=== PATIENT | female | born 1975 | race American Indian/Alaskan Native ===

== ENCOUNTER 2016-09-25 08:38 | Inpatient (IN) | payer MEDICARE ==
--- NOTE | 2016-09-20 10:50 | Anesthesia Consultation ---
Anesthesia Consult and Med Hx Date of service: 09/20/16 - Airway Anesthetic Teeth Evaluation: Good ROM Head & Neck: Adequate Mental/Hyoid Distance: Adequate Mallampati Class: Class III Intubation Access Assessment: Possibly Difficult - Pre-Operative Health Status ASA Pre-Surgery Classification: ASA3 Proposed Anesthetic Plan: Epidural, Spinal - Pulmonary Hx Smoking: Yes (1PPD x 5 years) Hx Asthma: No COPD: Yes Hx Pneumonia: Yes Hx Sleep Apnea: No - Cardiovascular System Hx Hypertension: No Hx Coronary Artery Disease: No - Central Nervous System Hx Seizures: No CVA: No Hx Back Pain: No Hx Psychiatric Problems: No - Gastrointestinal Hx Gastroesophageal Reflux Disease: No (Nausea with pain meds) - Endocrine Hx Renal Disease: No Hx Thyroid Disease: Yes (ENLARGED, NOT ON MEDS) - Hematic Hx Anemia: Yes Hx Sickle Cell Disease: Yes (LAST CRISIS JULY 24) - Other Systems Hx Cancer: No Hx Obesity: Yes (BMI 44, MORBID) - Additional Comments Anesthesia Medical History Comments: patient is on the pain meds for 3 years for sickle cell crisises and hip pain. Takes anti-herpes meds
[2016-09-20 11:25] LABS: Basophils % (Auto) 0.7 % (0.0-1.8); Eosinophils % (Auto) 2.5 % (0.0-4.3); Hemoglobin 11.7 gm/dl (10.1-14.3); Mean Corpuscular HGB Conc 32 % (30-34); Mean Corpuscular Volume 75 fl (79-97); Platelet Count 245 K/mm3 (140-440); Red Blood Count 4.79 M/mm3 (3.65-5.03); Red Cell Distribution Width 16.6 % (13.2-15.2); White Blood Count 11.7 K/mm3 (4.5-11.0)
[2016-09-20 11:26] LABS: Mean Corpuscular Hemoglobin 24 pg (28-32)
[2016-09-20 11:35] LABS: INR 1.14 (0.87-1.13)
[2016-09-20 11:36] LABS: Partial Thromboplastin Time 31.1 Sec. (24.2-36.6)
[2016-09-20 11:50] LABS: Alanine Aminotransferase 14 units/L (7-56); Albumin 3.9 g/dL (3.9-5); Albumin/Globulin Ratio 1.2 %; Alkaline Phosphatase 89 units/L (35-129); Anion Gap 18 mmol/L; Blood Urea Nitrogen 10 mg/dL (7-17); Calcium 9.2 mg/dL (8.4-10.2); Carbon Dioxide 22 mmol/L (22-30); Chloride 103.5 mmol/L (98-107); Glucose 115 mg/dL (65-100); Potassium 3.7 mmol/L (3.6-5.0); Sodium 140 mmol/L (137-145); Total Protein 7.1 g/dL (6.3-8.2)
--- NOTE | 2016-09-24 11:53 | Admit Criteria Form ---
Admission Criteria Documentation: AMBULATORY SURGERY EXCEPTION CRITERIA Ambulatory Surgery Exception Criteria ( Place 'X' for any and all applicable criteria): Surgery or procedure performed on ambulatory basis may require inpatient stay for[A] ANY ONE of the following(1)(2)(3)(4)(5)(6)(7)(8)(9): [X] I. A preoperative situation, condition, or finding that warrants inpatient stay as indicated by ANY ONE of the following: [] a) Inpatient care needed because of severity of a disease or condition rather than the surgery (eg, severe cardiac or respiratory disease, severe infection) (15) (16 ) (17) (18) [] b) Emergent procedure (eg, angioplasty for acute ischemia)(19) [] c) Complex surgical approach or situation as indicated by ANY ONE of the following(3): [] i) Open approach needed instead of usual endoscopic, transcatheter, or other less invasive procedure [] ii) Difficult approach because of previous operation [] iii) Airway monitoring required after open neck procedures(20)(21) [] iv) Large mass requiring unusually extensive dissection [] v) Additional complicating feature requiring inpatient care (eg, drain management)(22(23): [X] d) Major surgery in a pt with high anesthetic risk as indicated by ANY ONE of the following (2)(3)(5)(7)(8): [X] i) ASA risk class III or higher (severe systemic disease impairing function) [D] [] ii) Advanced age (eg, older than 85 years)(14)(24) [] iii) Symptomatic heart failure(25) [] iv) Symptomatic asthma or COPD(8)(21) [] v) Morbid obesity with hemodynamic or respiratory problems(20)( 21)(26)(27) [] vi) Obstructive sleep apnea(20)(21) [] vii) Former premature infants who are younger than 60 weeks [] viii) High risk for severe postoperative abnormalities (eg, severe postoperative hypocalcemia after parathyroidectomy for severe hyperparathyroidism)(27)( 28) [] ix) Unstable angina(25) [] e) Drug-related risk requiring inpatient stay as indicated by ANY ONE of the following(5)(10)(14)(32)(33) [] i) Procedure requires discontinuing drugs or other therapy (eg , antiarrhythmic medication, antiseizure medication), which necessitates inpatient observation or treatment.(18)(31) [] ii) Major surgery and high risk drug use as indicated by ANY ONE of the following: [] 1) Active abuse of cocaine or similar drug [] 2) Monoamine oxidase inhibitor use [] 3) Other drug identified as posing risk [] f) Inadequate outpatient care situation as indicated by ANY ONE of the following(5)(10)(14)(32)(33) [] i) Patient lives remote from medical facility and procedure has urgent complication potential, and temporary nearby residence cannot be arranged [] ii) Patient will have postprocedure incapacitation and inadequate assistance at home, or alternative level of care cannot be arranged. [] iii) Patient will have long general anesthesia or procedure side effect resolution time, and competent person to stay with patient on first postoperative night at home or alternative level of care cannot be arranged. []iv) Other inadequate outpatient situation that cannot be handled by other means [] II. A perioperative event, condition, or finding that warrants inpatient stay as indicated by ANY ONE of the following (1)(2)(3): [] a) Inadequate physiologic recovery: cardiovascular, respiratory, or hemodynamic status not normal or near preoperative baseline(18) [] b) Hemodynamic instability [] c) Patient not alert with near normal or baseline mental status [] d) Temperature not normal or as expected and not appropriate for outpatient treatment of condition [] e) Ambulatory or appropriate activity level status not yet achieved post procedure [E](34)(35)(36) [] f) Operative site not appropriate (eg, unexpected or excessive drainage or bleeding) [] g) Postoperative effects not resolved or adequately managed (eg, significant pain or vomiting not appropriate for outpatient or next level of care)(10)(12) [] h) Complicating features requiring inpatient care as indicated by ANY ONE of the following(37): [] i) Severe complications of procedure (eg, bowel injury, airway compromise, vascular injury,severe hemorrhage) [] ii) Extensive (eg, dissection far beyond usual scope of procedure ) or prolonged (eg, 120 minutes beyond usual) surgery needed requiring inpatient postoperative care [] iii) Conversion to an open or complex procedure that requires inpatient care (eg, open vs laparoscopic cholecystectomy, abdominal vs vaginal hysterectomy)(38) [] iv) Comorbid condition or test result identified during or post procedure that requires inpatient care (7) [] v) Malignant hyperthermia(30) [] vi) Other complicating feature requiring inpatient care(22)(23) Inpatient stay may be needed until ALL of the following are present (1)(2)(3)(4) (5)(6)(10)(14)(33)(40): []a) Physiologic recovery: cardiovascular, respiratory, and hemodynamic status normal or near preoperative baseline []b) Hemodynamic stability []c) Patient alert, with near normal or baseline mental status []d) Temperature appropriate: patient afebrile or temperature appropriate for outpt treatment of condition []e) Activity level appropriate: ambulatory or appropriate activity level post procedure []f) Operative site appropriate as indicated by ALL of the following: []i) Site dry or with expected drainage []ii) Any blood noted is as expected for procedure. []g) Postoperative effects resolved or managed as indicated by ALL of the following: []i) Pain management appropriate for outpatient (or next level of) care(10) []ii) Minimal nausea and vomiting: if present, successfully treated with oral medication(12) []iii) Headache, dizziness, or drowsiness (if present) are mild. []h) Voiding status acceptable as indicated by ANY ONE of the following: []i) Voiding spontaneously []ii) No voiding but instructions given for follow-up in 6 to 8 hours []iii) Urinary catheter in place, and instructions given for follow-up []i) Complicating features requiring inpatient care manageable at a lower level of care(37) []j) Comorbid conditions manageable at a lower level of care(37) The original [employer] content created by [employer] has been revised. The portions of the content which have been revised are identified through the use of italic text or in bold, and [facility] [employer] has neither reviewed nor approved the modified material. All other unmodified content is copyright [employer]. Please see references footnoted in the original [employer] edition 2016 Admission Criteria Met: Yes
--- NOTE | 2016-09-24 17:17 | History and Physical Report ---
History of Present Illness Date of examination: 09/24/16 Date of admission: 09/25/16 Chief complaint: 41-year-old with left hip pain, groin pain duration year, progressively worsening. Evaluation confirming avascular necrosis with DJD. Being admitted for total hip arthroplasty. Past History Past Medical History: anemia Medications and Allergies Allergies Allergy/AdvReac Type Severity Reaction Status Date / Time No Known Allergies Allergy Unverified 10/13/13 13:21 Home Medications Medication Instructions Recorded Confirmed Last Taken Type Folic Acid [Folvite] 1 mg PO QDAY 10/13/13 09/18/16 08/15/14 History oxyCODONE /ACETAMINOPHEN [Percocet 1 tab PO Q6HR PRN #10 tablet 10/13/1308/15/14 Rx 5/325 mg] Promethazine [Phenergan] 25 mg PO Q6H PRN 08/16/14 09/18/16 08/15/14 History valACYclovir [Valtrex] 500 mg PO DAILY 08/16/14 09/18/16 08/15/14 History Active Meds: Active Medications Celecoxib (Celebrex) 200 mg PO PREOP NR Stop: 09/25/16 23:59 Famotidine (Pepcid) 20 mg IV PREOP NR Stop: 09/25/16 23:59 Gabapentin (Neurontin) 300 mg PO PREOP NR Stop: 09/25/16 23:59 Vancomycin HCl (Vancomycin/Ns 1 Gm/250 Ml) 1 gm in 250 mls @ 166.667 mls/hr IV PREOP NR PRN Reason: Protocol Stop: 09/25/16 23:00 Sodium Chloride (Nacl 0.9% 1000 Ml) 1,000 mls @ 125 mls/hr IV DIRECT [facility] Stop: 09/25/16 23:59 Midazolam HCl (Versed) 2 mg IV PREOP NR Stop: 09/25/16 23:59 Scopolamine (Transderm-Scop) 1 each TD PREOP NR Stop: 09/25/16 23:59 Review of Systems All systems: negative Exam - Constitutional General appearance: Present: no acute distress, well-nourished - EENT Eyes: Present: PERRL ENT: hearing intact, clear oral mucosa - Neck Neck: Present: supple, normal ROM - Respiratory Respiratory effort: normal Respiratory: bilateral: CTA - Cardiovascular Heart Sounds: Present: S1 & S2. Absent: rub, click - Extremities Extremities: pulses symmetrical, No edema Extremity abnormal: other (Left left hip with painful flexion, 80. Pain with flexion adduction, internal rotation. Pain along the anterior hip and exercise , no leg length inequality, abductor strength grade 5. No neurovascular deficit.) Peripheral Pulses: within normal limits - Abdominal General gastrointestinal: Present: soft, non-tender, non-distended, normal bowel sounds Female genitourinary: Present: normal - Integumentary Integumentary: Present: clear, warm, dry - Musculoskeletal Musculoskeletal: gait normal, strength equal bilaterally - Psychiatric Psychiatric: appropriate mood/affect, intact judgment & insight - Neurologic Neurologic: CNII-XII intact, moves all extremities Results - Labs CBC & Chem 7: 09/20/16 10:35 09/20/16 10:35 Assessment and Plan - Patient Problems (1) Arthritis of left hip Status: Chronic Plan to address problem: left total hip arthroplasty (2) Avascular necrosis of bone of left hip Status: Chronic Plan to address problem: total hip arthroplasty left
[~2016-09-25 08:38] MED LIST: NACL 0.9% 1000 ML 1,000 ML IV SCH; NACL 0.9% IR ONE; NEOSPORIN GU IR ONE; NEURONTIN PO NR; PEPCID IV NR; TRANSDERM-SCOP TD NR; VANCOMYCIN/NS 1 GM/250 ML 1 GM/250 ML BAG IV NR; VERSED IV NR
[2016-09-25] MEDS ORDERED: XYLOCAINE MPF 2% ONE (10:51)
[2016-09-25] MEDS ORDERED: ZOFRAN ONE (10:51)
[2016-09-25] MEDS ORDERED: DILAUDID ONE (10:52)
[2016-09-25] MEDS ORDERED: DIPRIVAN 10 MG/ML IV ONE (10:52)
[2016-09-25] MEDS ORDERED: MORPHINE ONE (10:59)
[2016-09-25] MEDS ORDERED: DECADRON ONE (10:59)
[2016-09-25] MEDS ORDERED: MARCAINE-EPI 0.25%-1:200,000 INFILTRATI ONE (10:59)
[2016-09-25] MEDS ORDERED: CLONIDINE 1,000 MCG/10 ML VIAL EP ONE (10:59)
[2016-09-25] MEDS ORDERED: ACD-A 500 ML IV ONE (12:10)
[2016-09-25] MEDS ORDERED: ACD-A IV ONE (12:18)
[2016-09-25] MEDS ORDERED: NACL 0.9% IR ONE ×2 (12:18)
[2016-09-25] MEDS ORDERED: NEOSPORIN GU IR ONE (12:18)
[2016-09-25] MEDS ORDERED: ePHEDrine SULFATE ONE ×2 (12:47→13:40)
[2016-09-25] MEDS ORDERED: NACL 0.9% 1000 ML 2,000 ML ONE (13:54)
--- NOTE | 2016-09-25 14:16 | Procedure Note ---
Date of procedure: 09/25/16 Pre-op diagnosis: AVBN/DJD left hip Post-op diagnosis: same Procedure: Left total hip/[place] non cemented Anesthesia: GETA, regional Surgeon: KENDALL LARSON Estimated blood loss: other (300ml/ 125ml packed cells to pt) Pathology: list Specimen disposition: to lab Condition: stable Disposition: PACU
--- NOTE | 2016-09-25 14:45 | Post Anesthesia Evaluation ---
- Post Anesthesia Evaluation Patient Participated: Yes Airway Patent: Yes Stable Respiratory Function: Yes Nausea/Vomiting: No Temp > 96.8F: Yes Pain Manageable: Yes Adequeate Hydration: Yes Anesthesia Complications: No Block Receding Appropriately: Yes Patient on Ventilator: No
--- NOTE | 2016-09-25 15:38 | XRay Report ---
Operative left hip: AP view demonstrates a total hip replacement. The acetabular and femoral components appear well positioned. No apparent complication noted.
--- NOTE | 2016-09-25 16:20 | Operative Report ---
PREOPERATIVE DIAGNOSES: Degenerative joint disease, left hip, avascular necrosis, stage 3-4. POSTOPERATIVE DIAGNOSES: Degenerative joint disease, left hip, avascular necrosis, stage 3-4. OPERATIVE PROCEDURE: Left hip total hip arthroplasty, Sharif, noncemented. SURGEON: Mihaela Childs MD WOOD MACHINIST: Stephanie Rhaodes CSA. ANESTHESIA: Spinal with general. BLOOD LOSS: Approximately 300 mL of which 125 mL packed cells to the patient using the Cell [employer] system. PROCEDURE IN DETAIL: The patient was taken to surgery suite, satisfactory analgesia obtained with spinal anesthetic supplemented with general sedation and the patient was positioned over the lateral position. Left hip area prepped and satisfactorily draped. The correct patient, procedure, and sites were confirmed. Incision was made starting at a 0.5 cm distal to the tip of the greater trochanter incision towards the posterior inferior iliac spine. Incision was deepened to the subcutaneous and the gluteus was split and was retracted proximally and distally. Joint capsule was then incised along the trochanteric line and capsulotomy was done, the hip joint was identified and was dislocated posteriorly. Femoral head appeared with cartilage flap avulsed with stage 4 changes to the femoral head and with superimposed DJD. The femoral head was resected at 0.1 cm proximal to the lesser trochanter. Medullary canal was reamed and broached. The proximal canal appeared extremely narrow; therefore, using the [employer] flexible reamer, the medullary canal was reamed to 10 mm diameter as to allow the distal tip of the femoral stem. Canal was then broached to press fit size 5 which appeared giving optimal fit. The acetabulum was visualized, labrum was excised and the acetabulum was reamed to subchondral bone using progressively increasing in size reamers, last reaming carried out at50 mm diameter, which appeared giving subchondral reaming. Following irrigation of the wound, a 50 mm acetabular shell was press fitted at approximately 45 degree abduction and 20 degree anteversion. Through the superior quadrant, two drill holes were made, cancellous screw size 6.5 mm diameter length 30 and 25 mm each were applied thereby stabilizing the acetabular shell. This was then coupled on an acetabular liner with high density polyethylene to provide 36 mm inside diameter and 5 degree posterosuperior augmentation and was locked in place. The trial femoral component was placed. Hip was reduced using the 36 mm 0 neck length head which appeared giving equalization of leg length and appeared stable both anteriorly and posterior. The trial head was then exchanged for a ceramic head, 36 mm diameter, 0 neck length and the hip was then reduced. Following irrigation, the wound was closed in layers in the standard fashion using 0 Vicryl, 2-0 Vicryl, and berta. At the completion of procedure, counts were accurate. Total blood loss approximately 300 mL of which 125 mL packed cell to the patient using the Cell Sa[employer] system. JOB# [id number] NATALIYA/GOMEZ NEVAREZ
[2016-09-25] MEDS ORDERED: MORPHINE IV PRN ×2 (16:46)
[2016-09-25] MEDS ORDERED: SODIUM CHLORIDE FLUSH SYRINGE 10 ML IV PRN (16:46)
[2016-09-25] MEDS ORDERED: PHENERGAN PR PRN (16:46)
[2016-09-25] MEDS ORDERED: AMBIEN PO PRN (16:46)
[2016-09-25] MEDS: DILAUDID IV PRN (17:51)
[2016-09-25] MEDS: BENADRYL IV PRN (17:51)
[2016-09-25] MEDS: ZOFRAN IV PRN (17:52)
[2016-09-25] MEDS: ANCEF/NS 1 GM/50 ML 1 GM/50 ML BAG IV SCH (17:52)
[2016-09-25] MEDS: ASPIRIN PO SCH (21:51)
[2016-09-25] MEDS: COLACE PO SCH (21:51)
--- NOTE | 2016-09-25 22:52 | Consultation ---
History of Present Illness - Reason for Consult Consult date: 09/25/16 SCD/pain crisis/post surgical Requesting physician: KENDALL LARSON - History of Present Illness Thank you for this consult, patient seen/examined, record reviewed, case d/w patient.. she is s/p hip surgery. for avascular necrosis. She has hx beta thallasemia major. Past History Past Medical History: anemia Social history: no significant social history Family history: no significant family history Medications and Allergies Allergies Allergy/AdvReac Type Severity Reaction Status Date / Time No Known Allergies Allergy Unverified 10/13/13 13:21 Home Medications Medication Instructions Recorded Confirmed Last Taken Type Folic Acid [Folvite] 1 mg PO QDAY 10/13/13 09/18/16 09/18/16 History oxyCODONE /ACETAMINOPHEN [Percocet 1 tab PO Q6HR PRN #10 tablet 10/13/1309/18/16 Rx 5/325 mg] Promethazine [Phenergan] 25 mg PO Q6H PRN 08/16/14 09/18/16 09/18/16 History valACYclovir [Valtrex] 500 mg PO DAILY 08/16/14 09/18/16 09/18/16 History Active Meds: Active Medications Acetaminophen (Tylenol) 650 mg PO Q4H PRN PRN Reason: Pain MILD(1-3)/Fever >100.5/PALACIOS Aspirin (Aspirin) 325 mg PO BID [facility] Last Admin: 09/25/16 21:51 Dose: 325 mg Celecoxib (Celebrex) 100 mg PO BID [facility] Last Admin: 09/25/16 21:50 Dose: 100 mg Diphenhydramine HCl (Benadryl) 12.5 mg IV Q4H PRN PRN Reason: Itching Last Admin: 09/25/16 17:51 Dose: 12.5 mg Docusate Sodium (Colace) 100 mg PO BID [facility] Last Admin: 09/25/16 21:51 Dose: 100 mg Enoxaparin Sodium (Lovenox) 40 mg SUB-Q QDAY [facility] Folic Acid (Folvite) 1 mg PO QDAY [facility] Hydromorphone HCl (Dilaudid) 2 mg IV Q4HR PRN PRN Reason: Severe Pain Last Admin: 09/25/16 17:51 Dose: 2 mg Sodium Chloride (Nacl 0.9% 1000 Ml) 1,000 mls @ 125 mls/hr IV DIRECT SADAF Stop: 09/25/16 23:59 Last Admin: 09/25/16 10:50 Dose: 125 mls/hr Cefazolin Sodium (Ancef/Ns 1 Gm/50 Ml) 1 gm in 50 mls @ 100 mls/hr IV Q8H [facility] Stop: 09/26/16 01:15 Last Admin: 09/25/16 17:52 Dose: 100 mls/hr Ketorolac Tromethamine (Toradol) 30 mg IV Q6H PRN PRN Reason: Pain, Moderate (4-6) Stop: 09/30/16 16:45 Multivitamins (Theragran Tab) 1 each PO QDAY [facility] Ondansetron HCl (Zofran) 4 mg IV Q8H PRN PRN Reason: Nausea And Vomiting Last Admin: 09/25/16 17:52 Dose: 4 mg Oxycodone HCl (Oxycontin) 10 mg PO Q12HR [facility] Promethazine HCl (Phenergan) 25 mg [place] Q6H PRN PRN Reason: Nausea And Vomiting Last Admin: 09/25/16 22:05 Dose: 25 mg Sodium Chloride (Sodium Chloride Flush Syringe 10 Ml) 10 ml IV PRN PRN PRN Reason: LINE FLUSH Valacyclovir HCl (Valtrex) 500 mg PO DAILY [facility] Zolpidem Tartrate (Ambien) 5 mg PO QHS PRN PRN Reason: Sleep Review of Systems Constitutional: chronic pain Breasts: deferred Musculoskeletal: low back pain Exam - Constitutional Vitals: Temp Pulse Resp BP Pulse Ox 98.1 F 97 H 18 98/68 97 09/25/16 19:35 09/25/16 19:35 09/25/16 19:35 09/25/16 19:35 09/25/16 22:05 General appearance: Present: mild distress, well-nourished - EENT Eyes: Present: PERRL ENT: hearing intact, clear oral mucosa - Neck Neck: Present: supple, normal ROM - Respiratory Respiratory effort: normal Respiratory: bilateral: CTA - Cardiovascular Heart Sounds: Present: S1 & S2. Absent: rub, click - Extremities Extremities: pulses symmetrical, No edema Peripheral Pulses: within normal limits - Abdominal General gastrointestinal: Present: soft, non-tender, non-distended, normal bowel sounds Female genitourinary: Present: deferred - Rectal Rectal Exam: deferred - Integumentary Integumentary: Present: clear, warm, dry - Musculoskeletal Musculoskeletal: gait normal, strength equal bilaterally - Psychiatric Psychiatric: appropriate mood/affect, intact judgment & insight - Neurologic Neurologic: CNII-XII intact, moves all extremities Results - Labs CBC & Chem 7: 09/20/16 10:35 09/20/16 10:35 Assessment and Plan - Patient Problems (1) Arthritis of left hip Current Visit: Yes Status: Chronic Plan to address problem: Follow post surgical management. (2) Avascular necrosis of bone of left hip Current Visit: Yes Status: Chronic Plan to address problem: Post surgical pain management., post surgical anticoagulation.
[2016-09-25] MEDS: TORADOL IV PRN (23:34)
[2016-09-26] MEDS: ANCEF/NS 1 GM/50 ML 1 GM/50 ML BAG IV SCH (00:32)
[2016-09-26] MEDS: BENADRYL IV PRN ×2 (03:54→23:26)
[2016-09-26 04:48] LABS: Hemoglobin 8.9 gm/dl (10.1-14.3)
[2016-09-26 05:09] LABS: Anion Gap 18 mmol/L; BUN/Creatinine Ratio 14.28; Blood Urea Nitrogen 10 mg/dL (7-17); Calcium 7.6 mg/dL (8.4-10.2); Carbon Dioxide 20 mmol/L (22-30); Chloride 104.9 mmol/L (98-107); Glucose 129 mg/dL (65-100); Potassium 4.5 mmol/L (3.6-5.0); Sodium 138 mmol/L (137-145)
[2016-09-26] MEDS: NACL 0.9% 1000 ML 1,000 ML IV SCH ×4 (06:05→17:42)
[2016-09-26] MEDS: OxyCONTIN PO SCH ×2 (07:47→10:00)
--- NOTE | 2016-09-26 08:03 | Progress Note ---
Assessment and Plan pOST OP 1 ALERT ORIENTATED IN nad WOUND OK, CHEST CLEAR, SOFT ABDOMEN DOING WELL Subjective Date of service: 09/26/16 Objective Vital signs: Vital Signs - 12hr 09/25/16 09/25/16 09/25/16 21:15 22:00 22:05 Temperature Pulse Rate [ Right] Respiratory Rate Blood Pressure [Right Arm] O2 Sat by Pulse 97 95 97 Oximetry 09/26/16 07:49 Temperature 98 F Pulse Rate [ 52 L Right] Respiratory 18 Rate Blood Pressure 93/52 [Right Arm] O2 Sat by Pulse 99 Oximetry - Labs CBC & BMP: 09/26/16 04:26 09/26/16 04:26 Labs: Abnormal lab results 09/26/16 09/26/16 Range/Units 04:26 04:26 Hgb 8.9 L (10.1-14.3) gm/dl Hct 28.0 L (30.3-42.9) % Carbon Dioxide 20 L (22-30) mmol/L Glucose 129 H (65-100) mg/dL Calcium 7.6 L (8.4-10.2) mg/dL
[2016-09-26] MEDS: THERAGRAN Tab PO SCH (10:19)
[2016-09-26] MEDS: ASPIRIN PO SCH ×2 (10:19→23:28)
[2016-09-26] MEDS: FOLVITE PO SCH (10:20)
[2016-09-26] MEDS: COLACE PO SCH ×2 (10:20→23:29)
[2016-09-26] MEDS: LOVENOX SUB-Q SCH (10:22)
--- NOTE | 2016-09-26 10:57 | Progress Note ---
Subjective Date of service: 09/26/16 Interval history: 1st POD after total hip arthroplasty Patient is in the bed, relatively comfortable. Pain is mostly controlled with pain meds. Prepare to be ambulated. No nausea or vomiting. No anesthesia complications Objective - Constitutional Vitals: Vital Signs - 12hr 09/26/16 09/26/16 07:49 08:00 Temperature 98 F 98.6 F Pulse Rate [ 52 L 94 H Right] Respiratory 18 18 Rate Blood Pressure 93/52 88/60 [Right Arm] O2 Sat by Pulse 99 95 Oximetry - Labs CBC & Chem 7: 09/26/16 04:26 09/26/16 04:26 Labs: Abnormal lab results 09/26/16 09/26/16 Range/Units 04:26 04:26 Hgb 8.9 L (10.1-14.3) gm/dl Hct 28.0 L (30.3-42.9) % Carbon Dioxide 20 L (22-30) mmol/L Glucose 129 H (65-100) mg/dL Calcium 7.6 L (8.4-10.2) mg/dL
--- NOTE | 2016-09-26 13:34 | Consultation ---
History of Present Illness - Reason for Consult Consult date: 09/26/16 - History of Present Illness Patient seen/examined, labs reviewed, case d/w her. Will try her port for use. will also bolus NS, and maintenance fluid to keep BP up. Past History Past Medical History: anemia Social history: no significant social history Family history: no significant family history Medications and Allergies Allergies Allergy/AdvReac Type Severity Reaction Status Date / Time No Known Allergies Allergy Unverified 10/13/13 13:21 Home Medications Medication Instructions Recorded Confirmed Last Taken Type Folic Acid [Folvite] 1 mg PO QDAY 10/13/13 09/18/16 09/18/16 History oxyCODONE /ACETAMINOPHEN [Percocet 1 tab PO Q6HR PRN #10 tablet 10/13/1309/18/16 Rx 5/325 mg] Promethazine [Phenergan] 25 mg PO Q6H PRN 08/16/14 09/18/16 09/18/16 History valACYclovir [Valtrex] 500 mg PO DAILY 08/16/14 09/18/16 09/18/16 History Active Meds: Active Medications Acetaminophen (Tylenol) 650 mg PO Q4H PRN PRN Reason: Pain MILD(1-3)/Fever >100.5/PALACIOS Aspirin (Aspirin) 325 mg PO BID [facility] Last Admin: 09/26/16 10:19 Dose: 325 mg Celecoxib (Celebrex) 100 mg PO BID [facility] Last Admin: 09/26/16 10:19 Dose: 100 mg Diphenhydramine HCl (Benadryl) 12.5 mg IV Q4H PRN PRN Reason: Itching Last Admin: 09/26/16 03:54 Dose: 12.5 mg Docusate Sodium (Colace) 100 mg PO BID [facility] Last Admin: 09/26/16 10:20 Dose: 100 mg Enoxaparin Sodium (Lovenox) 40 mg SUB-Q QDAY [facility] Last Admin: 09/26/16 10:22 Dose: 40 mg Folic Acid (Folvite) 1 mg PO QDAY [facility] Last Admin: 09/26/16 10:20 Dose: 1 mg Hydromorphone HCl (Dilaudid) 2 mg IV Q4HR PRN PRN Reason: Severe Pain Last Admin: 09/25/16 17:51 Dose: 2 mg Sodium Chloride (Nacl 0.9% 1000 Ml) 1,000 mls @ 125 mls/hr IV DIRECT [facility] Last Admin: 09/26/16 13:12 Dose: 125 mls/hr Ketorolac Tromethamine (Toradol) 30 mg IV Q6H PRN PRN Reason: Pain, Moderate (4-6) Stop: 09/30/16 16:45 Last Admin: 09/25/16 23:34 Dose: 30 mg Multivitamins (Theragran Tab) 1 each PO QDAY [facility] Last Admin: 09/26/16 10:19 Dose: 1 each Ondansetron HCl (Zofran) 4 mg IV Q8H PRN PRN Reason: Nausea And Vomiting Last Admin: 09/25/16 17:52 Dose: 4 mg Oxycodone HCl (Oxycontin) 10 mg PO Q12HR [facility] Last Admin: 09/26/16 10:00 Dose: Not Given Promethazine HCl (Phenergan) 25 mg [place] Q6H PRN PRN Reason: Nausea And Vomiting Last Admin: 09/25/16 22:05 Dose: 25 mg Sodium Chloride (Sodium Chloride Flush Syringe 10 Ml) 10 ml IV PRN PRN PRN Reason: LINE FLUSH Valacyclovir HCl (Valtrex) 500 mg PO DAILY [facility] Zolpidem Tartrate (Ambien) 5 mg PO QHS PRN PRN Reason: Sleep Review of Systems Constitutional: chronic pain Musculoskeletal: low back pain Exam - Constitutional Vitals: Temp Pulse Resp BP Pulse Ox 98.6 F 94 H 18 88/60 95 09/26/16 08:00 09/26/16 08:00 09/26/16 08:00 09/26/16 08:00 09/26/16 08:00 General appearance: Present: mild distress, well-nourished - EENT Eyes: Present: PERRL ENT: hearing intact, clear oral mucosa - Neck Neck: Present: supple, normal ROM - Respiratory Respiratory effort: normal Respiratory: bilateral: CTA - Cardiovascular Heart Sounds: Present: S1 & S2. Absent: rub, click - Extremities Extremities: pulses symmetrical, No edema Peripheral Pulses: within normal limits - Abdominal General gastrointestinal: Present: soft, non-tender, non-distended, normal bowel sounds Female genitourinary: Present: deferred - Rectal Rectal Exam: deferred - Integumentary Integumentary: Present: clear, warm, dry - Musculoskeletal Musculoskeletal: gait normal, strength equal bilaterally - Psychiatric Psychiatric: appropriate mood/affect, intact judgment & insight - Neurologic Neurologic: CNII-XII intact, moves all extremities Results - Labs CBC & Chem 7: 09/26/16 04:26 09/26/16 04:26 Labs: Abnormal lab results 09/26/16 09/26/16 Range/Units 04: 04:26 Hgb 8.9 L (10.1-14.3) gm/dl Hct 28.0 L (30.3-42.9) % Carbon Dioxide 20 L (22-30) mmol/L Glucose 129 H (65-100) mg/dL Calcium 7.6 L (8.4-10.2) mg/dL Assessment and Plan - Patient Problems (1) Arthritis of left hip Current Visit: Yes Status: Chronic Plan to address problem: Follow post surgical management. (2) Avascular necrosis of bone of left hip Current Visit: Yes Status: Chronic Plan to address problem: Post surgical pain management., post surgical anticoagulation.
[2016-09-26] MEDS ORDERED: PERCOCET 5/325 PO PRN (17:07)
[2016-09-26] MEDS: VALTREX PO SCH (17:41)
[2016-09-26] MEDS: ULTRAM PO PRN (20:45)
[2016-09-26] MEDS: DILAUDID IV PRN (23:21)
[2016-09-27] MEDS: NACL 0.9% 1000 ML 1,000 ML IV SCH ×2 (00:08→08:38)
[2016-09-27] MEDS: PROVENTIL IH SCH ×2 (06:29→09:49)
[2016-09-27] MEDS ORDERED: MUCOMYST INHALATION INHALATION SCH (08:00)
[2016-09-27] MEDS: BENADRYL IV PRN ×2 (08:34→18:08)
[2016-09-27] MEDS: DILAUDID IV PRN ×2 (08:35→18:07)
--- NOTE | 2016-09-27 10:04 | XRay Report ---
Portable chest: SOB. There is diffuse alveolar opacities throughout both lungs with air bronchograms. The heart is normal in size. An [id number]-[id number] is noted on the right entering the jugular vein with the tip in the upper SVC. No prior study for comparison. Impression: Diffuse alveolar opacities. Possibilities would include pneumonia and noncardiac pulmonary edema.
[2016-09-27 10:45] LABS: ISTAT Base Excess -5; ISTAT HCO3 21.5; ISTAT PCO2 45.3 (35-45); ISTAT PH 7.283 (7.35-7.45); ISTAT PO2 79 (80-105); ISTAT SO2 94; ISTAT TCO2 23
[2016-09-27] MEDS: FOLVITE PO SCH (11:44)
[2016-09-27] MEDS: ASPIRIN PO SCH ×2 (11:44→21:54)
[2016-09-27] MEDS: THERAGRAN Tab PO SCH (11:44)
[2016-09-27] MEDS: VALTREX PO SCH (11:45)
[2016-09-27] MEDS: COLACE PO SCH ×2 (11:45→21:54)
[2016-09-27] MEDS: LOVENOX SUB-Q SCH (11:45)
--- NOTE | 2016-09-27 13:04 | Consultation ---
History of Present Illness Consult date: 09/27/16 Requesting physician: TINY PEÑA Reason for consult: other (Acute Hypoxemic Respiratory Failure) History of present illness: PULMONARY/CCM CONSULT NOTE (Full dictation # [id number]) Please see dictated notes for full details Past History Past Medical History: anemia Social history: no significant social history Family history: no significant family history Medications and Allergies Allergies Allergy/AdvReac Type Severity Reaction Status Date / Time No Known Allergies Allergy Unverified 10/13/13 13:21 Home Medications Medication Instructions Recorded Confirmed Last Taken Type Folic Acid [Folvite] 1 mg PO QDAY 10/13/13 09/18/16 09/18/16 History oxyCODONE /ACETAMINOPHEN [Percocet 1 tab PO Q6HR PRN #10 tablet 10/13/1309/18/16 Rx 5/325 mg] Promethazine [Phenergan] 25 mg PO Q6H PRN 08/16/14 09/18/16 09/18/16 History valACYclovir [Valtrex] 500 mg PO DAILY 08/16/14 09/18/16 09/18/16 History Active Meds: Active Medications Acetaminophen (Tylenol) 650 mg PO Q4H PRN PRN Reason: Pain MILD(1-3)/Fever >100.5/PALACIOS Acetylcysteine (Mucomyst Inhalation) 200 mg INHALATION Q12HRT [facility] Last Admin: 09/27/16 09:49 Dose: 200 mg Albuterol (Proventil) 2.5 mg IH Q8HRT [facility] Last Admin: 09/27/16 09:49 Dose: 2.5 mg Aspirin (Aspirin) 325 mg PO BID [facility] Last Admin: 09/27/16 11:44 Dose: 325 mg Celecoxib (Celebrex) 100 mg PO BID [facility] Last Admin: 09/27/16 11:45 Dose: 100 mg Diphenhydramine HCl (Benadryl) 12.5 mg IV Q4H PRN PRN Reason: Itching Last Admin: 09/27/16 08:34 Dose: 12.5 mg Docusate Sodium (Colace) 100 mg PO BID [facility] Last Admin: 09/27/16 11:45 Dose: 100 mg Enoxaparin Sodium (Lovenox) 40 mg SUB-Q QDAY [facility] Last Admin: 09/27/16 11:45 Dose: 40 mg Folic Acid (Folvite) 1 mg PO QDAY [facility] Last Admin: 09/27/16 11:44 Dose: 1 mg Hydromorphone HCl (Dilaudid) 2 mg IV Q4HR PRN PRN Reason: Severe Pain Last Admin: 09/27/16 08:35 Dose: 2 mg Sodium Chloride (Nacl 0.9% 1000 Ml) 1,000 mls @ 125 mls/hr IV DIRECT [facility] Last Admin: 09/27/16 08:38 Dose: 125 mls/hr Ketorolac Tromethamine (Toradol) 30 mg IV Q6H PRN PRN Reason: Pain, Moderate (4-6) Stop: 09/30/16 16:45 Last Admin: 09/25/16 23:34 Dose: 30 mg Multivitamins (Theragran Tab) 1 each PO QDAY [facility] Last Admin: 09/27/16 11:44 Dose: 1 each Ondansetron HCl (Zofran) 4 mg IV Q8H PRN PRN Reason: Nausea And Vomiting Last Admin: 09/25/16 17:52 Dose: 4 mg Oxycodone/Acetaminophen (Percocet 5/325) 1 tab PO Q6H PRN PRN Reason: Pain, Moderate (4-6) Promethazine HCl (Phenergan) 25 mg [place] Q6H PRN PRN Reason: Nausea And Vomiting Last Admin: 09/25/16 22:05 Dose: 25 mg Sodium Chloride (Sodium Chloride Flush Syringe 10 Ml) 10 ml IV PRN PRN PRN Reason: LINE FLUSH Tramadol HCl (Ultram) 50 mg PO Q4H PRN PRN Reason: Pain, Moderate (4-6) Last Admin: 09/26/16 20:45 Dose: 50 mg Valacyclovir HCl (Valtrex) 500 mg PO DAILY [facility] Last Admin: 09/27/16 11:45 Dose: 500 mg Zolpidem Tartrate (Ambien) 5 mg PO QHS PRN PRN Reason: Sleep Physical Examination Vital signs: Vital Signs Temp Pulse Resp BP Pulse Ox 98.6 F 86 20 116/80 99 09/25/16 10:25 09/25/16 10:25 09/25/16 10:25 09/25/16 10:25 09/25/16 10:25 Results - Laboratory Findings CBC and BMP: 09/26/16 04:26 09/26/16 04:26 ABG POC ABG pH 7.283 (7.35-7.45) L 09/27/16 10:26 POC ABG pCO2 45.3 (35-45) H 09/27/16 10:26 POC ABG pO2 79 (80-105) L 09/27/16 10:26 POC ABG HCO3 21.5 09/27/16 10:26 POC ABG Total CO2 23 09/27/16 10:26 POC ABG O2 Sat 94 09/27/16 10:26 PT/INR, D-dimer PT 14.5 Sec. (12.2-14.9) 09/20/16 10:35 INR 1.14 (0.87-1.13) H 09/20/16 10:35 Abnormal lab findings: Abnormal Labs 09/20/16 09/20/16 09/20/16 10:35 10:35 10:35 WBC 11.7 H Hgb Hct MCV 75 L MCH 24 L RDW 16.6 H INR 1.14 H POC ABG pH POC ABG pCO2 POC ABG pO2 Carbon Dioxide Creatinine 0.5 L Glucose 115 H Calcium Total Bilirubin 2.0 H 09/26/16 09/26/16 09/27/16 04:26 04:26 10:26 WBC Hgb 8.9 L Hct 28.0 L MCV MCH RDW INR POC ABG pH 7.283 L POC ABG pCO2 45.3 H POC ABG pO2 79 L Carbon Dioxide 20 L Creatinine Glucose 129 H Calcium 7.6 L Total Bilirubin
--- NOTE | 2016-09-27 14:34 | Progress Note ---
Assessment and Plan - Patient Problems (1) Arthritis of left hip Current Visit: Yes Status: Deleted (2) Avascular necrosis of bone of left hip Current Visit: Yes Status: Chronic Plan to address problem: Continue with progressive ambulation, weightbearing as tolerated and DVT prophylaxis. Continue pulmonary/medical management of shortness of breath, pulmonary condition. Once medical condition is stabilized, she may be discharged home with a walker, elevated toilet seat, DVT prophylaxis and outpatient rehabilitation program. Followup in 7-10 days Subjective Date of service: 09/27/16 Interval history: status post total hip arthroplasty, had complaints of shortness of breath, being evaluated by pulmonary. Objective Vital signs: Vital Signs - 12hr 09/27/16 09/27/16 09/27/16 02:50 04:32 06:34 Temperature 99.0 F Pulse Rate Pulse Rate [ 110 H Anterior Bilateral Throughout] Pulse Rate [ Apical] Pulse Rate [ 132 H Right] Respiratory 20 Rate Respiratory 22 Rate [Anterior Bilateral Throughout] Blood Pressure 110/68 [Right Arm] O2 Sat by Pulse 88 93 Oximetry 09/27/16 09/27/16 09/27/16 06:35 08:00 09:49 Temperature 99.6 F Pulse Rate Pulse Rate [ 137 H 129 H Anterior Bilateral Throughout] Pulse Rate [ 128 H Apical] Pulse Rate [ Right] Respiratory 20 Rate Respiratory 28 H 20 Rate [Anterior Bilateral Throughout] Blood Pressure 127/78 [Right Arm] O2 Sat by Pulse 95 Oximetry 09/27/16 09/27/16 10:00 11:48 Temperature Pulse Rate 118 H Pulse Rate [ 135 H Anterior Bilateral Throughout] Pulse Rate [ Apical] Pulse Rate [ Right] Respiratory 35 H Rate Respiratory 20 Rate [Anterior Bilateral Throughout] Blood Pressure [Right Arm] O2 Sat by Pulse 99 Oximetry - Labs CBC & BMP: 09/28/16 10:47 09/28/16 10:47 Labs: Abnormal lab results 09/27/16 Range/Units 10:26 POC ABG pH 7.283 L (7.35-7.45) POC ABG pCO2 45.3 H (35-45) POC ABG pO2 79 L (80-105)
--- NOTE | 2016-09-27 14:34 | Discharge Summary ---
Providers - Providers Date of Admission: 09/25/16 10:13 Attending physician: KENDALL LARSON 09/25/16 00:01 Consult to Case Management [CONS] Routine Services Needed at Discharge: Home Health Services Physical Therapy Notified:: RADIOLOGY TECHNOLOGIST Consult to Physician [CONS] Routine Consulting Provider: TINY PEÑA Reason For Exam: for post op medical management Place consult to:: DR. PEÑA Notified:: DR. PEÑA Was contact made?: Yes If yes, spoke with:: DR. PEÑA Comment:: CONSULT COMPLETED - [place] Physical Therapy Evaluation and Treat [CONS] Routine Comment: Reason For Exam: s/p left total hip replacement Mode of Transport?: Wheelchair Weight bearing status?: Partial wt bearing Assistive devices?: Yes If so list: Walker 09/25/16 16:46 Consult to Case Management [CONS] Routine Services Needed at Discharge: Home Health Services Electronics Assembler Notified:: RADIOLOGY TECHNOLOGISTemployee communications manager Therapy Evaluation and Treat [CONS] Routine Comment: avoid flexion, add, int rotation of operative hip Reason For Exam: post op Weight bearing status?: Full wt bearing 09/27/16 07:01 Consult to Physician [CONS] Routine Consulting Provider: ROGER KNOTT Reason For Exam: DESATTING, DYSPNEA, COUGH Place consult to:: ANSWERING SERVICE Notified:: YES Phone number called:: [phone] Was contact made?: Yes If yes, spoke with:: theron/ Time called:: 07:10 Comment:: SPOKE WITH MCKENNA @ OFFICE @ 71 Primary care physician: TINY PEÑA Hospitalization Procedures: open reduction internal fixation fractured tibia, lateral malleolusand Hospital course: uneventful - Discharge Diagnoses (1) Arthritis of left hip Status: Deleted (2) Avascular necrosis of bone of left hip Status: Chronic Core Measure Documentation - Palliative Care Palliative Care/ Comfort Measures: Not Applicable Exam - Constitutional Vitals: Temp Pulse Resp BP Pulse Ox 99.6 F 118 H 35 H 127/78 99 09/27/16 08:00 09/27/16 11:48 09/27/16 11:48 09/27/16 08:00 09/27/16 11:48 Plan Activity: no driving until cleared by PCP, up only with assistance, fall precautions Diet: regular Wound: per your surgeon's advice Durable Medical Equipment Needed Upon Discharge: Crutches Follow up with: TINY PEÑA DO [Primary Care Provider] - 7 Days KENDALL LARSON MD [Staff Physician] - 7 Days
[2016-09-27] MEDS ORDERED: LASIX IV SCH (15:00)
[2016-09-27 15:31] LABS: Hematocrit 28.9 % (30.3-42.9); Hemoglobin 9.3 gm/dl (10.1-14.3); Mean Corpuscular HGB Conc 32 % (30-34); Mean Corpuscular Volume 75 fl (79-97); Platelet Count 206 K/mm3 (140-440); Red Blood Count 3.87 M/mm3 (3.65-5.03); Red Cell Distribution Width 18.7 % (13.2-15.2)
[2016-09-27 15:33] LABS: Mean Corpuscular Hemoglobin 24 pg (28-32); White Blood Count 39.3 K/mm3 (4.5-11.0)
[2016-09-27 15:56] LABS: Creatine Kinase 3575 units/L (30-135)
[2016-09-27] MEDS: DUONEB 0.5 MG-3 MG/3 ML SOLN IH SCH ×2 (16:17→20:06)
[2016-09-27] MEDS: PEPCID IV SCH (16:25)
[2016-09-27] MEDS: LEVAQUIN 750MG/150ML 750 MG/150 ML BAG IV SCH (16:26)
[2016-09-27 17:15] LABS: Basophils % (Manual) 0 % (0.0-1.8); Blastocytes % (Manual) 0 %; Eosinophils % (Manual) 0 % (0.0-4.3); Nucleated Red Blood Cells 0.5 % (0.0-0.9); Total Cells Counted Percent 1.5
[2016-09-27 17:16] LABS: Polychromasia Few; Target Cells 1+
[2016-09-27 17:17] LABS: Anisocytosis 1+; Diff Status Complete; Poikilocytosis 1+
[2016-09-27 18:18] LABS: ISTAT Base Excess 1; ISTAT HCO3 25.1; ISTAT PH 7.428 (7.35-7.45); ISTAT PO2 70 (80-105); ISTAT SO2 94; ISTAT TCO2 26
--- NOTE | 2016-09-27 20:01 | Event Note ---
Date: 09/27/16 Re-evaluated and discussed with RN on surgical floor - she reported increased work of breathing - lactate elevated - WBC 39k - delirious A&P: Septic ARDS picture (EF reported as WNL) No diastolic dysfunction Leucocytosis (no diarrhea or obvious abdominal tenderness or pain) - broaden AB's empirically - stop diuresis but use conservative volume management strategies - AM LFT's and BMP - keep on continuous BIPAP til AM and repeat ABG - trend lactate - Transfer to ICU - Intubate if does not improve - continue other care per attending / other consultants
[2016-09-27] MEDS: PULMICORT IH SCH (20:06)
[2016-09-27] MEDS: BROVANA NEBU IH SCH (20:06)
[2016-09-27] MEDS ORDERED: VANCOMYCIN/NS 1 GM/250 ML 1 GM/250 ML BAG IV ONE (20:08)
[2016-09-27] MEDS ORDERED: VANCOMYCIN PHARMACY TO DOSE IV SCH (21:00)
--- NOTE | 2016-09-27 21:45 | Consultation ---
History of Present Illness - Reason for Consult Consult date: 09/27/16 - History of Present Illness Patient seen/examined, she was transferred from the surgical floor to the ICU du to sepsis picture.She is alert, but septic looking.Now on BIPAP, HR 120s, low grade temp. CRP quite elevated, as is lactic acid, along with WBC of 39,000 , all indicating overwhelming sepsis most likely secondary to the surgery.She will remain on anti coagulation , and check D dimer/LDH.she is already started on IV ABX., Will draw cultures, and control pain in a safely manner. Past History Past Medical History: anemia Social history: no significant social history Family history: no significant family history Medications and Allergies Allergies Allergy/AdvReac Type Severity Reaction Status Date / Time No Known Allergies Allergy Unverified 10/13/13 13:21 Home Medications Medication Instructions Recorded Confirmed Last Taken Type Folic Acid [Folvite] 1 mg PO QDAY 10/13/13 09/18/16 09/18/16 History oxyCODONE /ACETAMINOPHEN [Percocet 1 tab PO Q6HR PRN #10 tablet 10/13/1309/18/16 Rx 5/325 mg] Promethazine [Phenergan] 25 mg PO Q6H PRN 08/16/14 09/18/16 09/18/16 History valACYclovir [Valtrex] 500 mg PO DAILY 08/16/14 09/18/16 09/18/16 History Active Meds: Active Medications Acetaminophen (Tylenol) 650 mg PO Q4H PRN PRN Reason: Pain MILD(1-3)/Fever >100.5/PALACIOS Albuterol/Ipratropium (Duoneb 0.5 Mg-3 Mg/3 Ml Soln) 1 ampul IH Q6HRT [facility] Last Admin: 09/27/16 20:06 Dose: 1 ampul Arformoterol Tartrate (Brovana Nebu) 15 mcg IH Q12HRT [facility] Last Admin: 09/27/16 20:06 Dose: 15 mcg Aspirin (Aspirin) 325 mg PO BID [facility] Last Admin: 09/27/16 11:44 Dose: 325 mg Budesonide (Pulmicort) 0.5 mg IH Q12HRT [facility] Last Admin: 09/27/16 20:06 Dose: 0.5 mg Celecoxib (Celebrex) 100 mg PO BID [facility] Last Admin: 09/27/16 11:45 Dose: 100 mg Diphenhydramine HCl (Benadryl) 12.5 mg IV Q4H PRN PRN Reason: Itching Last Admin: 09/27/16 18:08 Dose: 12.5 mg Docusate Sodium (Colace) 100 mg PO BID [facility] Last Admin: 09/27/16 11:45 Dose: 100 mg Enoxaparin Sodium (Lovenox) 40 mg SUB-Q QDAY [facility] Last Admin: 09/27/16 11:45 Dose: 40 mg Famotidine (Pepcid) 20 mg IV QDAY [facility] Last Admin: 09/27/16 16:25 Dose: 20 mg Folic Acid (Folvite) 1 mg PO QDAY [facility] Last Admin: 09/27/16 11:44 Dose: 1 mg Furosemide (Lasix) 20 mg IV Q12H [facility] Stop: 09/28/16 03:01 Last Admin: 09/27/16 16:25 Dose: 20 mg Hydromorphone HCl (Dilaudid) 2 mg IV Q4HR PRN PRN Reason: Severe Pain Last Admin: 09/27/16 18:07 Dose: 1 mg Sodium Chloride (Nacl 0.9% 1000 Ml) 1,000 mls @ 125 mls/hr IV DIRECT [facility] Last Admin: 09/27/16 08:38 Dose: 125 mls/hr Levofloxacin/Dextrose (Levaquin 750mg/150ml) 750 mg in 150 mls @ 100 mls/hr IV Q24HR [facility] PRN Reason: Protocol Last Admin: 09/27/16 16:26 Dose: 100 mls/hr Piperacillin Sod/Tazobactam Sod (Zosyn/Ns 4.5gm/100ml) 4.5 gm in 100 mls @ 200 mls/hr IV Q8HR [facility] PRN Reason: Protocol Vancomycin HCl 2,000 mg/ (Sodium Chloride) 540 mls @ 250 mls/hr IV ONCE ONE Stop: 09/28/16 01:09 Vancomycin HCl 1,250 mg/ (Sodium Chloride) 275 mls @ 166.667 mls/hr IV Q12H [facility] Ketorolac Tromethamine (Toradol) 30 mg IV Q6H PRN PRN Reason: Pain, Moderate (4-6) Stop: 09/30/16 16:45 Last Admin: 09/25/16 23:34 Dose: 30 mg Multivitamins (Theragran Tab) 1 each PO QDAY [facility] Last Admin: 09/27/16 11:44 Dose: 1 each Ondansetron HCl (Zofran) 4 mg IV Q8H PRN PRN Reason: Nausea And Vomiting Last Admin: 09/25/16 17:52 Dose: 4 mg Oxycodone/Acetaminophen (Percocet 5/325) 1 tab PO Q6H PRN PRN Reason: Pain, Moderate (4-6) Promethazine HCl (Phenergan) 25 mg [place] Q6H PRN PRN Reason: Nausea And Vomiting Last Admin: 09/25/16 22:05 Dose: 25 mg Sodium Chloride (Sodium Chloride Flush Syringe 10 Ml) 10 ml IV PRN PRN PRN Reason: LINE FLUSH Tramadol HCl (Ultram) 50 mg PO Q4H PRN PRN Reason: Pain, Moderate (4-6) Last Admin: 09/26/16 20:45 Dose: 50 mg Valacyclovir HCl (Valtrex) 500 mg PO DAILY [facility] Last Admin: 09/27/16 11:45 Dose: 500 mg Vancomycin HCl (Vancomycin Pharmacy To Dose) 1 each IV PKCONSULT [facility] PRN Reason: Protocol Zolpidem Tartrate (Ambien) 5 mg PO QHS PRN PRN Reason: Sleep Review of Systems Constitutional: fatigue, chronic pain Breasts: deferred Respiratory: shortness of breath Musculoskeletal: low back pain Exam - Constitutional Vitals: Temp Pulse Resp BP Pulse Ox 98.7 F 123 H 37 H 128/74 94 09/27/16 16:15 09/27/16 20:25 09/27/16 20:25 09/27/16 20:09 09/27/16 20:09 General appearance: Present: mild distress, well-nourished - EENT Eyes: Present: PERRL ENT: hearing intact, clear oral mucosa - Neck Neck: Present: supple, normal ROM - Respiratory Respiratory: bilateral: rhonchi - Cardiovascular Heart Sounds: Present: S1 & S2. Absent: rub, click - Extremities Extremities: pulses symmetrical, No edema Peripheral Pulses: within normal limits - Abdominal General gastrointestinal: Present: soft, non-tender, non-distended, normal bowel sounds Female genitourinary: Present: deferred - Rectal Rectal Exam: deferred - Integumentary Integumentary: Present: clear, warm, dry - Musculoskeletal Musculoskeletal: gait normal, strength equal bilaterally - Psychiatric Psychiatric: appropriate mood/affect, intact judgment & insight - Neurologic Neurologic: CNII-XII intact, moves all extremities Results - Labs CBC & Chem 7: 09/27/16 15:14 09/26/16 04:26 Labs: Abnormal lab results 09/27/16 09/27/16 09/27/16 Range/Units 10:26 14:40 14:40 WBC (4.5-11.0) K/mm3 Hgb (10.1-14.3) gm/dl Hct (30.3-42.9) % MCV (79-97) fl MCH (28-32) pg RDW (13.2-15.2) % Seg Neuts % (Manual) (40.0-70.0) % Lymphocytes % (Manual) (13.4-35.0) % Seg Neutrophils # Man (1.8-7.7) K/mm3 POC ABG pH 7.283 L (7.35-7.45) POC ABG pCO2 45.3 H (35-45) POC ABG pO2 79 L (80-105) Lactic Acid 2.9 H* (0.7-2.0) mmol/L Total Creatine Kinase 3575 H (30-135) units/L CK-MB (CK-2) 11.0 H (0.0-4.0) ng/mL C-Reactive Protein 16.10 H (0.00-1.30) mg/dL 09/27/16 09/27/16 Range/Units 15:14 18:05 WBC 39.3 H (4.5-11.0) K/mm3 Hgb 9.3 L (10.1-14.3) gm/dl Hct 28.9 L (30.3-42.9) % MCV 75 L (79-97) fl MCH 24 L (28-32) pg RDW 18.7 H (13.2-15.2) % Seg Neuts % (Manual) 93.5 H (40.0-70.0) % Lymphocytes % (Manual) 5.0 L (13.4-35.0) % Seg Neutrophils # Man 36.7 H (1.8-7.7) K/mm3 POC ABG pH (7.35-7.45) POC ABG pCO2 (35-45) POC ABG pO2 70 L (80-105) Lactic Acid (0.7-2.0) mmol/L Total Creatine Kinase (30-135) units/L CK-MB (CK-2) (0.0-4.0) ng/mL C-Reactive Protein (0.00-1.30) mg/dL Assessment and Plan - Patient Problems (1) Arthritis of left hip Current Visit: Yes Status: Chronic Plan to address problem: Follow post surgical management. (2) Avascular necrosis of bone of left hip Current Visit: Yes Status: Chronic Plan to address problem: Post surgical pain management., post surgical anticoagulation. (3) Sepsis Current Visit: Yes Status: Acute Qualifiers: Sepsis type: S Plan to address problem: SEE w/up in the notes.
[2016-09-27] MEDS: ZOSYN/NS 4.5GM/100ML 4.5 GM/100 ML VIAL IV SCH (21:54)
[2016-09-27] MEDS ORDERED: VANCOMYCIN 2,000 MG in NACL 0.9% 500 ML 500 ML IV ONE (23:00)
[2016-09-27 23:35] LABS: Reticulocyte % 8.11 % (0.78-2.58)
[2016-09-28] MEDS: BENADRYL IV PRN ×3 (00:45→20:42)
[2016-09-28] MEDS: DILAUDID IV PRN ×4 (00:45→20:42)
[2016-09-28] MEDS: DUONEB 0.5 MG-3 MG/3 ML SOLN IH SCH ×3 (01:25→13:55)
[2016-09-28] MEDS: TYLENOL PO PRN (01:57)
[2016-09-28] MEDS: TORADOL IV PRN (01:57)
--- NOTE | 2016-09-28 02:19 | Consultation ---
This is in coverage for Dr. Bonilla. CONSULTING PHYSICIAN: Manjinder Ordoñez DO REASON FOR CONSULTATION: Dyspnea, desaturations, hypoxemia essentially. CHIEF COMPLAINT AND HISTORY OF PRESENT ILLNESS: The patient is a 41-year-old -[place] female with past medical history significant amongst other things for a diagnosis of sickle cell anemia. It is unclear if she has the disease or the trait. According to the records, she was admitted to the hospital due to the left hip pain and groin pain progressively worsened. Evaluation was consistent with avascular necrosis and degenerative joint disease. She was admitted for total hip arthroplasty. It seems like the procedure was done on or about the of this month. Over the past 24-48 hours, she has developed increasing shortness of breath and I am asked to stop by and see her. When I stopped by to see her, she had been placed on continuous bilevel positive airway pressure ventilation therapy by my instructions earlier after the arterial blood gas revealed a significant hypercapnic and hypoxemic respiratory failure. She had earlier been on 80% FiO2 high flow nasal cannula. She stated that her shortness of breath has increased since she has come into the hospital. She denies any significant expectoration. She does have a cough. She denied any acute chest pain. She does admit to a 10+ pack year tobacco smoking history, smoking up to half a pack a day prior to the hospitalization. She denied any prior nausea, vomiting, or overt aspiration. History taking was limited by the fact of her being on the BiPAP machine with a full face mask. That really is as much of the history of this presentation as I have. Denies any new leg pain or swelling either unilaterally or bilaterally except as in relation to her hip surgery. That really is as much of the history of presentation as I have. PAST MEDICAL HISTORY: She has a history of sickle cell anemia. She is obese. She has degenerative joint disease. There is a reported history of COPD, but she denied that. PAST SURGICAL HISTORY: Unknown. MEDICATIONS: She was on at the time I stopped by to see her, according to the medication administration record included the following: Tylenol 650 mg p.o. q.4h. p.r.n. mild pain, Mucomyst 200 mg nebulized q.12h., albuterol 2.5 mg inhaled q.8h, aspirin 325 mg p.o. b.i.d., Celebrex 100 mg p.o. b.i.d., Benadryl 12.5 mg IV q.4h. p.r.n. itching, Colace 100 mg p.o. b.i.d., Lovenox 40 mg subcutaneous daily, folic acid 1 mg p.o. daily, Dilaudid 2 mg IV q.4h. p.r.n. severe pain, Toradol 30 mg IV q.6h. p.r.n. moderate pain, daily multivitamins, Zofran 4 mg IV q.8h. p.r.n. nausea and vomiting, Percocet 5/325 p.o. q.6h. p.r.n. moderate pain, Ultram 50 mg p.o. q.4h. p.r.n. moderate pain, Valtrex 500 mg p.o. daily and p.r.n. Ambien 5 mg at bedtime p.r.n. ALLERGIES: No known drug allergies. DIET: Obese, BMI 44. Denies acute weight loss or gain in the preceding few weeks to months. FAMILY AND SOCIAL HISTORY: Apparently lived in the community prior to this admission. She has about 10+ pack year tobacco smoking history. Denies alcohol or illicit drug use or abuse. Family history otherwise unknown. REVIEW OF SYSTEMS: No overt loss of consciousness. No new onset seizures. No new onset focal weakness. No gross hematochezia or melena. No gross hematuria or dysuria. No hematemesis, no hemoptysis. She has a cough that is nonproductive. Complete review of systems obtained. Pertinent positives and/or negatives as in body of history above, otherwise noncontributory. PHYSICAL EXAMINATION: VITAL SIGNS: At presentation, she was afebrile, temperature 98.6, pulse was 86, respiratory rate was 20, blood pressure was 116/99, oxygen sats were 99%, inspired oxygen concentration was not recorded. HEAD, EYES, EARS, NOSE, AND THROAT: Pupils are equal, round, about 3-4 mm, reactive to light. Extraocular muscle movements appeared intact. Grossly, there were no palpable lymph nodes in the supraclavicular or submandibular lymph node chains. No gross jugular venous distention. Unable to examine her oropharynx. She had the BiPAP mask on. LUNGS: Auscultation of both lung eason significant for diminished bilateral breath sounds, prolonged expiratory phase. No active wheezing. HEART: Heart sounds 1 and 2 are heard. They were regular in rate and rhythm at the time of my evaluation. ABDOMEN: Soft, full, bowel sounds are positive, nontender. EXTREMITIES: Without overt digital clubbing, cyanosis, or pedal edema. NEUROLOGIC: The exam was grossly nonfocal. LABORATORY DATA: From my review are as follows: White cell count on admission, on the really was 11,700 with a hemoglobin of 11.7, hematocrit of 36.0, and platelets 245. INR was 1.14 at that time. Arterial blood gas today showed a pH of 7.28, pCO2 of 45, pO2 of 79 that was on 80% high flow nasal cannula. Serum sodium yesterday 138, potassium 4.5, chloride 105, bicarbonate 20, BUN 10, creatinine was 0.7, glucose was 129. Hemoglobin was 8.9 yesterday. No radiographic studies. I have reviewed the radiologist's report. I have reviewed the x-ray, main finding is diffuse bilateral pulmonary infiltrates and a fluffy combined alveolar interstitial pattern. She has a right Port-A-Cath in place, tip is in the distal SVC. No gross pneumothorax, no gross bony fractures that I can see. Cardiovascular silhouette appears borderline enlarged. ASSESSMENT AND PLAN: We have a middle-aged -[place] female with an acute hypoxemic respiratory failure and element of altered mental status, prior low blood pressures as of yesterday and essentially developing the sepsis syndrome. She is a little bit confused at this time but she is tolerating the BiPAP well. The x-rays suggest pulmonary edema but the rest of the clinical exam does not really keeping that. We could well be dealing with an acute altered respiratory distress syndrome developed in this lady. Certainly, she meets the numbers and because of the known cardiogenic nature of the possibility and the possibility of this developing into a full blown respiratory failure, I will watch her very closely; however, shortly to transfer her to the Intensive Care Unit. Respiratory keen, we will keep her on a full bilevel positive airway pressure ventilation therapy and she is currently on 20/5 with a backup rate of 20, appears to be tolerating well. Bronchodilators will be changed to DuoNeb treatments. I will also add long acting bronchodilators. I will hold on systemic steroids at this point. I will, however, get myself a new complete blood count and if the white count is significantly elevated, I will begin empiric antibiotic broad spectrum coverage and put her on systemic steroids, for now we will use inhaled corticosteroids. I will give her a dose of Lasix while I get a stat 2D echocardiogram to better evaluate her cardiac function. The BUN and creatinine level suggests that she can tolerate diuresis, but again this may well be ARDS we are dealing with developing in this lady. So, she received some gentle diuresis and sputum will be sent for Gram stain, cultures and sensitivities if she can. In fact in the absence of the white count being available yet, I will start her on Levaquin monotherapy at this point as part of treatment for COPD exacerbation. I will add GI prophylaxis. I do expect that D-dimer will be elevated post-surgery. We will empirically get bilateral lower extremity Dopplers to rule out venous thromboembolic event otherwise. One set of cardiac enzymes will also be gotten. I would like to mention that I will add GI prophylaxis and flu and pneumonia vaccination will be per protocol. Thank you very much for the consult. I would like to evaluate her again later in the day. We will follow along. We will make further recommendations as picture progresses/becomes clearer. JOB# [id number] LORRIE/GOMEZ
[2016-09-28] MEDS: ZOSYN/NS 4.5GM/100ML 4.5 GM/100 ML VIAL IV SCH ×3 (08:30→21:01)
[2016-09-28] MEDS: PULMICORT IH SCH ×2 (09:33→20:25)
[2016-09-28] MEDS: BROVANA NEBU IH SCH ×2 (09:34→20:25)
[2016-09-28 09:44] LABS: ISTAT Base Excess 1; ISTAT HCO3 26.6; ISTAT PCO2 47.2 (35-45); ISTAT PO2 70 (80-105); ISTAT SO2 93; ISTAT TCO2 28
--- NOTE | 2016-09-28 09:49 | XRay Report ---
AP CHEST: HISTORY: Shortness of breath Bilateral pulmonary edema or infiltrates appear relatively stable since yesterday's exam at 0941 hrs. Heart size remains within normal limits. No large pleural effusion or pneumothorax has developed. Right [id number] remains in good position. IMPRESSION: No significant change.
[2016-09-28] MEDS: PEPCID IV SCH (11:00)
[2016-09-28] MEDS: LEVAQUIN 750MG/150ML 750 MG/150 ML BAG IV SCH (11:00)
[2016-09-28] MEDS: ASPIRIN PO SCH ×2 (11:00→21:00)
[2016-09-28] MEDS: THERAGRAN Tab PO SCH (11:00)
[2016-09-28 11:17] LABS: Hematocrit 24.4 % (30.3-42.9); Hemoglobin 8.1 gm/dl (10.1-14.3); Mean Corpuscular HGB Conc 33 % (30-34); Mean Corpuscular Volume 75 fl (79-97); Platelet Count 174 K/mm3 (140-440); Red Blood Count 3.27 M/mm3 (3.65-5.03); Red Cell Distribution Width 18.9 % (13.2-15.2)
[2016-09-28] MEDS: COLACE PO SCH ×2 (11:17→21:00)
[2016-09-28] MEDS: FOLVITE PO SCH (11:17)
[2016-09-28] MEDS: LOVENOX SUB-Q SCH (11:17)
[2016-09-28 11:29] LABS: Mean Corpuscular Hemoglobin 25 pg (28-32); White Blood Count 30.3 K/mm3 (4.5-11.0)
[2016-09-28 11:30] LABS: BUN/Creatinine Ratio 13.33; Blood Urea Nitrogen 8 mg/dL (7-17); Calcium 8.6 mg/dL (8.4-10.2); Carbon Dioxide 25 mmol/L (22-30); Glucose 137 mg/dL (65-100)
[2016-09-28 11:31] LABS: Anion Gap 17 mmol/L; Chloride 103.9 mmol/L (98-107); Potassium 3.7 mmol/L (3.6-5.0); Sodium 142 mmol/L (137-145)
[2016-09-28 12:14] LABS: Basophils % (Manual) 0 % (0.0-1.8); Blastocytes % (Manual) 0 %; Eosinophils % (Manual) 0 % (0.0-4.3)
[2016-09-28 12:15] LABS: Anisocytosis 1+; Hypochromasia 1+; Poikilocytosis 1+; Schistocytes 1+
[2016-09-28 12:16] LABS: Diff Status Complete; Polychromasia Few; Target Cells Few
[2016-09-28] MEDS: VALTREX PO SCH (12:16)
--- NOTE | 2016-09-28 14:19 | Progress Note ---
Assessment and Plan Patient still on high flow O2. O2 satuaration 96% on 50% FIO2 high flow O2.Says breathing slightly better. Alert, awake. Not in acute respiratory distress. Patient afebrile. I spent critical care time of 40 minutes on this patient. review the chart, examining the patient, review labs, chest xray, talking to the respiratory therapy and nursing staff and work out plan of treatment. - Patient Problems (1) Sepsis Current Visit: Yes Status: Acute Qualifiers: Sepsis type: S Plan to address problem: Patient is on zosyn,vancomycin and Levaquine. (2) Avascular necrosis of bone of left hip Current Visit: Yes Status: Chronic Plan to address problem: Patient S/P left hip replacement. (3) Pulmonary infiltrates on CXR Current Visit: Yes Status: Acute Plan to address problem: Could be pulmonary edema related to ARDS. Patient also treating for pneumonia. Patient is on Levaquine, Zosyn and vancomycin. (4) Acute respiratory failure with hypoxia Current Visit: Yes Status: Acute Plan to address problem: O2 supplementation High flow O2 , FIO2 50%. Albuterol/atrovent aerosol treatments q 6 hours. Continue S/C Lovenox. Continue Pepcid. Subjective Date of service: 09/28/16 Interval history: Patient still on high flow O2. O2 satuaration 96% on 50% FIO2 high flow O2.Says breathing slightly better. Alert, awake. Not in acute respiratory distress. Patient afebrile. Objective Vital Signs - 12hr 09/28/16 09/28/16 09/28/16 03:41 03:51 04:00 Temperature Pulse Rate 123 H 122 H 121 H Pulse Rate [ Anterior Bilateral Throughout] Respiratory 27 H 22 24 Rate Respiratory Rate [Anterior Bilateral Throughout] Blood Pressure 104/73 104/73 103/62 O2 Sat by Pulse 96 95 97 Oximetry 09/28/16 09/28/16 09/28/16 04:11 04:21 04:31 Temperature Pulse Rate 121 H 115 H 117 H Pulse Rate [ Anterior Bilateral Throughout] Respiratory 23 20 25 H Rate Respiratory Rate [Anterior Bilateral Throughout] Blood Pressure 103/62 103/62 103/62 O2 Sat by Pulse 97 97 96 Oximetry 09/28/16 09/28/16 09/28/16 04:41 04:51 05:00 Temperature Pulse Rate 118 H 118 H 117 H Pulse Rate [ Anterior Bilateral Throughout] Respiratory 24 20 33 H Rate Respiratory Rate [Anterior Bilateral Throughout] Blood Pressure 103/62 103/62 115/58 O2 Sat by Pulse 97 97 92 Oximetry 09/28/16 09/28/16 09/28/16 05:11 05:20 05:31 Temperature Pulse Rate 113 H 116 H 114 H Pulse Rate [ Anterior Bilateral Throughout] Respiratory 30 H 30 H 24 Rate Respiratory Rate [Anterior Bilateral Throughout] Blood Pressure 103/62 115/58 103/62 O2 Sat by Pulse 95 99 97 Oximetry 09/28/16 09/28/16 09/28/16 05:41 05:51 06:00 Temperature Pulse Rate 117 H 113 H 122 H Pulse Rate [ Anterior Bilateral Throughout] Respiratory 17 26 H 36 H Rate Respiratory Rate [Anterior Bilateral Throughout] Blood Pressure 115/58 115/58 116/65 O2 Sat by Pulse 98 99 93 Oximetry 09/28/16 09/28/16 09/28/16 06:11 06:21 06:31 Temperature Pulse Rate 117 H 117 H 116 H Pulse Rate [ Anterior Bilateral Throughout] Respiratory 26 H 23 25 H Rate Respiratory Rate [Anterior Bilateral Throughout] Blood Pressure 116/65 116/65 116/65 O2 Sat by Pulse 97 98 98 Oximetry 09/28/16 09/28/16 09/28/16 06:41 06:51 07:00 Temperature Pulse Rate 119 H 116 H 117 H Pulse Rate [ Anterior Bilateral Throughout] Respiratory 27 H 18 29 H Rate Respiratory Rate [Anterior Bilateral Throughout] Blood Pressure 116/65 116/65 118/70 O2 Sat by Pulse 97 97 96 Oximetry 09/28/16 09/28/16 09/28/16 07:11 07:21 07:31 Temperature Pulse Rate 118 H 116 H 122 H Pulse Rate [ Anterior Bilateral Throughout] Respiratory 34 H 18 36 H Rate Respiratory Rate [Anterior Bilateral Throughout] Blood Pressure 118/70 118/70 118/70 O2 Sat by Pulse 98 97 96 Oximetry 09/28/16 09/28/16 09/28/16 07:41 07:51 08:00 Temperature 97.1 F L Pulse Rate 117 H 117 H 117 H Pulse Rate [ Anterior Bilateral Throughout] Respiratory 20 30 H 27 H Rate Respiratory Rate [Anterior Bilateral Throughout] Blood Pressure 118/70 118/70 112/76 O2 Sat by Pulse 97 98 98 Oximetry 09/28/16 09/28/16 09/28/16 08:11 08:21 08:31 Temperature Pulse Rate 118 H 115 H 119 H Pulse Rate [ Anterior Bilateral Throughout] Respiratory 35 H 41 H 32 H Rate Respiratory Rate [Anterior Bilateral Throughout] Blood Pressure 112/76 118/70 118/70 O2 Sat by Pulse 98 94 95 Oximetry 09/28/16 09/28/16 09/28/16 08:41 08:51 09:01 Temperature Pulse Rate 119 H 125 H 125 H Pulse Rate [ Anterior Bilateral Throughout] Respiratory 21 23 18 Rate Respiratory Rate [Anterior Bilateral Throughout] Blood Pressure 118/70 118/70 132/61 O2 Sat by Pulse 95 96 93 Oximetry 09/28/16 09/28/16 09/28/16 09:11 09:20 09:21 Temperature Pulse Rate 126 H 124 H 125 H Pulse Rate [ Anterior Bilateral Throughout] Respiratory 26 H 25 H 22 Rate Respiratory Rate [Anterior Bilateral Throughout] Blood Pressure 132/61 132/61 132/61 O2 Sat by Pulse 93 95 95 Oximetry 09/28/16 09/28/16 09/28/16 09:31 09:34 09:41 Temperature Pulse Rate 122 H 124 H Pulse Rate [ 123 H Anterior Bilateral Throughout] Respiratory 15 22 Rate Respiratory 16 Rate [Anterior Bilateral Throughout] Blood Pressure 132/61 132/61 O2 Sat by Pulse 98 98 Oximetry 09/28/16 09/28/16 09/28/16 09:46 09:51 10:00 Temperature Pulse Rate 123 H 123 H Pulse Rate [ 124 H Anterior Bilateral Throughout] Respiratory 21 17 Rate Respiratory 18 Rate [Anterior Bilateral Throughout] Blood Pressure 132/61 123/66 O2 Sat by Pulse 95 96 Oximetry 09/28/16 09/28/16 09/28/16 10:11 10:21 10:31 Temperature Pulse Rate 126 H 122 H 119 H Pulse Rate [ Anterior Bilateral Throughout] Respiratory 25 H 22 22 Rate Respiratory Rate [Anterior Bilateral Throughout] Blood Pressure 123/66 132/61 132/61 O2 Sat by Pulse 94 94 96 Oximetry 09/28/16 09/28/16 09/28/16 10:41 10:51 11:00 Temperature Pulse Rate 120 H 120 H 121 H Pulse Rate [ Anterior Bilateral Throughout] Respiratory 25 H 19 21 Rate Respiratory Rate [Anterior Bilateral Throughout] Blood Pressure 132/61 123/66 135/70 O2 Sat by Pulse 96 96 92 Oximetry 09/28/16 09/28/1617 11:11 11:21 11:31 Temperature Pulse Rate 122 H 115 H 119 H Pulse Rate [ Anterior Bilateral Throughout] Respiratory 19 26 H 22 Rate Respiratory Rate [Anterior Bilateral Throughout] Blood Pressure 135/70 135/70 135/70 O2 Sat by Pulse 91 94 95 Oximetry 09/28/16 09/28/16 09/28/16 11:41 11:51 12:00 Temperature 98.1 F Pulse Rate 117 H 120 H Pulse Rate [ Anterior Bilateral Throughout] Respiratory 26 H 28 H Rate Respiratory Rate [Anterior Bilateral Throughout] Blood Pressure 135/70 135/70 O2 Sat by Pulse 96 92 Oximetry 09/28/16 09/28/16 09/28/16 13:55 13:57 14:06 Temperature Pulse Rate Pulse Rate [ 118 H 119 H Anterior Bilateral Throughout] Respiratory Rate Respiratory 20 22 Rate [Anterior Bilateral Throughout] Blood Pressure O2 Sat by Pulse 94 Oximetry Constitutional: no acute distress, alert, other (On high flow O2.) Eyes: non-icteric ENT: oropharynx moist Neck: supple, no lymphadenopathy Ascultation: Bilateral: rales, rhonchi Cardiovascular: regular rate and rhythm Gastrointestinal: normoactive bowel sounds, soft, non-tender Integumentary: normal Extremities: no cyanosis, no edema Neurologic: normal mental status, non-focal exam, pupils equal and round, CN II- XII normal Psychiatric: depressed CBC and BMP: 09/28/16 10:47 09/28/16 10:47 ABG, PT/INR, D-dimer: ABG POC ABG pH 7.360 (7.35-7.45) 09/28/16 09:20 POC ABG pCO2 47.2 (35-45) H 09/28/16 09:20 POC ABG pO2 70 (80-105) L 09/28/16 09:20 POC ABG HCO3 26.6 09/28/16 09:20 POC ABG Total CO2 28 09/28/16 09:20 POC ABG O2 Sat 93 09/28/16 09:20 PT/INR, D-dimer PT 14.5 Sec. (12.2-14.9) 09/20/16 10:35 INR 1.14 (0.87-1.13) H 09/20/16 10:35 D-Dimer 4758.12 ng/mlDDU (0-234) H 09/27/16 22:47 Abnormal lab findings: Abnormal Labs 09/20/16 09/20/16 09/20/16 10:35 10:35 10:35 WBC 11.7 H RBC Hgb Hct MCV 75 L MCH 24 L RDW 16.6 H Seg Neuts % (Manual) Lymphocytes % (Manual) Nucleated RBC % Seg Neutrophils # Man Monocytes # (Manual) Percent Retic INR 1.14 H D-Dimer POC ABG pH POC ABG pCO2 POC ABG pO2 Carbon Dioxide Creatinine 0.5 L Glucose 115 H Lactic Acid Calcium Total Bilirubin 2.0 H Lactate Dehydrogenase Total Creatine Kinase CK-MB (CK-2) C-Reactive Protein 09/26/16 09/26/16 09/27/16 04:26 04:26 10:26 WBC RBC Hgb 8.9 L Hct 28.0 L MCV MCH RDW Seg Neuts % (Manual) Lymphocytes % (Manual) Nucleated RBC % Seg Neutrophils # Man Monocytes # (Manual) Percent Retic INR D-Dimer POC ABG pH 7.283 L POC ABG pCO2 45.3 H POC ABG pO2 79 L Carbon Dioxide 20 L Creatinine Glucose 129 H Lactic Acid Calcium 7.6 L Total Bilirubin Lactate Dehydrogenase Total Creatine Kinase CK-MB (CK-2) C-Reactive Protein 09/27/16 09/27/16 09/27/16 14:40 14:40 15:14 WBC 39.3 H RBC Hgb 9.3 L Hct 28.9 L MCV 75 L MCH 24 L RDW 18.7 H Seg Neuts % (Manual) 93.5 H Lymphocytes % (Manual) 5.0 L Nucleated RBC % Seg Neutrophils # Man 36.7 H Monocytes # (Manual) Percent Retic INR D-Dimer POC ABG pH POC ABG pCO2 POC ABG pO2 Carbon Dioxide Creatinine Glucose Lactic Acid 2.9 H* Calcium Total Bilirubin Lactate Dehydrogenase Total Creatine Kinase 3575 H CK-MB (CK-2) 11.0 H C-Reactive Protein 16.10 H 09/27/16 09/27/16 09/27/16 18:05 22:47 22:47 WBC RBC Hgb Hct MCV MCH RDW Seg Neuts % (Manual) Lymphocytes % (Manual) Nucleated RBC % Seg Neutrophils # Man Monocytes # (Manual) Percent Retic INR D-Dimer 4758.12 H POC ABG pH POC ABG pCO2 POC ABG pO2 70 L Carbon Dioxide Creatinine Glucose Lactic Acid Calcium Total Bilirubin Lactate Dehydrogenase 829 H Total Creatine Kinase CK-MB (CK-2) C-Reactive Protein 09/27/16 09/28/16 09/28/16 22:47 09:20 10:47 WBC RBC Hgb Hct MCV MCH RDW Seg Neuts % (Manual) Lymphocytes % (Manual) Nucleated RBC % Seg Neutrophils # Man Monocytes # (Manual) Percent Retic 8.11 H INR D-Dimer POC ABG pH POC ABG pCO2 47.2 H POC ABG pO2 70 L Carbon Dioxide Creatinine 0.6 L Glucose 137 H Lactic Acid Calcium Total Bilirubin Lactate Dehydrogenase Total Creatine Kinase CK-MB (CK-2) C-Reactive Protein 09/28/16 10:47 WBC 30.3 H RBC 3.27 L Hgb 8.1 L Hct 24.4 L MCV 75 L MCH 25 L RDW 18.9 H Seg Neuts % (Manual) Lymphocytes % (Manual) 12.0 L Nucleated RBC % 5.0 H Seg Neutrophils # Man 21.2 H Monocytes # (Manual) 1.8 H Percent Retic INR D-Dimer POC ABG pH POC ABG pCO2 POC ABG pO2 Carbon Dioxide Creatinine Glucose Lactic Acid Calcium Total Bilirubin Lactate Dehydrogenase Total Creatine Kinase CK-MB (CK-2) C-Reactive Protein Chest x-ray: report reviewed (pulmonary edema and pulmonary infiltrates.), image reviewed
[2016-09-28] MEDS: VANCOMYCIN 1,250 MG in NACL 0.9% 250ML 250 ML IV SCH ×2 (20:39→21:00)
--- NOTE | 2016-09-28 23:26 | Consultation ---
History of Present Illness - Reason for Consult Consult date: 09/28/16 - History of Present Illness Patient seen/examined, labs reviewed, case d/w patient, and spouse, Patient c/o feels a bit better today.WBC better, but still high. Past History Past Medical History: anemia Social history: no significant social history Family history: no significant family history Medications and Allergies Allergies Allergy/AdvReac Type Severity Reaction Status Date / Time No Known Allergies Allergy Unverified 10/13/13 13:21 Home Medications Medication Instructions Recorded Confirmed Last Taken Type Folic Acid [Folvite] 1 mg PO QDAY 10/13/13 09/18/16 09/18/16 History oxyCODONE /ACETAMINOPHEN [Percocet 1 tab PO Q6HR PRN #10 tablet 10/13/1309/18/16 Rx 5/325 mg] Promethazine [Phenergan] 25 mg PO Q6H PRN 08/16/14 09/18/16 09/18/16 History valACYclovir [Valtrex] 500 mg PO DAILY 08/16/14 09/18/16 09/18/16 History Active Meds: Active Medications Acetaminophen (Tylenol) 650 mg PO Q4H PRN PRN Reason: Pain MILD(1-3)/Fever >100.5/PALACIOS Last Admin: 09/28/16 01:57 Dose: 650 mg Albuterol/Ipratropium (Duoneb 0.5 Mg-3 Mg/3 Ml Soln) 1 ampul IH Q6HRT [facility] Last Admin: 09/28/16 13:55 Dose: 1 ampul Arformoterol Tartrate (Brovana Nebu) 15 mcg IH Q12HRT [facility] Last Admin: 09/28/16 20:25 Dose: 15 mcg Aspirin (Aspirin) 325 mg PO BID [facility] Last Admin: 09/28/16 21:00 Dose: 325 mg Budesonide (Pulmicort) 0.5 mg IH Q12HRT [facility] Last Admin: 09/28/16 20:25 Dose: 0.5 mg Celecoxib (Celebrex) 100 mg PO BID [facility] Last Admin: 09/28/16 20:59 Dose: 100 mg Diphenhydramine HCl (Benadryl) 12.5 mg IV Q4H PRN PRN Reason: Itching Last Admin: 09/28/16 20:42 Dose: 12.5 mg Docusate Sodium (Colace) 100 mg PO BID [facility] Last Admin: 09/28/16 21:00 Dose: 100 mg Enoxaparin Sodium (Lovenox) 40 mg SUB-Q QDAY [facility] Last Admin: 09/28/16 11:17 Dose: 40 mg Famotidine (Pepcid) 20 mg IV QDAY [facility] Last Admin: 09/28/16 11:00 Dose: 20 mg Folic Acid (Folvite) 1 mg PO QDAY [facility] Last Admin: 09/28/16 11:17 Dose: 1 mg Hydromorphone HCl (Dilaudid) 2 mg IV Q4HR PRN PRN Reason: Severe Pain Last Admin: 09/28/16 20:42 Dose: 2 mg Sodium Chloride (Nacl 0.9% 1000 Ml) 1,000 mls @ 125 mls/hr IV DIRECT [facility] Last Admin: 09/27/16 08:38 Dose: 125 mls/hr Levofloxacin/Dextrose (Levaquin 750mg/150ml) 750 mg in 150 mls @ 100 mls/hr IV Q24HR [facility] PRN Reason: Protocol Last Admin: 09/28/16 11:00 Dose: 100 mls/hr Piperacillin Sod/Tazobactam Sod (Zosyn/Ns 4.5gm/100ml) 4.5 gm in 100 mls @ 200 mls/hr IV Q8HR [facility] PRN Reason: Protocol Last Admin: 09/28/16 21:01 Dose: 200 mls/hr Vancomycin HCl 1,250 mg/ (Sodium Chloride) 275 mls @ 166.667 mls/hr IV Q8HR [facility] Last Admin: 09/28/16 21:00 Dose: 167 mls/hr Ketorolac Tromethamine (Toradol) 30 mg IV Q6H PRN PRN Reason: Pain, Moderate (4-6) Stop: 09/30/16 16:45 Last Admin: 09/28/16 01:57 Dose: 30 mg Multivitamins (Theragran Tab) 1 each PO QDAY [facility] Last Admin: 09/28/16 11:00 Dose: 1 each Ondansetron HCl (Zofran) 4 mg IV Q8H PRN PRN Reason: Nausea And Vomiting Last Admin: 09/25/16 17:52 Dose: 4 mg Oxycodone/Acetaminophen (Percocet 5/325) 1 tab PO Q6H PRN PRN Reason: Pain, Moderate (4-6) Promethazine HCl (Phenergan) 25 mg [place] Q6H PRN PRN Reason: Nausea And Vomiting Last Admin: 09/25/16 22:05 Dose: 25 mg Sodium Chloride (Sodium Chloride Flush Syringe 10 Ml) 10 ml IV PRN PRN PRN Reason: LINE FLUSH Tramadol HCl (Ultram) 50 mg PO Q4H PRN PRN Reason: Pain, Moderate (4-6) Last Admin: 09/26/16 20:45 Dose: 50 mg Valacyclovir HCl (Valtrex) 500 mg PO DAILY [facility] Last Admin: 09/28/16 12:16 Dose: 500 mg Vancomycin HCl (Vancomycin Pharmacy To Dose) 1 each IV PKCONSULT [facility] PRN Reason: Protocol Zolpidem Tartrate (Ambien) 5 mg PO QHS PRN PRN Reason: Sleep Review of Systems Constitutional: chronic pain Breasts: deferred Respiratory: shortness of breath Musculoskeletal: low back pain Exam - Constitutional Vitals: Temp Pulse Resp BP Pulse Ox 98.1 F 112 H 28 H 129/68 100 09/28/16 16:00 09/28/16 20:40 09/28/16 20:40 09/28/16 19:00 09/28/16 20:33 General appearance: Present: mild distress, well-nourished - EENT Eyes: Present: PERRL ENT: hearing intact, clear oral mucosa - Neck Neck: Present: supple, normal ROM - Respiratory Respiratory effort: normal Respiratory: bilateral: rhonchi - Cardiovascular Heart Sounds: Present: S1 & S2. Absent: rub, click - Extremities Extremities: pulses symmetrical, No edema Peripheral Pulses: within normal limits - Abdominal General gastrointestinal: Present: soft, non-tender, non-distended, normal bowel sounds Female genitourinary: Present: deferred - Rectal Rectal Exam: deferred - Integumentary Integumentary: Present: clear, warm, dry - Musculoskeletal Musculoskeletal: gait normal, strength equal bilaterally - Psychiatric Psychiatric: appropriate mood/affect, intact judgment & insight - Neurologic Neurologic: CNII-XII intact, moves all extremities Results - Labs CBC & Chem 7: 09/28/16 10:47 09/28/16 10:47 Labs: Abnormal lab results 09/27/16 09/27/16 09/27/16 Range/Units 22:47 22:47 22:47 WBC (4.5-11.0) K/mm3 RBC (3.65-5.03) M/mm3 Hgb (10.1-14.3) gm/dl Hct (30.3-42.9) % MCV (79-97) fl MCH (28-32) pg RDW (13.2-15.2) % Lymphocytes % (Manual) (13.4-35.0) % Nucleated RBC % (0.0-0.9) % Seg Neutrophils # Man (1.8-7.7) K/mm3 Monocytes # (Manual) (0.0-0.8) K/mm3 Percent Retic 8.11 H (0.78-2.58) % D-Dimer 4758.12 H (0-234) ng/mlDDU POC ABG pCO2 (35-45) POC ABG pO2 (80-105) Creatinine (0.7-1.2) mg/dL Glucose (65-100) mg/dL Lactate Dehydrogenase 829 H (91-180) units/L 09/28/16 09/28/16 09/28/16 Range/Units 09:20 10:47 10:47 WBC 30.3 H (4.5-11.0) K/mm3 RBC 3.27 L (3.65-5.03) M/mm3 Hgb 8.1 L (10.1-14.3) gm/dl Hct 24.4 L (30.3-42.9) % MCV 75 L (79-97) fl MCH 25 L (28-32) pg RDW 18.9 H (13.2-15.2) % Lymphocytes % (Manual) 12.0 L (13.4-35.0) % Nucleated RBC % 5.0 H (0.0-0.9) % Seg Neutrophils # Man 21.2 H (1.8-7.7) K/mm3 Monocytes # (Manual) 1.8 H (0.0-0.8) K/mm3 Percent Retic (0.78-2.58) % D-Dimer (0-234) ng/mlDDU POC ABG pCO2 47.2 H (35-45) POC ABG pO2 70 L (80-105) Creatinine 0.6 L (0.7-1.2) mg/dL Glucose 137 H (65-100) mg/dL Lactate Dehydrogenase (91-180) units/L Assessment and Plan - Patient Problems (1) Arthritis of left hip Current Visit: Yes Status: Deleted Plan to address problem: Follow post surgical management. (2) Avascular necrosis of bone of left hip Current Visit: Yes Status: Chronic Plan to address problem: Post surgical pain management., post surgical anticoagulation. (3) Sepsis Current Visit: Yes Status: Acute Qualifiers: Sepsis type: S Plan to address problem: SEE w/up in the notes.
[2016-09-29] MEDS: DILAUDID IV PRN ×6 (00:18→23:07)
[2016-09-29] MEDS: BENADRYL IV PRN ×5 (00:18→18:35)
[2016-09-29] MEDS: DUONEB 0.5 MG-3 MG/3 ML SOLN IH SCH ×5 (02:25→20:21)
[2016-09-29] MEDS: ZOSYN/NS 4.5GM/100ML 4.5 GM/100 ML VIAL IV SCH ×3 (05:50→21:28)
[2016-09-29] MEDS: VANCOMYCIN 1,250 MG in NACL 0.9% 250ML 250 ML IV SCH ×2 (05:51→15:00)
[2016-09-29] MEDS: PULMICORT IH SCH ×2 (08:34→20:20)
[2016-09-29] MEDS: BROVANA NEBU IH SCH ×2 (08:35→20:20)
[2016-09-29] MEDS: ASPIRIN PO SCH ×2 (09:25→21:18)
[2016-09-29] MEDS: LOVENOX SUB-Q SCH (09:25)
[2016-09-29] MEDS: VALTREX PO SCH (09:26)
[2016-09-29] MEDS: THERAGRAN Tab PO SCH (09:26)
[2016-09-29] MEDS: FOLVITE PO SCH (09:26)
[2016-09-29] MEDS: COLACE PO SCH ×2 (09:26→21:18)
[2016-09-29] MEDS: PEPCID IV SCH (09:26)
[2016-09-29] MEDS: LEVAQUIN 750MG/150ML 750 MG/150 ML BAG IV SCH (09:40)
--- NOTE | 2016-09-29 12:23 | Progress Note ---
Assessment and Plan Patient still on high flow O2. Patient desatuarated this morning. Increased FIO2 to 100%.O2 satuaration running 100%.Decreasing FIO32 to 75%.Patient Alert, awake. Not in acute respiratory distress.Patient continuedly afebrile. I spent critical care time of 40 minutes on this patient. review the chart, examining the patient, review labs, chest xray, talking to the respiratory therapy and nursing staff and work out plan of treatment. - Patient Problems (1) Sepsis Current Visit: Yes Status: Acute Qualifiers: Sepsis type: S Plan to address problem: Patient is on zosyn,vancomycin and Levaquine. (2) Avascular necrosis of bone of left hip Current Visit: Yes Status: Chronic Plan to address problem: Patient S/P left hip replacement. (3) Pulmonary infiltrates on CXR Current Visit: Yes Status: Acute Plan to address problem: Could be pulmonary edema related to ARDS. Patient also treating for pneumonia. Patient is on Levaquine, Zosyn and vancomycin. (4) Acute respiratory failure with hypoxia Current Visit: Yes Status: Acute Plan to address problem: O2 supplementation High flow O2 , FIO2 75%. Albuterol/atrovent aerosol treatments q 6 hours. Continue S/C Lovenox. Continue Pepcid. Subjective Date of service: 09/29/16 Interval history: Patient still on high flow O2. Patient desatuarated this morning. Increased FIO2 to 100%.O2 satuaration running 100%.Decreasing FIO32 to 75%.Patient Alert, awake. Not in acute respiratory distress.Patient continuedly afebrile. Objective Vital Signs - 12hr 09/29/16 09/29/16 09/29/16 08:34 08:35 08:58 Pulse Rate [ 102 H 106 H Anterior Bilateral Throughout] Respiratory 24 21 Rate [Anterior Bilateral Throughout] O2 Sat by Pulse 96 Oximetry Constitutional: no acute distress, alert, other (On high flow O2.) Eyes: non-icteric ENT: oropharynx moist Neck: supple, no lymphadenopathy Ascultation: Bilateral: rales, rhonchi Cardiovascular: regular rate and rhythm Gastrointestinal: normoactive bowel sounds, soft, non-tender Integumentary: normal Extremities: no cyanosis, no edema Neurologic: normal mental status, non-focal exam, pupils equal and round, CN II- XII normal Psychiatric: depressed CBC and BMP: 09/28/16 10:47 09/28/16 10:47 ABG, PT/INR, D-dimer: ABG POC ABG pH 7.360 (7.35-7.45) 09/28/16 09:20 POC ABG pCO2 47.2 (35-45) H 09/28/16 09:20 POC ABG pO2 70 (80-105) L 09/28/16 09:20 POC ABG HCO3 26.6 09/28/16 09:20 POC ABG Total CO2 28 09/28/16 09:20 POC ABG O2 Sat 93 09/28/16 09:20 PT/INR, D-dimer PT 14.5 Sec. (12.2-14.9) 09/20/16 10:35 INR 1.14 (0.87-1.13) H 09/20/16 10:35 D-Dimer 4758.12 ng/mlDDU (0-234) H 09/27/16 22:47 Abnormal lab findings: Abnormal Labs 09/20/16 09/20/16 09/20/16 10:35 10:35 10:35 WBC 11.7 H RBC Hgb Hct MCV 75 L MCH 24 L RDW 16.6 H Seg Neuts % (Manual) Lymphocytes % (Manual) Nucleated RBC % Seg Neutrophils # Man Monocytes # (Manual) Percent Retic INR 1.14 H D-Dimer POC ABG pH POC ABG pCO2 POC ABG pO2 Carbon Dioxide Creatinine 0.5 L Glucose 115 H Lactic Acid Calcium Total Bilirubin 2.0 H Lactate Dehydrogenase Total Creatine Kinase CK-MB (CK-2) C-Reactive Protein 09/26/16 09/26/16 09/27/16 04:26 04:26 10:26 WBC RBC Hgb 8.9 L Hct 28.0 L MCV MCH RDW Seg Neuts % (Manual) Lymphocytes % (Manual) Nucleated RBC % Seg Neutrophils # Man Monocytes # (Manual) Percent Retic INR D-Dimer POC ABG pH 7.283 L POC ABG pCO2 45.3 H POC ABG pO2 79 L Carbon Dioxide 20 L Creatinine Glucose 129 H Lactic Acid Calcium 7.6 L Total Bilirubin Lactate Dehydrogenase Total Creatine Kinase CK-MB (CK-2) C-Reactive Protein 09/27/16 09/27/16 09/27/16 14:40 14:40 15:14 WBC 39.3 H RBC Hgb 9.3 L Hct 28.9 L MCV 75 L MCH 24 L RDW 18.7 H Seg Neuts % (Manual) 93.5 H Lymphocytes % (Manual) 5.0 L Nucleated RBC % Seg Neutrophils # Man 36.7 H Monocytes # (Manual) Percent Retic INR D-Dimer POC ABG pH POC ABG pCO2 POC ABG pO2 Carbon Dioxide Creatinine Glucose Lactic Acid 2.9 H* Calcium Total Bilirubin Lactate Dehydrogenase Total Creatine Kinase 3575 H CK-MB (CK-2) 11.0 H C-Reactive Protein 16.10 H 09/27/16 09/27/16 09/27/16 18:05 22:47 22:47 WBC RBC Hgb Hct MCV MCH RDW Seg Neuts % (Manual) Lymphocytes % (Manual) Nucleated RBC % Seg Neutrophils # Man Monocytes # (Manual) Percent Retic INR D-Dimer 4758.12 H POC ABG pH POC ABG pCO2 POC ABG pO2 70 L Carbon Dioxide Creatinine Glucose Lactic Acid Calcium Total Bilirubin Lactate Dehydrogenase 829 H Total Creatine Kinase CK-MB (CK-2) C-Reactive Protein 09/27/16 09/28/16 09/28/16 22:47 09:20 10:47 WBC RBC Hgb Hct MCV MCH RDW Seg Neuts % (Manual) Lymphocytes % (Manual) Nucleated RBC % Seg Neutrophils # Man Monocytes # (Manual) Percent Retic 8.11 H INR D-Dimer POC ABG pH POC ABG pCO2 47.2 H POC ABG pO2 70 L Carbon Dioxide Creatinine 0.6 L Glucose 137 H Lactic Acid Calcium Total Bilirubin Lactate Dehydrogenase Total Creatine Kinase CK-MB (CK-2) C-Reactive Protein 09/28/16 10:47 WBC 30.3 H RBC 3.27 L Hgb 8.1 L Hct 24.4 L MCV 75 L MCH 25 L RDW 18.9 H Seg Neuts % (Manual) Lymphocytes % (Manual) 12.0 L Nucleated RBC % 5.0 H Seg Neutrophils # Man 21.2 H Monocytes # (Manual) 1.8 H Percent Retic INR D-Dimer POC ABG pH POC ABG pCO2 POC ABG pO2 Carbon Dioxide Creatinine Glucose Lactic Acid Calcium Total Bilirubin Lactate Dehydrogenase Total Creatine Kinase CK-MB (CK-2) C-Reactive Protein
--- NOTE | 2016-09-29 21:17 | Consultation ---
History of Present Illness - Reason for Consult Consult date: 09/29/16 - History of Present Illness Patient seen/examined, labs reviewed, case, d/w patient/ spouse at the bed side. she is looking better. She probably will have to be on Cpap machine at home. , she look like she has RXO. Past History Past Medical History: anemia Social history: no significant social history Family history: no significant family history Medications and Allergies Allergies Allergy/AdvReac Type Severity Reaction Status Date / Time No Known Allergies Allergy Unverified 10/13/13 13:21 Home Medications Medication Instructions Recorded Confirmed Last Taken Type Folic Acid [Folvite] 1 mg PO QDAY 10/13/13 09/18/16 09/18/16 History oxyCODONE /ACETAMINOPHEN [Percocet 1 tab PO Q6HR PRN #10 tablet 10/13/1309/18/16 Rx 5/325 mg] Promethazine [Phenergan] 25 mg PO Q6H PRN 08/16/14 09/18/16 09/18/16 History valACYclovir [Valtrex] 500 mg PO DAILY 08/16/14 09/18/16 09/18/16 History Active Meds: Active Medications Acetaminophen (Tylenol) 650 mg PO Q4H PRN PRN Reason: Pain MILD(1-3)/Fever >100.5/PALACIOS Last Admin: 09/28/16 01:57 Dose: 650 mg Albuterol/Ipratropium (Duoneb 0.5 Mg-3 Mg/3 Ml Soln) 1 ampul IH Q6HRT [facility] Last Admin: 09/29/16 20:21 Dose: Not Given Arformoterol Tartrate (Brovana Nebu) 15 mcg IH Q12HRT [facility] Last Admin: 09/29/16 20:20 Dose: 15 mcg Aspirin (Aspirin) 325 mg PO BID [facility] Last Admin: 09/29/16 09:25 Dose: 325 mg Budesonide (Pulmicort) 0.5 mg IH Q12HRT [facility] Last Admin: 09/29/16 20:20 Dose: 0.5 mg Celecoxib (Celebrex) 100 mg PO BID [facility] Last Admin: 09/29/16 09:27 Dose: 100 mg Diphenhydramine HCl (Benadryl) 12.5 mg IV Q4H PRN PRN Reason: Itching Last Admin: 09/29/16 18:35 Dose: 12.5 mg Docusate Sodium (Colace) 100 mg PO BID [facility] Last Admin: 09/29/16 09:26 Dose: 100 mg Enoxaparin Sodium (Lovenox) 40 mg SUB-Q QDAY [facility] Last Admin: 09/29/16 09:25 Dose: 40 mg Famotidine (Pepcid) 20 mg PO QDAY [facility] Folic Acid (Folvite) 1 mg PO QDAY [facility] Last Admin: 09/29/16 09:26 Dose: 1 mg Hydromorphone HCl (Dilaudid) 2 mg IV Q4HR PRN PRN Reason: Severe Pain Last Admin: 09/29/16 18:34 Dose: 2 mg Sodium Chloride (Nacl 0.9% 1000 Ml) 1,000 mls @ 125 mls/hr IV DIRECT [facility] Last Admin: 09/27/16 08:38 Dose: 125 mls/hr Levofloxacin/Dextrose (Levaquin 750mg/150ml) 750 mg in 150 mls @ 100 mls/hr IV Q24HR [facility] PRN Reason: Protocol Last Admin: 09/29/16 09:40 Dose: 100 mls/hr Piperacillin Sod/Tazobactam Sod (Zosyn/Ns 4.5gm/100ml) 4.5 gm in 100 mls @ 200 mls/hr IV Q8HR [facility] PRN Reason: Protocol Last Admin: 09/29/16 14:00 Dose: 200 mls/hr Vancomycin HCl 1,250 mg/ (Sodium Chloride) 275 mls @ 166.667 mls/hr IV Q8HR [facility] Last Admin: 09/29/16 15:00 Dose: 167 mls/hr Ketorolac Tromethamine (Toradol) 30 mg IV Q6H PRN PRN Reason: Pain, Moderate (4-6) Stop: 09/30/16 16:45 Last Admin: 09/28/16 01:57 Dose: 30 mg Multivitamins (Theragran Tab) 1 each PO QDAY [facility] Last Admin: 09/29/16 09:26 Dose: 1 each Ondansetron HCl (Zofran) 4 mg IV Q8H PRN PRN Reason: Nausea And Vomiting Last Admin: 09/25/16 17:52 Dose: 4 mg Oxycodone/Acetaminophen (Percocet 5/325) 1 tab PO Q6H PRN PRN Reason: Pain, Moderate (4-6) Promethazine HCl (Phenergan) 25 mg [place] Q6H PRN PRN Reason: Nausea And Vomiting Last Admin: 09/25/16 22:05 Dose: 25 mg Sodium Chloride (Sodium Chloride Flush Syringe 10 Ml) 10 ml IV PRN PRN PRN Reason: LINE FLUSH Tramadol HCl (Ultram) 50 mg PO Q4H PRN PRN Reason: Pain, Moderate (4-6) Last Admin: 09/26/16 20:45 Dose: 50 mg Valacyclovir HCl (Valtrex) 500 mg PO DAILY [facility] Last Admin: 09/29/16 09:26 Dose: 500 mg Vancomycin HCl (Vancomycin Pharmacy To Dose) 1 each IV PKCONSULT [facility] PRN Reason: Protocol Zolpidem Tartrate (Ambien) 5 mg PO QHS PRN PRN Reason: Sleep Review of Systems Constitutional: chronic pain Breasts: deferred Respiratory: shortness of breath, dyspnea on exertion Musculoskeletal: low back pain Exam - Constitutional Vitals: Temp Pulse Resp BP Pulse Ox 99 F 112 H 18 117/75 96 09/29/16 16:00 09/29/16 20:20 09/29/16 20:20 09/29/16 18:31 09/29/16 18:31 General appearance: Present: mild distress, well-nourished - EENT Eyes: Present: PERRL ENT: hearing intact, clear oral mucosa - Neck Neck: Present: supple, normal ROM - Respiratory Respiratory: bilateral: rhonchi - Cardiovascular Heart Sounds: Present: S1 & S2. Absent: rub, click - Extremities Extremities: pulses symmetrical, No edema Peripheral Pulses: within normal limits - Abdominal General gastrointestinal: Present: soft, non-tender, non-distended, normal bowel sounds Female genitourinary: Present: deferred - Rectal Rectal Exam: deferred - Integumentary Integumentary: Present: clear, warm, dry - Musculoskeletal Musculoskeletal: gait normal, strength equal bilaterally - Psychiatric Psychiatric: appropriate mood/affect, intact judgment & insight - Neurologic Neurologic: CNII-XII intact, moves all extremities Results - Labs CBC & Chem 7: 09/28/16 10:47 09/28/16 10:47 Assessment and Plan - Patient Problems (1) Arthritis of left hip Current Visit: Yes Status: Deleted Plan to address problem: Follow post surgical management. (2) Avascular necrosis of bone of left hip Current Visit: Yes Status: Chronic Plan to address problem: Post surgical pain management., post surgical anticoagulation. (3) Sepsis Current Visit: Yes Status: Acute Qualifiers: Sepsis type: S Plan to address problem: SEE w/up in the notes. (4) Sleep apnea syndrome Current Visit: Yes Status: Acute Qualifiers: Sleep apnea type: S Plan to address problem: oxygen/BIPAP management.
[2016-09-29] MEDS: NACL 0.9% 1000 ML 1,000 ML IV SCH (21:30)
[2016-09-29] MEDS: ZOFRAN IV PRN (23:07)
[2016-09-30] MEDS: VANCOMYCIN 1,250 MG in NACL 0.9% 250ML 250 ML IV SCH ×4 (00:44→22:00)
[2016-09-30] MEDS: DILAUDID IV PRN ×3 (03:32→17:57)
[2016-09-30] MEDS: BENADRYL IV PRN ×2 (03:32→07:02)
[2016-09-30] MEDS ORDERED: AMIDATE IV ONE (05:00)
[2016-09-30] MEDS: ZOSYN/NS 4.5GM/100ML 4.5 GM/100 ML VIAL IV SCH ×3 (05:30→21:59)
[2016-09-30] MEDS: NACL 0.9% 1000 ML 1,000 ML IV SCH (07:02)
--- NOTE | 2016-09-30 09:09 | XRay Report ---
AP CHEST: HISTORY: Follow up pulmonary infiltrates Heart size is stable. Bilateral hazy infiltrates are overall unchanged since yesterday's exam. There is an area of increased density in the left upper lobe when comparing the to previous. No large pleural effusion or pneumothorax is developed. Heart size remains within normal limits. Right [id number] is unchanged. IMPRESSION: No change or perhaps minimal increase in the bilateral infiltrates/pulmonary edema.
[2016-09-30] MEDS ORDERED: PEPCID PO SCH (10:00)
[2016-09-30] MEDS: FOLVITE PO SCH (10:17)
[2016-09-30] MEDS: COLACE PO SCH (10:17)
[2016-09-30] MEDS: THERAGRAN Tab PO SCH (10:18)
[2016-09-30] MEDS: LEVAQUIN 750MG/150ML 750 MG/150 ML BAG IV SCH (10:18)
[2016-09-30] MEDS: LOVENOX SUB-Q SCH (10:18)
[2016-09-30] MEDS: ASPIRIN PO SCH ×2 (10:18→22:00)
[2016-09-30] MEDS: TORADOL IV PRN (10:46)
--- NOTE | 2016-09-30 10:54 | Progress Note ---
Assessment and Plan - Patient Problems (1) Acute respiratory failure with hypoxia Current Visit: Yes Status: Acute Plan to address problem: (Discussed with her again and she finally aggress to intubation) - will intubate - begin ARDS ventilation / LTVV strategies - continue bronchodilators and pulmonary toilet - begin aspiration precautions / VAP bundles (2) ARDS (adult respiratory distress syndrome) Current Visit: Yes Status: Acute Plan to address problem: - 2D ECHO reports normal EF without impaired relaxation - etiology unclear - treating empirically as HCAP (3) Obesity Current Visit: Yes Status: Acute Qualifiers: Obesity type: O Obesity severity: O Plan to address problem: - weight loss counseled earlier (4) Avascular necrosis of bone of left hip Current Visit: Yes Status: Chronic Plan to address problem: - s/p hip replacement surgery (5) Discharge planning issues Current Visit: Yes Status: Acute Plan to address problem: - appears may be a prolonged ICU stay .....she is critically ill on life sustaining interventions including MVS and at risk for further deterioration including 30' CCT Subjective Date of service: 09/30/16 Principal diagnosis: Acute Hypoxemic Respiratory Failure; ARDS Interval history: Seen and examined at bedside; 24 hour events reviewed; nursing and respiratory care staff consulted; no adverse overnight events reported to me; on BIPAP at time of my evaluation; no emesis or overt aspiration; nods head yes to pain question; on 100% FiO2; bilateral pulmonary infiltrates are persistent also Objective Vital Signs - 12hr 09/29/16 09/29/16 09/30/16 23:07 23:37 00:00 Temperature 100.5 F H Pulse Rate Pulse Rate [ 114 H Apical] Respiratory 32 H 28 H 31 H Rate Respiratory Rate [Left Hip] Blood Pressure O2 Sat by Pulse 92 Oximetry 09/30/16 09/30/16 09/30/16 01:00 01:10 01:21 Temperature Pulse Rate 102 H 99 H 100 H Pulse Rate [ Apical] Respiratory 32 H 29 H 23 Rate Respiratory Rate [Left Hip] Blood Pressure 108/61 108/61 108/61 O2 Sat by Pulse 96 100 100 Oximetry 09/30/16 09/30/16 09/30/16 01:31 01:41 01:51 Temperature Pulse Rate 101 H 108 H 100 H Pulse Rate [ Apical] Respiratory 26 H 16 28 H Rate Respiratory Rate [Left Hip] Blood Pressure 108/61 108/61 108/61 O2 Sat by Pulse 100 96 96 Oximetry 09/30/16 09/30/16 09/30/16 02:00 02:11 02:21 Temperature Pulse Rate 99 H 104 H 101 H Pulse Rate [ Apical] Respiratory 32 H 28 H 28 H Rate Respiratory 19 Rate [Left Hip] Blood Pressure 103/61 103/61 103/61 O2 Sat by Pulse 92 97 Oximetry 09/30/16 09/30/16 09/30/16 02:31 02:41 02:51 Temperature Pulse Rate 102 H 104 H 103 H Pulse Rate [ Apical] Respiratory 38 H 33 H 38 H Rate Respiratory Rate [Left Hip] Blood Pressure 103/61 103/61 103/61 O2 Sat by Pulse 95 94 94 Oximetry 09/30/16 09/30/16 09/30/16 03:00 03:11 03:21 Temperature Pulse Rate 105 H 107 H 109 H Pulse Rate [ Apical] Respiratory 35 H 41 H 37 H Rate Respiratory Rate [Left Hip] Blood Pressure 101/68 101/68 101/68 O2 Sat by Pulse 94 93 94 Oximetry 09/30/16 09/30/16 09/30/16 03:31 03:32 03:41 Temperature Pulse Rate 106 H 105 H Pulse Rate [ Apical] Respiratory 31 H 28 H 24 Rate Respiratory Rate [Left Hip] Blood Pressure 101/68 101/68 O2 Sat by Pulse 87 95 Oximetry 09/30/16 09/30/16 09/30/16 03:51 04:00 04:11 Temperature Pulse Rate 106 H 111 H 104 H Pulse Rate [ Apical] Respiratory 22 27 H 24 Rate Respiratory Rate [Left Hip] Blood Pressure 101/68 115/71 115/71 O2 Sat by Pulse 98 93 98 Oximetry 09/30/16 09/30/16 09/30/16 04:21 04:31 04:41 Temperature Pulse Rate 107 H 105 H 104 H Pulse Rate [ Apical] Respiratory 24 32 H 26 H Rate Respiratory Rate [Left Hip] Blood Pressure 115/71 115/71 115/71 O2 Sat by Pulse 97 97 98 Oximetry 09/30/16 09/30/16 09/30/16 04:51 05:00 05:11 Temperature Pulse Rate 105 H 104 H 103 H Pulse Rate [ Apical] Respiratory 36 H 31 H 26 H Rate Respiratory Rate [Left Hip] Blood Pressure 115/71 98/54 98/54 O2 Sat by Pulse 96 95 94 Oximetry 09/30/16 09/30/16 09/30/16 05:21 05:31 05:41 Temperature Pulse Rate 102 H 109 H 100 H Pulse Rate [ Apical] Respiratory 30 H 37 H 28 H Rate Respiratory Rate [Left Hip] Blood Pressure 98/54 98/54 98/54 O2 Sat by Pulse 89 91 96 Oximetry 09/30/16 09/30/16 09/30/16 05:50 06:00 06:11 Temperature Pulse Rate 101 H 105 H 98 H Pulse Rate [ Apical] Respiratory 29 H 39 H 31 H Rate Respiratory 19 Rate [Left Hip] Blood Pressure 98/54 123/67 98/54 O2 Sat by Pulse 94 90 92 Oximetry 09/30/16 09/30/16 09/30/16 06:21 06:31 06:41 Temperature Pulse Rate 103 H 100 H 105 H Pulse Rate [ Apical] Respiratory 37 H 35 H 41 H Rate Respiratory Rate [Left Hip] Blood Pressure 98/54 98/54 123/67 O2 Sat by Pulse 88 91 88 Oximetry 09/30/16 09/30/16 09/30/16 06:51 06:59 07:00 Temperature Pulse Rate 107 H 107 H Pulse Rate [ Apical] Respiratory 40 H 29 H 28 H Rate Respiratory Rate [Left Hip] Blood Pressure 123/67 116/65 O2 Sat by Pulse 87 87 Oximetry 09/30/16 09/30/16 09/30/16 07:11 07:21 07:29 Temperature 97.5 F L Pulse Rate 106 H 105 H Pulse Rate [ Apical] Respiratory 28 H 32 H Rate Respiratory Rate [Left Hip] Blood Pressure 116/65 116/65 O2 Sat by Pulse 97 98 Oximetry 09/30/16 09/30/16 09/30/16 07:31 07:41 07:51 Temperature Pulse Rate 102 H 104 H 107 H Pulse Rate [ Apical] Respiratory 31 H 25 H 30 H Rate Respiratory Rate [Left Hip] Blood Pressure 116/65 116/65 116/65 O2 Sat by Pulse 94 99 89 Oximetry 09/30/16 09/30/16 09/30/16 07:58 08:00 08:01 Temperature Pulse Rate 109 H Pulse Rate [ Apical] Respiratory 21 Rate Respiratory Rate [Left Hip] Blood Pressure 108/59 O2 Sat by Pulse 93 80 L 87 Oximetry 09/30/16 09/30/16 09/30/16 08:11 08:21 08:31 Temperature Pulse Rate 108 H 112 H 110 H Pulse Rate [ Apical] Respiratory 35 H 12 33 H Rate Respiratory Rate [Left Hip] Blood Pressure 116/65 116/65 116/65 O2 Sat by Pulse 88 90 82 L Oximetry 09/30/16 09/30/16 09/30/16 08:41 08:51 09:01 Temperature Pulse Rate 117 H 114 H 119 H Pulse Rate [ Apical] Respiratory 22 25 H 34 H Rate Respiratory Rate [Left Hip] Blood Pressure 116/65 116/65 109/61 O2 Sat by Pulse 79 L 79 L 76 L Oximetry 09/30/16 09/30/16 09/30/16 09:02 09:11 09:21 Temperature Pulse Rate 117 H 112 H Pulse Rate [ Apical] Respiratory 30 H 38 H 35 H Rate Respiratory Rate [Left Hip] Blood Pressure 109/61 109/61 O2 Sat by Pulse 89 93 Oximetry 09/30/16 09/30/16 09/30/16 09:31 09:41 10:00 Temperature Pulse Rate 110 H 109 H Pulse Rate [ Apical] Respiratory 36 H 36 H Rate Respiratory Rate [Left Hip] Blood Pressure 109/61 109/61 O2 Sat by Pulse 91 94 93 Oximetry 09/30/16 09/30/16 09/30/16 10:02 10:06 10:46 Temperature Pulse Rate 112 H Pulse Rate [ Apical] Respiratory 30 H 32 H 41 H Rate Respiratory Rate [Left Hip] Blood Pressure 123/64 O2 Sat by Pulse 91 Oximetry Constitutional: alert, appears uncomfortable Eyes: non-icteric ENT: oropharynx moist Neck: supple, no lymphadenopathy Effort: very labored Ascultation: Bilateral: rales Cardiovascular: regular rate and rhythm Gastrointestinal: normoactive bowel sounds, soft, non-tender Integumentary: normal Extremities: no cyanosis, no edema, pulses normal, no ischemia or petechiae Neurologic: normal mental status, non-focal exam, pupils equal and round, CN II- XII normal Psychiatric: depressed CBC and BMP: 09/28/16 10:47 09/28/16 10:47 ABG, PT/INR, D-dimer: ABG POC ABG pH 7.360 (7.35-7.45) 09/28/16 09:20 POC ABG pCO2 47.2 (35-45) H 09/28/16 09:20 POC ABG pO2 70 (80-105) L 09/28/16 09:20 POC ABG HCO3 26.6 09/28/16 09:20 POC ABG Total CO2 28 09/28/16 09:20 POC ABG O2 Sat 93 09/28/16 09:20 PT/INR, D-dimer PT 14.5 Sec. (12.2-14.9) 09/20/16 10:35 INR 1.14 (0.87-1.13) H 09/20/16 10:35 D-Dimer 4758.12 ng/mlDDU (0-234) H 09/27/16 22:47 Abnormal lab findings: Abnormal Labs 09/20/16 09/20/16 09/20/16 10:35 10:35 10:35 WBC 11.7 H RBC Hgb Hct MCV 75 L MCH 24 L RDW 16.6 H Seg Neuts % (Manual) Lymphocytes % (Manual) Nucleated RBC % Seg Neutrophils # Man Monocytes # (Manual) Percent Retic INR 1.14 H D-Dimer POC ABG pH POC ABG pCO2 POC ABG pO2 Carbon Dioxide Creatinine 0.5 L Glucose 115 H Lactic Acid Calcium Total Bilirubin 2.0 H Lactate Dehydrogenase Total Creatine Kinase CK-MB (CK-2) C-Reactive Protein 09/26/16 09/26/16 09/27/16 04:26 04:26 10:26 WBC RBC Hgb 8.9 L Hct 28.0 L MCV MCH RDW Seg Neuts % (Manual) Lymphocytes % (Manual) Nucleated RBC % Seg Neutrophils # Man Monocytes # (Manual) Percent Retic INR D-Dimer POC ABG pH 7.283 L POC ABG pCO2 45.3 H POC ABG pO2 79 L Carbon Dioxide 20 L Creatinine Glucose 129 H Lactic Acid Calcium 7.6 L Total Bilirubin Lactate Dehydrogenase Total Creatine Kinase CK-MB (CK-2) C-Reactive Protein 09/27/16 09/27/16 09/27/16 14:40 14:40 15:14 WBC 39.3 H RBC Hgb 9.3 L Hct 28.9 L MCV 75 L MCH 24 L RDW 18.7 H Seg Neuts % (Manual) 93.5 H Lymphocytes % (Manual) 5.0 L Nucleated RBC % Seg Neutrophils # Man 36.7 H Monocytes # (Manual) Percent Retic INR D-Dimer POC ABG pH POC ABG pCO2 POC ABG pO2 Carbon Dioxide Creatinine Glucose Lactic Acid 2.9 H* Calcium Total Bilirubin Lactate Dehydrogenase Total Creatine Kinase 3575 H CK-MB (CK-2) 11.0 H C-Reactive Protein 16.10 H 09/27/16 09/27/16 09/27/16 18:05 22:47 22:47 WBC RBC Hgb Hct MCV MCH RDW Seg Neuts % (Manual) Lymphocytes % (Manual) Nucleated RBC % Seg Neutrophils # Man Monocytes # (Manual) Percent Retic INR D-Dimer 4758.12 H POC ABG pH POC ABG pCO2 POC ABG pO2 70 L Carbon Dioxide Creatinine Glucose Lactic Acid Calcium Total Bilirubin Lactate Dehydrogenase 829 H Total Creatine Kinase CK-MB (CK-2) C-Reactive Protein 09/27/16 09/28/16 09/28/16 22:47 09:20 10:47 WBC RBC Hgb Hct MCV MCH RDW Seg Neuts % (Manual) Lymphocytes % (Manual) Nucleated RBC % Seg Neutrophils # Man Monocytes # (Manual) Percent Retic 8.11 H INR D-Dimer POC ABG pH POC ABG pCO2 47.2 H POC ABG pO2 70 L Carbon Dioxide Creatinine 0.6 L Glucose 137 H Lactic Acid Calcium Total Bilirubin Lactate Dehydrogenase Total Creatine Kinase CK-MB (CK-2) C-Reactive Protein 09/28/16 10:47 WBC 30.3 H RBC 3.27 L Hgb 8.1 L Hct 24.4 L MCV 75 L MCH 25 L RDW 18.9 H Seg Neuts % (Manual) Lymphocytes % (Manual) 12.0 L Nucleated RBC % 5.0 H Seg Neutrophils # Man 21.2 H Monocytes # (Manual) 1.8 H Percent Retic INR D-Dimer POC ABG pH POC ABG pCO2 POC ABG pO2 Carbon Dioxide Creatinine Glucose Lactic Acid Calcium Total Bilirubin Lactate Dehydrogenase Total Creatine Kinase CK-MB (CK-2) C-Reactive Protein Chest x-ray: image reviewed
[2016-09-30] MEDS ORDERED: DIPRIVAN 10 MG/ML 1,000 MG/100 ML BOTTLE IV ONE (11:05)
[2016-09-30 11:08] LABS: ISTAT Base Excess 4; ISTAT DEVICE 6; ISTAT HCO3 28.7; ISTAT PCO2 48.8 (35-45); ISTAT PH 7.378 (7.35-7.45); ISTAT PO2 52 (80-105); ISTAT SO2 85; ISTAT TCO2 30
[2016-09-30] MEDS ORDERED: ARTIFICIAL TEARS OPHTH OINT OU PRN (11:09)
[2016-09-30] MEDS ORDERED: VASELINE LIP THERAPY TP PRN (11:09)
--- NOTE | 2016-09-30 11:59 | Event Note ---
Date: 09/30/16 CXR remains consistent with pulmonary edema at intubation very consistent with pulmonary edema re: frothy thin secretions - empiric lasix trial - place llanes catheter in short term - LTVV strategies - re-evaluate serially through the day
[2016-09-30] MEDS ORDERED: ATIVAN 100 MG in NACL 0.9% 50 ML, VIAFLEX EMPTY CONTAINER 0 ML IV SCH (12:00)
--- NOTE | 2016-09-30 12:20 | XRay Report ---
AP CHEST: HISTORY: Endotracheal tube placement An endotracheal tube has been inserted which terminates 4 cm superior to the xavier. A feeding tube has also been inserted which is coiled in the proximal esophagus, replacement is recommended. Bilateral infiltrates or pulmonary edema appears increased by 10-20% since earlier today at 0229 hours. Heart size is stable and within normal limits. No large pleural effusion or pneumothorax has developed. IMPRESSION: Adequate placement of the endotracheal tube. The feeding tube is coiled in the proximal esophagus. Increased bilateral pulmonary edema or infiltrates.
--- NOTE | 2016-09-30 13:46 | XRay Report ---
AP CHEST: HISTORY: PICC placement A left arm PICC has been inserted which terminates in the superior right atrium. The remainder of the examination is unchanged since earlier today at 1140 hrs.
--- NOTE | 2016-09-30 13:47 | XRay Report ---
SUPINE KUB: History: Feeding tube placement. A nasogastric tube terminates in the distal stomach near the pylorus. The abdominal gas pattern is unremarkable. No masses or organomegaly is identified and there is no gross evidence of free air or fluid. No significant soft tissue calcifications are noted. IMPRESSION: Normal study.
[2016-09-30] MEDS: VALTREX PO SCH (14:01)
[2016-09-30] MEDS: PULMICORT IH SCH ×2 (14:20→20:22)
[2016-09-30] MEDS: BROVANA NEBU IH SCH ×2 (14:20→20:22)
[2016-09-30] MEDS: DUONEB 0.5 MG-3 MG/3 ML SOLN IH SCH ×3 (14:21→20:23)
[2016-09-30 14:43] LABS: Hematocrit 20.6 % (30.3-42.9); Hemoglobin 6.9 gm/dl (10.1-14.3); Mean Corpuscular HGB Conc 33 % (30-34); Mean Corpuscular Volume 75 fl (79-97); Platelet Count 212 K/mm3 (140-440); Red Blood Count 2.76 M/mm3 (3.65-5.03); Red Cell Distribution Width 18.7 % (13.2-15.2)
[2016-09-30 14:45] LABS: Mean Corpuscular Hemoglobin 25 pg (28-32); White Blood Count 22.1 K/mm3 (4.5-11.0)
[2016-09-30] MEDS ORDERED: SIMPLE SYRUP FEEDTUBE PRN ×2 (14:47)
[2016-09-30] MEDS ORDERED: SODIUM BICARBONATE FEEDTUBE PRN (14:47)
[2016-09-30] MEDS ORDERED: PANCREAZE DR 10,500 UNIT FEEDTUBE PRN (14:47)
[2016-09-30 14:59] LABS: Anion Gap 13 mmol/L; Blood Urea Nitrogen 7 mg/dL (7-17); Calcium 8.2 mg/dL (8.4-10.2); Carbon Dioxide 28 mmol/L (22-30); Chloride 105.8 mmol/L (98-107); Glucose 116 mg/dL (65-100); Potassium 3.1 mmol/L (3.6-5.0); Sodium 144 mmol/L (137-145)
[2016-09-30 15:27] LABS: ISTAT Base Excess 4; ISTAT HCO3 28.9; ISTAT PCO2 47.8 (35-45); ISTAT PO2 201 (80-105); ISTAT SO2 100; ISTAT TCO2 30
[2016-09-30 15:29] LABS: Blastocytes % (Manual) 0 %
[2016-09-30 15:30] LABS: Basophils % (Manual) 0 % (0.0-1.8); Hypochromasia 1+; Poikilocytosis 1+; Polychromasia Few; Schistocytes 1+
[2016-09-30 15:31] LABS: Anisocytosis 2+
[2016-09-30 15:33] LABS: Target Cells 1+
[2016-09-30 15:34] LABS: Diff Status Complete; Helmet Cells 1+
[2016-09-30] MEDS: fentaNYL DRIP Premix 2,000 MCG/100 ML BAG IV SCH (17:12)
--- NOTE | 2016-09-30 17:15 | Progress Note ---
Assessment and Plan - Patient Problems (1) H/O total hip arthroplasty Current Visit: Yes Status: Acute Qualifiers: Laterality: left Qualified Code(s): Z96.642 - Presence of left artificial hip joint (2) Acute respiratory failure with hypoxia Current Visit: Yes Status: Acute Plan to address problem: management as per Pulmonary/ Int med Subjective Principal diagnosis: Acute Hypoxemic Respiratory Failure; ARDS Objective Vital signs: Vital Signs - 12hr 09/30/16 09/30/16 09/30/16 05:21 05:31 05:41 Temperature Pulse Rate 102 H 109 H 100 H Pulse Rate [ Bilateral Bases ] Respiratory 30 H 37 H 28 H Rate Respiratory Rate [Bilateral Bases] Respiratory Rate [Left Hip] Blood Pressure 98/54 98/54 98/54 O2 Sat by Pulse 89 91 96 Oximetry 09/30/16 09/30/16 09/30/16 05:50 06:00 06:11 Temperature Pulse Rate 101 H 105 H 98 H Pulse Rate [ Bilateral Bases ] Respiratory 29 H 39 H 31 H Rate Respiratory Rate [Bilateral Bases] Respiratory 19 Rate [Left Hip] Blood Pressure 98/54 123/67 98/54 O2 Sat by Pulse 94 90 92 Oximetry 09/30/16 09/30/16 09/30/16 06:21 06:31 06:41 Temperature Pulse Rate 103 H 100 H 105 H Pulse Rate [ Bilateral Bases ] Respiratory 37 H 35 H 41 H Rate Respiratory Rate [Bilateral Bases] Respiratory Rate [Left Hip] Blood Pressure 98/54 98/54 123/67 O2 Sat by Pulse 88 91 88 Oximetry 09/30/16 09/30/16 09/30/16 06:51 06:59 07:00 Temperature Pulse Rate 107 H 107 H Pulse Rate [ Bilateral Bases ] Respiratory 40 H 29 H 28 H Rate Respiratory Rate [Bilateral Bases] Respiratory Rate [Left Hip] Blood Pressure 123/67 116/65 O2 Sat by Pulse 87 87 Oximetry 09/30/16 09/30/16 09/30/16 07:11 07:21 07:29 Temperature 97.5 F L Pulse Rate 106 H 105 H Pulse Rate [ Bilateral Bases ] Respiratory 28 H 32 H Rate Respiratory Rate [Bilateral Bases] Respiratory Rate [Left Hip] Blood Pressure 116/65 116/65 O2 Sat by Pulse 97 98 Oximetry 09/30/16 09/30/16 09/30/16 07:31 07:41 07:51 Temperature Pulse Rate 102 H 104 H 107 H Pulse Rate [ Bilateral Bases ] Respiratory 31 H 25 H 30 H Rate Respiratory Rate [Bilateral Bases] Respiratory Rate [Left Hip] Blood Pressure 116/65 116/65 116/65 O2 Sat by Pulse 94 99 89 Oximetry 09/30/16 09/30/16 09/30/16 07:58 08:00 08:01 Temperature Pulse Rate 109 H Pulse Rate [ Bilateral Bases ] Respiratory 21 Rate Respiratory Rate [Bilateral Bases] Respiratory Rate [Left Hip] Blood Pressure 108/59 O2 Sat by Pulse 93 80 L 87 Oximetry 09/30/16 09/30/16 09/30/16 08:11 08:21 08:31 Temperature Pulse Rate 108 H 112 H 110 H Pulse Rate [ Bilateral Bases ] Respiratory 35 H 12 33 H Rate Respiratory Rate [Bilateral Bases] Respiratory Rate [Left Hip] Blood Pressure 116/65 116/65 116/65 O2 Sat by Pulse 88 90 82 L Oximetry 09/30/16 09/30/16 09/30/16 08:41 08:51 09:01 Temperature Pulse Rate 117 H 114 H 119 H Pulse Rate [ Bilateral Bases ] Respiratory 22 25 H 34 H Rate Respiratory Rate [Bilateral Bases] Respiratory Rate [Left Hip] Blood Pressure 116/65 116/65 109/61 O2 Sat by Pulse 79 L 79 L 76 L Oximetry 09/30/16 09/30/16 09/30/16 09:02 09:11 09:21 Temperature Pulse Rate 117 H 112 H Pulse Rate [ Bilateral Bases ] Respiratory 30 H 38 H 35 H Rate Respiratory Rate [Bilateral Bases] Respiratory Rate [Left Hip] Blood Pressure 109/61 109/61 O2 Sat by Pulse 89 93 Oximetry 09/30/16 09/30/16 09/30/16 09:31 09:41 09:51 Temperature Pulse Rate 110 H 109 H 108 H Pulse Rate [ Bilateral Bases ] Respiratory 36 H 36 H 42 H Rate Respiratory Rate [Bilateral Bases] Respiratory Rate [Left Hip] Blood Pressure 109/61 109/61 109/61 O2 Sat by Pulse 91 94 94 Oximetry 09/30/16 09/30/16 09/30/16 10:00 10:02 10:06 Temperature Pulse Rate 111 H 112 H Pulse Rate [ Bilateral Bases ] Respiratory 36 H 30 H 32 H Rate Respiratory Rate [Bilateral Bases] Respiratory Rate [Left Hip] Blood Pressure 123/64 123/64 O2 Sat by Pulse 84 91 Oximetry 09/30/16 09/30/16 09/30/16 10:11 10:21 10:31 Temperature Pulse Rate 109 H 108 H 112 H Pulse Rate [ Bilateral Bases ] Respiratory 40 H 41 H 42 H Rate Respiratory Rate [Bilateral Bases] Respiratory Rate [Left Hip] Blood Pressure 123/64 109/61 109/61 O2 Sat by Pulse 93 91 91 Oximetry 09/30/16 09/30/16 09/30/16 10:41 10:46 10:51 Temperature Pulse Rate 113 H 116 H Pulse Rate [ Bilateral Bases ] Respiratory 44 H 41 H 44 H Rate Respiratory Rate [Bilateral Bases] Respiratory Rate [Left Hip] Blood Pressure 109/61 138/79 O2 Sat by Pulse 90 90 Oximetry 09/30/16 09/30/16 09/30/16 11:00 11:11 11:21 Temperature Pulse Rate 115 H 117 H 103 H Pulse Rate [ Bilateral Bases ] Respiratory 42 H 47 H 27 H Rate Respiratory Rate [Bilateral Bases] Respiratory Rate [Left Hip] Blood Pressure 138/74 138/74 138/74 O2 Sat by Pulse 92 90 98 Oximetry 09/30/16 09/30/16 09/30/16 11:31 11:41 11:51 Temperature Pulse Rate 94 H 115 H 116 H Pulse Rate [ Bilateral Bases ] Respiratory 21 32 H 39 H Rate Respiratory Rate [Bilateral Bases] Respiratory Rate [Left Hip] Blood Pressure 138/74 138/74 109/60 O2 Sat by Pulse 93 89 80 L Oximetry 09/30/16 09/30/16 09/30/16 12:00 12:11 12:21 Temperature 97.5 F L Pulse Rate 123 H 127 H 114 H Pulse Rate [ Bilateral Bases ] Respiratory 28 H 39 H 33 H Rate Respiratory Rate [Bilateral Bases] Respiratory Rate [Left Hip] Blood Pressure 115/68 115/68 118/69 O2 Sat by Pulse 81 L 90 91 Oximetry 09/30/16 09/30/16 09/30/16 12:30 12:41 12:51 Temperature Pulse Rate 113 H 114 H 114 H Pulse Rate [ Bilateral Bases ] Respiratory 34 H 33 H 32 H Rate Respiratory Rate [Bilateral Bases] Respiratory Rate [Left Hip] Blood Pressure 108/57 108/57 120/61 O2 Sat by Pulse 92 97 97 Oximetry 09/30/16 09/30/16 09/30/16 13:00 13:11 13:21 Temperature Pulse Rate 114 H 112 H 107 H Pulse Rate [ Bilateral Bases ] Respiratory 31 H 31 H 30 H Rate Respiratory Rate [Bilateral Bases] Respiratory Rate [Left Hip] Blood Pressure 112/60 112/60 107/63 O2 Sat by Pulse 97 99 100 Oximetry 09/30/16 09/30/16 09/30/16 13:30 13:41 13:51 Temperature Pulse Rate 110 H 102 H 100 H Pulse Rate [ Bilateral Bases ] Respiratory 37 H 30 H 29 H Rate Respiratory Rate [Bilateral Bases] Respiratory Rate [Left Hip] Blood Pressure 129/66 129/66 108/62 O2 Sat by Pulse 94 100 100 Oximetry 09/30/16 09/30/16 09/30/16 14:00 14:06 14:11 Temperature Pulse Rate 100 H 100 H 100 H Pulse Rate [ 99 H Bilateral Bases ] Respiratory 30 H 28 H Rate Respiratory 28 H Rate [Bilateral Bases] Respiratory Rate [Left Hip] Blood Pressure 117/64 117/64 117/64 O2 Sat by Pulse 100 100 Oximetry 09/30/16 09/30/16 09/30/16 14:21 14:30 14:41 Temperature Pulse Rate 104 H 113 H 112 H Pulse Rate [ Bilateral Bases ] Respiratory 27 H 32 H 31 H Rate Respiratory Rate [Bilateral Bases] Respiratory Rate [Left Hip] Blood Pressure 108/60 119/60 119/60 O2 Sat by Pulse 100 100 Oximetry 09/30/16 09/30/16 09/30/16 14:51 15:00 15:11 Temperature Pulse Rate 108 H 107 H 111 H Pulse Rate [ Bilateral Bases ] Respiratory 30 H 29 H 36 H Rate Respiratory Rate [Bilateral Bases] Respiratory Rate [Left Hip] Blood Pressure 117/60 108/61 108/61 O2 Sat by Pulse 100 98 97 Oximetry 09/30/16 09/30/16 09/30/16 15:21 15:30 15:34 Temperature Pulse Rate 108 H 110 H 108 H Pulse Rate [ Bilateral Bases ] Respiratory 13 36 H Rate Respiratory Rate [Bilateral Bases] Respiratory Rate [Left Hip] Blood Pressure 111/62 116/59 119/59 O2 Sat by Pulse 99 98 99 Oximetry 09/30/16 09/30/16 09/30/16 15:41 15:51 16:00 Temperature Pulse Rate 109 H 108 H 106 H Pulse Rate [ Bilateral Bases ] Respiratory 34 H 32 H 31 H Rate Respiratory Rate [Bilateral Bases] Respiratory Rate [Left Hip] Blood Pressure 116/59 114/61 107/62 O2 Sat by Pulse 100 99 98 Oximetry 09/30/16 09/30/16 09/30/16 16:06 16:11 16:21 Temperature 98.3 F Pulse Rate 103 H 104 H Pulse Rate [ Bilateral Bases ] Respiratory 31 H 31 H Rate Respiratory Rate [Bilateral Bases] Respiratory Rate [Left Hip] Blood Pressure 107/62 107/54 O2 Sat by Pulse 97 97 Oximetry 09/30/16 16:30 Temperature Pulse Rate 103 H Pulse Rate [ Bilateral Bases ] Respiratory 32 H Rate Respiratory Rate [Bilateral Bases] Respiratory Rate [Left Hip] Blood Pressure 105/58 O2 Sat by Pulse 97 Oximetry - Labs CBC & BMP: 09/30/16 14:05 09/30/16 14:05 Labs: Abnormal lab results 09/30/16 09/30/16 09/30/16 Range/Units 11:01 14:05 14:05 WBC 22.1 H (4.5-11.0) K/mm3 RBC 2.76 L (3.65-5.03) M/mm3 Hgb 6.9 L (10.1-14.3) gm/dl Hct 20.6 L (30.3-42.9) % MCV 75 L (79-97) fl MCH 25 L (28-32) pg RDW 18.7 H (13.2-15.2) % Seg Neuts % (Manual) 74.0 H (40.0-70.0) % Lymphocytes % (Manual) 7.0 L (13.4-35.0) % Nucleated RBC % 52.0 H (0.0-0.9) % Seg Neutrophils # Man 16.4 H (1.8-7.7) K/mm3 POC ABG pCO2 48.8 H (35-45) POC ABG pO2 52 L (80-105) Potassium (3.6-5.0) mmol/L Creatinine (0.7-1.2) mg/dL Glucose (65-100) mg/dL Calcium (8.4-10.2) mg/dL C-Reactive Protein (0.00-1.30) mg/dL NT-Pro-B Natriuret Pep 2018 H (0-450) pg/mL 09/30/16 09/30/16 09/30/16 Range/Units 14:05 14:05 14:33 WBC (4.5-11.0) K/mm3 RBC (3.65-5.03) M/mm3 Hgb (10.1-14.3) gm/dl Hct (30.3-42.9) % MCV (79-97) fl MCH (28-32) pg RDW (13.2-15.2) % Seg Neuts % (Manual) (40.0-70.0) % Lymphocytes % (Manual) (13.4-35.0) % Nucleated RBC % (0.0-0.9) % Seg Neutrophils # Man (1.8-7.7) K/mm3 POC ABG pCO2 47.8 H (35-45) POC ABG pO2 201 H (80-105) Potassium 3.1 L (3.6-5.0) mmol/L Creatinine 0.5 L (0.7-1.2) mg/dL Glucose 116 H (65-100) mg/dL Calcium 8.2 L (8.4-10.2) mg/dL C-Reactive Protein 30.80 H (0.00-1.30) mg/dL NT-Pro-B Natriuret Pep (0-450) pg/mL
[2016-09-30] MEDS: LASIX IV SCH (17:47)
[2016-09-30] MEDS: MIDAZOLAM 100 MG in NACL 0.9% 80 ML IV SCH (17:58)
--- NOTE | 2016-09-30 20:49 | Consultation ---
History of Present Illness - Reason for Consult Consult date: 09/30/16 - History of Present Illness Patient seen/examined, labs reviewed, case d/w her spouse at the bed side. Patient was intubated today.Awoke/alert, interactive. Past History Past Medical History: anemia Social history: no significant social history Family history: no significant family history Medications and Allergies Allergies Allergy/AdvReac Type Severity Reaction Status Date / Time No Known Allergies Allergy Unverified 10/13/13 13:21 Home Medications Medication Instructions Recorded Confirmed Last Taken Type Folic Acid [Folvite] 1 mg PO QDAY 10/13/13 09/18/16 09/18/16 History oxyCODONE /ACETAMINOPHEN [Percocet 1 tab PO Q6HR PRN #10 tablet 10/13/1309/18/16 Rx 5/325 mg] Promethazine [Phenergan] 25 mg PO Q6H PRN 08/16/14 09/18/16 09/18/16 History valACYclovir [Valtrex] 500 mg PO DAILY 08/16/14 09/18/16 09/18/16 History Active Meds: Active Medications Acetaminophen (Tylenol) 650 mg PO Q4H PRN PRN Reason: Pain MILD(1-3)/Fever >100.5/PALACIOS Last Admin: 09/28/16 01:57 Dose: 650 mg Albuterol/Ipratropium (Duoneb 0.5 Mg-3 Mg/3 Ml Soln) 1 ampul IH Q6HRT [facility] Last Admin: 09/30/16 20:23 Dose: Not Given Lipase/Protease/Amylase (Fritz Mayers 10,500 Unit) 1 each FEEDTUBE PRN PRN PRN Reason: For Clogged Feeding Tube Arformoterol Tartrate (Brovana Nebu) 15 mcg IH Q12HRT [facility] Last Admin: 09/30/16 20:22 Dose: 15 mcg Aspirin (Aspirin) 325 mg PO BID [facility] Last Admin: 09/30/16 10:18 Dose: 325 mg Budesonide (Pulmicort) 0.5 mg IH Q12HRT [facility] Last Admin: 09/30/16 20:22 Dose: 0.5 mg Celecoxib (Celebrex) 100 mg PO BID [facility] Last Admin: 09/30/16 14:56 Dose: Not Given Diphenhydramine HCl (Benadryl) 12.5 mg IV Q4H PRN PRN Reason: Itching Last Admin: 09/30/16 07:02 Dose: 12.5 mg Docusate Sodium (Colace) 100 mg PO BID [facility] Last Admin: 09/30/16 10:17 Dose: 100 mg Enoxaparin Sodium (Lovenox) 40 mg SUB-Q QDAY [facility] Last Admin: 09/30/16 10:18 Dose: 40 mg Famotidine (Pepcid) 20 mg PO BID [facility] Folic Acid (Folvite) 1 mg PO QDAY [facility] Last Admin: 09/30/16 10:17 Dose: 1 mg Furosemide (Lasix) 20 mg IV 0600,1800 [facility] Stop: 10/02/16 06:01 Last Admin: 09/30/16 17:47 Dose: 20 mg Hydromorphone HCl (Dilaudid) 2 mg IV Q4HR PRN PRN Reason: Severe Pain Last Admin: 09/30/16 17:57 Dose: 2 mg Hydrophilic Ointment (Vaseline Lip Therapy) 1 applic TP Q2HR PRN PRN Reason: Dry Lips Levofloxacin/Dextrose (Levaquin 750mg/150ml) 750 mg in 150 mls @ 100 mls/hr IV Q24HR [facility] PRN Reason: Protocol Last Admin: 09/30/16 10:18 Dose: 100 mls/hr Piperacillin Sod/Tazobactam Sod (Zosyn/Ns 4.5gm/100ml) 4.5 gm in 100 mls @ 200 mls/hr IV Q8HR [facility] PRN Reason: Protocol Last Admin: 09/30/16 13:59 Dose: 200 mls/hr Vancomycin HCl 1,250 mg/ (Sodium Chloride) 275 mls @ 166.667 mls/hr IV Q8HR [facility] Last Admin: 09/30/16 17:14 Dose: 167 mls/hr Fentanyl Citrate (Fentanyl Drip Premix) 2,000 mcg in 100 mls @ 4.649 mls/hr IV TITR SADAF; 1 MCG/KG/HR PRN Reason: Protocol Last Admin: 09/30/16 17:12 Dose: 2 mcg/kg/hr, 9.299 mls/hr Propofol (Diprivan 10 Mg/Ml) 1,000 mg in 100 mls @ 2.79 mls/hr IV TITR SADAF; 5 MCG/KG/MIN PRN Reason: Protocol Midazolam HCl 100 mg/ Sodium (Chloride) 100 mls @ 2 mls/hr IV TITR SADAF; 2 MG/HR PRN Reason: Protocol Last Admin: 09/30/16 17:58 Dose: 1 mg/hr, 1 mls/hr Multi-Ingred Cream/Lotion/Oil/Oint (Artificial Tears Ophth Oint) 1 applic OU Q4HR PRN PRN Reason: Dry Eye(s) Multivitamins (Theragran Tab) 1 each PO QDAY [facility] Last Admin: 09/30/16 10:18 Dose: 1 each Ondansetron HCl (Zofran) 4 mg IV Q8H PRN PRN Reason: Nausea And Vomiting Last Admin: 09/29/16 23:07 Dose: 4 mg Oxycodone/Acetaminophen (Percocet 5/325) 1 tab PO Q6H PRN PRN Reason: Pain, Moderate (4-6) Last Admin: 09/30/16 09:02 Dose: 1 tab Promethazine HCl (Phenergan) 25 mg ME Q6H PRN PRN Reason: Nausea And Vomiting Last Admin: 09/25/16 22:05 Dose: 25 mg Simple Syrup (Simple Syrup) 15 ml FEEDTUBE PRN PRN PRN Reason: Hypoglycemia Simple Syrup (Simple Syrup) 30 ml FEEDTUBE PRN PRN PRN Reason: Hypoglycemia Sodium Bicarbonate (Sodium Bicarbonate) 325 mg FEEDTUBE PRN PRN PRN Reason: For Clogged Feeding Tube Sodium Chloride (Sodium Chloride Flush Syringe 10 Ml) 10 ml IV PRN PRN PRN Reason: LINE FLUSH Tramadol HCl (Ultram) 50 mg PO Q4H PRN PRN Reason: Pain, Moderate (4-6) Last Admin: 09/26/16 20:45 Dose: 50 mg Valacyclovir HCl (Valtrex) 500 mg PO DAILY [facility] Last Admin: 09/30/16 14:01 Dose: 500 mg Vancomycin HCl (Vancomycin Pharmacy To Dose) 1 each IV PKCONSULT SADAF PRN Reason: Protocol Zolpidem Tartrate (Ambien) 5 mg PO QHS PRN PRN Reason: Sleep Review of Systems Constitutional: chronic pain Breasts: deferred Respiratory: sleep apnea Musculoskeletal: low back pain Exam - Constitutional Vitals: Temp Pulse Resp BP Pulse Ox 98.3 F 115 H 29 H 104/56 96 09/30/16 16:06 09/30/16 20:23 09/30/16 20:23 09/30/16 20:12 09/30/16 20:12 General appearance: Present: severe distress, well-nourished - EENT Eyes: Present: PERRL ENT: hearing intact, clear oral mucosa - Neck Neck: Present: supple, normal ROM - Respiratory Respiratory: bilateral: rhonchi - Cardiovascular Heart Sounds: Present: S1 & S2. Absent: rub, click - Extremities Extremities: pulses symmetrical, No edema Peripheral Pulses: within normal limits - Abdominal General gastrointestinal: Present: soft, non-tender, non-distended, normal bowel sounds Female genitourinary: Present: deferred - Rectal Rectal Exam: deferred - Integumentary Integumentary: Present: clear, warm, dry - Musculoskeletal Musculoskeletal: gait normal, strength equal bilaterally - Psychiatric Psychiatric: appropriate mood/affect, intact judgment & insight - Neurologic Neurologic: CNII-XII intact, moves all extremities Results - Labs CBC & Chem 7: 09/30/16 14:05 09/30/16 14:05 Labs: Abnormal lab results 09/30/16 09/30/16 09/30/16 Range/Units 11:01 14:05 14:05 WBC 22.1 H (4.5-11.0) K/mm3 RBC 2.76 L (3.65-5.03) M/mm3 Hgb 6.9 L (10.1-14.3) gm/dl Hct 20.6 L (30.3-42.9) % MCV 75 L (79-97) fl MCH 25 L (28-32) pg RDW 18.7 H (13.2-15.2) % Seg Neuts % (Manual) 74.0 H (40.0-70.0) % Lymphocytes % (Manual) 7.0 L (13.4-35.0) % Nucleated RBC % 52.0 H (0.0-0.9) % Seg Neutrophils # Man 16.4 H (1.8-7.7) K/mm3 POC ABG pCO2 48.8 H (35-45) POC ABG pO2 52 L (80-105) Potassium (3.6-5.0) mmol/L Creatinine (0.7-1.2) mg/dL Glucose (65-100) mg/dL Calcium (8.4-10.2) mg/dL C-Reactive Protein (0.00-1.30) mg/dL NT-Pro-B Natriuret Pep 2018 H (0-450) pg/mL 09/30/16 09/30/16 09/30/16 Range/Units 14:05 14:05 14:33 WBC (4.5-11.0) K/mm3 RBC (3.65-5.03) M/mm3 Hgb (10.1-14.3) gm/dl Hct (30.3-42.9) % MCV (79-97) fl MCH (28-32) pg RDW (13.2-15.2) % Seg Neuts % (Manual) (40.0-70.0) % Lymphocytes % (Manual) (13.4-35.0) % Nucleated RBC % (0.0-0.9) % Seg Neutrophils # Man (1.8-7.7) K/mm3 POC ABG pCO2 47.8 H (35-45) POC ABG pO2 201 H (80-105) Potassium 3.1 L (3.6-5.0) mmol/L Creatinine 0.5 L (0.7-1.2) mg/dL Glucose 116 H (65-100) mg/dL Calcium 8.2 L (8.4-10.2) mg/dL C-Reactive Protein 30.80 H (0.00-1.30) mg/dL NT-Pro-B Natriuret Pep (0-450) pg/mL Assessment and Plan - Patient Problems (1) Arthritis of left hip Current Visit: Yes Status: Deleted Plan to address problem: Follow post surgical management. (2) Avascular necrosis of bone of left hip Current Visit: Yes Status: Chronic Plan to address problem: Post surgical pain management., post surgical anticoagulation. (3) Sepsis Current Visit: Yes Status: Acute Qualifiers: Sepsis type: S Plan to address problem: SEE w/up in the notes. (4) Sleep apnea syndrome Current Visit: Yes Status: Acute Qualifiers: Sleep apnea type: S Plan to address problem: oxygen/BIPAP management. Patient now in full resp failure, and on the vent.
[2016-09-30] MEDS: PEPCID PO SCH (22:02)
[2016-09-30] MEDS ORDERED: NACL 0.9% 500 ML 500 ML IV ONE (23:47)
[2016-10-01] MEDS: KCL 10MEQ/100ML 10 MEQ/100 ML BAG IV SCH ×3 (01:00→05:53)
[2016-10-01 01:41] LABS: Hematocrit 20.8 % (30.3-42.9); Hemoglobin 6.8 gm/dl (10.1-14.3); Mean Corpuscular HGB Conc 33 % (30-34); Mean Corpuscular Volume 74 fl (79-97); Platelet Count 194 K/mm3 (140-440); Red Cell Distribution Width 18.6 % (13.2-15.2)
[2016-10-01 01:47] LABS: Mean Corpuscular Hemoglobin 24 pg (28-32); White Blood Count 26.1 K/mm3 (4.5-11.0)
[2016-10-01] MEDS: DUONEB 0.5 MG-3 MG/3 ML SOLN IH SCH ×4 (02:09→19:05)
[2016-10-01 02:43] LABS: Anisocytosis 2+; Basophils % (Manual) 0 % (0.0-1.8); Blastocytes % (Manual) 0 %; Eosinophils % (Manual) 0 % (0.0-4.3); Poikilocytosis 1+; Schistocytes 1+; Target Cells 1+
[2016-10-01 02:44] LABS: Diff Status Complete
[2016-10-01 05:37] LABS: ISTAT Base Excess 7; ISTAT HCO3 32.8; ISTAT PCO2 58.5 (35-45); ISTAT PH 7.357 (7.35-7.45); ISTAT PO2 149 (80-105); ISTAT SO2 99; ISTAT TCO2 35
[2016-10-01] MEDS: LASIX IV SCH ×2 (05:49→17:41)
[2016-10-01 05:57] LABS: Anion Gap 22 mmol/L; BUN/Creatinine Ratio 11.42; Blood Urea Nitrogen 8 mg/dL (7-17); Calcium 8.3 mg/dL (8.4-10.2); Carbon Dioxide 25 mmol/L (22-30); Glucose 90 mg/dL (65-100); Sodium 149 mmol/L (137-145)
--- NOTE | 2016-10-01 07:50 | XRay Report ---
AP CHEST: HISTORY: Followup respiratory failure Lines and tubes remain in adequate position. Increased diffuse bilateral infiltrates with air bronchograms is demonstrated over multiple previous exams. This could represent bilateral pneumonia, pulmonary edema or ARDS. Heart size remains stable at the upper limits of normal. No large pleural effusion or pneumothorax. IMPRESSION: Increased bilateral infiltrates. ARDS? Bilateral pneumonia? Flor[place] pulmonary edema?
[2016-10-01] MEDS: VANCOMYCIN 1,250 MG in NACL 0.9% 250ML 250 ML IV SCH ×2 (07:54→19:54)
[2016-10-01] MEDS: PULMICORT IH SCH ×2 (08:22→19:05)
[2016-10-01] MEDS: BROVANA NEBU IH SCH ×2 (08:22→19:05)
[2016-10-01] MEDS: LEVAQUIN 750MG/150ML 750 MG/150 ML BAG IV SCH (10:20)
[2016-10-01] MEDS: POTASSIUM CHLORIDE FEEDTUBE SCH ×2 (10:21→13:10)
[2016-10-01] MEDS: FOLVITE PO SCH (10:21)
[2016-10-01] MEDS: LOVENOX SUB-Q SCH (10:21)
[2016-10-01] MEDS: THERAGRAN Tab PO SCH (10:22)
[2016-10-01] MEDS: VALTREX PO SCH (10:22)
[2016-10-01] MEDS: ASPIRIN PO SCH ×2 (10:22→22:11)
--- NOTE | 2016-10-01 10:27 | Progress Note ---
Assessment and Plan The patient is a 41-year-old female with a history of sickle cell disease who was admitted for total hip arthroplasty for avascular necrosis of the left hip. She had left total hip arthroplasty on 09/25/2016 and developed acute hypoxemic respiratory failure following the POD 2 likely from ARDS and ultimately required intubation on 09/27/2016. Her hemoglobin level dropped from 8.1-6.9 on 09/30/2016, also noted to have hypokalemia with potassium level 3.1. Hospitalist service consulted for medical management. Acute respiratory failure - likely due to ARDS, intubated on 09/27/16 - on mechanical ventilation with 80% FiO2 - pulmonary following, cont nebulizer, vent support - wean off as tolerated Severe anemia - likely due to sickle cell crisis - transfuse 2 units PRBC - monitor h and H - hematology following Avscular necrosis of the left hip - s/p total left hip arthoplasty on 09/25/16 Hypokalemia - cont to replete and monitor The high probability of a clinically significant, sudden or life threatening deterioration of the system(s) required my full and direct attention, intervention and personal management. The aggregate critical care time was [35] minutes. This time is in addition to time spent performing reported procedures but includes the following: [x] Data Review and interpretation [x] Patient assessment and monitoring of vital signs [x] Documentation [x] Medication orders and management Subjective Date of service: 10/01/16 Principal diagnosis: Acute Hypoxemic Respiratory Failure; ARDS Interval history: Patient seen and examined. Medical records and medication list reviewed. No acute event overnight noted by the RN. Patient remained intubated and sedated Discussed plan of care at bedside with RN. Objective - Exam Narrative Exam: GENERAL: well-developed and well-nourished [place] female lying on bed appeared to be in no discomfort. HEENT: Normocephalic. Atraumatic. No conjunctival congestion or icterus. Patient has moist mucous membranes. NECK: Supple. Trachea midline. ET tube in place CHEST/LUNGS: Coarse breath sounds auscultated bilaterally, on mechanical ventilation HEART/CARDIOVASCULAR: Regular in rate and rhythm. S1 and S2 positive. ABDOMEN: Abdomen is soft, nontender. Patient has normal bowel sounds. SKIN: There is no rash. Warm and dry. NEURO: Sedated. MUSCULOSKELETAL: No joint effusion or tenderness. EXTRIMITY: No edema, no cyanosis or clubbing. PSYCH: Unable to assess. - Constitutional Vitals: Vital Signs - 12hr 09/30/16 09/30/16 09/30/16 22:30 22:41 22:51 Temperature Pulse Rate 122 H 125 H 122 H Pulse Rate [ Anterior Bilateral Throughout] Pulse Rate [ Left Radial] Respiratory 33 H 34 H 35 H Rate Respiratory Rate [Anterior Bilateral Throughout] Respiratory Rate [Left Hip] Blood Pressure 122/58 122/58 126/65 O2 Sat by Pulse 88 89 91 Oximetry 09/30/16 09/30/16 09/30/16 23:00 23:01 23:11 Temperature Pulse Rate 124 H 123 H 124 H Pulse Rate [ Anterior Bilateral Throughout] Pulse Rate [ Left Radial] Respiratory 34 H 33 H 29 H Rate Respiratory Rate [Anterior Bilateral Throughout] Respiratory Rate [Left Hip] Blood Pressure 105/59 105/59 105/59 O2 Sat by Pulse 87 89 84 Oximetry 09/30/16 09/30/16 09/30/16 23:21 23:30 23:41 Temperature Pulse Rate 126 H 123 H 124 H Pulse Rate [ Anterior Bilateral Throughout] Pulse Rate [ Left Radial] Respiratory 31 H 35 H 35 H Rate Respiratory Rate [Anterior Bilateral Throughout] Respiratory Rate [Left Hip] Blood Pressure 96/57 125/56 125/56 O2 Sat by Pulse 89 84 87 Oximetry 09/30/16 10/01/16 10/01/16 23:51 00:00 00:11 Temperature 98.2 F Pulse Rate 123 H 121 H 121 H Pulse Rate [ Anterior Bilateral Throughout] Pulse Rate [ Left Radial] Respiratory 32 H 31 H 28 H Rate Respiratory Rate [Anterior Bilateral Throughout] Respiratory Rate [Left Hip] Blood Pressure 119/58 109/58 109/58 O2 Sat by Pulse 97 92 96 Oximetry 10/01/16 10/01/16 10/01/16 00:21 00:24 00:30 Temperature Pulse Rate 119 H 122 H 122 H Pulse Rate [ Anterior Bilateral Throughout] Pulse Rate [ Left Radial] Respiratory 28 H 32 H Rate Respiratory Rate [Anterior Bilateral Throughout] Respiratory Rate [Left Hip] Blood Pressure 102/58 102/58 119/58 O2 Sat by Pulse 91 94 87 Oximetry 10/01/16 10/01/16 10/01/16 00:41 00:51 01:00 Temperature Pulse Rate 114 H 112 H 112 H Pulse Rate [ Anterior Bilateral Throughout] Pulse Rate [ Left Radial] Respiratory 28 H 29 H 31 H Rate Respiratory Rate [Anterior Bilateral Throughout] Respiratory Rate [Left Hip] Blood Pressure 119/58 103/49 109/52 O2 Sat by Pulse 100 100 99 Oximetry 10/01/16 10/01/16 10/01/16 01:11 01:21 01:30 Temperature Pulse Rate 111 H 111 H 111 H Pulse Rate [ Anterior Bilateral Throughout] Pulse Rate [ Left Radial] Respiratory 30 H 32 H 29 H Rate Respiratory Rate [Anterior Bilateral Throughout] Respiratory Rate [Left Hip] Blood Pressure 109/52 108/58 103/52 O2 Sat by Pulse 100 100 98 Oximetry 10/01/16 10/01/16 10/01/16 01:41 01:51 02:00 Temperature Pulse Rate 112 H 107 H 97 H Pulse Rate [ Anterior Bilateral Throughout] Pulse Rate [ Left Radial] Respiratory 30 H 30 H 29 H Rate Respiratory Rate [Anterior Bilateral Throughout] Respiratory Rate [Left Hip] Blood Pressure 103/52 98/48 100/48 O2 Sat by Pulse 99 100 100 Oximetry 10/01/16 10/01/16 10/01/16 02:10 02:11 02:19 Temperature Pulse Rate 99 H Pulse Rate [ 95 H 99 H Anterior Bilateral Throughout] Pulse Rate [ Left Radial] Respiratory 27 H Rate Respiratory 27 H 31 H Rate [Anterior Bilateral Throughout] Respiratory Rate [Left Hip] Blood Pressure 100/48 O2 Sat by Pulse 99 Oximetry 10/01/16 10/01/16 10/01/16 02:21 02:30 02:41 Temperature Pulse Rate 108 H 114 H 105 H Pulse Rate [ Anterior Bilateral Throughout] Pulse Rate [ Left Radial] Respiratory 36 H 31 H 30 H Rate Respiratory Rate [Anterior Bilateral Throughout] Respiratory Rate [Left Hip] Blood Pressure 98/49 97/54 97/54 O2 Sat by Pulse 94 100 Oximetry 10/01/16 10/01/16 10/01/16 02:51 03:00 03:11 Temperature Pulse Rate 103 H 104 H 96 H Pulse Rate [ Anterior Bilateral Throughout] Pulse Rate [ Left Radial] Respiratory 29 H 26 H 28 H Rate Respiratory Rate [Anterior Bilateral Throughout] Respiratory Rate [Left Hip] Blood Pressure 97/54 99/44 97/54 O2 Sat by Pulse 100 100 100 Oximetry 10/01/16 10/01/16 10/01/16 03:21 03:30 03:41 Temperature Pulse Rate 91 H 93 H 95 H Pulse Rate [ Anterior Bilateral Throughout] Pulse Rate [ Left Radial] Respiratory 27 H 26 H 26 H Rate Respiratory Rate [Anterior Bilateral Throughout] Respiratory Rate [Left Hip] Blood Pressure 97/54 83/44 90/45 O2 Sat by Pulse 100 100 100 Oximetry 10/01/16 10/01/16 10/01/16 03:50 04:00 04:06 Temperature 98.8 F 98.8 F Pulse Rate 101 H 97 H Pulse Rate [ Anterior Bilateral Throughout] Pulse Rate [ Left Radial] Respiratory 31 H 27 H Rate Respiratory Rate [Anterior Bilateral Throughout] Respiratory Rate [Left Hip] Blood Pressure 98/50 89/40 O2 Sat by Pulse 100 99 Oximetry 10/01/16 10/01/16 10/01/16 04:10 04:20 04:29 Temperature Pulse Rate 96 H 98 H 98 H Pulse Rate [ Anterior Bilateral Throughout] Pulse Rate [ Left Radial] Respiratory 26 H 25 H Rate Respiratory Rate [Anterior Bilateral Throughout] Respiratory Rate [Left Hip] Blood Pressure 93/47 95/50 95/50 O2 Sat by Pulse 100 100 100 Oximetry 10/01/16 10/01/16 10/01/16 04:30 04:41 04:45 Temperature 98.2 F Pulse Rate 100 H 101 H Pulse Rate [ Anterior Bilateral Throughout] Pulse Rate [ Left Radial] Respiratory 27 H 27 H Rate Respiratory Rate [Anterior Bilateral Throughout] Respiratory Rate [Left Hip] Blood Pressure 96/52 93/50 O2 Sat by Pulse 100 100 Oximetry 10/01/16 10/01/16 10/01/16 04:51 05:00 05:01 Temperature 97.4 F L Pulse Rate 102 H 109 H 94 H Pulse Rate [ Anterior Bilateral Throughout] Pulse Rate [ 89 Left Radial] Respiratory 26 H 24 27 H Rate Respiratory Rate [Anterior Bilateral Throughout] Respiratory Rate [Left Hip] Blood Pressure 93/50 102/58 93/50 O2 Sat by Pulse 100 100 100 Oximetry 10/01/16 10/01/16 10/01/16 05:05 05:11 05:21 Temperature 97.6 F Pulse Rate 102 H 100 H Pulse Rate [ Anterior Bilateral Throughout] Pulse Rate [ 89 Left Radial] Respiratory 24 27 H 26 H Rate Respiratory Rate [Anterior Bilateral Throughout] Respiratory Rate [Left Hip] Blood Pressure 102/58 93/50 93/50 O2 Sat by Pulse 100 100 100 Oximetry 10/01/16 10/01/16 10/01/16 05:30 05:40 05:45 Temperature 97.4 F L 98.1 F Pulse Rate 106 H 98 H 106 H Pulse Rate [ Anterior Bilateral Throughout] Pulse Rate [ Left Radial] Respiratory 27 H 28 H 27 H Rate Respiratory Rate [Anterior Bilateral Throughout] Respiratory Rate [Left Hip] Blood Pressure 117/64 90/48 117/64 O2 Sat by Pulse 99 99 Oximetry 10/01/16 10/01/16 10/01/16 05:50 06:00 06:10 Temperature Pulse Rate 97 H 101 H 98 H Pulse Rate [ Anterior Bilateral Throughout] Pulse Rate [ Left Radial] Respiratory 27 H 28 H 29 H Rate Respiratory Rate [Anterior Bilateral Throughout] Respiratory Rate [Left Hip] Blood Pressure 90/50 103/55 105/51 O2 Sat by Pulse 99 100 99 Oximetry 10/01/16 10/01/16 10/01/16 06:20 06:30 06:41 Temperature Pulse Rate 98 H 88 85 Pulse Rate [ Anterior Bilateral Throughout] Pulse Rate [ Left Radial] Respiratory 26 H 25 H 25 H Rate Respiratory Rate [Anterior Bilateral Throughout] Respiratory Rate [Left Hip] Blood Pressure 94/48 95/47 94/46 O2 Sat by Pulse 99 100 100 Oximetry 10/01/16 10/01/16 10/01/16 06:51 07:00 07:11 Temperature Pulse Rate 93 H 84 93 H Pulse Rate [ Anterior Bilateral Throughout] Pulse Rate [ Left Radial] Respiratory 25 H 25 H 25 H Rate Respiratory Rate [Anterior Bilateral Throughout] Respiratory Rate [Left Hip] Blood Pressure 92/48 93/46 93/46 O2 Sat by Pulse 100 99 100 Oximetry 10/01/16 10/01/16 10/01/16 07:21 07:30 07:41 Temperature Pulse Rate 88 90 89 Pulse Rate [ Anterior Bilateral Throughout] Pulse Rate [ Left Radial] Respiratory 25 H 25 H 25 H Rate Respiratory Rate [Anterior Bilateral Throughout] Respiratory Rate [Left Hip] Blood Pressure 95/48 85/44 88/48 O2 Sat by Pulse 100 99 100 Oximetry 10/01/16 10/01/16 10/01/16 07:44 07:51 08:00 Temperature 98.7 F 98.7 F Pulse Rate 90 89 100 H Pulse Rate [ 98 H Anterior Bilateral Throughout] Pulse Rate [ Left Radial] Respiratory 25 H 25 H 25 H Rate Respiratory 24 Rate [Anterior Bilateral Throughout] Respiratory Rate [Left Hip] Blood Pressure 88/48 94/47 89/45 O2 Sat by Pulse 100 100 100 Oximetry 10/01/16 10/01/16 10/01/16 08:11 08:16 08:21 Temperature 98.3 F Pulse Rate 88 108 H Pulse Rate [ Anterior Bilateral Throughout] Pulse Rate [ Left Radial] Respiratory 25 H 19 Rate Respiratory Rate [Anterior Bilateral Throughout] Respiratory Rate [Left Hip] Blood Pressure 84/42 94/47 O2 Sat by Pulse 100 87 Oximetry 10/01/16 10/01/16 10/01/16 08:22 08:30 08:41 Temperature 99.0 F Pulse Rate 103 H 104 H 104 H Pulse Rate [ Anterior Bilateral Throughout] Pulse Rate [ Left Radial] Respiratory 25 H 25 H 25 H Rate Respiratory Rate [Anterior Bilateral Throughout] Respiratory Rate [Left Hip] Blood Pressure 96/50 96/50 96/50 O2 Sat by Pulse 100 100 100 Oximetry 10/01/16 10/01/16 10/01/16 08:51 08:52 08:57 Temperature 97.7 F 99.4 F Pulse Rate 105 H 104 H 10 L Pulse Rate [ Anterior Bilateral Throughout] Pulse Rate [ Left Radial] Respiratory 25 H 25 H 25 H Rate Respiratory Rate [Anterior Bilateral Throughout] Respiratory Rate [Left Hip] Blood Pressure 94/46 94/46 94/49 O2 Sat by Pulse 100 100 Oximetry 10/01/16 10/01/16 10/01/16 09:00 09:11 09:14 Temperature 98.9 F Pulse Rate 101 H 102 H 105 H Pulse Rate [ Anterior Bilateral Throughout] Pulse Rate [ Left Radial] Respiratory 25 H 25 H 22 Rate Respiratory Rate [Anterior Bilateral Throughout] Respiratory Rate [Left Hip] Blood Pressure 94/49 94/49 102/58 O2 Sat by Pulse 100 100 100 Oximetry 10/01/16 10/01/16 10/01/16 09:21 09:30 09:41 Temperature Pulse Rate 109 H 113 H 107 H Pulse Rate [ Anterior Bilateral Throughout] Pulse Rate [ Left Radial] Respiratory 24 27 H 28 H Rate Respiratory Rate [Anterior Bilateral Throughout] Respiratory 26 H Rate [Left Hip] Blood Pressure 102/58 117/64 117/64 O2 Sat by Pulse 100 95 95 Oximetry 10/01/16 10/01/16 10/01/16 09:44 09:51 10:00 Temperature 99.1 F Pulse Rate 106 H 107 H 104 H Pulse Rate [ Anterior Bilateral Throughout] Pulse Rate [ Left Radial] Respiratory 27 H 28 H 27 H Rate Respiratory Rate [Anterior Bilateral Throughout] Respiratory Rate [Left Hip] Blood Pressure 117/64 97/50 97/47 O2 Sat by Pulse 100 96 Oximetry 10/01/16 10/01/16 10/01/16 10:11 10:14 10:23 Temperature 98.5 F Pulse Rate 103 H 105 H Pulse Rate [ Anterior Bilateral Throughout] Pulse Rate [ Left Radial] Respiratory 26 H 30 H 31 H Rate Respiratory Rate [Anterior Bilateral Throughout] Respiratory Rate [Left Hip] Blood Pressure 97/47 97/47 O2 Sat by Pulse 97 Oximetry - Labs CBC & Chem 7: 10/02/16 06:00 10/02/16 06:00 Labs: Abnormal lab results 09/30/16 09/30/16 09/30/16 Range/Units 11:01 14:05 14:05 WBC 22.1 H (4.5-11.0) K/mm3 RBC 2.76 L (3.65-5.03) M/mm3 Hgb 6.9 L (10.1-14.3) gm/dl Hct 20.6 L (30.3-42.9) % MCV 75 L (79-97) fl MCH 25 L (28-32) pg RDW 18.7 H (13.2-15.2) % Seg Neuts % (Manual) 74.0 H (40.0-70.0) % Lymphocytes % (Manual) 7.0 L (13.4-35.0) % Nucleated RBC % 52.0 H (0.0-0.9) % Seg Neutrophils # Man 16.4 H (1.8-7.7) K/mm3 Monocytes # (Manual) (0.0-0.8) K/mm3 POC ABG pCO2 48.8 H (35-45) POC ABG pO2 52 L (80-105) Sodium (137-145) mmol/L Potassium (3.6-5.0) mmol/L Creatinine (0.7-1.2) mg/dL Glucose (65-100) mg/dL Calcium (8.4-10.2) mg/dL C-Reactive Protein (0.00-1.30) mg/dL NT-Pro-B Natriuret Pep 2018 H (0-450) pg/mL Crossmatch 09/30/16 09/30/16 09/30/16 Range/Units 14:05 14:05 14:33 WBC (4.5-11.0) K/mm3 RBC (3.65-5.03) M/mm3 Hgb (10.1-14.3) gm/dl Hct (30.3-42.9) % MCV (79-97) fl MCH (28-32) pg RDW (13.2-15.2) % Seg Neuts % (Manual) (40.0-70.0) % Lymphocytes % (Manual) (13.4-35.0) % Nucleated RBC % (0.0-0.9) % Seg Neutrophils # Man (1.8-7.7) K/mm3 Monocytes # (Manual) (0.0-0.8) K/mm3 POC ABG pCO2 47.8 H (35-45) POC ABG pO2 201 H (80-105) Sodium (137-145) mmol/L Potassium 3.1 L (3.6-5.0) mmol/L Creatinine 0.5 L (0.7-1.2) mg/dL Glucose 116 H (65-100) mg/dL Calcium 8.2 L (8.4-10.2) mg/dL C-Reactive Protein 30.80 H (0.00-1.30) mg/dL NT-Pro-B Natriuret Pep (0-450) pg/mL Crossmatch 10/01/16 10/01/16 10/01/16 Range/Units 00:55 00:55 04:57 WBC 26.1 H (4.5-11.0) K/mm3 RBC 2.80 L (3.65-5.03) M/mm3 Hgb 6.8 L (10.1-14.3) gm/dl Hct 20.8 L (30.3-42.9) % MCV 74 L (79-97) fl MCH 24 L (28-32) pg RDW 18.6 H (13.2-15.2) % Seg Neuts % (Manual) 85.0 H (40.0-70.0) % Lymphocytes % (Manual) 11.0 L (13.4-35.0) % Nucleated RBC % 21.0 H (0.0-0.9) % Seg Neutrophils # Man 22.2 H (1.8-7.7) K/mm3 Monocytes # (Manual) 1.0 H (0.0-0.8) K/mm3 POC ABG pCO2 58.5 H (35-45) POC ABG pO2 149 H (80-105) Sodium (137-145) mmol/L Potassium (3.6-5.0) mmol/L Creatinine (0.7-1.2) mg/dL Glucose (65-100) mg/dL Calcium (8.4-10.2) mg/dL C-Reactive Protein (0.00-1.30) mg/dL NT-Pro-B Natriuret Pep (0-450) pg/mL Crossmatch See Detail 10/01/16 Range/Units 05:00 WBC (4.5-11.0) K/mm3 RBC (3.65-5.03) M/mm3 Hgb (10.1-14.3) gm/dl Hct (30.3-42.9) % MCV (79-97) fl MCH (28-32) pg RDW (13.2-15.2) % Seg Neuts % (Manual) (40.0-70.0) % Lymphocytes % (Manual) (13.4-35.0) % Nucleated RBC % (0.0-0.9) % Seg Neutrophils # Man (1.8-7.7) K/mm3 Monocytes # (Manual) (0.0-0.8) K/mm3 POC ABG pCO2 (35-45) POC ABG pO2 (80-105) Sodium 149 H (137-145) mmol/L Potassium 3.0 L (3.6-5.0) mmol/L Creatinine (0.7-1.2) mg/dL Glucose (65-100) mg/dL Calcium 8.3 L (8.4-10.2) mg/dL C-Reactive Protein (0.00-1.30) mg/dL NT-Pro-B Natriuret Pep (0-450) pg/mL Crossmatch
[2016-10-01] MEDS: PEPCID PO SCH ×2 (10:31→22:12)
--- NOTE | 2016-10-01 10:42 | Progress Note ---
Assessment and Plan - Patient Problems (1) Acute respiratory failure with hypoxia Current Visit: Yes Status: Acute Plan to address problem: - continue diuresis in short term - continue ARDS ventilation / LTVV strategies - continue bronchodilators and pulmonary toilet - continue aspiration precautions / VAP bundles - serial ABG's - continue empiric AB's (2) ARDS (adult respiratory distress syndrome) Current Visit: Yes Status: Acute Plan to address problem: - 2D ECHO reports normal EF without impaired relaxation - etiology unclear - treating empirically as HCAP - continue gentle diuresis - increase Peep if oxygenation does not improve and follow PIP's ? plateau pressures (3) Obesity Current Visit: Yes Status: Acute Qualifiers: Obesity type: O Obesity severity: O Plan to address problem: - weight loss counselled earlier - outpatient sleep clinic evaluation (4) Avascular necrosis of bone of left hip Current Visit: Yes Status: Chronic Plan to address problem: - s/p hip replacement surgery - per orthopedic surgeon (5) Anemia Current Visit: Yes Status: Acute Qualifiers: Anemia type: A Iron deficiency anemia type: I Vitamin B12 deficiency anemia type: V Folate deficiency anemia type: F Bone marrow failure anemia type: B Hemolytic anemia type: H Other causes of anemia: O Plan to address problem: - multifactorial - suspect ABLA component - h/o sickle cell - prn PRBC transfusions - hematology following (6) Discharge planning issues Current Visit: Yes Status: Acute Plan to address problem: - appears may be a prolonged ICU stay .....she is critically ill on life sustaining interventions including MVS and at risk for further deterioration including 34' CCT Subjective Date of service: 10/01/16 Principal diagnosis: Acute Hypoxemic Respiratory Failure; ARDS Interval history: Seen and examined at bedside; 24 hour events reviewed; nursing and respiratory care staff consulted; no adverse overnight events reported to me; remains on MVS ; on 85% FiO2 and peep of 14; ultimately agitated during sedation holiday but followed commands appropriately initially; no emesis or overt aspiration ad no gross bleeding Objective Vital Signs - 12hr 09/30/16 09/30/16 09/30/16 22:51 23:00 23:01 Temperature Pulse Rate 122 H 124 H 123 H Pulse Rate [ Anterior Bilateral Throughout] Pulse Rate [ Left Radial] Respiratory 35 H 34 H 33 H Rate Respiratory Rate [Anterior Bilateral Throughout] Respiratory Rate [Left Hip] Blood Pressure 126/65 105/59 105/59 O2 Sat by Pulse 91 87 89 Oximetry 09/30/16 09/30/16 09/30/16 23:11 23:21 23:30 Temperature Pulse Rate 124 H 126 H 123 H Pulse Rate [ Anterior Bilateral Throughout] Pulse Rate [ Left Radial] Respiratory 29 H 31 H 35 H Rate Respiratory Rate [Anterior Bilateral Throughout] Respiratory Rate [Left Hip] Blood Pressure 105/59 96/57 125/56 O2 Sat by Pulse 84 89 84 Oximetry 09/30/16 09/30/16 10/01/16 23:41 23:51 00:00 Temperature 98.2 F Pulse Rate 124 H 123 H 121 H Pulse Rate [ Anterior Bilateral Throughout] Pulse Rate [ Left Radial] Respiratory 35 H 32 H 31 H Rate Respiratory Rate [Anterior Bilateral Throughout] Respiratory Rate [Left Hip] Blood Pressure 125/56 119/58 109/58 O2 Sat by Pulse 87 97 92 Oximetry 10/01/16 10/01/16 10/01/16 00:11 00:21 00:24 Temperature Pulse Rate 121 H 119 H 122 H Pulse Rate [ Anterior Bilateral Throughout] Pulse Rate [ Left Radial] Respiratory 28 H 28 H Rate Respiratory Rate [Anterior Bilateral Throughout] Respiratory Rate [Left Hip] Blood Pressure 109/58 102/58 102/58 O2 Sat by Pulse 96 91 94 Oximetry 10/01/16 10/01/16 10/01/16 00:30 00:41 00:51 Temperature Pulse Rate 122 H 114 H 112 H Pulse Rate [ Anterior Bilateral Throughout] Pulse Rate [ Left Radial] Respiratory 32 H 28 H 29 H Rate Respiratory Rate [Anterior Bilateral Throughout] Respiratory Rate [Left Hip] Blood Pressure 119/58 119/58 103/49 O2 Sat by Pulse 87 100 100 Oximetry 10/01/16 10/01/16 10/01/16 01:00 01:11 01:21 Temperature Pulse Rate 112 H 111 H 111 H Pulse Rate [ Anterior Bilateral Throughout] Pulse Rate [ Left Radial] Respiratory 31 H 30 H 32 H Rate Respiratory Rate [Anterior Bilateral Throughout] Respiratory Rate [Left Hip] Blood Pressure 109/52 109/52 108/58 O2 Sat by Pulse 99 100 100 Oximetry 10/01/16 10/01/16 10/01/16 01:30 01:41 01:51 Temperature Pulse Rate 111 H 112 H 107 H Pulse Rate [ Anterior Bilateral Throughout] Pulse Rate [ Left Radial] Respiratory 29 H 30 H 30 H Rate Respiratory Rate [Anterior Bilateral Throughout] Respiratory Rate [Left Hip] Blood Pressure 103/52 103/52 98/48 O2 Sat by Pulse 98 99 100 Oximetry 10/01/16 10/01/16 10/01/16 02:00 02:10 02:11 Temperature Pulse Rate 97 H 99 H Pulse Rate [ 95 H Anterior Bilateral Throughout] Pulse Rate [ Left Radial] Respiratory 29 H 27 H Rate Respiratory 27 H Rate [Anterior Bilateral Throughout] Respiratory Rate [Left Hip] Blood Pressure 100/48 100/48 O2 Sat by Pulse 100 99 Oximetry 10/01/16 10/01/16 10/01/16 02:19 02:21 02:30 Temperature Pulse Rate 108 H 114 H Pulse Rate [ 99 H Anterior Bilateral Throughout] Pulse Rate [ Left Radial] Respiratory 36 H 31 H Rate Respiratory 31 H Rate [Anterior Bilateral Throughout] Respiratory Rate [Left Hip] Blood Pressure 98/49 97/54 O2 Sat by Pulse 94 Oximetry 10/01/16 10/01/16 10/01/16 02:41 02:51 03:00 Temperature Pulse Rate 105 H 103 H 104 H Pulse Rate [ Anterior Bilateral Throughout] Pulse Rate [ Left Radial] Respiratory 30 H 29 H 26 H Rate Respiratory Rate [Anterior Bilateral Throughout] Respiratory Rate [Left Hip] Blood Pressure 97/54 97/54 99/44 O2 Sat by Pulse 100 100 100 Oximetry 10/01/16 10/01/16 10/01/16 03:11 03:21 03:30 Temperature Pulse Rate 96 H 91 H 93 H Pulse Rate [ Anterior Bilateral Throughout] Pulse Rate [ Left Radial] Respiratory 28 H 27 H 26 H Rate Respiratory Rate [Anterior Bilateral Throughout] Respiratory Rate [Left Hip] Blood Pressure 97/54 97/54 83/44 O2 Sat by Pulse 100 100 100 Oximetry 10/01/16 10/01/16 10/01/16 03:41 03:50 04:00 Temperature 98.8 F Pulse Rate 95 H 101 H 97 H Pulse Rate [ Anterior Bilateral Throughout] Pulse Rate [ Left Radial] Respiratory 26 H 31 H 27 H Rate Respiratory Rate [Anterior Bilateral Throughout] Respiratory Rate [Left Hip] Blood Pressure 90/45 98/50 89/40 O2 Sat by Pulse 100 100 99 Oximetry 10/01/16 10/01/16 10/01/16 04:06 04:10 04:20 Temperature 98.8 F Pulse Rate 96 H 98 H Pulse Rate [ Anterior Bilateral Throughout] Pulse Rate [ Left Radial] Respiratory 26 H 25 H Rate Respiratory Rate [Anterior Bilateral Throughout] Respiratory Rate [Left Hip] Blood Pressure 93/47 95/50 O2 Sat by Pulse 100 100 Oximetry 10/01/16 10/01/16 10/01/16 04:29 04:30 04:41 Temperature Pulse Rate 98 H 100 H 101 H Pulse Rate [ Anterior Bilateral Throughout] Pulse Rate [ Left Radial] Respiratory 27 H 27 H Rate Respiratory Rate [Anterior Bilateral Throughout] Respiratory Rate [Left Hip] Blood Pressure 95/50 96/52 93/50 O2 Sat by Pulse 100 100 100 Oximetry 10/01/16 10/01/16 10/01/16 04:45 04:51 05:00 Temperature 98.2 F 97.4 F L Pulse Rate 102 H 109 H Pulse Rate [ Anterior Bilateral Throughout] Pulse Rate [ 89 Left Radial] Respiratory 26 H 24 Rate Respiratory Rate [Anterior Bilateral Throughout] Respiratory Rate [Left Hip] Blood Pressure 93/50 102/58 O2 Sat by Pulse 100 100 Oximetry 10/01/16 10/01/16 10/01/16 05:01 05:05 05:11 Temperature 97.6 F Pulse Rate 94 H 102 H Pulse Rate [ Anterior Bilateral Throughout] Pulse Rate [ 89 Left Radial] Respiratory 27 H 24 27 H Rate Respiratory Rate [Anterior Bilateral Throughout] Respiratory Rate [Left Hip] Blood Pressure 93/50 102/58 93/50 O2 Sat by Pulse 100 100 100 Oximetry 10/01/16 10/01/16 10/01/16 05:21 05:30 05:40 Temperature 97.4 F L Pulse Rate 100 H 106 H 98 H Pulse Rate [ Anterior Bilateral Throughout] Pulse Rate [ Left Radial] Respiratory 26 H 27 H 28 H Rate Respiratory Rate [Anterior Bilateral Throughout] Respiratory Rate [Left Hip] Blood Pressure 93/50 117/64 90/48 O2 Sat by Pulse 100 99 99 Oximetry 10/01/16 10/01/16 10/01/16 05:45 05:50 06:00 Temperature 98.1 F 97.9 F Pulse Rate 106 H 97 H 105 H Pulse Rate [ Anterior Bilateral Throughout] Pulse Rate [ Left Radial] Respiratory 27 H 27 H 31 H Rate Respiratory Rate [Anterior Bilateral Throughout] Respiratory Rate [Left Hip] Blood Pressure 117/64 90/50 97/47 O2 Sat by Pulse 99 100 Oximetry 10/01/16 10/01/16 10/01/16 06:10 06:15 06:20 Temperature 97.9 F Pulse Rate 98 H 105 H 98 H Pulse Rate [ Anterior Bilateral Throughout] Pulse Rate [ Left Radial] Respiratory 29 H 31 H 26 H Rate Respiratory Rate [Anterior Bilateral Throughout] Respiratory Rate [Left Hip] Blood Pressure 105/51 97/47 94/48 O2 Sat by Pulse 99 99 Oximetry 10/01/16 10/01/16 10/01/16 06:30 06:41 06:45 Temperature 98.5 F 98.1 F Pulse Rate 105 H 85 105 H Pulse Rate [ Anterior Bilateral Throughout] Pulse Rate [ Left Radial] Respiratory 31 H 25 H 31 H Rate Respiratory Rate [Anterior Bilateral Throughout] Respiratory Rate [Left Hip] Blood Pressure 97/47 94/46 97/47 O2 Sat by Pulse 100 100 Oximetry 10/01/16 10/01/16 10/01/16 06:51 07:00 07:11 Temperature Pulse Rate 93 H 84 93 H Pulse Rate [ Anterior Bilateral Throughout] Pulse Rate [ Left Radial] Respiratory 25 H 25 H 25 H Rate Respiratory Rate [Anterior Bilateral Throughout] Respiratory Rate [Left Hip] Blood Pressure 92/48 93/46 93/46 O2 Sat by Pulse 100 99 100 Oximetry 10/01/16 10/01/16 10/01/16 07:21 07:30 07:41 Temperature Pulse Rate 88 90 89 Pulse Rate [ Anterior Bilateral Throughout] Pulse Rate [ Left Radial] Respiratory 25 H 25 H 25 H Rate Respiratory Rate [Anterior Bilateral Throughout] Respiratory Rate [Left Hip] Blood Pressure 95/48 85/44 88/48 O2 Sat by Pulse 100 99 100 Oximetry 10/01/16 10/01/16 10/01/16 07:44 07:51 08:00 Temperature 98.7 F 98.7 F Pulse Rate 90 89 100 H Pulse Rate [ 98 H Anterior Bilateral Throughout] Pulse Rate [ Left Radial] Respiratory 25 H 25 H 25 H Rate Respiratory 24 Rate [Anterior Bilateral Throughout] Respiratory Rate [Left Hip] Blood Pressure 88/48 94/47 89/45 O2 Sat by Pulse 100 100 100 Oximetry 10/01/16 10/01/16 10/01/16 08:11 08:16 08:21 Temperature 98.3 F Pulse Rate 88 108 H Pulse Rate [ Anterior Bilateral Throughout] Pulse Rate [ Left Radial] Respiratory 25 H 19 Rate Respiratory Rate [Anterior Bilateral Throughout] Respiratory Rate [Left Hip] Blood Pressure 84/42 94/47 O2 Sat by Pulse 100 87 Oximetry 10/01/16 10/01/16 10/01/16 08:22 08:30 08:41 Temperature 99.0 F Pulse Rate 103 H 104 H 104 H Pulse Rate [ Anterior Bilateral Throughout] Pulse Rate [ Left Radial] Respiratory 25 H 25 H 25 H Rate Respiratory Rate [Anterior Bilateral Throughout] Respiratory Rate [Left Hip] Blood Pressure 96/50 96/50 96/50 O2 Sat by Pulse 100 100 100 Oximetry 10/01/16 10/01/16 10/01/16 08:51 08:52 08:57 Temperature 97.7 F 99.4 F Pulse Rate 105 H 104 H 10 L Pulse Rate [ Anterior Bilateral Throughout] Pulse Rate [ Left Radial] Respiratory 25 H 25 H 25 H Rate Respiratory Rate [Anterior Bilateral Throughout] Respiratory Rate [Left Hip] Blood Pressure 94/46 94/46 94/49 O2 Sat by Pulse 100 100 Oximetry 10/01/16 10/01/16 10/01/16 09:00 09:11 09:14 Temperature 98.9 F Pulse Rate 101 H 102 H 105 H Pulse Rate [ Anterior Bilateral Throughout] Pulse Rate [ Left Radial] Respiratory 25 H 25 H 22 Rate Respiratory Rate [Anterior Bilateral Throughout] Respiratory Rate [Left Hip] Blood Pressure 94/49 94/49 102/58 O2 Sat by Pulse 100 100 100 Oximetry 10/01/16 10/01/16 10/01/16 09:21 09:30 09:41 Temperature Pulse Rate 109 H 113 H 107 H Pulse Rate [ Anterior Bilateral Throughout] Pulse Rate [ Left Radial] Respiratory 24 27 H 28 H Rate Respiratory Rate [Anterior Bilateral Throughout] Respiratory 26 H Rate [Left Hip] Blood Pressure 102/58 117/64 117/64 O2 Sat by Pulse 100 95 95 Oximetry 10/01/16 10/01/16 10/01/16 09:44 09:51 10:00 Temperature 99.1 F Pulse Rate 106 H 107 H 104 H Pulse Rate [ Anterior Bilateral Throughout] Pulse Rate [ Left Radial] Respiratory 27 H 28 H 27 H Rate Respiratory Rate [Anterior Bilateral Throughout] Respiratory Rate [Left Hip] Blood Pressure 117/64 97/50 97/47 O2 Sat by Pulse 100 96 Oximetry 10/01/16 10/01/16 10/01/16 10:11 10:14 10:21 Temperature 98.5 F Pulse Rate 103 H 105 H 106 H Pulse Rate [ Anterior Bilateral Throughout] Pulse Rate [ Left Radial] Respiratory 26 H 30 H 30 H Rate Respiratory Rate [Anterior Bilateral Throughout] Respiratory Rate [Left Hip] Blood Pressure 97/47 97/47 97/51 O2 Sat by Pulse 97 82 L Oximetry 10/01/16 10:23 Temperature Pulse Rate Pulse Rate [ Anterior Bilateral Throughout] Pulse Rate [ Left Radial] Respiratory 31 H Rate Respiratory Rate [Anterior Bilateral Throughout] Respiratory Rate [Left Hip] Blood Pressure O2 Sat by Pulse Oximetry Constitutional: other (sedated) Eyes: non-icteric ENT: oropharynx moist Neck: supple, no lymphadenopathy Effort: mildly labored Ascultation: Bilateral: rales Cardiovascular: regular rate and rhythm Gastrointestinal: normoactive bowel sounds, soft, non-tender Integumentary: normal Extremities: no cyanosis, no edema, pulses normal, no ischemia or petechiae Neurologic: normal mental status, non-focal exam, pupils equal and round, CN II- XII normal Psychiatric: depressed CBC and BMP: 10/02/16 06:00 10/02/16 06:00 ABG, PT/INR, D-dimer: ABG POC ABG pH 7.357 (7.35-7.45) 10/01/16 04:57 POC ABG pCO2 58.5 (35-45) H 10/01/16 04:57 POC ABG pO2 149 (80-105) H 10/01/16 04:57 POC ABG HCO3 32.8 10/01/16 04:57 POC ABG Total CO2 35 10/01/16 04:57 POC ABG O2 Sat 99 10/01/16 04:57 PT/INR, D-dimer PT 14.5 Sec. (12.2-14.9) 09/20/16 10:35 INR 1.14 (0.87-1.13) H 09/20/16 10:35 D-Dimer 4758.12 ng/mlDDU (0-234) H 09/27/16 22:47 Abnormal lab findings: Abnormal Labs 09/20/16 09/20/16 09/20/16 10:35 10:35 10:35 WBC 11.7 H RBC Hgb Hct MCV 75 L MCH 24 L RDW 16.6 H Seg Neuts % (Manual) Lymphocytes % (Manual) Nucleated RBC % Seg Neutrophils # Man Monocytes # (Manual) Percent Retic INR 1.14 H D-Dimer POC ABG pH POC ABG pCO2 POC ABG pO2 Sodium Potassium Carbon Dioxide Creatinine 0.5 L Glucose 115 H Lactic Acid Calcium Total Bilirubin 2.0 H Lactate Dehydrogenase Total Creatine Kinase CK-MB (CK-2) C-Reactive Protein NT-Pro-B Natriuret Pep Crossmatch 09/26/16 09/26/16 09/27/16 04:26 04:26 10:26 WBC RBC Hgb 8.9 L Hct 28.0 L MCV MCH RDW Seg Neuts % (Manual) Lymphocytes % (Manual) Nucleated RBC % Seg Neutrophils # Man Monocytes # (Manual) Percent Retic INR D-Dimer POC ABG pH 7.283 L POC ABG pCO2 45.3 H POC ABG pO2 79 L Sodium Potassium Carbon Dioxide 20 L Creatinine Glucose 129 H Lactic Acid Calcium 7.6 L Total Bilirubin Lactate Dehydrogenase Total Creatine Kinase CK-MB (CK-2) C-Reactive Protein NT-Pro-B Natriuret Pep Crossmatch 09/27/16 09/27/16 09/27/16 14:40 14:40 15:14 WBC 39.3 H RBC Hgb 9.3 L Hct 28.9 L MCV 75 L MCH 24 L RDW 18.7 H Seg Neuts % (Manual) 93.5 H Lymphocytes % (Manual) 5.0 L Nucleated RBC % Seg Neutrophils # Man 36.7 H Monocytes # (Manual) Percent Retic INR D-Dimer POC ABG pH POC ABG pCO2 POC ABG pO2 Sodium Potassium Carbon Dioxide Creatinine Glucose Lactic Acid 2.9 H* Calcium Total Bilirubin Lactate Dehydrogenase Total Creatine Kinase 3575 H CK-MB (CK-2) 11.0 H C-Reactive Protein 16.10 H NT-Pro-B Natriuret Pep Crossmatch 09/27/16 09/27/16 09/27/16 18:05 22:47 22:47 WBC RBC Hgb Hct MCV MCH RDW Seg Neuts % (Manual) Lymphocytes % (Manual) Nucleated RBC % Seg Neutrophils # Man Monocytes # (Manual) Percent Retic INR D-Dimer 4758.12 H POC ABG pH POC ABG pCO2 POC ABG pO2 70 L Sodium Potassium Carbon Dioxide Creatinine Glucose Lactic Acid Calcium Total Bilirubin Lactate Dehydrogenase 829 H Total Creatine Kinase CK-MB (CK-2) C-Reactive Protein NT-Pro-B Natriuret Pep Crossmatch 09/27/16 09/28/16 09/28/16 22:47 09:20 10:47 WBC RBC Hgb Hct MCV MCH RDW Seg Neuts % (Manual) Lymphocytes % (Manual) Nucleated RBC % Seg Neutrophils # Man Monocytes # (Manual) Percent Retic 8.11 H INR D-Dimer POC ABG pH POC ABG pCO2 47.2 H POC ABG pO2 70 L Sodium Potassium Carbon Dioxide Creatinine 0.6 L Glucose 137 H Lactic Acid Calcium Total Bilirubin Lactate Dehydrogenase Total Creatine Kinase CK-MB (CK-2) C-Reactive Protein NT-Pro-B Natriuret Pep Crossmatch 09/28/16 09/30/16 09/30/16 10:47 11:01 14:05 WBC 30.3 H RBC 3.27 L Hgb 8.1 L Hct 24.4 L MCV 75 L MCH 25 L RDW 18.9 H Seg Neuts % (Manual) Lymphocytes % (Manual) 12.0 L Nucleated RBC % 5.0 H Seg Neutrophils # Man 21.2 H Monocytes # (Manual) 1.8 H Percent Retic INR D-Dimer POC ABG pH POC ABG pCO2 48.8 H POC ABG pO2 52 L Sodium Potassium Carbon Dioxide Creatinine Glucose Lactic Acid Calcium Total Bilirubin Lactate Dehydrogenase Total Creatine Kinase CK-MB (CK-2) C-Reactive Protein NT-Pro-B Natriuret Pep 2018 H Crossmatch 09/30/16 09/30/16 09/30/16 14:05 14:05 14:05 WBC 22.1 H RBC 2.76 L Hgb 6.9 L Hct 20.6 L MCV 75 L MCH 25 L RDW 18.7 H Seg Neuts % (Manual) 74.0 H Lymphocytes % (Manual) 7.0 L Nucleated RBC % 52.0 H Seg Neutrophils # Man 16.4 H Monocytes # (Manual) Percent Retic INR D-Dimer POC ABG pH POC ABG pCO2 POC ABG pO2 Sodium Potassium 3.1 L Carbon Dioxide Creatinine 0.5 L Glucose 116 H Lactic Acid Calcium 8.2 L Total Bilirubin Lactate Dehydrogenase Total Creatine Kinase CK-MB (CK-2) C-Reactive Protein 30.80 H NT-Pro-B Natriuret Pep Crossmatch 09/30/16 10/01/16 10/01/16 14:33 00:55 00:55 WBC 26.1 H RBC 2.80 L Hgb 6.8 L Hct 20.8 L MCV 74 L MCH 24 L RDW 18.6 H Seg Neuts % (Manual) 85.0 H Lymphocytes % (Manual) 11.0 L Nucleated RBC % 21.0 H Seg Neutrophils # Man 22.2 H Monocytes # (Manual) 1.0 H Percent Retic INR D-Dimer POC ABG pH POC ABG pCO2 47.8 H POC ABG pO2 201 H Sodium Potassium Carbon Dioxide Creatinine Glucose Lactic Acid Calcium Total Bilirubin Lactate Dehydrogenase Total Creatine Kinase CK-MB (CK-2) C-Reactive Protein NT-Pro-B Natriuret Pep Crossmatch See Detail 10/01/16 10/01/16 04:57 05:00 WBC RBC Hgb Hct MCV MCH RDW Seg Neuts % (Manual) Lymphocytes % (Manual) Nucleated RBC % Seg Neutrophils # Man Monocytes # (Manual) Percent Retic INR D-Dimer POC ABG pH POC ABG pCO2 58.5 H POC ABG pO2 149 H Sodium 149 H Potassium 3.0 L Carbon Dioxide Creatinine Glucose Lactic Acid Calcium 8.3 L Total Bilirubin Lactate Dehydrogenase Total Creatine Kinase CK-MB (CK-2) C-Reactive Protein NT-Pro-B Natriuret Pep Crossmatch Chest x-ray: image reviewed
[2016-10-01] MEDS: fentaNYL DRIP Premix 2,000 MCG/100 ML BAG IV SCH ×2 (10:53→20:04)
[2016-10-01] MEDS ORDERED: D5W/0.45% NACL/KCL 10 MEQ 10 MEQ/1,000 ML BAG IV SCH (11:00)
[2016-10-01] MEDS ORDERED: NACL 0.9% 500 ML 500 ML IV SCH (12:00)
[2016-10-01] MEDS: ZOSYN/NS 4.5GM/100ML 4.5 GM/100 ML VIAL IV SCH ×3 (13:11→22:29)
[2016-10-01] MEDS: SENOKOT PO SCH (13:13)
[2016-10-01] MEDS ORDERED: CATHFLO IV ONE (14:44)
[2016-10-01] MEDS ORDERED: WATER FOR INJ (PF) IV ONE (15:00)
[2016-10-01 16:21] LABS: Hematocrit 27.6 % (30.3-42.9); Hemoglobin 8.9 gm/dl (10.1-14.3); Mean Corpuscular HGB Conc 32 % (30-34); Mean Corpuscular Volume 78 fl (79-97); Red Blood Count 3.55 M/mm3 (3.65-5.03); Red Cell Distribution Width 18.1 % (13.2-15.2)
[2016-10-01 16:31] LABS: White Blood Count 27.6 K/mm3 (4.5-11.0)
[2016-10-01 16:32] LABS: Mean Corpuscular Hemoglobin 25 pg (28-32); Platelet Count 169 K/mm3 (140-440)
[2016-10-01 19:00] LABS: Anisocytosis 1+; Basophils % (Manual) 0 % (0.0-1.8); Blastocytes % (Manual) 0 %; Elliptocytes Few; Hypochromasia 2+; Polychromasia 1+; Target Cells 1+
[2016-10-01 19:01] LABS: Diff Status Complete; Helmet Cells Few; Large Platelets 1+; Platelet Estimate Consistent w Auto
--- NOTE | 2016-10-01 20:03 | Consultation ---
History of Present Illness - Reason for Consult Consult date: 10/01/16 - History of Present Illness Patient seen/examined, labs/record reviewed, no family around at this time.she is still on the vent. Latest cxray b/l pna/infiltrate vs ARDS/pulm edema, wbc 26,000, Ddimer 4,000 plus. Past History Past Medical History: anemia Social history: no significant social history Family history: no significant family history Medications and Allergies Allergies Allergy/AdvReac Type Severity Reaction Status Date / Time No Known Allergies Allergy Unverified 10/13/13 13:21 Home Medications Medication Instructions Recorded Confirmed Last Taken Type Folic Acid [Folvite] 1 mg PO QDAY 10/13/13 09/18/16 09/18/16 History oxyCODONE /ACETAMINOPHEN [Percocet 1 tab PO Q6HR PRN #10 tablet 10/13/1309/18/16 Rx 5/325 mg] Promethazine [Phenergan] 25 mg PO Q6H PRN 08/16/14 09/18/16 09/18/16 History valACYclovir [Valtrex] 500 mg PO DAILY 08/16/14 09/18/16 09/18/16 History Active Meds: Active Medications Acetaminophen (Tylenol) 650 mg PO Q4H PRN PRN Reason: Pain MILD(1-3)/Fever >100.5/PALACIOS Last Admin: 09/28/16 01:57 Dose: 650 mg Albuterol/Ipratropium (Duoneb 0.5 Mg-3 Mg/3 Ml Soln) 1 ampul IH Q6HRT [facility] Last Admin: 10/01/16 19:05 Dose: 1 ampul Lipase/Protease/Amylase (Pancreaze Dr 10,500 Unit) 1 each FEEDTUBE PRN PRN PRN Reason: For Clogged Feeding Tube Arformoterol Tartrate (Brovana Nebu) 15 mcg IH Q12HRT [facility] Last Admin: 10/01/16 19:05 Dose: 15 mcg Aspirin (Aspirin) 325 mg PO BID [facility] Last Admin: 10/01/16 10:22 Dose: 325 mg Budesonide (Pulmicort) 0.5 mg IH Q12HRT [facility] Last Admin: 10/01/16 19:05 Dose: 0.5 mg Celecoxib (Celebrex) 100 mg PO BID [facility] Last Admin: 10/01/16 10:23 Dose: Not Given Diphenhydramine HCl (Benadryl) 12.5 mg IV Q4H PRN PRN Reason: Itching Last Admin: 09/30/16 07:02 Dose: 12.5 mg Enoxaparin Sodium (Lovenox) 40 mg SUB-Q QDAY [facility] Last Admin: 10/01/16 10:21 Dose: 40 mg Famotidine (Pepcid) 20 mg PO BID [facility] Last Admin: 10/01/16 10:31 Dose: 20 mg Folic Acid (Folvite) 1 mg PO QDAY [facility] Last Admin: 10/01/16 10:21 Dose: 1 mg Furosemide (Lasix) 20 mg IV 0600,1800 [facility] Stop: 10/02/16 06:01 Last Admin: 10/01/16 17:41 Dose: 20 mg Hydrophilic Ointment (Vaseline Lip Therapy) 1 applic TP Q2HR PRN PRN Reason: Dry Lips Levofloxacin/Dextrose (Levaquin 750mg/150ml) 750 mg in 150 mls @ 100 mls/hr IV Q24HR [facility] PRN Reason: Protocol Last Admin: 10/01/16 10:20 Dose: 100 mls/hr Piperacillin Sod/Tazobactam Sod (Zosyn/Ns 4.5gm/100ml) 4.5 gm in 100 mls @ 200 mls/hr IV Q8HR [facility] PRN Reason: Protocol Last Admin: 10/01/16 13:11 Dose: 200 mls/hr Fentanyl Citrate (Fentanyl Drip Premix) 2,000 mcg in 100 mls @ 4.649 mls/hr IV TITR [facility]; 1 MCG/KG/HR PRN Reason: Protocol Last Titration: 10/01/16 16:00 Dose: 3 mcg/kg/hr, 13.948 mls/hr Propofol (Diprivan 10 Mg/Ml) 1,000 mg in 100 mls @ 2.79 mls/hr IV TITR [facility]; 5 MCG/KG/MIN PRN Reason: Protocol Midazolam HCl 100 mg/ Sodium (Chloride) 100 mls @ 2 mls/hr IV TITR [facility]; 2 MG/HR PRN Reason: Protocol Last Admin: 09/30/16 17:58 Dose: 1 mg/hr, 1 mls/hr Sodium Chloride (Nacl 0.9% 500 Ml) 500 mls @ 3 mls/hr IV DIRECT [facility] Vancomycin HCl 1,250 mg/ (Sodium Chloride) 275 mls @ 166.667 mls/hr IV Q8H [facility] Insulin Human Regular (Novolin R) 0 units SUB-Q Q6HR [facility] PRN Reason: Protocol Last Admin: 10/01/16 17:48 Dose: Not Given Multi-Ingred Cream/Lotion/Oil/Oint (Artificial Tears Ophth Oint) 1 applic OU Q4HR PRN PRN Reason: Dry Eye(s) Multivitamins (Theragran Tab) 1 each PO QDAY [facility] Last Admin: 10/01/16 10:22 Dose: 1 each Ondansetron HCl (Zofran) 4 mg IV Q8H PRN PRN Reason: Nausea And Vomiting Last Admin: 09/29/16 23:07 Dose: 4 mg Promethazine HCl (Phenergan) 25 mg NC Q6H PRN PRN Reason: Nausea And Vomiting Last Admin: 09/25/16 22:05 Dose: 25 mg Senna (Senokot) 17.2 mg PO DAILY [facility] Last Admin: 10/01/16 13:13 Dose: 17.2 mg Simple Syrup (Simple Syrup) 15 ml FEEDTUBE PRN PRN PRN Reason: Hypoglycemia Simple Syrup (Simple Syrup) 30 ml FEEDTUBE PRN PRN PRN Reason: Hypoglycemia Sodium Bicarbonate (Sodium Bicarbonate) 325 mg FEEDTUBE PRN PRN PRN Reason: For Clogged Feeding Tube Sodium Chloride (Sodium Chloride Flush Syringe 10 Ml) 10 ml IV PRN PRN PRN Reason: LINE FLUSH Tramadol HCl (Ultram) 50 mg PO Q4H PRN PRN Reason: Pain, Moderate (4-6) Last Admin: 09/26/16 20:45 Dose: 50 mg Valacyclovir HCl (Valtrex) 500 mg PO DAILY [facility] Last Admin: 10/01/16 10:22 Dose: 500 mg Vancomycin HCl (Vancomycin Pharmacy To Dose) 1 each IV PKCONSULT [facility] PRN Reason: Protocol Zolpidem Tartrate (Ambien) 5 mg PO QHS PRN PRN Reason: Sleep Review of Systems Breasts: deferred Respiratory: other (remains on the vent, and fully sedated with fentanyl drip.) Exam - Constitutional Vitals: Temp Pulse Resp BP Pulse Ox 98.2 F 123 H 33 H 131/67 88 10/01/16 16:00 10/01/16 19:06 10/01/16 19:05 10/01/16 19:06 10/01/16 19:06 General appearance: Present: severe distress, well-nourished - EENT Eyes: Present: PERRL ENT: hearing intact, clear oral mucosa - Neck Neck: Present: supple, normal ROM - Respiratory Respiratory: bilateral: CTA, other (full shun support.) - Cardiovascular Heart Sounds: Present: S1 & S2. Absent: rub, click Details: HR 120s sinus. - Extremities Extremities: pulses symmetrical, No edema Peripheral Pulses: within normal limits - Abdominal General gastrointestinal: Present: soft, non-tender, non-distended, normal bowel sounds Female genitourinary: Present: deferred - Rectal Rectal Exam: deferred - Integumentary Integumentary: Present: clear, warm, dry - Musculoskeletal Musculoskeletal: gait normal, strength equal bilaterally - Additional findings Additional findings: unresponsive due to heavy sedation. Results - Labs CBC & Chem 7: 10/01/16 15:43 10/01/16 05:00 Labs: Abnormal lab results 10/01/16 10/01/16 10/01/16 Range/Units 00:55 00:55 04:57 WBC 26.1 H (4.5-11.0) K/mm3 RBC 2.80 L (3.65-5.03) M/mm3 Hgb 6.8 L (10.1-14.3) gm/dl Hct 20.8 L (30.3-42.9) % MCV 74 L (79-97) fl MCH 24 L (28-32) pg RDW 18.6 H (13.2-15.2) % Seg Neuts % (Manual) 85.0 H (40.0-70.0) % Lymphocytes % (Manual) 11.0 L (13.4-35.0) % Nucleated RBC % 21.0 H (0.0-0.9) % Seg Neutrophils # Man 22.2 H (1.8-7.7) K/mm3 Monocytes # (Manual) 1.0 H (0.0-0.8) K/mm3 POC ABG pCO2 58.5 H (35-45) POC ABG pO2 149 H (80-105) Sodium (137-145) mmol/L Potassium (3.6-5.0) mmol/L POC Glucose (70-105) Calcium (8.4-10.2) mg/dL Crossmatch See Detail 10/01/16 10/01/16 10/01/16 Range/Units 05:00 13:01 15:43 WBC 27.6 H (4.5-11.0) K/mm3 RBC 3.55 L (3.65-5.03) M/mm3 Hgb 8.9 L (10.1-14.3) gm/dl Hct 27.6 L D (30.3-42.9) % MCV 78 L D (79-97) fl MCH 25 L (28-32) pg RDW 18.1 H (13.2-15.2) % Seg Neuts % (Manual) 79.5 H (40.0-70.0) % Lymphocytes % (Manual) 8.0 L (13.4-35.0) % Nucleated RBC % 65.0 H (0.0-0.9) % Seg Neutrophils # Man 21.9 H (1.8-7.7) K/mm3 Monocytes # (Manual) 1.0 H (0.0-0.8) K/mm3 POC ABG pCO2 (35-45) POC ABG pO2 (80-105) Sodium 149 H (137-145) mmol/L Potassium 3.0 L (3.6-5.0) mmol/L POC Glucose 120 H (70-105) Calcium 8.3 L (8.4-10.2) mg/dL Crossmatch 10/01/16 Range/Units 17:44 WBC (4.5-11.0) K/mm3 RBC (3.65-5.03) M/mm3 Hgb (10.1-14.3) gm/dl Hct (30.3-42.9) % MCV (79-97) fl MCH (28-32) pg RDW (13.2-15.2) % Seg Neuts % (Manual) (40.0-70.0) % Lymphocytes % (Manual) (13.4-35.0) % Nucleated RBC % (0.0-0.9) % Seg Neutrophils # Man (1.8-7.7) K/mm3 Monocytes # (Manual) (0.0-0.8) K/mm3 POC ABG pCO2 (35-45) POC ABG pO2 (80-105) Sodium (137-145) mmol/L Potassium (3.6-5.0) mmol/L POC Glucose 121 H (70-105) Calcium (8.4-10.2) mg/dL Crossmatch Assessment and Plan - Patient Problems (1) Arthritis of left hip Current Visit: Yes Status: Deleted Plan to address problem: Follow post surgical management. (2) Avascular necrosis of bone of left hip Current Visit: Yes Status: Chronic Plan to address problem: Post surgical pain management., post surgical anticoagulation. (3) Sepsis Current Visit: Yes Status: Acute Plan to address problem: SEE w/up in the notes. No improvement so far. (4) Sleep apnea syndrome Current Visit: Yes Status: Acute Plan to address problem: oxygen/BIPAP management. Patient now in full resp failure, and on the vent.
[2016-10-01] MEDS: MIDAZOLAM 100 MG in NACL 0.9% 80 ML IV SCH (20:25)
[2016-10-02] MEDS: DUONEB 0.5 MG-3 MG/3 ML SOLN IH SCH ×4 (01:31→22:49)
--- NOTE | 2016-10-02 03:12 | Consultation ---
REQUESTING PHYSICIAN: Yumiko Irby MD REASON FOR CONSULT: Management of abnormal lab in a patient who was admitted for respiratory distress with need for mechanical ventilation, ARDS, and congestive heart failure. HISTORY OF PRESENT ILLNESS: The patient is a 41-year-old female who was admitted for total hip arthroplasty initially. The patient has a history of sickle cell anemia and developed respiratory distress, was intubated and mechanically ventilated and developed ARDS and also has acute hypoxemic respiratory failure, and on antibiotics, Zosyn and vancomycin IV. The patient's hemoglobin dropped from 8.1 to 6.9 from 09/28/2016 to 09/30/2016. Also, patient's potassium level dropped from 3.7 on 09/28/2016 to 3.1 on 09/30/2016. The patient's brain natriuretic peptide showed abnormal level of 2018. The patient was given Lasix a couple of times with good diuresis and improvement in breathing and a consult was put to hospitalist to manage the patient's anemia and abnormal potassium level. There is no history of fever at this time. PAST MEDICAL HISTORY: Pertinent for sickle cell disease. Also, the patient has past surgical history of hip surgery. The patient has past medical history of avascular necrosis of the left hip and past history of left hip arthroplasty. PHYSICAL EXAMINATION: GENERAL: The patient was found to be sedated, intubated, and mechanically ventilated. VITAL SIGNS: Shows pulse of 122, O2 sat of 89 while on mechanical ventilation, blood pressure of 121/55 with MAP of 77. HEENT: Pupils are reactive to light. NECK: Supple with no JVD or carotid bruit. CARDIOVASCULAR: Showed normal first and second heart sounds with rapid rate. RESPIRATORY: Showed good air entry on both sides with few scattered crackles bilaterally. GASTROINTESTINAL: Showed abdomen to be full, soft, nontender with no organomegaly or rigidity. NEUROLOGICAL: Showed no focal deficit. MUSCULOSKELETAL: Showed no joint swelling or tenderness. DERMATOLOGICAL: Showed no skin rash. PERTINENT LABORATORY DATA AND IMAGING STUDIES: The patient had CBC done on 09/30/2016 that shows WBC of 22,100, which is a downward trend from a values of 30,300 on 09/28/2016, hemoglobin today is below 7, which is low compared to 8.1 on 09/28/2016, hematocrit is down from 24.4 on 09/18/2016 to 20.6 on 09/30/2016. The patient has had multiple imaging studies done. Chest x-ray on 09/30/2016 was done because of PICC placement, which shows left arm PICC line in the right atrium, but the chest x-ray done earlier for tube placement shows adequate placement of endotracheal tube and the feeding tube coiled in the end of Esophagus and there was finding of increased bilateral pulmonary edema vs infiltrates. DIAGNOSES: 1. Anemia, secondary to probably sickle cell disease. 2. Hypokalemia. PLAN: The patient will receive 2 units of packed red blood cells with Lasix 20 mg IV given in the 2 units. The patient will have CBC checked in the morning after transfusion. The patient will also have KCl, potassium chloride 10 mEq in 100 mL normal saline x 3 doses with basic metabolic panel checked in the morning. If the potassium infusion is completed before, patient's lab will be monitored and followed by the hospitalist that is requested. JOB# [id number] [facility]/GOMEZ NEVAREZ
[2016-10-02] MEDS: ZOSYN/NS 4.5GM/100ML 4.5 GM/100 ML VIAL IV SCH ×4 (05:42→05:45)
[2016-10-02] MEDS: LASIX IV SCH (05:42)
[2016-10-02] MEDS: VANCOMYCIN 1,250 MG in NACL 0.9% 250ML 250 ML IV SCH ×3 (05:54→20:01)
[2016-10-02 06:00] LABS: ISTAT Base Excess 5; ISTAT HCO3 30.1; ISTAT PCO2 50.5 (35-45); ISTAT PH 7.383 (7.35-7.45); ISTAT PO2 81 (80-105); ISTAT SO2 95; ISTAT TCO2 32
[2016-10-02] MEDS: fentaNYL DRIP Premix 2,000 MCG/100 ML BAG IV SCH ×2 (06:41→16:31)
[2016-10-02 06:42] LABS: Hematocrit 25.8 % (30.3-42.9); Hemoglobin 8.3 gm/dl (10.1-14.3); Mean Corpuscular HGB Conc 32 % (30-34); Mean Corpuscular Volume 78 fl (79-97); Red Cell Distribution Width 18.2 % (13.2-15.2)
[2016-10-02 06:59] LABS: BUN/Creatinine Ratio 14.28; Calcium 8.8 mg/dL (8.4-10.2); Chloride 108.3 mmol/L (98-107); Potassium 3.9 mmol/L (3.6-5.0)
[2016-10-02 07:06] LABS: Mean Corpuscular Hemoglobin 25 pg (28-32)
[2016-10-02] MEDS: BROVANA NEBU IH SCH ×2 (08:36→20:50)
[2016-10-02] MEDS: PULMICORT IH SCH ×2 (08:36→20:50)
[2016-10-02 08:40] LABS: Basophils % (Manual) 0 % (0.0-1.8); Blastocytes % (Manual) 0 %; Eosinophils % (Manual) 0.5 % (0.0-4.3); Nucleated Red Blood Cells 14.5 % (0.0-0.9)
[2016-10-02 08:42] LABS: Anisocytosis 1+; Elliptocytes Few; Hypochromasia 2+; Polychromasia 1+; Target Cells 1+
[2016-10-02 08:44] LABS: Diff Status Complete; Helmet Cells Few; Large Platelets Few
[2016-10-02 08:59] LABS: Platelet Count 154 K/mm3 (140-440)
--- NOTE | 2016-10-02 09:35 | Progress Note ---
Assessment and Plan - Patient Problems (1) Arthritis of left hip Current Visit: Yes Status: Deleted (2) Avascular necrosis of bone of left hip Current Visit: Yes Status: Chronic (3) H/O total hip arthroplasty Current Visit: Yes Status: Acute Qualifiers: Laterality: left Qualified Code(s): Z96.642 - Presence of left artificial hip joint Plan to address problem: ontinue withlimitation program when medically stable, tolerated. Weightbearing as toleratedand continue with PT prophylaxis. Medical management of pulmonary edema. Subjective Date of service: 10/02/16 Principal diagnosis: Acute Hypoxemic Respiratory Failure; ARDS Interval history: She is on ventilator, sedated. No obvious drainage from the hip, orthopedic status stable. Objective Vital signs: Vital Signs - 12hr 10/01/16 10/01/16 10/01/16 21:41 21:51 22:00 Temperature Pulse Rate 124 H 123 H 124 H Pulse Rate [ Bilateral Bases ] Respiratory 33 H 32 H 31 H Rate Respiratory Rate [Bilateral Bases] Blood Pressure 125/65 125/65 121/65 O2 Sat by Pulse 96 94 88 Oximetry 10/01/16 10/01/16 10/01/16 22:11 22:21 22:30 Temperature Pulse Rate 124 H 127 H 128 H Pulse Rate [ Bilateral Bases ] Respiratory 30 H 34 H 33 H Rate Respiratory Rate [Bilateral Bases] Blood Pressure 125/65 125/65 140/74 O2 Sat by Pulse 93 94 87 Oximetry 10/01/16 10/01/16 10/01/16 22:41 22:51 23:01 Temperature Pulse Rate 127 H 127 H 126 H Pulse Rate [ Bilateral Bases ] Respiratory 30 H 29 H 29 H Rate Respiratory Rate [Bilateral Bases] Blood Pressure 140/74 140/74 122/57 O2 Sat by Pulse 89 87 92 Oximetry 10/01/16 10/01/16 10/01/16 23:11 23:17 23:21 Temperature Pulse Rate 127 H 126 H 126 H Pulse Rate [ Bilateral Bases ] Respiratory 30 H 31 H 29 H Rate Respiratory Rate [Bilateral Bases] Blood Pressure 122/57 122/57 122/57 O2 Sat by Pulse 97 97 97 Oximetry 10/01/16 10/01/16 10/01/16 23:26 23:30 23:41 Temperature Pulse Rate 127 H 127 H 126 H Pulse Rate [ Bilateral Bases ] Respiratory 29 H 28 H Rate Respiratory Rate [Bilateral Bases] Blood Pressure 122/57 123/59 123/59 O2 Sat by Pulse 97 95 94 Oximetry 10/01/16 10/02/16 10/02/16 23:51 00:00 00:11 Temperature 100.8 F H Pulse Rate 124 H 123 H 123 H Pulse Rate [ Bilateral Bases ] Respiratory 27 H 27 H 28 H Rate Respiratory Rate [Bilateral Bases] Blood Pressure 123/59 130/52 130/52 O2 Sat by Pulse 93 90 93 Oximetry 10/02/16 10/02/16 10/02/16 00:21 00:30 00:41 Temperature Pulse Rate 121 H 120 H 122 H Pulse Rate [ Bilateral Bases ] Respiratory 27 H 25 H 27 H Rate Respiratory Rate [Bilateral Bases] Blood Pressure 107/60 112/59 112/59 O2 Sat by Pulse 92 88 92 Oximetry 10/02/16 10/02/16 10/02/16 00:51 01:00 01:11 Temperature Pulse Rate 123 H 122 H 119 H Pulse Rate [ Bilateral Bases ] Respiratory 24 25 H 25 H Rate Respiratory Rate [Bilateral Bases] Blood Pressure 112/59 109/63 109/63 O2 Sat by Pulse 92 87 91 Oximetry 10/02/16 10/02/16 10/02/16 01:21 01:30 01:33 Temperature Pulse Rate 120 H 123 H Pulse Rate [ 122 H Bilateral Bases ] Respiratory 28 H 27 H Rate Respiratory 32 H Rate [Bilateral Bases] Blood Pressure 109/63 123/60 O2 Sat by Pulse 91 90 Oximetry 10/02/16 10/02/16 10/02/16 01:41 01:48 01:51 Temperature Pulse Rate 125 H 126 H Pulse Rate [ 126 H Bilateral Bases ] Respiratory 26 H 27 H Rate Respiratory 29 H Rate [Bilateral Bases] Blood Pressure 123/60 123/60 O2 Sat by Pulse 95 94 Oximetry 10/02/16 10/02/16 10/02/16 02:00 02:11 02:21 Temperature Pulse Rate 124 H 124 H 126 H Pulse Rate [ Bilateral Bases ] Respiratory 24 26 H 25 H Rate Respiratory Rate [Bilateral Bases] Blood Pressure 121/57 121/57 123/60 O2 Sat by Pulse 91 94 95 Oximetry 10/02/16 10/02/16 10/02/16 02:30 02:41 02:50 Temperature Pulse Rate 122 H 123 H 121 H Pulse Rate [ Bilateral Bases ] Respiratory 26 H 26 H 25 H Rate Respiratory Rate [Bilateral Bases] Blood Pressure 132/57 132/57 132/57 O2 Sat by Pulse 91 93 94 Oximetry 10/02/16 10/02/16 10/02/16 03:00 03:11 03:21 Temperature Pulse Rate 123 H 122 H 120 H Pulse Rate [ Bilateral Bases ] Respiratory 24 28 H 26 H Rate Respiratory Rate [Bilateral Bases] Blood Pressure 124/60 124/60 132/57 O2 Sat by Pulse 89 94 93 Oximetry 10/02/16 10/02/16 10/02/16 03:30 03:41 03:51 Temperature Pulse Rate 120 H 124 H 122 H Pulse Rate [ Bilateral Bases ] Respiratory 25 H 26 H 26 H Rate Respiratory Rate [Bilateral Bases] Blood Pressure 121/57 121/57 121/57 O2 Sat by Pulse 91 96 96 Oximetry 10/02/16 10/02/16 10/02/16 04:00 04:11 04:21 Temperature 100.6 F H Pulse Rate 119 H 118 H 116 H Pulse Rate [ Bilateral Bases ] Respiratory 24 24 26 H Rate Respiratory Rate [Bilateral Bases] Blood Pressure 119/57 119/57 119/57 O2 Sat by Pulse 90 95 96 Oximetry 10/02/16 10/02/16 10/02/16 04:30 04:41 04:51 Temperature Pulse Rate 116 H 116 H 116 H Pulse Rate [ Bilateral Bases ] Respiratory 25 H 24 22 Rate Respiratory Rate [Bilateral Bases] Blood Pressure 108/58 108/58 108/58 O2 Sat by Pulse 91 96 96 Oximetry 10/02/16 10/02/16 10/02/16 05:00 05:05 05:11 Temperature Pulse Rate 115 H 114 H 114 H Pulse Rate [ Bilateral Bases ] Respiratory 27 H 27 H Rate Respiratory Rate [Bilateral Bases] Blood Pressure 121/64 121/64 121/64 O2 Sat by Pulse 95 96 93 Oximetry 10/02/16 10/02/16 10/02/16 05:21 05:30 05:41 Temperature Pulse Rate 115 H 114 H 116 H Pulse Rate [ Bilateral Bases ] Respiratory 22 22 22 Rate Respiratory Rate [Bilateral Bases] Blood Pressure 121/64 111/63 111/63 O2 Sat by Pulse 92 91 96 Oximetry 10/02/16 10/02/16 10/02/16 05:51 06:01 06:11 Temperature Pulse Rate 114 H 115 H 117 H Pulse Rate [ Bilateral Bases ] Respiratory 24 27 H 30 H Rate Respiratory Rate [Bilateral Bases] Blood Pressure 111/63 133/65 133/65 O2 Sat by Pulse 96 98 90 Oximetry 10/02/16 10/02/16 10/02/16 06:21 06:30 06:41 Temperature Pulse Rate 116 H 117 H 117 H Pulse Rate [ Bilateral Bases ] Respiratory 25 H 24 22 Rate Respiratory Rate [Bilateral Bases] Blood Pressure 133/65 117/61 117/61 O2 Sat by Pulse 90 83 L 92 Oximetry 10/02/16 10/02/16 10/02/16 06:51 07:00 07:11 Temperature Pulse Rate 116 H 116 H 118 H Pulse Rate [ Bilateral Bases ] Respiratory 22 26 H 26 H Rate Respiratory Rate [Bilateral Bases] Blood Pressure 117/61 117/61 117/61 O2 Sat by Pulse 92 95 94 Oximetry 10/02/16 10/02/16 10/02/16 07:21 07:30 07:41 Temperature Pulse Rate 115 H 113 H 111 H Pulse Rate [ Bilateral Bases ] Respiratory 26 H 24 26 H Rate Respiratory Rate [Bilateral Bases] Blood Pressure 117/61 117/54 117/54 O2 Sat by Pulse 94 87 93 Oximetry 10/02/16 10/02/16 10/02/16 07:51 08:00 08:11 Temperature 100.8 F H Pulse Rate 112 H 112 H 110 H Pulse Rate [ Bilateral Bases ] Respiratory 30 H 24 25 H Rate Respiratory Rate [Bilateral Bases] Blood Pressure 117/54 108/53 108/53 O2 Sat by Pulse 93 90 93 Oximetry 10/02/16 10/02/16 10/02/16 08:21 08:29 08:36 Temperature Pulse Rate 111 H 112 H Pulse Rate [ 112 H Bilateral Bases ] Respiratory 25 H Rate Respiratory 26 H Rate [Bilateral Bases] Blood Pressure 108/53 108/53 O2 Sat by Pulse 94 94 Oximetry - Labs CBC & BMP: 10/03/16 08:17 10/03/16 08:17 Labs: Abnormal lab results 10/01/16 10/01/16 10/01/16 Range/Units 00:55 13:01 15:43 WBC 27.6 H (4.5-11.0) K/mm3 RBC 3.55 L (3.65-5.03) M/mm3 Hgb 8.9 L (10.1-14.3) gm/dl Hct 27.6 L D (30.3-42.9) % MCV 78 L D (79-97) fl MCH 25 L (28-32) pg RDW 18.1 H (13.2-15.2) % Seg Neuts % (Manual) 79.5 H (40.0-70.0) % Lymphocytes % (Manual) 8.0 L (13.4-35.0) % Nucleated RBC % 65.0 H (0.0-0.9) % Seg Neutrophils # Man 21.9 H (1.8-7.7) K/mm3 Monocytes # (Manual) 1.0 H (0.0-0.8) K/mm3 POC ABG pCO2 (35-45) Sodium (137-145) mmol/L Chloride (98-107) mmol/L BUN (7-17) mg/dL Creatinine (0.7-1.2) mg/dL Glucose (65-100) mg/dL POC Glucose 120 H (70-105) Crossmatch See Detail 10/01/16 10/01/16 10/02/16 Range/Units 17:44 23:37 05:05 WBC (4.5-11.0) K/mm3 RBC (3.65-5.03) M/mm3 Hgb (10.1-14.3) gm/dl Hct (30.3-42.9) % MCV (79-97) fl MCH (28-32) pg RDW (13.2-15.2) % Seg Neuts % (Manual) (40.0-70.0) % Lymphocytes % (Manual) (13.4-35.0) % Nucleated RBC % (0.0-0.9) % Seg Neutrophils # Man (1.8-7.7) K/mm3 Monocytes # (Manual) (0.0-0.8) K/mm3 POC ABG pCO2 50.5 H (35-45) Sodium (137-145) mmol/L Chloride (98-107) mmol/L BUN (7-17) mg/dL Creatinine (0.7-1.2) mg/dL Glucose (65-100) mg/dL POC Glucose 121 H 129 H (70-105) Crossmatch 10/02/16 10/02/16 Range/Units 06:00 06:00 WBC 23.0 H (4.5-11.0) K/mm3 RBC 3.30 L (3.65-5.03) M/mm3 Hgb 8.3 L (10.1-14.3) gm/dl Hct 25.8 L (30.3-42.9) % MCV 78 L (79-97) fl MCH 25 L (28-32) pg RDW 18.2 H (13.2-15.2) % Seg Neuts % (Manual) 83.5 H (40.0-70.0) % Lymphocytes % (Manual) 4.0 L (13.4-35.0) % Nucleated RBC % 14.5 H (0.0-0.9) % Seg Neutrophils # Man 25.1 H (1.8-7.7) K/mm3 Monocytes # (Manual) 1.7 H (0.0-0.8) K/mm3 POC ABG pCO2 (35-45) Sodium 150 H (137-145) mmol/L Chloride 108.3 H (98-107) mmol/L BUN 20 H (7-17) mg/dL Creatinine 1.4 H D (0.7-1.2) mg/dL Glucose 117 H (65-100) mg/dL POC Glucose (70-105) Crossmatch
--- NOTE | 2016-10-02 09:43 | Progress Note ---
Assessment and Plan The patient is a 41-year-old female with a history of sickle cell disease who was admitted for total hip arthroplasty for avascular necrosis of the left hip. She had left total hip arthroplasty on 09/25/2016 and developed acute hypoxemic respiratory failure following the POD 2 likely from ARDS and ultimately required intubation on 09/27/2016. Her hemoglobin level dropped from 8.1-6.9 on 09/30/2016, also noted to have hypokalemia with potassium level 3.1. Hospitalist service consulted for medical management. Acute respiratory failure - likely due to ARDS, intubated on 09/27/16 - on mechanical ventilation with 80% FiO2 - pulmonary following, cont nebulizer, vent support - wean off as tolerated Severe anemia - likely due to sickle cell crisis - transfused 2 units PRBC - monitor h and H - hematology following Avscular necrosis of the left hip - s/p total left hip arthoplasty on 09/25/16 Hypokalemia -Status post replacement Sepsis syndrome - Likely from ARDS - Spiking temp - Continue with IV Levaquin - Cultures are negative - We'll consult ID for further recommendation Hypernatremia - Start her on half normal saline - Increase free water with tube feeding - Monitor BMP The high probability of a clinically significant, sudden or life threatening deterioration of the system(s) required my full and direct attention, intervention and personal management. The aggregate critical care time was [35] minutes. This time is in addition to time spent performing reported procedures but includes the following: [x] Data Review and interpretation [x] Patient assessment and monitoring of vital signs [x] Documentation [x] Medication orders and management Subjective Date of service: 10/02/16 Principal diagnosis: Acute Hypoxemic Respiratory Failure; ARDS Interval history: Patient seen and examined. Medical records and medication list reviewed. No acute event overnight noted by the RN. Patient remained intubated and sedated Discussed plan of care at bedside with RN and patient's family by phone. Objective - Exam Narrative Exam: GENERAL: well-developed and well-nourished [place] female lying on bed appeared to be in no discomfort. HEENT: Normocephalic. Atraumatic. No conjunctival congestion or icterus. Patient has moist mucous membranes. NECK: Supple. Trachea midline. ET tube in place CHEST/LUNGS: Coarse breath sounds auscultated bilaterally, on mechanical ventilation HEART/CARDIOVASCULAR: Regular in rate and rhythm. S1 and S2 positive. ABDOMEN: Abdomen is soft, nontender. Patient has normal bowel sounds. SKIN: There is no rash. Warm and dry. NEURO: Sedated. MUSCULOSKELETAL: No joint effusion or tenderness. EXTRIMITY: No edema, no cyanosis or clubbing. PSYCH: Unable to assess. - Constitutional Vitals: Vital Signs - 12hr 10/01/16 10/01/16 10/01/16 21:51 22:00 22:11 Temperature Pulse Rate 123 H 124 H 124 H Pulse Rate [ Bilateral Bases ] Respiratory 32 H 31 H 30 H Rate Respiratory Rate [Bilateral Bases] Blood Pressure 125/65 121/65 125/65 O2 Sat by Pulse 94 88 93 Oximetry 10/01/16 10/01/16 10/01/16 22:21 22:30 22:41 Temperature Pulse Rate 127 H 128 H 127 H Pulse Rate [ Bilateral Bases ] Respiratory 34 H 33 H 30 H Rate Respiratory Rate [Bilateral Bases] Blood Pressure 125/65 140/74 140/74 O2 Sat by Pulse 94 87 89 Oximetry 10/01/16 10/01/16 10/01/16 22:51 23:01 23:11 Temperature Pulse Rate 127 H 126 H 127 H Pulse Rate [ Bilateral Bases ] Respiratory 29 H 29 H 30 H Rate Respiratory Rate [Bilateral Bases] Blood Pressure 140/74 122/57 122/57 O2 Sat by Pulse 87 92 97 Oximetry 10/01/16 10/01/16 10/01/16 23:17 23:21 23:26 Temperature Pulse Rate 126 H 126 H 127 H Pulse Rate [ Bilateral Bases ] Respiratory 31 H 29 H Rate Respiratory Rate [Bilateral Bases] Blood Pressure 122/57 122/57 122/57 O2 Sat by Pulse 97 97 97 Oximetry 10/01/16 10/01/16 10/01/16 23:30 23:41 23:51 Temperature Pulse Rate 127 H 126 H 124 H Pulse Rate [ Bilateral Bases ] Respiratory 29 H 28 H 27 H Rate Respiratory Rate [Bilateral Bases] Blood Pressure 123/59 123/59 123/59 O2 Sat by Pulse 95 94 93 Oximetry 10/02/16 10/02/16 10/02/16 00:00 00:11 00:21 Temperature 100.8 F H Pulse Rate 123 H 123 H 121 H Pulse Rate [ Bilateral Bases ] Respiratory 27 H 28 H 27 H Rate Respiratory Rate [Bilateral Bases] Blood Pressure 130/52 130/52 107/60 O2 Sat by Pulse 90 93 92 Oximetry 10/02/16 10/02/16 10/02/16 00:30 00:41 00:51 Temperature Pulse Rate 120 H 122 H 123 H Pulse Rate [ Bilateral Bases ] Respiratory 25 H 27 H 24 Rate Respiratory Rate [Bilateral Bases] Blood Pressure 112/59 112/59 112/59 O2 Sat by Pulse 88 92 92 Oximetry 10/02/16 10/02/16 10/02/16 01:00 01:11 01:21 Temperature Pulse Rate 122 H 119 H 120 H Pulse Rate [ Bilateral Bases ] Respiratory 25 H 25 H 28 H Rate Respiratory Rate [Bilateral Bases] Blood Pressure 109/63 109/63 109/63 O2 Sat by Pulse 87 91 91 Oximetry 10/02/16 10/02/16 10/02/16 01:30 01:33 01:41 Temperature Pulse Rate 123 H 125 H Pulse Rate [ 122 H Bilateral Bases ] Respiratory 27 H 26 H Rate Respiratory 32 H Rate [Bilateral Bases] Blood Pressure 123/60 123/60 O2 Sat by Pulse 90 95 Oximetry 10/02/16 10/02/16 10/02/16 01:48 01:51 02:00 Temperature Pulse Rate 126 H 124 H Pulse Rate [ 126 H Bilateral Bases ] Respiratory 27 H 24 Rate Respiratory 29 H Rate [Bilateral Bases] Blood Pressure 123/60 121/57 O2 Sat by Pulse 94 91 Oximetry 10/02/16 10/02/16 10/02/16 02:11 02:21 02:30 Temperature Pulse Rate 124 H 126 H 122 H Pulse Rate [ Bilateral Bases ] Respiratory 26 H 25 H 26 H Rate Respiratory Rate [Bilateral Bases] Blood Pressure 121/57 123/60 132/57 O2 Sat by Pulse 94 95 91 Oximetry 10/02/16 10/02/16 10/02/16 02:41 02:50 03:00 Temperature Pulse Rate 123 H 121 H 123 H Pulse Rate [ Bilateral Bases ] Respiratory 26 H 25 H 24 Rate Respiratory Rate [Bilateral Bases] Blood Pressure 132/57 132/57 124/60 O2 Sat by Pulse 93 94 89 Oximetry 10/02/16 10/02/16 10/02/16 03:11 03:21 03:30 Temperature Pulse Rate 122 H 120 H 120 H Pulse Rate [ Bilateral Bases ] Respiratory 28 H 26 H 25 H Rate Respiratory Rate [Bilateral Bases] Blood Pressure 124/60 132/57 121/57 O2 Sat by Pulse 94 93 91 Oximetry 10/02/16 10/02/16 10/02/16 03:41 03:51 04:00 Temperature 100.6 F H Pulse Rate 124 H 122 H 119 H Pulse Rate [ Bilateral Bases ] Respiratory 26 H 26 H 24 Rate Respiratory Rate [Bilateral Bases] Blood Pressure 121/57 121/57 119/57 O2 Sat by Pulse 96 96 90 Oximetry 10/02/16 10/02/16 10/02/16 04:11 04:21 04:30 Temperature Pulse Rate 118 H 116 H 116 H Pulse Rate [ Bilateral Bases ] Respiratory 24 26 H 25 H Rate Respiratory Rate [Bilateral Bases] Blood Pressure 119/57 119/57 108/58 O2 Sat by Pulse 95 96 91 Oximetry 10/02/16 10/02/16 10/02/16 04:41 04:51 05:00 Temperature Pulse Rate 116 H 116 H 115 H Pulse Rate [ Bilateral Bases ] Respiratory 24 22 27 H Rate Respiratory Rate [Bilateral Bases] Blood Pressure 108/58 108/58 121/64 O2 Sat by Pulse 96 96 95 Oximetry 10/02/16 10/02/16 10/02/16 05:05 05:11 05:21 Temperature Pulse Rate 114 H 114 H 115 H Pulse Rate [ Bilateral Bases ] Respiratory 27 H 22 Rate Respiratory Rate [Bilateral Bases] Blood Pressure 121/64 121/64 121/64 O2 Sat by Pulse 96 93 92 Oximetry 10/02/16 10/02/16 10/02/16 05:30 05:41 05:51 Temperature Pulse Rate 114 H 116 H 114 H Pulse Rate [ Bilateral Bases ] Respiratory 22 22 24 Rate Respiratory Rate [Bilateral Bases] Blood Pressure 111/63 111/63 111/63 O2 Sat by Pulse 91 96 96 Oximetry 10/02/16 10/02/16 10/02/16 06:01 06:11 06:21 Temperature Pulse Rate 115 H 117 H 116 H Pulse Rate [ Bilateral Bases ] Respiratory 27 H 30 H 25 H Rate Respiratory Rate [Bilateral Bases] Blood Pressure 133/65 133/65 133/65 O2 Sat by Pulse 98 90 90 Oximetry 10/02/16 10/02/16 10/02/16 06:30 06:41 06:51 Temperature Pulse Rate 117 H 117 H 116 H Pulse Rate [ Bilateral Bases ] Respiratory 24 22 22 Rate Respiratory Rate [Bilateral Bases] Blood Pressure 117/61 117/61 117/61 O2 Sat by Pulse 83 L 92 92 Oximetry 10/02/16 10/02/16 10/02/16 07:00 07:11 07:21 Temperature Pulse Rate 116 H 118 H 115 H Pulse Rate [ Bilateral Bases ] Respiratory 26 H 26 H 26 H Rate Respiratory Rate [Bilateral Bases] Blood Pressure 117/61 117/61 117/61 O2 Sat by Pulse 95 94 94 Oximetry 10/02/16 10/02/16 10/02/16 07:30 07:41 07:51 Temperature Pulse Rate 113 H 111 H 112 H Pulse Rate [ Bilateral Bases ] Respiratory 24 26 H 30 H Rate Respiratory Rate [Bilateral Bases] Blood Pressure 117/54 117/54 117/54 O2 Sat by Pulse 87 93 93 Oximetry 10/02/16 10/02/16 10/02/16 08:00 08:11 08:21 Temperature 100.8 F H Pulse Rate 112 H 110 H 111 H Pulse Rate [ Bilateral Bases ] Respiratory 24 25 H 25 H Rate Respiratory Rate [Bilateral Bases] Blood Pressure 108/53 108/53 108/53 O2 Sat by Pulse 90 93 94 Oximetry 10/02/16 10/02/16 08:29 08:36 Temperature Pulse Rate 112 H Pulse Rate [ 112 H Bilateral Bases ] Respiratory Rate Respiratory 26 H Rate [Bilateral Bases] Blood Pressure 108/53 O2 Sat by Pulse 94 Oximetry - Labs CBC & Chem 7: 10/02/16 06:00 10/02/16 06:00 Labs: Abnormal lab results 10/01/16 10/01/16 10/01/16 Range/Units 00:55 13:01 15:43 WBC 27.6 H (4.5-11.0) K/mm3 RBC 3.55 L (3.65-5.03) M/mm3 Hgb 8.9 L (10.1-14.3) gm/dl Hct 27.6 L D (30.3-42.9) % MCV 78 L D (79-97) fl MCH 25 L (28-32) pg RDW 18.1 H (13.2-15.2) % Seg Neuts % (Manual) 79.5 H (40.0-70.0) % Lymphocytes % (Manual) 8.0 L (13.4-35.0) % Nucleated RBC % 65.0 H (0.0-0.9) % Seg Neutrophils # Man 21.9 H (1.8-7.7) K/mm3 Monocytes # (Manual) 1.0 H (0.0-0.8) K/mm3 POC ABG pCO2 (35-45) Sodium (137-145) mmol/L Chloride (98-107) mmol/L BUN (7-17) mg/dL Creatinine (0.7-1.2) mg/dL Glucose (65-100) mg/dL POC Glucose 120 H (70-105) Crossmatch See Detail 10/01/16 10/01/16 10/02/16 Range/Units 17:44 23:37 05:05 WBC (4.5-11.0) K/mm3 RBC (3.65-5.03) M/mm3 Hgb (10.1-14.3) gm/dl Hct (30.3-42.9) % MCV (79-97) fl MCH (28-32) pg RDW (13.2-15.2) % Seg Neuts % (Manual) (40.0-70.0) % Lymphocytes % (Manual) (13.4-35.0) % Nucleated RBC % (0.0-0.9) % Seg Neutrophils # Man (1.8-7.7) K/mm3 Monocytes # (Manual) (0.0-0.8) K/mm3 POC ABG pCO2 50.5 H (35-45) Sodium (137-145) mmol/L Chloride (98-107) mmol/L BUN (7-17) mg/dL Creatinine (0.7-1.2) mg/dL Glucose (65-100) mg/dL POC Glucose 121 H 129 H (70-105) Crossmatch 10/02/16 10/02/16 Range/Units 06:00 06:00 WBC 23.0 H (4.5-11.0) K/mm3 RBC 3.30 L (3.65-5.03) M/mm3 Hgb 8.3 L (10.1-14.3) gm/dl Hct 25.8 L (30.3-42.9) % MCV 78 L (79-97) fl MCH 25 L (28-32) pg RDW 18.2 H (13.2-15.2) % Seg Neuts % (Manual) 83.5 H (40.0-70.0) % Lymphocytes % (Manual) 4.0 L (13.4-35.0) % Nucleated RBC % 14.5 H (0.0-0.9) % Seg Neutrophils # Man 25.1 H (1.8-7.7) K/mm3 Monocytes # (Manual) 1.7 H (0.0-0.8) K/mm3 POC ABG pCO2 (35-45) Sodium 150 H (137-145) mmol/L Chloride 108.3 H (98-107) mmol/L BUN 20 H (7-17) mg/dL Creatinine 1.4 H D (0.7-1.2) mg/dL Glucose 117 H (65-100) mg/dL POC Glucose (70-105) Crossmatch
--- NOTE | 2016-10-02 10:15 | Progress Note ---
Assessment and Plan - Patient Problems (1) Arthritis of left hip Current Visit: Yes Status: Deleted (2) Avascular necrosis of bone of left hip Current Visit: Yes Status: Chronic Plan to address problem: Continue with medical management of acute pulmonary edema, orthopedic standpoint she may be ablated out of bed, weightbearing as tolerated and continue with DVT prophylaxis. Subjective Date of service: 10/02/16 Principal diagnosis: Acute Hypoxemic Respiratory Failure; ARDS Interval history: She is on ventilator, sedated. No obvious drainage from the hip, orthopedic status stable. Objective Vital signs: Vital Signs - 12hr 10/01/16 10/01/16 10/01/16 22:21 22:30 22:41 Temperature Pulse Rate 127 H 128 H 127 H Pulse Rate [ Bilateral Bases ] Respiratory 34 H 33 H 30 H Rate Respiratory Rate [Bilateral Bases] Blood Pressure 125/65 140/74 140/74 O2 Sat by Pulse 94 87 89 Oximetry 10/01/16 10/01/16 10/01/16 22:51 23:01 23:11 Temperature Pulse Rate 127 H 126 H 127 H Pulse Rate [ Bilateral Bases ] Respiratory 29 H 29 H 30 H Rate Respiratory Rate [Bilateral Bases] Blood Pressure 140/74 122/57 122/57 O2 Sat by Pulse 87 92 97 Oximetry 10/01/16 10/01/16 10/01/16 23:17 23:21 23:26 Temperature Pulse Rate 126 H 126 H 127 H Pulse Rate [ Bilateral Bases ] Respiratory 31 H 29 H Rate Respiratory Rate [Bilateral Bases] Blood Pressure 122/57 122/57 122/57 O2 Sat by Pulse 97 97 97 Oximetry 10/01/16 10/01/16 10/01/16 23:30 23:41 23:51 Temperature Pulse Rate 127 H 126 H 124 H Pulse Rate [ Bilateral Bases ] Respiratory 29 H 28 H 27 H Rate Respiratory Rate [Bilateral Bases] Blood Pressure 123/59 123/59 123/59 O2 Sat by Pulse 95 94 93 Oximetry 10/02/16 10/02/16 10/02/16 00:00 00:11 00:21 Temperature 100.8 F H Pulse Rate 123 H 123 H 121 H Pulse Rate [ Bilateral Bases ] Respiratory 27 H 28 H 27 H Rate Respiratory Rate [Bilateral Bases] Blood Pressure 130/52 130/52 107/60 O2 Sat by Pulse 90 93 92 Oximetry 10/02/16 10/02/16 10/02/16 00:30 00:41 00:51 Temperature Pulse Rate 120 H 122 H 123 H Pulse Rate [ Bilateral Bases ] Respiratory 25 H 27 H 24 Rate Respiratory Rate [Bilateral Bases] Blood Pressure 112/59 112/59 112/59 O2 Sat by Pulse 88 92 92 Oximetry 10/02/16 10/02/16 10/02/16 01:00 01:11 01:21 Temperature Pulse Rate 122 H 119 H 120 H Pulse Rate [ Bilateral Bases ] Respiratory 25 H 25 H 28 H Rate Respiratory Rate [Bilateral Bases] Blood Pressure 109/63 109/63 109/63 O2 Sat by Pulse 87 91 91 Oximetry 10/02/16 10/02/16 10/02/16 01:30 01:33 01:41 Temperature Pulse Rate 123 H 125 H Pulse Rate [ 122 H Bilateral Bases ] Respiratory 27 H 26 H Rate Respiratory 32 H Rate [Bilateral Bases] Blood Pressure 123/60 123/60 O2 Sat by Pulse 90 95 Oximetry 10/02/16 10/02/16 10/02/16 01:48 01:51 02:00 Temperature Pulse Rate 126 H 124 H Pulse Rate [ 126 H Bilateral Bases ] Respiratory 27 H 24 Rate Respiratory 29 H Rate [Bilateral Bases] Blood Pressure 123/60 121/57 O2 Sat by Pulse 94 91 Oximetry 10/02/16 10/02/16 10/02/16 02:11 02:21 02:30 Temperature Pulse Rate 124 H 126 H 122 H Pulse Rate [ Bilateral Bases ] Respiratory 26 H 25 H 26 H Rate Respiratory Rate [Bilateral Bases] Blood Pressure 121/57 123/60 132/57 O2 Sat by Pulse 94 95 91 Oximetry 10/02/16 10/02/16 10/02/16 02:41 02:50 03:00 Temperature Pulse Rate 123 H 121 H 123 H Pulse Rate [ Bilateral Bases ] Respiratory 26 H 25 H 24 Rate Respiratory Rate [Bilateral Bases] Blood Pressure 132/57 132/57 124/60 O2 Sat by Pulse 93 94 89 Oximetry 10/02/16 10/02/16 10/02/16 03:11 03:21 03:30 Temperature Pulse Rate 122 H 120 H 120 H Pulse Rate [ Bilateral Bases ] Respiratory 28 H 26 H 25 H Rate Respiratory Rate [Bilateral Bases] Blood Pressure 124/60 132/57 121/57 O2 Sat by Pulse 94 93 91 Oximetry 10/02/16 10/02/16 10/02/16 03:41 03:51 04:00 Temperature 100.6 F H Pulse Rate 124 H 122 H 119 H Pulse Rate [ Bilateral Bases ] Respiratory 26 H 26 H 24 Rate Respiratory Rate [Bilateral Bases] Blood Pressure 121/57 121/57 119/57 O2 Sat by Pulse 96 96 90 Oximetry 10/02/16 10/02/16 10/02/16 04:11 04:21 04:30 Temperature Pulse Rate 118 H 116 H 116 H Pulse Rate [ Bilateral Bases ] Respiratory 24 26 H 25 H Rate Respiratory Rate [Bilateral Bases] Blood Pressure 119/57 119/57 108/58 O2 Sat by Pulse 95 96 91 Oximetry 10/02/16 10/02/16 10/02/16 04:41 04:51 05:00 Temperature Pulse Rate 116 H 116 H 115 H Pulse Rate [ Bilateral Bases ] Respiratory 24 22 27 H Rate Respiratory Rate [Bilateral Bases] Blood Pressure 108/58 108/58 121/64 O2 Sat by Pulse 96 96 95 Oximetry 10/02/16 10/02/16 10/02/16 05:05 05:11 05:21 Temperature Pulse Rate 114 H 114 H 115 H Pulse Rate [ Bilateral Bases ] Respiratory 27 H 22 Rate Respiratory Rate [Bilateral Bases] Blood Pressure 121/64 121/64 121/64 O2 Sat by Pulse 96 93 92 Oximetry 10/02/16 10/02/16 10/02/16 05:30 05:41 05:51 Temperature Pulse Rate 114 H 116 H 114 H Pulse Rate [ Bilateral Bases ] Respiratory 22 22 24 Rate Respiratory Rate [Bilateral Bases] Blood Pressure 111/63 111/63 111/63 O2 Sat by Pulse 91 96 96 Oximetry 10/02/16 10/02/16 10/02/16 06:01 06:11 06:21 Temperature Pulse Rate 115 H 117 H 116 H Pulse Rate [ Bilateral Bases ] Respiratory 27 H 30 H 25 H Rate Respiratory Rate [Bilateral Bases] Blood Pressure 133/65 133/65 133/65 O2 Sat by Pulse 98 90 90 Oximetry 10/02/16 10/02/16 10/02/16 06:30 06:41 06:51 Temperature Pulse Rate 117 H 117 H 116 H Pulse Rate [ Bilateral Bases ] Respiratory 24 22 22 Rate Respiratory Rate [Bilateral Bases] Blood Pressure 117/61 117/61 117/61 O2 Sat by Pulse 83 L 92 92 Oximetry 10/02/16 10/02/1617 07:00 07:11 07:21 Temperature Pulse Rate 116 H 118 H 115 H Pulse Rate [ Bilateral Bases ] Respiratory 26 H 26 H 26 H Rate Respiratory Rate [Bilateral Bases] Blood Pressure 117/61 117/61 117/61 O2 Sat by Pulse 95 94 94 Oximetry 10/02/16 10/02/16 10/02/16 07:30 07:41 07:51 Temperature Pulse Rate 113 H 111 H 112 H Pulse Rate [ Bilateral Bases ] Respiratory 24 26 H 30 H Rate Respiratory Rate [Bilateral Bases] Blood Pressure 117/54 117/54 117/54 O2 Sat by Pulse 87 93 93 Oximetry 10/02/16 10/02/16 10/02/16 08:00 08:11 08:21 Temperature 100.8 F H Pulse Rate 112 H 110 H 111 H Pulse Rate [ Bilateral Bases ] Respiratory 24 25 H 25 H Rate Respiratory Rate [Bilateral Bases] Blood Pressure 108/53 108/53 108/53 O2 Sat by Pulse 90 93 94 Oximetry 10/02/16 10/02/16 08:29 08:36 Temperature Pulse Rate 112 H Pulse Rate [ 112 H Bilateral Bases ] Respiratory Rate Respiratory 26 H Rate [Bilateral Bases] Blood Pressure 108/53 O2 Sat by Pulse 94 Oximetry - Labs CBC & BMP: 10/03/16 08:17 10/03/16 08:17 Labs: Abnormal lab results 10/01/16 10/01/16 10/01/16 Range/Units 00:55 13:01 15:43 WBC 27.6 H (4.5-11.0) K/mm3 RBC 3.55 L (3.65-5.03) M/mm3 Hgb 8.9 L (10.1-14.3) gm/dl Hct 27.6 L D (30.3-42.9) % MCV 78 L D (79-97) fl MCH 25 L (28-32) pg RDW 18.1 H (13.2-15.2) % Seg Neuts % (Manual) 79.5 H (40.0-70.0) % Lymphocytes % (Manual) 8.0 L (13.4-35.0) % Nucleated RBC % 65.0 H (0.0-0.9) % Seg Neutrophils # Man 21.9 H (1.8-7.7) K/mm3 Monocytes # (Manual) 1.0 H (0.0-0.8) K/mm3 POC ABG pCO2 (35-45) Sodium (137-145) mmol/L Chloride (98-107) mmol/L BUN (7-17) mg/dL Creatinine (0.7-1.2) mg/dL Glucose (65-100) mg/dL POC Glucose 120 H (70-105) Crossmatch See Detail 10/01/16 10/01/16 10/02/16 Range/Units 17:44 23:37 05:05 WBC (4.5-11.0) K/mm3 RBC (3.65-5.03) M/mm3 Hgb (10.1-14.3) gm/dl Hct (30.3-42.9) % MCV (79-97) fl MCH (28-32) pg RDW (13.2-15.2) % Seg Neuts % (Manual) (40.0-70.0) % Lymphocytes % (Manual) (13.4-35.0) % Nucleated RBC % (0.0-0.9) % Seg Neutrophils # Man (1.8-7.7) K/mm3 Monocytes # (Manual) (0.0-0.8) K/mm3 POC ABG pCO2 50.5 H (35-45) Sodium (137-145) mmol/L Chloride (98-107) mmol/L BUN (7-17) mg/dL Creatinine (0.7-1.2) mg/dL Glucose (65-100) mg/dL POC Glucose 121 H 129 H (70-105) Crossmatch 10/02/16 10/02/16 Range/Units 06:00 06:00 WBC 23.0 H (4.5-11.0) K/mm3 RBC 3.30 L (3.65-5.03) M/mm3 Hgb 8.3 L (10.1-14.3) gm/dl Hct 25.8 L (30.3-42.9) % MCV 78 L (79-97) fl MCH 25 L (28-32) pg RDW 18.2 H (13.2-15.2) % Seg Neuts % (Manual) 83.5 H (40.0-70.0) % Lymphocytes % (Manual) 4.0 L (13.4-35.0) % Nucleated RBC % 14.5 H (0.0-0.9) % Seg Neutrophils # Man 25.1 H (1.8-7.7) K/mm3 Monocytes # (Manual) 1.7 H (0.0-0.8) K/mm3 POC ABG pCO2 (35-45) Sodium 150 H (137-145) mmol/L Chloride 108.3 H (98-107) mmol/L BUN 20 H (7-17) mg/dL Creatinine 1.4 H D (0.7-1.2) mg/dL Glucose 117 H (65-100) mg/dL POC Glucose (70-105) Crossmatch
[2016-10-02] MEDS: ASPIRIN PO SCH ×2 (10:31→22:20)
[2016-10-02] MEDS: SENOKOT PO SCH (10:31)
[2016-10-02] MEDS: FOLVITE PO SCH (10:31)
[2016-10-02] MEDS: PEPCID PO SCH ×2 (10:31→22:20)
[2016-10-02] MEDS: THERAGRAN Tab PO SCH (10:31)
[2016-10-02] MEDS: LEVAQUIN 750MG/150ML 750 MG/150 ML BAG IV SCH (10:31)
[2016-10-02] MEDS: LOVENOX SUB-Q SCH (10:38)
[2016-10-02] MEDS: VALTREX PO SCH (10:46)
--- NOTE | 2016-10-02 10:57 | XRay Report ---
Portable chest: Respiratory failure. Extensive bilateral pulmonary bronchoalveolar opacities are noted. There is some air bronchograms. Multiple life-support tubes are in good positions. Compared to prior study of October 01 no interval change is identified. Impression: Bilateral pulmonary consolidations with no interval change.
--- NOTE | 2016-10-02 11:25 | Progress Note ---
Assessment and Plan - Patient Problems (1) Acute respiratory failure with hypoxia Current Visit: Yes Status: Acute Plan to address problem: - stopped diuressis - continue ARDS ventilation / LTVV strategies (increased Peep to 18cmH2); PIP's in mid 30's now) - continue bronchodilators and pulmonary toilet - continue aspiration precautions / VAP bundles - continue to wean oxygen for sats > 92% - serial ABG's (2) ARDS (adult respiratory distress syndrome) Current Visit: Yes Status: Acute Plan to address problem: - 2D ECHO reports normal EF without impaired relaxation - etiology unclear - treating empirically as HCAP - continue gentle diuresis - increased Peep as above (3) Obesity Current Visit: Yes Status: Acute Qualifiers: Obesity type: O Obesity severity: O Plan to address problem: - weight loss counselled earlier - outpatient sleep clinic evaluation (4) Avascular necrosis of bone of left hip Current Visit: Yes Status: Chronic Plan to address problem: - s/p hip replacement surgery - per orthopedic surgeon otherwise - ? fat emboli syndrome (5) Sepsis syndrome Current Visit: Yes Status: Acute Plan to address problem: - continue empiric AB's - ID evaluation today and will defer thereafter (6) Anemia Current Visit: Yes Status: Acute Qualifiers: Anemia type: A Iron deficiency anemia type: I Vitamin B12 deficiency anemia type: V Folate deficiency anemia type: F Bone marrow failure anemia type: B Hemolytic anemia type: H Other causes of anemia: O Plan to address problem: - multifactorial - suspect ABLA component - h/o sickle cell - prn PRBC transfusions - hematology following (7) Discharge planning issues Current Visit: Yes Status: Acute Plan to address problem: - appears may be a prolonged ICU stay .....she remains critically ill on life sustaining interventions including MVS and at risk for further deterioration including 35' CCT Subjective Date of service: 10/02/16 Principal diagnosis: Acute Hypoxemic Respiratory Failure; ARDS Interval history: Seen and examined at bedside; 24 hour events reviewed; nursing and respiratory care staff consulted; no adverse overnight events reported to me; severe hypoxemia is persistent; no emesis or overt aspiration; decent diuressis but bilateral infiltrates persist as does hypoxemia Objective Vital Signs - 12hr 10/01/16 10/01/16 10/01/16 23:26 23:30 23:41 Temperature Pulse Rate 127 H 127 H 126 H Pulse Rate [ Bilateral Bases ] Respiratory 29 H 28 H Rate Respiratory Rate [Bilateral Bases] Blood Pressure 122/57 123/59 123/59 O2 Sat by Pulse 97 95 94 Oximetry 10/01/16 10/02/16 10/02/16 23:51 00:00 00:11 Temperature 100.8 F H Pulse Rate 124 H 123 H 123 H Pulse Rate [ Bilateral Bases ] Respiratory 27 H 27 H 28 H Rate Respiratory Rate [Bilateral Bases] Blood Pressure 123/59 130/52 130/52 O2 Sat by Pulse 93 90 93 Oximetry 10/02/16 10/02/16 10/02/16 00:21 00:30 00:41 Temperature Pulse Rate 121 H 120 H 122 H Pulse Rate [ Bilateral Bases ] Respiratory 27 H 25 H 27 H Rate Respiratory Rate [Bilateral Bases] Blood Pressure 107/60 112/59 112/59 O2 Sat by Pulse 92 88 92 Oximetry 10/02/16 10/02/16 10/02/16 00:51 01:00 01:11 Temperature Pulse Rate 123 H 122 H 119 H Pulse Rate [ Bilateral Bases ] Respiratory 24 25 H 25 H Rate Respiratory Rate [Bilateral Bases] Blood Pressure 112/59 109/63 109/63 O2 Sat by Pulse 92 87 91 Oximetry 10/02/16 10/02/16 10/02/16 01:21 01:30 01:33 Temperature Pulse Rate 120 H 123 H Pulse Rate [ 122 H Bilateral Bases ] Respiratory 28 H 27 H Rate Respiratory 32 H Rate [Bilateral Bases] Blood Pressure 109/63 123/60 O2 Sat by Pulse 91 90 Oximetry 10/02/16 10/02/16 10/02/16 01:41 01:48 01:51 Temperature Pulse Rate 125 H 126 H Pulse Rate [ 126 H Bilateral Bases ] Respiratory 26 H 27 H Rate Respiratory 29 H Rate [Bilateral Bases] Blood Pressure 123/60 123/60 O2 Sat by Pulse 95 94 Oximetry 10/02/16 10/02/16 10/02/16 02:00 02:11 02:21 Temperature Pulse Rate 124 H 124 H 126 H Pulse Rate [ Bilateral Bases ] Respiratory 24 26 H 25 H Rate Respiratory Rate [Bilateral Bases] Blood Pressure 121/57 121/57 123/60 O2 Sat by Pulse 91 94 95 Oximetry 10/02/16 10/02/16 10/02/16 02:30 02:41 02:50 Temperature Pulse Rate 122 H 123 H 121 H Pulse Rate [ Bilateral Bases ] Respiratory 26 H 26 H 25 H Rate Respiratory Rate [Bilateral Bases] Blood Pressure 132/57 132/57 132/57 O2 Sat by Pulse 91 93 94 Oximetry 10/02/16 10/02/16 10/02/16 03:00 03:11 03:21 Temperature Pulse Rate 123 H 122 H 120 H Pulse Rate [ Bilateral Bases ] Respiratory 24 28 H 26 H Rate Respiratory Rate [Bilateral Bases] Blood Pressure 124/60 124/60 132/57 O2 Sat by Pulse 89 94 93 Oximetry 10/02/16 10/02/16 10/02/16 03:30 03:41 03:51 Temperature Pulse Rate 120 H 124 H 122 H Pulse Rate [ Bilateral Bases ] Respiratory 25 H 26 H 26 H Rate Respiratory Rate [Bilateral Bases] Blood Pressure 121/57 121/57 121/57 O2 Sat by Pulse 91 96 96 Oximetry 10/02/16 10/02/16 10/02/16 04:00 04:11 04:21 Temperature 100.6 F H Pulse Rate 119 H 118 H 116 H Pulse Rate [ Bilateral Bases ] Respiratory 24 24 26 H Rate Respiratory Rate [Bilateral Bases] Blood Pressure 119/57 119/57 119/57 O2 Sat by Pulse 90 95 96 Oximetry 10/02/16 10/02/16 10/02/16 04:30 04:41 04:51 Temperature Pulse Rate 116 H 116 H 116 H Pulse Rate [ Bilateral Bases ] Respiratory 25 H 24 22 Rate Respiratory Rate [Bilateral Bases] Blood Pressure 108/58 108/58 108/58 O2 Sat by Pulse 91 96 96 Oximetry 10/02/16 10/02/16 10/02/16 05:00 05:05 05:11 Temperature Pulse Rate 115 H 114 H 114 H Pulse Rate [ Bilateral Bases ] Respiratory 27 H 27 H Rate Respiratory Rate [Bilateral Bases] Blood Pressure 121/64 121/64 121/64 O2 Sat by Pulse 95 96 93 Oximetry 10/02/16 10/02/16 10/02/16 05:21 05:30 05:41 Temperature Pulse Rate 115 H 114 H 116 H Pulse Rate [ Bilateral Bases ] Respiratory 22 22 22 Rate Respiratory Rate [Bilateral Bases] Blood Pressure 121/64 111/63 111/63 O2 Sat by Pulse 92 91 96 Oximetry 10/02/16 10/02/16 10/02/16 05:51 06:01 06:11 Temperature Pulse Rate 114 H 115 H 117 H Pulse Rate [ Bilateral Bases ] Respiratory 24 27 H 30 H Rate Respiratory Rate [Bilateral Bases] Blood Pressure 111/63 133/65 133/65 O2 Sat by Pulse 96 98 90 Oximetry 10/02/16 10/02/16 10/02/16 06:21 06:30 06:41 Temperature Pulse Rate 116 H 117 H 117 H Pulse Rate [ Bilateral Bases ] Respiratory 25 H 24 22 Rate Respiratory Rate [Bilateral Bases] Blood Pressure 133/65 117/61 117/61 O2 Sat by Pulse 90 83 L 92 Oximetry 10/02/16 10/02/16 10/02/16 06:51 07:00 07:11 Temperature Pulse Rate 116 H 116 H 118 H Pulse Rate [ Bilateral Bases ] Respiratory 22 26 H 26 H Rate Respiratory Rate [Bilateral Bases] Blood Pressure 117/61 117/61 117/61 O2 Sat by Pulse 92 95 94 Oximetry 10/02/16 10/02/16 10/02/16 07:21 07:30 07:41 Temperature Pulse Rate 115 H 113 H 111 H Pulse Rate [ Bilateral Bases ] Respiratory 26 H 24 26 H Rate Respiratory Rate [Bilateral Bases] Blood Pressure 117/61 117/54 117/54 O2 Sat by Pulse 94 87 93 Oximetry 10/02/16 10/02/16 10/02/16 07:51 08:00 08:11 Temperature 100.8 F H Pulse Rate 112 H 112 H 110 H Pulse Rate [ Bilateral Bases ] Respiratory 30 H 24 25 H Rate Respiratory Rate [Bilateral Bases] Blood Pressure 117/54 108/53 108/53 O2 Sat by Pulse 93 90 93 Oximetry 10/02/16 10/02/16 10/02/16 08:21 08:29 08:36 Temperature Pulse Rate 111 H 112 H Pulse Rate [ 112 H Bilateral Bases ] Respiratory 25 H Rate Respiratory 26 H Rate [Bilateral Bases] Blood Pressure 108/53 108/53 O2 Sat by Pulse 94 94 Oximetry Constitutional: other (sedated) Eyes: non-icteric ENT: oropharynx moist Neck: supple, no lymphadenopathy Effort: mildly labored Ascultation: Bilateral: rales Cardiovascular: regular rate and rhythm Gastrointestinal: normoactive bowel sounds, soft, non-tender, non-distended Integumentary: normal Extremities: no cyanosis, no edema, pulses normal, no ischemia or petechiae Neurologic: normal mental status, non-focal exam, pupils equal and round, CN II- XII normal Psychiatric: depressed CBC and BMP: 10/02/16 06:00 10/02/16 06:00 ABG, PT/INR, D-dimer: ABG POC ABG pH 7.383 (7.35-7.45) 10/02/16 05:05 POC ABG pCO2 50.5 (35-45) H 10/02/16 05:05 POC ABG pO2 81 (80-105) 10/02/16 05:05 POC ABG HCO3 30.1 10/02/16 05:05 POC ABG Total CO2 32 10/02/16 05:05 POC ABG O2 Sat 95 10/02/16 05:05 PT/INR, D-dimer PT 14.5 Sec. (12.2-14.9) 09/20/16 10:35 INR 1.14 (0.87-1.13) H 09/20/16 10:35 D-Dimer 4758.12 ng/mlDDU (0-234) H 09/27/16 22:47 Abnormal lab findings: Abnormal Labs 09/20/16 09/20/16 09/20/16 10:35 10:35 10:35 WBC 11.7 H RBC Hgb Hct MCV 75 L MCH 24 L RDW 16.6 H Seg Neuts % (Manual) Lymphocytes % (Manual) Nucleated RBC % Seg Neutrophils # Man Monocytes # (Manual) Percent Retic INR 1.14 H D-Dimer POC ABG pH POC ABG pCO2 POC ABG pO2 Sodium Potassium Chloride Carbon Dioxide BUN Creatinine 0.5 L Glucose 115 H POC Glucose Lactic Acid Calcium Total Bilirubin 2.0 H Lactate Dehydrogenase Total Creatine Kinase CK-MB (CK-2) C-Reactive Protein NT-Pro-B Natriuret Pep Crossmatch 09/26/16 09/26/16 09/27/16 04:26 04:26 10:26 WBC RBC Hgb 8.9 L Hct 28.0 L MCV MCH RDW Seg Neuts % (Manual) Lymphocytes % (Manual) Nucleated RBC % Seg Neutrophils # Man Monocytes # (Manual) Percent Retic INR D-Dimer POC ABG pH 7.283 L POC ABG pCO2 45.3 H POC ABG pO2 79 L Sodium Potassium Chloride Carbon Dioxide 20 L BUN Creatinine Glucose 129 H POC Glucose Lactic Acid Calcium 7.6 L Total Bilirubin Lactate Dehydrogenase Total Creatine Kinase CK-MB (CK-2) C-Reactive Protein NT-Pro-B Natriuret Pep Crossmatch 09/27/16 09/27/16 09/27/16 14:40 14:40 15:14 WBC 39.3 H RBC Hgb 9.3 L Hct 28.9 L MCV 75 L MCH 24 L RDW 18.7 H Seg Neuts % (Manual) 93.5 H Lymphocytes % (Manual) 5.0 L Nucleated RBC % Seg Neutrophils # Man 36.7 H Monocytes # (Manual) Percent Retic INR D-Dimer POC ABG pH POC ABG pCO2 POC ABG pO2 Sodium Potassium Chloride Carbon Dioxide BUN Creatinine Glucose POC Glucose Lactic Acid 2.9 H* Calcium Total Bilirubin Lactate Dehydrogenase Total Creatine Kinase 3575 H CK-MB (CK-2) 11.0 H C-Reactive Protein 16.10 H NT-Pro-B Natriuret Pep Crossmatch 09/27/16 09/27/16 09/27/16 18:05 22:47 22:47 WBC RBC Hgb Hct MCV MCH RDW Seg Neuts % (Manual) Lymphocytes % (Manual) Nucleated RBC % Seg Neutrophils # Man Monocytes # (Manual) Percent Retic INR D-Dimer 4758.12 H POC ABG pH POC ABG pCO2 POC ABG pO2 70 L Sodium Potassium Chloride Carbon Dioxide BUN Creatinine Glucose POC Glucose Lactic Acid Calcium Total Bilirubin Lactate Dehydrogenase 829 H Total Creatine Kinase CK-MB (CK-2) C-Reactive Protein NT-Pro-B Natriuret Pep Crossmatch 09/27/16 09/28/16 09/28/16 22:47 09:20 10:47 WBC RBC Hgb Hct MCV MCH RDW Seg Neuts % (Manual) Lymphocytes % (Manual) Nucleated RBC % Seg Neutrophils # Man Monocytes # (Manual) Percent Retic 8.11 H INR D-Dimer POC ABG pH POC ABG pCO2 47.2 H POC ABG pO2 70 L Sodium Potassium Chloride Carbon Dioxide BUN Creatinine 0.6 L Glucose 137 H POC Glucose Lactic Acid Calcium Total Bilirubin Lactate Dehydrogenase Total Creatine Kinase CK-MB (CK-2) C-Reactive Protein NT-Pro-B Natriuret Pep Crossmatch 09/28/16 09/30/16 09/30/16 10:47 11:01 14:05 WBC 30.3 H RBC 3.27 L Hgb 8.1 L Hct 24.4 L MCV 75 L MCH 25 L RDW 18.9 H Seg Neuts % (Manual) Lymphocytes % (Manual) 12.0 L Nucleated RBC % 5.0 H Seg Neutrophils # Man 21.2 H Monocytes # (Manual) 1.8 H Percent Retic INR D-Dimer POC ABG pH POC ABG pCO2 48.8 H POC ABG pO2 52 L Sodium Potassium Chloride Carbon Dioxide BUN Creatinine Glucose POC Glucose Lactic Acid Calcium Total Bilirubin Lactate Dehydrogenase Total Creatine Kinase CK-MB (CK-2) C-Reactive Protein NT-Pro-B Natriuret Pep 2018 H Crossmatch 09/30/16 09/30/16 09/30/16 14:05 14:05 14:05 WBC 22.1 H RBC 2.76 L Hgb 6.9 L Hct 20.6 L MCV 75 L MCH 25 L RDW 18.7 H Seg Neuts % (Manual) 74.0 H Lymphocytes % (Manual) 7.0 L Nucleated RBC % 52.0 H Seg Neutrophils # Man 16.4 H Monocytes # (Manual) Percent Retic INR D-Dimer POC ABG pH POC ABG pCO2 POC ABG pO2 Sodium Potassium 3.1 L Chloride Carbon Dioxide BUN Creatinine 0.5 L Glucose 116 H POC Glucose Lactic Acid Calcium 8.2 L Total Bilirubin Lactate Dehydrogenase Total Creatine Kinase CK-MB (CK-2) C-Reactive Protein 30.80 H NT-Pro-B Natriuret Pep Crossmatch 09/30/16 10/01/16 10/01/16 14:33 00:55 00:55 WBC 26.1 H RBC 2.80 L Hgb 6.8 L Hct 20.8 L MCV 74 L MCH 24 L RDW 18.6 H Seg Neuts % (Manual) 85.0 H Lymphocytes % (Manual) 11.0 L Nucleated RBC % 21.0 H Seg Neutrophils # Man 22.2 H Monocytes # (Manual) 1.0 H Percent Retic INR D-Dimer POC ABG pH POC ABG pCO2 47.8 H POC ABG pO2 201 H Sodium Potassium Chloride Carbon Dioxide BUN Creatinine Glucose POC Glucose Lactic Acid Calcium Total Bilirubin Lactate Dehydrogenase Total Creatine Kinase CK-MB (CK-2) C-Reactive Protein NT-Pro-B Natriuret Pep Crossmatch See Detail 10/01/16 10/01/16 10/01/16 04:57 05:00 13:01 WBC RBC Hgb Hct MCV MCH RDW Seg Neuts % (Manual) Lymphocytes % (Manual) Nucleated RBC % Seg Neutrophils # Man Monocytes # (Manual) Percent Retic INR D-Dimer POC ABG pH POC ABG pCO2 58.5 H POC ABG pO2 149 H Sodium 149 H Potassium 3.0 L Chloride Carbon Dioxide BUN Creatinine Glucose POC Glucose 120 H Lactic Acid Calcium 8.3 L Total Bilirubin Lactate Dehydrogenase Total Creatine Kinase CK-MB (CK-2) C-Reactive Protein NT-Pro-B Natriuret Pep Crossmatch 10/01/16 10/01/16 10/01/16 15:43 17:44 23:37 WBC 27.6 H RBC 3.55 L Hgb 8.9 L Hct 27.6 L D MCV 78 L D MCH 25 L RDW 18.1 H Seg Neuts % (Manual) 79.5 H Lymphocytes % (Manual) 8.0 L Nucleated RBC % 65.0 H Seg Neutrophils # Man 21.9 H Monocytes # (Manual) 1.0 H Percent Retic INR D-Dimer POC ABG pH POC ABG pCO2 POC ABG pO2 Sodium Potassium Chloride Carbon Dioxide BUN Creatinine Glucose POC Glucose 121 H 129 H Lactic Acid Calcium Total Bilirubin Lactate Dehydrogenase Total Creatine Kinase CK-MB (CK-2) C-Reactive Protein NT-Pro-B Natriuret Pep Crossmatch 10/02/16 10/02/16 10/02/16 05:05 06:00 06:00 WBC 23.0 H RBC 3.30 L Hgb 8.3 L Hct 25.8 L MCV 78 L MCH 25 L RDW 18.2 H Seg Neuts % (Manual) 83.5 H Lymphocytes % (Manual) 4.0 L Nucleated RBC % 14.5 H Seg Neutrophils # Man 25.1 H Monocytes # (Manual) 1.7 H Percent Retic INR D-Dimer POC ABG pH POC ABG pCO2 50.5 H POC ABG pO2 Sodium 150 H Potassium Chloride 108.3 H Carbon Dioxide BUN 20 H Creatinine 1.4 H D Glucose 117 H POC Glucose Lactic Acid Calcium Total Bilirubin Lactate Dehydrogenase Total Creatine Kinase CK-MB (CK-2) C-Reactive Protein NT-Pro-B Natriuret Pep Crossmatch Chest x-ray: image reviewed
--- NOTE | 2016-10-02 12:42 | Consultation ---
History of Present Illness - Reason for Consult Consult date: 10/02/16 Leukocytosis Requesting physician: DANUTA ALY - History of Present Illness Ms. Love is a 41-year-old woman with a history of SCD, admitted with severe left hip pain and found to have AVN. She had this surgically repaired last week. She developed acute respiratory failure requiring intubation and mechanical ventilation post-operatively. She also had a notable drop of hemoglobin requiring a pRBC transfusion of 4 units. She has had a remarkable leukocytosis to >30, although this has been downtrending recently. Cultures of body fluids show no growth. Sputum culture is, also, negative. She is on empiric Levaquin, Zosyn and Vancomycin. ID is consulted for further treatment and evaluation recommendations. Past History Past Medical History: anemia (sickle cell anemia) Social history: no significant social history Family history: no significant family history Medications and Allergies Allergies Allergy/AdvReac Type Severity Reaction Status Date / Time No Known Allergies Allergy Unverified 10/13/13 13:21 Home Medications Medication Instructions Recorded Confirmed Last Taken Type Folic Acid [Folvite] 1 mg PO QDAY 10/13/13 09/18/16 09/18/16 History oxyCODONE /ACETAMINOPHEN [Percocet 1 tab PO Q6HR PRN #10 tablet 10/13/1309/18/16 Rx 5/325 mg] Promethazine [Phenergan] 25 mg PO Q6H PRN 08/16/14 09/18/16 09/18/16 History valACYclovir [Valtrex] 500 mg PO DAILY 08/16/14 09/18/16 09/18/16 History Active Meds: Active Medications Acetaminophen (Tylenol) 650 mg PO Q4H PRN PRN Reason: Pain MILD(1-3)/Fever >100.5/PALACIOS Last Admin: 09/28/16 01:57 Dose: 650 mg Albuterol/Ipratropium (Duoneb 0.5 Mg-3 Mg/3 Ml Soln) 1 ampul IH Q6HRT [facility] Last Admin: 10/02/16 01:31 Dose: 1 ampul Lipase/Protease/Amylase (Pancreaze Dr 10,500 Unit) 1 each FEEDTUBE PRN PRN PRN Reason: For Clogged Feeding Tube Arformoterol Tartrate (Brovana Anil) 15 mcg IH Q12HRT [facility] Last Admin: 10/02/16 08:36 Dose: 15 mcg Aspirin (Aspirin) 325 mg PO BID [facility] Last Admin: 10/02/16 10:31 Dose: 325 mg Budesonide (Pulmicort) 0.5 mg IH Q12HRT [facility] Last Admin: 10/02/16 08:36 Dose: 0.5 mg Celecoxib (Celebrex) 100 mg PO BID [facility] Last Admin: 10/02/16 10:38 Dose: Not Given Diphenhydramine HCl (Benadryl) 12.5 mg IV Q4H PRN PRN Reason: Itching Last Admin: 09/30/16 07:02 Dose: 12.5 mg Enoxaparin Sodium (Lovenox) 40 mg SUB-Q QDAY [facility] Last Admin: 10/02/16 10:38 Dose: 40 mg Famotidine (Pepcid) 20 mg PO BID [facility] Last Admin: 10/02/16 10:31 Dose: 20 mg Folic Acid (Folvite) 1 mg PO QDAY [facility] Last Admin: 10/02/16 10:31 Dose: 1 mg Hydrophilic Ointment (Vaseline Lip Therapy) 1 applic TP Q2HR PRN PRN Reason: Dry Lips Levofloxacin/Dextrose (Levaquin 750mg/150ml) 750 mg in 150 mls @ 100 mls/hr IV Q24HR [facility] PRN Reason: Protocol Last Admin: 10/02/16 10:31 Dose: 100 mls/hr Piperacillin Sod/Tazobactam Sod (Zosyn/Ns 4.5gm/100ml) 4.5 gm in 100 mls @ 200 mls/hr IV Q8HR [facility] PRN Reason: Protocol Last Admin: 10/02/16 05:45 Dose: 200 mls/hr Fentanyl Citrate (Fentanyl Drip Premix) 2,000 mcg in 100 mls @ 4.649 mls/hr IV TITR [facility]AD[facility]; 1 MCG/KG/HR PRN Reason: Protocol Last Admin: 10/02/16 06:41 Dose: 2 mcg/kg/hr, 9.299 mls/hr Propofol (Diprivan 10 Mg/Ml) 1,000 mg in 100 mls @ 2.79 mls/hr IV TITR SADAF; 5 MCG/KG/MIN PRN Reason: Protocol Midazolam HCl 100 mg/ Sodium (Chloride) 100 mls @ 2 mls/hr IV TITR SADAF; 2 MG/HR PRN Reason: Protocol Last Admin: 10/01/16 20:25 Dose: 2 mg/hr, 2 mls/hr Vancomycin HCl 1,250 mg/ (Sodium Chloride) 275 mls @ 166.667 mls/hr IV Q8H [facility] Last Admin: 10/02/16 05:54 Dose: 166.667 mls/hr Sodium Chloride (Nacl 0.45% 1000 Ml) 1,000 mls @ 125 mls/hr IV DIRECT [facility] Insulin Human Regular (Novolin R) 0 units SUB-Q Q6HR [facility] PRN Reason: Protocol Last Admin: 10/02/16 05:55 Dose: Not Given Multi-Ingred Cream/Lotion/Oil/Oint (Artificial Tears Ophth Oint) 1 applic OU Q4HR PRN PRN Reason: Dry Eye(s) Multivitamins (Theragran Tab) 1 each PO QDAY [facility] Last Admin: 10/02/16 10:31 Dose: 1 each Ondansetron HCl (Zofran) 4 mg IV Q8H PRN PRN Reason: Nausea And Vomiting Last Admin: 09/29/16 23:07 Dose: 4 mg Promethazine HCl (Phenergan) 25 mg OR Q6H PRN PRN Reason: Nausea And Vomiting Last Admin: 09/25/16 22:05 Dose: 25 mg Senna (Senokot) 17.2 mg PO DAILY [facility] Last Admin: 10/02/16 10:31 Dose: 17.2 mg Simple Syrup (Simple Syrup) 15 ml FEEDTUBE PRN PRN PRN Reason: Hypoglycemia Simple Syrup (Simple Syrup) 30 ml FEEDTUBE PRN PRN PRN Reason: Hypoglycemia Sodium Bicarbonate (Sodium Bicarbonate) 325 mg FEEDTUBE PRN PRN PRN Reason: For Clogged Feeding Tube Sodium Chloride (Sodium Chloride Flush Syringe 10 Ml) 10 ml IV PRN PRN PRN Reason: LINE FLUSH Tramadol HCl (Ultram) 50 mg PO Q4H PRN PRN Reason: Pain, Moderate (4-6) Last Admin: 09/26/16 20:45 Dose: 50 mg Valacyclovir HCl (Valtrex) 500 mg PO DAILY [facility] Last Admin: 10/02/16 10:46 Dose: 500 mg Vancomycin HCl (Vancomycin Pharmacy To Dose) 1 each IV PKCONSULT [facility] PRN Reason: Protocol Zolpidem Tartrate (Ambien) 5 mg PO QHS PRN PRN Reason: Sleep Review of Systems ROS unobtainable: due to endotracheal tube Physical Examination - Physical Exam Narrative exam: intubated, FiO2 86% - Constitutional Vitals: Vital Signs Temp Pulse Resp BP Pulse Ox 99.5 F 117 H 26 H 120/59 95 10/02/16 12:00 10/02/16 12:14 10/02/16 08:36 10/02/16 12:14 10/02/16 12:14 Temperature -Last 24 Hours Temperature 99.5 F Temperature 100.8 F Temperature 100.6 F Temperature 100.8 F Temperature 100.6 F Temperature 98.2 F General appearance: Present: well-nourished - EENT Eyes: Absent: discharge ENT: other (ET tube and NG in place) - Respiratory Respiratory: bilateral: CTA, negative: wheezing - Cardiovascular Rhythm: regular (tachycardic to 110-120s) Heart Sounds: Present: S1 & S2 - Extremities Extremities: No edema Extremity abnormal: other (left hip incision is stapled with no expressable purulence or evidence of bleeding; area appears appropriately mildly edematous) - Abdominal Female genitourinary: Present: other (Montes with yellow urine) - Additional findings Additional findings: PICC or midline at left wrm without surrounding inflammation Results - Labs CBC & Chem 7: 10/02/16 06:00 10/02/16 06:00 Labs: Abnormal lab results 10/01/16 10/01/16 10/01/16 Range/Units 13:01 15:43 17:44 WBC 27.6 H (4.5-11.0) K/mm3 RBC 3.55 L (3.65-5.03) M/mm3 Hgb 8.9 L (10.1-14.3) gm/dl Hct 27.6 L D (30.3-42.9) % MCV 78 L D (79-97) fl MCH 25 L (28-32) pg RDW 18.1 H (13.2-15.2) % Seg Neuts % (Manual) 79.5 H (40.0-70.0) % Lymphocytes % (Manual) 8.0 L (13.4-35.0) % Nucleated RBC % 65.0 H (0.0-0.9) % Seg Neutrophils # Man 21.9 H (1.8-7.7) K/mm3 Monocytes # (Manual) 1.0 H (0.0-0.8) K/mm3 POC ABG pCO2 (35-45) Sodium (137-145) mmol/L Chloride (98-107) mmol/L BUN (7-17) mg/dL Creatinine (0.7-1.2) mg/dL Glucose (65-100) mg/dL POC Glucose 120 H 121 H (70-105) 10/01/16 10/02/16 10/02/16 Range/Units 23:37 05:05 06:00 WBC 23.0 H (4.5-11.0) K/mm3 RBC 3.30 L (3.65-5.03) M/mm3 Hgb 8.3 L (10.1-14.3) gm/dl Hct 25.8 L (30.3-42.9) % MCV 78 L (79-97) fl MCH 25 L (28-32) pg RDW 18.2 H (13.2-15.2) % Seg Neuts % (Manual) 83.5 H (40.0-70.0) % Lymphocytes % (Manual) 4.0 L (13.4-35.0) % Nucleated RBC % 14.5 H (0.0-0.9) % Seg Neutrophils # Man 25.1 H (1.8-7.7) K/mm3 Monocytes # (Manual) 1.7 H (0.0-0.8) K/mm3 POC ABG pCO2 50.5 H (35-45) Sodium (137-145) mmol/L Chloride (98-107) mmol/L BUN (7-17) mg/dL Creatinine (0.7-1.2) mg/dL Glucose (65-100) mg/dL POC Glucose 129 H (70-105) 10/02/16 Range/Units 06:00 WBC (4.5-11.0) K/mm3 RBC (3.65-5.03) M/mm3 Hgb (10.1-14.3) gm/dl Hct (30.3-42.9) % MCV (79-97) fl MCH (28-32) pg RDW (13.2-15.2) % Seg Neuts % (Manual) (40.0-70.0) % Lymphocytes % (Manual) (13.4-35.0) % Nucleated RBC % (0.0-0.9) % Seg Neutrophils # Man (1.8-7.7) K/mm3 Monocytes # (Manual) (0.0-0.8) K/mm3 POC ABG pCO2 (35-45) Sodium 150 H (137-145) mmol/L Chloride 108.3 H (98-107) mmol/L BUN 20 H (7-17) mg/dL Creatinine 1.4 H D (0.7-1.2) mg/dL Glucose 117 H (65-100) mg/dL POC Glucose (70-105) Microbiology 09/30/16 Unknown Tracheal Aspirate Sputum Culture - Final 09/27/16 22:47 Peripheral/Venous Blood Culture - Preliminary NO GROWTH AFTER 4 DAYS 09/27/16 22:47 Peripheral/Venous Blood Culture - Preliminary NO GROWTH AFTER 4 DAYS 09/27/16 15:06 Peripheral/Venous Blood Culture - Preliminary NO GROWTH AFTER 4 DAYS 09/27/16 14:40 Peripheral/Venous Blood Culture - Preliminary NO GROWTH AFTER 4 DAYS Assessment and Plan - Patient Problems (1) Sepsis Current Visit: Yes Status: Acute Qualifiers: Sepsis type: sepsis due to unspecified organism Qualified Code(s): A41.9 - Sepsis, unspecified organism Plan to address problem: Would obtain CT imaging of left hip, when patient is stable for study. Will discontinue Levaquin and narrow Zosyn somewhat to Cefepime. Keep Vancomycin pending further imaging studies of hip. Micro data to date is negative.
[2016-10-02] MEDS: MAXIPIME/NS 1 GM/100 ML 1 GM/100 ML BAG IV SCH ×2 (15:00→22:19)
--- NOTE | 2016-10-02 18:27 | Consultation ---
History of Present Illness - Reason for Consult Consult date: 10/02/16 - History of Present Illness Patient seen/examined, labs reviewed, case d/w her family at the bed side. Past History Past Medical History: anemia (sickle cell anemia) Social history: no significant social history Family history: no significant family history Medications and Allergies Allergies Allergy/AdvReac Type Severity Reaction Status Date / Time No Known Allergies Allergy Unverified 10/13/13 13:21 Home Medications Medication Instructions Recorded Confirmed Last Taken Type Folic Acid [Folvite] 1 mg PO QDAY 10/13/13 09/18/16 09/18/16 History oxyCODONE /ACETAMINOPHEN [Percocet 1 tab PO Q6HR PRN #10 tablet 10/13/1309/18/16 Rx 5/325 mg] Promethazine [Phenergan] 25 mg PO Q6H PRN 08/16/14 09/18/16 09/18/16 History valACYclovir [Valtrex] 500 mg PO DAILY 08/16/14 09/18/16 09/18/16 History Active Meds: Active Medications Acetaminophen (Tylenol) 650 mg PO Q4H PRN PRN Reason: Pain MILD(1-3)/Fever >100.5/PALACIOS Last Admin: 09/28/16 01:57 Dose: 650 mg Albuterol/Ipratropium (Duoneb 0.5 Mg-3 Mg/3 Ml Soln) 1 ampul IH Q6HRT [facility] Last Admin: 10/02/16 14:40 Dose: 1 ampul Lipase/Protease/Amylase (Pancrejacinto Dr 10,500 Unit) 1 each FEEDTUBE PRN PRN PRN Reason: For Clogged Feeding Tube Arformoterol Tartrate (Brovana Nebu) 15 mcg IH Q12HRT [facility] Last Admin: 10/02/16 08:36 Dose: 15 mcg Aspirin (Aspirin) 325 mg PO BID [facility] Last Admin: 10/02/16 10:31 Dose: 325 mg Budesonide (Pulmicort) 0.5 mg IH Q12HRT [facility] Last Admin: 10/02/16 08:36 Dose: 0.5 mg Celecoxib (Celebrex) 100 mg PO BID [facility] Last Admin: 10/02/16 10:38 Dose: Not Given Diphenhydramine HCl (Benadryl) 12.5 mg IV Q4H PRN PRN Reason: Itching Last Admin: 09/30/16 07:02 Dose: 12.5 mg Enoxaparin Sodium (Lovenox) 40 mg SUB-Q QDAY [facility] Last Admin: 10/02/16 10:38 Dose: 40 mg Famotidine (Pepcid) 20 mg PO BID [facility] Last Admin: 10/02/16 10:31 Dose: 20 mg Folic Acid (Folvite) 1 mg PO QDAY [facility] Last Admin: 10/02/16 10:31 Dose: 1 mg Hydrophilic Ointment (Vaseline Lip Therapy) 1 applic TP Q2HR PRN PRN Reason: Dry Lips Fentanyl Citrate (Fentanyl Drip Premix) 2,000 mcg in 100 mls @ 4.649 mls/hr IV TITR SADAF; 1 MCG/KG/HR PRN Reason: Protocol Last Admin: 10/02/16 16:31 Dose: 2 mcg/kg/hr, 9.299 mls/hr Propofol (Diprivan 10 Mg/Ml) 1,000 mg in 100 mls @ 2.79 mls/hr IV TITR SADAF; 5 MCG/KG/MIN PRN Reason: Protocol Midazolam HCl 100 mg/ Sodium (Chloride) 100 mls @ 2 mls/hr IV TITR SADAF; 2 MG/HR PRN Reason: Protocol Last Admin: 10/01/16 20:25 Dose: 2 mg/hr, 2 mls/hr Vancomycin HCl 1,250 mg/ (Sodium Chloride) 275 mls @ 166.667 mls/hr IV Q8H [facility] Last Admin: 10/02/16 13:00 Dose: 166.667 mls/hr Sodium Chloride (Nacl 0.45% 1000 Ml) 1,000 mls @ 125 mls/hr IV DIRECT [facility] Cefepime HCl (Maxipime/Ns 1 Gm/100 Ml) 1 gm in 100 mls @ 200 mls/hr IV Q8HR [facility] PRN Reason: Protocol Last Admin: 10/02/16 15:00 Dose: 200 mls/hr Insulin Human Regular (Novolin R) 0 units SUB-Q Q6HR [facility] PRN Reason: Protocol Last Admin: 10/02/16 18:11 Dose: Not Given Multi-Ingred Cream/Lotion/Oil/Oint (Artificial Tears Ophth Oint) 1 applic OU Q4HR PRN PRN Reason: Dry Eye(s) Multivitamins (Theragran Tab) 1 each PO QDAY [facility] Last Admin: 10/02/16 10:31 Dose: 1 each Ondansetron HCl (Zofran) 4 mg IV Q8H PRN PRN Reason: Nausea And Vomiting Last Admin: 09/29/16 23:07 Dose: 4 mg Promethazine HCl (Phenergan) 25 mg [place] Q6H PRN PRN Reason: Nausea And Vomiting Last Admin: 09/25/16 22:05 Dose: 25 mg Senna (Senokot) 17.2 mg PO DAILY [facility] Last Admin: 10/02/16 10:31 Dose: 17.2 mg Simple Syrup (Simple Syrup) 15 ml FEEDTUBE PRN PRN PRN Reason: Hypoglycemia Simple Syrup (Simple Syrup) 30 ml FEEDTUBE PRN PRN PRN Reason: Hypoglycemia Sodium Bicarbonate (Sodium Bicarbonate) 325 mg FEEDTUBE PRN PRN PRN Reason: For Clogged Feeding Tube Sodium Chloride (Sodium Chloride Flush Syringe 10 Ml) 10 ml IV PRN PRN PRN Reason: LINE FLUSH Tramadol HCl (Ultram) 50 mg PO Q4H PRN PRN Reason: Pain, Moderate (4-6) Last Admin: 09/26/16 20:45 Dose: 50 mg Valacyclovir HCl (Valtrex) 500 mg PO DAILY [facility] Last Admin: 10/02/16 10:46 Dose: 500 mg Vancomycin HCl (Vancomycin Pharmacy To Dose) 1 each IV PKCONSULT [facility] PRN Reason: Protocol Zolpidem Tartrate (Ambien) 5 mg PO QHS PRN PRN Reason: Sleep Review of Systems Breasts: deferred Respiratory: other (on the vent.) Exam - Constitutional Vitals: Temp Pulse Resp BP Pulse Ox 98.6 F 128 H 31 H 131/65 88 10/02/16 16:00 10/02/16 18:10 10/02/16 18:10 10/02/16 18:10 10/02/16 18:10 General appearance: Present: severe distress, well-nourished - EENT Eyes: Present: PERRL ENT: hearing intact, clear oral mucosa - Neck Neck: Present: supple, normal ROM - Respiratory Respiratory: bilateral: CTA - Cardiovascular Heart Sounds: Present: S1 & S2. Absent: rub, click - Extremities Extremities: pulses symmetrical, No edema Peripheral Pulses: within normal limits - Abdominal General gastrointestinal: Present: soft, non-tender, non-distended, normal bowel sounds Female genitourinary: Present: deferred - Rectal Rectal Exam: deferred - Integumentary Integumentary: Present: clear, warm, dry - Musculoskeletal Musculoskeletal: gait normal, strength equal bilaterally - Psychiatric Psychiatric: appropriate mood/affect, intact judgment & insight - Neurologic Neurologic: CNII-XII intact, moves all extremities Results - Labs CBC & Chem 7: 10/02/16 06:00 10/02/16 06:00 Labs: Abnormal lab results 10/01/16 10/01/16 10/01/16 Range/Units 13:01 15:43 17:44 WBC (4.5-11.0) K/mm3 RBC (3.65-5.03) M/mm3 Hgb (10.1-14.3) gm/dl Hct (30.3-42.9) % MCV (79-97) fl MCH (28-32) pg RDW (13.2-15.2) % Seg Neuts % (Manual) 79.5 H (40.0-70.0) % Lymphocytes % (Manual) 8.0 L (13.4-35.0) % Nucleated RBC % 65.0 H (0.0-0.9) % Seg Neutrophils # Man 21.9 H (1.8-7.7) K/mm3 Monocytes # (Manual) 1.0 H (0.0-0.8) K/mm3 POC ABG pCO2 (35-45) Sodium (137-145) mmol/L Chloride (98-107) mmol/L BUN (7-17) mg/dL Creatinine (0.7-1.2) mg/dL Glucose (65-100) mg/dL POC Glucose 120 H 121 H (70-105) 10/01/16 10/02/16 10/02/16 Range/Units 23:37 05:05 06:00 WBC 23.0 H (4.5-11.0) K/mm3 RBC 3.30 L (3.65-5.03) M/mm3 Hgb 8.3 L (10.1-14.3) gm/dl Hct 25.8 L (30.3-42.9) % MCV 78 L (79-97) fl MCH 25 L (28-32) pg RDW 18.2 H (13.2-15.2) % Seg Neuts % (Manual) 83.5 H (40.0-70.0) % Lymphocytes % (Manual) 4.0 L (13.4-35.0) % Nucleated RBC % 14.5 H (0.0-0.9) % Seg Neutrophils # Man 25.1 H (1.8-7.7) K/mm3 Monocytes # (Manual) 1.7 H (0.0-0.8) K/mm3 POC ABG pCO2 50.5 H (35-45) Sodium (137-145) mmol/L Chloride (98-107) mmol/L BUN (7-17) mg/dL Creatinine (0.7-1.2) mg/dL Glucose (65-100) mg/dL POC Glucose 129 H (70-105) 10/02/16 Range/Units 06:00 WBC (4.5-11.0) K/mm3 RBC (3.65-5.03) M/mm3 Hgb (10.1-14.3) gm/dl Hct (30.3-42.9) % MCV (79-97) fl MCH (28-32) pg RDW (13.2-15.2) % Seg Neuts % (Manual) (40.0-70.0) % Lymphocytes % (Manual) (13.4-35.0) % Nucleated RBC % (0.0-0.9) % Seg Neutrophils # Man (1.8-7.7) K/mm3 Monocytes # (Manual) (0.0-0.8) K/mm3 POC ABG pCO2 (35-45) Sodium 150 H (137-145) mmol/L Chloride 108.3 H (98-107) mmol/L BUN 20 H (7-17) mg/dL Creatinine 1.4 H D (0.7-1.2) mg/dL Glucose 117 H (65-100) mg/dL POC Glucose (70-105) Assessment and Plan - Patient Problems (1) Arthritis of left hip Current Visit: Yes Status: Deleted Plan to address problem: Follow post surgical management. (2) Avascular necrosis of bone of left hip Current Visit: Yes Status: Chronic Plan to address problem: Post surgical pain management., post surgical anticoagulation. (3) Sepsis Current Visit: Yes Status: Acute Qualifiers: Sepsis type: sepsis due to unspecified organism Qualified Code(s): A41.9 - Sepsis, unspecified organism Plan to address problem: SEE w/up in the notes. No improvement so far. (4) Sleep apnea syndrome Current Visit: Yes Status: Acute Qualifiers: Sleep apnea type: S Plan to address problem: oxygen/BIPAP management. Patient now in full resp failure, and on the vent.
[2016-10-02] MEDS: NACL 0.45% 1000 ML 1,000 ML IV SCH (18:28)
[2016-10-02] MEDS: TYLENOL PO PRN (20:06)
[2016-10-02 22:01] LABS: ISTAT Base Excess 5; ISTAT HCO3 31.5; ISTAT PCO2 60.5 (35-45); ISTAT PH 7.324 (7.35-7.45); ISTAT PO2 74 (80-105); ISTAT SO2 93; ISTAT TCO2 33
[2016-10-03] MEDS: DUONEB 0.5 MG-3 MG/3 ML SOLN IH SCH ×4 (01:42→20:56)
[2016-10-03] MEDS: NACL 0.45% 1000 ML 1,000 ML IV SCH ×2 (02:36→11:17)
[2016-10-03] MEDS: fentaNYL DRIP Premix 2,000 MCG/100 ML BAG IV SCH ×3 (02:36→18:13)
[2016-10-03] MEDS: VANCOMYCIN 1,250 MG in NACL 0.9% 250ML 250 ML IV SCH ×2 (04:08→11:23)
[2016-10-03] MEDS: MAXIPIME/NS 1 GM/100 ML 1 GM/100 ML BAG IV SCH ×3 (05:54→22:07)
--- NOTE | 2016-10-03 08:25 | Progress Note ---
Assessment and Plan - Patient Problems (1) Sepsis Current Visit: Yes Status: Acute Qualifiers: Sepsis type: sepsis due to unspecified organism Qualified Code(s): A41.9 - Sepsis, unspecified organism Plan to address problem: Unclear source of sepsis, pneumonia vs. inrta-abdominal process vs. surgical site bleed, etc. Would obtain CT imaging of the chest/ abdomen/ pelvis when patient is stable for transport. Will continue broad antibiotic coverage and resubmit sputum for bacterial and viral culture, also repeat blood and urine culture. Subjective Date of service: 10/03/16 Principal diagnosis: Acute Hypoxemic Respiratory Failure; ARDS Interval history: Patient remains critically ill, intubated in ICU. Febrile overnight to >101 deg F. No new localizing issues. Objective - Constitutional Vitals: Vital Signs Temp Pulse Resp BP Pulse Ox 98.7 F 111 H 31 H 133/79 84 10/03/16 08:00 10/03/16 08:00 10/03/16 08:00 10/03/16 08:00 10/03/16 08:00 Temperature -Last 24 Hours Temperature 98.7 F Temperature 100.0 F Temperature 100 F Temperature 100.2 F Temperature 100.2 F Temperature 101.1 F Temperature 98.6 F Temperature 99.5 F General appearance: Present: other (intubated, ill-appearing) - EENT Eyes: exopthalmos, no discharge ENT: other (ET and NG tubes in place) - Respiratory Respiratory: bilateral: CTA (auscultation limited by body habitus), negative: rales, rhonchi - Cardiovascular Rhythm: regular (tachycardic) Heart Sounds: Present: S1 & S2 Extremity abnormal: other (left hip is intervally unchange without local edema, erythema, drainage or bleeding) - Gastrointestinal General gastrointestinal: Present: soft, non-distended, other (obese) - Genitourinary Female genitourinary: other (Montes catheter with normal-appearing urine) - Integumentary Integumentary: no rash - Additional findings Additional findings: PICC at left upper extremity. - Labs CBC & Chem 7: 10/02/16 06:00 10/02/16 06:00 Labs: Abnormal lab results 10/02/16 10/02/16 10/02/16 Range/Units 05:40 06:00 11:42 WBC 23.0 H (4.5-11.0) K/mm3 Seg Neuts % (Manual) 83.5 H (40.0-70.0) % Lymphocytes % (Manual) 4.0 L (13.4-35.0) % Nucleated RBC % 14.5 H (0.0-0.9) % Seg Neutrophils # Man 25.1 H (1.8-7.7) K/mm3 Monocytes # (Manual) 1.7 H (0.0-0.8) K/mm3 POC ABG pH (7.35-7.45) POC ABG pCO2 (35-45) POC ABG pO2 (80-105) POC Glucose 123 H 135 H (70-105) 10/02/16 10/02/16 10/03/16 Range/Units 21:52 23:26 05:55 WBC (4.5-11.0) K/mm3 Seg Neuts % (Manual) (40.0-70.0) % Lymphocytes % (Manual) (13.4-35.0) % Nucleated RBC % (0.0-0.9) % Seg Neutrophils # Man (1.8-7.7) K/mm3 Monocytes # (Manual) (0.0-0.8) K/mm3 POC ABG pH 7.324 L (7.35-7.45) POC ABG pCO2 60.5 H (35-45) POC ABG pO2 74 L (80-105) POC Glucose 121 H 145 H (70-105) Microbiology 09/27/16 22:47 Peripheral/Venous Blood Culture - Final NO GROWTH AFTER 5 DAYS 09/27/16 22:47 Peripheral/Venous Blood Culture - Final NO GROWTH AFTER 5 DAYS 09/27/16 15:06 Peripheral/Venous Blood Culture - Final NO GROWTH AFTER 5 DAYS 09/27/16 14:40 Peripheral/Venous Blood Culture - Final NO GROWTH AFTER 5 DAYS 09/30/16 Unknown Tracheal Aspirate Sputum Culture - Final
--- NOTE | 2016-10-03 08:57 | XRay Report ---
AP CHEST :10/03/16 02:16 CLINICAL: Intubated.Follow up respiratory failure. COMPARISON:10/02/16 FINDINGS: The endotracheal tube is in satisfactory position. The feeding tube is satisfactory. A right [id number] tip is in the SVC. Diffuse bilateral extensive airspace disease with air bronchograms. The heart is large and the pulmonary vessels are obscured. No pneumothorax. IMPRESSION: Extensive bilateral multilobar airspace disease with no change.
[2016-10-03 09:01] LABS: BUN/Creatinine Ratio 18.23; Calcium 8.7 mg/dL (8.4-10.2); Chloride 107.6 mmol/L (98-107); Potassium 4.6 mmol/L (3.6-5.0)
[2016-10-03 09:02] LABS: Hematocrit 24.6 % (30.3-42.9); Hemoglobin 7.9 gm/dl (10.1-14.3); Mean Corpuscular HGB Conc 32 % (30-34); Mean Corpuscular Volume 79 fl (79-97); Platelet Count 132 K/mm3 (140-440); Red Blood Count 3.13 M/mm3 (3.65-5.03); Red Cell Distribution Width 18.9 % (13.2-15.2)
[2016-10-03 09:06] LABS: Mean Corpuscular Hemoglobin 25 pg (28-32)
[2016-10-03] MEDS: BROVANA NEBU IH SCH ×2 (09:36→20:55)
[2016-10-03] MEDS: PULMICORT IH SCH ×2 (09:36→20:55)
[2016-10-03] MEDS: MIDAZOLAM 100 MG in NACL 0.9% 80 ML IV SCH (09:59)
[2016-10-03] MEDS: LOVENOX SUB-Q SCH (10:04)
[2016-10-03] MEDS: FOLVITE PO SCH (10:04)
[2016-10-03] MEDS: SENOKOT PO SCH (10:05)
[2016-10-03] MEDS: PEPCID PO SCH ×2 (10:05→22:09)
[2016-10-03] MEDS: THERAGRAN Tab PO SCH (10:05)
[2016-10-03] MEDS: ASPIRIN PO SCH (10:05)
[2016-10-03] MEDS: VALTREX PO SCH (10:06)
[2016-10-03 10:34] LABS: ISTAT Base Excess 1; ISTAT HCO3 27.7; ISTAT PCO2 59.7 (35-45); ISTAT PH 7.274 (7.35-7.45); ISTAT PO2 58 (80-105); ISTAT SO2 85; ISTAT TCO2 29
--- NOTE | 2016-10-03 11:18 | Progress Note ---
Assessment and Plan - Patient Problems (1) Acute respiratory failure with hypoxia Current Visit: Yes Status: Acute Plan to address problem: - stopped diuressis - continue ARDS ventilation / LTVV strategies keep Peep at 18 - permissive hypercapnia - continue bronchodilators and pulmonary toilet - continue aspiration precautions / VAP bundles - continue to wean oxygen for sats > 92% - serial ABG's (2) ARDS (adult respiratory distress syndrome) Current Visit: Yes Status: Acute Plan to address problem: - 2D ECHO reports normal EF without impaired relaxation - etiology unclear - treating empirically as HCAP - increased Peep as above (3) Obesity Current Visit: Yes Status: Acute Qualifiers: Obesity type: O Obesity severity: O Plan to address problem: - weight loss counselled earlier - outpatient sleep clinic evaluation at discharge (4) Avascular necrosis of bone of left hip Current Visit: Yes Status: Chronic Plan to address problem: - s/p hip replacement surgery - per orthopedic surgeon otherwise - ? fat emboli syndrome - ? hematoma (wound looks good though) (5) Sepsis syndrome Current Visit: Yes Status: Acute Plan to address problem: - continue empiric AB's - ID evaluation ongoing - anti-infectives per ID recs (6) Anemia Current Visit: Yes Status: Acute Qualifiers: Anemia type: A Iron deficiency anemia type: I Vitamin B12 deficiency anemia type: V Folate deficiency anemia type: F Bone marrow failure anemia type: B Hemolytic anemia type: H Other causes of anemia: O Plan to address problem: - multifactorial - suspect ABLA component - h/o sickle cell - prn PRBC transfusions - hematology following (7) Discharge planning issues Current Visit: Yes Status: Acute Plan to address problem: - appears may be a prolonged ICU stay .....she remains critically ill on life sustaining interventions including MVS and at risk for further deterioration including 30' CCT Subjective Date of service: 10/03/16 Principal diagnosis: Acute Hypoxemic Respiratory Failure; ARDS Interval history: Seen and examined at bedside; 24 hour events reviewed; nursing and respiratory care staff consulted; no adverse overnight events reported to me; remains with ARDS numbers; no emesis or overt aspiration; agitated during sedation holidays Objective Vital Signs - 12hr 10/02/16 10/02/16 10/02/16 23:20 23:30 23:40 Temperature Pulse Rate 112 H 113 H 113 H Pulse Rate [ Apical] Pulse Rate [ Bilateral Bases ] Respiratory 28 H 24 25 H Rate Respiratory Rate [Bilateral Bases] Blood Pressure 112/55 113/63 113/63 O2 Sat by Pulse 94 95 Oximetry 10/02/16 10/03/16 10/03/16 23:50 00:00 00:10 Temperature 100.2 F H Pulse Rate 112 H 111 H 109 H Pulse Rate [ Apical] Pulse Rate [ Bilateral Bases ] Respiratory 29 H 30 H 27 H Rate Respiratory Rate [Bilateral Bases] Blood Pressure 113/63 105/60 113/63 O2 Sat by Pulse 95 92 95 Oximetry 10/03/16 10/03/16 10/03/16 00:20 00:30 00:34 Temperature Pulse Rate 110 H 109 H Pulse Rate [ Apical] Pulse Rate [ Bilateral Bases ] Respiratory 27 H 28 H 25 H Rate Respiratory Rate [Bilateral Bases] Blood Pressure 113/63 109/59 O2 Sat by Pulse 95 93 95 Oximetry 10/03/16 10/03/16 10/03/16 00:40 00:50 00:52 Temperature Pulse Rate 109 H 108 H 111 H Pulse Rate [ Apical] Pulse Rate [ Bilateral Bases ] Respiratory 28 H 30 H Rate Respiratory Rate [Bilateral Bases] Blood Pressure 105/60 105/60 112/55 O2 Sat by Pulse 95 94 94 Oximetry 10/03/16 10/03/16 10/03/16 01:00 01:10 01:20 Temperature Pulse Rate 111 H 107 H 104 H Pulse Rate [ Apical] Pulse Rate [ Bilateral Bases ] Respiratory 25 H 26 H 24 Rate Respiratory Rate [Bilateral Bases] Blood Pressure 105/50 105/50 105/50 O2 Sat by Pulse 85 93 93 Oximetry 10/03/16 10/03/16 10/03/16 01:30 01:40 01:43 Temperature Pulse Rate 105 H 104 H Pulse Rate [ Apical] Pulse Rate [ 105 H Bilateral Bases ] Respiratory 26 H 26 H Rate Respiratory 23 Rate [Bilateral Bases] Blood Pressure 94/43 94/43 O2 Sat by Pulse 86 97 Oximetry 10/03/16 10/03/16 10/03/16 01:50 01:58 02:00 Temperature Pulse Rate 104 H 102 H Pulse Rate [ Apical] Pulse Rate [ 107 H Bilateral Bases ] Respiratory 27 H 27 H Rate Respiratory 23 Rate [Bilateral Bases] Blood Pressure 94/43 88/41 O2 Sat by Pulse 100 97 Oximetry 10/03/16 10/03/16 10/03/16 02:10 02:20 02:30 Temperature Pulse Rate 103 H 114 H 108 H Pulse Rate [ Apical] Pulse Rate [ Bilateral Bases ] Respiratory 24 41 H 23 Rate Respiratory Rate [Bilateral Bases] Blood Pressure 88/41 115/55 113/63 O2 Sat by Pulse 95 77 L 88 Oximetry 10/03/16 10/03/16 10/03/16 02:40 02:50 03:00 Temperature Pulse Rate 113 H 110 H 107 H Pulse Rate [ Apical] Pulse Rate [ Bilateral Bases ] Respiratory 25 H 25 H 25 H Rate Respiratory Rate [Bilateral Bases] Blood Pressure 88/41 88/41 115/64 O2 Sat by Pulse 90 91 90 Oximetry 10/03/16 10/03/16 10/03/16 03:10 03:20 03:30 Temperature Pulse Rate 107 H 105 H 104 H Pulse Rate [ Apical] Pulse Rate [ Bilateral Bases ] Respiratory 22 27 H 26 H Rate Respiratory Rate [Bilateral Bases] Blood Pressure 115/64 115/64 128/69 O2 Sat by Pulse 95 96 92 Oximetry 10/03/16 10/03/16 10/03/16 03:40 03:50 04:00 Temperature Pulse Rate 103 H 102 H 102 H Pulse Rate [ Apical] Pulse Rate [ Bilateral Bases ] Respiratory 26 H 25 H 26 H Rate Respiratory Rate [Bilateral Bases] Blood Pressure 128/69 128/69 114/64 O2 Sat by Pulse 94 96 91 Oximetry 10/03/16 10/03/16 10/03/16 04:03 04:10 04:20 Temperature 100 F H Pulse Rate 103 H 108 H Pulse Rate [ Apical] Pulse Rate [ Bilateral Bases ] Respiratory 24 38 H Rate Respiratory Rate [Bilateral Bases] Blood Pressure 114/64 114/64 O2 Sat by Pulse 95 86 Oximetry 10/03/16 10/03/16 10/03/16 04:29 04:30 04:39 Temperature 100.0 F H Pulse Rate 103 H Pulse Rate [ Apical] Pulse Rate [ Bilateral Bases ] Respiratory 25 H 22 Rate Respiratory Rate [Bilateral Bases] Blood Pressure 117/53 O2 Sat by Pulse 94 89 Oximetry 10/03/16 10/03/16 10/03/16 04:40 04:50 05:00 Temperature Pulse Rate 100 H 99 H 101 H Pulse Rate [ Apical] Pulse Rate [ Bilateral Bases ] Respiratory 25 H 27 H 26 H Rate Respiratory Rate [Bilateral Bases] Blood Pressure 114/64 114/64 120/59 O2 Sat by Pulse 96 97 91 Oximetry 10/03/16 10/03/16 10/03/16 05:07 05:10 05:20 Temperature Pulse Rate 101 H 103 H 100 H Pulse Rate [ Apical] Pulse Rate [ Bilateral Bases ] Respiratory 23 27 H Rate Respiratory Rate [Bilateral Bases] Blood Pressure 120/59 120/59 120/59 O2 Sat by Pulse 97 95 95 Oximetry 10/03/16 10/03/16 10/03/16 05:30 05:40 05:50 Temperature Pulse Rate 99 H 98 H 104 H Pulse Rate [ Apical] Pulse Rate [ Bilateral Bases ] Respiratory 28 H 26 H 29 H Rate Respiratory Rate [Bilateral Bases] Blood Pressure 117/58 117/58 117/58 O2 Sat by Pulse 92 95 81 L Oximetry 10/03/16 10/03/16 10/03/16 06:00 06:10 06:20 Temperature Pulse Rate 106 H 101 H 101 H Pulse Rate [ Apical] Pulse Rate [ Bilateral Bases ] Respiratory 24 25 H 24 Rate Respiratory Rate [Bilateral Bases] Blood Pressure 119/63 119/63 119/63 O2 Sat by Pulse 80 L 90 93 Oximetry 10/03/16 10/03/16 10/03/16 06:30 06:40 06:50 Temperature Pulse Rate 100 H 98 H 99 H Pulse Rate [ Apical] Pulse Rate [ Bilateral Bases ] Respiratory 23 26 H 24 Rate Respiratory Rate [Bilateral Bases] Blood Pressure 115/62 115/62 115/62 O2 Sat by Pulse 86 92 92 Oximetry 10/03/16 10/03/16 10/03/16 07:00 07:10 07:20 Temperature Pulse Rate 99 H 100 H 98 H Pulse Rate [ Apical] Pulse Rate [ Bilateral Bases ] Respiratory 25 H 24 23 Rate Respiratory Rate [Bilateral Bases] Blood Pressure 123/55 123/55 123/55 O2 Sat by Pulse 86 93 94 Oximetry 10/03/16 10/03/16 10/03/16 07:30 07:40 07:50 Temperature Pulse Rate 99 H 110 H 107 H Pulse Rate [ Apical] Pulse Rate [ Bilateral Bases ] Respiratory 24 39 H 40 H Rate Respiratory Rate [Bilateral Bases] Blood Pressure 116/59 116/59 116/59 O2 Sat by Pulse 89 89 90 Oximetry 10/03/16 10/03/16 10/03/16 07:53 08:00 08:37 Temperature 98.7 F 98.7 F Pulse Rate 111 H Pulse Rate [ 113 H Apical] Pulse Rate [ Bilateral Bases ] Respiratory 30 H 31 H Rate Respiratory Rate [Bilateral Bases] Blood Pressure 133/79 O2 Sat by Pulse 86 84 Oximetry 10/03/16 10/03/16 10/03/16 09:12 09:25 09:40 Temperature Pulse Rate 114 H Pulse Rate [ Apical] Pulse Rate [ 111 H 110 H Bilateral Bases ] Respiratory Rate Respiratory 36 H 35 H Rate [Bilateral Bases] Blood Pressure 145/79 O2 Sat by Pulse 88 Oximetry 10/03/16 10:00 Temperature Pulse Rate Pulse Rate [ Apical] Pulse Rate [ Bilateral Bases ] Respiratory 28 H Rate Respiratory Rate [Bilateral Bases] Blood Pressure O2 Sat by Pulse Oximetry Constitutional: other (sedated) Eyes: non-icteric ENT: oropharynx moist Neck: supple, no lymphadenopathy Effort: mildly labored Ascultation: Bilateral: diminished breath sounds, rales Cardiovascular: regular rate and rhythm Gastrointestinal: normoactive bowel sounds, soft, non-tender, non-distended Integumentary: normal Extremities: no cyanosis, no edema, pulses normal, no ischemia or petechiae Neurologic: unable to assess Psychiatric: other (sedated) CBC and BMP: 10/04/16 04:00 10/04/16 04:03 ABG, PT/INR, D-dimer: ABG POC ABG pH 7.274 (7.35-7.45) L 10/03/16 09:26 POC ABG pCO2 59.7 (35-45) H 10/03/16 09:26 POC ABG pO2 58 (80-105) L 10/03/16 09:26 POC ABG HCO3 27.7 10/03/16 09:26 POC ABG Total CO2 29 10/03/16 09:26 POC ABG O2 Sat 85 10/03/16 09:26 PT/INR, D-dimer PT 14.5 Sec. (12.2-14.9) 09/20/16 10:35 INR 1.14 (0.87-1.13) H 09/20/16 10:35 D-Dimer 4758.12 ng/mlDDU (0-234) H 09/27/16 22:47 Abnormal lab findings: Abnormal Labs 09/20/16 09/20/16 09/20/16 10:35 10:35 10:35 WBC 11.7 H RBC Hgb Hct MCV 75 L MCH 24 L RDW 16.6 H Plt Count Seg Neuts % (Manual) Lymphocytes % (Manual) Nucleated RBC % Seg Neutrophils # Man Monocytes # (Manual) Percent Retic INR 1.14 H D-Dimer POC ABG pH POC ABG pCO2 POC ABG pO2 Sodium Potassium Chloride Carbon Dioxide BUN Creatinine 0.5 L Glucose 115 H POC Glucose Lactic Acid Calcium Total Bilirubin 2.0 H Lactate Dehydrogenase Total Creatine Kinase CK-MB (CK-2) C-Reactive Protein NT-Pro-B Natriuret Pep Crossmatch 09/26/16 09/26/16 09/27/16 04:26 04:26 10:26 WBC RBC Hgb 8.9 L Hct 28.0 L MCV MCH RDW Plt Count Seg Neuts % (Manual) Lymphocytes % (Manual) Nucleated RBC % Seg Neutrophils # Man Monocytes # (Manual) Percent Retic INR D-Dimer POC ABG pH 7.283 L POC ABG pCO2 45.3 H POC ABG pO2 79 L Sodium Potassium Chloride Carbon Dioxide 20 L BUN Creatinine Glucose 129 H POC Glucose Lactic Acid Calcium 7.6 L Total Bilirubin Lactate Dehydrogenase Total Creatine Kinase CK-MB (CK-2) C-Reactive Protein NT-Pro-B Natriuret Pep Crossmatch 09/27/16 09/27/16 09/27/16 14:40 14:40 15:14 WBC 39.3 H RBC Hgb 9.3 L Hct 28.9 L MCV 75 L MCH 24 L RDW 18.7 H Plt Count Seg Neuts % (Manual) 93.5 H Lymphocytes % (Manual) 5.0 L Nucleated RBC % Seg Neutrophils # Man 36.7 H Monocytes # (Manual) Percent Retic INR D-Dimer POC ABG pH POC ABG pCO2 POC ABG pO2 Sodium Potassium Chloride Carbon Dioxide BUN Creatinine Glucose POC Glucose Lactic Acid 2.9 H* Calcium Total Bilirubin Lactate Dehydrogenase Total Creatine Kinase 3575 H CK-MB (CK-2) 11.0 H C-Reactive Protein 16.10 H NT-Pro-B Natriuret Pep Crossmatch 09/27/16 09/27/16 09/27/16 18:05 22:47 22:47 WBC RBC Hgb Hct MCV MCH RDW Plt Count Seg Neuts % (Manual) Lymphocytes % (Manual) Nucleated RBC % Seg Neutrophils # Man Monocytes # (Manual) Percent Retic INR D-Dimer 4758.12 H POC ABG pH POC ABG pCO2 POC ABG pO2 70 L Sodium Potassium Chloride Carbon Dioxide BUN Creatinine Glucose POC Glucose Lactic Acid Calcium Total Bilirubin Lactate Dehydrogenase 829 H Total Creatine Kinase CK-MB (CK-2) C-Reactive Protein NT-Pro-B Natriuret Pep Crossmatch 09/27/16 09/28/16 09/28/16 22:47 09:20 10:47 WBC RBC Hgb Hct MCV MCH RDW Plt Count Seg Neuts % (Manual) Lymphocytes % (Manual) Nucleated RBC % Seg Neutrophils # Man Monocytes # (Manual) Percent Retic 8.11 H INR D-Dimer POC ABG pH POC ABG pCO2 47.2 H POC ABG pO2 70 L Sodium Potassium Chloride Carbon Dioxide BUN Creatinine 0.6 L Glucose 137 H POC Glucose Lactic Acid Calcium Total Bilirubin Lactate Dehydrogenase Total Creatine Kinase CK-MB (CK-2) C-Reactive Protein NT-Pro-B Natriuret Pep Crossmatch 09/28/16 09/30/16 09/30/16 10:47 11:01 14:05 WBC 30.3 H RBC 3.27 L Hgb 8.1 L Hct 24.4 L MCV 75 L MCH 25 L RDW 18.9 H Plt Count Seg Neuts % (Manual) Lymphocytes % (Manual) 12.0 L Nucleated RBC % 5.0 H Seg Neutrophils # Man 21.2 H Monocytes # (Manual) 1.8 H Percent Retic INR D-Dimer POC ABG pH POC ABG pCO2 48.8 H POC ABG pO2 52 L Sodium Potassium Chloride Carbon Dioxide BUN Creatinine Glucose POC Glucose Lactic Acid Calcium Total Bilirubin Lactate Dehydrogenase Total Creatine Kinase CK-MB (CK-2) C-Reactive Protein NT-Pro-B Natriuret Pep 2018 H Crossmatch 09/30/16 09/30/16 09/30/16 14:05 14:05 14:05 WBC 22.1 H RBC 2.76 L Hgb 6.9 L Hct 20.6 L MCV 75 L MCH 25 L RDW 18.7 H Plt Count Seg Neuts % (Manual) 74.0 H Lymphocytes % (Manual) 7.0 L Nucleated RBC % 52.0 H Seg Neutrophils # Man 16.4 H Monocytes # (Manual) Percent Retic INR D-Dimer POC ABG pH POC ABG pCO2 POC ABG pO2 Sodium Potassium 3.1 L Chloride Carbon Dioxide BUN Creatinine 0.5 L Glucose 116 H POC Glucose Lactic Acid Calcium 8.2 L Total Bilirubin Lactate Dehydrogenase Total Creatine Kinase CK-MB (CK-2) C-Reactive Protein 30.80 H NT-Pro-B Natriuret Pep Crossmatch 09/30/16 10/01/16 10/01/16 14:33 00:55 00:55 WBC 26.1 H RBC 2.80 L Hgb 6.8 L Hct 20.8 L MCV 74 L MCH 24 L RDW 18.6 H Plt Count Seg Neuts % (Manual) 85.0 H Lymphocytes % (Manual) 11.0 L Nucleated RBC % 21.0 H Seg Neutrophils # Man 22.2 H Monocytes # (Manual) 1.0 H Percent Retic INR D-Dimer POC ABG pH POC ABG pCO2 47.8 H POC ABG pO2 201 H Sodium Potassium Chloride Carbon Dioxide BUN Creatinine Glucose POC Glucose Lactic Acid Calcium Total Bilirubin Lactate Dehydrogenase Total Creatine Kinase CK-MB (CK-2) C-Reactive Protein NT-Pro-B Natriuret Pep Crossmatch See Detail 10/01/16 10/01/16 10/01/16 04:57 05:00 13:01 WBC RBC Hgb Hct MCV MCH RDW Plt Count Seg Neuts % (Manual) Lymphocytes % (Manual) Nucleated RBC % Seg Neutrophils # Man Monocytes # (Manual) Percent Retic INR D-Dimer POC ABG pH POC ABG pCO2 58.5 H POC ABG pO2 149 H Sodium 149 H Potassium 3.0 L Chloride Carbon Dioxide BUN Creatinine Glucose POC Glucose 120 H Lactic Acid Calcium 8.3 L Total Bilirubin Lactate Dehydrogenase Total Creatine Kinase CK-MB (CK-2) C-Reactive Protein NT-Pro-B Natriuret Pep Crossmatch 10/01/16 10/01/16 10/01/16 15:43 17:44 23:37 WBC 27.6 H RBC 3.55 L Hgb 8.9 L Hct 27.6 L D MCV 78 L D MCH 25 L RDW 18.1 H Plt Count Seg Neuts % (Manual) 79.5 H Lymphocytes % (Manual) 8.0 L Nucleated RBC % 65.0 H Seg Neutrophils # Man 21.9 H Monocytes # (Manual) 1.0 H Percent Retic INR D-Dimer POC ABG pH POC ABG pCO2 POC ABG pO2 Sodium Potassium Chloride Carbon Dioxide BUN Creatinine Glucose POC Glucose 121 H 129 H Lactic Acid Calcium Total Bilirubin Lactate Dehydrogenase Total Creatine Kinase CK-MB (CK-2) C-Reactive Protein NT-Pro-B Natriuret Pep Crossmatch 10/02/16 10/02/16 10/02/16 05:05 05:40 06:00 WBC 23.0 H RBC 3.30 L Hgb 8.3 L Hct 25.8 L MCV 78 L MCH 25 L RDW 18.2 H Plt Count Seg Neuts % (Manual) 83.5 H Lymphocytes % (Manual) 4.0 L Nucleated RBC % 14.5 H Seg Neutrophils # Man 25.1 H Monocytes # (Manual) 1.7 H Percent Retic INR D-Dimer POC ABG pH POC ABG pCO2 50.5 H POC ABG pO2 Sodium Potassium Chloride Carbon Dioxide BUN Creatinine Glucose POC Glucose 123 H Lactic Acid Calcium Total Bilirubin Lactate Dehydrogenase Total Creatine Kinase CK-MB (CK-2) C-Reactive Protein NT-Pro-B Natriuret Pep Crossmatch 10/02/16 10/02/16 10/02/16 06:00 11:42 21:52 WBC RBC Hgb Hct MCV MCH RDW Plt Count Seg Neuts % (Manual) Lymphocytes % (Manual) Nucleated RBC % Seg Neutrophils # Man Monocytes # (Manual) Percent Retic INR D-Dimer POC ABG pH 7.324 L POC ABG pCO2 60.5 H POC ABG pO2 74 L Sodium 150 H Potassium Chloride 108.3 H Carbon Dioxide BUN 20 H Creatinine 1.4 H D Glucose 117 H POC Glucose 135 H Lactic Acid Calcium Total Bilirubin Lactate Dehydrogenase Total Creatine Kinase CK-MB (CK-2) C-Reactive Protein NT-Pro-B Natriuret Pep Crossmatch 10/02/16 10/03/16 10/03/16 23:26 05:55 08:17 WBC 32.0 H RBC 3.13 L Hgb 7.9 L Hct 24.6 L MCV MCH 25 L RDW 18.9 H Plt Count 132 L Seg Neuts % (Manual) Lymphocytes % (Manual) Nucleated RBC % Seg Neutrophils # Man Monocytes # (Manual) Percent Retic INR D-Dimer POC ABG pH POC ABG pCO2 POC ABG pO2 Sodium Potassium Chloride Carbon Dioxide BUN Creatinine Glucose POC Glucose 121 H 145 H Lactic Acid Calcium Total Bilirubin Lactate Dehydrogenase Total Creatine Kinase CK-MB (CK-2) C-Reactive Protein NT-Pro-B Natriuret Pep Crossmatch 10/03/16 10/03/16 08:17 09:26 WBC RBC Hgb Hct MCV MCH RDW Plt Count Seg Neuts % (Manual) Lymphocytes % (Manual) Nucleated RBC % Seg Neutrophils # Man Monocytes # (Manual) Percent Retic INR D-Dimer POC ABG pH 7.274 L POC ABG pCO2 59.7 H POC ABG pO2 58 L Sodium 147 H Potassium Chloride 107.6 H Carbon Dioxide BUN 31 H Creatinine 1.7 H Glucose 118 H POC Glucose Lactic Acid Calcium Total Bilirubin Lactate Dehydrogenase Total Creatine Kinase CK-MB (CK-2) C-Reactive Protein NT-Pro-B Natriuret Pep Crossmatch Chest x-ray: image reviewed
[2016-10-03 11:37] LABS: Basophils % (Manual) 0 % (0.0-1.8); Blastocytes % (Manual) 0 %
[2016-10-03 11:38] LABS: Hypochromasia 2+; Polychromasia Few; Target Cells 1+
[2016-10-03 11:39] LABS: Anisocytosis 2+
[2016-10-03 11:40] LABS: Diff Status Complete; Elliptocytes Few; Giant Platelets Few; Schistocytes Few
--- NOTE | 2016-10-03 15:26 | Consultation ---
History of Present Illness - Reason for Consult Consult date: 10/03/16 acute renal failure - History of Present Illness This is a 41 year old female who was admitted to the hospital on 09/24/16 to undergo Total Hip Arthroplasty to left hip secondary to Avascular necrosis. Patient had the surgery done on 09/25/16 and was going to be discharged home by Orthopedic Surgeon on 09/27/16. However, discharge was cancelled that day due to patient developing Respiratory Distress secondary to Pulmonary Edema and altered mentation. Patient was transferred to ICU and subsequently was intubated on 09/30/16 and diuresed. Patient was also found to be Septic and was started on Levaquin and ID was consulted. Blood cultures showed no growth to date. Patient has Sickle Cell disease resulting in Anemia requiring PRBC's transfusions. Patient's baseline serum creatinine is less than 1.0 upon review of medical records. Patient's serum creatinine is elevated at 1.7 today. We are being consulted for management of this patient's Acute Renal Failure. Past History Past Medical History: anemia (sickle cell anemia) Social history: no significant social history Family history: no significant family history Medications and Allergies Allergies Allergy/AdvReac Type Severity Reaction Status Date / Time No Known Allergies Allergy Unverified 10/13/13 13:21 Home Medications Medication Instructions Recorded Confirmed Last Taken Type Folic Acid [Folvite] 1 mg PO QDAY 10/13/13 09/18/16 09/18/16 History oxyCODONE /ACETAMINOPHEN [Percocet 1 tab PO Q6HR PRN #10 tablet 10/13/1309/18/16 Rx 5/325 mg] Promethazine [Phenergan] 25 mg PO Q6H PRN 08/16/14 09/18/16 09/18/16 History valACYclovir [Valtrex] 500 mg PO DAILY 08/16/14 09/18/16 09/18/16 History Active Meds: Active Medications Acetaminophen (Tylenol) 650 mg PO Q4H PRN PRN Reason: Pain MILD(1-3)/Fever >100.5/PALACIOS Last Admin: 10/02/16 20:06 Dose: 650 mg Albuterol/Ipratropium (Duoneb 0.5 Mg-3 Mg/3 Ml Soln) 1 ampul IH Q6HRT SADAF Last Admin: 10/03/16 09:37 Dose: 1 ampul Lipase/Protease/Amylase (Pancreaze Dr 10,500 Unit) 1 each FEEDTUBE PRN PRN PRN Reason: For Clogged Feeding Tube Arformoterol Tartrate (Brovana Nebu) 15 mcg IH Q12HRT [facility] Last Admin: 10/03/16 09:36 Dose: 15 mcg Aspirin (Aspirin) 325 mg PO BID [facility] Last Admin: 10/03/16 10:05 Dose: 325 mg Budesonide (Pulmicort) 0.5 mg IH Q12HRT [facility] Last Admin: 10/03/16 09:36 Dose: 0.5 mg Celecoxib (Celebrex) 100 mg PO BID [facility] Last Admin: 10/03/16 10:06 Dose: 100 mg Diphenhydramine HCl (Benadryl) 12.5 mg IV Q4H PRN PRN Reason: Itching Last Admin: 09/30/16 07:02 Dose: 12.5 mg Enoxaparin Sodium (Lovenox) 40 mg SUB-Q QDAY [facility] Last Admin: 10/03/16 10:04 Dose: 40 mg Famotidine (Pepcid) 20 mg PO BID [facility] Last Admin: 10/03/16 10:05 Dose: 20 mg Folic Acid (Folvite) 1 mg PO QDAY [facility] Last Admin: 10/03/16 10:04 Dose: 1 mg Hydrophilic Ointment (Vaseline Lip Therapy) 1 applic TP Q2HR PRN PRN Reason: Dry Lips Fentanyl Citrate (Fentanyl Drip Premix) 2,000 mcg in 100 mls @ 4.649 mls/hr IV TITR SADAF; 1 MCG/KG/HR PRN Reason: Protocol Last Titration: 10/03/16 11:19 Dose: 2 mcg/kg/hr, 9.299 mls/hr Propofol (Diprivan 10 Mg/Ml) 1,000 mg in 100 mls @ 2.79 mls/hr IV TITR SADAF; 5 MCG/KG/MIN PRN Reason: Protocol Midazolam HCl 100 mg/ Sodium (Chloride) 100 mls @ 2 mls/hr IV TITR SADAF; 2 MG/HR PRN Reason: Protocol Last Admin: 10/03/16 09:59 Dose: 2 mg/hr, 2 mls/hr Vancomycin HCl 1,250 mg/ (Sodium Chloride) 275 mls @ 166.667 mls/hr IV Q8H [facility] Last Admin: 10/03/16 11:23 Dose: 166.667 mls/hr Cefepime HCl (Maxipime/Ns 1 Gm/100 Ml) 1 gm in 100 mls @ 200 mls/hr IV Q8HR [facility] PRN Reason: Protocol Last Admin: 10/03/16 13:51 Dose: 200 mls/hr Insulin Human Regular (Novolin R) 0 units SUB-Q Q6HR [facility] PRN Reason: Protocol Last Admin: 10/03/16 14:18 Dose: Not Given Multi-Ingred Cream/Lotion/Oil/Oint (Artificial Tears Ophth Oint) 1 applic OU Q4HR PRN PRN Reason: Dry Eye(s) Multivitamins (Theragran Tab) 1 each PO QDAY [facility] Last Admin: 10/03/16 10:05 Dose: 1 each Ondansetron HCl (Zofran) 4 mg IV Q8H PRN PRN Reason: Nausea And Vomiting Last Admin: 09/29/16 23:07 Dose: 4 mg Promethazine HCl (Phenergan) 25 mg MD Q6H PRN PRN Reason: Nausea And Vomiting Last Admin: 09/25/16 22:05 Dose: 25 mg Senna (Senokot) 17.2 mg PO DAILY [facility] Last Admin: 10/03/16 10:05 Dose: 17.2 mg Simple Syrup (Simple Syrup) 15 ml FEEDTUBE PRN PRN PRN Reason: Hypoglycemia Simple Syrup (Simple Syrup) 30 ml FEEDTUBE PRN PRN PRN Reason: Hypoglycemia Sodium Bicarbonate (Sodium Bicarbonate) 325 mg FEEDTUBE PRN PRN PRN Reason: For Clogged Feeding Tube Sodium Chloride (Sodium Chloride Flush Syringe 10 Ml) 10 ml IV PRN PRN PRN Reason: LINE FLUSH Tramadol HCl (Ultram) 50 mg PO Q4H PRN PRN Reason: Pain, Moderate (4-6) Last Admin: 09/26/16 20:45 Dose: 50 mg Valacyclovir HCl (Valtrex) 500 mg PO DAILY [facility] Last Admin: 10/03/16 10:06 Dose: 500 mg Vancomycin HCl (Vancomycin Pharmacy To Dose) 1 each IV PKCONSULT [facility] PRN Reason: Protocol Zolpidem Tartrate (Ambien) 5 mg PO QHS PRN PRN Reason: Sleep Review of Systems ROS unobtainable: due to endotracheal tube, due to mental status Exam - Vital Signs Vital signs: Vital Signs Temp Pulse Resp BP Pulse Ox 98.6 F 86 20 116/80 99 09/25/16 10:25 09/25/16 10:25 09/25/16 10:25 09/25/16 10:25 09/25/16 10:25 - General Appearance General appearance: sedated on ventilator, intubated EENT: ATNC Neck: Present: neck supple Respiratory: Decreased Breath Sounds, Other (Intubated) Heart: tachycardia, S1S2 Gastrointestinal: Present: normoactive bowel sounds, other (Has NG/ tube feeding ) Integumentary: warm and dry Neurologic: other (Intubated and sedated) Musculoskeletal: Present: other (patient has adbuctor pillow between legs, no edema noted) Results - Lab Results 10/03/16 08:17 10/03/16 08:17 Most recent lab results Calcium 8.7 mg/dL (8.4-10.2) 10/03/16 08:17 Assessment and Plan - Patient Problems (1) Avascular necrosis of bone of left hip Current Visit: Yes Status: Chronic Plan to address problem: S/P Athroplasty to left hip on 09/25/16 (2) Acute respiratory failure with hypoxia Current Visit: Yes Status: Acute Plan to address problem: On vent support as per pulmonary (3) Acute renal failure due to tubular necrosis Current Visit: Yes Status: Acute Plan to address problem: Acute Renal Failure secondary to Ischemic ATN secondary to Sepsis Syndrome Will obtain renal ultrasound Will obtain urine lytes- urinalysis, urine sodium, urine protein and urine creatinine Start 1/2 NS@ a gentle rate of 50 ml/he and monitor volume status CXR today revealed: extensive bilateral multilobar airspace disease Hypernatremia- Free water flushes 200 ml every 4 hours Will obtain serum osmolality levels Avoid Nephrotoxic agents Renally dose medications Monitor I/O's Thank you for the kind consult. We will follow. (4) Sepsis syndrome Current Visit: Yes Status: Acute Plan to address problem: ID on board. On IV Cefepime (5) Acute hypernatremia Current Visit: Yes Status: Acute Plan to address problem: Continue free water flushes 200 ml every 4 hours with tube feedings
[2016-10-03] MEDS ORDERED: NACL 0.9% 1000 ML 1,000 ML IV SCH ×2 (16:00→17:00)
[2016-10-03] MEDS ORDERED: NACL 0.45% 1000 ML 1,000 ML IV SCH (17:00)
[2016-10-03 17:23] LABS: Bacteria,Urine 3+ /HPF (Negative); Bilirubin,Urine NEG (Negative); Blood,Urine LG (Negative); Ketones,Urine NEG (Negative); Leukocyte Esterase,Urine TR (Negative); Mucus,Urine FEW /HPF; Nitrite,Urine NEG (Negative); Urobilinogen,Urine < 2.0 mg/dL (<2.0)
--- NOTE | 2016-10-03 18:53 | Progress Note ---
Assessment and Plan The patient is a 41-year-old female with a history of sickle cell disease who was admitted for total hip arthroplasty for avascular necrosis of the left hip. She had left total hip arthroplasty on 09/25/2016 and developed acute hypoxemic respiratory failure following the POD 2 likely from ARDS and ultimately required intubation on 09/27/2016. Her hemoglobin level dropped from 8.1-6.9 on 09/30/2016, also noted to have hypokalemia with potassium level 3.1. Hospitalist service consulted for medical management. Acute respiratory failure - likely due to ARDS, intubated on 09/27/16 - on mechanical ventilation with 85% FiO2 - pulmonary following, cont nebulizer, vent support - wean off as tolerated Severe anemia - likely due to sickle cell crisis - transfused 1 unit PRBC - monitor h and H - hematology following Avscular necrosis of the left hip - s/p total left hip arthoplasty on 09/25/16 Hypokalemia -Status post replacement Sepsis syndrome - Likely from ARDS - Spiking temp, wbc count increased today - Continue with IV cefepime and vancomycin - Cultures are negative - ID following Hypernatremia - improving - Start her on half normal saline - Increase free water with tube feeding - Monitor BMP CARLYN - likely from sepsis syndrome -cont iv fluid, monitor renal function - nephrology following The high probability of a clinically significant, sudden or life threatening deterioration of the system(s) required my full and direct attention, intervention and personal management. The aggregate critical care time was [35] minutes. This time is in addition to time spent performing reported procedures but includes the following: [x] Data Review and interpretation [x] Patient assessment and monitoring of vital signs [x] Documentation [x] Medication orders and management Subjective Date of service: 10/03/16 Principal diagnosis: Acute Hypoxemic Respiratory Failure; ARDS Interval history: Patient seen and examined. Medical records and medication list reviewed. No acute event overnight noted by the RN. Patient remained intubated and sedated Discussed plan of care at bedside with RN Made multiple attempts to call her but was unable to reach out to him, left voice messages Objective - Exam Narrative Exam: GENERAL: well-developed and well-nourished [place] female lying on bed appeared to be in no discomfort. HEENT: Normocephalic. Atraumatic. No conjunctival congestion or icterus. Patient has moist mucous membranes. NECK: Supple. Trachea midline. ET tube in place CHEST/LUNGS: Coarse breath sounds auscultated bilaterally, on mechanical ventilation HEART/CARDIOVASCULAR: Regular in rate and rhythm. S1 and S2 positive. ABDOMEN: Abdomen is soft, nontender. Patient has normal bowel sounds. SKIN: There is no rash. Warm and dry. NEURO: Sedated. MUSCULOSKELETAL: No joint effusion or tenderness. EXTRIMITY: No edema, no cyanosis or clubbing. PSYCH: Unable to assess. - Constitutional Vitals: Vital Signs - 12hr 10/03/16 10/03/16 10/03/16 07:00 07:10 07:20 Temperature Pulse Rate 99 H 100 H 98 H Pulse Rate [ Apical] Pulse Rate [ Bilateral Bases ] Respiratory 25 H 24 23 Rate Respiratory Rate [Bilateral Bases] Blood Pressure 123/55 123/55 123/55 O2 Sat by Pulse 86 93 94 Oximetry 10/03/16 10/03/16 10/03/16 07:30 07:40 07:50 Temperature Pulse Rate 99 H 110 H 107 H Pulse Rate [ Apical] Pulse Rate [ Bilateral Bases ] Respiratory 24 39 H 40 H Rate Respiratory Rate [Bilateral Bases] Blood Pressure 116/59 116/59 116/59 O2 Sat by Pulse 89 89 90 Oximetry 10/03/16 10/03/16 10/03/16 07:53 08:00 08:10 Temperature 98.7 F Pulse Rate 111 H 109 H Pulse Rate [ 113 H Apical] Pulse Rate [ Bilateral Bases ] Respiratory 30 H 31 H 30 H Rate Respiratory Rate [Bilateral Bases] Blood Pressure 133/79 133/79 O2 Sat by Pulse 86 84 85 Oximetry 10/03/16 10/03/16 10/03/16 08:20 08:30 08:37 Temperature 98.7 F Pulse Rate 111 H 114 H Pulse Rate [ Apical] Pulse Rate [ Bilateral Bases ] Respiratory 31 H 27 H Rate Respiratory Rate [Bilateral Bases] Blood Pressure 133/79 133/79 O2 Sat by Pulse 85 87 Oximetry 10/03/16 10/03/16 10/03/16 08:40 08:50 09:00 Temperature Pulse Rate 112 H 112 H 113 H Pulse Rate [ Apical] Pulse Rate [ Bilateral Bases ] Respiratory 30 H 30 H 31 H Rate Respiratory Rate [Bilateral Bases] Blood Pressure 151/78 151/78 145/79 O2 Sat by Pulse 85 86 84 Oximetry 0510/03/16 10/03/16 09:10 09:12 09:20 Temperature Pulse Rate 114 H 114 H 119 H Pulse Rate [ Apical] Pulse Rate [ Bilateral Bases ] Respiratory 36 H 31 H Rate Respiratory Rate [Bilateral Bases] Blood Pressure 145/79 145/79 145/79 O2 Sat by Pulse 90 88 86 Oximetry 10/03/16 10/03/16 10/03/16 09:25 09:30 09:40 Temperature Pulse Rate 111 H 108 H Pulse Rate [ Apical] Pulse Rate [ 111 H 110 H Bilateral Bases ] Respiratory 52 H 40 H Rate Respiratory 36 H 35 H Rate [Bilateral Bases] Blood Pressure 127/79 127/79 O2 Sat by Pulse 84 93 Oximetry 10/03/16 10/03/16 10/03/16 09:50 10:00 10:10 Temperature Pulse Rate 102 H 104 H 105 H Pulse Rate [ Apical] Pulse Rate [ Bilateral Bases ] Respiratory 30 H 26 H 20 Rate Respiratory Rate [Bilateral Bases] Blood Pressure 127/79 129/62 129/62 O2 Sat by Pulse 100 94 97 Oximetry 10/03/16 10/03/16 10/03/16 10:20 10:30 10:40 Temperature Pulse Rate 102 H 101 H 101 H Pulse Rate [ Apical] Pulse Rate [ Bilateral Bases ] Respiratory 22 33 H 26 H Rate Respiratory Rate [Bilateral Bases] Blood Pressure 129/62 119/63 119/63 O2 Sat by Pulse 98 93 98 Oximetry 10/03/16 10/03/16 10/03/16 10:50 11:00 11:10 Temperature Pulse Rate 100 H 101 H 97 H Pulse Rate [ Apical] Pulse Rate [ Bilateral Bases ] Respiratory 26 H 25 H 23 Rate Respiratory Rate [Bilateral Bases] Blood Pressure 119/63 119/65 119/65 O2 Sat by Pulse 98 93 100 Oximetry 10/03/16 10/03/16 10/03/16 11:20 11:30 11:40 Temperature Pulse Rate 97 H 95 H 95 H Pulse Rate [ Apical] Pulse Rate [ Bilateral Bases ] Respiratory 31 H 26 H 33 H Rate Respiratory Rate [Bilateral Bases] Blood Pressure 119/65 117/66 117/66 O2 Sat by Pulse 99 100 99 Oximetry 10/03/16 10/03/16 10/03/16 11:50 12:00 12:10 Temperature 98.3 F Pulse Rate 94 H 92 H 90 Pulse Rate [ 94 H Apical] Pulse Rate [ Bilateral Bases ] Respiratory 33 H 34 H 27 H Rate Respiratory Rate [Bilateral Bases] Blood Pressure 117/66 111/60 111/60 O2 Sat by Pulse 99 95 99 Oximetry 10/03/16 10/03/16 10/03/16 12:20 12:30 12:40 Temperature Pulse Rate 89 88 89 Pulse Rate [ Apical] Pulse Rate [ Bilateral Bases ] Respiratory 33 H 18 18 Rate Respiratory Rate [Bilateral Bases] Blood Pressure 111/60 98/50 98/50 O2 Sat by Pulse 98 98 97 Oximetry 10/03/16 10/03/16 10/03/16 12:50 13:00 13:10 Temperature Pulse Rate 89 89 90 Pulse Rate [ Apical] Pulse Rate [ Bilateral Bases ] Respiratory 18 20 24 Rate Respiratory Rate [Bilateral Bases] Blood Pressure 98/50 98/50 109/63 O2 Sat by Pulse 94 87 96 Oximetry 10/03/16 10/03/16 10/03/16 13:20 13:30 13:40 Temperature Pulse Rate 90 89 89 Pulse Rate [ Apical] Pulse Rate [ Bilateral Bases ] Respiratory 19 17 23 Rate Respiratory Rate [Bilateral Bases] Blood Pressure 109/63 109/63 111/68 O2 Sat by Pulse 95 87 96 Oximetry 10/03/16 10/03/16 10/03/16 13:50 14:00 14:08 Temperature Pulse Rate 90 91 H Pulse Rate [ Apical] Pulse Rate [ Bilateral Bases ] Respiratory 32 H 32 H 27 H Rate Respiratory Rate [Bilateral Bases] Blood Pressure 111/68 104/71 O2 Sat by Pulse 97 90 91 Oximetry 10/03/16 10/03/16 10/03/16 14:10 14:20 14:30 Temperature Pulse Rate 92 H 92 H 92 H Pulse Rate [ Apical] Pulse Rate [ Bilateral Bases ] Respiratory 17 29 H 21 Rate Respiratory Rate [Bilateral Bases] Blood Pressure 104/71 104/71 103/45 O2 Sat by Pulse 95 97 94 Oximetry 10/03/16 10/03/16 10/03/16 14:40 14:42 14:50 Temperature Pulse Rate 91 H 94 H Pulse Rate [ Apical] Pulse Rate [ Bilateral Bases ] Respiratory 26 H 20 Rate Respiratory Rate [Bilateral Bases] Blood Pressure 103/45 103/45 103/45 O2 Sat by Pulse 95 95 91 Oximetry 10/03/16 10/03/16 10/03/16 15:00 15:10 15:20 Temperature Pulse Rate 92 H 91 H 90 Pulse Rate [ Apical] Pulse Rate [ Bilateral Bases ] Respiratory 34 H 18 34 H Rate Respiratory Rate [Bilateral Bases] Blood Pressure 127/67 127/67 127/67 O2 Sat by Pulse 90 92 91 Oximetry 10/03/16 10/03/16 10/03/16 15:30 15:40 15:50 Temperature Pulse Rate 89 89 91 H Pulse Rate [ Apical] Pulse Rate [ Bilateral Bases ] Respiratory 18 29 H 33 H Rate Respiratory Rate [Bilateral Bases] Blood Pressure 134/65 134/65 134/65 O2 Sat by Pulse 88 92 92 Oximetry 10/03/16 10/03/16 10/03/16 16:00 16:10 16:20 Temperature 97.5 F L Pulse Rate 97 H 91 H 93 H Pulse Rate [ 94 H Apical] Pulse Rate [ Bilateral Bases ] Respiratory 25 H 22 21 Rate Respiratory Rate [Bilateral Bases] Blood Pressure 134/65 134/65 134/65 O2 Sat by Pulse 89 92 92 Oximetry 10/03/16 10/03/16 10/03/16 16:30 16:40 16:50 Temperature Pulse Rate 91 H 92 H 93 H Pulse Rate [ Apical] Pulse Rate [ 92 H Bilateral Bases ] Respiratory 22 33 H 32 H Rate Respiratory 32 H Rate [Bilateral Bases] Blood Pressure 134/65 134/65 134/65 O2 Sat by Pulse 92 93 94 Oximetry 10/03/16 10/03/16 10/03/16 17:00 17:10 17:18 Temperature Pulse Rate 92 H 90 Pulse Rate [ Apical] Pulse Rate [ 89 Bilateral Bases ] Respiratory 33 H 24 Rate Respiratory 30 H Rate [Bilateral Bases] Blood Pressure 134/65 134/65 O2 Sat by Pulse 94 94 Oximetry 10/03/16 10/03/16 10/03/16 17:20 17:24 17:30 Temperature Pulse Rate 87 88 87 Pulse Rate [ Apical] Pulse Rate [ Bilateral Bases ] Respiratory 30 H 30 H Rate Respiratory Rate [Bilateral Bases] Blood Pressure 134/65 134/65 O2 Sat by Pulse 100 100 Oximetry 10/03/16 10/03/16 10/03/16 17:37 17:40 17:50 Temperature 97.6 F Pulse Rate 89 89 Pulse Rate [ Apical] Pulse Rate [ Bilateral Bases ] Respiratory 20 33 H Rate Respiratory Rate [Bilateral Bases] Blood Pressure 134/65 134/65 O2 Sat by Pulse 94 94 Oximetry 10/03/16 10/03/16 10/03/16 18:00 18:10 18:17 Temperature Pulse Rate 89 90 Pulse Rate [ Apical] Pulse Rate [ Bilateral Bases ] Respiratory 22 34 H 29 H Rate Respiratory Rate [Bilateral Bases] Blood Pressure 134/65 134/65 O2 Sat by Pulse 94 92 93 Oximetry 10/03/16 18:20 Temperature Pulse Rate 88 Pulse Rate [ Apical] Pulse Rate [ Bilateral Bases ] Respiratory 36 H Rate Respiratory Rate [Bilateral Bases] Blood Pressure 134/65 O2 Sat by Pulse 92 Oximetry - Labs CBC & Chem 7: 10/03/16 08:17 10/03/16 08:17 Labs: Abnormal lab results 10/02/16 10/02/16 10/02/16 Range/Units 05:40 11:42 21:52 WBC (4.5-11.0) K/mm3 RBC (3.65-5.03) M/mm3 Hgb (10.1-14.3) gm/dl Hct (30.3-42.9) % MCH (28-32) pg RDW (13.2-15.2) % Plt Count (140-440) K/mm3 Seg Neuts % (Manual) (40.0-70.0) % Lymphocytes % (Manual) (13.4-35.0) % Nucleated RBC % (0.0-0.9) % Seg Neutrophils # Man (1.8-7.7) K/mm3 Monocytes # (Manual) (0.0-0.8) K/mm3 Eosinophils # (Manual) (0.0-0.4) K/mm3 POC ABG pH 7.324 L (7.35-7.45) POC ABG pCO2 60.5 H (35-45) POC ABG pO2 74 L (80-105) Sodium (137-145) mmol/L Chloride (98-107) mmol/L BUN (7-17) mg/dL Creatinine (0.7-1.2) mg/dL Glucose (65-100) mg/dL POC Glucose 123 H 135 H (70-105) Urine WBC (Auto) (0.0-6.0) /HPF Urine Creatinine (0.1-20.0) mg/dL Urine Total Protein (5-11.8) mg/dL 05/08/1610/03/16 10/03/16 Range/Units 23:26 05:55 08:17 WBC 32.0 H (4.5-11.0) K/mm3 RBC 3.13 L (3.65-5.03) M/mm3 Hgb 7.9 L (10.1-14.3) gm/dl Hct 24.6 L (30.3-42.9) % MCH 25 L (28-32) pg RDW 18.9 H (13.2-15.2) % Plt Count 132 L (140-440) K/mm3 Seg Neuts % (Manual) 75.0 H (40.0-70.0) % Lymphocytes % (Manual) 5.0 L (13.4-35.0) % Nucleated RBC % 26.0 H (0.0-0.9) % Seg Neutrophils # Man 24.0 H (1.8-7.7) K/mm3 Monocytes # (Manual) 1.0 H (0.0-0.8) K/mm3 Eosinophils # (Manual) 1.0 H (0.0-0.4) K/mm3 POC ABG pH (7.35-7.45) POC ABG pCO2 (35-45) POC ABG pO2 (80-105) Sodium (137-145) mmol/L Chloride (98-107) mmol/L BUN (7-17) mg/dL Creatinine (0.7-1.2) mg/dL Glucose (65-100) mg/dL POC Glucose 121 H 145 H (70-105) Urine WBC (Auto) (0.0-6.0) /HPF Urine Creatinine (0.1-20.0) mg/dL Urine Total Protein (5-11.8) mg/dL 10/03/16 10/03/16 10/03/16 Range/Units 08:17 09:26 11:34 WBC (4.5-11.0) K/mm3 RBC (3.65-5.03) M/mm3 Hgb (10.1-14.3) gm/dl Hct (30.3-42.9) % MCH (28-32) pg RDW (13.2-15.2) % Plt Count (140-440) K/mm3 Seg Neuts % (Manual) (40.0-70.0) % Lymphocytes % (Manual) (13.4-35.0) % Nucleated RBC % (0.0-0.9) % Seg Neutrophils # Man (1.8-7.7) K/mm3 Monocytes # (Manual) (0.0-0.8) K/mm3 Eosinophils # (Manual) (0.0-0.4) K/mm3 POC ABG pH 7.274 L (7.35-7.45) POC ABG pCO2 59.7 H (35-45) POC ABG pO2 58 L (80-105) Sodium 147 H (137-145) mmol/L Chloride 107.6 H (98-107) mmol/L BUN 31 H (7-17) mg/dL Creatinine 1.7 H (0.7-1.2) mg/dL Glucose 118 H (65-100) mg/dL POC Glucose 142 H (70-105) Urine WBC (Auto) (0.0-6.0) /HPF Urine Creatinine (0.1-20.0) mg/dL Urine Total Protein (5-11.8) mg/dL 10/03/16 10/03/16 10/03/16 Range/Units 15:54 15:54 16:58 WBC (4.5-11.0) K/mm3 RBC (3.65-5.03) M/mm3 Hgb (10.1-14.3) gm/dl Hct (30.3-42.9) % MCH (28-32) pg RDW (13.2-15.2) % Plt Count (140-440) K/mm3 Seg Neuts % (Manual) (40.0-70.0) % Lymphocytes % (Manual) (13.4-35.0) % Nucleated RBC % (0.0-0.9) % Seg Neutrophils # Man (1.8-7.7) K/mm3 Monocytes # (Manual) (0.0-0.8) K/mm3 Eosinophils # (Manual) (0.0-0.4) K/mm3 POC ABG pH (7.35-7.45) POC ABG pCO2 (35-45) POC ABG pO2 (80-105) Sodium (137-145) mmol/L Chloride (98-107) mmol/L BUN (7-17) mg/dL Creatinine (0.7-1.2) mg/dL Glucose (65-100) mg/dL POC Glucose 138 H (70-105) Urine WBC (Auto) 21.0 H (0.0-6.0) /HPF Urine Creatinine 63.2 H (0.1-20.0) mg/dL Urine Total Protein 67 H (5-11.8) mg/dL
[2016-10-03] MEDS ORDERED: SODIUM BICARBONATE FEEDTUBE PRN (18:55)
[2016-10-03] MEDS ORDERED: PANCREAZE DR 10,500 UNIT FEEDTUBE PRN (18:55)
[2016-10-03] MEDS ORDERED: SIMPLE SYRUP FEEDTUBE PRN ×2 (18:55)
--- NOTE | 2016-10-03 19:28 | Consultation ---
History of Present Illness - Reason for Consult Consult date: 10/03/16 - History of Present Illness Patient seen/examined, labs reviewed, no family at the bed side. She is still heavily sedated, an saturation better. Past History Past Medical History: anemia (sickle cell anemia) Social history: no significant social history Family history: no significant family history Medications and Allergies Allergies Allergy/AdvReac Type Severity Reaction Status Date / Time No Known Allergies Allergy Unverified 10/13/13 13:21 Home Medications Medication Instructions Recorded Confirmed Last Taken Type Folic Acid [Folvite] 1 mg PO QDAY 10/13/13 09/18/16 09/18/16 History oxyCODONE /ACETAMINOPHEN [Percocet 1 tab PO Q6HR PRN #10 tablet 10/13/1309/18/16 Rx 5/325 mg] Promethazine [Phenergan] 25 mg PO Q6H PRN 08/16/14 09/18/16 09/18/16 History valACYclovir [Valtrex] 500 mg PO DAILY 08/16/14 09/18/16 09/18/16 History Active Meds: Active Medications Acetaminophen (Tylenol) 650 mg PO Q4H PRN PRN Reason: Pain MILD(1-3)/Fever >100.5/PALACIOS Last Admin: 10/02/16 20:06 Dose: 650 mg Albuterol/Ipratropium (Duoneb 0.5 Mg-3 Mg/3 Ml Soln) 1 ampul IH Q6HRT [facility] Last Admin: 10/03/16 17:07 Dose: 1 ampul Lipase/Protease/Amylase (Fritz Mayers 10,500 Unit) 1 each FEEDTUBE PRN PRN PRN Reason: For Clogged Feeding Tube Arformoterol Tartrate (Brovana Nebu) 15 mcg IH Q12HRT [facility] Last Admin: 10/03/16 09:36 Dose: 15 mcg Aspirin (Aspirin) 325 mg PO QDAY [facility] Budesonide (Pulmicort) 0.5 mg IH Q12HRT [facility] Last Admin: 10/03/16 09:36 Dose: 0.5 mg Celecoxib (Celebrex) 100 mg PO BID [facility] Last Admin: 10/03/16 10:06 Dose: 100 mg Diphenhydramine HCl (Benadryl) 12.5 mg IV Q4H PRN PRN Reason: Itching Last Admin: 09/30/16 07:02 Dose: 12.5 mg Enoxaparin Sodium (Lovenox) 40 mg SUB-Q QDAY [facility] Last Admin: 10/03/16 10:04 Dose: 40 mg Famotidine (Pepcid) 20 mg PO BID [facility] Last Admin: 10/03/16 10:05 Dose: 20 mg Folic Acid (Folvite) 1 mg PO QDAY [facility] Last Admin: 10/03/16 10:04 Dose: 1 mg Hydrophilic Ointment (Vaseline Lip Therapy) 1 applic TP Q2HR PRN PRN Reason: Dry Lips Fentanyl Citrate (Fentanyl Drip Premix) 2,000 mcg in 100 mls @ 4.649 mls/hr IV TITR SADAF; 1 MCG/KG/HR PRN Reason: Protocol Last Admin: 10/03/16 18:13 Dose: 1 mcg/kg/hr, 4.649 mls/hr Propofol (Diprivan 10 Mg/Ml) 1,000 mg in 100 mls @ 2.79 mls/hr IV TITR SADAF; 5 MCG/KG/MIN PRN Reason: Protocol Midazolam HCl 100 mg/ Sodium (Chloride) 100 mls @ 2 mls/hr IV TITR SADAF; 2 MG/HR PRN Reason: Protocol Last Admin: 10/03/16 09:59 Dose: 2 mg/hr, 2 mls/hr Vancomycin HCl 1,250 mg/ (Sodium Chloride) 275 mls @ 166.667 mls/hr IV Q8H [facility] Last Admin: 10/03/16 11:23 Dose: 166.667 mls/hr Cefepime HCl (Maxipime/Ns 1 Gm/100 Ml) 1 gm in 100 mls @ 200 mls/hr IV Q8HR SADAF PRN Reason: Protocol Last Admin: 10/03/16 13:51 Dose: 200 mls/hr Sodium Chloride (Nacl 0.45% 1000 Ml) 1,000 mls @ 50 mls/hr IV DIRECT [facility] Last Admin: 10/03/16 16:44 Dose: 50 mls/hr Insulin Human Regular (Novolin R) 0 units SUB-Q Q6HR SADAF PRN Reason: Protocol Last Admin: 10/03/16 18:49 Dose: Not Given Multi-Ingred Cream/Lotion/Oil/Oint (Artificial Tears Ophth Oint) 1 applic OU Q4HR PRN PRN Reason: Dry Eye(s) Multivitamins (Theragran Tab) 1 each PO QDAY [facility] Last Admin: 10/03/16 10:05 Dose: 1 each Ondansetron HCl (Zofran) 4 mg IV Q8H PRN PRN Reason: Nausea And Vomiting Last Admin: 09/29/16 23:07 Dose: 4 mg Promethazine HCl (Phenergan) 25 mg ME Q6H PRN PRN Reason: Nausea And Vomiting Last Admin: 09/25/16 22:05 Dose: 25 mg Senna (Senokot) 17.2 mg PO DAILY [facility] Last Admin: 10/03/16 10:05 Dose: 17.2 mg Simple Syrup (Simple Syrup) 15 ml FEEDTUBE PRN PRN PRN Reason: Hypoglycemia Simple Syrup (Simple Syrup) 30 ml FEEDTUBE PRN PRN PRN Reason: Hypoglycemia Sodium Bicarbonate (Sodium Bicarbonate) 325 mg FEEDTUBE PRN PRN PRN Reason: For Clogged Feeding Tube Sodium Chloride (Sodium Chloride Flush Syringe 10 Ml) 10 ml IV PRN PRN PRN Reason: LINE FLUSH Tramadol HCl (Ultram) 50 mg PO Q4H PRN PRN Reason: Pain, Moderate (4-6) Last Admin: 09/26/16 20:45 Dose: 50 mg Valacyclovir HCl (Valtrex) 500 mg PO DAILY [facility] Last Admin: 10/03/16 10:06 Dose: 500 mg Vancomycin HCl (Vancomycin Pharmacy To Dose) 1 each IV PKCONSULT [facility] PRN Reason: Protocol Zolpidem Tartrate (Ambien) 5 mg PO QHS PRN PRN Reason: Sleep Review of Systems Constitutional: other (on the vent.) Breasts: deferred Respiratory: other (on the vent.) Exam - Constitutional Vitals: Temp Pulse Resp BP Pulse Ox 97.6 F 88 36 H 134/65 92 10/03/16 17:37 10/03/16 18:20 10/03/16 18:20 10/03/16 18:20 10/03/16 18:20 General appearance: Present: severe distress, well-nourished - EENT Eyes: Present: PERRL ENT: hearing intact, clear oral mucosa - Neck Neck: Present: supple, normal ROM - Respiratory Respiratory: bilateral: other (on the vent.) - Cardiovascular Heart Sounds: Present: S1 & S2. Absent: rub, click - Extremities Extremities: pulses symmetrical, No edema Peripheral Pulses: within normal limits - Abdominal General gastrointestinal: Present: soft, non-tender, non-distended, normal bowel sounds Female genitourinary: Present: deferred - Rectal Rectal Exam: deferred - Integumentary Integumentary: Present: clear, warm, dry - Psychiatric Psychiatric: other (full vent support/sedated.) Results - Labs CBC & Chem 7: 10/03/16 08:17 10/03/16 08:17 Labs: Abnormal lab results 10/02/16 10/02/16 10/02/16 Range/Units 05:40 11:42 21:52 WBC (4.5-11.0) K/mm3 RBC (3.65-5.03) M/mm3 Hgb (10.1-14.3) gm/dl Hct (30.3-42.9) % MCH (28-32) pg RDW (13.2-15.2) % Plt Count (140-440) K/mm3 Seg Neuts % (Manual) (40.0-70.0) % Lymphocytes % (Manual) (13.4-35.0) % Nucleated RBC % (0.0-0.9) % Seg Neutrophils # Man (1.8-7.7) K/mm3 Monocytes # (Manual) (0.0-0.8) K/mm3 Eosinophils # (Manual) (0.0-0.4) K/mm3 POC ABG pH 7.324 L (7.35-7.45) POC ABG pCO2 60.5 H (35-45) POC ABG pO2 74 L (80-105) Sodium (137-145) mmol/L Chloride (98-107) mmol/L BUN (7-17) mg/dL Creatinine (0.7-1.2) mg/dL Glucose (65-100) mg/dL POC Glucose 123 H 135 H (70-105) Urine WBC (Auto) (0.0-6.0) /HPF Urine Creatinine (0.1-20.0) mg/dL Urine Total Protein (5-11.8) mg/dL 05/08/1610/03/16 10/03/16 Range/Units 23:26 05:55 08:17 WBC 32.0 H (4.5-11.0) K/mm3 RBC 3.13 L (3.65-5.03) M/mm3 Hgb 7.9 L (10.1-14.3) gm/dl Hct 24.6 L (30.3-42.9) % MCH 25 L (28-32) pg RDW 18.9 H (13.2-15.2) % Plt Count 132 L (140-440) K/mm3 Seg Neuts % (Manual) 75.0 H (40.0-70.0) % Lymphocytes % (Manual) 5.0 L (13.4-35.0) % Nucleated RBC % 26.0 H (0.0-0.9) % Seg Neutrophils # Man 24.0 H (1.8-7.7) K/mm3 Monocytes # (Manual) 1.0 H (0.0-0.8) K/mm3 Eosinophils # (Manual) 1.0 H (0.0-0.4) K/mm3 POC ABG pH (7.35-7.45) POC ABG pCO2 (35-45) POC ABG pO2 (80-105) Sodium (137-145) mmol/L Chloride (98-107) mmol/L BUN (7-17) mg/dL Creatinine (0.7-1.2) mg/dL Glucose (65-100) mg/dL POC Glucose 121 H 145 H (70-105) Urine WBC (Auto) (0.0-6.0) /HPF Urine Creatinine (0.1-20.0) mg/dL Urine Total Protein (5-11.8) mg/dL 10/03/16 10/03/16 10/03/16 Range/Units 08:17 09:26 11:34 WBC (4.5-11.0) K/mm3 RBC (3.65-5.03) M/mm3 Hgb (10.1-14.3) gm/dl Hct (30.3-42.9) % MCH (28-32) pg RDW (13.2-15.2) % Plt Count (140-440) K/mm3 Seg Neuts % (Manual) (40.0-70.0) % Lymphocytes % (Manual) (13.4-35.0) % Nucleated RBC % (0.0-0.9) % Seg Neutrophils # Man (1.8-7.7) K/mm3 Monocytes # (Manual) (0.0-0.8) K/mm3 Eosinophils # (Manual) (0.0-0.4) K/mm3 POC ABG pH 7.274 L (7.35-7.45) POC ABG pCO2 59.7 H (35-45) POC ABG pO2 58 L (80-105) Sodium 147 H (137-145) mmol/L Chloride 107.6 H (98-107) mmol/L BUN 31 H (7-17) mg/dL Creatinine 1.7 H (0.7-1.2) mg/dL Glucose 118 H (65-100) mg/dL POC Glucose 142 H (70-105) Urine WBC (Auto) (0.0-6.0) /HPF Urine Creatinine (0.1-20.0) mg/dL Urine Total Protein (5-11.8) mg/dL 10/03/16 10/03/16 10/03/16 Range/Units 15:54 15:54 16:58 WBC (4.5-11.0) K/mm3 RBC (3.65-5.03) M/mm3 Hgb (10.1-14.3) gm/dl Hct (30.3-42.9) % MCH (28-32) pg RDW (13.2-15.2) % Plt Count (140-440) K/mm3 Seg Neuts % (Manual) (40.0-70.0) % Lymphocytes % (Manual) (13.4-35.0) % Nucleated RBC % (0.0-0.9) % Seg Neutrophils # Man (1.8-7.7) K/mm3 Monocytes # (Manual) (0.0-0.8) K/mm3 Eosinophils # (Manual) (0.0-0.4) K/mm3 POC ABG pH (7.35-7.45) POC ABG pCO2 (35-45) POC ABG pO2 (80-105) Sodium (137-145) mmol/L Chloride (98-107) mmol/L BUN (7-17) mg/dL Creatinine (0.7-1.2) mg/dL Glucose (65-100) mg/dL POC Glucose 138 H (70-105) Urine WBC (Auto) 21.0 H (0.0-6.0) /HPF Urine Creatinine 63.2 H (0.1-20.0) mg/dL Urine Total Protein 67 H (5-11.8) mg/dL Assessment and Plan - Patient Problems (1) Arthritis of left hip Current Visit: Yes Status: Deleted Plan to address problem: Follow post surgical management. (2) Avascular necrosis of bone of left hip Current Visit: Yes Status: Chronic Plan to address problem: Post surgical pain management., post surgical anticoagulation. (3) Sepsis Current Visit: Yes Status: Acute Qualifiers: Sepsis type: sepsis due to unspecified organism Qualified Code(s): A41.9 - Sepsis, unspecified organism Plan to address problem: SEE w/up in the notes. No improvement so far. (4) Sleep apnea syndrome Current Visit: Yes Status: Acute Qualifiers: Sleep apnea type: S Plan to address problem: oxygen/BIPAP management. Patient now in full resp failure, and on the vent. (5) UTI (urinary tract infection) Current Visit: Yes Status: Acute Qualifiers: Urinary tract infection type: U Hematuria presence: H Indwelling urinary catheter type: I Encounter type: E Plan to address problem: patient already on abx iv. may need culture sent. (6) Anemia Current Visit: Yes Status: Acute Qualifiers: Anemia type: A Iron deficiency anemia type: I Vitamin B12 deficiency anemia type: V Folate deficiency anemia type: F Bone marrow failure anemia type: B Hemolytic anemia type: H Other causes of anemia: O Plan to address problem: will transfuse if hgb 7.5 or less.
[2016-10-03 21:50] LABS: ISTAT Base Excess 2; ISTAT HCO3 28.4; ISTAT PCO2 61.7 (35-45); ISTAT PH 7.271 (7.35-7.45); ISTAT PO2 77 (80-105); ISTAT SO2 93; ISTAT TCO2 30
[2016-10-04] MEDS: DUONEB 0.5 MG-3 MG/3 ML SOLN IH SCH ×3 (03:28→20:04)
[2016-10-04 04:38] LABS: Hematocrit 22.6 % (30.3-42.9); Hemoglobin 7.3 gm/dl (10.1-14.3); Mean Corpuscular HGB Conc 32 % (30-34); Mean Corpuscular Volume 79 fl (79-97); Platelet Count 125 K/mm3 (140-440); Red Blood Count 2.86 M/mm3 (3.65-5.03); Red Cell Distribution Width 19.6 % (13.2-15.2)
[2016-10-04 04:42] LABS: Mean Corpuscular Hemoglobin 25 pg (28-32); White Blood Count 30.3 K/mm3 (4.5-11.0)
[2016-10-04 05:06] LABS: Albumin 2.1 g/dL (3.9-5); Albumin/Globulin Ratio 0.6 %; BUN/Creatinine Ratio 23.52; Bilirubin,Total 1.2 mg/dL (0.1-1.2); Calcium 8.5 mg/dL (8.4-10.2); Chloride 105.3 mmol/L (98-107); Phosphorous 3.6 mg/dL (2.5-4.5); Potassium 4.6 mmol/L (3.6-5.0); Total Protein 5.6 g/dL (6.3-8.2)
[2016-10-04] MEDS: MAXIPIME/NS 1 GM/100 ML 1 GM/100 ML BAG IV SCH ×3 (06:13→22:50)
[2016-10-04] MEDS: VANCOMYCIN 1,250 MG in NACL 0.9% 250ML 250 ML IV SCH ×3 (06:15→12:53)
[2016-10-04 06:29] LABS: ISTAT Base Excess 0; ISTAT HCO3 27.2; ISTAT PCO2 62.3 (35-45); ISTAT PH 7.248 (7.35-7.45); ISTAT PO2 59 (80-105); ISTAT SO2 85; ISTAT TCO2 29
[2016-10-04 06:50] LABS: Basophils % (Manual) 0 % (0.0-1.8); Blastocytes % (Manual) 0 %
[2016-10-04 06:51] LABS: Anisocytosis 2+; Elliptocytes Few; Giant Platelets Rare; Hypochromasia 2+; Polychromasia 1+; Target Cells Few
[2016-10-04 06:52] LABS: Diff Status Complete; Platelet Estimate Consistent w Auto
[2016-10-04] MEDS: BROVANA NEBU IH SCH ×2 (07:11→20:04)
[2016-10-04] MEDS: PULMICORT IH SCH ×2 (07:11→20:04)
--- NOTE | 2016-10-04 07:34 | XRay Report ---
Single view chest: Compared to 10/03/16. History: Followup of respiratory failure. Findings: Normal cardiomediastinal silhouette. Stable support system. Bilateral diffuse airspace opacities without significant interval change. Impression: No significant interval change.
[2016-10-04] MEDS: FOLVITE PO SCH (09:52)
[2016-10-04] MEDS: LOVENOX SUB-Q SCH (09:52)
[2016-10-04] MEDS: THERAGRAN Tab PO SCH (09:52)
[2016-10-04] MEDS: SENOKOT PO SCH (09:52)
[2016-10-04] MEDS: PEPCID PO SCH ×2 (09:52→22:50)
[2016-10-04] MEDS: ASPIRIN PO SCH (09:53)
[2016-10-04] MEDS: VALTREX PO SCH (09:53)
--- NOTE | 2016-10-04 10:06 | Progress Note ---
Assessment and Plan - Patient Problems (1) Sepsis Current Visit: Yes Status: Acute Qualifiers: Sepsis type: sepsis due to unspecified organism Qualified Code(s): A41.9 - Sepsis, unspecified organism Plan to address problem: Question bacterial vs. viral vs. edema etiology of pulmonary infiltrates. CT chest/ abdomen/pelvis requested. Await findings. Continue current broad antimicrobials for now with the addition of Flagyl. A marked leukocytosis can often precede Cdiff-related diarrhea. Check Vancomycin level. (2) Acute respiratory failure with hypoxia Current Visit: Yes Status: Acute Plan to address problem: Per above re: broad antimicrobials. Tracheal aspirate showed no growth, but patient was already receiving broad abx. Viral culture is pending. Diuresis,e tc. 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 (3) Acute renal failure due to tubular necrosis Current Visit: Yes Status: Acute Plan to address problem: Renally adjusting antimicrobials. Subjective Date of service: 10/04/16 Principal diagnosis: Acute Hypoxemic Respiratory Failure; ARDS Interval history: Patient remains in ICU, intubated though afebrile in past 24 hours. Marked leukocytosis. There are no new localizing issues. Objective - Constitutional Vitals: Vital Signs Temp Pulse Resp BP Pulse Ox 97.2 F L 68 30 H 86/51 100 10/04/16 08:09 10/04/16 09:00 10/04/16 09:00 10/04/16 09:00 10/04/16 09:00 Temperature -Last 24 Hours Temperature 97.2 F Temperature 98 F Temperature 98.1 F Temperature 98.6 F Temperature 97.6 F Temperature 97.5 F Temperature 98.3 F General appearance: Present: obese - EENT Eyes: no discharge ENT: other (NG and ET tubes in place, no oral lesions) - Respiratory Respiratory: bilateral: CTA (auscultated anteriorly), negative: rales, rhonchi, wheezing - Cardiovascular Rhythm: regular Heart Sounds: Present: S1 & S2 Extremities: No edema (left thigh incision is well-healing) - Gastrointestinal General gastrointestinal: Present: soft, non-distended, normal bowel sounds - Genitourinary Female genitourinary: normal, other (Montes with slightly turbid urine) - Integumentary Integumentary: no rash - Labs CBC & Chem 7: 10/04/16 04:00 10/04/16 04:03 Labs: Abnormal lab results 10/03/16 10/03/16 10/03/16 Range/Units 08:17 09:26 11:34 WBC (4.5-11.0) K/mm3 RBC (3.65-5.03) M/mm3 Hgb (10.1-14.3) gm/dl Hct (30.3-42.9) % MCH (28-32) pg RDW (13.2-15.2) % Plt Count (140-440) K/mm3 Seg Neuts % (Manual) 75.0 H (40.0-70.0) % Lymphocytes % (Manual) 5.0 L (13.4-35.0) % Eosinophils % (Manual) (0.0-4.3) % Nucleated RBC % 26.0 H (0.0-0.9) % Seg Neutrophils # Man 24.0 H (1.8-7.7) K/mm3 Monocytes # (Manual) 1.0 H (0.0-0.8) K/mm3 Eosinophils # (Manual) 1.0 H (0.0-0.4) K/mm3 POC ABG pH 7.274 L (7.35-7.45) POC ABG pCO2 59.7 H (35-45) POC ABG pO2 58 L (80-105) BUN (7-17) mg/dL Creatinine (0.7-1.2) mg/dL Glucose (65-100) mg/dL POC Glucose 142 H (70-105) Total Protein (6.3-8.2) g/dL Albumin (3.9-5) g/dL Urine WBC (Auto) (0.0-6.0) /HPF Urine Creatinine (0.1-20.0) mg/dL Urine Total Protein (5-11.8) mg/dL 10/03/16 10/03/16 10/03/16 Range/Units 15:54 15:54 16:58 WBC (4.5-11.0) K/mm3 RBC (3.65-5.03) M/mm3 Hgb (10.1-14.3) gm/dl Hct (30.3-42.9) % MCH (28-32) pg RDW (13.2-15.2) % Plt Count (140-440) K/mm3 Seg Neuts % (Manual) (40.0-70.0) % Lymphocytes % (Manual) (13.4-35.0) % Eosinophils % (Manual) (0.0-4.3) % Nucleated RBC % (0.0-0.9) % Seg Neutrophils # Man (1.8-7.7) K/mm3 Monocytes # (Manual) (0.0-0.8) K/mm3 Eosinophils # (Manual) (0.0-0.4) K/mm3 POC ABG pH (7.35-7.45) POC ABG pCO2 (35-45) POC ABG pO2 (80-105) BUN (7-17) mg/dL Creatinine (0.7-1.2) mg/dL Glucose (65-100) mg/dL POC Glucose 138 H (70-105) Total Protein (6.3-8.2) g/dL Albumin (3.9-5) g/dL Urine WBC (Auto) 21.0 H (0.0-6.0) /HPF Urine Creatinine 63.2 H (0.1-20.0) mg/dL Urine Total Protein 67 H (5-11.8) mg/dL 10/03/16 10/03/16 10/04/16 Range/Units 21:37 23:44 04:00 WBC 30.3 H (4.5-11.0) K/mm3 RBC 2.86 L (3.65-5.03) M/mm3 Hgb 7.3 L (10.1-14.3) gm/dl Hct 22.6 L (30.3-42.9) % MCH 25 L (28-32) pg RDW 19.6 H (13.2-15.2) % Plt Count 125 L (140-440) K/mm3 Seg Neuts % (Manual) (40.0-70.0) % Lymphocytes % (Manual) 12.0 L (13.4-35.0) % Eosinophils % (Manual) 5.0 H (0.0-4.3) % Nucleated RBC % 30.0 H (0.0-0.9) % Seg Neutrophils # Man 12.7 H (1.8-7.7) K/mm3 Monocytes # (Manual) 1.2 H (0.0-0.8) K/mm3 Eosinophils # (Manual) 1.5 H (0.0-0.4) K/mm3 POC ABG pH 7.271 L (7.35-7.45) POC ABG pCO2 61.7 H (35-45) POC ABG pO2 77 L (80-105) BUN (7-17) mg/dL Creatinine (0.7-1.2) mg/dL Glucose (65-100) mg/dL POC Glucose 130 H (70-105) Total Protein (6.3-8.2) g/dL Albumin (3.9-5) g/dL Urine WBC (Auto) (0.0-6.0) /HPF Urine Creatinine (0.1-20.0) mg/dL Urine Total Protein (5-11.8) mg/dL 10/04/16 10/04/16 Range/Units 04:03 06:02 WBC (4.5-11.0) K/mm3 RBC (3.65-5.03) M/mm3 Hgb (10.1-14.3) gm/dl Hct (30.3-42.9) % MCH (28-32) pg RDW (13.2-15.2) % Plt Count (140-440) K/mm3 Seg Neuts % (Manual) (40.0-70.0) % Lymphocytes % (Manual) (13.4-35.0) % Eosinophils % (Manual) (0.0-4.3) % Nucleated RBC % (0.0-0.9) % Seg Neutrophils # Man (1.8-7.7) K/mm3 Monocytes # (Manual) (0.0-0.8) K/mm3 Eosinophils # (Manual) (0.0-0.4) K/mm3 POC ABG pH 7.248 L (7.35-7.45) POC ABG pCO2 62.3 H (35-45) POC ABG pO2 59 L (80-105) BUN 40 H (7-17) mg/dL Creatinine 1.7 H (0.7-1.2) mg/dL Glucose 110 H (65-100) mg/dL POC Glucose (70-105) Total Protein 5.6 L (6.3-8.2) g/dL Albumin 2.1 L (3.9-5) g/dL Urine WBC (Auto) (0.0-6.0) /HPF Urine Creatinine (0.1-20.0) mg/dL Urine Total Protein (5-11.8) mg/dL Microbiology 10/03/16 09:20 Peripheral/Venous Blood Culture - Preliminary NO GROWTH AFTER 24 HOURS 10/03/16 09:30 Picc Blood Culture - Preliminary NO GROWTH AFTER 24 HOURS 09/27/16 22:47 Peripheral/Venous Blood Culture - Final NO GROWTH AFTER 5 DAYS 09/27/16 22:47 Peripheral/Venous Blood Culture - Final NO GROWTH AFTER 5 DAYS 09/27/16 15:06 Peripheral/Venous Blood Culture - Final NO GROWTH AFTER 5 DAYS 09/27/16 14:40 Peripheral/Venous Blood Culture - Final NO GROWTH AFTER 5 DAYS 09/30/16 Unknown Tracheal Aspirate Sputum Culture - Final - Imaging and cardiology Chest x-ray: report reviewed (unchanged bilateral diffuse airspace opacities)
[2016-10-04] MEDS ORDERED: SIMPLE SYRUP FEEDTUBE PRN ×2 (10:11)
[2016-10-04] MEDS ORDERED: SODIUM BICARBONATE FEEDTUBE PRN (10:11)
[2016-10-04] MEDS ORDERED: PANCREAZE DR 10,500 UNIT FEEDTUBE PRN (10:11)
--- NOTE | 2016-10-04 10:11 | Progress Note ---
Assessment and Plan 1) Avascular necrosis of bone of left hip Current Visit: Yes Status: Chronic Plan to address problem: S/P Athroplasty to left hip on 09/25/16 (2) Acute respiratory failure with hypoxia Current Visit: Yes Status: Acute Plan to address problem: ARDS, On vent support as per pulmonary (3) Acute renal failure due to tubular necrosis Current Visit: Yes Status: Acute Plan to address problem: Acute Renal Failure secondary to Ischemic ATN secondary to Sepsis Syndrome Cr is stable from yesterday, non oliguric. no indication for [employer] renal US is pending NS 50 cc/h Avoid Nephrotoxic agents Renally dose medications Monitor I/O's (4) Sepsis syndrome Current Visit: Yes Status: Acute Plan to address problem: ID on board. On IV Cefepime (5) Acute hypernatremia Current Visit: Yes Status: Acute Plan to address problem: Hypernatremia- Free water flushes 200 ml every 4 hours, will adjust as needed Subjective Date of service: 10/04/16 Principal diagnosis: Acute Hypoxemic Respiratory Failure; ARDS Interval history: patient is intubated and sedated, no family at bedside Objective - Vital Signs Vital signs: Vital Signs - 12hr 10/03/16 10/03/16 10/03/16 22:20 22:30 22:40 Temperature Pulse Rate 89 88 86 Pulse Rate [ Anterior Bilateral Throughout] Pulse Rate [ Bilateral Bases ] Respiratory 32 H 36 H 34 H Rate Respiratory Rate [Anterior Bilateral Throughout] Respiratory Rate [Bilateral Bases] Blood Pressure 134/65 134/65 134/65 O2 Sat by Pulse 88 86 88 Oximetry 10/03/16 10/03/16 10/03/16 22:50 23:00 23:10 Temperature Pulse Rate 88 96 H 89 Pulse Rate [ Anterior Bilateral Throughout] Pulse Rate [ Bilateral Bases ] Respiratory 36 H 18 18 Rate Respiratory Rate [Anterior Bilateral Throughout] Respiratory Rate [Bilateral Bases] Blood Pressure 134/65 134/65 134/65 O2 Sat by Pulse 86 83 L 89 Oximetry 10/03/16 10/03/16 10/03/16 23:20 23:30 23:40 Temperature Pulse Rate 90 91 H 91 H Pulse Rate [ Anterior Bilateral Throughout] Pulse Rate [ Bilateral Bases ] Respiratory 19 17 20 Rate Respiratory Rate [Anterior Bilateral Throughout] Respiratory Rate [Bilateral Bases] Blood Pressure 134/65 134/65 134/65 O2 Sat by Pulse 90 92 93 Oximetry 10/03/16 10/04/16 10/04/16 23:50 00:00 00:10 Temperature 98.1 F Pulse Rate 92 H 93 H 89 Pulse Rate [ Anterior Bilateral Throughout] Pulse Rate [ Bilateral Bases ] Respiratory 20 20 18 Rate Respiratory Rate [Anterior Bilateral Throughout] Respiratory Rate [Bilateral Bases] Blood Pressure 134/65 134/65 134/65 O2 Sat by Pulse 92 89 89 Oximetry 10/04/16 10/04/16 10/04/16 00:15 00:20 00:30 Temperature Pulse Rate 86 86 86 Pulse Rate [ Anterior Bilateral Throughout] Pulse Rate [ Bilateral Bases ] Respiratory 18 18 Rate Respiratory Rate [Anterior Bilateral Throughout] Respiratory Rate [Bilateral Bases] Blood Pressure 101/62 101/62 109/58 O2 Sat by Pulse 86 90 89 Oximetry 10/04/16 10/04/16 10/04/16 00:40 00:50 01:00 Temperature Pulse Rate 85 85 85 Pulse Rate [ Anterior Bilateral Throughout] Pulse Rate [ Bilateral Bases ] Respiratory 19 19 20 Rate Respiratory Rate [Anterior Bilateral Throughout] Respiratory Rate [Bilateral Bases] Blood Pressure 109/58 109/58 108/57 O2 Sat by Pulse 91 90 89 Oximetry 10/04/16 10/04/16 10/04/16 01:10 01:20 01:30 Temperature Pulse Rate 85 87 90 Pulse Rate [ Anterior Bilateral Throughout] Pulse Rate [ Bilateral Bases ] Respiratory 17 19 23 Rate Respiratory Rate [Anterior Bilateral Throughout] Respiratory Rate [Bilateral Bases] Blood Pressure 108/57 108/57 100/55 O2 Sat by Pulse 90 90 90 Oximetry 10/04/16 10/04/16 10/04/16 01:40 01:50 02:00 Temperature Pulse Rate 89 88 86 Pulse Rate [ Anterior Bilateral Throughout] Pulse Rate [ Bilateral Bases ] Respiratory 26 H 26 H 17 Rate Respiratory Rate [Anterior Bilateral Throughout] Respiratory Rate [Bilateral Bases] Blood Pressure 100/55 100/55 86/53 O2 Sat by Pulse 90 90 89 Oximetry 10/04/16 10/04/16 10/04/16 02:10 02:20 02:30 Temperature Pulse Rate 94 H 90 88 Pulse Rate [ Anterior Bilateral Throughout] Pulse Rate [ Bilateral Bases ] Respiratory 26 H 22 18 Rate Respiratory Rate [Anterior Bilateral Throughout] Respiratory Rate [Bilateral Bases] Blood Pressure 110/57 110/57 118/61 O2 Sat by Pulse 80 L 88 87 Oximetry 10/04/16 10/04/16 10/04/16 02:40 02:50 03:00 Temperature Pulse Rate 89 86 85 Pulse Rate [ Anterior Bilateral Throughout] Pulse Rate [ Bilateral Bases ] Respiratory 18 20 18 Rate Respiratory Rate [Anterior Bilateral Throughout] Respiratory Rate [Bilateral Bases] Blood Pressure 118/61 118/61 113/63 O2 Sat by Pulse 90 91 87 Oximetry 10/04/16 10/04/16 10/04/16 03:10 03:20 03:28 Temperature Pulse Rate 85 84 Pulse Rate [ Anterior Bilateral Throughout] Pulse Rate [ 84 Bilateral Bases ] Respiratory 19 18 Rate Respiratory Rate [Anterior Bilateral Throughout] Respiratory 22 Rate [Bilateral Bases] Blood Pressure 113/63 113/63 O2 Sat by Pulse 92 91 Oximetry 10/04/16 10/04/16 10/04/16 03:30 03:38 03:40 Temperature Pulse Rate 79 83 Pulse Rate [ Anterior Bilateral Throughout] Pulse Rate [ 86 Bilateral Bases ] Respiratory 30 H 21 Rate Respiratory Rate [Anterior Bilateral Throughout] Respiratory 22 Rate [Bilateral Bases] Blood Pressure 105/55 105/55 O2 Sat by Pulse 96 93 Oximetry 10/04/16 10/04/16 10/04/16 03:50 04:00 04:10 Temperature 98 F Pulse Rate 86 86 91 H Pulse Rate [ Anterior Bilateral Throughout] Pulse Rate [ Bilateral Bases ] Respiratory 19 22 17 Rate Respiratory Rate [Anterior Bilateral Throughout] Respiratory Rate [Bilateral Bases] Blood Pressure 105/55 110/67 110/67 O2 Sat by Pulse 92 87 90 Oximetry 10/04/16 10/04/16 10/04/16 04:20 04:30 04:40 Temperature Pulse Rate 88 87 Pulse Rate [ Anterior Bilateral Throughout] Pulse Rate [ Bilateral Bases ] Respiratory 18 20 29 H Rate Respiratory Rate [Anterior Bilateral Throughout] Respiratory Rate [Bilateral Bases] Blood Pressure 110/67 116/56 116/56 O2 Sat by Pulse 82 L 84 88 Oximetry 10/04/16 10/04/16 10/04/16 04:50 05:00 05:10 Temperature Pulse Rate 87 85 85 Pulse Rate [ Anterior Bilateral Throughout] Pulse Rate [ Bilateral Bases ] Respiratory 18 19 19 Rate Respiratory Rate [Anterior Bilateral Throughout] Respiratory Rate [Bilateral Bases] Blood Pressure 116/56 110/52 110/52 O2 Sat by Pulse 90 87 90 Oximetry 10/04/16 10/04/16 10/04/16 05:20 05:30 05:40 Temperature Pulse Rate 84 83 84 Pulse Rate [ Anterior Bilateral Throughout] Pulse Rate [ Bilateral Bases ] Respiratory 18 19 19 Rate Respiratory Rate [Anterior Bilateral Throughout] Respiratory Rate [Bilateral Bases] Blood Pressure 110/52 103/56 103/56 O2 Sat by Pulse 88 92 Oximetry 10/04/16 10/04/16 10/04/16 05:50 06:00 06:02 Temperature Pulse Rate 84 80 83 Pulse Rate [ Anterior Bilateral Throughout] Pulse Rate [ Bilateral Bases ] Respiratory 18 21 Rate Respiratory Rate [Anterior Bilateral Throughout] Respiratory Rate [Bilateral Bases] Blood Pressure 103/56 109/54 103/56 O2 Sat by Pulse 93 90 93 Oximetry 10/04/16 10/04/16 10/04/16 06:10 06:20 06:30 Temperature Pulse Rate 80 80 79 Pulse Rate [ Anterior Bilateral Throughout] Pulse Rate [ Bilateral Bases ] Respiratory 18 18 18 Rate Respiratory Rate [Anterior Bilateral Throughout] Respiratory Rate [Bilateral Bases] Blood Pressure 109/54 109/54 107/54 O2 Sat by Pulse 91 92 90 Oximetry 10/04/16 10/04/16 10/04/16 06:40 06:50 06:52 Temperature Pulse Rate 78 78 78 Pulse Rate [ Anterior Bilateral Throughout] Pulse Rate [ Bilateral Bases ] Respiratory 31 H 30 H Rate Respiratory Rate [Anterior Bilateral Throughout] Respiratory Rate [Bilateral Bases] Blood Pressure 107/54 107/54 107/54 O2 Sat by Pulse 95 95 95 Oximetry 10/04/16 10/04/16 10/04/16 07:00 07:10 07:11 Temperature Pulse Rate 80 77 Pulse Rate [ 77 Anterior Bilateral Throughout] Pulse Rate [ Bilateral Bases ] Respiratory 30 H 30 H Rate Respiratory 30 H Rate [Anterior Bilateral Throughout] Respiratory Rate [Bilateral Bases] Blood Pressure 103/51 103/51 O2 Sat by Pulse 88 99 Oximetry 10/04/16 10/04/16 10/04/16 07:20 07:30 07:34 Temperature Pulse Rate 70 72 Pulse Rate [ 69 Anterior Bilateral Throughout] Pulse Rate [ Bilateral Bases ] Respiratory 30 H 30 H Rate Respiratory 30 H Rate [Anterior Bilateral Throughout] Respiratory Rate [Bilateral Bases] Blood Pressure 107/54 90/46 O2 Sat by Pulse 100 99 Oximetry 10/04/16 10/04/16 10/04/16 07:39 07:40 07:50 Temperature Pulse Rate 68 69 68 Pulse Rate [ Anterior Bilateral Throughout] Pulse Rate [ Bilateral Bases ] Respiratory 30 H 30 H Rate Respiratory Rate [Anterior Bilateral Throughout] Respiratory Rate [Bilateral Bases] Blood Pressure 90/46 90/46 103/51 O2 Sat by Pulse 100 100 100 Oximetry 10/04/16 10/04/16 10/04/16 08:00 08:09 08:10 Temperature 97.2 F L Pulse Rate 68 68 Pulse Rate [ Anterior Bilateral Throughout] Pulse Rate [ Bilateral Bases ] Respiratory 18 30 H Rate Respiratory Rate [Anterior Bilateral Throughout] Respiratory Rate [Bilateral Bases] Blood Pressure 86/46 86/46 O2 Sat by Pulse 94 100 Oximetry 10/04/16 10/04/16 10/04/16 08:20 08:30 08:40 Temperature Pulse Rate 67 67 67 Pulse Rate [ Anterior Bilateral Throughout] Pulse Rate [ Bilateral Bases ] Respiratory 30 H 30 H 30 H Rate Respiratory Rate [Anterior Bilateral Throughout] Respiratory Rate [Bilateral Bases] Blood Pressure 92/50 93/49 93/49 O2 Sat by Pulse 100 100 100 Oximetry 10/04/16 10/04/16 08:50 09:00 Temperature Pulse Rate 68 68 Pulse Rate [ Anterior Bilateral Throughout] Pulse Rate [ Bilateral Bases ] Respiratory 30 H 30 H Rate Respiratory Rate [Anterior Bilateral Throughout] Respiratory Rate [Bilateral Bases] Blood Pressure 93/49 86/51 O2 Sat by Pulse 100 100 Oximetry - General Appearance General appearance: sedated on ventilator, intubated EENT: ATNC, PERRL, mucous membranes dry Neck: no JVD Respiratory: Present: Rales, Ronchi Cardiology: regular, S1S2 Gastrointestinal: normoactive bowel sounds, no tenderness, no distended, no masses Integumentary: no rash, warm and dry Neurologic: other (sedated) Musculoskeletal: other (trace pitting edema in BLE) Psychiatric: other (sedated and intubated) - Lab 10/04/16 04:00 10/04/16 04:03 Most recent lab results Calcium 8.5 mg/dL (8.4-10.2) 10/04/16 04:03 Phosphorus 3.60 mg/dL (2.5-4.5) 10/04/16 04:03 Urine Creatinine 63.2 mg/dL (0.1-20.0) H 10/03/16 15:54 Urine Sodium 20 mEq/L 10/03/16 15:54 Urine Total Protein 67 mg/dL (5-11.8) H 10/03/16 15:54
--- NOTE | 2016-10-04 10:37 | Progress Note ---
Assessment and Plan - Patient Problems (1) Acute respiratory failure with hypoxia Current Visit: Yes Status: Acute Plan to address problem: - stopped diuressis - continue ARDS ventilation / LTVV strategies keep Peep at 18 - permissive hypercapnia - continue bronchodilators and pulmonary toilet - continue aspiration precautions / VAP bundles - continue to wean oxygen for sats > 92% - serial ABG's - will switch to APRV in am if no significant improvement in oxygenation (2) ARDS (adult respiratory distress syndrome) Current Visit: Yes Status: Acute Plan to address problem: - 2D ECHO reports normal EF without impaired relaxation - etiology unclear - treating empirically as HCAP - increased Peep as above (3) Obesity Current Visit: Yes Status: Acute Qualifiers: Obesity type: O Obesity severity: O Plan to address problem: - weight loss counselled earlier - outpatient sleep clinic evaluation at discharge (4) Avascular necrosis of bone of left hip Current Visit: Yes Status: Chronic Plan to address problem: - s/p hip replacement surgery - per orthopedic surgeon otherwise - ? fat emboli syndrome (5) Sepsis syndrome Current Visit: Yes Status: Acute Plan to address problem: - continue empiric AB's - ID evaluation ongoing - anti-infectives per ID recs (6) Anemia Current Visit: Yes Status: Acute Qualifiers: Anemia type: A Iron deficiency anemia type: I Vitamin B12 deficiency anemia type: V Folate deficiency anemia type: F Bone marrow failure anemia type: B Hemolytic anemia type: H Other causes of anemia: O Plan to address problem: - multifactorial - suspect ABLA component - h/o sickle cell - prn PRBC transfusions - hematology following (7) Discharge planning issues Current Visit: Yes Status: Acute Plan to address problem: - appears may be a prolonged ICU stay .....she remains critically ill on life sustaining interventions including MVS and at risk for further deterioration including 32' CCT Subjective Date of service: 10/04/16 Principal diagnosis: Acute Hypoxemic Respiratory Failure; ARDS Interval history: Seen and examined at bedside; 24 hour events reviewed; nursing and respiratory care staff consulted; no adverse overnight events reported to me; some improvement in oxygenation overnight; remains with ARDS numbers; leucocytosis a little better; still significantly hypoxemic Objective Vital Signs - 12hr 10/03/16 10/03/16 10/03/16 22:40 22:50 23:00 Temperature Pulse Rate 86 88 96 H Pulse Rate [ Anterior Bilateral Throughout] Pulse Rate [ Bilateral Bases ] Respiratory 34 H 36 H 18 Rate Respiratory Rate [Anterior Bilateral Throughout] Respiratory Rate [Bilateral Bases] Blood Pressure 134/65 134/65 134/65 O2 Sat by Pulse 88 86 83 L Oximetry 10/03/16 10/03/16 10/03/16 23:10 23:20 23:30 Temperature Pulse Rate 89 90 91 H Pulse Rate [ Anterior Bilateral Throughout] Pulse Rate [ Bilateral Bases ] Respiratory 18 19 17 Rate Respiratory Rate [Anterior Bilateral Throughout] Respiratory Rate [Bilateral Bases] Blood Pressure 134/65 134/65 134/65 O2 Sat by Pulse 89 90 92 Oximetry 10/03/16 10/03/16 10/04/16 23:40 23:50 00:00 Temperature 98.1 F Pulse Rate 91 H 92 H 93 H Pulse Rate [ Anterior Bilateral Throughout] Pulse Rate [ Bilateral Bases ] Respiratory 20 20 20 Rate Respiratory Rate [Anterior Bilateral Throughout] Respiratory Rate [Bilateral Bases] Blood Pressure 134/65 134/65 134/65 O2 Sat by Pulse 93 92 89 Oximetry 10/04/16 10/04/16 10/04/16 00:10 00:15 00:20 Temperature Pulse Rate 89 86 86 Pulse Rate [ Anterior Bilateral Throughout] Pulse Rate [ Bilateral Bases ] Respiratory 18 18 Rate Respiratory Rate [Anterior Bilateral Throughout] Respiratory Rate [Bilateral Bases] Blood Pressure 134/65 101/62 101/62 O2 Sat by Pulse 89 86 90 Oximetry 10/04/16 10/04/16 10/04/16 00:30 00:40 00:50 Temperature Pulse Rate 86 85 85 Pulse Rate [ Anterior Bilateral Throughout] Pulse Rate [ Bilateral Bases ] Respiratory 18 19 19 Rate Respiratory Rate [Anterior Bilateral Throughout] Respiratory Rate [Bilateral Bases] Blood Pressure 109/58 109/58 109/58 O2 Sat by Pulse 89 91 90 Oximetry 10/04/16 10/04/16 10/04/16 01:00 01:10 01:20 Temperature Pulse Rate 85 85 87 Pulse Rate [ Anterior Bilateral Throughout] Pulse Rate [ Bilateral Bases ] Respiratory 20 17 19 Rate Respiratory Rate [Anterior Bilateral Throughout] Respiratory Rate [Bilateral Bases] Blood Pressure 108/57 108/57 108/57 O2 Sat by Pulse 89 90 90 Oximetry 10/04/16 10/04/16 10/04/16 01:30 01:40 01:50 Temperature Pulse Rate 90 89 88 Pulse Rate [ Anterior Bilateral Throughout] Pulse Rate [ Bilateral Bases ] Respiratory 23 26 H 26 H Rate Respiratory Rate [Anterior Bilateral Throughout] Respiratory Rate [Bilateral Bases] Blood Pressure 100/55 100/55 100/55 O2 Sat by Pulse 90 90 90 Oximetry 10/04/16 10/04/16 10/04/16 02:00 02:10 02:20 Temperature Pulse Rate 86 94 H 90 Pulse Rate [ Anterior Bilateral Throughout] Pulse Rate [ Bilateral Bases ] Respiratory 17 26 H 22 Rate Respiratory Rate [Anterior Bilateral Throughout] Respiratory Rate [Bilateral Bases] Blood Pressure 86/53 110/57 110/57 O2 Sat by Pulse 89 80 L 88 Oximetry 10/04/16 10/04/16 10/04/16 02:30 02:40 02:50 Temperature Pulse Rate 88 89 86 Pulse Rate [ Anterior Bilateral Throughout] Pulse Rate [ Bilateral Bases ] Respiratory 18 18 20 Rate Respiratory Rate [Anterior Bilateral Throughout] Respiratory Rate [Bilateral Bases] Blood Pressure 118/61 118/61 118/61 O2 Sat by Pulse 87 90 91 Oximetry 10/04/16 10/04/16 10/04/16 03:00 03:10 03:20 Temperature Pulse Rate 85 85 84 Pulse Rate [ Anterior Bilateral Throughout] Pulse Rate [ Bilateral Bases ] Respiratory 18 19 18 Rate Respiratory Rate [Anterior Bilateral Throughout] Respiratory Rate [Bilateral Bases] Blood Pressure 113/63 113/63 113/63 O2 Sat by Pulse 87 92 91 Oximetry 10/04/16 10/04/16 10/04/16 03:28 03:30 03:38 Temperature Pulse Rate 79 Pulse Rate [ Anterior Bilateral Throughout] Pulse Rate [ 84 86 Bilateral Bases ] Respiratory 30 H Rate Respiratory Rate [Anterior Bilateral Throughout] Respiratory 22 22 Rate [Bilateral Bases] Blood Pressure 105/55 O2 Sat by Pulse 96 Oximetry 10/04/16 10/04/16 10/04/16 03:40 03:50 04:00 Temperature 98 F Pulse Rate 83 86 86 Pulse Rate [ Anterior Bilateral Throughout] Pulse Rate [ Bilateral Bases ] Respiratory 21 19 22 Rate Respiratory Rate [Anterior Bilateral Throughout] Respiratory Rate [Bilateral Bases] Blood Pressure 105/55 105/55 110/67 O2 Sat by Pulse 93 92 87 Oximetry 10/04/16 10/04/16 10/04/16 04:10 04:20 04:30 Temperature Pulse Rate 91 H 88 Pulse Rate [ Anterior Bilateral Throughout] Pulse Rate [ Bilateral Bases ] Respiratory 17 18 20 Rate Respiratory Rate [Anterior Bilateral Throughout] Respiratory Rate [Bilateral Bases] Blood Pressure 110/67 110/67 116/56 O2 Sat by Pulse 90 82 L 84 Oximetry 10/04/16 10/04/16 10/04/16 04:40 04:50 05:00 Temperature Pulse Rate 87 87 85 Pulse Rate [ Anterior Bilateral Throughout] Pulse Rate [ Bilateral Bases ] Respiratory 29 H 18 19 Rate Respiratory Rate [Anterior Bilateral Throughout] Respiratory Rate [Bilateral Bases] Blood Pressure 116/56 116/56 110/52 O2 Sat by Pulse 88 90 87 Oximetry 10/04/16 10/04/16 10/04/16 05:10 05:20 05:30 Temperature Pulse Rate 85 84 83 Pulse Rate [ Anterior Bilateral Throughout] Pulse Rate [ Bilateral Bases ] Respiratory 19 18 19 Rate Respiratory Rate [Anterior Bilateral Throughout] Respiratory Rate [Bilateral Bases] Blood Pressure 110/52 110/52 103/56 O2 Sat by Pulse 90 88 Oximetry 10/04/16 10/04/16 10/04/16 05:40 05:50 06:00 Temperature Pulse Rate 84 84 80 Pulse Rate [ Anterior Bilateral Throughout] Pulse Rate [ Bilateral Bases ] Respiratory 19 18 21 Rate Respiratory Rate [Anterior Bilateral Throughout] Respiratory Rate [Bilateral Bases] Blood Pressure 103/56 103/56 109/54 O2 Sat by Pulse 92 93 90 Oximetry 10/04/16 10/04/16 10/04/16 06:02 06:10 06:20 Temperature Pulse Rate 83 80 80 Pulse Rate [ Anterior Bilateral Throughout] Pulse Rate [ Bilateral Bases ] Respiratory 18 18 Rate Respiratory Rate [Anterior Bilateral Throughout] Respiratory Rate [Bilateral Bases] Blood Pressure 103/56 109/54 109/54 O2 Sat by Pulse 93 91 92 Oximetry 10/04/16 10/04/16 10/04/16 06:30 06:40 06:50 Temperature Pulse Rate 79 78 78 Pulse Rate [ Anterior Bilateral Throughout] Pulse Rate [ Bilateral Bases ] Respiratory 18 31 H 30 H Rate Respiratory Rate [Anterior Bilateral Throughout] Respiratory Rate [Bilateral Bases] Blood Pressure 107/54 107/54 107/54 O2 Sat by Pulse 90 95 95 Oximetry 10/04/16 10/04/16 10/04/16 06:52 07:00 07:10 Temperature Pulse Rate 78 80 77 Pulse Rate [ Anterior Bilateral Throughout] Pulse Rate [ Bilateral Bases ] Respiratory 30 H 30 H Rate Respiratory Rate [Anterior Bilateral Throughout] Respiratory Rate [Bilateral Bases] Blood Pressure 107/54 103/51 103/51 O2 Sat by Pulse 95 88 99 Oximetry 10/04/16 10/04/16 10/04/16 07:11 07:20 07:30 Temperature Pulse Rate 70 72 Pulse Rate [ 77 Anterior Bilateral Throughout] Pulse Rate [ Bilateral Bases ] Respiratory 30 H 30 H Rate Respiratory 30 H Rate [Anterior Bilateral Throughout] Respiratory Rate [Bilateral Bases] Blood Pressure 107/54 90/46 O2 Sat by Pulse 100 99 Oximetry 10/04/16 10/04/16 10/04/16 07:34 07:39 07:40 Temperature Pulse Rate 68 69 Pulse Rate [ 69 Anterior Bilateral Throughout] Pulse Rate [ Bilateral Bases ] Respiratory 30 H Rate Respiratory 30 H Rate [Anterior Bilateral Throughout] Respiratory Rate [Bilateral Bases] Blood Pressure 90/46 90/46 O2 Sat by Pulse 100 100 Oximetry 10/04/16 10/04/16 10/04/16 07:50 08:00 08:09 Temperature 97.2 F L Pulse Rate 68 68 Pulse Rate [ Anterior Bilateral Throughout] Pulse Rate [ Bilateral Bases ] Respiratory 30 H 18 Rate Respiratory Rate [Anterior Bilateral Throughout] Respiratory Rate [Bilateral Bases] Blood Pressure 103/51 86/46 O2 Sat by Pulse 100 94 Oximetry 10/04/16 10/04/16 10/04/16 08:10 08:20 08:30 Temperature Pulse Rate 68 67 67 Pulse Rate [ Anterior Bilateral Throughout] Pulse Rate [ Bilateral Bases ] Respiratory 30 H 30 H 30 H Rate Respiratory Rate [Anterior Bilateral Throughout] Respiratory Rate [Bilateral Bases] Blood Pressure 86/46 92/50 93/49 O2 Sat by Pulse 100 100 100 Oximetry 10/04/16 10/04/16 10/04/16 08:40 08:50 09:00 Temperature Pulse Rate 67 68 68 Pulse Rate [ Anterior Bilateral Throughout] Pulse Rate [ Bilateral Bases ] Respiratory 30 H 30 H 30 H Rate Respiratory Rate [Anterior Bilateral Throughout] Respiratory Rate [Bilateral Bases] Blood Pressure 93/49 93/49 86/51 O2 Sat by Pulse 100 100 100 Oximetry 10/04/16 10/04/16 10/04/16 09:10 09:20 09:30 Temperature Pulse Rate 75 92 H Pulse Rate [ Anterior Bilateral Throughout] Pulse Rate [ Bilateral Bases ] Respiratory 27 H 29 H 34 H Rate Respiratory Rate [Anterior Bilateral Throughout] Respiratory Rate [Bilateral Bases] Blood Pressure 86/51 86/51 99/59 O2 Sat by Pulse 100 100 93 Oximetry 10/04/16 10/04/16 10/04/16 09:40 09:50 10:00 Temperature Pulse Rate 76 73 73 Pulse Rate [ Anterior Bilateral Throughout] Pulse Rate [ Bilateral Bases ] Respiratory 30 H 29 H 26 H Rate Respiratory Rate [Anterior Bilateral Throughout] Respiratory Rate [Bilateral Bases] Blood Pressure 99/59 99/59 99/49 O2 Sat by Pulse 99 100 99 Oximetry 10/04/16 10/04/16 10:10 10:22 Temperature Pulse Rate 71 71 Pulse Rate [ Anterior Bilateral Throughout] Pulse Rate [ Bilateral Bases ] Respiratory 30 H Rate Respiratory Rate [Anterior Bilateral Throughout] Respiratory Rate [Bilateral Bases] Blood Pressure 99/49 99/49 O2 Sat by Pulse 100 100 Oximetry Constitutional: other (sedated) Eyes: non-icteric ENT: oropharynx moist Neck: supple, no lymphadenopathy Effort: mildly labored Ascultation: Bilateral: rales Cardiovascular: regular rate and rhythm Gastrointestinal: normoactive bowel sounds, soft, non-tender, non-distended Integumentary: normal Extremities: no cyanosis, no edema, pulses normal, no ischemia or petechiae Neurologic: unable to assess Psychiatric: other (sedated now) CBC and BMP: 10/05/16 01:27 10/05/16 01:27 ABG, PT/INR, D-dimer: ABG POC ABG pH 7.248 (7.35-7.45) L 10/04/16 06:02 POC ABG pCO2 62.3 (35-45) H 10/04/16 06:02 POC ABG pO2 59 (80-105) L 10/04/16 06:02 POC ABG HCO3 27.2 10/04/16 06:02 POC ABG Total CO2 29 10/04/16 06:02 POC ABG O2 Sat 85 10/04/16 06:02 PT/INR, D-dimer PT 14.5 Sec. (12.2-14.9) 09/20/16 10:35 INR 1.14 (0.87-1.13) H 09/20/16 10:35 D-Dimer 4758.12 ng/mlDDU (0-234) H 09/27/16 22:47 Abnormal lab findings: Abnormal Labs 09/20/16 09/20/16 09/20/16 10:35 10:35 10:35 WBC 11.7 H RBC Hgb Hct MCV 75 L MCH 24 L RDW 16.6 H Plt Count Seg Neuts % (Manual) Lymphocytes % (Manual) Eosinophils % (Manual) Nucleated RBC % Seg Neutrophils # Man Monocytes # (Manual) Eosinophils # (Manual) Percent Retic INR 1.14 H D-Dimer POC ABG pH POC ABG pCO2 POC ABG pO2 Sodium Potassium Chloride Carbon Dioxide BUN Creatinine 0.5 L Glucose 115 H POC Glucose Lactic Acid Calcium Total Bilirubin 2.0 H Lactate Dehydrogenase Total Creatine Kinase CK-MB (CK-2) C-Reactive Protein NT-Pro-B Natriuret Pep Total Protein Albumin Urine WBC (Auto) Urine Creatinine Urine Total Protein Crossmatch 09/26/16 09/26/16 09/27/16 04:26 04:26 10:26 WBC RBC Hgb 8.9 L Hct 28.0 L MCV MCH RDW Plt Count Seg Neuts % (Manual) Lymphocytes % (Manual) Eosinophils % (Manual) Nucleated RBC % Seg Neutrophils # Man Monocytes # (Manual) Eosinophils # (Manual) Percent Retic INR D-Dimer POC ABG pH 7.283 L POC ABG pCO2 45.3 H POC ABG pO2 79 L Sodium Potassium Chloride Carbon Dioxide 20 L BUN Creatinine Glucose 129 H POC Glucose Lactic Acid Calcium 7.6 L Total Bilirubin Lactate Dehydrogenase Total Creatine Kinase CK-MB (CK-2) C-Reactive Protein NT-Pro-B Natriuret Pep Total Protein Albumin Urine WBC (Auto) Urine Creatinine Urine Total Protein Crossmatch 09/27/16 09/27/16 09/27/16 14:40 14:40 15:14 WBC 39.3 H RBC Hgb 9.3 L Hct 28.9 L MCV 75 L MCH 24 L RDW 18.7 H Plt Count Seg Neuts % (Manual) 93.5 H Lymphocytes % (Manual) 5.0 L Eosinophils % (Manual) Nucleated RBC % Seg Neutrophils # Man 36.7 H Monocytes # (Manual) Eosinophils # (Manual) Percent Retic INR D-Dimer POC ABG pH POC ABG pCO2 POC ABG pO2 Sodium Potassium Chloride Carbon Dioxide BUN Creatinine Glucose POC Glucose Lactic Acid 2.9 H* Calcium Total Bilirubin Lactate Dehydrogenase Total Creatine Kinase 3575 H CK-MB (CK-2) 11.0 H C-Reactive Protein 16.10 H NT-Pro-B Natriuret Pep Total Protein Albumin Urine WBC (Auto) Urine Creatinine Urine Total Protein Crossmatch 09/27/16 09/27/16 09/27/16 18:05 22:47 22:47 WBC RBC Hgb Hct MCV MCH RDW Plt Count Seg Neuts % (Manual) Lymphocytes % (Manual) Eosinophils % (Manual) Nucleated RBC % Seg Neutrophils # Man Monocytes # (Manual) Eosinophils # (Manual) Percent Retic INR D-Dimer 4758.12 H POC ABG pH POC ABG pCO2 POC ABG pO2 70 L Sodium Potassium Chloride Carbon Dioxide BUN Creatinine Glucose POC Glucose Lactic Acid Calcium Total Bilirubin Lactate Dehydrogenase 829 H Total Creatine Kinase CK-MB (CK-2) C-Reactive Protein NT-Pro-B Natriuret Pep Total Protein Albumin Urine WBC (Auto) Urine Creatinine Urine Total Protein Crossmatch 09/27/16 09/28/16 09/28/16 22:47 09:20 10:47 WBC RBC Hgb Hct MCV MCH RDW Plt Count Seg Neuts % (Manual) Lymphocytes % (Manual) Eosinophils % (Manual) Nucleated RBC % Seg Neutrophils # Man Monocytes # (Manual) Eosinophils # (Manual) Percent Retic 8.11 H INR D-Dimer POC ABG pH POC ABG pCO2 47.2 H POC ABG pO2 70 L Sodium Potassium Chloride Carbon Dioxide BUN Creatinine 0.6 L Glucose 137 H POC Glucose Lactic Acid Calcium Total Bilirubin Lactate Dehydrogenase Total Creatine Kinase CK-MB (CK-2) C-Reactive Protein NT-Pro-B Natriuret Pep Total Protein Albumin Urine WBC (Auto) Urine Creatinine Urine Total Protein Crossmatch 09/28/16 09/30/16 09/30/16 10:47 11:01 14:05 WBC 30.3 H RBC 3.27 L Hgb 8.1 L Hct 24.4 L MCV 75 L MCH 25 L RDW 18.9 H Plt Count Seg Neuts % (Manual) Lymphocytes % (Manual) 12.0 L Eosinophils % (Manual) Nucleated RBC % 5.0 H Seg Neutrophils # Man 21.2 H Monocytes # (Manual) 1.8 H Eosinophils # (Manual) Percent Retic INR D-Dimer POC ABG pH POC ABG pCO2 48.8 H POC ABG pO2 52 L Sodium Potassium Chloride Carbon Dioxide BUN Creatinine Glucose POC Glucose Lactic Acid Calcium Total Bilirubin Lactate Dehydrogenase Total Creatine Kinase CK-MB (CK-2) C-Reactive Protein NT-Pro-B Natriuret Pep 2018 H Total Protein Albumin Urine WBC (Auto) Urine Creatinine Urine Total Protein Crossmatch 09/30/16 09/30/16 09/30/16 14:05 14:05 14:05 WBC 22.1 H RBC 2.76 L Hgb 6.9 L Hct 20.6 L MCV 75 L MCH 25 L RDW 18.7 H Plt Count Seg Neuts % (Manual) 74.0 H Lymphocytes % (Manual) 7.0 L Eosinophils % (Manual) Nucleated RBC % 52.0 H Seg Neutrophils # Man 16.4 H Monocytes # (Manual) Eosinophils # (Manual) Percent Retic INR D-Dimer POC ABG pH POC ABG pCO2 POC ABG pO2 Sodium Potassium 3.1 L Chloride Carbon Dioxide BUN Creatinine 0.5 L Glucose 116 H POC Glucose Lactic Acid Calcium 8.2 L Total Bilirubin Lactate Dehydrogenase Total Creatine Kinase CK-MB (CK-2) C-Reactive Protein 30.80 H NT-Pro-B Natriuret Pep Total Protein Albumin Urine WBC (Auto) Urine Creatinine Urine Total Protein Crossmatch 09/30/16 10/01/16 10/01/16 14:33 00:55 00:55 WBC 26.1 H RBC 2.80 L Hgb 6.8 L Hct 20.8 L MCV 74 L MCH 24 L RDW 18.6 H Plt Count Seg Neuts % (Manual) 85.0 H Lymphocytes % (Manual) 11.0 L Eosinophils % (Manual) Nucleated RBC % 21.0 H Seg Neutrophils # Man 22.2 H Monocytes # (Manual) 1.0 H Eosinophils # (Manual) Percent Retic INR D-Dimer POC ABG pH POC ABG pCO2 47.8 H POC ABG pO2 201 H Sodium Potassium Chloride Carbon Dioxide BUN Creatinine Glucose POC Glucose Lactic Acid Calcium Total Bilirubin Lactate Dehydrogenase Total Creatine Kinase CK-MB (CK-2) C-Reactive Protein NT-Pro-B Natriuret Pep Total Protein Albumin Urine WBC (Auto) Urine Creatinine Urine Total Protein Crossmatch See Detail 10/01/16 10/01/16 10/01/16 04:57 05:00 13:01 WBC RBC Hgb Hct MCV MCH RDW Plt Count Seg Neuts % (Manual) Lymphocytes % (Manual) Eosinophils % (Manual) Nucleated RBC % Seg Neutrophils # Man Monocytes # (Manual) Eosinophils # (Manual) Percent Retic INR D-Dimer POC ABG pH POC ABG pCO2 58.5 H POC ABG pO2 149 H Sodium 149 H Potassium 3.0 L Chloride Carbon Dioxide BUN Creatinine Glucose POC Glucose 120 H Lactic Acid Calcium 8.3 L Total Bilirubin Lactate Dehydrogenase Total Creatine Kinase CK-MB (CK-2) C-Reactive Protein NT-Pro-B Natriuret Pep Total Protein Albumin Urine WBC (Auto) Urine Creatinine Urine Total Protein Crossmatch 10/01/16 10/01/16 10/01/16 15:43 17:44 23:37 WBC 27.6 H RBC 3.55 L Hgb 8.9 L Hct 27.6 L D MCV 78 L D MCH 25 L RDW 18.1 H Plt Count Seg Neuts % (Manual) 79.5 H Lymphocytes % (Manual) 8.0 L Eosinophils % (Manual) Nucleated RBC % 65.0 H Seg Neutrophils # Man 21.9 H Monocytes # (Manual) 1.0 H Eosinophils # (Manual) Percent Retic INR D-Dimer POC ABG pH POC ABG pCO2 POC ABG pO2 Sodium Potassium Chloride Carbon Dioxide BUN Creatinine Glucose POC Glucose 121 H 129 H Lactic Acid Calcium Total Bilirubin Lactate Dehydrogenase Total Creatine Kinase CK-MB (CK-2) C-Reactive Protein NT-Pro-B Natriuret Pep Total Protein Albumin Urine WBC (Auto) Urine Creatinine Urine Total Protein Crossmatch 10/02/16 10/02/16 10/02/16 05:05 05:40 06:00 WBC 23.0 H RBC 3.30 L Hgb 8.3 L Hct 25.8 L MCV 78 L MCH 25 L RDW 18.2 H Plt Count Seg Neuts % (Manual) 83.5 H Lymphocytes % (Manual) 4.0 L Eosinophils % (Manual) Nucleated RBC % 14.5 H Seg Neutrophils # Man 25.1 H Monocytes # (Manual) 1.7 H Eosinophils # (Manual) Percent Retic INR D-Dimer POC ABG pH POC ABG pCO2 50.5 H POC ABG pO2 Sodium Potassium Chloride Carbon Dioxide BUN Creatinine Glucose POC Glucose 123 H Lactic Acid Calcium Total Bilirubin Lactate Dehydrogenase Total Creatine Kinase CK-MB (CK-2) C-Reactive Protein NT-Pro-B Natriuret Pep Total Protein Albumin Urine WBC (Auto) Urine Creatinine Urine Total Protein Crossmatch 10/02/16 10/02/16 10/02/16 06:00 11:42 21:52 WBC RBC Hgb Hct MCV MCH RDW Plt Count Seg Neuts % (Manual) Lymphocytes % (Manual) Eosinophils % (Manual) Nucleated RBC % Seg Neutrophils # Man Monocytes # (Manual) Eosinophils # (Manual) Percent Retic INR D-Dimer POC ABG pH 7.324 L POC ABG pCO2 60.5 H POC ABG pO2 74 L Sodium 150 H Potassium Chloride 108.3 H Carbon Dioxide BUN 20 H Creatinine 1.4 H D Glucose 117 H POC Glucose 135 H Lactic Acid Calcium Total Bilirubin Lactate Dehydrogenase Total Creatine Kinase CK-MB (CK-2) C-Reactive Protein NT-Pro-B Natriuret Pep Total Protein Albumin Urine WBC (Auto) Urine Creatinine Urine Total Protein Crossmatch 10/02/16 10/03/16 10/03/16 23:26 05:55 08:17 WBC 32.0 H RBC 3.13 L Hgb 7.9 L Hct 24.6 L MCV MCH 25 L RDW 18.9 H Plt Count 132 L Seg Neuts % (Manual) 75.0 H Lymphocytes % (Manual) 5.0 L Eosinophils % (Manual) Nucleated RBC % 26.0 H Seg Neutrophils # Man 24.0 H Monocytes # (Manual) 1.0 H Eosinophils # (Manual) 1.0 H Percent Retic INR D-Dimer POC ABG pH POC ABG pCO2 POC ABG pO2 Sodium Potassium Chloride Carbon Dioxide BUN Creatinine Glucose POC Glucose 121 H 145 H Lactic Acid Calcium Total Bilirubin Lactate Dehydrogenase Total Creatine Kinase CK-MB (CK-2) C-Reactive Protein NT-Pro-B Natriuret Pep Total Protein Albumin Urine WBC (Auto) Urine Creatinine Urine Total Protein Crossmatch 10/03/16 10/03/16 10/03/16 08:17 09:26 11:34 WBC RBC Hgb Hct MCV MCH RDW Plt Count Seg Neuts % (Manual) Lymphocytes % (Manual) Eosinophils % (Manual) Nucleated RBC % Seg Neutrophils # Man Monocytes # (Manual) Eosinophils # (Manual) Percent Retic INR D-Dimer POC ABG pH 7.274 L POC ABG pCO2 59.7 H POC ABG pO2 58 L Sodium 147 H Potassium Chloride 107.6 H Carbon Dioxide BUN 31 H Creatinine 1.7 H Glucose 118 H POC Glucose 142 H Lactic Acid Calcium Total Bilirubin Lactate Dehydrogenase Total Creatine Kinase CK-MB (CK-2) C-Reactive Protein NT-Pro-B Natriuret Pep Total Protein Albumin Urine WBC (Auto) Urine Creatinine Urine Total Protein Crossmatch 10/03/16 10/03/16 10/03/16 15:54 15:54 16:58 WBC RBC Hgb Hct MCV MCH RDW Plt Count Seg Neuts % (Manual) Lymphocytes % (Manual) Eosinophils % (Manual) Nucleated RBC % Seg Neutrophils # Man Monocytes # (Manual) Eosinophils # (Manual) Percent Retic INR D-Dimer POC ABG pH POC ABG pCO2 POC ABG pO2 Sodium Potassium Chloride Carbon Dioxide BUN Creatinine Glucose POC Glucose 138 H Lactic Acid Calcium Total Bilirubin Lactate Dehydrogenase Total Creatine Kinase CK-MB (CK-2) C-Reactive Protein NT-Pro-B Natriuret Pep Total Protein Albumin Urine WBC (Auto) 21.0 H Urine Creatinine 63.2 H Urine Total Protein 67 H Crossmatch 10/03/16 10/03/16 10/04/16 21:37 23:44 04:00 WBC 30.3 H RBC 2.86 L Hgb 7.3 L Hct 22.6 L MCV MCH 25 L RDW 19.6 H Plt Count 125 L Seg Neuts % (Manual) Lymphocytes % (Manual) 12.0 L Eosinophils % (Manual) 5.0 H Nucleated RBC % 30.0 H Seg Neutrophils # Man 12.7 H Monocytes # (Manual) 1.2 H Eosinophils # (Manual) 1.5 H Percent Retic INR D-Dimer POC ABG pH 7.271 L POC ABG pCO2 61.7 H POC ABG pO2 77 L Sodium Potassium Chloride Carbon Dioxide BUN Creatinine Glucose POC Glucose 130 H Lactic Acid Calcium Total Bilirubin Lactate Dehydrogenase Total Creatine Kinase CK-MB (CK-2) C-Reactive Protein NT-Pro-B Natriuret Pep Total Protein Albumin Urine WBC (Auto) Urine Creatinine Urine Total Protein Crossmatch 10/04/16 10/04/16 04:03 06:02 WBC RBC Hgb Hct MCV MCH RDW Plt Count Seg Neuts % (Manual) Lymphocytes % (Manual) Eosinophils % (Manual) Nucleated RBC % Seg Neutrophils # Man Monocytes # (Manual) Eosinophils # (Manual) Percent Retic INR D-Dimer POC ABG pH 7.248 L POC ABG pCO2 62.3 H POC ABG pO2 59 L Sodium Potassium Chloride Carbon Dioxide BUN 40 H Creatinine 1.7 H Glucose 110 H POC Glucose Lactic Acid Calcium Total Bilirubin Lactate Dehydrogenase Total Creatine Kinase CK-MB (CK-2) C-Reactive Protein NT-Pro-B Natriuret Pep Total Protein 5.6 L Albumin 2.1 L Urine WBC (Auto) Urine Creatinine Urine Total Protein Crossmatch
--- NOTE | 2016-10-04 11:01 | Ultrasound Report ---
Renal ultrasound: Renal failure. The examination is technically limited due to the patient's habitus. The right renal length is 11.7 cm and the left renal length is 12.2 cm. The parenchyma appears be adequately preserved bilaterally. The echogenicity of both kidneys is relatively unremarkable. There is mild prominence of the central collecting systems of both kidneys. There is no peripheral dilatation noted. No renal mass. Survey imaging of the urinary bladder demonstrates a Montes catheter surrounded by a relatively decompressed bladder with no other findings. Impressions: Limited quality study. Minimal dilatation of central collecting systems bilaterally.
--- NOTE | 2016-10-04 12:11 | Cat Scan Report ---
CT scan of abdomen and pelvis without IV contrast: Findings: Liver is normal in size.Spleen appears normal. Pancreas appears normal. Patient status post cholecystectomy. No intrahepatic or extrahepatic biliary dilatation. Normal intravenous kidney parenchyma and bladder. No free intraperitoneal fluid or air. No evidence of adenopathy. Normal aorta. Gaseous colon with moderate volume stool in colon. No evidence of appendicitis or diverticulitis. Impression: No acute abdominal findings.
--- NOTE | 2016-10-04 12:13 | Cat Scan Report ---
CT scan of chest without IV contrast: History: Sepsis. Findings: Tip of tracheostomy tube in normal position. The trachea is midline. No mediastinal mass or adenopathy. No pleural or pericardial effusion. Bilateral diffuse groundglass lungs. Also noted bilateral associated airspace opacities and echograms. Impression: Probable pneumonia or pulmonary edema.
[2016-10-04] MEDS: MIDAZOLAM 100 MG in NACL 0.9% 80 ML IV SCH (12:54)
[2016-10-04] MEDS ORDERED: NACL 0.9% 1000 ML 1,000 ML IV SCH (13:00)
--- NOTE | 2016-10-04 13:30 | Progress Note ---
Assessment and Plan - Patient Problems (1) H/O total hip arthroplasty Current Visit: Yes Status: Acute Qualifiers: Laterality: left Qualified Code(s): Z96.642 - Presence of left artificial hip joint Plan to address problem: Intubated and sedated. Total hip arthroplasty, no new changes. Continue with pulmonary/medical management of acute or more edema syndrome, we' ll allow her to sit up as tolerated, out of bed, weightbearing as tolerated when medically cleared. Continue with DVT prophylaxis. Subjective Principal diagnosis: Acute Hypoxemic Respiratory Failure; ARDS Interval history: She is on ventilator, sedated. No obvious drainage from the hip, orthopedic status stable. Objective Vital signs: Vital Signs - 12hr 10/04/16 10/04/16 10/04/16 01:40 01:50 02:00 Temperature Pulse Rate 89 88 86 Pulse Rate [ Anterior Bilateral Throughout] Pulse Rate [ Bilateral Bases ] Respiratory 26 H 26 H 17 Rate Respiratory Rate [Anterior Bilateral Throughout] Respiratory Rate [Bilateral Bases] Blood Pressure 100/55 100/55 86/53 O2 Sat by Pulse 90 90 89 Oximetry 10/04/16 10/04/16 10/04/16 02:10 02:20 02:30 Temperature Pulse Rate 94 H 90 88 Pulse Rate [ Anterior Bilateral Throughout] Pulse Rate [ Bilateral Bases ] Respiratory 26 H 22 18 Rate Respiratory Rate [Anterior Bilateral Throughout] Respiratory Rate [Bilateral Bases] Blood Pressure 110/57 110/57 118/61 O2 Sat by Pulse 80 L 88 87 Oximetry 10/04/16 10/04/16 10/04/16 02:40 02:50 03:00 Temperature Pulse Rate 89 86 85 Pulse Rate [ Anterior Bilateral Throughout] Pulse Rate [ Bilateral Bases ] Respiratory 18 20 18 Rate Respiratory Rate [Anterior Bilateral Throughout] Respiratory Rate [Bilateral Bases] Blood Pressure 118/61 118/61 113/63 O2 Sat by Pulse 90 91 87 Oximetry 10/04/16 10/04/16 10/04/16 03:10 03:20 03:28 Temperature Pulse Rate 85 84 Pulse Rate [ Anterior Bilateral Throughout] Pulse Rate [ 84 Bilateral Bases ] Respiratory 19 18 Rate Respiratory Rate [Anterior Bilateral Throughout] Respiratory 22 Rate [Bilateral Bases] Blood Pressure 113/63 113/63 O2 Sat by Pulse 92 91 Oximetry 10/04/16 10/04/16 10/04/16 03:30 03:38 03:40 Temperature Pulse Rate 79 83 Pulse Rate [ Anterior Bilateral Throughout] Pulse Rate [ 86 Bilateral Bases ] Respiratory 30 H 21 Rate Respiratory Rate [Anterior Bilateral Throughout] Respiratory 22 Rate [Bilateral Bases] Blood Pressure 105/55 105/55 O2 Sat by Pulse 96 93 Oximetry 10/04/16 10/04/16 10/04/16 03:50 04:00 04:10 Temperature 98 F Pulse Rate 86 86 91 H Pulse Rate [ Anterior Bilateral Throughout] Pulse Rate [ Bilateral Bases ] Respiratory 19 22 17 Rate Respiratory Rate [Anterior Bilateral Throughout] Respiratory Rate [Bilateral Bases] Blood Pressure 105/55 110/67 110/67 O2 Sat by Pulse 92 87 90 Oximetry 10/04/16 10/04/16 10/04/16 04:20 04:30 04:40 Temperature Pulse Rate 88 87 Pulse Rate [ Anterior Bilateral Throughout] Pulse Rate [ Bilateral Bases ] Respiratory 18 20 29 H Rate Respiratory Rate [Anterior Bilateral Throughout] Respiratory Rate [Bilateral Bases] Blood Pressure 110/67 116/56 116/56 O2 Sat by Pulse 82 L 84 88 Oximetry 10/04/16 10/04/16 10/04/16 04:50 05:00 05:10 Temperature Pulse Rate 87 85 85 Pulse Rate [ Anterior Bilateral Throughout] Pulse Rate [ Bilateral Bases ] Respiratory 18 19 19 Rate Respiratory Rate [Anterior Bilateral Throughout] Respiratory Rate [Bilateral Bases] Blood Pressure 116/56 110/52 110/52 O2 Sat by Pulse 90 87 90 Oximetry 10/04/16 10/04/16 10/04/16 05:20 05:30 05:40 Temperature Pulse Rate 84 83 84 Pulse Rate [ Anterior Bilateral Throughout] Pulse Rate [ Bilateral Bases ] Respiratory 18 19 19 Rate Respiratory Rate [Anterior Bilateral Throughout] Respiratory Rate [Bilateral Bases] Blood Pressure 110/52 103/56 103/56 O2 Sat by Pulse 88 92 Oximetry 10/04/16 10/04/16 10/04/16 05:50 06:00 06:02 Temperature Pulse Rate 84 80 83 Pulse Rate [ Anterior Bilateral Throughout] Pulse Rate [ Bilateral Bases ] Respiratory 18 21 Rate Respiratory Rate [Anterior Bilateral Throughout] Respiratory Rate [Bilateral Bases] Blood Pressure 103/56 109/54 103/56 O2 Sat by Pulse 93 90 93 Oximetry 10/04/16 10/04/16 10/04/16 06:10 06:20 06:30 Temperature Pulse Rate 80 80 79 Pulse Rate [ Anterior Bilateral Throughout] Pulse Rate [ Bilateral Bases ] Respiratory 18 18 18 Rate Respiratory Rate [Anterior Bilateral Throughout] Respiratory Rate [Bilateral Bases] Blood Pressure 109/54 109/54 107/54 O2 Sat by Pulse 91 92 90 Oximetry 10/04/16 10/04/16 10/04/16 06:40 06:50 06:52 Temperature Pulse Rate 78 78 78 Pulse Rate [ Anterior Bilateral Throughout] Pulse Rate [ Bilateral Bases ] Respiratory 31 H 30 H Rate Respiratory Rate [Anterior Bilateral Throughout] Respiratory Rate [Bilateral Bases] Blood Pressure 107/54 107/54 107/54 O2 Sat by Pulse 95 95 95 Oximetry 10/04/16 10/04/16 10/04/16 07:00 07:10 07:11 Temperature Pulse Rate 80 77 Pulse Rate [ 77 Anterior Bilateral Throughout] Pulse Rate [ Bilateral Bases ] Respiratory 30 H 30 H Rate Respiratory 30 H Rate [Anterior Bilateral Throughout] Respiratory Rate [Bilateral Bases] Blood Pressure 103/51 103/51 O2 Sat by Pulse 88 99 Oximetry 10/04/16 10/04/16 10/04/16 07:20 07:30 07:34 Temperature Pulse Rate 70 72 Pulse Rate [ 69 Anterior Bilateral Throughout] Pulse Rate [ Bilateral Bases ] Respiratory 30 H 30 H Rate Respiratory 30 H Rate [Anterior Bilateral Throughout] Respiratory Rate [Bilateral Bases] Blood Pressure 107/54 90/46 O2 Sat by Pulse 100 99 Oximetry 10/04/16 10/04/16 10/04/16 07:39 07:40 07:50 Temperature Pulse Rate 68 69 68 Pulse Rate [ Anterior Bilateral Throughout] Pulse Rate [ Bilateral Bases ] Respiratory 30 H 30 H Rate Respiratory Rate [Anterior Bilateral Throughout] Respiratory Rate [Bilateral Bases] Blood Pressure 90/46 90/46 103/51 O2 Sat by Pulse 100 100 100 Oximetry 10/04/16 10/04/16 10/04/16 08:00 08:09 08:10 Temperature 97.2 F L Pulse Rate 68 68 Pulse Rate [ Anterior Bilateral Throughout] Pulse Rate [ Bilateral Bases ] Respiratory 18 30 H Rate Respiratory Rate [Anterior Bilateral Throughout] Respiratory Rate [Bilateral Bases] Blood Pressure 86/46 86/46 O2 Sat by Pulse 94 100 Oximetry 10/04/16 10/04/16 10/04/16 08:20 08:30 08:40 Temperature Pulse Rate 67 67 67 Pulse Rate [ Anterior Bilateral Throughout] Pulse Rate [ Bilateral Bases ] Respiratory 30 H 30 H 30 H Rate Respiratory Rate [Anterior Bilateral Throughout] Respiratory Rate [Bilateral Bases] Blood Pressure 92/50 93/49 93/49 O2 Sat by Pulse 100 100 100 Oximetry 10/04/16 10/04/16 10/04/16 08:50 09:00 09:10 Temperature Pulse Rate 68 68 75 Pulse Rate [ Anterior Bilateral Throughout] Pulse Rate [ Bilateral Bases ] Respiratory 30 H 30 H 27 H Rate Respiratory Rate [Anterior Bilateral Throughout] Respiratory Rate [Bilateral Bases] Blood Pressure 93/49 86/51 86/51 O2 Sat by Pulse 100 100 100 Oximetry 10/04/16 10/04/16 10/04/16 09:20 09:30 09:40 Temperature Pulse Rate 92 H 76 Pulse Rate [ Anterior Bilateral Throughout] Pulse Rate [ Bilateral Bases ] Respiratory 29 H 34 H 30 H Rate Respiratory Rate [Anterior Bilateral Throughout] Respiratory Rate [Bilateral Bases] Blood Pressure 86/51 99/59 99/59 O2 Sat by Pulse 100 93 99 Oximetry 10/04/16 10/04/16 10/04/16 09:50 10:00 10:10 Temperature Pulse Rate 73 73 71 Pulse Rate [ Anterior Bilateral Throughout] Pulse Rate [ Bilateral Bases ] Respiratory 29 H 26 H 30 H Rate Respiratory Rate [Anterior Bilateral Throughout] Respiratory Rate [Bilateral Bases] Blood Pressure 99/59 99/49 99/49 O2 Sat by Pulse 100 99 100 Oximetry 10/04/16 10/04/16 10/04/16 10:20 10:22 10:30 Temperature Pulse Rate 72 71 78 Pulse Rate [ Anterior Bilateral Throughout] Pulse Rate [ Bilateral Bases ] Respiratory 30 H 30 H Rate Respiratory Rate [Anterior Bilateral Throughout] Respiratory Rate [Bilateral Bases] Blood Pressure 99/49 99/49 102/49 O2 Sat by Pulse 100 100 100 Oximetry 10/04/16 10/04/16 10/04/16 10:40 10:50 11:00 Temperature Pulse Rate 73 71 Pulse Rate [ Anterior Bilateral Throughout] Pulse Rate [ Bilateral Bases ] Respiratory 30 H 30 H Rate Respiratory Rate [Anterior Bilateral Throughout] Respiratory Rate [Bilateral Bases] Blood Pressure 102/49 102/49 102/49 O2 Sat by Pulse 100 100 Oximetry 10/04/16 10/04/16 10/04/16 11:10 12:00 12:10 Temperature 97.9 F Pulse Rate 92 H 80 Pulse Rate [ Anterior Bilateral Throughout] Pulse Rate [ Bilateral Bases ] Respiratory 30 H 30 H Rate Respiratory Rate [Anterior Bilateral Throughout] Respiratory Rate [Bilateral Bases] Blood Pressure 102/49 98/45 98/45 O2 Sat by Pulse 85 96 Oximetry 10/04/16 10/04/16 10/04/16 12:20 12:30 12:36 Temperature Pulse Rate 77 74 71 Pulse Rate [ Anterior Bilateral Throughout] Pulse Rate [ Bilateral Bases ] Respiratory 27 H 30 H Rate Respiratory Rate [Anterior Bilateral Throughout] Respiratory Rate [Bilateral Bases] Blood Pressure 98/45 96/44 96/44 O2 Sat by Pulse 97 93 96 Oximetry 10/04/16 10/04/16 10/04/16 12:40 12:50 13:00 Temperature Pulse Rate 69 68 70 Pulse Rate [ Anterior Bilateral Throughout] Pulse Rate [ Bilateral Bases ] Respiratory 30 H 30 H 30 H Rate Respiratory Rate [Anterior Bilateral Throughout] Respiratory Rate [Bilateral Bases] Blood Pressure 96/44 96/44 97/43 O2 Sat by Pulse 97 98 98 Oximetry - Labs CBC & BMP: 10/05/16 01:27 10/05/16 01:27 Labs: Abnormal lab results 10/03/16 10/03/16 10/03/16 Range/Units 15:54 15:54 16:58 WBC (4.5-11.0) K/mm3 RBC (3.65-5.03) M/mm3 Hgb (10.1-14.3) gm/dl Hct (30.3-42.9) % MCH (28-32) pg RDW (13.2-15.2) % Plt Count (140-440) K/mm3 Lymphocytes % (Manual) (13.4-35.0) % Eosinophils % (Manual) (0.0-4.3) % Nucleated RBC % (0.0-0.9) % Seg Neutrophils # Man (1.8-7.7) K/mm3 Monocytes # (Manual) (0.0-0.8) K/mm3 Eosinophils # (Manual) (0.0-0.4) K/mm3 POC ABG pH (7.35-7.45) POC ABG pCO2 (35-45) POC ABG pO2 (80-105) BUN (7-17) mg/dL Creatinine (0.7-1.2) mg/dL Glucose (65-100) mg/dL POC Glucose 138 H (70-105) Total Protein (6.3-8.2) g/dL Albumin (3.9-5) g/dL Urine WBC (Auto) 21.0 H (0.0-6.0) /HPF Urine Creatinine 63.2 H (0.1-20.0) mg/dL Urine Total Protein 67 H (5-11.8) mg/dL Vancomycin Trough (5.0-20.0) ug/mL 10/03/16 10/03/16 10/04/16 Range/Units 21:37 23:44 04:00 WBC 30.3 H (4.5-11.0) K/mm3 RBC 2.86 L (3.65-5.03) M/mm3 Hgb 7.3 L (10.1-14.3) gm/dl Hct 22.6 L (30.3-42.9) % MCH 25 L (28-32) pg RDW 19.6 H (13.2-15.2) % Plt Count 125 L (140-440) K/mm3 Lymphocytes % (Manual) 12.0 L (13.4-35.0) % Eosinophils % (Manual) 5.0 H (0.0-4.3) % Nucleated RBC % 30.0 H (0.0-0.9) % Seg Neutrophils # Man 12.7 H (1.8-7.7) K/mm3 Monocytes # (Manual) 1.2 H (0.0-0.8) K/mm3 Eosinophils # (Manual) 1.5 H (0.0-0.4) K/mm3 POC ABG pH 7.271 L (7.35-7.45) POC ABG pCO2 61.7 H (35-45) POC ABG pO2 77 L (80-105) BUN (7-17) mg/dL Creatinine (0.7-1.2) mg/dL Glucose (65-100) mg/dL POC Glucose 130 H (70-105) Total Protein (6.3-8.2) g/dL Albumin (3.9-5) g/dL Urine WBC (Auto) (0.0-6.0) /HPF Urine Creatinine (0.1-20.0) mg/dL Urine Total Protein (5-11.8) mg/dL Vancomycin Trough (5.0-20.0) ug/mL 10/04/16 10/04/16 10/04/16 Range/Units 04:03 06:02 12:29 WBC (4.5-11.0) K/mm3 RBC (3.65-5.03) M/mm3 Hgb (10.1-14.3) gm/dl Hct (30.3-42.9) % MCH (28-32) pg RDW (13.2-15.2) % Plt Count (140-440) K/mm3 Lymphocytes % (Manual) (13.4-35.0) % Eosinophils % (Manual) (0.0-4.3) % Nucleated RBC % (0.0-0.9) % Seg Neutrophils # Man (1.8-7.7) K/mm3 Monocytes # (Manual) (0.0-0.8) K/mm3 Eosinophils # (Manual) (0.0-0.4) K/mm3 POC ABG pH 7.248 L (7.35-7.45) POC ABG pCO2 62.3 H (35-45) POC ABG pO2 59 L (80-105) BUN 40 H (7-17) mg/dL Creatinine 1.7 H (0.7-1.2) mg/dL Glucose 110 H (65-100) mg/dL POC Glucose 123 H (70-105) Total Protein 5.6 L (6.3-8.2) g/dL Albumin 2.1 L (3.9-5) g/dL Urine WBC (Auto) (0.0-6.0) /HPF Urine Creatinine (0.1-20.0) mg/dL Urine Total Protein (5-11.8) mg/dL Vancomycin Trough (5.0-20.0) ug/mL 10/04/16 Range/Units 12:39 WBC (4.5-11.0) K/mm3 RBC (3.65-5.03) M/mm3 Hgb (10.1-14.3) gm/dl Hct (30.3-42.9) % MCH (28-32) pg RDW (13.2-15.2) % Plt Count (140-440) K/mm3 Lymphocytes % (Manual) (13.4-35.0) % Eosinophils % (Manual) (0.0-4.3) % Nucleated RBC % (0.0-0.9) % Seg Neutrophils # Man (1.8-7.7) K/mm3 Monocytes # (Manual) (0.0-0.8) K/mm3 Eosinophils # (Manual) (0.0-0.4) K/mm3 POC ABG pH (7.35-7.45) POC ABG pCO2 (35-45) POC ABG pO2 (80-105) BUN (7-17) mg/dL Creatinine (0.7-1.2) mg/dL Glucose (65-100) mg/dL POC Glucose (70-105) Total Protein (6.3-8.2) g/dL Albumin (3.9-5) g/dL Urine WBC (Auto) (0.0-6.0) /HPF Urine Creatinine (0.1-20.0) mg/dL Urine Total Protein (5-11.8) mg/dL Vancomycin Trough 45.5 H (5.0-20.0) ug/mL
[2016-10-04] MEDS: FLAGYL FEEDTUBE SCH ×2 (14:30→22:50)
[2016-10-04 15:33] LABS: ISTAT Base Excess 0; ISTAT HCO3 25.4; ISTAT PCO2 43.8 (35-45); ISTAT PH 7.371 (7.35-7.45); ISTAT PO2 109 (80-105); ISTAT SO2 98; ISTAT TCO2 27
--- NOTE | 2016-10-04 15:53 | Progress Note ---
Assessment and Plan The patient is a 41-year-old female with a history of sickle cell disease who was admitted for total hip arthroplasty for avascular necrosis of the left hip. She had left total hip arthroplasty on 09/25/2016 and developed acute hypoxemic respiratory failure following the POD 2 likely from ARDS and ultimately required intubation on 09/27/2016. Her hemoglobin level dropped from 8.1-6.9 on 09/30/2016, also noted to have hypokalemia with potassium level 3.1. Hospitalist service consulted for medical management. Acute respiratory failure - likely due to ARDS with PNA, intubated on 09/27/16 - on mechanical ventilation with 55% FiO2 - pulmonary following, cont nebulizer, vent support - wean off as tolerated Severe anemia - likely due to sickle cell crisis - transfused 1 unit PRBC - monitor h and H - hematology following Avscular necrosis of the left hip - s/p total left hip arthoplasty on 09/25/16 Hypokalemia -Status post replacement Sepsis syndrome - Likely from ARDS - Spiking temp, wbc count increased today - Continue with IV cefepime and vancomycin - Cultures are negative - ID following, CT abdomen/pelvis unremarkable Hypernatremia - improved with hypotonic iv fluid - cont her on normal saline and free water with tube feeding - Monitor BMP CARLYN - likely from sepsis syndrome -cont iv fluid, monitor renal function - nephrology following The high probability of a clinically significant, sudden or life threatening deterioration of the system(s) required my full and direct attention, intervention and personal management. The aggregate critical care time was [35] minutes. This time is in addition to time spent performing reported procedures but includes the following: [x] Data Review and interpretation [x] Patient assessment and monitoring of vital signs [x] Documentation [x] Medication orders and management Subjective Date of service: 10/04/16 Principal diagnosis: Acute Hypoxemic Respiratory Failure; ARDS Interval history: Patient seen and examined. Medical records and medication list reviewed. No acute event overnight noted by the RN. Patient remained intubated and sedated Had CT abdomen/pelvis showed no acute finding, CT chest showed PNA Discussed plan of care at bedside with RN Discussed with family at bedside Objective - Exam Narrative Exam: GENERAL: well-developed and well-nourished [place] female lying on bed appeared to be in no discomfort. HEENT: Normocephalic. Atraumatic. No conjunctival congestion or icterus. Patient has moist mucous membranes. NECK: Supple. Trachea midline. ET tube in place CHEST/LUNGS: Coarse breath sounds auscultated bilaterally, on mechanical ventilation HEART/CARDIOVASCULAR: Regular in rate and rhythm. S1 and S2 positive. ABDOMEN: Abdomen is soft, nontender. Patient has normal bowel sounds. SKIN: There is no rash. Warm and dry. NEURO: Sedated. MUSCULOSKELETAL: No joint effusion or tenderness. EXTRIMITY: No edema, no cyanosis or clubbing. PSYCH: Unable to assess. - Constitutional Vitals: Vital Signs - 12hr 10/04/16 10/04/16 10/04/16 04:00 04:10 04:20 Temperature 98 F Pulse Rate 86 91 H Pulse Rate [ Anterior Bilateral Throughout] Respiratory 22 17 18 Rate Respiratory Rate [Anterior Bilateral Throughout] Blood Pressure 110/67 110/67 110/67 O2 Sat by Pulse 87 90 82 L Oximetry 10/04/16 10/04/16 10/04/16 04:30 04:40 04:50 Temperature Pulse Rate 88 87 87 Pulse Rate [ Anterior Bilateral Throughout] Respiratory 20 29 H 18 Rate Respiratory Rate [Anterior Bilateral Throughout] Blood Pressure 116/56 116/56 116/56 O2 Sat by Pulse 84 88 90 Oximetry 10/04/16 10/04/16 10/04/16 05:00 05:10 05:20 Temperature Pulse Rate 85 85 84 Pulse Rate [ Anterior Bilateral Throughout] Respiratory 19 19 18 Rate Respiratory Rate [Anterior Bilateral Throughout] Blood Pressure 110/52 110/52 110/52 O2 Sat by Pulse 87 90 88 Oximetry 10/04/16 10/04/16 10/04/16 05:30 05:40 05:50 Temperature Pulse Rate 83 84 84 Pulse Rate [ Anterior Bilateral Throughout] Respiratory 19 19 18 Rate Respiratory Rate [Anterior Bilateral Throughout] Blood Pressure 103/56 103/56 103/56 O2 Sat by Pulse 92 93 Oximetry 10/04/16 10/04/16 10/04/16 06:00 06:02 06:10 Temperature Pulse Rate 80 83 80 Pulse Rate [ Anterior Bilateral Throughout] Respiratory 21 18 Rate Respiratory Rate [Anterior Bilateral Throughout] Blood Pressure 109/54 103/56 109/54 O2 Sat by Pulse 90 93 91 Oximetry 10/04/16 10/04/16 10/04/16 06:20 06:30 06:40 Temperature Pulse Rate 80 79 78 Pulse Rate [ Anterior Bilateral Throughout] Respiratory 18 18 31 H Rate Respiratory Rate [Anterior Bilateral Throughout] Blood Pressure 109/54 107/54 107/54 O2 Sat by Pulse 92 90 95 Oximetry 10/04/16 10/04/16 10/04/16 06:50 06:52 07:00 Temperature Pulse Rate 78 78 80 Pulse Rate [ Anterior Bilateral Throughout] Respiratory 30 H 30 H Rate Respiratory Rate [Anterior Bilateral Throughout] Blood Pressure 107/54 107/54 103/51 O2 Sat by Pulse 95 95 88 Oximetry 10/04/16 10/04/16 10/04/16 07:10 07:11 07:20 Temperature Pulse Rate 77 70 Pulse Rate [ 77 Anterior Bilateral Throughout] Respiratory 30 H 30 H Rate Respiratory 30 H Rate [Anterior Bilateral Throughout] Blood Pressure 103/51 107/54 O2 Sat by Pulse 99 100 Oximetry 10/04/16 10/04/16 10/04/16 07:30 07:34 07:39 Temperature Pulse Rate 72 68 Pulse Rate [ 69 Anterior Bilateral Throughout] Respiratory 30 H Rate Respiratory 30 H Rate [Anterior Bilateral Throughout] Blood Pressure 90/46 90/46 O2 Sat by Pulse 99 100 Oximetry 10/04/16 10/04/16 10/04/16 07:40 07:50 08:00 Temperature Pulse Rate 69 68 68 Pulse Rate [ Anterior Bilateral Throughout] Respiratory 30 H 30 H 18 Rate Respiratory Rate [Anterior Bilateral Throughout] Blood Pressure 90/46 103/51 86/46 O2 Sat by Pulse 100 100 94 Oximetry 10/04/16 10/04/16 10/04/16 08:09 08:10 08:20 Temperature 97.2 F L Pulse Rate 68 67 Pulse Rate [ Anterior Bilateral Throughout] Respiratory 30 H 30 H Rate Respiratory Rate [Anterior Bilateral Throughout] Blood Pressure 86/46 92/50 O2 Sat by Pulse 100 100 Oximetry 10/04/16 10/04/16 10/04/16 08:30 08:40 08:50 Temperature Pulse Rate 67 67 68 Pulse Rate [ Anterior Bilateral Throughout] Respiratory 30 H 30 H 30 H Rate Respiratory Rate [Anterior Bilateral Throughout] Blood Pressure 93/49 93/49 93/49 O2 Sat by Pulse 100 100 100 Oximetry 10/04/16 10/04/16 10/04/16 09:00 09:10 09:20 Temperature Pulse Rate 68 75 92 H Pulse Rate [ Anterior Bilateral Throughout] Respiratory 30 H 27 H 29 H Rate Respiratory Rate [Anterior Bilateral Throughout] Blood Pressure 86/51 86/51 86/51 O2 Sat by Pulse 100 100 100 Oximetry 10/04/16 10/04/16 10/04/16 09:30 09:40 09:50 Temperature Pulse Rate 76 73 Pulse Rate [ Anterior Bilateral Throughout] Respiratory 34 H 30 H 29 H Rate Respiratory Rate [Anterior Bilateral Throughout] Blood Pressure 99/59 99/59 99/59 O2 Sat by Pulse 93 99 100 Oximetry 10/04/16 10/04/16 10/04/16 10:00 10:10 10:20 Temperature Pulse Rate 73 71 72 Pulse Rate [ Anterior Bilateral Throughout] Respiratory 26 H 30 H 30 H Rate Respiratory Rate [Anterior Bilateral Throughout] Blood Pressure 99/49 99/49 99/49 O2 Sat by Pulse 99 100 100 Oximetry 10/04/16 10/04/16 10/04/16 10:22 10:30 10:40 Temperature Pulse Rate 71 78 73 Pulse Rate [ Anterior Bilateral Throughout] Respiratory 30 H 30 H Rate Respiratory Rate [Anterior Bilateral Throughout] Blood Pressure 99/49 102/49 102/49 O2 Sat by Pulse 100 100 100 Oximetry 10/04/16 10/04/16 10/04/16 10:50 11:00 11:10 Temperature Pulse Rate 71 Pulse Rate [ Anterior Bilateral Throughout] Respiratory 30 H Rate Respiratory Rate [Anterior Bilateral Throughout] Blood Pressure 102/49 102/49 102/49 O2 Sat by Pulse 100 Oximetry 10/04/16 10/04/16 10/04/16 12:00 12:10 12:20 Temperature 97.9 F Pulse Rate 92 H 80 77 Pulse Rate [ Anterior Bilateral Throughout] Respiratory 30 H 30 H 27 H Rate Respiratory Rate [Anterior Bilateral Throughout] Blood Pressure 98/45 98/45 98/45 O2 Sat by Pulse 85 96 97 Oximetry 10/04/16 10/04/16 10/04/16 12:30 12:36 12:40 Temperature Pulse Rate 74 71 69 Pulse Rate [ Anterior Bilateral Throughout] Respiratory 30 H 30 H Rate Respiratory Rate [Anterior Bilateral Throughout] Blood Pressure 96/44 96/44 96/44 O2 Sat by Pulse 93 96 97 Oximetry 10/04/16 10/04/16 10/04/16 12:50 13:00 14:55 Temperature Pulse Rate 68 70 71 Pulse Rate [ Anterior Bilateral Throughout] Respiratory 30 H 30 H Rate Respiratory Rate [Anterior Bilateral Throughout] Blood Pressure 96/44 97/43 96/46 O2 Sat by Pulse 98 98 100 Oximetry 10/04/16 15:33 Temperature Pulse Rate 75 Pulse Rate [ Anterior Bilateral Throughout] Respiratory Rate Respiratory Rate [Anterior Bilateral Throughout] Blood Pressure O2 Sat by Pulse 98 Oximetry - Labs CBC & Chem 7: 10/04/16 04:00 10/04/16 04:03 Labs: Abnormal lab results 10/03/16 10/03/16 10/03/16 Range/Units 15:54 15:54 16:58 WBC (4.5-11.0) K/mm3 RBC (3.65-5.03) M/mm3 Hgb (10.1-14.3) gm/dl Hct (30.3-42.9) % MCH (28-32) pg RDW (13.2-15.2) % Plt Count (140-440) K/mm3 Lymphocytes % (Manual) (13.4-35.0) % Eosinophils % (Manual) (0.0-4.3) % Nucleated RBC % (0.0-0.9) % Seg Neutrophils # Man (1.8-7.7) K/mm3 Monocytes # (Manual) (0.0-0.8) K/mm3 Eosinophils # (Manual) (0.0-0.4) K/mm3 POC ABG pH (7.35-7.45) POC ABG pCO2 (35-45) POC ABG pO2 (80-105) BUN (7-17) mg/dL Creatinine (0.7-1.2) mg/dL Glucose (65-100) mg/dL POC Glucose 138 H (70-105) Total Protein (6.3-8.2) g/dL Albumin (3.9-5) g/dL Urine WBC (Auto) 21.0 H (0.0-6.0) /HPF Urine Creatinine 63.2 H (0.1-20.0) mg/dL Urine Total Protein 67 H (5-11.8) mg/dL Vancomycin Trough (5.0-20.0) ug/mL 10/03/16 10/03/16 10/04/16 Range/Units 21:37 23:44 04:00 WBC 30.3 H (4.5-11.0) K/mm3 RBC 2.86 L (3.65-5.03) M/mm3 Hgb 7.3 L (10.1-14.3) gm/dl Hct 22.6 L (30.3-42.9) % MCH 25 L (28-32) pg RDW 19.6 H (13.2-15.2) % Plt Count 125 L (140-440) K/mm3 Lymphocytes % (Manual) 12.0 L (13.4-35.0) % Eosinophils % (Manual) 5.0 H (0.0-4.3) % Nucleated RBC % 30.0 H (0.0-0.9) % Seg Neutrophils # Man 12.7 H (1.8-7.7) K/mm3 Monocytes # (Manual) 1.2 H (0.0-0.8) K/mm3 Eosinophils # (Manual) 1.5 H (0.0-0.4) K/mm3 POC ABG pH 7.271 L (7.35-7.45) POC ABG pCO2 61.7 H (35-45) POC ABG pO2 77 L (80-105) BUN (7-17) mg/dL Creatinine (0.7-1.2) mg/dL Glucose (65-100) mg/dL POC Glucose 130 H (70-105) Total Protein (6.3-8.2) g/dL Albumin (3.9-5) g/dL Urine WBC (Auto) (0.0-6.0) /HPF Urine Creatinine (0.1-20.0) mg/dL Urine Total Protein (5-11.8) mg/dL Vancomycin Trough (5.0-20.0) ug/mL 10/04/16 10/04/16 10/04/16 Range/Units 04:03 06:02 12:29 WBC (4.5-11.0) K/mm3 RBC (3.65-5.03) M/mm3 Hgb (10.1-14.3) gm/dl Hct (30.3-42.9) % MCH (28-32) pg RDW (13.2-15.2) % Plt Count (140-440) K/mm3 Lymphocytes % (Manual) (13.4-35.0) % Eosinophils % (Manual) (0.0-4.3) % Nucleated RBC % (0.0-0.9) % Seg Neutrophils # Man (1.8-7.7) K/mm3 Monocytes # (Manual) (0.0-0.8) K/mm3 Eosinophils # (Manual) (0.0-0.4) K/mm3 POC ABG pH 7.248 L (7.35-7.45) POC ABG pCO2 62.3 H (35-45) POC ABG pO2 59 L (80-105) BUN 40 H (7-17) mg/dL Creatinine 1.7 H (0.7-1.2) mg/dL Glucose 110 H (65-100) mg/dL POC Glucose 123 H (70-105) Total Protein 5.6 L (6.3-8.2) g/dL Albumin 2.1 L (3.9-5) g/dL Urine WBC (Auto) (0.0-6.0) /HPF Urine Creatinine (0.1-20.0) mg/dL Urine Total Protein (5-11.8) mg/dL Vancomycin Trough (5.0-20.0) ug/mL 10/04/16 10/04/16 Range/Units 12:39 15:14 WBC (4.5-11.0) K/mm3 RBC (3.65-5.03) M/mm3 Hgb (10.1-14.3) gm/dl Hct (30.3-42.9) % MCH (28-32) pg RDW (13.2-15.2) % Plt Count (140-440) K/mm3 Lymphocytes % (Manual) (13.4-35.0) % Eosinophils % (Manual) (0.0-4.3) % Nucleated RBC % (0.0-0.9) % Seg Neutrophils # Man (1.8-7.7) K/mm3 Monocytes # (Manual) (0.0-0.8) K/mm3 Eosinophils # (Manual) (0.0-0.4) K/mm3 POC ABG pH (7.35-7.45) POC ABG pCO2 (35-45) POC ABG pO2 109 H (80-105) BUN (7-17) mg/dL Creatinine (0.7-1.2) mg/dL Glucose (65-100) mg/dL POC Glucose (70-105) Total Protein (6.3-8.2) g/dL Albumin (3.9-5) g/dL Urine WBC (Auto) (0.0-6.0) /HPF Urine Creatinine (0.1-20.0) mg/dL Urine Total Protein (5-11.8) mg/dL Vancomycin Trough 45.5 H (5.0-20.0) ug/mL
[2016-10-04] MEDS: fentaNYL DRIP Premix 2,000 MCG/100 ML BAG IV SCH (15:57)
[2016-10-04 21:13] LABS: ISTAT Base Excess -2; ISTAT HCO3 23.9; ISTAT PCO2 44.3 (35-45); ISTAT PH 7.341 (7.35-7.45); ISTAT PO2 47 (80-105); ISTAT SO2 80; ISTAT TCO2 25
--- NOTE | 2016-10-04 21:36 | Consultation ---
History of Present Illness - Reason for Consult Consult date: 10/04/16 - History of Present Illness Patient seen/examined,resting in bed, on the vent.record reviewed. No family at the bed side. Past History Past Medical History: anemia (sickle cell anemia) Social history: no significant social history Family history: no significant family history Medications and Allergies Allergies Allergy/AdvReac Type Severity Reaction Status Date / Time No Known Allergies Allergy Unverified 10/13/13 13:21 Home Medications Medication Instructions Recorded Confirmed Last Taken Type Folic Acid [Folvite] 1 mg PO QDAY 10/13/13 09/18/16 09/18/16 History oxyCODONE /ACETAMINOPHEN [Percocet 1 tab PO Q6HR PRN #10 tablet 10/13/1309/18/16 Rx 5/325 mg] Promethazine [Phenergan] 25 mg PO Q6H PRN 08/16/14 09/18/16 09/18/16 History valACYclovir [Valtrex] 500 mg PO DAILY 08/16/14 09/18/16 09/18/16 History Active Meds: Active Medications Acetaminophen (Tylenol) 650 mg PO Q4H PRN PRN Reason: Pain MILD(1-3)/Fever >100.5/PALACIOS Last Admin: 10/02/16 20:06 Dose: 650 mg Albuterol/Ipratropium (Duoneb 0.5 Mg-3 Mg/3 Ml Soln) 1 ampul IH Q6HRT [facility] Last Admin: 10/04/16 20:04 Dose: 1 ampul Lipase/Protease/Amylase (Pancrejacinto Dr 10,500 Unit) 1 each FEEDTUBE PRN PRN PRN Reason: For Clogged Feeding Tube Arformoterol Tartrate (Brovana Nebu) 15 mcg IH Q12HRT [facility] Last Admin: 10/04/16 20:04 Dose: 15 mcg Aspirin (Aspirin) 325 mg PO QDAY [facility] Last Admin: 10/04/16 09:53 Dose: 325 mg Budesonide (Pulmicort) 0.5 mg IH Q12HRT [facility] Last Admin: 10/04/16 20:04 Dose: 0.5 mg Diphenhydramine HCl (Benadryl) 12.5 mg IV Q4H PRN PRN Reason: Itching Last Admin: 09/30/16 07:02 Dose: 12.5 mg Enoxaparin Sodium (Lovenox) 40 mg SUB-Q QDAY [facility] Last Admin: 10/04/16 09:52 Dose: 40 mg Famotidine (Pepcid) 20 mg PO BID [facility] Last Admin: 10/04/16 09:52 Dose: 20 mg Folic Acid (Folvite) 1 mg PO QDAY [facility] Last Admin: 10/04/16 09:52 Dose: 1 mg Hydrophilic Ointment (Vaseline Lip Therapy) 1 applic TP Q2HR PRN PRN Reason: Dry Lips Fentanyl Citrate (Fentanyl Drip Premix) 2,000 mcg in 100 mls @ 4.649 mls/hr IV TITR [facility]; 1 MCG/KG/HR PRN Reason: Protocol Last Admin: 10/04/16 15:57 Dose: 1 mcg/kg/hr, 4.649 mls/hr Propofol (Diprivan 10 Mg/Ml) 1,000 mg in 100 mls @ 2.79 mls/hr IV TITR [facility]; 5 MCG/KG/MIN PRN Reason: Protocol Midazolam HCl 100 mg/ Sodium (Chloride) 100 mls @ 2 mls/hr IV TITR [facility]; 2 MG/HR PRN Reason: Protocol Last Admin: 10/04/16 12:54 Dose: 2 mg/hr, 2 mls/hr Cefepime HCl (Maxipime/Ns 1 Gm/100 Ml) 1 gm in 100 mls @ 200 mls/hr IV Q8HR [facility] PRN Reason: Protocol Last Admin: 10/04/16 14:00 Dose: 200 mls/hr Sodium Chloride (Nacl 0.9% 1000 Ml) 1,000 mls @ 50 mls/hr IV DIRECT [facility] Last Admin: 10/04/16 13:04 Dose: 50 mls/hr Insulin Human Regular (Novolin R) 0 units SUB-Q Q6HR [facility] PRN Reason: Protocol Last Admin: 10/04/16 17:56 Dose: Not Given Metronidazole (Flagyl) 500 mg FEEDTUBE Q8HR [facility] Last Admin: 10/04/16 14:30 Dose: 500 mg Multi-Ingred Cream/Lotion/Oil/Oint (Artificial Tears Ophth Oint) 1 applic OU Q4HR PRN PRN Reason: Dry Eye(s) Multivitamins (Theragran Tab) 1 each PO QDAY [facility] Last Admin: 10/04/16 09:52 Dose: 1 each Ondansetron HCl (Zofran) 4 mg IV Q8H PRN PRN Reason: Nausea And Vomiting Last Admin: 09/29/16 23:07 Dose: 4 mg Promethazine HCl (Phenergan) 25 mg OK Q6H PRN PRN Reason: Nausea And Vomiting Last Admin: 09/25/16 22:05 Dose: 25 mg Senna (Senokot) 17.2 mg PO DAILY [facility] Last Admin: 10/04/16 09:52 Dose: 17.2 mg Simple Syrup (Simple Syrup) 15 ml FEEDTUBE PRN PRN PRN Reason: Hypoglycemia Simple Syrup (Simple Syrup) 30 ml FEEDTUBE PRN PRN PRN Reason: Hypoglycemia Sodium Bicarbonate (Sodium Bicarbonate) 325 mg FEEDTUBE PRN PRN PRN Reason: For Clogged Feeding Tube Sodium Chloride (Sodium Chloride Flush Syringe 10 Ml) 10 ml IV PRN PRN PRN Reason: LINE FLUSH Tramadol HCl (Ultram) 50 mg PO Q4H PRN PRN Reason: Pain, Moderate (4-6) Last Admin: 09/26/16 20:45 Dose: 50 mg Valacyclovir HCl (Valtrex) 500 mg PO DAILY [facility] Last Admin: 10/04/16 09:53 Dose: 500 mg Vancomycin HCl (Vancomycin Pharmacy To Dose) 1 each IV PKCONSULT [facility] PRN Reason: Protocol Zolpidem Tartrate (Ambien) 5 mg PO QHS PRN PRN Reason: Sleep Review of Systems Constitutional: other (on the vent, sedated.) Breasts: deferred Respiratory: other (on full vent support/sedated.) Neurological: other (same as above.) Exam - Constitutional Vitals: Temp Pulse Resp BP Pulse Ox 98.9 F 107 H 26 H 149/67 89 10/04/16 20:00 10/04/16 21:10 10/04/16 21:10 10/04/16 21:10 10/04/16 21:10 General appearance: Present: severe distress, well-nourished - EENT Eyes: Present: PERRL ENT: hearing intact, clear oral mucosa - Neck Neck: Present: supple, normal ROM - Respiratory Respiratory: bilateral: other (full vent support.) - Cardiovascular Heart Sounds: Present: S1 & S2. Absent: rub, click - Extremities Extremities: pulses symmetrical, No edema Peripheral Pulses: within normal limits - Abdominal General gastrointestinal: Present: soft, non-tender, non-distended, normal bowel sounds Female genitourinary: Present: deferred - Rectal Rectal Exam: deferred - Integumentary Integumentary: Present: clear, warm, dry Results - Labs CBC & Chem 7: 10/04/16 04:00 10/04/16 04:03 Labs: Abnormal lab results 10/03/16 10/03/16 10/04/16 Range/Units 21:37 23:44 04:00 WBC 30.3 H (4.5-11.0) K/mm3 RBC 2.86 L (3.65-5.03) M/mm3 Hgb 7.3 L (10.1-14.3) gm/dl Hct 22.6 L (30.3-42.9) % MCH 25 L (28-32) pg RDW 19.6 H (13.2-15.2) % Plt Count 125 L (140-440) K/mm3 Lymphocytes % (Manual) 12.0 L (13.4-35.0) % Eosinophils % (Manual) 5.0 H (0.0-4.3) % Nucleated RBC % 30.0 H (0.0-0.9) % Seg Neutrophils # Man 12.7 H (1.8-7.7) K/mm3 Monocytes # (Manual) 1.2 H (0.0-0.8) K/mm3 Eosinophils # (Manual) 1.5 H (0.0-0.4) K/mm3 POC ABG pH 7.271 L (7.35-7.45) POC ABG pCO2 61.7 H (35-45) POC ABG pO2 77 L (80-105) BUN (7-17) mg/dL Creatinine (0.7-1.2) mg/dL Glucose (65-100) mg/dL POC Glucose 130 H (70-105) Total Protein (6.3-8.2) g/dL Albumin (3.9-5) g/dL Vancomycin Trough (5.0-20.0) ug/mL 10/04/16 10/04/16 10/04/16 Range/Units 04:03 06:02 12:29 WBC (4.5-11.0) K/mm3 RBC (3.65-5.03) M/mm3 Hgb (10.1-14.3) gm/dl Hct (30.3-42.9) % MCH (28-32) pg RDW (13.2-15.2) % Plt Count (140-440) K/mm3 Lymphocytes % (Manual) (13.4-35.0) % Eosinophils % (Manual) (0.0-4.3) % Nucleated RBC % (0.0-0.9) % Seg Neutrophils # Man (1.8-7.7) K/mm3 Monocytes # (Manual) (0.0-0.8) K/mm3 Eosinophils # (Manual) (0.0-0.4) K/mm3 POC ABG pH 7.248 L (7.35-7.45) POC ABG pCO2 62.3 H (35-45) POC ABG pO2 59 L (80-105) BUN 40 H (7-17) mg/dL Creatinine 1.7 H (0.7-1.2) mg/dL Glucose 110 H (65-100) mg/dL POC Glucose 123 H (70-105) Total Protein 5.6 L (6.3-8.2) g/dL Albumin 2.1 L (3.9-5) g/dL Vancomycin Trough (5.0-20.0) ug/mL 10/04/16 10/04/16 10/04/16 Range/Units 12:39 15:14 17:45 WBC (4.5-11.0) K/mm3 RBC (3.65-5.03) M/mm3 Hgb (10.1-14.3) gm/dl Hct (30.3-42.9) % MCH (28-32) pg RDW (13.2-15.2) % Plt Count (140-440) K/mm3 Lymphocytes % (Manual) (13.4-35.0) % Eosinophils % (Manual) (0.0-4.3) % Nucleated RBC % (0.0-0.9) % Seg Neutrophils # Man (1.8-7.7) K/mm3 Monocytes # (Manual) (0.0-0.8) K/mm3 Eosinophils # (Manual) (0.0-0.4) K/mm3 POC ABG pH (7.35-7.45) POC ABG pCO2 (35-45) POC ABG pO2 109 H (80-105) BUN (7-17) mg/dL Creatinine (0.7-1.2) mg/dL Glucose (65-100) mg/dL POC Glucose 124 H (70-105) Total Protein (6.3-8.2) g/dL Albumin (3.9-5) g/dL Vancomycin Trough 45.5 H (5.0-20.0) ug/mL 10/04/16 Range/Units 20:13 WBC (4.5-11.0) K/mm3 RBC (3.65-5.03) M/mm3 Hgb (10.1-14.3) gm/dl Hct (30.3-42.9) % MCH (28-32) pg RDW (13.2-15.2) % Plt Count (140-440) K/mm3 Lymphocytes % (Manual) (13.4-35.0) % Eosinophils % (Manual) (0.0-4.3) % Nucleated RBC % (0.0-0.9) % Seg Neutrophils # Man (1.8-7.7) K/mm3 Monocytes # (Manual) (0.0-0.8) K/mm3 Eosinophils # (Manual) (0.0-0.4) K/mm3 POC ABG pH 7.341 L (7.35-7.45) POC ABG pCO2 (35-45) POC ABG pO2 47 L (80-105) BUN (7-17) mg/dL Creatinine (0.7-1.2) mg/dL Glucose (65-100) mg/dL POC Glucose (70-105) Total Protein (6.3-8.2) g/dL Albumin (3.9-5) g/dL Vancomycin Trough (5.0-20.0) ug/mL Assessment and Plan - Patient Problems (1) Arthritis of left hip Current Visit: Yes Status: Deleted Plan to address problem: Follow post surgical management. (2) Avascular necrosis of bone of left hip Current Visit: Yes Status: Chronic Plan to address problem: Post surgical pain management., post surgical anticoagulation. continue same. (3) Sepsis Current Visit: Yes Status: Acute Qualifiers: Sepsis type: sepsis due to unspecified organism Qualified Code(s): A41.9 - Sepsis, unspecified organism Plan to address problem: SEE w/up in the notes. No improvement so far. (4) Sleep apnea syndrome Current Visit: Yes Status: Acute Qualifiers: Sleep apnea type: S Plan to address problem: oxygen/BIPAP management. Patient now in full resp failure, and on the vent. (5) UTI (urinary tract infection) Current Visit: Yes Status: Acute Qualifiers: Urinary tract infection type: U Hematuria presence: H Indwelling urinary catheter type: I Encounter type: E Plan to address problem: patient already on abx iv. may need culture sent. (6) Anemia Current Visit: Yes Status: Acute Qualifiers: Anemia type: A Iron deficiency anemia type: I Vitamin B12 deficiency anemia type: V Folate deficiency anemia type: F Bone marrow failure anemia type: B Hemolytic anemia type: H Other causes of anemia: O Plan to address problem: will transfuse if hgb 7.5 or less. no new issues at this time.
[2016-10-05] MEDS: fentaNYL DRIP Premix 2,000 MCG/100 ML BAG IV SCH ×2 (02:10→11:58)
[2016-10-05] MEDS: DUONEB 0.5 MG-3 MG/3 ML SOLN IH SCH ×4 (02:33→19:52)
[2016-10-05 04:21] LABS: ISTAT Base Excess -2; ISTAT HCO3 23.9; ISTAT PCO2 45.3 (35-45); ISTAT PO2 53 (80-105); ISTAT SO2 85; ISTAT TCO2 25
[2016-10-05 05:25] LABS: Hematocrit 23.5 % (30.3-42.9); Hemoglobin 7.3 gm/dl (10.1-14.3); Mean Corpuscular HGB Conc 31 % (30-34); Mean Corpuscular Volume 79 fl (79-97); Platelet Count 165 K/mm3 (140-440); Red Blood Count 2.99 M/mm3 (3.65-5.03); Red Cell Distribution Width 19.6 % (13.2-15.2)
[2016-10-05] MEDS: MAXIPIME/NS 1 GM/100 ML 1 GM/100 ML BAG IV SCH (05:27)
[2016-10-05] MEDS: FLAGYL FEEDTUBE SCH ×3 (05:28→22:00)
[2016-10-05 05:41] LABS: Mean Corpuscular Hemoglobin 25 pg (28-32); White Blood Count 36.1 K/mm3 (4.5-11.0)
[2016-10-05 05:43] LABS: BUN/Creatinine Ratio 30.62; Potassium 3.9 mmol/L (3.6-5.0)
[2016-10-05] MEDS: BROVANA NEBU IH SCH ×2 (08:37→19:52)
[2016-10-05] MEDS: PULMICORT IH SCH ×2 (08:37→19:52)
--- NOTE | 2016-10-05 09:31 | Progress Note ---
Assessment and Plan 1) Avascular necrosis of bone of left hip Current Visit: Yes Status: Chronic Plan to address problem: S/P Athroplasty to left hip on 09/25/16 (2) Acute respiratory failure with hypoxia Current Visit: Yes Status: Acute Plan to address problem: ARDS, On vent support as per pulmonary (3) Acute renal failure due to tubular necrosis Current Visit: Yes Status: Acute Plan to address problem: stable Cr she has minimal dilation in central collectin systmen bilaterally but unlikely any obstruction since she non oliguric will d/c IVF may need start diuretics due to volume overload Avoid Nephrotoxic agents Renally dose medications Monitor I/O's (4) Sepsis syndrome Current Visit: Yes Status: Acute Plan to address problem: ID on board. On IV Cefepime and flagyl (5) Acute hypernatremia Current Visit: Yes Status: Acute Plan to address problem: resolved with water flushes Subjective Date of service: 10/05/16 Principal diagnosis: Acute Hypoxemic Respiratory Failure; ARDS Interval history: sedated and intubated, no family at bedside Objective - Vital Signs Vital signs: Vital Signs - 12hr 10/04/16 10/04/16 10/04/16 21:30 21:40 21:50 Temperature Pulse Rate 107 H 97 H 94 H Pulse Rate [ Anterior Bilateral Throughout] Pulse Rate [ Apical] Respiratory 28 H 26 H 28 H Rate Respiratory Rate [Anterior Bilateral Throughout] Blood Pressure 128/73 128/73 128/73 O2 Sat by Pulse 91 96 96 Oximetry 10/04/16 10/04/16 10/04/16 22:00 22:10 22:20 Temperature Pulse Rate 92 H 92 H 90 Pulse Rate [ Anterior Bilateral Throughout] Pulse Rate [ Apical] Respiratory 31 H 23 19 Rate Respiratory Rate [Anterior Bilateral Throughout] Blood Pressure 115/54 115/54 115/54 O2 Sat by Pulse 97 97 97 Oximetry 10/04/16 10/04/16 10/04/16 22:30 22:40 22:50 Temperature Pulse Rate 91 H 88 87 Pulse Rate [ Anterior Bilateral Throughout] Pulse Rate [ Apical] Respiratory 25 H 19 24 Rate Respiratory Rate [Anterior Bilateral Throughout] Blood Pressure 125/54 125/54 125/54 O2 Sat by Pulse 94 95 92 Oximetry 10/04/16 10/04/16 10/04/16 23:00 23:10 23:16 Temperature Pulse Rate 88 87 87 Pulse Rate [ Anterior Bilateral Throughout] Pulse Rate [ Apical] Respiratory 23 22 19 Rate Respiratory Rate [Anterior Bilateral Throughout] Blood Pressure 114/51 114/51 114/51 O2 Sat by Pulse 94 94 94 Oximetry 10/04/16 10/04/16 10/04/16 23:20 23:23 23:30 Temperature 98.5 F Pulse Rate 86 86 Pulse Rate [ Anterior Bilateral Throughout] Pulse Rate [ Apical] Respiratory 21 25 H Rate Respiratory Rate [Anterior Bilateral Throughout] Blood Pressure 114/51 110/56 O2 Sat by Pulse 92 93 Oximetry 10/04/16 10/04/16 10/04/16 23:39 23:40 23:42 Temperature Pulse Rate 102 H 98 H Pulse Rate [ Anterior Bilateral Throughout] Pulse Rate [ 82 Apical] Respiratory 30 H 28 H Rate Respiratory Rate [Anterior Bilateral Throughout] Blood Pressure 110/56 110/56 O2 Sat by Pulse 80 L 97 Oximetry 10/04/16 10/05/16 10/05/16 23:50 00:00 00:10 Temperature Pulse Rate 99 H 102 H 106 H Pulse Rate [ Anterior Bilateral Throughout] Pulse Rate [ Apical] Respiratory 27 H 29 H 31 H Rate Respiratory Rate [Anterior Bilateral Throughout] Blood Pressure 110/56 136/71 136/71 O2 Sat by Pulse 90 85 87 Oximetry 10/05/16 10/05/16 10/05/16 00:20 00:30 00:40 Temperature Pulse Rate 102 H 102 H 103 H Pulse Rate [ Anterior Bilateral Throughout] Pulse Rate [ Apical] Respiratory 31 H 30 H 20 Rate Respiratory Rate [Anterior Bilateral Throughout] Blood Pressure 110/56 128/68 128/68 O2 Sat by Pulse 91 90 90 Oximetry 10/05/16 10/05/16 10/05/16 00:50 01:00 01:10 Temperature Pulse Rate 102 H 102 H 104 H Pulse Rate [ Anterior Bilateral Throughout] Pulse Rate [ Apical] Respiratory 26 H 27 H 28 H Rate Respiratory Rate [Anterior Bilateral Throughout] Blood Pressure 136/71 132/61 132/61 O2 Sat by Pulse 89 88 92 Oximetry 10/05/16 10/05/16 10/05/16 01:20 01:30 01:40 Temperature Pulse Rate 108 H 102 H 102 H Pulse Rate [ Anterior Bilateral Throughout] Pulse Rate [ Apical] Respiratory 31 H 29 H 29 H Rate Respiratory Rate [Anterior Bilateral Throughout] Blood Pressure 128/68 127/63 127/63 O2 Sat by Pulse 92 89 91 Oximetry 10/05/16 10/05/16 10/05/16 01:50 02:00 02:10 Temperature Pulse Rate 102 H 100 H 103 H Pulse Rate [ Anterior Bilateral Throughout] Pulse Rate [ Apical] Respiratory 29 H 28 H 28 H Rate Respiratory Rate [Anterior Bilateral Throughout] Blood Pressure 127/63 124/66 124/66 O2 Sat by Pulse 91 90 90 Oximetry 10/05/16 10/05/16 10/05/16 02:20 02:30 02:33 Temperature Pulse Rate 106 H 103 H Pulse Rate [ 103 H Anterior Bilateral Throughout] Pulse Rate [ Apical] Respiratory 30 H 30 H Rate Respiratory 34 H Rate [Anterior Bilateral Throughout] Blood Pressure 124/66 123/64 O2 Sat by Pulse 90 96 Oximetry 10/05/16 10/05/16 10/05/16 02:40 02:43 02:50 Temperature Pulse Rate 105 H 108 H Pulse Rate [ 106 H Anterior Bilateral Throughout] Pulse Rate [ Apical] Respiratory 25 H 30 H Rate Respiratory 33 H Rate [Anterior Bilateral Throughout] Blood Pressure 123/64 123/64 O2 Sat by Pulse 96 92 Oximetry 10/05/16 10/05/16 10/05/16 03:00 03:10 03:20 Temperature Pulse Rate 110 H 106 H 109 H Pulse Rate [ Anterior Bilateral Throughout] Pulse Rate [ Apical] Respiratory 25 H 25 H 29 H Rate Respiratory Rate [Anterior Bilateral Throughout] Blood Pressure 130/69 130/69 130/69 O2 Sat by Pulse 88 92 89 Oximetry 10/05/16 10/05/16 10/05/16 03:30 03:40 03:42 Temperature Pulse Rate 107 H 109 H 109 H Pulse Rate [ Anterior Bilateral Throughout] Pulse Rate [ Apical] Respiratory 33 H 32 H Rate Respiratory Rate [Anterior Bilateral Throughout] Blood Pressure 135/70 135/70 135/70 O2 Sat by Pulse 88 Oximetry 10/05/16 10/05/16 10/05/16 03:50 04:00 04:10 Temperature 98.4 F Pulse Rate 111 H 106 H 105 H Pulse Rate [ Anterior Bilateral Throughout] Pulse Rate [ 89 Apical] Respiratory 30 H 32 H 29 H Rate Respiratory Rate [Anterior Bilateral Throughout] Blood Pressure 135/70 142/73 142/73 O2 Sat by Pulse 89 87 92 Oximetry 10/05/16 10/05/16 10/05/16 04:20 04:30 04:40 Temperature Pulse Rate 105 H 105 H 104 H Pulse Rate [ Anterior Bilateral Throughout] Pulse Rate [ Apical] Respiratory 32 H 31 H 30 H Rate Respiratory Rate [Anterior Bilateral Throughout] Blood Pressure 142/73 134/71 134/71 O2 Sat by Pulse 92 85 92 Oximetry 10/05/16 10/05/16 10/05/16 04:50 05:00 05:10 Temperature Pulse Rate 105 H 106 H 104 H Pulse Rate [ Anterior Bilateral Throughout] Pulse Rate [ Apical] Respiratory 32 H 30 H 32 H Rate Respiratory Rate [Anterior Bilateral Throughout] Blood Pressure 134/71 123/66 123/66 O2 Sat by Pulse 91 88 87 Oximetry 10/05/16 10/05/16 10/05/16 05:20 05:30 05:40 Temperature Pulse Rate 106 H 108 H 109 H Pulse Rate [ Anterior Bilateral Throughout] Pulse Rate [ Apical] Respiratory 26 H 30 H 26 H Rate Respiratory Rate [Anterior Bilateral Throughout] Blood Pressure 123/66 136/66 136/66 O2 Sat by Pulse 89 87 96 Oximetry 10/05/16 10/05/16 10/05/16 05:50 06:00 06:08 Temperature Pulse Rate 110 H 108 H 109 H Pulse Rate [ Anterior Bilateral Throughout] Pulse Rate [ Apical] Respiratory 32 H 32 H Rate Respiratory Rate [Anterior Bilateral Throughout] Blood Pressure 136/66 148/70 148/70 O2 Sat by Pulse 87 87 92 Oximetry 10/05/16 10/05/16 10/05/16 06:10 06:20 06:30 Temperature Pulse Rate 106 H 102 H 102 H Pulse Rate [ Anterior Bilateral Throughout] Pulse Rate [ Apical] Respiratory 27 H 24 27 H Rate Respiratory Rate [Anterior Bilateral Throughout] Blood Pressure 148/70 148/70 125/62 O2 Sat by Pulse 94 96 93 Oximetry 10/05/16 10/05/16 10/05/16 06:40 06:50 07:00 Temperature Pulse Rate 102 H 107 H 106 H Pulse Rate [ Anterior Bilateral Throughout] Pulse Rate [ Apical] Respiratory 26 H 31 H 31 H Rate Respiratory Rate [Anterior Bilateral Throughout] Blood Pressure 125/62 125/62 140/73 O2 Sat by Pulse 96 94 91 Oximetry 10/05/16 10/05/16 10/05/16 07:10 07:20 07:30 Temperature Pulse Rate 107 H 108 H 107 H Pulse Rate [ Anterior Bilateral Throughout] Pulse Rate [ Apical] Respiratory 30 H 32 H 32 H Rate Respiratory Rate [Anterior Bilateral Throughout] Blood Pressure 140/73 140/73 145/74 O2 Sat by Pulse 92 92 90 Oximetry 10/05/16 10/05/16 10/05/16 07:40 07:42 07:50 Temperature 98.3 F Pulse Rate 106 H 112 H Pulse Rate [ Anterior Bilateral Throughout] Pulse Rate [ Apical] Respiratory 31 H 27 H Rate Respiratory Rate [Anterior Bilateral Throughout] Blood Pressure 145/74 145/74 O2 Sat by Pulse 92 92 Oximetry 10/05/16 10/05/16 10/05/16 08:00 08:10 08:20 Temperature Pulse Rate 108 H 113 H 111 H Pulse Rate [ 114 H Anterior Bilateral Throughout] Pulse Rate [ Apical] Respiratory 32 H 33 H 15 Rate Respiratory 24 Rate [Anterior Bilateral Throughout] Blood Pressure 126/72 126/72 126/72 O2 Sat by Pulse 89 91 88 Oximetry 10/05/16 10/05/16 10/05/16 08:30 08:40 08:42 Temperature Pulse Rate 114 H 115 H 115 H Pulse Rate [ Anterior Bilateral Throughout] Pulse Rate [ Apical] Respiratory 29 H 22 Rate Respiratory Rate [Anterior Bilateral Throughout] Blood Pressure 128/74 128/74 128/74 O2 Sat by Pulse 84 92 90 Oximetry 10/05/16 10/05/16 08:50 09:00 Temperature Pulse Rate 116 H 115 H Pulse Rate [ Anterior Bilateral Throughout] Pulse Rate [ Apical] Respiratory 27 H 36 H Rate Respiratory Rate [Anterior Bilateral Throughout] Blood Pressure 128/74 143/67 O2 Sat by Pulse 90 85 Oximetry - General Appearance General appearance: sedated on ventilator, intubated EENT: ATNC, PERRL, mucous membranes moist Neck: no JVD, no carotid bruit Respiratory: Present: Rales, Ronchi Cardiology: regular, S1S2 Gastrointestinal: normoactive bowel sounds, no tenderness, no distended, no masses Integumentary: no rash, warm and dry Neurologic: other (sedated) Musculoskeletal: other (1+ pitting edema in all ext) Psychiatric: other (sedated and intubated) - Lab 10/05/16 01:27 10/05/16 01:27 Most recent lab results Calcium 9.0 mg/dL (8.4-10.2) 10/05/16 01:27 Phosphorus 3.60 mg/dL (2.5-4.5) 10/04/16 04:03 Urine Creatinine 63.2 mg/dL (0.1-20.0) H 10/03/16 15:54 Urine Sodium 20 mEq/L 10/03/16 15:54 Urine Total Protein 67 mg/dL (5-11.8) H 10/03/16 15:54
[2016-10-05] MEDS: VALTREX PO SCH (11:00)
[2016-10-05] MEDS: THERAGRAN Tab PO SCH (11:00)
[2016-10-05] MEDS: FOLVITE PO SCH (11:00)
[2016-10-05] MEDS: SENOKOT PO SCH (11:00)
[2016-10-05] MEDS: LOVENOX SUB-Q SCH (11:00)
[2016-10-05] MEDS: PEPCID PO SCH ×2 (11:00→22:00)
[2016-10-05] MEDS: ASPIRIN PO SCH (11:00)
--- NOTE | 2016-10-05 11:45 | XRay Report ---
AP CHEST :10/05/16 CLINICAL: Intubated.Follow up respiratory failure. COMPARISON:The previous day. FINDINGS: The endotracheal tube is in satisfactory position. The feeding tube is satisfactory. Left PICC line tip is in the right atrium at the cavoatrial junction. The right Izdtcs-l-Vjih tip is in the SVC. Continued extensive diffuse confluent bilateral airspace disease with air bronchograms. The heart borders and the pulmonary vessels are obscured. No pneumothorax. IMPRESSION: No change.Diffuse multilobar bilateral confluent airspace disease.
--- NOTE | 2016-10-05 11:49 | Progress Note ---
Assessment and Plan - Patient Problems (1) Sepsis Current Visit: Yes Status: Acute Qualifiers: Sepsis type: sepsis due to unspecified organism Qualified Code(s): A41.9 - Sepsis, unspecified organism Plan to address problem: Apparent pulmonary origin, whether of a viral or bacterial etiology. Await sputum viral culture. Currently on suppressive dose Valtrex. Continue renally adjusted, broad antibiotics. (2) Acute respiratory failure with hypoxia Current Visit: Yes Status: Acute Plan to address problem: Per above. (3) Acute renal failure due to tubular necrosis Current Visit: Yes Status: Acute Plan to address problem: Elevated Vancomycin trough. Appreciate PK assistance in dosing. Will renally adjust antimicrobials. Subjective Date of service: 10/05/16 Principal diagnosis: Acute Hypoxemic Respiratory Failure; ARDS Interval history: Patient remains in ICU. Chest imaging shows bilateral opacities, pneumonia vs. pulmonary edema. Objective - Exam Narrative Exam: remains intubated in ICU, FiO2 80% - Constitutional Vitals: Vital Signs Temp Pulse Resp BP Pulse Ox 98.3 F 115 H 36 H 143/67 85 10/05/16 07:42 10/05/16 09:00 10/05/16 09:00 10/05/16 09:00 10/05/16 09:00 Temperature -Last 24 Hours Temperature 98.3 F Temperature 98.4 F Temperature 98.5 F Temperature 98.9 F Temperature 97.2 F Temperature 97.9 F General appearance: Present: mild distress, obese - Respiratory Respiratory: bilateral: CTA, negative: rhonchi, wheezing - Cardiovascular Rhythm: regular (tachycardic) Heart Sounds: Present: S1 & S2 Extremities: pulses intact, No edema Extremity abnormal: other (unremarkable left hip/ thigh exam, no drainage or inflammation) - Gastrointestinal General gastrointestinal: Present: soft, non-distended, normal bowel sounds - Labs CBC & Chem 7: 10/05/16 01:27 10/05/16 01:27 Labs: Abnormal lab results 10/04/16 10/04/16 10/04/16 Range/Units 12:29 12:39 15:14 WBC (4.5-11.0) K/mm3 RBC (3.65-5.03) M/mm3 Hgb (10.1-14.3) gm/dl Hct (30.3-42.9) % MCH (28-32) pg RDW (13.2-15.2) % POC ABG pH (7.35-7.45) POC ABG pCO2 (35-45) POC ABG pO2 109 H (80-105) BUN (7-17) mg/dL Creatinine (0.7-1.2) mg/dL Glucose (65-100) mg/dL POC Glucose 123 H (70-105) Vancomycin Trough 45.5 H (5.0-20.0) ug/mL Random Vancomycin (0-40.0) ug/mL 10/04/16 10/04/16 10/04/16 Range/Units 17:45 20:13 23:05 WBC (4.5-11.0) K/mm3 RBC (3.65-5.03) M/mm3 Hgb (10.1-14.3) gm/dl Hct (30.3-42.9) % MCH (28-32) pg RDW (13.2-15.2) % POC ABG pH 7.341 L (7.35-7.45) POC ABG pCO2 (35-45) POC ABG pO2 47 L (80-105) BUN (7-17) mg/dL Creatinine (0.7-1.2) mg/dL Glucose (65-100) mg/dL POC Glucose 124 H 127 H (70-105) Vancomycin Trough (5.0-20.0) ug/mL Random Vancomycin (0-40.0) ug/mL 10/05/16 10/05/16 10/05/16 Range/Units 01:27 01:27 03:50 WBC 36.1 H (4.5-11.0) K/mm3 RBC 2.99 L (3.65-5.03) M/mm3 Hgb 7.3 L (10.1-14.3) gm/dl Hct 23.5 L (30.3-42.9) % MCH 25 L (28-32) pg RDW 19.6 H (13.2-15.2) % POC ABG pH 7.330 L (7.35-7.45) POC ABG pCO2 45.3 H (35-45) POC ABG pO2 53 L (80-105) BUN 49 H (7-17) mg/dL Creatinine 1.6 H (0.7-1.2) mg/dL Glucose 112 H (65-100) mg/dL POC Glucose (70-105) Vancomycin Trough (5.0-20.0) ug/mL Random Vancomycin (0-40.0) ug/mL 10/05/16 10/05/16 Range/Units 05:00 05:30 WBC (4.5-11.0) K/mm3 RBC (3.65-5.03) M/mm3 Hgb (10.1-14.3) gm/dl Hct (30.3-42.9) % MCH (28-32) pg RDW (13.2-15.2) % POC ABG pH (7.35-7.45) POC ABG pCO2 (35-45) POC ABG pO2 (80-105) BUN (7-17) mg/dL Creatinine (0.7-1.2) mg/dL Glucose (65-100) mg/dL POC Glucose 141 H (70-105) Vancomycin Trough (5.0-20.0) ug/mL Random Vancomycin 43.6 H (0-40.0) ug/mL Microbiology 10/03/16 09:20 Peripheral/Venous Blood Culture - Preliminary NO GROWTH AFTER 48 HOURS 10/03/16 09:30 Picc Blood Culture - Preliminary NO GROWTH AFTER 48 HOURS 10/03/16 09:06 Urine,Catheterized - Indwelling Catheter Urine Culture - Preliminary 09/27/16 22:47 Peripheral/Venous Blood Culture - Final NO GROWTH AFTER 5 DAYS 09/27/16 22:47 Peripheral/Venous Blood Culture - Final NO GROWTH AFTER 5 DAYS 09/27/16 15:06 Peripheral/Venous Blood Culture - Final NO GROWTH AFTER 5 DAYS 09/27/16 14:40 Peripheral/Venous Blood Culture - Final NO GROWTH AFTER 5 DAYS 09/30/16 Unknown Tracheal Aspirate Sputum Culture - Final Active Medications Acetaminophen (Tylenol) 650 mg PO Q4H PRN PRN Reason: Pain MILD(1-3)/Fever >100.5/PALACIOS Last Admin: 10/02/16 20:06 Dose: 650 mg Albuterol/Ipratropium (Duoneb 0.5 Mg-3 Mg/3 Ml Soln) 1 ampul IH Q6HRT [facility] Last Admin: 10/05/16 08:40 Dose: Not Given Lipase/Protease/Amylase (Pancreaze Dr 10,500 Unit) 1 each FEEDTUBE PRN PRN PRN Reason: For Clogged Feeding Tube Arformoterol Tartrate (Brovana Nebu) 15 mcg IH Q12HRT [facility] Last Admin: 10/05/16 08:37 Dose: 15 mcg Aspirin (Aspirin) 325 mg PO QDAY [facility] Last Admin: 10/05/16 11:00 Dose: 325 mg Budesonide (Pulmicort) 0.5 mg IH Q12HRT [facility] Last Admin: 10/05/16 08:37 Dose: 0.5 mg Diphenhydramine HCl (Benadryl) 12.5 mg IV Q4H PRN PRN Reason: Itching Last Admin: 09/30/16 07:02 Dose: 12.5 mg Enoxaparin Sodium (Lovenox) 40 mg SUB-Q QDAY [facility] Last Admin: 10/05/16 11:00 Dose: 40 mg Famotidine (Pepcid) 20 mg PO BID [facility] Last Admin: 10/05/16 11:00 Dose: 20 mg Folic Acid (Folvite) 1 mg PO QDAY [facility] Last Admin: 10/05/16 11:00 Dose: 1 mg Hydrophilic Ointment (Vaseline Lip Therapy) 1 applic TP Q2HR PRN PRN Reason: Dry Lips Fentanyl Citrate (Fentanyl Drip Premix) 2,000 mcg in 100 mls @ 4.649 mls/hr IV TITR [facility]; 1 MCG/KG/HR PRN Reason: Protocol Last Admin: 10/05/16 11:58 Dose: 2 mcg/kg/hr, 9.299 mls/hr Propofol (Diprivan 10 Mg/Ml) 1,000 mg in 100 mls @ 2.79 mls/hr IV TITR [facility]; 5 MCG/KG/MIN PRN Reason: Protocol Midazolam HCl 100 mg/ Sodium (Chloride) 100 mls @ 2 mls/hr IV TITR [facility]; 2 MG/HR PRN Reason: Protocol Last Admin: 10/04/16 12:54 Dose: 2 mg/hr, 2 mls/hr Sodium Chloride (Nacl 0.9% 1000 Ml) 1,000 mls @ 50 mls/hr IV DIRECT [facility] Last Admin: 10/04/16 13:04 Dose: 50 mls/hr Cefepime HCl (Maxipime/Ns 2 Gm/100 Ml) 2 gm in 100 mls @ 200 mls/hr IV Q12HR [facility] PRN Reason: Protocol Insulin Human Regular (Novolin R) 0 units SUB-Q Q6HR [facility] PRN Reason: Protocol Last Admin: 10/05/16 05:35 Dose: Not Given Metronidazole (Flagyl) 500 mg FEEDTUBE Q8HR [facility] Last Admin: 10/05/16 05:28 Dose: 500 mg Multi-Ingred Cream/Lotion/Oil/Oint (Artificial Tears Ophth Oint) 1 applic OU Q4HR PRN PRN Reason: Dry Eye(s) Multivitamins (Theragran Tab) 1 each PO QDAY [facility] Last Admin: 10/05/16 11:00 Dose: 1 each Ondansetron HCl (Zofran) 4 mg IV Q8H PRN PRN Reason: Nausea And Vomiting Last Admin: 09/29/16 23:07 Dose: 4 mg Promethazine HCl (Phenergan) 25 mg WI Q6H PRN PRN Reason: Nausea And Vomiting Last Admin: 09/25/16 22:05 Dose: 25 mg Senna (Senokot) 17.2 mg PO DAILY [facility] Last Admin: 10/05/16 11:00 Dose: 17.2 mg Simple Syrup (Simple Syrup) 15 ml FEEDTUBE PRN PRN PRN Reason: Hypoglycemia Simple Syrup (Simple Syrup) 30 ml FEEDTUBE PRN PRN PRN Reason: Hypoglycemia Sodium Bicarbonate (Sodium Bicarbonate) 325 mg FEEDTUBE PRN PRN PRN Reason: For Clogged Feeding Tube Sodium Chloride (Sodium Chloride Flush Syringe 10 Ml) 10 ml IV PRN PRN PRN Reason: LINE FLUSH Tramadol HCl (Ultram) 50 mg PO Q4H PRN PRN Reason: Pain, Moderate (4-6) Last Admin: 09/26/16 20:45 Dose: 50 mg Valacyclovir HCl (Valtrex) 500 mg PO DAILY [facility] Last Admin: 10/05/16 11:00 Dose: 500 mg Vancomycin HCl (Vancomycin Pharmacy To Dose) 1 each IV PKCONSULT [facility] PRN Reason: Protocol Zolpidem Tartrate (Ambien) 5 mg PO QHS PRN PRN Reason: Sleep - Imaging and cardiology Chest x-ray: report reviewed (unchanged bilateral opacities) CT scan - abdomen: report reviewed (unremarkable) CT scan - chest: report reviewed (bilateral pneumonia vs. pulmonary edema) CT scan - pelvis: report reviewed (unremarkable)
--- NOTE | 2016-10-05 12:25 | Progress Note ---
Assessment and Plan The patient is a 41-year-old female with a history of sickle cell disease who was admitted for total hip arthroplasty for avascular necrosis of the left hip. She had left total hip arthroplasty on 09/25/2016 and developed acute hypoxemic respiratory failure following the POD 2 likely from ARDS and ultimately required intubation on 09/27/2016. Her hemoglobin level dropped from 8.1-6.9 on 09/30/2016, also noted to have hypokalemia with potassium level 3.1. Hospitalist service consulted for medical management. Acute respiratory failure - likely due to ARDS with PNA, intubated on 09/27/16 - on mechanical ventilation with 81% FiO2 today - pulmonary following, cont nebulizer, vent support - wean off as tolerated Severe anemia - likely due to sickle cell crisis - transfused 1 unit PRBC - monitor h and H - hematology following Avscular necrosis of the left hip - s/p total left hip arthoplasty on 09/25/16 Hypokalemia -Status post replacement Sepsis syndrome - Likely from ARDS - Spiking temp, wbc count increased today - Continue with IV cefepime and vancomycin - Cultures are negative - ID following, CT abdomen/pelvis unremarkable Hypernatremia - improved with hypotonic iv fluid - cont her on normal saline and free water with tube feeding - Monitor BMP CARLYN - likely from sepsis syndrome -cont iv fluid, monitor renal function - nephrology following The high probability of a clinically significant, sudden or life threatening deterioration of the system(s) required my full and direct attention, intervention and personal management. The aggregate critical care time was [35] minutes. This time is in addition to time spent performing reported procedures but includes the following: [x] Data Review and interpretation [x] Patient assessment and monitoring of vital signs [x] Documentation [x] Medication orders and management Subjective Date of service: 10/05/16 Principal diagnosis: Acute Hypoxemic Respiratory Failure; ARDS Interval history: Patient seen and examined. Medical records and medication list reviewed. No acute event overnight noted by the RN. Patient remained intubated and sedated Had CT abdomen/pelvis showed no acute finding, CT chest showed PNA Discussed plan of care at bedside with RN Discussed with family at bedside Objective - Exam Narrative Exam: GENERAL: well-developed and well-nourished [place] female lying on bed appeared to be in no discomfort. HEENT: Normocephalic. Atraumatic. No conjunctival congestion or icterus. Patient has moist mucous membranes. NECK: Supple. Trachea midline. ET tube in place CHEST/LUNGS: Coarse breath sounds auscultated bilaterally, on mechanical ventilation HEART/CARDIOVASCULAR: Regular in rate and rhythm. S1 and S2 positive. ABDOMEN: Abdomen is soft, nontender. Patient has normal bowel sounds. SKIN: There is no rash. Warm and dry. NEURO: Sedated. MUSCULOSKELETAL: No joint effusion or tenderness. EXTRIMITY: No edema, no cyanosis or clubbing. PSYCH: Unable to assess. - Constitutional Vitals: Vital Signs - 12hr 10/05/16 10/05/16 10/05/16 00:30 00:40 00:50 Temperature Pulse Rate 102 H 103 H 102 H Pulse Rate [ Anterior Bilateral Throughout] Pulse Rate [ Apical] Pulse Rate [ From Monitor] Respiratory 30 H 20 26 H Rate Respiratory Rate [Anterior Bilateral Throughout] Blood Pressure 128/68 128/68 136/71 O2 Sat by Pulse 90 90 89 Oximetry 10/05/16 10/05/16 10/05/16 01:00 01:10 01:20 Temperature Pulse Rate 102 H 104 H 108 H Pulse Rate [ Anterior Bilateral Throughout] Pulse Rate [ Apical] Pulse Rate [ From Monitor] Respiratory 27 H 28 H 31 H Rate Respiratory Rate [Anterior Bilateral Throughout] Blood Pressure 132/61 132/61 128/68 O2 Sat by Pulse 88 92 92 Oximetry 10/05/16 10/05/16 10/05/16 01:30 01:40 01:50 Temperature Pulse Rate 102 H 102 H 102 H Pulse Rate [ Anterior Bilateral Throughout] Pulse Rate [ Apical] Pulse Rate [ From Monitor] Respiratory 29 H 29 H 29 H Rate Respiratory Rate [Anterior Bilateral Throughout] Blood Pressure 127/63 127/63 127/63 O2 Sat by Pulse 89 91 91 Oximetry 10/05/16 10/05/16 10/05/16 02:00 02:10 02:20 Temperature Pulse Rate 100 H 103 H 106 H Pulse Rate [ Anterior Bilateral Throughout] Pulse Rate [ Apical] Pulse Rate [ From Monitor] Respiratory 28 H 28 H 30 H Rate Respiratory Rate [Anterior Bilateral Throughout] Blood Pressure 124/66 124/66 124/66 O2 Sat by Pulse 90 90 90 Oximetry 10/05/16 10/05/16 10/05/16 02:30 02:33 02:40 Temperature Pulse Rate 103 H 105 H Pulse Rate [ 103 H Anterior Bilateral Throughout] Pulse Rate [ Apical] Pulse Rate [ From Monitor] Respiratory 30 H 25 H Rate Respiratory 34 H Rate [Anterior Bilateral Throughout] Blood Pressure 123/64 123/64 O2 Sat by Pulse 96 96 Oximetry 10/05/16 10/05/16 10/05/16 02:43 02:50 03:00 Temperature Pulse Rate 108 H 110 H Pulse Rate [ 106 H Anterior Bilateral Throughout] Pulse Rate [ Apical] Pulse Rate [ From Monitor] Respiratory 30 H 25 H Rate Respiratory 33 H Rate [Anterior Bilateral Throughout] Blood Pressure 123/64 130/69 O2 Sat by Pulse 92 88 Oximetry 10/05/16 10/05/16 10/05/16 03:10 03:20 03:30 Temperature Pulse Rate 106 H 109 H 107 H Pulse Rate [ Anterior Bilateral Throughout] Pulse Rate [ Apical] Pulse Rate [ From Monitor] Respiratory 25 H 29 H 33 H Rate Respiratory Rate [Anterior Bilateral Throughout] Blood Pressure 130/69 130/69 135/70 O2 Sat by Pulse 92 89 Oximetry 10/05/16 10/05/16 10/05/16 03:40 03:42 03:50 Temperature Pulse Rate 109 H 109 H 111 H Pulse Rate [ Anterior Bilateral Throughout] Pulse Rate [ Apical] Pulse Rate [ From Monitor] Respiratory 32 H 30 H Rate Respiratory Rate [Anterior Bilateral Throughout] Blood Pressure 135/70 135/70 135/70 O2 Sat by Pulse 88 89 Oximetry 10/05/16 10/05/16 10/05/16 04:00 04:10 04:20 Temperature 98.4 F Pulse Rate 106 H 105 H 105 H Pulse Rate [ Anterior Bilateral Throughout] Pulse Rate [ 89 Apical] Pulse Rate [ From Monitor] Respiratory 32 H 29 H 32 H Rate Respiratory Rate [Anterior Bilateral Throughout] Blood Pressure 142/73 142/73 142/73 O2 Sat by Pulse 87 92 92 Oximetry 10/05/16 10/05/16 10/05/16 04:30 04:40 04:50 Temperature Pulse Rate 105 H 104 H 105 H Pulse Rate [ Anterior Bilateral Throughout] Pulse Rate [ Apical] Pulse Rate [ From Monitor] Respiratory 31 H 30 H 32 H Rate Respiratory Rate [Anterior Bilateral Throughout] Blood Pressure 134/71 134/71 134/71 O2 Sat by Pulse 85 92 91 Oximetry 10/05/16 10/05/16 10/05/16 05:00 05:10 05:20 Temperature Pulse Rate 106 H 104 H 106 H Pulse Rate [ Anterior Bilateral Throughout] Pulse Rate [ Apical] Pulse Rate [ From Monitor] Respiratory 30 H 32 H 26 H Rate Respiratory Rate [Anterior Bilateral Throughout] Blood Pressure 123/66 123/66 123/66 O2 Sat by Pulse 88 87 89 Oximetry 10/05/16 10/05/16 10/05/16 05:30 05:40 05:50 Temperature Pulse Rate 108 H 109 H 110 H Pulse Rate [ Anterior Bilateral Throughout] Pulse Rate [ Apical] Pulse Rate [ From Monitor] Respiratory 30 H 26 H 32 H Rate Respiratory Rate [Anterior Bilateral Throughout] Blood Pressure 136/66 136/66 136/66 O2 Sat by Pulse 87 96 87 Oximetry 10/05/16 10/05/16 10/05/16 06:00 06:08 06:10 Temperature Pulse Rate 108 H 109 H 106 H Pulse Rate [ Anterior Bilateral Throughout] Pulse Rate [ Apical] Pulse Rate [ From Monitor] Respiratory 32 H 27 H Rate Respiratory Rate [Anterior Bilateral Throughout] Blood Pressure 148/70 148/70 148/70 O2 Sat by Pulse 87 92 94 Oximetry 10/05/16 10/05/16 10/05/16 06:20 06:30 06:40 Temperature Pulse Rate 102 H 102 H 102 H Pulse Rate [ Anterior Bilateral Throughout] Pulse Rate [ Apical] Pulse Rate [ From Monitor] Respiratory 24 27 H 26 H Rate Respiratory Rate [Anterior Bilateral Throughout] Blood Pressure 148/70 125/62 125/62 O2 Sat by Pulse 96 93 96 Oximetry 10/05/16 10/05/16 10/05/16 06:50 07:00 07:10 Temperature Pulse Rate 107 H 106 H 107 H Pulse Rate [ Anterior Bilateral Throughout] Pulse Rate [ Apical] Pulse Rate [ From Monitor] Respiratory 31 H 31 H 30 H Rate Respiratory Rate [Anterior Bilateral Throughout] Blood Pressure 125/62 140/73 140/73 O2 Sat by Pulse 94 91 92 Oximetry 10/05/16 10/05/16 10/05/16 07:20 07:30 07:40 Temperature Pulse Rate 108 H 107 H 106 H Pulse Rate [ Anterior Bilateral Throughout] Pulse Rate [ Apical] Pulse Rate [ From Monitor] Respiratory 32 H 32 H 31 H Rate Respiratory Rate [Anterior Bilateral Throughout] Blood Pressure 140/73 145/74 145/74 O2 Sat by Pulse 92 90 92 Oximetry 10/05/16 10/05/16 10/05/16 07:42 07:50 08:00 Temperature 98.3 F Pulse Rate 112 H 108 H Pulse Rate [ 114 H Anterior Bilateral Throughout] Pulse Rate [ Apical] Pulse Rate [ 114 H From Monitor] Respiratory 27 H 28 H Rate Respiratory 24 Rate [Anterior Bilateral Throughout] Blood Pressure 145/74 126/72 O2 Sat by Pulse 92 92 Oximetry 10/05/16 10/05/16 10/05/16 08:10 08:20 08:30 Temperature Pulse Rate 113 H 111 H 114 H Pulse Rate [ Anterior Bilateral Throughout] Pulse Rate [ Apical] Pulse Rate [ From Monitor] Respiratory 33 H 15 29 H Rate Respiratory Rate [Anterior Bilateral Throughout] Blood Pressure 126/72 126/72 128/74 O2 Sat by Pulse 91 88 84 Oximetry 10/05/16 10/05/16 10/05/16 08:40 08:42 08:50 Temperature Pulse Rate 115 H 115 H 116 H Pulse Rate [ Anterior Bilateral Throughout] Pulse Rate [ Apical] Pulse Rate [ From Monitor] Respiratory 22 27 H Rate Respiratory Rate [Anterior Bilateral Throughout] Blood Pressure 128/74 128/74 128/74 O2 Sat by Pulse 92 90 90 Oximetry 10/05/16 10/05/16 10/05/16 09:00 11:39 11:55 Temperature Pulse Rate 115 H 117 H Pulse Rate [ Anterior Bilateral Throughout] Pulse Rate [ Apical] Pulse Rate [ 118 H From Monitor] Respiratory 36 H 30 H Rate Respiratory Rate [Anterior Bilateral Throughout] Blood Pressure 143/67 126/62 O2 Sat by Pulse 85 90 90 Oximetry - Labs CBC & Chem 7: 10/05/16 01:27 10/05/16 01:27 Labs: Abnormal lab results 10/04/16 10/04/16 10/04/16 Range/Units 12:29 12:39 15:14 WBC (4.5-11.0) K/mm3 RBC (3.65-5.03) M/mm3 Hgb (10.1-14.3) gm/dl Hct (30.3-42.9) % MCH (28-32) pg RDW (13.2-15.2) % POC ABG pH (7.35-7.45) POC ABG pCO2 (35-45) POC ABG pO2 109 H (80-105) BUN (7-17) mg/dL Creatinine (0.7-1.2) mg/dL Glucose (65-100) mg/dL POC Glucose 123 H (70-105) Vancomycin Trough 45.5 H (5.0-20.0) ug/mL Random Vancomycin (0-40.0) ug/mL 10/04/16 10/04/16 10/04/16 Range/Units 17:45 20:13 23:05 WBC (4.5-11.0) K/mm3 RBC (3.65-5.03) M/mm3 Hgb (10.1-14.3) gm/dl Hct (30.3-42.9) % MCH (28-32) pg RDW (13.2-15.2) % POC ABG pH 7.341 L (7.35-7.45) POC ABG pCO2 (35-45) POC ABG pO2 47 L (80-105) BUN (7-17) mg/dL Creatinine (0.7-1.2) mg/dL Glucose (65-100) mg/dL POC Glucose 124 H 127 H (70-105) Vancomycin Trough (5.0-20.0) ug/mL Random Vancomycin (0-40.0) ug/mL 10/05/16 10/05/16 10/05/16 Range/Units 01:27 01:27 03:50 WBC 36.1 H (4.5-11.0) K/mm3 RBC 2.99 L (3.65-5.03) M/mm3 Hgb 7.3 L (10.1-14.3) gm/dl Hct 23.5 L (30.3-42.9) % MCH 25 L (28-32) pg RDW 19.6 H (13.2-15.2) % POC ABG pH 7.330 L (7.35-7.45) POC ABG pCO2 45.3 H (35-45) POC ABG pO2 53 L (80-105) BUN 49 H (7-17) mg/dL Creatinine 1.6 H (0.7-1.2) mg/dL Glucose 112 H (65-100) mg/dL POC Glucose (70-105) Vancomycin Trough (5.0-20.0) ug/mL Random Vancomycin (0-40.0) ug/mL 10/05/16 10/05/16 10/05/16 Range/Units 05:00 05:30 12:08 WBC (4.5-11.0) K/mm3 RBC (3.65-5.03) M/mm3 Hgb (10.1-14.3) gm/dl Hct (30.3-42.9) % MCH (28-32) pg RDW (13.2-15.2) % POC ABG pH (7.35-7.45) POC ABG pCO2 (35-45) POC ABG pO2 (80-105) BUN (7-17) mg/dL Creatinine (0.7-1.2) mg/dL Glucose (65-100) mg/dL POC Glucose 141 H 149 H (70-105) Vancomycin Trough (5.0-20.0) ug/mL Random Vancomycin 43.6 H (0-40.0) ug/mL
--- NOTE | 2016-10-05 12:30 | Progress Note ---
Assessment and Plan - Patient Problems (1) Acute respiratory failure with hypoxia Current Visit: Yes Status: Acute Plan to address problem: - continue ARDS ventilation / LTVV strategies keep Peep at 18 - permissive hypercapnia - continue bronchodilators and pulmonary toilet - continue aspiration precautions / VAP bundles - continue to wean oxygen for sats > 92% - serial ABG's - switched to APRV - lighten sedation to allow spontaneous breathing also (2) ARDS (adult respiratory distress syndrome) Current Visit: Yes Status: Acute Plan to address problem: - 2D ECHO reports normal EF without impaired relaxation - etiology unclear - treating empirically as HCAP - switched to APRV (3) Obesity Current Visit: Yes Status: Acute Qualifiers: Obesity type: O Obesity severity: O Plan to address problem: - weight loss counselled earlier - outpatient sleep clinic evaluation at discharge (4) Avascular necrosis of bone of left hip Current Visit: Yes Status: Chronic Plan to address problem: - s/p hip replacement surgery - per orthopedic surgeon otherwise (5) Sepsis syndrome Current Visit: Yes Status: Acute Plan to address problem: - continue empiric AB's - ID evaluation ongoing - anti-infectives per ID recs - get CRP and lactate and trend +/- make adjustments to therapy (6) Anemia Current Visit: Yes Status: Acute Qualifiers: Anemia type: A Iron deficiency anemia type: I Vitamin B12 deficiency anemia type: V Folate deficiency anemia type: F Bone marrow failure anemia type: B Hemolytic anemia type: H Other causes of anemia: O Plan to address problem: - multifactorial - suspect ABLA component - h/o sickle cell - prn PRBC transfusions - hematology following (7) CARLYN (acute kidney injury) Current Visit: Yes Status: Acute Plan to address problem: - non oliguric - per nephrology recommendations (8) Discharge planning issues Current Visit: Yes Status: Acute Plan to address problem: - appears may be a prolonged ICU stay .....she remains critically ill on life sustaining interventions including MVS and at risk for further deterioration including 40' CCT Subjective Date of service: 10/05/16 Principal diagnosis: Acute Hypoxemic Respiratory Failure; ARDS Interval history: Seen and examined at bedside; 24 hour events reviewed; nursing and respiratory care staff consulted; no adverse overnight events reported to me; remains hypoxemic; switched to APRV mode Objective Vital Signs - 12hr 10/05/16 10/05/16 10/05/16 00:40 00:50 01:00 Temperature Pulse Rate 103 H 102 H 102 H Pulse Rate [ Anterior Bilateral Throughout] Pulse Rate [ Apical] Pulse Rate [ From Monitor] Respiratory 20 26 H 27 H Rate Respiratory Rate [Anterior Bilateral Throughout] Blood Pressure 128/68 136/71 132/61 O2 Sat by Pulse 90 89 88 Oximetry 10/05/16 10/05/16 10/05/16 01:10 01:20 01:30 Temperature Pulse Rate 104 H 108 H 102 H Pulse Rate [ Anterior Bilateral Throughout] Pulse Rate [ Apical] Pulse Rate [ From Monitor] Respiratory 28 H 31 H 29 H Rate Respiratory Rate [Anterior Bilateral Throughout] Blood Pressure 132/61 128/68 127/63 O2 Sat by Pulse 92 92 89 Oximetry 10/05/16 10/05/16 10/05/16 01:40 01:50 02:00 Temperature Pulse Rate 102 H 102 H 100 H Pulse Rate [ Anterior Bilateral Throughout] Pulse Rate [ Apical] Pulse Rate [ From Monitor] Respiratory 29 H 29 H 28 H Rate Respiratory Rate [Anterior Bilateral Throughout] Blood Pressure 127/63 127/63 124/66 O2 Sat by Pulse 91 91 90 Oximetry 10/05/16 10/05/16 10/05/16 02:10 02:20 02:30 Temperature Pulse Rate 103 H 106 H 103 H Pulse Rate [ Anterior Bilateral Throughout] Pulse Rate [ Apical] Pulse Rate [ From Monitor] Respiratory 28 H 30 H 30 H Rate Respiratory Rate [Anterior Bilateral Throughout] Blood Pressure 124/66 124/66 123/64 O2 Sat by Pulse 90 90 96 Oximetry 10/05/16 10/05/16 10/05/16 02:33 02:40 02:43 Temperature Pulse Rate 105 H Pulse Rate [ 103 H 106 H Anterior Bilateral Throughout] Pulse Rate [ Apical] Pulse Rate [ From Monitor] Respiratory 25 H Rate Respiratory 34 H 33 H Rate [Anterior Bilateral Throughout] Blood Pressure 123/64 O2 Sat by Pulse 96 Oximetry 10/05/16 10/05/16 10/05/16 02:50 03:00 03:10 Temperature Pulse Rate 108 H 110 H 106 H Pulse Rate [ Anterior Bilateral Throughout] Pulse Rate [ Apical] Pulse Rate [ From Monitor] Respiratory 30 H 25 H 25 H Rate Respiratory Rate [Anterior Bilateral Throughout] Blood Pressure 123/64 130/69 130/69 O2 Sat by Pulse 92 88 92 Oximetry 10/05/16 10/05/1617 03:20 03:30 03:40 Temperature Pulse Rate 109 H 107 H 109 H Pulse Rate [ Anterior Bilateral Throughout] Pulse Rate [ Apical] Pulse Rate [ From Monitor] Respiratory 29 H 33 H 32 H Rate Respiratory Rate [Anterior Bilateral Throughout] Blood Pressure 130/69 135/70 135/70 O2 Sat by Pulse 89 88 Oximetry 10/05/16 10/05/16 10/05/16 03:42 03:50 04:00 Temperature 98.4 F Pulse Rate 109 H 111 H 106 H Pulse Rate [ Anterior Bilateral Throughout] Pulse Rate [ 89 Apical] Pulse Rate [ From Monitor] Respiratory 30 H 32 H Rate Respiratory Rate [Anterior Bilateral Throughout] Blood Pressure 135/70 135/70 142/73 O2 Sat by Pulse 89 87 Oximetry 10/05/16 10/05/16 10/05/16 04:10 04:20 04:30 Temperature Pulse Rate 105 H 105 H 105 H Pulse Rate [ Anterior Bilateral Throughout] Pulse Rate [ Apical] Pulse Rate [ From Monitor] Respiratory 29 H 32 H 31 H Rate Respiratory Rate [Anterior Bilateral Throughout] Blood Pressure 142/73 142/73 134/71 O2 Sat by Pulse 92 92 85 Oximetry 10/05/16 10/05/16 10/05/16 04:40 04:50 05:00 Temperature Pulse Rate 104 H 105 H 106 H Pulse Rate [ Anterior Bilateral Throughout] Pulse Rate [ Apical] Pulse Rate [ From Monitor] Respiratory 30 H 32 H 30 H Rate Respiratory Rate [Anterior Bilateral Throughout] Blood Pressure 134/71 134/71 123/66 O2 Sat by Pulse 92 91 88 Oximetry 10/05/16 10/05/16 10/05/16 05:10 05:20 05:30 Temperature Pulse Rate 104 H 106 H 108 H Pulse Rate [ Anterior Bilateral Throughout] Pulse Rate [ Apical] Pulse Rate [ From Monitor] Respiratory 32 H 26 H 30 H Rate Respiratory Rate [Anterior Bilateral Throughout] Blood Pressure 123/66 123/66 136/66 O2 Sat by Pulse 87 89 87 Oximetry 10/05/16 10/05/16 10/05/16 05:40 05:50 06:00 Temperature Pulse Rate 109 H 110 H 108 H Pulse Rate [ Anterior Bilateral Throughout] Pulse Rate [ Apical] Pulse Rate [ From Monitor] Respiratory 26 H 32 H 32 H Rate Respiratory Rate [Anterior Bilateral Throughout] Blood Pressure 136/66 136/66 148/70 O2 Sat by Pulse 96 87 87 Oximetry 10/05/16 10/05/16 10/05/16 06:08 06:10 06:20 Temperature Pulse Rate 109 H 106 H 102 H Pulse Rate [ Anterior Bilateral Throughout] Pulse Rate [ Apical] Pulse Rate [ From Monitor] Respiratory 27 H 24 Rate Respiratory Rate [Anterior Bilateral Throughout] Blood Pressure 148/70 148/70 148/70 O2 Sat by Pulse 92 94 96 Oximetry 10/05/16 10/05/16 10/05/16 06:30 06:40 06:50 Temperature Pulse Rate 102 H 102 H 107 H Pulse Rate [ Anterior Bilateral Throughout] Pulse Rate [ Apical] Pulse Rate [ From Monitor] Respiratory 27 H 26 H 31 H Rate Respiratory Rate [Anterior Bilateral Throughout] Blood Pressure 125/62 125/62 125/62 O2 Sat by Pulse 93 96 94 Oximetry 10/05/16 10/05/16 10/05/16 07:00 07:10 07:20 Temperature Pulse Rate 106 H 107 H 108 H Pulse Rate [ Anterior Bilateral Throughout] Pulse Rate [ Apical] Pulse Rate [ From Monitor] Respiratory 31 H 30 H 32 H Rate Respiratory Rate [Anterior Bilateral Throughout] Blood Pressure 140/73 140/73 140/73 O2 Sat by Pulse 91 92 92 Oximetry 10/05/16 10/05/16 10/05/16 07:30 07:40 07:42 Temperature 98.3 F Pulse Rate 107 H 106 H Pulse Rate [ Anterior Bilateral Throughout] Pulse Rate [ Apical] Pulse Rate [ From Monitor] Respiratory 32 H 31 H Rate Respiratory Rate [Anterior Bilateral Throughout] Blood Pressure 145/74 145/74 O2 Sat by Pulse 90 92 Oximetry 10/05/16 10/05/16 10/05/16 07:50 08:00 08:10 Temperature Pulse Rate 112 H 108 H 113 H Pulse Rate [ 114 H Anterior Bilateral Throughout] Pulse Rate [ Apical] Pulse Rate [ 114 H From Monitor] Respiratory 27 H 28 H 33 H Rate Respiratory 24 Rate [Anterior Bilateral Throughout] Blood Pressure 145/74 126/72 126/72 O2 Sat by Pulse 92 92 91 Oximetry 10/05/16 10/05/16 10/05/16 08:20 08:30 08:40 Temperature Pulse Rate 111 H 114 H 115 H Pulse Rate [ Anterior Bilateral Throughout] Pulse Rate [ Apical] Pulse Rate [ From Monitor] Respiratory 15 29 H 22 Rate Respiratory Rate [Anterior Bilateral Throughout] Blood Pressure 126/72 128/74 128/74 O2 Sat by Pulse 88 84 92 Oximetry 10/05/16 10/05/16 10/05/16 08:42 08:50 09:00 Temperature Pulse Rate 115 H 116 H 115 H Pulse Rate [ Anterior Bilateral Throughout] Pulse Rate [ Apical] Pulse Rate [ From Monitor] Respiratory 27 H 36 H Rate Respiratory Rate [Anterior Bilateral Throughout] Blood Pressure 128/74 128/74 143/67 O2 Sat by Pulse 90 90 85 Oximetry 10/05/16 10/05/16 11:39 11:55 Temperature Pulse Rate 117 H Pulse Rate [ Anterior Bilateral Throughout] Pulse Rate [ Apical] Pulse Rate [ 118 H From Monitor] Respiratory 30 H Rate Respiratory Rate [Anterior Bilateral Throughout] Blood Pressure 126/62 O2 Sat by Pulse 90 90 Oximetry Constitutional: other (sedated) Eyes: non-icteric ENT: oropharynx moist Neck: supple, no lymphadenopathy Effort: mildly labored Ascultation: Bilateral: diminished breath sounds, rales, rhonchi Cardiovascular: regular rate and rhythm Gastrointestinal: normoactive bowel sounds, soft, non-tender, non-distended Integumentary: normal Extremities: no cyanosis, no edema, pulses normal, no ischemia or petechiae Neurologic: unable to assess Psychiatric: other (sedated now) CBC and BMP: 10/05/16 01:27 10/05/16 01:27 ABG, PT/INR, D-dimer: ABG POC ABG pH 7.330 (7.35-7.45) L 10/05/16 03:50 POC ABG pCO2 45.3 (35-45) H 10/05/16 03:50 POC ABG pO2 53 (80-105) L 10/05/16 03:50 POC ABG HCO3 23.9 10/05/16 03:50 POC ABG Total CO2 25 10/05/16 03:50 POC ABG O2 Sat 85 10/05/16 03:50 PT/INR, D-dimer PT 14.5 Sec. (12.2-14.9) 09/20/16 10:35 INR 1.14 (0.87-1.13) H 09/20/16 10:35 D-Dimer 4758.12 ng/mlDDU (0-234) H 09/27/16 22:47 Abnormal lab findings: Abnormal Labs 09/20/16 09/20/16 09/20/16 10:35 10:35 10:35 WBC 11.7 H RBC Hgb Hct MCV 75 L MCH 24 L RDW 16.6 H Plt Count Seg Neuts % (Manual) Lymphocytes % (Manual) Eosinophils % (Manual) Nucleated RBC % Seg Neutrophils # Man Monocytes # (Manual) Eosinophils # (Manual) Percent Retic INR 1.14 H D-Dimer POC ABG pH POC ABG pCO2 POC ABG pO2 Sodium Potassium Chloride Carbon Dioxide BUN Creatinine 0.5 L Glucose 115 H POC Glucose Lactic Acid Calcium Total Bilirubin 2.0 H Lactate Dehydrogenase Total Creatine Kinase CK-MB (CK-2) C-Reactive Protein NT-Pro-B Natriuret Pep Total Protein Albumin Urine WBC (Auto) Urine Creatinine Urine Total Protein Vancomycin Trough Random Vancomycin Crossmatch 09/26/16 09/26/16 09/27/16 04:26 04:26 10:26 WBC RBC Hgb 8.9 L Hct 28.0 L MCV MCH RDW Plt Count Seg Neuts % (Manual) Lymphocytes % (Manual) Eosinophils % (Manual) Nucleated RBC % Seg Neutrophils # Man Monocytes # (Manual) Eosinophils # (Manual) Percent Retic INR D-Dimer POC ABG pH 7.283 L POC ABG pCO2 45.3 H POC ABG pO2 79 L Sodium Potassium Chloride Carbon Dioxide 20 L BUN Creatinine Glucose 129 H POC Glucose Lactic Acid Calcium 7.6 L Total Bilirubin Lactate Dehydrogenase Total Creatine Kinase CK-MB (CK-2) C-Reactive Protein NT-Pro-B Natriuret Pep Total Protein Albumin Urine WBC (Auto) Urine Creatinine Urine Total Protein Vancomycin Trough Random Vancomycin Crossmatch 09/27/16 09/27/16 09/27/16 14:40 14:40 15:14 WBC 39.3 H RBC Hgb 9.3 L Hct 28.9 L MCV 75 L MCH 24 L RDW 18.7 H Plt Count Seg Neuts % (Manual) 93.5 H Lymphocytes % (Manual) 5.0 L Eosinophils % (Manual) Nucleated RBC % Seg Neutrophils # Man 36.7 H Monocytes # (Manual) Eosinophils # (Manual) Percent Retic INR D-Dimer POC ABG pH POC ABG pCO2 POC ABG pO2 Sodium Potassium Chloride Carbon Dioxide BUN Creatinine Glucose POC Glucose Lactic Acid 2.9 H* Calcium Total Bilirubin Lactate Dehydrogenase Total Creatine Kinase 3575 H CK-MB (CK-2) 11.0 H C-Reactive Protein 16.10 H NT-Pro-B Natriuret Pep Total Protein Albumin Urine WBC (Auto) Urine Creatinine Urine Total Protein Vancomycin Trough Random Vancomycin Crossmatch 09/27/16 09/27/16 09/27/16 18:05 22:47 22:47 WBC RBC Hgb Hct MCV MCH RDW Plt Count Seg Neuts % (Manual) Lymphocytes % (Manual) Eosinophils % (Manual) Nucleated RBC % Seg Neutrophils # Man Monocytes # (Manual) Eosinophils # (Manual) Percent Retic INR D-Dimer 4758.12 H POC ABG pH POC ABG pCO2 POC ABG pO2 70 L Sodium Potassium Chloride Carbon Dioxide BUN Creatinine Glucose POC Glucose Lactic Acid Calcium Total Bilirubin Lactate Dehydrogenase 829 H Total Creatine Kinase CK-MB (CK-2) C-Reactive Protein NT-Pro-B Natriuret Pep Total Protein Albumin Urine WBC (Auto) Urine Creatinine Urine Total Protein Vancomycin Trough Random Vancomycin Crossmatch 09/27/16 09/28/16 09/28/16 22:47 09:20 10:47 WBC RBC Hgb Hct MCV MCH RDW Plt Count Seg Neuts % (Manual) Lymphocytes % (Manual) Eosinophils % (Manual) Nucleated RBC % Seg Neutrophils # Man Monocytes # (Manual) Eosinophils # (Manual) Percent Retic 8.11 H INR D-Dimer POC ABG pH POC ABG pCO2 47.2 H POC ABG pO2 70 L Sodium Potassium Chloride Carbon Dioxide BUN Creatinine 0.6 L Glucose 137 H POC Glucose Lactic Acid Calcium Total Bilirubin Lactate Dehydrogenase Total Creatine Kinase CK-MB (CK-2) C-Reactive Protein NT-Pro-B Natriuret Pep Total Protein Albumin Urine WBC (Auto) Urine Creatinine Urine Total Protein Vancomycin Trough Random Vancomycin Crossmatch 09/28/16 09/30/16 09/30/16 10:47 11:01 14:05 WBC 30.3 H RBC 3.27 L Hgb 8.1 L Hct 24.4 L MCV 75 L MCH 25 L RDW 18.9 H Plt Count Seg Neuts % (Manual) Lymphocytes % (Manual) 12.0 L Eosinophils % (Manual) Nucleated RBC % 5.0 H Seg Neutrophils # Man 21.2 H Monocytes # (Manual) 1.8 H Eosinophils # (Manual) Percent Retic INR D-Dimer POC ABG pH POC ABG pCO2 48.8 H POC ABG pO2 52 L Sodium Potassium Chloride Carbon Dioxide BUN Creatinine Glucose POC Glucose Lactic Acid Calcium Total Bilirubin Lactate Dehydrogenase Total Creatine Kinase CK-MB (CK-2) C-Reactive Protein NT-Pro-B Natriuret Pep 2018 H Total Protein Albumin Urine WBC (Auto) Urine Creatinine Urine Total Protein Vancomycin Trough Random Vancomycin Crossmatch 09/30/16 09/30/16 09/30/16 14:05 14:05 14:05 WBC 22.1 H RBC 2.76 L Hgb 6.9 L Hct 20.6 L MCV 75 L MCH 25 L RDW 18.7 H Plt Count Seg Neuts % (Manual) 74.0 H Lymphocytes % (Manual) 7.0 L Eosinophils % (Manual) Nucleated RBC % 52.0 H Seg Neutrophils # Man 16.4 H Monocytes # (Manual) Eosinophils # (Manual) Percent Retic INR D-Dimer POC ABG pH POC ABG pCO2 POC ABG pO2 Sodium Potassium 3.1 L Chloride Carbon Dioxide BUN Creatinine 0.5 L Glucose 116 H POC Glucose Lactic Acid Calcium 8.2 L Total Bilirubin Lactate Dehydrogenase Total Creatine Kinase CK-MB (CK-2) C-Reactive Protein 30.80 H NT-Pro-B Natriuret Pep Total Protein Albumin Urine WBC (Auto) Urine Creatinine Urine Total Protein Vancomycin Trough Random Vancomycin Crossmatch 09/30/16 10/01/16 10/01/16 14:33 00:55 00:55 WBC 26.1 H RBC 2.80 L Hgb 6.8 L Hct 20.8 L MCV 74 L MCH 24 L RDW 18.6 H Plt Count Seg Neuts % (Manual) 85.0 H Lymphocytes % (Manual) 11.0 L Eosinophils % (Manual) Nucleated RBC % 21.0 H Seg Neutrophils # Man 22.2 H Monocytes # (Manual) 1.0 H Eosinophils # (Manual) Percent Retic INR D-Dimer POC ABG pH POC ABG pCO2 47.8 H POC ABG pO2 201 H Sodium Potassium Chloride Carbon Dioxide BUN Creatinine Glucose POC Glucose Lactic Acid Calcium Total Bilirubin Lactate Dehydrogenase Total Creatine Kinase CK-MB (CK-2) C-Reactive Protein NT-Pro-B Natriuret Pep Total Protein Albumin Urine WBC (Auto) Urine Creatinine Urine Total Protein Vancomycin Trough Random Vancomycin Crossmatch See Detail 10/01/16 10/01/16 10/01/16 04:57 05:00 13:01 WBC RBC Hgb Hct MCV MCH RDW Plt Count Seg Neuts % (Manual) Lymphocytes % (Manual) Eosinophils % (Manual) Nucleated RBC % Seg Neutrophils # Man Monocytes # (Manual) Eosinophils # (Manual) Percent Retic INR D-Dimer POC ABG pH POC ABG pCO2 58.5 H POC ABG pO2 149 H Sodium 149 H Potassium 3.0 L Chloride Carbon Dioxide BUN Creatinine Glucose POC Glucose 120 H Lactic Acid Calcium 8.3 L Total Bilirubin Lactate Dehydrogenase Total Creatine Kinase CK-MB (CK-2) C-Reactive Protein NT-Pro-B Natriuret Pep Total Protein Albumin Urine WBC (Auto) Urine Creatinine Urine Total Protein Vancomycin Trough Random Vancomycin Crossmatch 10/01/16 10/01/16 10/01/16 15:43 17:44 23:37 WBC 27.6 H RBC 3.55 L Hgb 8.9 L Hct 27.6 L D MCV 78 L D MCH 25 L RDW 18.1 H Plt Count Seg Neuts % (Manual) 79.5 H Lymphocytes % (Manual) 8.0 L Eosinophils % (Manual) Nucleated RBC % 65.0 H Seg Neutrophils # Man 21.9 H Monocytes # (Manual) 1.0 H Eosinophils # (Manual) Percent Retic INR D-Dimer POC ABG pH POC ABG pCO2 POC ABG pO2 Sodium Potassium Chloride Carbon Dioxide BUN Creatinine Glucose POC Glucose 121 H 129 H Lactic Acid Calcium Total Bilirubin Lactate Dehydrogenase Total Creatine Kinase CK-MB (CK-2) C-Reactive Protein NT-Pro-B Natriuret Pep Total Protein Albumin Urine WBC (Auto) Urine Creatinine Urine Total Protein Vancomycin Trough Random Vancomycin Crossmatch 10/02/16 10/02/16 10/02/16 05:05 05:40 06:00 WBC 23.0 H RBC 3.30 L Hgb 8.3 L Hct 25.8 L MCV 78 L MCH 25 L RDW 18.2 H Plt Count Seg Neuts % (Manual) 83.5 H Lymphocytes % (Manual) 4.0 L Eosinophils % (Manual) Nucleated RBC % 14.5 H Seg Neutrophils # Man 25.1 H Monocytes # (Manual) 1.7 H Eosinophils # (Manual) Percent Retic INR D-Dimer POC ABG pH POC ABG pCO2 50.5 H POC ABG pO2 Sodium Potassium Chloride Carbon Dioxide BUN Creatinine Glucose POC Glucose 123 H Lactic Acid Calcium Total Bilirubin Lactate Dehydrogenase Total Creatine Kinase CK-MB (CK-2) C-Reactive Protein NT-Pro-B Natriuret Pep Total Protein Albumin Urine WBC (Auto) Urine Creatinine Urine Total Protein Vancomycin Trough Random Vancomycin Crossmatch 10/02/16 10/02/16 10/02/16 06:00 11:42 21:52 WBC RBC Hgb Hct MCV MCH RDW Plt Count Seg Neuts % (Manual) Lymphocytes % (Manual) Eosinophils % (Manual) Nucleated RBC % Seg Neutrophils # Man Monocytes # (Manual) Eosinophils # (Manual) Percent Retic INR D-Dimer POC ABG pH 7.324 L POC ABG pCO2 60.5 H POC ABG pO2 74 L Sodium 150 H Potassium Chloride 108.3 H Carbon Dioxide BUN 20 H Creatinine 1.4 H D Glucose 117 H POC Glucose 135 H Lactic Acid Calcium Total Bilirubin Lactate Dehydrogenase Total Creatine Kinase CK-MB (CK-2) C-Reactive Protein NT-Pro-B Natriuret Pep Total Protein Albumin Urine WBC (Auto) Urine Creatinine Urine Total Protein Vancomycin Trough Random Vancomycin Crossmatch 10/02/16 10/03/16 10/03/16 23:26 05:55 08:17 WBC 32.0 H RBC 3.13 L Hgb 7.9 L Hct 24.6 L MCV MCH 25 L RDW 18.9 H Plt Count 132 L Seg Neuts % (Manual) 75.0 H Lymphocytes % (Manual) 5.0 L Eosinophils % (Manual) Nucleated RBC % 26.0 H Seg Neutrophils # Man 24.0 H Monocytes # (Manual) 1.0 H Eosinophils # (Manual) 1.0 H Percent Retic INR D-Dimer POC ABG pH POC ABG pCO2 POC ABG pO2 Sodium Potassium Chloride Carbon Dioxide BUN Creatinine Glucose POC Glucose 121 H 145 H Lactic Acid Calcium Total Bilirubin Lactate Dehydrogenase Total Creatine Kinase CK-MB (CK-2) C-Reactive Protein NT-Pro-B Natriuret Pep Total Protein Albumin Urine WBC (Auto) Urine Creatinine Urine Total Protein Vancomycin Trough Random Vancomycin Crossmatch 10/03/16 10/03/16 10/03/16 08:17 09:26 11:34 WBC RBC Hgb Hct MCV MCH RDW Plt Count Seg Neuts % (Manual) Lymphocytes % (Manual) Eosinophils % (Manual) Nucleated RBC % Seg Neutrophils # Man Monocytes # (Manual) Eosinophils # (Manual) Percent Retic INR D-Dimer POC ABG pH 7.274 L POC ABG pCO2 59.7 H POC ABG pO2 58 L Sodium 147 H Potassium Chloride 107.6 H Carbon Dioxide BUN 31 H Creatinine 1.7 H Glucose 118 H POC Glucose 142 H Lactic Acid Calcium Total Bilirubin Lactate Dehydrogenase Total Creatine Kinase CK-MB (CK-2) C-Reactive Protein NT-Pro-B Natriuret Pep Total Protein Albumin Urine WBC (Auto) Urine Creatinine Urine Total Protein Vancomycin Trough Random Vancomycin Crossmatch 10/03/16 10/03/16 10/03/16 15:54 15:54 16:58 WBC RBC Hgb Hct MCV MCH RDW Plt Count Seg Neuts % (Manual) Lymphocytes % (Manual) Eosinophils % (Manual) Nucleated RBC % Seg Neutrophils # Man Monocytes # (Manual) Eosinophils # (Manual) Percent Retic INR D-Dimer POC ABG pH POC ABG pCO2 POC ABG pO2 Sodium Potassium Chloride Carbon Dioxide BUN Creatinine Glucose POC Glucose 138 H Lactic Acid Calcium Total Bilirubin Lactate Dehydrogenase Total Creatine Kinase CK-MB (CK-2) C-Reactive Protein NT-Pro-B Natriuret Pep Total Protein Albumin Urine WBC (Auto) 21.0 H Urine Creatinine 63.2 H Urine Total Protein 67 H Vancomycin Trough Random Vancomycin Crossmatch 10/03/16 10/03/16 10/04/16 21:37 23:44 04:00 WBC 30.3 H RBC 2.86 L Hgb 7.3 L Hct 22.6 L MCV MCH 25 L RDW 19.6 H Plt Count 125 L Seg Neuts % (Manual) Lymphocytes % (Manual) 12.0 L Eosinophils % (Manual) 5.0 H Nucleated RBC % 30.0 H Seg Neutrophils # Man 12.7 H Monocytes # (Manual) 1.2 H Eosinophils # (Manual) 1.5 H Percent Retic INR D-Dimer POC ABG pH 7.271 L POC ABG pCO2 61.7 H POC ABG pO2 77 L Sodium Potassium Chloride Carbon Dioxide BUN Creatinine Glucose POC Glucose 130 H Lactic Acid Calcium Total Bilirubin Lactate Dehydrogenase Total Creatine Kinase CK-MB (CK-2) C-Reactive Protein NT-Pro-B Natriuret Pep Total Protein Albumin Urine WBC (Auto) Urine Creatinine Urine Total Protein Vancomycin Trough Random Vancomycin Crossmatch 10/04/16 10/04/16 10/04/16 04:03 06:02 12:29 WBC RBC Hgb Hct MCV MCH RDW Plt Count Seg Neuts % (Manual) Lymphocytes % (Manual) Eosinophils % (Manual) Nucleated RBC % Seg Neutrophils # Man Monocytes # (Manual) Eosinophils # (Manual) Percent Retic INR D-Dimer POC ABG pH 7.248 L POC ABG pCO2 62.3 H POC ABG pO2 59 L Sodium Potassium Chloride Carbon Dioxide BUN 40 H Creatinine 1.7 H Glucose 110 H POC Glucose 123 H Lactic Acid Calcium Total Bilirubin Lactate Dehydrogenase Total Creatine Kinase CK-MB (CK-2) C-Reactive Protein NT-Pro-B Natriuret Pep Total Protein 5.6 L Albumin 2.1 L Urine WBC (Auto) Urine Creatinine Urine Total Protein Vancomycin Trough Random Vancomycin Crossmatch 10/04/16 10/04/16 10/04/16 12:39 15:14 17:45 WBC RBC Hgb Hct MCV MCH RDW Plt Count Seg Neuts % (Manual) Lymphocytes % (Manual) Eosinophils % (Manual) Nucleated RBC % Seg Neutrophils # Man Monocytes # (Manual) Eosinophils # (Manual) Percent Retic INR D-Dimer POC ABG pH POC ABG pCO2 POC ABG pO2 109 H Sodium Potassium Chloride Carbon Dioxide BUN Creatinine Glucose POC Glucose 124 H Lactic Acid Calcium Total Bilirubin Lactate Dehydrogenase Total Creatine Kinase CK-MB (CK-2) C-Reactive Protein NT-Pro-B Natriuret Pep Total Protein Albumin Urine WBC (Auto) Urine Creatinine Urine Total Protein Vancomycin Trough 45.5 H Random Vancomycin Crossmatch 10/04/16 10/04/16 10/05/16 20:13 23:05 01:27 WBC 36.1 H RBC 2.99 L Hgb 7.3 L Hct 23.5 L MCV MCH 25 L RDW 19.6 H Plt Count Seg Neuts % (Manual) Lymphocytes % (Manual) Eosinophils % (Manual) Nucleated RBC % Seg Neutrophils # Man Monocytes # (Manual) Eosinophils # (Manual) Percent Retic INR D-Dimer POC ABG pH 7.341 L POC ABG pCO2 POC ABG pO2 47 L Sodium Potassium Chloride Carbon Dioxide BUN Creatinine Glucose POC Glucose 127 H Lactic Acid Calcium Total Bilirubin Lactate Dehydrogenase Total Creatine Kinase CK-MB (CK-2) C-Reactive Protein NT-Pro-B Natriuret Pep Total Protein Albumin Urine WBC (Auto) Urine Creatinine Urine Total Protein Vancomycin Trough Random Vancomycin Crossmatch 10/05/16 10/05/16 10/05/16 01:27 03:50 05:00 WBC RBC Hgb Hct MCV MCH RDW Plt Count Seg Neuts % (Manual) Lymphocytes % (Manual) Eosinophils % (Manual) Nucleated RBC % Seg Neutrophils # Man Monocytes # (Manual) Eosinophils # (Manual) Percent Retic INR D-Dimer POC ABG pH 7.330 L POC ABG pCO2 45.3 H POC ABG pO2 53 L Sodium Potassium Chloride Carbon Dioxide BUN 49 H Creatinine 1.6 H Glucose 112 H POC Glucose Lactic Acid Calcium Total Bilirubin Lactate Dehydrogenase Total Creatine Kinase CK-MB (CK-2) C-Reactive Protein NT-Pro-B Natriuret Pep Total Protein Albumin Urine WBC (Auto) Urine Creatinine Urine Total Protein Vancomycin Trough Random Vancomycin 43.6 H Crossmatch 10/05/16 10/05/16 05:30 12:08 WBC RBC Hgb Hct MCV MCH RDW Plt Count Seg Neuts % (Manual) Lymphocytes % (Manual) Eosinophils % (Manual) Nucleated RBC % Seg Neutrophils # Man Monocytes # (Manual) Eosinophils # (Manual) Percent Retic INR D-Dimer POC ABG pH POC ABG pCO2 POC ABG pO2 Sodium Potassium Chloride Carbon Dioxide BUN Creatinine Glucose POC Glucose 141 H 149 H Lactic Acid Calcium Total Bilirubin Lactate Dehydrogenase Total Creatine Kinase CK-MB (CK-2) C-Reactive Protein NT-Pro-B Natriuret Pep Total Protein Albumin Urine WBC (Auto) Urine Creatinine Urine Total Protein Vancomycin Trough Random Vancomycin Crossmatch
[2016-10-05 15:47] LABS: ISTAT Base Excess -2; ISTAT HCO3 26.5; ISTAT PH 7.157 (7.35-7.45); ISTAT PO2 76 (80-105); ISTAT SO2 90; ISTAT TCO2 29
[2016-10-05 17:15] LABS: ISTAT Base Excess -2; ISTAT PCO2 80.5 (35-45); ISTAT PH 7.133 (7.35-7.45); ISTAT PO2 90 (80-105); ISTAT SO2 93; ISTAT TCO2 29
--- NOTE | 2016-10-05 20:02 | Consultation ---
History of Present Illness - Reason for Consult Consult date: 10/05/16 - History of Present Illness Patient seen/examined, in the icu on the vent, HR 130s, apeniec breathing, out look paints a poor prognosis.Family were here earlier. Past History Past Medical History: anemia (sickle cell anemia) Social history: no significant social history Family history: no significant family history Medications and Allergies Allergies Allergy/AdvReac Type Severity Reaction Status Date / Time No Known Allergies Allergy Unverified 10/13/13 13:21 Home Medications Medication Instructions Recorded Confirmed Last Taken Type Folic Acid [Folvite] 1 mg PO QDAY 10/13/13 09/18/16 09/18/16 History oxyCODONE /ACETAMINOPHEN [Percocet 1 tab PO Q6HR PRN #10 tablet 10/13/1309/18/16 Rx 5/325 mg] Promethazine [Phenergan] 25 mg PO Q6H PRN 08/16/14 09/18/16 09/18/16 History valACYclovir [Valtrex] 500 mg PO DAILY 08/16/14 09/18/16 09/18/16 History Active Meds: Active Medications Acetaminophen (Tylenol) 650 mg PO Q4H PRN PRN Reason: Pain MILD(1-3)/Fever >100.5/PALACIOS Last Admin: 10/02/16 20:06 Dose: 650 mg Albuterol/Ipratropium (Duoneb 0.5 Mg-3 Mg/3 Ml Soln) 1 ampul IH Q6HRT [facility] Last Admin: 10/05/16 19:52 Dose: 1 ampul Lipase/Protease/Amylase (Fritz Dr 10,500 Unit) 1 each FEEDTUBE PRN PRN PRN Reason: For Clogged Feeding Tube Arformoterol Tartrate (Brovana Nebu) 15 mcg IH Q12HRT [facility] Last Admin: 10/05/16 19:52 Dose: 15 mcg Aspirin (Aspirin) 325 mg PO QDAY [facility] Last Admin: 10/05/16 11:00 Dose: 325 mg Budesonide (Pulmicort) 0.5 mg IH Q12HRT [facility] Last Admin: 10/05/16 19:52 Dose: 0.5 mg Diphenhydramine HCl (Benadryl) 12.5 mg IV Q4H PRN PRN Reason: Itching Last Admin: 09/30/16 07:02 Dose: 12.5 mg Enoxaparin Sodium (Lovenox) 40 mg SUB-Q QDAY [facility] Last Admin: 10/05/16 11:00 Dose: 40 mg Famotidine (Pepcid) 20 mg PO BID [facility] Last Admin: 10/05/16 11:00 Dose: 20 mg Folic Acid (Folvite) 1 mg PO QDAY [facility] Last Admin: 10/05/16 11:00 Dose: 1 mg Hydrophilic Ointment (Vaseline Lip Therapy) 1 applic TP Q2HR PRN PRN Reason: Dry Lips Fentanyl Citrate (Fentanyl Drip Premix) 2,000 mcg in 100 mls @ 4.649 mls/hr IV TITR [facility]; 1 MCG/KG/HR PRN Reason: Protocol Last Admin: 10/05/16 11:58 Dose: 2 mcg/kg/hr, 9.299 mls/hr Propofol (Diprivan 10 Mg/Ml) 1,000 mg in 100 mls @ 2.79 mls/hr IV TITR [facility]; 5 MCG/KG/MIN PRN Reason: Protocol Midazolam HCl 100 mg/ Sodium (Chloride) 100 mls @ 2 mls/hr IV TITR [facility]; 2 MG/HR PRN Reason: Protocol Last Admin: 10/04/16 12:54 Dose: 2 mg/hr, 2 mls/hr Sodium Chloride (Nacl 0.9% 1000 Ml) 1,000 mls @ 50 mls/hr IV DIRECT [facility] Last Admin: 10/04/16 13:04 Dose: 50 mls/hr Cefepime HCl (Maxipime/Ns 2 Gm/100 Ml) 2 gm in 100 mls @ 200 mls/hr IV Q12HR [facility] PRN Reason: Protocol Insulin Human Regular (Novolin R) 0 units SUB-Q Q6HR [facility] PRN Reason: Protocol Last Admin: 10/05/16 17:20 Dose: 1 units Metronidazole (Flagyl) 500 mg FEEDTUBE Q8HR [facility] Last Admin: 10/05/16 14:38 Dose: 500 mg Multi-Ingred Cream/Lotion/Oil/Oint (Artificial Tears Ophth Oint) 1 applic OU Q4HR PRN PRN Reason: Dry Eye(s) Multivitamins (Theragran Tab) 1 each PO QDAY [facility] Last Admin: 10/05/16 11:00 Dose: 1 each Ondansetron HCl (Zofran) 4 mg IV Q8H PRN PRN Reason: Nausea And Vomiting Last Admin: 09/29/16 23:07 Dose: 4 mg Promethazine HCl (Phenergan) 25 mg [place] Q6H PRN PRN Reason: Nausea And Vomiting Last Admin: 09/25/16 22:05 Dose: 25 mg Senna (Senokot) 17.2 mg PO DAILY [facility] Last Admin: 10/05/16 11:00 Dose: 17.2 mg Simple Syrup (Simple Syrup) 15 ml FEEDTUBE PRN PRN PRN Reason: Hypoglycemia Simple Syrup (Simple Syrup) 30 ml FEEDTUBE PRN PRN PRN Reason: Hypoglycemia Sodium Bicarbonate (Sodium Bicarbonate) 325 mg FEEDTUBE PRN PRN PRN Reason: For Clogged Feeding Tube Sodium Chloride (Sodium Chloride Flush Syringe 10 Ml) 10 ml IV PRN PRN PRN Reason: LINE FLUSH Tramadol HCl (Ultram) 50 mg PO Q4H PRN PRN Reason: Pain, Moderate (4-6) Last Admin: 09/26/16 20:45 Dose: 50 mg Valacyclovir HCl (Valtrex) 500 mg PO DAILY [facility] Last Admin: 10/05/16 11:00 Dose: 500 mg Vancomycin HCl (Vancomycin Pharmacy To Dose) 1 each IV PKCONSULT [facility] PRN Reason: Protocol Zolpidem Tartrate (Ambien) 5 mg PO QHS PRN PRN Reason: Sleep Review of Systems Breasts: deferred Cardiovascular: other (on the vent.) Neurological: other (on the vent.) Exam - Constitutional Vitals: Temp Pulse Resp BP Pulse Ox 100.0 F H 132 H 14 135/74 99 10/05/16 19:46 10/05/16 19:52 10/05/16 19:00 10/05/16 19:52 10/05/16 19:52 General appearance: Present: no acute distress, well-nourished - EENT Eyes: Present: PERRL ENT: hearing intact, clear oral mucosa - Neck Neck: Present: supple, normal ROM - Respiratory Respiratory: bilateral: other (on the vent) - Cardiovascular Heart Sounds: Present: S1 & S2. Absent: rub, click - Extremities Extremities: pulses symmetrical, No edema Peripheral Pulses: within normal limits - Abdominal General gastrointestinal: Present: soft, non-tender, non-distended, normal bowel sounds, other (on the vent, unresponssive.) Female genitourinary: Present: deferred - Rectal Rectal Exam: deferred - Integumentary Integumentary: Present: clear, warm, dry Results - Labs CBC & Chem 7: 10/05/16 01:27 10/05/16 01:27 Labs: Abnormal lab results 10/04/16 10/04/16 10/05/16 Range/Units 20:13 23:05 01:27 WBC 36.1 H (4.5-11.0) K/mm3 RBC 2.99 L (3.65-5.03) M/mm3 Hgb 7.3 L (10.1-14.3) gm/dl Hct 23.5 L (30.3-42.9) % MCH 25 L (28-32) pg RDW 19.6 H (13.2-15.2) % POC ABG pH 7.341 L (7.35-7.45) POC ABG pCO2 (35-45) POC ABG pO2 47 L (80-105) BUN (7-17) mg/dL Creatinine (0.7-1.2) mg/dL Glucose (65-100) mg/dL POC Glucose 127 H (70-105) C-Reactive Protein (0.00-1.30) mg/dL Random Vancomycin (0-40.0) ug/mL 10/05/16 10/05/16 10/05/16 Range/Units 01:27 03:50 05:00 WBC (4.5-11.0) K/mm3 RBC (3.65-5.03) M/mm3 Hgb (10.1-14.3) gm/dl Hct (30.3-42.9) % MCH (28-32) pg RDW (13.2-15.2) % POC ABG pH 7.330 L (7.35-7.45) POC ABG pCO2 45.3 H (35-45) POC ABG pO2 53 L (80-105) BUN 49 H (7-17) mg/dL Creatinine 1.6 H (0.7-1.2) mg/dL Glucose 112 H (65-100) mg/dL POC Glucose (70-105) C-Reactive Protein (0.00-1.30) mg/dL Random Vancomycin 43.6 H (0-40.0) ug/mL 10/05/16 10/05/16 10/05/16 Range/Units 05:30 12:08 14:00 WBC (4.5-11.0) K/mm3 RBC (3.65-5.03) M/mm3 Hgb (10.1-14.3) gm/dl Hct (30.3-42.9) % MCH (28-32) pg RDW (13.2-15.2) % POC ABG pH (7.35-7.45) POC ABG pCO2 (35-45) POC ABG pO2 (80-105) BUN (7-17) mg/dL Creatinine (0.7-1.2) mg/dL Glucose (65-100) mg/dL POC Glucose 141 H 149 H (70-105) C-Reactive Protein 28.40 H (0.00-1.30) mg/dL Random Vancomycin (0-40.0) ug/mL 10/05/16 10/05/16 Range/Units 15:37 16:41 WBC (4.5-11.0) K/mm3 RBC (3.65-5.03) M/mm3 Hgb (10.1-14.3) gm/dl Hct (30.3-42.9) % MCH (28-32) pg RDW (13.2-15.2) % POC ABG pH 7.157 L 7.133 L (7.35-7.45) POC ABG pCO2 75.0 H 80.5 H (35-45) POC ABG pO2 76 L (80-105) BUN (7-17) mg/dL Creatinine (0.7-1.2) mg/dL Glucose (65-100) mg/dL POC Glucose (70-105) C-Reactive Protein (0.00-1.30) mg/dL Random Vancomycin (0-40.0) ug/mL Assessment and Plan - Patient Problems (1) Arthritis of left hip Current Visit: Yes Status: Deleted Plan to address problem: Follow post surgical management. (2) Avascular necrosis of bone of left hip Current Visit: Yes Status: Deleted Plan to address problem: Post surgical pain management., post surgical anticoagulation. continue same. (3) Sepsis Current Visit: Yes Status: Acute Qualifiers: Sepsis type: sepsis due to unspecified organism Qualified Code(s): A41.9 - Sepsis, unspecified organism Plan to address problem: SEE w/up in the notes. No improvement so far. (4) Sleep apnea syndrome Current Visit: Yes Status: Acute Qualifiers: Sleep apnea type: S Plan to address problem: oxygen/BIPAP management. Patient now in full resp failure, and on the vent. (5) UTI (urinary tract infection) Current Visit: Yes Status: Acute Qualifiers: Urinary tract infection type: U Hematuria presence: H Indwelling urinary catheter type: I Encounter type: E Plan to address problem: patient already on abx iv. may need culture sent. culture no growth. (6) Anemia Current Visit: Yes Status: Acute Qualifiers: Anemia type: A Iron deficiency anemia type: I Vitamin B12 deficiency anemia type: V Folate deficiency anemia type: F Bone marrow failure anemia type: B Hemolytic anemia type: H Other causes of anemia: O
[2016-10-05 20:20] LABS: ISTAT Base Excess -1; ISTAT PCO2 69.5 (35-45); ISTAT PH 7.198 (7.35-7.45); ISTAT PO2 92 (80-105); ISTAT SO2 94; ISTAT TCO2 29
[2016-10-05] MEDS: MAXIPIME/NS 2 GM/100 ML 2 GM/100 ML BAG IV SCH (22:00)
[2016-10-06] MEDS: DUONEB 0.5 MG-3 MG/3 ML SOLN IH SCH ×4 (01:44→20:33)
[2016-10-06] MEDS: fentaNYL DRIP Premix 2,000 MCG/100 ML BAG IV SCH ×3 (02:00→15:01)
[2016-10-06 04:51] LABS: Hematocrit 24.5 % (30.3-42.9); Hemoglobin 7.5 gm/dl (10.1-14.3); Mean Corpuscular HGB Conc 31 % (30-34); Mean Corpuscular Volume 80 fl (79-97); Platelet Count 204 K/mm3 (140-440); Red Blood Count 3.08 M/mm3 (3.65-5.03)
[2016-10-06 04:59] LABS: BUN/Creatinine Ratio 36.25; Calcium 9.2 mg/dL (8.4-10.2); Chloride 114.1 mmol/L (98-107)
[2016-10-06] MEDS: FLAGYL FEEDTUBE SCH ×3 (05:41→21:46)
[2016-10-06 05:54] LABS: Mean Corpuscular Hemoglobin 25 pg (28-32); Red Cell Distribution Width 20.1 % (13.2-15.2)
[2016-10-06 05:56] LABS: White Blood Count 45.3 K/mm3 (4.5-11.0)
[2016-10-06 06:33] LABS: ISTAT Base Excess -1; ISTAT HCO3 26.3; ISTAT PCO2 63.3 (35-45); ISTAT PH 7.226 (7.35-7.45); ISTAT PO2 87 (80-105); ISTAT SO2 94; ISTAT TCO2 28
[2016-10-06 08:09] LABS: Anisocytosis 3+; Basophils % (Manual) 0 % (0.0-1.8); Blastocytes % (Manual) 0 %; Hypochromasia 2+
[2016-10-06 08:10] LABS: Polychromasia 1+; Target Cells 1+
[2016-10-06 08:11] LABS: Giant Platelets Few
[2016-10-06 08:12] LABS: Diff Status Complete; Smudge Cells Rare
[2016-10-06] MEDS: PULMICORT IH SCH ×2 (08:15→20:32)
[2016-10-06] MEDS: BROVANA NEBU IH SCH ×2 (08:15→20:32)
--- NOTE | 2016-10-06 08:52 | Progress Note ---
Assessment and Plan 1) Avascular necrosis of bone of left hip Current Visit: Yes Status: Chronic Plan to address problem: S/P Athroplasty to left hip on 09/25/16 (2) Acute respiratory failure with hypoxia Current Visit: Yes Status: Acute Plan to address problem: ARDS, On vent support as per pulmonary (3) Acute renal failure due to tubular necrosis Current Visit: Yes Status: Acute Plan to address problem: stable Cr she has minimal dilation in central collecting system bilaterally but unlikely any obstruction since she is non oliguric will start lasix 40 mg IV qday Avoid Nephrotoxic agents Renally dose medications Monitor I/O's (4) Sepsis syndrome Current Visit: Yes Status: Acute Plan to address problem: ID on board. on broad spectrum antibiotics, negative cultures (5) Acute hypernatremia Current Visit: Yes Status: Acute Plan to address problem: will increase free water flushes via NGT to 350 cc Q4H Subjective Date of service: 10/06/16 Principal diagnosis: Acute Hypoxemic Respiratory Failure; ARDS Interval history: sedated and intubated Objective - Vital Signs Vital signs: Vital Signs - 12hr 10/05/16 10/05/16 10/05/16 20:51 21:00 21:11 Temperature Pulse Rate 132 H 131 H 134 H Pulse Rate [ Anterior Bilateral Throughout] Pulse Rate [ From Monitor] Respiratory 16 26 H 20 Rate Respiratory Rate [Anterior Bilateral Throughout] Blood Pressure 150/71 141/75 141/75 O2 Sat by Pulse 99 90 99 Oximetry 10/05/16 10/05/16 10/05/16 21:21 21:30 21:41 Temperature Pulse Rate 133 H 135 H 134 H Pulse Rate [ Anterior Bilateral Throughout] Pulse Rate [ From Monitor] Respiratory 20 30 H 23 Rate Respiratory Rate [Anterior Bilateral Throughout] Blood Pressure 141/75 148/70 148/70 O2 Sat by Pulse 98 95 99 Oximetry 10/05/16 10/05/16 10/05/16 21:51 22:00 22:11 Temperature Pulse Rate 135 H 135 H 136 H Pulse Rate [ Anterior Bilateral Throughout] Pulse Rate [ From Monitor] Respiratory 19 16 17 Rate Respiratory Rate [Anterior Bilateral Throughout] Blood Pressure 148/70 128/107 128/107 O2 Sat by Pulse 98 88 98 Oximetry 10/05/16 10/05/16 10/05/16 22:21 22:30 22:41 Temperature Pulse Rate 137 H 134 H 136 H Pulse Rate [ Anterior Bilateral Throughout] Pulse Rate [ From Monitor] Respiratory 20 28 H 17 Rate Respiratory Rate [Anterior Bilateral Throughout] Blood Pressure 128/107 141/78 148/70 O2 Sat by Pulse 98 92 97 Oximetry 10/05/16 10/05/16 10/05/16 22:51 23:00 23:11 Temperature Pulse Rate 134 H 134 H 131 H Pulse Rate [ Anterior Bilateral Throughout] Pulse Rate [ From Monitor] Respiratory 16 26 H 12 Rate Respiratory Rate [Anterior Bilateral Throughout] Blood Pressure 148/70 134/66 134/66 O2 Sat by Pulse 98 92 99 Oximetry 10/05/16 10/05/16 10/05/16 23:19 23:21 23:30 Temperature Pulse Rate 127 H 127 H 123 H Pulse Rate [ Anterior Bilateral Throughout] Pulse Rate [ From Monitor] Respiratory 20 14 22 Rate Respiratory Rate [Anterior Bilateral Throughout] Blood Pressure 134/66 134/66 123/57 O2 Sat by Pulse 99 99 95 Oximetry 10/05/16 10/05/16 10/06/16 23:41 23:51 00:00 Temperature 100.2 F H Pulse Rate 119 H 120 H 117 H Pulse Rate [ Anterior Bilateral Throughout] Pulse Rate [ 113 H From Monitor] Respiratory 13 13 14 Rate Respiratory Rate [Anterior Bilateral Throughout] Blood Pressure 123/57 123/57 114/56 O2 Sat by Pulse 100 100 99 Oximetry 10/06/16 10/06/16 10/06/16 00:01 00:11 00:21 Temperature Pulse Rate 118 H 115 H 114 H Pulse Rate [ Anterior Bilateral Throughout] Pulse Rate [ From Monitor] Respiratory 13 13 Rate Respiratory Rate [Anterior Bilateral Throughout] Blood Pressure 114/56 114/56 114/56 O2 Sat by Pulse 99 99 99 Oximetry 10/06/16 10/06/16 10/06/16 00:30 00:41 00:51 Temperature Pulse Rate 116 H 114 H 114 H Pulse Rate [ Anterior Bilateral Throughout] Pulse Rate [ From Monitor] Respiratory 13 13 14 Rate Respiratory Rate [Anterior Bilateral Throughout] Blood Pressure 115/55 114/56 114/56 O2 Sat by Pulse 99 99 99 Oximetry 10/06/16 10/06/16 10/06/16 01:00 01:11 01:21 Temperature Pulse Rate 112 H 113 H 114 H Pulse Rate [ Anterior Bilateral Throughout] Pulse Rate [ From Monitor] Respiratory 14 14 14 Rate Respiratory Rate [Anterior Bilateral Throughout] Blood Pressure 117/57 117/57 117/57 O2 Sat by Pulse 99 100 100 Oximetry 10/06/16 10/06/16 10/06/16 01:30 01:41 01:44 Temperature Pulse Rate 113 H 111 H Pulse Rate [ 111 H Anterior Bilateral Throughout] Pulse Rate [ From Monitor] Respiratory 13 13 Rate Respiratory 17 Rate [Anterior Bilateral Throughout] Blood Pressure 108/56 108/56 O2 Sat by Pulse 100 100 Oximetry 10/06/16 10/06/16 10/06/16 01:51 01:54 02:00 Temperature Pulse Rate 114 H 114 H Pulse Rate [ 116 H Anterior Bilateral Throughout] Pulse Rate [ From Monitor] Respiratory 25 H 15 Rate Respiratory 18 Rate [Anterior Bilateral Throughout] Blood Pressure 108/56 120/65 O2 Sat by Pulse 98 100 Oximetry 10/06/16 10/06/16 10/06/16 02:11 02:21 02:30 Temperature Pulse Rate 117 H 116 H 117 H Pulse Rate [ Anterior Bilateral Throughout] Pulse Rate [ From Monitor] Respiratory 14 13 13 Rate Respiratory Rate [Anterior Bilateral Throughout] Blood Pressure 120/65 120/65 127/62 O2 Sat by Pulse 98 99 97 Oximetry 10/06/16 10/06/16 10/06/16 02:41 02:51 03:00 Temperature Pulse Rate 116 H 115 H 113 H Pulse Rate [ Anterior Bilateral Throughout] Pulse Rate [ From Monitor] Respiratory 16 14 13 Rate Respiratory Rate [Anterior Bilateral Throughout] Blood Pressure 127/62 127/62 134/58 O2 Sat by Pulse 100 100 97 Oximetry 10/06/16 10/06/16 10/06/16 03:11 03:21 03:26 Temperature Pulse Rate 113 H 114 H 114 H Pulse Rate [ Anterior Bilateral Throughout] Pulse Rate [ From Monitor] Respiratory 14 15 Rate Respiratory Rate [Anterior Bilateral Throughout] Blood Pressure 134/58 134/58 134/58 O2 Sat by Pulse 100 100 100 Oximetry 10/06/16 10/06/16 10/06/16 03:30 03:32 03:41 Temperature Pulse Rate 113 H 113 H Pulse Rate [ Anterior Bilateral Throughout] Pulse Rate [ 110 H From Monitor] Respiratory 14 26 H 13 Rate Respiratory Rate [Anterior Bilateral Throughout] Blood Pressure 126/63 126/63 O2 Sat by Pulse 92 98 100 Oximetry 10/06/16 10/06/16 10/06/16 03:45 03:51 04:00 Temperature 100.3 F H Pulse Rate 108 H 114 H Pulse Rate [ Anterior Bilateral Throughout] Pulse Rate [ From Monitor] Respiratory 13 14 Rate Respiratory Rate [Anterior Bilateral Throughout] Blood Pressure 126/63 121/65 O2 Sat by Pulse 100 95 Oximetry 10/06/16 10/06/16 10/06/16 04:11 04:21 04:30 Temperature Pulse Rate 114 H 110 H 112 H Pulse Rate [ Anterior Bilateral Throughout] Pulse Rate [ From Monitor] Respiratory 13 13 14 Rate Respiratory Rate [Anterior Bilateral Throughout] Blood Pressure 121/65 121/65 129/67 O2 Sat by Pulse 100 100 98 Oximetry 10/06/16 10/06/16 10/06/16 04:41 04:51 05:00 Temperature Pulse Rate 108 H 116 H 115 H Pulse Rate [ Anterior Bilateral Throughout] Pulse Rate [ From Monitor] Respiratory 13 16 14 Rate Respiratory Rate [Anterior Bilateral Throughout] Blood Pressure 129/67 129/67 135/68 O2 Sat by Pulse 100 100 92 Oximetry 10/06/16 10/06/16 10/06/16 05:10 05:20 05:30 Temperature Pulse Rate 114 H 114 H 113 H Pulse Rate [ Anterior Bilateral Throughout] Pulse Rate [ From Monitor] Respiratory 13 11 L 16 Rate Respiratory Rate [Anterior Bilateral Throughout] Blood Pressure 135/68 135/68 118/66 O2 Sat by Pulse 100 100 96 Oximetry 10/06/16 10/06/16 10/06/16 05:41 05:51 06:00 Temperature Pulse Rate 117 H 115 H 115 H Pulse Rate [ Anterior Bilateral Throughout] Pulse Rate [ From Monitor] Respiratory 16 13 14 Rate Respiratory Rate [Anterior Bilateral Throughout] Blood Pressure 118/66 118/66 118/72 O2 Sat by Pulse 100 100 96 Oximetry 10/06/16 10/06/16 10/06/16 06:11 06:21 06:30 Temperature Pulse Rate 112 H 115 H 113 H Pulse Rate [ Anterior Bilateral Throughout] Pulse Rate [ From Monitor] Respiratory 13 14 13 Rate Respiratory Rate [Anterior Bilateral Throughout] Blood Pressure 118/72 118/72 128/62 O2 Sat by Pulse 100 100 93 Oximetry 10/06/16 10/06/16 10/06/16 06:41 06:51 07:00 Temperature Pulse Rate 117 H 114 H 111 H Pulse Rate [ Anterior Bilateral Throughout] Pulse Rate [ From Monitor] Respiratory 13 16 17 Rate Respiratory Rate [Anterior Bilateral Throughout] Blood Pressure 128/62 128/62 122/66 O2 Sat by Pulse 100 100 100 Oximetry 10/06/16 10/06/16 10/06/16 07:11 07:18 07:21 Temperature 99.0 F Pulse Rate 121 H 113 H Pulse Rate [ Anterior Bilateral Throughout] Pulse Rate [ From Monitor] Respiratory 24 13 Rate Respiratory Rate [Anterior Bilateral Throughout] Blood Pressure 160/77 160/77 O2 Sat by Pulse 100 94 Oximetry 10/06/16 10/06/16 10/06/16 07:30 07:41 07:51 Temperature Pulse Rate 115 H 115 H 117 H Pulse Rate [ Anterior Bilateral Throughout] Pulse Rate [ From Monitor] Respiratory 13 13 13 Rate Respiratory Rate [Anterior Bilateral Throughout] Blood Pressure 147/74 147/74 147/74 O2 Sat by Pulse 87 95 97 Oximetry 10/06/16 10/06/16 10/06/16 08:00 08:05 08:26 Temperature Pulse Rate 114 H 114 H Pulse Rate [ 117 H 117 H Anterior Bilateral Throughout] Pulse Rate [ 112 H From Monitor] Respiratory 13 Rate Respiratory 22 26 H Rate [Anterior Bilateral Throughout] Blood Pressure 127/63 127/63 O2 Sat by Pulse 90 97 Oximetry - General Appearance General appearance: sedated on ventilator, intubated EENT: ATNC, PERRL, mucous membranes dry Neck: no JVD, no carotid bruit Respiratory: Present: Rales, Ronchi Cardiology: regular, tachycardia, S1S2 Gastrointestinal: normoactive bowel sounds, no tenderness, no distended, no masses, obese Integumentary: no rash, warm and dry Neurologic: other (sedated) Musculoskeletal: other (1+ pitting edema in all ext) Psychiatric: other (intubated) - Lab 10/06/16 03:57 10/06/16 03:57 Most recent lab results Calcium 9.2 mg/dL (8.4-10.2) 10/06/16 03:57 Phosphorus 3.60 mg/dL (2.5-4.5) 10/04/16 04:03 Urine Creatinine 63.2 mg/dL (0.1-20.0) H 10/03/16 15:54 Urine Sodium 20 mEq/L 10/03/16 15:54 Urine Total Protein 67 mg/dL (5-11.8) H 10/03/16 15:54
[2016-10-06] MEDS: TYLENOL PO PRN (08:59)
[2016-10-06] MEDS ORDERED: NACL 0.45% 1000 ML 1,000 ML IV SCH (09:00)
[2016-10-06] MEDS: LASIX IV SCH (09:17)
[2016-10-06] MEDS: FOLVITE PO SCH (09:17)
[2016-10-06] MEDS: ASPIRIN PO SCH (09:17)
[2016-10-06] MEDS: SENOKOT PO SCH (09:18)
[2016-10-06] MEDS: LOVENOX SUB-Q SCH (09:18)
[2016-10-06] MEDS: VALTREX PO SCH (09:18)
[2016-10-06] MEDS: PEPCID PO SCH ×2 (09:18→21:46)
[2016-10-06] MEDS: THERAGRAN Tab PO SCH (09:19)
[2016-10-06] MEDS: MAXIPIME/NS 2 GM/100 ML 2 GM/100 ML BAG IV SCH ×2 (09:29→21:46)
--- NOTE | 2016-10-06 09:34 | XRay Report ---
AP CHEST: HISTORY: Followup respiratory failure Lines and support devices remain in good position. Bilateral infiltrates or pulmonary edema has decreased by 50% since yesterday's exam. No large pleural effusion or pneumothorax. Heart size is within normal limits. IMPRESSION: Significant improvement in the bilateral infiltrates or pulmonary edema.
--- NOTE | 2016-10-06 09:52 | Progress Note ---
Assessment and Plan The patient is a 41-year-old female with a history of sickle cell disease who was admitted for total hip arthroplasty for avascular necrosis of the left hip. She had left total hip arthroplasty on 09/25/2016 and developed acute hypoxemic respiratory failure following the POD 2 likely from ARDS and ultimately required intubation on 09/27/2016. Her hemoglobin level dropped from 8.1-6.9 on 09/30/2016, also noted to have hypokalemia with potassium level 3.1. Hospitalist service consulted for medical management. Acute respiratory failure - likely due to ARDS with PNA, intubated on 09/27/16 - on mechanical ventilation with 85% FiO2 today - pulmonary following, cont nebulizer, vent support - wean off as tolerated Severe anemia - likely due to sickle cell crisis - transfused 1 unit PRBC on 10/01 - monitor h and H - hematology following Avscular necrosis of the left hip - s/p total left hip arthoplasty on 09/25/16 Hypokalemia -Status post replacement Sepsis syndrome - Likely from ARDS - Spiking temp, wbc count continue to increased - Continue with IV cefepime and vancomycin - Cultures are negative - ID following, CT abdomen/pelvis unremarkable Hypernatremia - improved with hypotonic iv fluid - cont her on normal saline and free water with tube feeding - Monitor BMP CARLYN - likely from sepsis syndrome -cont iv fluid, monitor renal function - nephrology following The high probability of a clinically significant, sudden or life threatening deterioration of the system(s) required my full and direct attention, intervention and personal management. The aggregate critical care time was [35] minutes. This time is in addition to time spent performing reported procedures but includes the following: [x] Data Review and interpretation [x] Patient assessment and monitoring of vital signs [x] Documentation [x] Medication orders and management Subjective Date of service: 10/06/16 Principal diagnosis: Acute Hypoxemic Respiratory Failure; ARDS Interval history: Patient seen and examined. Medical records and medication list reviewed. No acute event overnight noted by the RN. Patient remained intubated and sedated Had CT abdomen/pelvis showed no acute finding, CT chest showed PNA Discussed plan of care at bedside with RN WBC count >45,000 today Objective - Exam Narrative Exam: GENERAL: well-developed and well-nourished [place] female lying on bed appeared to be in no discomfort. Intubated and sedated. HEENT: Normocephalic. Atraumatic. No conjunctival congestion or icterus. Patient has moist mucous membranes. NECK: Supple. Trachea midline. ET tube in place CHEST/LUNGS: Coarse breath sounds auscultated bilaterally, on mechanical ventilation HEART/CARDIOVASCULAR: Regular in rate and rhythm. S1 and S2 positive. ABDOMEN: Abdomen is soft, nontender. Patient has normal bowel sounds. SKIN: There is no rash. Warm and dry. NEURO: Sedated. MUSCULOSKELETAL: No joint effusion or tenderness. EXTRIMITY: No edema, no cyanosis or clubbing. PSYCH: Unable to assess. - Constitutional Vitals: Vital Signs - 12hr 10/05/16 10/05/16 10/05/16 22:00 22:11 22:21 Temperature Pulse Rate 135 H 136 H 137 H Pulse Rate [ Anterior Bilateral Throughout] Pulse Rate [ From Monitor] Respiratory 16 17 20 Rate Respiratory Rate [Anterior Bilateral Throughout] Blood Pressure 128/107 128/107 128/107 O2 Sat by Pulse 88 98 98 Oximetry 10/05/16 10/05/16 10/05/16 22:30 22:41 22:51 Temperature Pulse Rate 134 H 136 H 134 H Pulse Rate [ Anterior Bilateral Throughout] Pulse Rate [ From Monitor] Respiratory 28 H 17 16 Rate Respiratory Rate [Anterior Bilateral Throughout] Blood Pressure 141/78 148/70 148/70 O2 Sat by Pulse 92 97 98 Oximetry 10/05/16 10/05/16 10/05/16 23:00 23:11 23:19 Temperature Pulse Rate 134 H 131 H 127 H Pulse Rate [ Anterior Bilateral Throughout] Pulse Rate [ From Monitor] Respiratory 26 H 12 20 Rate Respiratory Rate [Anterior Bilateral Throughout] Blood Pressure 134/66 134/66 134/66 O2 Sat by Pulse 92 99 99 Oximetry 10/05/16 10/05/16 10/05/16 23:21 23:30 23:41 Temperature Pulse Rate 127 H 123 H 119 H Pulse Rate [ Anterior Bilateral Throughout] Pulse Rate [ From Monitor] Respiratory 14 22 13 Rate Respiratory Rate [Anterior Bilateral Throughout] Blood Pressure 134/66 123/57 123/57 O2 Sat by Pulse 99 95 100 Oximetry 10/05/16 10/06/16 10/06/16 23:51 00:00 00:01 Temperature 100.2 F H Pulse Rate 120 H 117 H 118 H Pulse Rate [ Anterior Bilateral Throughout] Pulse Rate [ 113 H From Monitor] Respiratory 13 14 Rate Respiratory Rate [Anterior Bilateral Throughout] Blood Pressure 123/57 114/56 114/56 O2 Sat by Pulse 100 99 99 Oximetry 10/06/16 10/06/16 10/06/16 00:11 00:21 00:30 Temperature Pulse Rate 115 H 114 H 116 H Pulse Rate [ Anterior Bilateral Throughout] Pulse Rate [ From Monitor] Respiratory 13 13 13 Rate Respiratory Rate [Anterior Bilateral Throughout] Blood Pressure 114/56 114/56 115/55 O2 Sat by Pulse 99 99 99 Oximetry 10/06/16 10/06/16 10/06/16 00:41 00:51 01:00 Temperature Pulse Rate 114 H 114 H 112 H Pulse Rate [ Anterior Bilateral Throughout] Pulse Rate [ From Monitor] Respiratory 13 14 14 Rate Respiratory Rate [Anterior Bilateral Throughout] Blood Pressure 114/56 114/56 117/57 O2 Sat by Pulse 99 99 99 Oximetry 10/06/16 10/06/16 10/06/16 01:11 01:21 01:30 Temperature Pulse Rate 113 H 114 H 113 H Pulse Rate [ Anterior Bilateral Throughout] Pulse Rate [ From Monitor] Respiratory 14 14 13 Rate Respiratory Rate [Anterior Bilateral Throughout] Blood Pressure 117/57 117/57 108/56 O2 Sat by Pulse 100 100 100 Oximetry 10/06/16 10/06/16 10/06/16 01:41 01:44 01:51 Temperature Pulse Rate 111 H 114 H Pulse Rate [ 111 H Anterior Bilateral Throughout] Pulse Rate [ From Monitor] Respiratory 13 25 H Rate Respiratory 17 Rate [Anterior Bilateral Throughout] Blood Pressure 108/56 108/56 O2 Sat by Pulse 100 98 Oximetry 10/06/16 10/06/16 10/06/16 01:54 02:00 02:11 Temperature Pulse Rate 114 H 117 H Pulse Rate [ 116 H Anterior Bilateral Throughout] Pulse Rate [ From Monitor] Respiratory 15 14 Rate Respiratory 18 Rate [Anterior Bilateral Throughout] Blood Pressure 120/65 120/65 O2 Sat by Pulse 100 98 Oximetry 10/06/16 10/06/16 10/06/16 02:21 02:30 02:41 Temperature Pulse Rate 116 H 117 H 116 H Pulse Rate [ Anterior Bilateral Throughout] Pulse Rate [ From Monitor] Respiratory 13 13 16 Rate Respiratory Rate [Anterior Bilateral Throughout] Blood Pressure 120/65 127/62 127/62 O2 Sat by Pulse 99 97 100 Oximetry 0510/06/16 10/06/16 02:51 03:00 03:11 Temperature Pulse Rate 115 H 113 H 113 H Pulse Rate [ Anterior Bilateral Throughout] Pulse Rate [ From Monitor] Respiratory 14 13 14 Rate Respiratory Rate [Anterior Bilateral Throughout] Blood Pressure 127/62 134/58 134/58 O2 Sat by Pulse 100 97 100 Oximetry 10/06/16 10/06/16 10/06/16 03:21 03:26 03:30 Temperature Pulse Rate 114 H 114 H 113 H Pulse Rate [ Anterior Bilateral Throughout] Pulse Rate [ From Monitor] Respiratory 15 14 Rate Respiratory Rate [Anterior Bilateral Throughout] Blood Pressure 134/58 134/58 126/63 O2 Sat by Pulse 100 100 92 Oximetry 10/06/16 10/06/16 10/06/16 03:32 03:41 03:45 Temperature 100.3 F H Pulse Rate 113 H Pulse Rate [ Anterior Bilateral Throughout] Pulse Rate [ 110 H From Monitor] Respiratory 26 H 13 Rate Respiratory Rate [Anterior Bilateral Throughout] Blood Pressure 126/63 O2 Sat by Pulse 98 100 Oximetry 10/06/16 10/06/16 10/06/16 03:51 04:00 04:11 Temperature Pulse Rate 108 H 114 H 114 H Pulse Rate [ Anterior Bilateral Throughout] Pulse Rate [ From Monitor] Respiratory 13 14 13 Rate Respiratory Rate [Anterior Bilateral Throughout] Blood Pressure 126/63 121/65 121/65 O2 Sat by Pulse 100 95 100 Oximetry 10/06/16 10/06/16 10/06/16 04:21 04:30 04:41 Temperature Pulse Rate 110 H 112 H 108 H Pulse Rate [ Anterior Bilateral Throughout] Pulse Rate [ From Monitor] Respiratory 13 14 13 Rate Respiratory Rate [Anterior Bilateral Throughout] Blood Pressure 121/65 129/67 129/67 O2 Sat by Pulse 100 98 100 Oximetry 10/06/16 10/06/16 10/06/16 04:51 05:00 05:10 Temperature Pulse Rate 116 H 115 H 114 H Pulse Rate [ Anterior Bilateral Throughout] Pulse Rate [ From Monitor] Respiratory 16 14 13 Rate Respiratory Rate [Anterior Bilateral Throughout] Blood Pressure 129/67 135/68 135/68 O2 Sat by Pulse 100 92 100 Oximetry 10/06/16 10/06/16 10/06/16 05:20 05:30 05:41 Temperature Pulse Rate 114 H 113 H 117 H Pulse Rate [ Anterior Bilateral Throughout] Pulse Rate [ From Monitor] Respiratory 11 L 16 16 Rate Respiratory Rate [Anterior Bilateral Throughout] Blood Pressure 135/68 118/66 118/66 O2 Sat by Pulse 100 96 100 Oximetry 10/06/16 10/06/16 10/06/16 05:51 06:00 06:11 Temperature Pulse Rate 115 H 115 H 112 H Pulse Rate [ Anterior Bilateral Throughout] Pulse Rate [ From Monitor] Respiratory 13 14 13 Rate Respiratory Rate [Anterior Bilateral Throughout] Blood Pressure 118/66 118/72 118/72 O2 Sat by Pulse 100 96 100 Oximetry 10/06/16 10/06/16 10/06/16 06:21 06:30 06:41 Temperature Pulse Rate 115 H 113 H 117 H Pulse Rate [ Anterior Bilateral Throughout] Pulse Rate [ From Monitor] Respiratory 14 13 13 Rate Respiratory Rate [Anterior Bilateral Throughout] Blood Pressure 118/72 128/62 128/62 O2 Sat by Pulse 100 93 100 Oximetry 10/06/16 10/06/16 10/06/16 06:51 07:00 07:11 Temperature Pulse Rate 114 H 111 H 121 H Pulse Rate [ Anterior Bilateral Throughout] Pulse Rate [ From Monitor] Respiratory 16 17 24 Rate Respiratory Rate [Anterior Bilateral Throughout] Blood Pressure 128/62 122/66 160/77 O2 Sat by Pulse 100 100 100 Oximetry 10/06/16 10/06/16 10/06/16 07:18 07:21 07:30 Temperature 99.0 F Pulse Rate 113 H 115 H Pulse Rate [ Anterior Bilateral Throughout] Pulse Rate [ From Monitor] Respiratory 13 13 Rate Respiratory Rate [Anterior Bilateral Throughout] Blood Pressure 160/77 147/74 O2 Sat by Pulse 94 87 Oximetry 10/06/16 10/06/16 10/06/16 07:41 07:51 08:00 Temperature Pulse Rate 115 H 117 H 114 H Pulse Rate [ Anterior Bilateral Throughout] Pulse Rate [ 112 H From Monitor] Respiratory 13 13 13 Rate Respiratory Rate [Anterior Bilateral Throughout] Blood Pressure 147/74 147/74 127/63 O2 Sat by Pulse 95 97 90 Oximetry 10/06/16 10/06/16 10/06/16 08:05 08:11 08:21 Temperature Pulse Rate 114 H 115 H 115 H Pulse Rate [ 117 H Anterior Bilateral Throughout] Pulse Rate [ From Monitor] Respiratory 13 13 Rate Respiratory 22 Rate [Anterior Bilateral Throughout] Blood Pressure 127/63 127/63 127/63 O2 Sat by Pulse 97 98 99 Oximetry 10/06/16 10/06/16 10/06/16 08:26 08:30 08:40 Temperature Pulse Rate 116 H 117 H Pulse Rate [ 117 H Anterior Bilateral Throughout] Pulse Rate [ From Monitor] Respiratory 13 10 L Rate Respiratory 26 H Rate [Anterior Bilateral Throughout] Blood Pressure 138/76 138/76 O2 Sat by Pulse 89 96 Oximetry 10/06/16 10/06/16 08:51 09:00 Temperature Pulse Rate 116 H 119 H Pulse Rate [ Anterior Bilateral Throughout] Pulse Rate [ From Monitor] Respiratory 13 13 Rate Respiratory Rate [Anterior Bilateral Throughout] Blood Pressure 138/76 138/73 O2 Sat by Pulse 96 90 Oximetry - Labs CBC & Chem 7: 10/06/16 03:57 10/06/16 03:57 Labs: Abnormal lab results 10/05/16 10/05/16 10/05/16 Range/Units 12:08 14:00 15:37 WBC (4.5-11.0) K/mm3 RBC (3.65-5.03) M/mm3 Hgb (10.1-14.3) gm/dl Hct (30.3-42.9) % MCH (28-32) pg RDW (13.2-15.2) % Seg Neuts % (Manual) (40.0-70.0) % Lymphocytes % (Manual) (13.4-35.0) % Nucleated RBC % (0.0-0.9) % Seg Neutrophils # Man (1.8-7.7) K/mm3 Monocytes # (Manual) (0.0-0.8) K/mm3 Eosinophils # (Manual) (0.0-0.4) K/mm3 POC ABG pH 7.157 L (7.35-7.45) POC ABG pCO2 75.0 H (35-45) POC ABG pO2 76 L (80-105) Sodium (137-145) mmol/L Chloride (98-107) mmol/L BUN (7-17) mg/dL Creatinine (0.7-1.2) mg/dL Glucose (65-100) mg/dL POC Glucose 149 H (70-105) C-Reactive Protein 28.40 H (0.00-1.30) mg/dL 10/05/16 10/05/16 10/05/16 Range/Units 16:41 17:15 19:58 WBC (4.5-11.0) K/mm3 RBC (3.65-5.03) M/mm3 Hgb (10.1-14.3) gm/dl Hct (30.3-42.9) % MCH (28-32) pg RDW (13.2-15.2) % Seg Neuts % (Manual) (40.0-70.0) % Lymphocytes % (Manual) (13.4-35.0) % Nucleated RBC % (0.0-0.9) % Seg Neutrophils # Man (1.8-7.7) K/mm3 Monocytes # (Manual) (0.0-0.8) K/mm3 Eosinophils # (Manual) (0.0-0.4) K/mm3 POC ABG pH 7.133 L 7.198 L (7.35-7.45) POC ABG pCO2 80.5 H 69.5 H (35-45) POC ABG pO2 (80-105) Sodium (137-145) mmol/L Chloride (98-107) mmol/L BUN (7-17) mg/dL Creatinine (0.7-1.2) mg/dL Glucose (65-100) mg/dL POC Glucose 151 H (70-105) C-Reactive Protein (0.00-1.30) mg/dL 10/05/16 10/06/16 10/06/16 Range/Units 23:50 03:57 03:57 WBC 45.3 H* (4.5-11.0) K/mm3 RBC 3.08 L (3.65-5.03) M/mm3 Hgb 7.5 L (10.1-14.3) gm/dl Hct 24.5 L (30.3-42.9) % MCH 25 L (28-32) pg RDW 20.1 H (13.2-15.2) % Seg Neuts % (Manual) 24.0 L (40.0-70.0) % Lymphocytes % (Manual) 10.0 L (13.4-35.0) % Nucleated RBC % 36.0 H (0.0-0.9) % Seg Neutrophils # Man 10.9 H (1.8-7.7) K/mm3 Monocytes # (Manual) 3.2 H (0.0-0.8) K/mm3 Eosinophils # (Manual) 0.5 H (0.0-0.4) K/mm3 POC ABG pH (7.35-7.45) POC ABG pCO2 (35-45) POC ABG pO2 (80-105) Sodium 152 H D (137-145) mmol/L Chloride 114.1 H (98-107) mmol/L BUN 58 H (7-17) mg/dL Creatinine 1.6 H (0.7-1.2) mg/dL Glucose 123 H (65-100) mg/dL POC Glucose 160 H (70-105) C-Reactive Protein (0.00-1.30) mg/dL 10/06/16 10/06/16 Range/Units 05:38 06:08 WBC (4.5-11.0) K/mm3 RBC (3.65-5.03) M/mm3 Hgb (10.1-14.3) gm/dl Hct (30.3-42.9) % MCH (28-32) pg RDW (13.2-15.2) % Seg Neuts % (Manual) (40.0-70.0) % Lymphocytes % (Manual) (13.4-35.0) % Nucleated RBC % (0.0-0.9) % Seg Neutrophils # Man (1.8-7.7) K/mm3 Monocytes # (Manual) (0.0-0.8) K/mm3 Eosinophils # (Manual) (0.0-0.4) K/mm3 POC ABG pH 7.226 L (7.35-7.45) POC ABG pCO2 63.3 H (35-45) POC ABG pO2 (80-105) Sodium (137-145) mmol/L Chloride (98-107) mmol/L BUN (7-17) mg/dL Creatinine (0.7-1.2) mg/dL Glucose (65-100) mg/dL POC Glucose 129 H (70-105) C-Reactive Protein (0.00-1.30) mg/dL
[2016-10-06] MEDS: D5NS 0.2% 1,000 ML IV SCH ×2 (11:14→22:53)
--- NOTE | 2016-10-06 13:02 | Progress Note ---
Assessment and Plan - Patient Problems (1) Acute respiratory failure with hypoxia Current Visit: Yes Status: Acute Plan to address problem: - continue APRV - permissive hypercapnia - continue bronchodilators and pulmonary toilet - continue aspiration precautions / VAP bundles - continue to wean oxygen for sats > 90-92% at this point - serial ABG's - lighten sedation to allow spontaneous breathing also - improving CXR and numbers (2) ARDS (adult respiratory distress syndrome) Current Visit: Yes Status: Acute Plan to address problem: - 2D ECHO reports normal EF without impaired relaxation - etiology unclear - treating empirically as HCAP - switched to APRV and tolerating so far (3) Obesity Current Visit: Yes Status: Acute Qualifiers: Obesity type: O Obesity severity: O Plan to address problem: - weight loss counselled earlier - outpatient sleep clinic evaluation at discharge (4) Avascular necrosis of bone of left hip Current Visit: Yes Status: Deleted Plan to address problem: - s/p hip replacement surgery - per orthopedic surgeon otherwise (5) Sepsis syndrome Current Visit: Yes Status: Acute Plan to address problem: - continue empiric AB's - ID evaluation ongoing - anti-infectives per ID recs - lactate WNL and CRP trending down (6) Anemia Current Visit: Yes Status: Acute Qualifiers: Anemia type: A Iron deficiency anemia type: I Vitamin B12 deficiency anemia type: V Folate deficiency anemia type: F Bone marrow failure anemia type: B Hemolytic anemia type: H Other causes of anemia: O Plan to address problem: - multifactorial - suspect ABLA component - h/o sickle cell - prn PRBC transfusions - hematology following (7) CARLYN (acute kidney injury) Current Visit: Yes Status: Acute Plan to address problem: - non oliguric - per nephrology recommendations (8) Discharge planning issues Current Visit: Yes Status: Acute Plan to address problem: - appears may be a prolonged ICU stay .....she remains critically ill on life sustaining interventions including MVS and at risk for further deterioration including 30' CCT Subjective Date of service: 10/06/16 Principal diagnosis: Acute Hypoxemic Respiratory Failure; ARDS Interval history: Seen and examined at bedside; 24 hour events reviewed; nursing and respiratory care staff consulted; no adverse overnight events reported to me; remains on MVS ; tolerating APRV; accepting a certain degree of hypercapnia; no emesis or overt aspiration Objective Vital Signs - 12hr 10/06/16 10/06/16 10/06/16 01:11 01:21 01:30 Temperature Pulse Rate 113 H 114 H 113 H Pulse Rate [ Anterior Bilateral Throughout] Pulse Rate [ From Monitor] Respiratory 14 14 13 Rate Respiratory Rate [Anterior Bilateral Throughout] Blood Pressure 117/57 117/57 108/56 O2 Sat by Pulse 100 100 100 Oximetry 10/06/16 10/06/16 10/06/16 01:41 01:44 01:51 Temperature Pulse Rate 111 H 114 H Pulse Rate [ 111 H Anterior Bilateral Throughout] Pulse Rate [ From Monitor] Respiratory 13 25 H Rate Respiratory 17 Rate [Anterior Bilateral Throughout] Blood Pressure 108/56 108/56 O2 Sat by Pulse 100 98 Oximetry 10/06/16 10/06/16 10/06/16 01:54 02:00 02:11 Temperature Pulse Rate 114 H 117 H Pulse Rate [ 116 H Anterior Bilateral Throughout] Pulse Rate [ From Monitor] Respiratory 15 14 Rate Respiratory 18 Rate [Anterior Bilateral Throughout] Blood Pressure 120/65 120/65 O2 Sat by Pulse 100 98 Oximetry 10/06/16 10/06/16 10/06/16 02:21 02:30 02:41 Temperature Pulse Rate 116 H 117 H 116 H Pulse Rate [ Anterior Bilateral Throughout] Pulse Rate [ From Monitor] Respiratory 13 13 16 Rate Respiratory Rate [Anterior Bilateral Throughout] Blood Pressure 120/65 127/62 127/62 O2 Sat by Pulse 99 97 100 Oximetry 10/06/16 10/06/16 10/06/16 02:51 03:00 03:11 Temperature Pulse Rate 115 H 113 H 113 H Pulse Rate [ Anterior Bilateral Throughout] Pulse Rate [ From Monitor] Respiratory 14 13 14 Rate Respiratory Rate [Anterior Bilateral Throughout] Blood Pressure 127/62 134/58 134/58 O2 Sat by Pulse 100 97 100 Oximetry 10/06/16 10/06/16 10/06/16 03:21 03:26 03:30 Temperature Pulse Rate 114 H 114 H 113 H Pulse Rate [ Anterior Bilateral Throughout] Pulse Rate [ From Monitor] Respiratory 15 14 Rate Respiratory Rate [Anterior Bilateral Throughout] Blood Pressure 134/58 134/58 126/63 O2 Sat by Pulse 100 100 92 Oximetry 10/06/16 10/06/16 10/06/16 03:32 03:41 03:45 Temperature 100.3 F H Pulse Rate 113 H Pulse Rate [ Anterior Bilateral Throughout] Pulse Rate [ 110 H From Monitor] Respiratory 26 H 13 Rate Respiratory Rate [Anterior Bilateral Throughout] Blood Pressure 126/63 O2 Sat by Pulse 98 100 Oximetry 10/06/16 10/06/16 10/06/16 03:51 04:00 04:11 Temperature Pulse Rate 108 H 114 H 114 H Pulse Rate [ Anterior Bilateral Throughout] Pulse Rate [ From Monitor] Respiratory 13 14 13 Rate Respiratory Rate [Anterior Bilateral Throughout] Blood Pressure 126/63 121/65 121/65 O2 Sat by Pulse 100 95 100 Oximetry 10/06/16 10/06/16 10/06/16 04:21 04:30 04:41 Temperature Pulse Rate 110 H 112 H 108 H Pulse Rate [ Anterior Bilateral Throughout] Pulse Rate [ From Monitor] Respiratory 13 14 13 Rate Respiratory Rate [Anterior Bilateral Throughout] Blood Pressure 121/65 129/67 129/67 O2 Sat by Pulse 100 98 100 Oximetry 10/06/16 10/06/16 10/06/16 04:51 05:00 05:10 Temperature Pulse Rate 116 H 115 H 114 H Pulse Rate [ Anterior Bilateral Throughout] Pulse Rate [ From Monitor] Respiratory 16 14 13 Rate Respiratory Rate [Anterior Bilateral Throughout] Blood Pressure 129/67 135/68 135/68 O2 Sat by Pulse 100 92 100 Oximetry 10/06/16 10/06/16 10/06/16 05:20 05:30 05:41 Temperature Pulse Rate 114 H 113 H 117 H Pulse Rate [ Anterior Bilateral Throughout] Pulse Rate [ From Monitor] Respiratory 11 L 16 16 Rate Respiratory Rate [Anterior Bilateral Throughout] Blood Pressure 135/68 118/66 118/66 O2 Sat by Pulse 100 96 100 Oximetry 10/06/16 10/06/16 10/06/16 05:51 06:00 06:11 Temperature Pulse Rate 115 H 115 H 112 H Pulse Rate [ Anterior Bilateral Throughout] Pulse Rate [ From Monitor] Respiratory 13 14 13 Rate Respiratory Rate [Anterior Bilateral Throughout] Blood Pressure 118/66 118/72 118/72 O2 Sat by Pulse 100 96 100 Oximetry 10/06/16 10/06/16 10/06/16 06:21 06:30 06:41 Temperature Pulse Rate 115 H 113 H 117 H Pulse Rate [ Anterior Bilateral Throughout] Pulse Rate [ From Monitor] Respiratory 14 13 13 Rate Respiratory Rate [Anterior Bilateral Throughout] Blood Pressure 118/72 128/62 128/62 O2 Sat by Pulse 100 93 100 Oximetry 10/06/16 10/06/16 10/06/16 06:51 07:00 07:11 Temperature Pulse Rate 114 H 111 H 121 H Pulse Rate [ Anterior Bilateral Throughout] Pulse Rate [ From Monitor] Respiratory 16 17 24 Rate Respiratory Rate [Anterior Bilateral Throughout] Blood Pressure 128/62 122/66 160/77 O2 Sat by Pulse 100 100 100 Oximetry 10/06/16 10/06/16 10/06/16 07:18 07:21 07:30 Temperature 99.0 F Pulse Rate 113 H 115 H Pulse Rate [ Anterior Bilateral Throughout] Pulse Rate [ From Monitor] Respiratory 13 13 Rate Respiratory Rate [Anterior Bilateral Throughout] Blood Pressure 160/77 147/74 O2 Sat by Pulse 94 87 Oximetry 10/06/16 10/06/16 10/06/16 07:41 07:51 08:00 Temperature Pulse Rate 115 H 117 H 114 H Pulse Rate [ Anterior Bilateral Throughout] Pulse Rate [ 112 H From Monitor] Respiratory 13 13 13 Rate Respiratory Rate [Anterior Bilateral Throughout] Blood Pressure 147/74 147/74 127/63 O2 Sat by Pulse 95 97 90 Oximetry 10/06/16 10/06/16 10/06/16 08:05 08:11 08:21 Temperature Pulse Rate 114 H 115 H 115 H Pulse Rate [ 117 H Anterior Bilateral Throughout] Pulse Rate [ From Monitor] Respiratory 13 13 Rate Respiratory 22 Rate [Anterior Bilateral Throughout] Blood Pressure 127/63 127/63 127/63 O2 Sat by Pulse 97 98 99 Oximetry 10/06/16 10/06/16 10/06/16 08:26 08:30 08:40 Temperature Pulse Rate 116 H 117 H Pulse Rate [ 117 H Anterior Bilateral Throughout] Pulse Rate [ From Monitor] Respiratory 13 10 L Rate Respiratory 26 H Rate [Anterior Bilateral Throughout] Blood Pressure 138/76 138/76 O2 Sat by Pulse 89 96 Oximetry 10/06/16 10/06/16 10/06/16 08:51 09:00 09:11 Temperature Pulse Rate 116 H 119 H 115 H Pulse Rate [ Anterior Bilateral Throughout] Pulse Rate [ From Monitor] Respiratory 13 13 13 Rate Respiratory Rate [Anterior Bilateral Throughout] Blood Pressure 138/76 138/73 138/73 O2 Sat by Pulse 96 90 97 Oximetry 10/06/16 10/06/16 10/06/16 09:21 09:30 09:41 Temperature Pulse Rate 113 H 115 H 114 H Pulse Rate [ Anterior Bilateral Throughout] Pulse Rate [ From Monitor] Respiratory 12 13 13 Rate Respiratory Rate [Anterior Bilateral Throughout] Blood Pressure 138/73 130/67 130/67 O2 Sat by Pulse 98 94 98 Oximetry 10/06/16 10/06/16 10/06/16 09:51 10:00 10:11 Temperature Pulse Rate 115 H 115 H 115 H Pulse Rate [ Anterior Bilateral Throughout] Pulse Rate [ From Monitor] Respiratory 13 14 13 Rate Respiratory Rate [Anterior Bilateral Throughout] Blood Pressure 130/67 123/63 123/63 O2 Sat by Pulse 98 94 98 Oximetry 10/06/16 10/06/16 10/06/16 10:21 10:30 10:41 Temperature Pulse Rate 113 H 113 H 113 H Pulse Rate [ Anterior Bilateral Throughout] Pulse Rate [ From Monitor] Respiratory 14 13 14 Rate Respiratory Rate [Anterior Bilateral Throughout] Blood Pressure 123/63 127/64 127/64 O2 Sat by Pulse 98 93 98 Oximetry 10/06/16 10/06/16 10/06/16 10:51 11:00 11:11 Temperature Pulse Rate 109 H 111 H 110 H Pulse Rate [ Anterior Bilateral Throughout] Pulse Rate [ From Monitor] Respiratory 13 13 13 Rate Respiratory Rate [Anterior Bilateral Throughout] Blood Pressure 127/64 112/54 112/54 O2 Sat by Pulse 98 90 98 Oximetry 10/06/16 10/06/16 10/06/16 11:34 11:50 12:00 Temperature 99.5 F 99.5 F Pulse Rate 112 H Pulse Rate [ Anterior Bilateral Throughout] Pulse Rate [ 106 H From Monitor] Respiratory 12 Rate Respiratory Rate [Anterior Bilateral Throughout] Blood Pressure 110/56 O2 Sat by Pulse 98 98 Oximetry Constitutional: appears uncomfortable, other (sedated) Eyes: non-icteric ENT: oropharynx moist Neck: supple, no lymphadenopathy Effort: mildly labored Ascultation: Bilateral: diminished breath sounds, rales Cardiovascular: regular rate and rhythm Gastrointestinal: normoactive bowel sounds, soft, non-tender, non-distended Integumentary: normal Extremities: no cyanosis, no edema, pulses normal, no ischemia or petechiae Neurologic: unable to assess Psychiatric: other (sedated now) CBC and BMP: 10/06/16 03:57 10/06/16 03:57 ABG, PT/INR, D-dimer: ABG POC ABG pH 7.226 (7.35-7.45) L 10/06/16 06:08 POC ABG pCO2 63.3 (35-45) H 10/06/16 06:08 POC ABG pO2 87 (80-105) 10/06/16 06:08 POC ABG HCO3 26.3 10/06/16 06:08 POC ABG Total CO2 28 10/06/16 06:08 POC ABG O2 Sat 94 10/06/16 06:08 PT/INR, D-dimer PT 14.5 Sec. (12.2-14.9) 09/20/16 10:35 INR 1.14 (0.87-1.13) H 09/20/16 10:35 D-Dimer 4758.12 ng/mlDDU (0-234) H 09/27/16 22:47 Abnormal lab findings: Abnormal Labs 09/20/16 09/20/16 09/20/16 10:35 10:35 10:35 WBC 11.7 H RBC Hgb Hct MCV 75 L MCH 24 L RDW 16.6 H Plt Count Seg Neuts % (Manual) Lymphocytes % (Manual) Eosinophils % (Manual) Nucleated RBC % Seg Neutrophils # Man Monocytes # (Manual) Eosinophils # (Manual) Percent Retic INR 1.14 H D-Dimer POC ABG pH POC ABG pCO2 POC ABG pO2 Sodium Potassium Chloride Carbon Dioxide BUN Creatinine 0.5 L Glucose 115 H POC Glucose Lactic Acid Calcium Total Bilirubin 2.0 H Lactate Dehydrogenase Total Creatine Kinase CK-MB (CK-2) C-Reactive Protein NT-Pro-B Natriuret Pep Total Protein Albumin Urine WBC (Auto) Urine Creatinine Urine Total Protein Vancomycin Trough Random Vancomycin Crossmatch 09/26/16 09/26/16 09/27/16 04:26 04:26 10:26 WBC RBC Hgb 8.9 L Hct 28.0 L MCV MCH RDW Plt Count Seg Neuts % (Manual) Lymphocytes % (Manual) Eosinophils % (Manual) Nucleated RBC % Seg Neutrophils # Man Monocytes # (Manual) Eosinophils # (Manual) Percent Retic INR D-Dimer POC ABG pH 7.283 L POC ABG pCO2 45.3 H POC ABG pO2 79 L Sodium Potassium Chloride Carbon Dioxide 20 L BUN Creatinine Glucose 129 H POC Glucose Lactic Acid Calcium 7.6 L Total Bilirubin Lactate Dehydrogenase Total Creatine Kinase CK-MB (CK-2) C-Reactive Protein NT-Pro-B Natriuret Pep Total Protein Albumin Urine WBC (Auto) Urine Creatinine Urine Total Protein Vancomycin Trough Random Vancomycin Crossmatch 09/27/16 09/27/16 09/27/16 14:40 14:40 15:14 WBC 39.3 H RBC Hgb 9.3 L Hct 28.9 L MCV 75 L MCH 24 L RDW 18.7 H Plt Count Seg Neuts % (Manual) 93.5 H Lymphocytes % (Manual) 5.0 L Eosinophils % (Manual) Nucleated RBC % Seg Neutrophils # Man 36.7 H Monocytes # (Manual) Eosinophils # (Manual) Percent Retic INR D-Dimer POC ABG pH POC ABG pCO2 POC ABG pO2 Sodium Potassium Chloride Carbon Dioxide BUN Creatinine Glucose POC Glucose Lactic Acid 2.9 H* Calcium Total Bilirubin Lactate Dehydrogenase Total Creatine Kinase 3575 H CK-MB (CK-2) 11.0 H C-Reactive Protein 16.10 H NT-Pro-B Natriuret Pep Total Protein Albumin Urine WBC (Auto) Urine Creatinine Urine Total Protein Vancomycin Trough Random Vancomycin Crossmatch 09/27/16 09/27/16 09/27/16 18:05 22:47 22:47 WBC RBC Hgb Hct MCV MCH RDW Plt Count Seg Neuts % (Manual) Lymphocytes % (Manual) Eosinophils % (Manual) Nucleated RBC % Seg Neutrophils # Man Monocytes # (Manual) Eosinophils # (Manual) Percent Retic INR D-Dimer 4758.12 H POC ABG pH POC ABG pCO2 POC ABG pO2 70 L Sodium Potassium Chloride Carbon Dioxide BUN Creatinine Glucose POC Glucose Lactic Acid Calcium Total Bilirubin Lactate Dehydrogenase 829 H Total Creatine Kinase CK-MB (CK-2) C-Reactive Protein NT-Pro-B Natriuret Pep Total Protein Albumin Urine WBC (Auto) Urine Creatinine Urine Total Protein Vancomycin Trough Random Vancomycin Crossmatch 09/27/16 09/28/16 09/28/16 22:47 09:20 10:47 WBC RBC Hgb Hct MCV MCH RDW Plt Count Seg Neuts % (Manual) Lymphocytes % (Manual) Eosinophils % (Manual) Nucleated RBC % Seg Neutrophils # Man Monocytes # (Manual) Eosinophils # (Manual) Percent Retic 8.11 H INR D-Dimer POC ABG pH POC ABG pCO2 47.2 H POC ABG pO2 70 L Sodium Potassium Chloride Carbon Dioxide BUN Creatinine 0.6 L Glucose 137 H POC Glucose Lactic Acid Calcium Total Bilirubin Lactate Dehydrogenase Total Creatine Kinase CK-MB (CK-2) C-Reactive Protein NT-Pro-B Natriuret Pep Total Protein Albumin Urine WBC (Auto) Urine Creatinine Urine Total Protein Vancomycin Trough Random Vancomycin Crossmatch 09/28/16 09/30/16 09/30/16 10:47 11:01 14:05 WBC 30.3 H RBC 3.27 L Hgb 8.1 L Hct 24.4 L MCV 75 L MCH 25 L RDW 18.9 H Plt Count Seg Neuts % (Manual) Lymphocytes % (Manual) 12.0 L Eosinophils % (Manual) Nucleated RBC % 5.0 H Seg Neutrophils # Man 21.2 H Monocytes # (Manual) 1.8 H Eosinophils # (Manual) Percent Retic INR D-Dimer POC ABG pH POC ABG pCO2 48.8 H POC ABG pO2 52 L Sodium Potassium Chloride Carbon Dioxide BUN Creatinine Glucose POC Glucose Lactic Acid Calcium Total Bilirubin Lactate Dehydrogenase Total Creatine Kinase CK-MB (CK-2) C-Reactive Protein NT-Pro-B Natriuret Pep 2018 H Total Protein Albumin Urine WBC (Auto) Urine Creatinine Urine Total Protein Vancomycin Trough Random Vancomycin Crossmatch 09/30/16 09/30/16 09/30/16 14:05 14:05 14:05 WBC 22.1 H RBC 2.76 L Hgb 6.9 L Hct 20.6 L MCV 75 L MCH 25 L RDW 18.7 H Plt Count Seg Neuts % (Manual) 74.0 H Lymphocytes % (Manual) 7.0 L Eosinophils % (Manual) Nucleated RBC % 52.0 H Seg Neutrophils # Man 16.4 H Monocytes # (Manual) Eosinophils # (Manual) Percent Retic INR D-Dimer POC ABG pH POC ABG pCO2 POC ABG pO2 Sodium Potassium 3.1 L Chloride Carbon Dioxide BUN Creatinine 0.5 L Glucose 116 H POC Glucose Lactic Acid Calcium 8.2 L Total Bilirubin Lactate Dehydrogenase Total Creatine Kinase CK-MB (CK-2) C-Reactive Protein 30.80 H NT-Pro-B Natriuret Pep Total Protein Albumin Urine WBC (Auto) Urine Creatinine Urine Total Protein Vancomycin Trough Random Vancomycin Crossmatch 09/30/16 10/01/16 10/01/16 14:33 00:55 00:55 WBC 26.1 H RBC 2.80 L Hgb 6.8 L Hct 20.8 L MCV 74 L MCH 24 L RDW 18.6 H Plt Count Seg Neuts % (Manual) 85.0 H Lymphocytes % (Manual) 11.0 L Eosinophils % (Manual) Nucleated RBC % 21.0 H Seg Neutrophils # Man 22.2 H Monocytes # (Manual) 1.0 H Eosinophils # (Manual) Percent Retic INR D-Dimer POC ABG pH POC ABG pCO2 47.8 H POC ABG pO2 201 H Sodium Potassium Chloride Carbon Dioxide BUN Creatinine Glucose POC Glucose Lactic Acid Calcium Total Bilirubin Lactate Dehydrogenase Total Creatine Kinase CK-MB (CK-2) C-Reactive Protein NT-Pro-B Natriuret Pep Total Protein Albumin Urine WBC (Auto) Urine Creatinine Urine Total Protein Vancomycin Trough Random Vancomycin Crossmatch See Detail 10/01/16 10/01/16 10/01/16 04:57 05:00 13:01 WBC RBC Hgb Hct MCV MCH RDW Plt Count Seg Neuts % (Manual) Lymphocytes % (Manual) Eosinophils % (Manual) Nucleated RBC % Seg Neutrophils # Man Monocytes # (Manual) Eosinophils # (Manual) Percent Retic INR D-Dimer POC ABG pH POC ABG pCO2 58.5 H POC ABG pO2 149 H Sodium 149 H Potassium 3.0 L Chloride Carbon Dioxide BUN Creatinine Glucose POC Glucose 120 H Lactic Acid Calcium 8.3 L Total Bilirubin Lactate Dehydrogenase Total Creatine Kinase CK-MB (CK-2) C-Reactive Protein NT-Pro-B Natriuret Pep Total Protein Albumin Urine WBC (Auto) Urine Creatinine Urine Total Protein Vancomycin Trough Random Vancomycin Crossmatch 10/01/16 10/01/16 10/01/16 15:43 17:44 23:37 WBC 27.6 H RBC 3.55 L Hgb 8.9 L Hct 27.6 L D MCV 78 L D MCH 25 L RDW 18.1 H Plt Count Seg Neuts % (Manual) 79.5 H Lymphocytes % (Manual) 8.0 L Eosinophils % (Manual) Nucleated RBC % 65.0 H Seg Neutrophils # Man 21.9 H Monocytes # (Manual) 1.0 H Eosinophils # (Manual) Percent Retic INR D-Dimer POC ABG pH POC ABG pCO2 POC ABG pO2 Sodium Potassium Chloride Carbon Dioxide BUN Creatinine Glucose POC Glucose 121 H 129 H Lactic Acid Calcium Total Bilirubin Lactate Dehydrogenase Total Creatine Kinase CK-MB (CK-2) C-Reactive Protein NT-Pro-B Natriuret Pep Total Protein Albumin Urine WBC (Auto) Urine Creatinine Urine Total Protein Vancomycin Trough Random Vancomycin Crossmatch 10/02/16 10/02/16 10/02/16 05:05 05:40 06:00 WBC 23.0 H RBC 3.30 L Hgb 8.3 L Hct 25.8 L MCV 78 L MCH 25 L RDW 18.2 H Plt Count Seg Neuts % (Manual) 83.5 H Lymphocytes % (Manual) 4.0 L Eosinophils % (Manual) Nucleated RBC % 14.5 H Seg Neutrophils # Man 25.1 H Monocytes # (Manual) 1.7 H Eosinophils # (Manual) Percent Retic INR D-Dimer POC ABG pH POC ABG pCO2 50.5 H POC ABG pO2 Sodium Potassium Chloride Carbon Dioxide BUN Creatinine Glucose POC Glucose 123 H Lactic Acid Calcium Total Bilirubin Lactate Dehydrogenase Total Creatine Kinase CK-MB (CK-2) C-Reactive Protein NT-Pro-B Natriuret Pep Total Protein Albumin Urine WBC (Auto) Urine Creatinine Urine Total Protein Vancomycin Trough Random Vancomycin Crossmatch 10/02/16 10/02/16 10/02/16 06:00 11:42 21:52 WBC RBC Hgb Hct MCV MCH RDW Plt Count Seg Neuts % (Manual) Lymphocytes % (Manual) Eosinophils % (Manual) Nucleated RBC % Seg Neutrophils # Man Monocytes # (Manual) Eosinophils # (Manual) Percent Retic INR D-Dimer POC ABG pH 7.324 L POC ABG pCO2 60.5 H POC ABG pO2 74 L Sodium 150 H Potassium Chloride 108.3 H Carbon Dioxide BUN 20 H Creatinine 1.4 H D Glucose 117 H POC Glucose 135 H Lactic Acid Calcium Total Bilirubin Lactate Dehydrogenase Total Creatine Kinase CK-MB (CK-2) C-Reactive Protein NT-Pro-B Natriuret Pep Total Protein Albumin Urine WBC (Auto) Urine Creatinine Urine Total Protein Vancomycin Trough Random Vancomycin Crossmatch 10/02/16 10/03/16 10/03/16 23:26 05:55 08:17 WBC 32.0 H RBC 3.13 L Hgb 7.9 L Hct 24.6 L MCV MCH 25 L RDW 18.9 H Plt Count 132 L Seg Neuts % (Manual) 75.0 H Lymphocytes % (Manual) 5.0 L Eosinophils % (Manual) Nucleated RBC % 26.0 H Seg Neutrophils # Man 24.0 H Monocytes # (Manual) 1.0 H Eosinophils # (Manual) 1.0 H Percent Retic INR D-Dimer POC ABG pH POC ABG pCO2 POC ABG pO2 Sodium Potassium Chloride Carbon Dioxide BUN Creatinine Glucose POC Glucose 121 H 145 H Lactic Acid Calcium Total Bilirubin Lactate Dehydrogenase Total Creatine Kinase CK-MB (CK-2) C-Reactive Protein NT-Pro-B Natriuret Pep Total Protein Albumin Urine WBC (Auto) Urine Creatinine Urine Total Protein Vancomycin Trough Random Vancomycin Crossmatch 10/03/16 10/03/16 10/03/16 08:17 09:26 11:34 WBC RBC Hgb Hct MCV MCH RDW Plt Count Seg Neuts % (Manual) Lymphocytes % (Manual) Eosinophils % (Manual) Nucleated RBC % Seg Neutrophils # Man Monocytes # (Manual) Eosinophils # (Manual) Percent Retic INR D-Dimer POC ABG pH 7.274 L POC ABG pCO2 59.7 H POC ABG pO2 58 L Sodium 147 H Potassium Chloride 107.6 H Carbon Dioxide BUN 31 H Creatinine 1.7 H Glucose 118 H POC Glucose 142 H Lactic Acid Calcium Total Bilirubin Lactate Dehydrogenase Total Creatine Kinase CK-MB (CK-2) C-Reactive Protein NT-Pro-B Natriuret Pep Total Protein Albumin Urine WBC (Auto) Urine Creatinine Urine Total Protein Vancomycin Trough Random Vancomycin Crossmatch 10/03/16 10/03/16 10/03/16 15:54 15:54 16:58 WBC RBC Hgb Hct MCV MCH RDW Plt Count Seg Neuts % (Manual) Lymphocytes % (Manual) Eosinophils % (Manual) Nucleated RBC % Seg Neutrophils # Man Monocytes # (Manual) Eosinophils # (Manual) Percent Retic INR D-Dimer POC ABG pH POC ABG pCO2 POC ABG pO2 Sodium Potassium Chloride Carbon Dioxide BUN Creatinine Glucose POC Glucose 138 H Lactic Acid Calcium Total Bilirubin Lactate Dehydrogenase Total Creatine Kinase CK-MB (CK-2) C-Reactive Protein NT-Pro-B Natriuret Pep Total Protein Albumin Urine WBC (Auto) 21.0 H Urine Creatinine 63.2 H Urine Total Protein 67 H Vancomycin Trough Random Vancomycin Crossmatch 10/03/16 10/03/16 10/04/16 21:37 23:44 04:00 WBC 30.3 H RBC 2.86 L Hgb 7.3 L Hct 22.6 L MCV MCH 25 L RDW 19.6 H Plt Count 125 L Seg Neuts % (Manual) Lymphocytes % (Manual) 12.0 L Eosinophils % (Manual) 5.0 H Nucleated RBC % 30.0 H Seg Neutrophils # Man 12.7 H Monocytes # (Manual) 1.2 H Eosinophils # (Manual) 1.5 H Percent Retic INR D-Dimer POC ABG pH 7.271 L POC ABG pCO2 61.7 H POC ABG pO2 77 L Sodium Potassium Chloride Carbon Dioxide BUN Creatinine Glucose POC Glucose 130 H Lactic Acid Calcium Total Bilirubin Lactate Dehydrogenase Total Creatine Kinase CK-MB (CK-2) C-Reactive Protein NT-Pro-B Natriuret Pep Total Protein Albumin Urine WBC (Auto) Urine Creatinine Urine Total Protein Vancomycin Trough Random Vancomycin Crossmatch 10/04/16 10/04/16 10/04/16 04:03 06:02 12:29 WBC RBC Hgb Hct MCV MCH RDW Plt Count Seg Neuts % (Manual) Lymphocytes % (Manual) Eosinophils % (Manual) Nucleated RBC % Seg Neutrophils # Man Monocytes # (Manual) Eosinophils # (Manual) Percent Retic INR D-Dimer POC ABG pH 7.248 L POC ABG pCO2 62.3 H POC ABG pO2 59 L Sodium Potassium Chloride Carbon Dioxide BUN 40 H Creatinine 1.7 H Glucose 110 H POC Glucose 123 H Lactic Acid Calcium Total Bilirubin Lactate Dehydrogenase Total Creatine Kinase CK-MB (CK-2) C-Reactive Protein NT-Pro-B Natriuret Pep Total Protein 5.6 L Albumin 2.1 L Urine WBC (Auto) Urine Creatinine Urine Total Protein Vancomycin Trough Random Vancomycin Crossmatch 10/04/16 10/04/16 10/04/16 12:39 15:14 17:45 WBC RBC Hgb Hct MCV MCH RDW Plt Count Seg Neuts % (Manual) Lymphocytes % (Manual) Eosinophils % (Manual) Nucleated RBC % Seg Neutrophils # Man Monocytes # (Manual) Eosinophils # (Manual) Percent Retic INR D-Dimer POC ABG pH POC ABG pCO2 POC ABG pO2 109 H Sodium Potassium Chloride Carbon Dioxide BUN Creatinine Glucose POC Glucose 124 H Lactic Acid Calcium Total Bilirubin Lactate Dehydrogenase Total Creatine Kinase CK-MB (CK-2) C-Reactive Protein NT-Pro-B Natriuret Pep Total Protein Albumin Urine WBC (Auto) Urine Creatinine Urine Total Protein Vancomycin Trough 45.5 H Random Vancomycin Crossmatch 10/04/16 10/04/16 10/05/16 20:13 23:05 01:27 WBC 36.1 H RBC 2.99 L Hgb 7.3 L Hct 23.5 L MCV MCH 25 L RDW 19.6 H Plt Count Seg Neuts % (Manual) Lymphocytes % (Manual) Eosinophils % (Manual) Nucleated RBC % Seg Neutrophils # Man Monocytes # (Manual) Eosinophils # (Manual) Percent Retic INR D-Dimer POC ABG pH 7.341 L POC ABG pCO2 POC ABG pO2 47 L Sodium Potassium Chloride Carbon Dioxide BUN Creatinine Glucose POC Glucose 127 H Lactic Acid Calcium Total Bilirubin Lactate Dehydrogenase Total Creatine Kinase CK-MB (CK-2) C-Reactive Protein NT-Pro-B Natriuret Pep Total Protein Albumin Urine WBC (Auto) Urine Creatinine Urine Total Protein Vancomycin Trough Random Vancomycin Crossmatch 10/05/16 10/05/16 10/05/16 01:27 03:50 05:00 WBC RBC Hgb Hct MCV MCH RDW Plt Count Seg Neuts % (Manual) Lymphocytes % (Manual) Eosinophils % (Manual) Nucleated RBC % Seg Neutrophils # Man Monocytes # (Manual) Eosinophils # (Manual) Percent Retic INR D-Dimer POC ABG pH 7.330 L POC ABG pCO2 45.3 H POC ABG pO2 53 L Sodium Potassium Chloride Carbon Dioxide BUN 49 H Creatinine 1.6 H Glucose 112 H POC Glucose Lactic Acid Calcium Total Bilirubin Lactate Dehydrogenase Total Creatine Kinase CK-MB (CK-2) C-Reactive Protein NT-Pro-B Natriuret Pep Total Protein Albumin Urine WBC (Auto) Urine Creatinine Urine Total Protein Vancomycin Trough Random Vancomycin 43.6 H Crossmatch 10/05/16 10/05/16 10/05/16 05:30 12:08 14:00 WBC RBC Hgb Hct MCV MCH RDW Plt Count Seg Neuts % (Manual) Lymphocytes % (Manual) Eosinophils % (Manual) Nucleated RBC % Seg Neutrophils # Man Monocytes # (Manual) Eosinophils # (Manual) Percent Retic INR D-Dimer POC ABG pH POC ABG pCO2 POC ABG pO2 Sodium Potassium Chloride Carbon Dioxide BUN Creatinine Glucose POC Glucose 141 H 149 H Lactic Acid Calcium Total Bilirubin Lactate Dehydrogenase Total Creatine Kinase CK-MB (CK-2) C-Reactive Protein 28.40 H NT-Pro-B Natriuret Pep Total Protein Albumin Urine WBC (Auto) Urine Creatinine Urine Total Protein Vancomycin Trough Random Vancomycin Crossmatch 10/05/16 10/05/16 10/05/16 15:37 16:41 17:15 WBC RBC Hgb Hct MCV MCH RDW Plt Count Seg Neuts % (Manual) Lymphocytes % (Manual) Eosinophils % (Manual) Nucleated RBC % Seg Neutrophils # Man Monocytes # (Manual) Eosinophils # (Manual) Percent Retic INR D-Dimer POC ABG pH 7.157 L 7.133 L POC ABG pCO2 75.0 H 80.5 H POC ABG pO2 76 L Sodium Potassium Chloride Carbon Dioxide BUN Creatinine Glucose POC Glucose 151 H Lactic Acid Calcium Total Bilirubin Lactate Dehydrogenase Total Creatine Kinase CK-MB (CK-2) C-Reactive Protein NT-Pro-B Natriuret Pep Total Protein Albumin Urine WBC (Auto) Urine Creatinine Urine Total Protein Vancomycin Trough Random Vancomycin Crossmatch 10/05/16 10/05/16 10/06/16 19:58 23:50 03:57 WBC 45.3 H* RBC 3.08 L Hgb 7.5 L Hct 24.5 L MCV MCH 25 L RDW 20.1 H Plt Count Seg Neuts % (Manual) 24.0 L Lymphocytes % (Manual) 10.0 L Eosinophils % (Manual) Nucleated RBC % 36.0 H Seg Neutrophils # Man 10.9 H Monocytes # (Manual) 3.2 H Eosinophils # (Manual) 0.5 H Percent Retic INR D-Dimer POC ABG pH 7.198 L POC ABG pCO2 69.5 H POC ABG pO2 Sodium Potassium Chloride Carbon Dioxide BUN Creatinine Glucose POC Glucose 160 H Lactic Acid Calcium Total Bilirubin Lactate Dehydrogenase Total Creatine Kinase CK-MB (CK-2) C-Reactive Protein NT-Pro-B Natriuret Pep Total Protein Albumin Urine WBC (Auto) Urine Creatinine Urine Total Protein Vancomycin Trough Random Vancomycin Crossmatch 10/06/16 10/06/16 10/06/16 03:57 05:38 06:08 WBC RBC Hgb Hct MCV MCH RDW Plt Count Seg Neuts % (Manual) Lymphocytes % (Manual) Eosinophils % (Manual) Nucleated RBC % Seg Neutrophils # Man Monocytes # (Manual) Eosinophils # (Manual) Percent Retic INR D-Dimer POC ABG pH 7.226 L POC ABG pCO2 63.3 H POC ABG pO2 Sodium 152 H D Potassium Chloride 114.1 H Carbon Dioxide BUN 58 H Creatinine 1.6 H Glucose 123 H POC Glucose 129 H Lactic Acid Calcium Total Bilirubin Lactate Dehydrogenase Total Creatine Kinase CK-MB (CK-2) C-Reactive Protein NT-Pro-B Natriuret Pep Total Protein Albumin Urine WBC (Auto) Urine Creatinine Urine Total Protein Vancomycin Trough Random Vancomycin Crossmatch 10/06/16 11:38 WBC RBC Hgb Hct MCV MCH RDW Plt Count Seg Neuts % (Manual) Lymphocytes % (Manual) Eosinophils % (Manual) Nucleated RBC % Seg Neutrophils # Man Monocytes # (Manual) Eosinophils # (Manual) Percent Retic INR D-Dimer POC ABG pH POC ABG pCO2 POC ABG pO2 Sodium Potassium Chloride Carbon Dioxide BUN Creatinine Glucose POC Glucose 126 H Lactic Acid Calcium Total Bilirubin Lactate Dehydrogenase Total Creatine Kinase CK-MB (CK-2) C-Reactive Protein NT-Pro-B Natriuret Pep Total Protein Albumin Urine WBC (Auto) Urine Creatinine Urine Total Protein Vancomycin Trough Random Vancomycin Crossmatch Chest x-ray: image reviewed (no pneumothorax or obvious barotrauma)
[2016-10-06 15:02] LABS: ISTAT Base Excess 1; ISTAT PCO2 49.5 (35-45); ISTAT PH 7.345 (7.35-7.45); ISTAT PO2 60 (80-105); ISTAT SO2 89; ISTAT TCO2 29
--- NOTE | 2016-10-06 15:52 | Consultation ---
History of Present Illness - Reason for Consult Consult date: 10/06/16 - History of Present Illness Patient seen/examined resting in bed in the ICU. out look slightly better with some adjustment in fluids, sodium, diuretics, and vent changes as well as more sedation. Past History Past Medical History: anemia (sickle cell anemia) Social history: no significant social history Family history: no significant family history Medications and Allergies Allergies Allergy/AdvReac Type Severity Reaction Status Date / Time No Known Allergies Allergy Unverified 10/13/13 13:21 Home Medications Medication Instructions Recorded Confirmed Last Taken Type Folic Acid [Folvite] 1 mg PO QDAY 10/13/13 09/18/16 09/18/16 History oxyCODONE /ACETAMINOPHEN [Percocet 1 tab PO Q6HR PRN #10 tablet 10/13/1309/18/16 Rx 5/325 mg] Promethazine [Phenergan] 25 mg PO Q6H PRN 08/16/14 09/18/16 09/18/16 History valACYclovir [Valtrex] 500 mg PO DAILY 08/16/14 09/18/16 09/18/16 History Active Meds: Active Medications Acetaminophen (Tylenol) 650 mg PO Q4H PRN PRN Reason: Pain MILD(1-3)/Fever >100.5/PALACIOS Last Admin: 10/06/16 08:59 Dose: 650 mg Albuterol/Ipratropium (Duoneb 0.5 Mg-3 Mg/3 Ml Soln) 1 ampul IH Q6HRT [facility] Last Admin: 10/06/16 15:17 Dose: Not Given Lipase/Protease/Amylase (Fritz Mayers 10,500 Unit) 1 each FEEDTUBE PRN PRN PRN Reason: For Clogged Feeding Tube Arformoterol Tartrate (Brovana Nebu) 15 mcg IH Q12HRT [facility] Last Admin: 10/06/16 08:15 Dose: 15 mcg Aspirin (Aspirin) 325 mg PO QDAY [facility] Last Admin: 10/06/16 09:17 Dose: 325 mg Budesonide (Pulmicort) 0.5 mg IH Q12HRT [facility] Last Admin: 10/06/16 08:15 Dose: 0.5 mg Diphenhydramine HCl (Benadryl) 12.5 mg IV Q4H PRN PRN Reason: Itching Last Admin: 09/30/16 07:02 Dose: 12.5 mg Enoxaparin Sodium (Lovenox) 40 mg SUB-Q QDAY [facility] Last Admin: 10/06/16 09:18 Dose: 40 mg Famotidine (Pepcid) 20 mg PO BID [facility] Last Admin: 10/06/16 09:18 Dose: 20 mg Folic Acid (Folvite) 1 mg PO QDAY [facility] Last Admin: 10/06/16 09:17 Dose: 1 mg Furosemide (Lasix) 40 mg IV QDAY [facility] Last Admin: 10/06/16 09:17 Dose: 40 mg Hydrophilic Ointment (Vaseline Lip Therapy) 1 applic TP Q2HR PRN PRN Reason: Dry Lips Fentanyl Citrate (Fentanyl Drip Premix) 2,000 mcg in 100 mls @ 4.649 mls/hr IV TITR [facility]; 1 MCG/KG/HR PRN Reason: Protocol Last Admin: 10/06/16 15:01 Dose: 3 mcg/kg/hr, 13.948 mls/hr Propofol (Diprivan 10 Mg/Ml) 1,000 mg in 100 mls @ 2.79 mls/hr IV TITR [facility]; 5 MCG/KG/MIN PRN Reason: Protocol Midazolam HCl 100 mg/ Sodium (Chloride) 100 mls @ 2 mls/hr IV TITR [facility]; 2 MG/HR PRN Reason: Protocol Last Admin: 10/04/16 12:54 Dose: 2 mg/hr, 2 mls/hr Cefepime HCl (Maxipime/Ns 2 Gm/100 Ml) 2 gm in 100 mls @ 200 mls/hr IV Q12HR [facility] PRN Reason: Protocol Last Admin: 10/06/16 09:29 Dose: 200 mls/hr Sodium Chloride (Nacl 0.45% 1000 Ml) 1,000 mls @ 125 mls/hr IV DIRECT [facility] Dextrose/Sodium Chloride (D5ns 0.2%) 1,000 mls @ 75 mls/hr IV DIRECT [facility] Last Admin: 10/06/16 11:14 Dose: 75 mls/hr Insulin Human Regular (Novolin R) 0 units SUB-Q Q6HR [facility] PRN Reason: Protocol Last Admin: 10/06/16 12:03 Dose: Not Given Metronidazole (Flagyl) 500 mg FEEDTUBE Q8HR [facility] Last Admin: 10/06/16 15:00 Dose: 500 mg Multi-Ingred Cream/Lotion/Oil/Oint (Artificial Tears Ophth Oint) 1 applic OU Q4HR PRN PRN Reason: Dry Eye(s) Multivitamins (Theragran Tab) 1 each PO QDAY [facility] Last Admin: 10/06/16 09:19 Dose: 1 each Ondansetron HCl (Zofran) 4 mg IV Q8H PRN PRN Reason: Nausea And Vomiting Last Admin: 09/29/16 23:07 Dose: 4 mg Promethazine HCl (Phenergan) 25 mg [place] Q6H PRN PRN Reason: Nausea And Vomiting Last Admin: 09/25/16 22:05 Dose: 25 mg Senna (Senokot) 17.2 mg PO DAILY [facility] Last Admin: 10/06/16 09:18 Dose: 17.2 mg Simple Syrup (Simple Syrup) 15 ml FEEDTUBE PRN PRN PRN Reason: Hypoglycemia Simple Syrup (Simple Syrup) 30 ml FEEDTUBE PRN PRN PRN Reason: Hypoglycemia Sodium Bicarbonate (Sodium Bicarbonate) 325 mg FEEDTUBE PRN PRN PRN Reason: For Clogged Feeding Tube Sodium Chloride (Sodium Chloride Flush Syringe 10 Ml) 10 ml IV PRN PRN PRN Reason: LINE FLUSH Tramadol HCl (Ultram) 50 mg PO Q4H PRN PRN Reason: Pain, Moderate (4-6) Last Admin: 09/26/16 20:45 Dose: 50 mg Valacyclovir HCl (Valtrex) 500 mg PO DAILY [facility] Last Admin: 10/06/16 09:18 Dose: 500 mg Vancomycin HCl (Vancomycin Pharmacy To Dose) 1 each IV PKCONSULT [facility] PRN Reason: Protocol Zolpidem Tartrate (Ambien) 5 mg PO QHS PRN PRN Reason: Sleep Review of Systems Breasts: deferred Exam - Constitutional Vitals: Temp Pulse Resp BP Pulse Ox 99.5 F 114 H 18 103/46 97 10/06/16 12:00 10/06/16 15:16 10/06/16 15:16 10/06/16 15:00 10/06/16 15:16 General appearance: Present: severe distress, well-nourished - EENT Eyes: Present: PERRL - Neck Neck: Present: supple - Respiratory Respiratory: bilateral: other (still on vent.) - Cardiovascular Heart Sounds: Present: S1 & S2. Absent: rub, click - Extremities Extremities: pulses symmetrical, No edema Peripheral Pulses: within normal limits - Abdominal General gastrointestinal: Present: soft, normal bowel sounds Female genitourinary: Present: deferred - Rectal Rectal Exam: deferred - Integumentary Integumentary: Present: clear, warm, dry Results - Labs CBC & Chem 7: 10/06/16 03:57 10/06/16 03:57 Labs: Abnormal lab results 10/05/16 10/05/16 10/05/16 Range/Units 16:41 17:15 19:58 WBC (4.5-11.0) K/mm3 RBC (3.65-5.03) M/mm3 Hgb (10.1-14.3) gm/dl Hct (30.3-42.9) % MCH (28-32) pg RDW (13.2-15.2) % Seg Neuts % (Manual) (40.0-70.0) % Lymphocytes % (Manual) (13.4-35.0) % Nucleated RBC % (0.0-0.9) % Seg Neutrophils # Man (1.8-7.7) K/mm3 Monocytes # (Manual) (0.0-0.8) K/mm3 Eosinophils # (Manual) (0.0-0.4) K/mm3 POC ABG pH 7.133 L 7.198 L (7.35-7.45) POC ABG pCO2 80.5 H 69.5 H (35-45) POC ABG pO2 (80-105) Sodium (137-145) mmol/L Chloride (98-107) mmol/L BUN (7-17) mg/dL Creatinine (0.7-1.2) mg/dL Glucose (65-100) mg/dL POC Glucose 151 H (70-105) 10/05/16 10/06/16 10/06/16 Range/Units 23:50 03:57 03:57 WBC 45.3 H* (4.5-11.0) K/mm3 RBC 3.08 L (3.65-5.03) M/mm3 Hgb 7.5 L (10.1-14.3) gm/dl Hct 24.5 L (30.3-42.9) % MCH 25 L (28-32) pg RDW 20.1 H (13.2-15.2) % Seg Neuts % (Manual) 24.0 L (40.0-70.0) % Lymphocytes % (Manual) 10.0 L (13.4-35.0) % Nucleated RBC % 36.0 H (0.0-0.9) % Seg Neutrophils # Man 10.9 H (1.8-7.7) K/mm3 Monocytes # (Manual) 3.2 H (0.0-0.8) K/mm3 Eosinophils # (Manual) 0.5 H (0.0-0.4) K/mm3 POC ABG pH (7.35-7.45) POC ABG pCO2 (35-45) POC ABG pO2 (80-105) Sodium 152 H D (137-145) mmol/L Chloride 114.1 H (98-107) mmol/L BUN 58 H (7-17) mg/dL Creatinine 1.6 H (0.7-1.2) mg/dL Glucose 123 H (65-100) mg/dL POC Glucose 160 H (70-105) 10/06/16 10/06/16 10/06/16 Range/Units 05:38 06:08 11:38 WBC (4.5-11.0) K/mm3 RBC (3.65-5.03) M/mm3 Hgb (10.1-14.3) gm/dl Hct (30.3-42.9) % MCH (28-32) pg RDW (13.2-15.2) % Seg Neuts % (Manual) (40.0-70.0) % Lymphocytes % (Manual) (13.4-35.0) % Nucleated RBC % (0.0-0.9) % Seg Neutrophils # Man (1.8-7.7) K/mm3 Monocytes # (Manual) (0.0-0.8) K/mm3 Eosinophils # (Manual) (0.0-0.4) K/mm3 POC ABG pH 7.226 L (7.35-7.45) POC ABG pCO2 63.3 H (35-45) POC ABG pO2 (80-105) Sodium (137-145) mmol/L Chloride (98-107) mmol/L BUN (7-17) mg/dL Creatinine (0.7-1.2) mg/dL Glucose (65-100) mg/dL POC Glucose 129 H 126 H (70-105) 05// Range/Units 14:31 WBC (4.5-11.0) K/mm3 RBC (3.65-5.03) M/mm3 Hgb (10.1-14.3) gm/dl Hct (30.3-42.9) % MCH (28-32) pg RDW (13.2-15.2) % Seg Neuts % (Manual) (40.0-70.0) % Lymphocytes % (Manual) (13.4-35.0) % Nucleated RBC % (0.0-0.9) % Seg Neutrophils # Man (1.8-7.7) K/mm3 Monocytes # (Manual) (0.0-0.8) K/mm3 Eosinophils # (Manual) (0.0-0.4) K/mm3 POC ABG pH 7.345 L (7.35-7.45) POC ABG pCO2 49.5 H (35-45) POC ABG pO2 60 L (80-105) Sodium (137-145) mmol/L Chloride (98-107) mmol/L BUN (7-17) mg/dL Creatinine (0.7-1.2) mg/dL Glucose (65-100) mg/dL POC Glucose (70-105) Assessment and Plan - Patient Problems (1) Arthritis of left hip Current Visit: Yes Status: Deleted Plan to address problem: Follow post surgical management. (2) Avascular necrosis of bone of left hip Current Visit: Yes Status: Deleted Plan to address problem: Post surgical pain management., post surgical anticoagulation. continue same. (3) Sepsis Current Visit: Yes Status: Acute Qualifiers: Sepsis type: sepsis due to unspecified organism Qualified Code(s): A41.9 - Sepsis, unspecified organism Plan to address problem: SEE w/up in the notes. No improvement so far. worsening sepsis. (4) Sleep apnea syndrome Current Visit: Yes Status: Acute Qualifiers: Sleep apnea type: S Plan to address problem: oxygen/BIPAP management. Patient now in full resp failure, and on the vent. (5) UTI (urinary tract infection) Current Visit: Yes Status: Acute Qualifiers: Urinary tract infection type: U Hematuria presence: H Indwelling urinary catheter type: I Encounter type: E Plan to address problem: patient already on abx iv. may need culture sent. culture no growth. (6) Anemia Current Visit: Yes Status: Acute Qualifiers: Anemia type: A Iron deficiency anemia type: I Vitamin B12 deficiency anemia type: V Folate deficiency anemia type: F Bone marrow failure anemia type: B Hemolytic anemia type: H Other causes of anemia: O Plan to address problem: will transfuse if hgb 7.5 or less. no new issues at this time. May transfuse if further drop.
--- NOTE | 2016-10-06 19:32 | Progress Note ---
Assessment and Plan - Patient Problems (1) Sepsis Current Visit: Yes Status: Acute Qualifiers: Sepsis type: sepsis due to unspecified organism Qualified Code(s): A41.9 - Sepsis, unspecified organism Plan to address problem: Negative cultures to date. No evidence of colitis or other intra-abdominal process. Plan to narrow or discontinue antibiotics soon if nothing significant on cultures. (2) Acute respiratory failure with hypoxia Current Visit: Yes Status: Acute Plan to address problem: Decreased FiO2 requirement today. Plan per entry level receptionist and primary. (3) Acute renal failure due to tubular necrosis Current Visit: Yes Status: Acute Plan to address problem: Continue renally adjusted antimicrobials. Subjective Date of service: 10/06/16 Principal diagnosis: Acute Hypoxemic Respiratory Failure; ARDS Interval history: Patient remains critically ill in ICU with an increasing WBC count. There are no new localizing issues. Objective - Exam Narrative Exam: intubated, presently off sedation - Constitutional Vitals: Vital Signs Temp Pulse Resp BP Pulse Ox 99.9 F H 101 H 13 148/77 87 10/06/16 16:00 10/06/16 19:00 10/06/16 19:00 10/06/16 19:00 10/06/16 19:00 Temperature -Last 24 Hours Temperature 99.9 F Temperature 99.9 F Temperature 99.5 F Temperature 99.5 F Temperature 99.0 F Temperature 100.3 F Temperature 100.2 F Temperature 100.0 F General appearance: Present: mild distress - EENT Eyes: exopthalmos ENT: other (ET tube in place) - Neck Neck: supple - Respiratory Respiratory effort: accessory muscle use Respiratory: bilateral: CTA, negative: rales, rhonchi - Cardiovascular Rhythm: regular (tachycardic to 120-130s) Heart Sounds: Present: S1 & S2 Extremities: No edema Extremity abnormal: other (left hip without edema or signs of infection) - Gastrointestinal General gastrointestinal: Present: soft, non-distended, other (decreased bowel sounds) - Integumentary Integumentary: no jaundice, no rash - Labs CBC & Chem 7: 10/06/16 03:57 10/06/16 03:57 Labs: Abnormal lab results 10/05/16 10/05/16 10/05/16 Range/Units 17:15 19:58 23:50 WBC (4.5-11.0) K/mm3 RBC (3.65-5.03) M/mm3 Hgb (10.1-14.3) gm/dl Hct (30.3-42.9) % MCH (28-32) pg RDW (13.2-15.2) % Seg Neuts % (Manual) (40.0-70.0) % Lymphocytes % (Manual) (13.4-35.0) % Nucleated RBC % (0.0-0.9) % Seg Neutrophils # Man (1.8-7.7) K/mm3 Monocytes # (Manual) (0.0-0.8) K/mm3 Eosinophils # (Manual) (0.0-0.4) K/mm3 POC ABG pH 7.198 L (7.35-7.45) POC ABG pCO2 69.5 H (35-45) POC ABG pO2 (80-105) Sodium (137-145) mmol/L Chloride (98-107) mmol/L BUN (7-17) mg/dL Creatinine (0.7-1.2) mg/dL Glucose (65-100) mg/dL POC Glucose 151 H 160 H (70-105) 10/06/16 10/06/16 10/06/16 Range/Units 03:57 03:57 05:38 WBC 45.3 H* (4.5-11.0) K/mm3 RBC 3.08 L (3.65-5.03) M/mm3 Hgb 7.5 L (10.1-14.3) gm/dl Hct 24.5 L (30.3-42.9) % MCH 25 L (28-32) pg RDW 20.1 H (13.2-15.2) % Seg Neuts % (Manual) 24.0 L (40.0-70.0) % Lymphocytes % (Manual) 10.0 L (13.4-35.0) % Nucleated RBC % 36.0 H (0.0-0.9) % Seg Neutrophils # Man 10.9 H (1.8-7.7) K/mm3 Monocytes # (Manual) 3.2 H (0.0-0.8) K/mm3 Eosinophils # (Manual) 0.5 H (0.0-0.4) K/mm3 POC ABG pH (7.35-7.45) POC ABG pCO2 (35-45) POC ABG pO2 (80-105) Sodium 152 H D (137-145) mmol/L Chloride 114.1 H (98-107) mmol/L BUN 58 H (7-17) mg/dL Creatinine 1.6 H (0.7-1.2) mg/dL Glucose 123 H (65-100) mg/dL POC Glucose 129 H (70-105) 10/06/16 10/06/16 10/06/16 Range/Units 06:08 11:38 14:31 WBC (4.5-11.0) K/mm3 RBC (3.65-5.03) M/mm3 Hgb (10.1-14.3) gm/dl Hct (30.3-42.9) % MCH (28-32) pg RDW (13.2-15.2) % Seg Neuts % (Manual) (40.0-70.0) % Lymphocytes % (Manual) (13.4-35.0) % Nucleated RBC % (0.0-0.9) % Seg Neutrophils # Man (1.8-7.7) K/mm3 Monocytes # (Manual) (0.0-0.8) K/mm3 Eosinophils # (Manual) (0.0-0.4) K/mm3 POC ABG pH 7.226 L 7.345 L (7.35-7.45) POC ABG pCO2 63.3 H 49.5 H (35-45) POC ABG pO2 60 L (80-105) Sodium (137-145) mmol/L Chloride (98-107) mmol/L BUN (7-17) mg/dL Creatinine (0.7-1.2) mg/dL Glucose (65-100) mg/dL POC Glucose 126 H (70-105) 10/06/16 Range/Units 18:10 WBC (4.5-11.0) K/mm3 RBC (3.65-5.03) M/mm3 Hgb (10.1-14.3) gm/dl Hct (30.3-42.9) % MCH (28-32) pg RDW (13.2-15.2) % Seg Neuts % (Manual) (40.0-70.0) % Lymphocytes % (Manual) (13.4-35.0) % Nucleated RBC % (0.0-0.9) % Seg Neutrophils # Man (1.8-7.7) K/mm3 Monocytes # (Manual) (0.0-0.8) K/mm3 Eosinophils # (Manual) (0.0-0.4) K/mm3 POC ABG pH (7.35-7.45) POC ABG pCO2 (35-45) POC ABG pO2 (80-105) Sodium (137-145) mmol/L Chloride (98-107) mmol/L BUN (7-17) mg/dL Creatinine (0.7-1.2) mg/dL Glucose (65-100) mg/dL POC Glucose 196 H (70-105) Microbiology 10/03/16 09:06 Urine,Catheterized - Indwelling Catheter Urine Culture - Final 10/03/16 09:20 Peripheral/Venous Blood Culture - Preliminary NO GROWTH AFTER 72 HOURS 10/03/16 09:30 Picc Blood Culture - Preliminary NO GROWTH AFTER 72 HOURS 09/27/16 22:47 Peripheral/Venous Blood Culture - Final NO GROWTH AFTER 5 DAYS 09/27/16 22:47 Peripheral/Venous Blood Culture - Final NO GROWTH AFTER 5 DAYS 09/27/16 15:06 Peripheral/Venous Blood Culture - Final NO GROWTH AFTER 5 DAYS 09/27/16 14:40 Peripheral/Venous Blood Culture - Final NO GROWTH AFTER 5 DAYS 09/30/16 Unknown Tracheal Aspirate Sputum Culture - Final Active Medications Acetaminophen (Tylenol) 650 mg PO Q4H PRN PRN Reason: Pain MILD(1-3)/Fever >100.5/PALACIOS Last Admin: 10/06/16 08:59 Dose: 650 mg Albuterol/Ipratropium (Duoneb 0.5 Mg-3 Mg/3 Ml Soln) 1 ampul IH Q6HRT [facility] Last Admin: 10/06/16 15:17 Dose: Not Given Lipase/Protease/Amylase (Pancreaze Dr 10,500 Unit) 1 each FEEDTUBE PRN PRN PRN Reason: For Clogged Feeding Tube Arformoterol Tartrate (Brovana Nebu) 15 mcg IH Q12HRT [facility] Last Admin: 10/06/16 08:15 Dose: 15 mcg Aspirin (Aspirin) 325 mg PO QDAY [facility] Last Admin: 10/06/16 09:17 Dose: 325 mg Budesonide (Pulmicort) 0.5 mg IH Q12HRT [facility] Last Admin: 10/06/16 08:15 Dose: 0.5 mg Diphenhydramine HCl (Benadryl) 12.5 mg IV Q4H PRN PRN Reason: Itching Last Admin: 09/30/16 07:02 Dose: 12.5 mg Enoxaparin Sodium (Lovenox) 40 mg SUB-Q QDAY [facility] Last Admin: 10/06/16 09:18 Dose: 40 mg Famotidine (Pepcid) 20 mg PO BID [facility] Last Admin: 10/06/16 09:18 Dose: 20 mg Folic Acid (Folvite) 1 mg PO QDAY [facility] Last Admin: 10/06/16 09:17 Dose: 1 mg Furosemide (Lasix) 40 mg IV QDAY [facility] Last Admin: 10/06/16 09:17 Dose: 40 mg Hydrophilic Ointment (Vaseline Lip Therapy) 1 applic TP Q2HR PRN PRN Reason: Dry Lips Fentanyl Citrate (Fentanyl Drip Premix) 2,000 mcg in 100 mls @ 4.649 mls/hr IV TITR [facility]; 1 MCG/KG/HR PRN Reason: Protocol Last Admin: 10/06/16 15:01 Dose: 3 mcg/kg/hr, 13.948 mls/hr Propofol (Diprivan 10 Mg/Ml) 1,000 mg in 100 mls @ 2.79 mls/hr IV TITR [facility]; 5 MCG/KG/MIN PRN Reason: Protocol Midazolam HCl 100 mg/ Sodium (Chloride) 100 mls @ 2 mls/hr IV TITR [facility]; 2 MG/HR PRN Reason: Protocol Last Admin: 10/04/16 12:54 Dose: 2 mg/hr, 2 mls/hr Cefepime HCl (Maxipime/Ns 2 Gm/100 Ml) 2 gm in 100 mls @ 200 mls/hr IV Q12HR [facility] PRN Reason: Protocol Last Admin: 10/06/16 09:29 Dose: 200 mls/hr Sodium Chloride (Nacl 0.45% 1000 Ml) 1,000 mls @ 125 mls/hr IV DIRECT [facility] Dextrose/Sodium Chloride (D5ns 0.2%) 1,000 mls @ 75 mls/hr IV DIRECT [facility] Last Admin: 10/06/16 11:14 Dose: 75 mls/hr Insulin Human Regular (Novolin R) 0 units SUB-Q Q6HR [facility] PRN Reason: Protocol Last Admin: 10/06/16 18:39 Dose: 1 units Metronidazole (Flagyl) 500 mg FEEDTUBE Q8HR [facility] Last Admin: 10/06/16 15:00 Dose: 500 mg Multi-Ingred Cream/Lotion/Oil/Oint (Artificial Tears Ophth Oint) 1 applic OU Q4HR PRN PRN Reason: Dry Eye(s) Multivitamins (Theragran Tab) 1 each PO QDAY [facility] Last Admin: 10/06/16 09:19 Dose: 1 each Ondansetron HCl (Zofran) 4 mg IV Q8H PRN PRN Reason: Nausea And Vomiting Last Admin: 09/29/16 23:07 Dose: 4 mg Promethazine HCl (Phenergan) 25 mg [place] Q6H PRN PRN Reason: Nausea And Vomiting Last Admin: 09/25/16 22:05 Dose: 25 mg Senna (Senokot) 17.2 mg PO DAILY [facility] Last Admin: 10/06/16 09:18 Dose: 17.2 mg Simple Syrup (Simple Syrup) 15 ml FEEDTUBE PRN PRN PRN Reason: Hypoglycemia Simple Syrup (Simple Syrup) 30 ml FEEDTUBE PRN PRN PRN Reason: Hypoglycemia Sodium Bicarbonate (Sodium Bicarbonate) 325 mg FEEDTUBE PRN PRN PRN Reason: For Clogged Feeding Tube Sodium Chloride (Sodium Chloride Flush Syringe 10 Ml) 10 ml IV PRN PRN PRN Reason: LINE FLUSH Tramadol HCl (Ultram) 50 mg PO Q4H PRN PRN Reason: Pain, Moderate (4-6) Last Admin: 09/26/16 20:45 Dose: 50 mg Valacyclovir HCl (Valtrex) 500 mg PO DAILY [facility] Last Admin: 10/06/16 09:18 Dose: 500 mg Vancomycin HCl (Vancomycin Pharmacy To Dose) 1 each IV PKCONSULT [facility] PRN Reason: Protocol Zolpidem Tartrate (Ambien) 5 mg PO QHS PRN PRN Reason: Sleep - Imaging and cardiology Chest x-ray: report reviewed (significant improvement of bilateral infiltrates vs. pulmonary edema)
[2016-10-06 21:16] LABS: ISTAT Base Excess 2; ISTAT HCO3 28.3; ISTAT PCO2 55.2 (35-45); ISTAT PH 7.317 (7.35-7.45); ISTAT PO2 59 (80-105); ISTAT SO2 87; ISTAT TCO2 30
[2016-10-06] MEDS: ULTRAM PO PRN (21:54)
[2016-10-07 01:47] LABS: Hematocrit 24.4 % (30.3-42.9); Hemoglobin 7.5 gm/dl (10.1-14.3); Mean Corpuscular HGB Conc 31 % (30-34); Mean Corpuscular Volume 80 fl (79-97); Platelet Count 285 K/mm3 (140-440); Red Blood Count 3.06 M/mm3 (3.65-5.03)
[2016-10-07 01:50] LABS: BUN/Creatinine Ratio 32.94; Calcium 9.4 mg/dL (8.4-10.2)
[2016-10-07 01:51] LABS: Chloride 110.2 mmol/L (98-107); Potassium 3.8 mmol/L (3.6-5.0)
[2016-10-07 02:09] LABS: Mean Corpuscular Hemoglobin 24 pg (28-32); Red Cell Distribution Width 20.7 % (13.2-15.2); White Blood Count 55.1 K/mm3 (4.5-11.0)
[2016-10-07] MEDS: DUONEB 0.5 MG-3 MG/3 ML SOLN IH SCH ×4 (02:30→20:53)
[2016-10-07] MEDS: fentaNYL DRIP Premix 2,000 MCG/100 ML BAG IV SCH ×2 (03:32→17:00)
[2016-10-07] MEDS: FLAGYL FEEDTUBE SCH ×2 (05:45→14:05)
[2016-10-07 06:34] LABS: Anisocytosis 3+; Basophils % (Manual) 0 % (0.0-1.8); Blastocytes % (Manual) 0 %; Diff Status Complete; Hypochromasia 2+; Polychromasia 1+; Target Cells 1+
[2016-10-07 06:35] LABS: Large Platelets Few; Platelet Estimate Cons
[2016-10-07 06:47] LABS: ISTAT Base Excess 2; ISTAT PCO2 55.6 (35-45); ISTAT PO2 65 (80-105); ISTAT SO2 90; ISTAT TCO2 30
--- NOTE | 2016-10-07 07:26 | XRay Report ---
AP CHEST: HISTORY: Followup respiratory failure Lines and support devices remain in good position. There is further decrease in the bilateral infiltrates since yesterday's exam. Mild residual infiltrate persists. No consolidation, large pleural effusion or pneumothorax. The heart size is within normal limits. IMPRESSION: Further improvement in the bilateral infiltrates or pulmonary edema.
[2016-10-07] MEDS: BROVANA NEBU IH SCH ×2 (09:15→20:52)
[2016-10-07] MEDS: PULMICORT IH SCH ×2 (09:15→20:53)
[2016-10-07] MEDS: MAXIPIME/NS 2 GM/100 ML 2 GM/100 ML BAG IV SCH ×2 (09:56→21:49)
[2016-10-07] MEDS: SENOKOT PO SCH (09:57)
[2016-10-07] MEDS: LASIX IV SCH (09:57)
[2016-10-07] MEDS: FOLVITE PO SCH (09:57)
[2016-10-07] MEDS: VALTREX PO SCH (09:58)
[2016-10-07] MEDS: LOVENOX SUB-Q SCH (09:58)
[2016-10-07] MEDS: ASPIRIN PO SCH (09:58)
[2016-10-07] MEDS: PEPCID PO SCH ×2 (09:58→21:48)
[2016-10-07] MEDS: THERAGRAN Tab PO SCH (09:59)
--- NOTE | 2016-10-07 11:22 | Progress Note ---
Assessment and Plan - Patient Problems (1) ARDS (adult respiratory distress syndrome) Current Visit: Yes Status: Acute Plan to address problem: ARDS net protocol with lung protective strategies Start diuresing as tolerated by renal function and electrolyte profile VTE and stress ulcer prophylaxis Adequate analgesia/agitation management Nutrition- continue Glycemic control (2) Acute respiratory failure with hypoxia Current Visit: Yes Status: Acute Plan to address problem: Continue current therapies. Gentle diuresis as tolerated by BP and renal function (3) Leukemoid reaction Current Visit: Yes Status: Acute Plan to address problem: Antibiotics as per ID service. (4) Acute renal failure due to tubular necrosis Current Visit: Yes Status: Acute (5) Acute hypernatremia Current Visit: Yes Status: Acute Plan to address problem: Free water and monitor closely (6) H/O total hip arthroplasty Current Visit: Yes Status: Acute Qualifiers: Laterality: left Qualified Code(s): Z96.642 - Presence of left artificial hip joint Subjective Date of service: 10/07/16 Principal diagnosis: Acute Hypoxemic Respiratory Failure; ARDS Interval history: Remains critically ill on mechanical ventilatory support. Family at the bedside. Patient-ventilator dysynchrony Currently on fentanyl for sedation/analgesia but tachycaric and hypertensive at the time of my visit. On APRV Ph 40, Plow 8, Th 5sec, Tlow 0.5 ABG 7.31/65/28/BE 2, 90% Patient seen and examined. Vitals, labs, medications, chart reviewed. Discussed with RN and multidisciplinary team Objective - Exam Narrative Exam: GENERAL: well-developed and well-nourished [place] female lying on bed , ventilator patient dyssynchrony. Intubated and sedated. HEENT: Normocephalic. Atraumatic. No conjunctival congestion or icterus. Patient has moist mucous membranes. NECK: Supple. Trachea midline. ET tube in place CHEST/LUNGS: Coarse breath sounds auscultated bilaterally, on mechanical ventilation HEART/CARDIOVASCULAR: Regular in rate and rhythm. S1 and S2 positive. ABDOMEN: Abdomen is soft, nontender. Patient has normal bowel sounds. SKIN: There is no rash. Warm and dry. NEURO: Sedated. MUSCULOSKELETAL: No joint effusion or tenderness. EXTREMITY: Bilateral upper extremity edema. L>>>R PICC line LUExt PSYCH: Unable to assess. Vital Signs - 12hr 10/06/16 10/06/16 10/07/16 23:29 23:51 00:00 Temperature Pulse Rate 124 H 129 H 115 H Pulse Rate [ Anterior Bilateral Throughout] Pulse Rate [ 110 H From Monitor] Respiratory 19 21 Rate Respiratory Rate [Anterior Bilateral Throughout] Blood Pressure 158/117 160/73 164/81 O2 Sat by Pulse 94 95 91 Oximetry 10/07/16 10/07/16 10/07/16 00:11 00:21 00:30 Temperature Pulse Rate 116 H 122 H 118 H Pulse Rate [ Anterior Bilateral Throughout] Pulse Rate [ From Monitor] Respiratory 19 20 19 Rate Respiratory Rate [Anterior Bilateral Throughout] Blood Pressure 164/81 164/81 142/81 O2 Sat by Pulse 95 94 89 Oximetry 10/07/16 10/07/16 10/07/16 00:41 00:51 01:00 Temperature Pulse Rate 126 H 120 H 120 H Pulse Rate [ Anterior Bilateral Throughout] Pulse Rate [ From Monitor] Respiratory 23 21 25 H Rate Respiratory Rate [Anterior Bilateral Throughout] Blood Pressure 142/81 164/81 146/80 O2 Sat by Pulse 96 95 90 Oximetry 10/07/16 10/07/16 10/07/16 01:11 01:21 01:30 Temperature Pulse Rate 122 H 125 H 122 H Pulse Rate [ Anterior Bilateral Throughout] Pulse Rate [ From Monitor] Respiratory 14 14 15 Rate Respiratory Rate [Anterior Bilateral Throughout] Blood Pressure 146/80 146/80 154/83 O2 Sat by Pulse 95 95 89 Oximetry 10/07/16 10/07/16 10/07/16 01:41 01:51 02:00 Temperature Pulse Rate 121 H 120 H 106 H Pulse Rate [ Anterior Bilateral Throughout] Pulse Rate [ From Monitor] Respiratory 15 23 19 Rate Respiratory Rate [Anterior Bilateral Throughout] Blood Pressure 154/83 154/83 154/74 O2 Sat by Pulse 94 95 91 Oximetry 10/07/16 10/07/16 10/07/16 02:11 02:21 02:30 Temperature Pulse Rate 115 H 117 H 114 H Pulse Rate [ Anterior Bilateral Throughout] Pulse Rate [ From Monitor] Respiratory 14 13 21 Rate Respiratory Rate [Anterior Bilateral Throughout] Blood Pressure 154/74 154/74 160/71 O2 Sat by Pulse 95 95 97 Oximetry 10/07/16 10/07/16 10/07/16 02:34 02:39 02:41 Temperature Pulse Rate 98 H Pulse Rate [ 118 H 117 H Anterior Bilateral Throughout] Pulse Rate [ From Monitor] Respiratory 17 Rate Respiratory 29 H 235 H Rate [Anterior Bilateral Throughout] Blood Pressure 160/71 O2 Sat by Pulse 94 Oximetry 10/07/16 10/07/16 10/07/16 02:51 03:00 03:11 Temperature Pulse Rate 122 H 109 H 121 H Pulse Rate [ Anterior Bilateral Throughout] Pulse Rate [ From Monitor] Respiratory 15 13 13 Rate Respiratory Rate [Anterior Bilateral Throughout] Blood Pressure 160/71 162/77 162/77 O2 Sat by Pulse 95 89 96 Oximetry 10/07/16 10/07/16 10/07/16 03:21 03:31 03:41 Temperature Pulse Rate 110 H 103 H 113 H Pulse Rate [ Anterior Bilateral Throughout] Pulse Rate [ From Monitor] Respiratory 13 14 14 Rate Respiratory Rate [Anterior Bilateral Throughout] Blood Pressure 162/77 150/71 150/71 O2 Sat by Pulse 94 95 95 Oximetry 10/07/16 10/07/16 10/07/16 03:51 04:00 04:10 Temperature Pulse Rate 115 H 117 H 111 H Pulse Rate [ Anterior Bilateral Throughout] Pulse Rate [ 107 H From Monitor] Respiratory 11 L 14 Rate Respiratory Rate [Anterior Bilateral Throughout] Blood Pressure 150/71 140/85 140/5 O2 Sat by Pulse 96 90 96 Oximetry 10/07/16 10/07/16 10/07/16 04:11 04:21 04:30 Temperature Pulse Rate 118 H 121 H 112 H Pulse Rate [ Anterior Bilateral Throughout] Pulse Rate [ From Monitor] Respiratory 16 16 14 Rate Respiratory Rate [Anterior Bilateral Throughout] Blood Pressure 140/85 150/71 159/73 O2 Sat by Pulse 96 95 90 Oximetry 10/07/16 10/07/16 10/07/16 04:41 04:51 05:01 Temperature Pulse Rate 109 H 120 H 113 H Pulse Rate [ Anterior Bilateral Throughout] Pulse Rate [ From Monitor] Respiratory 15 21 15 Rate Respiratory Rate [Anterior Bilateral Throughout] Blood Pressure 159/73 159/73 152/78 O2 Sat by Pulse 94 94 92 Oximetry 10/07/16 10/07/16 10/07/16 05:11 05:21 05:30 Temperature Pulse Rate 116 H 100 H 111 H Pulse Rate [ Anterior Bilateral Throughout] Pulse Rate [ From Monitor] Respiratory 18 13 17 Rate Respiratory Rate [Anterior Bilateral Throughout] Blood Pressure 152/78 152/78 147/79 O2 Sat by Pulse 96 96 91 Oximetry 10/07/16 10/07/16 10/07/16 05:41 05:51 06:00 Temperature Pulse Rate 117 H 119 H 119 H Pulse Rate [ Anterior Bilateral Throughout] Pulse Rate [ From Monitor] Respiratory 12 13 17 Rate Respiratory Rate [Anterior Bilateral Throughout] Blood Pressure 147/79 147/79 155/84 O2 Sat by Pulse 95 96 91 Oximetry 10/07/16 10/07/16 10/07/16 06:11 06:21 06:30 Temperature Pulse Rate 105 H 113 H 106 H Pulse Rate [ Anterior Bilateral Throughout] Pulse Rate [ From Monitor] Respiratory 12 15 14 Rate Respiratory Rate [Anterior Bilateral Throughout] Blood Pressure 155/84 155/84 179/77 O2 Sat by Pulse 94 95 90 Oximetry 10/07/16 10/07/16 10/07/16 06:41 06:51 07:00 Temperature Pulse Rate 110 H 112 H 116 H Pulse Rate [ Anterior Bilateral Throughout] Pulse Rate [ From Monitor] Respiratory 11 L 18 15 Rate Respiratory Rate [Anterior Bilateral Throughout] Blood Pressure 179/77 179/77 158/86 O2 Sat by Pulse 93 92 88 Oximetry 10/07/16 10/07/16 10/07/16 07:11 07:20 07:30 Temperature Pulse Rate 119 H 116 H 113 H Pulse Rate [ Anterior Bilateral Throughout] Pulse Rate [ From Monitor] Respiratory 13 13 14 Rate Respiratory Rate [Anterior Bilateral Throughout] Blood Pressure 158/86 158/86 144/84 O2 Sat by Pulse 94 94 85 Oximetry 10/07/16 10/07/16 10/07/16 07:41 07:51 08:00 Temperature 99.1 F Pulse Rate 117 H 110 H 100 H Pulse Rate [ Anterior Bilateral Throughout] Pulse Rate [ From Monitor] Respiratory 15 16 20 Rate Respiratory Rate [Anterior Bilateral Throughout] Blood Pressure 158/86 158/86 141/83 O2 Sat by Pulse 93 92 90 Oximetry 10/07/16 10/07/16 10/07/16 08:11 08:21 08:30 Temperature Pulse Rate 110 H 98 H 114 H Pulse Rate [ Anterior Bilateral Throughout] Pulse Rate [ From Monitor] Respiratory 13 16 14 Rate Respiratory Rate [Anterior Bilateral Throughout] Blood Pressure 141/83 141/83 153/82 O2 Sat by Pulse 94 93 89 Oximetry 10/07/16 10/07/16 10/07/16 08:41 08:51 09:01 Temperature Pulse Rate 115 H 107 H 103 H Pulse Rate [ Anterior Bilateral Throughout] Pulse Rate [ From Monitor] Respiratory 16 14 21 Rate Respiratory Rate [Anterior Bilateral Throughout] Blood Pressure 153/82 153/82 150/89 O2 Sat by Pulse 93 92 90 Oximetry 10/07/16 10/07/16 10/07/16 09:11 09:21 09:25 Temperature Pulse Rate 94 H 104 H Pulse Rate [ 102 H 73 Anterior Bilateral Throughout] Pulse Rate [ From Monitor] Respiratory 14 15 Rate Respiratory 29 H 33 H Rate [Anterior Bilateral Throughout] Blood Pressure 150/89 150/89 O2 Sat by Pulse 94 87 Oximetry 10/07/16 10/07/16 10/07/16 09:30 09:41 09:51 Temperature Pulse Rate 108 H 104 H 119 H Pulse Rate [ Anterior Bilateral Throughout] Pulse Rate [ From Monitor] Respiratory 20 13 14 Rate Respiratory Rate [Anterior Bilateral Throughout] Blood Pressure 143/91 143/91 143/91 O2 Sat by Pulse 83 L 92 90 Oximetry 10/07/16 10/07/16 10/07/16 10:01 10:11 10:21 Temperature Pulse Rate 106 H 116 H 115 H Pulse Rate [ Anterior Bilateral Throughout] Pulse Rate [ From Monitor] Respiratory 15 19 16 Rate Respiratory Rate [Anterior Bilateral Throughout] Blood Pressure 129/69 129/69 129/69 O2 Sat by Pulse 90 90 90 Oximetry 10/07/16 10/07/16 10/07/16 10:30 10:41 10:51 Temperature Pulse Rate 113 H 112 H 108 H Pulse Rate [ Anterior Bilateral Throughout] Pulse Rate [ From Monitor] Respiratory 18 18 14 Rate Respiratory Rate [Anterior Bilateral Throughout] Blood Pressure 149/88 149/88 149/88 O2 Sat by Pulse 85 91 91 Oximetry 10/07/16 11:00 Temperature Pulse Rate 106 H Pulse Rate [ Anterior Bilateral Throughout] Pulse Rate [ From Monitor] Respiratory 20 Rate Respiratory Rate [Anterior Bilateral Throughout] Blood Pressure 147/65 O2 Sat by Pulse 90 Oximetry Constitutional: appears uncomfortable, other (sedated) Eyes: non-icteric ENT: oropharynx moist Neck: supple, no lymphadenopathy Effort: mildly labored Ascultation: Bilateral: diminished breath sounds, rales, rhonchi Cardiovascular: regular rate and rhythm Gastrointestinal: normoactive bowel sounds, soft, non-tender, non-distended Integumentary: normal Extremities: no cyanosis, no edema, pulses normal, no ischemia or petechiae Neurologic: unable to assess Psychiatric: other (sedated now) CBC and BMP: 10/07/16 00:55 10/07/16 00:55 ABG, PT/INR, D-dimer: ABG POC ABG pH 7.310 (7.35-7.45) L 10/07/16 06:31 POC ABG pCO2 55.6 (35-45) H 10/07/16 06:31 POC ABG pO2 65 (80-105) L 10/07/16 06:31 POC ABG HCO3 28.0 10/07/16 06:31 POC ABG Total CO2 30 10/07/16 06:31 POC ABG O2 Sat 90 10/07/16 06:31 PT/INR, D-dimer PT 14.5 Sec. (12.2-14.9) 09/20/16 10:35 INR 1.14 (0.87-1.13) H 09/20/16 10:35 D-Dimer 4758.12 ng/mlDDU (0-234) H 09/27/16 22:47 Abnormal lab findings: Abnormal Labs 09/20/16 09/20/16 09/20/16 10:35 10:35 10:35 WBC 11.7 H RBC Hgb Hct MCV 75 L MCH 24 L RDW 16.6 H Plt Count Seg Neuts % (Manual) Lymphocytes % (Manual) Monocytes % (Manual) Eosinophils % (Manual) Nucleated RBC % Seg Neutrophils # Man Monocytes # (Manual) Eosinophils # (Manual) Percent Retic INR 1.14 H D-Dimer POC ABG pH POC ABG pCO2 POC ABG pO2 Sodium Potassium Chloride Carbon Dioxide BUN Creatinine 0.5 L Glucose 115 H POC Glucose Lactic Acid Calcium Total Bilirubin 2.0 H Lactate Dehydrogenase Total Creatine Kinase CK-MB (CK-2) C-Reactive Protein NT-Pro-B Natriuret Pep Total Protein Albumin Urine WBC (Auto) Urine Creatinine Urine Total Protein Vancomycin Trough Random Vancomycin Crossmatch 09/26/16 09/26/16 09/27/16 04:26 04:26 10:26 WBC RBC Hgb 8.9 L Hct 28.0 L MCV MCH RDW Plt Count Seg Neuts % (Manual) Lymphocytes % (Manual) Monocytes % (Manual) Eosinophils % (Manual) Nucleated RBC % Seg Neutrophils # Man Monocytes # (Manual) Eosinophils # (Manual) Percent Retic INR D-Dimer POC ABG pH 7.283 L POC ABG pCO2 45.3 H POC ABG pO2 79 L Sodium Potassium Chloride Carbon Dioxide 20 L BUN Creatinine Glucose 129 H POC Glucose Lactic Acid Calcium 7.6 L Total Bilirubin Lactate Dehydrogenase Total Creatine Kinase CK-MB (CK-2) C-Reactive Protein NT-Pro-B Natriuret Pep Total Protein Albumin Urine WBC (Auto) Urine Creatinine Urine Total Protein Vancomycin Trough Random Vancomycin Crossmatch 09/27/16 09/27/16 09/27/16 14:40 14:40 15:14 WBC 39.3 H RBC Hgb 9.3 L Hct 28.9 L MCV 75 L MCH 24 L RDW 18.7 H Plt Count Seg Neuts % (Manual) 93.5 H Lymphocytes % (Manual) 5.0 L Monocytes % (Manual) Eosinophils % (Manual) Nucleated RBC % Seg Neutrophils # Man 36.7 H Monocytes # (Manual) Eosinophils # (Manual) Percent Retic INR D-Dimer POC ABG pH POC ABG pCO2 POC ABG pO2 Sodium Potassium Chloride Carbon Dioxide BUN Creatinine Glucose POC Glucose Lactic Acid 2.9 H* Calcium Total Bilirubin Lactate Dehydrogenase Total Creatine Kinase 3575 H CK-MB (CK-2) 11.0 H C-Reactive Protein 16.10 H NT-Pro-B Natriuret Pep Total Protein Albumin Urine WBC (Auto) Urine Creatinine Urine Total Protein Vancomycin Trough Random Vancomycin Crossmatch 09/27/16 09/27/16 09/27/16 18:05 22:47 22:47 WBC RBC Hgb Hct MCV MCH RDW Plt Count Seg Neuts % (Manual) Lymphocytes % (Manual) Monocytes % (Manual) Eosinophils % (Manual) Nucleated RBC % Seg Neutrophils # Man Monocytes # (Manual) Eosinophils # (Manual) Percent Retic INR D-Dimer 4758.12 H POC ABG pH POC ABG pCO2 POC ABG pO2 70 L Sodium Potassium Chloride Carbon Dioxide BUN Creatinine Glucose POC Glucose Lactic Acid Calcium Total Bilirubin Lactate Dehydrogenase 829 H Total Creatine Kinase CK-MB (CK-2) C-Reactive Protein NT-Pro-B Natriuret Pep Total Protein Albumin Urine WBC (Auto) Urine Creatinine Urine Total Protein Vancomycin Trough Random Vancomycin Crossmatch 09/27/16 09/28/16 09/28/16 22:47 09:20 10:47 WBC RBC Hgb Hct MCV MCH RDW Plt Count Seg Neuts % (Manual) Lymphocytes % (Manual) Monocytes % (Manual) Eosinophils % (Manual) Nucleated RBC % Seg Neutrophils # Man Monocytes # (Manual) Eosinophils # (Manual) Percent Retic 8.11 H INR D-Dimer POC ABG pH POC ABG pCO2 47.2 H POC ABG pO2 70 L Sodium Potassium Chloride Carbon Dioxide BUN Creatinine 0.6 L Glucose 137 H POC Glucose Lactic Acid Calcium Total Bilirubin Lactate Dehydrogenase Total Creatine Kinase CK-MB (CK-2) C-Reactive Protein NT-Pro-B Natriuret Pep Total Protein Albumin Urine WBC (Auto) Urine Creatinine Urine Total Protein Vancomycin Trough Random Vancomycin Crossmatch 09/28/16 09/30/16 09/30/16 10:47 11:01 14:05 WBC 30.3 H RBC 3.27 L Hgb 8.1 L Hct 24.4 L MCV 75 L MCH 25 L RDW 18.9 H Plt Count Seg Neuts % (Manual) Lymphocytes % (Manual) 12.0 L Monocytes % (Manual) Eosinophils % (Manual) Nucleated RBC % 5.0 H Seg Neutrophils # Man 21.2 H Monocytes # (Manual) 1.8 H Eosinophils # (Manual) Percent Retic INR D-Dimer POC ABG pH POC ABG pCO2 48.8 H POC ABG pO2 52 L Sodium Potassium Chloride Carbon Dioxide BUN Creatinine Glucose POC Glucose Lactic Acid Calcium Total Bilirubin Lactate Dehydrogenase Total Creatine Kinase CK-MB (CK-2) C-Reactive Protein NT-Pro-B Natriuret Pep 2018 H Total Protein Albumin Urine WBC (Auto) Urine Creatinine Urine Total Protein Vancomycin Trough Random Vancomycin Crossmatch 09/30/16 09/30/16 09/30/16 14:05 14:05 14:05 WBC 22.1 H RBC 2.76 L Hgb 6.9 L Hct 20.6 L MCV 75 L MCH 25 L RDW 18.7 H Plt Count Seg Neuts % (Manual) 74.0 H Lymphocytes % (Manual) 7.0 L Monocytes % (Manual) Eosinophils % (Manual) Nucleated RBC % 52.0 H Seg Neutrophils # Man 16.4 H Monocytes # (Manual) Eosinophils # (Manual) Percent Retic INR D-Dimer POC ABG pH POC ABG pCO2 POC ABG pO2 Sodium Potassium 3.1 L Chloride Carbon Dioxide BUN Creatinine 0.5 L Glucose 116 H POC Glucose Lactic Acid Calcium 8.2 L Total Bilirubin Lactate Dehydrogenase Total Creatine Kinase CK-MB (CK-2) C-Reactive Protein 30.80 H NT-Pro-B Natriuret Pep Total Protein Albumin Urine WBC (Auto) Urine Creatinine Urine Total Protein Vancomycin Trough Random Vancomycin Crossmatch 09/30/16 10/01/16 10/01/16 14:33 00:55 00:55 WBC 26.1 H RBC 2.80 L Hgb 6.8 L Hct 20.8 L MCV 74 L MCH 24 L RDW 18.6 H Plt Count Seg Neuts % (Manual) 85.0 H Lymphocytes % (Manual) 11.0 L Monocytes % (Manual) Eosinophils % (Manual) Nucleated RBC % 21.0 H Seg Neutrophils # Man 22.2 H Monocytes # (Manual) 1.0 H Eosinophils # (Manual) Percent Retic INR D-Dimer POC ABG pH POC ABG pCO2 47.8 H POC ABG pO2 201 H Sodium Potassium Chloride Carbon Dioxide BUN Creatinine Glucose POC Glucose Lactic Acid Calcium Total Bilirubin Lactate Dehydrogenase Total Creatine Kinase CK-MB (CK-2) C-Reactive Protein NT-Pro-B Natriuret Pep Total Protein Albumin Urine WBC (Auto) Urine Creatinine Urine Total Protein Vancomycin Trough Random Vancomycin Crossmatch See Detail 10/01/16 10/01/16 10/01/16 04:57 05:00 13:01 WBC RBC Hgb Hct MCV MCH RDW Plt Count Seg Neuts % (Manual) Lymphocytes % (Manual) Monocytes % (Manual) Eosinophils % (Manual) Nucleated RBC % Seg Neutrophils # Man Monocytes # (Manual) Eosinophils # (Manual) Percent Retic INR D-Dimer POC ABG pH POC ABG pCO2 58.5 H POC ABG pO2 149 H Sodium 149 H Potassium 3.0 L Chloride Carbon Dioxide BUN Creatinine Glucose POC Glucose 120 H Lactic Acid Calcium 8.3 L Total Bilirubin Lactate Dehydrogenase Total Creatine Kinase CK-MB (CK-2) C-Reactive Protein NT-Pro-B Natriuret Pep Total Protein Albumin Urine WBC (Auto) Urine Creatinine Urine Total Protein Vancomycin Trough Random Vancomycin Crossmatch 10/01/16 10/01/16 10/01/16 15:43 17:44 23:37 WBC 27.6 H RBC 3.55 L Hgb 8.9 L Hct 27.6 L D MCV 78 L D MCH 25 L RDW 18.1 H Plt Count Seg Neuts % (Manual) 79.5 H Lymphocytes % (Manual) 8.0 L Monocytes % (Manual) Eosinophils % (Manual) Nucleated RBC % 65.0 H Seg Neutrophils # Man 21.9 H Monocytes # (Manual) 1.0 H Eosinophils # (Manual) Percent Retic INR D-Dimer POC ABG pH POC ABG pCO2 POC ABG pO2 Sodium Potassium Chloride Carbon Dioxide BUN Creatinine Glucose POC Glucose 121 H 129 H Lactic Acid Calcium Total Bilirubin Lactate Dehydrogenase Total Creatine Kinase CK-MB (CK-2) C-Reactive Protein NT-Pro-B Natriuret Pep Total Protein Albumin Urine WBC (Auto) Urine Creatinine Urine Total Protein Vancomycin Trough Random Vancomycin Crossmatch 10/02/16 10/02/16 10/02/16 05:05 05:40 06:00 WBC 23.0 H RBC 3.30 L Hgb 8.3 L Hct 25.8 L MCV 78 L MCH 25 L RDW 18.2 H Plt Count Seg Neuts % (Manual) 83.5 H Lymphocytes % (Manual) 4.0 L Monocytes % (Manual) Eosinophils % (Manual) Nucleated RBC % 14.5 H Seg Neutrophils # Man 25.1 H Monocytes # (Manual) 1.7 H Eosinophils # (Manual) Percent Retic INR D-Dimer POC ABG pH POC ABG pCO2 50.5 H POC ABG pO2 Sodium Potassium Chloride Carbon Dioxide BUN Creatinine Glucose POC Glucose 123 H Lactic Acid Calcium Total Bilirubin Lactate Dehydrogenase Total Creatine Kinase CK-MB (CK-2) C-Reactive Protein NT-Pro-B Natriuret Pep Total Protein Albumin Urine WBC (Auto) Urine Creatinine Urine Total Protein Vancomycin Trough Random Vancomycin Crossmatch 10/02/16 10/02/16 10/02/16 06:00 11:42 21:52 WBC RBC Hgb Hct MCV MCH RDW Plt Count Seg Neuts % (Manual) Lymphocytes % (Manual) Monocytes % (Manual) Eosinophils % (Manual) Nucleated RBC % Seg Neutrophils # Man Monocytes # (Manual) Eosinophils # (Manual) Percent Retic INR D-Dimer POC ABG pH 7.324 L POC ABG pCO2 60.5 H POC ABG pO2 74 L Sodium 150 H Potassium Chloride 108.3 H Carbon Dioxide BUN 20 H Creatinine 1.4 H D Glucose 117 H POC Glucose 135 H Lactic Acid Calcium Total Bilirubin Lactate Dehydrogenase Total Creatine Kinase CK-MB (CK-2) C-Reactive Protein NT-Pro-B Natriuret Pep Total Protein Albumin Urine WBC (Auto) Urine Creatinine Urine Total Protein Vancomycin Trough Random Vancomycin Crossmatch 10/02/16 10/03/16 10/03/16 23:26 05:55 08:17 WBC 32.0 H RBC 3.13 L Hgb 7.9 L Hct 24.6 L MCV MCH 25 L RDW 18.9 H Plt Count 132 L Seg Neuts % (Manual) 75.0 H Lymphocytes % (Manual) 5.0 L Monocytes % (Manual) Eosinophils % (Manual) Nucleated RBC % 26.0 H Seg Neutrophils # Man 24.0 H Monocytes # (Manual) 1.0 H Eosinophils # (Manual) 1.0 H Percent Retic INR D-Dimer POC ABG pH POC ABG pCO2 POC ABG pO2 Sodium Potassium Chloride Carbon Dioxide BUN Creatinine Glucose POC Glucose 121 H 145 H Lactic Acid Calcium Total Bilirubin Lactate Dehydrogenase Total Creatine Kinase CK-MB (CK-2) C-Reactive Protein NT-Pro-B Natriuret Pep Total Protein Albumin Urine WBC (Auto) Urine Creatinine Urine Total Protein Vancomycin Trough Random Vancomycin Crossmatch 10/03/16 10/03/16 10/03/16 08:17 09:26 11:34 WBC RBC Hgb Hct MCV MCH RDW Plt Count Seg Neuts % (Manual) Lymphocytes % (Manual) Monocytes % (Manual) Eosinophils % (Manual) Nucleated RBC % Seg Neutrophils # Man Monocytes # (Manual) Eosinophils # (Manual) Percent Retic INR D-Dimer POC ABG pH 7.274 L POC ABG pCO2 59.7 H POC ABG pO2 58 L Sodium 147 H Potassium Chloride 107.6 H Carbon Dioxide BUN 31 H Creatinine 1.7 H Glucose 118 H POC Glucose 142 H Lactic Acid Calcium Total Bilirubin Lactate Dehydrogenase Total Creatine Kinase CK-MB (CK-2) C-Reactive Protein NT-Pro-B Natriuret Pep Total Protein Albumin Urine WBC (Auto) Urine Creatinine Urine Total Protein Vancomycin Trough Random Vancomycin Crossmatch 10/03/16 10/03/16 10/03/16 15:54 15:54 16:58 WBC RBC Hgb Hct MCV MCH RDW Plt Count Seg Neuts % (Manual) Lymphocytes % (Manual) Monocytes % (Manual) Eosinophils % (Manual) Nucleated RBC % Seg Neutrophils # Man Monocytes # (Manual) Eosinophils # (Manual) Percent Retic INR D-Dimer POC ABG pH POC ABG pCO2 POC ABG pO2 Sodium Potassium Chloride Carbon Dioxide BUN Creatinine Glucose POC Glucose 138 H Lactic Acid Calcium Total Bilirubin Lactate Dehydrogenase Total Creatine Kinase CK-MB (CK-2) C-Reactive Protein NT-Pro-B Natriuret Pep Total Protein Albumin Urine WBC (Auto) 21.0 H Urine Creatinine 63.2 H Urine Total Protein 67 H Vancomycin Trough Random Vancomycin Crossmatch 10/03/16 10/03/16 10/04/16 21:37 23:44 04:00 WBC 30.3 H RBC 2.86 L Hgb 7.3 L Hct 22.6 L MCV MCH 25 L RDW 19.6 H Plt Count 125 L Seg Neuts % (Manual) Lymphocytes % (Manual) 12.0 L Monocytes % (Manual) Eosinophils % (Manual) 5.0 H Nucleated RBC % 30.0 H Seg Neutrophils # Man 12.7 H Monocytes # (Manual) 1.2 H Eosinophils # (Manual) 1.5 H Percent Retic INR D-Dimer POC ABG pH 7.271 L POC ABG pCO2 61.7 H POC ABG pO2 77 L Sodium Potassium Chloride Carbon Dioxide BUN Creatinine Glucose POC Glucose 130 H Lactic Acid Calcium Total Bilirubin Lactate Dehydrogenase Total Creatine Kinase CK-MB (CK-2) C-Reactive Protein NT-Pro-B Natriuret Pep Total Protein Albumin Urine WBC (Auto) Urine Creatinine Urine Total Protein Vancomycin Trough Random Vancomycin Crossmatch 10/04/16 10/04/16 10/04/16 04:03 06:02 12:29 WBC RBC Hgb Hct MCV MCH RDW Plt Count Seg Neuts % (Manual) Lymphocytes % (Manual) Monocytes % (Manual) Eosinophils % (Manual) Nucleated RBC % Seg Neutrophils # Man Monocytes # (Manual) Eosinophils # (Manual) Percent Retic INR D-Dimer POC ABG pH 7.248 L POC ABG pCO2 62.3 H POC ABG pO2 59 L Sodium Potassium Chloride Carbon Dioxide BUN 40 H Creatinine 1.7 H Glucose 110 H POC Glucose 123 H Lactic Acid Calcium Total Bilirubin Lactate Dehydrogenase Total Creatine Kinase CK-MB (CK-2) C-Reactive Protein NT-Pro-B Natriuret Pep Total Protein 5.6 L Albumin 2.1 L Urine WBC (Auto) Urine Creatinine Urine Total Protein Vancomycin Trough Random Vancomycin Crossmatch 10/04/16 10/04/16 10/04/16 12:39 15:14 17:45 WBC RBC Hgb Hct MCV MCH RDW Plt Count Seg Neuts % (Manual) Lymphocytes % (Manual) Monocytes % (Manual) Eosinophils % (Manual) Nucleated RBC % Seg Neutrophils # Man Monocytes # (Manual) Eosinophils # (Manual) Percent Retic INR D-Dimer POC ABG pH POC ABG pCO2 POC ABG pO2 109 H Sodium Potassium Chloride Carbon Dioxide BUN Creatinine Glucose POC Glucose 124 H Lactic Acid Calcium Total Bilirubin Lactate Dehydrogenase Total Creatine Kinase CK-MB (CK-2) C-Reactive Protein NT-Pro-B Natriuret Pep Total Protein Albumin Urine WBC (Auto) Urine Creatinine Urine Total Protein Vancomycin Trough 45.5 H Random Vancomycin Crossmatch 10/04/16 10/04/16 10/05/16 20:13 23:05 01:27 WBC 36.1 H RBC 2.99 L Hgb 7.3 L Hct 23.5 L MCV MCH 25 L RDW 19.6 H Plt Count Seg Neuts % (Manual) Lymphocytes % (Manual) Monocytes % (Manual) Eosinophils % (Manual) Nucleated RBC % Seg Neutrophils # Man Monocytes # (Manual) Eosinophils # (Manual) Percent Retic INR D-Dimer POC ABG pH 7.341 L POC ABG pCO2 POC ABG pO2 47 L Sodium Potassium Chloride Carbon Dioxide BUN Creatinine Glucose POC Glucose 127 H Lactic Acid Calcium Total Bilirubin Lactate Dehydrogenase Total Creatine Kinase CK-MB (CK-2) C-Reactive Protein NT-Pro-B Natriuret Pep Total Protein Albumin Urine WBC (Auto) Urine Creatinine Urine Total Protein Vancomycin Trough Random Vancomycin Crossmatch 10/05/16 10/05/16 10/05/16 01:27 03:50 05:00 WBC RBC Hgb Hct MCV MCH RDW Plt Count Seg Neuts % (Manual) Lymphocytes % (Manual) Monocytes % (Manual) Eosinophils % (Manual) Nucleated RBC % Seg Neutrophils # Man Monocytes # (Manual) Eosinophils # (Manual) Percent Retic INR D-Dimer POC ABG pH 7.330 L POC ABG pCO2 45.3 H POC ABG pO2 53 L Sodium Potassium Chloride Carbon Dioxide BUN 49 H Creatinine 1.6 H Glucose 112 H POC Glucose Lactic Acid Calcium Total Bilirubin Lactate Dehydrogenase Total Creatine Kinase CK-MB (CK-2) C-Reactive Protein NT-Pro-B Natriuret Pep Total Protein Albumin Urine WBC (Auto) Urine Creatinine Urine Total Protein Vancomycin Trough Random Vancomycin 43.6 H Crossmatch 10/05/16 10/05/16 10/05/16 05:30 12:08 14:00 WBC RBC Hgb Hct MCV MCH RDW Plt Count Seg Neuts % (Manual) Lymphocytes % (Manual) Monocytes % (Manual) Eosinophils % (Manual) Nucleated RBC % Seg Neutrophils # Man Monocytes # (Manual) Eosinophils # (Manual) Percent Retic INR D-Dimer POC ABG pH POC ABG pCO2 POC ABG pO2 Sodium Potassium Chloride Carbon Dioxide BUN Creatinine Glucose POC Glucose 141 H 149 H Lactic Acid Calcium Total Bilirubin Lactate Dehydrogenase Total Creatine Kinase CK-MB (CK-2) C-Reactive Protein 28.40 H NT-Pro-B Natriuret Pep Total Protein Albumin Urine WBC (Auto) Urine Creatinine Urine Total Protein Vancomycin Trough Random Vancomycin Crossmatch 10/05/16 10/05/16 10/05/16 15:37 16:41 17:15 WBC RBC Hgb Hct MCV MCH RDW Plt Count Seg Neuts % (Manual) Lymphocytes % (Manual) Monocytes % (Manual) Eosinophils % (Manual) Nucleated RBC % Seg Neutrophils # Man Monocytes # (Manual) Eosinophils # (Manual) Percent Retic INR D-Dimer POC ABG pH 7.157 L 7.133 L POC ABG pCO2 75.0 H 80.5 H POC ABG pO2 76 L Sodium Potassium Chloride Carbon Dioxide BUN Creatinine Glucose POC Glucose 151 H Lactic Acid Calcium Total Bilirubin Lactate Dehydrogenase Total Creatine Kinase CK-MB (CK-2) C-Reactive Protein NT-Pro-B Natriuret Pep Total Protein Albumin Urine WBC (Auto) Urine Creatinine Urine Total Protein Vancomycin Trough Random Vancomycin Crossmatch 10/05/16 10/05/16 10/06/16 19:58 23:50 03:57 WBC 45.3 H* RBC 3.08 L Hgb 7.5 L Hct 24.5 L MCV MCH 25 L RDW 20.1 H Plt Count Seg Neuts % (Manual) 24.0 L Lymphocytes % (Manual) 10.0 L Monocytes % (Manual) Eosinophils % (Manual) Nucleated RBC % 36.0 H Seg Neutrophils # Man 10.9 H Monocytes # (Manual) 3.2 H Eosinophils # (Manual) 0.5 H Percent Retic INR D-Dimer POC ABG pH 7.198 L POC ABG pCO2 69.5 H POC ABG pO2 Sodium Potassium Chloride Carbon Dioxide BUN Creatinine Glucose POC Glucose 160 H Lactic Acid Calcium Total Bilirubin Lactate Dehydrogenase Total Creatine Kinase CK-MB (CK-2) C-Reactive Protein NT-Pro-B Natriuret Pep Total Protein Albumin Urine WBC (Auto) Urine Creatinine Urine Total Protein Vancomycin Trough Random Vancomycin Crossmatch 10/06/16 10/06/16 10/06/16 03:57 05:38 06:08 WBC RBC Hgb Hct MCV MCH RDW Plt Count Seg Neuts % (Manual) Lymphocytes % (Manual) Monocytes % (Manual) Eosinophils % (Manual) Nucleated RBC % Seg Neutrophils # Man Monocytes # (Manual) Eosinophils # (Manual) Percent Retic INR D-Dimer POC ABG pH 7.226 L POC ABG pCO2 63.3 H POC ABG pO2 Sodium 152 H D Potassium Chloride 114.1 H Carbon Dioxide BUN 58 H Creatinine 1.6 H Glucose 123 H POC Glucose 129 H Lactic Acid Calcium Total Bilirubin Lactate Dehydrogenase Total Creatine Kinase CK-MB (CK-2) C-Reactive Protein NT-Pro-B Natriuret Pep Total Protein Albumin Urine WBC (Auto) Urine Creatinine Urine Total Protein Vancomycin Trough Random Vancomycin Crossmatch 10/06/16 10/06/16 10/06/16 11:38 14:31 18:10 WBC RBC Hgb Hct MCV MCH RDW Plt Count Seg Neuts % (Manual) Lymphocytes % (Manual) Monocytes % (Manual) Eosinophils % (Manual) Nucleated RBC % Seg Neutrophils # Man Monocytes # (Manual) Eosinophils # (Manual) Percent Retic INR D-Dimer POC ABG pH 7.345 L POC ABG pCO2 49.5 H POC ABG pO2 60 L Sodium Potassium Chloride Carbon Dioxide BUN Creatinine Glucose POC Glucose 126 H 196 H Lactic Acid Calcium Total Bilirubin Lactate Dehydrogenase Total Creatine Kinase CK-MB (CK-2) C-Reactive Protein NT-Pro-B Natriuret Pep Total Protein Albumin Urine WBC (Auto) Urine Creatinine Urine Total Protein Vancomycin Trough Random Vancomycin Crossmatch 10/06/16 10/07/16 10/07/16 21:07 00:55 00:55 WBC 55.1 H* RBC 3.06 L Hgb 7.5 L Hct 24.4 L MCV MCH 24 L RDW 20.7 H Plt Count Seg Neuts % (Manual) Lymphocytes % (Manual) 8.0 L Monocytes % (Manual) 9.0 H Eosinophils % (Manual) Nucleated RBC % 30.0 H Seg Neutrophils # Man 27.0 H Monocytes # (Manual) 5.0 H Eosinophils # (Manual) 0.6 H Percent Retic INR D-Dimer POC ABG pH 7.317 L POC ABG pCO2 55.2 H POC ABG pO2 59 L Sodium 148 H Potassium Chloride 110.2 H Carbon Dioxide BUN 56 H Creatinine 1.7 H Glucose 211 H POC Glucose Lactic Acid Calcium Total Bilirubin Lactate Dehydrogenase Total Creatine Kinase CK-MB (CK-2) C-Reactive Protein NT-Pro-B Natriuret Pep Total Protein Albumin Urine WBC (Auto) Urine Creatinine Urine Total Protein Vancomycin Trough Random Vancomycin Crossmatch 10/07/16 10/07/16 10/07/16 01:01 05:20 06:31 WBC RBC Hgb Hct MCV MCH RDW Plt Count Seg Neuts % (Manual) Lymphocytes % (Manual) Monocytes % (Manual) Eosinophils % (Manual) Nucleated RBC % Seg Neutrophils # Man Monocytes # (Manual) Eosinophils # (Manual) Percent Retic INR D-Dimer POC ABG pH 7.310 L POC ABG pCO2 55.6 H POC ABG pO2 65 L Sodium Potassium Chloride Carbon Dioxide BUN Creatinine Glucose POC Glucose 249 H 235 H Lactic Acid Calcium Total Bilirubin Lactate Dehydrogenase Total Creatine Kinase CK-MB (CK-2) C-Reactive Protein NT-Pro-B Natriuret Pep Total Protein Albumin Urine WBC (Auto) Urine Creatinine Urine Total Protein Vancomycin Trough Random Vancomycin Crossmatch Allied health notes reviewed: RT Critical Care Time: Yes Critical care time in (mins) excluding proc time.: 45 Critical care attestation.: If time is entered above; I have spent that time in minutes in the direct care of this critically ill patient, excluding procedure time. ED Critical Care Note - Critical Care Note Total Time (mins): 45
--- NOTE | 2016-10-07 12:07 | Progress Note ---
Assessment and Plan 1) Avascular necrosis of bone of left hip Current Visit: Yes Status: Chronic Plan to address problem: S/P Athroplasty to left hip on 09/25/16 (2) Acute respiratory failure with hypoxia Current Visit: Yes Status: Acute Plan to address problem: ARDS, On vent support as per pulmonary (3) Acute renal failure due to tubular necrosis Current Visit: Yes Status: Acute Plan to address problem: cont lasix 40 mg qday, good UOP Avoid Nephrotoxic agents Renally dose medications Monitor I/O's (4) Sepsis syndrome Current Visit: Yes Status: Acute Plan to address problem: ID on board. on broad spectrum antibiotics, negative cultures (5) Acute hypernatremia Current Visit: Yes Status: Acute Plan to address problem: will increase water flushes to 400 cc Q4H Subjective Date of service: 10/07/16 Principal diagnosis: Acute Hypoxemic Respiratory Failure; ARDS Interval history: sedated and intubated Objective - Vital Signs Vital signs: Vital Signs - 12hr 10/07/16 10/07/16 10/07/16 00:11 00:21 00:30 Temperature Pulse Rate 116 H 122 H 118 H Pulse Rate [ Anterior Bilateral Throughout] Pulse Rate [ From Monitor] Respiratory 19 20 19 Rate Respiratory Rate [Anterior Bilateral Throughout] Blood Pressure 164/81 164/81 142/81 O2 Sat by Pulse 95 94 89 Oximetry 10/07/16 10/07/16 10/07/16 00:41 00:51 01:00 Temperature Pulse Rate 126 H 120 H 120 H Pulse Rate [ Anterior Bilateral Throughout] Pulse Rate [ From Monitor] Respiratory 23 21 25 H Rate Respiratory Rate [Anterior Bilateral Throughout] Blood Pressure 142/81 164/81 146/80 O2 Sat by Pulse 96 95 90 Oximetry 10/07/16 10/07/16 10/07/16 01:11 01:21 01:30 Temperature Pulse Rate 122 H 125 H 122 H Pulse Rate [ Anterior Bilateral Throughout] Pulse Rate [ From Monitor] Respiratory 14 14 15 Rate Respiratory Rate [Anterior Bilateral Throughout] Blood Pressure 146/80 146/80 154/83 O2 Sat by Pulse 95 95 89 Oximetry 10/07/16 10/07/16 10/07/16 01:41 01:51 02:00 Temperature Pulse Rate 121 H 120 H 106 H Pulse Rate [ Anterior Bilateral Throughout] Pulse Rate [ From Monitor] Respiratory 15 23 19 Rate Respiratory Rate [Anterior Bilateral Throughout] Blood Pressure 154/83 154/83 154/74 O2 Sat by Pulse 94 95 91 Oximetry 10/07/16 10/07/16 10/07/16 02:11 02:21 02:30 Temperature Pulse Rate 115 H 117 H 114 H Pulse Rate [ Anterior Bilateral Throughout] Pulse Rate [ From Monitor] Respiratory 14 13 21 Rate Respiratory Rate [Anterior Bilateral Throughout] Blood Pressure 154/74 154/74 160/71 O2 Sat by Pulse 95 95 97 Oximetry 10/07/16 10/07/16 10/07/16 02:34 02:39 02:41 Temperature Pulse Rate 98 H Pulse Rate [ 118 H 117 H Anterior Bilateral Throughout] Pulse Rate [ From Monitor] Respiratory 17 Rate Respiratory 29 H 235 H Rate [Anterior Bilateral Throughout] Blood Pressure 160/71 O2 Sat by Pulse 94 Oximetry 10/07/16 10/07/16 10/07/16 02:51 03:00 03:11 Temperature Pulse Rate 122 H 109 H 121 H Pulse Rate [ Anterior Bilateral Throughout] Pulse Rate [ From Monitor] Respiratory 15 13 13 Rate Respiratory Rate [Anterior Bilateral Throughout] Blood Pressure 160/71 162/77 162/77 O2 Sat by Pulse 95 89 96 Oximetry 10/07/16 10/07/16 10/07/16 03:21 03:31 03:41 Temperature Pulse Rate 110 H 103 H 113 H Pulse Rate [ Anterior Bilateral Throughout] Pulse Rate [ From Monitor] Respiratory 13 14 14 Rate Respiratory Rate [Anterior Bilateral Throughout] Blood Pressure 162/77 150/71 150/71 O2 Sat by Pulse 94 95 95 Oximetry 10/07/16 10/07/16 10/07/16 03:51 04:00 04:10 Temperature Pulse Rate 115 H 117 H 111 H Pulse Rate [ Anterior Bilateral Throughout] Pulse Rate [ 107 H From Monitor] Respiratory 11 L 14 Rate Respiratory Rate [Anterior Bilateral Throughout] Blood Pressure 150/71 140/85 140/5 O2 Sat by Pulse 96 90 96 Oximetry 10/07/16 10/07/16 10/07/16 04:11 04:21 04:30 Temperature Pulse Rate 118 H 121 H 112 H Pulse Rate [ Anterior Bilateral Throughout] Pulse Rate [ From Monitor] Respiratory 16 16 14 Rate Respiratory Rate [Anterior Bilateral Throughout] Blood Pressure 140/85 150/71 159/73 O2 Sat by Pulse 96 95 90 Oximetry 10/07/16 10/07/16 10/07/16 04:41 04:51 05:01 Temperature Pulse Rate 109 H 120 H 113 H Pulse Rate [ Anterior Bilateral Throughout] Pulse Rate [ From Monitor] Respiratory 15 21 15 Rate Respiratory Rate [Anterior Bilateral Throughout] Blood Pressure 159/73 159/73 152/78 O2 Sat by Pulse 94 94 92 Oximetry 10/07/16 10/07/16 10/07/16 05:11 05:21 05:30 Temperature Pulse Rate 116 H 100 H 111 H Pulse Rate [ Anterior Bilateral Throughout] Pulse Rate [ From Monitor] Respiratory 18 13 17 Rate Respiratory Rate [Anterior Bilateral Throughout] Blood Pressure 152/78 152/78 147/79 O2 Sat by Pulse 96 96 91 Oximetry 10/07/16 10/07/16 10/07/16 05:41 05:51 06:00 Temperature Pulse Rate 117 H 119 H 119 H Pulse Rate [ Anterior Bilateral Throughout] Pulse Rate [ From Monitor] Respiratory 12 13 17 Rate Respiratory Rate [Anterior Bilateral Throughout] Blood Pressure 147/79 147/79 155/84 O2 Sat by Pulse 95 96 91 Oximetry 10/07/16 10/07/16 10/07/16 06:11 06:21 06:30 Temperature Pulse Rate 105 H 113 H 106 H Pulse Rate [ Anterior Bilateral Throughout] Pulse Rate [ From Monitor] Respiratory 12 15 14 Rate Respiratory Rate [Anterior Bilateral Throughout] Blood Pressure 155/84 155/84 179/77 O2 Sat by Pulse 94 95 90 Oximetry 10/07/16 10/07/16 10/07/16 06:41 06:51 07:00 Temperature Pulse Rate 110 H 112 H 116 H Pulse Rate [ Anterior Bilateral Throughout] Pulse Rate [ From Monitor] Respiratory 11 L 18 15 Rate Respiratory Rate [Anterior Bilateral Throughout] Blood Pressure 179/77 179/77 158/86 O2 Sat by Pulse 93 92 88 Oximetry 10/07/16 10/07/16 10/07/16 07:11 07:20 07:30 Temperature Pulse Rate 119 H 116 H 113 H Pulse Rate [ Anterior Bilateral Throughout] Pulse Rate [ From Monitor] Respiratory 13 13 14 Rate Respiratory Rate [Anterior Bilateral Throughout] Blood Pressure 158/86 158/86 144/84 O2 Sat by Pulse 94 94 85 Oximetry 10/07/16 10/07/16 10/07/16 07:41 07:51 08:00 Temperature 99.1 F Pulse Rate 117 H 110 H 100 H Pulse Rate [ Anterior Bilateral Throughout] Pulse Rate [ From Monitor] Respiratory 15 16 20 Rate Respiratory Rate [Anterior Bilateral Throughout] Blood Pressure 158/86 158/86 141/83 O2 Sat by Pulse 93 92 90 Oximetry 10/07/16 10/07/16 10/07/16 08:11 08:21 08:30 Temperature Pulse Rate 110 H 98 H 114 H Pulse Rate [ Anterior Bilateral Throughout] Pulse Rate [ From Monitor] Respiratory 13 16 14 Rate Respiratory Rate [Anterior Bilateral Throughout] Blood Pressure 141/83 141/83 153/82 O2 Sat by Pulse 94 93 89 Oximetry 10/07/16 10/07/16 10/07/16 08:41 08:51 09:01 Temperature Pulse Rate 115 H 107 H 103 H Pulse Rate [ Anterior Bilateral Throughout] Pulse Rate [ From Monitor] Respiratory 16 14 21 Rate Respiratory Rate [Anterior Bilateral Throughout] Blood Pressure 153/82 153/82 150/89 O2 Sat by Pulse 93 92 90 Oximetry 10/07/16 10/07/16 10/07/16 09:11 09:21 09:25 Temperature Pulse Rate 94 H 104 H Pulse Rate [ 102 H 73 Anterior Bilateral Throughout] Pulse Rate [ From Monitor] Respiratory 14 15 Rate Respiratory 29 H 33 H Rate [Anterior Bilateral Throughout] Blood Pressure 150/89 150/89 O2 Sat by Pulse 94 87 Oximetry 10/07/16 10/07/16 10/07/16 09:30 09:41 09:51 Temperature Pulse Rate 108 H 104 H 119 H Pulse Rate [ Anterior Bilateral Throughout] Pulse Rate [ From Monitor] Respiratory 20 13 14 Rate Respiratory Rate [Anterior Bilateral Throughout] Blood Pressure 143/91 143/91 143/91 O2 Sat by Pulse 83 L 92 90 Oximetry 10/07/16 10/07/16 10/07/16 10:01 10:11 10:21 Temperature Pulse Rate 106 H 116 H 115 H Pulse Rate [ Anterior Bilateral Throughout] Pulse Rate [ From Monitor] Respiratory 15 19 16 Rate Respiratory Rate [Anterior Bilateral Throughout] Blood Pressure 129/69 129/69 129/69 O2 Sat by Pulse 90 90 90 Oximetry 10/07/16 10/07/16 10/07/16 10:30 10:41 10:51 Temperature Pulse Rate 113 H 112 H 108 H Pulse Rate [ Anterior Bilateral Throughout] Pulse Rate [ From Monitor] Respiratory 18 18 14 Rate Respiratory Rate [Anterior Bilateral Throughout] Blood Pressure 149/88 149/88 149/88 O2 Sat by Pulse 85 91 91 Oximetry 10/07/16 11:00 Temperature Pulse Rate 106 H Pulse Rate [ Anterior Bilateral Throughout] Pulse Rate [ From Monitor] Respiratory 20 Rate Respiratory Rate [Anterior Bilateral Throughout] Blood Pressure 147/65 O2 Sat by Pulse 90 Oximetry - General Appearance General appearance: well-developed, well-nourished EENT: ATNC, PERRL, mucous membranes dry Neck: no JVD, no carotid bruit Respiratory: Present: Rales, Ronchi Cardiology: tachycardia, S1S2 Gastrointestinal: normoactive bowel sounds, no tenderness, no distended, no masses, obese Integumentary: no rash, warm and dry Neurologic: other (sedated) Musculoskeletal: other (edema in BLE) Psychiatric: other (sedated) - Lab 10/07/16 00:55 10/07/16 00:55 Most recent lab results Calcium 9.4 mg/dL (8.4-10.2) 10/07/16 00:55 Phosphorus 3.60 mg/dL (2.5-4.5) 10/04/16 04:03 Urine Creatinine 63.2 mg/dL (0.1-20.0) H 10/03/16 15:54 Urine Sodium 20 mEq/L 10/03/16 15:54 Urine Total Protein 67 mg/dL (5-11.8) H 10/03/16 15:54
[2016-10-07] MEDS: DIPRIVAN 10 MG/ML 1,000 MG/100 ML BOTTLE IV SCH (12:43)
--- NOTE | 2016-10-07 13:40 | Progress Note ---
Assessment and Plan The patient is a 41-year-old female with a history of sickle cell disease who was admitted for total hip arthroplasty for avascular necrosis of the left hip. She had left total hip arthroplasty on 09/25/2016 and developed acute hypoxemic respiratory failure following the POD 2 likely from ARDS and ultimately required intubation on 09/27/2016. Her hemoglobin level dropped from 8.1-6.9 on 09/30/2016, also noted to have hypokalemia with potassium level 3.1. Hospitalist service consulted for medical management. Patient remained in a I intubated with mechanical ventilation. Her white count continued to trend up. Maintained on sepsis protocol, CT scan of abdomen and pelvis and thorax done without contrast to identify the source for infection. CT scan of the chest was suggestive for possible pneumonia. She is currently on broad- spectrum antibiotics, critically ill with poor prognosis. Acute respiratory failure - likely due to ARDS with PNA, intubated on 09/27/16 - on mechanical ventilation with 50% FiO2 today - pulmonary following, cont nebulizer, vent support, antibiotics - wean off as tolerated Severe anemia -Initially thought to be due to sickle cell crisis - Discussed with hematology today and patient actually have history of thalassemia major - transfused 1 unit PRBC on 10/01 - monitor h and H - hematology following Avscular necrosis of the left hip - s/p total left hip arthoplasty on 09/25/16 Hypokalemia -Status post replacement Sepsis syndrome - Likely from ARDS - Spiking temp intermittently, wbc count continue to increased - Continue with IV cefepime and vancomycin - Cultures are negative so far - ID following, CT abdomen/pelvis unremarkable - WBC count continued to trend up - Discussed with hematology and will send sample for flow study Hypernatremia - improved with hypotonic iv fluid - cont her on normal saline and free water with tube feeding - Monitor BMP CARLYN - likely from sepsis syndrome - monitor renal function - nephrology following The high probability of a clinically significant, sudden or life threatening deterioration of the system(s) required my full and direct attention, intervention and personal management. The aggregate critical care time was [35] minutes. This time is in addition to time spent performing reported procedures but includes the following: [x] Data Review and interpretation [x] Patient assessment and monitoring of vital signs [x] Documentation [x] Medication orders and management Subjective Date of service: 10/07/16 Principal diagnosis: Acute Hypoxemic Respiratory Failure; ARDS Interval history: Patient seen and examined. Medical records and medication list reviewed. No acute event overnight noted by the RN. Patient remained intubated and sedated Had CT abdomen/pelvis showed no acute finding, CT chest showed PNA Discussed plan of care at bedside with RN WBC count >45,000 today Objective - Exam Narrative Exam: GENERAL: well-developed and well-nourished [place] female lying on bed appeared to be in no discomfort. Intubated and sedated. HEENT: Normocephalic. Atraumatic. No conjunctival congestion or icterus. Patient has moist mucous membranes. NECK: Supple. Trachea midline. ET tube in place CHEST/LUNGS: Coarse breath sounds auscultated bilaterally, on mechanical ventilation HEART/CARDIOVASCULAR: Regular in rate and rhythm. S1 and S2 positive. ABDOMEN: Abdomen is soft, nontender. Patient has normal bowel sounds. SKIN: There is no rash. Warm and dry. NEURO: Sedated. MUSCULOSKELETAL: No joint effusion or tenderness. EXTRIMITY: No edema, no cyanosis or clubbing. PSYCH: Unable to assess. - Constitutional Vitals: Vital Signs - 12hr 10/07/16 10/07/16 10/07/16 01:41 01:51 02:00 Temperature Pulse Rate 121 H 120 H 106 H Pulse Rate [ Anterior Bilateral Throughout] Pulse Rate [ From Monitor] Respiratory 15 23 19 Rate Respiratory Rate [Anterior Bilateral Throughout] Blood Pressure 154/83 154/83 154/74 O2 Sat by Pulse 94 95 91 Oximetry 10/07/16 10/07/16 10/07/16 02:11 02:21 02:30 Temperature Pulse Rate 115 H 117 H 114 H Pulse Rate [ Anterior Bilateral Throughout] Pulse Rate [ From Monitor] Respiratory 14 13 21 Rate Respiratory Rate [Anterior Bilateral Throughout] Blood Pressure 154/74 154/74 160/71 O2 Sat by Pulse 95 95 97 Oximetry 10/07/16 10/07/16 10/07/16 02:34 02:39 02:41 Temperature Pulse Rate 98 H Pulse Rate [ 118 H 117 H Anterior Bilateral Throughout] Pulse Rate [ From Monitor] Respiratory 17 Rate Respiratory 29 H 235 H Rate [Anterior Bilateral Throughout] Blood Pressure 160/71 O2 Sat by Pulse 94 Oximetry 10/07/16 10/07/16 10/07/16 02:51 03:00 03:11 Temperature Pulse Rate 122 H 109 H 121 H Pulse Rate [ Anterior Bilateral Throughout] Pulse Rate [ From Monitor] Respiratory 15 13 13 Rate Respiratory Rate [Anterior Bilateral Throughout] Blood Pressure 160/71 162/77 162/77 O2 Sat by Pulse 95 89 96 Oximetry 10/07/16 10/07/16 10/07/16 03:21 03:31 03:41 Temperature Pulse Rate 110 H 103 H 113 H Pulse Rate [ Anterior Bilateral Throughout] Pulse Rate [ From Monitor] Respiratory 13 14 14 Rate Respiratory Rate [Anterior Bilateral Throughout] Blood Pressure 162/77 150/71 150/71 O2 Sat by Pulse 94 95 95 Oximetry 10/07/16 10/07/16 10/07/16 03:51 04:00 04:10 Temperature Pulse Rate 115 H 117 H 111 H Pulse Rate [ Anterior Bilateral Throughout] Pulse Rate [ 107 H From Monitor] Respiratory 11 L 14 Rate Respiratory Rate [Anterior Bilateral Throughout] Blood Pressure 150/71 140/85 140/5 O2 Sat by Pulse 96 90 96 Oximetry 10/07/16 10/07/16 10/07/16 04:11 04:21 04:30 Temperature Pulse Rate 118 H 121 H 112 H Pulse Rate [ Anterior Bilateral Throughout] Pulse Rate [ From Monitor] Respiratory 16 16 14 Rate Respiratory Rate [Anterior Bilateral Throughout] Blood Pressure 140/85 150/71 159/73 O2 Sat by Pulse 96 95 90 Oximetry 10/07/16 10/07/16 10/07/16 04:41 04:51 05:01 Temperature Pulse Rate 109 H 120 H 113 H Pulse Rate [ Anterior Bilateral Throughout] Pulse Rate [ From Monitor] Respiratory 15 21 15 Rate Respiratory Rate [Anterior Bilateral Throughout] Blood Pressure 159/73 159/73 152/78 O2 Sat by Pulse 94 94 92 Oximetry 10/07/16 10/07/16 10/07/16 05:11 05:21 05:30 Temperature Pulse Rate 116 H 100 H 111 H Pulse Rate [ Anterior Bilateral Throughout] Pulse Rate [ From Monitor] Respiratory 18 13 17 Rate Respiratory Rate [Anterior Bilateral Throughout] Blood Pressure 152/78 152/78 147/79 O2 Sat by Pulse 96 96 91 Oximetry 10/07/16 10/07/16 10/07/16 05:41 05:51 06:00 Temperature Pulse Rate 117 H 119 H 119 H Pulse Rate [ Anterior Bilateral Throughout] Pulse Rate [ From Monitor] Respiratory 12 13 17 Rate Respiratory Rate [Anterior Bilateral Throughout] Blood Pressure 147/79 147/79 155/84 O2 Sat by Pulse 95 96 91 Oximetry 10/07/16 10/07/16 10/07/16 06:11 06:21 06:30 Temperature Pulse Rate 105 H 113 H 106 H Pulse Rate [ Anterior Bilateral Throughout] Pulse Rate [ From Monitor] Respiratory 12 15 14 Rate Respiratory Rate [Anterior Bilateral Throughout] Blood Pressure 155/84 155/84 179/77 O2 Sat by Pulse 94 95 90 Oximetry 10/07/16 10/07/16 10/07/16 06:41 06:51 07:00 Temperature Pulse Rate 110 H 112 H 116 H Pulse Rate [ Anterior Bilateral Throughout] Pulse Rate [ From Monitor] Respiratory 11 L 18 15 Rate Respiratory Rate [Anterior Bilateral Throughout] Blood Pressure 179/77 179/77 158/86 O2 Sat by Pulse 93 92 88 Oximetry 10/07/16 10/07/16 10/07/16 07:11 07:20 07:30 Temperature Pulse Rate 119 H 116 H 113 H Pulse Rate [ Anterior Bilateral Throughout] Pulse Rate [ From Monitor] Respiratory 13 13 14 Rate Respiratory Rate [Anterior Bilateral Throughout] Blood Pressure 158/86 158/86 144/84 O2 Sat by Pulse 94 94 85 Oximetry 10/07/16 10/07/16 10/07/16 07:41 07:51 08:00 Temperature 99.1 F Pulse Rate 117 H 110 H 100 H Pulse Rate [ Anterior Bilateral Throughout] Pulse Rate [ From Monitor] Respiratory 15 16 20 Rate Respiratory Rate [Anterior Bilateral Throughout] Blood Pressure 158/86 158/86 141/83 O2 Sat by Pulse 93 92 90 Oximetry 10/07/16 10/07/16 10/07/16 08:11 08:21 08:30 Temperature Pulse Rate 110 H 98 H 114 H Pulse Rate [ Anterior Bilateral Throughout] Pulse Rate [ From Monitor] Respiratory 13 16 14 Rate Respiratory Rate [Anterior Bilateral Throughout] Blood Pressure 141/83 141/83 153/82 O2 Sat by Pulse 94 93 89 Oximetry 10/07/16 10/07/16 10/07/16 08:41 08:51 09:01 Temperature Pulse Rate 115 H 107 H 103 H Pulse Rate [ Anterior Bilateral Throughout] Pulse Rate [ From Monitor] Respiratory 16 14 21 Rate Respiratory Rate [Anterior Bilateral Throughout] Blood Pressure 153/82 153/82 150/89 O2 Sat by Pulse 93 92 90 Oximetry 10/07/16 10/07/16 10/07/16 09:11 09:21 09:25 Temperature Pulse Rate 94 H 104 H Pulse Rate [ 102 H 73 Anterior Bilateral Throughout] Pulse Rate [ From Monitor] Respiratory 14 15 Rate Respiratory 29 H 33 H Rate [Anterior Bilateral Throughout] Blood Pressure 150/89 150/89 O2 Sat by Pulse 94 87 Oximetry 10/07/16 10/07/16 10/07/16 09:30 09:41 09:51 Temperature Pulse Rate 108 H 104 H 119 H Pulse Rate [ Anterior Bilateral Throughout] Pulse Rate [ From Monitor] Respiratory 20 13 14 Rate Respiratory Rate [Anterior Bilateral Throughout] Blood Pressure 143/91 143/91 143/91 O2 Sat by Pulse 83 L 92 90 Oximetry 10/07/16 10/07/16 10/07/16 10:01 10:11 10:21 Temperature Pulse Rate 106 H 116 H 115 H Pulse Rate [ Anterior Bilateral Throughout] Pulse Rate [ From Monitor] Respiratory 15 19 16 Rate Respiratory Rate [Anterior Bilateral Throughout] Blood Pressure 129/69 129/69 129/69 O2 Sat by Pulse 90 90 90 Oximetry 10/07/16 10/07/16 10/07/16 10:30 10:41 10:51 Temperature Pulse Rate 113 H 112 H 108 H Pulse Rate [ Anterior Bilateral Throughout] Pulse Rate [ From Monitor] Respiratory 18 18 14 Rate Respiratory Rate [Anterior Bilateral Throughout] Blood Pressure 149/88 149/88 149/88 O2 Sat by Pulse 85 91 91 Oximetry 10/07/16 10/07/16 10/07/16 11:00 12:00 12:04 Temperature 100.2 F H Pulse Rate 106 H 109 H Pulse Rate [ Anterior Bilateral Throughout] Pulse Rate [ From Monitor] Respiratory 20 Rate Respiratory Rate [Anterior Bilateral Throughout] Blood Pressure 147/65 176/73 O2 Sat by Pulse 90 92 Oximetry - Labs CBC & Chem 7: 10/07/16 00:55 10/07/16 00:55 Labs: Abnormal lab results 10/06/16 10/06/16 10/06/16 Range/Units 14:31 18:10 21:07 WBC (4.5-11.0) K/mm3 RBC (3.65-5.03) M/mm3 Hgb (10.1-14.3) gm/dl Hct (30.3-42.9) % MCH (28-32) pg RDW (13.2-15.2) % Lymphocytes % (Manual) (13.4-35.0) % Monocytes % (Manual) (0.0-7.3) % Nucleated RBC % (0.0-0.9) % Seg Neutrophils # Man (1.8-7.7) K/mm3 Monocytes # (Manual) (0.0-0.8) K/mm3 Eosinophils # (Manual) (0.0-0.4) K/mm3 POC ABG pH 7.345 L 7.317 L (7.35-7.45) POC ABG pCO2 49.5 H 55.2 H (35-45) POC ABG pO2 60 L 59 L (80-105) Sodium (137-145) mmol/L Chloride (98-107) mmol/L BUN (7-17) mg/dL Creatinine (0.7-1.2) mg/dL Glucose (65-100) mg/dL POC Glucose 196 H (70-105) 10/07/16 10/07/16 10/07/16 Range/Units 00:55 00:55 01:01 WBC 55.1 H* (4.5-11.0) K/mm3 RBC 3.06 L (3.65-5.03) M/mm3 Hgb 7.5 L (10.1-14.3) gm/dl Hct 24.4 L (30.3-42.9) % MCH 24 L (28-32) pg RDW 20.7 H (13.2-15.2) % Lymphocytes % (Manual) 8.0 L (13.4-35.0) % Monocytes % (Manual) 9.0 H (0.0-7.3) % Nucleated RBC % 30.0 H (0.0-0.9) % Seg Neutrophils # Man 27.0 H (1.8-7.7) K/mm3 Monocytes # (Manual) 5.0 H (0.0-0.8) K/mm3 Eosinophils # (Manual) 0.6 H (0.0-0.4) K/mm3 POC ABG pH (7.35-7.45) POC ABG pCO2 (35-45) POC ABG pO2 (80-105) Sodium 148 H (137-145) mmol/L Chloride 110.2 H (98-107) mmol/L BUN 56 H (7-17) mg/dL Creatinine 1.7 H (0.7-1.2) mg/dL Glucose 211 H (65-100) mg/dL POC Glucose 249 H (70-105) 10/07/16 10/07/16 10/07/16 Range/Units 05:20 06:31 12:00 WBC (4.5-11.0) K/mm3 RBC (3.65-5.03) M/mm3 Hgb (10.1-14.3) gm/dl Hct (30.3-42.9) % MCH (28-32) pg RDW (13.2-15.2) % Lymphocytes % (Manual) (13.4-35.0) % Monocytes % (Manual) (0.0-7.3) % Nucleated RBC % (0.0-0.9) % Seg Neutrophils # Man (1.8-7.7) K/mm3 Monocytes # (Manual) (0.0-0.8) K/mm3 Eosinophils # (Manual) (0.0-0.4) K/mm3 POC ABG pH 7.310 L (7.35-7.45) POC ABG pCO2 55.6 H (35-45) POC ABG pO2 65 L (80-105) Sodium (137-145) mmol/L Chloride (98-107) mmol/L BUN (7-17) mg/dL Creatinine (0.7-1.2) mg/dL Glucose (65-100) mg/dL POC Glucose 235 H 210 H (70-105)
--- NOTE | 2016-10-07 17:25 | Event Note ---
Date: 10/07/16 She is status post total hip arthroplasty, with postoperative acute respiratory distress syndrome, renal failure being treated by pulmonary, nephrology and internal medicine. Surgical incision is healed well, no clinical evidence of DVT. We'll remove berta, see her on when necessary basis. At this point have problems are primarily pulmonary, renal and medical, continue treatment as per the appropriate specialists. Orthopedic standpoint she could be allowed to sit in bed, out of bed when she is medically stable enough, weightbearing as tolerated, avoid flexion adduction , internal rotation. Transfer care to pulmonary/nephrology/internal medicine.
[2016-10-07] MEDS: TYLENOL PO PRN (18:13)
--- NOTE | 2016-10-07 19:45 | Progress Note ---
Assessment and Plan - Patient Problems (1) Sepsis Current Visit: Yes Status: Acute Qualifiers: Sepsis type: sepsis due to unspecified organism Qualified Code(s): A41.9 - Sepsis, unspecified organism Plan to address problem: Unclear reason for WBC elevation. Concerned for subclinical Cdiff vs. hematologic issue. Will add IV Flagyl and keep enteral Flagyl. If no new culture results, will narrow or discontinue broad antimicrobials tomorrow. Assessing clinically. (2) Acute respiratory failure with hypoxia Current Visit: Yes Status: Acute Plan to address problem: Per above. (3) Acute renal failure due to tubular necrosis Current Visit: Yes Status: Acute Plan to address problem: Meds renally adjusted. Subjective Date of service: 10/07/16 Principal diagnosis: Acute Hypoxemic Respiratory Failure; ARDS Interval history: Markedly elevated and increasing WBC count without an apparent localizing source. Intermittent, low-grade fevers. Objective - Constitutional Vitals: Vital Signs Temp Pulse Resp BP Pulse Ox 100.6 F H 99 H 13 160/70 94 10/07/16 16:00 10/07/16 18:11 10/07/16 18:11 10/07/16 18:11 10/07/16 18:11 Temperature -Last 24 Hours Temperature 100.6 F Temperature 100.2 F Temperature 99.1 F Temperature 100.4 F General appearance: Present: well-nourished, other (intubated, family at bedside ) - EENT Eyes: exopthalmos - Respiratory Respiratory effort: accessory muscle use Respiratory: bilateral: CTA, negative: rales, rhonchi - Cardiovascular Rhythm: regular (tachycardic) Heart Sounds: Present: S1 & S2 Extremities: No edema Extremity abnormal: other (stapled incision at left hip without surrounding inflammation) - Gastrointestinal General gastrointestinal: Present: soft, non-distended, hypoactive bowel sounds - Genitourinary Female genitourinary: other (Montes with yellow urine) - Integumentary Integumentary: no jaundice, no rash - Labs CBC & Chem 7: 10/07/16 00:55 10/07/16 00:55 Labs: Abnormal lab results 10/06/16 10/07/16 10/07/16 Range/Units 21:07 00:55 00:55 WBC 55.1 H* (4.5-11.0) K/mm3 RBC 3.06 L (3.65-5.03) M/mm3 Hgb 7.5 L (10.1-14.3) gm/dl Hct 24.4 L (30.3-42.9) % MCH 24 L (28-32) pg RDW 20.7 H (13.2-15.2) % Lymphocytes % (Manual) 8.0 L (13.4-35.0) % Monocytes % (Manual) 9.0 H (0.0-7.3) % Nucleated RBC % 30.0 H (0.0-0.9) % Seg Neutrophils # Man 27.0 H (1.8-7.7) K/mm3 Monocytes # (Manual) 5.0 H (0.0-0.8) K/mm3 Eosinophils # (Manual) 0.6 H (0.0-0.4) K/mm3 POC ABG pH 7.317 L (7.35-7.45) POC ABG pCO2 55.2 H (35-45) POC ABG pO2 59 L (80-105) Sodium 148 H (137-145) mmol/L Chloride 110.2 H (98-107) mmol/L BUN 56 H (7-17) mg/dL Creatinine 1.7 H (0.7-1.2) mg/dL Glucose 211 H (65-100) mg/dL POC Glucose (70-105) 10/07/16 10/07/16 10/07/16 Range/Units 01:01 05:20 06:31 WBC (4.5-11.0) K/mm3 RBC (3.65-5.03) M/mm3 Hgb (10.1-14.3) gm/dl Hct (30.3-42.9) % MCH (28-32) pg RDW (13.2-15.2) % Lymphocytes % (Manual) (13.4-35.0) % Monocytes % (Manual) (0.0-7.3) % Nucleated RBC % (0.0-0.9) % Seg Neutrophils # Man (1.8-7.7) K/mm3 Monocytes # (Manual) (0.0-0.8) K/mm3 Eosinophils # (Manual) (0.0-0.4) K/mm3 POC ABG pH 7.310 L (7.35-7.45) POC ABG pCO2 55.6 H (35-45) POC ABG pO2 65 L (80-105) Sodium (137-145) mmol/L Chloride (98-107) mmol/L BUN (7-17) mg/dL Creatinine (0.7-1.2) mg/dL Glucose (65-100) mg/dL POC Glucose 249 H 235 H (70-105) 10/07/16 10/07/16 Range/Units 12:00 18:04 WBC (4.5-11.0) K/mm3 RBC (3.65-5.03) M/mm3 Hgb (10.1-14.3) gm/dl Hct (30.3-42.9) % MCH (28-32) pg RDW (13.2-15.2) % Lymphocytes % (Manual) (13.4-35.0) % Monocytes % (Manual) (0.0-7.3) % Nucleated RBC % (0.0-0.9) % Seg Neutrophils # Man (1.8-7.7) K/mm3 Monocytes # (Manual) (0.0-0.8) K/mm3 Eosinophils # (Manual) (0.0-0.4) K/mm3 POC ABG pH (7.35-7.45) POC ABG pCO2 (35-45) POC ABG pO2 (80-105) Sodium (137-145) mmol/L Chloride (98-107) mmol/L BUN (7-17) mg/dL Creatinine (0.7-1.2) mg/dL Glucose (65-100) mg/dL POC Glucose 210 H 201 H (70-105) Microbiology 10/03/16 09:20 Peripheral/Venous Blood Culture - Preliminary NO GROWTH AFTER 4 DAYS 10/03/16 09:30 Picc Blood Culture - Preliminary NO GROWTH AFTER 4 DAYS 10/03/16 09:06 Urine,Catheterized - Indwelling Catheter Urine Culture - Final 09/27/16 22:47 Peripheral/Venous Blood Culture - Final NO GROWTH AFTER 5 DAYS 09/27/16 22:47 Peripheral/Venous Blood Culture - Final NO GROWTH AFTER 5 DAYS 09/27/16 15:06 Peripheral/Venous Blood Culture - Final NO GROWTH AFTER 5 DAYS 09/27/16 14:40 Peripheral/Venous Blood Culture - Final NO GROWTH AFTER 5 DAYS 09/30/16 Unknown Tracheal Aspirate Sputum Culture - Final Active Medications Acetaminophen (Tylenol) 650 mg PO Q4H PRN PRN Reason: Pain MILD(1-3)/Fever >100.5/PALACIOS Last Admin: 10/07/16 18:13 Dose: 650 mg Albuterol/Ipratropium (Duoneb 0.5 Mg-3 Mg/3 Ml Soln) 1 ampul [facility]H Q6HRT [facility] Last Admin: 10/07/16 15:18 Dose: Not Given Lipase/Protease/Amylase (Pancreaze Dr 10,500 Unit) 1 each FEEDTUBE PRN PRN PRN Reason: For Clogged Feeding Tube Arformoterol Tartrate (Brovana Nebu) 15 mcg IH Q12HRT [facility] Last Admin: 10/07/16 09:15 Dose: 15 mcg Aspirin (Aspirin) 325 mg PO QDAY [facility] Last Admin: 10/07/16 09:58 Dose: 325 mg Budesonide (Pulmicort) 0.5 mg IH Q12HRT [facility] Last Admin: 10/07/16 09:15 Dose: 0.5 mg Diphenhydramine HCl (Benadryl) 12.5 mg IV Q4H PRN PRN Reason: Itching Last Admin: 09/30/16 07:02 Dose: 12.5 mg Enoxaparin Sodium (Lovenox) 40 mg SUB-Q QDAY [facility] Last Admin: 10/07/16 09:58 Dose: 40 mg Famotidine (Pepcid) 20 mg PO BID [facility] Last Admin: 10/07/16 09:58 Dose: 20 mg Folic Acid (Folvite) 1 mg PO QDAY [facility] Last Admin: 10/07/16 09:57 Dose: 1 mg Furosemide (Lasix) 40 mg IV QDAY [facility] Last Admin: 10/07/16 09:57 Dose: 40 mg Hydrophilic Ointment (Vaseline Lip Therapy) 1 applic TP Q2HR PRN PRN Reason: Dry Lips Fentanyl Citrate (Fentanyl Drip Premix) 2,000 mcg in 100 mls @ 4.649 mls/hr IV TITR SADAF; 1 MCG/KG/HR PRN Reason: Protocol Last Titration: 10/07/16 18:00 Dose: 2 mcg/kg/hr, 9.299 mls/hr Propofol (Diprivan 10 Mg/Ml) 1,000 mg in 100 mls @ 2.79 mls/hr IV TITR SADAF; 5 MCG/KG/MIN PRN Reason: Protocol Last Titration: 10/07/16 14:05 Dose: 10 mcg/kg/min, 5.579 mls/hr Midazolam HCl 100 mg/ Sodium (Chloride) 100 mls @ 2 mls/hr IV TITR SADAF; 2 MG/HR PRN Reason: Protocol Last Admin: 10/04/16 12:54 Dose: 2 mg/hr, 2 mls/hr Cefepime HCl (Maxipime/Ns 2 Gm/100 Ml) 2 gm in 100 mls @ 200 mls/hr IV Q12HR SADAF PRN Reason: Protocol Last Admin: 10/07/16 09:56 Dose: 200 mls/hr Insulin Human Regular (Novolin R) 0 units SUB-Q Q6HR SADAF PRN Reason: Protocol Last Admin: 10/07/16 18:12 Dose: 2 units Metronidazole (Flagyl) 500 mg FEEDTUBE Q8HR [facility] Last Admin: 10/07/16 14:05 Dose: 500 mg Multi-Ingred Cream/Lotion/Oil/Oint (Artificial Tears Ophth Oint) 1 applic OU Q4HR PRN PRN Reason: Dry Eye(s) Multivitamins (Theragran Tab) 1 each PO QDAY [facility] Last Admin: 10/07/16 09:59 Dose: 1 each Ondansetron HCl (Zofran) 4 mg IV Q8H PRN PRN Reason: Nausea And Vomiting Last Admin: 09/29/16 23:07 Dose: 4 mg Promethazine HCl (Phenergan) 25 mg CO Q6H PRN PRN Reason: Nausea And Vomiting Last Admin: 09/25/16 22:05 Dose: 25 mg Senna (Senokot) 17.2 mg PO DAILY [facility] Last Admin: 10/07/16 09:57 Dose: 17.2 mg Simple Syrup (Simple Syrup) 15 ml FEEDTUBE PRN PRN PRN Reason: Hypoglycemia Simple Syrup (Simple Syrup) 30 ml FEEDTUBE PRN PRN PRN Reason: Hypoglycemia Sodium Bicarbonate (Sodium Bicarbonate) 325 mg FEEDTUBE PRN PRN PRN Reason: For Clogged Feeding Tube Sodium Chloride (Sodium Chloride Flush Syringe 10 Ml) 10 ml IV PRN PRN PRN Reason: LINE FLUSH Tramadol HCl (Ultram) 50 mg PO Q4H PRN PRN Reason: Pain, Moderate (4-6) Last Admin: 10/06/16 21:54 Dose: 50 mg Valacyclovir HCl (Valtrex) 500 mg PO DAILY SADAF Last Admin: 10/07/16 09:58 Dose: 500 mg Vancomycin HCl (Vancomycin Pharmacy To Dose) 1 each IV PKCONSULT SADAF PRN Reason: Protocol Zolpidem Tartrate (Ambien) 5 mg PO QHS PRN PRN Reason: Sleep - Imaging and cardiology Chest x-ray: report reviewed (further improvement in bilateral infiltrates vs. pulmonary edema)
[2016-10-07] MEDS: FLAGYL 500 MG/100 ML 500 MG/100 ML BAG IV SCH (21:48)
--- NOTE | 2016-10-07 23:41 | Consultation ---
History of Present Illness - Reason for Consult Consult date: 10/07/16 - History of Present Illness Patient seen/examined. I have discussed this case with the primary team, and the family, Things still look grim at this point.I will check flow cytometry given persistent WBc, and no real sign of infection. Past History Past Medical History: anemia (sickle cell anemia) Social history: no significant social history Family history: no significant family history Medications and Allergies Allergies Allergy/AdvReac Type Severity Reaction Status Date / Time No Known Allergies Allergy Unverified 10/13/13 13:21 Home Medications Medication Instructions Recorded Confirmed Last Taken Type Folic Acid [Folvite] 1 mg PO QDAY 10/13/13 09/18/16 09/18/16 History oxyCODONE /ACETAMINOPHEN [Percocet 1 tab PO Q6HR PRN #10 tablet 10/13/1309/18/16 Rx 5/325 mg] Promethazine [Phenergan] 25 mg PO Q6H PRN 08/16/14 09/18/16 09/18/16 History valACYclovir [Valtrex] 500 mg PO DAILY 08/16/14 09/18/16 09/18/16 History Active Meds: Active Medications Acetaminophen (Tylenol) 650 mg PO Q4H PRN PRN Reason: Pain MILD(1-3)/Fever >100.5/PALACIOS Last Admin: 10/07/16 18:13 Dose: 650 mg Albuterol/Ipratropium (Duoneb 0.5 Mg-3 Mg/3 Ml Soln) 1 ampul IH Q6HRT [facility] Last Admin: 10/07/16 20:53 Dose: 1 ampul Lipase/Protease/Amylase (Pancreaze Dr 10,500 Unit) 1 each FEEDTUBE PRN PRN PRN Reason: For Clogged Feeding Tube Arformoterol Tartrate (Brovana Nebu) 15 mcg IH Q12HRT [facility] Last Admin: 10/07/16 20:52 Dose: 15 mcg Aspirin (Aspirin) 325 mg PO QDAY [facility] Last Admin: 10/07/16 09:58 Dose: 325 mg Budesonide (Pulmicort) 0.5 mg IH Q12HRT [facility] Last Admin: 10/07/16 20:53 Dose: 0.5 mg Diphenhydramine HCl (Benadryl) 12.5 mg IV Q4H PRN PRN Reason: Itching Last Admin: 09/30/16 07:02 Dose: 12.5 mg Enoxaparin Sodium (Lovenox) 40 mg SUB-Q QDAY [facility] Last Admin: 10/07/16 09:58 Dose: 40 mg Famotidine (Pepcid) 20 mg PO BID [facility] Last Admin: 10/07/16 21:48 Dose: 20 mg Folic Acid (Folvite) 1 mg PO QDAY [facility] Last Admin: 10/07/16 09:57 Dose: 1 mg Furosemide (Lasix) 40 mg IV QDAY [facility] Last Admin: 10/07/16 09:57 Dose: 40 mg Hydrophilic Ointment (Vaseline Lip Therapy) 1 applic TP Q2HR PRN PRN Reason: Dry Lips Fentanyl Citrate (Fentanyl Drip Premix) 2,000 mcg in 100 mls @ 4.649 mls/hr IV TITR SADAF; 1 MCG/KG/HR PRN Reason: Protocol Last Titration: 10/07/16 18:00 Dose: 2 mcg/kg/hr, 9.299 mls/hr Propofol (Diprivan 10 Mg/Ml) 1,000 mg in 100 mls @ 2.79 mls/hr IV TITR SADAF; 5 MCG/KG/MIN PRN Reason: Protocol Last Titration: 10/07/16 14:05 Dose: 10 mcg/kg/min, 5.579 mls/hr Midazolam HCl 100 mg/ Sodium (Chloride) 100 mls @ 2 mls/hr IV TITR SADAF; 2 MG/HR PRN Reason: Protocol Last Admin: 10/04/16 12:54 Dose: 2 mg/hr, 2 mls/hr Cefepime HCl (Maxipime/Ns 2 Gm/100 Ml) 2 gm in 100 mls @ 200 mls/hr IV Q12HR SADAF PRN Reason: Protocol Last Admin: 10/07/16 21:49 Dose: 200 mls/hr Metronidazole (Flagyl 500 Mg/100 Ml) 500 mg in 100 mls @ 100 mls/hr IV Q8HR [facility] Last Admin: 10/07/16 21:48 Dose: 100 mls/hr Insulin Human Regular (Novolin R) 0 units SUB-Q Q6HR SADAF PRN Reason: Protocol Last Admin: 10/07/16 18:12 Dose: 2 units Multi-Ingred Cream/Lotion/Oil/Oint (Artificial Tears Ophth Oint) 1 applic OU Q4HR PRN PRN Reason: Dry Eye(s) Multivitamins (Theragran Tab) 1 each PO QDAY [facility] Last Admin: 10/07/16 09:59 Dose: 1 each Ondansetron HCl (Zofran) 4 mg IV Q8H PRN PRN Reason: Nausea And Vomiting Last Admin: 09/29/16 23:07 Dose: 4 mg Promethazine HCl (Phenergan) 25 mg [place] Q6H PRN PRN Reason: Nausea And Vomiting Last Admin: 09/25/16 22:05 Dose: 25 mg Senna (Senokot) 17.2 mg PO DAILY [facility] Last Admin: 10/07/16 09:57 Dose: 17.2 mg Simple Syrup (Simple Syrup) 15 ml FEEDTUBE PRN PRN PRN Reason: Hypoglycemia Simple Syrup (Simple Syrup) 30 ml FEEDTUBE PRN PRN PRN Reason: Hypoglycemia Sodium Bicarbonate (Sodium Bicarbonate) 325 mg FEEDTUBE PRN PRN PRN Reason: For Clogged Feeding Tube Sodium Chloride (Sodium Chloride Flush Syringe 10 Ml) 10 ml IV PRN PRN PRN Reason: LINE FLUSH Tramadol HCl (Ultram) 50 mg PO Q4H PRN PRN Reason: Pain, Moderate (4-6) Last Admin: 10/06/16 21:54 Dose: 50 mg Valacyclovir HCl (Valtrex) 500 mg PO DAILY [facility] Last Admin: 10/07/16 09:58 Dose: 500 mg Vancomycin HCl (Vancomycin Pharmacy To Dose) 1 each IV PKCONSULT [facility] PRN Reason: Protocol Zolpidem Tartrate (Ambien) 5 mg PO QHS PRN PRN Reason: Sleep Review of Systems Constitutional: other (still intubated.) Breasts: deferred Exam - Constitutional Vitals: Temp Pulse Resp BP Pulse Ox 99.8 F H 91 H 22 143/68 95 10/07/16 19:46 10/07/16 21:15 10/07/16 21:15 10/07/16 20:53 10/07/16 20:53 General appearance: Present: severe distress - EENT Eyes: Present: PERRL ENT: hearing intact, clear oral mucosa - Neck Neck: Present: supple, normal ROM - Respiratory Respiratory: bilateral: other (on the vent.) - Cardiovascular Heart Sounds: Present: S1 & S2. Absent: rub, click - Extremities Extremities: pulses symmetrical, No edema Peripheral Pulses: within normal limits - Abdominal General gastrointestinal: Present: soft, non-tender, non-distended, normal bowel sounds Female genitourinary: Present: deferred - Rectal Rectal Exam: deferred - Integumentary Integumentary: Present: clear, warm, dry - Musculoskeletal Musculoskeletal: gait normal, strength equal bilaterally - Psychiatric Psychiatric: appropriate mood/affect, intact judgment & insight - Neurologic Neurologic: CNII-XII intact, moves all extremities Results - Labs CBC & Chem 7: 10/07/16 00:55 10/07/16 00:55 Labs: Abnormal lab results 10/07/16 10/07/16 10/07/16 Range/Units 00:55 00:55 01:01 WBC 55.1 H* (4.5-11.0) K/mm3 RBC 3.06 L (3.65-5.03) M/mm3 Hgb 7.5 L (10.1-14.3) gm/dl Hct 24.4 L (30.3-42.9) % MCH 24 L (28-32) pg RDW 20.7 H (13.2-15.2) % Lymphocytes % (Manual) 8.0 L (13.4-35.0) % Monocytes % (Manual) 9.0 H (0.0-7.3) % Nucleated RBC % 30.0 H (0.0-0.9) % Seg Neutrophils # Man 27.0 H (1.8-7.7) K/mm3 Monocytes # (Manual) 5.0 H (0.0-0.8) K/mm3 Eosinophils # (Manual) 0.6 H (0.0-0.4) K/mm3 POC ABG pH (7.35-7.45) POC ABG pCO2 (35-45) POC ABG pO2 (80-105) Sodium 148 H (137-145) mmol/L Chloride 110.2 H (98-107) mmol/L BUN 56 H (7-17) mg/dL Creatinine 1.7 H (0.7-1.2) mg/dL Glucose 211 H (65-100) mg/dL POC Glucose 249 H (70-105) 10/07/16 10/07/16 10/07/16 Range/Units 05:20 06:31 12:00 WBC (4.5-11.0) K/mm3 RBC (3.65-5.03) M/mm3 Hgb (10.1-14.3) gm/dl Hct (30.3-42.9) % MCH (28-32) pg RDW (13.2-15.2) % Lymphocytes % (Manual) (13.4-35.0) % Monocytes % (Manual) (0.0-7.3) % Nucleated RBC % (0.0-0.9) % Seg Neutrophils # Man (1.8-7.7) K/mm3 Monocytes # (Manual) (0.0-0.8) K/mm3 Eosinophils # (Manual) (0.0-0.4) K/mm3 POC ABG pH 7.310 L (7.35-7.45) POC ABG pCO2 55.6 H (35-45) POC ABG pO2 65 L (80-105) Sodium (137-145) mmol/L Chloride (98-107) mmol/L BUN (7-17) mg/dL Creatinine (0.7-1.2) mg/dL Glucose (65-100) mg/dL POC Glucose 235 H 210 H (70-105) 10/07/16 Range/Units 18:04 WBC (4.5-11.0) K/mm3 RBC (3.65-5.03) M/mm3 Hgb (10.1-14.3) gm/dl Hct (30.3-42.9) % MCH (28-32) pg RDW (13.2-15.2) % Lymphocytes % (Manual) (13.4-35.0) % Monocytes % (Manual) (0.0-7.3) % Nucleated RBC % (0.0-0.9) % Seg Neutrophils # Man (1.8-7.7) K/mm3 Monocytes # (Manual) (0.0-0.8) K/mm3 Eosinophils # (Manual) (0.0-0.4) K/mm3 POC ABG pH (7.35-7.45) POC ABG pCO2 (35-45) POC ABG pO2 (80-105) Sodium (137-145) mmol/L Chloride (98-107) mmol/L BUN (7-17) mg/dL Creatinine (0.7-1.2) mg/dL Glucose (65-100) mg/dL POC Glucose 201 H (70-105) Assessment and Plan - Patient Problems (1) Arthritis of left hip Current Visit: Yes Status: Deleted Plan to address problem: Follow post surgical management. (2) Avascular necrosis of bone of left hip Current Visit: Yes Status: Deleted Plan to address problem: Post surgical pain management., post surgical anticoagulation. continue same. (3) Sepsis Current Visit: Yes Status: Acute Qualifiers: Sepsis type: sepsis due to unspecified organism Qualified Code(s): A41.9 - Sepsis, unspecified organism Plan to address problem: SEE w/up in the notes. No improvement so far. worsening sepsis. (4) Sleep apnea syndrome Current Visit: Yes Status: Acute Qualifiers: Sleep apnea type: S Plan to address problem: oxygen/BIPAP management. Patient now in full resp failure, and on the vent. (5) UTI (urinary tract infection) Current Visit: Yes Status: Acute Qualifiers: Urinary tract infection type: U Hematuria presence: H Indwelling urinary catheter type: I Encounter type: E Plan to address problem: patient already on abx iv. may need culture sent. culture no growth. (6) Anemia Current Visit: Yes Status: Acute Qualifiers: Anemia type: A Iron deficiency anemia type: I Vitamin B12 deficiency anemia type: V Folate deficiency anemia type: F Bone marrow failure anemia type: B Hemolytic anemia type: H Other causes of anemia: O Plan to address problem: will transfuse if hgb 7.5 or less. no new issues at this time. May transfuse if further drop. (7) Leukocytosis Current Visit: Yes Status: Acute Qualifiers: Leukocytosis type: L Plan to address problem: will order flow, and try leukophoresis.
[2016-10-08] MEDS: fentaNYL DRIP Premix 2,000 MCG/100 ML BAG IV SCH ×3 (00:16→17:30)
[2016-10-08] MEDS: DIPRIVAN 10 MG/ML 1,000 MG/100 ML BOTTLE IV SCH ×3 (02:01→18:26)
[2016-10-08] MEDS: DUONEB 0.5 MG-3 MG/3 ML SOLN IH SCH ×4 (02:13→21:37)
[2016-10-08 04:38] LABS: Hematocrit 23.4 % (30.3-42.9); Hemoglobin 7.3 gm/dl (10.1-14.3); Mean Corpuscular HGB Conc 31 % (30-34); Mean Corpuscular Volume 80 fl (79-97); Platelet Count 407 K/mm3 (140-440); Red Blood Count 2.95 M/mm3 (3.65-5.03)
[2016-10-08 04:40] LABS: Mean Corpuscular Hemoglobin 25 pg (28-32); Red Cell Distribution Width 20.8 % (13.2-15.2)
[2016-10-08 04:55] LABS: BUN/Creatinine Ratio 36.87; Calcium 9.3 mg/dL (8.4-10.2); Chloride 111.4 mmol/L (98-107); Potassium 3.7 mmol/L (3.6-5.0)
[2016-10-08 05:13] LABS: ISTAT Base Excess 3; ISTAT HCO3 27.6; ISTAT PCO2 41.5 (35-45); ISTAT PO2 65 (80-105); ISTAT SO2 93; ISTAT TCO2 29
[2016-10-08] MEDS: FLAGYL 500 MG/100 ML 500 MG/100 ML BAG IV SCH ×3 (05:20→21:17)
[2016-10-08 05:58] LABS: Anisocytosis 2+; Blastocytes % (Manual) 0 %; Diff Status Complete; Hypochromasia 2+; Platelet Estimate Consistent w Auto; Polychromasia 1+; Schistocytes Rare; Target Cells 1+
--- NOTE | 2016-10-08 08:40 | Progress Note ---
Assessment and Plan Assessment and plan: The patient is a 41-year-old female with a history of sickle cell disease who was admitted for total hip arthroplasty for avascular necrosis of the left hip. She had left total hip arthroplasty on 09/25/2016 and developed acute hypoxemic respiratory failure following the POD 2 likely from ARDS and ultimately required intubation on 09/27/2016. Her hemoglobin level dropped from 8.1-6.9 on 09/30/2016, also noted to have hypokalemia with potassium level 3.1. Hospitalist service consulted for medical management. Patient remained in a I intubated with mechanical ventilation. Her white count continued to trend up. Maintained on sepsis protocol, CT scan of abdomen and pelvis and thorax done without contrast to identify the source for infection. CT scan of the chest was suggestive for possible pneumonia. She is currently on broad- spectrum antibiotics, critically ill with poor prognosis. Acute respiratory failure - likely due to ARDS with PNA, intubated on 09/27/16 - on mechanical ventilation with 50% FiO2 today - pulmonary following, cont nebulizer, vent support, antibiotics - wean off as tolerated Severe anemia - History of thalassemia major - transfused 1 unit PRBC on 10/01 - monitor h and H - hematology following Avscular necrosis of the left hip - s/p total left hip arthoplasty on 09/25/16 Hypokalemia -Status post replacement, continue to replete as needed Sepsis syndrome - Likely from pneumonia - Spiking temp intermittently, wbc count continue to increased Patient has completed a 7 day course of antibiotics for treatment of sepsis/ pneumonia, question need for further antibiotics, infectious disease consulted Hypernatremia -Continue free water via gastric tube CARLYN - likely from sepsis syndrome - monitor renal function - nephrology following, diuretic doses have been reduced Leukocytosis Most likely leukemoid reaction, hematology input appreciated, flow cytometry has been ordered by the metal lather Critical care time 32 minutes History Interval history: patient remains intubated, sedated, failed weaning trials but o2 requirement is reduced Hospitalist Physical - Physical exam Narrative exam: General: Intubated sedated HEENT: MMM, EOMI cardiac: S1-S2 heard lungs: Rhonchorous ventilated breath sounds abdomen: soft, nontender, nondistended bowel sounds positive extremities: no edema clubbing or cyanosis Skin: no rash or lesion Neuro: Intubated sedated - Constitutional Vitals: Temp Pulse Resp BP Pulse Ox 99.3 F 79 13 116/60 94 10/08/16 08:00 10/08/16 06:11 10/08/16 06:11 10/08/16 06:11 10/08/16 06:11 General appearance: Present: severe distress Results - Labs CBC & Chem 7: 10/09/16 07:40 10/09/16 07:40 Labs: Laboratory Last Values WBC 58.0 K/mm3 (4.5-11.0) H* 10/08/16 04:00 RBC 2.95 M/mm3 (3.65-5.03) L 10/08/16 04:00 Hgb 7.3 gm/dl (10.1-14.3) L 10/08/16 04:00 Hct 23.4 % (30.3-42.9) L 10/08/16 04:00 MCV 80 fl (79-97) 10/08/16 04:00 MCH 25 pg (28-32) L 10/08/16 04:00 MCHC 31 % (30-34) 10/08/16 04:00 RDW 20.8 % (13.2-15.2) H 10/08/16 04:00 Plt Count 407 K/mm3 (140-440) 10/08/16 04:00 Lymph % (Auto) 33.3 % (13.4-35.0) 09/20/16 10:35 [place] % (Auto) 5.8 % (0.0-7.3) 09/20/16 10:35 Eos % (Auto) 2.5 % (0.0-4.3) 09/20/16 10:35 Baso % (Auto) 0.7 % (0.0-1.8) 09/20/16 10:35 Lymph # Supervisor Machine Setter 10/08/16 04:00 [place] # 0.7 K/mm3 (0.0-0.8) 09/20/16 10:35 Eos # 0.3 K/mm3 (0.0-0.4) 09/20/16 10:35 Baso # 0.1 K/mm3 (0.0-0.1) 09/20/16 10:35 Add Manual Diff Complete 10/08/16 04:00 Total Counted 100 10/08/16 04:00 Seg Neutrophils % 57.7 % (40.0-70.0) 09/20/16 10:35 Seg Neuts % (Manual) 75.0 % (40.0-70.0) H 10/08/16 04:00 Band Neutrophils % 5.0 % 10/08/16 04:00 Lymphocytes % (Manual) 11.0 % (13.4-35.0) L 10/08/16 04:00 Reactive Lymphs % (Man) 0 % 10/08/16 04:00 Monocytes % (Manual) 8.0 % (0.0-7.3) H 10/08/16 04:00 Eosinophils % (Manual) 1.0 % (0.0-4.3) 10/08/16 04:00 Basophils % (Manual) 0 % (0.0-1.8) 10/07/16 00:55 Metamyelocytes % 0 % 10/08/16 04:00 Myelocytes % 0 % 10/08/16 04:00 Promyelocytes % 0 % 10/08/16 04:00 Blast Cells % 0 % 10/08/16 04:00 Nucleated RBC % 30.0 % (0.0-0.9) H 10/08/16 04:00 Seg Neutrophils # 6.7 K/mm3 (1.8-7.7) 09/20/16 10:35 Seg Neutrophils # Man 43.5 K/mm3 (1.8-7.7) H 10/08/16 04:00 Band Neutrophils # 2.9 K/mm3 10/08/16 04:00 Lymphocytes # (Manual) 6.4 K/mm3 (1.2-5.4) H 10/08/16 04:00 Abs React Lymphs (Man) 0.0 K/mm3 10/08/16 04:00 Monocytes # (Manual) 4.6 K/mm3 (0.0-0.8) H 10/08/16 04:00 Eosinophils # (Manual) 0.6 K/mm3 (0.0-0.4) H 10/08/16 04:00 Basophils # (Manual) 0.0 K/mm3 (0.0-0.1) 10/08/16 04:00 Metamyelocytes # 0.0 K/mm3 10/08/16 04:00 Myelocytes # 0.0 K/mm3 10/08/16 04:00 Promyelocytes # 0.0 K/mm3 10/08/16 04:00 Blast Cells # 0.0 K/mm3 10/08/16 04:00 WBC Morphology Not Reportable 10/08/16 04:00 Hypersegmented Neuts Not Reportable 10/08/16 04:00 Hyposegmented Neuts Not Reportable 10/08/16 04:00 Hypogranular Neuts Not Reportable 10/08/16 04:00 Smudge Cells Not Reportable 10/08/16 04:00 Toxic Granulation Not Reportable 10/08/16 04:00 Toxic Vacuolation Not Reportable 10/08/16 04:00 Dohle Bodies Not Reportable 10/08/16 04:00 Pelger-Huet Anomaly Not Reportable 10/08/16 04:00 Jaspreet Rods Not Reportable 10/08/16 04:00 Platelet Estimate Consistent w auto 10/08/16 04:00 Clumped Platelets Not Reportable 10/08/16 04:00 Plt Clumps, EDTA Not Reportable 10/08/16 04:00 Large Platelets Not Reportable 10/08/16 04:00 Giant Platelets Not Reportable 10/08/16 04:00 Platelet Satelliting Not Reportable 10/08/16 04:00 Plt Morphology Comment Not Reportable 10/08/16 04:00 RBC Morphology Not Reportable 10/08/16 04:00 Dimorphic RBCs Not Reportable 10/08/16 04:00 Polychromasia 1+ 10/08/16 04:00 Hypochromasia 2+ 10/08/16 04:00 Poikilocytosis Not Reportable 10/08/16 04:00 Anisocytosis 2+ 10/08/16 04:00 Microcytosis Not Reportable 10/08/16 04:00 Macrocytosis Not Reportable 10/08/16 04:00 Spherocytes Not Reportable 10/08/16 04:00 Pappenheimer Bodies Not Reportable 10/08/16 04:00 Sickle Cells Not Reportable 10/08/16 04:00 Target Cells 1+ 10/08/16 04:00 Tear Drop Cells Not Reportable 10/08/16 04:00 Ovalocytes Not Reportable 10/08/16 04:00 Helmet Cells Not Reportable 10/08/16 04:00 [place] Bodies Not Reportable 10/08/16 04:00 [place] Rings Not Reportable 10/08/16 04:00 Mike Cells Not Reportable 10/08/16 04:00 Bite Cells Not Reportable 10/08/16 04:00 Crenated Cell Not Reportable 10/08/16 04:00 Elliptocytes Not Reportable 10/08/16 04:00 Acanthocytes (Spur) Not Reportable 10/08/16 04:00 Rouleaux Not Reportable 10/08/16 04:00 Hemoglobin C Crystals Not Reportable 10/08/16 04:00 Schistocytes Rare 10/08/16 04:00 Malaria parasites Not Reportable 10/08/16 04:00 Percent Retic 8.11 % (0.78-2.58) H 09/27/16 22:47 Jeffrey Bodies Not Reportable 10/08/16 04:00 Hem Pathologist Commnt No 10/08/16 04:00 PT 14.5 Sec. (12.2-14.9) 09/20/16 10:35 INR 1.14 (0.87-1.13) H 09/20/16 10:35 APTT 31.1 Sec. (24.2-36.6) 09/20/16 10:35 D-Dimer 4758.12 ng/mlDDU (0-234) H 09/27/16 22:47 POC ABG pH 7.430 (7.35-7.45) 10/08/16 04:46 POC ABG pCO2 41.5 (35-45) 10/08/16 04:46 POC ABG pO2 65 (80-105) L 10/08/16 04:46 POC ABG HCO3 27.6 10/08/16 04:46 POC ABG Total CO2 29 10/08/16 04:46 POC ABG O2 Sat 93 10/08/16 04:46 POC ABG Base Excess 3 10/08/16 04:46 FiO2 50 % 10/08/16 04:46 Sodium 152 mmol/L (137-145) H 10/08/16 04:00 Potassium 3.7 mmol/L (3.6-5.0) 10/08/16 04:00 Chloride 111.4 mmol/L (98-107) H 10/08/16 04:00 Carbon Dioxide 25 mmol/L (22-30) 10/08/16 04:00 Anion Gap 19 mmol/L 10/08/16 04:00 BUN 59 mg/dL (7-17) H 10/08/16 04:00 Creatinine 1.6 mg/dL (0.7-1.2) H 10/08/16 04:00 Estimated GFR 43 ml/min 10/08/16 04:00 BUN/Creatinine Ratio 36.87 % 10/08/16 04:00 Glucose 190 mg/dL (65-100) H 10/08/16 04:00 POC Glucose 214 (70-105) H 10/08/16 04:10 Osmolality 311 Mosm/kg 10/04/16 04:03 Lactic Acid 1.00 mmol/L (0.7-2.0) 10/05/16 14:00 Calcium 9.3 mg/dL (8.4-10.2) 10/08/16 04:00 Phosphorus 3.60 mg/dL (2.5-4.5) 10/04/16 04:03 Total Bilirubin 1.20 mg/dL (0.1-1.2) 10/04/16 04:03 AST 31 units/L (5-40) 10/04/16 04:03 ALT 33 units/L (7-56) 10/04/16 04:03 Alkaline Phosphatase 100 units/L (35-129) 10/04/16 04:03 Lactate Dehydrogenase 829 units/L (91-180) H 09/27/16 22:47 Total Creatine Kinase 3575 units/L (30-135) H 09/27/16 14:40 CK-MB (CK-2) 11.0 ng/mL (0.0-4.0) H 09/27/16 14:40 CK-MB (CK-2) Rel Index 0.3 (0-4) 09/27/16 14:40 Troponin T < 0.010 ng/mL (0.00-0.029) 09/27/16 14:40 C-Reactive Protein 28.40 mg/dL (0.00-1.30) H 10/05/16 14:00 NT-Pro-B Natriuret Pep 2018 pg/mL (0-450) H 09/30/16 14:05 Total Protein 5.6 g/dL (6.3-8.2) L 10/04/16 04:03 Albumin 2.1 g/dL (3.9-5) L 10/04/16 04:03 Albumin/Globulin Ratio 0.6 % 10/04/16 04:03 Urine Color Yellow (Yellow) 10/03/16 15:54 Urine Turbidity Cloudy (Clear) 10/03/16 15:54 Urine pH 5.0 (5.0-7.0) 10/03/16 15:54 Ur Specific [place] 1.013 (1.003-1.030) 10/03/16 15:54 Urine Protein 30 mg/dl mg/dL (Negative) 10/03/16 15:54 Urine Glucose (UA) Neg mg/dL (Negative) 10/03/16 15:54 Urine Ketones Neg mg/dL (Negative) 10/03/16 15:54 Urine Blood Lg (Negative) 10/03/16 15:54 Urine Nitrite Neg (Negative) 10/03/16 15:54 Urine Bilirubin Neg (Negative) 10/03/16 15:54 Urine Urobilinogen < 2.0 mg/dL (<2.0) 10/03/16 15:54 Ur Leukocyte Esterase Tr (Negative) 10/03/16 15:54 Urine WBC (Auto) 21.0 /HPF (0.0-6.0) H 10/03/16 15:54 Urine RBC (Auto) 65.0 /HPF (0.0-6.0) 10/03/16 15:54 U Epithel Cells (Auto) 2.0 /HPF (0-13.0) 10/03/16 15:54 Urine Bacteria (Auto) 3+ /HPF (Negative) 10/03/16 15:54 Amorphous Crystals 1+ 10/03/16 15:54 Urine Mucus Few /HPF 10/03/16 15:54 Urine Creatinine 63.2 mg/dL (0.1-20.0) H 10/03/16 15:54 Urine Sodium 20 mEq/L 10/03/16 15:54 Urine Total Protein 67 mg/dL (5-11.8) H 10/03/16 15:54 Vancomycin Trough 45.5 ug/mL (5.0-20.0) H 10/04/16 12:39 Random Vancomycin 14.9 ug/mL (0-40.0) 10/07/16 05:25 Blood Type O POSITIVE 05/02/17 00:55 Antibody Screen TNR 10/01/16 00:55 DEACON Antibody Screen Negative 10/01/16 00:55 Crossmatch See Detail 10/01/16 00:55
[2016-10-08] MEDS: LOVENOX SUB-Q SCH (09:28)
[2016-10-08] MEDS: LASIX IV SCH ×2 (09:28→09:58)
[2016-10-08] MEDS ORDERED: LASIX IV ONE ×2 (09:30→14:00)
--- NOTE | 2016-10-08 09:41 | Progress Note ---
Assessment and Plan 1) Avascular necrosis of bone of left hip Current Visit: Yes Status: Chronic Plan to address problem: S/P Athroplasty to left hip on 09/25/16 (2) Acute respiratory failure with hypoxia Current Visit: Yes Status: Acute Plan to address problem: ARDS, On vent support as per pulmonary (3) Acute renal failure due to tubular necrosis Current Visit: Yes Status: Acute Plan to address problem: stable Cr cont lasix 40 mg qday, good UOP Avoid Nephrotoxic agents Renally dose medications Monitor I/O's (4) Sepsis syndrome Current Visit: Yes Status: Acute Plan to address problem: ID on board. on broad spectrum antibiotics, negative cultures (5) Acute hypernatremia Current Visit: Yes Status: Acute Plan to address problem: patient was not receiving water flushes during the night for the last 3 days for unclear reason, discussed with her nurse, she will make sure water flushes will cont throughout the day Subjective Date of service: 10/08/16 Principal diagnosis: Acute Hypoxemic Respiratory Failure; ARDS Interval history: sedated and intubated Objective - Vital Signs Vital signs: Vital Signs - 12hr 10/07/16 10/07/16 10/07/16 21:41 21:51 22:00 Temperature Pulse Rate 96 H 81 87 Pulse Rate [ From Monitor] Respiratory 13 13 13 Rate Blood Pressure 106/48 106/48 99/41 O2 Sat by Pulse 97 96 98 Oximetry 10/07/16 10/07/16 10/07/16 22:11 22:21 22:30 Temperature Pulse Rate 88 86 86 Pulse Rate [ From Monitor] Respiratory 13 13 13 Rate Blood Pressure 99/41 99/41 95/44 O2 Sat by Pulse 98 98 96 Oximetry 10/07/16 10/07/16 10/07/16 22:41 22:51 23:00 Temperature 99.3 F Pulse Rate 88 89 83 Pulse Rate [ From Monitor] Respiratory 13 13 13 Rate Blood Pressure 95/44 95/44 103/45 O2 Sat by Pulse 97 98 99 Oximetry 10/07/16 10/07/16 10/07/16 23:11 23:21 23:30 Temperature Pulse Rate 85 82 85 Pulse Rate [ From Monitor] Respiratory 13 13 13 Rate Blood Pressure 103/45 103/45 106/46 O2 Sat by Pulse 97 98 95 Oximetry 10/07/16 10/07/16 10/08/16 23:40 23:51 00:00 Temperature Pulse Rate 81 62 89 Pulse Rate [ 97 H From Monitor] Respiratory 13 13 13 Rate Blood Pressure 106/46 103/45 140/71 O2 Sat by Pulse 98 94 93 Oximetry 10/08/16 10/08/16 10/08/16 00:11 00:21 00:30 Temperature Pulse Rate 96 H 108 H 109 H Pulse Rate [ From Monitor] Respiratory 13 13 16 Rate Blood Pressure 106/46 106/46 152/71 O2 Sat by Pulse 89 97 85 Oximetry 10/08/16 10/08/16 10/08/16 00:41 00:46 00:51 Temperature Pulse Rate 113 H 103 H 112 H Pulse Rate [ From Monitor] Respiratory 13 14 Rate Blood Pressure 152/71 140/71 152/71 O2 Sat by Pulse 89 90 91 Oximetry 10/08/16 10/08/16 10/08/16 01:00 01:11 01:21 Temperature Pulse Rate 119 H 97 H 120 H Pulse Rate [ From Monitor] Respiratory 16 20 17 Rate Blood Pressure 156/67 156/67 156/67 O2 Sat by Pulse 88 89 91 Oximetry 10/08/16 10/08/16 10/08/16 01:30 01:41 01:51 Temperature Pulse Rate 115 H 106 H 106 H Pulse Rate [ From Monitor] Respiratory 16 13 13 Rate Blood Pressure 130/74 130/74 130/74 O2 Sat by Pulse 89 90 89 Oximetry 10/08/16 10/08/16 10/08/16 02:00 02:11 02:21 Temperature Pulse Rate 94 H 109 H 106 H Pulse Rate [ From Monitor] Respiratory 18 15 13 Rate Blood Pressure 137/59 130/74 130/74 O2 Sat by Pulse 88 84 90 Oximetry 10/08/16 10/08/16 10/08/16 02:31 02:41 02:51 Temperature Pulse Rate 108 H 101 H 97 H Pulse Rate [ From Monitor] Respiratory 13 13 15 Rate Blood Pressure 130/74 137/59 137/59 O2 Sat by Pulse 95 87 Oximetry 10/08/16 10/08/16 10/08/16 03:01 03:11 03:21 Temperature Pulse Rate 86 83 93 H Pulse Rate [ From Monitor] Respiratory 13 13 13 Rate Blood Pressure 145/62 145/62 145/62 O2 Sat by Pulse 89 92 92 Oximetry 0510/08/16 10/08/16 03:30 03:41 03:51 Temperature Pulse Rate 99 H 102 H 98 H Pulse Rate [ From Monitor] Respiratory 14 13 13 Rate Blood Pressure 142/68 142/68 142/68 O2 Sat by Pulse 91 93 92 Oximetry 10/08/16 10/08/16 10/08/16 04:00 04:11 04:21 Temperature 99.1 F Pulse Rate 81 106 H 101 H Pulse Rate [ 81 From Monitor] Respiratory 13 13 13 Rate Blood Pressure 153/78 142/68 142/68 O2 Sat by Pulse 94 93 94 Oximetry 10/08/16 10/08/16 10/08/16 04:30 04:41 04:51 Temperature Pulse Rate 101 H 97 H 92 H Pulse Rate [ From Monitor] Respiratory 13 13 13 Rate Blood Pressure 104/52 104/52 104/52 O2 Sat by Pulse 94 95 94 Oximetry 10/08/16 10/08/16 10/08/16 05:00 05:11 05:14 Temperature Pulse Rate 97 H 86 101 H Pulse Rate [ From Monitor] Respiratory 13 13 Rate Blood Pressure 97/44 97/44 104/52 O2 Sat by Pulse 95 95 95 Oximetry 10/08/16 10/08/16 10/08/16 05:21 05:30 05:41 Temperature Pulse Rate 90 81 86 Pulse Rate [ From Monitor] Respiratory 13 13 13 Rate Blood Pressure 97/44 98/45 98/45 O2 Sat by Pulse 95 96 95 Oximetry 10/08/16 10/08/16 10/08/16 05:51 06:00 06:11 Temperature Pulse Rate 82 78 79 Pulse Rate [ From Monitor] Respiratory 13 13 13 Rate Blood Pressure 98/45 116/60 116/60 O2 Sat by Pulse 96 94 94 Oximetry 10/08/16 10/08/16 10/08/16 06:21 06:30 06:41 Temperature Pulse Rate 78 91 H 102 H Pulse Rate [ From Monitor] Respiratory 13 18 14 Rate Blood Pressure 116/60 127/85 127/85 O2 Sat by Pulse 89 87 89 Oximetry 10/08/16 10/08/16 10/08/16 06:51 07:00 07:11 Temperature Pulse Rate 88 88 95 H Pulse Rate [ From Monitor] Respiratory 13 14 16 Rate Blood Pressure 127/85 127/59 127/59 O2 Sat by Pulse 88 85 90 Oximetry 10/08/16 10/08/16 10/08/16 07:20 07:30 07:41 Temperature Pulse Rate 79 93 H 105 H Pulse Rate [ From Monitor] Respiratory 13 15 14 Rate Blood Pressure 127/59 139/83 139/83 O2 Sat by Pulse 89 86 88 Oximetry 10/08/16 10/08/16 10/08/16 07:51 08:00 08:11 Temperature 99.3 F Pulse Rate 112 H 101 H 87 Pulse Rate [ From Monitor] Respiratory 13 13 13 Rate Blood Pressure 139/83 138/63 138/63 O2 Sat by Pulse 90 89 92 Oximetry 10/08/16 10/08/16 10/08/16 08:21 08:30 08:41 Temperature Pulse Rate 108 H 90 110 H Pulse Rate [ From Monitor] Respiratory 14 11 L 13 Rate Blood Pressure 138/63 136/71 136/71 O2 Sat by Pulse 91 92 91 Oximetry 10/08/16 10/08/16 10/08/16 08:51 09:00 09:11 Temperature Pulse Rate 100 H 84 96 H Pulse Rate [ From Monitor] Respiratory 13 13 13 Rate Blood Pressure 136/71 126/59 126/59 O2 Sat by Pulse 91 93 91 Oximetry 10/08/16 09:21 Temperature Pulse Rate 107 H Pulse Rate [ From Monitor] Respiratory 13 Rate Blood Pressure 126/59 O2 Sat by Pulse 90 Oximetry - General Appearance General appearance: well-developed, well-nourished, sedated on ventilator, intubated EENT: ATNC, PERRL, mucous membranes moist Neck: no JVD, no carotid bruit Respiratory: Present: Rales, Ronchi Cardiology: regular, S1S2 Gastrointestinal: normoactive bowel sounds, no tenderness, no distended, no masses, obese Integumentary: no rash, warm and dry Neurologic: other (sedated ) Musculoskeletal: other (1+ edema in BLE) Psychiatric: other (sedated) - Lab 10/08/16 04:00 10/08/16 04:00 Most recent lab results Calcium 9.3 mg/dL (8.4-10.2) 10/08/16 04:00 Phosphorus 3.60 mg/dL (2.5-4.5) 10/04/16 04:03 Urine Creatinine 63.2 mg/dL (0.1-20.0) H 10/03/16 15:54 Urine Sodium 20 mEq/L 10/03/16 15:54 Urine Total Protein 67 mg/dL (5-11.8) H 10/03/16 15:54
[2016-10-08] MEDS: MAXIPIME/NS 2 GM/100 ML 2 GM/100 ML BAG IV SCH (09:46)
[2016-10-08] MEDS: SENOKOT PO SCH (09:47)
[2016-10-08] MEDS: FOLVITE PO SCH (09:47)
[2016-10-08] MEDS: THERAGRAN Tab PO SCH (09:47)
[2016-10-08] MEDS: VALTREX PO SCH (09:48)
[2016-10-08] MEDS: PEPCID PO SCH ×2 (09:48→21:17)
[2016-10-08] MEDS: ASPIRIN PO SCH (09:48)
[2016-10-08] MEDS: PULMICORT IH SCH ×2 (10:00→21:39)
[2016-10-08] MEDS: BROVANA NEBU IH SCH ×2 (10:01→21:38)
--- NOTE | 2016-10-08 10:16 | Vascular Lab Report ---
LEFT UPPER EXTREMITY VENOUS DUPLEX: REASON FOR EXAM: Left arm swelling COMMENTS ON THE LEFT: All arm veins visualized are freely compressible without evidence of internal echogenicity. The subclavian and internal jugular veins are free of thrombus. Flow is spontaneous and phasic throughout. COMMENTS ON THE RIGHT: The subclavian and internal jugular veins are free of thrombus. IMPRESSION: No evidence of acute or chronic deep venous thrombosis in the left upper extremity.
--- NOTE | 2016-10-08 10:31 | Progress Note ---
Assessment and Plan - Patient Problems (1) ARDS (adult respiratory distress syndrome) Current Visit: Yes Status: Acute Plan to address problem: ARDS net protocol with lung protective strategies Continue diuresing as tolerated by renal function and electrolyte profile VTE and stress ulcer prophylaxis Adequate analgesia/agitation management Nutrition- continue Glycemic control (2) Acute respiratory failure with hypoxia Current Visit: Yes Status: Acute Plan to address problem: Continue current therapies. Gentle diuresis as tolerated by BP and renal function (3) Leukemoid reaction Current Visit: Yes Status: Acute Plan to address problem: Antibiotics as per ID service. Discussed extensively with Oncology re the need for definitive diagnosis- discussed the possibility of bone marrow biopsy (4) Acute renal failure due to tubular necrosis Current Visit: Yes Status: Acute (5) Acute hypernatremia Current Visit: Yes Status: Acute Plan to address problem: Free water and monitor closely Correct free water deficit (6) H/O total hip arthroplasty Current Visit: Yes Status: Acute Qualifiers: Laterality: left Qualified Code(s): Z96.642 - Presence of left artificial hip joint Plan to address problem: As per Orthopedic service (7) Anemia Current Visit: Yes Status: Acute Qualifiers: Anemia type: A Iron deficiency anemia type: I Vitamin B12 deficiency anemia type: V Folate deficiency anemia type: F Bone marrow failure anemia type: B Hemolytic anemia type: H Other causes of anemia: O Plan to address problem: Transfuse 1 unit PRBCs Subjective Date of service: 10/08/16 Principal diagnosis: Acute Hypoxemic Respiratory Failure; ARDS Interval history: Remains critically ill on mechanical ventilatory support. Patient-ventilator dysynchrony Currently on fentanyl and propofol for sedation/analgesia but tachycaric and hypertensive at the time of my visit. On APRV Ph 45, Plow 8, Th 4sec, Tlow 1.0 Patient seen and examined. Vitals, labs, medications, chart reviewed. Discussed with RN ,RT and multidisciplinary team Objective - Exam Narrative Exam: General: Intubated sedated Ventilator-patient asynchrony HEENT: MMM, EOMI, Proptosis Cardiac: Tacycardia, S1-S2 heard Lungs: Tacypnea, Rhonchorous ventilated breath sounds Abdomen: soft, nontender, nondistended bowel sounds positive Extremities: Hip abductor in place, no edema clubbing or cyanosis Skin: no rash or lesion Neuro: Intubated sedated Vital Signs - 12hr 0510/07/16 10/07/16 22:41 22:51 23:00 Temperature 99.3 F Pulse Rate 88 89 83 Pulse Rate [ Anterior Bilateral Throughout] Pulse Rate [ From Monitor] Respiratory 13 13 13 Rate Respiratory Rate [Anterior Bilateral Throughout] Blood Pressure 95/44 95/44 103/45 O2 Sat by Pulse 97 98 99 Oximetry 10/07/16 10/07/16 10/07/16 23:11 23:21 23:30 Temperature Pulse Rate 85 82 85 Pulse Rate [ Anterior Bilateral Throughout] Pulse Rate [ From Monitor] Respiratory 13 13 13 Rate Respiratory Rate [Anterior Bilateral Throughout] Blood Pressure 103/45 103/45 106/46 O2 Sat by Pulse 97 98 95 Oximetry 10/07/16 10/07/16 10/08/16 23:40 23:51 00:00 Temperature Pulse Rate 81 62 89 Pulse Rate [ Anterior Bilateral Throughout] Pulse Rate [ 97 H From Monitor] Respiratory 13 13 13 Rate Respiratory Rate [Anterior Bilateral Throughout] Blood Pressure 106/46 103/45 140/71 O2 Sat by Pulse 98 94 93 Oximetry 10/08/16 10/08/16 10/08/16 00:11 00:21 00:30 Temperature Pulse Rate 96 H 108 H 109 H Pulse Rate [ Anterior Bilateral Throughout] Pulse Rate [ From Monitor] Respiratory 13 13 16 Rate Respiratory Rate [Anterior Bilateral Throughout] Blood Pressure 106/46 106/46 152/71 O2 Sat by Pulse 89 97 85 Oximetry 10/08/16 10/08/16 10/08/16 00:41 00:46 00:51 Temperature Pulse Rate 113 H 103 H 112 H Pulse Rate [ Anterior Bilateral Throughout] Pulse Rate [ From Monitor] Respiratory 13 14 Rate Respiratory Rate [Anterior Bilateral Throughout] Blood Pressure 152/71 140/71 152/71 O2 Sat by Pulse 89 90 91 Oximetry 10/08/16 10/08/16 10/08/16 01:00 01:11 01:21 Temperature Pulse Rate 119 H 97 H 120 H Pulse Rate [ Anterior Bilateral Throughout] Pulse Rate [ From Monitor] Respiratory 16 20 17 Rate Respiratory Rate [Anterior Bilateral Throughout] Blood Pressure 156/67 156/67 156/67 O2 Sat by Pulse 88 89 91 Oximetry 10/08/16 10/08/16 10/08/16 01:30 01:41 01:51 Temperature Pulse Rate 115 H 106 H 106 H Pulse Rate [ Anterior Bilateral Throughout] Pulse Rate [ From Monitor] Respiratory 16 13 13 Rate Respiratory Rate [Anterior Bilateral Throughout] Blood Pressure 130/74 130/74 130/74 O2 Sat by Pulse 89 90 89 Oximetry 10/08/16 10/08/16 10/08/16 02:00 02:11 02:21 Temperature Pulse Rate 94 H 109 H 106 H Pulse Rate [ Anterior Bilateral Throughout] Pulse Rate [ From Monitor] Respiratory 18 15 13 Rate Respiratory Rate [Anterior Bilateral Throughout] Blood Pressure 137/59 130/74 130/74 O2 Sat by Pulse 88 84 90 Oximetry 10/08/16 10/08/16 10/08/16 02:31 02:41 02:51 Temperature Pulse Rate 108 H 101 H 97 H Pulse Rate [ Anterior Bilateral Throughout] Pulse Rate [ From Monitor] Respiratory 13 13 15 Rate Respiratory Rate [Anterior Bilateral Throughout] Blood Pressure 130/74 137/59 137/59 O2 Sat by Pulse 95 87 Oximetry 10/08/16 10/08/16 10/08/16 03:01 03:11 03:21 Temperature Pulse Rate 86 83 93 H Pulse Rate [ Anterior Bilateral Throughout] Pulse Rate [ From Monitor] Respiratory 13 13 13 Rate Respiratory Rate [Anterior Bilateral Throughout] Blood Pressure 145/62 145/62 145/62 O2 Sat by Pulse 89 92 92 Oximetry 10/08/16 10/08/16 10/08/16 03:30 03:41 03:51 Temperature Pulse Rate 99 H 102 H 98 H Pulse Rate [ Anterior Bilateral Throughout] Pulse Rate [ From Monitor] Respiratory 14 13 13 Rate Respiratory Rate [Anterior Bilateral Throughout] Blood Pressure 142/68 142/68 142/68 O2 Sat by Pulse 91 93 92 Oximetry 10/08/16 10/08/16 10/08/16 04:00 04:11 04:21 Temperature 99.1 F Pulse Rate 81 106 H 101 H Pulse Rate [ Anterior Bilateral Throughout] Pulse Rate [ 81 From Monitor] Respiratory 13 13 13 Rate Respiratory Rate [Anterior Bilateral Throughout] Blood Pressure 153/78 142/68 142/68 O2 Sat by Pulse 94 93 94 Oximetry 10/08/16 10/08/16 10/08/16 04:30 04:41 04:51 Temperature Pulse Rate 101 H 97 H 92 H Pulse Rate [ Anterior Bilateral Throughout] Pulse Rate [ From Monitor] Respiratory 13 13 13 Rate Respiratory Rate [Anterior Bilateral Throughout] Blood Pressure 104/52 104/52 104/52 O2 Sat by Pulse 94 95 94 Oximetry 10/08/16 10/08/16 10/08/16 05:00 05:11 05:14 Temperature Pulse Rate 97 H 86 101 H Pulse Rate [ Anterior Bilateral Throughout] Pulse Rate [ From Monitor] Respiratory 13 13 Rate Respiratory Rate [Anterior Bilateral Throughout] Blood Pressure 97/44 97/44 104/52 O2 Sat by Pulse 95 95 95 Oximetry 10/08/16 10/08/16 10/08/16 05:21 05:30 05:41 Temperature Pulse Rate 90 81 86 Pulse Rate [ Anterior Bilateral Throughout] Pulse Rate [ From Monitor] Respiratory 13 13 13 Rate Respiratory Rate [Anterior Bilateral Throughout] Blood Pressure 97/44 98/45 98/45 O2 Sat by Pulse 95 96 95 Oximetry 10/08/16 10/08/16 10/08/16 05:51 06:00 06:11 Temperature Pulse Rate 82 78 79 Pulse Rate [ Anterior Bilateral Throughout] Pulse Rate [ From Monitor] Respiratory 13 13 13 Rate Respiratory Rate [Anterior Bilateral Throughout] Blood Pressure 98/45 116/60 116/60 O2 Sat by Pulse 96 94 94 Oximetry 10/08/16 10/08/16 10/08/16 06:21 06:30 06:41 Temperature Pulse Rate 78 91 H 102 H Pulse Rate [ Anterior Bilateral Throughout] Pulse Rate [ From Monitor] Respiratory 13 18 14 Rate Respiratory Rate [Anterior Bilateral Throughout] Blood Pressure 116/60 127/85 127/85 O2 Sat by Pulse 89 87 89 Oximetry 10/08/16 10/08/16 10/08/16 06:51 07:00 07:11 Temperature Pulse Rate 88 88 95 H Pulse Rate [ Anterior Bilateral Throughout] Pulse Rate [ From Monitor] Respiratory 13 14 16 Rate Respiratory Rate [Anterior Bilateral Throughout] Blood Pressure 127/85 127/59 127/59 O2 Sat by Pulse 88 85 90 Oximetry 10/08/16 10/08/16 10/08/16 07:20 07:30 07:41 Temperature Pulse Rate 79 93 H 105 H Pulse Rate [ Anterior Bilateral Throughout] Pulse Rate [ From Monitor] Respiratory 13 15 14 Rate Respiratory Rate [Anterior Bilateral Throughout] Blood Pressure 127/59 139/83 139/83 O2 Sat by Pulse 89 86 88 Oximetry 10/08/16 10/08/16 10/08/16 07:51 08:00 08:11 Temperature 99.3 F Pulse Rate 112 H 101 H 87 Pulse Rate [ Anterior Bilateral Throughout] Pulse Rate [ From Monitor] Respiratory 13 13 13 Rate Respiratory Rate [Anterior Bilateral Throughout] Blood Pressure 139/83 138/63 138/63 O2 Sat by Pulse 90 89 92 Oximetry 10/08/16 10/08/16 10/08/16 08:21 08:30 08:41 Temperature Pulse Rate 108 H 90 110 H Pulse Rate [ Anterior Bilateral Throughout] Pulse Rate [ From Monitor] Respiratory 14 11 L 13 Rate Respiratory Rate [Anterior Bilateral Throughout] Blood Pressure 138/63 136/71 136/71 O2 Sat by Pulse 91 92 91 Oximetry 10/08/16 10/08/16 10/08/16 08:51 09:00 09:11 Temperature Pulse Rate 100 H 84 96 H Pulse Rate [ Anterior Bilateral Throughout] Pulse Rate [ From Monitor] Respiratory 13 13 13 Rate Respiratory Rate [Anterior Bilateral Throughout] Blood Pressure 136/71 126/59 126/59 O2 Sat by Pulse 91 93 91 Oximetry 10/08/16 10/08/16 10/08/16 09:21 09:55 10:01 Temperature Pulse Rate 107 H 102 H Pulse Rate [ 96 H Anterior Bilateral Throughout] Pulse Rate [ From Monitor] Respiratory 13 Rate Respiratory 25 H Rate [Anterior Bilateral Throughout] Blood Pressure 126/59 124/64 O2 Sat by Pulse 90 92 Oximetry Constitutional: appears uncomfortable, other (sedated) Eyes: non-icteric ENT: oropharynx moist Neck: supple, no lymphadenopathy Effort: mildly labored Ascultation: Bilateral: diminished breath sounds, rales, rhonchi Cardiovascular: regular rate and rhythm (tacyhcardia) Gastrointestinal: normoactive bowel sounds, soft, non-tender, non-distended Integumentary: normal Extremities: no cyanosis, no edema, pulses normal, no ischemia or petechiae Neurologic: unable to assess Psychiatric: other (sedated now) CBC and BMP: 10/09/16 07:40 10/09/16 07:40 ABG, PT/INR, D-dimer: ABG POC ABG pH 7.430 (7.35-7.45) 10/08/16 04:46 POC ABG pCO2 41.5 (35-45) 10/08/16 04:46 POC ABG pO2 65 (80-105) L 10/08/16 04:46 POC ABG HCO3 27.6 10/08/16 04:46 POC ABG Total CO2 29 10/08/16 04:46 POC ABG O2 Sat 93 10/08/16 04:46 PT/INR, D-dimer PT 14.5 Sec. (12.2-14.9) 09/20/16 10:35 INR 1.14 (0.87-1.13) H 09/20/16 10:35 D-Dimer 4758.12 ng/mlDDU (0-234) H 09/27/16 22:47 Abnormal lab findings: Abnormal Labs 09/20/16 09/20/16 09/20/16 10:35 10:35 10:35 WBC 11.7 H RBC Hgb Hct MCV 75 L MCH 24 L RDW 16.6 H Plt Count Seg Neuts % (Manual) Lymphocytes % (Manual) Monocytes % (Manual) Eosinophils % (Manual) Nucleated RBC % Seg Neutrophils # Man Lymphocytes # (Manual) Monocytes # (Manual) Eosinophils # (Manual) Percent Retic INR 1.14 H D-Dimer POC ABG pH POC ABG pCO2 POC ABG pO2 Sodium Potassium Chloride Carbon Dioxide BUN Creatinine 0.5 L Glucose 115 H POC Glucose Lactic Acid Calcium Total Bilirubin 2.0 H Lactate Dehydrogenase Total Creatine Kinase CK-MB (CK-2) C-Reactive Protein NT-Pro-B Natriuret Pep Total Protein Albumin Urine WBC (Auto) Urine Creatinine Urine Total Protein Vancomycin Trough Random Vancomycin Crossmatch 09/26/16 09/26/16 09/27/16 04:26 04:26 10:26 WBC RBC Hgb 8.9 L Hct 28.0 L MCV MCH RDW Plt Count Seg Neuts % (Manual) Lymphocytes % (Manual) Monocytes % (Manual) Eosinophils % (Manual) Nucleated RBC % Seg Neutrophils # Man Lymphocytes # (Manual) Monocytes # (Manual) Eosinophils # (Manual) Percent Retic INR D-Dimer POC ABG pH 7.283 L POC ABG pCO2 45.3 H POC ABG pO2 79 L Sodium Potassium Chloride Carbon Dioxide 20 L BUN Creatinine Glucose 129 H POC Glucose Lactic Acid Calcium 7.6 L Total Bilirubin Lactate Dehydrogenase Total Creatine Kinase CK-MB (CK-2) C-Reactive Protein NT-Pro-B Natriuret Pep Total Protein Albumin Urine WBC (Auto) Urine Creatinine Urine Total Protein Vancomycin Trough Random Vancomycin Crossmatch 09/27/16 09/27/16 09/27/16 14:40 14:40 15:14 WBC 39.3 H RBC Hgb 9.3 L Hct 28.9 L MCV 75 L MCH 24 L RDW 18.7 H Plt Count Seg Neuts % (Manual) 93.5 H Lymphocytes % (Manual) 5.0 L Monocytes % (Manual) Eosinophils % (Manual) Nucleated RBC % Seg Neutrophils # Man 36.7 H Lymphocytes # (Manual) Monocytes # (Manual) Eosinophils # (Manual) Percent Retic INR D-Dimer POC ABG pH POC ABG pCO2 POC ABG pO2 Sodium Potassium Chloride Carbon Dioxide BUN Creatinine Glucose POC Glucose Lactic Acid 2.9 H* Calcium Total Bilirubin Lactate Dehydrogenase Total Creatine Kinase 3575 H CK-MB (CK-2) 11.0 H C-Reactive Protein 16.10 H NT-Pro-B Natriuret Pep Total Protein Albumin Urine WBC (Auto) Urine Creatinine Urine Total Protein Vancomycin Trough Random Vancomycin Crossmatch 09/27/16 09/27/16 09/27/16 18:05 22:47 22:47 WBC RBC Hgb Hct MCV MCH RDW Plt Count Seg Neuts % (Manual) Lymphocytes % (Manual) Monocytes % (Manual) Eosinophils % (Manual) Nucleated RBC % Seg Neutrophils # Man Lymphocytes # (Manual) Monocytes # (Manual) Eosinophils # (Manual) Percent Retic INR D-Dimer 4758.12 H POC ABG pH POC ABG pCO2 POC ABG pO2 70 L Sodium Potassium Chloride Carbon Dioxide BUN Creatinine Glucose POC Glucose Lactic Acid Calcium Total Bilirubin Lactate Dehydrogenase 829 H Total Creatine Kinase CK-MB (CK-2) C-Reactive Protein NT-Pro-B Natriuret Pep Total Protein Albumin Urine WBC (Auto) Urine Creatinine Urine Total Protein Vancomycin Trough Random Vancomycin Crossmatch 09/27/16 09/28/16 09/28/16 22:47 09:20 10:47 WBC RBC Hgb Hct MCV MCH RDW Plt Count Seg Neuts % (Manual) Lymphocytes % (Manual) Monocytes % (Manual) Eosinophils % (Manual) Nucleated RBC % Seg Neutrophils # Man Lymphocytes # (Manual) Monocytes # (Manual) Eosinophils # (Manual) Percent Retic 8.11 H INR D-Dimer POC ABG pH POC ABG pCO2 47.2 H POC ABG pO2 70 L Sodium Potassium Chloride Carbon Dioxide BUN Creatinine 0.6 L Glucose 137 H POC Glucose Lactic Acid Calcium Total Bilirubin Lactate Dehydrogenase Total Creatine Kinase CK-MB (CK-2) C-Reactive Protein NT-Pro-B Natriuret Pep Total Protein Albumin Urine WBC (Auto) Urine Creatinine Urine Total Protein Vancomycin Trough Random Vancomycin Crossmatch 09/28/16 09/30/16 09/30/16 10:47 11:01 14:05 WBC 30.3 H RBC 3.27 L Hgb 8.1 L Hct 24.4 L MCV 75 L MCH 25 L RDW 18.9 H Plt Count Seg Neuts % (Manual) Lymphocytes % (Manual) 12.0 L Monocytes % (Manual) Eosinophils % (Manual) Nucleated RBC % 5.0 H Seg Neutrophils # Man 21.2 H Lymphocytes # (Manual) Monocytes # (Manual) 1.8 H Eosinophils # (Manual) Percent Retic INR D-Dimer POC ABG pH POC ABG pCO2 48.8 H POC ABG pO2 52 L Sodium Potassium Chloride Carbon Dioxide BUN Creatinine Glucose POC Glucose Lactic Acid Calcium Total Bilirubin Lactate Dehydrogenase Total Creatine Kinase CK-MB (CK-2) C-Reactive Protein NT-Pro-B Natriuret Pep 2018 H Total Protein Albumin Urine WBC (Auto) Urine Creatinine Urine Total Protein Vancomycin Trough Random Vancomycin Crossmatch 09/30/16 09/30/16 09/30/16 14:05 14:05 14:05 WBC 22.1 H RBC 2.76 L Hgb 6.9 L Hct 20.6 L MCV 75 L MCH 25 L RDW 18.7 H Plt Count Seg Neuts % (Manual) 74.0 H Lymphocytes % (Manual) 7.0 L Monocytes % (Manual) Eosinophils % (Manual) Nucleated RBC % 52.0 H Seg Neutrophils # Man 16.4 H Lymphocytes # (Manual) Monocytes # (Manual) Eosinophils # (Manual) Percent Retic INR D-Dimer POC ABG pH POC ABG pCO2 POC ABG pO2 Sodium Potassium 3.1 L Chloride Carbon Dioxide BUN Creatinine 0.5 L Glucose 116 H POC Glucose Lactic Acid Calcium 8.2 L Total Bilirubin Lactate Dehydrogenase Total Creatine Kinase CK-MB (CK-2) C-Reactive Protein 30.80 H NT-Pro-B Natriuret Pep Total Protein Albumin Urine WBC (Auto) Urine Creatinine Urine Total Protein Vancomycin Trough Random Vancomycin Crossmatch 09/30/16 10/01/16 10/01/16 14:33 00:55 00:55 WBC 26.1 H RBC 2.80 L Hgb 6.8 L Hct 20.8 L MCV 74 L MCH 24 L RDW 18.6 H Plt Count Seg Neuts % (Manual) 85.0 H Lymphocytes % (Manual) 11.0 L Monocytes % (Manual) Eosinophils % (Manual) Nucleated RBC % 21.0 H Seg Neutrophils # Man 22.2 H Lymphocytes # (Manual) Monocytes # (Manual) 1.0 H Eosinophils # (Manual) Percent Retic INR D-Dimer POC ABG pH POC ABG pCO2 47.8 H POC ABG pO2 201 H Sodium Potassium Chloride Carbon Dioxide BUN Creatinine Glucose POC Glucose Lactic Acid Calcium Total Bilirubin Lactate Dehydrogenase Total Creatine Kinase CK-MB (CK-2) C-Reactive Protein NT-Pro-B Natriuret Pep Total Protein Albumin Urine WBC (Auto) Urine Creatinine Urine Total Protein Vancomycin Trough Random Vancomycin Crossmatch See Detail 10/01/16 10/01/16 10/01/16 04:57 05:00 13:01 WBC RBC Hgb Hct MCV MCH RDW Plt Count Seg Neuts % (Manual) Lymphocytes % (Manual) Monocytes % (Manual) Eosinophils % (Manual) Nucleated RBC % Seg Neutrophils # Man Lymphocytes # (Manual) Monocytes # (Manual) Eosinophils # (Manual) Percent Retic INR D-Dimer POC ABG pH POC ABG pCO2 58.5 H POC ABG pO2 149 H Sodium 149 H Potassium 3.0 L Chloride Carbon Dioxide BUN Creatinine Glucose POC Glucose 120 H Lactic Acid Calcium 8.3 L Total Bilirubin Lactate Dehydrogenase Total Creatine Kinase CK-MB (CK-2) C-Reactive Protein NT-Pro-B Natriuret Pep Total Protein Albumin Urine WBC (Auto) Urine Creatinine Urine Total Protein Vancomycin Trough Random Vancomycin Crossmatch 10/01/16 10/01/16 10/01/16 15:43 17:44 23:37 WBC 27.6 H RBC 3.55 L Hgb 8.9 L Hct 27.6 L D MCV 78 L D MCH 25 L RDW 18.1 H Plt Count Seg Neuts % (Manual) 79.5 H Lymphocytes % (Manual) 8.0 L Monocytes % (Manual) Eosinophils % (Manual) Nucleated RBC % 65.0 H Seg Neutrophils # Man 21.9 H Lymphocytes # (Manual) Monocytes # (Manual) 1.0 H Eosinophils # (Manual) Percent Retic INR D-Dimer POC ABG pH POC ABG pCO2 POC ABG pO2 Sodium Potassium Chloride Carbon Dioxide BUN Creatinine Glucose POC Glucose 121 H 129 H Lactic Acid Calcium Total Bilirubin Lactate Dehydrogenase Total Creatine Kinase CK-MB (CK-2) C-Reactive Protein NT-Pro-B Natriuret Pep Total Protein Albumin Urine WBC (Auto) Urine Creatinine Urine Total Protein Vancomycin Trough Random Vancomycin Crossmatch 10/02/16 10/02/16 10/02/16 05:05 05:40 06:00 WBC 23.0 H RBC 3.30 L Hgb 8.3 L Hct 25.8 L MCV 78 L MCH 25 L RDW 18.2 H Plt Count Seg Neuts % (Manual) 83.5 H Lymphocytes % (Manual) 4.0 L Monocytes % (Manual) Eosinophils % (Manual) Nucleated RBC % 14.5 H Seg Neutrophils # Man 25.1 H Lymphocytes # (Manual) Monocytes # (Manual) 1.7 H Eosinophils # (Manual) Percent Retic INR D-Dimer POC ABG pH POC ABG pCO2 50.5 H POC ABG pO2 Sodium Potassium Chloride Carbon Dioxide BUN Creatinine Glucose POC Glucose 123 H Lactic Acid Calcium Total Bilirubin Lactate Dehydrogenase Total Creatine Kinase CK-MB (CK-2) C-Reactive Protein NT-Pro-B Natriuret Pep Total Protein Albumin Urine WBC (Auto) Urine Creatinine Urine Total Protein Vancomycin Trough Random Vancomycin Crossmatch 10/02/16 10/02/16 10/02/16 06:00 11:42 21:52 WBC RBC Hgb Hct MCV MCH RDW Plt Count Seg Neuts % (Manual) Lymphocytes % (Manual) Monocytes % (Manual) Eosinophils % (Manual) Nucleated RBC % Seg Neutrophils # Man Lymphocytes # (Manual) Monocytes # (Manual) Eosinophils # (Manual) Percent Retic INR D-Dimer POC ABG pH 7.324 L POC ABG pCO2 60.5 H POC ABG pO2 74 L Sodium 150 H Potassium Chloride 108.3 H Carbon Dioxide BUN 20 H Creatinine 1.4 H D Glucose 117 H POC Glucose 135 H Lactic Acid Calcium Total Bilirubin Lactate Dehydrogenase Total Creatine Kinase CK-MB (CK-2) C-Reactive Protein NT-Pro-B Natriuret Pep Total Protein Albumin Urine WBC (Auto) Urine Creatinine Urine Total Protein Vancomycin Trough Random Vancomycin Crossmatch 10/02/16 10/03/16 10/03/16 23:26 05:55 08:17 WBC 32.0 H RBC 3.13 L Hgb 7.9 L Hct 24.6 L MCV MCH 25 L RDW 18.9 H Plt Count 132 L Seg Neuts % (Manual) 75.0 H Lymphocytes % (Manual) 5.0 L Monocytes % (Manual) Eosinophils % (Manual) Nucleated RBC % 26.0 H Seg Neutrophils # Man 24.0 H Lymphocytes # (Manual) Monocytes # (Manual) 1.0 H Eosinophils # (Manual) 1.0 H Percent Retic INR D-Dimer POC ABG pH POC ABG pCO2 POC ABG pO2 Sodium Potassium Chloride Carbon Dioxide BUN Creatinine Glucose POC Glucose 121 H 145 H Lactic Acid Calcium Total Bilirubin Lactate Dehydrogenase Total Creatine Kinase CK-MB (CK-2) C-Reactive Protein NT-Pro-B Natriuret Pep Total Protein Albumin Urine WBC (Auto) Urine Creatinine Urine Total Protein Vancomycin Trough Random Vancomycin Crossmatch 10/03/16 10/03/16 10/03/16 08:17 09:26 11:34 WBC RBC Hgb Hct MCV MCH RDW Plt Count Seg Neuts % (Manual) Lymphocytes % (Manual) Monocytes % (Manual) Eosinophils % (Manual) Nucleated RBC % Seg Neutrophils # Man Lymphocytes # (Manual) Monocytes # (Manual) Eosinophils # (Manual) Percent Retic INR D-Dimer POC ABG pH 7.274 L POC ABG pCO2 59.7 H POC ABG pO2 58 L Sodium 147 H Potassium Chloride 107.6 H Carbon Dioxide BUN 31 H Creatinine 1.7 H Glucose 118 H POC Glucose 142 H Lactic Acid Calcium Total Bilirubin Lactate Dehydrogenase Total Creatine Kinase CK-MB (CK-2) C-Reactive Protein NT-Pro-B Natriuret Pep Total Protein Albumin Urine WBC (Auto) Urine Creatinine Urine Total Protein Vancomycin Trough Random Vancomycin Crossmatch 10/03/16 10/03/16 10/03/16 15:54 15:54 16:58 WBC RBC Hgb Hct MCV MCH RDW Plt Count Seg Neuts % (Manual) Lymphocytes % (Manual) Monocytes % (Manual) Eosinophils % (Manual) Nucleated RBC % Seg Neutrophils # Man Lymphocytes # (Manual) Monocytes # (Manual) Eosinophils # (Manual) Percent Retic INR D-Dimer POC ABG pH POC ABG pCO2 POC ABG pO2 Sodium Potassium Chloride Carbon Dioxide BUN Creatinine Glucose POC Glucose 138 H Lactic Acid Calcium Total Bilirubin Lactate Dehydrogenase Total Creatine Kinase CK-MB (CK-2) C-Reactive Protein NT-Pro-B Natriuret Pep Total Protein Albumin Urine WBC (Auto) 21.0 H Urine Creatinine 63.2 H Urine Total Protein 67 H Vancomycin Trough Random Vancomycin Crossmatch 10/03/16 10/03/16 10/04/16 21:37 23:44 04:00 WBC 30.3 H RBC 2.86 L Hgb 7.3 L Hct 22.6 L MCV MCH 25 L RDW 19.6 H Plt Count 125 L Seg Neuts % (Manual) Lymphocytes % (Manual) 12.0 L Monocytes % (Manual) Eosinophils % (Manual) 5.0 H Nucleated RBC % 30.0 H Seg Neutrophils # Man 12.7 H Lymphocytes # (Manual) Monocytes # (Manual) 1.2 H Eosinophils # (Manual) 1.5 H Percent Retic INR D-Dimer POC ABG pH 7.271 L POC ABG pCO2 61.7 H POC ABG pO2 77 L Sodium Potassium Chloride Carbon Dioxide BUN Creatinine Glucose POC Glucose 130 H Lactic Acid Calcium Total Bilirubin Lactate Dehydrogenase Total Creatine Kinase CK-MB (CK-2) C-Reactive Protein NT-Pro-B Natriuret Pep Total Protein Albumin Urine WBC (Auto) Urine Creatinine Urine Total Protein Vancomycin Trough Random Vancomycin Crossmatch 10/04/16 10/04/16 10/04/16 04:03 06:02 12:29 WBC RBC Hgb Hct MCV MCH RDW Plt Count Seg Neuts % (Manual) Lymphocytes % (Manual) Monocytes % (Manual) Eosinophils % (Manual) Nucleated RBC % Seg Neutrophils # Man Lymphocytes # (Manual) Monocytes # (Manual) Eosinophils # (Manual) Percent Retic INR D-Dimer POC ABG pH 7.248 L POC ABG pCO2 62.3 H POC ABG pO2 59 L Sodium Potassium Chloride Carbon Dioxide BUN 40 H Creatinine 1.7 H Glucose 110 H POC Glucose 123 H Lactic Acid Calcium Total Bilirubin Lactate Dehydrogenase Total Creatine Kinase CK-MB (CK-2) C-Reactive Protein NT-Pro-B Natriuret Pep Total Protein 5.6 L Albumin 2.1 L Urine WBC (Auto) Urine Creatinine Urine Total Protein Vancomycin Trough Random Vancomycin Crossmatch 10/04/16 10/04/16 10/04/16 12:39 15:14 17:45 WBC RBC Hgb Hct MCV MCH RDW Plt Count Seg Neuts % (Manual) Lymphocytes % (Manual) Monocytes % (Manual) Eosinophils % (Manual) Nucleated RBC % Seg Neutrophils # Man Lymphocytes # (Manual) Monocytes # (Manual) Eosinophils # (Manual) Percent Retic INR D-Dimer POC ABG pH POC ABG pCO2 POC ABG pO2 109 H Sodium Potassium Chloride Carbon Dioxide BUN Creatinine Glucose POC Glucose 124 H Lactic Acid Calcium Total Bilirubin Lactate Dehydrogenase Total Creatine Kinase CK-MB (CK-2) C-Reactive Protein NT-Pro-B Natriuret Pep Total Protein Albumin Urine WBC (Auto) Urine Creatinine Urine Total Protein Vancomycin Trough 45.5 H Random Vancomycin Crossmatch 10/04/16 10/04/16 10/05/16 20:13 23:05 01:27 WBC 36.1 H RBC 2.99 L Hgb 7.3 L Hct 23.5 L MCV MCH 25 L RDW 19.6 H Plt Count Seg Neuts % (Manual) Lymphocytes % (Manual) Monocytes % (Manual) Eosinophils % (Manual) Nucleated RBC % Seg Neutrophils # Man Lymphocytes # (Manual) Monocytes # (Manual) Eosinophils # (Manual) Percent Retic INR D-Dimer POC ABG pH 7.341 L POC ABG pCO2 POC ABG pO2 47 L Sodium Potassium Chloride Carbon Dioxide BUN Creatinine Glucose POC Glucose 127 H Lactic Acid Calcium Total Bilirubin Lactate Dehydrogenase Total Creatine Kinase CK-MB (CK-2) C-Reactive Protein NT-Pro-B Natriuret Pep Total Protein Albumin Urine WBC (Auto) Urine Creatinine Urine Total Protein Vancomycin Trough Random Vancomycin Crossmatch 10/05/16 10/05/16 10/05/16 01:27 03:50 05:00 WBC RBC Hgb Hct MCV MCH RDW Plt Count Seg Neuts % (Manual) Lymphocytes % (Manual) Monocytes % (Manual) Eosinophils % (Manual) Nucleated RBC % Seg Neutrophils # Man Lymphocytes # (Manual) Monocytes # (Manual) Eosinophils # (Manual) Percent Retic INR D-Dimer POC ABG pH 7.330 L POC ABG pCO2 45.3 H POC ABG pO2 53 L Sodium Potassium Chloride Carbon Dioxide BUN 49 H Creatinine 1.6 H Glucose 112 H POC Glucose Lactic Acid Calcium Total Bilirubin Lactate Dehydrogenase Total Creatine Kinase CK-MB (CK-2) C-Reactive Protein NT-Pro-B Natriuret Pep Total Protein Albumin Urine WBC (Auto) Urine Creatinine Urine Total Protein Vancomycin Trough Random Vancomycin 43.6 H Crossmatch 10/05/16 10/05/16 10/05/16 05:30 12:08 14:00 WBC RBC Hgb Hct MCV MCH RDW Plt Count Seg Neuts % (Manual) Lymphocytes % (Manual) Monocytes % (Manual) Eosinophils % (Manual) Nucleated RBC % Seg Neutrophils # Man Lymphocytes # (Manual) Monocytes # (Manual) Eosinophils # (Manual) Percent Retic INR D-Dimer POC ABG pH POC ABG pCO2 POC ABG pO2 Sodium Potassium Chloride Carbon Dioxide BUN Creatinine Glucose POC Glucose 141 H 149 H Lactic Acid Calcium Total Bilirubin Lactate Dehydrogenase Total Creatine Kinase CK-MB (CK-2) C-Reactive Protein 28.40 H NT-Pro-B Natriuret Pep Total Protein Albumin Urine WBC (Auto) Urine Creatinine Urine Total Protein Vancomycin Trough Random Vancomycin Crossmatch 10/05/16 10/05/16 10/05/16 15:37 16:41 17:15 WBC RBC Hgb Hct MCV MCH RDW Plt Count Seg Neuts % (Manual) Lymphocytes % (Manual) Monocytes % (Manual) Eosinophils % (Manual) Nucleated RBC % Seg Neutrophils # Man Lymphocytes # (Manual) Monocytes # (Manual) Eosinophils # (Manual) Percent Retic INR D-Dimer POC ABG pH 7.157 L 7.133 L POC ABG pCO2 75.0 H 80.5 H POC ABG pO2 76 L Sodium Potassium Chloride Carbon Dioxide BUN Creatinine Glucose POC Glucose 151 H Lactic Acid Calcium Total Bilirubin Lactate Dehydrogenase Total Creatine Kinase CK-MB (CK-2) C-Reactive Protein NT-Pro-B Natriuret Pep Total Protein Albumin Urine WBC (Auto) Urine Creatinine Urine Total Protein Vancomycin Trough Random Vancomycin Crossmatch 10/05/16 10/05/16 10/06/16 19:58 23:50 03:57 WBC 45.3 H* RBC 3.08 L Hgb 7.5 L Hct 24.5 L MCV MCH 25 L RDW 20.1 H Plt Count Seg Neuts % (Manual) 24.0 L Lymphocytes % (Manual) 10.0 L Monocytes % (Manual) Eosinophils % (Manual) Nucleated RBC % 36.0 H Seg Neutrophils # Man 10.9 H Lymphocytes # (Manual) Monocytes # (Manual) 3.2 H Eosinophils # (Manual) 0.5 H Percent Retic INR D-Dimer POC ABG pH 7.198 L POC ABG pCO2 69.5 H POC ABG pO2 Sodium Potassium Chloride Carbon Dioxide BUN Creatinine Glucose POC Glucose 160 H Lactic Acid Calcium Total Bilirubin Lactate Dehydrogenase Total Creatine Kinase CK-MB (CK-2) C-Reactive Protein NT-Pro-B Natriuret Pep Total Protein Albumin Urine WBC (Auto) Urine Creatinine Urine Total Protein Vancomycin Trough Random Vancomycin Crossmatch 10/06/16 10/06/16 10/06/16 03:57 05:38 06:08 WBC RBC Hgb Hct MCV MCH RDW Plt Count Seg Neuts % (Manual) Lymphocytes % (Manual) Monocytes % (Manual) Eosinophils % (Manual) Nucleated RBC % Seg Neutrophils # Man Lymphocytes # (Manual) Monocytes # (Manual) Eosinophils # (Manual) Percent Retic INR D-Dimer POC ABG pH 7.226 L POC ABG pCO2 63.3 H POC ABG pO2 Sodium 152 H D Potassium Chloride 114.1 H Carbon Dioxide BUN 58 H Creatinine 1.6 H Glucose 123 H POC Glucose 129 H Lactic Acid Calcium Total Bilirubin Lactate Dehydrogenase Total Creatine Kinase CK-MB (CK-2) C-Reactive Protein NT-Pro-B Natriuret Pep Total Protein Albumin Urine WBC (Auto) Urine Creatinine Urine Total Protein Vancomycin Trough Random Vancomycin Crossmatch 10/06/16 10/06/16 10/06/16 11:38 14:31 18:10 WBC RBC Hgb Hct MCV MCH RDW Plt Count Seg Neuts % (Manual) Lymphocytes % (Manual) Monocytes % (Manual) Eosinophils % (Manual) Nucleated RBC % Seg Neutrophils # Man Lymphocytes # (Manual) Monocytes # (Manual) Eosinophils # (Manual) Percent Retic INR D-Dimer POC ABG pH 7.345 L POC ABG pCO2 49.5 H POC ABG pO2 60 L Sodium Potassium Chloride Carbon Dioxide BUN Creatinine Glucose POC Glucose 126 H 196 H Lactic Acid Calcium Total Bilirubin Lactate Dehydrogenase Total Creatine Kinase CK-MB (CK-2) C-Reactive Protein NT-Pro-B Natriuret Pep Total Protein Albumin Urine WBC (Auto) Urine Creatinine Urine Total Protein Vancomycin Trough Random Vancomycin Crossmatch 10/06/16 10/07/16 10/07/16 21:07 00:55 00:55 WBC 55.1 H* RBC 3.06 L Hgb 7.5 L Hct 24.4 L MCV MCH 24 L RDW 20.7 H Plt Count Seg Neuts % (Manual) Lymphocytes % (Manual) 8.0 L Monocytes % (Manual) 9.0 H Eosinophils % (Manual) Nucleated RBC % 30.0 H Seg Neutrophils # Man 27.0 H Lymphocytes # (Manual) Monocytes # (Manual) 5.0 H Eosinophils # (Manual) 0.6 H Percent Retic INR D-Dimer POC ABG pH 7.317 L POC ABG pCO2 55.2 H POC ABG pO2 59 L Sodium 148 H Potassium Chloride 110.2 H Carbon Dioxide BUN 56 H Creatinine 1.7 H Glucose 211 H POC Glucose Lactic Acid Calcium Total Bilirubin Lactate Dehydrogenase Total Creatine Kinase CK-MB (CK-2) C-Reactive Protein NT-Pro-B Natriuret Pep Total Protein Albumin Urine WBC (Auto) Urine Creatinine Urine Total Protein Vancomycin Trough Random Vancomycin Crossmatch 10/07/16 10/07/16 10/07/16 01:01 05:20 06:31 WBC RBC Hgb Hct MCV MCH RDW Plt Count Seg Neuts % (Manual) Lymphocytes % (Manual) Monocytes % (Manual) Eosinophils % (Manual) Nucleated RBC % Seg Neutrophils # Man Lymphocytes # (Manual) Monocytes # (Manual) Eosinophils # (Manual) Percent Retic INR D-Dimer POC ABG pH 7.310 L POC ABG pCO2 55.6 H POC ABG pO2 65 L Sodium Potassium Chloride Carbon Dioxide BUN Creatinine Glucose POC Glucose 249 H 235 H Lactic Acid Calcium Total Bilirubin Lactate Dehydrogenase Total Creatine Kinase CK-MB (CK-2) C-Reactive Protein NT-Pro-B Natriuret Pep Total Protein Albumin Urine WBC (Auto) Urine Creatinine Urine Total Protein Vancomycin Trough Random Vancomycin Crossmatch 10/07/16 10/07/16 10/07/16 12:00 18:04 23:48 WBC RBC Hgb Hct MCV MCH RDW Plt Count Seg Neuts % (Manual) Lymphocytes % (Manual) Monocytes % (Manual) Eosinophils % (Manual) Nucleated RBC % Seg Neutrophils # Man Lymphocytes # (Manual) Monocytes # (Manual) Eosinophils # (Manual) Percent Retic INR D-Dimer POC ABG pH POC ABG pCO2 POC ABG pO2 Sodium Potassium Chloride Carbon Dioxide BUN Creatinine Glucose POC Glucose 210 H 201 H 163 H Lactic Acid Calcium Total Bilirubin Lactate Dehydrogenase Total Creatine Kinase CK-MB (CK-2) C-Reactive Protein NT-Pro-B Natriuret Pep Total Protein Albumin Urine WBC (Auto) Urine Creatinine Urine Total Protein Vancomycin Trough Random Vancomycin Crossmatch 10/08/16 10/08/16 10/08/16 04:00 04:00 04:10 WBC 58.0 H* RBC 2.95 L Hgb 7.3 L Hct 23.4 L MCV MCH 25 L RDW 20.8 H Plt Count Seg Neuts % (Manual) 75.0 H Lymphocytes % (Manual) 11.0 L Monocytes % (Manual) 8.0 H Eosinophils % (Manual) Nucleated RBC % 30.0 H Seg Neutrophils # Man 43.5 H Lymphocytes # (Manual) 6.4 H Monocytes # (Manual) 4.6 H Eosinophils # (Manual) 0.6 H Percent Retic INR D-Dimer POC ABG pH POC ABG pCO2 POC ABG pO2 Sodium 152 H Potassium Chloride 111.4 H Carbon Dioxide BUN 59 H Creatinine 1.6 H Glucose 190 H POC Glucose 214 H Lactic Acid Calcium Total Bilirubin Lactate Dehydrogenase Total Creatine Kinase CK-MB (CK-2) C-Reactive Protein NT-Pro-B Natriuret Pep Total Protein Albumin Urine WBC (Auto) Urine Creatinine Urine Total Protein Vancomycin Trough Random Vancomycin Crossmatch 10/08/16 04:46 WBC RBC Hgb Hct MCV MCH RDW Plt Count Seg Neuts % (Manual) Lymphocytes % (Manual) Monocytes % (Manual) Eosinophils % (Manual) Nucleated RBC % Seg Neutrophils # Man Lymphocytes # (Manual) Monocytes # (Manual) Eosinophils # (Manual) Percent Retic INR D-Dimer POC ABG pH POC ABG pCO2 POC ABG pO2 65 L Sodium Potassium Chloride Carbon Dioxide BUN Creatinine Glucose POC Glucose Lactic Acid Calcium Total Bilirubin Lactate Dehydrogenase Total Creatine Kinase CK-MB (CK-2) C-Reactive Protein NT-Pro-B Natriuret Pep Total Protein Albumin Urine WBC (Auto) Urine Creatinine Urine Total Protein Vancomycin Trough Random Vancomycin Crossmatch Allied health notes reviewed: RT ED Critical Care Note - Critical Care Note Total Time (mins): 31 Critical care time in (mins) excluding proc time.: 31 Critical care attestation.: If time is entered above; I have spent that time in minutes in the direct care of this critically ill patient, excluding procedure time.
[2016-10-08] MEDS ORDERED: VANCOMYCIN 1,250 MG in NACL 0.9% 250ML 250 ML IV ONE (11:00)
--- NOTE | 2016-10-08 14:03 | Progress Note ---
Assessment and Plan - Patient Problems (1) Acute respiratory failure with hypoxia Current Visit: Yes Status: Acute Plan to address problem: 1. Decreasing FiO2 requirement. 2. As there are no positive bacterial cultures, will discontinue Cefepime and Vancomycin. (2) Acute renal failure due to tubular necrosis Current Visit: Yes Status: Acute Plan to address problem: Continue renally adjusted medications and antimicrobials. (3) Leukemoid reaction Current Visit: Yes Status: Acute Plan to address problem: 1. Question subclinical Cdiff or other origin. 2. Stopping Vancomycin and Cefepime. 3. Will continue Flagyl for now. 4. Monitoring closely for a localizing clinical issue. Subjective Date of service: 10/08/16 Principal diagnosis: Acute Hypoxemic Respiratory Failure; ARDS Interval history: Remains afebrile in ICU. However, WBC count continues to increase. Objective - Constitutional Vitals: Vital Signs Temp Pulse Resp BP Pulse Ox 98.7 F 102 H 13 86/32 95 10/08/16 12:00 10/08/16 11:43 10/08/16 11:43 10/08/16 11:43 10/08/16 11:43 Temperature -Last 24 Hours Temperature 98.7 F Temperature 99.3 F Temperature 99.1 F Temperature 99.3 F Temperature 99.8 F Temperature 100.6 F General appearance: Present: mild distress (accessory muscle use on vent, FiO2 50%), obese - Respiratory Respiratory effort: accessory muscle use Respiratory: bilateral: CTA, negative: rales, wheezing - Cardiovascular Rhythm: regular Heart Sounds: Present: S1 & S2 Extremities: No edema Extremity abnormal: other (clean and intact left hip incision, mild serous drainage) - Gastrointestinal General gastrointestinal: Present: soft, non-tender, non-distended, hypoactive bowel sounds - Genitourinary Female genitourinary: other (Montes with normal, yellow urine) - Integumentary Integumentary: no jaundice, no rash - Labs CBC & Chem 7: 10/08/16 04:00 10/08/16 04:00 Labs: Abnormal lab results 10/07/16 10/07/16 10/08/16 Range/Units 18:04 23:48 04:00 WBC 58.0 H* (4.5-11.0) K/mm3 RBC 2.95 L (3.65-5.03) M/mm3 Hgb 7.3 L (10.1-14.3) gm/dl Hct 23.4 L (30.3-42.9) % MCH 25 L (28-32) pg RDW 20.8 H (13.2-15.2) % Seg Neuts % (Manual) 75.0 H (40.0-70.0) % Lymphocytes % (Manual) 11.0 L (13.4-35.0) % Monocytes % (Manual) 8.0 H (0.0-7.3) % Nucleated RBC % 30.0 H (0.0-0.9) % Seg Neutrophils # Man 43.5 H (1.8-7.7) K/mm3 Lymphocytes # (Manual) 6.4 H (1.2-5.4) K/mm3 Monocytes # (Manual) 4.6 H (0.0-0.8) K/mm3 Eosinophils # (Manual) 0.6 H (0.0-0.4) K/mm3 POC ABG pO2 (80-105) Sodium (137-145) mmol/L Chloride (98-107) mmol/L BUN (7-17) mg/dL Creatinine (0.7-1.2) mg/dL Glucose (65-100) mg/dL POC Glucose 201 H 163 H (70-105) 10/08/16 10/08/16 10/08/16 Range/Units 04:00 04:10 04:46 WBC (4.5-11.0) K/mm3 RBC (3.65-5.03) M/mm3 Hgb (10.1-14.3) gm/dl Hct (30.3-42.9) % MCH (28-32) pg RDW (13.2-15.2) % Seg Neuts % (Manual) (40.0-70.0) % Lymphocytes % (Manual) (13.4-35.0) % Monocytes % (Manual) (0.0-7.3) % Nucleated RBC % (0.0-0.9) % Seg Neutrophils # Man (1.8-7.7) K/mm3 Lymphocytes # (Manual) (1.2-5.4) K/mm3 Monocytes # (Manual) (0.0-0.8) K/mm3 Eosinophils # (Manual) (0.0-0.4) K/mm3 POC ABG pO2 65 L (80-105) Sodium 152 H (137-145) mmol/L Chloride 111.4 H (98-107) mmol/L BUN 59 H (7-17) mg/dL Creatinine 1.6 H (0.7-1.2) mg/dL Glucose 190 H (65-100) mg/dL POC Glucose 214 H (70-105) 10/08/16 Range/Units 12:11 WBC (4.5-11.0) K/mm3 RBC (3.65-5.03) M/mm3 Hgb (10.1-14.3) gm/dl Hct (30.3-42.9) % MCH (28-32) pg RDW (13.2-15.2) % Seg Neuts % (Manual) (40.0-70.0) % Lymphocytes % (Manual) (13.4-35.0) % Monocytes % (Manual) (0.0-7.3) % Nucleated RBC % (0.0-0.9) % Seg Neutrophils # Man (1.8-7.7) K/mm3 Lymphocytes # (Manual) (1.2-5.4) K/mm3 Monocytes # (Manual) (0.0-0.8) K/mm3 Eosinophils # (Manual) (0.0-0.4) K/mm3 POC ABG pO2 (80-105) Sodium (137-145) mmol/L Chloride (98-107) mmol/L BUN (7-17) mg/dL Creatinine (0.7-1.2) mg/dL Glucose (65-100) mg/dL POC Glucose 199 H (70-105) Microbiology 10/03/16 09:20 Peripheral/Venous Blood Culture - Final NO GROWTH AFTER 5 DAYS 10/03/16 09:30 Picc Blood Culture - Final NO GROWTH AFTER 5 DAYS 10/03/16 09:06 Urine,Catheterized - Indwelling Catheter Urine Culture - Final 09/27/16 22:47 Peripheral/Venous Blood Culture - Final NO GROWTH AFTER 5 DAYS 09/27/16 22:47 Peripheral/Venous Blood Culture - Final NO GROWTH AFTER 5 DAYS 09/27/16 15:06 Peripheral/Venous Blood Culture - Final NO GROWTH AFTER 5 DAYS 09/27/16 14:40 Peripheral/Venous Blood Culture - Final NO GROWTH AFTER 5 DAYS 09/30/16 Unknown Tracheal Aspirate Sputum Culture - Final Active Medications Acetaminophen (Tylenol) 650 mg PO Q4H PRN PRN Reason: Pain MILD(1-3)/Fever >100.5/PALACIOS Last Admin: 10/07/16 18:13 Dose: 650 mg Albuterol/Ipratropium (Duoneb 0.5 Mg-3 Mg/3 Ml Soln) 1 ampul IH Q6HRT [facility] Last Admin: 10/08/16 10:00 Dose: 1 ampul Lipase/Protease/Amylase (Pancreaze Dr 10,500 Unit) 1 each FEEDTUBE PRN PRN PRN Reason: For Clogged Feeding Tube Arformoterol Tartrate (Brovana Nebu) 15 mcg IH Q12HRT [facility] Last Admin: 10/08/16 10:01 Dose: Not Given Aspirin (Aspirin) 325 mg PO QDAY [facility] Last Admin: 10/08/16 09:48 Dose: 325 mg Budesonide (Pulmicort) 0.5 mg IH Q12HRT [facility] Last Admin: 10/08/16 10:00 Dose: 0.5 mg Diphenhydramine HCl (Benadryl) 12.5 mg IV Q4H PRN PRN Reason: Itching Last Admin: 09/30/16 07:02 Dose: 12.5 mg Enoxaparin Sodium (Lovenox) 40 mg SUB-Q QDAY [facility] Last Admin: 10/08/16 09:28 Dose: 40 mg Famotidine (Pepcid) 20 mg PO BID [facility] Last Admin: 10/08/16 09:48 Dose: 20 mg Folic Acid (Folvite) 1 mg PO QDAY [facility] Last Admin: 10/08/16 09:47 Dose: 1 mg Furosemide (Lasix) 40 mg IV QDAY [facility] Last Admin: 10/08/16 09:58 Dose: 40 mg Hydrophilic Ointment (Vaseline Lip Therapy) 1 applic TP Q2HR PRN PRN Reason: Dry Lips Fentanyl Citrate (Fentanyl Drip Premix) 2,000 mcg in 100 mls @ 4.649 mls/hr IV TITR SADAF; 1 MCG/KG/HR PRN Reason: Protocol Last Admin: 10/08/16 08:00 Dose: 2 mcg/kg/hr, 9.299 mls/hr Propofol (Diprivan 10 Mg/Ml) 1,000 mg in 100 mls @ 2.79 mls/hr IV TITR SADAF; 5 MCG/KG/MIN PRN Reason: Protocol Last Admin: 10/08/16 09:58 Dose: 15 mcg/kg/min, 8.369 mls/hr Midazolam HCl 100 mg/ Sodium (Chloride) 100 mls @ 2 mls/hr IV TITR SADAF; 2 MG/HR PRN Reason: Protocol Last Admin: 10/04/16 12:54 Dose: 2 mg/hr, 2 mls/hr Cefepime HCl (Maxipime/Ns 2 Gm/100 Ml) 2 gm in 100 mls @ 200 mls/hr IV Q12HR SADAF PRN Reason: Protocol Last Admin: 10/08/16 09:46 Dose: 200 mls/hr Metronidazole (Flagyl 500 Mg/100 Ml) 500 mg in 100 mls @ 100 mls/hr IV Q8HR [facility] Last Admin: 10/08/16 13:08 Dose: 100 mls/hr Insulin Human Regular (Novolin R) 0 units SUB-Q Q6HR SADAF PRN Reason: Protocol Last Admin: 10/08/16 13:07 Dose: 1 units Multi-Ingred Cream/Lotion/Oil/Oint (Artificial Tears Ophth Oint) 1 applic OU Q4HR PRN PRN Reason: Dry Eye(s) Multivitamins (Theragran Tab) 1 each PO QDAY [facility] Last Admin: 10/08/16 09:47 Dose: 1 each Ondansetron HCl (Zofran) 4 mg IV Q8H PRN PRN Reason: Nausea And Vomiting Last Admin: 09/29/16 23:07 Dose: 4 mg Promethazine HCl (Phenergan) 25 mg KS Q6H PRN PRN Reason: Nausea And Vomiting Last Admin: 09/25/16 22:05 Dose: 25 mg Senna (Senokot) 17.2 mg PO DAILY [facility] Last Admin: 10/08/16 09:47 Dose: 17.2 mg Simple Syrup (Simple Syrup) 15 ml FEEDTUBE PRN PRN PRN Reason: Hypoglycemia Simple Syrup (Simple Syrup) 30 ml FEEDTUBE PRN PRN PRN Reason: Hypoglycemia Sodium Bicarbonate (Sodium Bicarbonate) 325 mg FEEDTUBE PRN PRN PRN Reason: For Clogged Feeding Tube Sodium Chloride (Sodium Chloride Flush Syringe 10 Ml) 10 ml IV PRN PRN PRN Reason: LINE FLUSH Tramadol HCl (Ultram) 50 mg PO Q4H PRN PRN Reason: Pain, Moderate (4-6) Last Admin: 10/06/16 21:54 Dose: 50 mg Valacyclovir HCl (Valtrex) 500 mg PO DAILY [facility] Last Admin: 10/08/16 09:48 Dose: 500 mg Vancomycin HCl (Vancomycin Pharmacy To Dose) 1 each IV PKCONSULT SADAF PRN Reason: Protocol Zolpidem Tartrate (Ambien) 5 mg PO QHS PRN PRN Reason: Sleep - Imaging and cardiology Venous US: report reviewed (No thrombosis left upper extremity)
--- NOTE | 2016-10-08 19:21 | XRay Report ---
FINAL REPORT EXAM: XR ABDOMEN 1V AP HISTORY: abdominal distension TECHNIQUE: Supine views of the abdomen PRIORS: None. FINDINGS: Nasogastric tube terminates in the distal stomach. Surgical clips in the right upper quadrant are noted. The bowel gas pattern is nonspecific. No free air is identified. Soft tissues have no evidence for mass shadows or calcifications. The bony structures demonstrate orthopedic screws in the left acetabular region. Lung bases demonstrate diffuse interstitial prominence bilaterally. This may be acute or chronic. IMPRESSION: 1. Satisfactory nasogastric tube placement. 2. nonspecific, nonobstructive bowel gas pattern with no acute process noted. 3. Incidental interstitial prominence throughout both lung bases which may be acute or chronic.
--- NOTE | 2016-10-09 00:05 | Consultation ---
History of Present Illness - Reason for Consult Consult date: 10/08/16 - History of Present Illness Patient seen/examined earlier on 10/08/16 with a late entry.Patient spouse , case d/w him briefly.Clinically worsening. Past History Past Medical History: anemia (sickle cell anemia) Social history: no significant social history Family history: no significant family history Medications and Allergies Allergies Allergy/AdvReac Type Severity Reaction Status Date / Time No Known Allergies Allergy Unverified 10/13/13 13:21 Home Medications Medication Instructions Recorded Confirmed Last Taken Type Folic Acid [Folvite] 1 mg PO QDAY 10/13/13 09/18/16 09/18/16 History oxyCODONE /ACETAMINOPHEN [Percocet 1 tab PO Q6HR PRN #10 tablet 10/13/1309/18/16 Rx 5/325 mg] Promethazine [Phenergan] 25 mg PO Q6H PRN 08/16/14 09/18/16 09/18/16 History valACYclovir [Valtrex] 500 mg PO DAILY 08/16/14 09/18/16 09/18/16 History Active Meds: Active Medications Acetaminophen (Tylenol) 650 mg PO Q4H PRN PRN Reason: Pain MILD(1-3)/Fever >100.5/PALACIOS Last Admin: 10/07/16 18:13 Dose: 650 mg Albuterol/Ipratropium (Duoneb 0.5 Mg-3 Mg/3 Ml Soln) 1 ampul IH Q6HRT [facility] Last Admin: 10/08/16 21:37 Dose: Not Given Lipase/Protease/Amylase (Fritz Mayers 10,500 Unit) 1 each FEEDTUBE PRN PRN PRN Reason: For Clogged Feeding Tube Arformoterol Tartrate (Brovana Nebu) 15 mcg IH Q12HRT [facility] Last Admin: 10/08/16 21:38 Dose: 15 mcg Aspirin (Aspirin) 325 mg PO QDAY [facility] Last Admin: 10/08/16 09:48 Dose: 325 mg Budesonide (Pulmicort) 0.5 mg IH Q12HRT [facility] Last Admin: 10/08/16 21:39 Dose: 0.5 mg Diphenhydramine HCl (Benadryl) 12.5 mg IV Q4H PRN PRN Reason: Itching Last Admin: 09/30/16 07:02 Dose: 12.5 mg Enoxaparin Sodium (Lovenox) 40 mg SUB-Q QDAY [facility] Last Admin: 10/08/16 09:28 Dose: 40 mg Famotidine (Pepcid) 20 mg PO BID [facility] Last Admin: 10/08/16 21:17 Dose: 20 mg Folic Acid (Folvite) 1 mg PO QDAY [facility] Last Admin: 10/08/16 09:47 Dose: 1 mg Furosemide (Lasix) 40 mg IV QDAY [facility] Last Admin: 10/08/16 09:58 Dose: 40 mg Hydrophilic Ointment (Vaseline Lip Therapy) 1 applic TP Q2HR PRN PRN Reason: Dry Lips Fentanyl Citrate (Fentanyl Drip Premix) 2,000 mcg in 100 mls @ 4.649 mls/hr IV TITR SADAF; 1 MCG/KG/HR PRN Reason: Protocol Last Admin: 10/08/16 17:30 Dose: 2 mcg/kg/hr, 9.299 mls/hr Propofol (Diprivan 10 Mg/Ml) 1,000 mg in 100 mls @ 2.79 mls/hr IV TITR SADAF; 5 MCG/KG/MIN PRN Reason: Protocol Last Admin: 10/08/16 18:26 Dose: 15 mcg/kg/min, 8.369 mls/hr Midazolam HCl 100 mg/ Sodium (Chloride) 100 mls @ 2 mls/hr IV TITR SADAF; 2 MG/HR PRN Reason: Protocol Last Admin: 10/04/16 12:54 Dose: 2 mg/hr, 2 mls/hr Metronidazole (Flagyl 500 Mg/100 Ml) 500 mg in 100 mls @ 100 mls/hr IV Q8HR [facility] Last Admin: 10/08/16 21:17 Dose: 100 mls/hr Insulin Human Regular (Novolin R) 0 units SUB-Q Q6HR [facility] PRN Reason: Protocol Last Admin: 10/08/16 18:40 Dose: 1 units Multi-Ingred Cream/Lotion/Oil/Oint (Artificial Tears Ophth Oint) 1 applic OU Q4HR PRN PRN Reason: Dry Eye(s) Multivitamins (Theragran Tab) 1 each PO QDAY [facility] Last Admin: 10/08/16 09:47 Dose: 1 each Ondansetron HCl (Zofran) 4 mg IV Q8H PRN PRN Reason: Nausea And Vomiting Last Admin: 09/29/16 23:07 Dose: 4 mg Promethazine HCl (Phenergan) 25 mg ND Q6H PRN PRN Reason: Nausea And Vomiting Last Admin: 09/25/16 22:05 Dose: 25 mg Senna (Senokot) 17.2 mg PO DAILY [facility] Last Admin: 10/08/16 09:47 Dose: 17.2 mg Simple Syrup (Simple Syrup) 15 ml FEEDTUBE PRN PRN PRN Reason: Hypoglycemia Simple Syrup (Simple Syrup) 30 ml FEEDTUBE PRN PRN PRN Reason: Hypoglycemia Sodium Bicarbonate (Sodium Bicarbonate) 325 mg FEEDTUBE PRN PRN PRN Reason: For Clogged Feeding Tube Sodium Chloride (Sodium Chloride Flush Syringe 10 Ml) 10 ml IV PRN PRN PRN Reason: LINE FLUSH Tramadol HCl (Ultram) 50 mg PO Q4H PRN PRN Reason: Pain, Moderate (4-6) Last Admin: 10/06/16 21:54 Dose: 50 mg Valacyclovir HCl (Valtrex) 500 mg PO DAILY [facility] Last Admin: 10/08/16 09:48 Dose: 500 mg Zolpidem Tartrate (Ambien) 5 mg PO QHS PRN PRN Reason: Sleep Review of Systems Constitutional: other (on full vent support.) Breasts: deferred Respiratory: other (on full vent support.) Exam - Constitutional Vitals: Temp Pulse Resp BP Pulse Ox 99.9 F H 102 H 13 127/78 85 10/08/16 20:00 10/08/16 22:00 10/08/16 22:00 10/08/16 22:00 10/08/16 22:00 General appearance: Present: severe distress, well-nourished - EENT Eyes: Present: PERRL ENT: hearing intact, clear oral mucosa - Neck Neck: Present: supple, normal ROM - Respiratory Respiratory: bilateral: other (on full vent support.) - Cardiovascular Heart Sounds: Present: S1 & S2. Absent: rub, click - Extremities Extremities: pulses symmetrical, No edema Peripheral Pulses: within normal limits - Abdominal General gastrointestinal: Present: soft, non-tender, non-distended, normal bowel sounds Female genitourinary: Present: deferred - Rectal Rectal Exam: deferred - Integumentary Integumentary: Present: clear, warm, dry Results - Labs CBC & Chem 7: 10/08/16 04:00 10/08/16 04:00 Labs: Abnormal lab results 10/07/16 10/08/16 10/08/16 Range/Units 23:48 04:00 04:00 WBC 58.0 H* (4.5-11.0) K/mm3 RBC 2.95 L (3.65-5.03) M/mm3 Hgb 7.3 L (10.1-14.3) gm/dl Hct 23.4 L (30.3-42.9) % MCH 25 L (28-32) pg RDW 20.8 H (13.2-15.2) % Seg Neuts % (Manual) 75.0 H (40.0-70.0) % Lymphocytes % (Manual) 11.0 L (13.4-35.0) % Monocytes % (Manual) 8.0 H (0.0-7.3) % Nucleated RBC % 30.0 H (0.0-0.9) % Seg Neutrophils # Man 43.5 H (1.8-7.7) K/mm3 Lymphocytes # (Manual) 6.4 H (1.2-5.4) K/mm3 Monocytes # (Manual) 4.6 H (0.0-0.8) K/mm3 Eosinophils # (Manual) 0.6 H (0.0-0.4) K/mm3 POC ABG pO2 (80-105) Sodium 152 H (137-145) mmol/L Chloride 111.4 H (98-107) mmol/L BUN 59 H (7-17) mg/dL Creatinine 1.6 H (0.7-1.2) mg/dL Glucose 190 H (65-100) mg/dL POC Glucose 163 H (70-105) 10/08/16 10/08/16 10/08/16 Range/Units 04:10 04:46 12:11 WBC (4.5-11.0) K/mm3 RBC (3.65-5.03) M/mm3 Hgb (10.1-14.3) gm/dl Hct (30.3-42.9) % MCH (28-32) pg RDW (13.2-15.2) % Seg Neuts % (Manual) (40.0-70.0) % Lymphocytes % (Manual) (13.4-35.0) % Monocytes % (Manual) (0.0-7.3) % Nucleated RBC % (0.0-0.9) % Seg Neutrophils # Man (1.8-7.7) K/mm3 Lymphocytes # (Manual) (1.2-5.4) K/mm3 Monocytes # (Manual) (0.0-0.8) K/mm3 Eosinophils # (Manual) (0.0-0.4) K/mm3 POC ABG pO2 65 L (80-105) Sodium (137-145) mmol/L Chloride (98-107) mmol/L BUN (7-17) mg/dL Creatinine (0.7-1.2) mg/dL Glucose (65-100) mg/dL POC Glucose 214 H 199 H (70-105) 10/08/16 Range/Units 18:35 WBC (4.5-11.0) K/mm3 RBC (3.65-5.03) M/mm3 Hgb (10.1-14.3) gm/dl Hct (30.3-42.9) % MCH (28-32) pg RDW (13.2-15.2) % Seg Neuts % (Manual) (40.0-70.0) % Lymphocytes % (Manual) (13.4-35.0) % Monocytes % (Manual) (0.0-7.3) % Nucleated RBC % (0.0-0.9) % Seg Neutrophils # Man (1.8-7.7) K/mm3 Lymphocytes # (Manual) (1.2-5.4) K/mm3 Monocytes # (Manual) (0.0-0.8) K/mm3 Eosinophils # (Manual) (0.0-0.4) K/mm3 POC ABG pO2 (80-105) Sodium (137-145) mmol/L Chloride (98-107) mmol/L BUN (7-17) mg/dL Creatinine (0.7-1.2) mg/dL Glucose (65-100) mg/dL POC Glucose 187 H (70-105) Assessment and Plan - Patient Problems (1) Arthritis of left hip Current Visit: Yes Status: Deleted Plan to address problem: Follow post surgical management. (2) Avascular necrosis of bone of left hip Current Visit: Yes Status: Deleted Plan to address problem: Post surgical pain management., post surgical anticoagulation. continue same. (3) Sepsis Current Visit: Yes Status: Acute Qualifiers: Sepsis type: sepsis due to unspecified organism Qualified Code(s): A41.9 - Sepsis, unspecified organism Plan to address problem: SEE w/up in the notes. No improvement so far. worsening sepsis. (4) Sleep apnea syndrome Current Visit: Yes Status: Acute Qualifiers: Sleep apnea type: S Plan to address problem: oxygen/BIPAP management. Patient now in full resp failure, and on the vent. (5) UTI (urinary tract infection) Current Visit: Yes Status: Acute Qualifiers: Urinary tract infection type: U Hematuria presence: H Indwelling urinary catheter type: I Encounter type: E Plan to address problem: patient already on abx iv. may need culture sent. culture no growth. (6) Anemia Current Visit: Yes Status: Acute Qualifiers: Anemia type: A Iron deficiency anemia type: I Vitamin B12 deficiency anemia type: V Folate deficiency anemia type: F Bone marrow failure anemia type: B Hemolytic anemia type: H Other causes of anemia: O Plan to address problem: will transfuse if hgb 7.5 or less. no new issues at this time. May transfuse if further drop. (7) Leukocytosis Current Visit: Yes Status: Acute Qualifiers: Leukocytosis type: L Plan to address problem: will order flow, and try leukophoresis.
[2016-10-09] MEDS: fentaNYL DRIP Premix 2,000 MCG/100 ML BAG IV SCH ×3 (01:39→20:31)
[2016-10-09] MEDS: DUONEB 0.5 MG-3 MG/3 ML SOLN IH SCH ×4 (03:42→22:01)
[2016-10-09] MEDS: FLAGYL 500 MG/100 ML 500 MG/100 ML BAG IV SCH ×3 (05:46→21:55)
[2016-10-09] MEDS: DIPRIVAN 10 MG/ML 1,000 MG/100 ML BOTTLE IV SCH ×2 (05:46→14:20)
[2016-10-09 08:21] LABS: Hematocrit 20.7 % (30.3-42.9); Hemoglobin 6.4 gm/dl (10.1-14.3); Mean Corpuscular HGB Conc 31 % (30-34); Mean Corpuscular Volume 81 fl (79-97); Red Blood Count 2.55 M/mm3 (3.65-5.03)
[2016-10-09 08:23] LABS: ISTAT Base Excess 5; ISTAT HCO3 29.7; ISTAT PCO2 45.4 (35-45); ISTAT PH 7.423 (7.35-7.45); ISTAT PO2 52 (80-105); ISTAT SO2 87; ISTAT TCO2 31
[2016-10-09 08:33] LABS: Mean Corpuscular Hemoglobin 25 pg (28-32); Platelet Count 388 K/mm3 (140-440); Red Cell Distribution Width 20.6 % (13.2-15.2); White Blood Count 37.3 K/mm3 (4.5-11.0)
[2016-10-09] MEDS ORDERED: NACL 0.9% 500 ML 500 ML IV ONE (09:33)
[2016-10-09] MEDS: LOVENOX SUB-Q SCH (10:10)
--- NOTE | 2016-10-09 10:10 | Progress Note ---
Assessment and Plan - Patient Problems (1) ARDS (adult respiratory distress syndrome) Current Visit: Yes Status: Acute Plan to address problem: ARDS net protocol with lung protective strategies Continue diuresing as tolerated by renal function and electrolyte profile VTE and stress ulcer prophylaxis Adequate analgesia/agitation management Nutrition- continue Glycemic control (2) Acute respiratory failure with hypoxia Current Visit: Yes Status: Acute Plan to address problem: Continue current therapies. Gentle diuresis as tolerated by BP and renal function (3) Leukemoid reaction Current Visit: Yes Status: Acute Plan to address problem: Antibiotics as per ID service. Discussed extensively with Oncology re the need for definitive diagnosis- discussed the possibility of bone marrow biopsy (4) Acute renal failure due to tubular necrosis Current Visit: Yes Status: Acute (5) Acute hypernatremia Current Visit: Yes Status: Acute Plan to address problem: Free water and monitor closely Correct free water deficit (6) H/O total hip arthroplasty Current Visit: Yes Status: Acute Qualifiers: Laterality: left Qualified Code(s): Z96.642 - Presence of left artificial hip joint Plan to address problem: As per Orthopedic service Subjective Date of service: 10/09/16 Principal diagnosis: Acute Hypoxemic Respiratory Failure; ARDS Interval history: Remains critically ill on mechanical ventilatory support. Patient-ventilator dysynchrony Currently on fentanyl and propofol for sedation/analgesia but tachycaric and hypertensive at the time of my visit. On APRV Ph 45, Plow 8, Th 4sec, Tlow 1.0 Patient seen and examined. Vitals, labs, medications, chart reviewed. Discussed with RN ,RT and multidisciplinary team Objective - Exam Narrative Exam: General: Intubated sedated Ventilator-patient asynchrony HEENT: MMM, EOMI, Proptosis Cardiac: Tacycardia, S1-S2 heard Lungs: Tacypnea, Rhonchorous ventilated breath sounds Abdomen: soft, nontender, nondistended bowel sounds positive Extremities: Hip abductor in place, no edema clubbing or cyanosis Skin: no rash or lesion Neuro: Intubated sedated Vital Signs - 12hr 10/08/16 10/08/16 10/08/16 22:11 22:21 22:30 Temperature Pulse Rate 84 91 H 98 H Pulse Rate [ From Monitor] Respiratory 13 14 13 Rate Blood Pressure 127/78 127/78 137/74 O2 Sat by Pulse 90 89 88 Oximetry 10/08/16 10/08/1617 22:41 22:51 23:00 Temperature Pulse Rate 99 H 104 H 106 H Pulse Rate [ From Monitor] Respiratory 12 13 13 Rate Blood Pressure 137/74 137/74 115/73 O2 Sat by Pulse 88 92 Oximetry 10/08/16 10/08/16 10/08/16 23:11 23:21 23:30 Temperature Pulse Rate 94 H 89 102 H Pulse Rate [ From Monitor] Respiratory 13 13 14 Rate Blood Pressure 115/73 115/73 138/69 O2 Sat by Pulse 91 93 85 Oximetry 10/08/16 10/08/16 10/09/16 23:41 23:51 00:00 Temperature 100.3 F H Pulse Rate 108 H 97 H 101 H Pulse Rate [ 101 H From Monitor] Respiratory 13 13 13 Rate Blood Pressure 138/69 138/69 115/64 O2 Sat by Pulse 93 93 93 Oximetry 10/09/16 10/09/16 10/09/16 00:11 00:20 00:30 Temperature Pulse Rate 92 H 90 100 H Pulse Rate [ From Monitor] Respiratory 13 11 L 13 Rate Blood Pressure 138/69 115/64 129/64 O2 Sat by Pulse 92 91 90 Oximetry 10/09/16 10/09/16 10/09/16 00:41 00:44 00:51 Temperature Pulse Rate 96 H 102 H 96 H Pulse Rate [ From Monitor] Respiratory 13 20 13 Rate Blood Pressure 115/64 115/64 115/64 O2 Sat by Pulse 88 91 92 Oximetry 10/09/16 10/09/16 10/09/16 01:00 01:11 01:21 Temperature Pulse Rate 109 H 102 H 110 H Pulse Rate [ From Monitor] Respiratory 13 13 15 Rate Blood Pressure 122/74 122/74 122/74 O2 Sat by Pulse 92 92 Oximetry 10/09/16 10/09/16 10/09/16 01:30 01:41 01:51 Temperature Pulse Rate 93 H 97 H 98 H Pulse Rate [ From Monitor] Respiratory 13 13 13 Rate Blood Pressure 134/65 134/65 134/65 O2 Sat by Pulse 93 95 94 Oximetry 10/09/16 10/09/16 10/09/16 02:00 02:11 02:21 Temperature Pulse Rate 93 H 94 H 92 H Pulse Rate [ From Monitor] Respiratory 13 13 13 Rate Blood Pressure 95/45 95/45 95/45 O2 Sat by Pulse 94 94 94 Oximetry 10/09/16 10/09/16 10/09/16 02:30 02:41 02:51 Temperature Pulse Rate 89 87 90 Pulse Rate [ From Monitor] Respiratory 13 13 13 Rate Blood Pressure 94/42 94/42 94/42 O2 Sat by Pulse 95 94 93 Oximetry 10/09/16 10/09/16 10/09/16 03:00 03:11 03:21 Temperature Pulse Rate 83 69 98 H Pulse Rate [ From Monitor] Respiratory 13 15 13 Rate Blood Pressure 96/47 96/47 96/47 O2 Sat by Pulse 86 86 Oximetry 10/09/16 10/09/16 10/09/16 03:30 03:41 03:51 Temperature Pulse Rate 111 H 109 H 113 H Pulse Rate [ From Monitor] Respiratory 13 15 13 Rate Blood Pressure 126/78 126/78 126/78 O2 Sat by Pulse 86 84 85 Oximetry 10/09/16 10/09/16 10/09/16 04:00 04:11 04:21 Temperature 100.6 F H Pulse Rate 103 H 103 H 111 H Pulse Rate [ 105 H From Monitor] Respiratory 13 12 13 Rate Blood Pressure 148/83 148/83 148/83 O2 Sat by Pulse 84 88 90 Oximetry 10/09/16 10/09/16 10/09/16 04:30 04:41 04:51 Temperature Pulse Rate 96 H 97 H 105 H Pulse Rate [ From Monitor] Respiratory 13 13 13 Rate Blood Pressure 134/73 134/73 134/73 O2 Sat by Pulse 87 93 100 Oximetry 10/09/16 10/09/16 10/09/16 04:56 05:00 05:11 Temperature Pulse Rate 113 H 103 H 83 Pulse Rate [ From Monitor] Respiratory 26 H 13 13 Rate Blood Pressure 148/83 116/57 116/57 O2 Sat by Pulse 89 97 100 Oximetry 10/09/16 10/09/16 10/09/16 05:21 05:30 05:41 Temperature Pulse Rate 104 H 102 H 105 H Pulse Rate [ From Monitor] Respiratory 13 13 16 Rate Blood Pressure 116/57 124/53 124/53 O2 Sat by Pulse 100 95 98 Oximetry 10/09/16 10/09/16 10/09/16 05:51 06:00 06:11 Temperature Pulse Rate 87 86 103 H Pulse Rate [ From Monitor] Respiratory 13 14 13 Rate Blood Pressure 124/53 141/63 141/63 O2 Sat by Pulse 96 94 96 Oximetry 10/09/16 10/09/16 10/09/16 06:21 06:30 06:41 Temperature Pulse Rate 101 H 100 H 91 H Pulse Rate [ From Monitor] Respiratory 13 13 13 Rate Blood Pressure 141/63 115/66 115/66 O2 Sat by Pulse 96 92 96 Oximetry 10/09/16 10/09/16 10/09/16 06:51 07:00 07:11 Temperature Pulse Rate 96 H 103 H 96 H Pulse Rate [ From Monitor] Respiratory 13 13 13 Rate Blood Pressure 115/66 111/53 111/53 O2 Sat by Pulse 96 95 97 Oximetry 10/09/16 08:00 Temperature 99 F Pulse Rate Pulse Rate [ From Monitor] Respiratory Rate Blood Pressure O2 Sat by Pulse Oximetry Constitutional: appears uncomfortable, other (sedated) Eyes: non-icteric ENT: oropharynx moist Neck: supple, no lymphadenopathy Effort: mildly labored Ascultation: Bilateral: diminished breath sounds, rales, rhonchi Cardiovascular: regular rate and rhythm Gastrointestinal: normoactive bowel sounds, soft, non-tender, non-distended Integumentary: normal Extremities: no cyanosis, no edema, pulses normal, no ischemia or petechiae Neurologic: unable to assess Psychiatric: other (sedated now) CBC and BMP: 10/09/16 07:40 10/09/16 07:40 ABG, PT/INR, D-dimer: ABG POC ABG pH 7.423 (7.35-7.45) 10/09/16 04:43 POC ABG pCO2 45.4 (35-45) H 10/09/16 04:43 POC ABG pO2 52 (80-105) L 10/09/16 04:43 POC ABG HCO3 29.7 10/09/16 04:43 POC ABG Total CO2 31 10/09/16 04:43 POC ABG O2 Sat 87 10/09/16 04:43 PT/INR, D-dimer PT 14.5 Sec. (12.2-14.9) 09/20/16 10:35 INR 1.14 (0.87-1.13) H 09/20/16 10:35 D-Dimer 4758.12 ng/mlDDU (0-234) H 09/27/16 22:47 Abnormal lab findings: Abnormal Labs 09/20/16 09/20/16 09/20/16 10:35 10:35 10:35 WBC 11.7 H RBC Hgb Hct MCV 75 L MCH 24 L RDW 16.6 H Plt Count Seg Neuts % (Manual) Lymphocytes % (Manual) Monocytes % (Manual) Eosinophils % (Manual) Nucleated RBC % Seg Neutrophils # Man Lymphocytes # (Manual) Monocytes # (Manual) Eosinophils # (Manual) Percent Retic INR 1.14 H D-Dimer POC ABG pH POC ABG pCO2 POC ABG pO2 Sodium Potassium Chloride Carbon Dioxide BUN Creatinine 0.5 L Glucose 115 H POC Glucose Lactic Acid Calcium Total Bilirubin 2.0 H Lactate Dehydrogenase Total Creatine Kinase CK-MB (CK-2) C-Reactive Protein NT-Pro-B Natriuret Pep Total Protein Albumin Urine WBC (Auto) Urine Creatinine Urine Total Protein Vancomycin Trough Random Vancomycin Crossmatch 09/26/16 09/26/16 09/27/16 04:26 04:26 10:26 WBC RBC Hgb 8.9 L Hct 28.0 L MCV MCH RDW Plt Count Seg Neuts % (Manual) Lymphocytes % (Manual) Monocytes % (Manual) Eosinophils % (Manual) Nucleated RBC % Seg Neutrophils # Man Lymphocytes # (Manual) Monocytes # (Manual) Eosinophils # (Manual) Percent Retic INR D-Dimer POC ABG pH 7.283 L POC ABG pCO2 45.3 H POC ABG pO2 79 L Sodium Potassium Chloride Carbon Dioxide 20 L BUN Creatinine Glucose 129 H POC Glucose Lactic Acid Calcium 7.6 L Total Bilirubin Lactate Dehydrogenase Total Creatine Kinase CK-MB (CK-2) C-Reactive Protein NT-Pro-B Natriuret Pep Total Protein Albumin Urine WBC (Auto) Urine Creatinine Urine Total Protein Vancomycin Trough Random Vancomycin Crossmatch 09/27/16 09/27/16 09/27/16 14:40 14:40 15:14 WBC 39.3 H RBC Hgb 9.3 L Hct 28.9 L MCV 75 L MCH 24 L RDW 18.7 H Plt Count Seg Neuts % (Manual) 93.5 H Lymphocytes % (Manual) 5.0 L Monocytes % (Manual) Eosinophils % (Manual) Nucleated RBC % Seg Neutrophils # Man 36.7 H Lymphocytes # (Manual) Monocytes # (Manual) Eosinophils # (Manual) Percent Retic INR D-Dimer POC ABG pH POC ABG pCO2 POC ABG pO2 Sodium Potassium Chloride Carbon Dioxide BUN Creatinine Glucose POC Glucose Lactic Acid 2.9 H* Calcium Total Bilirubin Lactate Dehydrogenase Total Creatine Kinase 3575 H CK-MB (CK-2) 11.0 H C-Reactive Protein 16.10 H NT-Pro-B Natriuret Pep Total Protein Albumin Urine WBC (Auto) Urine Creatinine Urine Total Protein Vancomycin Trough Random Vancomycin Crossmatch 09/27/16 09/27/16 09/27/16 18:05 22:47 22:47 WBC RBC Hgb Hct MCV MCH RDW Plt Count Seg Neuts % (Manual) Lymphocytes % (Manual) Monocytes % (Manual) Eosinophils % (Manual) Nucleated RBC % Seg Neutrophils # Man Lymphocytes # (Manual) Monocytes # (Manual) Eosinophils # (Manual) Percent Retic INR D-Dimer 4758.12 H POC ABG pH POC ABG pCO2 POC ABG pO2 70 L Sodium Potassium Chloride Carbon Dioxide BUN Creatinine Glucose POC Glucose Lactic Acid Calcium Total Bilirubin Lactate Dehydrogenase 829 H Total Creatine Kinase CK-MB (CK-2) C-Reactive Protein NT-Pro-B Natriuret Pep Total Protein Albumin Urine WBC (Auto) Urine Creatinine Urine Total Protein Vancomycin Trough Random Vancomycin Crossmatch 09/27/16 09/28/16 09/28/16 22:47 09:20 10:47 WBC RBC Hgb Hct MCV MCH RDW Plt Count Seg Neuts % (Manual) Lymphocytes % (Manual) Monocytes % (Manual) Eosinophils % (Manual) Nucleated RBC % Seg Neutrophils # Man Lymphocytes # (Manual) Monocytes # (Manual) Eosinophils # (Manual) Percent Retic 8.11 H INR D-Dimer POC ABG pH POC ABG pCO2 47.2 H POC ABG pO2 70 L Sodium Potassium Chloride Carbon Dioxide BUN Creatinine 0.6 L Glucose 137 H POC Glucose Lactic Acid Calcium Total Bilirubin Lactate Dehydrogenase Total Creatine Kinase CK-MB (CK-2) C-Reactive Protein NT-Pro-B Natriuret Pep Total Protein Albumin Urine WBC (Auto) Urine Creatinine Urine Total Protein Vancomycin Trough Random Vancomycin Crossmatch 09/28/16 09/30/16 09/30/16 10:47 11:01 14:05 WBC 30.3 H RBC 3.27 L Hgb 8.1 L Hct 24.4 L MCV 75 L MCH 25 L RDW 18.9 H Plt Count Seg Neuts % (Manual) Lymphocytes % (Manual) 12.0 L Monocytes % (Manual) Eosinophils % (Manual) Nucleated RBC % 5.0 H Seg Neutrophils # Man 21.2 H Lymphocytes # (Manual) Monocytes # (Manual) 1.8 H Eosinophils # (Manual) Percent Retic INR D-Dimer POC ABG pH POC ABG pCO2 48.8 H POC ABG pO2 52 L Sodium Potassium Chloride Carbon Dioxide BUN Creatinine Glucose POC Glucose Lactic Acid Calcium Total Bilirubin Lactate Dehydrogenase Total Creatine Kinase CK-MB (CK-2) C-Reactive Protein NT-Pro-B Natriuret Pep 2018 H Total Protein Albumin Urine WBC (Auto) Urine Creatinine Urine Total Protein Vancomycin Trough Random Vancomycin Crossmatch 09/30/16 09/30/16 09/30/16 14:05 14:05 14:05 WBC 22.1 H RBC 2.76 L Hgb 6.9 L Hct 20.6 L MCV 75 L MCH 25 L RDW 18.7 H Plt Count Seg Neuts % (Manual) 74.0 H Lymphocytes % (Manual) 7.0 L Monocytes % (Manual) Eosinophils % (Manual) Nucleated RBC % 52.0 H Seg Neutrophils # Man 16.4 H Lymphocytes # (Manual) Monocytes # (Manual) Eosinophils # (Manual) Percent Retic INR D-Dimer POC ABG pH POC ABG pCO2 POC ABG pO2 Sodium Potassium 3.1 L Chloride Carbon Dioxide BUN Creatinine 0.5 L Glucose 116 H POC Glucose Lactic Acid Calcium 8.2 L Total Bilirubin Lactate Dehydrogenase Total Creatine Kinase CK-MB (CK-2) C-Reactive Protein 30.80 H NT-Pro-B Natriuret Pep Total Protein Albumin Urine WBC (Auto) Urine Creatinine Urine Total Protein Vancomycin Trough Random Vancomycin Crossmatch 09/30/16 10/01/16 10/01/16 14:33 00:55 00:55 WBC 26.1 H RBC 2.80 L Hgb 6.8 L Hct 20.8 L MCV 74 L MCH 24 L RDW 18.6 H Plt Count Seg Neuts % (Manual) 85.0 H Lymphocytes % (Manual) 11.0 L Monocytes % (Manual) Eosinophils % (Manual) Nucleated RBC % 21.0 H Seg Neutrophils # Man 22.2 H Lymphocytes # (Manual) Monocytes # (Manual) 1.0 H Eosinophils # (Manual) Percent Retic INR D-Dimer POC ABG pH POC ABG pCO2 47.8 H POC ABG pO2 201 H Sodium Potassium Chloride Carbon Dioxide BUN Creatinine Glucose POC Glucose Lactic Acid Calcium Total Bilirubin Lactate Dehydrogenase Total Creatine Kinase CK-MB (CK-2) C-Reactive Protein NT-Pro-B Natriuret Pep Total Protein Albumin Urine WBC (Auto) Urine Creatinine Urine Total Protein Vancomycin Trough Random Vancomycin Crossmatch See Detail 10/01/16 10/01/16 10/01/16 04:57 05:00 13:01 WBC RBC Hgb Hct MCV MCH RDW Plt Count Seg Neuts % (Manual) Lymphocytes % (Manual) Monocytes % (Manual) Eosinophils % (Manual) Nucleated RBC % Seg Neutrophils # Man Lymphocytes # (Manual) Monocytes # (Manual) Eosinophils # (Manual) Percent Retic INR D-Dimer POC ABG pH POC ABG pCO2 58.5 H POC ABG pO2 149 H Sodium 149 H Potassium 3.0 L Chloride Carbon Dioxide BUN Creatinine Glucose POC Glucose 120 H Lactic Acid Calcium 8.3 L Total Bilirubin Lactate Dehydrogenase Total Creatine Kinase CK-MB (CK-2) C-Reactive Protein NT-Pro-B Natriuret Pep Total Protein Albumin Urine WBC (Auto) Urine Creatinine Urine Total Protein Vancomycin Trough Random Vancomycin Crossmatch 10/01/16 10/01/16 10/01/16 15:43 17:44 23:37 WBC 27.6 H RBC 3.55 L Hgb 8.9 L Hct 27.6 L D MCV 78 L D MCH 25 L RDW 18.1 H Plt Count Seg Neuts % (Manual) 79.5 H Lymphocytes % (Manual) 8.0 L Monocytes % (Manual) Eosinophils % (Manual) Nucleated RBC % 65.0 H Seg Neutrophils # Man 21.9 H Lymphocytes # (Manual) Monocytes # (Manual) 1.0 H Eosinophils # (Manual) Percent Retic INR D-Dimer POC ABG pH POC ABG pCO2 POC ABG pO2 Sodium Potassium Chloride Carbon Dioxide BUN Creatinine Glucose POC Glucose 121 H 129 H Lactic Acid Calcium Total Bilirubin Lactate Dehydrogenase Total Creatine Kinase CK-MB (CK-2) C-Reactive Protein NT-Pro-B Natriuret Pep Total Protein Albumin Urine WBC (Auto) Urine Creatinine Urine Total Protein Vancomycin Trough Random Vancomycin Crossmatch 10/02/16 10/02/16 10/02/16 05:05 05:40 06:00 WBC 23.0 H RBC 3.30 L Hgb 8.3 L Hct 25.8 L MCV 78 L MCH 25 L RDW 18.2 H Plt Count Seg Neuts % (Manual) 83.5 H Lymphocytes % (Manual) 4.0 L Monocytes % (Manual) Eosinophils % (Manual) Nucleated RBC % 14.5 H Seg Neutrophils # Man 25.1 H Lymphocytes # (Manual) Monocytes # (Manual) 1.7 H Eosinophils # (Manual) Percent Retic INR D-Dimer POC ABG pH POC ABG pCO2 50.5 H POC ABG pO2 Sodium Potassium Chloride Carbon Dioxide BUN Creatinine Glucose POC Glucose 123 H Lactic Acid Calcium Total Bilirubin Lactate Dehydrogenase Total Creatine Kinase CK-MB (CK-2) C-Reactive Protein NT-Pro-B Natriuret Pep Total Protein Albumin Urine WBC (Auto) Urine Creatinine Urine Total Protein Vancomycin Trough Random Vancomycin Crossmatch 10/02/16 10/02/16 10/02/16 06:00 11:42 21:52 WBC RBC Hgb Hct MCV MCH RDW Plt Count Seg Neuts % (Manual) Lymphocytes % (Manual) Monocytes % (Manual) Eosinophils % (Manual) Nucleated RBC % Seg Neutrophils # Man Lymphocytes # (Manual) Monocytes # (Manual) Eosinophils # (Manual) Percent Retic INR D-Dimer POC ABG pH 7.324 L POC ABG pCO2 60.5 H POC ABG pO2 74 L Sodium 150 H Potassium Chloride 108.3 H Carbon Dioxide BUN 20 H Creatinine 1.4 H D Glucose 117 H POC Glucose 135 H Lactic Acid Calcium Total Bilirubin Lactate Dehydrogenase Total Creatine Kinase CK-MB (CK-2) C-Reactive Protein NT-Pro-B Natriuret Pep Total Protein Albumin Urine WBC (Auto) Urine Creatinine Urine Total Protein Vancomycin Trough Random Vancomycin Crossmatch 10/02/16 10/03/16 10/03/16 23:26 05:55 08:17 WBC 32.0 H RBC 3.13 L Hgb 7.9 L Hct 24.6 L MCV MCH 25 L RDW 18.9 H Plt Count 132 L Seg Neuts % (Manual) 75.0 H Lymphocytes % (Manual) 5.0 L Monocytes % (Manual) Eosinophils % (Manual) Nucleated RBC % 26.0 H Seg Neutrophils # Man 24.0 H Lymphocytes # (Manual) Monocytes # (Manual) 1.0 H Eosinophils # (Manual) 1.0 H Percent Retic INR D-Dimer POC ABG pH POC ABG pCO2 POC ABG pO2 Sodium Potassium Chloride Carbon Dioxide BUN Creatinine Glucose POC Glucose 121 H 145 H Lactic Acid Calcium Total Bilirubin Lactate Dehydrogenase Total Creatine Kinase CK-MB (CK-2) C-Reactive Protein NT-Pro-B Natriuret Pep Total Protein Albumin Urine WBC (Auto) Urine Creatinine Urine Total Protein Vancomycin Trough Random Vancomycin Crossmatch 10/03/16 10/03/16 10/03/16 08:17 09:26 11:34 WBC RBC Hgb Hct MCV MCH RDW Plt Count Seg Neuts % (Manual) Lymphocytes % (Manual) Monocytes % (Manual) Eosinophils % (Manual) Nucleated RBC % Seg Neutrophils # Man Lymphocytes # (Manual) Monocytes # (Manual) Eosinophils # (Manual) Percent Retic INR D-Dimer POC ABG pH 7.274 L POC ABG pCO2 59.7 H POC ABG pO2 58 L Sodium 147 H Potassium Chloride 107.6 H Carbon Dioxide BUN 31 H Creatinine 1.7 H Glucose 118 H POC Glucose 142 H Lactic Acid Calcium Total Bilirubin Lactate Dehydrogenase Total Creatine Kinase CK-MB (CK-2) C-Reactive Protein NT-Pro-B Natriuret Pep Total Protein Albumin Urine WBC (Auto) Urine Creatinine Urine Total Protein Vancomycin Trough Random Vancomycin Crossmatch 10/03/16 10/03/16 10/03/16 15:54 15:54 16:58 WBC RBC Hgb Hct MCV MCH RDW Plt Count Seg Neuts % (Manual) Lymphocytes % (Manual) Monocytes % (Manual) Eosinophils % (Manual) Nucleated RBC % Seg Neutrophils # Man Lymphocytes # (Manual) Monocytes # (Manual) Eosinophils # (Manual) Percent Retic INR D-Dimer POC ABG pH POC ABG pCO2 POC ABG pO2 Sodium Potassium Chloride Carbon Dioxide BUN Creatinine Glucose POC Glucose 138 H Lactic Acid Calcium Total Bilirubin Lactate Dehydrogenase Total Creatine Kinase CK-MB (CK-2) C-Reactive Protein NT-Pro-B Natriuret Pep Total Protein Albumin Urine WBC (Auto) 21.0 H Urine Creatinine 63.2 H Urine Total Protein 67 H Vancomycin Trough Random Vancomycin Crossmatch 10/03/16 10/03/16 10/04/16 21:37 23:44 04:00 WBC 30.3 H RBC 2.86 L Hgb 7.3 L Hct 22.6 L MCV MCH 25 L RDW 19.6 H Plt Count 125 L Seg Neuts % (Manual) Lymphocytes % (Manual) 12.0 L Monocytes % (Manual) Eosinophils % (Manual) 5.0 H Nucleated RBC % 30.0 H Seg Neutrophils # Man 12.7 H Lymphocytes # (Manual) Monocytes # (Manual) 1.2 H Eosinophils # (Manual) 1.5 H Percent Retic INR D-Dimer POC ABG pH 7.271 L POC ABG pCO2 61.7 H POC ABG pO2 77 L Sodium Potassium Chloride Carbon Dioxide BUN Creatinine Glucose POC Glucose 130 H Lactic Acid Calcium Total Bilirubin Lactate Dehydrogenase Total Creatine Kinase CK-MB (CK-2) C-Reactive Protein NT-Pro-B Natriuret Pep Total Protein Albumin Urine WBC (Auto) Urine Creatinine Urine Total Protein Vancomycin Trough Random Vancomycin Crossmatch 10/04/16 10/04/16 10/04/16 04:03 06:02 12:29 WBC RBC Hgb Hct MCV MCH RDW Plt Count Seg Neuts % (Manual) Lymphocytes % (Manual) Monocytes % (Manual) Eosinophils % (Manual) Nucleated RBC % Seg Neutrophils # Man Lymphocytes # (Manual) Monocytes # (Manual) Eosinophils # (Manual) Percent Retic INR D-Dimer POC ABG pH 7.248 L POC ABG pCO2 62.3 H POC ABG pO2 59 L Sodium Potassium Chloride Carbon Dioxide BUN 40 H Creatinine 1.7 H Glucose 110 H POC Glucose 123 H Lactic Acid Calcium Total Bilirubin Lactate Dehydrogenase Total Creatine Kinase CK-MB (CK-2) C-Reactive Protein NT-Pro-B Natriuret Pep Total Protein 5.6 L Albumin 2.1 L Urine WBC (Auto) Urine Creatinine Urine Total Protein Vancomycin Trough Random Vancomycin Crossmatch 10/04/16 10/04/16 10/04/16 12:39 15:14 17:45 WBC RBC Hgb Hct MCV MCH RDW Plt Count Seg Neuts % (Manual) Lymphocytes % (Manual) Monocytes % (Manual) Eosinophils % (Manual) Nucleated RBC % Seg Neutrophils # Man Lymphocytes # (Manual) Monocytes # (Manual) Eosinophils # (Manual) Percent Retic INR D-Dimer POC ABG pH POC ABG pCO2 POC ABG pO2 109 H Sodium Potassium Chloride Carbon Dioxide BUN Creatinine Glucose POC Glucose 124 H Lactic Acid Calcium Total Bilirubin Lactate Dehydrogenase Total Creatine Kinase CK-MB (CK-2) C-Reactive Protein NT-Pro-B Natriuret Pep Total Protein Albumin Urine WBC (Auto) Urine Creatinine Urine Total Protein Vancomycin Trough 45.5 H Random Vancomycin Crossmatch 10/04/16 10/04/16 10/05/16 20:13 23:05 01:27 WBC 36.1 H RBC 2.99 L Hgb 7.3 L Hct 23.5 L MCV MCH 25 L RDW 19.6 H Plt Count Seg Neuts % (Manual) Lymphocytes % (Manual) Monocytes % (Manual) Eosinophils % (Manual) Nucleated RBC % Seg Neutrophils # Man Lymphocytes # (Manual) Monocytes # (Manual) Eosinophils # (Manual) Percent Retic INR D-Dimer POC ABG pH 7.341 L POC ABG pCO2 POC ABG pO2 47 L Sodium Potassium Chloride Carbon Dioxide BUN Creatinine Glucose POC Glucose 127 H Lactic Acid Calcium Total Bilirubin Lactate Dehydrogenase Total Creatine Kinase CK-MB (CK-2) C-Reactive Protein NT-Pro-B Natriuret Pep Total Protein Albumin Urine WBC (Auto) Urine Creatinine Urine Total Protein Vancomycin Trough Random Vancomycin Crossmatch 10/05/16 10/05/16 10/05/16 01:27 03:50 05:00 WBC RBC Hgb Hct MCV MCH RDW Plt Count Seg Neuts % (Manual) Lymphocytes % (Manual) Monocytes % (Manual) Eosinophils % (Manual) Nucleated RBC % Seg Neutrophils # Man Lymphocytes # (Manual) Monocytes # (Manual) Eosinophils # (Manual) Percent Retic INR D-Dimer POC ABG pH 7.330 L POC ABG pCO2 45.3 H POC ABG pO2 53 L Sodium Potassium Chloride Carbon Dioxide BUN 49 H Creatinine 1.6 H Glucose 112 H POC Glucose Lactic Acid Calcium Total Bilirubin Lactate Dehydrogenase Total Creatine Kinase CK-MB (CK-2) C-Reactive Protein NT-Pro-B Natriuret Pep Total Protein Albumin Urine WBC (Auto) Urine Creatinine Urine Total Protein Vancomycin Trough Random Vancomycin 43.6 H Crossmatch 10/05/16 10/05/16 10/05/16 05:30 12:08 14:00 WBC RBC Hgb Hct MCV MCH RDW Plt Count Seg Neuts % (Manual) Lymphocytes % (Manual) Monocytes % (Manual) Eosinophils % (Manual) Nucleated RBC % Seg Neutrophils # Man Lymphocytes # (Manual) Monocytes # (Manual) Eosinophils # (Manual) Percent Retic INR D-Dimer POC ABG pH POC ABG pCO2 POC ABG pO2 Sodium Potassium Chloride Carbon Dioxide BUN Creatinine Glucose POC Glucose 141 H 149 H Lactic Acid Calcium Total Bilirubin Lactate Dehydrogenase Total Creatine Kinase CK-MB (CK-2) C-Reactive Protein 28.40 H NT-Pro-B Natriuret Pep Total Protein Albumin Urine WBC (Auto) Urine Creatinine Urine Total Protein Vancomycin Trough Random Vancomycin Crossmatch 05/06/17 05/06/17 05/06/17 15:37 16:41 17:15 WBC RBC Hgb Hct MCV MCH RDW Plt Count Seg Neuts % (Manual) Lymphocytes % (Manual) Monocytes % (Manual) Eosinophils % (Manual) Nucleated RBC % Seg Neutrophils # Man Lymphocytes # (Manual) Monocytes # (Manual) Eosinophils # (Manual) Percent Retic INR D-Dimer POC ABG pH 7.157 L 7.133 L POC ABG pCO2 75.0 H 80.5 H POC ABG pO2 76 L Sodium Potassium Chloride Carbon Dioxide BUN Creatinine Glucose POC Glucose 151 H Lactic Acid Calcium Total Bilirubin Lactate Dehydrogenase Total Creatine Kinase CK-MB (CK-2) C-Reactive Protein NT-Pro-B Natriuret Pep Total Protein Albumin Urine WBC (Auto) Urine Creatinine Urine Total Protein Vancomycin Trough Random Vancomycin Crossmatch 10/05/16 10/05/16 10/06/16 19:58 23:50 03:57 WBC 45.3 H* RBC 3.08 L Hgb 7.5 L Hct 24.5 L MCV MCH 25 L RDW 20.1 H Plt Count Seg Neuts % (Manual) 24.0 L Lymphocytes % (Manual) 10.0 L Monocytes % (Manual) Eosinophils % (Manual) Nucleated RBC % 36.0 H Seg Neutrophils # Man 10.9 H Lymphocytes # (Manual) Monocytes # (Manual) 3.2 H Eosinophils # (Manual) 0.5 H Percent Retic INR D-Dimer POC ABG pH 7.198 L POC ABG pCO2 69.5 H POC ABG pO2 Sodium Potassium Chloride Carbon Dioxide BUN Creatinine Glucose POC Glucose 160 H Lactic Acid Calcium Total Bilirubin Lactate Dehydrogenase Total Creatine Kinase CK-MB (CK-2) C-Reactive Protein NT-Pro-B Natriuret Pep Total Protein Albumin Urine WBC (Auto) Urine Creatinine Urine Total Protein Vancomycin Trough Random Vancomycin Crossmatch 10/06/16 10/06/16 10/06/16 03:57 05:38 06:08 WBC RBC Hgb Hct MCV MCH RDW Plt Count Seg Neuts % (Manual) Lymphocytes % (Manual) Monocytes % (Manual) Eosinophils % (Manual) Nucleated RBC % Seg Neutrophils # Man Lymphocytes # (Manual) Monocytes # (Manual) Eosinophils # (Manual) Percent Retic INR D-Dimer POC ABG pH 7.226 L POC ABG pCO2 63.3 H POC ABG pO2 Sodium 152 H D Potassium Chloride 114.1 H Carbon Dioxide BUN 58 H Creatinine 1.6 H Glucose 123 H POC Glucose 129 H Lactic Acid Calcium Total Bilirubin Lactate Dehydrogenase Total Creatine Kinase CK-MB (CK-2) C-Reactive Protein NT-Pro-B Natriuret Pep Total Protein Albumin Urine WBC (Auto) Urine Creatinine Urine Total Protein Vancomycin Trough Random Vancomycin Crossmatch 10/06/16 10/06/16 10/06/16 11:38 14:31 18:10 WBC RBC Hgb Hct MCV MCH RDW Plt Count Seg Neuts % (Manual) Lymphocytes % (Manual) Monocytes % (Manual) Eosinophils % (Manual) Nucleated RBC % Seg Neutrophils # Man Lymphocytes # (Manual) Monocytes # (Manual) Eosinophils # (Manual) Percent Retic INR D-Dimer POC ABG pH 7.345 L POC ABG pCO2 49.5 H POC ABG pO2 60 L Sodium Potassium Chloride Carbon Dioxide BUN Creatinine Glucose POC Glucose 126 H 196 H Lactic Acid Calcium Total Bilirubin Lactate Dehydrogenase Total Creatine Kinase CK-MB (CK-2) C-Reactive Protein NT-Pro-B Natriuret Pep Total Protein Albumin Urine WBC (Auto) Urine Creatinine Urine Total Protein Vancomycin Trough Random Vancomycin Crossmatch 10/06/16 10/07/16 10/07/16 21:07 00:55 00:55 WBC 55.1 H* RBC 3.06 L Hgb 7.5 L Hct 24.4 L MCV MCH 24 L RDW 20.7 H Plt Count Seg Neuts % (Manual) Lymphocytes % (Manual) 8.0 L Monocytes % (Manual) 9.0 H Eosinophils % (Manual) Nucleated RBC % 30.0 H Seg Neutrophils # Man 27.0 H Lymphocytes # (Manual) Monocytes # (Manual) 5.0 H Eosinophils # (Manual) 0.6 H Percent Retic INR D-Dimer POC ABG pH 7.317 L POC ABG pCO2 55.2 H POC ABG pO2 59 L Sodium 148 H Potassium Chloride 110.2 H Carbon Dioxide BUN 56 H Creatinine 1.7 H Glucose 211 H POC Glucose Lactic Acid Calcium Total Bilirubin Lactate Dehydrogenase Total Creatine Kinase CK-MB (CK-2) C-Reactive Protein NT-Pro-B Natriuret Pep Total Protein Albumin Urine WBC (Auto) Urine Creatinine Urine Total Protein Vancomycin Trough Random Vancomycin Crossmatch 10/07/16 10/07/16 10/07/16 01:01 05:20 06:31 WBC RBC Hgb Hct MCV MCH RDW Plt Count Seg Neuts % (Manual) Lymphocytes % (Manual) Monocytes % (Manual) Eosinophils % (Manual) Nucleated RBC % Seg Neutrophils # Man Lymphocytes # (Manual) Monocytes # (Manual) Eosinophils # (Manual) Percent Retic INR D-Dimer POC ABG pH 7.310 L POC ABG pCO2 55.6 H POC ABG pO2 65 L Sodium Potassium Chloride Carbon Dioxide BUN Creatinine Glucose POC Glucose 249 H 235 H Lactic Acid Calcium Total Bilirubin Lactate Dehydrogenase Total Creatine Kinase CK-MB (CK-2) C-Reactive Protein NT-Pro-B Natriuret Pep Total Protein Albumin Urine WBC (Auto) Urine Creatinine Urine Total Protein Vancomycin Trough Random Vancomycin Crossmatch 10/07/16 10/07/16 10/07/16 12:00 18:04 23:48 WBC RBC Hgb Hct MCV MCH RDW Plt Count Seg Neuts % (Manual) Lymphocytes % (Manual) Monocytes % (Manual) Eosinophils % (Manual) Nucleated RBC % Seg Neutrophils # Man Lymphocytes # (Manual) Monocytes # (Manual) Eosinophils # (Manual) Percent Retic INR D-Dimer POC ABG pH POC ABG pCO2 POC ABG pO2 Sodium Potassium Chloride Carbon Dioxide BUN Creatinine Glucose POC Glucose 210 H 201 H 163 H Lactic Acid Calcium Total Bilirubin Lactate Dehydrogenase Total Creatine Kinase CK-MB (CK-2) C-Reactive Protein NT-Pro-B Natriuret Pep Total Protein Albumin Urine WBC (Auto) Urine Creatinine Urine Total Protein Vancomycin Trough Random Vancomycin Crossmatch 10/08/16 10/08/16 10/08/16 04:00 04:00 04:10 WBC 58.0 H* RBC 2.95 L Hgb 7.3 L Hct 23.4 L MCV MCH 25 L RDW 20.8 H Plt Count Seg Neuts % (Manual) 75.0 H Lymphocytes % (Manual) 11.0 L Monocytes % (Manual) 8.0 H Eosinophils % (Manual) Nucleated RBC % 30.0 H Seg Neutrophils # Man 43.5 H Lymphocytes # (Manual) 6.4 H Monocytes # (Manual) 4.6 H Eosinophils # (Manual) 0.6 H Percent Retic INR D-Dimer POC ABG pH POC ABG pCO2 POC ABG pO2 Sodium 152 H Potassium Chloride 111.4 H Carbon Dioxide BUN 59 H Creatinine 1.6 H Glucose 190 H POC Glucose 214 H Lactic Acid Calcium Total Bilirubin Lactate Dehydrogenase Total Creatine Kinase CK-MB (CK-2) C-Reactive Protein NT-Pro-B Natriuret Pep Total Protein Albumin Urine WBC (Auto) Urine Creatinine Urine Total Protein Vancomycin Trough Random Vancomycin Crossmatch 10/08/16 10/08/16 10/08/16 04:46 12:11 18:35 WBC RBC Hgb Hct MCV MCH RDW Plt Count Seg Neuts % (Manual) Lymphocytes % (Manual) Monocytes % (Manual) Eosinophils % (Manual) Nucleated RBC % Seg Neutrophils # Man Lymphocytes # (Manual) Monocytes # (Manual) Eosinophils # (Manual) Percent Retic INR D-Dimer POC ABG pH POC ABG pCO2 POC ABG pO2 65 L Sodium Potassium Chloride Carbon Dioxide BUN Creatinine Glucose POC Glucose 199 H 187 H Lactic Acid Calcium Total Bilirubin Lactate Dehydrogenase Total Creatine Kinase CK-MB (CK-2) C-Reactive Protein NT-Pro-B Natriuret Pep Total Protein Albumin Urine WBC (Auto) Urine Creatinine Urine Total Protein Vancomycin Trough Random Vancomycin Crossmatch 10/08/16 10/09/16 10/09/16 23:38 04:43 05:38 WBC RBC Hgb Hct MCV MCH RDW Plt Count Seg Neuts % (Manual) Lymphocytes % (Manual) Monocytes % (Manual) Eosinophils % (Manual) Nucleated RBC % Seg Neutrophils # Man Lymphocytes # (Manual) Monocytes # (Manual) Eosinophils # (Manual) Percent Retic INR D-Dimer POC ABG pH POC ABG pCO2 45.4 H POC ABG pO2 52 L Sodium Potassium Chloride Carbon Dioxide BUN Creatinine Glucose POC Glucose 202 H 182 H Lactic Acid Calcium Total Bilirubin Lactate Dehydrogenase Total Creatine Kinase CK-MB (CK-2) C-Reactive Protein NT-Pro-B Natriuret Pep Total Protein Albumin Urine WBC (Auto) Urine Creatinine Urine Total Protein Vancomycin Trough Random Vancomycin Crossmatch 10/09/16 07:40 WBC 37.3 H RBC 2.55 L Hgb 6.4 L Hct 20.7 L MCV MCH 25 L RDW 20.6 H Plt Count Seg Neuts % (Manual) Lymphocytes % (Manual) Monocytes % (Manual) Eosinophils % (Manual) Nucleated RBC % Seg Neutrophils # Man Lymphocytes # (Manual) Monocytes # (Manual) Eosinophils # (Manual) Percent Retic INR D-Dimer POC ABG pH POC ABG pCO2 POC ABG pO2 Sodium Potassium Chloride Carbon Dioxide BUN Creatinine Glucose POC Glucose Lactic Acid Calcium Total Bilirubin Lactate Dehydrogenase Total Creatine Kinase CK-MB (CK-2) C-Reactive Protein NT-Pro-B Natriuret Pep Total Protein Albumin Urine WBC (Auto) Urine Creatinine Urine Total Protein Vancomycin Trough Random Vancomycin Crossmatch Allied health notes reviewed: RT Critical care time in (mins) excluding proc time.: 35 Critical care attestation.: If time is entered above; I have spent that time in minutes in the direct care of this critically ill patient, excluding procedure time.
[2016-10-09] MEDS: SENOKOT PO SCH (10:11)
[2016-10-09] MEDS: FOLVITE PO SCH (10:12)
[2016-10-09] MEDS: ASPIRIN PO SCH (10:12)
[2016-10-09] MEDS: VALTREX PO SCH (10:13)
[2016-10-09] MEDS: PEPCID PO SCH ×2 (10:13→21:56)
[2016-10-09] MEDS: LASIX IV SCH ×2 (10:18→18:00)
[2016-10-09 10:27] LABS: BUN/Creatinine Ratio 36.47; Calcium 8.8 mg/dL (8.4-10.2); Chloride 112.7 mmol/L (98-107); Potassium 3.3 mmol/L (3.6-5.0)
[2016-10-09] MEDS: BROVANA NEBU IH SCH ×2 (10:29→22:00)
[2016-10-09] MEDS: PULMICORT IH SCH ×2 (10:29→22:00)
--- NOTE | 2016-10-09 11:26 | Progress Note ---
Assessment and Plan - Patient Problems (1) Acute respiratory failure with hypoxia Current Visit: Yes Status: Acute Plan to address problem: 1. Bacterial and HSV sputum cultures are negative. Several viral results are still pending, however, but treatment of most pending studies is supportive. 2. If patient clinically deteriorates or has persistent fevers, please start either renally adjusted Ceftaroline or Meropenem. (2) Acute renal failure due to tubular necrosis Current Visit: Yes Status: Acute Plan to address problem: Renally adjusted meds. (3) Leukemoid reaction Current Visit: Yes Status: Acute Plan to address problem: 1. Improved today OFF broad antimicrobials. 2. Will continue to monitor on Flagyl monotherapy. Subjective Date of service: 10/09/16 Principal diagnosis: Acute Hypoxemic Respiratory Failure; ARDS Interval history: Patient remains intubated in ICU. Low-grade fever this AM. No new localizing issues. Objective - Constitutional Vitals: Vital Signs Temp Pulse Resp BP Pulse Ox 99 F 105 H 26 H 122/60 95 10/09/16 08:00 10/09/16 10:38 10/09/16 10:38 10/09/16 10:22 10/09/16 10:22 Temperature -Last 24 Hours Temperature 99 F Temperature 100.6 F Temperature 100.3 F Temperature 99.9 F Temperature 100.3 F Temperature 98.7 F General appearance: Present: mild distress (accessory muscle use on vent), obese - Neck Neck: supple - Respiratory Respiratory: bilateral: CTA, diminished (secondry to body habitus) - Cardiovascular Rhythm: regular Heart Sounds: Present: S1 & S2 Extremities: No edema Extremity abnormal: other (berta removed from left hip incision, scant blood on steri-strips) - Gastrointestinal General gastrointestinal: Present: soft, non-distended, hypoactive bowel sounds - Integumentary Integumentary: no rash - Psychiatric Psychiatric: other (sedated) - Labs CBC & Chem 7: 10/09/16 07:40 10/09/16 07:40 Labs: Abnormal lab results 10/08/16 10/08/16 10/08/16 Range/Units 12:11 18:35 23:38 WBC (4.5-11.0) K/mm3 RBC (3.65-5.03) M/mm3 Hgb (10.1-14.3) gm/dl Hct (30.3-42.9) % MCH (28-32) pg RDW (13.2-15.2) % POC ABG pCO2 (35-45) POC ABG pO2 (80-105) Sodium (137-145) mmol/L Potassium (3.6-5.0) mmol/L Chloride (98-107) mmol/L BUN (7-17) mg/dL Creatinine (0.7-1.2) mg/dL Glucose (65-100) mg/dL POC Glucose 199 H 187 H 202 H (70-105) Crossmatch 10/09/16 10/09/16 10/09/16 Range/Units 04:43 05:38 07:40 WBC 37.3 H (4.5-11.0) K/mm3 RBC 2.55 L (3.65-5.03) M/mm3 Hgb 6.4 L (10.1-14.3) gm/dl Hct 20.7 L (30.3-42.9) % MCH 25 L (28-32) pg RDW 20.6 H (13.2-15.2) % POC ABG pCO2 45.4 H (35-45) POC ABG pO2 52 L (80-105) Sodium (137-145) mmol/L Potassium (3.6-5.0) mmol/L Chloride (98-107) mmol/L BUN (7-17) mg/dL Creatinine (0.7-1.2) mg/dL Glucose (65-100) mg/dL POC Glucose 182 H (70-105) Crossmatch 10/09/16 10/09/16 Range/Units 07:40 10:00 WBC (4.5-11.0) K/mm3 RBC (3.65-5.03) M/mm3 Hgb (10.1-14.3) gm/dl Hct (30.3-42.9) % MCH (28-32) pg RDW (13.2-15.2) % POC ABG pCO2 (35-45) POC ABG pO2 (80-105) Sodium 153 H (137-145) mmol/L Potassium 3.3 L (3.6-5.0) mmol/L Chloride 112.7 H (98-107) mmol/L BUN 62 H (7-17) mg/dL Creatinine 1.7 H (0.7-1.2) mg/dL Glucose 146 H (65-100) mg/dL POC Glucose (70-105) Crossmatch See Detail Microbiology 10/04/16 04:05 Tracheal Aspirate Herpes Simplex Virus Culture - Final 10/03/16 09:20 Peripheral/Venous Blood Culture - Final NO GROWTH AFTER 5 DAYS 10/03/16 09:30 Picc Blood Culture - Final NO GROWTH AFTER 5 DAYS 10/03/16 09:06 Urine,Catheterized - Indwelling Catheter Urine Culture - Final 09/27/16 22:47 Peripheral/Venous Blood Culture - Final NO GROWTH AFTER 5 DAYS 09/27/16 22:47 Peripheral/Venous Blood Culture - Final NO GROWTH AFTER 5 DAYS 09/27/16 15:06 Peripheral/Venous Blood Culture - Final NO GROWTH AFTER 5 DAYS 09/27/16 14:40 Peripheral/Venous Blood Culture - Final NO GROWTH AFTER 5 DAYS 09/30/16 Unknown Tracheal Aspirate Sputum Culture - Final Active Medications Acetaminophen (Tylenol) 650 mg PO Q4H PRN PRN Reason: Pain MILD(1-3)/Fever >100.5/PALACIOS Last Admin: 10/07/16 18:13 Dose: 650 mg Albuterol/Ipratropium (Duoneb 0.5 Mg-3 Mg/3 Ml Soln) 1 ampul IH Q6HRT [facility] Last Admin: 10/09/16 10:29 Dose: Not Given Lipase/Protease/Amylase (Pancreaze Dr 10,500 Unit) 1 each FEEDTUBE PRN PRN PRN Reason: For Clogged Feeding Tube Arformoterol Tartrate (Brovana Nebu) 15 mcg IH Q12HRT [facility] Last Admin: 10/09/16 10:29 Dose: 15 mcg Aspirin (Aspirin) 325 mg PO QDAY [facility] Last Admin: 10/09/16 10:12 Dose: 325 mg Budesonide (Pulmicort) 0.5 mg IH Q12HRT [facility] Last Admin: 10/09/16 10:29 Dose: 0.5 mg Diphenhydramine HCl (Benadryl) 12.5 mg IV Q4H PRN PRN Reason: Itching Last Admin: 09/30/16 07:02 Dose: 12.5 mg Enoxaparin Sodium (Lovenox) 40 mg SUB-Q QDAY [facility] Last Admin: 10/09/16 10:10 Dose: 40 mg Famotidine (Pepcid) 20 mg PO BID [facility] Last Admin: 10/09/16 10:13 Dose: 20 mg Folic Acid (Folvite) 1 mg PO QDAY [facility] Last Admin: 10/09/16 10:12 Dose: 1 mg Furosemide (Lasix) 40 mg IV Q8H SADAF Hydrophilic Ointment (Vaseline Lip Therapy) 1 applic TP Q2HR PRN PRN Reason: Dry Lips Fentanyl Citrate (Fentanyl Drip Premix) 2,000 mcg in 100 mls @ 4.649 mls/hr IV TITR SADAF; 1 MCG/KG/HR PRN Reason: Protocol Last Admin: 10/09/16 01:39 Dose: 2 mcg/kg/hr, 9.299 mls/hr Propofol (Diprivan 10 Mg/Ml) 1,000 mg in 100 mls @ 2.79 mls/hr IV TITR SADAF; 5 MCG/KG/MIN PRN Reason: Protocol Last Admin: 10/09/16 05:46 Dose: 15 mcg/kg/min, 8.369 mls/hr Midazolam HCl 100 mg/ Sodium (Chloride) 100 mls @ 2 mls/hr IV TITR SADAF; 2 MG/HR PRN Reason: Protocol Last Admin: 10/04/16 12:54 Dose: 2 mg/hr, 2 mls/hr Metronidazole (Flagyl 500 Mg/100 Ml) 500 mg in 100 mls @ 100 mls/hr IV Q8HR [facility] Last Admin: 10/09/16 05:46 Dose: 100 mls/hr Insulin Human Regular (Novolin R) 0 units SUB-Q Q6HR SADAF PRN Reason: Protocol Last Admin: 10/09/16 05:58 Dose: 1 units Multi-Ingred Cream/Lotion/Oil/Oint (Artificial Tears Ophth Oint) 1 applic OU Q4HR PRN PRN Reason: Dry Eye(s) Multivitamins (Theragran Tab) 1 each PO QDAY [facility] Last Admin: 10/08/16 09:47 Dose: 1 each Ondansetron HCl (Zofran) 4 mg IV Q8H PRN PRN Reason: Nausea And Vomiting Last Admin: 09/29/16 23:07 Dose: 4 mg Promethazine HCl (Phenergan) 25 mg ME Q6H PRN PRN Reason: Nausea And Vomiting Last Admin: 09/25/16 22:05 Dose: 25 mg Senna (Senokot) 17.2 mg PO DAILY [facility] Last Admin: 10/09/16 10:11 Dose: 17.2 mg Simple Syrup (Simple Syrup) 15 ml FEEDTUBE PRN PRN PRN Reason: Hypoglycemia Simple Syrup (Simple Syrup) 30 ml FEEDTUBE PRN PRN PRN Reason: Hypoglycemia Sodium Bicarbonate (Sodium Bicarbonate) 325 mg FEEDTUBE PRN PRN PRN Reason: For Clogged Feeding Tube Sodium Chloride (Sodium Chloride Flush Syringe 10 Ml) 10 ml IV PRN PRN PRN Reason: LINE FLUSH Tramadol HCl (Ultram) 50 mg PO Q4H PRN PRN Reason: Pain, Moderate (4-6) Last Admin: 10/06/16 21:54 Dose: 50 mg Valacyclovir HCl (Valtrex) 500 mg PO DAILY [facility] Last Admin: 10/09/16 10:13 Dose: 500 mg Zolpidem Tartrate (Ambien) 5 mg PO QHS PRN PRN Reason: Sleep
--- NOTE | 2016-10-09 12:23 | Progress Note ---
Assessment and Plan - Patient Problems (1) Avascular necrosis of bone of left hip Current Visit: Yes Status: Deleted Plan to address problem: S/P Athroplasty to left hip on 09/25/16 (2) Acute respiratory failure with hypoxia Current Visit: Yes Status: Acute Plan to address problem: Intuabted on vent support as per pulmonary (3) Acute renal failure due to tubular necrosis Current Visit: Yes Status: Acute Plan to address problem: Renal function reviewed- serum creatinine 1.7 today but BUN rising-currently 62 today- Rise in creatinine and BUN could be due to aggressive diuresis. Will monitor for now, however if BUN and creatinine continue to rise, we will consider decreasing Lasix frequency to BID. Hypernatremia- On free water flushes 400 ml every 4 hours-discussed and reenforced with day nurse to make sure free water flushes are being done every hours as ordered and to also document free water flushes each time it is completed. Also advised current day nurse to remind the oncoming night nurse to do the same. Hypokalemia- KCl 10 meq IV x 1 today On Lasix 40 mg every 8 hours Avoid Nephrotoxic agents Renally dose medications Obtain daily weights Monitor I/O's-recent recording- Intake 1189/UOP 1300 ml Will monitor renal function closely and adjust regimen accordingly (4) Sepsis syndrome Current Visit: Yes Status: Acute Plan to address problem: ID on board. On IV Flagyl and Valcyclovir (5) Acute hypernatremia Current Visit: Yes Status: Acute Plan to address problem: Hypernatremia- On free water flushes 400 ml every 4 hours-discussed and reenforced with day nurse to make sure free water flushes are being done every hours as ordered and to also document free water flushes each time it is completed. Also advised current day nurse to remind the oncoming night nurse to do the same. (6) Anemia Current Visit: Yes Status: Acute Qualifiers: Anemia type: A Iron deficiency anemia type: I Vitamin B12 deficiency anemia type: V Folate deficiency anemia type: F Bone marrow failure anemia type: B Hemolytic anemia type: H Other causes of anemia: O Plan to address problem: Monitor H/H and transfuse prn Current HGB 6.4- scheduled to receive 1 unit odf PRBC's today Subjective Date of service: 10/09/16 Principal diagnosis: Acute Hypoxemic Respiratory Failure; ARDS Interval history: Patient seen lying in bed and is intubated on vent support and is unresponsive Objective - Vital Signs Vital signs: Vital Signs - 12hr 10/09/16 10/09/16 10/09/16 00:20 00:30 00:41 Temperature Pulse Rate 90 100 H 96 H Pulse Rate [ Anterior Bilateral Throughout] Pulse Rate [ From Monitor] Respiratory 11 L 13 13 Rate Respiratory Rate [Anterior Bilateral Throughout] Blood Pressure 115/64 129/64 115/64 O2 Sat by Pulse 91 90 88 Oximetry 10/09/16 10/09/16 10/09/16 00:44 00:51 01:00 Temperature Pulse Rate 102 H 96 H 109 H Pulse Rate [ Anterior Bilateral Throughout] Pulse Rate [ From Monitor] Respiratory 20 13 13 Rate Respiratory Rate [Anterior Bilateral Throughout] Blood Pressure 115/64 115/64 122/74 O2 Sat by Pulse 91 92 Oximetry 10/09/16 10/09/16 10/09/16 01:11 01:21 01:30 Temperature Pulse Rate 102 H 110 H 93 H Pulse Rate [ Anterior Bilateral Throughout] Pulse Rate [ From Monitor] Respiratory 13 15 13 Rate Respiratory Rate [Anterior Bilateral Throughout] Blood Pressure 122/74 122/74 134/65 O2 Sat by Pulse 92 92 93 Oximetry 10/09/16 10/09/16 10/09/16 01:41 01:51 02:00 Temperature Pulse Rate 97 H 98 H 93 H Pulse Rate [ Anterior Bilateral Throughout] Pulse Rate [ From Monitor] Respiratory 13 13 13 Rate Respiratory Rate [Anterior Bilateral Throughout] Blood Pressure 134/65 134/65 95/45 O2 Sat by Pulse 95 94 94 Oximetry 10/09/16 10/09/16 10/09/16 02:11 02:21 02:30 Temperature Pulse Rate 94 H 92 H 89 Pulse Rate [ Anterior Bilateral Throughout] Pulse Rate [ From Monitor] Respiratory 13 13 13 Rate Respiratory Rate [Anterior Bilateral Throughout] Blood Pressure 95/45 95/45 94/42 O2 Sat by Pulse 94 94 95 Oximetry 10/09/16 10/09/16 10/09/16 02:41 02:51 03:00 Temperature Pulse Rate 87 90 83 Pulse Rate [ Anterior Bilateral Throughout] Pulse Rate [ From Monitor] Respiratory 13 13 13 Rate Respiratory Rate [Anterior Bilateral Throughout] Blood Pressure 94/42 94/42 96/47 O2 Sat by Pulse 94 93 Oximetry 10/09/16 10/09/16 10/09/16 03:11 03:21 03:30 Temperature Pulse Rate 69 98 H 111 H Pulse Rate [ Anterior Bilateral Throughout] Pulse Rate [ From Monitor] Respiratory 15 13 13 Rate Respiratory Rate [Anterior Bilateral Throughout] Blood Pressure 96/47 96/47 126/78 O2 Sat by Pulse 86 86 86 Oximetry 10/09/16 10/09/16 10/09/16 03:41 03:51 04:00 Temperature 100.6 F H Pulse Rate 109 H 113 H 103 H Pulse Rate [ Anterior Bilateral Throughout] Pulse Rate [ 105 H From Monitor] Respiratory 15 13 13 Rate Respiratory Rate [Anterior Bilateral Throughout] Blood Pressure 126/78 126/78 148/83 O2 Sat by Pulse 84 85 84 Oximetry 10/09/16 10/09/16 10/09/16 04:11 04:21 04:30 Temperature Pulse Rate 103 H 111 H 96 H Pulse Rate [ Anterior Bilateral Throughout] Pulse Rate [ From Monitor] Respiratory 12 13 13 Rate Respiratory Rate [Anterior Bilateral Throughout] Blood Pressure 148/83 148/83 134/73 O2 Sat by Pulse 88 90 87 Oximetry 10/09/16 10/09/16 10/09/16 04:41 04:51 04:56 Temperature Pulse Rate 97 H 105 H 113 H Pulse Rate [ Anterior Bilateral Throughout] Pulse Rate [ From Monitor] Respiratory 13 13 26 H Rate Respiratory Rate [Anterior Bilateral Throughout] Blood Pressure 134/73 134/73 148/83 O2 Sat by Pulse 93 100 89 Oximetry 10/09/16 10/09/16 10/09/16 05:00 05:11 05:21 Temperature Pulse Rate 103 H 83 104 H Pulse Rate [ Anterior Bilateral Throughout] Pulse Rate [ From Monitor] Respiratory 13 13 13 Rate Respiratory Rate [Anterior Bilateral Throughout] Blood Pressure 116/57 116/57 116/57 O2 Sat by Pulse 97 100 100 Oximetry 10/09/16 10/09/16 10/09/16 05:30 05:41 05:51 Temperature Pulse Rate 102 H 105 H 87 Pulse Rate [ Anterior Bilateral Throughout] Pulse Rate [ From Monitor] Respiratory 13 16 13 Rate Respiratory Rate [Anterior Bilateral Throughout] Blood Pressure 124/53 124/53 124/53 O2 Sat by Pulse 95 98 96 Oximetry 10/09/16 10/09/16 10/09/16 06:00 06:11 06:21 Temperature Pulse Rate 86 103 H 101 H Pulse Rate [ Anterior Bilateral Throughout] Pulse Rate [ From Monitor] Respiratory 14 13 13 Rate Respiratory Rate [Anterior Bilateral Throughout] Blood Pressure 141/63 141/63 141/63 O2 Sat by Pulse 94 96 96 Oximetry 10/09/16 10/09/16 10/09/16 06:30 06:41 06:51 Temperature Pulse Rate 100 H 91 H 96 H Pulse Rate [ Anterior Bilateral Throughout] Pulse Rate [ From Monitor] Respiratory 13 13 13 Rate Respiratory Rate [Anterior Bilateral Throughout] Blood Pressure 115/66 115/66 115/66 O2 Sat by Pulse 92 96 96 Oximetry 10/09/16 10/09/16 10/09/16 07:00 07:11 07:21 Temperature Pulse Rate 103 H 96 H 94 H Pulse Rate [ Anterior Bilateral Throughout] Pulse Rate [ From Monitor] Respiratory 13 13 13 Rate Respiratory Rate [Anterior Bilateral Throughout] Blood Pressure 111/53 111/53 111/53 O2 Sat by Pulse 95 97 97 Oximetry 10/09/16 10/09/16 10/09/16 07:30 07:41 07:51 Temperature Pulse Rate 103 H 95 H 84 Pulse Rate [ Anterior Bilateral Throughout] Pulse Rate [ From Monitor] Respiratory 13 13 13 Rate Respiratory Rate [Anterior Bilateral Throughout] Blood Pressure 91/39 91/39 91/39 O2 Sat by Pulse 97 99 99 Oximetry 10/09/16 10/09/16 10/09/16 08:00 08:11 08:20 Temperature 99 F Pulse Rate 90 82 85 Pulse Rate [ Anterior Bilateral Throughout] Pulse Rate [ From Monitor] Respiratory 13 13 13 Rate Respiratory Rate [Anterior Bilateral Throughout] Blood Pressure 96/48 96/48 96/48 O2 Sat by Pulse 99 99 99 Oximetry 10/09/16 10/09/16 10/09/16 08:30 08:41 08:51 Temperature Pulse Rate 81 88 105 H Pulse Rate [ Anterior Bilateral Throughout] Pulse Rate [ From Monitor] Respiratory 13 13 13 Rate Respiratory Rate [Anterior Bilateral Throughout] Blood Pressure 106/48 106/48 106/48 O2 Sat by Pulse 97 94 95 Oximetry 10/09/16 10/09/16 10/09/16 09:00 09:11 09:21 Temperature Pulse Rate 105 H 95 H 88 Pulse Rate [ Anterior Bilateral Throughout] Pulse Rate [ From Monitor] Respiratory 13 13 13 Rate Respiratory Rate [Anterior Bilateral Throughout] Blood Pressure 127/65 127/65 127/65 O2 Sat by Pulse 93 95 94 Oximetry 10/09/16 10/09/16 10/09/16 09:30 09:41 09:51 Temperature Pulse Rate 95 H 106 H 108 H Pulse Rate [ Anterior Bilateral Throughout] Pulse Rate [ From Monitor] Respiratory 13 13 15 Rate Respiratory Rate [Anterior Bilateral Throughout] Blood Pressure 132/64 132/64 132/64 O2 Sat by Pulse 94 96 94 Oximetry 10/09/16 10/09/16 10/09/16 10:00 10:11 10:21 Temperature Pulse Rate 102 H 103 H 116 H Pulse Rate [ Anterior Bilateral Throughout] Pulse Rate [ From Monitor] Respiratory 13 13 13 Rate Respiratory Rate [Anterior Bilateral Throughout] Blood Pressure 122/60 122/60 122/60 O2 Sat by Pulse 93 96 93 Oximetry 10/09/16 10/09/16 10/09/16 10:22 10:29 10:30 Temperature Pulse Rate 108 H 103 H Pulse Rate [ 110 H Anterior Bilateral Throughout] Pulse Rate [ From Monitor] Respiratory 25 H 13 Rate Respiratory 18 Rate [Anterior Bilateral Throughout] Blood Pressure 122/60 115/63 O2 Sat by Pulse 95 98 Oximetry 10/09/16 10/09/16 10/09/16 10:38 10:41 10:51 Temperature Pulse Rate 90 103 H Pulse Rate [ 105 H Anterior Bilateral Throughout] Pulse Rate [ From Monitor] Respiratory 15 13 Rate Respiratory 26 H Rate [Anterior Bilateral Throughout] Blood Pressure 115/63 115/63 O2 Sat by Pulse 96 96 Oximetry 10/09/16 10/09/16 10/09/16 11:00 11:11 11:21 Temperature Pulse Rate 105 H 106 H 97 H Pulse Rate [ Anterior Bilateral Throughout] Pulse Rate [ From Monitor] Respiratory 16 13 16 Rate Respiratory Rate [Anterior Bilateral Throughout] Blood Pressure 135/84 135/84 135/84 O2 Sat by Pulse 95 94 94 Oximetry 10/09/16 10/09/16 10/09/16 11:30 11:41 11:51 Temperature Pulse Rate 99 H 101 H 75 Pulse Rate [ Anterior Bilateral Throughout] Pulse Rate [ From Monitor] Respiratory 14 14 15 Rate Respiratory Rate [Anterior Bilateral Throughout] Blood Pressure 117/67 117/67 117/67 O2 Sat by Pulse 96 97 97 Oximetry 10/09/16 12:00 Temperature 100 F H Pulse Rate 85 Pulse Rate [ Anterior Bilateral Throughout] Pulse Rate [ From Monitor] Respiratory 15 Rate Respiratory Rate [Anterior Bilateral Throughout] Blood Pressure 124/59 O2 Sat by Pulse 96 Oximetry - General Appearance General appearance: chronically ill, sedated on ventilator, intubated EENT: ATNC Neck: no JVD, supple Respiratory: Present: Decreased Breath Sounds Cardiology: tachycardia, S1S2 Gastrointestinal: normoactive bowel sounds Integumentary: warm and dry Neurologic: other (Sedated and intubated. ) Musculoskeletal: other (No edema to BLE. Has abduction pillow between legs.) - Lab 10/09/16 07:40 10/09/16 07:40 Most recent lab results Calcium 8.8 mg/dL (8.4-10.2) 10/09/16 07:40 Phosphorus 3.60 mg/dL (2.5-4.5) 10/04/16 04:03 Urine Creatinine 63.2 mg/dL (0.1-20.0) H 10/03/16 15:54 Urine Sodium 20 mEq/L 10/03/16 15:54 Urine Total Protein 67 mg/dL (5-11.8) H 10/03/16 15:54
[2016-10-09] MEDS ORDERED: NACL 0.9% 250ML 250 ML ONE (12:39)
[2016-10-09] MEDS ORDERED: POTASSIUM CHLORIDE FEEDTUBE ONE (14:00)
[2016-10-09] MEDS ORDERED: KCL 10MEQ/100ML 10 MEQ/100 ML BAG IV ONE (14:00)
[2016-10-09] MEDS ORDERED: NACL 0.9% 500 ML 500 ML IV SCH (17:53)
--- NOTE | 2016-10-09 18:00 | Progress Note ---
Assessment and Plan Assessment and plan: The patient is a 41-year-old female with a history of sickle cell disease who was admitted for total hip arthroplasty for avascular necrosis of the left hip. She had left total hip arthroplasty on 09/25/2016 and developed acute hypoxemic respiratory failure following the POD 2 likely from ARDS and ultimately required intubation on 09/27/2016. Her hemoglobin level dropped from 8.1-6.9 on 09/30/2016, also noted to have hypokalemia with potassium level 3.1. Hospitalist service consulted for medical management. Patient remained in a I intubated with mechanical ventilation. Her white count continued to trend up. Maintained on sepsis protocol, CT scan of abdomen and pelvis and thorax done without contrast to identify the source for infection. CT scan of the chest was suggestive for possible pneumonia. She is currently on broad- spectrum antibiotics, critically ill with poor prognosis. Acute hypoxic respiratory failure -has required mechanical vent for > 96 hours - likely due to ARDS with PNA, intubated on 09/27/16 - on mechanical ventilation with decreasing oxygen requirement - pulmonary following, cont nebulizer, vent support, antibiotics - wean off as tolerated Severe anemia - History of thalassemia major - transfused 1 unit PRBC on 10/01 - hematology following -transfuse 2 units prbc today Avscular necrosis of the left hip - s/p total left hip arthoplasty on 09/25/16 Hypokalemia -Status post replacement, continue to replete as needed Sepsis syndrome - Likely from pneumonia - Spiking temp intermittently, wbc count continue to increased Patient has completed a 7 day course of antibiotics for treatment of sepsis/ pneumonia, ID input appreciated, abx dc Hypernatremia -Continue free water via gastric tube CARLYN - likely from sepsis syndrome and ATN - monitor renal function - nephrology following, diuretic doses have been reduced Leukocytosis Most likely leukemoid reaction, improving, hematology input appreciated, flow cytometry has been ordered by the bullet swaging machine operator Critical care time 32 minutes Dispo: LTACH History Interval history: patient remains intubated, sedated, failed weaning trials but o2 requirement is reduced Hospitalist Physical - Physical exam Narrative exam: General: Intubated sedated HEENT: MMM, EOMI cardiac: S1-S2 heard lungs: Rhonchorous ventilated breath sounds abdomen: soft, nontender, nondistended bowel sounds positive extremities: no edema clubbing or cyanosis Skin: no rash or lesion Neuro: Intubated sedated - Constitutional Vitals: Temp Pulse Resp BP Pulse Ox 100 F H 77 17 139/77 92 10/09/16 16:20 10/09/16 17:00 10/09/16 17:00 10/09/16 17:00 10/09/16 17:00 General appearance: Present: severe distress Results - Labs CBC & Chem 7: 10/09/16 07:40 10/09/16 07:40 Labs: Laboratory Last Values WBC 37.3 K/mm3 (4.5-11.0) H 10/09/16 07:40 RBC 2.55 M/mm3 (3.65-5.03) L 10/09/16 07:40 Hgb 6.4 gm/dl (10.1-14.3) L 10/09/16 07:40 Hct 20.7 % (30.3-42.9) L 10/09/16 07:40 MCV 81 fl (79-97) 10/09/16 07:40 MCH 25 pg (28-32) L 10/09/16 07:40 MCHC 31 % (30-34) 10/09/16 07:40 RDW 20.6 % (13.2-15.2) H 10/09/16 07:40 Plt Count 388 K/mm3 (140-440) 10/09/16 07:40 Lymph % (Auto) 33.3 % (13.4-35.0) 09/20/16 10:35 Gregg % (Auto) 5.8 % (0.0-7.3) 09/20/16 10:35 Eos % (Auto) 2.5 % (0.0-4.3) 09/20/16 10:35 Baso % (Auto) 0.7 % (0.0-1.8) 09/20/16 10:35 Lymph # Resolution Specialist 10/08/16 04:00 Gregg # 0.7 K/mm3 (0.0-0.8) 09/20/16 10:35 Eos # 0.3 K/mm3 (0.0-0.4) 09/20/16 10:35 Baso # 0.1 K/mm3 (0.0-0.1) 09/20/16 10:35 Add Manual Diff Complete 10/08/16 04:00 Total Counted 100 05/09/17 04:00 Seg Neutrophils % 57.7 % (40.0-70.0) 09/20/16 10:35 Seg Neuts % (Manual) 75.0 % (40.0-70.0) H 10/08/16 04:00 Band Neutrophils % 5.0 % 10/08/16 04:00 Lymphocytes % (Manual) 11.0 % (13.4-35.0) L 10/08/16 04:00 Reactive Lymphs % (Man) 0 % 10/08/16 04:00 Monocytes % (Manual) 8.0 % (0.0-7.3) H 10/08/16 04:00 Eosinophils % (Manual) 1.0 % (0.0-4.3) 10/08/16 04:00 Basophils % (Manual) 0 % (0.0-1.8) 10/07/16 00:55 Metamyelocytes % 0 % 10/08/16 04:00 Myelocytes % 0 % 10/08/16 04:00 Promyelocytes % 0 % 10/08/16 04:00 Blast Cells % 0 % 10/08/16 04:00 Nucleated RBC % 30.0 % (0.0-0.9) H 10/08/16 04:00 Seg Neutrophils # 6.7 K/mm3 (1.8-7.7) 09/20/16 10:35 Seg Neutrophils # Man 43.5 K/mm3 (1.8-7.7) H 10/08/16 04:00 Band Neutrophils # 2.9 K/mm3 10/08/16 04:00 Lymphocytes # (Manual) 6.4 K/mm3 (1.2-5.4) H 10/08/16 04:00 Abs React Lymphs (Man) 0.0 K/mm3 10/08/16 04:00 Monocytes # (Manual) 4.6 K/mm3 (0.0-0.8) H 10/08/16 04:00 Eosinophils # (Manual) 0.6 K/mm3 (0.0-0.4) H 10/08/16 04:00 Basophils # (Manual) 0.0 K/mm3 (0.0-0.1) 10/08/16 04:00 Metamyelocytes # 0.0 K/mm3 10/08/16 04:00 Myelocytes # 0.0 K/mm3 10/08/16 04:00 Promyelocytes # 0.0 K/mm3 10/08/16 04:00 Blast Cells # 0.0 K/mm3 10/08/16 04:00 WBC Morphology Not Reportable 10/08/16 04:00 Hypersegmented Neuts Not Reportable 10/08/16 04:00 Hyposegmented Neuts Not Reportable 10/08/16 04:00 Hypogranular Neuts Not Reportable 10/08/16 04:00 Smudge Cells Not Reportable 10/08/16 04:00 Toxic Granulation Not Reportable 10/08/16 04:00 Toxic Vacuolation Not Reportable 10/08/16 04:00 Dohle Bodies Not Reportable 10/08/16 04:00 Pelger-Huet Anomaly Not Reportable 10/08/16 04:00 Jaspreet Rods Not Reportable 10/08/16 04:00 Platelet Estimate Consistent w auto 10/08/16 04:00 Clumped Platelets Not Reportable 10/08/16 04:00 Plt Clumps, EDTA Not Reportable 10/08/16 04:00 Large Platelets Not Reportable 10/08/16 04:00 Giant Platelets Not Reportable 10/08/16 04:00 Platelet Satelliting Not Reportable 10/08/16 04:00 Plt Morphology Comment Not Reportable 10/08/16 04:00 RBC Morphology Not Reportable 10/08/16 04:00 Dimorphic RBCs Not Reportable 10/08/16 04:00 Polychromasia 1+ 10/08/16 04:00 Hypochromasia 2+ 10/08/16 04:00 Poikilocytosis Not Reportable 10/08/16 04:00 Anisocytosis 2+ 10/08/16 04:00 Microcytosis Not Reportable 10/08/16 04:00 Macrocytosis Not Reportable 10/08/16 04:00 Spherocytes Not Reportable 10/08/16 04:00 Pappenheimer Bodies Not Reportable 10/08/16 04:00 Sickle Cells Not Reportable 10/08/16 04:00 Target Cells 1+ 10/08/16 04:00 Tear Drop Cells Not Reportable 10/08/16 04:00 Ovalocytes Not Reportable 10/08/16 04:00 Helmet Cells Not Reportable 10/08/16 04:00 Villatoro-Mcallen Bodies Not Reportable 10/08/16 04:00 Kinsley Rings Not Reportable 10/08/16 04:00 Mike Cells Not Reportable 10/08/16 04:00 Bite Cells Not Reportable 10/08/16 04:00 Crenated Cell Not Reportable 10/08/16 04:00 Elliptocytes Not Reportable 10/08/16 04:00 Acanthocytes (Spur) Not Reportable 10/08/16 04:00 Rouleaux Not Reportable 10/08/16 04:00 Hemoglobin C Crystals Not Reportable 10/08/16 04:00 Schistocytes Rare 10/08/16 04:00 Malaria parasites Not Reportable 10/08/16 04:00 Percent Retic 8.11 % (0.78-2.58) H 09/27/16 22:47 Jeffrey Bodies Not Reportable 10/08/16 04:00 Hem Pathologist Commnt No 10/08/16 04:00 PT 14.5 Sec. (12.2-14.9) 09/20/16 10:35 INR 1.14 (0.87-1.13) H 09/20/16 10:35 APTT 31.1 Sec. (24.2-36.6) 09/20/16 10:35 D-Dimer 4758.12 ng/mlDDU (0-234) H 09/27/16 22:47 POC ABG pH 7.423 (7.35-7.45) 10/09/16 04:43 POC ABG pCO2 45.4 (35-45) H 10/09/16 04:43 POC ABG pO2 52 (80-105) L 10/09/16 04:43 POC ABG HCO3 29.7 10/09/16 04:43 POC ABG Total CO2 31 10/09/16 04:43 POC ABG O2 Sat 87 10/09/16 04:43 POC ABG Base Excess 5 10/09/16 04:43 FiO2 50 % 10/09/16 04:43 Sodium 153 mmol/L (137-145) H 10/09/16 07:40 Potassium 3.3 mmol/L (3.6-5.0) L 10/09/16 07:40 Chloride 112.7 mmol/L (98-107) H 10/09/16 07:40 Carbon Dioxide 29 mmol/L (22-30) 10/09/16 07:40 Anion Gap 15 mmol/L 10/09/16 07:40 BUN 62 mg/dL (7-17) H 10/09/16 07:40 Creatinine 1.7 mg/dL (0.7-1.2) H 10/09/16 07:40 Estimated GFR 40 ml/min 10/09/16 07:40 BUN/Creatinine Ratio 36.47 % 10/09/16 07:40 Glucose 146 mg/dL (65-100) H 10/09/16 07:40 POC Glucose 214 (70-105) H 10/09/16 12:06 Osmolality 311 Mosm/kg 10/04/16 04:03 Lactic Acid 1.00 mmol/L (0.7-2.0) 10/05/16 14:00 Calcium 8.8 mg/dL (8.4-10.2) 10/09/16 07:40 Phosphorus 3.60 mg/dL (2.5-4.5) 10/04/16 04:03 Total Bilirubin 1.20 mg/dL (0.1-1.2) 10/04/16 04:03 AST 31 units/L (5-40) 10/04/16 04:03 ALT 33 units/L (7-56) 10/04/16 04:03 Alkaline Phosphatase 100 units/L (35-129) 10/04/16 04:03 Lactate Dehydrogenase 829 units/L (91-180) H 09/27/16 22:47 Total Creatine Kinase 3575 units/L (30-135) H 09/27/16 14:40 CK-MB (CK-2) 11.0 ng/mL (0.0-4.0) H 09/27/16 14:40 CK-MB (CK-2) Rel Index 0.3 (0-4) 09/27/16 14:40 Troponin T < 0.010 ng/mL (0.00-0.029) 09/27/16 14:40 C-Reactive Protein 28.40 mg/dL (0.00-1.30) H 10/05/16 14:00 NT-Pro-B Natriuret Pep 2018 pg/mL (0-450) H 09/30/16 14:05 Total Protein 5.6 g/dL (6.3-8.2) L 10/04/16 04:03 Albumin 2.1 g/dL (3.9-5) L 10/04/16 04:03 Albumin/Globulin Ratio 0.6 % 10/04/16 04:03 Urine Color Yellow (Yellow) 10/03/16 15:54 Urine Turbidity Cloudy (Clear) 10/03/16 15:54 Urine pH 5.0 (5.0-7.0) 10/03/16 15:54 Ur Specific Kinsey 1.013 (1.003-1.030) 10/03/16 15:54 Urine Protein 30 mg/dl mg/dL (Negative) 10/03/16 15:54 Urine Glucose (UA) Neg mg/dL (Negative) 10/03/16 15:54 Urine Ketones Neg mg/dL (Negative) 10/03/16 15:54 Urine Blood Lg (Negative) 10/03/16 15:54 Urine Nitrite Neg (Negative) 10/03/16 15:54 Urine Bilirubin Neg (Negative) 10/03/16 15:54 Urine Urobilinogen < 2.0 mg/dL (<2.0) 10/03/16 15:54 Ur Leukocyte Esterase Tr (Negative) 10/03/16 15:54 Urine WBC (Auto) 21.0 /HPF (0.0-6.0) H 10/03/16 15:54 Urine RBC (Auto) 65.0 /HPF (0.0-6.0) 10/03/16 15:54 U Epithel Cells (Auto) 2.0 /HPF (0-13.0) 10/03/16 15:54 Urine Bacteria (Auto) 3+ /HPF (Negative) 10/03/16 15:54 Amorphous Crystals 1+ 10/03/16 15:54 Urine Mucus Few /HPF 10/03/16 15:54 Urine Creatinine 63.2 mg/dL (0.1-20.0) H 10/03/16 15:54 Urine Sodium 20 mEq/L 10/03/16 15:54 Urine Total Protein 67 mg/dL (5-11.8) H 10/03/16 15:54 Vancomycin Trough 45.5 ug/mL (5.0-20.0) H 10/04/16 12:39 Random Vancomycin 14.9 ug/mL (0-40.0) 10/07/16 05:25 Blood Type O POSITIVE 10/09/16 10:00 Antibody Screen TNR 10/01/16 00:55 DEACON Antibody Screen Negative 10/09/16 10:00 Crossmatch See Detail 10/09/16 10:00
--- NOTE | 2016-10-09 23:49 | Consultation ---
History of Present Illness - Reason for Consult Consult date: 10/09/16 - History of Present Illness Patient seen/ examined, labs reviewed, case d/w consultants. Will try exchange treatment.Still awaiting flow results. Past History Past Medical History: anemia (sickle cell anemia) Social history: no significant social history Family history: no significant family history Medications and Allergies Allergies Allergy/AdvReac Type Severity Reaction Status Date / Time No Known Allergies Allergy Unverified 10/13/13 13:21 Home Medications Medication Instructions Recorded Confirmed Last Taken Type Folic Acid [Folvite] 1 mg PO QDAY 10/13/13 09/18/16 09/18/16 History oxyCODONE /ACETAMINOPHEN [Percocet 1 tab PO Q6HR PRN #10 tablet 10/13/1309/18/16 Rx 5/325 mg] Promethazine [Phenergan] 25 mg PO Q6H PRN 08/16/14 09/18/16 09/18/16 History valACYclovir [Valtrex] 500 mg PO DAILY 08/16/14 09/18/16 09/18/16 History Active Meds: Active Medications Acetaminophen (Tylenol) 650 mg PO Q4H PRN PRN Reason: Pain MILD(1-3)/Fever >100.5/PALACIOS Last Admin: 10/07/16 18:13 Dose: 650 mg Albuterol/Ipratropium (Duoneb 0.5 Mg-3 Mg/3 Ml Soln) 1 ampul IH Q6HRT [facility] Last Admin: 10/09/16 22:01 Dose: Not Given Lipase/Protease/Amylase (Fritz Mayers 10,500 Unit) 1 each FEEDTUBE PRN PRN PRN Reason: For Clogged Feeding Tube Arformoterol Tartrate (Brovana Nebu) 15 mcg IH Q12HRT [facility] Last Admin: 10/09/16 22:00 Dose: 15 mcg Aspirin (Aspirin) 325 mg PO QDAY [facility] Last Admin: 10/09/16 10:12 Dose: 325 mg Budesonide (Pulmicort) 0.5 mg IH Q12HRT [facility] Last Admin: 10/09/16 22:00 Dose: 0.5 mg Diphenhydramine HCl (Benadryl) 12.5 mg IV Q4H PRN PRN Reason: Itching Last Admin: 09/30/16 07:02 Dose: 12.5 mg Enoxaparin Sodium (Lovenox) 40 mg SUB-Q QDAY [facility] Last Admin: 10/09/16 10:10 Dose: 40 mg Famotidine (Pepcid) 20 mg PO BID [facility] Last Admin: 10/09/16 21:56 Dose: 20 mg Folic Acid (Folvite) 1 mg PO QDAY [facility] Last Admin: 10/09/16 10:12 Dose: 1 mg Furosemide (Lasix) 40 mg IV Q8H [facility] Last Admin: 10/09/16 18:00 Dose: 40 mg Hydrophilic Ointment (Vaseline Lip Therapy) 1 applic TP Q2HR PRN PRN Reason: Dry Lips Fentanyl Citrate (Fentanyl Drip Premix) 2,000 mcg in 100 mls @ 4.649 mls/hr IV TITR [facility]; 1 MCG/KG/HR PRN Reason: Protocol Last Admin: 10/09/16 20:31 Dose: 2 mcg/kg/hr, 9.299 mls/hr Propofol (Diprivan 10 Mg/Ml) 1,000 mg in 100 mls @ 2.79 mls/hr IV TITR [facility]; 5 MCG/KG/MIN PRN Reason: Protocol Last Admin: 10/09/16 14:20 Dose: 15 mcg/kg/min, 8.369 mls/hr Midazolam HCl 100 mg/ Sodium (Chloride) 100 mls @ 2 mls/hr IV TITR [facility]; 2 MG/HR PRN Reason: Protocol Last Admin: 10/04/16 12:54 Dose: 2 mg/hr, 2 mls/hr Metronidazole (Flagyl 500 Mg/100 Ml) 500 mg in 100 mls @ 100 mls/hr IV Q8HR [facility] Last Admin: 10/09/16 21:55 Dose: 100 mls/hr Sodium Chloride (Nacl 0.9% 500 Ml) 500 mls @ 0 mls/hr IV ONCE [facility] PRN Reason: As Directed Insulin Human Regular (Novolin R) 0 units SUB-Q Q6HR [facility] PRN Reason: Protocol Last Admin: 10/09/16 18:00 Dose: 1 units Multi-Ingred Cream/Lotion/Oil/Oint (Artificial Tears Ophth Oint) 1 applic OU Q4HR PRN PRN Reason: Dry Eye(s) Multivitamins (Theragran Tab) 1 each PO QDAY [facility] Last Admin: 10/08/16 09:47 Dose: 1 each Ondansetron HCl (Zofran) 4 mg IV Q8H PRN PRN Reason: Nausea And Vomiting Last Admin: 09/29/16 23:07 Dose: 4 mg Promethazine HCl (Phenergan) 25 mg NE Q6H PRN PRN Reason: Nausea And Vomiting Last Admin: 09/25/16 22:05 Dose: 25 mg Senna (Senokot) 17.2 mg PO DAILY [facility] Last Admin: 10/09/16 10:11 Dose: 17.2 mg Simple Syrup (Simple Syrup) 15 ml FEEDTUBE PRN PRN PRN Reason: Hypoglycemia Simple Syrup (Simple Syrup) 30 ml FEEDTUBE PRN PRN PRN Reason: Hypoglycemia Sodium Bicarbonate (Sodium Bicarbonate) 325 mg FEEDTUBE PRN PRN PRN Reason: For Clogged Feeding Tube Sodium Chloride (Sodium Chloride Flush Syringe 10 Ml) 10 ml IV PRN PRN PRN Reason: LINE FLUSH Tramadol HCl (Ultram) 50 mg PO Q4H PRN PRN Reason: Pain, Moderate (4-6) Last Admin: 10/06/16 21:54 Dose: 50 mg Valacyclovir HCl (Valtrex) 500 mg PO DAILY [facility] Last Admin: 10/09/16 10:13 Dose: 500 mg Zolpidem Tartrate (Ambien) 5 mg PO QHS PRN PRN Reason: Sleep Review of Systems Breasts: deferred Cardiovascular: other (patient still on the vent.) Exam - Constitutional Vitals: Temp Pulse Resp BP Pulse Ox 99.8 F H 95 H 23 151/89 94 10/09/16 20:00 10/09/16 22:12 10/09/16 22:12 10/09/16 20:52 10/09/16 20:52 General appearance: Present: severe distress, well-nourished - EENT Eyes: Present: PERRL ENT: hearing intact, clear oral mucosa - Neck Neck: Present: supple, normal ROM - Respiratory Respiratory: bilateral: CTA, other (on the vent.) - Cardiovascular Heart Sounds: Present: S1 & S2. Absent: rub, click - Extremities Extremities: pulses symmetrical, No edema Peripheral Pulses: within normal limits - Abdominal General gastrointestinal: Present: soft, non-tender, non-distended, normal bowel sounds Female genitourinary: Present: deferred - Rectal Rectal Exam: deferred - Integumentary Integumentary: Present: clear, warm, dry - Musculoskeletal Musculoskeletal: gait normal, strength equal bilaterally - Psychiatric Psychiatric: appropriate mood/affect, intact judgment & insight - Neurologic Neurologic: CNII-XII intact, moves all extremities Results - Labs CBC & Chem 7: 10/09/16 07:40 10/09/16 07:40 Labs: Abnormal lab results 10/01/16 10/08/16 10/09/16 Range/Units 00:55 23:38 04:43 WBC (4.5-11.0) K/mm3 RBC (3.65-5.03) M/mm3 Hgb (10.1-14.3) gm/dl Hct (30.3-42.9) % MCH (28-32) pg RDW (13.2-15.2) % POC ABG pCO2 45.4 H (35-45) POC ABG pO2 52 L (80-105) Sodium (137-145) mmol/L Potassium (3.6-5.0) mmol/L Chloride (98-107) mmol/L BUN (7-17) mg/dL Creatinine (0.7-1.2) mg/dL Glucose (65-100) mg/dL POC Glucose 202 H (70-105) Crossmatch See Detail 10/09/16 10/09/16 10/09/16 Range/Units 05:38 07:40 07:40 WBC 37.3 H (4.5-11.0) K/mm3 RBC 2.55 L (3.65-5.03) M/mm3 Hgb 6.4 L (10.1-14.3) gm/dl Hct 20.7 L (30.3-42.9) % MCH 25 L (28-32) pg RDW 20.6 H (13.2-15.2) % POC ABG pCO2 (35-45) POC ABG pO2 (80-105) Sodium 153 H (137-145) mmol/L Potassium 3.3 L (3.6-5.0) mmol/L Chloride 112.7 H (98-107) mmol/L BUN 62 H (7-17) mg/dL Creatinine 1.7 H (0.7-1.2) mg/dL Glucose 146 H (65-100) mg/dL POC Glucose 182 H (70-105) Crossmatch 10/09/16 10/09/16 10/09/16 Range/Units 10:00 12:06 17:08 WBC (4.5-11.0) K/mm3 RBC (3.65-5.03) M/mm3 Hgb (10.1-14.3) gm/dl Hct (30.3-42.9) % MCH (28-32) pg RDW (13.2-15.2) % POC ABG pCO2 (35-45) POC ABG pO2 (80-105) Sodium (137-145) mmol/L Potassium (3.6-5.0) mmol/L Chloride (98-107) mmol/L BUN (7-17) mg/dL Creatinine (0.7-1.2) mg/dL Glucose (65-100) mg/dL POC Glucose 214 H 152 H (70-105) Crossmatch See Detail Assessment and Plan - Patient Problems (1) Arthritis of left hip Current Visit: Yes Status: Deleted Plan to address problem: Follow post surgical management. (2) Avascular necrosis of bone of left hip Current Visit: Yes Status: Deleted Plan to address problem: Post surgical pain management., post surgical anticoagulation. continue same. (3) Sepsis Current Visit: Yes Status: Acute Qualifiers: Sepsis type: sepsis due to unspecified organism Qualified Code(s): A41.9 - Sepsis, unspecified organism Plan to address problem: SEE w/up in the notes. No improvement so far. worsening sepsis. (4) Sleep apnea syndrome Current Visit: Yes Status: Acute Qualifiers: Sleep apnea type: S Plan to address problem: oxygen/BIPAP management. Patient now in full resp failure, and on the vent. (5) UTI (urinary tract infection) Current Visit: Yes Status: Acute Qualifiers: Urinary tract infection type: U Hematuria presence: H Indwelling urinary catheter type: I Encounter type: E Plan to address problem: patient already on abx iv. may need culture sent. culture no growth. (6) Anemia Current Visit: Yes Status: Acute Qualifiers: Anemia type: A Iron deficiency anemia type: I Vitamin B12 deficiency anemia type: V Folate deficiency anemia type: F Bone marrow failure anemia type: B Hemolytic anemia type: H Other causes of anemia: O Plan to address problem: will transfuse if hgb 7.5 or less. no new issues at this time. May transfuse if further drop. (7) Leukocytosis Current Visit: Yes Status: Acute Qualifiers: Leukocytosis type: L Plan to address problem: will order flow, and try leukophoresis.
[2016-10-10] MEDS: DIPRIVAN 10 MG/ML 1,000 MG/100 ML BOTTLE IV SCH ×3 (00:41→20:00)
[2016-10-10] MEDS: LASIX IV SCH ×3 (00:44→17:30)
[2016-10-10] MEDS: DUONEB 0.5 MG-3 MG/3 ML SOLN IH SCH ×4 (03:16→20:08)
[2016-10-10 04:34] LABS: ISTAT Base Excess 11; ISTAT HCO3 35.8; ISTAT PCO2 58.3 (35-45); ISTAT PH 7.396 (7.35-7.45); ISTAT PO2 68 (80-105); ISTAT SO2 93; ISTAT TCO2 38
[2016-10-10] MEDS: fentaNYL DRIP Premix 2,000 MCG/100 ML BAG IV SCH ×2 (05:27→15:12)
[2016-10-10] MEDS: FLAGYL 500 MG/100 ML 500 MG/100 ML BAG IV SCH ×3 (05:28→23:13)
[2016-10-10 06:37] LABS: Hematocrit 30.1 % (30.3-42.9); Hemoglobin 9.3 gm/dl (10.1-14.3); Mean Corpuscular HGB Conc 31 % (30-34); Mean Corpuscular Hemoglobin 26 pg (28-32); Mean Corpuscular Volume 84 fl (79-97); Red Blood Count 3.57 M/mm3 (3.65-5.03)
[2016-10-10 06:41] LABS: White Blood Count 38.5 K/mm3 (4.5-11.0)
[2016-10-10 06:47] LABS: BUN/Creatinine Ratio 41.33; Calcium 9.2 mg/dL (8.4-10.2); Chloride 108.3 mmol/L (98-107); Potassium 3.7 mmol/L (3.6-5.0)
[2016-10-10] MEDS ORDERED: TYLENOL PO ONE ×2 (08:00→15:00)
[2016-10-10] MEDS ORDERED: CALCIUM GLUCONATE 2,000 MG in NACL 0.9% 100 ML IV ONE (08:00)
[2016-10-10] MEDS ORDERED: BENADRYL IV ONE (08:00)
[2016-10-10 08:20] LABS: Basophils % (Manual) 0 % (0.0-1.8); Blastocytes % (Manual) 0 %; Smudge Cells 2+
[2016-10-10 08:21] LABS: Anisocytosis 2+; Microcytosis 1+; Ovalocytes 1+; Polychromasia 2+; Target Cells 2+
[2016-10-10 08:22] LABS: Basophilic Stippling Few; Diff Status Complete; Elliptocytes Rare; Large Platelets Few; Spherocytes 1+
[2016-10-10 08:23] LABS: Platelet Count 464 K/mm3 (140-440)
[2016-10-10] MEDS: BROVANA NEBU IH SCH ×2 (08:38→20:08)
[2016-10-10] MEDS: PULMICORT IH SCH ×2 (08:38→20:08)
--- NOTE | 2016-10-10 08:58 | Progress Note ---
Assessment and Plan - Patient Problems (1) Acute respiratory failure with hypoxia Current Visit: Yes Status: Acute Plan to address problem: 1. Unclear etiology. Patient has not responded to broad antibiotics, but may to hemodialysis. 2. Will check CD4 count as may have underlying immunosuppression for atypical pathogens. 3. Bronchoscopy may be useful in determining an etiology. (2) Acute renal failure due to tubular necrosis Current Visit: Yes Status: Acute Plan to address problem: 1. For vascath placement for hemodialysis. 2. Continue renally adjust meds. (3) Leukemoid reaction Current Visit: Yes Status: Acute Plan to address problem: 1. Some improvement coincident with stopping broad antibiotics, but has plateaued. 2. Air Conditioning Engineer consulted and evaluating. Subjective Date of service: 10/10/16 Principal diagnosis: Acute Hypoxemic Respiratory Failure; ARDS Interval history: Remains intubated in ICU. Febrile overnight to Tmax 100.8 deg F. Objective - Exam Narrative Exam: intubated, FiO2 65% - Constitutional Vitals: Vital Signs Temp Pulse Resp BP Pulse Ox 100.8 F H 74 21 137/58 97 10/10/16 04:00 10/10/16 08:45 10/10/16 08:45 10/10/16 08:28 10/10/16 08:28 Temperature -Last 24 Hours Temperature 100.8 F Temperature 100.6 F Temperature 99.8 F Temperature 99 F Temperature 100 F Temperature 99 F Temperature 99 F Temperature 99.2 F Temperature 99 F Temperature 99.0 F Temperature 100 F General appearance: Present: obese - EENT Eyes: no scleral icterus, exopthalmos - Respiratory Respiratory: bilateral: CTA, negative: rales, rhonchi - Cardiovascular Rhythm: regular Heart Sounds: Present: S1 & S2 Extremities: No edema Extremity abnormal: other (well-healing left hip incision, berta removed) - Gastrointestinal General gastrointestinal: Present: soft, non-distended, other (NG tube in place) - Integumentary Integumentary: no rash - Neurologic Neurologic: no focal deficits, other (sedated) - Labs CBC & Chem 7: 10/10/16 06:00 10/10/16 06:00 Labs: Abnormal lab results 10/01/16 10/09/16 10/09/16 Range/Units 00:55 07:40 10:00 WBC (4.5-11.0) K/mm3 RBC (3.65-5.03) M/mm3 Hgb (10.1-14.3) gm/dl Hct (30.3-42.9) % MCH (28-32) pg RDW (13.2-15.2) % Plt Count (140-440) K/mm3 Seg Neuts % (Manual) (40.0-70.0) % Lymphocytes % (Manual) (13.4-35.0) % Nucleated RBC % (0.0-0.9) % Seg Neutrophils # Man (1.8-7.7) K/mm3 Eosinophils # (Manual) (0.0-0.4) K/mm3 POC ABG pCO2 (35-45) POC ABG pO2 (80-105) Sodium 153 H (137-145) mmol/L Potassium 3.3 L (3.6-5.0) mmol/L Chloride 112.7 H (98-107) mmol/L Carbon Dioxide (22-30) mmol/L BUN 62 H (7-17) mg/dL Creatinine 1.7 H (0.7-1.2) mg/dL Glucose 146 H (65-100) mg/dL POC Glucose (70-105) Ferritin (13.0-400.0) ng/mL Triglycerides (2-149) mg/dL Crossmatch See Detail See Detail 10/09/16 10/09/16 10/10/16 Range/Units 12:06 17:08 00:01 WBC (4.5-11.0) K/mm3 RBC (3.65-5.03) M/mm3 Hgb (10.1-14.3) gm/dl Hct (30.3-42.9) % MCH (28-32) pg RDW (13.2-15.2) % Plt Count (140-440) K/mm3 Seg Neuts % (Manual) (40.0-70.0) % Lymphocytes % (Manual) (13.4-35.0) % Nucleated RBC % (0.0-0.9) % Seg Neutrophils # Man (1.8-7.7) K/mm3 Eosinophils # (Manual) (0.0-0.4) K/mm3 POC ABG pCO2 (35-45) POC ABG pO2 (80-105) Sodium (137-145) mmol/L Potassium (3.6-5.0) mmol/L Chloride (98-107) mmol/L Carbon Dioxide (22-30) mmol/L BUN (7-17) mg/dL Creatinine (0.7-1.2) mg/dL Glucose (65-100) mg/dL POC Glucose 214 H 152 H 189 H (70-105) Ferritin (13.0-400.0) ng/mL Triglycerides (2-149) mg/dL Crossmatch 10/10/16 10/10/16 10/10/16 Range/Units 04:25 05:28 06:00 WBC (4.5-11.0) K/mm3 RBC (3.65-5.03) M/mm3 Hgb (10.1-14.3) gm/dl Hct (30.3-42.9) % MCH (28-32) pg RDW (13.2-15.2) % Plt Count (140-440) K/mm3 Seg Neuts % (Manual) (40.0-70.0) % Lymphocytes % (Manual) (13.4-35.0) % Nucleated RBC % (0.0-0.9) % Seg Neutrophils # Man (1.8-7.7) K/mm3 Eosinophils # (Manual) (0.0-0.4) K/mm3 POC ABG pCO2 58.3 H (35-45) POC ABG pO2 68 L (80-105) Sodium (137-145) mmol/L Potassium (3.6-5.0) mmol/L Chloride (98-107) mmol/L Carbon Dioxide (22-30) mmol/L BUN (7-17) mg/dL Creatinine (0.7-1.2) mg/dL Glucose (65-100) mg/dL POC Glucose 155 H (70-105) Ferritin (13.0-400.0) ng/mL Triglycerides 407 H (2-149) mg/dL Crossmatch 10/10/16 10/10/16 10/10/16 Range/Units 06:00 06:00 06:00 WBC 38.5 H (4.5-11.0) K/mm3 RBC 3.57 L (3.65-5.03) M/mm3 Hgb 9.3 L (10.1-14.3) gm/dl Hct 30.1 L D (30.3-42.9) % MCH 26 L (28-32) pg RDW 22.0 H (13.2-15.2) % Plt Count 464 H (140-440) K/mm3 Seg Neuts % (Manual) 81.0 H (40.0-70.0) % Lymphocytes % (Manual) 9.0 L (13.4-35.0) % Nucleated RBC % 84.0 H (0.0-0.9) % Seg Neutrophils # Man 31.2 H (1.8-7.7) K/mm3 Eosinophils # (Manual) 1.2 H (0.0-0.4) K/mm3 POC ABG pCO2 (35-45) POC ABG pO2 (80-105) Sodium 153 H (137-145) mmol/L Potassium (3.6-5.0) mmol/L Chloride 108.3 H (98-107) mmol/L Carbon Dioxide 31 H (22-30) mmol/L BUN 62 H (7-17) mg/dL Creatinine 1.5 H (0.7-1.2) mg/dL Glucose 160 H (65-100) mg/dL POC Glucose (70-105) Ferritin 782.0 H (13.0-400.0) ng/mL Triglycerides (2-149) mg/dL Crossmatch Microbiology 10/04/16 04:05 Tracheal Aspirate Herpes Simplex Virus Culture - Final 10/03/16 09:20 Peripheral/Venous Blood Culture - Final NO GROWTH AFTER 5 DAYS 10/03/16 09:30 Picc Blood Culture - Final NO GROWTH AFTER 5 DAYS 10/03/16 09:06 Urine,Catheterized - Indwelling Catheter Urine Culture - Final 09/27/16 22:47 Peripheral/Venous Blood Culture - Final NO GROWTH AFTER 5 DAYS 09/27/16 22:47 Peripheral/Venous Blood Culture - Final NO GROWTH AFTER 5 DAYS 09/27/16 15:06 Peripheral/Venous Blood Culture - Final NO GROWTH AFTER 5 DAYS 09/27/16 14:40 Peripheral/Venous Blood Culture - Final NO GROWTH AFTER 5 DAYS 09/30/16 Unknown Tracheal Aspirate Sputum Culture - Final Active Medications Acetaminophen (Tylenol) 650 mg PO Q4H PRN PRN Reason: Pain MILD(1-3)/Fever >100.5/PALACIOS Last Admin: 10/07/16 18:13 Dose: 650 mg Albuterol/Ipratropium (Duoneb 0.5 Mg-3 Mg/3 Ml Soln) 1 ampul IH Q6HRT [facility] Last Admin: 10/10/16 08:38 Dose: Not Given Lipase/Protease/Amylase (Pancreaze Dr 10,500 Unit) 1 each FEEDTUBE PRN PRN PRN Reason: For Clogged Feeding Tube Arformoterol Tartrate (Brovana Nebu) 15 mcg IH Q12HRT [facility] Last Admin: 10/10/16 08:38 Dose: 15 mcg Aspirin (Aspirin) 325 mg PO QDAY [facility] Last Admin: 10/09/16 10:12 Dose: 325 mg Budesonide (Pulmicort) 0.5 mg IH Q12HRT [facility] Last Admin: 10/10/16 08:38 Dose: 0.5 mg Diphenhydramine HCl (Benadryl) 12.5 mg IV Q4H PRN PRN Reason: Itching Last Admin: 09/30/16 07:02 Dose: 12.5 mg Enoxaparin Sodium (Lovenox) 40 mg SUB-Q QDAY [facility] Last Admin: 10/09/16 10:10 Dose: 40 mg Famotidine (Pepcid) 20 mg PO BID [facility] Last Admin: 10/09/16 21:56 Dose: 20 mg Folic Acid (Folvite) 1 mg PO QDAY [facility] Last Admin: 10/09/16 10:12 Dose: 1 mg Furosemide (Lasix) 40 mg IV Q8H [facility] Last Admin: 10/10/16 00:44 Dose: 40 mg Hydrophilic Ointment (Vaseline Lip Therapy) 1 applic TP Q2HR PRN PRN Reason: Dry Lips Fentanyl Citrate (Fentanyl Drip Premix) 2,000 mcg in 100 mls @ 4.649 mls/hr IV TITR [facility]; 1 MCG/KG/HR PRN Reason: Protocol Last Admin: 10/10/16 05:27 Dose: 2 mcg/kg/hr, 9.299 mls/hr Propofol (Diprivan 10 Mg/Ml) 1,000 mg in 100 mls @ 2.79 mls/hr IV TITR [facility]; 5 MCG/KG/MIN PRN Reason: Protocol Last Admin: 10/10/16 00:41 Dose: 15 mcg/kg/min, 8.369 mls/hr Midazolam HCl 100 mg/ Sodium (Chloride) 100 mls @ 2 mls/hr IV TITR [facility]; 2 MG/HR PRN Reason: Protocol Last Admin: 10/04/16 12:54 Dose: 2 mg/hr, 2 mls/hr Metronidazole (Flagyl 500 Mg/100 Ml) 500 mg in 100 mls @ 100 mls/hr IV Q8HR [facility] Last Admin: 10/10/16 05:28 Dose: 100 mls/hr Sodium Chloride (Nacl 0.9% 500 Ml) 500 mls @ 0 mls/hr IV ONCE [facility] PRN Reason: As Directed Insulin Human Regular (Novolin R) 0 units SUB-Q Q6HR [facility] PRN Reason: Protocol Last Admin: 10/10/16 05:32 Dose: 1 units Multi-Ingred Cream/Lotion/Oil/Oint (Artificial Tears Ophth Oint) 1 applic OU Q4HR PRN PRN Reason: Dry Eye(s) Multivitamins (Theragran Tab) 1 each PO QDAY [facility] Last Admin: 10/08/16 09:47 Dose: 1 each Ondansetron HCl (Zofran) 4 mg IV Q8H PRN PRN Reason: Nausea And Vomiting Last Admin: 09/29/16 23:07 Dose: 4 mg Promethazine HCl (Phenergan) 25 mg MS Q6H PRN PRN Reason: Nausea And Vomiting Last Admin: 09/25/16 22:05 Dose: 25 mg Senna (Senokot) 17.2 mg PO DAILY [facility] Last Admin: 10/09/16 10:11 Dose: 17.2 mg Simple Syrup (Simple Syrup) 15 ml FEEDTUBE PRN PRN PRN Reason: Hypoglycemia Simple Syrup (Simple Syrup) 30 ml FEEDTUBE PRN PRN PRN Reason: Hypoglycemia Sodium Bicarbonate (Sodium Bicarbonate) 325 mg FEEDTUBE PRN PRN PRN Reason: For Clogged Feeding Tube Sodium Chloride (Sodium Chloride Flush Syringe 10 Ml) 10 ml IV PRN PRN PRN Reason: LINE FLUSH Tramadol HCl (Ultram) 50 mg PO Q4H PRN PRN Reason: Pain, Moderate (4-6) Last Admin: 10/06/16 21:54 Dose: 50 mg Valacyclovir HCl (Valtrex) 500 mg PO DAILY [facility] Last Admin: 10/09/16 10:13 Dose: 500 mg Zolpidem Tartrate (Ambien) 5 mg PO QHS PRN PRN Reason: Sleep
--- NOTE | 2016-10-10 09:47 | Progress Note ---
Assessment and Plan 1) Avascular necrosis of bone of left hip Current Visit: Yes Status: Chronic Plan to address problem: S/P Athroplasty to left hip on 09/25/16 (2) Acute respiratory failure with hypoxia Current Visit: Yes Status: Acute Plan to address problem: ARDS, On vent support as per pulmonary (3) Acute renal failure due to tubular necrosis Current Visit: Yes Status: Acute Plan to address problem: improved cr since yesterday, stable BUN, good response to lasix Avoid Nephrotoxic agents Renally dose medications Monitor I/O's (4) Sepsis syndrome Current Visit: Yes Status: Acute Plan to address problem: ID on board. negative cultures (5) Acute hypernatremia Current Visit: Yes Status: Acute Plan to address problem: will cont current water flushes order, recorded I&O does not reflect receiving 400 cc Q4H, I discussed with nurse the importance and administrating and recording water flushes will add D5W 50 cc/h and increase as needed to correct hypernatremia Subjective Date of service: 10/10/16 Principal diagnosis: Acute Hypoxemic Respiratory Failure; ARDS Interval history: sedated and intubated, she was getting vasctah placed this AM Objective - Vital Signs Vital signs: Vital Signs - 12hr 10/09/16 10/09/16 10/10/16 22:01 22:12 00:00 Temperature 100.6 F H Pulse Rate Pulse Rate [ 104 H 95 H Anterior Bilateral Throughout] Respiratory Rate Respiratory 27 H 23 Rate [Anterior Bilateral Throughout] Blood Pressure O2 Sat by Pulse Oximetry 10/10/16 10/10/16 10/10/16 00:11 00:21 00:26 Temperature Pulse Rate 99 H 96 H 96 H Pulse Rate [ Anterior Bilateral Throughout] Respiratory 16 15 14 Rate Respiratory Rate [Anterior Bilateral Throughout] Blood Pressure 140/71 119/56 119/56 O2 Sat by Pulse 97 97 96 Oximetry 10/10/16 10/10/16 10/10/16 00:30 00:41 00:51 Temperature Pulse Rate 89 95 H 98 H Pulse Rate [ Anterior Bilateral Throughout] Respiratory 14 16 22 Rate Respiratory Rate [Anterior Bilateral Throughout] Blood Pressure 129/49 129/49 150/92 O2 Sat by Pulse 94 97 94 Oximetry 10/10/16 10/10/16 10/10/16 01:00 01:11 01:21 Temperature Pulse Rate 93 H 104 H 103 H Pulse Rate [ Anterior Bilateral Throughout] Respiratory 19 21 18 Rate Respiratory Rate [Anterior Bilateral Throughout] Blood Pressure 139/92 139/92 168/94 O2 Sat by Pulse 94 96 Oximetry 10/10/16 10/10/16 10/10/16 01:30 01:41 01:51 Temperature Pulse Rate 92 H 96 H 93 H Pulse Rate [ Anterior Bilateral Throughout] Respiratory 21 20 16 Rate Respiratory Rate [Anterior Bilateral Throughout] Blood Pressure 145/81 145/81 160/72 O2 Sat by Pulse 89 96 98 Oximetry 10/10/16 10/10/16 10/10/16 02:00 02:11 02:21 Temperature Pulse Rate 102 H 103 H 90 Pulse Rate [ Anterior Bilateral Throughout] Respiratory 17 15 15 Rate Respiratory Rate [Anterior Bilateral Throughout] Blood Pressure 134/88 134/88 149/73 O2 Sat by Pulse 97 98 98 Oximetry 10/10/16 10/10/16 10/10/16 02:30 02:41 02:51 Temperature Pulse Rate 102 H 101 H 103 H Pulse Rate [ Anterior Bilateral Throughout] Respiratory 17 16 16 Rate Respiratory Rate [Anterior Bilateral Throughout] Blood Pressure 137/91 137/91 134/88 O2 Sat by Pulse 97 97 Oximetry 10/10/16 10/10/16 10/10/16 03:00 03:11 03:16 Temperature Pulse Rate 92 H 107 H Pulse Rate [ 102 H Anterior Bilateral Throughout] Respiratory 19 21 Rate Respiratory 14 Rate [Anterior Bilateral Throughout] Blood Pressure 151/71 151/71 O2 Sat by Pulse 89 97 Oximetry 10/10/16 10/10/16 10/10/16 03:21 03:30 03:41 Temperature Pulse Rate 85 79 94 H Pulse Rate [ Anterior Bilateral Throughout] Respiratory 17 16 15 Rate Respiratory Rate [Anterior Bilateral Throughout] Blood Pressure 137/66 129/67 129/67 O2 Sat by Pulse 97 94 97 Oximetry 10/10/16 10/10/16 10/10/16 03:51 04:00 04:11 Temperature 100.8 F H Pulse Rate 99 H 99 H 95 H Pulse Rate [ Anterior Bilateral Throughout] Respiratory 14 14 13 Rate Respiratory Rate [Anterior Bilateral Throughout] Blood Pressure 136/74 128/70 128/70 O2 Sat by Pulse 97 95 97 Oximetry 10/10/16 10/10/16 10/10/16 04:21 04:30 04:41 Temperature Pulse Rate 84 96 H 89 Pulse Rate [ Anterior Bilateral Throughout] Respiratory 15 19 14 Rate Respiratory Rate [Anterior Bilateral Throughout] Blood Pressure 158/73 174/89 174/89 O2 Sat by Pulse 97 90 97 Oximetry 10/10/16 10/10/16 10/10/16 04:51 05:00 05:11 Temperature Pulse Rate 96 H 94 H 102 H Pulse Rate [ Anterior Bilateral Throughout] Respiratory 19 20 23 Rate Respiratory Rate [Anterior Bilateral Throughout] Blood Pressure 150/86 129/72 129/72 O2 Sat by Pulse 95 92 98 Oximetry 10/10/16 10/10/16 10/10/16 05:21 05:30 05:41 Temperature Pulse Rate 97 H 82 90 Pulse Rate [ Anterior Bilateral Throughout] Respiratory 19 16 14 Rate Respiratory Rate [Anterior Bilateral Throughout] Blood Pressure 101/80 154/71 154/71 O2 Sat by Pulse 97 91 97 Oximetry 10/10/16 10/10/16 10/10/16 05:51 06:00 06:11 Temperature Pulse Rate 93 H 102 H 100 H Pulse Rate [ Anterior Bilateral Throughout] Respiratory 22 21 17 Rate Respiratory Rate [Anterior Bilateral Throughout] Blood Pressure 170/78 159/91 159/91 O2 Sat by Pulse 96 93 98 Oximetry 10/10/16 10/10/16 10/10/16 06:21 06:30 06:41 Temperature Pulse Rate 98 H 98 H 95 H Pulse Rate [ Anterior Bilateral Throughout] Respiratory 14 18 14 Rate Respiratory Rate [Anterior Bilateral Throughout] Blood Pressure 151/82 158/75 158/75 O2 Sat by Pulse 97 95 97 Oximetry 10/10/16 10/10/16 10/10/16 06:51 07:00 07:11 Temperature Pulse Rate 98 H 98 H 99 H Pulse Rate [ Anterior Bilateral Throughout] Respiratory 14 14 14 Rate Respiratory Rate [Anterior Bilateral Throughout] Blood Pressure 139/71 136/69 136/69 O2 Sat by Pulse 97 96 97 Oximetry 10/10/16 10/10/16 10/10/16 07:21 07:30 07:41 Temperature Pulse Rate 94 H 93 H 100 H Pulse Rate [ Anterior Bilateral Throughout] Respiratory 14 14 16 Rate Respiratory Rate [Anterior Bilateral Throughout] Blood Pressure 121/50 137/71 137/71 O2 Sat by Pulse 97 93 96 Oximetry 10/10/16 10/10/16 10/10/16 07:51 08:00 08:11 Temperature Pulse Rate 99 H 91 H 97 H Pulse Rate [ 89 Anterior Bilateral Throughout] Respiratory 18 14 14 Rate Respiratory 16 Rate [Anterior Bilateral Throughout] Blood Pressure 152/79 120/69 120/69 O2 Sat by Pulse 96 95 97 Oximetry 10/10/16 10/10/16 10/10/16 08:21 08:28 08:45 Temperature Pulse Rate 99 H 95 H Pulse Rate [ 74 Anterior Bilateral Throughout] Respiratory 14 0 L Rate Respiratory 21 Rate [Anterior Bilateral Throughout] Blood Pressure 137/58 137/58 O2 Sat by Pulse 97 97 Oximetry - General Appearance General appearance: sedated on ventilator, intubated EENT: ATNC, PERRL, mucous membranes dry Neck: no JVD, no carotid bruit Respiratory: Present: Rales, Ronchi, Decreased Breath Sounds Cardiology: tachycardia, S1S2 Gastrointestinal: normoactive bowel sounds, no tenderness, no distended, no masses, obese Integumentary: no rash, warm and dry Neurologic: other (sedated) Musculoskeletal: other (edema in all ext) Psychiatric: other (sedated and intubated) - Lab 10/10/16 06:00 10/10/16 06:00 Most recent lab results Calcium 9.2 mg/dL (8.4-10.2) 10/10/16 06:00 Phosphorus 3.60 mg/dL (2.5-4.5) 10/04/16 04:03 Urine Creatinine 63.2 mg/dL (0.1-20.0) H 10/03/16 15:54 Urine Sodium 20 mEq/L 10/03/16 15:54 Urine Total Protein 67 mg/dL (5-11.8) H 10/03/16 15:54
--- NOTE | 2016-10-10 10:48 | Progress Note ---
Assessment and Plan - Patient Problems (1) Acute respiratory failure with hypoxia Current Visit: Yes Status: Acute Plan to address problem: - continue APRV - permissive hypercapnia - continue bronchodilators and pulmonary toilet - continue aspiration precautions / VAP bundles - continue to wean oxygen for sats > 90-92% at this point - serial ABG's - lighten sedation to allow spontaneous breathing also - repeat CXR now - continue diuresis / targeting negative fluid balance - for exchange blood transfusion - will consider bronchoscopy with BAL once more stable (2) ARDS (adult respiratory distress syndrome) Current Visit: Yes Status: Acute Plan to address problem: - 2D ECHO reports normal EF without impaired relaxation - non cardiogenic pulmonary edema - etiology unclear - treating empirically as HCAP - switched to APRV and tolerating so far (3) Obesity Current Visit: Yes Status: Acute Qualifiers: Obesity type: O Obesity severity: O Plan to address problem: - weight loss counselled earlier - outpatient sleep clinic evaluation at discharge (4) Sepsis syndrome Current Visit: Yes Status: Acute Plan to address problem: - continue anti-infectives per ID recs - trend CRP / lactate prn (5) Anemia Current Visit: Yes Status: Acute Qualifiers: Anemia type: A Iron deficiency anemia type: I Vitamin B12 deficiency anemia type: V Folate deficiency anemia type: F Bone marrow failure anemia type: B Hemolytic anemia type: H Other causes of anemia: O Plan to address problem: - multifactorial - suspect ABLA component - h/o sickle cell - prn PRBC transfusions - hematology following - for EBT now (6) CARLYN (acute kidney injury) Current Visit: Yes Status: Acute Plan to address problem: - non oliguric - per nephrology recommendations (7) Discharge planning issues Current Visit: Yes Status: Acute Plan to address problem: franca to address problem: - appears may be a prolonged ICU stay .....she remains critically ill on life sustaining interventions including MVS and at risk for further deterioration including 34' CCT Subjective Date of service: 10/10/16 Principal diagnosis: Acute Hypoxemic Respiratory Failure; ARDS Interval history: Seen and examined at bedside; 24 hour events reviewed; nursing and respiratory care staff consulted; no adverse overnight events reported to me; Objective Vital Signs - 12hr 10/10/16 10/10/16 10/10/16 00:00 00:11 00:21 Temperature 100.6 F H Pulse Rate 99 H 96 H Pulse Rate [ Anterior Bilateral Throughout] Respiratory 16 15 Rate Respiratory Rate [Anterior Bilateral Throughout] Blood Pressure 140/71 119/56 O2 Sat by Pulse 97 97 Oximetry 10/10/16 10/10/16 10/10/16 00:26 00:30 00:41 Temperature Pulse Rate 96 H 89 95 H Pulse Rate [ Anterior Bilateral Throughout] Respiratory 14 14 16 Rate Respiratory Rate [Anterior Bilateral Throughout] Blood Pressure 119/56 129/49 129/49 O2 Sat by Pulse 96 94 97 Oximetry 10/10/16 10/10/16 10/10/16 00:51 01:00 01:11 Temperature Pulse Rate 98 H 93 H 104 H Pulse Rate [ Anterior Bilateral Throughout] Respiratory 22 19 21 Rate Respiratory Rate [Anterior Bilateral Throughout] Blood Pressure 150/92 139/92 139/92 O2 Sat by Pulse 94 94 Oximetry 10/10/16 10/10/16 10/10/16 01:21 01:30 01:41 Temperature Pulse Rate 103 H 92 H 96 H Pulse Rate [ Anterior Bilateral Throughout] Respiratory 18 21 20 Rate Respiratory Rate [Anterior Bilateral Throughout] Blood Pressure 168/94 145/81 145/81 O2 Sat by Pulse 96 89 96 Oximetry 10/10/16 10/10/16 10/10/16 01:51 02:00 02:11 Temperature Pulse Rate 93 H 102 H 103 H Pulse Rate [ Anterior Bilateral Throughout] Respiratory 16 17 15 Rate Respiratory Rate [Anterior Bilateral Throughout] Blood Pressure 160/72 134/88 134/88 O2 Sat by Pulse 98 97 98 Oximetry 10/10/16 10/10/16 10/10/16 02:21 02:30 02:41 Temperature Pulse Rate 90 102 H 101 H Pulse Rate [ Anterior Bilateral Throughout] Respiratory 15 17 16 Rate Respiratory Rate [Anterior Bilateral Throughout] Blood Pressure 149/73 137/91 137/91 O2 Sat by Pulse 98 97 Oximetry 10/10/16 10/10/16 10/10/16 02:51 03:00 03:11 Temperature Pulse Rate 103 H 92 H 107 H Pulse Rate [ Anterior Bilateral Throughout] Respiratory 16 19 21 Rate Respiratory Rate [Anterior Bilateral Throughout] Blood Pressure 134/88 151/71 151/71 O2 Sat by Pulse 97 89 97 Oximetry 10/10/16 10/10/16 10/10/16 03:16 03:21 03:30 Temperature Pulse Rate 85 79 Pulse Rate [ 102 H Anterior Bilateral Throughout] Respiratory 17 16 Rate Respiratory 14 Rate [Anterior Bilateral Throughout] Blood Pressure 137/66 129/67 O2 Sat by Pulse 97 94 Oximetry 10/10/16 10/10/16 10/10/16 03:41 03:51 04:00 Temperature 100.8 F H Pulse Rate 94 H 99 H 99 H Pulse Rate [ Anterior Bilateral Throughout] Respiratory 15 14 14 Rate Respiratory Rate [Anterior Bilateral Throughout] Blood Pressure 129/67 136/74 128/70 O2 Sat by Pulse 97 97 95 Oximetry 10/10/16 10/10/16 10/10/16 04:11 04:21 04:30 Temperature Pulse Rate 95 H 84 96 H Pulse Rate [ Anterior Bilateral Throughout] Respiratory 13 15 19 Rate Respiratory Rate [Anterior Bilateral Throughout] Blood Pressure 128/70 158/73 174/89 O2 Sat by Pulse 97 97 90 Oximetry 10/10/16 10/10/16 10/10/16 04:41 04:51 05:00 Temperature Pulse Rate 89 96 H 94 H Pulse Rate [ Anterior Bilateral Throughout] Respiratory 14 19 20 Rate Respiratory Rate [Anterior Bilateral Throughout] Blood Pressure 174/89 150/86 129/72 O2 Sat by Pulse 97 95 92 Oximetry 10/10/16 10/10/16 10/10/16 05:11 05:21 05:30 Temperature Pulse Rate 102 H 97 H 82 Pulse Rate [ Anterior Bilateral Throughout] Respiratory 23 19 16 Rate Respiratory Rate [Anterior Bilateral Throughout] Blood Pressure 129/72 101/80 154/71 O2 Sat by Pulse 98 97 91 Oximetry 10/10/16 10/10/16 10/10/16 05:41 05:51 06:00 Temperature Pulse Rate 90 93 H 102 H Pulse Rate [ Anterior Bilateral Throughout] Respiratory 14 22 21 Rate Respiratory Rate [Anterior Bilateral Throughout] Blood Pressure 154/71 170/78 159/91 O2 Sat by Pulse 97 96 93 Oximetry 10/10/16 10/10/16 10/10/16 06:11 06:21 06:30 Temperature Pulse Rate 100 H 98 H 98 H Pulse Rate [ Anterior Bilateral Throughout] Respiratory 17 14 18 Rate Respiratory Rate [Anterior Bilateral Throughout] Blood Pressure 159/91 151/82 158/75 O2 Sat by Pulse 98 97 95 Oximetry 10/10/16 10/10/16 10/10/16 06:41 06:51 07:00 Temperature Pulse Rate 95 H 98 H 98 H Pulse Rate [ Anterior Bilateral Throughout] Respiratory 14 14 14 Rate Respiratory Rate [Anterior Bilateral Throughout] Blood Pressure 158/75 139/71 136/69 O2 Sat by Pulse 97 97 96 Oximetry 10/10/16 10/10/16 10/10/16 07:11 07:21 07:30 Temperature Pulse Rate 99 H 94 H 93 H Pulse Rate [ Anterior Bilateral Throughout] Respiratory 14 14 14 Rate Respiratory Rate [Anterior Bilateral Throughout] Blood Pressure 136/69 121/50 137/71 O2 Sat by Pulse 97 97 93 Oximetry 10/10/16 10/10/16 10/10/16 07:41 07:51 08:00 Temperature 100.4 F H Pulse Rate 100 H 99 H 91 H Pulse Rate [ 89 Anterior Bilateral Throughout] Respiratory 16 18 14 Rate Respiratory 16 Rate [Anterior Bilateral Throughout] Blood Pressure 137/71 152/79 120/69 O2 Sat by Pulse 96 96 95 Oximetry 10/10/16 10/10/16 10/10/16 08:11 08:21 08:28 Temperature Pulse Rate 97 H 99 H 95 H Pulse Rate [ Anterior Bilateral Throughout] Respiratory 14 14 0 L Rate Respiratory Rate [Anterior Bilateral Throughout] Blood Pressure 120/69 137/58 137/58 O2 Sat by Pulse 97 97 97 Oximetry 10/10/16 08:45 Temperature Pulse Rate Pulse Rate [ 74 Anterior Bilateral Throughout] Respiratory Rate Respiratory 21 Rate [Anterior Bilateral Throughout] Blood Pressure O2 Sat by Pulse Oximetry Constitutional: appears uncomfortable, other (sedated) Eyes: non-icteric ENT: oropharynx moist Neck: supple, no lymphadenopathy Effort: mildly labored Ascultation: Bilateral: diminished breath sounds, rales, rhonchi Cardiovascular: regular rate and rhythm Gastrointestinal: normoactive bowel sounds, soft, non-tender, non-distended Integumentary: normal Extremities: no cyanosis, no edema, pulses normal, no ischemia or petechiae Neurologic: unable to assess Psychiatric: other (sedated now) CBC and BMP: 10/10/16 06:00 10/10/16 06:00 ABG, PT/INR, D-dimer: ABG POC ABG pH 7.396 (7.35-7.45) 10/10/16 04:25 POC ABG pCO2 58.3 (35-45) H 10/10/16 04:25 POC ABG pO2 68 (80-105) L 10/10/16 04:25 POC ABG HCO3 35.8 10/10/16 04:25 POC ABG Total CO2 38 10/10/16 04:25 POC ABG O2 Sat 93 10/10/16 04:25 PT/INR, D-dimer PT 14.5 Sec. (12.2-14.9) 09/20/16 10:35 INR 1.14 (0.87-1.13) H 09/20/16 10:35 D-Dimer 4758.12 ng/mlDDU (0-234) H 09/27/16 22:47 Abnormal lab findings: Abnormal Labs 09/20/16 09/20/16 09/20/16 10:35 10:35 10:35 WBC 11.7 H RBC Hgb Hct MCV 75 L MCH 24 L RDW 16.6 H Plt Count Seg Neuts % (Manual) Lymphocytes % (Manual) Monocytes % (Manual) Eosinophils % (Manual) Nucleated RBC % Seg Neutrophils # Man Lymphocytes # (Manual) Monocytes # (Manual) Eosinophils # (Manual) Percent Retic INR 1.14 H D-Dimer POC ABG pH POC ABG pCO2 POC ABG pO2 Sodium Potassium Chloride Carbon Dioxide BUN Creatinine 0.5 L Glucose 115 H POC Glucose Lactic Acid Calcium Ferritin Total Bilirubin 2.0 H Lactate Dehydrogenase Total Creatine Kinase CK-MB (CK-2) C-Reactive Protein NT-Pro-B Natriuret Pep Total Protein Albumin Triglycerides Urine WBC (Auto) Urine Creatinine Urine Total Protein Vancomycin Trough Random Vancomycin Crossmatch 09/26/16 09/26/16 09/27/16 04:26 04:26 10:26 WBC RBC Hgb 8.9 L Hct 28.0 L MCV MCH RDW Plt Count Seg Neuts % (Manual) Lymphocytes % (Manual) Monocytes % (Manual) Eosinophils % (Manual) Nucleated RBC % Seg Neutrophils # Man Lymphocytes # (Manual) Monocytes # (Manual) Eosinophils # (Manual) Percent Retic INR D-Dimer POC ABG pH 7.283 L POC ABG pCO2 45.3 H POC ABG pO2 79 L Sodium Potassium Chloride Carbon Dioxide 20 L BUN Creatinine Glucose 129 H POC Glucose Lactic Acid Calcium 7.6 L Ferritin Total Bilirubin Lactate Dehydrogenase Total Creatine Kinase CK-MB (CK-2) C-Reactive Protein NT-Pro-B Natriuret Pep Total Protein Albumin Triglycerides Urine WBC (Auto) Urine Creatinine Urine Total Protein Vancomycin Trough Random Vancomycin Crossmatch 09/27/16 09/27/16 09/27/16 14:40 14:40 15:14 WBC 39.3 H RBC Hgb 9.3 L Hct 28.9 L MCV 75 L MCH 24 L RDW 18.7 H Plt Count Seg Neuts % (Manual) 93.5 H Lymphocytes % (Manual) 5.0 L Monocytes % (Manual) Eosinophils % (Manual) Nucleated RBC % Seg Neutrophils # Man 36.7 H Lymphocytes # (Manual) Monocytes # (Manual) Eosinophils # (Manual) Percent Retic INR D-Dimer POC ABG pH POC ABG pCO2 POC ABG pO2 Sodium Potassium Chloride Carbon Dioxide BUN Creatinine Glucose POC Glucose Lactic Acid 2.9 H* Calcium Ferritin Total Bilirubin Lactate Dehydrogenase Total Creatine Kinase 3575 H CK-MB (CK-2) 11.0 H C-Reactive Protein 16.10 H NT-Pro-B Natriuret Pep Total Protein Albumin Triglycerides Urine WBC (Auto) Urine Creatinine Urine Total Protein Vancomycin Trough Random Vancomycin Crossmatch 09/27/16 09/27/16 09/27/16 18:05 22:47 22:47 WBC RBC Hgb Hct MCV MCH RDW Plt Count Seg Neuts % (Manual) Lymphocytes % (Manual) Monocytes % (Manual) Eosinophils % (Manual) Nucleated RBC % Seg Neutrophils # Man Lymphocytes # (Manual) Monocytes # (Manual) Eosinophils # (Manual) Percent Retic INR D-Dimer 4758.12 H POC ABG pH POC ABG pCO2 POC ABG pO2 70 L Sodium Potassium Chloride Carbon Dioxide BUN Creatinine Glucose POC Glucose Lactic Acid Calcium Ferritin Total Bilirubin Lactate Dehydrogenase 829 H Total Creatine Kinase CK-MB (CK-2) C-Reactive Protein NT-Pro-B Natriuret Pep Total Protein Albumin Triglycerides Urine WBC (Auto) Urine Creatinine Urine Total Protein Vancomycin Trough Random Vancomycin Crossmatch 09/27/16 09/28/16 09/28/16 22:47 09:20 10:47 WBC RBC Hgb Hct MCV MCH RDW Plt Count Seg Neuts % (Manual) Lymphocytes % (Manual) Monocytes % (Manual) Eosinophils % (Manual) Nucleated RBC % Seg Neutrophils # Man Lymphocytes # (Manual) Monocytes # (Manual) Eosinophils # (Manual) Percent Retic 8.11 H INR D-Dimer POC ABG pH POC ABG pCO2 47.2 H POC ABG pO2 70 L Sodium Potassium Chloride Carbon Dioxide BUN Creatinine 0.6 L Glucose 137 H POC Glucose Lactic Acid Calcium Ferritin Total Bilirubin Lactate Dehydrogenase Total Creatine Kinase CK-MB (CK-2) C-Reactive Protein NT-Pro-B Natriuret Pep Total Protein Albumin Triglycerides Urine WBC (Auto) Urine Creatinine Urine Total Protein Vancomycin Trough Random Vancomycin Crossmatch 09/28/16 09/30/16 09/30/16 10:47 11:01 14:05 WBC 30.3 H RBC 3.27 L Hgb 8.1 L Hct 24.4 L MCV 75 L MCH 25 L RDW 18.9 H Plt Count Seg Neuts % (Manual) Lymphocytes % (Manual) 12.0 L Monocytes % (Manual) Eosinophils % (Manual) Nucleated RBC % 5.0 H Seg Neutrophils # Man 21.2 H Lymphocytes # (Manual) Monocytes # (Manual) 1.8 H Eosinophils # (Manual) Percent Retic INR D-Dimer POC ABG pH POC ABG pCO2 48.8 H POC ABG pO2 52 L Sodium Potassium Chloride Carbon Dioxide BUN Creatinine Glucose POC Glucose Lactic Acid Calcium Ferritin Total Bilirubin Lactate Dehydrogenase Total Creatine Kinase CK-MB (CK-2) C-Reactive Protein NT-Pro-B Natriuret Pep 2018 H Total Protein Albumin Triglycerides Urine WBC (Auto) Urine Creatinine Urine Total Protein Vancomycin Trough Random Vancomycin Crossmatch 09/30/16 09/30/16 09/30/16 14:05 14:05 14:05 WBC 22.1 H RBC 2.76 L Hgb 6.9 L Hct 20.6 L MCV 75 L MCH 25 L RDW 18.7 H Plt Count Seg Neuts % (Manual) 74.0 H Lymphocytes % (Manual) 7.0 L Monocytes % (Manual) Eosinophils % (Manual) Nucleated RBC % 52.0 H Seg Neutrophils # Man 16.4 H Lymphocytes # (Manual) Monocytes # (Manual) Eosinophils # (Manual) Percent Retic INR D-Dimer POC ABG pH POC ABG pCO2 POC ABG pO2 Sodium Potassium 3.1 L Chloride Carbon Dioxide BUN Creatinine 0.5 L Glucose 116 H POC Glucose Lactic Acid Calcium 8.2 L Ferritin Total Bilirubin Lactate Dehydrogenase Total Creatine Kinase CK-MB (CK-2) C-Reactive Protein 30.80 H NT-Pro-B Natriuret Pep Total Protein Albumin Triglycerides Urine WBC (Auto) Urine Creatinine Urine Total Protein Vancomycin Trough Random Vancomycin Crossmatch 05/01/17 05/02/17 05/02/17 14:33 00:55 00:55 WBC 26.1 H RBC 2.80 L Hgb 6.8 L Hct 20.8 L MCV 74 L MCH 24 L RDW 18.6 H Plt Count Seg Neuts % (Manual) 85.0 H Lymphocytes % (Manual) 11.0 L Monocytes % (Manual) Eosinophils % (Manual) Nucleated RBC % 21.0 H Seg Neutrophils # Man 22.2 H Lymphocytes # (Manual) Monocytes # (Manual) 1.0 H Eosinophils # (Manual) Percent Retic INR D-Dimer POC ABG pH POC ABG pCO2 47.8 H POC ABG pO2 201 H Sodium Potassium Chloride Carbon Dioxide BUN Creatinine Glucose POC Glucose Lactic Acid Calcium Ferritin Total Bilirubin Lactate Dehydrogenase Total Creatine Kinase CK-MB (CK-2) C-Reactive Protein NT-Pro-B Natriuret Pep Total Protein Albumin Triglycerides Urine WBC (Auto) Urine Creatinine Urine Total Protein Vancomycin Trough Random Vancomycin Crossmatch See Detail 10/01/16 10/01/16 10/01/16 04:57 05:00 13:01 WBC RBC Hgb Hct MCV MCH RDW Plt Count Seg Neuts % (Manual) Lymphocytes % (Manual) Monocytes % (Manual) Eosinophils % (Manual) Nucleated RBC % Seg Neutrophils # Man Lymphocytes # (Manual) Monocytes # (Manual) Eosinophils # (Manual) Percent Retic INR D-Dimer POC ABG pH POC ABG pCO2 58.5 H POC ABG pO2 149 H Sodium 149 H Potassium 3.0 L Chloride Carbon Dioxide BUN Creatinine Glucose POC Glucose 120 H Lactic Acid Calcium 8.3 L Ferritin Total Bilirubin Lactate Dehydrogenase Total Creatine Kinase CK-MB (CK-2) C-Reactive Protein NT-Pro-B Natriuret Pep Total Protein Albumin Triglycerides Urine WBC (Auto) Urine Creatinine Urine Total Protein Vancomycin Trough Random Vancomycin Crossmatch 10/01/16 10/01/16 10/01/16 15:43 17:44 23:37 WBC 27.6 H RBC 3.55 L Hgb 8.9 L Hct 27.6 L D MCV 78 L D MCH 25 L RDW 18.1 H Plt Count Seg Neuts % (Manual) 79.5 H Lymphocytes % (Manual) 8.0 L Monocytes % (Manual) Eosinophils % (Manual) Nucleated RBC % 65.0 H Seg Neutrophils # Man 21.9 H Lymphocytes # (Manual) Monocytes # (Manual) 1.0 H Eosinophils # (Manual) Percent Retic INR D-Dimer POC ABG pH POC ABG pCO2 POC ABG pO2 Sodium Potassium Chloride Carbon Dioxide BUN Creatinine Glucose POC Glucose 121 H 129 H Lactic Acid Calcium Ferritin Total Bilirubin Lactate Dehydrogenase Total Creatine Kinase CK-MB (CK-2) C-Reactive Protein NT-Pro-B Natriuret Pep Total Protein Albumin Triglycerides Urine WBC (Auto) Urine Creatinine Urine Total Protein Vancomycin Trough Random Vancomycin Crossmatch 10/02/16 10/02/16 10/02/16 05:05 05:40 06:00 WBC 23.0 H RBC 3.30 L Hgb 8.3 L Hct 25.8 L MCV 78 L MCH 25 L RDW 18.2 H Plt Count Seg Neuts % (Manual) 83.5 H Lymphocytes % (Manual) 4.0 L Monocytes % (Manual) Eosinophils % (Manual) Nucleated RBC % 14.5 H Seg Neutrophils # Man 25.1 H Lymphocytes # (Manual) Monocytes # (Manual) 1.7 H Eosinophils # (Manual) Percent Retic INR D-Dimer POC ABG pH POC ABG pCO2 50.5 H POC ABG pO2 Sodium Potassium Chloride Carbon Dioxide BUN Creatinine Glucose POC Glucose 123 H Lactic Acid Calcium Ferritin Total Bilirubin Lactate Dehydrogenase Total Creatine Kinase CK-MB (CK-2) C-Reactive Protein NT-Pro-B Natriuret Pep Total Protein Albumin Triglycerides Urine WBC (Auto) Urine Creatinine Urine Total Protein Vancomycin Trough Random Vancomycin Crossmatch 10/02/16 10/02/16 10/02/16 06:00 11:42 21:52 WBC RBC Hgb Hct MCV MCH RDW Plt Count Seg Neuts % (Manual) Lymphocytes % (Manual) Monocytes % (Manual) Eosinophils % (Manual) Nucleated RBC % Seg Neutrophils # Man Lymphocytes # (Manual) Monocytes # (Manual) Eosinophils # (Manual) Percent Retic INR D-Dimer POC ABG pH 7.324 L POC ABG pCO2 60.5 H POC ABG pO2 74 L Sodium 150 H Potassium Chloride 108.3 H Carbon Dioxide BUN 20 H Creatinine 1.4 H D Glucose 117 H POC Glucose 135 H Lactic Acid Calcium Ferritin Total Bilirubin Lactate Dehydrogenase Total Creatine Kinase CK-MB (CK-2) C-Reactive Protein NT-Pro-B Natriuret Pep Total Protein Albumin Triglycerides Urine WBC (Auto) Urine Creatinine Urine Total Protein Vancomycin Trough Random Vancomycin Crossmatch 10/02/16 10/03/16 10/03/16 23:26 05:55 08:17 WBC 32.0 H RBC 3.13 L Hgb 7.9 L Hct 24.6 L MCV MCH 25 L RDW 18.9 H Plt Count 132 L Seg Neuts % (Manual) 75.0 H Lymphocytes % (Manual) 5.0 L Monocytes % (Manual) Eosinophils % (Manual) Nucleated RBC % 26.0 H Seg Neutrophils # Man 24.0 H Lymphocytes # (Manual) Monocytes # (Manual) 1.0 H Eosinophils # (Manual) 1.0 H Percent Retic INR D-Dimer POC ABG pH POC ABG pCO2 POC ABG pO2 Sodium Potassium Chloride Carbon Dioxide BUN Creatinine Glucose POC Glucose 121 H 145 H Lactic Acid Calcium Ferritin Total Bilirubin Lactate Dehydrogenase Total Creatine Kinase CK-MB (CK-2) C-Reactive Protein NT-Pro-B Natriuret Pep Total Protein Albumin Triglycerides Urine WBC (Auto) Urine Creatinine Urine Total Protein Vancomycin Trough Random Vancomycin Crossmatch 10/03/16 10/03/16 10/03/16 08:17 09:26 11:34 WBC RBC Hgb Hct MCV MCH RDW Plt Count Seg Neuts % (Manual) Lymphocytes % (Manual) Monocytes % (Manual) Eosinophils % (Manual) Nucleated RBC % Seg Neutrophils # Man Lymphocytes # (Manual) Monocytes # (Manual) Eosinophils # (Manual) Percent Retic INR D-Dimer POC ABG pH 7.274 L POC ABG pCO2 59.7 H POC ABG pO2 58 L Sodium 147 H Potassium Chloride 107.6 H Carbon Dioxide BUN 31 H Creatinine 1.7 H Glucose 118 H POC Glucose 142 H Lactic Acid Calcium Ferritin Total Bilirubin Lactate Dehydrogenase Total Creatine Kinase CK-MB (CK-2) C-Reactive Protein NT-Pro-B Natriuret Pep Total Protein Albumin Triglycerides Urine WBC (Auto) Urine Creatinine Urine Total Protein Vancomycin Trough Random Vancomycin Crossmatch 10/03/16 10/03/16 10/03/16 15:54 15:54 16:58 WBC RBC Hgb Hct MCV MCH RDW Plt Count Seg Neuts % (Manual) Lymphocytes % (Manual) Monocytes % (Manual) Eosinophils % (Manual) Nucleated RBC % Seg Neutrophils # Man Lymphocytes # (Manual) Monocytes # (Manual) Eosinophils # (Manual) Percent Retic INR D-Dimer POC ABG pH POC ABG pCO2 POC ABG pO2 Sodium Potassium Chloride Carbon Dioxide BUN Creatinine Glucose POC Glucose 138 H Lactic Acid Calcium Ferritin Total Bilirubin Lactate Dehydrogenase Total Creatine Kinase CK-MB (CK-2) C-Reactive Protein NT-Pro-B Natriuret Pep Total Protein Albumin Triglycerides Urine WBC (Auto) 21.0 H Urine Creatinine 63.2 H Urine Total Protein 67 H Vancomycin Trough Random Vancomycin Crossmatch 10/03/16 10/03/16 10/04/16 21:37 23:44 04:00 WBC 30.3 H RBC 2.86 L Hgb 7.3 L Hct 22.6 L MCV MCH 25 L RDW 19.6 H Plt Count 125 L Seg Neuts % (Manual) Lymphocytes % (Manual) 12.0 L Monocytes % (Manual) Eosinophils % (Manual) 5.0 H Nucleated RBC % 30.0 H Seg Neutrophils # Man 12.7 H Lymphocytes # (Manual) Monocytes # (Manual) 1.2 H Eosinophils # (Manual) 1.5 H Percent Retic INR D-Dimer POC ABG pH 7.271 L POC ABG pCO2 61.7 H POC ABG pO2 77 L Sodium Potassium Chloride Carbon Dioxide BUN Creatinine Glucose POC Glucose 130 H Lactic Acid Calcium Ferritin Total Bilirubin Lactate Dehydrogenase Total Creatine Kinase CK-MB (CK-2) C-Reactive Protein NT-Pro-B Natriuret Pep Total Protein Albumin Triglycerides Urine WBC (Auto) Urine Creatinine Urine Total Protein Vancomycin Trough Random Vancomycin Crossmatch 10/04/16 10/04/16 10/04/16 04:03 06:02 12:29 WBC RBC Hgb Hct MCV MCH RDW Plt Count Seg Neuts % (Manual) Lymphocytes % (Manual) Monocytes % (Manual) Eosinophils % (Manual) Nucleated RBC % Seg Neutrophils # Man Lymphocytes # (Manual) Monocytes # (Manual) Eosinophils # (Manual) Percent Retic INR D-Dimer POC ABG pH 7.248 L POC ABG pCO2 62.3 H POC ABG pO2 59 L Sodium Potassium Chloride Carbon Dioxide BUN 40 H Creatinine 1.7 H Glucose 110 H POC Glucose 123 H Lactic Acid Calcium Ferritin Total Bilirubin Lactate Dehydrogenase Total Creatine Kinase CK-MB (CK-2) C-Reactive Protein NT-Pro-B Natriuret Pep Total Protein 5.6 L Albumin 2.1 L Triglycerides Urine WBC (Auto) Urine Creatinine Urine Total Protein Vancomycin Trough Random Vancomycin Crossmatch 10/04/16 10/04/16 10/04/16 12:39 15:14 17:45 WBC RBC Hgb Hct MCV MCH RDW Plt Count Seg Neuts % (Manual) Lymphocytes % (Manual) Monocytes % (Manual) Eosinophils % (Manual) Nucleated RBC % Seg Neutrophils # Man Lymphocytes # (Manual) Monocytes # (Manual) Eosinophils # (Manual) Percent Retic INR D-Dimer POC ABG pH POC ABG pCO2 POC ABG pO2 109 H Sodium Potassium Chloride Carbon Dioxide BUN Creatinine Glucose POC Glucose 124 H Lactic Acid Calcium Ferritin Total Bilirubin Lactate Dehydrogenase Total Creatine Kinase CK-MB (CK-2) C-Reactive Protein NT-Pro-B Natriuret Pep Total Protein Albumin Triglycerides Urine WBC (Auto) Urine Creatinine Urine Total Protein Vancomycin Trough 45.5 H Random Vancomycin Crossmatch 10/04/16 10/04/16 10/05/16 20:13 23:05 01:27 WBC 36.1 H RBC 2.99 L Hgb 7.3 L Hct 23.5 L MCV MCH 25 L RDW 19.6 H Plt Count Seg Neuts % (Manual) Lymphocytes % (Manual) Monocytes % (Manual) Eosinophils % (Manual) Nucleated RBC % Seg Neutrophils # Man Lymphocytes # (Manual) Monocytes # (Manual) Eosinophils # (Manual) Percent Retic INR D-Dimer POC ABG pH 7.341 L POC ABG pCO2 POC ABG pO2 47 L Sodium Potassium Chloride Carbon Dioxide BUN Creatinine Glucose POC Glucose 127 H Lactic Acid Calcium Ferritin Total Bilirubin Lactate Dehydrogenase Total Creatine Kinase CK-MB (CK-2) C-Reactive Protein NT-Pro-B Natriuret Pep Total Protein Albumin Triglycerides Urine WBC (Auto) Urine Creatinine Urine Total Protein Vancomycin Trough Random Vancomycin Crossmatch 10/05/16 10/05/16 10/05/16 01:27 03:50 05:00 WBC RBC Hgb Hct MCV MCH RDW Plt Count Seg Neuts % (Manual) Lymphocytes % (Manual) Monocytes % (Manual) Eosinophils % (Manual) Nucleated RBC % Seg Neutrophils # Man Lymphocytes # (Manual) Monocytes # (Manual) Eosinophils # (Manual) Percent Retic INR D-Dimer POC ABG pH 7.330 L POC ABG pCO2 45.3 H POC ABG pO2 53 L Sodium Potassium Chloride Carbon Dioxide BUN 49 H Creatinine 1.6 H Glucose 112 H POC Glucose Lactic Acid Calcium Ferritin Total Bilirubin Lactate Dehydrogenase Total Creatine Kinase CK-MB (CK-2) C-Reactive Protein NT-Pro-B Natriuret Pep Total Protein Albumin Triglycerides Urine WBC (Auto) Urine Creatinine Urine Total Protein Vancomycin Trough Random Vancomycin 43.6 H Crossmatch 10/05/16 10/05/16 10/05/16 05:30 12:08 14:00 WBC RBC Hgb Hct MCV MCH RDW Plt Count Seg Neuts % (Manual) Lymphocytes % (Manual) Monocytes % (Manual) Eosinophils % (Manual) Nucleated RBC % Seg Neutrophils # Man Lymphocytes # (Manual) Monocytes # (Manual) Eosinophils # (Manual) Percent Retic INR D-Dimer POC ABG pH POC ABG pCO2 POC ABG pO2 Sodium Potassium Chloride Carbon Dioxide BUN Creatinine Glucose POC Glucose 141 H 149 H Lactic Acid Calcium Ferritin Total Bilirubin Lactate Dehydrogenase Total Creatine Kinase CK-MB (CK-2) C-Reactive Protein 28.40 H NT-Pro-B Natriuret Pep Total Protein Albumin Triglycerides Urine WBC (Auto) Urine Creatinine Urine Total Protein Vancomycin Trough Random Vancomycin Crossmatch 10/05/16 10/05/16 10/05/16 15:37 16:41 17:15 WBC RBC Hgb Hct MCV MCH RDW Plt Count Seg Neuts % (Manual) Lymphocytes % (Manual) Monocytes % (Manual) Eosinophils % (Manual) Nucleated RBC % Seg Neutrophils # Man Lymphocytes # (Manual) Monocytes # (Manual) Eosinophils # (Manual) Percent Retic INR D-Dimer POC ABG pH 7.157 L 7.133 L POC ABG pCO2 75.0 H 80.5 H POC ABG pO2 76 L Sodium Potassium Chloride Carbon Dioxide BUN Creatinine Glucose POC Glucose 151 H Lactic Acid Calcium Ferritin Total Bilirubin Lactate Dehydrogenase Total Creatine Kinase CK-MB (CK-2) C-Reactive Protein NT-Pro-B Natriuret Pep Total Protein Albumin Triglycerides Urine WBC (Auto) Urine Creatinine Urine Total Protein Vancomycin Trough Random Vancomycin Crossmatch 10/05/16 10/05/16 10/06/16 19:58 23:50 03:57 WBC 45.3 H* RBC 3.08 L Hgb 7.5 L Hct 24.5 L MCV MCH 25 L RDW 20.1 H Plt Count Seg Neuts % (Manual) 24.0 L Lymphocytes % (Manual) 10.0 L Monocytes % (Manual) Eosinophils % (Manual) Nucleated RBC % 36.0 H Seg Neutrophils # Man 10.9 H Lymphocytes # (Manual) Monocytes # (Manual) 3.2 H Eosinophils # (Manual) 0.5 H Percent Retic INR D-Dimer POC ABG pH 7.198 L POC ABG pCO2 69.5 H POC ABG pO2 Sodium Potassium Chloride Carbon Dioxide BUN Creatinine Glucose POC Glucose 160 H Lactic Acid Calcium Ferritin Total Bilirubin Lactate Dehydrogenase Total Creatine Kinase CK-MB (CK-2) C-Reactive Protein NT-Pro-B Natriuret Pep Total Protein Albumin Triglycerides Urine WBC (Auto) Urine Creatinine Urine Total Protein Vancomycin Trough Random Vancomycin Crossmatch 10/06/16 10/06/16 10/06/16 03:57 05:38 06:08 WBC RBC Hgb Hct MCV MCH RDW Plt Count Seg Neuts % (Manual) Lymphocytes % (Manual) Monocytes % (Manual) Eosinophils % (Manual) Nucleated RBC % Seg Neutrophils # Man Lymphocytes # (Manual) Monocytes # (Manual) Eosinophils # (Manual) Percent Retic INR D-Dimer POC ABG pH 7.226 L POC ABG pCO2 63.3 H POC ABG pO2 Sodium 152 H D Potassium Chloride 114.1 H Carbon Dioxide BUN 58 H Creatinine 1.6 H Glucose 123 H POC Glucose 129 H Lactic Acid Calcium Ferritin Total Bilirubin Lactate Dehydrogenase Total Creatine Kinase CK-MB (CK-2) C-Reactive Protein NT-Pro-B Natriuret Pep Total Protein Albumin Triglycerides Urine WBC (Auto) Urine Creatinine Urine Total Protein Vancomycin Trough Random Vancomycin Crossmatch 10/06/16 10/06/16 10/06/16 11:38 14:31 18:10 WBC RBC Hgb Hct MCV MCH RDW Plt Count Seg Neuts % (Manual) Lymphocytes % (Manual) Monocytes % (Manual) Eosinophils % (Manual) Nucleated RBC % Seg Neutrophils # Man Lymphocytes # (Manual) Monocytes # (Manual) Eosinophils # (Manual) Percent Retic INR D-Dimer POC ABG pH 7.345 L POC ABG pCO2 49.5 H POC ABG pO2 60 L Sodium Potassium Chloride Carbon Dioxide BUN Creatinine Glucose POC Glucose 126 H 196 H Lactic Acid Calcium Ferritin Total Bilirubin Lactate Dehydrogenase Total Creatine Kinase CK-MB (CK-2) C-Reactive Protein NT-Pro-B Natriuret Pep Total Protein Albumin Triglycerides Urine WBC (Auto) Urine Creatinine Urine Total Protein Vancomycin Trough Random Vancomycin Crossmatch 10/06/16 10/07/16 10/07/16 21:07 00:55 00:55 WBC 55.1 H* RBC 3.06 L Hgb 7.5 L Hct 24.4 L MCV MCH 24 L RDW 20.7 H Plt Count Seg Neuts % (Manual) Lymphocytes % (Manual) 8.0 L Monocytes % (Manual) 9.0 H Eosinophils % (Manual) Nucleated RBC % 30.0 H Seg Neutrophils # Man 27.0 H Lymphocytes # (Manual) Monocytes # (Manual) 5.0 H Eosinophils # (Manual) 0.6 H Percent Retic INR D-Dimer POC ABG pH 7.317 L POC ABG pCO2 55.2 H POC ABG pO2 59 L Sodium 148 H Potassium Chloride 110.2 H Carbon Dioxide BUN 56 H Creatinine 1.7 H Glucose 211 H POC Glucose Lactic Acid Calcium Ferritin Total Bilirubin Lactate Dehydrogenase Total Creatine Kinase CK-MB (CK-2) C-Reactive Protein NT-Pro-B Natriuret Pep Total Protein Albumin Triglycerides Urine WBC (Auto) Urine Creatinine Urine Total Protein Vancomycin Trough Random Vancomycin Crossmatch 10/07/16 10/07/16 10/07/16 01:01 05:20 06:31 WBC RBC Hgb Hct MCV MCH RDW Plt Count Seg Neuts % (Manual) Lymphocytes % (Manual) Monocytes % (Manual) Eosinophils % (Manual) Nucleated RBC % Seg Neutrophils # Man Lymphocytes # (Manual) Monocytes # (Manual) Eosinophils # (Manual) Percent Retic INR D-Dimer POC ABG pH 7.310 L POC ABG pCO2 55.6 H POC ABG pO2 65 L Sodium Potassium Chloride Carbon Dioxide BUN Creatinine Glucose POC Glucose 249 H 235 H Lactic Acid Calcium Ferritin Total Bilirubin Lactate Dehydrogenase Total Creatine Kinase CK-MB (CK-2) C-Reactive Protein NT-Pro-B Natriuret Pep Total Protein Albumin Triglycerides Urine WBC (Auto) Urine Creatinine Urine Total Protein Vancomycin Trough Random Vancomycin Crossmatch 10/07/16 10/07/16 10/07/16 12:00 18:04 23:48 WBC RBC Hgb Hct MCV MCH RDW Plt Count Seg Neuts % (Manual) Lymphocytes % (Manual) Monocytes % (Manual) Eosinophils % (Manual) Nucleated RBC % Seg Neutrophils # Man Lymphocytes # (Manual) Monocytes # (Manual) Eosinophils # (Manual) Percent Retic INR D-Dimer POC ABG pH POC ABG pCO2 POC ABG pO2 Sodium Potassium Chloride Carbon Dioxide BUN Creatinine Glucose POC Glucose 210 H 201 H 163 H Lactic Acid Calcium Ferritin Total Bilirubin Lactate Dehydrogenase Total Creatine Kinase CK-MB (CK-2) C-Reactive Protein NT-Pro-B Natriuret Pep Total Protein Albumin Triglycerides Urine WBC (Auto) Urine Creatinine Urine Total Protein Vancomycin Trough Random Vancomycin Crossmatch 10/08/16 10/08/1617 04:00 04:00 04:10 WBC 58.0 H* RBC 2.95 L Hgb 7.3 L Hct 23.4 L MCV MCH 25 L RDW 20.8 H Plt Count Seg Neuts % (Manual) 75.0 H Lymphocytes % (Manual) 11.0 L Monocytes % (Manual) 8.0 H Eosinophils % (Manual) Nucleated RBC % 30.0 H Seg Neutrophils # Man 43.5 H Lymphocytes # (Manual) 6.4 H Monocytes # (Manual) 4.6 H Eosinophils # (Manual) 0.6 H Percent Retic INR D-Dimer POC ABG pH POC ABG pCO2 POC ABG pO2 Sodium 152 H Potassium Chloride 111.4 H Carbon Dioxide BUN 59 H Creatinine 1.6 H Glucose 190 H POC Glucose 214 H Lactic Acid Calcium Ferritin Total Bilirubin Lactate Dehydrogenase Total Creatine Kinase CK-MB (CK-2) C-Reactive Protein NT-Pro-B Natriuret Pep Total Protein Albumin Triglycerides Urine WBC (Auto) Urine Creatinine Urine Total Protein Vancomycin Trough Random Vancomycin Crossmatch 10/08/16 10/08/16 10/08/16 04:46 12:11 18:35 WBC RBC Hgb Hct MCV MCH RDW Plt Count Seg Neuts % (Manual) Lymphocytes % (Manual) Monocytes % (Manual) Eosinophils % (Manual) Nucleated RBC % Seg Neutrophils # Man Lymphocytes # (Manual) Monocytes # (Manual) Eosinophils # (Manual) Percent Retic INR D-Dimer POC ABG pH POC ABG pCO2 POC ABG pO2 65 L Sodium Potassium Chloride Carbon Dioxide BUN Creatinine Glucose POC Glucose 199 H 187 H Lactic Acid Calcium Ferritin Total Bilirubin Lactate Dehydrogenase Total Creatine Kinase CK-MB (CK-2) C-Reactive Protein NT-Pro-B Natriuret Pep Total Protein Albumin Triglycerides Urine WBC (Auto) Urine Creatinine Urine Total Protein Vancomycin Trough Random Vancomycin Crossmatch 10/08/16 10/09/16 10/09/16 23:38 04:43 05:38 WBC RBC Hgb Hct MCV MCH RDW Plt Count Seg Neuts % (Manual) Lymphocytes % (Manual) Monocytes % (Manual) Eosinophils % (Manual) Nucleated RBC % Seg Neutrophils # Man Lymphocytes # (Manual) Monocytes # (Manual) Eosinophils # (Manual) Percent Retic INR D-Dimer POC ABG pH POC ABG pCO2 45.4 H POC ABG pO2 52 L Sodium Potassium Chloride Carbon Dioxide BUN Creatinine Glucose POC Glucose 202 H 182 H Lactic Acid Calcium Ferritin Total Bilirubin Lactate Dehydrogenase Total Creatine Kinase CK-MB (CK-2) C-Reactive Protein NT-Pro-B Natriuret Pep Total Protein Albumin Triglycerides Urine WBC (Auto) Urine Creatinine Urine Total Protein Vancomycin Trough Random Vancomycin Crossmatch 10/09/16 10/09/16 10/09/16 07:40 07:40 10:00 WBC 37.3 H RBC 2.55 L Hgb 6.4 L Hct 20.7 L MCV MCH 25 L RDW 20.6 H Plt Count Seg Neuts % (Manual) Lymphocytes % (Manual) Monocytes % (Manual) Eosinophils % (Manual) Nucleated RBC % Seg Neutrophils # Man Lymphocytes # (Manual) Monocytes # (Manual) Eosinophils # (Manual) Percent Retic INR D-Dimer POC ABG pH POC ABG pCO2 POC ABG pO2 Sodium 153 H Potassium 3.3 L Chloride 112.7 H Carbon Dioxide BUN 62 H Creatinine 1.7 H Glucose 146 H POC Glucose Lactic Acid Calcium Ferritin Total Bilirubin Lactate Dehydrogenase Total Creatine Kinase CK-MB (CK-2) C-Reactive Protein NT-Pro-B Natriuret Pep Total Protein Albumin Triglycerides Urine WBC (Auto) Urine Creatinine Urine Total Protein Vancomycin Trough Random Vancomycin Crossmatch See Detail 10/09/16 10/09/16 10/10/16 12:06 17:08 00:01 WBC RBC Hgb Hct MCV MCH RDW Plt Count Seg Neuts % (Manual) Lymphocytes % (Manual) Monocytes % (Manual) Eosinophils % (Manual) Nucleated RBC % Seg Neutrophils # Man Lymphocytes # (Manual) Monocytes # (Manual) Eosinophils # (Manual) Percent Retic INR D-Dimer POC ABG pH POC ABG pCO2 POC ABG pO2 Sodium Potassium Chloride Carbon Dioxide BUN Creatinine Glucose POC Glucose 214 H 152 H 189 H Lactic Acid Calcium Ferritin Total Bilirubin Lactate Dehydrogenase Total Creatine Kinase CK-MB (CK-2) C-Reactive Protein NT-Pro-B Natriuret Pep Total Protein Albumin Triglycerides Urine WBC (Auto) Urine Creatinine Urine Total Protein Vancomycin Trough Random Vancomycin Crossmatch 10/10/16 10/10/16 10/10/16 04:25 05:28 06:00 WBC RBC Hgb Hct MCV MCH RDW Plt Count Seg Neuts % (Manual) Lymphocytes % (Manual) Monocytes % (Manual) Eosinophils % (Manual) Nucleated RBC % Seg Neutrophils # Man Lymphocytes # (Manual) Monocytes # (Manual) Eosinophils # (Manual) Percent Retic INR D-Dimer POC ABG pH POC ABG pCO2 58.3 H POC ABG pO2 68 L Sodium Potassium Chloride Carbon Dioxide BUN Creatinine Glucose POC Glucose 155 H Lactic Acid Calcium Ferritin Total Bilirubin Lactate Dehydrogenase Total Creatine Kinase CK-MB (CK-2) C-Reactive Protein NT-Pro-B Natriuret Pep Total Protein Albumin Triglycerides 407 H Urine WBC (Auto) Urine Creatinine Urine Total Protein Vancomycin Trough Random Vancomycin Crossmatch 10/10/16 10/10/16 10/10/16 06:00 06:00 06:00 WBC 38.5 H RBC 3.57 L Hgb 9.3 L Hct 30.1 L D MCV MCH 26 L RDW 22.0 H Plt Count 464 H Seg Neuts % (Manual) 81.0 H Lymphocytes % (Manual) 9.0 L Monocytes % (Manual) Eosinophils % (Manual) Nucleated RBC % 84.0 H Seg Neutrophils # Man 31.2 H Lymphocytes # (Manual) Monocytes # (Manual) Eosinophils # (Manual) 1.2 H Percent Retic INR D-Dimer POC ABG pH POC ABG pCO2 POC ABG pO2 Sodium 153 H Potassium Chloride 108.3 H Carbon Dioxide 31 H BUN 62 H Creatinine 1.5 H Glucose 160 H POC Glucose Lactic Acid Calcium Ferritin 782.0 H Total Bilirubin Lactate Dehydrogenase Total Creatine Kinase CK-MB (CK-2) C-Reactive Protein NT-Pro-B Natriuret Pep Total Protein Albumin Triglycerides Urine WBC (Auto) Urine Creatinine Urine Total Protein Vancomycin Trough Random Vancomycin Crossmatch Allied health notes reviewed: RT
[2016-10-10] MEDS: LOVENOX SUB-Q SCH (10:59)
[2016-10-10] MEDS: THERAGRAN Tab PO SCH (10:59)
[2016-10-10] MEDS: D5W 1,000 ML IV SCH (11:00)
[2016-10-10] MEDS: SENOKOT PO SCH (11:00)
[2016-10-10] MEDS: PEPCID PO SCH ×2 (11:00→23:16)
[2016-10-10] MEDS: FOLVITE PO SCH (11:00)
[2016-10-10] MEDS: ASPIRIN PO SCH (11:00)
[2016-10-10] MEDS: VALTREX PO SCH (11:00)
[2016-10-10] MEDS ORDERED: NACL 0.9% 500 ML 500 ML IV ONE ×2 (11:53→17:19)
--- NOTE | 2016-10-10 12:06 | Operative Report ---
Operative Report Operative Report: Procedure: Placement of a right common femoral temporary dialysis catheter. Date of Procedure: 10/10/2016 History/Indication: This is a patient with sickle cell disease, requiring pheresis. Impression: Successful placement of a 30 cm try dialysis temporary dialysis catheter via the right common femoral vein. Physician: Lorena Sifuentes MD Technique/Procedural Details: Informed consent was obtained from the patient's brother. The patient's right groin was prepped and draped in the usual sterile fashion. After administration of local anesthetic, the right common femoral vein was accessed under continuous ultrasound guidance, with an 18-gauge needle. A J-wire was advanced through the needle, and the needle was exchanged for a tissue dilator. After tissue dilation, the temporary dialysis catheter was advanced over the wire. The wire was removed. All 3 lumens were aspirated and flushed. A heparin lock was instilled in each of the 2 larger lumens. A sterile dressing was placed. There were no complications. Discussion: A 30 cm Trialysis dialysis catheter was successfully placed. The right common femoral vein is patent and compressible. Specimen: None EBL: <5 cc
[2016-10-10] MEDS ORDERED: XYLOCAINE 2% INFILTRATI ONE (12:30)
[2016-10-10] MEDS ORDERED: HEPARIN ONE (12:30)
[2016-10-10 13:27] LABS: INR 1.45 (0.87-1.13)
--- NOTE | 2016-10-10 14:40 | XRay Report ---
ABDOMEN RADIOGRAPH INDICATION: NG tube placement. COMPARISON: 10/08/2016 FINDINGS: Frontal abdominal radiograph again demonstrates esophagogastric tube tip about the pylorus with adjacent probable cholecystectomy clips. Nonobstructive imaged bowel gas pattern. Suboptimal patient positioning with diffuse bilateral pulmonary interstitial infiltrates again noted. New right groin vascular catheter tip in the IVC. CONCLUSION: New right groin/IVC catheter with stable other findings, including bilateral pulmonary infiltrates and satisfactory esophagogastric tube placement. Thank you for the opportunity to participate in this patient's care.
--- NOTE | 2016-10-10 15:12 | XRay Report ---
Portable chest: Comparison is made to the prior study of October 07. Endotracheal, nasogastric, left PICC, and right jugular central venous lines remain unchanged in adequate positions. The pulmonary pattern appears is that of a diffuse micro-nodular appearance. Whether this pattern is secondary to alveola density or interstitial densities is unclear. The findings are similar to the prior exam but less consolidated and somewhat more diffuse than the exam of October 06. Impression: The findings may represent pulmonary edema but infiltrates of other etiology is difficult to exclude.
--- NOTE | 2016-10-10 17:32 | Progress Note ---
Assessment and Plan Assessment and plan: The patient is a 41-year-old female with a history of sickle cell disease who was admitted for total hip arthroplasty for avascular necrosis of the left hip. She had left total hip arthroplasty on 09/25/2016 and developed acute hypoxemic respiratory failure following the POD 2 likely from ARDS and ultimately required intubation on 09/27/2016. Her hemoglobin level dropped from 8.1-6.9 on 09/30/2016, also noted to have hypokalemia with potassium level 3.1. Hospitalist service consulted for medical management. Patient remained in a I intubated with mechanical ventilation. Her white count continued to trend up. Maintained on sepsis protocol, CT scan of abdomen and pelvis and thorax done without contrast to identify the source for infection. CT scan of the chest was suggestive for possible pneumonia. She is currently on broad- spectrum antibiotics, critically ill with poor prognosis. Acute hypoxic respiratory failure -has required mechanical vent for > 96 hours - likely due to ARDS with PNA, intubated on 09/27/16 - on mechanical ventilation, she is so critically ill that she does not meet criteria for weaning -consider tracheostomy for fci weaning when patient is more stable - pulmonary following, cont nebulizer, vent support, has completed antibiotics - wean off as tolerated Sepsis syndrome - Likely from pneumonia - Spiking temp intermittently, wbc count continue to increased Patient has completed a 7 day course of antibiotics for treatment of sepsis/ pneumonia, ID input appreciated, abx dc Severe anemia - History of thalassemia major - has received multiple prbc transfusion, for exchange transfusion today, vasc cath has been placed - hematology following - Avscular necrosis of the left hip - s/p total left hip arthoplasty on 09/25/16 Hypokalemia -Status post replacement, continue to replete as needed Hypernatremia -Continue free water via gastric tube CARLYN - likely from sepsis syndrome and ATN - monitor renal function - nephrology following, diuretic doses have been reduced Leukocytosis Most likely leukemoid reaction, improving, hematology input appreciated, flow cytometry has been ordered by the electrical control assembler Critical care time 32 minutes Dispo: LTACH History Interval history: patient remains intubated, sedated, failed weaning trials , gets agitated whenever sedation is held Hospitalist Physical - Physical exam Narrative exam: General: Intubated sedated HEENT: MMM, EOMI cardiac: S1-S2 heard lungs: Rhonchorous ventilated breath sounds abdomen: soft, nontender, nondistended bowel sounds positive extremities: no edema clubbing or cyanosis Skin: no rash or lesion Neuro: Intubated sedated - Constitutional Vitals: Temp Pulse Resp BP Pulse Ox 99.2 F 107 H 7 L 82/55 98 10/10/16 12:00 10/10/16 17:00 10/10/16 17:00 10/10/16 17:00 10/10/16 17:00 General appearance: Present: obese Results - Labs CBC & Chem 7: 10/10/16 06:00 10/10/16 06:00 Labs: Laboratory Last Values WBC 38.5 K/mm3 (4.5-11.0) H 10/10/16 06:00 RBC 3.57 M/mm3 (3.65-5.03) L 10/10/16 06:00 Hgb 9.3 gm/dl (10.1-14.3) L 10/10/16 06:00 Hct 30.1 % (30.3-42.9) L D 10/10/16 06:00 MCV 84 fl (79-97) D 10/10/16 06:00 MCH 26 pg (28-32) L 10/10/16 06:00 MCHC 31 % (30-34) 10/10/16 06:00 RDW 22.0 % (13.2-15.2) H 10/10/16 06:00 Plt Count 464 K/mm3 (140-440) H 10/10/16 06:00 Lymph % (Auto) 33.3 % (13.4-35.0) 09/20/16 10:35 Wheeler % (Auto) 5.8 % (0.0-7.3) 09/20/16 10:35 Eos % (Auto) 2.5 % (0.0-4.3) 09/20/16 10:35 Baso % (Auto) 0.7 % (0.0-1.8) 09/20/16 10:35 Lymph # [employer] 10/10/16 06:00 Wheeler # 0.7 K/mm3 (0.0-0.8) 09/20/16 10:35 Eos # 0.3 K/mm3 (0.0-0.4) 09/20/16 10:35 Baso # 0.1 K/mm3 (0.0-0.1) 09/20/16 10:35 Add Manual Diff Complete 10/10/16 06:00 Total Counted 100 10/10/16 06:00 Seg Neutrophils % 57.7 % (40.0-70.0) 09/20/16 10:35 Seg Neuts % (Manual) 81.0 % (40.0-70.0) H 10/10/16 06:00 Band Neutrophils % 4.0 % 10/10/16 06:00 Lymphocytes % (Manual) 9.0 % (13.4-35.0) L 10/10/16 06:00 Reactive Lymphs % (Man) 0 % 10/10/16 06:00 Monocytes % (Manual) 2.0 % (0.0-7.3) 10/10/16 06:00 Eosinophils % (Manual) 3.0 % (0.0-4.3) 10/10/16 06:00 Basophils % (Manual) 0 % (0.0-1.8) 10/10/16 06:00 Metamyelocytes % 1.0 % 10/10/16 06:00 Myelocytes % 0 % 10/10/16 06:00 Promyelocytes % 0 % 10/10/16 06:00 Blast Cells % 0 % 10/10/16 06:00 Nucleated RBC % 84.0 % (0.0-0.9) H 10/10/16 06:00 Seg Neutrophils # 6.7 K/mm3 (1.8-7.7) 09/20/16 10:35 Seg Neutrophils # Man 31.2 K/mm3 (1.8-7.7) H 10/10/16 06:00 Band Neutrophils # 1.5 K/mm3 10/10/16 06:00 Lymphocytes # (Manual) 3.5 K/mm3 (1.2-5.4) 10/10/16 06:00 Abs React Lymphs (Man) 0.0 K/mm3 10/10/16 06:00 Monocytes # (Manual) 0.8 K/mm3 (0.0-0.8) 10/10/16 06:00 Eosinophils # (Manual) 1.2 K/mm3 (0.0-0.4) H 10/10/16 06:00 Basophils # (Manual) 0.0 K/mm3 (0.0-0.1) 10/10/16 06:00 Metamyelocytes # 0.4 K/mm3 10/10/16 06:00 Myelocytes # 0.0 K/mm3 10/10/16 06:00 Promyelocytes # 0.0 K/mm3 10/10/16 06:00 Blast Cells # 0.0 K/mm3 10/10/16 06:00 Pathologist Review 10/10/16 06:00 WBC Morphology Not Reportable 10/10/16 06:00 Hypersegmented Neuts Not Reportable 10/10/16 06:00 Hyposegmented Neuts Not Reportable 10/10/16 06:00 Hypogranular Neuts Not Reportable 10/10/16 06:00 Smudge Cells 2+ 10/10/16 06:00 Toxic Granulation Not Reportable 10/10/16 06:00 Toxic Vacuolation Not Reportable 10/10/16 06:00 Dohle Bodies Not Reportable 10/10/16 06:00 Pelger-Huet Anomaly Not Reportable 10/10/16 06:00 Jaspreet Rods Not Reportable 10/10/16 06:00 Platelet Estimate Appears normal 10/10/16 06:00 Clumped Platelets Not Reportable 10/10/16 06:00 Plt Clumps, EDTA Not Reportable 10/10/16 06:00 Large Platelets Few 10/10/16 06:00 Giant Platelets Not Reportable 10/10/16 06:00 Platelet Satelliting Not Reportable 10/10/16 06:00 Plt Morphology Comment Not Reportable 10/10/16 06:00 RBC Morphology Not Reportable 10/10/16 06:00 Dimorphic RBCs Not Reportable 10/10/16 06:00 Polychromasia 2+ 10/10/16 06:00 Hypochromasia Not Reportable 10/10/16 06:00 Poikilocytosis Not Reportable 10/10/16 06:00 Basophilic Stippling Few 10/10/16 06:00 Anisocytosis 2+ 10/10/16 06:00 Microcytosis 1+ 10/10/16 06:00 Macrocytosis Not Reportable 10/10/16 06:00 Spherocytes 1+ 10/10/16 06:00 Pappenheimer Bodies Not Reportable 10/10/16 06:00 Sickle Cells Not Reportable 10/10/16 06:00 Target Cells 2+ 10/10/16 06:00 Tear Drop Cells Not Reportable 10/10/16 06:00 Ovalocytes 1+ 10/10/16 06:00 Helmet Cells Not Reportable 10/10/16 06:00 Villatoro-Uncertain Bodies Not Reportable 10/10/16 06:00 [place] Rings Not Reportable 10/10/16 06:00 Mike Cells Not Reportable 10/10/16 06:00 Bite Cells Not Reportable 10/10/16 06:00 Crenated Cell Not Reportable 10/10/16 06:00 Elliptocytes Rare 10/10/16 06:00 Acanthocytes (Spur) Not Reportable 10/10/16 06:00 Rouleaux Not Reportable 10/10/16 06:00 Hemoglobin C Crystals Not Reportable 10/10/16 06:00 Schistocytes Not Reportable 10/10/16 06:00 Malaria parasites Not Reportable 10/10/16 06:00 Percent Retic 8.11 % (0.78-2.58) H 09/27/16 22:47 Jeffrey Bodies Not Reportable 10/10/16 06:00 Hem Pathologist Commnt Sent to pathology 10/10/16 06:00 PT 17.6 Sec. (12.2-14.9) H 10/10/16 13:03 INR 1.45 (0.87-1.13) H 10/10/16 13:03 APTT 31.1 Sec. (24.2-36.6) 09/20/16 10:35 D-Dimer 4758.12 ng/mlDDU (0-234) H 09/27/16 22:47 POC ABG pH 7.396 (7.35-7.45) 10/10/16 04:25 POC ABG pCO2 58.3 (35-45) H 10/10/16 04:25 POC ABG pO2 68 (80-105) L 10/10/16 04:25 POC ABG HCO3 35.8 10/10/16 04:25 POC ABG Total CO2 38 10/10/16 04:25 POC ABG O2 Sat 93 10/10/16 04:25 POC ABG Base Excess 11 10/10/16 04:25 FiO2 65 % 10/10/16 04:25 Sodium 153 mmol/L (137-145) H 10/10/16 06:00 Potassium 3.7 mmol/L (3.6-5.0) 10/10/16 06:00 Chloride 108.3 mmol/L (98-107) H 10/10/16 06:00 Carbon Dioxide 31 mmol/L (22-30) H 10/10/16 06:00 Anion Gap 17 mmol/L 10/10/16 06:00 BUN 62 mg/dL (7-17) H 10/10/16 06:00 Creatinine 1.5 mg/dL (0.7-1.2) H 10/10/16 06:00 Estimated GFR 47 ml/min 10/10/16 06:00 BUN/Creatinine Ratio 41.33 % 10/10/16 06:00 Glucose 160 mg/dL (65-100) H 10/10/16 06:00 POC Glucose 155 (70-105) H 10/10/16 05:28 Osmolality 311 Mosm/kg 10/04/16 04:03 Lactic Acid 1.00 mmol/L (0.7-2.0) 10/05/16 14:00 Calcium 9.2 mg/dL (8.4-10.2) 10/10/16 06:00 Phosphorus 3.60 mg/dL (2.5-4.5) 10/04/16 04:03 Ferritin 782.0 ng/mL (13.0-400.0) H 10/10/16 06:00 Total Bilirubin 1.20 mg/dL (0.1-1.2) 10/04/16 04:03 AST 31 units/L (5-40) 10/04/16 04:03 ALT 33 units/L (7-56) 10/04/16 04:03 Alkaline Phosphatase 100 units/L (35-129) 10/04/16 04:03 Lactate Dehydrogenase 829 units/L (91-180) H 09/27/16 22:47 Total Creatine Kinase 3575 units/L (30-135) H 09/27/16 14:40 CK-MB (CK-2) 11.0 ng/mL (0.0-4.0) H 09/27/16 14:40 CK-MB (CK-2) Rel Index 0.3 (0-4) 09/27/16 14:40 Troponin T < 0.010 ng/mL (0.00-0.029) 09/27/16 14:40 C-Reactive Protein 28.40 mg/dL (0.00-1.30) H 10/05/16 14:00 NT-Pro-B Natriuret Pep 2018 pg/mL (0-450) H 09/30/16 14:05 Total Protein 5.6 g/dL (6.3-8.2) L 10/04/16 04:03 Albumin 2.1 g/dL (3.9-5) L 10/04/16 04:03 Albumin/Globulin Ratio 0.6 % 10/04/16 04:03 Triglycerides 407 mg/dL (2-149) H 10/10/16 06:00 Urine Color Yellow (Yellow) 10/03/16 15:54 Urine Turbidity Cloudy (Clear) 10/03/16 15:54 Urine pH 5.0 (5.0-7.0) 10/03/16 15:54 Ur Specific [place] 1.013 (1.003-1.030) 10/03/16 15:54 Urine Protein 30 mg/dl mg/dL (Negative) 10/03/16 15:54 Urine Glucose (UA) Neg mg/dL (Negative) 10/03/16 15:54 Urine Ketones Neg mg/dL (Negative) 10/03/16 15:54 Urine Blood Lg (Negative) 10/03/16 15:54 Urine Nitrite Neg (Negative) 10/03/16 15:54 Urine Bilirubin Neg (Negative) 10/03/16 15:54 Urine Urobilinogen < 2.0 mg/dL (<2.0) 10/03/16 15:54 Ur Leukocyte Esterase Tr (Negative) 10/03/16 15:54 Urine WBC (Auto) 21.0 /HPF (0.0-6.0) H 10/03/16 15:54 Urine RBC (Auto) 65.0 /HPF (0.0-6.0) 10/03/16 15:54 U Epithel Cells (Auto) 2.0 /HPF (0-13.0) 10/03/16 15:54 Urine Bacteria (Auto) 3+ /HPF (Negative) 10/03/16 15:54 Amorphous Crystals 1+ 10/03/16 15:54 Urine Mucus Few /HPF 10/03/16 15:54 Urine Creatinine 63.2 mg/dL (0.1-20.0) H 10/03/16 15:54 Urine Sodium 20 mEq/L 10/03/16 15:54 Urine Total Protein 67 mg/dL (5-11.8) H 10/03/16 15:54 Vancomycin Trough 45.5 ug/mL (5.0-20.0) H 10/04/16 12:39 Random Vancomycin 14.9 ug/mL (0-40.0) 10/07/16 05:25 Blood Type O POSITIVE 10/09/16 10:00 Antibody Screen TNR 10/01/16 00:55 DEACON Antibody Screen Negative 10/09/16 10:00 Crossmatch See Detail 10/09/16 10:00
--- NOTE | 2016-10-10 22:23 | Consultation ---
History of Present Illness - Reason for Consult Consult date: 10/10/16 - History of Present Illness Patient seen/examined, labs reviewed, she is s/p exchange transfusion.Will allow time ,and see the effect one way, or the other. Past History Past Medical History: anemia (sickle cell anemia) Social history: no significant social history Family history: no significant family history Medications and Allergies Allergies Allergy/AdvReac Type Severity Reaction Status Date / Time No Known Allergies Allergy Unverified 10/13/13 13:21 Home Medications Medication Instructions Recorded Confirmed Last Taken Type Folic Acid [Folvite] 1 mg PO QDAY 10/13/13 09/18/16 09/18/16 History oxyCODONE /ACETAMINOPHEN [Percocet 1 tab PO Q6HR PRN #10 tablet 10/13/1309/18/16 Rx 5/325 mg] Promethazine [Phenergan] 25 mg PO Q6H PRN 08/16/14 09/18/16 09/18/16 History valACYclovir [Valtrex] 500 mg PO DAILY 08/16/14 09/18/16 09/18/16 History Active Meds: Active Medications Acetaminophen (Tylenol) 650 mg PO Q4H PRN PRN Reason: Pain MILD(1-3)/Fever >100.5/PALACIOS Last Admin: 10/07/16 18:13 Dose: 650 mg Albuterol/Ipratropium (Duoneb 0.5 Mg-3 Mg/3 Ml Soln) 1 ampul IH Q6HRT [facility] Last Admin: 10/10/16 20:08 Dose: 1 ampul Lipase/Protease/Amylase (Fritz Dr 10,500 Unit) 1 each FEEDTUBE PRN PRN PRN Reason: For Clogged Feeding Tube Arformoterol Tartrate (Brovana Nebu) 15 mcg IH Q12HRT [facility] Last Admin: 10/10/16 20:08 Dose: 15 mcg Aspirin (Aspirin) 325 mg PO QDAY [facility] Last Admin: 10/10/16 11:00 Dose: 325 mg Budesonide (Pulmicort) 0.5 mg IH Q12HRT [facility] Last Admin: 10/10/16 20:08 Dose: 0.5 mg Diphenhydramine HCl (Benadryl) 12.5 mg IV Q4H PRN PRN Reason: Itching Last Admin: 09/30/16 07:02 Dose: 12.5 mg Enoxaparin Sodium (Lovenox) 40 mg SUB-Q QDAY [facility] Last Admin: 10/10/16 10:59 Dose: 40 mg Famotidine (Pepcid) 20 mg PO BID [facility] Last Admin: 10/10/16 11:00 Dose: 20 mg Folic Acid (Folvite) 1 mg PO QDAY [facility] Last Admin: 10/10/16 11:00 Dose: 1 mg Furosemide (Lasix) 40 mg IV Q8H [facility] Last Admin: 10/10/16 17:30 Dose: 40 mg Hydrophilic Ointment (Vaseline Lip Therapy) 1 applic TP Q2HR PRN PRN Reason: Dry Lips Fentanyl Citrate (Fentanyl Drip Premix) 2,000 mcg in 100 mls @ 4.649 mls/hr IV TITR [facility]; 1 MCG/KG/HR PRN Reason: Protocol Last Admin: 10/10/16 15:12 Dose: 2 mcg/kg/hr, 9.299 mls/hr Propofol (Diprivan 10 Mg/Ml) 1,000 mg in 100 mls @ 2.79 mls/hr IV TITR [facility]; 5 MCG/KG/MIN PRN Reason: Protocol Last Admin: 10/10/16 11:02 Dose: 15 mcg/kg/min, 8.369 mls/hr Midazolam HCl 100 mg/ Sodium (Chloride) 100 mls @ 2 mls/hr IV TITR [facility]; 2 MG/HR PRN Reason: Protocol Last Admin: 10/04/16 12:54 Dose: 2 mg/hr, 2 mls/hr Metronidazole (Flagyl 500 Mg/100 Ml) 500 mg in 100 mls @ 100 mls/hr IV Q8HR [facility] Last Admin: 10/10/16 13:59 Dose: 100 mls/hr Sodium Chloride (Nacl 0.9% 500 Ml) 500 mls @ 0 mls/hr IV ONCE [facility] PRN Reason: As Directed Dextrose (D5w) 1,000 mls @ 50 mls/hr IV DIRECT [facility] Last Admin: 10/10/16 11:00 Dose: 50 mls/hr Insulin Human Regular (Novolin R) 0 units SUB-Q Q6HR [facility] PRN Reason: Protocol Last Admin: 10/10/16 17:52 Dose: 1 units Multi-Ingred Cream/Lotion/Oil/Oint (Artificial Tears Ophth Oint) 1 applic OU Q4HR PRN PRN Reason: Dry Eye(s) Multivitamins (Theragran Tab) 1 each PO QDAY [facility] Last Admin: 10/10/16 10:59 Dose: 1 each Ondansetron HCl (Zofran) 4 mg IV Q8H PRN PRN Reason: Nausea And Vomiting Last Admin: 09/29/16 23:07 Dose: 4 mg Promethazine HCl (Phenergan) 25 mg AK Q6H PRN PRN Reason: Nausea And Vomiting Last Admin: 09/25/16 22:05 Dose: 25 mg Senna (Senokot) 17.2 mg PO DAILY [facility] Last Admin: 10/10/16 11:00 Dose: 17.2 mg Simple Syrup (Simple Syrup) 15 ml FEEDTUBE PRN PRN PRN Reason: Hypoglycemia Simple Syrup (Simple Syrup) 30 ml FEEDTUBE PRN PRN PRN Reason: Hypoglycemia Sodium Bicarbonate (Sodium Bicarbonate) 325 mg FEEDTUBE PRN PRN PRN Reason: For Clogged Feeding Tube Sodium Chloride (Sodium Chloride Flush Syringe 10 Ml) 10 ml IV PRN PRN PRN Reason: LINE FLUSH Tramadol HCl (Ultram) 50 mg PO Q4H PRN PRN Reason: Pain, Moderate (4-6) Last Admin: 10/06/16 21:54 Dose: 50 mg Valacyclovir HCl (Valtrex) 500 mg PO DAILY [facility] Last Admin: 10/10/16 11:00 Dose: 500 mg Zolpidem Tartrate (Ambien) 5 mg PO QHS PRN PRN Reason: Sleep Review of Systems Breasts: deferred Exam - Constitutional Vitals: Temp Pulse Resp BP Pulse Ox 97.4 F L 108 H 14 110/71 93 10/10/16 20:00 10/10/16 21:30 10/10/16 21:30 10/10/16 21:30 10/10/16 21:21 General appearance: Present: severe distress, well-nourished - EENT Eyes: Present: PERRL ENT: hearing intact, clear oral mucosa - Neck Neck: Present: supple, normal ROM - Respiratory Respiratory: bilateral: CTA, other (on vent support.) - Cardiovascular Heart Sounds: Present: S1 & S2. Absent: rub, click - Extremities Extremities: pulses symmetrical, No edema Peripheral Pulses: within normal limits - Abdominal General gastrointestinal: Present: soft, non-tender, non-distended, normal bowel sounds Female genitourinary: Present: deferred - Rectal Rectal Exam: deferred - Integumentary Integumentary: Present: clear, warm, dry Results - Labs CBC & Chem 7: 10/10/16 06:00 10/10/16 06:00 Labs: Abnormal lab results 10/09/16 10/10/16 10/10/16 Range/Units 10:00 00:01 04:25 WBC (4.5-11.0) K/mm3 RBC (3.65-5.03) M/mm3 Hgb (10.1-14.3) gm/dl Hct (30.3-42.9) % MCH (28-32) pg RDW (13.2-15.2) % Plt Count (140-440) K/mm3 Seg Neuts % (Manual) (40.0-70.0) % Lymphocytes % (Manual) (13.4-35.0) % Nucleated RBC % (0.0-0.9) % Seg Neutrophils # Man (1.8-7.7) K/mm3 Eosinophils # (Manual) (0.0-0.4) K/mm3 PT (12.2-14.9) Sec. INR (0.87-1.13) POC ABG pCO2 58.3 H (35-45) POC ABG pO2 68 L (80-105) Sodium (137-145) mmol/L Chloride (98-107) mmol/L Carbon Dioxide (22-30) mmol/L BUN (7-17) mg/dL Creatinine (0.7-1.2) mg/dL Glucose (65-100) mg/dL POC Glucose 189 H (70-105) Ferritin (13.0-400.0) ng/mL Triglycerides (2-149) mg/dL Crossmatch See Detail 10/10/16 10/10/16 10/10/16 Range/Units 05:28 06:00 06:00 WBC (4.5-11.0) K/mm3 RBC (3.65-5.03) M/mm3 Hgb (10.1-14.3) gm/dl Hct (30.3-42.9) % MCH (28-32) pg RDW (13.2-15.2) % Plt Count (140-440) K/mm3 Seg Neuts % (Manual) (40.0-70.0) % Lymphocytes % (Manual) (13.4-35.0) % Nucleated RBC % (0.0-0.9) % Seg Neutrophils # Man (1.8-7.7) K/mm3 Eosinophils # (Manual) (0.0-0.4) K/mm3 PT (12.2-14.9) Sec. INR (0.87-1.13) POC ABG pCO2 (35-45) POC ABG pO2 (80-105) Sodium 153 H (137-145) mmol/L Chloride 108.3 H (98-107) mmol/L Carbon Dioxide 31 H (22-30) mmol/L BUN 62 H (7-17) mg/dL Creatinine 1.5 H (0.7-1.2) mg/dL Glucose 160 H (65-100) mg/dL POC Glucose 155 H (70-105) Ferritin (13.0-400.0) ng/mL Triglycerides 407 H (2-149) mg/dL Crossmatch 10/10/16 10/10/16 10/10/16 Range/Units 06:00 06:00 11:29 WBC 38.5 H (4.5-11.0) K/mm3 RBC 3.57 L (3.65-5.03) M/mm3 Hgb 9.3 L (10.1-14.3) gm/dl Hct 30.1 L D (30.3-42.9) % MCH 26 L (28-32) pg RDW 22.0 H (13.2-15.2) % Plt Count 464 H (140-440) K/mm3 Seg Neuts % (Manual) 81.0 H (40.0-70.0) % Lymphocytes % (Manual) 9.0 L (13.4-35.0) % Nucleated RBC % 84.0 H (0.0-0.9) % Seg Neutrophils # Man 31.2 H (1.8-7.7) K/mm3 Eosinophils # (Manual) 1.2 H (0.0-0.4) K/mm3 PT (12.2-14.9) Sec. INR (0.87-1.13) POC ABG pCO2 (35-45) POC ABG pO2 (80-105) Sodium (137-145) mmol/L Chloride (98-107) mmol/L Carbon Dioxide (22-30) mmol/L BUN (7-17) mg/dL Creatinine (0.7-1.2) mg/dL Glucose (65-100) mg/dL POC Glucose 177 H (70-105) Ferritin 782.0 H (13.0-400.0) ng/mL Triglycerides (2-149) mg/dL Crossmatch 10/10/16 10/10/16 Range/Units 13:03 17:38 WBC (4.5-11.0) K/mm3 RBC (3.65-5.03) M/mm3 Hgb (10.1-14.3) gm/dl Hct (30.3-42.9) % MCH (28-32) pg RDW (13.2-15.2) % Plt Count (140-440) K/mm3 Seg Neuts % (Manual) (40.0-70.0) % Lymphocytes % (Manual) (13.4-35.0) % Nucleated RBC % (0.0-0.9) % Seg Neutrophils # Man (1.8-7.7) K/mm3 Eosinophils # (Manual) (0.0-0.4) K/mm3 PT 17.6 H (12.2-14.9) Sec. INR 1.45 H (0.87-1.13) POC ABG pCO2 (35-45) POC ABG pO2 (80-105) Sodium (137-145) mmol/L Chloride (98-107) mmol/L Carbon Dioxide (22-30) mmol/L BUN (7-17) mg/dL Creatinine (0.7-1.2) mg/dL Glucose (65-100) mg/dL POC Glucose 173 H (70-105) Ferritin (13.0-400.0) ng/mL Triglycerides (2-149) mg/dL Crossmatch Assessment and Plan - Patient Problems (1) Arthritis of left hip Current Visit: Yes Status: Deleted Plan to address problem: Follow post surgical management. (2) Avascular necrosis of bone of left hip Current Visit: Yes Status: Deleted Plan to address problem: Post surgical pain management., post surgical anticoagulation. continue same. (3) Sepsis Current Visit: Yes Status: Acute Qualifiers: Sepsis type: sepsis due to unspecified organism Qualified Code(s): A41.9 - Sepsis, unspecified organism Plan to address problem: SEE w/up in the notes. No improvement so far. worsening sepsis. (4) Sleep apnea syndrome Current Visit: Yes Status: Acute Qualifiers: Sleep apnea type: S Plan to address problem: oxygen/BIPAP management. Patient now in full resp failure, and on the vent. (5) UTI (urinary tract infection) Current Visit: Yes Status: Acute Qualifiers: Urinary tract infection type: U Hematuria presence: H Indwelling urinary catheter type: I Encounter type: E Plan to address problem: patient already on abx iv. may need culture sent. culture no growth. (6) Anemia Current Visit: Yes Status: Acute Qualifiers: Anemia type: A Iron deficiency anemia type: I Vitamin B12 deficiency anemia type: V Folate deficiency anemia type: F Bone marrow failure anemia type: B Hemolytic anemia type: H Other causes of anemia: O Plan to address problem: will transfuse if hgb 7.5 or less. no new issues at this time. May transfuse if further drop. (7) Leukocytosis Current Visit: Yes Status: Acute Qualifiers: Leukocytosis type: L Plan to address problem: will order flow, and try leukophoresis. instead, exchange transfusion is done today.
[2016-10-11] MEDS: DUONEB 0.5 MG-3 MG/3 ML SOLN IH SCH ×3 (02:45→20:30)
[2016-10-11] MEDS: fentaNYL DRIP Premix 2,000 MCG/100 ML BAG IV SCH ×2 (03:23→10:36)
[2016-10-11 05:57] LABS: ISTAT Base Excess 9; ISTAT HCO3 33.7; ISTAT PCO2 56.6 (35-45); ISTAT PH 7.382 (7.35-7.45); ISTAT PO2 63 (80-105); ISTAT SO2 91; ISTAT TCO2 35
[2016-10-11] MEDS: FLAGYL 500 MG/100 ML 500 MG/100 ML BAG IV SCH ×3 (06:47→21:53)
[2016-10-11] MEDS: DIPRIVAN 10 MG/ML 1,000 MG/100 ML BOTTLE IV SCH (07:45)
[2016-10-11] MEDS: PULMICORT IH SCH ×2 (08:22→20:30)
[2016-10-11] MEDS: BROVANA NEBU IH SCH ×2 (08:22→20:30)
[2016-10-11] MEDS: LASIX IV SCH ×2 (08:30)
--- NOTE | 2016-10-11 08:57 | Progress Note ---
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 Remains clinically unchanged off antibiotics. (2) Acute renal failure due to tubular necrosis Current Visit: Yes Status: Acute Plan to address problem: Continue renally adjusted meds. (3) Leukemoid reaction Current Visit: Yes Status: Acute Plan to address problem: Slow improvement. Plate Grainer evaluating. Subjective Date of service: 10/11/16 Principal diagnosis: Acute Hypoxemic Respiratory Failure; ARDS Interval history: Remains in ICU. No new clinical changes. Objective - Constitutional Vitals: Vital Signs Temp Pulse Resp BP Pulse Ox 99.3 F 114 H 15 109/74 95 10/11/16 08:00 10/11/16 08:30 10/11/16 08:30 10/11/16 08:17 10/11/16 08:17 Temperature -Last 24 Hours Temperature 99.3 F Temperature 98.7 F Temperature 98.4 F Temperature 97.4 F Temperature 98.4 F Temperature 99.2 F General appearance: Present: no acute distress, obese - EENT Eyes: no scleral icterus, no conjunctival injection, exopthalmos - Respiratory Respiratory: bilateral: CTA, negative: rales, rhonchi - Cardiovascular Rhythm: regular (tachycardic to 110s) Heart Sounds: Present: S1 & S2 Extremities: No edema Extremity abnormal: other (left hip incision healing well) - Gastrointestinal General gastrointestinal: Present: soft, non-distended - Genitourinary Female genitourinary: other (Montes with yellow urine) - Integumentary Integumentary: no rash - Neurologic Neurologic: other (sedated) - Additional findings Additional findings: right groin vascath; left upper arm PICC - Labs CBC & Chem 7: 10/11/16 12:54 10/11/16 12:54 Labs: Abnormal lab results 10/09/16 10/10/16 10/10/16 Range/Units 10:00 11:29 13:03 PT 17.6 H (12.2-14.9) Sec. INR 1.45 H (0.87-1.13) POC ABG pCO2 (35-45) POC ABG pO2 (80-105) POC Glucose 177 H (70-105) Crossmatch See Detail 0510/11/16 10/11/16 Range/Units 17:38 00:04 05:35 PT (12.2-14.9) Sec. INR (0.87-1.13) POC ABG pCO2 56.6 H (35-45) POC ABG pO2 63 L (80-105) POC Glucose 173 H 155 H (70-105) Crossmatch 10/11/16 Range/Units 06:01 PT (12.2-14.9) Sec. INR (0.87-1.13) POC ABG pCO2 (35-45) POC ABG pO2 (80-105) POC Glucose 231 H (70-105) Crossmatch Microbiology 10/04/16 04:05 Tracheal Aspirate Herpes Simplex Virus Culture - Final 10/03/16 09:20 Peripheral/Venous Blood Culture - Final NO GROWTH AFTER 5 DAYS 10/03/16 09:30 Picc Blood Culture - Final NO GROWTH AFTER 5 DAYS 10/03/16 09:06 Urine,Catheterized - Indwelling Catheter Urine Culture - Final 09/27/16 22:47 Peripheral/Venous Blood Culture - Final NO GROWTH AFTER 5 DAYS 09/27/16 22:47 Peripheral/Venous Blood Culture - Final NO GROWTH AFTER 5 DAYS 09/27/16 15:06 Peripheral/Venous Blood Culture - Final NO GROWTH AFTER 5 DAYS 09/27/16 14:40 Peripheral/Venous Blood Culture - Final NO GROWTH AFTER 5 DAYS 09/30/16 Unknown Tracheal Aspirate Sputum Culture - Final Active Medications Acetaminophen (Tylenol) 650 mg PO Q4H PRN PRN Reason: Pain MILD(1-3)/Fever >100.5/PALACIOS Last Admin: 10/07/16 18:13 Dose: 650 mg Albuterol/Ipratropium (Duoneb 0.5 Mg-3 Mg/3 Ml Soln) 1 ampul IH Q6HRT [facility] Last Admin: 10/11/16 08:23 Dose: Not Given Lipase/Protease/Amylase (Pancreaze Dr 10,500 Unit) 1 each FEEDTUBE PRN PRN PRN Reason: For Clogged Feeding Tube Arformoterol Tartrate (Brovana Nebu) 15 mcg IH Q12HRT [facility] Last Admin: 10/11/16 08:22 Dose: 15 mcg Aspirin (Aspirin) 325 mg PO QDAY [facility] Last Admin: 10/10/16 11:00 Dose: 325 mg Budesonide (Pulmicort) 0.5 mg IH Q12HRT [facility] Last Admin: 10/11/16 08:22 Dose: 0.5 mg Diphenhydramine HCl (Benadryl) 12.5 mg IV Q4H PRN PRN Reason: Itching Last Admin: 09/30/16 07:02 Dose: 12.5 mg Enoxaparin Sodium (Lovenox) 40 mg SUB-Q QDAY [facility] Last Admin: 10/10/16 10:59 Dose: 40 mg Famotidine (Pepcid) 20 mg PO BID [facility] Last Admin: 10/10/16 23:16 Dose: 20 mg Folic Acid (Folvite) 1 mg PO QDAY [facility] Last Admin: 10/10/16 11:00 Dose: 1 mg Furosemide (Lasix) 40 mg IV Q8H [facility] Last Admin: 10/11/16 00:00 Dose: 40 mg Hydrophilic Ointment (Vaseline Lip Therapy) 1 applic TP Q2HR PRN PRN Reason: Dry Lips Fentanyl Citrate (Fentanyl Drip Premix) 2,000 mcg in 100 mls @ 4.649 mls/hr IV TITR [facility]; 1 MCG/KG/HR PRN Reason: Protocol Last Admin: 10/11/16 03:23 Dose: 2 mcg/kg/hr, 9.299 mls/hr Propofol (Diprivan 10 Mg/Ml) 1,000 mg in 100 mls @ 2.79 mls/hr IV TITR [facility]; 5 MCG/KG/MIN PRN Reason: Protocol Last Admin: 10/10/16 20:00 Dose: 15 mcg/kg/min, 8.369 mls/hr Midazolam HCl 100 mg/ Sodium (Chloride) 100 mls @ 2 mls/hr IV TITR [facility]; 2 MG/HR PRN Reason: Protocol Last Admin: 10/04/16 12:54 Dose: 2 mg/hr, 2 mls/hr Metronidazole (Flagyl 500 Mg/100 Ml) 500 mg in 100 mls @ 100 mls/hr IV Q8HR [facility] Last Admin: 10/11/16 06:47 Dose: 100 mls/hr Dextrose (D5w) 1,000 mls @ 50 mls/hr IV DIRECT [facility] Last Admin: 10/10/16 11:00 Dose: 50 mls/hr Insulin Human Regular (Novolin R) 0 units SUB-Q Q6HR [facility] PRN Reason: Protocol Last Admin: 10/11/16 06:00 Dose: 2 units Multi-Ingred Cream/Lotion/Oil/Oint (Artificial Tears Ophth Oint) 1 applic OU Q4HR PRN PRN Reason: Dry Eye(s) Multivitamins (Theragran Tab) 1 each PO QDAY [facility] Last Admin: 10/10/16 10:59 Dose: 1 each Ondansetron HCl (Zofran) 4 mg IV Q8H PRN PRN Reason: Nausea And Vomiting Last Admin: 09/29/16 23:07 Dose: 4 mg Promethazine HCl (Phenergan) 25 mg IA Q6H PRN PRN Reason: Nausea And Vomiting Last Admin: 09/25/16 22:05 Dose: 25 mg Senna (Senokot) 17.2 mg PO DAILY [facility] Last Admin: 10/10/16 11:00 Dose: 17.2 mg Simple Syrup (Simple Syrup) 15 ml FEEDTUBE PRN PRN PRN Reason: Hypoglycemia Simple Syrup (Simple Syrup) 30 ml FEEDTUBE PRN PRN PRN Reason: Hypoglycemia Sodium Bicarbonate (Sodium Bicarbonate) 325 mg FEEDTUBE PRN PRN PRN Reason: For Clogged Feeding Tube Sodium Chloride (Sodium Chloride Flush Syringe 10 Ml) 10 ml IV PRN PRN PRN Reason: LINE FLUSH Tramadol HCl (Ultram) 50 mg PO Q4H PRN PRN Reason: Pain, Moderate (4-6) Last Admin: 10/06/16 21:54 Dose: 50 mg Valacyclovir HCl (Valtrex) 500 mg PO DAILY [facility] Last Admin: 10/10/16 11:00 Dose: 500 mg Zolpidem Tartrate (Ambien) 5 mg PO QHS PRN PRN Reason: Sleep - Imaging and cardiology Chest x-ray: report reviewed (pulmonary infiltrates, less consolidated than on previous radiographs) Other: report reviewed (Abdominal Xray - placement of right groin catheter, otherwise unremarkable)
[2016-10-11] MEDS: ASPIRIN PO SCH (10:16)
[2016-10-11] MEDS: FOLVITE PO SCH (10:16)
[2016-10-11] MEDS: PEPCID PO SCH ×2 (10:16→21:53)
[2016-10-11] MEDS: SENOKOT PO SCH (10:16)
[2016-10-11] MEDS: VALTREX PO SCH (10:16)
[2016-10-11] MEDS: LOVENOX SUB-Q SCH (10:17)
[2016-10-11] MEDS: THERAGRAN Tab PO SCH ×2 (10:21→10:23)
[2016-10-11] MEDS: D5W 1,000 ML IV SCH (12:00)
--- NOTE | 2016-10-11 13:35 | Progress Note ---
Assessment and Plan 1) Avascular necrosis of bone of left hip Current Visit: Yes Status: Chronic Plan to address problem: S/P Athroplasty to left hip on 09/25/16 (2) Acute respiratory failure with hypoxia Current Visit: Yes Status: Acute Plan to address problem: ARDS, On vent support as per pulmonary (3) Acute renal failure due to tubular necrosis Current Visit: Yes Status: Acute Plan to address problem: labps pending today, good uop Avoid Nephrotoxic agents Renally dose medications Monitor I/O's (4) Sepsis syndrome Current Visit: Yes Status: Acute Plan to address problem: ID on board. negative cultures (5) Acute hypernatremia Current Visit: Yes Status: Acute Plan to address problem: Na level is pending,cont water flushes and D5W @ 50 cc/h, will adjust as needed Subjective Date of service: 10/11/16 Principal diagnosis: Acute Hypoxemic Respiratory Failure; ARDS Interval history: intubated but awake, cano snot follow commands Objective - Vital Signs Vital signs: Vital Signs - 12hr 10/11/16 10/11/16 10/11/16 01:41 01:51 02:00 Temperature Pulse Rate 97 H 97 H 90 Pulse Rate [ Anterior Bilateral Throughout] Pulse Rate [ From Monitor] Respiratory 14 14 21 Rate Respiratory Rate [Anterior Bilateral Throughout] Blood Pressure 107/62 107/62 113/80 O2 Sat by Pulse 93 92 Oximetry 10/11/16 10/11/16 10/11/16 02:11 02:21 02:30 Temperature Pulse Rate 102 H 106 H 105 H Pulse Rate [ Anterior Bilateral Throughout] Pulse Rate [ From Monitor] Respiratory 18 16 15 Rate Respiratory Rate [Anterior Bilateral Throughout] Blood Pressure 113/80 113/80 121/88 O2 Sat by Pulse 89 90 97 Oximetry 10/11/16 10/11/16 10/11/16 02:41 02:45 02:51 Temperature Pulse Rate 108 H 108 H Pulse Rate [ 111 H Anterior Bilateral Throughout] Pulse Rate [ From Monitor] Respiratory 16 14 Rate Respiratory 32 H Rate [Anterior Bilateral Throughout] Blood Pressure 121/88 121/88 O2 Sat by Pulse 88 92 Oximetry 10/11/16 10/11/16 10/11/16 02:55 03:01 03:06 Temperature Pulse Rate 112 H 115 H Pulse Rate [ 117 H Anterior Bilateral Throughout] Pulse Rate [ From Monitor] Respiratory 14 Rate Respiratory 31 H Rate [Anterior Bilateral Throughout] Blood Pressure 123/94 123/94 O2 Sat by Pulse 87 88 Oximetry 10/11/16 10/11/16 10/11/16 03:11 03:21 03:30 Temperature Pulse Rate 113 H 124 H 124 H Pulse Rate [ Anterior Bilateral Throughout] Pulse Rate [ From Monitor] Respiratory 13 14 14 Rate Respiratory Rate [Anterior Bilateral Throughout] Blood Pressure 123/94 123/94 118/93 O2 Sat by Pulse 94 91 89 Oximetry 10/11/16 10/11/16 10/11/16 03:41 03:51 04:00 Temperature 98.7 F Pulse Rate 121 H 121 H 120 H Pulse Rate [ Anterior Bilateral Throughout] Pulse Rate [ 101 H From Monitor] Respiratory 14 14 14 Rate Respiratory Rate [Anterior Bilateral Throughout] Blood Pressure 118/93 118/93 128/85 O2 Sat by Pulse 92 92 88 Oximetry 10/11/16 10/11/16 10/11/16 04:11 04:21 04:30 Temperature Pulse Rate 123 H 122 H 120 H Pulse Rate [ Anterior Bilateral Throughout] Pulse Rate [ From Monitor] Respiratory 14 14 13 Rate Respiratory Rate [Anterior Bilateral Throughout] Blood Pressure 128/85 128/85 110/86 O2 Sat by Pulse 92 94 93 Oximetry 10/11/16 10/11/16 10/11/16 04:41 04:51 05:00 Temperature Pulse Rate 120 H 122 H 123 H Pulse Rate [ Anterior Bilateral Throughout] Pulse Rate [ From Monitor] Respiratory 14 15 14 Rate Respiratory Rate [Anterior Bilateral Throughout] Blood Pressure 110/86 110/86 103/85 O2 Sat by Pulse 94 94 89 Oximetry 10/11/16 10/11/16 10/11/16 05:11 05:21 05:30 Temperature Pulse Rate 124 H 119 H 117 H Pulse Rate [ Anterior Bilateral Throughout] Pulse Rate [ From Monitor] Respiratory 14 14 15 Rate Respiratory Rate [Anterior Bilateral Throughout] Blood Pressure 103/85 103/85 121/80 O2 Sat by Pulse 94 95 Oximetry 10/11/16 10/11/16 10/11/16 05:41 05:51 06:00 Temperature Pulse Rate 118 H 121 H 120 H Pulse Rate [ Anterior Bilateral Throughout] Pulse Rate [ From Monitor] Respiratory 16 14 14 Rate Respiratory Rate [Anterior Bilateral Throughout] Blood Pressure 121/80 121/80 129/68 O2 Sat by Pulse 93 94 Oximetry 10/11/16 10/11/16 10/11/16 06:11 06:21 06:30 Temperature Pulse Rate 116 H 119 H 121 H Pulse Rate [ Anterior Bilateral Throughout] Pulse Rate [ From Monitor] Respiratory 14 14 13 Rate Respiratory Rate [Anterior Bilateral Throughout] Blood Pressure 129/68 129/68 107/81 O2 Sat by Pulse 94 94 Oximetry 10/11/16 10/11/16 10/11/16 06:41 06:51 07:00 Temperature Pulse Rate 119 H 119 H 119 H Pulse Rate [ Anterior Bilateral Throughout] Pulse Rate [ From Monitor] Respiratory 14 14 19 Rate Respiratory Rate [Anterior Bilateral Throughout] Blood Pressure 107/81 107/81 128/83 O2 Sat by Pulse 93 94 93 Oximetry 10/11/16 10/11/16 10/11/16 07:10 07:21 07:30 Temperature Pulse Rate 115 H 117 H 116 H Pulse Rate [ Anterior Bilateral Throughout] Pulse Rate [ From Monitor] Respiratory 12 14 14 Rate Respiratory Rate [Anterior Bilateral Throughout] Blood Pressure 128/83 128/83 117/76 O2 Sat by Pulse 94 94 Oximetry 10/11/16 10/11/16 10/11/16 07:41 07:51 08:00 Temperature 99.3 F Pulse Rate 118 H 116 H 110 H Pulse Rate [ Anterior Bilateral Throughout] Pulse Rate [ 111 H From Monitor] Respiratory 14 14 14 Rate Respiratory Rate [Anterior Bilateral Throughout] Blood Pressure 128/83 128/83 109/74 O2 Sat by Pulse 94 94 96 Oximetry 10/11/16 10/11/16 10/11/16 08:11 08:17 08:21 Temperature Pulse Rate 113 H 110 H 119 H Pulse Rate [ 111 H Anterior Bilateral Throughout] Pulse Rate [ From Monitor] Respiratory 14 14 Rate Respiratory 15 Rate [Anterior Bilateral Throughout] Blood Pressure 117/76 109/74 117/76 O2 Sat by Pulse 95 95 100 Oximetry 10/11/16 10/11/16 10/11/16 08:30 08:41 08:51 Temperature Pulse Rate 109 H 110 H 116 H Pulse Rate [ 114 H Anterior Bilateral Throughout] Pulse Rate [ From Monitor] Respiratory 13 19 14 Rate Respiratory 15 Rate [Anterior Bilateral Throughout] Blood Pressure 124/95 124/95 124/95 O2 Sat by Pulse 92 90 92 Oximetry 10/11/16 10/11/16 10/11/16 09:00 09:11 09:21 Temperature Pulse Rate 117 H 117 H 117 H Pulse Rate [ Anterior Bilateral Throughout] Pulse Rate [ From Monitor] Respiratory 13 14 14 Rate Respiratory Rate [Anterior Bilateral Throughout] Blood Pressure 129/103 129/103 129/103 O2 Sat by Pulse 93 95 94 Oximetry 10/11/16 10/11/16 10/11/16 09:30 09:41 09:51 Temperature Pulse Rate 116 H 112 H 107 H Pulse Rate [ Anterior Bilateral Throughout] Pulse Rate [ From Monitor] Respiratory 14 14 13 Rate Respiratory Rate [Anterior Bilateral Throughout] Blood Pressure 115/72 115/72 115/72 O2 Sat by Pulse 94 95 96 Oximetry 10/11/16 10/11/16 10/11/16 10:00 10:11 10:21 Temperature Pulse Rate 113 H 108 H 112 H Pulse Rate [ Anterior Bilateral Throughout] Pulse Rate [ From Monitor] Respiratory 14 14 13 Rate Respiratory Rate [Anterior Bilateral Throughout] Blood Pressure 111/73 111/73 111/73 O2 Sat by Pulse 94 94 Oximetry 10/11/16 10/11/16 10/11/16 10:30 10:41 10:51 Temperature Pulse Rate 111 H 111 H 114 H Pulse Rate [ Anterior Bilateral Throughout] Pulse Rate [ From Monitor] Respiratory 13 13 14 Rate Respiratory Rate [Anterior Bilateral Throughout] Blood Pressure 133/86 133/86 133/86 O2 Sat by Pulse 93 94 95 Oximetry 10/11/16 10/11/16 10/11/16 11:00 11:15 12:00 Temperature 99.6 F Pulse Rate 109 H 111 H Pulse Rate [ Anterior Bilateral Throughout] Pulse Rate [ From Monitor] Respiratory 14 Rate Respiratory Rate [Anterior Bilateral Throughout] Blood Pressure 109/70 109/70 O2 Sat by Pulse 96 94 Oximetry 10/11/16 10/11/16 12:26 12:45 Temperature Pulse Rate 105 H 113 H Pulse Rate [ Anterior Bilateral Throughout] Pulse Rate [ From Monitor] Respiratory Rate Respiratory Rate [Anterior Bilateral Throughout] Blood Pressure O2 Sat by Pulse 93 92 Oximetry - General Appearance General appearance: well-developed, well-nourished EENT: ATNC, mucous membranes moist, mucous membranes dry Neck: no JVD, no carotid bruit Respiratory: Present: Rales, Ronchi Cardiology: regular, S1S2 Gastrointestinal: normoactive bowel sounds, no tenderness, no distended, no masses, obese Integumentary: no rash, warm and dry Neurologic: other (does not follow commands, intubated) Musculoskeletal: other (trace pitting edema in all ext) Psychiatric: other (does not answer questions) - Lab 10/10/16 06:00 10/10/16 06:00 Most recent lab results Calcium 9.2 mg/dL (8.4-10.2) 10/10/16 06:00 Phosphorus 3.60 mg/dL (2.5-4.5) 10/04/16 04:03 Urine Creatinine 63.2 mg/dL (0.1-20.0) H 10/03/16 15:54 Urine Sodium 20 mEq/L 10/03/16 15:54 Urine Total Protein 67 mg/dL (5-11.8) H 10/03/16 15:54
[2016-10-11 13:37] LABS: Hematocrit 37.7 % (30.3-42.9); Hemoglobin 12.2 gm/dl (10.1-14.3); Mean Corpuscular HGB Conc 32 % (30-34); Mean Corpuscular Hemoglobin 28 pg (28-32); Mean Corpuscular Volume 88 fl (79-97); Platelet Count 175 K/mm3 (140-440); Red Cell Distribution Width 17.8 % (13.2-15.2)
--- NOTE | 2016-10-11 13:45 | Progress Note ---
Assessment and Plan - Patient Problems (1) Acute respiratory failure with hypoxia Current Visit: Yes Status: Acute Plan to address problem: - continue APRV - changed settings (Phigh reduced to 40 and Plow increased to 12) - allow permissive hypercapnia - continue bronchodilators and pulmonary toilet - continue aspiration precautions / VAP bundles - continue to wean oxygen for sats > 90-92% at this point - serial ABG's - lighten sedation to allow spontaneous breathing also - repeat CXR now - continue diuresis / targeting negative fluid balance (will reduce to q12h dosing on the lasix) - for exchange blood transfusion - will plan bronchoscopy with BAL once more stable / back on conventional mode (2) ARDS (adult respiratory distress syndrome) Current Visit: Yes Status: Acute Plan to address problem: - 2D ECHO reports normal EF without impaired relaxation - non cardiogenic pulmonary edema - etiology unclear - treating empirically as HCAP - switched to APRV and tolerating so far - continue diuresis (3) Obesity Current Visit: Yes Status: Acute Qualifiers: Obesity type: O Obesity severity: O Plan to address problem: - weight loss counselled earlier - outpatient sleep clinic evaluation at discharge (4) Sepsis syndrome Current Visit: Yes Status: Acute Plan to address problem: - continue anti-infectives per ID recs - trend CRP / lactate prn (5) Anemia Current Visit: Yes Status: Acute Qualifiers: Anemia type: A Iron deficiency anemia type: I Vitamin B12 deficiency anemia type: V Folate deficiency anemia type: F Bone marrow failure anemia type: B Hemolytic anemia type: H Other causes of anemia: O Plan to address problem: - multifactorial - suspect ABLA component - h/o sickle cell - prn PRBC transfusions - hematology following - s/p exchange blood transfusion (6) CARLYN (acute kidney injury) Current Visit: Yes Status: Acute Plan to address problem: - non oliguric - per nephrology recommendations (7) Discharge planning issues Current Visit: Yes Status: Acute Plan to address problem: - appears may be a prolonged ICU stay .....she remains critically ill on life sustaining interventions including MVS and remains at risk for further deterioration including 30' CCT Subjective Date of service: 10/11/16 Principal diagnosis: Acute Hypoxemic Respiratory Failure; ARDS Interval history: Seen and examined at bedside; 24 hour events reviewed; nursing and respiratory care staff consulted; no adverse overnight events reported to me; remains on APRV; stuck on 55% FiO2; CXR reviewed and overall improved but with persistent infiltrates Objective Vital Signs - 12hr 10/11/16 10/11/16 10/11/16 01:51 02:00 02:11 Temperature Pulse Rate 97 H 90 102 H Pulse Rate [ Anterior Bilateral Throughout] Pulse Rate [ From Monitor] Respiratory 14 21 18 Rate Respiratory Rate [Anterior Bilateral Throughout] Blood Pressure 107/62 113/80 113/80 O2 Sat by Pulse 92 89 Oximetry 10/11/16 10/11/16 10/11/16 02:21 02:30 02:41 Temperature Pulse Rate 106 H 105 H 108 H Pulse Rate [ Anterior Bilateral Throughout] Pulse Rate [ From Monitor] Respiratory 16 15 16 Rate Respiratory Rate [Anterior Bilateral Throughout] Blood Pressure 113/80 121/88 121/88 O2 Sat by Pulse 90 97 88 Oximetry 10/11/16 10/11/16 10/11/16 02:45 02:51 02:55 Temperature Pulse Rate 108 H Pulse Rate [ 111 H 117 H Anterior Bilateral Throughout] Pulse Rate [ From Monitor] Respiratory 14 Rate Respiratory 32 H 31 H Rate [Anterior Bilateral Throughout] Blood Pressure 121/88 O2 Sat by Pulse 92 Oximetry 10/11/16 10/11/16 10/11/16 03:01 03:06 03:11 Temperature Pulse Rate 112 H 115 H 113 H Pulse Rate [ Anterior Bilateral Throughout] Pulse Rate [ From Monitor] Respiratory 14 13 Rate Respiratory Rate [Anterior Bilateral Throughout] Blood Pressure 123/94 123/94 123/94 O2 Sat by Pulse 87 88 94 Oximetry 10/11/16 10/11/16 10/11/16 03:21 03:30 03:41 Temperature Pulse Rate 124 H 124 H 121 H Pulse Rate [ Anterior Bilateral Throughout] Pulse Rate [ From Monitor] Respiratory 14 14 14 Rate Respiratory Rate [Anterior Bilateral Throughout] Blood Pressure 123/94 118/93 118/93 O2 Sat by Pulse 91 89 92 Oximetry 10/11/16 10/11/16 10/11/16 03:51 04:00 04:11 Temperature 98.7 F Pulse Rate 121 H 120 H 123 H Pulse Rate [ Anterior Bilateral Throughout] Pulse Rate [ 101 H From Monitor] Respiratory 14 14 14 Rate Respiratory Rate [Anterior Bilateral Throughout] Blood Pressure 118/93 128/85 128/85 O2 Sat by Pulse 92 88 92 Oximetry 10/11/16 10/11/16 10/11/16 04:21 04:30 04:41 Temperature Pulse Rate 122 H 120 H 120 H Pulse Rate [ Anterior Bilateral Throughout] Pulse Rate [ From Monitor] Respiratory 14 13 14 Rate Respiratory Rate [Anterior Bilateral Throughout] Blood Pressure 128/85 110/86 110/86 O2 Sat by Pulse 94 93 94 Oximetry 10/11/16 10/11/16 10/11/16 04:51 05:00 05:11 Temperature Pulse Rate 122 H 123 H 124 H Pulse Rate [ Anterior Bilateral Throughout] Pulse Rate [ From Monitor] Respiratory 15 14 14 Rate Respiratory Rate [Anterior Bilateral Throughout] Blood Pressure 110/86 103/85 103/85 O2 Sat by Pulse 94 89 94 Oximetry 10/11/16 10/11/16 10/11/16 05:21 05:30 05:41 Temperature Pulse Rate 119 H 117 H 118 H Pulse Rate [ Anterior Bilateral Throughout] Pulse Rate [ From Monitor] Respiratory 14 15 16 Rate Respiratory Rate [Anterior Bilateral Throughout] Blood Pressure 103/85 121/80 121/80 O2 Sat by Pulse 95 93 Oximetry 10/11/16 10/11/16 10/11/16 05:51 06:00 06:11 Temperature Pulse Rate 121 H 120 H 116 H Pulse Rate [ Anterior Bilateral Throughout] Pulse Rate [ From Monitor] Respiratory 14 14 14 Rate Respiratory Rate [Anterior Bilateral Throughout] Blood Pressure 121/80 129/68 129/68 O2 Sat by Pulse 94 94 Oximetry 10/11/16 10/11/16 10/11/16 06:21 06:30 06:41 Temperature Pulse Rate 119 H 121 H 119 H Pulse Rate [ Anterior Bilateral Throughout] Pulse Rate [ From Monitor] Respiratory 14 13 14 Rate Respiratory Rate [Anterior Bilateral Throughout] Blood Pressure 129/68 107/81 107/81 O2 Sat by Pulse 94 93 Oximetry 10/11/16 10/11/16 10/11/16 06:51 07:00 07:10 Temperature Pulse Rate 119 H 119 H 115 H Pulse Rate [ Anterior Bilateral Throughout] Pulse Rate [ From Monitor] Respiratory 14 19 12 Rate Respiratory Rate [Anterior Bilateral Throughout] Blood Pressure 107/81 128/83 128/83 O2 Sat by Pulse 94 93 94 Oximetry 10/11/16 10/11/16 10/11/16 07:21 07:30 07:41 Temperature Pulse Rate 117 H 116 H 118 H Pulse Rate [ Anterior Bilateral Throughout] Pulse Rate [ From Monitor] Respiratory 14 14 14 Rate Respiratory Rate [Anterior Bilateral Throughout] Blood Pressure 128/83 117/76 128/83 O2 Sat by Pulse 94 94 Oximetry 10/11/16 10/11/16 10/11/16 07:51 08:00 08:11 Temperature 99.3 F Pulse Rate 116 H 110 H 113 H Pulse Rate [ Anterior Bilateral Throughout] Pulse Rate [ 111 H From Monitor] Respiratory 14 14 14 Rate Respiratory Rate [Anterior Bilateral Throughout] Blood Pressure 128/83 109/74 117/76 O2 Sat by Pulse 94 96 95 Oximetry 10/11/16 10/11/16 10/11/16 08:17 08:21 08:30 Temperature Pulse Rate 110 H 119 H 109 H Pulse Rate [ 111 H 114 H Anterior Bilateral Throughout] Pulse Rate [ From Monitor] Respiratory 14 13 Rate Respiratory 15 15 Rate [Anterior Bilateral Throughout] Blood Pressure 109/74 117/76 124/95 O2 Sat by Pulse 95 100 92 Oximetry 10/11/16 10/11/16 10/11/16 08:41 08:51 09:00 Temperature Pulse Rate 110 H 116 H 117 H Pulse Rate [ Anterior Bilateral Throughout] Pulse Rate [ From Monitor] Respiratory 19 14 13 Rate Respiratory Rate [Anterior Bilateral Throughout] Blood Pressure 124/95 124/95 129/103 O2 Sat by Pulse 90 92 93 Oximetry 10/11/16 10/11/16 10/11/16 09:11 09:21 09:30 Temperature Pulse Rate 117 H 117 H 116 H Pulse Rate [ Anterior Bilateral Throughout] Pulse Rate [ From Monitor] Respiratory 14 14 14 Rate Respiratory Rate [Anterior Bilateral Throughout] Blood Pressure 129/103 129/103 115/72 O2 Sat by Pulse 95 94 94 Oximetry 10/11/16 10/11/16 10/11/16 09:41 09:51 10:00 Temperature Pulse Rate 112 H 107 H 113 H Pulse Rate [ Anterior Bilateral Throughout] Pulse Rate [ From Monitor] Respiratory 14 13 14 Rate Respiratory Rate [Anterior Bilateral Throughout] Blood Pressure 115/72 115/72 111/73 O2 Sat by Pulse 95 96 Oximetry 10/11/16 10/11/16 10/11/16 10:11 10:21 10:30 Temperature Pulse Rate 108 H 112 H 111 H Pulse Rate [ Anterior Bilateral Throughout] Pulse Rate [ From Monitor] Respiratory 14 13 13 Rate Respiratory Rate [Anterior Bilateral Throughout] Blood Pressure 111/73 111/73 133/86 O2 Sat by Pulse 94 94 93 Oximetry 10/11/16 10/11/16 10/11/16 10:41 10:51 11:00 Temperature Pulse Rate 111 H 114 H 109 H Pulse Rate [ Anterior Bilateral Throughout] Pulse Rate [ From Monitor] Respiratory 13 14 14 Rate Respiratory Rate [Anterior Bilateral Throughout] Blood Pressure 133/86 133/86 109/70 O2 Sat by Pulse 94 95 96 Oximetry 10/11/16 10/11/16 10/11/16 11:15 12:00 12:26 Temperature 99.6 F Pulse Rate 111 H 105 H Pulse Rate [ Anterior Bilateral Throughout] Pulse Rate [ From Monitor] Respiratory Rate Respiratory Rate [Anterior Bilateral Throughout] Blood Pressure 109/70 O2 Sat by Pulse 94 93 Oximetry 10/11/16 12:45 Temperature Pulse Rate 113 H Pulse Rate [ Anterior Bilateral Throughout] Pulse Rate [ From Monitor] Respiratory Rate Respiratory Rate [Anterior Bilateral Throughout] Blood Pressure O2 Sat by Pulse 92 Oximetry Constitutional: appears uncomfortable, other (sedated) Eyes: non-icteric ENT: oropharynx moist Neck: supple, no lymphadenopathy Effort: mildly labored Ascultation: Bilateral: diminished breath sounds, rales Cardiovascular: regular rate and rhythm Gastrointestinal: normoactive bowel sounds, soft, non-tender, non-distended Integumentary: normal Extremities: no cyanosis, no edema, pulses normal, no ischemia or petechiae Neurologic: unable to assess Psychiatric: other (sedated now) CBC and BMP: 10/11/16 12:54 10/11/16 12:54 ABG, PT/INR, D-dimer: ABG POC ABG pH 7.382 (7.35-7.45) 10/11/16 05:35 POC ABG pCO2 56.6 (35-45) H 10/11/16 05:35 POC ABG pO2 63 (80-105) L 10/11/16 05:35 POC ABG HCO3 33.7 10/11/16 05:35 POC ABG Total CO2 35 10/11/16 05:35 POC ABG O2 Sat 91 10/11/16 05:35 PT/INR, D-dimer PT 17.6 Sec. (12.2-14.9) H 10/10/16 13:03 INR 1.45 (0.87-1.13) H 10/10/16 13:03 D-Dimer 4758.12 ng/mlDDU (0-234) H 09/27/16 22:47 Abnormal lab findings: Abnormal Labs 09/20/16 09/20/16 09/20/16 10:35 10:35 10:35 WBC 11.7 H RBC Hgb Hct MCV 75 L MCH 24 L RDW 16.6 H Plt Count Seg Neuts % (Manual) Lymphocytes % (Manual) Monocytes % (Manual) Eosinophils % (Manual) Nucleated RBC % Seg Neutrophils # Man Lymphocytes # (Manual) Monocytes # (Manual) Eosinophils # (Manual) Percent Retic PT INR 1.14 H D-Dimer POC ABG pH POC ABG pCO2 POC ABG pO2 Sodium Potassium Chloride Carbon Dioxide BUN Creatinine 0.5 L Glucose 115 H POC Glucose Lactic Acid Calcium Ferritin Total Bilirubin 2.0 H Lactate Dehydrogenase Total Creatine Kinase CK-MB (CK-2) C-Reactive Protein NT-Pro-B Natriuret Pep Total Protein Albumin Triglycerides Urine WBC (Auto) Urine Creatinine Urine Total Protein Vancomycin Trough Random Vancomycin Crossmatch 09/26/16 09/26/16 09/27/16 04:26 04:26 10:26 WBC RBC Hgb 8.9 L Hct 28.0 L MCV MCH RDW Plt Count Seg Neuts % (Manual) Lymphocytes % (Manual) Monocytes % (Manual) Eosinophils % (Manual) Nucleated RBC % Seg Neutrophils # Man Lymphocytes # (Manual) Monocytes # (Manual) Eosinophils # (Manual) Percent Retic PT INR D-Dimer POC ABG pH 7.283 L POC ABG pCO2 45.3 H POC ABG pO2 79 L Sodium Potassium Chloride Carbon Dioxide 20 L BUN Creatinine Glucose 129 H POC Glucose Lactic Acid Calcium 7.6 L Ferritin Total Bilirubin Lactate Dehydrogenase Total Creatine Kinase CK-MB (CK-2) C-Reactive Protein NT-Pro-B Natriuret Pep Total Protein Albumin Triglycerides Urine WBC (Auto) Urine Creatinine Urine Total Protein Vancomycin Trough Random Vancomycin Crossmatch 09/27/16 09/27/16 09/27/16 14:40 14:40 15:14 WBC 39.3 H RBC Hgb 9.3 L Hct 28.9 L MCV 75 L MCH 24 L RDW 18.7 H Plt Count Seg Neuts % (Manual) 93.5 H Lymphocytes % (Manual) 5.0 L Monocytes % (Manual) Eosinophils % (Manual) Nucleated RBC % Seg Neutrophils # Man 36.7 H Lymphocytes # (Manual) Monocytes # (Manual) Eosinophils # (Manual) Percent Retic PT INR D-Dimer POC ABG pH POC ABG pCO2 POC ABG pO2 Sodium Potassium Chloride Carbon Dioxide BUN Creatinine Glucose POC Glucose Lactic Acid 2.9 H* Calcium Ferritin Total Bilirubin Lactate Dehydrogenase Total Creatine Kinase 3575 H CK-MB (CK-2) 11.0 H C-Reactive Protein 16.10 H NT-Pro-B Natriuret Pep Total Protein Albumin Triglycerides Urine WBC (Auto) Urine Creatinine Urine Total Protein Vancomycin Trough Random Vancomycin Crossmatch 09/27/16 09/27/16 09/27/16 18:05 22:47 22:47 WBC RBC Hgb Hct MCV MCH RDW Plt Count Seg Neuts % (Manual) Lymphocytes % (Manual) Monocytes % (Manual) Eosinophils % (Manual) Nucleated RBC % Seg Neutrophils # Man Lymphocytes # (Manual) Monocytes # (Manual) Eosinophils # (Manual) Percent Retic PT INR D-Dimer 4758.12 H POC ABG pH POC ABG pCO2 POC ABG pO2 70 L Sodium Potassium Chloride Carbon Dioxide BUN Creatinine Glucose POC Glucose Lactic Acid Calcium Ferritin Total Bilirubin Lactate Dehydrogenase 829 H Total Creatine Kinase CK-MB (CK-2) C-Reactive Protein NT-Pro-B Natriuret Pep Total Protein Albumin Triglycerides Urine WBC (Auto) Urine Creatinine Urine Total Protein Vancomycin Trough Random Vancomycin Crossmatch 09/27/16 09/28/16 09/28/16 22:47 09:20 10:47 WBC RBC Hgb Hct MCV MCH RDW Plt Count Seg Neuts % (Manual) Lymphocytes % (Manual) Monocytes % (Manual) Eosinophils % (Manual) Nucleated RBC % Seg Neutrophils # Man Lymphocytes # (Manual) Monocytes # (Manual) Eosinophils # (Manual) Percent Retic 8.11 H PT INR D-Dimer POC ABG pH POC ABG pCO2 47.2 H POC ABG pO2 70 L Sodium Potassium Chloride Carbon Dioxide BUN Creatinine 0.6 L Glucose 137 H POC Glucose Lactic Acid Calcium Ferritin Total Bilirubin Lactate Dehydrogenase Total Creatine Kinase CK-MB (CK-2) C-Reactive Protein NT-Pro-B Natriuret Pep Total Protein Albumin Triglycerides Urine WBC (Auto) Urine Creatinine Urine Total Protein Vancomycin Trough Random Vancomycin Crossmatch 09/28/16 09/30/16 09/30/16 10:47 11:01 14:05 WBC 30.3 H RBC 3.27 L Hgb 8.1 L Hct 24.4 L MCV 75 L MCH 25 L RDW 18.9 H Plt Count Seg Neuts % (Manual) Lymphocytes % (Manual) 12.0 L Monocytes % (Manual) Eosinophils % (Manual) Nucleated RBC % 5.0 H Seg Neutrophils # Man 21.2 H Lymphocytes # (Manual) Monocytes # (Manual) 1.8 H Eosinophils # (Manual) Percent Retic PT INR D-Dimer POC ABG pH POC ABG pCO2 48.8 H POC ABG pO2 52 L Sodium Potassium Chloride Carbon Dioxide BUN Creatinine Glucose POC Glucose Lactic Acid Calcium Ferritin Total Bilirubin Lactate Dehydrogenase Total Creatine Kinase CK-MB (CK-2) C-Reactive Protein NT-Pro-B Natriuret Pep 2018 H Total Protein Albumin Triglycerides Urine WBC (Auto) Urine Creatinine Urine Total Protein Vancomycin Trough Random Vancomycin Crossmatch 09/30/16 09/30/16 09/30/16 14:05 14:05 14:05 WBC 22.1 H RBC 2.76 L Hgb 6.9 L Hct 20.6 L MCV 75 L MCH 25 L RDW 18.7 H Plt Count Seg Neuts % (Manual) 74.0 H Lymphocytes % (Manual) 7.0 L Monocytes % (Manual) Eosinophils % (Manual) Nucleated RBC % 52.0 H Seg Neutrophils # Man 16.4 H Lymphocytes # (Manual) Monocytes # (Manual) Eosinophils # (Manual) Percent Retic PT INR D-Dimer POC ABG pH POC ABG pCO2 POC ABG pO2 Sodium Potassium 3.1 L Chloride Carbon Dioxide BUN Creatinine 0.5 L Glucose 116 H POC Glucose Lactic Acid Calcium 8.2 L Ferritin Total Bilirubin Lactate Dehydrogenase Total Creatine Kinase CK-MB (CK-2) C-Reactive Protein 30.80 H NT-Pro-B Natriuret Pep Total Protein Albumin Triglycerides Urine WBC (Auto) Urine Creatinine Urine Total Protein Vancomycin Trough Random Vancomycin Crossmatch 09/30/16 10/01/16 10/01/16 14:33 00:55 00:55 WBC 26.1 H RBC 2.80 L Hgb 6.8 L Hct 20.8 L MCV 74 L MCH 24 L RDW 18.6 H Plt Count Seg Neuts % (Manual) 85.0 H Lymphocytes % (Manual) 11.0 L Monocytes % (Manual) Eosinophils % (Manual) Nucleated RBC % 21.0 H Seg Neutrophils # Man 22.2 H Lymphocytes # (Manual) Monocytes # (Manual) 1.0 H Eosinophils # (Manual) Percent Retic PT INR D-Dimer POC ABG pH POC ABG pCO2 47.8 H POC ABG pO2 201 H Sodium Potassium Chloride Carbon Dioxide BUN Creatinine Glucose POC Glucose Lactic Acid Calcium Ferritin Total Bilirubin Lactate Dehydrogenase Total Creatine Kinase CK-MB (CK-2) C-Reactive Protein NT-Pro-B Natriuret Pep Total Protein Albumin Triglycerides Urine WBC (Auto) Urine Creatinine Urine Total Protein Vancomycin Trough Random Vancomycin Crossmatch See Detail 10/01/16 10/01/16 10/01/16 04:57 05:00 13:01 WBC RBC Hgb Hct MCV MCH RDW Plt Count Seg Neuts % (Manual) Lymphocytes % (Manual) Monocytes % (Manual) Eosinophils % (Manual) Nucleated RBC % Seg Neutrophils # Man Lymphocytes # (Manual) Monocytes # (Manual) Eosinophils # (Manual) Percent Retic PT INR D-Dimer POC ABG pH POC ABG pCO2 58.5 H POC ABG pO2 149 H Sodium 149 H Potassium 3.0 L Chloride Carbon Dioxide BUN Creatinine Glucose POC Glucose 120 H Lactic Acid Calcium 8.3 L Ferritin Total Bilirubin Lactate Dehydrogenase Total Creatine Kinase CK-MB (CK-2) C-Reactive Protein NT-Pro-B Natriuret Pep Total Protein Albumin Triglycerides Urine WBC (Auto) Urine Creatinine Urine Total Protein Vancomycin Trough Random Vancomycin Crossmatch 10/01/16 10/01/16 10/01/16 15:43 17:44 23:37 WBC 27.6 H RBC 3.55 L Hgb 8.9 L Hct 27.6 L D MCV 78 L D MCH 25 L RDW 18.1 H Plt Count Seg Neuts % (Manual) 79.5 H Lymphocytes % (Manual) 8.0 L Monocytes % (Manual) Eosinophils % (Manual) Nucleated RBC % 65.0 H Seg Neutrophils # Man 21.9 H Lymphocytes # (Manual) Monocytes # (Manual) 1.0 H Eosinophils # (Manual) Percent Retic PT INR D-Dimer POC ABG pH POC ABG pCO2 POC ABG pO2 Sodium Potassium Chloride Carbon Dioxide BUN Creatinine Glucose POC Glucose 121 H 129 H Lactic Acid Calcium Ferritin Total Bilirubin Lactate Dehydrogenase Total Creatine Kinase CK-MB (CK-2) C-Reactive Protein NT-Pro-B Natriuret Pep Total Protein Albumin Triglycerides Urine WBC (Auto) Urine Creatinine Urine Total Protein Vancomycin Trough Random Vancomycin Crossmatch 0510/02/16 10/02/16 05:05 05:40 06:00 WBC 23.0 H RBC 3.30 L Hgb 8.3 L Hct 25.8 L MCV 78 L MCH 25 L RDW 18.2 H Plt Count Seg Neuts % (Manual) 83.5 H Lymphocytes % (Manual) 4.0 L Monocytes % (Manual) Eosinophils % (Manual) Nucleated RBC % 14.5 H Seg Neutrophils # Man 25.1 H Lymphocytes # (Manual) Monocytes # (Manual) 1.7 H Eosinophils # (Manual) Percent Retic PT INR D-Dimer POC ABG pH POC ABG pCO2 50.5 H POC ABG pO2 Sodium Potassium Chloride Carbon Dioxide BUN Creatinine Glucose POC Glucose 123 H Lactic Acid Calcium Ferritin Total Bilirubin Lactate Dehydrogenase Total Creatine Kinase CK-MB (CK-2) C-Reactive Protein NT-Pro-B Natriuret Pep Total Protein Albumin Triglycerides Urine WBC (Auto) Urine Creatinine Urine Total Protein Vancomycin Trough Random Vancomycin Crossmatch 10/02/16 10/02/16 10/02/16 06:00 11:42 21:52 WBC RBC Hgb Hct MCV MCH RDW Plt Count Seg Neuts % (Manual) Lymphocytes % (Manual) Monocytes % (Manual) Eosinophils % (Manual) Nucleated RBC % Seg Neutrophils # Man Lymphocytes # (Manual) Monocytes # (Manual) Eosinophils # (Manual) Percent Retic PT INR D-Dimer POC ABG pH 7.324 L POC ABG pCO2 60.5 H POC ABG pO2 74 L Sodium 150 H Potassium Chloride 108.3 H Carbon Dioxide BUN 20 H Creatinine 1.4 H D Glucose 117 H POC Glucose 135 H Lactic Acid Calcium Ferritin Total Bilirubin Lactate Dehydrogenase Total Creatine Kinase CK-MB (CK-2) C-Reactive Protein NT-Pro-B Natriuret Pep Total Protein Albumin Triglycerides Urine WBC (Auto) Urine Creatinine Urine Total Protein Vancomycin Trough Random Vancomycin Crossmatch 10/02/16 10/03/16 10/03/16 23:26 05:55 08:17 WBC 32.0 H RBC 3.13 L Hgb 7.9 L Hct 24.6 L MCV MCH 25 L RDW 18.9 H Plt Count 132 L Seg Neuts % (Manual) 75.0 H Lymphocytes % (Manual) 5.0 L Monocytes % (Manual) Eosinophils % (Manual) Nucleated RBC % 26.0 H Seg Neutrophils # Man 24.0 H Lymphocytes # (Manual) Monocytes # (Manual) 1.0 H Eosinophils # (Manual) 1.0 H Percent Retic PT INR D-Dimer POC ABG pH POC ABG pCO2 POC ABG pO2 Sodium Potassium Chloride Carbon Dioxide BUN Creatinine Glucose POC Glucose 121 H 145 H Lactic Acid Calcium Ferritin Total Bilirubin Lactate Dehydrogenase Total Creatine Kinase CK-MB (CK-2) C-Reactive Protein NT-Pro-B Natriuret Pep Total Protein Albumin Triglycerides Urine WBC (Auto) Urine Creatinine Urine Total Protein Vancomycin Trough Random Vancomycin Crossmatch 10/03/16 10/03/16 10/03/16 08:17 09:26 11:34 WBC RBC Hgb Hct MCV MCH RDW Plt Count Seg Neuts % (Manual) Lymphocytes % (Manual) Monocytes % (Manual) Eosinophils % (Manual) Nucleated RBC % Seg Neutrophils # Man Lymphocytes # (Manual) Monocytes # (Manual) Eosinophils # (Manual) Percent Retic PT INR D-Dimer POC ABG pH 7.274 L POC ABG pCO2 59.7 H POC ABG pO2 58 L Sodium 147 H Potassium Chloride 107.6 H Carbon Dioxide BUN 31 H Creatinine 1.7 H Glucose 118 H POC Glucose 142 H Lactic Acid Calcium Ferritin Total Bilirubin Lactate Dehydrogenase Total Creatine Kinase CK-MB (CK-2) C-Reactive Protein NT-Pro-B Natriuret Pep Total Protein Albumin Triglycerides Urine WBC (Auto) Urine Creatinine Urine Total Protein Vancomycin Trough Random Vancomycin Crossmatch 10/03/16 10/03/16 10/03/16 15:54 15:54 16:58 WBC RBC Hgb Hct MCV MCH RDW Plt Count Seg Neuts % (Manual) Lymphocytes % (Manual) Monocytes % (Manual) Eosinophils % (Manual) Nucleated RBC % Seg Neutrophils # Man Lymphocytes # (Manual) Monocytes # (Manual) Eosinophils # (Manual) Percent Retic PT INR D-Dimer POC ABG pH POC ABG pCO2 POC ABG pO2 Sodium Potassium Chloride Carbon Dioxide BUN Creatinine Glucose POC Glucose 138 H Lactic Acid Calcium Ferritin Total Bilirubin Lactate Dehydrogenase Total Creatine Kinase CK-MB (CK-2) C-Reactive Protein NT-Pro-B Natriuret Pep Total Protein Albumin Triglycerides Urine WBC (Auto) 21.0 H Urine Creatinine 63.2 H Urine Total Protein 67 H Vancomycin Trough Random Vancomycin Crossmatch 10/03/16 10/03/16 10/04/16 21:37 23:44 04:00 WBC 30.3 H RBC 2.86 L Hgb 7.3 L Hct 22.6 L MCV MCH 25 L RDW 19.6 H Plt Count 125 L Seg Neuts % (Manual) Lymphocytes % (Manual) 12.0 L Monocytes % (Manual) Eosinophils % (Manual) 5.0 H Nucleated RBC % 30.0 H Seg Neutrophils # Man 12.7 H Lymphocytes # (Manual) Monocytes # (Manual) 1.2 H Eosinophils # (Manual) 1.5 H Percent Retic PT INR D-Dimer POC ABG pH 7.271 L POC ABG pCO2 61.7 H POC ABG pO2 77 L Sodium Potassium Chloride Carbon Dioxide BUN Creatinine Glucose POC Glucose 130 H Lactic Acid Calcium Ferritin Total Bilirubin Lactate Dehydrogenase Total Creatine Kinase CK-MB (CK-2) C-Reactive Protein NT-Pro-B Natriuret Pep Total Protein Albumin Triglycerides Urine WBC (Auto) Urine Creatinine Urine Total Protein Vancomycin Trough Random Vancomycin Crossmatch 10/04/16 10/04/16 10/04/16 04:03 06:02 12:29 WBC RBC Hgb Hct MCV MCH RDW Plt Count Seg Neuts % (Manual) Lymphocytes % (Manual) Monocytes % (Manual) Eosinophils % (Manual) Nucleated RBC % Seg Neutrophils # Man Lymphocytes # (Manual) Monocytes # (Manual) Eosinophils # (Manual) Percent Retic PT INR D-Dimer POC ABG pH 7.248 L POC ABG pCO2 62.3 H POC ABG pO2 59 L Sodium Potassium Chloride Carbon Dioxide BUN 40 H Creatinine 1.7 H Glucose 110 H POC Glucose 123 H Lactic Acid Calcium Ferritin Total Bilirubin Lactate Dehydrogenase Total Creatine Kinase CK-MB (CK-2) C-Reactive Protein NT-Pro-B Natriuret Pep Total Protein 5.6 L Albumin 2.1 L Triglycerides Urine WBC (Auto) Urine Creatinine Urine Total Protein Vancomycin Trough Random Vancomycin Crossmatch 10/04/16 10/04/16 10/04/16 12:39 15:14 17:45 WBC RBC Hgb Hct MCV MCH RDW Plt Count Seg Neuts % (Manual) Lymphocytes % (Manual) Monocytes % (Manual) Eosinophils % (Manual) Nucleated RBC % Seg Neutrophils # Man Lymphocytes # (Manual) Monocytes # (Manual) Eosinophils # (Manual) Percent Retic PT INR D-Dimer POC ABG pH POC ABG pCO2 POC ABG pO2 109 H Sodium Potassium Chloride Carbon Dioxide BUN Creatinine Glucose POC Glucose 124 H Lactic Acid Calcium Ferritin Total Bilirubin Lactate Dehydrogenase Total Creatine Kinase CK-MB (CK-2) C-Reactive Protein NT-Pro-B Natriuret Pep Total Protein Albumin Triglycerides Urine WBC (Auto) Urine Creatinine Urine Total Protein Vancomycin Trough 45.5 H Random Vancomycin Crossmatch 10/04/16 10/04/16 10/05/16 20:13 23:05 01:27 WBC 36.1 H RBC 2.99 L Hgb 7.3 L Hct 23.5 L MCV MCH 25 L RDW 19.6 H Plt Count Seg Neuts % (Manual) Lymphocytes % (Manual) Monocytes % (Manual) Eosinophils % (Manual) Nucleated RBC % Seg Neutrophils # Man Lymphocytes # (Manual) Monocytes # (Manual) Eosinophils # (Manual) Percent Retic PT INR D-Dimer POC ABG pH 7.341 L POC ABG pCO2 POC ABG pO2 47 L Sodium Potassium Chloride Carbon Dioxide BUN Creatinine Glucose POC Glucose 127 H Lactic Acid Calcium Ferritin Total Bilirubin Lactate Dehydrogenase Total Creatine Kinase CK-MB (CK-2) C-Reactive Protein NT-Pro-B Natriuret Pep Total Protein Albumin Triglycerides Urine WBC (Auto) Urine Creatinine Urine Total Protein Vancomycin Trough Random Vancomycin Crossmatch 10/05/16 10/05/16 10/05/16 01:27 03:50 05:00 WBC RBC Hgb Hct MCV MCH RDW Plt Count Seg Neuts % (Manual) Lymphocytes % (Manual) Monocytes % (Manual) Eosinophils % (Manual) Nucleated RBC % Seg Neutrophils # Man Lymphocytes # (Manual) Monocytes # (Manual) Eosinophils # (Manual) Percent Retic PT INR D-Dimer POC ABG pH 7.330 L POC ABG pCO2 45.3 H POC ABG pO2 53 L Sodium Potassium Chloride Carbon Dioxide BUN 49 H Creatinine 1.6 H Glucose 112 H POC Glucose Lactic Acid Calcium Ferritin Total Bilirubin Lactate Dehydrogenase Total Creatine Kinase CK-MB (CK-2) C-Reactive Protein NT-Pro-B Natriuret Pep Total Protein Albumin Triglycerides Urine WBC (Auto) Urine Creatinine Urine Total Protein Vancomycin Trough Random Vancomycin 43.6 H Crossmatch 10/05/16 10/05/16 10/05/16 05:30 12:08 14:00 WBC RBC Hgb Hct MCV MCH RDW Plt Count Seg Neuts % (Manual) Lymphocytes % (Manual) Monocytes % (Manual) Eosinophils % (Manual) Nucleated RBC % Seg Neutrophils # Man Lymphocytes # (Manual) Monocytes # (Manual) Eosinophils # (Manual) Percent Retic PT INR D-Dimer POC ABG pH POC ABG pCO2 POC ABG pO2 Sodium Potassium Chloride Carbon Dioxide BUN Creatinine Glucose POC Glucose 141 H 149 H Lactic Acid Calcium Ferritin Total Bilirubin Lactate Dehydrogenase Total Creatine Kinase CK-MB (CK-2) C-Reactive Protein 28.40 H NT-Pro-B Natriuret Pep Total Protein Albumin Triglycerides Urine WBC (Auto) Urine Creatinine Urine Total Protein Vancomycin Trough Random Vancomycin Crossmatch 10/05/16 10/05/16 10/05/16 15:37 16:41 17:15 WBC RBC Hgb Hct MCV MCH RDW Plt Count Seg Neuts % (Manual) Lymphocytes % (Manual) Monocytes % (Manual) Eosinophils % (Manual) Nucleated RBC % Seg Neutrophils # Man Lymphocytes # (Manual) Monocytes # (Manual) Eosinophils # (Manual) Percent Retic PT INR D-Dimer POC ABG pH 7.157 L 7.133 L POC ABG pCO2 75.0 H 80.5 H POC ABG pO2 76 L Sodium Potassium Chloride Carbon Dioxide BUN Creatinine Glucose POC Glucose 151 H Lactic Acid Calcium Ferritin Total Bilirubin Lactate Dehydrogenase Total Creatine Kinase CK-MB (CK-2) C-Reactive Protein NT-Pro-B Natriuret Pep Total Protein Albumin Triglycerides Urine WBC (Auto) Urine Creatinine Urine Total Protein Vancomycin Trough Random Vancomycin Crossmatch 10/05/16 10/05/16 10/06/16 19:58 23:50 03:57 WBC 45.3 H* RBC 3.08 L Hgb 7.5 L Hct 24.5 L MCV MCH 25 L RDW 20.1 H Plt Count Seg Neuts % (Manual) 24.0 L Lymphocytes % (Manual) 10.0 L Monocytes % (Manual) Eosinophils % (Manual) Nucleated RBC % 36.0 H Seg Neutrophils # Man 10.9 H Lymphocytes # (Manual) Monocytes # (Manual) 3.2 H Eosinophils # (Manual) 0.5 H Percent Retic PT INR D-Dimer POC ABG pH 7.198 L POC ABG pCO2 69.5 H POC ABG pO2 Sodium Potassium Chloride Carbon Dioxide BUN Creatinine Glucose POC Glucose 160 H Lactic Acid Calcium Ferritin Total Bilirubin Lactate Dehydrogenase Total Creatine Kinase CK-MB (CK-2) C-Reactive Protein NT-Pro-B Natriuret Pep Total Protein Albumin Triglycerides Urine WBC (Auto) Urine Creatinine Urine Total Protein Vancomycin Trough Random Vancomycin Crossmatch 10/06/16 10/06/16 10/06/16 03:57 05:38 06:08 WBC RBC Hgb Hct MCV MCH RDW Plt Count Seg Neuts % (Manual) Lymphocytes % (Manual) Monocytes % (Manual) Eosinophils % (Manual) Nucleated RBC % Seg Neutrophils # Man Lymphocytes # (Manual) Monocytes # (Manual) Eosinophils # (Manual) Percent Retic PT INR D-Dimer POC ABG pH 7.226 L POC ABG pCO2 63.3 H POC ABG pO2 Sodium 152 H D Potassium Chloride 114.1 H Carbon Dioxide BUN 58 H Creatinine 1.6 H Glucose 123 H POC Glucose 129 H Lactic Acid Calcium Ferritin Total Bilirubin Lactate Dehydrogenase Total Creatine Kinase CK-MB (CK-2) C-Reactive Protein NT-Pro-B Natriuret Pep Total Protein Albumin Triglycerides Urine WBC (Auto) Urine Creatinine Urine Total Protein Vancomycin Trough Random Vancomycin Crossmatch 10/06/16 10/06/16 10/06/16 11:38 14:31 18:10 WBC RBC Hgb Hct MCV MCH RDW Plt Count Seg Neuts % (Manual) Lymphocytes % (Manual) Monocytes % (Manual) Eosinophils % (Manual) Nucleated RBC % Seg Neutrophils # Man Lymphocytes # (Manual) Monocytes # (Manual) Eosinophils # (Manual) Percent Retic PT INR D-Dimer POC ABG pH 7.345 L POC ABG pCO2 49.5 H POC ABG pO2 60 L Sodium Potassium Chloride Carbon Dioxide BUN Creatinine Glucose POC Glucose 126 H 196 H Lactic Acid Calcium Ferritin Total Bilirubin Lactate Dehydrogenase Total Creatine Kinase CK-MB (CK-2) C-Reactive Protein NT-Pro-B Natriuret Pep Total Protein Albumin Triglycerides Urine WBC (Auto) Urine Creatinine Urine Total Protein Vancomycin Trough Random Vancomycin Crossmatch 10/06/16 10/07/16 10/07/16 21:07 00:55 00:55 WBC 55.1 H* RBC 3.06 L Hgb 7.5 L Hct 24.4 L MCV MCH 24 L RDW 20.7 H Plt Count Seg Neuts % (Manual) Lymphocytes % (Manual) 8.0 L Monocytes % (Manual) 9.0 H Eosinophils % (Manual) Nucleated RBC % 30.0 H Seg Neutrophils # Man 27.0 H Lymphocytes # (Manual) Monocytes # (Manual) 5.0 H Eosinophils # (Manual) 0.6 H Percent Retic PT INR D-Dimer POC ABG pH 7.317 L POC ABG pCO2 55.2 H POC ABG pO2 59 L Sodium 148 H Potassium Chloride 110.2 H Carbon Dioxide BUN 56 H Creatinine 1.7 H Glucose 211 H POC Glucose Lactic Acid Calcium Ferritin Total Bilirubin Lactate Dehydrogenase Total Creatine Kinase CK-MB (CK-2) C-Reactive Protein NT-Pro-B Natriuret Pep Total Protein Albumin Triglycerides Urine WBC (Auto) Urine Creatinine Urine Total Protein Vancomycin Trough Random Vancomycin Crossmatch 10/07/16 10/07/16 10/07/16 01:01 05:20 06:31 WBC RBC Hgb Hct MCV MCH RDW Plt Count Seg Neuts % (Manual) Lymphocytes % (Manual) Monocytes % (Manual) Eosinophils % (Manual) Nucleated RBC % Seg Neutrophils # Man Lymphocytes # (Manual) Monocytes # (Manual) Eosinophils # (Manual) Percent Retic PT INR D-Dimer POC ABG pH 7.310 L POC ABG pCO2 55.6 H POC ABG pO2 65 L Sodium Potassium Chloride Carbon Dioxide BUN Creatinine Glucose POC Glucose 249 H 235 H Lactic Acid Calcium Ferritin Total Bilirubin Lactate Dehydrogenase Total Creatine Kinase CK-MB (CK-2) C-Reactive Protein NT-Pro-B Natriuret Pep Total Protein Albumin Triglycerides Urine WBC (Auto) Urine Creatinine Urine Total Protein Vancomycin Trough Random Vancomycin Crossmatch 10/07/16 10/07/16 10/07/16 12:00 18:04 23:48 WBC RBC Hgb Hct MCV MCH RDW Plt Count Seg Neuts % (Manual) Lymphocytes % (Manual) Monocytes % (Manual) Eosinophils % (Manual) Nucleated RBC % Seg Neutrophils # Man Lymphocytes # (Manual) Monocytes # (Manual) Eosinophils # (Manual) Percent Retic PT INR D-Dimer POC ABG pH POC ABG pCO2 POC ABG pO2 Sodium Potassium Chloride Carbon Dioxide BUN Creatinine Glucose POC Glucose 210 H 201 H 163 H Lactic Acid Calcium Ferritin Total Bilirubin Lactate Dehydrogenase Total Creatine Kinase CK-MB (CK-2) C-Reactive Protein NT-Pro-B Natriuret Pep Total Protein Albumin Triglycerides Urine WBC (Auto) Urine Creatinine Urine Total Protein Vancomycin Trough Random Vancomycin Crossmatch 10/08/16 10/08/16 10/08/16 04:00 04:00 04:10 WBC 58.0 H* RBC 2.95 L Hgb 7.3 L Hct 23.4 L MCV MCH 25 L RDW 20.8 H Plt Count Seg Neuts % (Manual) 75.0 H Lymphocytes % (Manual) 11.0 L Monocytes % (Manual) 8.0 H Eosinophils % (Manual) Nucleated RBC % 30.0 H Seg Neutrophils # Man 43.5 H Lymphocytes # (Manual) 6.4 H Monocytes # (Manual) 4.6 H Eosinophils # (Manual) 0.6 H Percent Retic PT INR D-Dimer POC ABG pH POC ABG pCO2 POC ABG pO2 Sodium 152 H Potassium Chloride 111.4 H Carbon Dioxide BUN 59 H Creatinine 1.6 H Glucose 190 H POC Glucose 214 H Lactic Acid Calcium Ferritin Total Bilirubin Lactate Dehydrogenase Total Creatine Kinase CK-MB (CK-2) C-Reactive Protein NT-Pro-B Natriuret Pep Total Protein Albumin Triglycerides Urine WBC (Auto) Urine Creatinine Urine Total Protein Vancomycin Trough Random Vancomycin Crossmatch 10/08/16 10/08/16 10/08/16 04:46 12:11 18:35 WBC RBC Hgb Hct MCV MCH RDW Plt Count Seg Neuts % (Manual) Lymphocytes % (Manual) Monocytes % (Manual) Eosinophils % (Manual) Nucleated RBC % Seg Neutrophils # Man Lymphocytes # (Manual) Monocytes # (Manual) Eosinophils # (Manual) Percent Retic PT INR D-Dimer POC ABG pH POC ABG pCO2 POC ABG pO2 65 L Sodium Potassium Chloride Carbon Dioxide BUN Creatinine Glucose POC Glucose 199 H 187 H Lactic Acid Calcium Ferritin Total Bilirubin Lactate Dehydrogenase Total Creatine Kinase CK-MB (CK-2) C-Reactive Protein NT-Pro-B Natriuret Pep Total Protein Albumin Triglycerides Urine WBC (Auto) Urine Creatinine Urine Total Protein Vancomycin Trough Random Vancomycin Crossmatch 10/08/16 10/09/16 10/09/16 23:38 04:43 05:38 WBC RBC Hgb Hct MCV MCH RDW Plt Count Seg Neuts % (Manual) Lymphocytes % (Manual) Monocytes % (Manual) Eosinophils % (Manual) Nucleated RBC % Seg Neutrophils # Man Lymphocytes # (Manual) Monocytes # (Manual) Eosinophils # (Manual) Percent Retic PT INR D-Dimer POC ABG pH POC ABG pCO2 45.4 H POC ABG pO2 52 L Sodium Potassium Chloride Carbon Dioxide BUN Creatinine Glucose POC Glucose 202 H 182 H Lactic Acid Calcium Ferritin Total Bilirubin Lactate Dehydrogenase Total Creatine Kinase CK-MB (CK-2) C-Reactive Protein NT-Pro-B Natriuret Pep Total Protein Albumin Triglycerides Urine WBC (Auto) Urine Creatinine Urine Total Protein Vancomycin Trough Random Vancomycin Crossmatch 10/09/16 10/09/1610/09/17 07:40 07:40 10:00 WBC 37.3 H RBC 2.55 L Hgb 6.4 L Hct 20.7 L MCV MCH 25 L RDW 20.6 H Plt Count Seg Neuts % (Manual) Lymphocytes % (Manual) Monocytes % (Manual) Eosinophils % (Manual) Nucleated RBC % Seg Neutrophils # Man Lymphocytes # (Manual) Monocytes # (Manual) Eosinophils # (Manual) Percent Retic PT INR D-Dimer POC ABG pH POC ABG pCO2 POC ABG pO2 Sodium 153 H Potassium 3.3 L Chloride 112.7 H Carbon Dioxide BUN 62 H Creatinine 1.7 H Glucose 146 H POC Glucose Lactic Acid Calcium Ferritin Total Bilirubin Lactate Dehydrogenase Total Creatine Kinase CK-MB (CK-2) C-Reactive Protein NT-Pro-B Natriuret Pep Total Protein Albumin Triglycerides Urine WBC (Auto) Urine Creatinine Urine Total Protein Vancomycin Trough Random Vancomycin Crossmatch See Detail 10/09/16 10/09/16 10/10/16 12:06 17:08 00:01 WBC RBC Hgb Hct MCV MCH RDW Plt Count Seg Neuts % (Manual) Lymphocytes % (Manual) Monocytes % (Manual) Eosinophils % (Manual) Nucleated RBC % Seg Neutrophils # Man Lymphocytes # (Manual) Monocytes # (Manual) Eosinophils # (Manual) Percent Retic PT INR D-Dimer POC ABG pH POC ABG pCO2 POC ABG pO2 Sodium Potassium Chloride Carbon Dioxide BUN Creatinine Glucose POC Glucose 214 H 152 H 189 H Lactic Acid Calcium Ferritin Total Bilirubin Lactate Dehydrogenase Total Creatine Kinase CK-MB (CK-2) C-Reactive Protein NT-Pro-B Natriuret Pep Total Protein Albumin Triglycerides Urine WBC (Auto) Urine Creatinine Urine Total Protein Vancomycin Trough Random Vancomycin Crossmatch 10/10/16 10/10/16 10/10/16 04:25 05:28 06:00 WBC RBC Hgb Hct MCV MCH RDW Plt Count Seg Neuts % (Manual) Lymphocytes % (Manual) Monocytes % (Manual) Eosinophils % (Manual) Nucleated RBC % Seg Neutrophils # Man Lymphocytes # (Manual) Monocytes # (Manual) Eosinophils # (Manual) Percent Retic PT INR D-Dimer POC ABG pH POC ABG pCO2 58.3 H POC ABG pO2 68 L Sodium Potassium Chloride Carbon Dioxide BUN Creatinine Glucose POC Glucose 155 H Lactic Acid Calcium Ferritin Total Bilirubin Lactate Dehydrogenase Total Creatine Kinase CK-MB (CK-2) C-Reactive Protein NT-Pro-B Natriuret Pep Total Protein Albumin Triglycerides 407 H Urine WBC (Auto) Urine Creatinine Urine Total Protein Vancomycin Trough Random Vancomycin Crossmatch 10/10/16 10/10/16 10/10/16 06:00 06:00 06:00 WBC 38.5 H RBC 3.57 L Hgb 9.3 L Hct 30.1 L D MCV MCH 26 L RDW 22.0 H Plt Count 464 H Seg Neuts % (Manual) 81.0 H Lymphocytes % (Manual) 9.0 L Monocytes % (Manual) Eosinophils % (Manual) Nucleated RBC % 84.0 H Seg Neutrophils # Man 31.2 H Lymphocytes # (Manual) Monocytes # (Manual) Eosinophils # (Manual) 1.2 H Percent Retic PT INR D-Dimer POC ABG pH POC ABG pCO2 POC ABG pO2 Sodium 153 H Potassium Chloride 108.3 H Carbon Dioxide 31 H BUN 62 H Creatinine 1.5 H Glucose 160 H POC Glucose Lactic Acid Calcium Ferritin 782.0 H Total Bilirubin Lactate Dehydrogenase Total Creatine Kinase CK-MB (CK-2) C-Reactive Protein NT-Pro-B Natriuret Pep Total Protein Albumin Triglycerides Urine WBC (Auto) Urine Creatinine Urine Total Protein Vancomycin Trough Random Vancomycin Crossmatch 10/10/16 10/10/16 10/10/16 11:29 13:03 17:38 WBC RBC Hgb Hct MCV MCH RDW Plt Count Seg Neuts % (Manual) Lymphocytes % (Manual) Monocytes % (Manual) Eosinophils % (Manual) Nucleated RBC % Seg Neutrophils # Man Lymphocytes # (Manual) Monocytes # (Manual) Eosinophils # (Manual) Percent Retic PT 17.6 H INR 1.45 H D-Dimer POC ABG pH POC ABG pCO2 POC ABG pO2 Sodium Potassium Chloride Carbon Dioxide BUN Creatinine Glucose POC Glucose 177 H 173 H Lactic Acid Calcium Ferritin Total Bilirubin Lactate Dehydrogenase Total Creatine Kinase CK-MB (CK-2) C-Reactive Protein NT-Pro-B Natriuret Pep Total Protein Albumin Triglycerides Urine WBC (Auto) Urine Creatinine Urine Total Protein Vancomycin Trough Random Vancomycin Crossmatch 10/11/16 10/11/16 10/11/16 00:04 05:35 06:01 WBC RBC Hgb Hct MCV MCH RDW Plt Count Seg Neuts % (Manual) Lymphocytes % (Manual) Monocytes % (Manual) Eosinophils % (Manual) Nucleated RBC % Seg Neutrophils # Man Lymphocytes # (Manual) Monocytes # (Manual) Eosinophils # (Manual) Percent Retic PT INR D-Dimer POC ABG pH POC ABG pCO2 56.6 H POC ABG pO2 63 L Sodium Potassium Chloride Carbon Dioxide BUN Creatinine Glucose POC Glucose 155 H 231 H Lactic Acid Calcium Ferritin Total Bilirubin Lactate Dehydrogenase Total Creatine Kinase CK-MB (CK-2) C-Reactive Protein NT-Pro-B Natriuret Pep Total Protein Albumin Triglycerides Urine WBC (Auto) Urine Creatinine Urine Total Protein Vancomycin Trough Random Vancomycin Crossmatch 10/11/16 11:43 WBC RBC Hgb Hct MCV MCH RDW Plt Count Seg Neuts % (Manual) Lymphocytes % (Manual) Monocytes % (Manual) Eosinophils % (Manual) Nucleated RBC % Seg Neutrophils # Man Lymphocytes # (Manual) Monocytes # (Manual) Eosinophils # (Manual) Percent Retic PT INR D-Dimer POC ABG pH POC ABG pCO2 POC ABG pO2 Sodium Potassium Chloride Carbon Dioxide BUN Creatinine Glucose POC Glucose 185 H Lactic Acid Calcium Ferritin Total Bilirubin Lactate Dehydrogenase Total Creatine Kinase CK-MB (CK-2) C-Reactive Protein NT-Pro-B Natriuret Pep Total Protein Albumin Triglycerides Urine WBC (Auto) Urine Creatinine Urine Total Protein Vancomycin Trough Random Vancomycin Crossmatch Chest x-ray: image reviewed Allied health notes reviewed: RT
[2016-10-11 14:03] LABS: BUN/Creatinine Ratio 35.62; Calcium 8.2 mg/dL (8.4-10.2); Chloride 97.1 mmol/L (98-107); Potassium 3.6 mmol/L (3.6-5.0)
[2016-10-11 14:28] LABS: Basophils % (Manual) 0 % (0.0-1.8); Blastocytes % (Manual) 0 %
[2016-10-11 14:29] LABS: ISTAT Base Excess 10; ISTAT PCO2 71.4 (35-45); ISTAT PH 7.311 (7.35-7.45); ISTAT PO2 59 (80-105); ISTAT SO2 86; ISTAT TCO2 38
[2016-10-11 14:29] LABS: Anisocytosis 2+; White Blood Count 31.8 K/mm3 (4.5-11.0)
[2016-10-11 14:30] LABS: Giant Platelets Rare; Large Platelets Few; Macrocytosis 1+; Polychromasia 2+
[2016-10-11 14:38] LABS: Diff Status Complete; Platelet Estimate Cons
--- NOTE | 2016-10-11 14:44 | Progress Note ---
Assessment and Plan Assessment and plan: The patient is a 41-year-old female with a history of sickle cell disease who was admitted for total hip arthroplasty for avascular necrosis of the left hip. She had left total hip arthroplasty on 09/25/2016 and developed acute hypoxemic respiratory failure following the POD 2 likely from ARDS and ultimately required intubation on 09/27/2016. Her hemoglobin level dropped from 8.1-6.9 on 09/30/2016, also noted to have hypokalemia with potassium level 3.1. Hospitalist service consulted for medical management. Patient remained in a I intubated with mechanical ventilation. Her white count continued to trend up. Maintained on sepsis protocol, CT scan of abdomen and pelvis and thorax done without contrast to identify the source for infection. CT scan of the chest was suggestive for possible pneumonia. She is currently on broad- spectrum antibiotics, critically ill with poor prognosis. Acute hypoxic respiratory failure -has required mechanical vent for > 96 hours - likely due to ARDS with PNA, intubated on 09/27/16 - on mechanical ventilation, she is so critically ill that she does not meet criteria for weaning -consider tracheostomy for prison weaning when patient is more stable - pulmonary following, cont nebulizer, vent support, has completed antibiotics - wean off as tolerated -Pulmonary input appreciated, patient for bronchoscopy with BAL When clinically more stable Sepsis syndrome - Likely from pneumonia - Spiking temp intermittently, wbc count continue to increased Patient has completed a 7 day course of antibiotics for treatment of sepsis/ pneumonia, ID input appreciated, abx dc Severe anemia - History of thalassemia major - has received multiple prbc transfusion, for exchange transfusion today, and received exchange transfusion on 10/10/16 - hematology following - Avscular necrosis of the left hip - s/p total left hip arthoplasty on 09/25/16 Hypokalemia -Status post replacement, continue to replete as needed Hypernatremia -Continue free water via gastric tube CARLYN - likely from sepsis syndrome and ATN - monitor renal function - nephrology following, diuretic doses have been reduced, renal function currently stable Leukocytosis Most likely leukemoid reaction, improving, hematology input appreciated, flow cytometry has been ordered by the law firm partner Prognosis remains guarded; Critical care time 32 minutes NOK Son: Jordan Love [phone] Son: Gino [facility]: [phone] Daughter: Varun Love [phone] Dispo: LTACH History Interval history: patient remains intubated, sedated, failed weaning trials , gets agitated whenever sedation is held Hospitalist Physical - Physical exam Narrative exam: General: Intubated sedated HEENT: MMM, EOMI cardiac: S1-S2 heard lungs: Rhonchorous ventilated breath sounds abdomen: soft, nontender, nondistended bowel sounds positive extremities: no edema clubbing or cyanosis Skin: no rash or lesion Neuro: Intubated sedated - Constitutional Vitals: Temp Pulse Resp BP Pulse Ox 99.6 F 120 H 13 130/89 91 10/11/16 12:00 10/11/16 14:21 10/11/16 14:11 10/11/16 14:11 10/11/16 14:21 General appearance: Present: severe distress, well-nourished Results - Labs CBC & Chem 7: 10/11/16 12:54 10/11/16 12:54 Labs: Laboratory Last Values WBC 31.8 K/mm3 (4.5-11.0) H 10/11/16 12:54 RBC 4.30 M/mm3 (3.65-5.03) 10/11/16 12:54 Hgb 12.2 gm/dl (10.1-14.3) 10/11/16 12:54 Hct 37.7 % (30.3-42.9) D 10/11/16 12:54 MCV 88 fl (79-97) D 10/11/16 12:54 MCH 28 pg (28-32) 10/11/16 12:54 MCHC 32 % (30-34) 10/11/16 12:54 RDW 17.8 % (13.2-15.2) H 10/11/16 12:54 Plt Count 175 K/mm3 (140-440) 10/11/16 12:54 Lymph % (Auto) 33.3 % (13.4-35.0) 09/20/16 10:35 [place] % (Auto) 5.8 % (0.0-7.3) 09/20/16 10:35 Eos % (Auto) 2.5 % (0.0-4.3) 09/20/16 10:35 Baso % (Auto) 0.7 % (0.0-1.8) 09/20/16 10:35 Lymph # Salary Manager 10/11/16 12:54 [place] # 0.7 K/mm3 (0.0-0.8) 09/20/16 10:35 Eos # 0.3 K/mm3 (0.0-0.4) 09/20/16 10:35 Baso # 0.1 K/mm3 (0.0-0.1) 09/20/16 10:35 Add Manual Diff Complete 10/11/16 12:54 Total Counted 100 10/11/16 12:54 Seg Neutrophils % 57.7 % (40.0-70.0) 09/20/16 10:35 Seg Neuts % (Manual) 84.0 % (40.0-70.0) H 10/11/16 12:54 Band Neutrophils % 0 % 10/11/16 12:54 Lymphocytes % (Manual) 9.0 % (13.4-35.0) L 10/11/16 12:54 Reactive Lymphs % (Man) 0 % 10/11/16 12:54 Monocytes % (Manual) 5.0 % (0.0-7.3) 10/11/16 12:54 Eosinophils % (Manual) 1.0 % (0.0-4.3) 10/11/16 12:54 Basophils % (Manual) 0 % (0.0-1.8) 10/11/16 12:54 Metamyelocytes % 1.0 % 10/11/16 12:54 Myelocytes % 0 % 10/11/16 12:54 Promyelocytes % 0 % 10/11/16 12:54 Blast Cells % 0 % 10/11/16 12:54 Nucleated RBC % 28.0 % (0.0-0.9) H 10/11/16 12:54 Seg Neutrophils # 6.7 K/mm3 (1.8-7.7) 09/20/16 10:35 Seg Neutrophils # Man 27.1 K/mm3 (1.8-7.7) H 10/11/16 12:54 Band Neutrophils # 0.0 K/mm3 10/11/16 12:54 Lymphocytes # (Manual) 2.9 K/mm3 (1.2-5.4) 10/11/16 12:54 Abs React Lymphs (Man) 0.0 K/mm3 10/11/16 12:54 Monocytes # (Manual) 1.6 K/mm3 (0.0-0.8) H 10/11/16 12:54 Eosinophils # (Manual) 0.3 K/mm3 (0.0-0.4) 10/11/16 12:54 Basophils # (Manual) 0.0 K/mm3 (0.0-0.1) 10/11/16 12:54 Metamyelocytes # 0.3 K/mm3 10/11/16 12:54 Myelocytes # 0.0 K/mm3 10/11/16 12:54 Promyelocytes # 0.0 K/mm3 10/11/16 12:54 Blast Cells # 0.0 K/mm3 10/11/16 12:54 Pathologist Review 10/10/16 06:00 WBC Morphology Not Reportable 10/11/16 12:54 Hypersegmented Neuts Not Reportable 10/11/16 12:54 Hyposegmented Neuts Not Reportable 10/11/16 12:54 Hypogranular Neuts Not Reportable 10/11/16 12:54 Smudge Cells Not Reportable 10/11/16 12:54 Toxic Granulation Not Reportable 10/11/16 12:54 Toxic Vacuolation Not Reportable 10/11/16 12:54 Dohle Bodies Not Reportable 10/11/16 12:54 Pelger-Huet Anomaly Not Reportable 10/11/16 12:54 Jaspreet Rods Not Reportable 10/11/16 12:54 Platelet Estimate Cons 10/11/16 12:54 Clumped Platelets Not Reportable 10/11/16 12:54 Plt Clumps, EDTA Not Reportable 10/11/16 12:54 Large Platelets Few 10/11/16 12:54 Giant Platelets Rare 10/11/16 12:54 Platelet Satelliting Not Reportable 10/11/16 12:54 Plt Morphology Comment Not Reportable 10/11/16 12:54 RBC Morphology Not Reportable 10/11/16 12:54 Dimorphic RBCs Not Reportable 10/11/16 12:54 Polychromasia 2+ 10/11/16 12:54 Hypochromasia Not Reportable 10/11/16 12:54 Poikilocytosis Not Reportable 10/11/16 12:54 Basophilic Stippling Few 10/10/16 06:00 Anisocytosis 2+ 10/11/16 12:54 Microcytosis Not Reportable 10/11/16 12:54 Macrocytosis 1+ 10/11/16 12:54 Spherocytes Not Reportable 10/11/16 12:54 Pappenheimer Bodies Not Reportable 10/11/16 12:54 Sickle Cells Not Reportable 10/11/16 12:54 Target Cells Not Reportable 10/11/16 12:54 Tear Drop Cells Not Reportable 10/11/16 12:54 Ovalocytes Not Reportable 10/11/16 12:54 Helmet Cells Not Reportable 10/11/16 12:54 Villatoro-Krupp Bodies Not Reportable 10/11/16 12:54 [place] Rings Not Reportable 10/11/16 12:54 [place] Cells Not Reportable 10/11/16 12:54 Bite Cells Not Reportable 10/11/16 12:54 Crenated Cell Not Reportable 10/11/16 12:54 Elliptocytes Not Reportable 10/11/16 12:54 Acanthocytes (Spur) Not Reportable 10/11/16 12:54 Rouleaux Not Reportable 10/11/16 12:54 Hemoglobin C Crystals Not Reportable 10/11/16 12:54 Schistocytes Not Reportable 10/11/16 12:54 Malaria parasites Not Reportable 10/11/16 12:54 Percent Retic 8.11 % (0.78-2.58) H 09/27/16 22:47 Jeffrey Bodies Not Reportable 10/11/16 12:54 Hem Pathologist Commnt No 10/11/16 12:54 PT 17.6 Sec. (12.2-14.9) H 10/10/16 13:03 INR 1.45 (0.87-1.13) H 10/10/16 13:03 APTT 31.1 Sec. (24.2-36.6) 09/20/16 10:35 D-Dimer 4758.12 ng/mlDDU (0-234) H 09/27/16 22:47 POC ABG pH 7.311 (7.35-7.45) L 10/11/16 14:10 POC ABG pCO2 71.4 (35-45) H 10/11/16 14:10 POC ABG pO2 59 (80-105) L 10/11/16 14:10 POC ABG HCO3 36.0 10/11/16 14:10 POC ABG Total CO2 38 10/11/16 14:10 POC ABG O2 Sat 86 10/11/16 14:10 POC ABG Base Excess 10 10/11/16 14:10 FiO2 50 % 10/11/16 14:10 Sodium 141 mmol/L (137-145) D 10/11/16 12:54 Potassium 3.6 mmol/L (3.6-5.0) 10/11/16 12:54 Chloride 97.1 mmol/L (98-107) L 10/11/16 12:54 Carbon Dioxide 30 mmol/L (22-30) 10/11/16 12:54 Anion Gap 18 mmol/L 10/11/16 12:54 BUN 57 mg/dL (7-17) H 10/11/16 12:54 Creatinine 1.6 mg/dL (0.7-1.2) H 10/11/16 12:54 Estimated GFR 43 ml/min 10/11/16 12:54 BUN/Creatinine Ratio 35.62 % 10/11/16 12:54 Glucose 369 mg/dL (65-100) H 10/11/16 12:54 POC Glucose 185 (70-105) H 10/11/16 11:43 Osmolality 311 Mosm/kg 10/04/16 04:03 Lactic Acid 1.00 mmol/L (0.7-2.0) 10/05/16 14:00 Calcium 8.2 mg/dL (8.4-10.2) L 10/11/16 12:54 Phosphorus 3.60 mg/dL (2.5-4.5) 10/04/16 04:03 Ferritin 782.0 ng/mL (13.0-400.0) H 10/10/16 06:00 Total Bilirubin 1.20 mg/dL (0.1-1.2) 10/04/16 04:03 AST 31 units/L (5-40) 10/04/16 04:03 ALT 33 units/L (7-56) 10/04/16 04:03 Alkaline Phosphatase 100 units/L (35-129) 10/04/16 04:03 Lactate Dehydrogenase 829 units/L (91-180) H 09/27/16 22:47 Total Creatine Kinase 3575 units/L (30-135) H 09/27/16 14:40 CK-MB (CK-2) 11.0 ng/mL (0.0-4.0) H 09/27/16 14:40 CK-MB (CK-2) Rel Index 0.3 (0-4) 09/27/16 14:40 Troponin T < 0.010 ng/mL (0.00-0.029) 09/27/16 14:40 C-Reactive Protein 28.40 mg/dL (0.00-1.30) H 10/05/16 14:00 NT-Pro-B Natriuret Pep 2018 pg/mL (0-450) H 09/30/16 14:05 Total Protein 5.6 g/dL (6.3-8.2) L 10/04/16 04:03 Albumin 2.1 g/dL (3.9-5) L 10/04/16 04:03 Albumin/Globulin Ratio 0.6 % 10/04/16 04:03 Triglycerides 407 mg/dL (2-149) H 10/10/16 06:00 Urine Color Yellow (Yellow) 10/03/16 15:54 Urine Turbidity Cloudy (Clear) 10/03/16 15:54 Urine pH 5.0 (5.0-7.0) 10/03/16 15:54 Ur Specific [place] 1.013 (1.003-1.030) 10/03/16 15:54 Urine Protein 30 mg/dl mg/dL (Negative) 10/03/16 15:54 Urine Glucose (UA) Neg mg/dL (Negative) 10/03/16 15:54 Urine Ketones Neg mg/dL (Negative) 10/03/16 15:54 Urine Blood Lg (Negative) 10/03/16 15:54 Urine Nitrite Neg (Negative) 10/03/16 15:54 Urine Bilirubin Neg (Negative) 10/03/16 15:54 Urine Urobilinogen < 2.0 mg/dL (<2.0) 10/03/16 15:54 Ur Leukocyte Esterase Tr (Negative) 10/03/16 15:54 Urine WBC (Auto) 21.0 /HPF (0.0-6.0) H 10/03/16 15:54 Urine RBC (Auto) 65.0 /HPF (0.0-6.0) 10/03/16 15:54 U Epithel Cells (Auto) 2.0 /HPF (0-13.0) 10/03/16 15:54 Urine Bacteria (Auto) 3+ /HPF (Negative) 10/03/16 15:54 Amorphous Crystals 1+ 10/03/16 15:54 Urine Mucus Few /HPF 10/03/16 15:54 Urine Creatinine 63.2 mg/dL (0.1-20.0) H 10/03/16 15:54 Urine Sodium 20 mEq/L 10/03/16 15:54 Urine Total Protein 67 mg/dL (5-11.8) H 10/03/16 15:54 Vancomycin Trough 45.5 ug/mL (5.0-20.0) H 10/04/16 12:39 Random Vancomycin 14.9 ug/mL (0-40.0) 10/07/16 05:25 Blood Type O POSITIVE 10/09/16 10:00 Antibody Screen TNR 10/01/16 00:55 DEACON Antibody Screen Negative 10/09/16 10:00 Crossmatch See Detail 10/09/16 10:00
--- NOTE | 2016-10-11 14:47 | Event Note ---
Date: 10/11/16 41-year-old, with total hip arthroplasty, berta are removed today. Her primary problem at this time is renal and pulmonary. Continue with rehabilitation program, weightbearing as tolerated when medically she can tolerate and stable. Advice that she be transferred to pulmonary, hospitalist service for continued medical management, orthopedic standpoint I' ll see her back in 4-6 weeks. Patient is to follow up in office upon discharge.
[2016-10-11 22:29] LABS: ISTAT Base Excess 11; ISTAT HCO3 38.1; ISTAT PCO2 88.4 (35-45); ISTAT PH 7.242 (7.35-7.45); ISTAT PO2 57 (80-105); ISTAT SO2 82; ISTAT TCO2 41
--- NOTE | 2016-10-11 23:16 | Consultation ---
History of Present Illness - Reason for Consult Consult date: 10/11/16 - History of Present Illness Patient seen/examined, labs reviewed.It appears that she may be waking up more. Past History Past Medical History: anemia (sickle cell anemia) Social history: no significant social history Family history: no significant family history Medications and Allergies Allergies Allergy/AdvReac Type Severity Reaction Status Date / Time No Known Allergies Allergy Unverified 10/13/13 13:21 Home Medications Medication Instructions Recorded Confirmed Last Taken Type Folic Acid [Folvite] 1 mg PO QDAY 10/13/13 09/18/16 09/18/16 History oxyCODONE /ACETAMINOPHEN [Percocet 1 tab PO Q6HR PRN #10 tablet 10/13/1309/18/16 Rx 5/325 mg] Promethazine [Phenergan] 25 mg PO Q6H PRN 08/16/14 09/18/16 09/18/16 History valACYclovir [Valtrex] 500 mg PO DAILY 08/16/14 09/18/16 09/18/16 History Active Meds: Active Medications Acetaminophen (Tylenol) 650 mg PO Q4H PRN PRN Reason: Pain MILD(1-3)/Fever >100.5/PALACIOS Last Admin: 10/07/16 18:13 Dose: 650 mg Albuterol/Ipratropium (Duoneb 0.5 Mg-3 Mg/3 Ml Soln) 1 ampul IH Q6HRT [facility] Last Admin: 10/11/16 20:30 Dose: 1 ampul Lipase/Protease/Amylase (Pancrejacinto Dr 10,500 Unit) 1 each FEEDTUBE PRN PRN PRN Reason: For Clogged Feeding Tube Arformoterol Tartrate (Brovana Nebu) 15 mcg IH Q12HRT SADAF Last Admin: 10/11/16 20:30 Dose: 15 mcg Aspirin (Aspirin) 325 mg PO QDAY [facility] Last Admin: 10/11/16 10:16 Dose: 325 mg Budesonide (Pulmicort) 0.5 mg IH Q12HRT SADAF Last Admin: 10/11/16 20:30 Dose: 0.5 mg Diphenhydramine HCl (Benadryl) 12.5 mg IV Q4H PRN PRN Reason: Itching Last Admin: 09/30/16 07:02 Dose: 12.5 mg Enoxaparin Sodium (Lovenox) 40 mg SUB-Q QDAY [facility] Last Admin: 10/11/16 10:17 Dose: 40 mg Famotidine (Pepcid) 20 mg PO BID [facility] Last Admin: 10/11/16 21:53 Dose: 20 mg Folic Acid (Folvite) 1 mg PO QDAY [facility] Last Admin: 10/11/16 10:16 Dose: 1 mg Furosemide (Lasix) 20 mg IV DAILY [facility] Hydrophilic Ointment (Vaseline Lip Therapy) 1 applic TP Q2HR PRN PRN Reason: Dry Lips Fentanyl Citrate (Fentanyl Drip Premix) 2,000 mcg in 100 mls @ 4.649 mls/hr IV TITR SADAF; 1 MCG/KG/HR PRN Reason: Protocol Last Admin: 10/11/16 10:36 Dose: 2 mcg/kg/hr, 9.299 mls/hr Midazolam HCl 100 mg/ Sodium (Chloride) 100 mls @ 2 mls/hr IV TITR SADAF; 2 MG/HR PRN Reason: Protocol Last Admin: 10/04/16 12:54 Dose: 2 mg/hr, 2 mls/hr Metronidazole (Flagyl 500 Mg/100 Ml) 500 mg in 100 mls @ 100 mls/hr IV Q8HR [facility] Last Admin: 10/11/16 21:53 Dose: 100 mls/hr Dextrose (D5w) 1,000 mls @ 50 mls/hr IV DIRECT [facility] Last Admin: 10/11/16 12:00 Dose: 50 mls/hr Insulin Human Regular (Novolin R) 0 units SUB-Q Q6HR SADAF PRN Reason: Protocol Last Admin: 10/11/16 18:13 Dose: 2 units Multi-Ingred Cream/Lotion/Oil/Oint (Artificial Tears Ophth Oint) 1 applic OU Q4HR PRN PRN Reason: Dry Eye(s) Multivitamins (Theragran Tab) 1 each PO QDAY [facility] Last Admin: 10/11/16 10:23 Dose: 1 each Ondansetron HCl (Zofran) 4 mg IV Q8H PRN PRN Reason: Nausea And Vomiting Last Admin: 09/29/16 23:07 Dose: 4 mg Promethazine HCl (Phenergan) 25 mg MT Q6H PRN PRN Reason: Nausea And Vomiting Last Admin: 09/25/16 22:05 Dose: 25 mg Senna (Senokot) 17.2 mg PO DAILY [facility] Last Admin: 10/11/16 10:16 Dose: 17.2 mg Simple Syrup (Simple Syrup) 15 ml FEEDTUBE PRN PRN PRN Reason: Hypoglycemia Simple Syrup (Simple Syrup) 30 ml FEEDTUBE PRN PRN PRN Reason: Hypoglycemia Sodium Bicarbonate (Sodium Bicarbonate) 325 mg FEEDTUBE PRN PRN PRN Reason: For Clogged Feeding Tube Sodium Chloride (Sodium Chloride Flush Syringe 10 Ml) 10 ml IV PRN PRN PRN Reason: LINE FLUSH Tramadol HCl (Ultram) 50 mg PO Q4H PRN PRN Reason: Pain, Moderate (4-6) Last Admin: 10/06/16 21:54 Dose: 50 mg Valacyclovir HCl (Valtrex) 500 mg PO DAILY [facility] Last Admin: 10/11/16 10:16 Dose: 500 mg Zolpidem Tartrate (Ambien) 5 mg PO QHS PRN PRN Reason: Sleep Review of Systems Breasts: deferred Respiratory: other (Still on vent.) Exam - Constitutional Vitals: Temp Pulse Resp BP Pulse Ox 100.4 F H 109 H 14 122/67 92 10/11/16 19:00 10/11/16 21:41 10/11/16 21:41 10/11/16 21:41 10/11/16 21:41 General appearance: Present: severe distress, well-nourished - EENT Eyes: Present: PERRL ENT: hearing intact, clear oral mucosa - Neck Neck: Present: supple, normal ROM - Respiratory Respiratory: bilateral: other (on the vent.) - Cardiovascular Heart Sounds: Present: S1 & S2. Absent: rub, click - Extremities Extremities: pulses symmetrical, No edema Peripheral Pulses: within normal limits - Abdominal General gastrointestinal: Present: soft, non-tender, non-distended, normal bowel sounds Female genitourinary: Present: deferred - Rectal Rectal Exam: deferred - Integumentary Integumentary: Present: clear, warm, dry - Musculoskeletal Musculoskeletal: gait normal, strength equal bilaterally - Psychiatric Psychiatric: appropriate mood/affect, intact judgment & insight - Neurologic Neurologic: CNII-XII intact, moves all extremities Results - Labs CBC & Chem 7: 10/11/16 12:54 10/11/16 12:54 Labs: Abnormal lab results 10/09/16 10/10/16 10/11/16 Range/Units 10:00 13:03 00:04 WBC (4.5-11.0) K/mm3 RDW (13.2-15.2) % Seg Neuts % (Manual) (40.0-70.0) % Lymphocytes % (Manual) (13.4-35.0) % Nucleated RBC % (0.0-0.9) % Seg Neutrophils # Man (1.8-7.7) K/mm3 Abs Lymphs (Manual) 3936 H (850-3900) cells/uL Monocytes # (Manual) (0.0-0.8) K/mm3 POC ABG pH (7.35-7.45) POC ABG pCO2 (35-45) POC ABG pO2 (80-105) Chloride (98-107) mmol/L BUN (7-17) mg/dL Creatinine (0.7-1.2) mg/dL Glucose (65-100) mg/dL POC Glucose 155 H (70-105) Calcium (8.4-10.2) mg/dL C-Reactive Protein (0.00-1.30) mg/dL Absolute CD4 Count 2178 H (490-1740) cells/uL Absolute CD19 Count 824 H (110-660) cells/uL Crossmatch See Detail 10/11/16 10/11/16 10/11/16 Range/Units 05:35 06:01 11:43 WBC (4.5-11.0) K/mm3 RDW (13.2-15.2) % Seg Neuts % (Manual) (40.0-70.0) % Lymphocytes % (Manual) (13.4-35.0) % Nucleated RBC % (0.0-0.9) % Seg Neutrophils # Man (1.8-7.7) K/mm3 Abs Lymphs (Manual) (850-3900) cells/uL Monocytes # (Manual) (0.0-0.8) K/mm3 POC ABG pH (7.35-7.45) POC ABG pCO2 56.6 H (35-45) POC ABG pO2 63 L (80-105) Chloride (98-107) mmol/L BUN (7-17) mg/dL Creatinine (0.7-1.2) mg/dL Glucose (65-100) mg/dL POC Glucose 231 H 185 H (70-105) Calcium (8.4-10.2) mg/dL C-Reactive Protein (0.00-1.30) mg/dL Absolute CD4 Count (490-1740) cells/uL Absolute CD19 Count (110-660) cells/uL Crossmatch 10/11/16 10/11/16 10/11/16 Range/Units 12:54 12:54 14:10 WBC 31.8 H (4.5-11.0) K/mm3 RDW 17.8 H (13.2-15.2) % Seg Neuts % (Manual) 84.0 H (40.0-70.0) % Lymphocytes % (Manual) 9.0 L (13.4-35.0) % Nucleated RBC % 28.0 H (0.0-0.9) % Seg Neutrophils # Man 27.1 H (1.8-7.7) K/mm3 Abs Lymphs (Manual) (850-3900) cells/uL Monocytes # (Manual) 1.6 H (0.0-0.8) K/mm3 POC ABG pH 7.311 L (7.35-7.45) POC ABG pCO2 71.4 H (35-45) POC ABG pO2 59 L (80-105) Chloride 97.1 L (98-107) mmol/L BUN 57 H (7-17) mg/dL Creatinine 1.6 H (0.7-1.2) mg/dL Glucose 369 H (65-100) mg/dL POC Glucose (70-105) Calcium 8.2 L (8.4-10.2) mg/dL C-Reactive Protein (0.00-1.30) mg/dL Absolute CD4 Count (490-1740) cells/uL Absolute CD19 Count (110-660) cells/uL Crossmatch 10/11/16 10/11/16 10/11/16 Range/Units 18:02 20:57 21:23 WBC (4.5-11.0) K/mm3 RDW (13.2-15.2) % Seg Neuts % (Manual) (40.0-70.0) % Lymphocytes % (Manual) (13.4-35.0) % Nucleated RBC % (0.0-0.9) % Seg Neutrophils # Man (1.8-7.7) K/mm3 Abs Lymphs (Manual) (850-3900) cells/uL Monocytes # (Manual) (0.0-0.8) K/mm3 POC ABG pH 7.242 L (7.35-7.45) POC ABG pCO2 88.4 H (35-45) POC ABG pO2 57 L (80-105) Chloride (98-107) mmol/L BUN (7-17) mg/dL Creatinine (0.7-1.2) mg/dL Glucose (65-100) mg/dL POC Glucose 206 H (70-105) Calcium (8.4-10.2) mg/dL C-Reactive Protein 3.00 H (0.00-1.30) mg/dL Absolute CD4 Count (490-1740) cells/uL Absolute CD19 Count (110-660) cells/uL Crossmatch Assessment and Plan - Patient Problems (1) Sepsis Current Visit: Yes Status: Acute Qualifiers: Sepsis type: sepsis due to unspecified organism Qualified Code(s): A41.9 - Sepsis, unspecified organism Plan to address problem: SEE w/up in the notes. No improvement so far. worsening sepsis. Slight improvement (2) Sleep apnea syndrome Current Visit: Yes Status: Acute Qualifiers: Sleep apnea type: S Plan to address problem: oxygen/BIPAP management. Patient now in full resp failure, and on the vent. (3) UTI (urinary tract infection) Current Visit: Yes Status: Acute Qualifiers: Urinary tract infection type: U Hematuria presence: H Indwelling urinary catheter type: I Encounter type: E Plan to address problem: patient already on abx iv. may need culture sent. culture no growth. (4) Anemia Current Visit: Yes Status: Acute Qualifiers: Anemia type: A Iron deficiency anemia type: I Vitamin B12 deficiency anemia type: V Folate deficiency anemia type: F Bone marrow failure anemia type: B Hemolytic anemia type: H Other causes of anemia: O Plan to address problem: will transfuse if hgb 7.5 or less. no new issues at this time. May transfuse if further drop. (5) Leukocytosis Current Visit: Yes Status: Acute Qualifiers: Leukocytosis type: L Plan to address problem: will order flow, and try leukophoresis. instead, exchange transfusion is done today. improving.
[2016-10-12] MEDS: DUONEB 0.5 MG-3 MG/3 ML SOLN IH SCH ×4 (01:20→20:08)
[2016-10-12] MEDS: FLAGYL 500 MG/100 ML 500 MG/100 ML BAG IV SCH ×3 (06:00→22:34)
[2016-10-12 07:31] LABS: BUN/Creatinine Ratio 38.75; Calcium 8.6 mg/dL (8.4-10.2); Chloride 104.6 mmol/L (98-107); Phosphorous 4.9 mg/dL (2.5-4.5); Potassium 4.4 mmol/L (3.6-5.0)
[2016-10-12 07:40] LABS: ISTAT Base Excess 13; ISTAT HCO3 39.5; ISTAT PCO2 82.4 (35-45); ISTAT PH 7.289 (7.35-7.45); ISTAT PO2 65 (80-105); ISTAT SO2 88; ISTAT TCO2 42
[2016-10-12] MEDS: BROVANA NEBU IH SCH ×2 (08:03→20:08)
[2016-10-12] MEDS: PULMICORT IH SCH ×2 (08:03→20:08)
[2016-10-12 08:07] LABS: Hematocrit 37.3 % (30.3-42.9); Hemoglobin 11.8 gm/dl (10.1-14.3); Mean Corpuscular HGB Conc 32 % (30-34); Mean Corpuscular Hemoglobin 28 pg (28-32); Mean Corpuscular Volume 89 fl (79-97); Platelet Count 198 K/mm3 (140-440); Red Blood Count 4.17 M/mm3 (3.65-5.03)
[2016-10-12 08:23] LABS: Eosinophils % (Auto) 0.3 % (0.0-4.3)
[2016-10-12] MEDS: FOLVITE PO SCH (09:25)
[2016-10-12] MEDS: PEPCID PO SCH ×2 (09:25→22:36)
[2016-10-12] MEDS: SENOKOT PO SCH (09:25)
[2016-10-12] MEDS: LASIX IV SCH (09:26)
[2016-10-12] MEDS: LOVENOX SUB-Q SCH (09:26)
[2016-10-12] MEDS: THERAGRAN Tab PO SCH (09:26)
[2016-10-12] MEDS: VALTREX PO SCH (09:27)
[2016-10-12] MEDS: ASPIRIN PO SCH (10:00)
--- NOTE | 2016-10-12 10:04 | Progress Note ---
Assessment and Plan .Patient is on APRV. Patient still having slight increased work of breathing.Patient sedated. Not responding to verbal stimuli.Patient is on P high 40, Plow 16, Fio2 45%. O2 satuaration 93%. I spent critical care time of 50 minutes on this patient. review the chart, examining the patient, review labs, chest xray, talking to the respiratory therapy and nursing staff and work out plan of treatment. - Patient Problems (1) Sepsis Current Visit: Yes Status: Acute Qualifiers: Sepsis type: sepsis due to unspecified organism Qualified Code(s): A41.9 - Sepsis, unspecified organism Plan to address problem: Patient is on Metranidazole and Valcyclovir. (2) Pulmonary infiltrates on CXR Current Visit: Yes Status: Acute Plan to address problem: Could be pulmonary edema related to ARDS. (3) Acute respiratory failure with hypoxia Current Visit: Yes Status: Acute Plan to address problem: Patient is on APRV.P High 40, P Low 16, FIO2 45% Albuterol/atrovent aerosol treatments q 6 hours prn. Brovanna?Budenoside aerosol treatments q 12 hours. Continue S/C Lovenox. Continue Pepcid. Repeating blood gases today. (4) Acute renal failure due to tubular necrosis Current Visit: Yes Status: Acute Plan to address problem: Management as per nephrology. Subjective Date of service: 10/12/16 Principal diagnosis: Acute Hypoxemic Respiratory Failure; ARDS Interval history: Patient is on APRV. Patient still having slight increased work of breathing.Patient sedated. Not responding to verbal stimuli.Patient is on P high 40, Plow 16, Fio2 45%. O2 satuaration 93%. Objective Vital Signs - 12hr 10/11/16 10/11/16 10/12/16 23:20 23:51 00:00 Temperature Pulse Rate 109 H 108 H 110 H Pulse Rate [ Anterior Bilateral Throughout] Respiratory 13 14 Rate Respiratory Rate [Anterior Bilateral Throughout] Blood Pressure 125/83 125/77 123/72 O2 Sat by Pulse 93 92 94 Oximetry 10/12/16 10/12/16 10/12/16 00:11 00:21 00:30 Temperature Pulse Rate 110 H 113 H 111 H Pulse Rate [ Anterior Bilateral Throughout] Respiratory 16 14 20 Rate Respiratory Rate [Anterior Bilateral Throughout] Blood Pressure 123/72 123/72 113/76 O2 Sat by Pulse 93 92 93 Oximetry 10/12/16 10/12/16 10/12/16 00:41 00:51 01:00 Temperature Pulse Rate 109 H 111 H 111 H Pulse Rate [ Anterior Bilateral Throughout] Respiratory 22 16 21 Rate Respiratory Rate [Anterior Bilateral Throughout] Blood Pressure 113/76 113/76 116/77 O2 Sat by Pulse 92 92 91 Oximetry 10/12/16 10/12/16 10/12/16 01:11 01:20 01:21 Temperature Pulse Rate 109 H 110 H Pulse Rate [ 115 H Anterior Bilateral Throughout] Respiratory 16 13 Rate Respiratory 26 H Rate [Anterior Bilateral Throughout] Blood Pressure 116/77 116/77 O2 Sat by Pulse 91 98 Oximetry 10/12/16 10/12/16 10/12/16 01:30 01:41 01:51 Temperature Pulse Rate 108 H 112 H 112 H Pulse Rate [ 112 H Anterior Bilateral Throughout] Respiratory 16 14 16 Rate Respiratory 24 Rate [Anterior Bilateral Throughout] Blood Pressure 134/79 134/79 134/79 O2 Sat by Pulse 94 92 92 Oximetry 10/12/16 10/12/16 10/12/16 02:00 02:11 02:21 Temperature Pulse Rate 113 H 115 H 111 H Pulse Rate [ Anterior Bilateral Throughout] Respiratory 18 15 14 Rate Respiratory Rate [Anterior Bilateral Throughout] Blood Pressure 121/74 121/74 121/74 O2 Sat by Pulse 93 92 92 Oximetry 10/12/16 10/12/16 10/12/16 02:30 02:41 02:51 Temperature Pulse Rate 111 H 110 H 113 H Pulse Rate [ Anterior Bilateral Throughout] Respiratory 18 16 15 Rate Respiratory Rate [Anterior Bilateral Throughout] Blood Pressure 127/72 127/72 127/72 O2 Sat by Pulse 91 92 92 Oximetry 10/12/16 10/12/16 10/12/16 03:00 03:11 03:21 Temperature Pulse Rate 112 H 111 H 113 H Pulse Rate [ Anterior Bilateral Throughout] Respiratory 15 13 19 Rate Respiratory Rate [Anterior Bilateral Throughout] Blood Pressure 121/73 121/73 121/73 O2 Sat by Pulse 90 92 92 Oximetry 10/12/16 10/12/16 10/12/16 03:30 03:41 03:51 Temperature Pulse Rate 112 H 113 H 111 H Pulse Rate [ Anterior Bilateral Throughout] Respiratory 18 18 20 Rate Respiratory Rate [Anterior Bilateral Throughout] Blood Pressure 132/82 132/82 132/82 O2 Sat by Pulse 92 92 91 Oximetry 10/12/16 10/12/16 10/12/16 04:00 04:02 04:11 Temperature Pulse Rate 123 H 108 H 113 H Pulse Rate [ Anterior Bilateral Throughout] Respiratory 14 20 Rate Respiratory Rate [Anterior Bilateral Throughout] Blood Pressure 122/76 132/82 122/76 O2 Sat by Pulse 100 93 91 Oximetry 10/12/16 10/12/16 10/12/16 04:21 04:30 04:41 Temperature Pulse Rate 112 H 111 H 110 H Pulse Rate [ Anterior Bilateral Throughout] Respiratory 13 13 26 H Rate Respiratory Rate [Anterior Bilateral Throughout] Blood Pressure 122/76 122/76 O2 Sat by Pulse 92 92 93 Oximetry 10/12/16 10/12/16 10/12/16 04:51 05:00 05:11 Temperature Pulse Rate 111 H 108 H 111 H Pulse Rate [ Anterior Bilateral Throughout] Respiratory 21 23 21 Rate Respiratory Rate [Anterior Bilateral Throughout] Blood Pressure 121/77 127/76 127/76 O2 Sat by Pulse 93 93 93 Oximetry 10/12/16 10/12/16 10/12/16 05:21 05:30 05:41 Temperature Pulse Rate 111 H 110 H 110 H Pulse Rate [ Anterior Bilateral Throughout] Respiratory 18 16 21 Rate Respiratory Rate [Anterior Bilateral Throughout] Blood Pressure 127/76 126/74 126/74 O2 Sat by Pulse 94 94 94 Oximetry 10/12/16 10/12/16 10/12/16 05:51 06:00 06:11 Temperature Pulse Rate 108 H 110 H 111 H Pulse Rate [ Anterior Bilateral Throughout] Respiratory 19 18 18 Rate Respiratory Rate [Anterior Bilateral Throughout] Blood Pressure 126/74 123/78 123/78 O2 Sat by Pulse 95 92 94 Oximetry 10/12/16 10/12/16 10/12/16 06:21 06:30 06:41 Temperature Pulse Rate 108 H 109 H 107 H Pulse Rate [ Anterior Bilateral Throughout] Respiratory 13 15 21 Rate Respiratory Rate [Anterior Bilateral Throughout] Blood Pressure 123/78 117/73 117/73 O2 Sat by Pulse 94 93 94 Oximetry 10/12/16 10/12/16 10/12/16 06:51 07:00 07:11 Temperature 98.9 F Pulse Rate 109 H 110 H 109 H Pulse Rate [ Anterior Bilateral Throughout] Respiratory 19 22 22 Rate Respiratory Rate [Anterior Bilateral Throughout] Blood Pressure 117/73 130/73 130/73 O2 Sat by Pulse 94 94 94 Oximetry 10/12/16 10/12/16 10/12/16 07:21 07:30 07:41 Temperature Pulse Rate 109 H 107 H 108 H Pulse Rate [ Anterior Bilateral Throughout] Respiratory 22 14 15 Rate Respiratory Rate [Anterior Bilateral Throughout] Blood Pressure 130/73 128/69 128/69 O2 Sat by Pulse 94 94 Oximetry 10/12/16 10/12/16 10/12/16 07:51 08:00 08:11 Temperature Pulse Rate 113 H 103 H 111 H Pulse Rate [ 114 H Anterior Bilateral Throughout] Respiratory 13 23 19 Rate Respiratory 19 Rate [Anterior Bilateral Throughout] Blood Pressure 128/69 123/79 123/79 O2 Sat by Pulse 94 96 98 Oximetry 10/12/16 10/12/16 10/12/16 08:21 08:30 08:41 Temperature Pulse Rate 103 H 109 H 108 H Pulse Rate [ Anterior Bilateral Throughout] Respiratory 22 12 20 Rate Respiratory Rate [Anterior Bilateral Throughout] Blood Pressure 123/79 111/62 111/62 O2 Sat by Pulse 96 93 Oximetry 10/12/16 10/12/16 10/12/16 08:49 08:51 09:00 Temperature Pulse Rate 108 H 104 H Pulse Rate [ 110 H Anterior Bilateral Throughout] Respiratory 15 20 Rate Respiratory 20 Rate [Anterior Bilateral Throughout] Blood Pressure 111/62 103/64 O2 Sat by Pulse 95 Oximetry 10/12/16 10/12/16 10/12/16 09:11 09:21 09:30 Temperature Pulse Rate 106 H 106 H 106 H Pulse Rate [ Anterior Bilateral Throughout] Respiratory 16 17 15 Rate Respiratory Rate [Anterior Bilateral Throughout] Blood Pressure 103/64 103/64 116/65 O2 Sat by Pulse 94 95 94 Oximetry 10/12/16 09:41 Temperature Pulse Rate 104 H Pulse Rate [ Anterior Bilateral Throughout] Respiratory 18 Rate Respiratory Rate [Anterior Bilateral Throughout] Blood Pressure 116/65 O2 Sat by Pulse 95 Oximetry Constitutional: lethargic, appears uncomfortable, other (sedated) Eyes: non-icteric ENT: oropharynx moist Neck: supple, no lymphadenopathy Effort: mildly labored Ascultation: Bilateral: diminished breath sounds, rales, rhonchi Cardiovascular: regular rate and rhythm Gastrointestinal: normoactive bowel sounds, soft, non-tender, non-distended Integumentary: normal Extremities: no cyanosis, no edema, pulses normal, no ischemia or petechiae Neurologic: unable to assess Psychiatric: other (sedated now) CBC and BMP: 10/12/16 06:57 10/12/16 06:57 ABG, PT/INR, D-dimer: ABG POC ABG pH 7.289 (7.35-7.45) L 10/12/16 06:03 POC ABG pCO2 82.4 (35-45) H 10/12/16 06:03 POC ABG pO2 65 (80-105) L 10/12/16 06:03 POC ABG HCO3 39.5 10/12/16 06:03 POC ABG Total CO2 42 10/12/16 06:03 POC ABG O2 Sat 88 10/12/16 06:03 PT/INR, D-dimer PT 17.6 Sec. (12.2-14.9) H 10/10/16 13:03 INR 1.45 (0.87-1.13) H 10/10/16 13:03 D-Dimer 4758.12 ng/mlDDU (0-234) H 09/27/16 22:47 Abnormal lab findings: Abnormal Labs 09/20/16 09/20/16 09/20/16 10:35 10:35 10:35 WBC 11.7 H RBC Hgb Hct MCV 75 L MCH 24 L RDW 16.6 H Plt Count [place] # Baso # Seg Neutrophils % Seg Neuts % (Manual) Lymphocytes % (Manual) Monocytes % (Manual) Eosinophils % (Manual) Nucleated RBC % Seg Neutrophils # Seg Neutrophils # Man Abs Lymphs (Manual) Lymphocytes # (Manual) Monocytes # (Manual) Eosinophils # (Manual) Percent Retic PT INR 1.14 H D-Dimer POC ABG pH POC ABG pCO2 POC ABG pO2 Sodium Potassium Chloride Carbon Dioxide BUN Creatinine 0.5 L Glucose 115 H POC Glucose Lactic Acid Calcium Phosphorus Ferritin Total Bilirubin 2.0 H Lactate Dehydrogenase Total Creatine Kinase CK-MB (CK-2) C-Reactive Protein NT-Pro-B Natriuret Pep Total Protein Albumin Triglycerides Urine WBC (Auto) Urine Creatinine Urine Total Protein Vancomycin Trough Random Vancomycin Absolute CD4 Count Absolute CD19 Count Crossmatch 09/26/16 09/26/16 09/27/16 04:26 04:26 10:26 WBC RBC Hgb 8.9 L Hct 28.0 L MCV MCH RDW Plt Count [place] # [place] # Seg Neutrophils % Seg Neuts % (Manual) Lymphocytes % (Manual) Monocytes % (Manual) Eosinophils % (Manual) Nucleated RBC % Seg Neutrophils # Seg Neutrophils # Man Abs Lymphs (Manual) Lymphocytes # (Manual) Monocytes # (Manual) Eosinophils # (Manual) Percent Retic PT INR D-Dimer POC ABG pH 7.283 L POC ABG pCO2 45.3 H POC ABG pO2 79 L Sodium Potassium Chloride Carbon Dioxide 20 L BUN Creatinine Glucose 129 H POC Glucose Lactic Acid Calcium 7.6 L Phosphorus Ferritin Total Bilirubin Lactate Dehydrogenase Total Creatine Kinase CK-MB (CK-2) C-Reactive Protein NT-Pro-B Natriuret Pep Total Protein Albumin Triglycerides Urine WBC (Auto) Urine Creatinine Urine Total Protein Vancomycin Trough Random Vancomycin Absolute CD4 Count Absolute CD19 Count Crossmatch 09/27/16 09/27/16 09/27/16 14:40 14:40 15:14 WBC 39.3 H RBC Hgb 9.3 L Hct 28.9 L MCV 75 L MCH 24 L RDW 18.7 H Plt Count [place] # [place] # Seg Neutrophils % Seg Neuts % (Manual) 93.5 H Lymphocytes % (Manual) 5.0 L Monocytes % (Manual) Eosinophils % (Manual) Nucleated RBC % Seg Neutrophils # Seg Neutrophils # Man 36.7 H Abs Lymphs (Manual) Lymphocytes # (Manual) Monocytes # (Manual) Eosinophils # (Manual) Percent Retic PT INR D-Dimer POC ABG pH POC ABG pCO2 POC ABG pO2 Sodium Potassium Chloride Carbon Dioxide BUN Creatinine Glucose POC Glucose Lactic Acid 2.9 H* Calcium Phosphorus Ferritin Total Bilirubin Lactate Dehydrogenase Total Creatine Kinase 3575 H CK-MB (CK-2) 11.0 H C-Reactive Protein 16.10 H NT-Pro-B Natriuret Pep Total Protein Albumin Triglycerides Urine WBC (Auto) Urine Creatinine Urine Total Protein Vancomycin Trough Random Vancomycin Absolute CD4 Count Absolute CD19 Count Crossmatch 09/27/16 09/27/16 09/27/16 18:05 22:47 22:47 WBC RBC Hgb Hct MCV MCH RDW Plt Count [place] # Baso # Seg Neutrophils % Seg Neuts % (Manual) Lymphocytes % (Manual) Monocytes % (Manual) Eosinophils % (Manual) Nucleated RBC % Seg Neutrophils # Seg Neutrophils # Man Abs Lymphs (Manual) Lymphocytes # (Manual) Monocytes # (Manual) Eosinophils # (Manual) Percent Retic PT INR D-Dimer 4758.12 H POC ABG pH POC ABG pCO2 POC ABG pO2 70 L Sodium Potassium Chloride Carbon Dioxide BUN Creatinine Glucose POC Glucose Lactic Acid Calcium Phosphorus Ferritin Total Bilirubin Lactate Dehydrogenase 829 H Total Creatine Kinase CK-MB (CK-2) C-Reactive Protein NT-Pro-B Natriuret Pep Total Protein Albumin Triglycerides Urine WBC (Auto) Urine Creatinine Urine Total Protein Vancomycin Trough Random Vancomycin Absolute CD4 Count Absolute CD19 Count Crossmatch 09/27/16 09/28/16 09/28/16 22:47 09:20 10:47 WBC RBC Hgb Hct MCV MCH RDW Plt Count [place] # Baso # Seg Neutrophils % Seg Neuts % (Manual) Lymphocytes % (Manual) Monocytes % (Manual) Eosinophils % (Manual) Nucleated RBC % Seg Neutrophils # Seg Neutrophils # Man Abs Lymphs (Manual) Lymphocytes # (Manual) Monocytes # (Manual) Eosinophils # (Manual) Percent Retic 8.11 H PT INR D-Dimer POC ABG pH POC ABG pCO2 47.2 H POC ABG pO2 70 L Sodium Potassium Chloride Carbon Dioxide BUN Creatinine 0.6 L Glucose 137 H POC Glucose Lactic Acid Calcium Phosphorus Ferritin Total Bilirubin Lactate Dehydrogenase Total Creatine Kinase CK-MB (CK-2) C-Reactive Protein NT-Pro-B Natriuret Pep Total Protein Albumin Triglycerides Urine WBC (Auto) Urine Creatinine Urine Total Protein Vancomycin Trough Random Vancomycin Absolute CD4 Count Absolute CD19 Count Crossmatch 09/28/16 09/30/16 09/30/16 10:47 11:01 14:05 WBC 30.3 H RBC 3.27 L Hgb 8.1 L Hct 24.4 L MCV 75 L MCH 25 L RDW 18.9 H Plt Count [place] # Baso # Seg Neutrophils % Seg Neuts % (Manual) Lymphocytes % (Manual) 12.0 L Monocytes % (Manual) Eosinophils % (Manual) Nucleated RBC % 5.0 H Seg Neutrophils # Seg Neutrophils # Man 21.2 H Abs Lymphs (Manual) Lymphocytes # (Manual) Monocytes # (Manual) 1.8 H Eosinophils # (Manual) Percent Retic PT INR D-Dimer POC ABG pH POC ABG pCO2 48.8 H POC ABG pO2 52 L Sodium Potassium Chloride Carbon Dioxide BUN Creatinine Glucose POC Glucose Lactic Acid Calcium Phosphorus Ferritin Total Bilirubin Lactate Dehydrogenase Total Creatine Kinase CK-MB (CK-2) C-Reactive Protein NT-Pro-B Natriuret Pep 2018 H Total Protein Albumin Triglycerides Urine WBC (Auto) Urine Creatinine Urine Total Protein Vancomycin Trough Random Vancomycin Absolute CD4 Count Absolute CD19 Count Crossmatch 09/30/16 09/30/16 09/30/16 14:05 14:05 14:05 WBC 22.1 H RBC 2.76 L Hgb 6.9 L Hct 20.6 L MCV 75 L MCH 25 L RDW 18.7 H Plt Count [place] # Baso # Seg Neutrophils % Seg Neuts % (Manual) 74.0 H Lymphocytes % (Manual) 7.0 L Monocytes % (Manual) Eosinophils % (Manual) Nucleated RBC % 52.0 H Seg Neutrophils # Seg Neutrophils # Man 16.4 H Abs Lymphs (Manual) Lymphocytes # (Manual) Monocytes # (Manual) Eosinophils # (Manual) Percent Retic PT INR D-Dimer POC ABG pH POC ABG pCO2 POC ABG pO2 Sodium Potassium 3.1 L Chloride Carbon Dioxide BUN Creatinine 0.5 L Glucose 116 H POC Glucose Lactic Acid Calcium 8.2 L Phosphorus Ferritin Total Bilirubin Lactate Dehydrogenase Total Creatine Kinase CK-MB (CK-2) C-Reactive Protein 30.80 H NT-Pro-B Natriuret Pep Total Protein Albumin Triglycerides Urine WBC (Auto) Urine Creatinine Urine Total Protein Vancomycin Trough Random Vancomycin Absolute CD4 Count Absolute CD19 Count Crossmatch 09/30/16 10/01/16 10/01/16 14:33 00:55 00:55 WBC 26.1 H RBC 2.80 L Hgb 6.8 L Hct 20.8 L MCV 74 L MCH 24 L RDW 18.6 H Plt Count [place] # Baso # Seg Neutrophils % Seg Neuts % (Manual) 85.0 H Lymphocytes % (Manual) 11.0 L Monocytes % (Manual) Eosinophils % (Manual) Nucleated RBC % 21.0 H Seg Neutrophils # Seg Neutrophils # Man 22.2 H Abs Lymphs (Manual) Lymphocytes # (Manual) Monocytes # (Manual) 1.0 H Eosinophils # (Manual) Percent Retic PT INR D-Dimer POC ABG pH POC ABG pCO2 47.8 H POC ABG pO2 201 H Sodium Potassium Chloride Carbon Dioxide BUN Creatinine Glucose POC Glucose Lactic Acid Calcium Phosphorus Ferritin Total Bilirubin Lactate Dehydrogenase Total Creatine Kinase CK-MB (CK-2) C-Reactive Protein NT-Pro-B Natriuret Pep Total Protein Albumin Triglycerides Urine WBC (Auto) Urine Creatinine Urine Total Protein Vancomycin Trough Random Vancomycin Absolute CD4 Count Absolute CD19 Count Crossmatch See Detail 10/01/16 10/01/16 10/01/16 04:57 05:00 13:01 WBC RBC Hgb Hct MCV MCH RDW Plt Count [place] # Baso # Seg Neutrophils % Seg Neuts % (Manual) Lymphocytes % (Manual) Monocytes % (Manual) Eosinophils % (Manual) Nucleated RBC % Seg Neutrophils # Seg Neutrophils # Man Abs Lymphs (Manual) Lymphocytes # (Manual) Monocytes # (Manual) Eosinophils # (Manual) Percent Retic PT INR D-Dimer POC ABG pH POC ABG pCO2 58.5 H POC ABG pO2 149 H Sodium 149 H Potassium 3.0 L Chloride Carbon Dioxide BUN Creatinine Glucose POC Glucose 120 H Lactic Acid Calcium 8.3 L Phosphorus Ferritin Total Bilirubin Lactate Dehydrogenase Total Creatine Kinase CK-MB (CK-2) C-Reactive Protein NT-Pro-B Natriuret Pep Total Protein Albumin Triglycerides Urine WBC (Auto) Urine Creatinine Urine Total Protein Vancomycin Trough Random Vancomycin Absolute CD4 Count Absolute CD19 Count Crossmatch 10/01/16 10/01/16 10/01/16 15:43 17:44 23:37 WBC 27.6 H RBC 3.55 L Hgb 8.9 L Hct 27.6 L D MCV 78 L D MCH 25 L RDW 18.1 H Plt Count [place] # Baso # Seg Neutrophils % Seg Neuts % (Manual) 79.5 H Lymphocytes % (Manual) 8.0 L Monocytes % (Manual) Eosinophils % (Manual) Nucleated RBC % 65.0 H Seg Neutrophils # Seg Neutrophils # Man 21.9 H Abs Lymphs (Manual) Lymphocytes # (Manual) Monocytes # (Manual) 1.0 H Eosinophils # (Manual) Percent Retic PT INR D-Dimer POC ABG pH POC ABG pCO2 POC ABG pO2 Sodium Potassium Chloride Carbon Dioxide BUN Creatinine Glucose POC Glucose 121 H 129 H Lactic Acid Calcium Phosphorus Ferritin Total Bilirubin Lactate Dehydrogenase Total Creatine Kinase CK-MB (CK-2) C-Reactive Protein NT-Pro-B Natriuret Pep Total Protein Albumin Triglycerides Urine WBC (Auto) Urine Creatinine Urine Total Protein Vancomycin Trough Random Vancomycin Absolute CD4 Count Absolute CD19 Count Crossmatch 10/02/16 10/02/16 10/02/16 05:05 05:40 06:00 WBC 23.0 H RBC 3.30 L Hgb 8.3 L Hct 25.8 L MCV 78 L MCH 25 L RDW 18.2 H Plt Count [place] # Baso # Seg Neutrophils % Seg Neuts % (Manual) 83.5 H Lymphocytes % (Manual) 4.0 L Monocytes % (Manual) Eosinophils % (Manual) Nucleated RBC % 14.5 H Seg Neutrophils # Seg Neutrophils # Man 25.1 H Abs Lymphs (Manual) Lymphocytes # (Manual) Monocytes # (Manual) 1.7 H Eosinophils # (Manual) Percent Retic PT INR D-Dimer POC ABG pH POC ABG pCO2 50.5 H POC ABG pO2 Sodium Potassium Chloride Carbon Dioxide BUN Creatinine Glucose POC Glucose 123 H Lactic Acid Calcium Phosphorus Ferritin Total Bilirubin Lactate Dehydrogenase Total Creatine Kinase CK-MB (CK-2) C-Reactive Protein NT-Pro-B Natriuret Pep Total Protein Albumin Triglycerides Urine WBC (Auto) Urine Creatinine Urine Total Protein Vancomycin Trough Random Vancomycin Absolute CD4 Count Absolute CD19 Count Crossmatch 10/02/16 10/02/16 10/02/16 06:00 11:42 21:52 WBC RBC Hgb Hct MCV MCH RDW Plt Count [place] # Baso # Seg Neutrophils % Seg Neuts % (Manual) Lymphocytes % (Manual) Monocytes % (Manual) Eosinophils % (Manual) Nucleated RBC % Seg Neutrophils # Seg Neutrophils # Man Abs Lymphs (Manual) Lymphocytes # (Manual) Monocytes # (Manual) Eosinophils # (Manual) Percent Retic PT INR D-Dimer POC ABG pH 7.324 L POC ABG pCO2 60.5 H POC ABG pO2 74 L Sodium 150 H Potassium Chloride 108.3 H Carbon Dioxide BUN 20 H Creatinine 1.4 H D Glucose 117 H POC Glucose 135 H Lactic Acid Calcium Phosphorus Ferritin Total Bilirubin Lactate Dehydrogenase Total Creatine Kinase CK-MB (CK-2) C-Reactive Protein NT-Pro-B Natriuret Pep Total Protein Albumin Triglycerides Urine WBC (Auto) Urine Creatinine Urine Total Protein Vancomycin Trough Random Vancomycin Absolute CD4 Count Absolute CD19 Count Crossmatch 10/02/16 10/03/16 10/03/16 23:26 05:55 08:17 WBC 32.0 H RBC 3.13 L Hgb 7.9 L Hct 24.6 L MCV MCH 25 L RDW 18.9 H Plt Count 132 L [place] # Baso # Seg Neutrophils % Seg Neuts % (Manual) 75.0 H Lymphocytes % (Manual) 5.0 L Monocytes % (Manual) Eosinophils % (Manual) Nucleated RBC % 26.0 H Seg Neutrophils # Seg Neutrophils # Man 24.0 H Abs Lymphs (Manual) Lymphocytes # (Manual) Monocytes # (Manual) 1.0 H Eosinophils # (Manual) 1.0 H Percent Retic PT INR D-Dimer POC ABG pH POC ABG pCO2 POC ABG pO2 Sodium Potassium Chloride Carbon Dioxide BUN Creatinine Glucose POC Glucose 121 H 145 H Lactic Acid Calcium Phosphorus Ferritin Total Bilirubin Lactate Dehydrogenase Total Creatine Kinase CK-MB (CK-2) C-Reactive Protein NT-Pro-B Natriuret Pep Total Protein Albumin Triglycerides Urine WBC (Auto) Urine Creatinine Urine Total Protein Vancomycin Trough Random Vancomycin Absolute CD4 Count Absolute CD19 Count Crossmatch 10/03/16 10/03/16 10/03/16 08:17 09:26 11:34 WBC RBC Hgb Hct MCV MCH RDW Plt Count [place] # Baso # Seg Neutrophils % Seg Neuts % (Manual) Lymphocytes % (Manual) Monocytes % (Manual) Eosinophils % (Manual) Nucleated RBC % Seg Neutrophils # Seg Neutrophils # Man Abs Lymphs (Manual) Lymphocytes # (Manual) Monocytes # (Manual) Eosinophils # (Manual) Percent Retic PT INR D-Dimer POC ABG pH 7.274 L POC ABG pCO2 59.7 H POC ABG pO2 58 L Sodium 147 H Potassium Chloride 107.6 H Carbon Dioxide BUN 31 H Creatinine 1.7 H Glucose 118 H POC Glucose 142 H Lactic Acid Calcium Phosphorus Ferritin Total Bilirubin Lactate Dehydrogenase Total Creatine Kinase CK-MB (CK-2) C-Reactive Protein NT-Pro-B Natriuret Pep Total Protein Albumin Triglycerides Urine WBC (Auto) Urine Creatinine Urine Total Protein Vancomycin Trough Random Vancomycin Absolute CD4 Count Absolute CD19 Count Crossmatch 10/03/16 10/03/16 10/03/16 15:54 15:54 16:58 WBC RBC Hgb Hct MCV MCH RDW Plt Count [place] # Baso # Seg Neutrophils % Seg Neuts % (Manual) Lymphocytes % (Manual) Monocytes % (Manual) Eosinophils % (Manual) Nucleated RBC % Seg Neutrophils # Seg Neutrophils # Man Abs Lymphs (Manual) Lymphocytes # (Manual) Monocytes # (Manual) Eosinophils # (Manual) Percent Retic PT INR D-Dimer POC ABG pH POC ABG pCO2 POC ABG pO2 Sodium Potassium Chloride Carbon Dioxide BUN Creatinine Glucose POC Glucose 138 H Lactic Acid Calcium Phosphorus Ferritin Total Bilirubin Lactate Dehydrogenase Total Creatine Kinase CK-MB (CK-2) C-Reactive Protein NT-Pro-B Natriuret Pep Total Protein Albumin Triglycerides Urine WBC (Auto) 21.0 H Urine Creatinine 63.2 H Urine Total Protein 67 H Vancomycin Trough Random Vancomycin Absolute CD4 Count Absolute CD19 Count Crossmatch 10/03/16 10/03/16 10/04/16 21:37 23:44 04:00 WBC 30.3 H RBC 2.86 L Hgb 7.3 L Hct 22.6 L MCV MCH 25 L RDW 19.6 H Plt Count 125 L [place] # Baso # Seg Neutrophils % Seg Neuts % (Manual) Lymphocytes % (Manual) 12.0 L Monocytes % (Manual) Eosinophils % (Manual) 5.0 H Nucleated RBC % 30.0 H Seg Neutrophils # Seg Neutrophils # Man 12.7 H Abs Lymphs (Manual) Lymphocytes # (Manual) Monocytes # (Manual) 1.2 H Eosinophils # (Manual) 1.5 H Percent Retic PT INR D-Dimer POC ABG pH 7.271 L POC ABG pCO2 61.7 H POC ABG pO2 77 L Sodium Potassium Chloride Carbon Dioxide BUN Creatinine Glucose POC Glucose 130 H Lactic Acid Calcium Phosphorus Ferritin Total Bilirubin Lactate Dehydrogenase Total Creatine Kinase CK-MB (CK-2) C-Reactive Protein NT-Pro-B Natriuret Pep Total Protein Albumin Triglycerides Urine WBC (Auto) Urine Creatinine Urine Total Protein Vancomycin Trough Random Vancomycin Absolute CD4 Count Absolute CD19 Count Crossmatch 10/04/16 10/04/16 10/04/16 04:03 06:02 12:29 WBC RBC Hgb Hct MCV MCH RDW Plt Count [place] # Baso # Seg Neutrophils % Seg Neuts % (Manual) Lymphocytes % (Manual) Monocytes % (Manual) Eosinophils % (Manual) Nucleated RBC % Seg Neutrophils # Seg Neutrophils # Man Abs Lymphs (Manual) Lymphocytes # (Manual) Monocytes # (Manual) Eosinophils # (Manual) Percent Retic PT INR D-Dimer POC ABG pH 7.248 L POC ABG pCO2 62.3 H POC ABG pO2 59 L Sodium Potassium Chloride Carbon Dioxide BUN 40 H Creatinine 1.7 H Glucose 110 H POC Glucose 123 H Lactic Acid Calcium Phosphorus Ferritin Total Bilirubin Lactate Dehydrogenase Total Creatine Kinase CK-MB (CK-2) C-Reactive Protein NT-Pro-B Natriuret Pep Total Protein 5.6 L Albumin 2.1 L Triglycerides Urine WBC (Auto) Urine Creatinine Urine Total Protein Vancomycin Trough Random Vancomycin Absolute CD4 Count Absolute CD19 Count Crossmatch 10/04/16 10/04/16 10/04/16 12:39 15:14 17:45 WBC RBC Hgb Hct MCV MCH RDW Plt Count [place] # Baso # Seg Neutrophils % Seg Neuts % (Manual) Lymphocytes % (Manual) Monocytes % (Manual) Eosinophils % (Manual) Nucleated RBC % Seg Neutrophils # Seg Neutrophils # Man Abs Lymphs (Manual) Lymphocytes # (Manual) Monocytes # (Manual) Eosinophils # (Manual) Percent Retic PT INR D-Dimer POC ABG pH POC ABG pCO2 POC ABG pO2 109 H Sodium Potassium Chloride Carbon Dioxide BUN Creatinine Glucose POC Glucose 124 H Lactic Acid Calcium Phosphorus Ferritin Total Bilirubin Lactate Dehydrogenase Total Creatine Kinase CK-MB (CK-2) C-Reactive Protein NT-Pro-B Natriuret Pep Total Protein Albumin Triglycerides Urine WBC (Auto) Urine Creatinine Urine Total Protein Vancomycin Trough 45.5 H Random Vancomycin Absolute CD4 Count Absolute CD19 Count Crossmatch 10/04/16 10/04/16 10/05/16 20:13 23:05 01:27 WBC 36.1 H RBC 2.99 L Hgb 7.3 L Hct 23.5 L MCV MCH 25 L RDW 19.6 H Plt Count [place] # Baso # Seg Neutrophils % Seg Neuts % (Manual) Lymphocytes % (Manual) Monocytes % (Manual) Eosinophils % (Manual) Nucleated RBC % Seg Neutrophils # Seg Neutrophils # Man Abs Lymphs (Manual) Lymphocytes # (Manual) Monocytes # (Manual) Eosinophils # (Manual) Percent Retic PT INR D-Dimer POC ABG pH 7.341 L POC ABG pCO2 POC ABG pO2 47 L Sodium Potassium Chloride Carbon Dioxide BUN Creatinine Glucose POC Glucose 127 H Lactic Acid Calcium Phosphorus Ferritin Total Bilirubin Lactate Dehydrogenase Total Creatine Kinase CK-MB (CK-2) C-Reactive Protein NT-Pro-B Natriuret Pep Total Protein Albumin Triglycerides Urine WBC (Auto) Urine Creatinine Urine Total Protein Vancomycin Trough Random Vancomycin Absolute CD4 Count Absolute CD19 Count Crossmatch 10/05/16 10/05/16 10/05/16 01:27 03:50 05:00 WBC RBC Hgb Hct MCV MCH RDW Plt Count [place] # Baso # Seg Neutrophils % Seg Neuts % (Manual) Lymphocytes % (Manual) Monocytes % (Manual) Eosinophils % (Manual) Nucleated RBC % Seg Neutrophils # Seg Neutrophils # Man Abs Lymphs (Manual) Lymphocytes # (Manual) Monocytes # (Manual) Eosinophils # (Manual) Percent Retic PT INR D-Dimer POC ABG pH 7.330 L POC ABG pCO2 45.3 H POC ABG pO2 53 L Sodium Potassium Chloride Carbon Dioxide BUN 49 H Creatinine 1.6 H Glucose 112 H POC Glucose Lactic Acid Calcium Phosphorus Ferritin Total Bilirubin Lactate Dehydrogenase Total Creatine Kinase CK-MB (CK-2) C-Reactive Protein NT-Pro-B Natriuret Pep Total Protein Albumin Triglycerides Urine WBC (Auto) Urine Creatinine Urine Total Protein Vancomycin Trough Random Vancomycin 43.6 H Absolute CD4 Count Absolute CD19 Count Crossmatch 10/05/16 10/05/16 10/05/16 05:30 12:08 14:00 WBC RBC Hgb Hct MCV MCH RDW Plt Count [place] # Baso # Seg Neutrophils % Seg Neuts % (Manual) Lymphocytes % (Manual) Monocytes % (Manual) Eosinophils % (Manual) Nucleated RBC % Seg Neutrophils # Seg Neutrophils # Man Abs Lymphs (Manual) Lymphocytes # (Manual) Monocytes # (Manual) Eosinophils # (Manual) Percent Retic PT INR D-Dimer POC ABG pH POC ABG pCO2 POC ABG pO2 Sodium Potassium Chloride Carbon Dioxide BUN Creatinine Glucose POC Glucose 141 H 149 H Lactic Acid Calcium Phosphorus Ferritin Total Bilirubin Lactate Dehydrogenase Total Creatine Kinase CK-MB (CK-2) C-Reactive Protein 28.40 H NT-Pro-B Natriuret Pep Total Protein Albumin Triglycerides Urine WBC (Auto) Urine Creatinine Urine Total Protein Vancomycin Trough Random Vancomycin Absolute CD4 Count Absolute CD19 Count Crossmatch 10/05/16 10/05/16 10/05/16 15:37 16:41 17:15 WBC RBC Hgb Hct MCV MCH RDW Plt Count [place] # Baso # Seg Neutrophils % Seg Neuts % (Manual) Lymphocytes % (Manual) Monocytes % (Manual) Eosinophils % (Manual) Nucleated RBC % Seg Neutrophils # Seg Neutrophils # Man Abs Lymphs (Manual) Lymphocytes # (Manual) Monocytes # (Manual) Eosinophils # (Manual) Percent Retic PT INR D-Dimer POC ABG pH 7.157 L 7.133 L POC ABG pCO2 75.0 H 80.5 H POC ABG pO2 76 L Sodium Potassium Chloride Carbon Dioxide BUN Creatinine Glucose POC Glucose 151 H Lactic Acid Calcium Phosphorus Ferritin Total Bilirubin Lactate Dehydrogenase Total Creatine Kinase CK-MB (CK-2) C-Reactive Protein NT-Pro-B Natriuret Pep Total Protein Albumin Triglycerides Urine WBC (Auto) Urine Creatinine Urine Total Protein Vancomycin Trough Random Vancomycin Absolute CD4 Count Absolute CD19 Count Crossmatch 10/05/16 10/05/16 10/06/16 19:58 23:50 03:57 WBC 45.3 H* RBC 3.08 L Hgb 7.5 L Hct 24.5 L MCV MCH 25 L RDW 20.1 H Plt Count [place] # Baso # Seg Neutrophils % Seg Neuts % (Manual) 24.0 L Lymphocytes % (Manual) 10.0 L Monocytes % (Manual) Eosinophils % (Manual) Nucleated RBC % 36.0 H Seg Neutrophils # Seg Neutrophils # Man 10.9 H Abs Lymphs (Manual) Lymphocytes # (Manual) Monocytes # (Manual) 3.2 H Eosinophils # (Manual) 0.5 H Percent Retic PT INR D-Dimer POC ABG pH 7.198 L POC ABG pCO2 69.5 H POC ABG pO2 Sodium Potassium Chloride Carbon Dioxide BUN Creatinine Glucose POC Glucose 160 H Lactic Acid Calcium Phosphorus Ferritin Total Bilirubin Lactate Dehydrogenase Total Creatine Kinase CK-MB (CK-2) C-Reactive Protein NT-Pro-B Natriuret Pep Total Protein Albumin Triglycerides Urine WBC (Auto) Urine Creatinine Urine Total Protein Vancomycin Trough Random Vancomycin Absolute CD4 Count Absolute CD19 Count Crossmatch 10/06/16 10/06/16 10/06/16 03:57 05:38 06:08 WBC RBC Hgb Hct MCV MCH RDW Plt Count [place] # Baso # Seg Neutrophils % Seg Neuts % (Manual) Lymphocytes % (Manual) Monocytes % (Manual) Eosinophils % (Manual) Nucleated RBC % Seg Neutrophils # Seg Neutrophils # Man Abs Lymphs (Manual) Lymphocytes # (Manual) Monocytes # (Manual) Eosinophils # (Manual) Percent Retic PT INR D-Dimer POC ABG pH 7.226 L POC ABG pCO2 63.3 H POC ABG pO2 Sodium 152 H D Potassium Chloride 114.1 H Carbon Dioxide BUN 58 H Creatinine 1.6 H Glucose 123 H POC Glucose 129 H Lactic Acid Calcium Phosphorus Ferritin Total Bilirubin Lactate Dehydrogenase Total Creatine Kinase CK-MB (CK-2) C-Reactive Protein NT-Pro-B Natriuret Pep Total Protein Albumin Triglycerides Urine WBC (Auto) Urine Creatinine Urine Total Protein Vancomycin Trough Random Vancomycin Absolute CD4 Count Absolute CD19 Count Crossmatch 10/06/16 10/06/16 10/06/16 11:38 14:31 18:10 WBC RBC Hgb Hct MCV MCH RDW Plt Count [place] # Baso # Seg Neutrophils % Seg Neuts % (Manual) Lymphocytes % (Manual) Monocytes % (Manual) Eosinophils % (Manual) Nucleated RBC % Seg Neutrophils # Seg Neutrophils # Man Abs Lymphs (Manual) Lymphocytes # (Manual) Monocytes # (Manual) Eosinophils # (Manual) Percent Retic PT INR D-Dimer POC ABG pH 7.345 L POC ABG pCO2 49.5 H POC ABG pO2 60 L Sodium Potassium Chloride Carbon Dioxide BUN Creatinine Glucose POC Glucose 126 H 196 H Lactic Acid Calcium Phosphorus Ferritin Total Bilirubin Lactate Dehydrogenase Total Creatine Kinase CK-MB (CK-2) C-Reactive Protein NT-Pro-B Natriuret Pep Total Protein Albumin Triglycerides Urine WBC (Auto) Urine Creatinine Urine Total Protein Vancomycin Trough Random Vancomycin Absolute CD4 Count Absolute CD19 Count Crossmatch 10/06/16 10/07/16 10/07/16 21:07 00:55 00:55 WBC 55.1 H* RBC 3.06 L Hgb 7.5 L Hct 24.4 L MCV MCH 24 L RDW 20.7 H Plt Count [place] # Baso # Seg Neutrophils % Seg Neuts % (Manual) Lymphocytes % (Manual) 8.0 L Monocytes % (Manual) 9.0 H Eosinophils % (Manual) Nucleated RBC % 30.0 H Seg Neutrophils # Seg Neutrophils # Man 27.0 H Abs Lymphs (Manual) Lymphocytes # (Manual) Monocytes # (Manual) 5.0 H Eosinophils # (Manual) 0.6 H Percent Retic PT INR D-Dimer POC ABG pH 7.317 L POC ABG pCO2 55.2 H POC ABG pO2 59 L Sodium 148 H Potassium Chloride 110.2 H Carbon Dioxide BUN 56 H Creatinine 1.7 H Glucose 211 H POC Glucose Lactic Acid Calcium Phosphorus Ferritin Total Bilirubin Lactate Dehydrogenase Total Creatine Kinase CK-MB (CK-2) C-Reactive Protein NT-Pro-B Natriuret Pep Total Protein Albumin Triglycerides Urine WBC (Auto) Urine Creatinine Urine Total Protein Vancomycin Trough Random Vancomycin Absolute CD4 Count Absolute CD19 Count Crossmatch 10/07/16 10/07/16 10/07/16 01:01 05:20 06:31 WBC RBC Hgb Hct MCV MCH RDW Plt Count [place] # Baso # Seg Neutrophils % Seg Neuts % (Manual) Lymphocytes % (Manual) Monocytes % (Manual) Eosinophils % (Manual) Nucleated RBC % Seg Neutrophils # Seg Neutrophils # Man Abs Lymphs (Manual) Lymphocytes # (Manual) Monocytes # (Manual) Eosinophils # (Manual) Percent Retic PT INR D-Dimer POC ABG pH 7.310 L POC ABG pCO2 55.6 H POC ABG pO2 65 L Sodium Potassium Chloride Carbon Dioxide BUN Creatinine Glucose POC Glucose 249 H 235 H Lactic Acid Calcium Phosphorus Ferritin Total Bilirubin Lactate Dehydrogenase Total Creatine Kinase CK-MB (CK-2) C-Reactive Protein NT-Pro-B Natriuret Pep Total Protein Albumin Triglycerides Urine WBC (Auto) Urine Creatinine Urine Total Protein Vancomycin Trough Random Vancomycin Absolute CD4 Count Absolute CD19 Count Crossmatch 10/07/16 10/07/16 10/07/16 12:00 18:04 23:48 WBC RBC Hgb Hct MCV MCH RDW Plt Count [place] # Baso # Seg Neutrophils % Seg Neuts % (Manual) Lymphocytes % (Manual) Monocytes % (Manual) Eosinophils % (Manual) Nucleated RBC % Seg Neutrophils # Seg Neutrophils # Man Abs Lymphs (Manual) Lymphocytes # (Manual) Monocytes # (Manual) Eosinophils # (Manual) Percent Retic PT INR D-Dimer POC ABG pH POC ABG pCO2 POC ABG pO2 Sodium Potassium Chloride Carbon Dioxide BUN Creatinine Glucose POC Glucose 210 H 201 H 163 H Lactic Acid Calcium Phosphorus Ferritin Total Bilirubin Lactate Dehydrogenase Total Creatine Kinase CK-MB (CK-2) C-Reactive Protein NT-Pro-B Natriuret Pep Total Protein Albumin Triglycerides Urine WBC (Auto) Urine Creatinine Urine Total Protein Vancomycin Trough Random Vancomycin Absolute CD4 Count Absolute CD19 Count Crossmatch 10/08/16 10/08/16 10/08/16 04:00 04:00 04:10 WBC 58.0 H* RBC 2.95 L Hgb 7.3 L Hct 23.4 L MCV MCH 25 L RDW 20.8 H Plt Count [place] # Baso # Seg Neutrophils % Seg Neuts % (Manual) 75.0 H Lymphocytes % (Manual) 11.0 L Monocytes % (Manual) 8.0 H Eosinophils % (Manual) Nucleated RBC % 30.0 H Seg Neutrophils # Seg Neutrophils # Man 43.5 H Abs Lymphs (Manual) Lymphocytes # (Manual) 6.4 H Monocytes # (Manual) 4.6 H Eosinophils # (Manual) 0.6 H Percent Retic PT INR D-Dimer POC ABG pH POC ABG pCO2 POC ABG pO2 Sodium 152 H Potassium Chloride 111.4 H Carbon Dioxide BUN 59 H Creatinine 1.6 H Glucose 190 H POC Glucose 214 H Lactic Acid Calcium Phosphorus Ferritin Total Bilirubin Lactate Dehydrogenase Total Creatine Kinase CK-MB (CK-2) C-Reactive Protein NT-Pro-B Natriuret Pep Total Protein Albumin Triglycerides Urine WBC (Auto) Urine Creatinine Urine Total Protein Vancomycin Trough Random Vancomycin Absolute CD4 Count Absolute CD19 Count Crossmatch 10/08/16 10/08/16 10/08/16 04:46 12:11 18:35 WBC RBC Hgb Hct MCV MCH RDW Plt Count [place] # Baso # Seg Neutrophils % Seg Neuts % (Manual) Lymphocytes % (Manual) Monocytes % (Manual) Eosinophils % (Manual) Nucleated RBC % Seg Neutrophils # Seg Neutrophils # Man Abs Lymphs (Manual) Lymphocytes # (Manual) Monocytes # (Manual) Eosinophils # (Manual) Percent Retic PT INR D-Dimer POC ABG pH POC ABG pCO2 POC ABG pO2 65 L Sodium Potassium Chloride Carbon Dioxide BUN Creatinine Glucose POC Glucose 199 H 187 H Lactic Acid Calcium Phosphorus Ferritin Total Bilirubin Lactate Dehydrogenase Total Creatine Kinase CK-MB (CK-2) C-Reactive Protein NT-Pro-B Natriuret Pep Total Protein Albumin Triglycerides Urine WBC (Auto) Urine Creatinine Urine Total Protein Vancomycin Trough Random Vancomycin Absolute CD4 Count Absolute CD19 Count Crossmatch 10/08/16 10/09/16 10/09/16 23:38 04:43 05:38 WBC RBC Hgb Hct MCV MCH RDW Plt Count [place] # Baso # Seg Neutrophils % Seg Neuts % (Manual) Lymphocytes % (Manual) Monocytes % (Manual) Eosinophils % (Manual) Nucleated RBC % Seg Neutrophils # Seg Neutrophils # Man Abs Lymphs (Manual) Lymphocytes # (Manual) Monocytes # (Manual) Eosinophils # (Manual) Percent Retic PT INR D-Dimer POC ABG pH POC ABG pCO2 45.4 H POC ABG pO2 52 L Sodium Potassium Chloride Carbon Dioxide BUN Creatinine Glucose POC Glucose 202 H 182 H Lactic Acid Calcium Phosphorus Ferritin Total Bilirubin Lactate Dehydrogenase Total Creatine Kinase CK-MB (CK-2) C-Reactive Protein NT-Pro-B Natriuret Pep Total Protein Albumin Triglycerides Urine WBC (Auto) Urine Creatinine Urine Total Protein Vancomycin Trough Random Vancomycin Absolute CD4 Count Absolute CD19 Count Crossmatch 10/09/16 10/09/16 10/09/16 07:40 07:40 10:00 WBC 37.3 H RBC 2.55 L Hgb 6.4 L Hct 20.7 L MCV MCH 25 L RDW 20.6 H Plt Count [place] # Baso # Seg Neutrophils % Seg Neuts % (Manual) Lymphocytes % (Manual) Monocytes % (Manual) Eosinophils % (Manual) Nucleated RBC % Seg Neutrophils # Seg Neutrophils # Man Abs Lymphs (Manual) Lymphocytes # (Manual) Monocytes # (Manual) Eosinophils # (Manual) Percent Retic PT INR D-Dimer POC ABG pH POC ABG pCO2 POC ABG pO2 Sodium 153 H Potassium 3.3 L Chloride 112.7 H Carbon Dioxide BUN 62 H Creatinine 1.7 H Glucose 146 H POC Glucose Lactic Acid Calcium Phosphorus Ferritin Total Bilirubin Lactate Dehydrogenase Total Creatine Kinase CK-MB (CK-2) C-Reactive Protein NT-Pro-B Natriuret Pep Total Protein Albumin Triglycerides Urine WBC (Auto) Urine Creatinine Urine Total Protein Vancomycin Trough Random Vancomycin Absolute CD4 Count Absolute CD19 Count Crossmatch See Detail 10/09/16 10/09/16 10/10/16 12:06 17:08 00:01 WBC RBC Hgb Hct MCV MCH RDW Plt Count [place] # Baso # Seg Neutrophils % Seg Neuts % (Manual) Lymphocytes % (Manual) Monocytes % (Manual) Eosinophils % (Manual) Nucleated RBC % Seg Neutrophils # Seg Neutrophils # Man Abs Lymphs (Manual) Lymphocytes # (Manual) Monocytes # (Manual) Eosinophils # (Manual) Percent Retic PT INR D-Dimer POC ABG pH POC ABG pCO2 POC ABG pO2 Sodium Potassium Chloride Carbon Dioxide BUN Creatinine Glucose POC Glucose 214 H 152 H 189 H Lactic Acid Calcium Phosphorus Ferritin Total Bilirubin Lactate Dehydrogenase Total Creatine Kinase CK-MB (CK-2) C-Reactive Protein NT-Pro-B Natriuret Pep Total Protein Albumin Triglycerides Urine WBC (Auto) Urine Creatinine Urine Total Protein Vancomycin Trough Random Vancomycin Absolute CD4 Count Absolute CD19 Count Crossmatch 10/10/16 10/10/16 10/10/16 04:25 05:28 06:00 WBC RBC Hgb Hct MCV MCH RDW Plt Count [place] # Baso # Seg Neutrophils % Seg Neuts % (Manual) Lymphocytes % (Manual) Monocytes % (Manual) Eosinophils % (Manual) Nucleated RBC % Seg Neutrophils # Seg Neutrophils # Man Abs Lymphs (Manual) Lymphocytes # (Manual) Monocytes # (Manual) Eosinophils # (Manual) Percent Retic PT INR D-Dimer POC ABG pH POC ABG pCO2 58.3 H POC ABG pO2 68 L Sodium Potassium Chloride Carbon Dioxide BUN Creatinine Glucose POC Glucose 155 H Lactic Acid Calcium Phosphorus Ferritin Total Bilirubin Lactate Dehydrogenase Total Creatine Kinase CK-MB (CK-2) C-Reactive Protein NT-Pro-B Natriuret Pep Total Protein Albumin Triglycerides 407 H Urine WBC (Auto) Urine Creatinine Urine Total Protein Vancomycin Trough Random Vancomycin Absolute CD4 Count Absolute CD19 Count Crossmatch 10/10/16 10/10/16 10/10/16 06:00 06:00 06:00 WBC 38.5 H RBC 3.57 L Hgb 9.3 L Hct 30.1 L D MCV MCH 26 L RDW 22.0 H Plt Count 464 H [place] # Baso # Seg Neutrophils % Seg Neuts % (Manual) 81.0 H Lymphocytes % (Manual) 9.0 L Monocytes % (Manual) Eosinophils % (Manual) Nucleated RBC % 84.0 H Seg Neutrophils # Seg Neutrophils # Man 31.2 H Abs Lymphs (Manual) Lymphocytes # (Manual) Monocytes # (Manual) Eosinophils # (Manual) 1.2 H Percent Retic PT INR D-Dimer POC ABG pH POC ABG pCO2 POC ABG pO2 Sodium 153 H Potassium Chloride 108.3 H Carbon Dioxide 31 H BUN 62 H Creatinine 1.5 H Glucose 160 H POC Glucose Lactic Acid Calcium Phosphorus Ferritin 782.0 H Total Bilirubin Lactate Dehydrogenase Total Creatine Kinase CK-MB (CK-2) C-Reactive Protein NT-Pro-B Natriuret Pep Total Protein Albumin Triglycerides Urine WBC (Auto) Urine Creatinine Urine Total Protein Vancomycin Trough Random Vancomycin Absolute CD4 Count Absolute CD19 Count Crossmatch 10/10/16 10/10/16 10/10/16 11:29 13:03 13:03 WBC RBC Hgb Hct MCV MCH RDW Plt Count [place] # Baso # Seg Neutrophils % Seg Neuts % (Manual) Lymphocytes % (Manual) Monocytes % (Manual) Eosinophils % (Manual) Nucleated RBC % Seg Neutrophils # Seg Neutrophils # Man Abs Lymphs (Manual) 3936 H Lymphocytes # (Manual) Monocytes # (Manual) Eosinophils # (Manual) Percent Retic PT 17.6 H INR 1.45 H D-Dimer POC ABG pH POC ABG pCO2 POC ABG pO2 Sodium Potassium Chloride Carbon Dioxide BUN Creatinine Glucose POC Glucose 177 H Lactic Acid Calcium Phosphorus Ferritin Total Bilirubin Lactate Dehydrogenase Total Creatine Kinase CK-MB (CK-2) C-Reactive Protein NT-Pro-B Natriuret Pep Total Protein Albumin Triglycerides Urine WBC (Auto) Urine Creatinine Urine Total Protein Vancomycin Trough Random Vancomycin Absolute CD4 Count 2178 H Absolute CD19 Count 824 H Crossmatch 10/10/16 10/11/16 10/11/16 17:38 00:04 05:35 WBC RBC Hgb Hct MCV MCH RDW Plt Count [place] # Baso # Seg Neutrophils % Seg Neuts % (Manual) Lymphocytes % (Manual) Monocytes % (Manual) Eosinophils % (Manual) Nucleated RBC % Seg Neutrophils # Seg Neutrophils # Man Abs Lymphs (Manual) Lymphocytes # (Manual) Monocytes # (Manual) Eosinophils # (Manual) Percent Retic PT INR D-Dimer POC ABG pH POC ABG pCO2 56.6 H POC ABG pO2 63 L Sodium Potassium Chloride Carbon Dioxide BUN Creatinine Glucose POC Glucose 173 H 155 H Lactic Acid Calcium Phosphorus Ferritin Total Bilirubin Lactate Dehydrogenase Total Creatine Kinase CK-MB (CK-2) C-Reactive Protein NT-Pro-B Natriuret Pep Total Protein Albumin Triglycerides Urine WBC (Auto) Urine Creatinine Urine Total Protein Vancomycin Trough Random Vancomycin Absolute CD4 Count Absolute CD19 Count Crossmatch 10/11/16 10/11/16 10/11/16 06:01 11:43 12:54 WBC 31.8 H RBC Hgb Hct MCV MCH RDW 17.8 H Plt Count [place] # Baso # Seg Neutrophils % Seg Neuts % (Manual) 84.0 H Lymphocytes % (Manual) 9.0 L Monocytes % (Manual) Eosinophils % (Manual) Nucleated RBC % 28.0 H Seg Neutrophils # Seg Neutrophils # Man 27.1 H Abs Lymphs (Manual) Lymphocytes # (Manual) Monocytes # (Manual) 1.6 H Eosinophils # (Manual) Percent Retic PT INR D-Dimer POC ABG pH POC ABG pCO2 POC ABG pO2 Sodium Potassium Chloride Carbon Dioxide BUN Creatinine Glucose POC Glucose 231 H 185 H Lactic Acid Calcium Phosphorus Ferritin Total Bilirubin Lactate Dehydrogenase Total Creatine Kinase CK-MB (CK-2) C-Reactive Protein NT-Pro-B Natriuret Pep Total Protein Albumin Triglycerides Urine WBC (Auto) Urine Creatinine Urine Total Protein Vancomycin Trough Random Vancomycin Absolute CD4 Count Absolute CD19 Count Crossmatch 10/11/16 10/11/16 10/11/16 12:54 14:10 18:02 WBC RBC Hgb Hct MCV MCH RDW Plt Count [place] # Baso # Seg Neutrophils % Seg Neuts % (Manual) Lymphocytes % (Manual) Monocytes % (Manual) Eosinophils % (Manual) Nucleated RBC % Seg Neutrophils # Seg Neutrophils # Man Abs Lymphs (Manual) Lymphocytes # (Manual) Monocytes # (Manual) Eosinophils # (Manual) Percent Retic PT INR D-Dimer POC ABG pH 7.311 L POC ABG pCO2 71.4 H POC ABG pO2 59 L Sodium Potassium Chloride 97.1 L Carbon Dioxide BUN 57 H Creatinine 1.6 H Glucose 369 H POC Glucose 206 H Lactic Acid Calcium 8.2 L Phosphorus Ferritin Total Bilirubin Lactate Dehydrogenase Total Creatine Kinase CK-MB (CK-2) C-Reactive Protein NT-Pro-B Natriuret Pep Total Protein Albumin Triglycerides Urine WBC (Auto) Urine Creatinine Urine Total Protein Vancomycin Trough Random Vancomycin Absolute CD4 Count Absolute CD19 Count Crossmatch 10/11/16 10/11/16 10/12/16 20:57 21:23 00:43 WBC RBC Hgb Hct MCV MCH RDW Plt Count [place] # Baso # Seg Neutrophils % Seg Neuts % (Manual) Lymphocytes % (Manual) Monocytes % (Manual) Eosinophils % (Manual) Nucleated RBC % Seg Neutrophils # Seg Neutrophils # Man Abs Lymphs (Manual) Lymphocytes # (Manual) Monocytes # (Manual) Eosinophils # (Manual) Percent Retic PT INR D-Dimer POC ABG pH 7.242 L POC ABG pCO2 88.4 H POC ABG pO2 57 L Sodium Potassium Chloride Carbon Dioxide BUN Creatinine Glucose POC Glucose 212 H Lactic Acid Calcium Phosphorus Ferritin Total Bilirubin Lactate Dehydrogenase Total Creatine Kinase CK-MB (CK-2) C-Reactive Protein 3.00 H NT-Pro-B Natriuret Pep Total Protein Albumin Triglycerides Urine WBC (Auto) Urine Creatinine Urine Total Protein Vancomycin Trough Random Vancomycin Absolute CD4 Count Absolute CD19 Count Crossmatch 10/12/16 10/12/16 10/12/16 05:49 06:03 06:57 WBC 37.0 H RBC Hgb Hct MCV MCH RDW 18.0 H Plt Count [place] # 2.0 H Baso # 0.2 H Seg Neutrophils % 86.7 H Seg Neuts % (Manual) Lymphocytes % (Manual) Monocytes % (Manual) Eosinophils % (Manual) Nucleated RBC % Seg Neutrophils # 30.6 H Seg Neutrophils # Man Abs Lymphs (Manual) Lymphocytes # (Manual) Monocytes # (Manual) Eosinophils # (Manual) Percent Retic PT INR D-Dimer POC ABG pH 7.289 L POC ABG pCO2 82.4 H POC ABG pO2 65 L Sodium Potassium Chloride Carbon Dioxide BUN Creatinine Glucose POC Glucose 230 H Lactic Acid Calcium Phosphorus Ferritin Total Bilirubin Lactate Dehydrogenase Total Creatine Kinase CK-MB (CK-2) C-Reactive Protein NT-Pro-B Natriuret Pep Total Protein Albumin Triglycerides Urine WBC (Auto) Urine Creatinine Urine Total Protein Vancomycin Trough Random Vancomycin Absolute CD4 Count Absolute CD19 Count Crossmatch 10/12/16 06:57 WBC RBC Hgb Hct MCV MCH RDW Plt Count [place] # Baso # Seg Neutrophils % Seg Neuts % (Manual) Lymphocytes % (Manual) Monocytes % (Manual) Eosinophils % (Manual) Nucleated RBC % Seg Neutrophils # Seg Neutrophils # Man Abs Lymphs (Manual) Lymphocytes # (Manual) Monocytes # (Manual) Eosinophils # (Manual) Percent Retic PT INR D-Dimer POC ABG pH POC ABG pCO2 POC ABG pO2 Sodium 151 H D Potassium Chloride Carbon Dioxide 32 H BUN 62 H Creatinine 1.6 H Glucose 231 H POC Glucose Lactic Acid Calcium Phosphorus 4.90 H Ferritin Total Bilirubin Lactate Dehydrogenase Total Creatine Kinase CK-MB (CK-2) C-Reactive Protein NT-Pro-B Natriuret Pep Total Protein Albumin Triglycerides Urine WBC (Auto) Urine Creatinine Urine Total Protein Vancomycin Trough Random Vancomycin Absolute CD4 Count Absolute CD19 Count Crossmatch Allied health notes reviewed: RT
--- NOTE | 2016-10-12 11:31 | Progress Note ---
Assessment and Plan - Patient Problems (1) Avascular necrosis of bone of left hip Current Visit: Yes Status: Acute Plan to address problem: Status post Left Hip Arthroplasty on 09/25/16 (2) Acute respiratory failure with hypoxia Current Visit: Yes Status: Acute Plan to address problem: Pulmonology on board, vent management, follow up recs (3) Acute renal failure due to tubular necrosis Current Visit: Yes Status: Acute Plan to address problem: Renal function reviewed, SCr level was 1.6 today, yesterday's SCr level was 1.6 , non-oliguric Started on Lasix 20 mg IV daily Renally dose medications On D5W infusion at 50 ml/hr Obtain daily weight Strict intake and output Montes Catheter: Yes Intake= 8043 ml Output= 2350 ml (Net= 5693 ml) Renal plan discussed with Dr Forman Continue supportive therapy (4) Acute hypernatremia Current Visit: Yes Status: Acute Plan to address problem: Serum sodium level increased to 151 today, yesterday's serum sodium level was 141 Continue on D5W infusion at 50 ml/hr and free water flushes 400 ml every 4 hours via nasogastric tube Repeat serum sodium level today at 1700, will adjust renal management as needed (5) Sepsis syndrome Current Visit: Yes Status: Acute Plan to address problem: Infectious Disease on board, currently on Flagyl, follow up recs Subjective Date of service: 10/12/16 Principal diagnosis: Acute Hypoxemic Respiratory Failure; ARDS Interval history: Patient intubated, opens eyes, but doesn't follow commands. No family at bedside. Objective - Vital Signs Vital signs: Vital Signs - 12hr 10/11/16 10/12/16 10/12/16 23:51 00:00 00:11 Temperature Pulse Rate 108 H 110 H 110 H Pulse Rate [ Anterior Bilateral Throughout] Respiratory 13 14 16 Rate Respiratory Rate [Anterior Bilateral Throughout] Blood Pressure 125/77 123/72 123/72 O2 Sat by Pulse 92 94 93 Oximetry 10/12/16 10/12/16 10/12/16 00:21 00:30 00:41 Temperature Pulse Rate 113 H 111 H 109 H Pulse Rate [ Anterior Bilateral Throughout] Respiratory 14 20 22 Rate Respiratory Rate [Anterior Bilateral Throughout] Blood Pressure 123/72 113/76 113/76 O2 Sat by Pulse 92 93 92 Oximetry 10/12/16 10/12/16 10/12/16 00:51 01:00 01:11 Temperature Pulse Rate 111 H 111 H 109 H Pulse Rate [ Anterior Bilateral Throughout] Respiratory 16 21 16 Rate Respiratory Rate [Anterior Bilateral Throughout] Blood Pressure 113/76 116/77 116/77 O2 Sat by Pulse 92 91 91 Oximetry 10/12/16 10/12/16 10/12/16 01:20 01:21 01:30 Temperature Pulse Rate 110 H 108 H Pulse Rate [ 115 H 112 H Anterior Bilateral Throughout] Respiratory 13 16 Rate Respiratory 26 H 24 Rate [Anterior Bilateral Throughout] Blood Pressure 116/77 134/79 O2 Sat by Pulse 98 94 Oximetry 10/12/16 10/12/16 10/12/16 01:41 01:51 02:00 Temperature Pulse Rate 112 H 112 H 113 H Pulse Rate [ Anterior Bilateral Throughout] Respiratory 14 16 18 Rate Respiratory Rate [Anterior Bilateral Throughout] Blood Pressure 134/79 134/79 121/74 O2 Sat by Pulse 92 92 93 Oximetry 10/12/16 10/12/16 10/12/16 02:11 02:21 02:30 Temperature Pulse Rate 115 H 111 H 111 H Pulse Rate [ Anterior Bilateral Throughout] Respiratory 15 14 18 Rate Respiratory Rate [Anterior Bilateral Throughout] Blood Pressure 121/74 121/74 127/72 O2 Sat by Pulse 92 92 91 Oximetry 10/12/16 10/12/16 10/12/16 02:41 02:51 03:00 Temperature Pulse Rate 110 H 113 H 112 H Pulse Rate [ Anterior Bilateral Throughout] Respiratory 16 15 15 Rate Respiratory Rate [Anterior Bilateral Throughout] Blood Pressure 127/72 127/72 121/73 O2 Sat by Pulse 92 92 90 Oximetry 10/12/16 10/12/16 10/12/16 03:11 03:21 03:30 Temperature Pulse Rate 111 H 113 H 112 H Pulse Rate [ Anterior Bilateral Throughout] Respiratory 13 19 18 Rate Respiratory Rate [Anterior Bilateral Throughout] Blood Pressure 121/73 121/73 132/82 O2 Sat by Pulse 92 92 92 Oximetry 10/12/16 10/12/16 10/12/16 03:41 03:51 04:00 Temperature Pulse Rate 113 H 111 H 123 H Pulse Rate [ Anterior Bilateral Throughout] Respiratory 18 20 14 Rate Respiratory Rate [Anterior Bilateral Throughout] Blood Pressure 132/82 132/82 122/76 O2 Sat by Pulse 92 91 100 Oximetry 10/12/16 10/12/16 10/12/16 04:02 04:11 04:21 Temperature Pulse Rate 108 H 113 H 112 H Pulse Rate [ Anterior Bilateral Throughout] Respiratory 20 13 Rate Respiratory Rate [Anterior Bilateral Throughout] Blood Pressure 132/82 122/76 122/76 O2 Sat by Pulse 93 91 92 Oximetry 10/12/16 10/12/16 10/12/16 04:30 04:41 04:51 Temperature Pulse Rate 111 H 110 H 111 H Pulse Rate [ Anterior Bilateral Throughout] Respiratory 13 26 H 21 Rate Respiratory Rate [Anterior Bilateral Throughout] Blood Pressure 122/76 121/77 O2 Sat by Pulse 92 93 93 Oximetry 10/12/16 10/12/16 10/12/16 05:00 05:11 05:21 Temperature Pulse Rate 108 H 111 H 111 H Pulse Rate [ Anterior Bilateral Throughout] Respiratory 23 21 18 Rate Respiratory Rate [Anterior Bilateral Throughout] Blood Pressure 127/76 127/76 127/76 O2 Sat by Pulse 93 93 94 Oximetry 10/12/16 10/12/16 10/12/16 05:30 05:41 05:51 Temperature Pulse Rate 110 H 110 H 108 H Pulse Rate [ Anterior Bilateral Throughout] Respiratory 16 21 19 Rate Respiratory Rate [Anterior Bilateral Throughout] Blood Pressure 126/74 126/74 126/74 O2 Sat by Pulse 94 94 95 Oximetry 10/12/16 10/12/16 10/12/16 06:00 06:11 06:21 Temperature Pulse Rate 110 H 111 H 108 H Pulse Rate [ Anterior Bilateral Throughout] Respiratory 18 18 13 Rate Respiratory Rate [Anterior Bilateral Throughout] Blood Pressure 123/78 123/78 123/78 O2 Sat by Pulse 92 94 94 Oximetry 10/12/16 10/12/16 10/12/16 06:30 06:41 06:51 Temperature Pulse Rate 109 H 107 H 109 H Pulse Rate [ Anterior Bilateral Throughout] Respiratory 15 21 19 Rate Respiratory Rate [Anterior Bilateral Throughout] Blood Pressure 117/73 117/73 117/73 O2 Sat by Pulse 93 94 94 Oximetry 10/12/16 10/12/16 10/12/16 07:00 07:11 07:21 Temperature 98.9 F Pulse Rate 110 H 109 H 109 H Pulse Rate [ Anterior Bilateral Throughout] Respiratory 22 22 22 Rate Respiratory Rate [Anterior Bilateral Throughout] Blood Pressure 130/73 130/73 130/73 O2 Sat by Pulse 94 94 94 Oximetry 10/12/16 10/12/16 10/12/16 07:30 07:41 07:51 Temperature Pulse Rate 107 H 108 H 113 H Pulse Rate [ Anterior Bilateral Throughout] Respiratory 14 15 13 Rate Respiratory Rate [Anterior Bilateral Throughout] Blood Pressure 128/69 128/69 128/69 O2 Sat by Pulse 94 94 Oximetry 10/12/16 10/12/16 10/12/16 08:00 08:11 08:21 Temperature Pulse Rate 103 H 111 H 103 H Pulse Rate [ 114 H Anterior Bilateral Throughout] Respiratory 23 19 22 Rate Respiratory 19 Rate [Anterior Bilateral Throughout] Blood Pressure 123/79 123/79 123/79 O2 Sat by Pulse 96 98 96 Oximetry 10/12/16 10/12/16 10/12/16 08:30 08:41 08:49 Temperature Pulse Rate 109 H 108 H Pulse Rate [ 110 H Anterior Bilateral Throughout] Respiratory 12 20 Rate Respiratory 20 Rate [Anterior Bilateral Throughout] Blood Pressure 111/62 111/62 O2 Sat by Pulse 93 Oximetry 10/12/16 10/12/16 10/12/16 08:51 09:00 09:11 Temperature Pulse Rate 108 H 104 H 106 H Pulse Rate [ Anterior Bilateral Throughout] Respiratory 15 20 16 Rate Respiratory Rate [Anterior Bilateral Throughout] Blood Pressure 111/62 103/64 103/64 O2 Sat by Pulse 95 94 Oximetry 10/12/16 10/12/16 10/12/16 09:21 09:30 09:41 Temperature Pulse Rate 106 H 106 H 104 H Pulse Rate [ Anterior Bilateral Throughout] Respiratory 17 15 18 Rate Respiratory Rate [Anterior Bilateral Throughout] Blood Pressure 103/64 116/65 116/65 O2 Sat by Pulse 95 94 95 Oximetry 10/12/16 10/12/16 10/12/16 09:51 10:00 10:11 Temperature Pulse Rate 110 H 109 H 110 H Pulse Rate [ Anterior Bilateral Throughout] Respiratory 24 20 16 Rate Respiratory Rate [Anterior Bilateral Throughout] Blood Pressure 116/65 105/64 105/64 O2 Sat by Pulse 95 93 94 Oximetry - General Appearance General appearance: intubated (on ventilator, no family at bedside) EENT: ATNC Neck: no JVD Respiratory: Present: Other (Lung sounds decreased bilaterally, intubated on ventilator) Cardiology: regular, S1S2 Gastrointestinal: normoactive bowel sounds (nasogastric tube intact), other ( : Montes to gravity draining clear yellow urine) Integumentary: warm and dry (Left Hip incision with dressing in place) Neurologic: other (intubated, opens eyes, but doesn't follow commands) Musculoskeletal: other (trace edema to both lower extremities) - Lab 10/12/16 06:57 10/12/16 06:57 Most recent lab results Calcium 8.6 mg/dL (8.4-10.2) 10/12/16 06:57 Phosphorus 4.90 mg/dL (2.5-4.5) H 10/12/16 06:57 Urine Creatinine 63.2 mg/dL (0.1-20.0) H 10/03/16 15:54 Urine Sodium 20 mEq/L 10/03/16 15:54 Urine Total Protein 67 mg/dL (5-11.8) H 10/03/16 15:54
[2016-10-12] MEDS: D5W 1,000 ML IV SCH (12:01)
--- NOTE | 2016-10-12 12:31 | Progress Note ---
Assessment and Plan Assessment and plan: The patient is a 41-year-old female with a history of sickle cell disease who was admitted for total hip arthroplasty for avascular necrosis of the left hip. She had left total hip arthroplasty on 09/25/2016 and developed acute hypoxemic respiratory failure following the POD 2 likely from ARDS and ultimately required intubation on 09/27/2016. Her hemoglobin level dropped from 8.1-6.9 on 09/30/2016, also noted to have hypokalemia with potassium level 3.1. Hospitalist service consulted for medical management. Patient remained in a I intubated with mechanical ventilation. Her white count continued to trend up. Maintained on sepsis protocol, CT scan of abdomen and pelvis and thorax done without contrast to identify the source for infection. CT scan of the chest was suggestive for possible pneumonia. She is currently on broad- spectrum antibiotics, critically ill with poor prognosis. Acute hypoxic respiratory failure -has required mechanical vent for > 96 hours - likely due to ARDS with PNA, intubated on 09/27/16 - on mechanical ventilation, she is so critically ill that she does not meet criteria for weaning -consider tracheostomy for senior living weaning when patient is more stable - pulmonary following, cont nebulizer, vent support, has completed antibiotics - wean off as tolerated -Pulmonary input appreciated, patient for bronchoscopy with BAL When clinically more stable Sepsis syndrome - Likely from pneumonia - Spiking temp intermittently, wbc count continue to increased Patient has completed a 7 day course of antibiotics for treatment of sepsis/ pneumonia, ID input appreciated, abx dc Severe anemia - History of thalassemia major - has received multiple prbc transfusion, and received exchange transfusion on 10/10/16 - hematology following - Avscular necrosis of the left hip - s/p total left hip arthoplasty on 09/25/16 Hypokalemia -Status post replacement, continue to replete as needed Hypernatremia -Continue free water via gastric tube CARLYN - likely from sepsis syndrome and ATN - monitor renal function - nephrology following, diuretic doses have been reduced, renal function currently stable Leukocytosis Most likely leukemoid reaction, improving, hematology input appreciated, flow cytometry has been ordered by the systems integration analyst Prognosis remains guarded; Critical care time 32 minutes NOK Son: Jordan Love [phone] Son: Gino [facility]: [phone] Daughter: Varun Love [phone] Dispo: LTACH History Interval history: patient remains intubated, sedated, failed weaning trials , gets agitated whenever sedation is held Hospitalist Physical - Physical exam Narrative exam: General: Intubated sedated HEENT: MMM, EOMI cardiac: S1-S2 heard lungs: Rhonchorous ventilated breath sounds abdomen: soft, nontender, nondistended bowel sounds positive extremities: no edema clubbing or cyanosis Skin: no rash or lesion Neuro: Intubated, is able to close eyes when asked to do so, but is not obeying any other commands - Constitutional Vitals: Temp Pulse Resp BP Pulse Ox 99 F 110 H 21 122/73 93 10/12/16 11:00 10/12/16 12:10 10/12/16 12:10 10/12/16 12:10 10/12/16 12:10 General appearance: Present: severe distress, well-nourished Results - Labs CBC & Chem 7: 10/12/16 06:57 10/12/16 06:57 Labs: Laboratory Last Values WBC 37.0 K/mm3 (4.5-11.0) H 10/12/16 06:57 RBC 4.17 M/mm3 (3.65-5.03) 10/12/16 06:57 Hgb 11.8 gm/dl (10.1-14.3) 10/12/16 06:57 Hct 37.3 % (30.3-42.9) 10/12/16 06:57 MCV 89 fl (79-97) 10/12/16 06:57 MCH 28 pg (28-32) 10/12/16 06:57 MCHC 32 % (30-34) 10/12/16 06:57 RDW 18.0 % (13.2-15.2) H 10/12/16 06:57 Plt Count 198 K/mm3 (140-440) 10/12/16 06:57 Lymph % (Auto) 33.3 % (13.4-35.0) 09/20/16 10:35 [place] % (Auto) 5.8 % (0.0-7.3) 10/12/16 06:57 Eos % (Auto) 0.3 % (0.0-4.3) 10/12/16 06:57 Baso % (Auto) 0.7 % (0.0-1.8) 09/20/16 10:35 Lymph # Freight Delivery Driver 10/11/16 12:54 [place] # 2.0 K/mm3 (0.0-0.8) H 10/12/16 06:57 Eos # 0.1 K/mm3 (0.0-0.4) 10/12/16 06:57 Baso # 0.2 K/mm3 (0.0-0.1) H 10/12/16 06:57 Add Manual Diff Complete 10/11/16 12:54 Total Counted 100 10/11/16 12:54 Seg Neutrophils % 86.7 % (40.0-70.0) H 10/12/16 06:57 Seg Neuts % (Manual) 84.0 % (40.0-70.0) H 10/11/16 12:54 Band Neutrophils % 0 % 10/11/16 12:54 Lymphocytes % (Manual) 9.0 % (13.4-35.0) L 10/11/16 12:54 Reactive Lymphs % (Man) 0 % 10/11/16 12:54 Monocytes % (Manual) 5.0 % (0.0-7.3) 10/11/16 12:54 Eosinophils % (Manual) 1.0 % (0.0-4.3) 10/11/16 12:54 Basophils % (Manual) 0 % (0.0-1.8) 10/11/16 12:54 Metamyelocytes % 1.0 % 10/11/16 12:54 Myelocytes % 0 % 10/11/16 12:54 Promyelocytes % 0 % 10/11/16 12:54 Blast Cells % 0 % 10/11/16 12:54 Nucleated RBC % 28.0 % (0.0-0.9) H 10/11/16 12:54 Seg Neutrophils # 30.6 K/mm3 (1.8-7.7) H 10/12/16 06:57 Seg Neutrophils # Man 27.1 K/mm3 (1.8-7.7) H 10/11/16 12:54 Band Neutrophils # 0.0 K/mm3 10/11/16 12:54 Abs Lymphs (Manual) 3936 cells/uL (850-3900) H 10/10/16 13:03 Lymphocytes # (Manual) 2.9 K/mm3 (1.2-5.4) 10/11/16 12:54 Abs React Lymphs (Man) 0.0 K/mm3 10/11/16 12:54 Monocytes # (Manual) 1.6 K/mm3 (0.0-0.8) H 10/11/16 12:54 Eosinophils # (Manual) 0.3 K/mm3 (0.0-0.4) 10/11/16 12:54 Basophils # (Manual) 0.0 K/mm3 (0.0-0.1) 10/11/16 12:54 Metamyelocytes # 0.3 K/mm3 10/11/16 12:54 Myelocytes # 0.0 K/mm3 10/11/16 12:54 Promyelocytes # 0.0 K/mm3 10/11/16 12:54 Blast Cells # 0.0 K/mm3 10/11/16 12:54 Pathologist Review 10/10/16 06:00 WBC Morphology Not Reportable 10/11/16 12:54 Hypersegmented Neuts Not Reportable 10/11/16 12:54 Hyposegmented Neuts Not Reportable 10/11/16 12:54 Hypogranular Neuts Not Reportable 10/11/16 12:54 Smudge Cells Not Reportable 10/11/16 12:54 Toxic Granulation Not Reportable 10/11/16 12:54 Toxic Vacuolation Not Reportable 10/11/16 12:54 Dohle Bodies Not Reportable 10/11/16 12:54 Pelger-Huet Anomaly Not Reportable 10/11/16 12:54 Jaspreet Rods Not Reportable 10/11/16 12:54 Platelet Estimate Cons 10/11/16 12:54 Clumped Platelets Not Reportable 10/11/16 12:54 Plt Clumps, EDTA Not Reportable 10/11/16 12:54 Large Platelets Few 10/11/16 12:54 Giant Platelets Rare 10/11/16 12:54 Platelet Satelliting Not Reportable 10/11/16 12:54 Plt Morphology Comment Not Reportable 10/11/16 12:54 RBC Morphology Not Reportable 10/11/16 12:54 Dimorphic RBCs Not Reportable 10/11/16 12:54 Polychromasia 2+ 10/11/16 12:54 Hypochromasia Not Reportable 10/11/16 12:54 Poikilocytosis Not Reportable 10/11/16 12:54 Basophilic Stippling Few 10/10/16 06:00 Anisocytosis 2+ 10/11/16 12:54 Microcytosis Not Reportable 10/11/16 12:54 Macrocytosis 1+ 10/11/16 12:54 Spherocytes Not Reportable 10/11/16 12:54 Pappenheimer Bodies Not Reportable 10/11/16 12:54 Sickle Cells Not Reportable 10/11/16 12:54 Target Cells Not Reportable 10/11/16 12:54 Tear Drop Cells Not Reportable 10/11/16 12:54 Ovalocytes Not Reportable 10/11/16 12:54 Helmet Cells Not Reportable 10/11/16 12:54 [place] Bodies Not Reportable 10/11/16 12:54 [place] Rings Not Reportable 10/11/16 12:54 Mike Cells Not Reportable 10/11/16 12:54 Bite Cells Not Reportable 10/11/16 12:54 Crenated Cell Not Reportable 10/11/16 12:54 Elliptocytes Not Reportable 10/11/16 12:54 Acanthocytes (Spur) Not Reportable 10/11/16 12:54 Rouleaux Not Reportable 10/11/16 12:54 Hemoglobin C Crystals Not Reportable 10/11/16 12:54 Schistocytes Not Reportable 10/11/16 12:54 Malaria parasites Not Reportable 10/11/16 12:54 Percent Retic 8.11 % (0.78-2.58) H 09/27/16 22:47 Jeffrey Bodies Not Reportable 10/11/16 12:54 Hem Pathologist Commnt No 10/11/16 12:54 PT 17.6 Sec. (12.2-14.9) H 10/10/16 13:03 INR 1.45 (0.87-1.13) H 10/10/16 13:03 APTT 31.1 Sec. (24.2-36.6) 09/20/16 10:35 D-Dimer 4758.12 ng/mlDDU (0-234) H 09/27/16 22:47 POC ABG pH 7.289 (7.35-7.45) L 10/12/16 06:03 POC ABG pCO2 82.4 (35-45) H 10/12/16 06:03 POC ABG pO2 65 (80-105) L 10/12/16 06:03 POC ABG HCO3 39.5 10/12/16 06:03 POC ABG Total CO2 42 10/12/16 06:03 POC ABG O2 Sat 88 10/12/16 06:03 POC ABG Base Excess 13 10/12/16 06:03 FiO2 50 % 10/12/16 06:03 Sodium 151 mmol/L (137-145) H D 10/12/16 06:57 Potassium 4.4 mmol/L (3.6-5.0) D 10/12/16 06:57 Chloride 104.6 mmol/L (98-107) 10/12/16 06:57 Carbon Dioxide 32 mmol/L (22-30) H 10/12/16 06:57 Anion Gap 19 mmol/L 10/12/16 06:57 BUN 62 mg/dL (7-17) H 10/12/16 06:57 Creatinine 1.6 mg/dL (0.7-1.2) H 10/12/16 06:57 Estimated GFR 43 ml/min 10/12/16 06:57 BUN/Creatinine Ratio 38.75 % 10/12/16 06:57 Glucose 231 mg/dL (65-100) H 10/12/16 06:57 POC Glucose 230 (70-105) H 10/12/16 05:49 Osmolality 311 Mosm/kg 10/04/16 04:03 Lactic Acid 1.00 mmol/L (0.7-2.0) 10/11/16 20:57 Calcium 8.6 mg/dL (8.4-10.2) 10/12/16 06:57 Phosphorus 4.90 mg/dL (2.5-4.5) H 10/12/16 06:57 Ferritin 782.0 ng/mL (13.0-400.0) H 10/10/16 06:00 Total Bilirubin 1.20 mg/dL (0.1-1.2) 10/04/16 04:03 AST 31 units/L (5-40) 10/04/16 04:03 ALT 33 units/L (7-56) 10/04/16 04:03 Alkaline Phosphatase 100 units/L (35-129) 10/04/16 04:03 Lactate Dehydrogenase 829 units/L (91-180) H 09/27/16 22:47 Total Creatine Kinase 3575 units/L (30-135) H 09/27/16 14:40 CK-MB (CK-2) 11.0 ng/mL (0.0-4.0) H 09/27/16 14:40 CK-MB (CK-2) Rel Index 0.3 (0-4) 09/27/16 14:40 Troponin T < 0.010 ng/mL (0.00-0.029) 09/27/16 14:40 C-Reactive Protein 3.00 mg/dL (0.00-1.30) H 10/11/16 20:57 NT-Pro-B Natriuret Pep 2018 pg/mL (0-450) H 09/30/16 14:05 Total Protein 5.6 g/dL (6.3-8.2) L 10/04/16 04:03 Albumin 2.1 g/dL (3.9-5) L 10/04/16 04:03 Albumin/Globulin Ratio 0.6 % 10/04/16 04:03 Triglycerides 407 mg/dL (2-149) H 10/10/16 06:00 Urine Color Yellow (Yellow) 10/03/16 15:54 Urine Turbidity Cloudy (Clear) 10/03/16 15:54 Urine pH 5.0 (5.0-7.0) 10/03/16 15:54 Ur Specific [place] 1.013 (1.003-1.030) 10/03/16 15:54 Urine Protein 30 mg/dl mg/dL (Negative) 10/03/16 15:54 Urine Glucose (UA) Neg mg/dL (Negative) 10/03/16 15:54 Urine Ketones Neg mg/dL (Negative) 10/03/16 15:54 Urine Blood Lg (Negative) 10/03/16 15:54 Urine Nitrite Neg (Negative) 10/03/16 15:54 Urine Bilirubin Neg (Negative) 10/03/16 15:54 Urine Urobilinogen < 2.0 mg/dL (<2.0) 10/03/16 15:54 Ur Leukocyte Esterase Tr (Negative) 10/03/16 15:54 Urine WBC (Auto) 21.0 /HPF (0.0-6.0) H 10/03/16 15:54 Urine RBC (Auto) 65.0 /HPF (0.0-6.0) 10/03/16 15:54 U Epithel Cells (Auto) 2.0 /HPF (0-13.0) 10/03/16 15:54 Urine Bacteria (Auto) 3+ /HPF (Negative) 10/03/16 15:54 Amorphous Crystals 1+ 10/03/16 15:54 Urine Mucus Few /HPF 10/03/16 15:54 Urine Creatinine 63.2 mg/dL (0.1-20.0) H 10/03/16 15:54 Urine Sodium 20 mEq/L 10/03/16 15:54 Urine Total Protein 67 mg/dL (5-11.8) H 10/03/16 15:54 Vancomycin Trough 45.5 ug/mL (5.0-20.0) H 10/04/16 12:39 Random Vancomycin 14.9 ug/mL (0-40.0) 10/07/16 05:25 Lymph Enumerat CD4/CD8 2.87 (0.86-5.00) 10/10/16 13:03 % CD3 Cells 73 % (57-85) 10/10/16 13:03 Absolute CD3 Count 2879 cells/uL (840-3060) 10/10/16 13:03 % CD4 Cells 55 % (30-61) 10/10/16 13:03 Absolute CD4 Count 2178 cells/uL (490-1740) H 10/10/16 13:03 % CD8 Cells 19 % (12-42) 10/10/16 13:03 Absolute CD8 Count 759 cells/uL (180-1170) 10/10/16 13:03 % CD19 Cells 21 % (6-29) 10/10/16 13:03 Absolute CD19 Count 824 cells/uL (110-660) H 10/10/16 13:03 Blood Type O POSITIVE 10/09/16 10:00 Antibody Screen TNR 10/01/16 00:55 DEACON Antibody Screen Negative 10/09/16 10:00 Crossmatch See Detail 10/09/16 10:00
[2016-10-12 13:05] LABS: Basophils % (Manual) 0 % (0.0-1.8); Blastocytes % (Manual) 0 %; Eosinophils % (Manual) 0.5 % (0.0-4.3); Nucleated Red Blood Cells 15.5 % (0.0-0.9); Total Cells Counted Percent 2.5
[2016-10-12 13:06] LABS: Anisocytosis 1+; Polychromasia 1+; Stomatocytes Few
[2016-10-12 13:07] LABS: Diff Status Complete; Platelet Estimate Consistent w Auto
--- NOTE | 2016-10-12 13:30 | Progress Note ---
Assessment and Plan - Patient Problems (1) Acute respiratory failure with hypoxia Current Visit: Yes Status: Acute Plan to address problem: 1. No evidence of T cell immunosuppresion. Negative viral studies of sputum to date. 2. Will repeat sputum culture, glynn, while off broad antimicrobials. (2) Leukemoid reaction Current Visit: Yes Status: Acute Plan to address problem: 1. Remains elevated >35K. No new clinical correlate. Follow. Subjective Date of service: 10/12/16 Principal diagnosis: Acute Hypoxemic Respiratory Failure; ARDS Interval history: Remains in ICU with intermittent low-grade temps. More alert today. Objective - Exam Narrative Exam: intubated, tracks with eyes to voice, FiO2 45% - Constitutional Vitals: Vital Signs Temp Pulse Resp BP Pulse Ox 99 F 110 H 21 122/73 93 10/12/16 11:00 10/12/16 12:10 10/12/16 12:10 10/12/16 12:10 10/12/16 12:10 Temperature -Last 24 Hours Temperature 99 F Temperature 98.9 F Temperature 100.4 F Temperature 100.1 F General appearance: Present: obese - EENT Eyes: no conjunctival injection, exopthalmos ENT: other (NG and ET tubes in place) - Neck Neck: supple - Respiratory Respiratory effort: normal Respiratory: bilateral: diminished, negative: rales - Cardiovascular Rhythm: regular (mild tachycardia) Heart Sounds: Present: S1 & S2 Extremities: No edema Extremity abnormal: other (left hip incision covered; no obvious drainage) - Gastrointestinal General gastrointestinal: Present: soft, non-distended - Integumentary Integumentary: no rash - Labs CBC & Chem 7: 10/12/16 06:57 10/12/16 06:57 Labs: Abnormal lab results 10/09/16 10/10/16 10/11/16 Range/Units 10:00 13:03 12:54 WBC 31.8 H (4.5-11.0) K/mm3 RDW 17.8 H (13.2-15.2) % [place] # (0.0-0.8) K/mm3 Baso # (0.0-0.1) K/mm3 Seg Neutrophils % (40.0-70.0) % Seg Neuts % (Manual) 84.0 H (40.0-70.0) % Lymphocytes % (Manual) 9.0 L (13.4-35.0) % Nucleated RBC % 28.0 H (0.0-0.9) % Seg Neutrophils # (1.8-7.7) K/mm3 Seg Neutrophils # Man 27.1 H (1.8-7.7) K/mm3 Abs Lymphs (Manual) 3936 H (850-3900) cells/uL Monocytes # (Manual) 1.6 H (0.0-0.8) K/mm3 POC ABG pH (7.35-7.45) POC ABG pCO2 (35-45) POC ABG pO2 (80-105) Sodium (137-145) mmol/L Chloride (98-107) mmol/L Carbon Dioxide (22-30) mmol/L BUN (7-17) mg/dL Creatinine (0.7-1.2) mg/dL Glucose (65-100) mg/dL POC Glucose (70-105) Calcium (8.4-10.2) mg/dL Phosphorus (2.5-4.5) mg/dL C-Reactive Protein (0.00-1.30) mg/dL Absolute CD4 Count 2178 H (490-1740) cells/uL Absolute CD19 Count 824 H (110-660) cells/uL Crossmatch See Detail 10/11/16 10/11/16 10/11/16 Range/Units 12:54 14:10 18:02 WBC (4.5-11.0) K/mm3 RDW (13.2-15.2) % [place] # (0.0-0.8) K/mm3 Baso # (0.0-0.1) K/mm3 Seg Neutrophils % (40.0-70.0) % Seg Neuts % (Manual) (40.0-70.0) % Lymphocytes % (Manual) (13.4-35.0) % Nucleated RBC % (0.0-0.9) % Seg Neutrophils # (1.8-7.7) K/mm3 Seg Neutrophils # Man (1.8-7.7) K/mm3 Abs Lymphs (Manual) (850-3900) cells/uL Monocytes # (Manual) (0.0-0.8) K/mm3 POC ABG pH 7.311 L (7.35-7.45) POC ABG pCO2 71.4 H (35-45) POC ABG pO2 59 L (80-105) Sodium (137-145) mmol/L Chloride 97.1 L (98-107) mmol/L Carbon Dioxide (22-30) mmol/L BUN 57 H (7-17) mg/dL Creatinine 1.6 H (0.7-1.2) mg/dL Glucose 369 H (65-100) mg/dL POC Glucose 206 H (70-105) Calcium 8.2 L (8.4-10.2) mg/dL Phosphorus (2.5-4.5) mg/dL C-Reactive Protein (0.00-1.30) mg/dL Absolute CD4 Count (490-1740) cells/uL Absolute CD19 Count (110-660) cells/uL Crossmatch 10/11/16 10/11/16 10/12/16 Range/Units 20:57 21:23 00:43 WBC (4.5-11.0) K/mm3 RDW (13.2-15.2) % [place] # (0.0-0.8) K/mm3 Baso # (0.0-0.1) K/mm3 Seg Neutrophils % (40.0-70.0) % Seg Neuts % (Manual) (40.0-70.0) % Lymphocytes % (Manual) (13.4-35.0) % Nucleated RBC % (0.0-0.9) % Seg Neutrophils # (1.8-7.7) K/mm3 Seg Neutrophils # Man (1.8-7.7) K/mm3 Abs Lymphs (Manual) (850-3900) cells/uL Monocytes # (Manual) (0.0-0.8) K/mm3 POC ABG pH 7.242 L (7.35-7.45) POC ABG pCO2 88.4 H (35-45) POC ABG pO2 57 L (80-105) Sodium (137-145) mmol/L Chloride (98-107) mmol/L Carbon Dioxide (22-30) mmol/L BUN (7-17) mg/dL Creatinine (0.7-1.2) mg/dL Glucose (65-100) mg/dL POC Glucose 212 H (70-105) Calcium (8.4-10.2) mg/dL Phosphorus (2.5-4.5) mg/dL C-Reactive Protein 3.00 H (0.00-1.30) mg/dL Absolute CD4 Count (490-1740) cells/uL Absolute CD19 Count (110-660) cells/uL Crossmatch 10/12/16 10/12/16 10/12/16 Range/Units 05:49 06:03 06:57 WBC 37.0 H (4.5-11.0) K/mm3 RDW 18.0 H (13.2-15.2) % [place] # 2.0 H (0.0-0.8) K/mm3 Baso # 0.2 H (0.0-0.1) K/mm3 Seg Neutrophils % 86.7 H (40.0-70.0) % Seg Neuts % (Manual) 91.5 H (40.0-70.0) % Lymphocytes % (Manual) 6.0 L (13.4-35.0) % Nucleated RBC % 15.5 H (0.0-0.9) % Seg Neutrophils # 30.6 H (1.8-7.7) K/mm3 Seg Neutrophils # Man 33.9 H (1.8-7.7) K/mm3 Abs Lymphs (Manual) (850-3900) cells/uL Monocytes # (Manual) (0.0-0.8) K/mm3 POC ABG pH 7.289 L (7.35-7.45) POC ABG pCO2 82.4 H (35-45) POC ABG pO2 65 L (80-105) Sodium (137-145) mmol/L Chloride (98-107) mmol/L Carbon Dioxide (22-30) mmol/L BUN (7-17) mg/dL Creatinine (0.7-1.2) mg/dL Glucose (65-100) mg/dL POC Glucose 230 H (70-105) Calcium (8.4-10.2) mg/dL Phosphorus (2.5-4.5) mg/dL C-Reactive Protein (0.00-1.30) mg/dL Absolute CD4 Count (490-1740) cells/uL Absolute CD19 Count (110-660) cells/uL Crossmatch 10/12/16 Range/Units 06:57 WBC (4.5-11.0) K/mm3 RDW (13.2-15.2) % [place] # (0.0-0.8) K/mm3 Baso # (0.0-0.1) K/mm3 Seg Neutrophils % (40.0-70.0) % Seg Neuts % (Manual) (40.0-70.0) % Lymphocytes % (Manual) (13.4-35.0) % Nucleated RBC % (0.0-0.9) % Seg Neutrophils # (1.8-7.7) K/mm3 Seg Neutrophils # Man (1.8-7.7) K/mm3 Abs Lymphs (Manual) (850-3900) cells/uL Monocytes # (Manual) (0.0-0.8) K/mm3 POC ABG pH (7.35-7.45) POC ABG pCO2 (35-45) POC ABG pO2 (80-105) Sodium 151 H D (137-145) mmol/L Chloride (98-107) mmol/L Carbon Dioxide 32 H (22-30) mmol/L BUN 62 H (7-17) mg/dL Creatinine 1.6 H (0.7-1.2) mg/dL Glucose 231 H (65-100) mg/dL POC Glucose (70-105) Calcium (8.4-10.2) mg/dL Phosphorus 4.90 H (2.5-4.5) mg/dL C-Reactive Protein (0.00-1.30) mg/dL Absolute CD4 Count (490-1740) cells/uL Absolute CD19 Count (110-660) cells/uL Crossmatch Microbiology 10/04/16 04:05 Tracheal Aspirate Herpes Simplex Virus Culture - Final 10/03/16 09:20 Peripheral/Venous Blood Culture - Final NO GROWTH AFTER 5 DAYS 10/03/16 09:30 Picc Blood Culture - Final NO GROWTH AFTER 5 DAYS 10/03/16 09:06 Urine,Catheterized - Indwelling Catheter Urine Culture - Final 09/27/16 22:47 Peripheral/Venous Blood Culture - Final NO GROWTH AFTER 5 DAYS 09/27/16 22:47 Peripheral/Venous Blood Culture - Final NO GROWTH AFTER 5 DAYS 09/27/16 15:06 Peripheral/Venous Blood Culture - Final NO GROWTH AFTER 5 DAYS 09/27/16 14:40 Peripheral/Venous Blood Culture - Final NO GROWTH AFTER 5 DAYS 09/30/16 Unknown Tracheal Aspirate Sputum Culture - Final Active Medications Acetaminophen (Tylenol) 650 mg PO Q4H PRN PRN Reason: Pain MILD(1-3)/Fever >100.5/PALACIOS Last Admin: 10/07/16 18:13 Dose: 650 mg Albuterol/Ipratropium (Duoneb 0.5 Mg-3 Mg/3 Ml Soln) 1 ampul IH Q6HRT [facility] Last Admin: 10/12/16 08:03 Dose: 1 ampul Lipase/Protease/Amylase (Pancreaze Dr 10,500 Unit) 1 each FEEDTUBE PRN PRN PRN Reason: For Clogged Feeding Tube Arformoterol Tartrate (Brovana Nebu) 15 mcg IH Q12HRT [facility] Last Admin: 10/12/16 08:03 Dose: 15 mcg Aspirin (Aspirin) 325 mg PO QDAY [facility] Last Admin: 10/11/16 10:16 Dose: 325 mg Budesonide (Pulmicort) 0.5 mg IH Q12HRT [facility] Last Admin: 10/12/16 08:03 Dose: 0.5 mg Diphenhydramine HCl (Benadryl) 12.5 mg IV Q4H PRN PRN Reason: Itching Last Admin: 09/30/16 07:02 Dose: 12.5 mg Enoxaparin Sodium (Lovenox) 40 mg SUB-Q QDAY [facility] Last Admin: 10/12/16 09:26 Dose: 40 mg Famotidine (Pepcid) 20 mg PO BID [facility] Last Admin: 10/12/16 09:25 Dose: 20 mg Folic Acid (Folvite) 1 mg PO QDAY [facility] Last Admin: 10/12/16 09:25 Dose: 1 mg Furosemide (Lasix) 20 mg IV DAILY [facility] Last Admin: 10/12/16 09:26 Dose: 20 mg Hydrophilic Ointment (Vaseline Lip Therapy) 1 applic TP Q2HR PRN PRN Reason: Dry Lips Fentanyl Citrate (Fentanyl Drip Premix) 2,000 mcg in 100 mls @ 4.649 mls/hr IV TITR SADAF; 1 MCG/KG/HR PRN Reason: Protocol Last Admin: 10/11/16 10:36 Dose: 2 mcg/kg/hr, 9.299 mls/hr Midazolam HCl 100 mg/ Sodium (Chloride) 100 mls @ 2 mls/hr IV TITR SADAF; 2 MG/HR PRN Reason: Protocol Last Admin: 10/04/16 12:54 Dose: 2 mg/hr, 2 mls/hr Metronidazole (Flagyl 500 Mg/100 Ml) 500 mg in 100 mls @ 100 mls/hr IV Q8HR [facility] Last Admin: 10/12/16 06:00 Dose: 100 mls/hr Dextrose (D5w) 1,000 mls @ 50 mls/hr IV DIRECT [facility] Last Admin: 10/12/16 12:01 Dose: 50 mls/hr Insulin Human Regular (Novolin R) 0 units SUB-Q Q6HR [facility] PRN Reason: Protocol Last Admin: 10/12/16 12:11 Dose: 2 units Multi-Ingred Cream/Lotion/Oil/Oint (Artificial Tears Ophth Oint) 1 applic OU Q4HR PRN PRN Reason: Dry Eye(s) Multivitamins (Theragran Tab) 1 each PO QDAY [facility] Last Admin: 10/12/16 09:26 Dose: 1 each Ondansetron HCl (Zofran) 4 mg IV Q8H PRN PRN Reason: Nausea And Vomiting Last Admin: 09/29/16 23:07 Dose: 4 mg Promethazine HCl (Phenergan) 25 mg [place] Q6H PRN PRN Reason: Nausea And Vomiting Last Admin: 09/25/16 22:05 Dose: 25 mg Senna (Senokot) 17.2 mg PO DAILY [facility] Last Admin: 10/12/16 09:25 Dose: 17.2 mg Simple Syrup (Simple Syrup) 15 ml FEEDTUBE PRN PRN PRN Reason: Hypoglycemia Simple Syrup (Simple Syrup) 30 ml FEEDTUBE PRN PRN PRN Reason: Hypoglycemia Sodium Bicarbonate (Sodium Bicarbonate) 325 mg FEEDTUBE PRN PRN PRN Reason: For Clogged Feeding Tube Sodium Chloride (Sodium Chloride Flush Syringe 10 Ml) 10 ml IV PRN PRN PRN Reason: LINE FLUSH Tramadol HCl (Ultram) 50 mg PO Q4H PRN PRN Reason: Pain, Moderate (4-6) Last Admin: 10/06/16 21:54 Dose: 50 mg Valacyclovir HCl (Valtrex) 500 mg PO DAILY [facility] Last Admin: 10/12/16 09:27 Dose: 500 mg Zolpidem Tartrate (Ambien) 5 mg PO QHS PRN PRN Reason: Sleep
--- NOTE | 2016-10-12 20:29 | Consultation ---
History of Present Illness - Reason for Consult Consult date: 10/12/16 - History of Present Illness Patient seen/examined, labs reviewed, She responds to name calling, a change. Other notes reviewed. Past History Past Medical History: anemia (sickle cell anemia) Social history: no significant social history Family history: no significant family history Medications and Allergies Allergies Allergy/AdvReac Type Severity Reaction Status Date / Time No Known Allergies Allergy Unverified 10/13/13 13:21 Home Medications Medication Instructions Recorded Confirmed Last Taken Type Folic Acid [Folvite] 1 mg PO QDAY 10/13/13 09/18/16 09/18/16 History oxyCODONE /ACETAMINOPHEN [Percocet 1 tab PO Q6HR PRN #10 tablet 10/13/1309/18/16 Rx 5/325 mg] Promethazine [Phenergan] 25 mg PO Q6H PRN 08/16/14 09/18/16 09/18/16 History valACYclovir [Valtrex] 500 mg PO DAILY 08/16/14 09/18/16 09/18/16 History Active Meds: Active Medications Acetaminophen (Tylenol) 650 mg PO Q4H PRN PRN Reason: Pain MILD(1-3)/Fever >100.5/PALACIOS Last Admin: 10/07/16 18:13 Dose: 650 mg Albuterol/Ipratropium (Duoneb 0.5 Mg-3 Mg/3 Ml Soln) 1 ampul IH Q6HRT [facility] Last Admin: 10/12/16 20:08 Dose: Not Given Lipase/Protease/Amylase (Fritz Dr 10,500 Unit) 1 each FEEDTUBE PRN PRN PRN Reason: For Clogged Feeding Tube Arformoterol Tartrate (Brovana Nebu) 15 mcg IH Q12HRT [facility] Last Admin: 10/12/16 20:08 Dose: 15 mcg Aspirin (Aspirin) 325 mg PO QDAY [facility] Last Admin: 10/12/16 10:00 Dose: 325 mg Budesonide (Pulmicort) 0.5 mg IH Q12HRT [facility] Last Admin: 10/12/16 20:08 Dose: 0.5 mg Diphenhydramine HCl (Benadryl) 12.5 mg IV Q4H PRN PRN Reason: Itching Last Admin: 09/30/16 07:02 Dose: 12.5 mg Enoxaparin Sodium (Lovenox) 40 mg SUB-Q QDAY [facility] Last Admin: 10/12/16 09:26 Dose: 40 mg Famotidine (Pepcid) 20 mg PO BID [facility] Last Admin: 10/12/16 09:25 Dose: 20 mg Folic Acid (Folvite) 1 mg PO QDAY [facility] Last Admin: 10/12/16 09:25 Dose: 1 mg Furosemide (Lasix) 20 mg IV DAILY [facility] Last Admin: 10/12/16 09:26 Dose: 20 mg Hydrophilic Ointment (Vaseline Lip Therapy) 1 applic TP Q2HR PRN PRN Reason: Dry Lips Fentanyl Citrate (Fentanyl Drip Premix) 2,000 mcg in 100 mls @ 4.649 mls/hr IV TITR SADAF; 1 MCG/KG/HR PRN Reason: Protocol Last Admin: 10/11/16 10:36 Dose: 2 mcg/kg/hr, 9.299 mls/hr Midazolam HCl 100 mg/ Sodium (Chloride) 100 mls @ 2 mls/hr IV TITR SADAF; 2 MG/HR PRN Reason: Protocol Last Admin: 10/04/16 12:54 Dose: 2 mg/hr, 2 mls/hr Metronidazole (Flagyl 500 Mg/100 Ml) 500 mg in 100 mls @ 100 mls/hr IV Q8HR [facility] Last Admin: 10/12/16 14:06 Dose: 100 mls/hr Dextrose (D5w) 1,000 mls @ 50 mls/hr IV DIRECT [facility] Last Admin: 10/12/16 12:01 Dose: 50 mls/hr Insulin Human Regular (Novolin R) 0 units SUB-Q Q6HR [facility] PRN Reason: Protocol Last Admin: 10/12/16 17:48 Dose: 2 units Multi-Ingred Cream/Lotion/Oil/Oint (Artificial Tears Ophth Oint) 1 applic OU Q4HR PRN PRN Reason: Dry Eye(s) Multivitamins (Theragran Tab) 1 each PO QDAY [facility] Last Admin: 10/12/16 09:26 Dose: 1 each Ondansetron HCl (Zofran) 4 mg IV Q8H PRN PRN Reason: Nausea And Vomiting Last Admin: 09/29/16 23:07 Dose: 4 mg Promethazine HCl (Phenergan) 25 mg [place] Q6H PRN PRN Reason: Nausea And Vomiting Last Admin: 09/25/16 22:05 Dose: 25 mg Senna (Senokot) 17.2 mg PO DAILY [facility] Last Admin: 10/12/16 09:25 Dose: 17.2 mg Simple Syrup (Simple Syrup) 15 ml FEEDTUBE PRN PRN PRN Reason: Hypoglycemia Simple Syrup (Simple Syrup) 30 ml FEEDTUBE PRN PRN PRN Reason: Hypoglycemia Sodium Bicarbonate (Sodium Bicarbonate) 325 mg FEEDTUBE PRN PRN PRN Reason: For Clogged Feeding Tube Sodium Chloride (Sodium Chloride Flush Syringe 10 Ml) 10 ml IV PRN PRN PRN Reason: LINE FLUSH Tramadol HCl (Ultram) 50 mg PO Q4H PRN PRN Reason: Pain, Moderate (4-6) Last Admin: 10/06/16 21:54 Dose: 50 mg Valacyclovir HCl (Valtrex) 500 mg PO DAILY [facility] Last Admin: 10/12/16 09:27 Dose: 500 mg Zolpidem Tartrate (Ambien) 5 mg PO QHS PRN PRN Reason: Sleep Review of Systems Constitutional: other (on vent.) Breasts: deferred Exam - Constitutional Vitals: Temp Pulse Resp BP Pulse Ox 99.9 F H 111 H 21 116/68 93 10/12/16 19:34 10/12/16 20:03 10/12/16 18:00 10/12/16 20:03 10/12/16 20:03 General appearance: Present: severe distress, well-nourished - EENT Eyes: Present: PERRL ENT: hearing intact, clear oral mucosa - Neck Neck: Present: supple, normal ROM - Respiratory Respiratory: bilateral: other (on the vent.) - Cardiovascular Heart Sounds: Present: S1 & S2. Absent: rub, click - Extremities Extremities: pulses symmetrical, No edema Peripheral Pulses: within normal limits - Abdominal General gastrointestinal: Present: soft, non-tender, non-distended, normal bowel sounds Female genitourinary: Present: deferred - Rectal Rectal Exam: deferred - Integumentary Integumentary: Present: clear, warm, dry Results - Labs CBC & Chem 7: 10/12/16 06:57 10/12/16 17:00 Labs: Abnormal lab results 05/11/17 05/12/17 05/12/17 Range/Units 13:03 20:57 21:23 WBC (4.5-11.0) K/mm3 RDW (13.2-15.2) % [place] # (0.0-0.8) K/mm3 Baso # (0.0-0.1) K/mm3 Seg Neutrophils % (40.0-70.0) % Seg Neuts % (Manual) (40.0-70.0) % Lymphocytes % (Manual) (13.4-35.0) % Nucleated RBC % (0.0-0.9) % Seg Neutrophils # (1.8-7.7) K/mm3 Seg Neutrophils # Man (1.8-7.7) K/mm3 Abs Lymphs (Manual) 3936 H (850-3900) cells/uL POC ABG pH 7.242 L (7.35-7.45) POC ABG pCO2 88.4 H (35-45) POC ABG pO2 57 L (80-105) Sodium (137-145) mmol/L Carbon Dioxide (22-30) mmol/L BUN (7-17) mg/dL Creatinine (0.7-1.2) mg/dL Glucose (65-100) mg/dL POC Glucose (70-105) Phosphorus (2.5-4.5) mg/dL C-Reactive Protein 3.00 H (0.00-1.30) mg/dL Absolute CD4 Count 2178 H (490-1740) cells/uL Absolute CD19 Count 824 H (110-660) cells/uL 10/12/16 10/12/16 10/12/16 Range/Units 00:43 05:49 06:03 WBC (4.5-11.0) K/mm3 RDW (13.2-15.2) % [place] # (0.0-0.8) K/mm3 Baso # (0.0-0.1) K/mm3 Seg Neutrophils % (40.0-70.0) % Seg Neuts % (Manual) (40.0-70.0) % Lymphocytes % (Manual) (13.4-35.0) % Nucleated RBC % (0.0-0.9) % Seg Neutrophils # (1.8-7.7) K/mm3 Seg Neutrophils # Man (1.8-7.7) K/mm3 Abs Lymphs (Manual) (850-3900) cells/uL POC ABG pH 7.289 L (7.35-7.45) POC ABG pCO2 82.4 H (35-45) POC ABG pO2 65 L (80-105) Sodium (137-145) mmol/L Carbon Dioxide (22-30) mmol/L BUN (7-17) mg/dL Creatinine (0.7-1.2) mg/dL Glucose (65-100) mg/dL POC Glucose 212 H 230 H (70-105) Phosphorus (2.5-4.5) mg/dL C-Reactive Protein (0.00-1.30) mg/dL Absolute CD4 Count (490-1740) cells/uL Absolute CD19 Count (110-660) cells/uL 10/12/16 10/12/16 10/12/16 Range/Units 06:57 06:57 11:59 WBC 37.0 H (4.5-11.0) K/mm3 RDW 18.0 H (13.2-15.2) % [place] # 2.0 H (0.0-0.8) K/mm3 Baso # 0.2 H (0.0-0.1) K/mm3 Seg Neutrophils % 86.7 H (40.0-70.0) % Seg Neuts % (Manual) 91.5 H (40.0-70.0) % Lymphocytes % (Manual) 6.0 L (13.4-35.0) % Nucleated RBC % 15.5 H (0.0-0.9) % Seg Neutrophils # 30.6 H (1.8-7.7) K/mm3 Seg Neutrophils # Man 33.9 H (1.8-7.7) K/mm3 Abs Lymphs (Manual) (850-3900) cells/uL POC ABG pH (7.35-7.45) POC ABG pCO2 (35-45) POC ABG pO2 (80-105) Sodium 151 H D (137-145) mmol/L Carbon Dioxide 32 H (22-30) mmol/L BUN 62 H (7-17) mg/dL Creatinine 1.6 H (0.7-1.2) mg/dL Glucose 231 H (65-100) mg/dL POC Glucose 222 H (70-105) Phosphorus 4.90 H (2.5-4.5) mg/dL C-Reactive Protein (0.00-1.30) mg/dL Absolute CD4 Count (490-1740) cells/uL Absolute CD19 Count (110-660) cells/uL 10/12/16 10/12/16 Range/Units 17:00 17:41 WBC (4.5-11.0) K/mm3 RDW (13.2-15.2) % [place] # (0.0-0.8) K/mm3 Baso # (0.0-0.1) K/mm3 Seg Neutrophils % (40.0-70.0) % Seg Neuts % (Manual) (40.0-70.0) % Lymphocytes % (Manual) (13.4-35.0) % Nucleated RBC % (0.0-0.9) % Seg Neutrophils # (1.8-7.7) K/mm3 Seg Neutrophils # Man (1.8-7.7) K/mm3 Abs Lymphs (Manual) (850-3900) cells/uL POC ABG pH (7.35-7.45) POC ABG pCO2 (35-45) POC ABG pO2 (80-105) Sodium 130 L D (137-145) mmol/L Carbon Dioxide (22-30) mmol/L BUN (7-17) mg/dL Creatinine (0.7-1.2) mg/dL Glucose (65-100) mg/dL POC Glucose 223 H (70-105) Phosphorus (2.5-4.5) mg/dL C-Reactive Protein (0.00-1.30) mg/dL Absolute CD4 Count (490-1740) cells/uL Absolute CD19 Count (110-660) cells/uL Assessment and Plan - Patient Problems (1) Sepsis Current Visit: Yes Status: Acute Qualifiers: Sepsis type: sepsis due to unspecified organism Qualified Code(s): A41.9 - Sepsis, unspecified organism Plan to address problem: SEE w/up in the notes. No improvement so far. worsening sepsis. Slight improvement (2) Sleep apnea syndrome Current Visit: Yes Status: Acute Qualifiers: Sleep apnea type: S Plan to address problem: oxygen/BIPAP management. Patient now in full resp failure, and on the vent. (3) UTI (urinary tract infection) Current Visit: Yes Status: Acute Qualifiers: Urinary tract infection type: U Hematuria presence: H Indwelling urinary catheter type: I Encounter type: E Plan to address problem: patient already on abx iv. may need culture sent. culture no growth. (4) Anemia Current Visit: Yes Status: Acute Qualifiers: Anemia type: A Iron deficiency anemia type: I Vitamin B12 deficiency anemia type: V Folate deficiency anemia type: F Bone marrow failure anemia type: B Hemolytic anemia type: H Other causes of anemia: O Plan to address problem: will transfuse if hgb 7.5 or less. no new issues at this time. May transfuse if further drop. (5) Leukocytosis Current Visit: Yes Status: Acute Qualifiers: Leukocytosis type: L Plan to address problem: will order flow, and try leukophoresis. instead, exchange transfusion is done today. improving.
[2016-10-12 22:12] LABS: ISTAT Base Excess 13; ISTAT HCO3 40.3; ISTAT PCO2 89.1 (35-45); ISTAT PH 7.264 (7.35-7.45); ISTAT PO2 62 (80-105); ISTAT SO2 85; ISTAT TCO2 43
[2016-10-12] MEDS: fentaNYL DRIP Premix 2,000 MCG/100 ML BAG IV SCH (22:35)
[2016-10-13] MEDS: DUONEB 0.5 MG-3 MG/3 ML SOLN IH SCH ×5 (02:15→20:00)
[2016-10-13] MEDS: fentaNYL DRIP Premix 2,000 MCG/100 ML BAG IV SCH ×2 (03:45→22:40)
[2016-10-13 05:42] LABS: ISTAT Base Excess 16; ISTAT HCO3 42.2; ISTAT PCO2 89.6 (35-45); ISTAT PH 7.281 (7.35-7.45); ISTAT PO2 63 (80-105); ISTAT SO2 87; ISTAT TCO2 45
[2016-10-13] MEDS: FLAGYL 500 MG/100 ML 500 MG/100 ML BAG IV SCH ×3 (06:10→22:41)
[2016-10-13 06:31] LABS: BUN/Creatinine Ratio 44.61; Calcium 8.7 mg/dL (8.4-10.2); Chloride 103.6 mmol/L (98-107); Hematocrit 33.8 % (30.3-42.9); Hemoglobin 10.7 gm/dl (10.1-14.3); Mean Corpuscular HGB Conc 32 % (30-34); Mean Corpuscular Hemoglobin 28 pg (28-32); Mean Corpuscular Volume 89 fl (79-97); Platelet Count 207 K/mm3 (140-440); Potassium 4.7 mmol/L (3.6-5.0); Red Blood Count 3.79 M/mm3 (3.65-5.03); Red Cell Distribution Width 18.1 % (13.2-15.2)
[2016-10-13 06:36] LABS: White Blood Count 25.9 K/mm3 (4.5-11.0)
--- NOTE | 2016-10-13 09:08 | XRay Report ---
Portable abdomen: History: Dobbhoff placement. Findings: Tip of Dobbhoff ET tube is noted in the descending duodenum. No bowel distention. Impression: Tip of Dobbhoff feeding tube in descending duodenum.
[2016-10-13] MEDS: PEPCID PO SCH ×2 (09:32→22:41)
[2016-10-13] MEDS: FOLVITE PO SCH (09:32)
[2016-10-13] MEDS: SENOKOT PO SCH (09:32)
[2016-10-13] MEDS: ASPIRIN PO SCH (09:32)
[2016-10-13] MEDS: THERAGRAN Tab PO SCH (09:32)
[2016-10-13] MEDS: LASIX IV SCH (09:32)
[2016-10-13] MEDS: VALTREX PO SCH (09:33)
[2016-10-13] MEDS: LOVENOX SUB-Q SCH (09:33)
--- NOTE | 2016-10-13 09:35 | Progress Note ---
Assessment and Plan Assessment and plan: The patient is a 41-year-old female with a history of sickle cell disease who was admitted for total hip arthroplasty for avascular necrosis of the left hip. She had left total hip arthroplasty on 09/25/2016 and developed acute hypoxemic respiratory failure following the POD 2 likely from ARDS and ultimately required intubation on 09/27/2016. Her hemoglobin level dropped from 8.1-6.9 on 09/30/2016, also noted to have hypokalemia with potassium level 3.1. Hospitalist service consulted for medical management. Patient remained in a I intubated with mechanical ventilation. Her white count continued to trend up. Maintained on sepsis protocol, CT scan of abdomen and pelvis and thorax done without contrast to identify the source for infection. CT scan of the chest was suggestive for possible pneumonia. She is currently on broad- spectrum antibiotics, critically ill with poor prognosis. Acute hypoxic respiratory failure -has required mechanical vent for > 96 hours - likely due to ARDS with PNA, intubated on 09/27/16 - on mechanical ventilation, still hoping to wean off vent -consider tracheostomy for [facility] weaning when patient is more stable - pulmonary following, cont nebulizer, vent support, has completed antibiotics - wean off as tolerated -Pulmonary input appreciated, patient for bronchoscopy with BAL When clinically more stable Sepsis syndrome - Likely from pneumonia - Spiking temp intermittently, wbc count continue to increased Patient has completed a 7 day course of antibiotics for treatment of sepsis/ pneumonia, ID input appreciated, on flagyl Severe anemia - History of thalassemia major - has received multiple prbc transfusion, and received exchange transfusion on 10/10/16 - hematology following - Avscular necrosis of the left hip - s/p total left hip arthoplasty on 09/25/16 Hypokalemia -Status post replacement, continue to replete as needed Hypernatremia -Continue free water via gastric tube, improving CARLYN - likely from sepsis syndrome and ATN - monitor renal function - nephrology following, diuretic doses have been reduced, renal function improving Leukocytosis Most likely leukemoid reaction, improving, hematology input appreciated, flow cytometry has been ordered by the repairer auto clocks Prognosis remains guarded; Critical care time 32 minutes NOK Son: Jordan Love [phone] Son: Gino [facility]: [phone] Daughter: Varun Love [phone] Dispo: LTACH History Interval history: patient remains intubated, sedated, failed weaning trials Hospitalist Physical - Physical exam Narrative exam: General: Intubated sedated HEENT: MMM, EOMI cardiac: S1-S2 heard lungs: Rhonchorous ventilated breath sounds abdomen: soft, nontender, nondistended bowel sounds positive extremities: no edema clubbing or cyanosis Skin: no rash or lesion Neuro: Intubated, sedated, but is not obeying any commands - Constitutional Vitals: Temp Pulse Resp BP Pulse Ox 98.9 F 106 H 25 H 100/52 95 10/13/16 08:00 10/13/16 09:00 10/13/16 08:00 10/13/16 09:00 10/13/16 09:00 General appearance: Present: severe distress, well-nourished Results - Labs CBC & Chem 7: 10/13/16 06:00 10/13/16 06:00 Labs: Laboratory Last Values WBC 25.9 K/mm3 (4.5-11.0) H 10/13/16 06:00 RBC 3.79 M/mm3 (3.65-5.03) 10/13/16 06:00 Hgb 10.7 gm/dl (10.1-14.3) 10/13/16 06:00 Hct 33.8 % (30.3-42.9) 10/13/16 06:00 MCV 89 fl (79-97) 10/13/16 06:00 MCH 28 pg (28-32) 10/13/16 06:00 MCHC 32 % (30-34) 10/13/16 06:00 RDW 18.1 % (13.2-15.2) H 10/13/16 06:00 Plt Count 207 K/mm3 (140-440) 10/13/16 06:00 Lymph % (Auto) 33.3 % (13.4-35.0) 09/20/16 10:35 [place] % (Auto) 5.8 % (0.0-7.3) 10/12/16 06:57 Eos % (Auto) 0.3 % (0.0-4.3) 10/12/16 06:57 Baso % (Auto) 0.7 % (0.0-1.8) 09/20/16 10:35 Lymph # [employer] Supervisor 10/11/16 12:54 [place] # 2.0 K/mm3 (0.0-0.8) H 10/12/16 06:57 Eos # 0.1 K/mm3 (0.0-0.4) 10/12/16 06:57 Baso # 0.2 K/mm3 (0.0-0.1) H 10/12/16 06:57 Add Manual Diff Complete 10/12/16 06:57 Total Counted 200 10/12/16 06:57 Seg Neutrophils % 86.7 % (40.0-70.0) H 10/12/16 06:57 Seg Neuts % (Manual) 91.5 % (40.0-70.0) H 10/12/16 06:57 Band Neutrophils % 0 % 10/12/16 06:57 Lymphocytes % (Manual) 6.0 % (13.4-35.0) L 10/12/16 06:57 Reactive Lymphs % (Man) 0 % 10/12/16 06:57 Monocytes % (Manual) 2.0 % (0.0-7.3) 10/12/16 06:57 Eosinophils % (Manual) 0.5 % (0.0-4.3) 10/12/16 06:57 Basophils % (Manual) 0 % (0.0-1.8) 10/12/16 06:57 Metamyelocytes % 0 % 10/12/16 06:57 Myelocytes % 0 % 10/12/16 06:57 Promyelocytes % 0 % 10/12/16 06:57 Blast Cells % 0 % 10/12/16 06:57 Nucleated RBC % 15.5 % (0.0-0.9) H 10/12/16 06:57 Seg Neutrophils # 30.6 K/mm3 (1.8-7.7) H 10/12/16 06:57 Seg Neutrophils # Man 33.9 K/mm3 (1.8-7.7) H 10/12/16 06:57 Band Neutrophils # 0.0 K/mm3 10/12/16 06:57 Abs Lymphs (Manual) 3936 cells/uL (850-3900) H 10/10/16 13:03 Lymphocytes # (Manual) 2.2 K/mm3 (1.2-5.4) 10/12/16 06:57 Abs React Lymphs (Man) 0.0 K/mm3 10/12/16 06:57 Monocytes # (Manual) 0.7 K/mm3 (0.0-0.8) 10/12/16 06:57 Eosinophils # (Manual) 0.2 K/mm3 (0.0-0.4) 10/12/16 06:57 Basophils # (Manual) 0.0 K/mm3 (0.0-0.1) 10/12/16 06:57 Metamyelocytes # 0.0 K/mm3 10/12/16 06:57 Myelocytes # 0.0 K/mm3 10/12/16 06:57 Promyelocytes # 0.0 K/mm3 10/12/16 06:57 Blast Cells # 0.0 K/mm3 10/12/16 06:57 Pathologist Review 10/10/16 06:00 WBC Morphology Not Reportable 10/12/16 06:57 Hypersegmented Neuts Not Reportable 10/12/16 06:57 Hyposegmented Neuts Not Reportable 10/12/16 06:57 Hypogranular Neuts Not Reportable 10/12/16 06:57 Smudge Cells Not Reportable 10/12/16 06:57 Toxic Granulation Not Reportable 10/12/16 06:57 Toxic Vacuolation Not Reportable 10/12/16 06:57 Dohle Bodies Not Reportable 10/12/16 06:57 Pelger-Huet Anomaly Not Reportable 10/12/16 06:57 Jaspreet Rods Not Reportable 10/12/16 06:57 Platelet Estimate Consistent w auto 10/12/16 06:57 Clumped Platelets Not Reportable 10/12/16 06:57 Plt Clumps, EDTA Not Reportable 10/12/16 06:57 Large Platelets Not Reportable 10/12/16 06:57 Giant Platelets Not Reportable 10/12/16 06:57 Platelet Satelliting Not Reportable 10/12/16 06:57 Plt Morphology Comment Not Reportable 10/12/16 06:57 RBC Morphology Not Reportable 10/12/16 06:57 Dimorphic RBCs Not Reportable 10/12/16 06:57 Polychromasia 1+ 10/12/16 06:57 Hypochromasia Not Reportable 10/12/16 06:57 Poikilocytosis Not Reportable 10/12/16 06:57 Basophilic Stippling Few 10/10/16 06:00 Anisocytosis 1+ 10/12/16 06:57 Microcytosis Not Reportable 10/12/16 06:57 Macrocytosis Not Reportable 10/12/16 06:57 Spherocytes Not Reportable 10/12/16 06:57 Pappenheimer Bodies Not Reportable 10/12/16 06:57 Sickle Cells Not Reportable 10/12/16 06:57 Target Cells Not Reportable 10/12/16 06:57 Tear Drop Cells Not Reportable 10/12/16 06:57 Ovalocytes Not Reportable 10/12/16 06:57 Stomatocytes Few 10/12/16 06:57 Helmet Cells Not Reportable 10/12/16 06:57 [place] Bodies Not Reportable 10/12/16 06:57 [place] Rings Not Reportable 10/12/16 06:57 Mike Cells Not Reportable 10/12/16 06:57 Bite Cells Not Reportable 10/12/16 06:57 Crenated Cell Not Reportable 10/12/16 06:57 Elliptocytes Not Reportable 10/12/16 06:57 Acanthocytes (Spur) Not Reportable 10/12/16 06:57 Rouleaux Not Reportable 10/12/16 06:57 Hemoglobin C Crystals Not Reportable 10/12/16 06:57 Schistocytes Not Reportable 10/12/16 06:57 Malaria parasites Not Reportable 10/12/16 06:57 Percent Retic 8.11 % (0.78-2.58) H 09/27/16 22:47 Jeffrey Bodies Not Reportable 10/12/16 06:57 Hem Pathologist Commnt No 10/12/16 06:57 PT 17.6 Sec. (12.2-14.9) H 10/10/16 13:03 INR 1.45 (0.87-1.13) H 10/10/16 13:03 APTT 31.1 Sec. (24.2-36.6) 09/20/16 10:35 D-Dimer 4758.12 ng/mlDDU (0-234) H 09/27/16 22:47 POC ABG pH 7.281 (7.35-7.45) L 10/13/16 05:30 POC ABG pCO2 89.6 (35-45) H 10/13/16 05:30 POC ABG pO2 63 (80-105) L 10/13/16 05:30 POC ABG HCO3 42.2 10/13/16 05:30 POC ABG Total CO2 45 10/13/16 05:30 POC ABG O2 Sat 87 10/13/16 05:30 POC ABG Base Excess 16 10/13/16 05:30 FiO2 45 % 10/13/16 05:30 Sodium 148 mmol/L (137-145) H D 10/13/16 06:00 Potassium 4.7 mmol/L (3.6-5.0) 10/13/16 06:00 Chloride 103.6 mmol/L (98-107) 10/13/16 06:00 Carbon Dioxide 36 mmol/L (22-30) H 10/13/16 06:00 Anion Gap 13 mmol/L 10/13/16 06:00 BUN 58 mg/dL (7-17) H 10/13/16 06:00 Creatinine 1.3 mg/dL (0.7-1.2) H 10/13/16 06:00 Estimated GFR 55 ml/min 10/13/16 06:00 BUN/Creatinine Ratio 44.61 % 10/13/16 06:00 Glucose 189 mg/dL (65-100) H 10/13/16 06:00 POC Glucose 192 (70-105) H 10/13/16 06:20 Osmolality 311 Mosm/kg 10/04/16 04:03 Lactic Acid 1.00 mmol/L (0.7-2.0) 10/11/16 20:57 Calcium 8.7 mg/dL (8.4-10.2) 10/13/16 06:00 Phosphorus 4.00 mg/dL (2.5-4.5) 10/13/16 06:00 Ferritin 782.0 ng/mL (13.0-400.0) H 10/10/16 06:00 Total Bilirubin 1.20 mg/dL (0.1-1.2) 10/04/16 04:03 AST 31 units/L (5-40) 10/04/16 04:03 ALT 33 units/L (7-56) 10/04/16 04:03 Alkaline Phosphatase 100 units/L (35-129) 10/04/16 04:03 Lactate Dehydrogenase 829 units/L (91-180) H 09/27/16 22:47 Total Creatine Kinase 3575 units/L (30-135) H 09/27/16 14:40 CK-MB (CK-2) 11.0 ng/mL (0.0-4.0) H 09/27/16 14:40 CK-MB (CK-2) Rel Index 0.3 (0-4) 09/27/16 14:40 Troponin T < 0.010 ng/mL (0.00-0.029) 09/27/16 14:40 C-Reactive Protein 3.00 mg/dL (0.00-1.30) H 10/11/16 20:57 NT-Pro-B Natriuret Pep 2018 pg/mL (0-450) H 09/30/16 14:05 Total Protein 5.6 g/dL (6.3-8.2) L 10/04/16 04:03 Albumin 2.1 g/dL (3.9-5) L 10/04/16 04:03 Albumin/Globulin Ratio 0.6 % 10/04/16 04:03 Triglycerides 407 mg/dL (2-149) H 10/10/16 06:00 Urine Color Yellow (Yellow) 10/03/16 15:54 Urine Turbidity Cloudy (Clear) 10/03/16 15:54 Urine pH 5.0 (5.0-7.0) 10/03/16 15:54 Ur Specific [place] 1.013 (1.003-1.030) 10/03/16 15:54 Urine Protein 30 mg/dl mg/dL (Negative) 10/03/16 15:54 Urine Glucose (UA) Neg mg/dL (Negative) 10/03/16 15:54 Urine Ketones Neg mg/dL (Negative) 10/03/16 15:54 Urine Blood Lg (Negative) 10/03/16 15:54 Urine Nitrite Neg (Negative) 10/03/16 15:54 Urine Bilirubin Neg (Negative) 10/03/16 15:54 Urine Urobilinogen < 2.0 mg/dL (<2.0) 10/03/16 15:54 Ur Leukocyte Esterase Tr (Negative) 10/03/16 15:54 Urine WBC (Auto) 21.0 /HPF (0.0-6.0) H 10/03/16 15:54 Urine RBC (Auto) 65.0 /HPF (0.0-6.0) 10/03/16 15:54 U Epithel Cells (Auto) 2.0 /HPF (0-13.0) 10/03/16 15:54 Urine Bacteria (Auto) 3+ /HPF (Negative) 10/03/16 15:54 Amorphous Crystals 1+ 10/03/16 15:54 Urine Mucus Few /HPF 10/03/16 15:54 Urine Creatinine 63.2 mg/dL (0.1-20.0) H 10/03/16 15:54 Urine Sodium 20 mEq/L 10/03/16 15:54 Urine Total Protein 67 mg/dL (5-11.8) H 10/03/16 15:54 Vancomycin Trough 45.5 ug/mL (5.0-20.0) H 10/04/16 12:39 Random Vancomycin 14.9 ug/mL (0-40.0) 10/07/16 05:25 Lymph Enumerat CD4/CD8 2.87 (0.86-5.00) 10/10/16 13:03 % CD3 Cells 73 % (57-85) 10/10/16 13:03 Absolute CD3 Count 2879 cells/uL (840-3060) 10/10/16 13:03 % CD4 Cells 55 % (30-61) 10/10/16 13:03 Absolute CD4 Count 2178 cells/uL (490-1740) H 10/10/16 13:03 % CD8 Cells 19 % (12-42) 10/10/16 13:03 Absolute CD8 Count 759 cells/uL (180-1170) 10/10/16 13:03 % CD19 Cells 21 % (6-29) 10/10/16 13:03 Absolute CD19 Count 824 cells/uL (110-660) H 10/10/16 13:03 Blood Type O POSITIVE 10/09/16 10:00 Antibody Screen TNR 10/01/16 00:55 DEACON Antibody Screen Negative 10/09/16 10:00 Crossmatch See Detail 10/09/16 10:00
[2016-10-13 10:02] LABS: Basophils % (Manual) 0 % (0.0-1.8); Blastocytes % (Manual) 0 %; Eosinophils % (Manual) 0.5 % (0.0-4.3)
[2016-10-13 10:04] LABS: Anisocytosis 1+; Stomatocytes 1+
[2016-10-13 10:05] LABS: Diff Status Complete; Platelet Estimate Consistent w Auto
[2016-10-13] MEDS: D5W 1,000 ML IV SCH (10:22)
[2016-10-13] MEDS: BROVANA NEBU IH SCH ×2 (10:42→20:00)
[2016-10-13] MEDS: PULMICORT IH SCH ×2 (10:43→20:00)
--- NOTE | 2016-10-13 11:04 | Progress Note ---
Assessment and Plan .Patient is still on APRV. Patient still having slight increased work of breathing.Patient sedated. Not responding to verbal stimuli.Patient is on P high 40, Plow 16, Fio2 45%. O2 satuaration 97%.Patients general condition remain same as yesterday. I spent critical care time of 45 minutes on this patient. review the chart, examining the patient, review labs, chest xray, talking to the respiratory therapy and nursing staff and work out plan of treatment. - Patient Problems (1) Sepsis Current Visit: Yes Status: Acute Qualifiers: Sepsis type: sepsis due to unspecified organism Qualified Code(s): A41.9 - Sepsis, unspecified organism Plan to address problem: Patient is on Metranidazole. Management as per infectious diseases. (2) Pulmonary infiltrates on CXR Current Visit: Yes Status: Acute Plan to address problem: Could be pulmonary edema related to ARDS and pneumonia.. (3) Acute respiratory failure with hypoxia Current Visit: Yes Status: Acute Plan to address problem: Patient is on APRV.P High 40, P Low 16, FIO2 45% Albuterol/atrovent aerosol treatments q 6 hours prn. Brovanna?Budenoside aerosol treatments q 12 hours. Continue S/C Lovenox. Continue Pepcid. Repeating blood gases today. (4) Acute renal failure due to tubular necrosis Current Visit: Yes Status: Acute Plan to address problem: Management as per nephrology. Subjective Date of service: 10/13/16 Principal diagnosis: Acute Hypoxemic Respiratory Failure; ARDS Interval history: Patient is still on APRV. Patient still having slight increased work of breathing.Patient sedated. Not responding to verbal stimuli.Patient is on P high 40, Plow 16, Fio2 45%. O2 satuaration 97.%.General condition remain same as yesterday. Objective Vital Signs - 12hr 10/12/16 10/12/16 10/12/16 23:10 23:20 23:30 Temperature Pulse Rate 110 H 110 H 111 H Respiratory 20 19 19 Rate Blood Pressure 108/64 118/68 118/68 O2 Sat by Pulse 94 95 92 Oximetry 10/12/16 10/12/16 10/13/16 23:40 23:50 00:00 Temperature 98.9 F Pulse Rate 110 H 111 H 111 H Respiratory 19 20 20 Rate Blood Pressure 118/68 118/68 118/68 O2 Sat by Pulse 95 94 92 Oximetry 10/13/16 10/13/16 10/13/16 00:10 00:11 00:20 Temperature Pulse Rate 110 H 111 H 111 H Respiratory 19 19 Rate Blood Pressure 118/68 112/63 118/68 O2 Sat by Pulse 94 95 94 Oximetry 10/13/16 10/13/16 10/13/16 00:30 00:40 00:50 Temperature Pulse Rate 111 H 110 H 110 H Respiratory 20 19 20 Rate Blood Pressure 118/68 118/68 118/68 O2 Sat by Pulse 94 94 94 Oximetry 10/13/16 10/13/16 10/13/16 01:00 01:10 01:20 Temperature Pulse Rate 112 H 111 H 113 H Respiratory 20 20 19 Rate Blood Pressure 118/68 118/68 118/68 O2 Sat by Pulse 94 94 94 Oximetry 10/13/16 10/13/16 10/13/16 01:30 01:40 01:50 Temperature Pulse Rate 111 H 110 H 111 H Respiratory 22 21 21 Rate Blood Pressure 118/68 118/68 118/68 O2 Sat by Pulse 94 94 94 Oximetry 10/13/16 10/13/16 10/13/16 02:00 02:10 02:20 Temperature Pulse Rate 110 H 111 H 110 H Respiratory 21 20 21 Rate Blood Pressure 118/68 118/68 118/68 O2 Sat by Pulse 94 94 94 Oximetry 10/13/16 10/13/16 10/13/16 02:30 02:40 02:50 Temperature Pulse Rate 111 H 113 H 113 H Respiratory 21 22 21 Rate Blood Pressure 118/68 118/68 118/68 O2 Sat by Pulse 93 94 94 Oximetry 10/13/16 10/13/16 10/13/16 03:00 03:10 03:11 Temperature Pulse Rate 112 H 110 H 110 H Respiratory 22 20 Rate Blood Pressure 118/68 118/68 127/66 O2 Sat by Pulse 94 94 93 Oximetry 10/13/16 10/13/16 10/13/16 03:20 03:30 03:40 Temperature Pulse Rate 112 H 110 H 112 H Respiratory 20 21 25 H Rate Blood Pressure 127/66 112/62 112/62 O2 Sat by Pulse 94 94 93 Oximetry 10/13/16 10/13/16 10/13/16 03:50 04:00 04:10 Temperature Pulse Rate 111 H 114 H 114 H Respiratory 21 22 21 Rate Blood Pressure 112/62 120/67 120/67 O2 Sat by Pulse 94 90 93 Oximetry 10/13/16 10/13/16 10/13/16 04:20 04:30 04:40 Temperature Pulse Rate 113 H 112 H 112 H Respiratory 23 21 23 Rate Blood Pressure 120/67 113/66 113/66 O2 Sat by Pulse 94 93 93 Oximetry 10/13/16 10/13/16 10/13/16 04:50 05:00 05:10 Temperature Pulse Rate 110 H 111 H 110 H Respiratory 21 20 24 Rate Blood Pressure 113/66 114/65 114/65 O2 Sat by Pulse 93 93 94 Oximetry 10/13/16 10/13/16 10/13/16 05:20 05:30 05:40 Temperature Pulse Rate 111 H 101 H 109 H Respiratory 20 25 H 20 Rate Blood Pressure 114/65 100/70 100/70 O2 Sat by Pulse 94 96 98 Oximetry 10/13/16 10/13/16 10/13/16 05:50 06:00 06:10 Temperature Pulse Rate 110 H 111 H 110 H Respiratory 21 21 21 Rate Blood Pressure 100/70 121/67 121/67 O2 Sat by Pulse 90 89 92 Oximetry 10/13/16 10/13/16 10/13/16 06:20 06:30 06:40 Temperature Pulse Rate 109 H 110 H 109 H Respiratory 22 20 21 Rate Blood Pressure 121/67 103/64 103/64 O2 Sat by Pulse 93 94 94 Oximetry 10/13/16 10/13/16 10/13/16 06:50 07:00 07:10 Temperature Pulse Rate 111 H 111 H 109 H Respiratory 21 20 21 Rate Blood Pressure 103/64 110/65 110/65 O2 Sat by Pulse 94 92 95 Oximetry 10/13/16 10/13/16 10/13/16 07:20 07:30 07:40 Temperature Pulse Rate 109 H 109 H 110 H Respiratory 20 20 23 Rate Blood Pressure 110/65 113/64 113/64 O2 Sat by Pulse 95 95 94 Oximetry 10/13/16 10/13/16 10/13/16 07:50 08:00 08:10 Temperature 98.9 F Pulse Rate 106 H 108 H 104 H Respiratory 13 25 H Rate Blood Pressure 113/64 119/72 119/72 O2 Sat by Pulse 93 84 90 Oximetry 10/13/16 10/13/16 10/13/16 08:20 08:30 08:40 Temperature Pulse Rate 108 H 110 H Respiratory Rate Blood Pressure 119/72 120/72 120/72 O2 Sat by Pulse 92 Oximetry 10/13/16 10/13/16 10/13/16 08:50 09:00 09:10 Temperature Pulse Rate 110 H 106 H 107 H Respiratory Rate Blood Pressure 120/72 100/52 100/52 O2 Sat by Pulse 94 95 95 Oximetry 10/13/16 10/13/16 10/13/16 09:20 09:30 09:40 Temperature Pulse Rate 106 H 105 H 105 H Respiratory Rate Blood Pressure 100/52 119/64 100/52 O2 Sat by Pulse 96 94 95 Oximetry 10/13/16 10/13/16 10/13/16 09:50 10:00 10:10 Temperature Pulse Rate 105 H 106 H 107 H Respiratory Rate Blood Pressure 100/52 121/59 121/59 O2 Sat by Pulse 96 94 89 Oximetry 10/13/16 10/13/16 10/13/16 10:20 10:30 10:46 Temperature Pulse Rate 114 H 112 H 112 H Respiratory Rate Blood Pressure 121/59 112/58 112/58 O2 Sat by Pulse 90 92 93 Oximetry Constitutional: lethargic, appears uncomfortable, other (sedated) Eyes: non-icteric ENT: oropharynx moist Neck: supple, no lymphadenopathy Effort: mildly labored Ascultation: Bilateral: diminished breath sounds, rales, rhonchi Cardiovascular: regular rate and rhythm Gastrointestinal: normoactive bowel sounds, soft, non-tender, non-distended Integumentary: normal Extremities: no cyanosis, no edema, pulses normal, no ischemia or petechiae Neurologic: unable to assess Psychiatric: other (sedated now) CBC and BMP: 10/13/16 06:00 10/13/16 06:00 ABG, PT/INR, D-dimer: ABG POC ABG pH 7.281 (7.35-7.45) L 10/13/16 05:30 POC ABG pCO2 89.6 (35-45) H 10/13/16 05:30 POC ABG pO2 63 (80-105) L 10/13/16 05:30 POC ABG HCO3 42.2 10/13/16 05:30 POC ABG Total CO2 45 10/13/16 05:30 POC ABG O2 Sat 87 10/13/16 05:30 PT/INR, D-dimer PT 17.6 Sec. (12.2-14.9) H 10/10/16 13:03 INR 1.45 (0.87-1.13) H 10/10/16 13:03 D-Dimer 4758.12 ng/mlDDU (0-234) H 09/27/16 22:47 Abnormal lab findings: Abnormal Labs 09/20/16 09/20/16 09/20/16 10:35 10:35 10:35 WBC 11.7 H RBC Hgb Hct MCV 75 L MCH 24 L RDW 16.6 H Plt Count [place] # Baso # Seg Neutrophils % Seg Neuts % (Manual) Lymphocytes % (Manual) Monocytes % (Manual) Eosinophils % (Manual) Nucleated RBC % Seg Neutrophils # Seg Neutrophils # Man Abs Lymphs (Manual) Lymphocytes # (Manual) Monocytes # (Manual) Eosinophils # (Manual) Percent Retic PT INR 1.14 H D-Dimer POC ABG pH POC ABG pCO2 POC ABG pO2 Sodium Potassium Chloride Carbon Dioxide BUN Creatinine 0.5 L Glucose 115 H POC Glucose Lactic Acid Calcium Phosphorus Ferritin Total Bilirubin 2.0 H Lactate Dehydrogenase Total Creatine Kinase CK-MB (CK-2) C-Reactive Protein NT-Pro-B Natriuret Pep Total Protein Albumin Triglycerides Urine WBC (Auto) Urine Creatinine Urine Total Protein Vancomycin Trough Random Vancomycin Absolute CD4 Count Absolute CD19 Count Crossmatch 09/26/16 09/26/16 09/27/16 04:26 04:26 10:26 WBC RBC Hgb 8.9 L Hct 28.0 L MCV MCH RDW Plt Count [place] # Baso # Seg Neutrophils % Seg Neuts % (Manual) Lymphocytes % (Manual) Monocytes % (Manual) Eosinophils % (Manual) Nucleated RBC % Seg Neutrophils # Seg Neutrophils # Man Abs Lymphs (Manual) Lymphocytes # (Manual) Monocytes # (Manual) Eosinophils # (Manual) Percent Retic PT INR D-Dimer POC ABG pH 7.283 L POC ABG pCO2 45.3 H POC ABG pO2 79 L Sodium Potassium Chloride Carbon Dioxide 20 L BUN Creatinine Glucose 129 H POC Glucose Lactic Acid Calcium 7.6 L Phosphorus Ferritin Total Bilirubin Lactate Dehydrogenase Total Creatine Kinase CK-MB (CK-2) C-Reactive Protein NT-Pro-B Natriuret Pep Total Protein Albumin Triglycerides Urine WBC (Auto) Urine Creatinine Urine Total Protein Vancomycin Trough Random Vancomycin Absolute CD4 Count Absolute CD19 Count Crossmatch 09/27/16 09/27/16 09/27/16 14:40 14:40 15:14 WBC 39.3 H RBC Hgb 9.3 L Hct 28.9 L MCV 75 L MCH 24 L RDW 18.7 H Plt Count [place] # Baso # Seg Neutrophils % Seg Neuts % (Manual) 93.5 H Lymphocytes % (Manual) 5.0 L Monocytes % (Manual) Eosinophils % (Manual) Nucleated RBC % Seg Neutrophils # Seg Neutrophils # Man 36.7 H Abs Lymphs (Manual) Lymphocytes # (Manual) Monocytes # (Manual) Eosinophils # (Manual) Percent Retic PT INR D-Dimer POC ABG pH POC ABG pCO2 POC ABG pO2 Sodium Potassium Chloride Carbon Dioxide BUN Creatinine Glucose POC Glucose Lactic Acid 2.9 H* Calcium Phosphorus Ferritin Total Bilirubin Lactate Dehydrogenase Total Creatine Kinase 3575 H CK-MB (CK-2) 11.0 H C-Reactive Protein 16.10 H NT-Pro-B Natriuret Pep Total Protein Albumin Triglycerides Urine WBC (Auto) Urine Creatinine Urine Total Protein Vancomycin Trough Random Vancomycin Absolute CD4 Count Absolute CD19 Count Crossmatch 09/27/16 09/27/16 09/27/16 18:05 22:47 22:47 WBC RBC Hgb Hct MCV MCH RDW Plt Count [place] # Baso # Seg Neutrophils % Seg Neuts % (Manual) Lymphocytes % (Manual) Monocytes % (Manual) Eosinophils % (Manual) Nucleated RBC % Seg Neutrophils # Seg Neutrophils # Man Abs Lymphs (Manual) Lymphocytes # (Manual) Monocytes # (Manual) Eosinophils # (Manual) Percent Retic PT INR D-Dimer 4758.12 H POC ABG pH POC ABG pCO2 POC ABG pO2 70 L Sodium Potassium Chloride Carbon Dioxide BUN Creatinine Glucose POC Glucose Lactic Acid Calcium Phosphorus Ferritin Total Bilirubin Lactate Dehydrogenase 829 H Total Creatine Kinase CK-MB (CK-2) C-Reactive Protein NT-Pro-B Natriuret Pep Total Protein Albumin Triglycerides Urine WBC (Auto) Urine Creatinine Urine Total Protein Vancomycin Trough Random Vancomycin Absolute CD4 Count Absolute CD19 Count Crossmatch 09/27/16 09/28/16 09/28/16 22:47 09:20 10:47 WBC RBC Hgb Hct MCV MCH RDW Plt Count [place] # Baso # Seg Neutrophils % Seg Neuts % (Manual) Lymphocytes % (Manual) Monocytes % (Manual) Eosinophils % (Manual) Nucleated RBC % Seg Neutrophils # Seg Neutrophils # Man Abs Lymphs (Manual) Lymphocytes # (Manual) Monocytes # (Manual) Eosinophils # (Manual) Percent Retic 8.11 H PT INR D-Dimer POC ABG pH POC ABG pCO2 47.2 H POC ABG pO2 70 L Sodium Potassium Chloride Carbon Dioxide BUN Creatinine 0.6 L Glucose 137 H POC Glucose Lactic Acid Calcium Phosphorus Ferritin Total Bilirubin Lactate Dehydrogenase Total Creatine Kinase CK-MB (CK-2) C-Reactive Protein NT-Pro-B Natriuret Pep Total Protein Albumin Triglycerides Urine WBC (Auto) Urine Creatinine Urine Total Protein Vancomycin Trough Random Vancomycin Absolute CD4 Count Absolute CD19 Count Crossmatch 09/28/16 09/30/16 09/30/16 10:47 11:01 14:05 WBC 30.3 H RBC 3.27 L Hgb 8.1 L Hct 24.4 L MCV 75 L MCH 25 L RDW 18.9 H Plt Count [place] # Baso # Seg Neutrophils % Seg Neuts % (Manual) Lymphocytes % (Manual) 12.0 L Monocytes % (Manual) Eosinophils % (Manual) Nucleated RBC % 5.0 H Seg Neutrophils # Seg Neutrophils # Man 21.2 H Abs Lymphs (Manual) Lymphocytes # (Manual) Monocytes # (Manual) 1.8 H Eosinophils # (Manual) Percent Retic PT INR D-Dimer POC ABG pH POC ABG pCO2 48.8 H POC ABG pO2 52 L Sodium Potassium Chloride Carbon Dioxide BUN Creatinine Glucose POC Glucose Lactic Acid Calcium Phosphorus Ferritin Total Bilirubin Lactate Dehydrogenase Total Creatine Kinase CK-MB (CK-2) C-Reactive Protein NT-Pro-B Natriuret Pep 2018 H Total Protein Albumin Triglycerides Urine WBC (Auto) Urine Creatinine Urine Total Protein Vancomycin Trough Random Vancomycin Absolute CD4 Count Absolute CD19 Count Crossmatch 09/30/16 09/30/16 09/30/16 14:05 14:05 14:05 WBC 22.1 H RBC 2.76 L Hgb 6.9 L Hct 20.6 L MCV 75 L MCH 25 L RDW 18.7 H Plt Count [place] # Baso # Seg Neutrophils % Seg Neuts % (Manual) 74.0 H Lymphocytes % (Manual) 7.0 L Monocytes % (Manual) Eosinophils % (Manual) Nucleated RBC % 52.0 H Seg Neutrophils # Seg Neutrophils # Man 16.4 H Abs Lymphs (Manual) Lymphocytes # (Manual) Monocytes # (Manual) Eosinophils # (Manual) Percent Retic PT INR D-Dimer POC ABG pH POC ABG pCO2 POC ABG pO2 Sodium Potassium 3.1 L Chloride Carbon Dioxide BUN Creatinine 0.5 L Glucose 116 H POC Glucose Lactic Acid Calcium 8.2 L Phosphorus Ferritin Total Bilirubin Lactate Dehydrogenase Total Creatine Kinase CK-MB (CK-2) C-Reactive Protein 30.80 H NT-Pro-B Natriuret Pep Total Protein Albumin Triglycerides Urine WBC (Auto) Urine Creatinine Urine Total Protein Vancomycin Trough Random Vancomycin Absolute CD4 Count Absolute CD19 Count Crossmatch 09/30/16 10/01/16 10/01/16 14:33 00:55 00:55 WBC 26.1 H RBC 2.80 L Hgb 6.8 L Hct 20.8 L MCV 74 L MCH 24 L RDW 18.6 H Plt Count [place] # Baso # Seg Neutrophils % Seg Neuts % (Manual) 85.0 H Lymphocytes % (Manual) 11.0 L Monocytes % (Manual) Eosinophils % (Manual) Nucleated RBC % 21.0 H Seg Neutrophils # Seg Neutrophils # Man 22.2 H Abs Lymphs (Manual) Lymphocytes # (Manual) Monocytes # (Manual) 1.0 H Eosinophils # (Manual) Percent Retic PT INR D-Dimer POC ABG pH POC ABG pCO2 47.8 H POC ABG pO2 201 H Sodium Potassium Chloride Carbon Dioxide BUN Creatinine Glucose POC Glucose Lactic Acid Calcium Phosphorus Ferritin Total Bilirubin Lactate Dehydrogenase Total Creatine Kinase CK-MB (CK-2) C-Reactive Protein NT-Pro-B Natriuret Pep Total Protein Albumin Triglycerides Urine WBC (Auto) Urine Creatinine Urine Total Protein Vancomycin Trough Random Vancomycin Absolute CD4 Count Absolute CD19 Count Crossmatch See Detail 10/01/16 10/01/16 10/01/16 04:57 05:00 13:01 WBC RBC Hgb Hct MCV MCH RDW Plt Count [place] # Baso # Seg Neutrophils % Seg Neuts % (Manual) Lymphocytes % (Manual) Monocytes % (Manual) Eosinophils % (Manual) Nucleated RBC % Seg Neutrophils # Seg Neutrophils # Man Abs Lymphs (Manual) Lymphocytes # (Manual) Monocytes # (Manual) Eosinophils # (Manual) Percent Retic PT INR D-Dimer POC ABG pH POC ABG pCO2 58.5 H POC ABG pO2 149 H Sodium 149 H Potassium 3.0 L Chloride Carbon Dioxide BUN Creatinine Glucose POC Glucose 120 H Lactic Acid Calcium 8.3 L Phosphorus Ferritin Total Bilirubin Lactate Dehydrogenase Total Creatine Kinase CK-MB (CK-2) C-Reactive Protein NT-Pro-B Natriuret Pep Total Protein Albumin Triglycerides Urine WBC (Auto) Urine Creatinine Urine Total Protein Vancomycin Trough Random Vancomycin Absolute CD4 Count Absolute CD19 Count Crossmatch 10/01/16 10/01/16 10/01/16 15:43 17:44 23:37 WBC 27.6 H RBC 3.55 L Hgb 8.9 L Hct 27.6 L D MCV 78 L D MCH 25 L RDW 18.1 H Plt Count [place] # Baso # Seg Neutrophils % Seg Neuts % (Manual) 79.5 H Lymphocytes % (Manual) 8.0 L Monocytes % (Manual) Eosinophils % (Manual) Nucleated RBC % 65.0 H Seg Neutrophils # Seg Neutrophils # Man 21.9 H Abs Lymphs (Manual) Lymphocytes # (Manual) Monocytes # (Manual) 1.0 H Eosinophils # (Manual) Percent Retic PT INR D-Dimer POC ABG pH POC ABG pCO2 POC ABG pO2 Sodium Potassium Chloride Carbon Dioxide BUN Creatinine Glucose POC Glucose 121 H 129 H Lactic Acid Calcium Phosphorus Ferritin Total Bilirubin Lactate Dehydrogenase Total Creatine Kinase CK-MB (CK-2) C-Reactive Protein NT-Pro-B Natriuret Pep Total Protein Albumin Triglycerides Urine WBC (Auto) Urine Creatinine Urine Total Protein Vancomycin Trough Random Vancomycin Absolute CD4 Count Absolute CD19 Count Crossmatch 10/02/16 10/02/16 10/02/16 05:05 05:40 06:00 WBC 23.0 H RBC 3.30 L Hgb 8.3 L Hct 25.8 L MCV 78 L MCH 25 L RDW 18.2 H Plt Count [place] # Baso # Seg Neutrophils % Seg Neuts % (Manual) 83.5 H Lymphocytes % (Manual) 4.0 L Monocytes % (Manual) Eosinophils % (Manual) Nucleated RBC % 14.5 H Seg Neutrophils # Seg Neutrophils # Man 25.1 H Abs Lymphs (Manual) Lymphocytes # (Manual) Monocytes # (Manual) 1.7 H Eosinophils # (Manual) Percent Retic PT INR D-Dimer POC ABG pH POC ABG pCO2 50.5 H POC ABG pO2 Sodium Potassium Chloride Carbon Dioxide BUN Creatinine Glucose POC Glucose 123 H Lactic Acid Calcium Phosphorus Ferritin Total Bilirubin Lactate Dehydrogenase Total Creatine Kinase CK-MB (CK-2) C-Reactive Protein NT-Pro-B Natriuret Pep Total Protein Albumin Triglycerides Urine WBC (Auto) Urine Creatinine Urine Total Protein Vancomycin Trough Random Vancomycin Absolute CD4 Count Absolute CD19 Count Crossmatch 10/02/16 10/02/16 10/02/16 06:00 11:42 21:52 WBC RBC Hgb Hct MCV MCH RDW Plt Count [place] # Baso # Seg Neutrophils % Seg Neuts % (Manual) Lymphocytes % (Manual) Monocytes % (Manual) Eosinophils % (Manual) Nucleated RBC % Seg Neutrophils # Seg Neutrophils # Man Abs Lymphs (Manual) Lymphocytes # (Manual) Monocytes # (Manual) Eosinophils # (Manual) Percent Retic PT INR D-Dimer POC ABG pH 7.324 L POC ABG pCO2 60.5 H POC ABG pO2 74 L Sodium 150 H Potassium Chloride 108.3 H Carbon Dioxide BUN 20 H Creatinine 1.4 H D Glucose 117 H POC Glucose 135 H Lactic Acid Calcium Phosphorus Ferritin Total Bilirubin Lactate Dehydrogenase Total Creatine Kinase CK-MB (CK-2) C-Reactive Protein NT-Pro-B Natriuret Pep Total Protein Albumin Triglycerides Urine WBC (Auto) Urine Creatinine Urine Total Protein Vancomycin Trough Random Vancomycin Absolute CD4 Count Absolute CD19 Count Crossmatch 10/02/16 10/03/16 10/03/16 23:26 05:55 08:17 WBC 32.0 H RBC 3.13 L Hgb 7.9 L Hct 24.6 L MCV MCH 25 L RDW 18.9 H Plt Count 132 L [place] # Baso # Seg Neutrophils % Seg Neuts % (Manual) 75.0 H Lymphocytes % (Manual) 5.0 L Monocytes % (Manual) Eosinophils % (Manual) Nucleated RBC % 26.0 H Seg Neutrophils # Seg Neutrophils # Man 24.0 H Abs Lymphs (Manual) Lymphocytes # (Manual) Monocytes # (Manual) 1.0 H Eosinophils # (Manual) 1.0 H Percent Retic PT INR D-Dimer POC ABG pH POC ABG pCO2 POC ABG pO2 Sodium Potassium Chloride Carbon Dioxide BUN Creatinine Glucose POC Glucose 121 H 145 H Lactic Acid Calcium Phosphorus Ferritin Total Bilirubin Lactate Dehydrogenase Total Creatine Kinase CK-MB (CK-2) C-Reactive Protein NT-Pro-B Natriuret Pep Total Protein Albumin Triglycerides Urine WBC (Auto) Urine Creatinine Urine Total Protein Vancomycin Trough Random Vancomycin Absolute CD4 Count Absolute CD19 Count Crossmatch 10/03/16 10/03/16 10/03/16 08:17 09:26 11:34 WBC RBC Hgb Hct MCV MCH RDW Plt Count [place] # Baso # Seg Neutrophils % Seg Neuts % (Manual) Lymphocytes % (Manual) Monocytes % (Manual) Eosinophils % (Manual) Nucleated RBC % Seg Neutrophils # Seg Neutrophils # Man Abs Lymphs (Manual) Lymphocytes # (Manual) Monocytes # (Manual) Eosinophils # (Manual) Percent Retic PT INR D-Dimer POC ABG pH 7.274 L POC ABG pCO2 59.7 H POC ABG pO2 58 L Sodium 147 H Potassium Chloride 107.6 H Carbon Dioxide BUN 31 H Creatinine 1.7 H Glucose 118 H POC Glucose 142 H Lactic Acid Calcium Phosphorus Ferritin Total Bilirubin Lactate Dehydrogenase Total Creatine Kinase CK-MB (CK-2) C-Reactive Protein NT-Pro-B Natriuret Pep Total Protein Albumin Triglycerides Urine WBC (Auto) Urine Creatinine Urine Total Protein Vancomycin Trough Random Vancomycin Absolute CD4 Count Absolute CD19 Count Crossmatch 10/03/16 10/03/16 10/03/16 15:54 15:54 16:58 WBC RBC Hgb Hct MCV MCH RDW Plt Count [place] # Baso # Seg Neutrophils % Seg Neuts % (Manual) Lymphocytes % (Manual) Monocytes % (Manual) Eosinophils % (Manual) Nucleated RBC % Seg Neutrophils # Seg Neutrophils # Man Abs Lymphs (Manual) Lymphocytes # (Manual) Monocytes # (Manual) Eosinophils # (Manual) Percent Retic PT INR D-Dimer POC ABG pH POC ABG pCO2 POC ABG pO2 Sodium Potassium Chloride Carbon Dioxide BUN Creatinine Glucose POC Glucose 138 H Lactic Acid Calcium Phosphorus Ferritin Total Bilirubin Lactate Dehydrogenase Total Creatine Kinase CK-MB (CK-2) C-Reactive Protein NT-Pro-B Natriuret Pep Total Protein Albumin Triglycerides Urine WBC (Auto) 21.0 H Urine Creatinine 63.2 H Urine Total Protein 67 H Vancomycin Trough Random Vancomycin Absolute CD4 Count Absolute CD19 Count Crossmatch 10/03/16 10/03/16 10/04/16 21:37 23:44 04:00 WBC 30.3 H RBC 2.86 L Hgb 7.3 L Hct 22.6 L MCV MCH 25 L RDW 19.6 H Plt Count 125 L [place] # Baso # Seg Neutrophils % Seg Neuts % (Manual) Lymphocytes % (Manual) 12.0 L Monocytes % (Manual) Eosinophils % (Manual) 5.0 H Nucleated RBC % 30.0 H Seg Neutrophils # Seg Neutrophils # Man 12.7 H Abs Lymphs (Manual) Lymphocytes # (Manual) Monocytes # (Manual) 1.2 H Eosinophils # (Manual) 1.5 H Percent Retic PT INR D-Dimer POC ABG pH 7.271 L POC ABG pCO2 61.7 H POC ABG pO2 77 L Sodium Potassium Chloride Carbon Dioxide BUN Creatinine Glucose POC Glucose 130 H Lactic Acid Calcium Phosphorus Ferritin Total Bilirubin Lactate Dehydrogenase Total Creatine Kinase CK-MB (CK-2) C-Reactive Protein NT-Pro-B Natriuret Pep Total Protein Albumin Triglycerides Urine WBC (Auto) Urine Creatinine Urine Total Protein Vancomycin Trough Random Vancomycin Absolute CD4 Count Absolute CD19 Count Crossmatch 10/04/16 10/04/16 10/04/16 04:03 06:02 12:29 WBC RBC Hgb Hct MCV MCH RDW Plt Count [place] # Baso # Seg Neutrophils % Seg Neuts % (Manual) Lymphocytes % (Manual) Monocytes % (Manual) Eosinophils % (Manual) Nucleated RBC % Seg Neutrophils # Seg Neutrophils # Man Abs Lymphs (Manual) Lymphocytes # (Manual) Monocytes # (Manual) Eosinophils # (Manual) Percent Retic PT INR D-Dimer POC ABG pH 7.248 L POC ABG pCO2 62.3 H POC ABG pO2 59 L Sodium Potassium Chloride Carbon Dioxide BUN 40 H Creatinine 1.7 H Glucose 110 H POC Glucose 123 H Lactic Acid Calcium Phosphorus Ferritin Total Bilirubin Lactate Dehydrogenase Total Creatine Kinase CK-MB (CK-2) C-Reactive Protein NT-Pro-B Natriuret Pep Total Protein 5.6 L Albumin 2.1 L Triglycerides Urine WBC (Auto) Urine Creatinine Urine Total Protein Vancomycin Trough Random Vancomycin Absolute CD4 Count Absolute CD19 Count Crossmatch 10/04/16 10/04/16 10/04/16 12:39 15:14 17:45 WBC RBC Hgb Hct MCV MCH RDW Plt Count [place] # Baso # Seg Neutrophils % Seg Neuts % (Manual) Lymphocytes % (Manual) Monocytes % (Manual) Eosinophils % (Manual) Nucleated RBC % Seg Neutrophils # Seg Neutrophils # Man Abs Lymphs (Manual) Lymphocytes # (Manual) Monocytes # (Manual) Eosinophils # (Manual) Percent Retic PT INR D-Dimer POC ABG pH POC ABG pCO2 POC ABG pO2 109 H Sodium Potassium Chloride Carbon Dioxide BUN Creatinine Glucose POC Glucose 124 H Lactic Acid Calcium Phosphorus Ferritin Total Bilirubin Lactate Dehydrogenase Total Creatine Kinase CK-MB (CK-2) C-Reactive Protein NT-Pro-B Natriuret Pep Total Protein Albumin Triglycerides Urine WBC (Auto) Urine Creatinine Urine Total Protein Vancomycin Trough 45.5 H Random Vancomycin Absolute CD4 Count Absolute CD19 Count Crossmatch 10/04/16 10/04/16 10/05/16 20:13 23:05 01:27 WBC 36.1 H RBC 2.99 L Hgb 7.3 L Hct 23.5 L MCV MCH 25 L RDW 19.6 H Plt Count [place] # Baso # Seg Neutrophils % Seg Neuts % (Manual) Lymphocytes % (Manual) Monocytes % (Manual) Eosinophils % (Manual) Nucleated RBC % Seg Neutrophils # Seg Neutrophils # Man Abs Lymphs (Manual) Lymphocytes # (Manual) Monocytes # (Manual) Eosinophils # (Manual) Percent Retic PT INR D-Dimer POC ABG pH 7.341 L POC ABG pCO2 POC ABG pO2 47 L Sodium Potassium Chloride Carbon Dioxide BUN Creatinine Glucose POC Glucose 127 H Lactic Acid Calcium Phosphorus Ferritin Total Bilirubin Lactate Dehydrogenase Total Creatine Kinase CK-MB (CK-2) C-Reactive Protein NT-Pro-B Natriuret Pep Total Protein Albumin Triglycerides Urine WBC (Auto) Urine Creatinine Urine Total Protein Vancomycin Trough Random Vancomycin Absolute CD4 Count Absolute CD19 Count Crossmatch 10/05/16 10/05/16 10/05/16 01:27 03:50 05:00 WBC RBC Hgb Hct MCV MCH RDW Plt Count [place] # Baso # Seg Neutrophils % Seg Neuts % (Manual) Lymphocytes % (Manual) Monocytes % (Manual) Eosinophils % (Manual) Nucleated RBC % Seg Neutrophils # Seg Neutrophils # Man Abs Lymphs (Manual) Lymphocytes # (Manual) Monocytes # (Manual) Eosinophils # (Manual) Percent Retic PT INR D-Dimer POC ABG pH 7.330 L POC ABG pCO2 45.3 H POC ABG pO2 53 L Sodium Potassium Chloride Carbon Dioxide BUN 49 H Creatinine 1.6 H Glucose 112 H POC Glucose Lactic Acid Calcium Phosphorus Ferritin Total Bilirubin Lactate Dehydrogenase Total Creatine Kinase CK-MB (CK-2) C-Reactive Protein NT-Pro-B Natriuret Pep Total Protein Albumin Triglycerides Urine WBC (Auto) Urine Creatinine Urine Total Protein Vancomycin Trough Random Vancomycin 43.6 H Absolute CD4 Count Absolute CD19 Count Crossmatch 10/05/16 10/05/16 10/05/16 05:30 12:08 14:00 WBC RBC Hgb Hct MCV MCH RDW Plt Count [place] # Baso # Seg Neutrophils % Seg Neuts % (Manual) Lymphocytes % (Manual) Monocytes % (Manual) Eosinophils % (Manual) Nucleated RBC % Seg Neutrophils # Seg Neutrophils # Man Abs Lymphs (Manual) Lymphocytes # (Manual) Monocytes # (Manual) Eosinophils # (Manual) Percent Retic PT INR D-Dimer POC ABG pH POC ABG pCO2 POC ABG pO2 Sodium Potassium Chloride Carbon Dioxide BUN Creatinine Glucose POC Glucose 141 H 149 H Lactic Acid Calcium Phosphorus Ferritin Total Bilirubin Lactate Dehydrogenase Total Creatine Kinase CK-MB (CK-2) C-Reactive Protein 28.40 H NT-Pro-B Natriuret Pep Total Protein Albumin Triglycerides Urine WBC (Auto) Urine Creatinine Urine Total Protein Vancomycin Trough Random Vancomycin Absolute CD4 Count Absolute CD19 Count Crossmatch 10/05/16 10/05/16 10/05/16 15:37 16:41 17:15 WBC RBC Hgb Hct MCV MCH RDW Plt Count [place] # Baso # Seg Neutrophils % Seg Neuts % (Manual) Lymphocytes % (Manual) Monocytes % (Manual) Eosinophils % (Manual) Nucleated RBC % Seg Neutrophils # Seg Neutrophils # Man Abs Lymphs (Manual) Lymphocytes # (Manual) Monocytes # (Manual) Eosinophils # (Manual) Percent Retic PT INR D-Dimer POC ABG pH 7.157 L 7.133 L POC ABG pCO2 75.0 H 80.5 H POC ABG pO2 76 L Sodium Potassium Chloride Carbon Dioxide BUN Creatinine Glucose POC Glucose 151 H Lactic Acid Calcium Phosphorus Ferritin Total Bilirubin Lactate Dehydrogenase Total Creatine Kinase CK-MB (CK-2) C-Reactive Protein NT-Pro-B Natriuret Pep Total Protein Albumin Triglycerides Urine WBC (Auto) Urine Creatinine Urine Total Protein Vancomycin Trough Random Vancomycin Absolute CD4 Count Absolute CD19 Count Crossmatch 10/05/16 10/05/16 10/06/16 19:58 23:50 03:57 WBC 45.3 H* RBC 3.08 L Hgb 7.5 L Hct 24.5 L MCV MCH 25 L RDW 20.1 H Plt Count [place] # Baso # Seg Neutrophils % Seg Neuts % (Manual) 24.0 L Lymphocytes % (Manual) 10.0 L Monocytes % (Manual) Eosinophils % (Manual) Nucleated RBC % 36.0 H Seg Neutrophils # Seg Neutrophils # Man 10.9 H Abs Lymphs (Manual) Lymphocytes # (Manual) Monocytes # (Manual) 3.2 H Eosinophils # (Manual) 0.5 H Percent Retic PT INR D-Dimer POC ABG pH 7.198 L POC ABG pCO2 69.5 H POC ABG pO2 Sodium Potassium Chloride Carbon Dioxide BUN Creatinine Glucose POC Glucose 160 H Lactic Acid Calcium Phosphorus Ferritin Total Bilirubin Lactate Dehydrogenase Total Creatine Kinase CK-MB (CK-2) C-Reactive Protein NT-Pro-B Natriuret Pep Total Protein Albumin Triglycerides Urine WBC (Auto) Urine Creatinine Urine Total Protein Vancomycin Trough Random Vancomycin Absolute CD4 Count Absolute CD19 Count Crossmatch 10/06/16 10/06/16 10/06/16 03:57 05:38 06:08 WBC RBC Hgb Hct MCV MCH RDW Plt Count [place] # Baso # Seg Neutrophils % Seg Neuts % (Manual) Lymphocytes % (Manual) Monocytes % (Manual) Eosinophils % (Manual) Nucleated RBC % Seg Neutrophils # Seg Neutrophils # Man Abs Lymphs (Manual) Lymphocytes # (Manual) Monocytes # (Manual) Eosinophils # (Manual) Percent Retic PT INR D-Dimer POC ABG pH 7.226 L POC ABG pCO2 63.3 H POC ABG pO2 Sodium 152 H D Potassium Chloride 114.1 H Carbon Dioxide BUN 58 H Creatinine 1.6 H Glucose 123 H POC Glucose 129 H Lactic Acid Calcium Phosphorus Ferritin Total Bilirubin Lactate Dehydrogenase Total Creatine Kinase CK-MB (CK-2) C-Reactive Protein NT-Pro-B Natriuret Pep Total Protein Albumin Triglycerides Urine WBC (Auto) Urine Creatinine Urine Total Protein Vancomycin Trough Random Vancomycin Absolute CD4 Count Absolute CD19 Count Crossmatch 10/06/16 10/06/16 10/06/16 11:38 14:31 18:10 WBC RBC Hgb Hct MCV MCH RDW Plt Count [place] # Baso # Seg Neutrophils % Seg Neuts % (Manual) Lymphocytes % (Manual) Monocytes % (Manual) Eosinophils % (Manual) Nucleated RBC % Seg Neutrophils # Seg Neutrophils # Man Abs Lymphs (Manual) Lymphocytes # (Manual) Monocytes # (Manual) Eosinophils # (Manual) Percent Retic PT INR D-Dimer POC ABG pH 7.345 L POC ABG pCO2 49.5 H POC ABG pO2 60 L Sodium Potassium Chloride Carbon Dioxide BUN Creatinine Glucose POC Glucose 126 H 196 H Lactic Acid Calcium Phosphorus Ferritin Total Bilirubin Lactate Dehydrogenase Total Creatine Kinase CK-MB (CK-2) C-Reactive Protein NT-Pro-B Natriuret Pep Total Protein Albumin Triglycerides Urine WBC (Auto) Urine Creatinine Urine Total Protein Vancomycin Trough Random Vancomycin Absolute CD4 Count Absolute CD19 Count Crossmatch 10/06/16 10/07/16 10/07/16 21:07 00:55 00:55 WBC 55.1 H* RBC 3.06 L Hgb 7.5 L Hct 24.4 L MCV MCH 24 L RDW 20.7 H Plt Count [place] # Baso # Seg Neutrophils % Seg Neuts % (Manual) Lymphocytes % (Manual) 8.0 L Monocytes % (Manual) 9.0 H Eosinophils % (Manual) Nucleated RBC % 30.0 H Seg Neutrophils # Seg Neutrophils # Man 27.0 H Abs Lymphs (Manual) Lymphocytes # (Manual) Monocytes # (Manual) 5.0 H Eosinophils # (Manual) 0.6 H Percent Retic PT INR D-Dimer POC ABG pH 7.317 L POC ABG pCO2 55.2 H POC ABG pO2 59 L Sodium 148 H Potassium Chloride 110.2 H Carbon Dioxide BUN 56 H Creatinine 1.7 H Glucose 211 H POC Glucose Lactic Acid Calcium Phosphorus Ferritin Total Bilirubin Lactate Dehydrogenase Total Creatine Kinase CK-MB (CK-2) C-Reactive Protein NT-Pro-B Natriuret Pep Total Protein Albumin Triglycerides Urine WBC (Auto) Urine Creatinine Urine Total Protein Vancomycin Trough Random Vancomycin Absolute CD4 Count Absolute CD19 Count Crossmatch 10/07/16 10/07/16 10/07/16 01:01 05:20 06:31 WBC RBC Hgb Hct MCV MCH RDW Plt Count [place] # Baso # Seg Neutrophils % Seg Neuts % (Manual) Lymphocytes % (Manual) Monocytes % (Manual) Eosinophils % (Manual) Nucleated RBC % Seg Neutrophils # Seg Neutrophils # Man Abs Lymphs (Manual) Lymphocytes # (Manual) Monocytes # (Manual) Eosinophils # (Manual) Percent Retic PT INR D-Dimer POC ABG pH 7.310 L POC ABG pCO2 55.6 H POC ABG pO2 65 L Sodium Potassium Chloride Carbon Dioxide BUN Creatinine Glucose POC Glucose 249 H 235 H Lactic Acid Calcium Phosphorus Ferritin Total Bilirubin Lactate Dehydrogenase Total Creatine Kinase CK-MB (CK-2) C-Reactive Protein NT-Pro-B Natriuret Pep Total Protein Albumin Triglycerides Urine WBC (Auto) Urine Creatinine Urine Total Protein Vancomycin Trough Random Vancomycin Absolute CD4 Count Absolute CD19 Count Crossmatch 10/07/16 10/07/16 10/07/16 12:00 18:04 23:48 WBC RBC Hgb Hct MCV MCH RDW Plt Count [place] # Baso # Seg Neutrophils % Seg Neuts % (Manual) Lymphocytes % (Manual) Monocytes % (Manual) Eosinophils % (Manual) Nucleated RBC % Seg Neutrophils # Seg Neutrophils # Man Abs Lymphs (Manual) Lymphocytes # (Manual) Monocytes # (Manual) Eosinophils # (Manual) Percent Retic PT INR D-Dimer POC ABG pH POC ABG pCO2 POC ABG pO2 Sodium Potassium Chloride Carbon Dioxide BUN Creatinine Glucose POC Glucose 210 H 201 H 163 H Lactic Acid Calcium Phosphorus Ferritin Total Bilirubin Lactate Dehydrogenase Total Creatine Kinase CK-MB (CK-2) C-Reactive Protein NT-Pro-B Natriuret Pep Total Protein Albumin Triglycerides Urine WBC (Auto) Urine Creatinine Urine Total Protein Vancomycin Trough Random Vancomycin Absolute CD4 Count Absolute CD19 Count Crossmatch 10/08/16 10/08/16 10/08/16 04:00 04:00 04:10 WBC 58.0 H* RBC 2.95 L Hgb 7.3 L Hct 23.4 L MCV MCH 25 L RDW 20.8 H Plt Count [place] # Baso # Seg Neutrophils % Seg Neuts % (Manual) 75.0 H Lymphocytes % (Manual) 11.0 L Monocytes % (Manual) 8.0 H Eosinophils % (Manual) Nucleated RBC % 30.0 H Seg Neutrophils # Seg Neutrophils # Man 43.5 H Abs Lymphs (Manual) Lymphocytes # (Manual) 6.4 H Monocytes # (Manual) 4.6 H Eosinophils # (Manual) 0.6 H Percent Retic PT INR D-Dimer POC ABG pH POC ABG pCO2 POC ABG pO2 Sodium 152 H Potassium Chloride 111.4 H Carbon Dioxide BUN 59 H Creatinine 1.6 H Glucose 190 H POC Glucose 214 H Lactic Acid Calcium Phosphorus Ferritin Total Bilirubin Lactate Dehydrogenase Total Creatine Kinase CK-MB (CK-2) C-Reactive Protein NT-Pro-B Natriuret Pep Total Protein Albumin Triglycerides Urine WBC (Auto) Urine Creatinine Urine Total Protein Vancomycin Trough Random Vancomycin Absolute CD4 Count Absolute CD19 Count Crossmatch 10/08/16 10/08/16 10/08/16 04:46 12:11 18:35 WBC RBC Hgb Hct MCV MCH RDW Plt Count [place] # Baso # Seg Neutrophils % Seg Neuts % (Manual) Lymphocytes % (Manual) Monocytes % (Manual) Eosinophils % (Manual) Nucleated RBC % Seg Neutrophils # Seg Neutrophils # Man Abs Lymphs (Manual) Lymphocytes # (Manual) Monocytes # (Manual) Eosinophils # (Manual) Percent Retic PT INR D-Dimer POC ABG pH POC ABG pCO2 POC ABG pO2 65 L Sodium Potassium Chloride Carbon Dioxide BUN Creatinine Glucose POC Glucose 199 H 187 H Lactic Acid Calcium Phosphorus Ferritin Total Bilirubin Lactate Dehydrogenase Total Creatine Kinase CK-MB (CK-2) C-Reactive Protein NT-Pro-B Natriuret Pep Total Protein Albumin Triglycerides Urine WBC (Auto) Urine Creatinine Urine Total Protein Vancomycin Trough Random Vancomycin Absolute CD4 Count Absolute CD19 Count Crossmatch 10/08/16 10/09/16 10/09/16 23:38 04:43 05:38 WBC RBC Hgb Hct MCV MCH RDW Plt Count [place] # Baso # Seg Neutrophils % Seg Neuts % (Manual) Lymphocytes % (Manual) Monocytes % (Manual) Eosinophils % (Manual) Nucleated RBC % Seg Neutrophils # Seg Neutrophils # Man Abs Lymphs (Manual) Lymphocytes # (Manual) Monocytes # (Manual) Eosinophils # (Manual) Percent Retic PT INR D-Dimer POC ABG pH POC ABG pCO2 45.4 H POC ABG pO2 52 L Sodium Potassium Chloride Carbon Dioxide BUN Creatinine Glucose POC Glucose 202 H 182 H Lactic Acid Calcium Phosphorus Ferritin Total Bilirubin Lactate Dehydrogenase Total Creatine Kinase CK-MB (CK-2) C-Reactive Protein NT-Pro-B Natriuret Pep Total Protein Albumin Triglycerides Urine WBC (Auto) Urine Creatinine Urine Total Protein Vancomycin Trough Random Vancomycin Absolute CD4 Count Absolute CD19 Count Crossmatch 10/09/16 10/09/16 10/09/16 07:40 07:40 10:00 WBC 37.3 H RBC 2.55 L Hgb 6.4 L Hct 20.7 L MCV MCH 25 L RDW 20.6 H Plt Count [place] # Baso # Seg Neutrophils % Seg Neuts % (Manual) Lymphocytes % (Manual) Monocytes % (Manual) Eosinophils % (Manual) Nucleated RBC % Seg Neutrophils # Seg Neutrophils # Man Abs Lymphs (Manual) Lymphocytes # (Manual) Monocytes # (Manual) Eosinophils # (Manual) Percent Retic PT INR D-Dimer POC ABG pH POC ABG pCO2 POC ABG pO2 Sodium 153 H Potassium 3.3 L Chloride 112.7 H Carbon Dioxide BUN 62 H Creatinine 1.7 H Glucose 146 H POC Glucose Lactic Acid Calcium Phosphorus Ferritin Total Bilirubin Lactate Dehydrogenase Total Creatine Kinase CK-MB (CK-2) C-Reactive Protein NT-Pro-B Natriuret Pep Total Protein Albumin Triglycerides Urine WBC (Auto) Urine Creatinine Urine Total Protein Vancomycin Trough Random Vancomycin Absolute CD4 Count Absolute CD19 Count Crossmatch See Detail 10/09/16 10/09/16 10/10/16 12:06 17:08 00:01 WBC RBC Hgb Hct MCV MCH RDW Plt Count [place] # Baso # Seg Neutrophils % Seg Neuts % (Manual) Lymphocytes % (Manual) Monocytes % (Manual) Eosinophils % (Manual) Nucleated RBC % Seg Neutrophils # Seg Neutrophils # Man Abs Lymphs (Manual) Lymphocytes # (Manual) Monocytes # (Manual) Eosinophils # (Manual) Percent Retic PT INR D-Dimer POC ABG pH POC ABG pCO2 POC ABG pO2 Sodium Potassium Chloride Carbon Dioxide BUN Creatinine Glucose POC Glucose 214 H 152 H 189 H Lactic Acid Calcium Phosphorus Ferritin Total Bilirubin Lactate Dehydrogenase Total Creatine Kinase CK-MB (CK-2) C-Reactive Protein NT-Pro-B Natriuret Pep Total Protein Albumin Triglycerides Urine WBC (Auto) Urine Creatinine Urine Total Protein Vancomycin Trough Random Vancomycin Absolute CD4 Count Absolute CD19 Count Crossmatch 10/10/16 10/10/16 10/10/16 04:25 05:28 06:00 WBC RBC Hgb Hct MCV MCH RDW Plt Count [place] # Baso # Seg Neutrophils % Seg Neuts % (Manual) Lymphocytes % (Manual) Monocytes % (Manual) Eosinophils % (Manual) Nucleated RBC % Seg Neutrophils # Seg Neutrophils # Man Abs Lymphs (Manual) Lymphocytes # (Manual) Monocytes # (Manual) Eosinophils # (Manual) Percent Retic PT INR D-Dimer POC ABG pH POC ABG pCO2 58.3 H POC ABG pO2 68 L Sodium Potassium Chloride Carbon Dioxide BUN Creatinine Glucose POC Glucose 155 H Lactic Acid Calcium Phosphorus Ferritin Total Bilirubin Lactate Dehydrogenase Total Creatine Kinase CK-MB (CK-2) C-Reactive Protein NT-Pro-B Natriuret Pep Total Protein Albumin Triglycerides 407 H Urine WBC (Auto) Urine Creatinine Urine Total Protein Vancomycin Trough Random Vancomycin Absolute CD4 Count Absolute CD19 Count Crossmatch 10/10/16 10/10/16 10/10/16 06:00 06:00 06:00 WBC 38.5 H RBC 3.57 L Hgb 9.3 L Hct 30.1 L D MCV MCH 26 L RDW 22.0 H Plt Count 464 H [place] # Baso # Seg Neutrophils % Seg Neuts % (Manual) 81.0 H Lymphocytes % (Manual) 9.0 L Monocytes % (Manual) Eosinophils % (Manual) Nucleated RBC % 84.0 H Seg Neutrophils # Seg Neutrophils # Man 31.2 H Abs Lymphs (Manual) Lymphocytes # (Manual) Monocytes # (Manual) Eosinophils # (Manual) 1.2 H Percent Retic PT INR D-Dimer POC ABG pH POC ABG pCO2 POC ABG pO2 Sodium 153 H Potassium Chloride 108.3 H Carbon Dioxide 31 H BUN 62 H Creatinine 1.5 H Glucose 160 H POC Glucose Lactic Acid Calcium Phosphorus Ferritin 782.0 H Total Bilirubin Lactate Dehydrogenase Total Creatine Kinase CK-MB (CK-2) C-Reactive Protein NT-Pro-B Natriuret Pep Total Protein Albumin Triglycerides Urine WBC (Auto) Urine Creatinine Urine Total Protein Vancomycin Trough Random Vancomycin Absolute CD4 Count Absolute CD19 Count Crossmatch 10/10/16 10/10/16 10/10/16 11:29 13:03 13:03 WBC RBC Hgb Hct MCV MCH RDW Plt Count [place] # Baso # Seg Neutrophils % Seg Neuts % (Manual) Lymphocytes % (Manual) Monocytes % (Manual) Eosinophils % (Manual) Nucleated RBC % Seg Neutrophils # Seg Neutrophils # Man Abs Lymphs (Manual) 3936 H Lymphocytes # (Manual) Monocytes # (Manual) Eosinophils # (Manual) Percent Retic PT 17.6 H INR 1.45 H D-Dimer POC ABG pH POC ABG pCO2 POC ABG pO2 Sodium Potassium Chloride Carbon Dioxide BUN Creatinine Glucose POC Glucose 177 H Lactic Acid Calcium Phosphorus Ferritin Total Bilirubin Lactate Dehydrogenase Total Creatine Kinase CK-MB (CK-2) C-Reactive Protein NT-Pro-B Natriuret Pep Total Protein Albumin Triglycerides Urine WBC (Auto) Urine Creatinine Urine Total Protein Vancomycin Trough Random Vancomycin Absolute CD4 Count 2178 H Absolute CD19 Count 824 H Crossmatch 10/10/16 10/11/16 10/11/16 17:38 00:04 05:35 WBC RBC Hgb Hct MCV MCH RDW Plt Count [place] # Baso # Seg Neutrophils % Seg Neuts % (Manual) Lymphocytes % (Manual) Monocytes % (Manual) Eosinophils % (Manual) Nucleated RBC % Seg Neutrophils # Seg Neutrophils # Man Abs Lymphs (Manual) Lymphocytes # (Manual) Monocytes # (Manual) Eosinophils # (Manual) Percent Retic PT INR D-Dimer POC ABG pH POC ABG pCO2 56.6 H POC ABG pO2 63 L Sodium Potassium Chloride Carbon Dioxide BUN Creatinine Glucose POC Glucose 173 H 155 H Lactic Acid Calcium Phosphorus Ferritin Total Bilirubin Lactate Dehydrogenase Total Creatine Kinase CK-MB (CK-2) C-Reactive Protein NT-Pro-B Natriuret Pep Total Protein Albumin Triglycerides Urine WBC (Auto) Urine Creatinine Urine Total Protein Vancomycin Trough Random Vancomycin Absolute CD4 Count Absolute CD19 Count Crossmatch 10/11/16 10/11/16 10/11/16 06:01 11:43 12:54 WBC 31.8 H RBC Hgb Hct MCV MCH RDW 17.8 H Plt Count [place] # Baso # Seg Neutrophils % Seg Neuts % (Manual) 84.0 H Lymphocytes % (Manual) 9.0 L Monocytes % (Manual) Eosinophils % (Manual) Nucleated RBC % 28.0 H Seg Neutrophils # Seg Neutrophils # Man 27.1 H Abs Lymphs (Manual) Lymphocytes # (Manual) Monocytes # (Manual) 1.6 H Eosinophils # (Manual) Percent Retic PT INR D-Dimer POC ABG pH POC ABG pCO2 POC ABG pO2 Sodium Potassium Chloride Carbon Dioxide BUN Creatinine Glucose POC Glucose 231 H 185 H Lactic Acid Calcium Phosphorus Ferritin Total Bilirubin Lactate Dehydrogenase Total Creatine Kinase CK-MB (CK-2) C-Reactive Protein NT-Pro-B Natriuret Pep Total Protein Albumin Triglycerides Urine WBC (Auto) Urine Creatinine Urine Total Protein Vancomycin Trough Random Vancomycin Absolute CD4 Count Absolute CD19 Count Crossmatch 10/11/16 10/11/16 10/11/16 12:54 14:10 18:02 WBC RBC Hgb Hct MCV MCH RDW Plt Count [place] # Baso # Seg Neutrophils % Seg Neuts % (Manual) Lymphocytes % (Manual) Monocytes % (Manual) Eosinophils % (Manual) Nucleated RBC % Seg Neutrophils # Seg Neutrophils # Man Abs Lymphs (Manual) Lymphocytes # (Manual) Monocytes # (Manual) Eosinophils # (Manual) Percent Retic PT INR D-Dimer POC ABG pH 7.311 L POC ABG pCO2 71.4 H POC ABG pO2 59 L Sodium Potassium Chloride 97.1 L Carbon Dioxide BUN 57 H Creatinine 1.6 H Glucose 369 H POC Glucose 206 H Lactic Acid Calcium 8.2 L Phosphorus Ferritin Total Bilirubin Lactate Dehydrogenase Total Creatine Kinase CK-MB (CK-2) C-Reactive Protein NT-Pro-B Natriuret Pep Total Protein Albumin Triglycerides Urine WBC (Auto) Urine Creatinine Urine Total Protein Vancomycin Trough Random Vancomycin Absolute CD4 Count Absolute CD19 Count Crossmatch 10/11/16 10/11/16 10/12/16 20:57 21:23 00:43 WBC RBC Hgb Hct MCV MCH RDW Plt Count [place] # Baso # Seg Neutrophils % Seg Neuts % (Manual) Lymphocytes % (Manual) Monocytes % (Manual) Eosinophils % (Manual) Nucleated RBC % Seg Neutrophils # Seg Neutrophils # Man Abs Lymphs (Manual) Lymphocytes # (Manual) Monocytes # (Manual) Eosinophils # (Manual) Percent Retic PT INR D-Dimer POC ABG pH 7.242 L POC ABG pCO2 88.4 H POC ABG pO2 57 L Sodium Potassium Chloride Carbon Dioxide BUN Creatinine Glucose POC Glucose 212 H Lactic Acid Calcium Phosphorus Ferritin Total Bilirubin Lactate Dehydrogenase Total Creatine Kinase CK-MB (CK-2) C-Reactive Protein 3.00 H NT-Pro-B Natriuret Pep Total Protein Albumin Triglycerides Urine WBC (Auto) Urine Creatinine Urine Total Protein Vancomycin Trough Random Vancomycin Absolute CD4 Count Absolute CD19 Count Crossmatch 10/12/16 10/12/16 10/12/16 05:49 06:03 06:57 WBC 37.0 H RBC Hgb Hct MCV MCH RDW 18.0 H Plt Count [place] # 2.0 H Baso # 0.2 H Seg Neutrophils % 86.7 H Seg Neuts % (Manual) 91.5 H Lymphocytes % (Manual) 6.0 L Monocytes % (Manual) Eosinophils % (Manual) Nucleated RBC % 15.5 H Seg Neutrophils # 30.6 H Seg Neutrophils # Man 33.9 H Abs Lymphs (Manual) Lymphocytes # (Manual) Monocytes # (Manual) Eosinophils # (Manual) Percent Retic PT INR D-Dimer POC ABG pH 7.289 L POC ABG pCO2 82.4 H POC ABG pO2 65 L Sodium Potassium Chloride Carbon Dioxide BUN Creatinine Glucose POC Glucose 230 H Lactic Acid Calcium Phosphorus Ferritin Total Bilirubin Lactate Dehydrogenase Total Creatine Kinase CK-MB (CK-2) C-Reactive Protein NT-Pro-B Natriuret Pep Total Protein Albumin Triglycerides Urine WBC (Auto) Urine Creatinine Urine Total Protein Vancomycin Trough Random Vancomycin Absolute CD4 Count Absolute CD19 Count Crossmatch 10/12/16 10/12/16 10/12/16 06:57 11:59 17:00 WBC RBC Hgb Hct MCV MCH RDW Plt Count [place] # Baso # Seg Neutrophils % Seg Neuts % (Manual) Lymphocytes % (Manual) Monocytes % (Manual) Eosinophils % (Manual) Nucleated RBC % Seg Neutrophils # Seg Neutrophils # Man Abs Lymphs (Manual) Lymphocytes # (Manual) Monocytes # (Manual) Eosinophils # (Manual) Percent Retic PT INR D-Dimer POC ABG pH POC ABG pCO2 POC ABG pO2 Sodium 151 H D 130 L D Potassium Chloride Carbon Dioxide 32 H BUN 62 H Creatinine 1.6 H Glucose 231 H POC Glucose 222 H Lactic Acid Calcium Phosphorus 4.90 H Ferritin Total Bilirubin Lactate Dehydrogenase Total Creatine Kinase CK-MB (CK-2) C-Reactive Protein NT-Pro-B Natriuret Pep Total Protein Albumin Triglycerides Urine WBC (Auto) Urine Creatinine Urine Total Protein Vancomycin Trough Random Vancomycin Absolute CD4 Count Absolute CD19 Count Crossmatch 10/12/16 10/12/16 10/12/16 17:41 22:04 23:25 WBC RBC Hgb Hct MCV MCH RDW Plt Count [place] # Baso # Seg Neutrophils % Seg Neuts % (Manual) Lymphocytes % (Manual) Monocytes % (Manual) Eosinophils % (Manual) Nucleated RBC % Seg Neutrophils # Seg Neutrophils # Man Abs Lymphs (Manual) Lymphocytes # (Manual) Monocytes # (Manual) Eosinophils # (Manual) Percent Retic PT INR D-Dimer POC ABG pH 7.264 L POC ABG pCO2 89.1 H POC ABG pO2 62 L Sodium Potassium Chloride Carbon Dioxide BUN Creatinine Glucose POC Glucose 223 H 160 H Lactic Acid Calcium Phosphorus Ferritin Total Bilirubin Lactate Dehydrogenase Total Creatine Kinase CK-MB (CK-2) C-Reactive Protein NT-Pro-B Natriuret Pep Total Protein Albumin Triglycerides Urine WBC (Auto) Urine Creatinine Urine Total Protein Vancomycin Trough Random Vancomycin Absolute CD4 Count Absolute CD19 Count Crossmatch 10/13/16 10/13/16 10/13/16 05:30 06:00 06:00 WBC 25.9 H RBC Hgb Hct MCV MCH RDW 18.1 H Plt Count [place] # Baso # Seg Neutrophils % Seg Neuts % (Manual) 85.0 H Lymphocytes % (Manual) 9.0 L Monocytes % (Manual) Eosinophils % (Manual) Nucleated RBC % 6.0 H Seg Neutrophils # Seg Neutrophils # Man 22.0 H Abs Lymphs (Manual) Lymphocytes # (Manual) Monocytes # (Manual) 1.4 H Eosinophils # (Manual) Percent Retic PT INR D-Dimer POC ABG pH 7.281 L POC ABG pCO2 89.6 H POC ABG pO2 63 L Sodium 148 H D Potassium Chloride Carbon Dioxide 36 H BUN 58 H Creatinine 1.3 H Glucose 189 H POC Glucose Lactic Acid Calcium Phosphorus Ferritin Total Bilirubin Lactate Dehydrogenase Total Creatine Kinase CK-MB (CK-2) C-Reactive Protein NT-Pro-B Natriuret Pep Total Protein Albumin Triglycerides Urine WBC (Auto) Urine Creatinine Urine Total Protein Vancomycin Trough Random Vancomycin Absolute CD4 Count Absolute CD19 Count Crossmatch 10/13/16 06:20 WBC RBC Hgb Hct MCV MCH RDW Plt Count [place] # Baso # Seg Neutrophils % Seg Neuts % (Manual) Lymphocytes % (Manual) Monocytes % (Manual) Eosinophils % (Manual) Nucleated RBC % Seg Neutrophils # Seg Neutrophils # Man Abs Lymphs (Manual) Lymphocytes # (Manual) Monocytes # (Manual) Eosinophils # (Manual) Percent Retic PT INR D-Dimer POC ABG pH POC ABG pCO2 POC ABG pO2 Sodium Potassium Chloride Carbon Dioxide BUN Creatinine Glucose POC Glucose 192 H Lactic Acid Calcium Phosphorus Ferritin Total Bilirubin Lactate Dehydrogenase Total Creatine Kinase CK-MB (CK-2) C-Reactive Protein NT-Pro-B Natriuret Pep Total Protein Albumin Triglycerides Urine WBC (Auto) Urine Creatinine Urine Total Protein Vancomycin Trough Random Vancomycin Absolute CD4 Count Absolute CD19 Count Crossmatch Allied health notes reviewed: RT
--- NOTE | 2016-10-13 13:56 | Progress Note ---
Assessment and Plan - Patient Problems (1) Avascular necrosis of bone of left hip Current Visit: Yes Status: Acute Plan to address problem: Status post Left Hip Arthroplasty on 09/25/16 (2) Acute respiratory failure with hypoxia Current Visit: Yes Status: Acute Plan to address problem: Pulmonology on board, vent management, follow up recs (3) Acute renal failure due to tubular necrosis Current Visit: Yes Status: Acute Plan to address problem: Renal function reviewed, gradually improving, SCr level decreased to 1.3 today, yesterday's SCr level was 1.6, non-oliguric On Lasix 20 mg IV daily Renally dose medications Continue D5W infusion at 50 ml/hr Obtain daily weight Strict intake and output Montes Catheter: Yes Intake= 5591 ml Output= 2900 ml (Net= 2691 ml) Renal plan discussed with Dr Forman Continue supportive therapy (4) Acute hypernatremia Current Visit: Yes Status: Acute Plan to address problem: Serum sodium level decreased to 148 today, yesterday's serum sodium level was 151 with serum sodium level of 130 (questionable accuracy) at 1700. Continue on D5W infusion at 50 ml/hr and free water flushes 400 ml every 4 hours via nasogastric tube Repeat serum sodium level at 2000 (5) Sepsis syndrome Current Visit: Yes Status: Acute Plan to address problem: Infectious Disease on board, currently on Flagyl, follow up recs Subjective Date of service: 10/13/16 Principal diagnosis: Acute Hypoxemic Respiratory Failure; ARDS Interval history: Patient intubated, opens eyes, but doesn't follow commands. Family at bedside. Objective - Vital Signs Vital signs: Vital Signs - 12hr 10/13/16 10/13/16 10/13/16 02:00 02:10 02:20 Temperature Pulse Rate 110 H 111 H 110 H Respiratory 21 20 21 Rate Blood Pressure 118/68 118/68 118/68 O2 Sat by Pulse 94 94 94 Oximetry 10/13/16 10/13/16 10/13/16 02:30 02:40 02:50 Temperature Pulse Rate 111 H 113 H 113 H Respiratory 21 22 21 Rate Blood Pressure 118/68 118/68 118/68 O2 Sat by Pulse 93 94 94 Oximetry 10/13/16 10/13/16 10/13/16 03:00 03:10 03:11 Temperature Pulse Rate 112 H 110 H 110 H Respiratory 22 20 Rate Blood Pressure 118/68 118/68 127/66 O2 Sat by Pulse 94 94 93 Oximetry 10/13/16 10/13/16 10/13/16 03:20 03:30 03:40 Temperature Pulse Rate 112 H 110 H 112 H Respiratory 20 21 25 H Rate Blood Pressure 127/66 112/62 112/62 O2 Sat by Pulse 94 94 93 Oximetry 10/13/16 10/13/16 10/13/16 03:50 04:00 04:10 Temperature Pulse Rate 111 H 114 H 114 H Respiratory 21 22 21 Rate Blood Pressure 112/62 120/67 120/67 O2 Sat by Pulse 94 90 93 Oximetry 10/13/16 10/13/16 10/13/16 04:20 04:30 04:40 Temperature Pulse Rate 113 H 112 H 112 H Respiratory 23 21 23 Rate Blood Pressure 120/67 113/66 113/66 O2 Sat by Pulse 94 93 93 Oximetry 10/13/16 10/13/16 10/13/16 04:50 05:00 05:10 Temperature Pulse Rate 110 H 111 H 110 H Respiratory 21 20 24 Rate Blood Pressure 113/66 114/65 114/65 O2 Sat by Pulse 93 93 94 Oximetry 10/13/16 10/13/16 10/13/16 05:20 05:30 05:40 Temperature Pulse Rate 111 H 101 H 109 H Respiratory 20 25 H 20 Rate Blood Pressure 114/65 100/70 100/70 O2 Sat by Pulse 94 96 98 Oximetry 10/13/16 10/13/16 10/13/16 05:50 06:00 06:10 Temperature Pulse Rate 110 H 111 H 110 H Respiratory 21 21 21 Rate Blood Pressure 100/70 121/67 121/67 O2 Sat by Pulse 90 89 92 Oximetry 10/13/16 10/13/16 10/13/16 06:20 06:30 06:40 Temperature Pulse Rate 109 H 110 H 109 H Respiratory 22 20 21 Rate Blood Pressure 121/67 103/64 103/64 O2 Sat by Pulse 93 94 94 Oximetry 10/13/16 10/13/16 10/13/16 06:50 07:00 07:10 Temperature Pulse Rate 111 H 111 H 109 H Respiratory 21 20 21 Rate Blood Pressure 103/64 110/65 110/65 O2 Sat by Pulse 94 92 95 Oximetry 10/13/16 10/13/16 10/13/16 07:20 07:30 07:40 Temperature Pulse Rate 109 H 109 H 110 H Respiratory 20 20 23 Rate Blood Pressure 110/65 113/64 113/64 O2 Sat by Pulse 95 95 94 Oximetry 10/13/16 10/13/16 10/13/16 07:50 08:00 08:10 Temperature 98.9 F Pulse Rate 106 H 108 H 104 H Respiratory 13 25 H Rate Blood Pressure 113/64 119/72 119/72 O2 Sat by Pulse 93 84 90 Oximetry 10/13/16 10/13/16 10/13/16 08:20 08:30 08:40 Temperature Pulse Rate 108 H 110 H Respiratory Rate Blood Pressure 119/72 120/72 120/72 O2 Sat by Pulse 92 Oximetry 10/13/16 10/13/16 10/13/16 08:50 09:00 09:10 Temperature Pulse Rate 110 H 106 H 107 H Respiratory Rate Blood Pressure 120/72 100/52 100/52 O2 Sat by Pulse 94 95 95 Oximetry 10/13/16 10/13/16 10/13/16 09:20 09:30 09:40 Temperature Pulse Rate 106 H 105 H 105 H Respiratory Rate Blood Pressure 100/52 119/64 100/52 O2 Sat by Pulse 96 94 95 Oximetry 10/13/16 10/13/16 10/13/16 09:50 10:00 10:10 Temperature Pulse Rate 105 H 106 H 107 H Respiratory Rate Blood Pressure 100/52 121/59 121/59 O2 Sat by Pulse 96 94 89 Oximetry 10/13/16 10/13/16 10/13/16 10:20 10:30 10:40 Temperature Pulse Rate 114 H 112 H 114 H Respiratory Rate Blood Pressure 121/59 112/58 112/58 O2 Sat by Pulse 90 92 94 Oximetry 10/13/16 10/13/16 10/13/16 10:46 10:50 11:00 Temperature Pulse Rate 112 H 112 H 107 H Respiratory Rate Blood Pressure 112/58 112/58 107/54 O2 Sat by Pulse 93 98 97 Oximetry 10/13/16 10/13/16 10/13/16 11:10 11:20 11:30 Temperature Pulse Rate 106 H 107 H 108 H Respiratory Rate Blood Pressure 107/54 107/54 116/60 O2 Sat by Pulse 97 97 97 Oximetry 10/13/16 10/13/16 10/13/16 11:40 11:50 12:00 Temperature 99.7 F H Pulse Rate 108 H 108 H 108 H Respiratory Rate Blood Pressure 116/60 116/60 118/56 O2 Sat by Pulse 97 97 96 Oximetry 10/13/16 10/13/16 10/13/16 12:10 12:20 12:30 Temperature Pulse Rate 109 H 109 H 107 H Respiratory Rate Blood Pressure 118/56 118/56 108/55 O2 Sat by Pulse 97 96 96 Oximetry 10/13/16 10/13/16 10/13/16 12:40 12:50 13:00 Temperature Pulse Rate 107 H 108 H 101 H Respiratory Rate Blood Pressure 108/55 108/55 119/61 O2 Sat by Pulse 97 97 98 Oximetry 10/13/16 10/13/16 10/13/16 13:10 13:20 13:30 Temperature Pulse Rate 102 H 102 H 104 H Respiratory Rate Blood Pressure 119/61 119/61 108/62 O2 Sat by Pulse 97 97 97 Oximetry - General Appearance General appearance: intubated (opens eyes, doesn't follow commands) EENT: ATNC Neck: no JVD Respiratory: Present: Other (Lung sounds decreased bilaterally, intubated) Cardiology: regular, S1S2 Gastrointestinal: normoactive bowel sounds (Dobhoff tube intact), other (: Montes to gravity draining moose colored urine) Integumentary: other (Left Hip wound with dressing intact) Neurologic: other (opens eyes, but doesn't follow commands) Musculoskeletal: other (trace edema to both lower extremities) Psychiatric: other (unable to assess) - Lab 10/13/16 06:00 10/13/16 06:00 Most recent lab results Calcium 8.7 mg/dL (8.4-10.2) 10/13/16 06:00 Phosphorus 4.00 mg/dL (2.5-4.5) 10/13/16 06:00 Urine Creatinine 63.2 mg/dL (0.1-20.0) H 10/03/16 15:54 Urine Sodium 20 mEq/L 10/03/16 15:54 Urine Total Protein 67 mg/dL (5-11.8) H 10/03/16 15:54
--- NOTE | 2016-10-13 21:35 | Consultation ---
History of Present Illness - Reason for Consult Consult date: 10/13/16 - History of Present Illness Patient seen examined, , lying in bed, on the vent, responds stronger to name calling. Labs reviewed, improving.I expect her to recover with time. Past History Past Medical History: anemia (sickle cell anemia) Social history: no significant social history Family history: no significant family history Medications and Allergies Allergies Allergy/AdvReac Type Severity Reaction Status Date / Time No Known Allergies Allergy Unverified 10/13/13 13:21 Home Medications Medication Instructions Recorded Confirmed Last Taken Type Folic Acid [Folvite] 1 mg PO QDAY 10/13/13 09/18/16 09/18/16 History oxyCODONE /ACETAMINOPHEN [Percocet 1 tab PO Q6HR PRN #10 tablet 10/13/1309/18/16 Rx 5/325 mg] Promethazine [Phenergan] 25 mg PO Q6H PRN 08/16/14 09/18/16 09/18/16 History valACYclovir [Valtrex] 500 mg PO DAILY 08/16/14 09/18/16 09/18/16 History Active Meds: Active Medications Acetaminophen (Tylenol) 650 mg PO Q4H PRN PRN Reason: Pain MILD(1-3)/Fever >100.5/PALACIOS Last Admin: 10/07/16 18:13 Dose: 650 mg Albuterol/Ipratropium (Duoneb 0.5 Mg-3 Mg/3 Ml Soln) 1 ampul IH Q6HRT [facility] Last Admin: 10/13/16 20:00 Dose: 1 ampul Lipase/Protease/Amylase (Fritz Mayers 10,500 Unit) 1 each FEEDTUBE PRN PRN PRN Reason: For Clogged Feeding Tube Arformoterol Tartrate (Brovana Nebu) 15 mcg IH Q12HRT [facility] Last Admin: 10/13/16 20:00 Dose: 15 mcg Aspirin (Aspirin) 325 mg PO QDAY [facility] Last Admin: 10/13/16 09:32 Dose: 325 mg Budesonide (Pulmicort) 0.5 mg IH Q12HRT [facility] Last Admin: 10/13/16 20:00 Dose: 0.5 mg Diphenhydramine HCl (Benadryl) 12.5 mg IV Q4H PRN PRN Reason: Itching Last Admin: 09/30/16 07:02 Dose: 12.5 mg Enoxaparin Sodium (Lovenox) 40 mg SUB-Q QDAY [facility] Last Admin: 10/13/16 09:33 Dose: 40 mg Famotidine (Pepcid) 20 mg PO BID [facility] Last Admin: 10/13/16 09:32 Dose: 20 mg Folic Acid (Folvite) 1 mg PO QDAY [facility] Last Admin: 10/13/16 09:32 Dose: 1 mg Furosemide (Lasix) 20 mg IV DAILY [facility] Last Admin: 10/13/16 09:32 Dose: 20 mg Hydrophilic Ointment (Vaseline Lip Therapy) 1 applic TP Q2HR PRN PRN Reason: Dry Lips Fentanyl Citrate (Fentanyl Drip Premix) 2,000 mcg in 100 mls @ 4.649 mls/hr IV TITR SADAF; 1 MCG/KG/HR PRN Reason: Protocol Last Admin: 10/13/16 03:45 Dose: 2 mcg/kg/hr, 9.299 mls/hr Midazolam HCl 100 mg/ Sodium (Chloride) 100 mls @ 2 mls/hr IV TITR SADAF; 2 MG/HR PRN Reason: Protocol Last Admin: 10/04/16 12:54 Dose: 2 mg/hr, 2 mls/hr Metronidazole (Flagyl 500 Mg/100 Ml) 500 mg in 100 mls @ 100 mls/hr IV Q8HR [facility] Last Admin: 10/13/16 13:15 Dose: 100 mls/hr Dextrose (D5w) 1,000 mls @ 50 mls/hr IV DIRECT [facility] Last Admin: 10/13/16 10:22 Dose: 50 mls/hr Insulin Human Regular (Novolin R) 0 units SUB-Q Q6HR [facility] PRN Reason: Protocol Last Admin: 10/13/16 18:39 Dose: 1 units Multi-Ingred Cream/Lotion/Oil/Oint (Artificial Tears Ophth Oint) 1 applic OU Q4HR PRN PRN Reason: Dry Eye(s) Multivitamins (Theragran Tab) 1 each PO QDAY [facility] Last Admin: 10/13/16 09:32 Dose: 1 each Ondansetron HCl (Zofran) 4 mg IV Q8H PRN PRN Reason: Nausea And Vomiting Last Admin: 09/29/16 23:07 Dose: 4 mg Promethazine HCl (Phenergan) 25 mg W[place] Q6H PRN PRN Reason: Nausea And Vomiting Last Admin: 09/25/16 22:05 Dose: 25 mg Senna (Senokot) 17.2 mg PO DAILY [facility] Last Admin: 10/13/16 09:32 Dose: 17.2 mg Simple Syrup (Simple Syrup) 15 ml FEEDTUBE PRN PRN PRN Reason: Hypoglycemia Simple Syrup (Simple Syrup) 30 ml FEEDTUBE PRN PRN PRN Reason: Hypoglycemia Sodium Bicarbonate (Sodium Bicarbonate) 325 mg FEEDTUBE PRN PRN PRN Reason: For Clogged Feeding Tube Sodium Chloride (Sodium Chloride Flush Syringe 10 Ml) 10 ml IV PRN PRN PRN Reason: LINE FLUSH Tramadol HCl (Ultram) 50 mg PO Q4H PRN PRN Reason: Pain, Moderate (4-6) Last Admin: 10/06/16 21:54 Dose: 50 mg Valacyclovir HCl (Valtrex) 500 mg PO DAILY [facility] Last Admin: 10/13/16 09:33 Dose: 500 mg Zolpidem Tartrate (Ambien) 5 mg PO QHS PRN PRN Reason: Sleep Review of Systems Breasts: deferred Respiratory: other (remains on full vent support.) Exam - Constitutional Vitals: Temp Pulse Resp BP Pulse Ox 98.4 F 111 H 24 124/66 100 10/13/16 20:00 10/13/16 20:19 10/13/16 20:19 10/13/16 20:10 10/13/16 20:10 General appearance: Present: severe distress - EENT Eyes: Present: PERRL ENT: hearing intact, clear oral mucosa - Neck Neck: Present: supple, normal ROM - Respiratory Respiratory: bilateral: other (on vent) - Cardiovascular Heart Sounds: Present: S1 & S2. Absent: rub, click - Extremities Extremities: pulses symmetrical, No edema Peripheral Pulses: within normal limits - Abdominal General gastrointestinal: Present: soft, non-tender, non-distended, normal bowel sounds Female genitourinary: Present: deferred - Rectal Rectal Exam: deferred - Integumentary Integumentary: Present: clear, warm, dry Results - Labs CBC & Chem 7: 10/13/16 06:00 10/13/16 20:40 Labs: Abnormal lab results 10/12/16 10/12/16 10/13/16 Range/Units 22:04 23:25 05:30 WBC (4.5-11.0) K/mm3 RDW (13.2-15.2) % Seg Neuts % (Manual) (40.0-70.0) % Lymphocytes % (Manual) (13.4-35.0) % Nucleated RBC % (0.0-0.9) % Seg Neutrophils # Man (1.8-7.7) K/mm3 Monocytes # (Manual) (0.0-0.8) K/mm3 POC ABG pH 7.264 L 7.281 L (7.35-7.45) POC ABG pCO2 89.1 H 89.6 H (35-45) POC ABG pO2 62 L 63 L (80-105) Sodium (137-145) mmol/L Carbon Dioxide (22-30) mmol/L BUN (7-17) mg/dL Creatinine (0.7-1.2) mg/dL Glucose (65-100) mg/dL POC Glucose 160 H (70-105) 10/13/16 10/13/16 10/13/16 Range/Units 06:00 06:00 06:20 WBC 25.9 H (4.5-11.0) K/mm3 RDW 18.1 H (13.2-15.2) % Seg Neuts % (Manual) 85.0 H (40.0-70.0) % Lymphocytes % (Manual) 9.0 L (13.4-35.0) % Nucleated RBC % 6.0 H (0.0-0.9) % Seg Neutrophils # Man 22.0 H (1.8-7.7) K/mm3 Monocytes # (Manual) 1.4 H (0.0-0.8) K/mm3 POC ABG pH (7.35-7.45) POC ABG pCO2 (35-45) POC ABG pO2 (80-105) Sodium 148 H D (137-145) mmol/L Carbon Dioxide 36 H (22-30) mmol/L BUN 58 H (7-17) mg/dL Creatinine 1.3 H (0.7-1.2) mg/dL Glucose 189 H (65-100) mg/dL POC Glucose 192 H (70-105) 10/13/16 10/13/16 10/13/16 Range/Units 11:10 17:26 20:40 WBC (4.5-11.0) K/mm3 RDW (13.2-15.2) % Seg Neuts % (Manual) (40.0-70.0) % Lymphocytes % (Manual) (13.4-35.0) % Nucleated RBC % (0.0-0.9) % Seg Neutrophils # Man (1.8-7.7) K/mm3 Monocytes # (Manual) (0.0-0.8) K/mm3 POC ABG pH (7.35-7.45) POC ABG pCO2 (35-45) POC ABG pO2 (80-105) Sodium 148 H (137-145) mmol/L Carbon Dioxide (22-30) mmol/L BUN (7-17) mg/dL Creatinine (0.7-1.2) mg/dL Glucose (65-100) mg/dL POC Glucose 198 H 162 H (70-105) Assessment and Plan - Patient Problems (1) Sepsis Current Visit: Yes Status: Acute Qualifiers: Sepsis type: sepsis due to unspecified organism Qualified Code(s): A41.9 - Sepsis, unspecified organism Plan to address problem: SEE w/up in the notes. No improvement so far. worsening sepsis. Slight improvement (2) Sleep apnea syndrome Current Visit: Yes Status: Acute Qualifiers: Sleep apnea type: S Plan to address problem: oxygen/BIPAP management. Patient now in full resp failure, and on the vent. (3) UTI (urinary tract infection) Current Visit: Yes Status: Acute Qualifiers: Urinary tract infection type: U Hematuria presence: H Indwelling urinary catheter type: I Encounter type: E Plan to address problem: patient already on abx iv. may need culture sent. culture no growth. (4) Anemia Current Visit: Yes Status: Acute Qualifiers: Anemia type: A Iron deficiency anemia type: I Vitamin B12 deficiency anemia type: V Folate deficiency anemia type: F Bone marrow failure anemia type: B Hemolytic anemia type: H Other causes of anemia: O Plan to address problem: will transfuse if hgb 7.5 or less. no new issues at this time. May transfuse if further drop. (5) Leukocytosis Current Visit: Yes Status: Acute Qualifiers: Leukocytosis type: L Plan to address problem: will order flow, and try leukophoresis. instead, exchange transfusion is done today. improving.
[2016-10-13 21:43] LABS: ISTAT Base Excess 16; ISTAT HCO3 43.5; ISTAT PCO2 111.2 (35-45); ISTAT PH 7.201 (7.35-7.45); ISTAT PO2 45 (80-105); ISTAT SO2 66; ISTAT TCO2 47
[2016-10-13 23:50] LABS: ISTAT Base Excess 14; ISTAT HCO3 38.1; ISTAT PCO2 54.2 (35-45); ISTAT PH 7.455 (7.35-7.45); ISTAT PO2 57 (80-105); ISTAT SO2 90; ISTAT TCO2 40
[2016-10-14] MEDS ORDERED: ARTIFICIAL TEARS OPHTH OINT OU PRN
[2016-10-14] MEDS ORDERED: VASELINE LIP THERAPY TP PRN
--- NOTE | 2016-10-14 01:06 | XRay Report ---
FINAL REPORT PROCEDURE: XR CHEST 1V AP TECHNIQUE: Chest radiograph anteroposterior view. CPT 16950 HISTORY: ETT placement COMPARISON: No prior studies are available for comparison. FINDINGS: Heart: Normal. Mediastinum/Vessels: Normal. Lungs/Pleural space: There are scattered infiltrates in the lower lungs. Slight infiltrate left upper lung. Bony thorax: No acute osseous abnormality. Life support devices: The endotracheal tube ends 4 centimeters above the carinal. A nasogastric tube ends below the hemidiaphragms. There is a therapy port with the reservoir in the right chest wall. A left PICC catheter ends in the SVC. IMPRESSION: Scattered infiltrates are identified in both lungs. Tubes and lines are properly positioned as described..
[2016-10-14] MEDS: DUONEB 0.5 MG-3 MG/3 ML SOLN IH SCH ×4 (02:26→21:59)
[2016-10-14 04:28] LABS: ISTAT Base Excess 15; ISTAT HCO3 38.2; ISTAT PCO2 49.4 (35-45); ISTAT PH 7.497 (7.35-7.45); ISTAT PO2 60 (80-105); ISTAT SO2 92; ISTAT TCO2 40
[2016-10-14 06:01] LABS: Hematocrit 31.1 % (30.3-42.9); Hemoglobin 9.9 gm/dl (10.1-14.3); Mean Corpuscular HGB Conc 32 % (30-34); Mean Corpuscular Hemoglobin 28 pg (28-32); Mean Corpuscular Volume 89 fl (79-97); Platelet Count 224 K/mm3 (140-440); Red Blood Count 3.49 M/mm3 (3.65-5.03); Red Cell Distribution Width 16.9 % (13.2-15.2)
[2016-10-14] MEDS: FLAGYL 500 MG/100 ML 500 MG/100 ML BAG IV SCH ×2 (06:01→13:52)
[2016-10-14] MEDS: DIPRIVAN 10 MG/ML 1,000 MG/100 ML BOTTLE IV SCH ×2 (06:02→15:39)
[2016-10-14 06:03] LABS: White Blood Count 23.1 K/mm3 (4.5-11.0)
[2016-10-14] MEDS: fentaNYL DRIP Premix 2,000 MCG/100 ML BAG IV SCH ×2 (06:07→16:22)
[2016-10-14 06:25] LABS: BUN/Creatinine Ratio 43.07; Calcium 8.8 mg/dL (8.4-10.2); Chloride 101.2 mmol/L (98-107); Phosphorous 1.9 mg/dL (2.5-4.5); Potassium 3.6 mmol/L (3.6-5.0)
[2016-10-14 06:54] LABS: Anisocytosis 1+; Basophils % (Manual) 0 % (0.0-1.8); Blastocytes % (Manual) 0 %; Diff Status Complete; Eosinophils % (Manual) 0 % (0.0-4.3); Platelet Estimate Consistent w Auto; Stomatocytes 1+
[2016-10-14] MEDS: D5W 1,000 ML IV SCH (08:09)
[2016-10-14] MEDS: BROVANA NEBU IH SCH ×2 (08:27→22:03)
[2016-10-14] MEDS: PULMICORT IH SCH ×2 (08:27→22:00)
[2016-10-14] MEDS: ASPIRIN PO SCH (09:13)
[2016-10-14] MEDS: LOVENOX SUB-Q SCH (09:13)
[2016-10-14] MEDS: LASIX IV SCH (09:14)
[2016-10-14] MEDS: SENOKOT PO SCH (09:14)
[2016-10-14] MEDS: PEPCID PO SCH ×2 (09:14→22:25)
[2016-10-14] MEDS: VALTREX PO SCH (09:14)
[2016-10-14] MEDS: THERAGRAN Tab PO SCH (09:14)
[2016-10-14] MEDS: FOLVITE PO SCH (09:15)
--- NOTE | 2016-10-14 10:09 | Progress Note ---
Assessment and Plan - Patient Problems (1) Acute respiratory failure with hypoxia Current Visit: Yes Status: Acute Plan to address problem: - changed back to AC mode - continue lung protective strategies (reduced TV to 400mls) - allow permissive hypercapnia - continue bronchodilators and pulmonary toilet - continue aspiration precautions / VAP bundles - continue to wean oxygen for sats > 90-92% at this point - prn ABG's - keep well sedated at this point with daily sedation vacations - will stop diuretics - s/p exchange blood transfusion - will plan bronchoscopy with BAL once more stable re: Peep </= 10 and FiO2 </= 60% (2) ARDS (adult respiratory distress syndrome) Current Visit: Yes Status: Acute Plan to address problem: - 2D ECHO reports normal EF without impaired relaxation - non cardiogenic pulmonary edema - etiology unclear - treating empirically as HCAP - as above otherwise (3) Obesity Current Visit: Yes Status: Acute Qualifiers: Obesity type: O Obesity severity: O Plan to address problem: - weight loss counselled earlier - outpatient sleep clinic evaluation at discharge (4) Sepsis syndrome Current Visit: Yes Status: Acute Plan to address problem: - continue anti-infectives per ID recs - trend CRP / lactate prn (5) Anemia Current Visit: Yes Status: Acute Qualifiers: Anemia type: A Iron deficiency anemia type: I Vitamin B12 deficiency anemia type: V Folate deficiency anemia type: F Bone marrow failure anemia type: B Hemolytic anemia type: H Other causes of anemia: O Plan to address problem: - multifactorial - suspect ABLA component - h/o sickle cell - prn PRBC transfusions - hematology following - s/p exchange blood transfusion (6) CARLYN (acute kidney injury) Current Visit: Yes Status: Acute Plan to address problem: - non oliguric - per nephrology recommendations - will stop diuretics today (7) Discharge planning issues Current Visit: Yes Status: Acute Plan to address problem: (7) Discharge planning issues Current Visit: Yes Status: Acute Plan to address problem: - hopefully continues to improve and can transfer to LTAC once Peep </= 10 and FiO2 < 60% .....she remains critically ill on life sustaining interventions including MVS and remains at risk for further deterioration including 35' CCT Subjective Date of service: 10/14/16 Principal diagnosis: Acute Hypoxemic Respiratory Failure; ARDS Interval history: Seen and examined at bedside; 24 hour events reviewed; nursing and respiratory care staff consulted; no adverse overnight events reported to me; switched over to AC mode yesterday; tolerating but tenuously at times; agitated during sedation holidays; had episode of emesis yesterday but tolerating tube feeds well so far; numbers still consistent with ALI/ARDS Objective Vital Signs - 12hr 10/13/16 10/13/16 10/13/16 22:10 22:20 22:30 Temperature Pulse Rate 102 H 103 H 102 H Pulse Rate [ Anterior Bilateral Throughout] Pulse Rate [ From Monitor] Respiratory Rate Respiratory Rate [Anterior Bilateral Throughout] Blood Pressure 94/52 114/69 120/60 O2 Sat by Pulse 93 97 96 Oximetry 10/13/16 10/13/16 10/13/16 22:40 22:50 23:00 Temperature Pulse Rate 102 H 101 H 96 H Pulse Rate [ Anterior Bilateral Throughout] Pulse Rate [ From Monitor] Respiratory Rate Respiratory Rate [Anterior Bilateral Throughout] Blood Pressure 120/60 120/60 99/58 O2 Sat by Pulse 97 97 Oximetry 10/13/16 10/13/16 10/13/16 23:10 23:20 23:26 Temperature Pulse Rate 99 H 97 H 97 H Pulse Rate [ Anterior Bilateral Throughout] Pulse Rate [ From Monitor] Respiratory Rate Respiratory Rate [Anterior Bilateral Throughout] Blood Pressure 99/58 99/58 99/58 O2 Sat by Pulse 98 98 96 Oximetry 10/13/16 10/13/16 10/13/16 23:30 23:38 23:40 Temperature Pulse Rate 103 H 102 H 96 H Pulse Rate [ Anterior Bilateral Throughout] Pulse Rate [ From Monitor] Respiratory Rate Respiratory Rate [Anterior Bilateral Throughout] Blood Pressure 109/67 109/67 109/67 O2 Sat by Pulse 95 97 Oximetry 10/13/16 10/14/16 10/14/16 23:50 00:00 00:10 Temperature 99.5 F Pulse Rate 102 H 95 H 96 H Pulse Rate [ Anterior Bilateral Throughout] Pulse Rate [ From Monitor] Respiratory 32 H Rate Respiratory Rate [Anterior Bilateral Throughout] Blood Pressure 109/67 107/66 107/66 O2 Sat by Pulse 96 99 97 Oximetry 10/14/16 10/14/16 10/14/16 00:20 00:30 00:40 Temperature Pulse Rate 93 H 99 H 98 H Pulse Rate [ Anterior Bilateral Throughout] Pulse Rate [ From Monitor] Respiratory Rate Respiratory Rate [Anterior Bilateral Throughout] Blood Pressure 107/66 111/68 111/68 O2 Sat by Pulse 99 97 96 Oximetry 10/14/16 10/14/16 10/14/16 00:50 01:00 01:10 Temperature Pulse Rate 97 H 92 H 102 H Pulse Rate [ Anterior Bilateral Throughout] Pulse Rate [ From Monitor] Respiratory Rate Respiratory Rate [Anterior Bilateral Throughout] Blood Pressure 111/68 109/69 109/69 O2 Sat by Pulse 98 99 Oximetry 10/14/16 10/14/16 10/14/16 01:20 01:30 01:40 Temperature Pulse Rate 96 H 98 H 94 H Pulse Rate [ Anterior Bilateral Throughout] Pulse Rate [ From Monitor] Respiratory Rate Respiratory Rate [Anterior Bilateral Throughout] Blood Pressure 109/69 95/62 95/62 O2 Sat by Pulse 96 96 Oximetry 10/14/16 10/14/16 10/14/16 01:50 02:00 02:10 Temperature Pulse Rate 94 H 92 H 92 H Pulse Rate [ Anterior Bilateral Throughout] Pulse Rate [ From Monitor] Respiratory Rate Respiratory Rate [Anterior Bilateral Throughout] Blood Pressure 95/62 103/60 103/60 O2 Sat by Pulse 97 97 Oximetry 10/14/16 10/14/16 10/14/16 02:20 02:30 02:40 Temperature Pulse Rate 95 H 93 H 93 H Pulse Rate [ Anterior Bilateral Throughout] Pulse Rate [ From Monitor] Respiratory Rate Respiratory Rate [Anterior Bilateral Throughout] Blood Pressure 103/60 106/64 106/64 O2 Sat by Pulse 97 98 Oximetry 10/14/16 10/14/16 10/14/16 02:50 03:00 03:10 Temperature Pulse Rate 91 H 92 H 94 H Pulse Rate [ Anterior Bilateral Throughout] Pulse Rate [ From Monitor] Respiratory Rate Respiratory Rate [Anterior Bilateral Throughout] Blood Pressure 106/64 111/60 111/60 O2 Sat by Pulse 98 98 Oximetry 10/14/16 10/14/16 10/14/16 03:14 03:20 03:30 Temperature Pulse Rate 91 H 91 H 91 H Pulse Rate [ Anterior Bilateral Throughout] Pulse Rate [ From Monitor] Respiratory Rate Respiratory Rate [Anterior Bilateral Throughout] Blood Pressure 111/60 111/60 99/64 O2 Sat by Pulse 99 97 Oximetry 10/14/16 10/14/16 10/14/16 03:40 03:50 04:00 Temperature 992 F H Pulse Rate 90 91 H 88 Pulse Rate [ Anterior Bilateral Throughout] Pulse Rate [ From Monitor] Respiratory 30 H Rate Respiratory Rate [Anterior Bilateral Throughout] Blood Pressure 99/64 99/64 99/64 O2 Sat by Pulse 97 97 98 Oximetry 10/14/16 10/14/16 10/14/16 04:10 04:20 04:30 Temperature Pulse Rate 88 95 H 84 Pulse Rate [ Anterior Bilateral Throughout] Pulse Rate [ From Monitor] Respiratory Rate Respiratory Rate [Anterior Bilateral Throughout] Blood Pressure 106/61 106/61 119/75 O2 Sat by Pulse 96 97 Oximetry 10/14/16 10/14/16 10/14/16 04:40 04:50 05:00 Temperature Pulse Rate 96 H 92 H 98 H Pulse Rate [ Anterior Bilateral Throughout] Pulse Rate [ From Monitor] Respiratory Rate Respiratory Rate [Anterior Bilateral Throughout] Blood Pressure 119/75 119/75 120/58 O2 Sat by Pulse 96 98 Oximetry 10/14/16 10/14/16 10/14/16 05:10 05:20 05:30 Temperature Pulse Rate 89 91 H 93 H Pulse Rate [ Anterior Bilateral Throughout] Pulse Rate [ From Monitor] Respiratory Rate Respiratory Rate [Anterior Bilateral Throughout] Blood Pressure 120/58 120/58 111/67 O2 Sat by Pulse 97 97 97 Oximetry 10/14/16 10/14/16 10/14/16 05:40 05:50 06:00 Temperature Pulse Rate 87 90 91 H Pulse Rate [ Anterior Bilateral Throughout] Pulse Rate [ From Monitor] Respiratory Rate Respiratory Rate [Anterior Bilateral Throughout] Blood Pressure 111/67 111/67 115/65 O2 Sat by Pulse 96 97 Oximetry 10/14/16 10/14/16 10/14/16 06:02 06:10 06:20 Temperature Pulse Rate 88 91 H Pulse Rate [ Anterior Bilateral Throughout] Pulse Rate [ From Monitor] Respiratory 32 H Rate Respiratory Rate [Anterior Bilateral Throughout] Blood Pressure 115/65 115/65 O2 Sat by Pulse 97 98 Oximetry 10/14/16 10/14/16 10/14/16 06:30 06:40 06:50 Temperature Pulse Rate 91 H 92 H 94 H Pulse Rate [ Anterior Bilateral Throughout] Pulse Rate [ From Monitor] Respiratory Rate Respiratory Rate [Anterior Bilateral Throughout] Blood Pressure 101/66 115/65 115/65 O2 Sat by Pulse 97 97 Oximetry 10/14/16 10/14/16 10/14/16 07:00 07:10 07:20 Temperature Pulse Rate 94 H 95 H 97 H Pulse Rate [ Anterior Bilateral Throughout] Pulse Rate [ From Monitor] Respiratory Rate Respiratory Rate [Anterior Bilateral Throughout] Blood Pressure 107/56 101/66 101/66 O2 Sat by Pulse 98 97 97 Oximetry 10/14/16 10/14/16 10/14/16 07:30 07:40 07:41 Temperature 99.8 F H Pulse Rate 91 H 86 Pulse Rate [ Anterior Bilateral Throughout] Pulse Rate [ From Monitor] Respiratory Rate Respiratory Rate [Anterior Bilateral Throughout] Blood Pressure 113/62 113/62 O2 Sat by Pulse 96 Oximetry 10/14/16 10/14/16 10/14/16 07:42 07:50 08:00 Temperature 99.8 F H Pulse Rate 90 96 H Pulse Rate [ 98 H Anterior Bilateral Throughout] Pulse Rate [ 87 From Monitor] Respiratory 37 H Rate Respiratory 26 H Rate [Anterior Bilateral Throughout] Blood Pressure 113/62 108/60 O2 Sat by Pulse 98 Oximetry 10/14/16 10/14/16 10/14/16 08:10 08:20 08:27 Temperature Pulse Rate 94 H 97 H Pulse Rate [ 98 H Anterior Bilateral Throughout] Pulse Rate [ From Monitor] Respiratory Rate Respiratory 30 H Rate [Anterior Bilateral Throughout] Blood Pressure 108/60 108/60 O2 Sat by Pulse Oximetry 10/14/16 10/14/16 10/14/16 08:30 08:40 08:50 Temperature Pulse Rate 95 H 95 H 97 H Pulse Rate [ Anterior Bilateral Throughout] Pulse Rate [ From Monitor] Respiratory Rate Respiratory Rate [Anterior Bilateral Throughout] Blood Pressure 121/62 121/62 121/62 O2 Sat by Pulse Oximetry 10/14/16 10/14/16 10/14/16 08:59 09:00 09:10 Temperature Pulse Rate 97 H 97 H 99 H Pulse Rate [ Anterior Bilateral Throughout] Pulse Rate [ From Monitor] Respiratory Rate Respiratory Rate [Anterior Bilateral Throughout] Blood Pressure 104/58 104/58 O2 Sat by Pulse Oximetry 10/14/16 10/14/16 10/14/16 09:20 09:30 09:40 Temperature Pulse Rate 101 H 99 H 100 H Pulse Rate [ Anterior Bilateral Throughout] Pulse Rate [ From Monitor] Respiratory Rate Respiratory Rate [Anterior Bilateral Throughout] Blood Pressure 104/58 105/49 105/49 O2 Sat by Pulse 100 100 Oximetry 10/14/16 10/14/16 09:42 09:50 Temperature Pulse Rate 102 H Pulse Rate [ Anterior Bilateral Throughout] Pulse Rate [ From Monitor] Respiratory 30 H Rate Respiratory Rate [Anterior Bilateral Throughout] Blood Pressure 105/49 O2 Sat by Pulse 98 100 Oximetry Constitutional: no acute distress, other (sedated) Eyes: non-icteric ENT: oropharynx moist Neck: supple, no lymphadenopathy Effort: mildly labored Ascultation: Bilateral: diminished breath sounds, rales Cardiovascular: regular rate and rhythm Gastrointestinal: normoactive bowel sounds, soft, non-tender, non-distended Integumentary: normal Extremities: no cyanosis, no edema, pulses normal, no ischemia or petechiae Neurologic: unable to assess Psychiatric: other (sedated now) CBC and BMP: 10/14/16 05:30 10/14/16 05:30 ABG, PT/INR, D-dimer: ABG POC ABG pH 7.497 (7.35-7.45) H 10/14/16 04:12 POC ABG pCO2 49.4 (35-45) H 10/14/16 04:12 POC ABG pO2 60 (80-105) L 10/14/16 04:12 POC ABG HCO3 38.2 10/14/16 04:12 POC ABG Total CO2 40 10/14/16 04:12 POC ABG O2 Sat 92 10/14/16 04:12 PT/INR, D-dimer PT 17.6 Sec. (12.2-14.9) H 10/10/16 13:03 INR 1.45 (0.87-1.13) H 10/10/16 13:03 D-Dimer 4758.12 ng/mlDDU (0-234) H 09/27/16 22:47 Abnormal lab findings: Abnormal Labs 09/20/16 09/20/16 09/20/16 10:35 10:35 10:35 WBC 11.7 H RBC Hgb Hct MCV 75 L MCH 24 L RDW 16.6 H Plt Count [place] # Baso # Seg Neutrophils % Seg Neuts % (Manual) Lymphocytes % (Manual) Monocytes % (Manual) Eosinophils % (Manual) Nucleated RBC % Seg Neutrophils # Seg Neutrophils # Man Abs Lymphs (Manual) Lymphocytes # (Manual) Monocytes # (Manual) Eosinophils # (Manual) Percent Retic PT INR 1.14 H D-Dimer POC ABG pH POC ABG pCO2 POC ABG pO2 Sodium Potassium Chloride Carbon Dioxide BUN Creatinine 0.5 L Glucose 115 H POC Glucose Lactic Acid Calcium Phosphorus Ferritin Total Bilirubin 2.0 H Lactate Dehydrogenase Total Creatine Kinase CK-MB (CK-2) C-Reactive Protein NT-Pro-B Natriuret Pep Total Protein Albumin Triglycerides Urine WBC (Auto) Urine Creatinine Urine Total Protein Vancomycin Trough Random Vancomycin Absolute CD4 Count Absolute CD19 Count Crossmatch 09/26/16 09/26/16 09/27/16 04:26 04:26 10:26 WBC RBC Hgb 8.9 L Hct 28.0 L MCV MCH RDW Plt Count [place] # Baso # Seg Neutrophils % Seg Neuts % (Manual) Lymphocytes % (Manual) Monocytes % (Manual) Eosinophils % (Manual) Nucleated RBC % Seg Neutrophils # Seg Neutrophils # Man Abs Lymphs (Manual) Lymphocytes # (Manual) Monocytes # (Manual) Eosinophils # (Manual) Percent Retic PT INR D-Dimer POC ABG pH 7.283 L POC ABG pCO2 45.3 H POC ABG pO2 79 L Sodium Potassium Chloride Carbon Dioxide 20 L BUN Creatinine Glucose 129 H POC Glucose Lactic Acid Calcium 7.6 L Phosphorus Ferritin Total Bilirubin Lactate Dehydrogenase Total Creatine Kinase CK-MB (CK-2) C-Reactive Protein NT-Pro-B Natriuret Pep Total Protein Albumin Triglycerides Urine WBC (Auto) Urine Creatinine Urine Total Protein Vancomycin Trough Random Vancomycin Absolute CD4 Count Absolute CD19 Count Crossmatch 09/27/16 09/27/16 09/27/16 14:40 14:40 15:14 WBC 39.3 H RBC Hgb 9.3 L Hct 28.9 L MCV 75 L MCH 24 L RDW 18.7 H Plt Count [place] # Baso # Seg Neutrophils % Seg Neuts % (Manual) 93.5 H Lymphocytes % (Manual) 5.0 L Monocytes % (Manual) Eosinophils % (Manual) Nucleated RBC % Seg Neutrophils # Seg Neutrophils # Man 36.7 H Abs Lymphs (Manual) Lymphocytes # (Manual) Monocytes # (Manual) Eosinophils # (Manual) Percent Retic PT INR D-Dimer POC ABG pH POC ABG pCO2 POC ABG pO2 Sodium Potassium Chloride Carbon Dioxide BUN Creatinine Glucose POC Glucose Lactic Acid 2.9 H* Calcium Phosphorus Ferritin Total Bilirubin Lactate Dehydrogenase Total Creatine Kinase 3575 H CK-MB (CK-2) 11.0 H C-Reactive Protein 16.10 H NT-Pro-B Natriuret Pep Total Protein Albumin Triglycerides Urine WBC (Auto) Urine Creatinine Urine Total Protein Vancomycin Trough Random Vancomycin Absolute CD4 Count Absolute CD19 Count Crossmatch 09/27/16 09/27/16 09/27/16 18:05 22:47 22:47 WBC RBC Hgb Hct MCV MCH RDW Plt Count [place] # Baso # Seg Neutrophils % Seg Neuts % (Manual) Lymphocytes % (Manual) Monocytes % (Manual) Eosinophils % (Manual) Nucleated RBC % Seg Neutrophils # Seg Neutrophils # Man Abs Lymphs (Manual) Lymphocytes # (Manual) Monocytes # (Manual) Eosinophils # (Manual) Percent Retic PT INR D-Dimer 4758.12 H POC ABG pH POC ABG pCO2 POC ABG pO2 70 L Sodium Potassium Chloride Carbon Dioxide BUN Creatinine Glucose POC Glucose Lactic Acid Calcium Phosphorus Ferritin Total Bilirubin Lactate Dehydrogenase 829 H Total Creatine Kinase CK-MB (CK-2) C-Reactive Protein NT-Pro-B Natriuret Pep Total Protein Albumin Triglycerides Urine WBC (Auto) Urine Creatinine Urine Total Protein Vancomycin Trough Random Vancomycin Absolute CD4 Count Absolute CD19 Count Crossmatch 09/27/16 09/28/16 09/28/16 22:47 09:20 10:47 WBC RBC Hgb Hct MCV MCH RDW Plt Count [place] # Baso # Seg Neutrophils % Seg Neuts % (Manual) Lymphocytes % (Manual) Monocytes % (Manual) Eosinophils % (Manual) Nucleated RBC % Seg Neutrophils # Seg Neutrophils # Man Abs Lymphs (Manual) Lymphocytes # (Manual) Monocytes # (Manual) Eosinophils # (Manual) Percent Retic 8.11 H PT INR D-Dimer POC ABG pH POC ABG pCO2 47.2 H POC ABG pO2 70 L Sodium Potassium Chloride Carbon Dioxide BUN Creatinine 0.6 L Glucose 137 H POC Glucose Lactic Acid Calcium Phosphorus Ferritin Total Bilirubin Lactate Dehydrogenase Total Creatine Kinase CK-MB (CK-2) C-Reactive Protein NT-Pro-B Natriuret Pep Total Protein Albumin Triglycerides Urine WBC (Auto) Urine Creatinine Urine Total Protein Vancomycin Trough Random Vancomycin Absolute CD4 Count Absolute CD19 Count Crossmatch 09/28/16 09/30/16 09/30/16 10:47 11:01 14:05 WBC 30.3 H RBC 3.27 L Hgb 8.1 L Hct 24.4 L MCV 75 L MCH 25 L RDW 18.9 H Plt Count [place] # Baso # Seg Neutrophils % Seg Neuts % (Manual) Lymphocytes % (Manual) 12.0 L Monocytes % (Manual) Eosinophils % (Manual) Nucleated RBC % 5.0 H Seg Neutrophils # Seg Neutrophils # Man 21.2 H Abs Lymphs (Manual) Lymphocytes # (Manual) Monocytes # (Manual) 1.8 H Eosinophils # (Manual) Percent Retic PT INR D-Dimer POC ABG pH POC ABG pCO2 48.8 H POC ABG pO2 52 L Sodium Potassium Chloride Carbon Dioxide BUN Creatinine Glucose POC Glucose Lactic Acid Calcium Phosphorus Ferritin Total Bilirubin Lactate Dehydrogenase Total Creatine Kinase CK-MB (CK-2) C-Reactive Protein NT-Pro-B Natriuret Pep 2018 H Total Protein Albumin Triglycerides Urine WBC (Auto) Urine Creatinine Urine Total Protein Vancomycin Trough Random Vancomycin Absolute CD4 Count Absolute CD19 Count Crossmatch 09/30/16 09/30/16 09/30/16 14:05 14:05 14:05 WBC 22.1 H RBC 2.76 L Hgb 6.9 L Hct 20.6 L MCV 75 L MCH 25 L RDW 18.7 H Plt Count [place] # Baso # Seg Neutrophils % Seg Neuts % (Manual) 74.0 H Lymphocytes % (Manual) 7.0 L Monocytes % (Manual) Eosinophils % (Manual) Nucleated RBC % 52.0 H Seg Neutrophils # Seg Neutrophils # Man 16.4 H Abs Lymphs (Manual) Lymphocytes # (Manual) Monocytes # (Manual) Eosinophils # (Manual) Percent Retic PT INR D-Dimer POC ABG pH POC ABG pCO2 POC ABG pO2 Sodium Potassium 3.1 L Chloride Carbon Dioxide BUN Creatinine 0.5 L Glucose 116 H POC Glucose Lactic Acid Calcium 8.2 L Phosphorus Ferritin Total Bilirubin Lactate Dehydrogenase Total Creatine Kinase CK-MB (CK-2) C-Reactive Protein 30.80 H NT-Pro-B Natriuret Pep Total Protein Albumin Triglycerides Urine WBC (Auto) Urine Creatinine Urine Total Protein Vancomycin Trough Random Vancomycin Absolute CD4 Count Absolute CD19 Count Crossmatch 09/30/16 10/01/16 10/01/16 14:33 00:55 00:55 WBC 26.1 H RBC 2.80 L Hgb 6.8 L Hct 20.8 L MCV 74 L MCH 24 L RDW 18.6 H Plt Count [place] # Baso # Seg Neutrophils % Seg Neuts % (Manual) 85.0 H Lymphocytes % (Manual) 11.0 L Monocytes % (Manual) Eosinophils % (Manual) Nucleated RBC % 21.0 H Seg Neutrophils # Seg Neutrophils # Man 22.2 H Abs Lymphs (Manual) Lymphocytes # (Manual) Monocytes # (Manual) 1.0 H Eosinophils # (Manual) Percent Retic PT INR D-Dimer POC ABG pH POC ABG pCO2 47.8 H POC ABG pO2 201 H Sodium Potassium Chloride Carbon Dioxide BUN Creatinine Glucose POC Glucose Lactic Acid Calcium Phosphorus Ferritin Total Bilirubin Lactate Dehydrogenase Total Creatine Kinase CK-MB (CK-2) C-Reactive Protein NT-Pro-B Natriuret Pep Total Protein Albumin Triglycerides Urine WBC (Auto) Urine Creatinine Urine Total Protein Vancomycin Trough Random Vancomycin Absolute CD4 Count Absolute CD19 Count Crossmatch See Detail 10/01/16 10/01/16 10/01/16 04:57 05:00 13:01 WBC RBC Hgb Hct MCV MCH RDW Plt Count [place] # Baso # Seg Neutrophils % Seg Neuts % (Manual) Lymphocytes % (Manual) Monocytes % (Manual) Eosinophils % (Manual) Nucleated RBC % Seg Neutrophils # Seg Neutrophils # Man Abs Lymphs (Manual) Lymphocytes # (Manual) Monocytes # (Manual) Eosinophils # (Manual) Percent Retic PT INR D-Dimer POC ABG pH POC ABG pCO2 58.5 H POC ABG pO2 149 H Sodium 149 H Potassium 3.0 L Chloride Carbon Dioxide BUN Creatinine Glucose POC Glucose 120 H Lactic Acid Calcium 8.3 L Phosphorus Ferritin Total Bilirubin Lactate Dehydrogenase Total Creatine Kinase CK-MB (CK-2) C-Reactive Protein NT-Pro-B Natriuret Pep Total Protein Albumin Triglycerides Urine WBC (Auto) Urine Creatinine Urine Total Protein Vancomycin Trough Random Vancomycin Absolute CD4 Count Absolute CD19 Count Crossmatch 10/01/16 10/01/16 10/01/16 15:43 17:44 23:37 WBC 27.6 H RBC 3.55 L Hgb 8.9 L Hct 27.6 L D MCV 78 L D MCH 25 L RDW 18.1 H Plt Count [place] # Baso # Seg Neutrophils % Seg Neuts % (Manual) 79.5 H Lymphocytes % (Manual) 8.0 L Monocytes % (Manual) Eosinophils % (Manual) Nucleated RBC % 65.0 H Seg Neutrophils # Seg Neutrophils # Man 21.9 H Abs Lymphs (Manual) Lymphocytes # (Manual) Monocytes # (Manual) 1.0 H Eosinophils # (Manual) Percent Retic PT INR D-Dimer POC ABG pH POC ABG pCO2 POC ABG pO2 Sodium Potassium Chloride Carbon Dioxide BUN Creatinine Glucose POC Glucose 121 H 129 H Lactic Acid Calcium Phosphorus Ferritin Total Bilirubin Lactate Dehydrogenase Total Creatine Kinase CK-MB (CK-2) C-Reactive Protein NT-Pro-B Natriuret Pep Total Protein Albumin Triglycerides Urine WBC (Auto) Urine Creatinine Urine Total Protein Vancomycin Trough Random Vancomycin Absolute CD4 Count Absolute CD19 Count Crossmatch 10/02/16 10/02/16 10/02/16 05:05 05:40 06:00 WBC 23.0 H RBC 3.30 L Hgb 8.3 L Hct 25.8 L MCV 78 L MCH 25 L RDW 18.2 H Plt Count [place] # Baso # Seg Neutrophils % Seg Neuts % (Manual) 83.5 H Lymphocytes % (Manual) 4.0 L Monocytes % (Manual) Eosinophils % (Manual) Nucleated RBC % 14.5 H Seg Neutrophils # Seg Neutrophils # Man 25.1 H Abs Lymphs (Manual) Lymphocytes # (Manual) Monocytes # (Manual) 1.7 H Eosinophils # (Manual) Percent Retic PT INR D-Dimer POC ABG pH POC ABG pCO2 50.5 H POC ABG pO2 Sodium Potassium Chloride Carbon Dioxide BUN Creatinine Glucose POC Glucose 123 H Lactic Acid Calcium Phosphorus Ferritin Total Bilirubin Lactate Dehydrogenase Total Creatine Kinase CK-MB (CK-2) C-Reactive Protein NT-Pro-B Natriuret Pep Total Protein Albumin Triglycerides Urine WBC (Auto) Urine Creatinine Urine Total Protein Vancomycin Trough Random Vancomycin Absolute CD4 Count Absolute CD19 Count Crossmatch 10/02/16 10/02/16 10/02/16 06:00 11:42 21:52 WBC RBC Hgb Hct MCV MCH RDW Plt Count [place] # Baso # Seg Neutrophils % Seg Neuts % (Manual) Lymphocytes % (Manual) Monocytes % (Manual) Eosinophils % (Manual) Nucleated RBC % Seg Neutrophils # Seg Neutrophils # Man Abs Lymphs (Manual) Lymphocytes # (Manual) Monocytes # (Manual) Eosinophils # (Manual) Percent Retic PT INR D-Dimer POC ABG pH 7.324 L POC ABG pCO2 60.5 H POC ABG pO2 74 L Sodium 150 H Potassium Chloride 108.3 H Carbon Dioxide BUN 20 H Creatinine 1.4 H D Glucose 117 H POC Glucose 135 H Lactic Acid Calcium Phosphorus Ferritin Total Bilirubin Lactate Dehydrogenase Total Creatine Kinase CK-MB (CK-2) C-Reactive Protein NT-Pro-B Natriuret Pep Total Protein Albumin Triglycerides Urine WBC (Auto) Urine Creatinine Urine Total Protein Vancomycin Trough Random Vancomycin Absolute CD4 Count Absolute CD19 Count Crossmatch 10/02/16 10/03/16 10/03/16 23:26 05:55 08:17 WBC 32.0 H RBC 3.13 L Hgb 7.9 L Hct 24.6 L MCV MCH 25 L RDW 18.9 H Plt Count 132 L [place] # Baso # Seg Neutrophils % Seg Neuts % (Manual) 75.0 H Lymphocytes % (Manual) 5.0 L Monocytes % (Manual) Eosinophils % (Manual) Nucleated RBC % 26.0 H Seg Neutrophils # Seg Neutrophils # Man 24.0 H Abs Lymphs (Manual) Lymphocytes # (Manual) Monocytes # (Manual) 1.0 H Eosinophils # (Manual) 1.0 H Percent Retic PT INR D-Dimer POC ABG pH POC ABG pCO2 POC ABG pO2 Sodium Potassium Chloride Carbon Dioxide BUN Creatinine Glucose POC Glucose 121 H 145 H Lactic Acid Calcium Phosphorus Ferritin Total Bilirubin Lactate Dehydrogenase Total Creatine Kinase CK-MB (CK-2) C-Reactive Protein NT-Pro-B Natriuret Pep Total Protein Albumin Triglycerides Urine WBC (Auto) Urine Creatinine Urine Total Protein Vancomycin Trough Random Vancomycin Absolute CD4 Count Absolute CD19 Count Crossmatch 10/03/16 10/03/16 10/03/16 08:17 09:26 11:34 WBC RBC Hgb Hct MCV MCH RDW Plt Count [place] # Baso # Seg Neutrophils % Seg Neuts % (Manual) Lymphocytes % (Manual) Monocytes % (Manual) Eosinophils % (Manual) Nucleated RBC % Seg Neutrophils # Seg Neutrophils # Man Abs Lymphs (Manual) Lymphocytes # (Manual) Monocytes # (Manual) Eosinophils # (Manual) Percent Retic PT INR D-Dimer POC ABG pH 7.274 L POC ABG pCO2 59.7 H POC ABG pO2 58 L Sodium 147 H Potassium Chloride 107.6 H Carbon Dioxide BUN 31 H Creatinine 1.7 H Glucose 118 H POC Glucose 142 H Lactic Acid Calcium Phosphorus Ferritin Total Bilirubin Lactate Dehydrogenase Total Creatine Kinase CK-MB (CK-2) C-Reactive Protein NT-Pro-B Natriuret Pep Total Protein Albumin Triglycerides Urine WBC (Auto) Urine Creatinine Urine Total Protein Vancomycin Trough Random Vancomycin Absolute CD4 Count Absolute CD19 Count Crossmatch 10/03/16 10/03/16 10/03/16 15:54 15:54 16:58 WBC RBC Hgb Hct MCV MCH RDW Plt Count [place] # Baso # Seg Neutrophils % Seg Neuts % (Manual) Lymphocytes % (Manual) Monocytes % (Manual) Eosinophils % (Manual) Nucleated RBC % Seg Neutrophils # Seg Neutrophils # Man Abs Lymphs (Manual) Lymphocytes # (Manual) Monocytes # (Manual) Eosinophils # (Manual) Percent Retic PT INR D-Dimer POC ABG pH POC ABG pCO2 POC ABG pO2 Sodium Potassium Chloride Carbon Dioxide BUN Creatinine Glucose POC Glucose 138 H Lactic Acid Calcium Phosphorus Ferritin Total Bilirubin Lactate Dehydrogenase Total Creatine Kinase CK-MB (CK-2) C-Reactive Protein NT-Pro-B Natriuret Pep Total Protein Albumin Triglycerides Urine WBC (Auto) 21.0 H Urine Creatinine 63.2 H Urine Total Protein 67 H Vancomycin Trough Random Vancomycin Absolute CD4 Count Absolute CD19 Count Crossmatch 10/03/16 10/03/16 10/04/16 21:37 23:44 04:00 WBC 30.3 H RBC 2.86 L Hgb 7.3 L Hct 22.6 L MCV MCH 25 L RDW 19.6 H Plt Count 125 L [place] # Baso # Seg Neutrophils % Seg Neuts % (Manual) Lymphocytes % (Manual) 12.0 L Monocytes % (Manual) Eosinophils % (Manual) 5.0 H Nucleated RBC % 30.0 H Seg Neutrophils # Seg Neutrophils # Man 12.7 H Abs Lymphs (Manual) Lymphocytes # (Manual) Monocytes # (Manual) 1.2 H Eosinophils # (Manual) 1.5 H Percent Retic PT INR D-Dimer POC ABG pH 7.271 L POC ABG pCO2 61.7 H POC ABG pO2 77 L Sodium Potassium Chloride Carbon Dioxide BUN Creatinine Glucose POC Glucose 130 H Lactic Acid Calcium Phosphorus Ferritin Total Bilirubin Lactate Dehydrogenase Total Creatine Kinase CK-MB (CK-2) C-Reactive Protein NT-Pro-B Natriuret Pep Total Protein Albumin Triglycerides Urine WBC (Auto) Urine Creatinine Urine Total Protein Vancomycin Trough Random Vancomycin Absolute CD4 Count Absolute CD19 Count Crossmatch 10/04/16 10/04/16 10/04/16 04:03 06:02 12:29 WBC RBC Hgb Hct MCV MCH RDW Plt Count [place] # Baso # Seg Neutrophils % Seg Neuts % (Manual) Lymphocytes % (Manual) Monocytes % (Manual) Eosinophils % (Manual) Nucleated RBC % Seg Neutrophils # Seg Neutrophils # Man Abs Lymphs (Manual) Lymphocytes # (Manual) Monocytes # (Manual) Eosinophils # (Manual) Percent Retic PT INR D-Dimer POC ABG pH 7.248 L POC ABG pCO2 62.3 H POC ABG pO2 59 L Sodium Potassium Chloride Carbon Dioxide BUN 40 H Creatinine 1.7 H Glucose 110 H POC Glucose 123 H Lactic Acid Calcium Phosphorus Ferritin Total Bilirubin Lactate Dehydrogenase Total Creatine Kinase CK-MB (CK-2) C-Reactive Protein NT-Pro-B Natriuret Pep Total Protein 5.6 L Albumin 2.1 L Triglycerides Urine WBC (Auto) Urine Creatinine Urine Total Protein Vancomycin Trough Random Vancomycin Absolute CD4 Count Absolute CD19 Count Crossmatch 10/04/16 10/04/16 10/04/16 12:39 15:14 17:45 WBC RBC Hgb Hct MCV MCH RDW Plt Count [place] # Baso # Seg Neutrophils % Seg Neuts % (Manual) Lymphocytes % (Manual) Monocytes % (Manual) Eosinophils % (Manual) Nucleated RBC % Seg Neutrophils # Seg Neutrophils # Man Abs Lymphs (Manual) Lymphocytes # (Manual) Monocytes # (Manual) Eosinophils # (Manual) Percent Retic PT INR D-Dimer POC ABG pH POC ABG pCO2 POC ABG pO2 109 H Sodium Potassium Chloride Carbon Dioxide BUN Creatinine Glucose POC Glucose 124 H Lactic Acid Calcium Phosphorus Ferritin Total Bilirubin Lactate Dehydrogenase Total Creatine Kinase CK-MB (CK-2) C-Reactive Protein NT-Pro-B Natriuret Pep Total Protein Albumin Triglycerides Urine WBC (Auto) Urine Creatinine Urine Total Protein Vancomycin Trough 45.5 H Random Vancomycin Absolute CD4 Count Absolute CD19 Count Crossmatch 10/04/16 10/04/16 10/05/16 20:13 23:05 01:27 WBC 36.1 H RBC 2.99 L Hgb 7.3 L Hct 23.5 L MCV MCH 25 L RDW 19.6 H Plt Count [place] # Baso # Seg Neutrophils % Seg Neuts % (Manual) Lymphocytes % (Manual) Monocytes % (Manual) Eosinophils % (Manual) Nucleated RBC % Seg Neutrophils # Seg Neutrophils # Man Abs Lymphs (Manual) Lymphocytes # (Manual) Monocytes # (Manual) Eosinophils # (Manual) Percent Retic PT INR D-Dimer POC ABG pH 7.341 L POC ABG pCO2 POC ABG pO2 47 L Sodium Potassium Chloride Carbon Dioxide BUN Creatinine Glucose POC Glucose 127 H Lactic Acid Calcium Phosphorus Ferritin Total Bilirubin Lactate Dehydrogenase Total Creatine Kinase CK-MB (CK-2) C-Reactive Protein NT-Pro-B Natriuret Pep Total Protein Albumin Triglycerides Urine WBC (Auto) Urine Creatinine Urine Total Protein Vancomycin Trough Random Vancomycin Absolute CD4 Count Absolute CD19 Count Crossmatch 10/05/16 10/05/16 10/05/16 01:27 03:50 05:00 WBC RBC Hgb Hct MCV MCH RDW Plt Count [place] # Baso # Seg Neutrophils % Seg Neuts % (Manual) Lymphocytes % (Manual) Monocytes % (Manual) Eosinophils % (Manual) Nucleated RBC % Seg Neutrophils # Seg Neutrophils # Man Abs Lymphs (Manual) Lymphocytes # (Manual) Monocytes # (Manual) Eosinophils # (Manual) Percent Retic PT INR D-Dimer POC ABG pH 7.330 L POC ABG pCO2 45.3 H POC ABG pO2 53 L Sodium Potassium Chloride Carbon Dioxide BUN 49 H Creatinine 1.6 H Glucose 112 H POC Glucose Lactic Acid Calcium Phosphorus Ferritin Total Bilirubin Lactate Dehydrogenase Total Creatine Kinase CK-MB (CK-2) C-Reactive Protein NT-Pro-B Natriuret Pep Total Protein Albumin Triglycerides Urine WBC (Auto) Urine Creatinine Urine Total Protein Vancomycin Trough Random Vancomycin 43.6 H Absolute CD4 Count Absolute CD19 Count Crossmatch 10/05/16 10/05/16 10/05/16 05:30 12:08 14:00 WBC RBC Hgb Hct MCV MCH RDW Plt Count [place] # Baso # Seg Neutrophils % Seg Neuts % (Manual) Lymphocytes % (Manual) Monocytes % (Manual) Eosinophils % (Manual) Nucleated RBC % Seg Neutrophils # Seg Neutrophils # Man Abs Lymphs (Manual) Lymphocytes # (Manual) Monocytes # (Manual) Eosinophils # (Manual) Percent Retic PT INR D-Dimer POC ABG pH POC ABG pCO2 POC ABG pO2 Sodium Potassium Chloride Carbon Dioxide BUN Creatinine Glucose POC Glucose 141 H 149 H Lactic Acid Calcium Phosphorus Ferritin Total Bilirubin Lactate Dehydrogenase Total Creatine Kinase CK-MB (CK-2) C-Reactive Protein 28.40 H NT-Pro-B Natriuret Pep Total Protein Albumin Triglycerides Urine WBC (Auto) Urine Creatinine Urine Total Protein Vancomycin Trough Random Vancomycin Absolute CD4 Count Absolute CD19 Count Crossmatch 10/05/16 10/05/16 10/05/16 15:37 16:41 17:15 WBC RBC Hgb Hct MCV MCH RDW Plt Count [place] # Baso # Seg Neutrophils % Seg Neuts % (Manual) Lymphocytes % (Manual) Monocytes % (Manual) Eosinophils % (Manual) Nucleated RBC % Seg Neutrophils # Seg Neutrophils # Man Abs Lymphs (Manual) Lymphocytes # (Manual) Monocytes # (Manual) Eosinophils # (Manual) Percent Retic PT INR D-Dimer POC ABG pH 7.157 L 7.133 L POC ABG pCO2 75.0 H 80.5 H POC ABG pO2 76 L Sodium Potassium Chloride Carbon Dioxide BUN Creatinine Glucose POC Glucose 151 H Lactic Acid Calcium Phosphorus Ferritin Total Bilirubin Lactate Dehydrogenase Total Creatine Kinase CK-MB (CK-2) C-Reactive Protein NT-Pro-B Natriuret Pep Total Protein Albumin Triglycerides Urine WBC (Auto) Urine Creatinine Urine Total Protein Vancomycin Trough Random Vancomycin Absolute CD4 Count Absolute CD19 Count Crossmatch 10/05/16 10/05/16 10/06/16 19:58 23:50 03:57 WBC 45.3 H* RBC 3.08 L Hgb 7.5 L Hct 24.5 L MCV MCH 25 L RDW 20.1 H Plt Count [place] # Baso # Seg Neutrophils % Seg Neuts % (Manual) 24.0 L Lymphocytes % (Manual) 10.0 L Monocytes % (Manual) Eosinophils % (Manual) Nucleated RBC % 36.0 H Seg Neutrophils # Seg Neutrophils # Man 10.9 H Abs Lymphs (Manual) Lymphocytes # (Manual) Monocytes # (Manual) 3.2 H Eosinophils # (Manual) 0.5 H Percent Retic PT INR D-Dimer POC ABG pH 7.198 L POC ABG pCO2 69.5 H POC ABG pO2 Sodium Potassium Chloride Carbon Dioxide BUN Creatinine Glucose POC Glucose 160 H Lactic Acid Calcium Phosphorus Ferritin Total Bilirubin Lactate Dehydrogenase Total Creatine Kinase CK-MB (CK-2) C-Reactive Protein NT-Pro-B Natriuret Pep Total Protein Albumin Triglycerides Urine WBC (Auto) Urine Creatinine Urine Total Protein Vancomycin Trough Random Vancomycin Absolute CD4 Count Absolute CD19 Count Crossmatch 10/06/16 10/06/16 10/06/16 03:57 05:38 06:08 WBC RBC Hgb Hct MCV MCH RDW Plt Count [place] # Baso # Seg Neutrophils % Seg Neuts % (Manual) Lymphocytes % (Manual) Monocytes % (Manual) Eosinophils % (Manual) Nucleated RBC % Seg Neutrophils # Seg Neutrophils # Man Abs Lymphs (Manual) Lymphocytes # (Manual) Monocytes # (Manual) Eosinophils # (Manual) Percent Retic PT INR D-Dimer POC ABG pH 7.226 L POC ABG pCO2 63.3 H POC ABG pO2 Sodium 152 H D Potassium Chloride 114.1 H Carbon Dioxide BUN 58 H Creatinine 1.6 H Glucose 123 H POC Glucose 129 H Lactic Acid Calcium Phosphorus Ferritin Total Bilirubin Lactate Dehydrogenase Total Creatine Kinase CK-MB (CK-2) C-Reactive Protein NT-Pro-B Natriuret Pep Total Protein Albumin Triglycerides Urine WBC (Auto) Urine Creatinine Urine Total Protein Vancomycin Trough Random Vancomycin Absolute CD4 Count Absolute CD19 Count Crossmatch 10/06/16 10/06/16 10/06/16 11:38 14:31 18:10 WBC RBC Hgb Hct MCV MCH RDW Plt Count [place] # Baso # Seg Neutrophils % Seg Neuts % (Manual) Lymphocytes % (Manual) Monocytes % (Manual) Eosinophils % (Manual) Nucleated RBC % Seg Neutrophils # Seg Neutrophils # Man Abs Lymphs (Manual) Lymphocytes # (Manual) Monocytes # (Manual) Eosinophils # (Manual) Percent Retic PT INR D-Dimer POC ABG pH 7.345 L POC ABG pCO2 49.5 H POC ABG pO2 60 L Sodium Potassium Chloride Carbon Dioxide BUN Creatinine Glucose POC Glucose 126 H 196 H Lactic Acid Calcium Phosphorus Ferritin Total Bilirubin Lactate Dehydrogenase Total Creatine Kinase CK-MB (CK-2) C-Reactive Protein NT-Pro-B Natriuret Pep Total Protein Albumin Triglycerides Urine WBC (Auto) Urine Creatinine Urine Total Protein Vancomycin Trough Random Vancomycin Absolute CD4 Count Absolute CD19 Count Crossmatch 10/06/16 10/07/16 10/07/16 21:07 00:55 00:55 WBC 55.1 H* RBC 3.06 L Hgb 7.5 L Hct 24.4 L MCV MCH 24 L RDW 20.7 H Plt Count [place] # Baso # Seg Neutrophils % Seg Neuts % (Manual) Lymphocytes % (Manual) 8.0 L Monocytes % (Manual) 9.0 H Eosinophils % (Manual) Nucleated RBC % 30.0 H Seg Neutrophils # Seg Neutrophils # Man 27.0 H Abs Lymphs (Manual) Lymphocytes # (Manual) Monocytes # (Manual) 5.0 H Eosinophils # (Manual) 0.6 H Percent Retic PT INR D-Dimer POC ABG pH 7.317 L POC ABG pCO2 55.2 H POC ABG pO2 59 L Sodium 148 H Potassium Chloride 110.2 H Carbon Dioxide BUN 56 H Creatinine 1.7 H Glucose 211 H POC Glucose Lactic Acid Calcium Phosphorus Ferritin Total Bilirubin Lactate Dehydrogenase Total Creatine Kinase CK-MB (CK-2) C-Reactive Protein NT-Pro-B Natriuret Pep Total Protein Albumin Triglycerides Urine WBC (Auto) Urine Creatinine Urine Total Protein Vancomycin Trough Random Vancomycin Absolute CD4 Count Absolute CD19 Count Crossmatch 10/07/16 10/07/16 10/07/16 01:01 05:20 06:31 WBC RBC Hgb Hct MCV MCH RDW Plt Count [place] # Baso # Seg Neutrophils % Seg Neuts % (Manual) Lymphocytes % (Manual) Monocytes % (Manual) Eosinophils % (Manual) Nucleated RBC % Seg Neutrophils # Seg Neutrophils # Man Abs Lymphs (Manual) Lymphocytes # (Manual) Monocytes # (Manual) Eosinophils # (Manual) Percent Retic PT INR D-Dimer POC ABG pH 7.310 L POC ABG pCO2 55.6 H POC ABG pO2 65 L Sodium Potassium Chloride Carbon Dioxide BUN Creatinine Glucose POC Glucose 249 H 235 H Lactic Acid Calcium Phosphorus Ferritin Total Bilirubin Lactate Dehydrogenase Total Creatine Kinase CK-MB (CK-2) C-Reactive Protein NT-Pro-B Natriuret Pep Total Protein Albumin Triglycerides Urine WBC (Auto) Urine Creatinine Urine Total Protein Vancomycin Trough Random Vancomycin Absolute CD4 Count Absolute CD19 Count Crossmatch 10/07/16 10/07/16 10/07/16 12:00 18:04 23:48 WBC RBC Hgb Hct MCV MCH RDW Plt Count [place] # Baso # Seg Neutrophils % Seg Neuts % (Manual) Lymphocytes % (Manual) Monocytes % (Manual) Eosinophils % (Manual) Nucleated RBC % Seg Neutrophils # Seg Neutrophils # Man Abs Lymphs (Manual) Lymphocytes # (Manual) Monocytes # (Manual) Eosinophils # (Manual) Percent Retic PT INR D-Dimer POC ABG pH POC ABG pCO2 POC ABG pO2 Sodium Potassium Chloride Carbon Dioxide BUN Creatinine Glucose POC Glucose 210 H 201 H 163 H Lactic Acid Calcium Phosphorus Ferritin Total Bilirubin Lactate Dehydrogenase Total Creatine Kinase CK-MB (CK-2) C-Reactive Protein NT-Pro-B Natriuret Pep Total Protein Albumin Triglycerides Urine WBC (Auto) Urine Creatinine Urine Total Protein Vancomycin Trough Random Vancomycin Absolute CD4 Count Absolute CD19 Count Crossmatch 10/08/16 10/08/16 10/08/16 04:00 04:00 04:10 WBC 58.0 H* RBC 2.95 L Hgb 7.3 L Hct 23.4 L MCV MCH 25 L RDW 20.8 H Plt Count [place] # Baso # Seg Neutrophils % Seg Neuts % (Manual) 75.0 H Lymphocytes % (Manual) 11.0 L Monocytes % (Manual) 8.0 H Eosinophils % (Manual) Nucleated RBC % 30.0 H Seg Neutrophils # Seg Neutrophils # Man 43.5 H Abs Lymphs (Manual) Lymphocytes # (Manual) 6.4 H Monocytes # (Manual) 4.6 H Eosinophils # (Manual) 0.6 H Percent Retic PT INR D-Dimer POC ABG pH POC ABG pCO2 POC ABG pO2 Sodium 152 H Potassium Chloride 111.4 H Carbon Dioxide BUN 59 H Creatinine 1.6 H Glucose 190 H POC Glucose 214 H Lactic Acid Calcium Phosphorus Ferritin Total Bilirubin Lactate Dehydrogenase Total Creatine Kinase CK-MB (CK-2) C-Reactive Protein NT-Pro-B Natriuret Pep Total Protein Albumin Triglycerides Urine WBC (Auto) Urine Creatinine Urine Total Protein Vancomycin Trough Random Vancomycin Absolute CD4 Count Absolute CD19 Count Crossmatch 10/08/16 10/08/16 10/08/16 04:46 12:11 18:35 WBC RBC Hgb Hct MCV MCH RDW Plt Count [place] # Baso # Seg Neutrophils % Seg Neuts % (Manual) Lymphocytes % (Manual) Monocytes % (Manual) Eosinophils % (Manual) Nucleated RBC % Seg Neutrophils # Seg Neutrophils # Man Abs Lymphs (Manual) Lymphocytes # (Manual) Monocytes # (Manual) Eosinophils # (Manual) Percent Retic PT INR D-Dimer POC ABG pH POC ABG pCO2 POC ABG pO2 65 L Sodium Potassium Chloride Carbon Dioxide BUN Creatinine Glucose POC Glucose 199 H 187 H Lactic Acid Calcium Phosphorus Ferritin Total Bilirubin Lactate Dehydrogenase Total Creatine Kinase CK-MB (CK-2) C-Reactive Protein NT-Pro-B Natriuret Pep Total Protein Albumin Triglycerides Urine WBC (Auto) Urine Creatinine Urine Total Protein Vancomycin Trough Random Vancomycin Absolute CD4 Count Absolute CD19 Count Crossmatch 10/08/16 10/09/16 10/09/16 23:38 04:43 05:38 WBC RBC Hgb Hct MCV MCH RDW Plt Count [place] # Baso # Seg Neutrophils % Seg Neuts % (Manual) Lymphocytes % (Manual) Monocytes % (Manual) Eosinophils % (Manual) Nucleated RBC % Seg Neutrophils # Seg Neutrophils # Man Abs Lymphs (Manual) Lymphocytes # (Manual) Monocytes # (Manual) Eosinophils # (Manual) Percent Retic PT INR D-Dimer POC ABG pH POC ABG pCO2 45.4 H POC ABG pO2 52 L Sodium Potassium Chloride Carbon Dioxide BUN Creatinine Glucose POC Glucose 202 H 182 H Lactic Acid Calcium Phosphorus Ferritin Total Bilirubin Lactate Dehydrogenase Total Creatine Kinase CK-MB (CK-2) C-Reactive Protein NT-Pro-B Natriuret Pep Total Protein Albumin Triglycerides Urine WBC (Auto) Urine Creatinine Urine Total Protein Vancomycin Trough Random Vancomycin Absolute CD4 Count Absolute CD19 Count Crossmatch 10/09/16 10/09/16 10/09/16 07:40 07:40 10:00 WBC 37.3 H RBC 2.55 L Hgb 6.4 L Hct 20.7 L MCV MCH 25 L RDW 20.6 H Plt Count [place] # Baso # Seg Neutrophils % Seg Neuts % (Manual) Lymphocytes % (Manual) Monocytes % (Manual) Eosinophils % (Manual) Nucleated RBC % Seg Neutrophils # Seg Neutrophils # Man Abs Lymphs (Manual) Lymphocytes # (Manual) Monocytes # (Manual) Eosinophils # (Manual) Percent Retic PT INR D-Dimer POC ABG pH POC ABG pCO2 POC ABG pO2 Sodium 153 H Potassium 3.3 L Chloride 112.7 H Carbon Dioxide BUN 62 H Creatinine 1.7 H Glucose 146 H POC Glucose Lactic Acid Calcium Phosphorus Ferritin Total Bilirubin Lactate Dehydrogenase Total Creatine Kinase CK-MB (CK-2) C-Reactive Protein NT-Pro-B Natriuret Pep Total Protein Albumin Triglycerides Urine WBC (Auto) Urine Creatinine Urine Total Protein Vancomycin Trough Random Vancomycin Absolute CD4 Count Absolute CD19 Count Crossmatch See Detail 10/09/16 10/09/16 10/10/16 12:06 17:08 00:01 WBC RBC Hgb Hct MCV MCH RDW Plt Count [place] # Baso # Seg Neutrophils % Seg Neuts % (Manual) Lymphocytes % (Manual) Monocytes % (Manual) Eosinophils % (Manual) Nucleated RBC % Seg Neutrophils # Seg Neutrophils # Man Abs Lymphs (Manual) Lymphocytes # (Manual) Monocytes # (Manual) Eosinophils # (Manual) Percent Retic PT INR D-Dimer POC ABG pH POC ABG pCO2 POC ABG pO2 Sodium Potassium Chloride Carbon Dioxide BUN Creatinine Glucose POC Glucose 214 H 152 H 189 H Lactic Acid Calcium Phosphorus Ferritin Total Bilirubin Lactate Dehydrogenase Total Creatine Kinase CK-MB (CK-2) C-Reactive Protein NT-Pro-B Natriuret Pep Total Protein Albumin Triglycerides Urine WBC (Auto) Urine Creatinine Urine Total Protein Vancomycin Trough Random Vancomycin Absolute CD4 Count Absolute CD19 Count Crossmatch 10/10/16 10/10/16 10/10/16 04:25 05:28 06:00 WBC RBC Hgb Hct MCV MCH RDW Plt Count [place] # Baso # Seg Neutrophils % Seg Neuts % (Manual) Lymphocytes % (Manual) Monocytes % (Manual) Eosinophils % (Manual) Nucleated RBC % Seg Neutrophils # Seg Neutrophils # Man Abs Lymphs (Manual) Lymphocytes # (Manual) Monocytes # (Manual) Eosinophils # (Manual) Percent Retic PT INR D-Dimer POC ABG pH POC ABG pCO2 58.3 H POC ABG pO2 68 L Sodium Potassium Chloride Carbon Dioxide BUN Creatinine Glucose POC Glucose 155 H Lactic Acid Calcium Phosphorus Ferritin Total Bilirubin Lactate Dehydrogenase Total Creatine Kinase CK-MB (CK-2) C-Reactive Protein NT-Pro-B Natriuret Pep Total Protein Albumin Triglycerides 407 H Urine WBC (Auto) Urine Creatinine Urine Total Protein Vancomycin Trough Random Vancomycin Absolute CD4 Count Absolute CD19 Count Crossmatch 10/10/16 10/10/16 10/10/16 06:00 06:00 06:00 WBC 38.5 H RBC 3.57 L Hgb 9.3 L Hct 30.1 L D MCV MCH 26 L RDW 22.0 H Plt Count 464 H [place] # Baso # Seg Neutrophils % Seg Neuts % (Manual) 81.0 H Lymphocytes % (Manual) 9.0 L Monocytes % (Manual) Eosinophils % (Manual) Nucleated RBC % 84.0 H Seg Neutrophils # Seg Neutrophils # Man 31.2 H Abs Lymphs (Manual) Lymphocytes # (Manual) Monocytes # (Manual) Eosinophils # (Manual) 1.2 H Percent Retic PT INR D-Dimer POC ABG pH POC ABG pCO2 POC ABG pO2 Sodium 153 H Potassium Chloride 108.3 H Carbon Dioxide 31 H BUN 62 H Creatinine 1.5 H Glucose 160 H POC Glucose Lactic Acid Calcium Phosphorus Ferritin 782.0 H Total Bilirubin Lactate Dehydrogenase Total Creatine Kinase CK-MB (CK-2) C-Reactive Protein NT-Pro-B Natriuret Pep Total Protein Albumin Triglycerides Urine WBC (Auto) Urine Creatinine Urine Total Protein Vancomycin Trough Random Vancomycin Absolute CD4 Count Absolute CD19 Count Crossmatch 10/10/16 10/10/16 10/10/16 11:29 13:03 13:03 WBC RBC Hgb Hct MCV MCH RDW Plt Count [place] # Baso # Seg Neutrophils % Seg Neuts % (Manual) Lymphocytes % (Manual) Monocytes % (Manual) Eosinophils % (Manual) Nucleated RBC % Seg Neutrophils # Seg Neutrophils # Man Abs Lymphs (Manual) 3936 H Lymphocytes # (Manual) Monocytes # (Manual) Eosinophils # (Manual) Percent Retic PT 17.6 H INR 1.45 H D-Dimer POC ABG pH POC ABG pCO2 POC ABG pO2 Sodium Potassium Chloride Carbon Dioxide BUN Creatinine Glucose POC Glucose 177 H Lactic Acid Calcium Phosphorus Ferritin Total Bilirubin Lactate Dehydrogenase Total Creatine Kinase CK-MB (CK-2) C-Reactive Protein NT-Pro-B Natriuret Pep Total Protein Albumin Triglycerides Urine WBC (Auto) Urine Creatinine Urine Total Protein Vancomycin Trough Random Vancomycin Absolute CD4 Count 2178 H Absolute CD19 Count 824 H Crossmatch 10/10/16 10/11/16 10/11/16 17:38 00:04 05:35 WBC RBC Hgb Hct MCV MCH RDW Plt Count [place] # Baso # Seg Neutrophils % Seg Neuts % (Manual) Lymphocytes % (Manual) Monocytes % (Manual) Eosinophils % (Manual) Nucleated RBC % Seg Neutrophils # Seg Neutrophils # Man Abs Lymphs (Manual) Lymphocytes # (Manual) Monocytes # (Manual) Eosinophils # (Manual) Percent Retic PT INR D-Dimer POC ABG pH POC ABG pCO2 56.6 H POC ABG pO2 63 L Sodium Potassium Chloride Carbon Dioxide BUN Creatinine Glucose POC Glucose 173 H 155 H Lactic Acid Calcium Phosphorus Ferritin Total Bilirubin Lactate Dehydrogenase Total Creatine Kinase CK-MB (CK-2) C-Reactive Protein NT-Pro-B Natriuret Pep Total Protein Albumin Triglycerides Urine WBC (Auto) Urine Creatinine Urine Total Protein Vancomycin Trough Random Vancomycin Absolute CD4 Count Absolute CD19 Count Crossmatch 10/11/16 10/11/16 10/11/16 06:01 11:43 12:54 WBC 31.8 H RBC Hgb Hct MCV MCH RDW 17.8 H Plt Count [place] # Baso # Seg Neutrophils % Seg Neuts % (Manual) 84.0 H Lymphocytes % (Manual) 9.0 L Monocytes % (Manual) Eosinophils % (Manual) Nucleated RBC % 28.0 H Seg Neutrophils # Seg Neutrophils # Man 27.1 H Abs Lymphs (Manual) Lymphocytes # (Manual) Monocytes # (Manual) 1.6 H Eosinophils # (Manual) Percent Retic PT INR D-Dimer POC ABG pH POC ABG pCO2 POC ABG pO2 Sodium Potassium Chloride Carbon Dioxide BUN Creatinine Glucose POC Glucose 231 H 185 H Lactic Acid Calcium Phosphorus Ferritin Total Bilirubin Lactate Dehydrogenase Total Creatine Kinase CK-MB (CK-2) C-Reactive Protein NT-Pro-B Natriuret Pep Total Protein Albumin Triglycerides Urine WBC (Auto) Urine Creatinine Urine Total Protein Vancomycin Trough Random Vancomycin Absolute CD4 Count Absolute CD19 Count Crossmatch 10/11/16 10/11/16 10/11/16 12:54 14:10 18:02 WBC RBC Hgb Hct MCV MCH RDW Plt Count [place] # Baso # Seg Neutrophils % Seg Neuts % (Manual) Lymphocytes % (Manual) Monocytes % (Manual) Eosinophils % (Manual) Nucleated RBC % Seg Neutrophils # Seg Neutrophils # Man Abs Lymphs (Manual) Lymphocytes # (Manual) Monocytes # (Manual) Eosinophils # (Manual) Percent Retic PT INR D-Dimer POC ABG pH 7.311 L POC ABG pCO2 71.4 H POC ABG pO2 59 L Sodium Potassium Chloride 97.1 L Carbon Dioxide BUN 57 H Creatinine 1.6 H Glucose 369 H POC Glucose 206 H Lactic Acid Calcium 8.2 L Phosphorus Ferritin Total Bilirubin Lactate Dehydrogenase Total Creatine Kinase CK-MB (CK-2) C-Reactive Protein NT-Pro-B Natriuret Pep Total Protein Albumin Triglycerides Urine WBC (Auto) Urine Creatinine Urine Total Protein Vancomycin Trough Random Vancomycin Absolute CD4 Count Absolute CD19 Count Crossmatch 10/11/16 10/11/16 10/12/16 20:57 21:23 00:43 WBC RBC Hgb Hct MCV MCH RDW Plt Count [place] # Baso # Seg Neutrophils % Seg Neuts % (Manual) Lymphocytes % (Manual) Monocytes % (Manual) Eosinophils % (Manual) Nucleated RBC % Seg Neutrophils # Seg Neutrophils # Man Abs Lymphs (Manual) Lymphocytes # (Manual) Monocytes # (Manual) Eosinophils # (Manual) Percent Retic PT INR D-Dimer POC ABG pH 7.242 L POC ABG pCO2 88.4 H POC ABG pO2 57 L Sodium Potassium Chloride Carbon Dioxide BUN Creatinine Glucose POC Glucose 212 H Lactic Acid Calcium Phosphorus Ferritin Total Bilirubin Lactate Dehydrogenase Total Creatine Kinase CK-MB (CK-2) C-Reactive Protein 3.00 H NT-Pro-B Natriuret Pep Total Protein Albumin Triglycerides Urine WBC (Auto) Urine Creatinine Urine Total Protein Vancomycin Trough Random Vancomycin Absolute CD4 Count Absolute CD19 Count Crossmatch 10/12/16 10/12/16 10/12/16 05:49 06:03 06:57 WBC 37.0 H RBC Hgb Hct MCV MCH RDW 18.0 H Plt Count [place] # 2.0 H Baso # 0.2 H Seg Neutrophils % 86.7 H Seg Neuts % (Manual) 91.5 H Lymphocytes % (Manual) 6.0 L Monocytes % (Manual) Eosinophils % (Manual) Nucleated RBC % 15.5 H Seg Neutrophils # 30.6 H Seg Neutrophils # Man 33.9 H Abs Lymphs (Manual) Lymphocytes # (Manual) Monocytes # (Manual) Eosinophils # (Manual) Percent Retic PT INR D-Dimer POC ABG pH 7.289 L POC ABG pCO2 82.4 H POC ABG pO2 65 L Sodium Potassium Chloride Carbon Dioxide BUN Creatinine Glucose POC Glucose 230 H Lactic Acid Calcium Phosphorus Ferritin Total Bilirubin Lactate Dehydrogenase Total Creatine Kinase CK-MB (CK-2) C-Reactive Protein NT-Pro-B Natriuret Pep Total Protein Albumin Triglycerides Urine WBC (Auto) Urine Creatinine Urine Total Protein Vancomycin Trough Random Vancomycin Absolute CD4 Count Absolute CD19 Count Crossmatch 10/12/16 10/12/16 10/12/16 06:57 11:59 17:00 WBC RBC Hgb Hct MCV MCH RDW Plt Count [place] # Baso # Seg Neutrophils % Seg Neuts % (Manual) Lymphocytes % (Manual) Monocytes % (Manual) Eosinophils % (Manual) Nucleated RBC % Seg Neutrophils # Seg Neutrophils # Man Abs Lymphs (Manual) Lymphocytes # (Manual) Monocytes # (Manual) Eosinophils # (Manual) Percent Retic PT INR D-Dimer POC ABG pH POC ABG pCO2 POC ABG pO2 Sodium 151 H D 130 L D Potassium Chloride Carbon Dioxide 32 H BUN 62 H Creatinine 1.6 H Glucose 231 H POC Glucose 222 H Lactic Acid Calcium Phosphorus 4.90 H Ferritin Total Bilirubin Lactate Dehydrogenase Total Creatine Kinase CK-MB (CK-2) C-Reactive Protein NT-Pro-B Natriuret Pep Total Protein Albumin Triglycerides Urine WBC (Auto) Urine Creatinine Urine Total Protein Vancomycin Trough Random Vancomycin Absolute CD4 Count Absolute CD19 Count Crossmatch 10/12/16 10/12/16 10/12/16 17:41 22:04 23:25 WBC RBC Hgb Hct MCV MCH RDW Plt Count [place] # Baso # Seg Neutrophils % Seg Neuts % (Manual) Lymphocytes % (Manual) Monocytes % (Manual) Eosinophils % (Manual) Nucleated RBC % Seg Neutrophils # Seg Neutrophils # Man Abs Lymphs (Manual) Lymphocytes # (Manual) Monocytes # (Manual) Eosinophils # (Manual) Percent Retic PT INR D-Dimer POC ABG pH 7.264 L POC ABG pCO2 89.1 H POC ABG pO2 62 L Sodium Potassium Chloride Carbon Dioxide BUN Creatinine Glucose POC Glucose 223 H 160 H Lactic Acid Calcium Phosphorus Ferritin Total Bilirubin Lactate Dehydrogenase Total Creatine Kinase CK-MB (CK-2) C-Reactive Protein NT-Pro-B Natriuret Pep Total Protein Albumin Triglycerides Urine WBC (Auto) Urine Creatinine Urine Total Protein Vancomycin Trough Random Vancomycin Absolute CD4 Count Absolute CD19 Count Crossmatch 10/13/16 10/13/16 10/13/16 05:30 06:00 06:00 WBC 25.9 H RBC Hgb Hct MCV MCH RDW 18.1 H Plt Count [place] # Baso # Seg Neutrophils % Seg Neuts % (Manual) 85.0 H Lymphocytes % (Manual) 9.0 L Monocytes % (Manual) Eosinophils % (Manual) Nucleated RBC % 6.0 H Seg Neutrophils # Seg Neutrophils # Man 22.0 H Abs Lymphs (Manual) Lymphocytes # (Manual) Monocytes # (Manual) 1.4 H Eosinophils # (Manual) Percent Retic PT INR D-Dimer POC ABG pH 7.281 L POC ABG pCO2 89.6 H POC ABG pO2 63 L Sodium 148 H D Potassium Chloride Carbon Dioxide 36 H BUN 58 H Creatinine 1.3 H Glucose 189 H POC Glucose Lactic Acid Calcium Phosphorus Ferritin Total Bilirubin Lactate Dehydrogenase Total Creatine Kinase CK-MB (CK-2) C-Reactive Protein NT-Pro-B Natriuret Pep Total Protein Albumin Triglycerides Urine WBC (Auto) Urine Creatinine Urine Total Protein Vancomycin Trough Random Vancomycin Absolute CD4 Count Absolute CD19 Count Crossmatch 10/13/16 10/13/16 10/13/16 06:20 11:10 17:26 WBC RBC Hgb Hct MCV MCH RDW Plt Count [place] # Baso # Seg Neutrophils % Seg Neuts % (Manual) Lymphocytes % (Manual) Monocytes % (Manual) Eosinophils % (Manual) Nucleated RBC % Seg Neutrophils # Seg Neutrophils # Man Abs Lymphs (Manual) Lymphocytes # (Manual) Monocytes # (Manual) Eosinophils # (Manual) Percent Retic PT INR D-Dimer POC ABG pH POC ABG pCO2 POC ABG pO2 Sodium Potassium Chloride Carbon Dioxide BUN Creatinine Glucose POC Glucose 192 H 198 H 162 H Lactic Acid Calcium Phosphorus Ferritin Total Bilirubin Lactate Dehydrogenase Total Creatine Kinase CK-MB (CK-2) C-Reactive Protein NT-Pro-B Natriuret Pep Total Protein Albumin Triglycerides Urine WBC (Auto) Urine Creatinine Urine Total Protein Vancomycin Trough Random Vancomycin Absolute CD4 Count Absolute CD19 Count Crossmatch 10/13/16 10/13/16 10/13/16 20:40 20:57 23:33 WBC RBC Hgb Hct MCV MCH RDW Plt Count [place] # Baso # Seg Neutrophils % Seg Neuts % (Manual) Lymphocytes % (Manual) Monocytes % (Manual) Eosinophils % (Manual) Nucleated RBC % Seg Neutrophils # Seg Neutrophils # Man Abs Lymphs (Manual) Lymphocytes # (Manual) Monocytes # (Manual) Eosinophils # (Manual) Percent Retic PT INR D-Dimer POC ABG pH 7.201 L 7.455 H POC ABG pCO2 111.2 H 54.2 H POC ABG pO2 45 L 57 L Sodium 148 H Potassium Chloride Carbon Dioxide BUN Creatinine Glucose POC Glucose Lactic Acid Calcium Phosphorus Ferritin Total Bilirubin Lactate Dehydrogenase Total Creatine Kinase CK-MB (CK-2) C-Reactive Protein NT-Pro-B Natriuret Pep Total Protein Albumin Triglycerides Urine WBC (Auto) Urine Creatinine Urine Total Protein Vancomycin Trough Random Vancomycin Absolute CD4 Count Absolute CD19 Count Crossmatch 10/14/16 10/14/16 10/14/16 00:48 04:12 05:30 WBC 23.1 H RBC 3.49 L Hgb 9.9 L Hct MCV MCH RDW 16.9 H Plt Count [place] # Baso # Seg Neutrophils % Seg Neuts % (Manual) 82.0 H Lymphocytes % (Manual) 9.0 L Monocytes % (Manual) Eosinophils % (Manual) Nucleated RBC % 2.0 H Seg Neutrophils # Seg Neutrophils # Man 18.9 H Abs Lymphs (Manual) Lymphocytes # (Manual) Monocytes # (Manual) 1.4 H Eosinophils # (Manual) Percent Retic PT INR D-Dimer POC ABG pH 7.497 H POC ABG pCO2 49.4 H POC ABG pO2 60 L Sodium Potassium Chloride Carbon Dioxide BUN Creatinine Glucose POC Glucose 147 H Lactic Acid Calcium Phosphorus Ferritin Total Bilirubin Lactate Dehydrogenase Total Creatine Kinase CK-MB (CK-2) C-Reactive Protein NT-Pro-B Natriuret Pep Total Protein Albumin Triglycerides Urine WBC (Auto) Urine Creatinine Urine Total Protein Vancomycin Trough Random Vancomycin Absolute CD4 Count Absolute CD19 Count Crossmatch 10/14/16 10/14/16 05:30 05:53 WBC RBC Hgb Hct MCV MCH RDW Plt Count [place] # Baso # Seg Neutrophils % Seg Neuts % (Manual) Lymphocytes % (Manual) Monocytes % (Manual) Eosinophils % (Manual) Nucleated RBC % Seg Neutrophils # Seg Neutrophils # Man Abs Lymphs (Manual) Lymphocytes # (Manual) Monocytes # (Manual) Eosinophils # (Manual) Percent Retic PT INR D-Dimer POC ABG pH POC ABG pCO2 POC ABG pO2 Sodium 146 H Potassium Chloride Carbon Dioxide 35 H BUN 56 H Creatinine 1.3 H Glucose 155 H POC Glucose 156 H Lactic Acid Calcium Phosphorus 1.90 L D Ferritin Total Bilirubin Lactate Dehydrogenase Total Creatine Kinase CK-MB (CK-2) C-Reactive Protein NT-Pro-B Natriuret Pep Total Protein Albumin Triglycerides Urine WBC (Auto) Urine Creatinine Urine Total Protein Vancomycin Trough Random Vancomycin Absolute CD4 Count Absolute CD19 Count Crossmatch Chest x-ray: image reviewed Allied health notes reviewed: RT
--- NOTE | 2016-10-14 10:53 | Progress Note ---
Assessment and Plan Assessment and plan: The patient is a 41-year-old female with a history of sickle cell disease who was admitted for total hip arthroplasty for avascular necrosis of the left hip. She had left total hip arthroplasty on 09/25/2016 and developed acute hypoxemic respiratory failure following the POD 2 likely from ARDS and ultimately required intubation on 09/27/2016. Her hemoglobin level dropped from 8.1-6.9 on 09/30/2016, also noted to have hypokalemia with potassium level 3.1. Hospitalist service consulted for medical management. Patient remained in a I intubated with mechanical ventilation. Her white count continued to trend up. Maintained on sepsis protocol, CT scan of abdomen and pelvis and thorax done without contrast to identify the source for infection. CT scan of the chest was suggestive for possible pneumonia. She is currently on broad- spectrum antibiotics, critically ill with poor prognosis. Acute hypoxic respiratory failure -has required mechanical vent for > 96 hours - likely due to ARDS with PNA, intubated on 09/27/16 - on mechanical ventilation, still hoping to wean off vent -consider tracheostomy for prison weaning when patient is more stable - pulmonary following, cont nebulizer, vent support, has completed antibiotics - wean off as tolerated -Pulmonary input appreciated, patient for bronchoscopy with BAL When clinically more stable Sepsis syndrome - Likely from pneumonia - Spiking temp intermittently, wbc count continue to increased Patient has completed a 7 day course of antibiotics for treatment of sepsis/ pneumonia, ID input appreciated, on flagyl Severe anemia - History of thalassemia major - has received multiple prbc transfusion, and received exchange transfusion on 10/10/16 Transfuse to keep Hg above 7.5 - hematology following - Avscular necrosis of the left hip - s/p total left hip arthoplasty on 09/25/16 Hypokalemia -Status post replacement, continue to replete as needed Hypernatremia -Continue free water via gastric tube, improving Hypophosphatemia replace IV and via G tube and recheck CARLYN - likely from sepsis syndrome and ATN - monitor renal function - nephrology following, diuretic doses have been reduced, renal function improving Leukocytosis Most likely leukemoid reaction, improving, hematology input appreciated, flow cytometry has been ordered by the retail pos specialist Prognosis remains guarded; Critical care time 32 minutes NOK Son: Jordan Love [phone] Son: Gino kodi: [phone] Daughter: Varun Love [phone] Dispo: LTACH Hospitalist Physical - Constitutional Vitals: Temp Pulse Resp BP Pulse Ox 99.8 F H 98 H 30 H 89/46 100 10/14/16 08:00 10/14/16 10:10 10/14/16 09:42 10/14/16 10:00 10/14/16 10:10 General appearance: Present: severe distress Results - Labs CBC & Chem 7: 10/14/16 05:30 10/14/16 05:30 Labs: Laboratory Last Values WBC 23.1 K/mm3 (4.5-11.0) H 10/14/16 05:30 RBC 3.49 M/mm3 (3.65-5.03) L 10/14/16 05:30 Hgb 9.9 gm/dl (10.1-14.3) L 10/14/16 05:30 Hct 31.1 % (30.3-42.9) 10/14/16 05:30 MCV 89 fl (79-97) 10/14/16 05:30 MCH 28 pg (28-32) 10/14/16 05:30 MCHC 32 % (30-34) 10/14/16 05:30 RDW 16.9 % (13.2-15.2) H 10/14/16 05:30 Plt Count 224 K/mm3 (140-440) 10/14/16 05:30 Lymph % (Auto) 33.3 % (13.4-35.0) 09/20/16 10:35 [place] % (Auto) 5.8 % (0.0-7.3) 10/12/16 06:57 Eos % (Auto) 0.3 % (0.0-4.3) 10/12/16 06:57 Baso % (Auto) 0.7 % (0.0-1.8) 09/20/16 10:35 Lymph # [employer] Apprentice 10/11/16 12:54 [place] # 2.0 K/mm3 (0.0-0.8) H 10/12/16 06:57 Eos # 0.1 K/mm3 (0.0-0.4) 10/12/16 06:57 Baso # 0.2 K/mm3 (0.0-0.1) H 10/12/16 06:57 Add Manual Diff Complete 10/14/16 05:30 Total Counted 100 10/14/16 05:30 Seg Neutrophils % 86.7 % (40.0-70.0) H 10/12/16 06:57 Seg Neuts % (Manual) 82.0 % (40.0-70.0) H 10/14/16 05:30 Band Neutrophils % 3.0 % 10/14/16 05:30 Lymphocytes % (Manual) 9.0 % (13.4-35.0) L 10/14/16 05:30 Reactive Lymphs % (Man) 0 % 10/14/16 05:30 Monocytes % (Manual) 6.0 % (0.0-7.3) 10/14/16 05:30 Eosinophils % (Manual) 0 % (0.0-4.3) 10/14/16 05:30 Basophils % (Manual) 0 % (0.0-1.8) 10/14/16 05:30 Metamyelocytes % 0 % 10/14/16 05:30 Myelocytes % 0 % 10/14/16 05:30 Promyelocytes % 0 % 10/14/16 05:30 Blast Cells % 0 % 10/14/16 05:30 Nucleated RBC % 2.0 % (0.0-0.9) H 10/14/16 05:30 Seg Neutrophils # 30.6 K/mm3 (1.8-7.7) H 10/12/16 06:57 Seg Neutrophils # Man 18.9 K/mm3 (1.8-7.7) H 10/14/16 05:30 Band Neutrophils # 0.7 K/mm3 10/14/16 05:30 Abs Lymphs (Manual) 3936 cells/uL (850-3900) H 10/10/16 13:03 Lymphocytes # (Manual) 2.1 K/mm3 (1.2-5.4) 10/14/16 05:30 Abs React Lymphs (Man) 0.0 K/mm3 10/14/16 05:30 Monocytes # (Manual) 1.4 K/mm3 (0.0-0.8) H 10/14/16 05:30 Eosinophils # (Manual) 0.0 K/mm3 (0.0-0.4) 10/14/16 05:30 Basophils # (Manual) 0.0 K/mm3 (0.0-0.1) 10/14/16 05:30 Metamyelocytes # 0.0 K/mm3 10/14/16 05:30 Myelocytes # 0.0 K/mm3 10/14/16 05:30 Promyelocytes # 0.0 K/mm3 10/14/16 05:30 Blast Cells # 0.0 K/mm3 10/14/16 05:30 Pathologist Review 10/10/16 06:00 WBC Morphology Not Reportable 10/14/16 05:30 Hypersegmented Neuts Not Reportable 10/14/16 05:30 Hyposegmented Neuts Not Reportable 10/14/16 05:30 Hypogranular Neuts Not Reportable 10/14/16 05:30 Smudge Cells Not Reportable 10/14/16 05:30 Toxic Granulation Not Reportable 10/14/16 05:30 Toxic Vacuolation Not Reportable 10/14/16 05:30 Dohle Bodies Not Reportable 10/14/16 05:30 Pelger-Huet Anomaly Not Reportable 10/14/16 05:30 Jaspreet Rods Not Reportable 10/14/16 05:30 Platelet Estimate Consistent w auto 10/14/16 05:30 Clumped Platelets Not Reportable 10/14/16 05:30 Plt Clumps, EDTA Not Reportable 10/14/16 05:30 Large Platelets Not Reportable 10/14/16 05:30 Giant Platelets Not Reportable 10/14/16 05:30 Platelet Satelliting Not Reportable 10/14/16 05:30 Plt Morphology Comment Not Reportable 10/14/16 05:30 RBC Morphology Not Reportable 10/14/16 05:30 Dimorphic RBCs Not Reportable 10/14/16 05:30 Polychromasia Not Reportable 10/14/16 05:30 Hypochromasia Not Reportable 10/14/16 05:30 Poikilocytosis Not Reportable 10/14/16 05:30 Basophilic Stippling Few 10/10/16 06:00 Anisocytosis 1+ 10/14/16 05:30 Microcytosis Not Reportable 10/14/16 05:30 Macrocytosis Not Reportable 10/14/16 05:30 Spherocytes Not Reportable 10/14/16 05:30 Pappenheimer Bodies Not Reportable 10/14/16 05:30 Sickle Cells Not Reportable 10/14/16 05:30 Target Cells Not Reportable 10/14/16 05:30 Tear Drop Cells Not Reportable 10/14/16 05:30 Ovalocytes Not Reportable 10/14/16 05:30 Stomatocytes 1+ 10/14/16 05:30 Helmet Cells Not Reportable 10/14/16 05:30 Villatoro-Fries Bodies Not Reportable 10/14/16 05:30 [place] Rings Not Reportable 10/14/16 05:30 [place] Cells Not Reportable 10/14/16 05:30 Bite Cells Not Reportable 10/14/16 05:30 Crenated Cell Not Reportable 10/14/16 05:30 Elliptocytes Not Reportable 10/14/16 05:30 Acanthocytes (Spur) Not Reportable 10/14/16 05:30 Rouleaux Not Reportable 10/14/16 05:30 Hemoglobin C Crystals Not Reportable 10/14/16 05:30 Schistocytes Not Reportable 10/14/16 05:30 Malaria parasites Not Reportable 10/14/16 05:30 Percent Retic 8.11 % (0.78-2.58) H 09/27/16 22:47 Jeffrey Bodies Not Reportable 10/14/16 05:30 Hem Pathologist Commnt No 10/14/16 05:30 PT 17.6 Sec. (12.2-14.9) H 10/10/16 13:03 INR 1.45 (0.87-1.13) H 10/10/16 13:03 APTT 31.1 Sec. (24.2-36.6) 09/20/16 10:35 D-Dimer 4758.12 ng/mlDDU (0-234) H 09/27/16 22:47 POC ABG pH 7.497 (7.35-7.45) H 10/14/16 04:12 POC ABG pCO2 49.4 (35-45) H 10/14/16 04:12 POC ABG pO2 60 (80-105) L 10/14/16 04:12 POC ABG HCO3 38.2 10/14/16 04:12 POC ABG Total CO2 40 10/14/16 04:12 POC ABG O2 Sat 92 10/14/16 04:12 POC ABG Base Excess 15 10/14/16 04:12 FiO2 60 % 10/14/16 04:12 Sodium 146 mmol/L (137-145) H 10/14/16 05:30 Potassium 3.6 mmol/L (3.6-5.0) D 10/14/16 05:30 Chloride 101.2 mmol/L (98-107) 10/14/16 05:30 Carbon Dioxide 35 mmol/L (22-30) H 10/14/16 05:30 Anion Gap 13 mmol/L 10/14/16 05:30 BUN 56 mg/dL (7-17) H 10/14/16 05:30 Creatinine 1.3 mg/dL (0.7-1.2) H 10/14/16 05:30 Estimated GFR 55 ml/min 10/14/16 05:30 BUN/Creatinine Ratio 43.07 % 10/14/16 05:30 Glucose 155 mg/dL (65-100) H 10/14/16 05:30 POC Glucose 156 (70-105) H 10/14/16 05:53 Osmolality 311 Mosm/kg 10/04/16 04:03 Lactic Acid 1.00 mmol/L (0.7-2.0) 10/11/16 20:57 Calcium 8.8 mg/dL (8.4-10.2) 10/14/16 05:30 Phosphorus 1.90 mg/dL (2.5-4.5) L D 10/14/16 05:30 Ferritin 782.0 ng/mL (13.0-400.0) H 10/10/16 06:00 Total Bilirubin 1.20 mg/dL (0.1-1.2) 10/04/16 04:03 AST 31 units/L (5-40) 10/04/16 04:03 ALT 33 units/L (7-56) 10/04/16 04:03 Alkaline Phosphatase 100 units/L (35-129) 10/04/16 04:03 Lactate Dehydrogenase 829 units/L (91-180) H 09/27/16 22:47 Total Creatine Kinase 3575 units/L (30-135) H 09/27/16 14:40 CK-MB (CK-2) 11.0 ng/mL (0.0-4.0) H 09/27/16 14:40 CK-MB (CK-2) Rel Index 0.3 (0-4) 09/27/16 14:40 Troponin T < 0.010 ng/mL (0.00-0.029) 09/27/16 14:40 C-Reactive Protein 3.00 mg/dL (0.00-1.30) H 10/11/16 20:57 NT-Pro-B Natriuret Pep 2018 pg/mL (0-450) H 09/30/16 14:05 Total Protein 5.6 g/dL (6.3-8.2) L 10/04/16 04:03 Albumin 2.1 g/dL (3.9-5) L 10/04/16 04:03 Albumin/Globulin Ratio 0.6 % 10/04/16 04:03 Triglycerides 407 mg/dL (2-149) H 10/10/16 06:00 Urine Color Yellow (Yellow) 10/03/16 15:54 Urine Turbidity Cloudy (Clear) 10/03/16 15:54 Urine pH 5.0 (5.0-7.0) 10/03/16 15:54 Ur Specific [place] 1.013 (1.003-1.030) 10/03/16 15:54 Urine Protein 30 mg/dl mg/dL (Negative) 10/03/16 15:54 Urine Glucose (UA) Neg mg/dL (Negative) 10/03/16 15:54 Urine Ketones Neg mg/dL (Negative) 10/03/16 15:54 Urine Blood Lg (Negative) 10/03/16 15:54 Urine Nitrite Neg (Negative) 10/03/16 15:54 Urine Bilirubin Neg (Negative) 10/03/16 15:54 Urine Urobilinogen < 2.0 mg/dL (<2.0) 10/03/16 15:54 Ur Leukocyte Esterase Tr (Negative) 10/03/16 15:54 Urine WBC (Auto) 21.0 /HPF (0.0-6.0) H 10/03/16 15:54 Urine RBC (Auto) 65.0 /HPF (0.0-6.0) 10/03/16 15:54 U Epithel Cells (Auto) 2.0 /HPF (0-13.0) 10/03/16 15:54 Urine Bacteria (Auto) 3+ /HPF (Negative) 10/03/16 15:54 Amorphous Crystals 1+ 10/03/16 15:54 Urine Mucus Few /HPF 10/03/16 15:54 Urine Creatinine 63.2 mg/dL (0.1-20.0) H 10/03/16 15:54 Urine Sodium 20 mEq/L 10/03/16 15:54 Urine Total Protein 67 mg/dL (5-11.8) H 10/03/16 15:54 Vancomycin Trough 45.5 ug/mL (5.0-20.0) H 10/04/16 12:39 Random Vancomycin 14.9 ug/mL (0-40.0) 10/07/16 05:25 Lymph Enumerat CD4/CD8 2.87 (0.86-5.00) 10/10/16 13:03 % CD3 Cells 73 % (57-85) 10/10/16 13:03 Absolute CD3 Count 2879 cells/uL (840-3060) 10/10/16 13:03 % CD4 Cells 55 % (30-61) 10/10/16 13:03 Absolute CD4 Count 2178 cells/uL (490-1740) H 10/10/16 13:03 % CD8 Cells 19 % (12-42) 10/10/16 13:03 Absolute CD8 Count 759 cells/uL (180-1170) 10/10/16 13:03 % CD19 Cells 21 % (6-29) 10/10/16 13:03 Absolute CD19 Count 824 cells/uL (110-660) H 10/10/16 13:03 Blood Type O POSITIVE 10/09/16 10:00 Antibody Screen TNR 10/01/16 00:55 DEACON Antibody Screen Negative 10/09/16 10:00 Crossmatch See Detail 10/09/16 10:00
[2016-10-14] MEDS ORDERED: SODIUM PHOSPHATE 30 MMOL in NACL 0.9% 500 ML 500 ML IV ONE (11:30)
--- NOTE | 2016-10-14 12:52 | Progress Note ---
Assessment and Plan 1) Avascular necrosis of bone of left hip Current Visit: Yes Status: Chronic Plan to address problem: S/P Athroplasty to left hip on 09/25/16 (2) Acute respiratory failure with hypoxia Current Visit: Yes Status: Acute Plan to address problem: ARDS, On vent support as per pulmonary (3) Acute renal failure due to tubular necrosis Current Visit: Yes Status: Acute Plan to address problem: Cr and BUN are stable, good UOP Avoid Nephrotoxic agents Renally dose medications Monitor I/O's (4) Sepsis syndrome Current Visit: Yes Status: Acute Plan to address problem: ID on board. negative cultures (5) Acute hypernatremia Current Visit: Yes Status: Acute Plan to address problem: cont D5W and water flsuhes will sign off, please re consult as needed. Subjective Date of service: 10/14/16 Principal diagnosis: Acute Hypoxemic Respiratory Failure; ARDS Interval history: sedated and intubated, no family at bedside Objective - Vital Signs Vital signs: Vital Signs - 12hr 10/14/16 10/14/16 10/14/16 01:00 01:10 01:20 Temperature Pulse Rate 92 H 102 H 96 H Pulse Rate [ Anterior Bilateral Throughout] Pulse Rate [ From Monitor] Respiratory Rate Respiratory Rate [Anterior Bilateral Throughout] Blood Pressure 109/69 109/69 109/69 O2 Sat by Pulse 99 96 Oximetry 10/14/16 10/14/16 10/14/16 01:30 01:40 01:50 Temperature Pulse Rate 98 H 94 H 94 H Pulse Rate [ Anterior Bilateral Throughout] Pulse Rate [ From Monitor] Respiratory Rate Respiratory Rate [Anterior Bilateral Throughout] Blood Pressure 95/62 95/62 95/62 O2 Sat by Pulse 96 97 Oximetry 10/14/16 10/14/16 10/14/16 02:00 02:10 02:20 Temperature Pulse Rate 92 H 92 H 95 H Pulse Rate [ Anterior Bilateral Throughout] Pulse Rate [ From Monitor] Respiratory Rate Respiratory Rate [Anterior Bilateral Throughout] Blood Pressure 103/60 103/60 103/60 O2 Sat by Pulse 97 97 Oximetry 10/14/16 10/14/16 10/14/16 02:30 02:40 02:50 Temperature Pulse Rate 93 H 93 H 91 H Pulse Rate [ Anterior Bilateral Throughout] Pulse Rate [ From Monitor] Respiratory Rate Respiratory Rate [Anterior Bilateral Throughout] Blood Pressure 106/64 106/64 106/64 O2 Sat by Pulse 98 98 Oximetry 10/14/16 10/14/16 10/14/16 03:00 03:10 03:14 Temperature Pulse Rate 92 H 94 H 91 H Pulse Rate [ Anterior Bilateral Throughout] Pulse Rate [ From Monitor] Respiratory Rate Respiratory Rate [Anterior Bilateral Throughout] Blood Pressure 111/60 111/60 111/60 O2 Sat by Pulse 98 99 Oximetry 10/14/16 10/14/16 10/14/16 03:20 03:30 03:40 Temperature Pulse Rate 91 H 91 H 90 Pulse Rate [ Anterior Bilateral Throughout] Pulse Rate [ From Monitor] Respiratory Rate Respiratory Rate [Anterior Bilateral Throughout] Blood Pressure 111/60 99/64 99/64 O2 Sat by Pulse 97 97 Oximetry 10/14/16 10/14/16 10/14/16 03:50 04:00 04:10 Temperature 992 F H Pulse Rate 91 H 88 88 Pulse Rate [ Anterior Bilateral Throughout] Pulse Rate [ From Monitor] Respiratory 30 H Rate Respiratory Rate [Anterior Bilateral Throughout] Blood Pressure 99/64 99/64 106/61 O2 Sat by Pulse 97 98 Oximetry 10/14/16 10/14/16 10/14/16 04:20 04:30 04:40 Temperature Pulse Rate 95 H 84 96 H Pulse Rate [ Anterior Bilateral Throughout] Pulse Rate [ From Monitor] Respiratory Rate Respiratory Rate [Anterior Bilateral Throughout] Blood Pressure 106/61 119/75 119/75 O2 Sat by Pulse 96 97 96 Oximetry 10/14/16 10/14/16 10/14/16 04:50 05:00 05:10 Temperature Pulse Rate 92 H 98 H 89 Pulse Rate [ Anterior Bilateral Throughout] Pulse Rate [ From Monitor] Respiratory Rate Respiratory Rate [Anterior Bilateral Throughout] Blood Pressure 119/75 120/58 120/58 O2 Sat by Pulse 98 97 Oximetry 10/14/16 10/14/16 10/14/16 05:20 05:30 05:40 Temperature Pulse Rate 91 H 93 H 87 Pulse Rate [ Anterior Bilateral Throughout] Pulse Rate [ From Monitor] Respiratory Rate Respiratory Rate [Anterior Bilateral Throughout] Blood Pressure 120/58 111/67 111/67 O2 Sat by Pulse 97 97 96 Oximetry 10/14/16 10/14/16 10/14/16 05:50 06:00 06:02 Temperature Pulse Rate 90 91 H Pulse Rate [ Anterior Bilateral Throughout] Pulse Rate [ From Monitor] Respiratory 32 H Rate Respiratory Rate [Anterior Bilateral Throughout] Blood Pressure 111/67 115/65 O2 Sat by Pulse 97 Oximetry 10/14/16 10/14/16 10/14/16 06:10 06:20 06:30 Temperature Pulse Rate 88 91 H 91 H Pulse Rate [ Anterior Bilateral Throughout] Pulse Rate [ From Monitor] Respiratory Rate Respiratory Rate [Anterior Bilateral Throughout] Blood Pressure 115/65 115/65 101/66 O2 Sat by Pulse 97 98 Oximetry 10/14/16 10/14/16 10/14/16 06:40 06:50 07:00 Temperature Pulse Rate 92 H 94 H 94 H Pulse Rate [ Anterior Bilateral Throughout] Pulse Rate [ From Monitor] Respiratory Rate Respiratory Rate [Anterior Bilateral Throughout] Blood Pressure 115/65 115/65 107/56 O2 Sat by Pulse 97 97 98 Oximetry 10/14/16 10/14/16 10/14/16 07:10 07:20 07:30 Temperature Pulse Rate 95 H 97 H 91 H Pulse Rate [ Anterior Bilateral Throughout] Pulse Rate [ From Monitor] Respiratory Rate Respiratory Rate [Anterior Bilateral Throughout] Blood Pressure 101/66 101/66 113/62 O2 Sat by Pulse 97 97 Oximetry 10/14/16 10/14/16 10/14/16 07:40 07:41 07:42 Temperature 99.8 F H Pulse Rate 86 Pulse Rate [ Anterior Bilateral Throughout] Pulse Rate [ 87 From Monitor] Respiratory 37 H Rate Respiratory Rate [Anterior Bilateral Throughout] Blood Pressure 113/62 O2 Sat by Pulse 96 98 Oximetry 10/14/16 10/14/16 10/14/16 07:50 08:00 08:10 Temperature 99.8 F H Pulse Rate 90 96 H 94 H Pulse Rate [ 98 H Anterior Bilateral Throughout] Pulse Rate [ From Monitor] Respiratory Rate Respiratory 26 H Rate [Anterior Bilateral Throughout] Blood Pressure 113/62 108/60 108/60 O2 Sat by Pulse Oximetry 10/14/16 10/14/16 10/14/16 08:20 08:27 08:30 Temperature Pulse Rate 97 H 95 H Pulse Rate [ 98 H Anterior Bilateral Throughout] Pulse Rate [ From Monitor] Respiratory Rate Respiratory 30 H Rate [Anterior Bilateral Throughout] Blood Pressure 108/60 121/62 O2 Sat by Pulse Oximetry 10/14/16 10/14/16 10/14/16 08:40 08:50 08:59 Temperature Pulse Rate 95 H 97 H 97 H Pulse Rate [ Anterior Bilateral Throughout] Pulse Rate [ From Monitor] Respiratory Rate Respiratory Rate [Anterior Bilateral Throughout] Blood Pressure 121/62 121/62 O2 Sat by Pulse Oximetry 10/14/16 10/14/16 10/14/16 09:00 09:10 09:20 Temperature Pulse Rate 97 H 99 H 101 H Pulse Rate [ Anterior Bilateral Throughout] Pulse Rate [ From Monitor] Respiratory Rate Respiratory Rate [Anterior Bilateral Throughout] Blood Pressure 104/58 104/58 104/58 O2 Sat by Pulse 100 Oximetry 10/14/16 10/14/16 10/14/16 09:30 09:40 09:42 Temperature Pulse Rate 99 H 100 H Pulse Rate [ Anterior Bilateral Throughout] Pulse Rate [ From Monitor] Respiratory 30 H Rate Respiratory Rate [Anterior Bilateral Throughout] Blood Pressure 105/49 105/49 O2 Sat by Pulse 100 98 Oximetry 10/14/16 10/14/16 10/14/16 09:50 10:00 10:10 Temperature Pulse Rate 102 H 101 H 98 H Pulse Rate [ Anterior Bilateral Throughout] Pulse Rate [ From Monitor] Respiratory Rate Respiratory Rate [Anterior Bilateral Throughout] Blood Pressure 105/49 89/46 O2 Sat by Pulse 100 100 100 Oximetry 10/14/16 10/14/16 10/14/16 10:20 10:30 10:40 Temperature Pulse Rate 95 H 96 H 92 H Pulse Rate [ Anterior Bilateral Throughout] Pulse Rate [ From Monitor] Respiratory Rate Respiratory Rate [Anterior Bilateral Throughout] Blood Pressure 89/46 91/49 91/49 O2 Sat by Pulse 100 100 95 Oximetry 10/14/16 10/14/16 10/14/16 10:50 11:00 11:10 Temperature Pulse Rate 92 H 97 H 97 H Pulse Rate [ Anterior Bilateral Throughout] Pulse Rate [ From Monitor] Respiratory Rate Respiratory Rate [Anterior Bilateral Throughout] Blood Pressure 91/49 92/53 92/53 O2 Sat by Pulse 96 97 97 Oximetry 10/14/16 10/14/16 10/14/16 11:20 11:30 11:40 Temperature Pulse Rate 96 H 94 H 95 H Pulse Rate [ Anterior Bilateral Throughout] Pulse Rate [ From Monitor] Respiratory Rate Respiratory Rate [Anterior Bilateral Throughout] Blood Pressure 92/53 89/53 89/53 O2 Sat by Pulse 97 97 Oximetry 10/14/16 10/14/16 11:50 12:00 Temperature 99.6 F Pulse Rate 96 H 96 H Pulse Rate [ Anterior Bilateral Throughout] Pulse Rate [ 93 H From Monitor] Respiratory 30 H Rate Respiratory Rate [Anterior Bilateral Throughout] Blood Pressure 89/53 95/55 O2 Sat by Pulse 96 97 Oximetry - General Appearance General appearance: sedated on ventilator, intubated EENT: ATNC, PERRL, mucous membranes moist Neck: no JVD, no carotid bruit Respiratory: Present: Rales, Ronchi Cardiology: normal heart rate, S1S2 Gastrointestinal: normoactive bowel sounds, no absent bowel sounds, no tenderness Integumentary: no rash, warm and dry Neurologic: other (sedated and intubated) Musculoskeletal: other (trace pitting edema in BLE) Psychiatric: other (sedated and intubated) - Lab 10/14/16 05:30 10/14/16 05:30 Most recent lab results Calcium 8.8 mg/dL (8.4-10.2) 10/14/16 05:30 Phosphorus 1.90 mg/dL (2.5-4.5) L D 10/14/16 05:30 Magnesium 2.90 mg/dL (1.7-2.3) H 10/14/16 05:30 Urine Creatinine 63.2 mg/dL (0.1-20.0) H 10/03/16 15:54 Urine Sodium 20 mEq/L 10/03/16 15:54 Urine Total Protein 67 mg/dL (5-11.8) H 10/03/16 15:54
[2016-10-14] MEDS: PHOS-NAK FEEDTUBE SCH ×2 (13:51→22:25)
[2016-10-14 14:43] LABS: ISTAT Base Excess 12; ISTAT HCO3 36.8; ISTAT PCO2 57.4 (35-45); ISTAT PH 7.415 (7.35-7.45); ISTAT PO2 177 (80-105); ISTAT SO2 100; ISTAT TCO2 39
--- NOTE | 2016-10-14 17:10 | Progress Note ---
Assessment and Plan - Patient Problems (1) Acute respiratory failure with hypoxia Current Visit: Yes Status: Acute Plan to address problem: 1. Continue diuresis and monitoring off antibiotics. (2) Leukemoid reaction Current Visit: Yes Status: Acute Plan to address problem: 1. Slow resolution without new focality. 2. Will discontinue Flagyl now that broad antimicrobials have been discontinued. Continue to follow clinically. Subjective Date of service: 10/14/16 Principal diagnosis: Acute Hypoxemic Respiratory Failure; ARDS Interval history: Patient remains in ICU with slow clinical improvements. Current FiO2 40%. Objective - Constitutional Vitals: Vital Signs Temp Pulse Resp BP Pulse Ox 99.0 F 86 30 H 116/70 92 10/14/16 16:00 10/14/16 16:50 10/14/16 15:58 10/14/16 16:50 10/14/16 16:50 Temperature -Last 24 Hours Temperature 99.0 F Temperature 99.6 F Temperature 99.6 F Temperature 99.8 F Temperature 99.8 F Temperature 992 F Temperature 99.5 F Temperature 98.4 F General appearance: Present: no acute distress, obese - EENT Eyes: no scleral icterus, exopthalmos ENT: other (ET tube in place) - Respiratory Respiratory: bilateral: CTA, negative: rales, rhonchi - Cardiovascular Rhythm: regular Heart Sounds: Present: S1 & S2 Extremities: No edema, normal color Extremity abnormal: other (left hip well-healing with no signs of infection) - Gastrointestinal General gastrointestinal: Present: soft, non-distended, normal bowel sounds - Integumentary Integumentary: no rash - Additional findings Additional findings: PICC left arm without surrounding inflammation - Labs CBC & Chem 7: 10/14/16 05:30 10/14/16 05:30 Labs: Abnormal lab results 10/09/16 10/13/16 10/13/16 Range/Units 10:00 17:26 20:40 WBC (4.5-11.0) K/mm3 RBC (3.65-5.03) M/mm3 Hgb (10.1-14.3) gm/dl RDW (13.2-15.2) % Seg Neuts % (Manual) (40.0-70.0) % Lymphocytes % (Manual) (13.4-35.0) % Nucleated RBC % (0.0-0.9) % Seg Neutrophils # Man (1.8-7.7) K/mm3 Monocytes # (Manual) (0.0-0.8) K/mm3 POC ABG pH (7.35-7.45) POC ABG pCO2 (35-45) POC ABG pO2 (80-105) Sodium 148 H (137-145) mmol/L Carbon Dioxide (22-30) mmol/L BUN (7-17) mg/dL Creatinine (0.7-1.2) mg/dL Glucose (65-100) mg/dL POC Glucose 162 H (70-105) Phosphorus (2.5-4.5) mg/dL Magnesium (1.7-2.3) mg/dL Crossmatch See Detail 10/13/16 10/13/16 10/14/16 Range/Units 20:57 23:33 00:48 WBC (4.5-11.0) K/mm3 RBC (3.65-5.03) M/mm3 Hgb (10.1-14.3) gm/dl RDW (13.2-15.2) % Seg Neuts % (Manual) (40.0-70.0) % Lymphocytes % (Manual) (13.4-35.0) % Nucleated RBC % (0.0-0.9) % Seg Neutrophils # Man (1.8-7.7) K/mm3 Monocytes # (Manual) (0.0-0.8) K/mm3 POC ABG pH 7.201 L 7.455 H (7.35-7.45) POC ABG pCO2 111.2 H 54.2 H (35-45) POC ABG pO2 45 L 57 L (80-105) Sodium (137-145) mmol/L Carbon Dioxide (22-30) mmol/L BUN (7-17) mg/dL Creatinine (0.7-1.2) mg/dL Glucose (65-100) mg/dL POC Glucose 147 H (70-105) Phosphorus (2.5-4.5) mg/dL Magnesium (1.7-2.3) mg/dL Crossmatch 10/14/16 10/14/16 10/14/16 Range/Units 04:12 05:30 05:30 WBC 23.1 H (4.5-11.0) K/mm3 RBC 3.49 L (3.65-5.03) M/mm3 Hgb 9.9 L (10.1-14.3) gm/dl RDW 16.9 H (13.2-15.2) % Seg Neuts % (Manual) 82.0 H (40.0-70.0) % Lymphocytes % (Manual) 9.0 L (13.4-35.0) % Nucleated RBC % 2.0 H (0.0-0.9) % Seg Neutrophils # Man 18.9 H (1.8-7.7) K/mm3 Monocytes # (Manual) 1.4 H (0.0-0.8) K/mm3 POC ABG pH 7.497 H (7.35-7.45) POC ABG pCO2 49.4 H (35-45) POC ABG pO2 60 L (80-105) Sodium 146 H (137-145) mmol/L Carbon Dioxide 35 H (22-30) mmol/L BUN 56 H (7-17) mg/dL Creatinine 1.3 H (0.7-1.2) mg/dL Glucose 155 H (65-100) mg/dL POC Glucose (70-105) Phosphorus 1.90 L D (2.5-4.5) mg/dL Magnesium (1.7-2.3) mg/dL Crossmatch 10/14/16 10/14/16 10/14/16 Range/Units 05:30 05:53 12:05 WBC (4.5-11.0) K/mm3 RBC (3.65-5.03) M/mm3 Hgb (10.1-14.3) gm/dl RDW (13.2-15.2) % Seg Neuts % (Manual) (40.0-70.0) % Lymphocytes % (Manual) (13.4-35.0) % Nucleated RBC % (0.0-0.9) % Seg Neutrophils # Man (1.8-7.7) K/mm3 Monocytes # (Manual) (0.0-0.8) K/mm3 POC ABG pH (7.35-7.45) POC ABG pCO2 (35-45) POC ABG pO2 (80-105) Sodium (137-145) mmol/L Carbon Dioxide (22-30) mmol/L BUN (7-17) mg/dL Creatinine (0.7-1.2) mg/dL Glucose (65-100) mg/dL POC Glucose 156 H 145 H (70-105) Phosphorus (2.5-4.5) mg/dL Magnesium 2.90 H (1.7-2.3) mg/dL Crossmatch 10/14/16 Range/Units 14:34 WBC (4.5-11.0) K/mm3 RBC (3.65-5.03) M/mm3 Hgb (10.1-14.3) gm/dl RDW (13.2-15.2) % Seg Neuts % (Manual) (40.0-70.0) % Lymphocytes % (Manual) (13.4-35.0) % Nucleated RBC % (0.0-0.9) % Seg Neutrophils # Man (1.8-7.7) K/mm3 Monocytes # (Manual) (0.0-0.8) K/mm3 POC ABG pH (7.35-7.45) POC ABG pCO2 57.4 H (35-45) POC ABG pO2 177 H (80-105) Sodium (137-145) mmol/L Carbon Dioxide (22-30) mmol/L BUN (7-17) mg/dL Creatinine (0.7-1.2) mg/dL Glucose (65-100) mg/dL POC Glucose (70-105) Phosphorus (2.5-4.5) mg/dL Magnesium (1.7-2.3) mg/dL Crossmatch Microbiology 10/12/16 13:28 Tracheal Aspirate Sputum Culture - Preliminary 10/04/16 04:05 Tracheal Aspirate Herpes Simplex Virus Culture - Final 10/03/16 09:20 Peripheral/Venous Blood Culture - Final NO GROWTH AFTER 5 DAYS 10/03/16 09:30 Picc Blood Culture - Final NO GROWTH AFTER 5 DAYS 10/03/16 09:06 Urine,Catheterized - Indwelling Catheter Urine Culture - Final 09/27/16 22:47 Peripheral/Venous Blood Culture - Final NO GROWTH AFTER 5 DAYS 09/27/16 22:47 Peripheral/Venous Blood Culture - Final NO GROWTH AFTER 5 DAYS 09/27/16 15:06 Peripheral/Venous Blood Culture - Final NO GROWTH AFTER 5 DAYS 09/27/16 14:40 Peripheral/Venous Blood Culture - Final NO GROWTH AFTER 5 DAYS 09/30/16 Unknown Tracheal Aspirate Sputum Culture - Final Active Medications Acetaminophen (Tylenol) 650 mg PO Q4H PRN PRN Reason: Pain MILD(1-3)/Fever >100.5/PALACIOS Last Admin: 10/07/16 18:13 Dose: 650 mg Albuterol/Ipratropium (Duoneb 0.5 Mg-3 Mg/3 Ml Soln) 1 ampul IH Q6HRT [facility] Last Admin: 10/14/16 14:22 Dose: 1 ampul Lipase/Protease/Amylase (Pancreaze Dr 10,500 Unit) 1 each FEEDTUBE PRN PRN PRN Reason: For Clogged Feeding Tube Arformoterol Tartrate (Brovana Nebu) 15 mcg IH Q12HRT [facility] Last Admin: 10/14/16 08:27 Dose: Not Given Aspirin (Aspirin) 325 mg PO QDAY [facility] Last Admin: 10/14/16 09:13 Dose: 325 mg Budesonide (Pulmicort) 0.5 mg IH Q12HRT [facility] Last Admin: 10/14/16 08:27 Dose: 0.5 mg Diphenhydramine HCl (Benadryl) 12.5 mg IV Q4H PRN PRN Reason: Itching Last Admin: 09/30/16 07:02 Dose: 12.5 mg Enoxaparin Sodium (Lovenox) 40 mg SUB-Q QDAY [facility] Last Admin: 10/14/16 09:13 Dose: 40 mg Famotidine (Pepcid) 20 mg PO BID [facility] Last Admin: 10/14/16 09:14 Dose: 20 mg Folic Acid (Folvite) 1 mg PO QDAY [facility] Last Admin: 10/14/16 09:15 Dose: 1 mg Furosemide (Lasix) 20 mg IV DAILY [facility] Last Admin: 10/14/16 09:14 Dose: 20 mg Hydrophilic Ointment (Vaseline Lip Therapy) 1 applic TP Q2HR PRN PRN Reason: Dry Lips Fentanyl Citrate (Fentanyl Drip Premix) 2,000 mcg in 100 mls @ 4.649 mls/hr IV TITR [facility]; 1 MCG/KG/HR PRN Reason: Protocol Last Admin: 10/14/16 16:22 Dose: 2 mcg/kg/hr, 9.299 mls/hr Midazolam HCl 100 mg/ Sodium (Chloride) 100 mls @ 2 mls/hr IV TITR [facility]; 2 MG/HR PRN Reason: Protocol Last Admin: 10/04/16 12:54 Dose: 2 mg/hr, 2 mls/hr Metronidazole (Flagyl 500 Mg/100 Ml) 500 mg in 100 mls @ 100 mls/hr IV Q8HR [facility] Last Admin: 10/14/16 13:52 Dose: 100 mls/hr Dextrose (D5w) 1,000 mls @ 50 mls/hr IV DIRECT [facility] Last Admin: 10/14/16 08:09 Dose: 50 mls/hr Propofol (Diprivan 10 Mg/Ml) 1,000 mg in 100 mls @ 3.045 mls/hr IV TITR [facility]; 5 MCG/KG/MIN PRN Reason: Protocol Last Admin: 10/14/16 15:39 Dose: 10 mcg/kg/min, 6.09 mls/hr Insulin Human Regular (Novolin R) 0 units SUB-Q Q6HR [facility] PRN Reason: Protocol Last Admin: 10/14/16 13:47 Dose: Not Given Multi-Ingred Cream/Lotion/Oil/Oint (Artificial Tears Ophth Oint) 1 applic OU Q4HR PRN PRN Reason: Dry Eye(s) Multivitamins (Theragran Tab) 1 each PO QDAY [facility] Last Admin: 10/14/16 09:14 Dose: 1 each Ondansetron HCl (Zofran) 4 mg IV Q8H PRN PRN Reason: Nausea And Vomiting Last Admin: 09/29/16 23:07 Dose: 4 mg Potassium Phos/Sodium Phos (Phos-Nak) 1 each FEEDTUBE Q8HR [facility] Last Admin: 10/14/16 13:51 Dose: 1 each Promethazine HCl (Phenergan) 25 mg TN Q6H PRN PRN Reason: Nausea And Vomiting Last Admin: 09/25/16 22:05 Dose: 25 mg Senna (Senokot) 17.2 mg PO DAILY [facility] Last Admin: 10/14/16 09:14 Dose: 17.2 mg Simple Syrup (Simple Syrup) 15 ml FEEDTUBE PRN PRN PRN Reason: Hypoglycemia Simple Syrup (Simple Syrup) 30 ml FEEDTUBE PRN PRN PRN Reason: Hypoglycemia Sodium Bicarbonate (Sodium Bicarbonate) 325 mg FEEDTUBE PRN PRN PRN Reason: For Clogged Feeding Tube Sodium Chloride (Sodium Chloride Flush Syringe 10 Ml) 10 ml IV PRN PRN PRN Reason: LINE FLUSH Tramadol HCl (Ultram) 50 mg PO Q4H PRN PRN Reason: Pain, Moderate (4-6) Last Admin: 10/06/16 21:54 Dose: 50 mg Valacyclovir HCl (Valtrex) 500 mg PO DAILY [facility] Last Admin: 10/14/16 09:14 Dose: 500 mg Zolpidem Tartrate (Ambien) 5 mg PO QHS PRN PRN Reason: Sleep - Imaging and cardiology Chest x-ray: report reviewed (scattered infiltrates)
[2016-10-14 22:10] LABS: ISTAT Base Excess 13; ISTAT HCO3 36.6; ISTAT PCO2 53.6 (35-45); ISTAT PH 7.443 (7.35-7.45); ISTAT PO2 60 (80-105); ISTAT SO2 91; ISTAT TCO2 38
--- NOTE | 2016-10-14 23:31 | Consultation ---
History of Present Illness - Reason for Consult Consult date: 10/14/16 - History of Present Illness Patient seen/examined, labs reviewed, case d/w DR Randall. She responds stronger to name calling.Labs looks better today. Past History Past Medical History: anemia (sickle cell anemia) Social history: no significant social history Family history: no significant family history Medications and Allergies Allergies Allergy/AdvReac Type Severity Reaction Status Date / Time No Known Allergies Allergy Unverified 10/13/13 13:21 Home Medications Medication Instructions Recorded Confirmed Last Taken Type Folic Acid [Folvite] 1 mg PO QDAY 10/13/13 09/18/16 09/18/16 History oxyCODONE /ACETAMINOPHEN [Percocet 1 tab PO Q6HR PRN #10 tablet 10/13/1309/18/16 Rx 5/325 mg] Promethazine [Phenergan] 25 mg PO Q6H PRN 08/16/14 09/18/16 09/18/16 History valACYclovir [Valtrex] 500 mg PO DAILY 08/16/14 09/18/16 09/18/16 History Active Meds: Active Medications Acetaminophen (Tylenol) 650 mg PO Q4H PRN PRN Reason: Pain MILD(1-3)/Fever >100.5/PALACIOS Last Admin: 10/07/16 18:13 Dose: 650 mg Albuterol/Ipratropium (Duoneb 0.5 Mg-3 Mg/3 Ml Soln) 1 ampul IH Q6HRT [facility] Last Admin: 10/14/16 21:59 Dose: 1 ampul Lipase/Protease/Amylase (Fritz Mayers 10,500 Unit) 1 each FEEDTUBE PRN PRN PRN Reason: For Clogged Feeding Tube Arformoterol Tartrate (Brovana Nebu) 15 mcg IH Q12HRT [facility] Last Admin: 10/14/16 22:03 Dose: Not Given Aspirin (Aspirin) 325 mg PO QDAY [facility] Last Admin: 10/14/16 09:13 Dose: 325 mg Budesonide (Pulmicort) 0.5 mg IH Q12HRT [facility] Last Admin: 10/14/16 22:00 Dose: 0.5 mg Diphenhydramine HCl (Benadryl) 12.5 mg IV Q4H PRN PRN Reason: Itching Last Admin: 09/30/16 07:02 Dose: 12.5 mg Enoxaparin Sodium (Lovenox) 40 mg SUB-Q QDAY [facility] Last Admin: 10/14/16 09:13 Dose: 40 mg Famotidine (Pepcid) 20 mg PO BID [facility] Last Admin: 10/14/16 22:25 Dose: 20 mg Folic Acid (Folvite) 1 mg PO QDAY [facility] Last Admin: 10/14/16 09:15 Dose: 1 mg Furosemide (Lasix) 20 mg IV DAILY [facility] Last Admin: 10/14/16 09:14 Dose: 20 mg Hydrophilic Ointment (Vaseline Lip Therapy) 1 applic TP Q2HR PRN PRN Reason: Dry Lips Fentanyl Citrate (Fentanyl Drip Premix) 2,000 mcg in 100 mls @ 4.649 mls/hr IV TITR [facility]; 1 MCG/KG/HR PRN Reason: Protocol Last Admin: 10/14/16 16:22 Dose: 2 mcg/kg/hr, 9.299 mls/hr Midazolam HCl 100 mg/ Sodium (Chloride) 100 mls @ 2 mls/hr IV TITR [facility]; 2 MG/HR PRN Reason: Protocol Last Admin: 10/04/16 12:54 Dose: 2 mg/hr, 2 mls/hr Dextrose (D5w) 1,000 mls @ 50 mls/hr IV DIRECT [facility] Last Admin: 10/14/16 08:09 Dose: 50 mls/hr Propofol (Diprivan 10 Mg/Ml) 1,000 mg in 100 mls @ 3.045 mls/hr IV TITR [facility]; 5 MCG/KG/MIN PRN Reason: Protocol Last Admin: 10/14/16 15:39 Dose: 10 mcg/kg/min, 6.09 mls/hr Insulin Human Regular (Novolin R) 0 units SUB-Q Q6HR [facility] PRN Reason: Protocol Last Admin: 10/14/16 17:39 Dose: 1 units Multi-Ingred Cream/Lotion/Oil/Oint (Artificial Tears Ophth Oint) 1 applic OU Q4HR PRN PRN Reason: Dry Eye(s) Multivitamins (Theragran Tab) 1 each PO QDAY [facility] Last Admin: 10/14/16 09:14 Dose: 1 each Ondansetron HCl (Zofran) 4 mg IV Q8H PRN PRN Reason: Nausea And Vomiting Last Admin: 09/29/16 23:07 Dose: 4 mg Potassium Phos/Sodium Phos (Phos-Nak) 1 each FEEDTUBE Q8HR [facility] Last Admin: 10/14/16 22:25 Dose: 1 each Promethazine HCl (Phenergan) 25 mg OR Q6H PRN PRN Reason: Nausea And Vomiting Last Admin: 09/25/16 22:05 Dose: 25 mg Senna (Senokot) 17.2 mg PO DAILY [facility] Last Admin: 10/14/16 09:14 Dose: 17.2 mg Simple Syrup (Simple Syrup) 15 ml FEEDTUBE PRN PRN PRN Reason: Hypoglycemia Simple Syrup (Simple Syrup) 30 ml FEEDTUBE PRN PRN PRN Reason: Hypoglycemia Sodium Bicarbonate (Sodium Bicarbonate) 325 mg FEEDTUBE PRN PRN PRN Reason: For Clogged Feeding Tube Sodium Chloride (Sodium Chloride Flush Syringe 10 Ml) 10 ml IV PRN PRN PRN Reason: LINE FLUSH Tramadol HCl (Ultram) 50 mg PO Q4H PRN PRN Reason: Pain, Moderate (4-6) Last Admin: 10/06/16 21:54 Dose: 50 mg Valacyclovir HCl (Valtrex) 500 mg PO DAILY [facility] Last Admin: 10/14/16 09:14 Dose: 500 mg Zolpidem Tartrate (Ambien) 5 mg PO QHS PRN PRN Reason: Sleep Review of Systems Constitutional: other (on the vent.) Breasts: deferred Respiratory: other (On the vent.) Exam - Constitutional Vitals: Temp Pulse Resp BP Pulse Ox 98.8 F 97 H 30 H 102/46 36 L 10/14/16 20:00 10/14/16 20:35 10/14/16 20:00 10/14/16 20:35 10/14/16 20:35 General appearance: Present: severe distress, well-nourished - EENT Eyes: Present: PERRL ENT: hearing intact, clear oral mucosa - Neck Neck: Present: supple, normal ROM - Respiratory Respiratory: bilateral: other - Cardiovascular Heart Sounds: Present: S1 & S2. Absent: rub, click - Extremities Extremities: pulses symmetrical, No edema Peripheral Pulses: within normal limits - Abdominal General gastrointestinal: Present: soft, non-tender, non-distended, normal bowel sounds Female genitourinary: Present: deferred - Rectal Rectal Exam: deferred - Integumentary Integumentary: Present: clear, warm, dry Results - Labs CBC & Chem 7: 10/14/16 05:30 10/14/16 05:30 Labs: Abnormal lab results 10/09/16 10/13/16 10/14/16 Range/Units 10:00 23:33 00:48 WBC (4.5-11.0) K/mm3 RBC (3.65-5.03) M/mm3 Hgb (10.1-14.3) gm/dl RDW (13.2-15.2) % Seg Neuts % (Manual) (40.0-70.0) % Lymphocytes % (Manual) (13.4-35.0) % Nucleated RBC % (0.0-0.9) % Seg Neutrophils # Man (1.8-7.7) K/mm3 Monocytes # (Manual) (0.0-0.8) K/mm3 POC ABG pH 7.455 H (7.35-7.45) POC ABG pCO2 54.2 H (35-45) POC ABG pO2 57 L (80-105) Sodium (137-145) mmol/L Carbon Dioxide (22-30) mmol/L BUN (7-17) mg/dL Creatinine (0.7-1.2) mg/dL Glucose (65-100) mg/dL POC Glucose 147 H (70-105) Phosphorus (2.5-4.5) mg/dL Magnesium (1.7-2.3) mg/dL Crossmatch See Detail 10/14/16 10/14/16 10/14/16 Range/Units 04:12 05:30 05:30 WBC 23.1 H (4.5-11.0) K/mm3 RBC 3.49 L (3.65-5.03) M/mm3 Hgb 9.9 L (10.1-14.3) gm/dl RDW 16.9 H (13.2-15.2) % Seg Neuts % (Manual) 82.0 H (40.0-70.0) % Lymphocytes % (Manual) 9.0 L (13.4-35.0) % Nucleated RBC % 2.0 H (0.0-0.9) % Seg Neutrophils # Man 18.9 H (1.8-7.7) K/mm3 Monocytes # (Manual) 1.4 H (0.0-0.8) K/mm3 POC ABG pH 7.497 H (7.35-7.45) POC ABG pCO2 49.4 H (35-45) POC ABG pO2 60 L (80-105) Sodium 146 H (137-145) mmol/L Carbon Dioxide 35 H (22-30) mmol/L BUN 56 H (7-17) mg/dL Creatinine 1.3 H (0.7-1.2) mg/dL Glucose 155 H (65-100) mg/dL POC Glucose (70-105) Phosphorus 1.90 L D (2.5-4.5) mg/dL Magnesium (1.7-2.3) mg/dL Crossmatch 10/14/16 10/14/16 10/14/16 Range/Units 05:30 05:53 12:05 WBC (4.5-11.0) K/mm3 RBC (3.65-5.03) M/mm3 Hgb (10.1-14.3) gm/dl RDW (13.2-15.2) % Seg Neuts % (Manual) (40.0-70.0) % Lymphocytes % (Manual) (13.4-35.0) % Nucleated RBC % (0.0-0.9) % Seg Neutrophils # Man (1.8-7.7) K/mm3 Monocytes # (Manual) (0.0-0.8) K/mm3 POC ABG pH (7.35-7.45) POC ABG pCO2 (35-45) POC ABG pO2 (80-105) Sodium (137-145) mmol/L Carbon Dioxide (22-30) mmol/L BUN (7-17) mg/dL Creatinine (0.7-1.2) mg/dL Glucose (65-100) mg/dL POC Glucose 156 H 145 H (70-105) Phosphorus (2.5-4.5) mg/dL Magnesium 2.90 H (1.7-2.3) mg/dL Crossmatch 10/14/16 10/14/16 10/14/16 Range/Units 14:34 17:33 21:57 WBC (4.5-11.0) K/mm3 RBC (3.65-5.03) M/mm3 Hgb (10.1-14.3) gm/dl RDW (13.2-15.2) % Seg Neuts % (Manual) (40.0-70.0) % Lymphocytes % (Manual) (13.4-35.0) % Nucleated RBC % (0.0-0.9) % Seg Neutrophils # Man (1.8-7.7) K/mm3 Monocytes # (Manual) (0.0-0.8) K/mm3 POC ABG pH (7.35-7.45) POC ABG pCO2 57.4 H 53.6 H (35-45) POC ABG pO2 177 H 60 L (80-105) Sodium (137-145) mmol/L Carbon Dioxide (22-30) mmol/L BUN (7-17) mg/dL Creatinine (0.7-1.2) mg/dL Glucose (65-100) mg/dL POC Glucose 172 H (70-105) Phosphorus (2.5-4.5) mg/dL Magnesium (1.7-2.3) mg/dL Crossmatch Assessment and Plan - Patient Problems (1) Sepsis Current Visit: Yes Status: Acute Qualifiers: Sepsis type: sepsis due to unspecified organism Qualified Code(s): A41.9 - Sepsis, unspecified organism Plan to address problem: SEE w/up in the notes. No improvement so far. worsening sepsis. Slight improvement (2) Sleep apnea syndrome Current Visit: Yes Status: Acute Qualifiers: Sleep apnea type: S Plan to address problem: oxygen/BIPAP management. Patient now in full resp failure, and on the vent. (3) UTI (urinary tract infection) Current Visit: Yes Status: Acute Qualifiers: Urinary tract infection type: U Hematuria presence: H Indwelling urinary catheter type: I Encounter type: E Plan to address problem: patient already on abx iv. may need culture sent. culture no growth. (4) Anemia Current Visit: Yes Status: Acute Qualifiers: Anemia type: A Iron deficiency anemia type: I Vitamin B12 deficiency anemia type: V Folate deficiency anemia type: F Bone marrow failure anemia type: B Hemolytic anemia type: H Other causes of anemia: O Plan to address problem: will transfuse if hgb 7.5 or less. no new issues at this time. May transfuse if further drop. (5) Leukocytosis Current Visit: Yes Status: Acute Qualifiers: Leukocytosis type: L Plan to address problem: will order flow, and try leukophoresis. instead, exchange transfusion is done today. improving.
[2016-10-15] MEDS: fentaNYL DRIP Premix 2,000 MCG/100 ML BAG IV SCH ×2 (02:33→21:50)
[2016-10-15] MEDS: DUONEB 0.5 MG-3 MG/3 ML SOLN IH SCH ×4 (02:49→20:15)
[2016-10-15 05:52] LABS: Hematocrit 29.7 % (30.3-42.9); Hemoglobin 9.5 gm/dl (10.1-14.3); Mean Corpuscular HGB Conc 32 % (30-34); Mean Corpuscular Hemoglobin 29 pg (28-32); Mean Corpuscular Volume 89 fl (79-97); Platelet Count 218 K/mm3 (140-440); Red Blood Count 3.33 M/mm3 (3.65-5.03); Red Cell Distribution Width 16.8 % (13.2-15.2)
[2016-10-15 05:59] LABS: White Blood Count 23.9 K/mm3 (4.5-11.0)
[2016-10-15] MEDS: DIPRIVAN 10 MG/ML 1,000 MG/100 ML BOTTLE IV SCH ×2 (06:00→23:41)
[2016-10-15] MEDS: PHOS-NAK FEEDTUBE SCH ×3 (06:02→22:29)
[2016-10-15 06:12] LABS: Anion Gap 17 mmol/L; BUN/Creatinine Ratio 55.45; Blood Urea Nitrogen 61 mg/dL (7-17); Calcium 8.2 mg/dL (8.4-10.2); Carbon Dioxide 33 mmol/L (22-30); Glucose 127 mg/dL (65-100); Potassium 3.5 mmol/L (3.6-5.0); Sodium 144 mmol/L (137-145)
[2016-10-15 06:28] LABS: ISTAT Base Excess 11; ISTAT HCO3 36.3; ISTAT PCO2 65.2 (35-45); ISTAT PH 7.354 (7.35-7.45); ISTAT PO2 82 (80-105); ISTAT SO2 95; ISTAT TCO2 38
[2016-10-15 07:28] LABS: Basophils % (Manual) 0 % (0.0-1.8); Blastocytes % (Manual) 0 %
[2016-10-15 07:29] LABS: Anisocytosis 1+; Diff Status Complete; Hypochromasia 1+; Macrocytosis Few; Polychromasia Few; Smudge Cells Few
[2016-10-15] MEDS: BROVANA NEBU IH SCH ×2 (08:06→20:15)
[2016-10-15] MEDS: PULMICORT IH SCH ×2 (08:06→20:15)
--- NOTE | 2016-10-15 08:43 | XRay Report ---
AP chest x-ray. History: Followup respiratory failure. Findings: Since yesterday's study, there has been no significant interval change in the diffuse bilateral pulmonary infiltrates. The various life support tubes are unchanged in position. There are no new findings.
[2016-10-15] MEDS ORDERED: POTASSIUM CHLORIDE FEEDTUBE ONE ×2 (09:00→12:00)
[2016-10-15] MEDS: D5W 1,000 ML IV SCH (09:00)
[2016-10-15 09:35] LABS: CYTOMETRY FIRST MARKER SCANNED INTO MED REC; FLOW CYTOMETRY >16 SCANNED INTO MED REC
--- NOTE | 2016-10-15 10:33 | Progress Note ---
Assessment and Plan - Patient Problems (1) Acute respiratory failure with hypoxia Current Visit: Yes Status: Acute Plan to address problem: - changed back to AC mode - continue lung protective strategies (reduced TV to 400mls) - allow permissive hypercapnia - continue bronchodilators and pulmonary toilet - continue aspiration precautions / VAP bundles - continue to wean oxygen for sats > 90-92% at this point - prn ABG's - keep well sedated at this point with daily sedation vacations - will stop diuretics - s/p exchange blood transfusion - bronchoscopy consistent with Diffuse alveolar hemorhage - begin high dose steroids - cover for MRSA with zyvox re: high SHEILA on vancomycin sensitivities (Discussed with ID) (2) ARDS (adult respiratory distress syndrome) Current Visit: Yes Status: Acute Plan to address problem: - 2D ECHO reports normal EF without impaired relaxation - non cardiogenic pulmonary edema - etiology unclear - treating empirically as HCAP - as above otherwise - will get serologies for capilaritis (3) Obesity Current Visit: Yes Status: Acute Qualifiers: Obesity type: O Obesity severity: O Plan to address problem: - weight loss counselled earlier - outpatient sleep clinic evaluation at discharge (4) Sepsis syndrome Current Visit: Yes Status: Acute Plan to address problem: - continue anti-infectives per ID recs - trend CRP / lactate prn (5) Anemia Current Visit: Yes Status: Acute Qualifiers: Anemia type: A Iron deficiency anemia type: I Vitamin B12 deficiency anemia type: V Folate deficiency anemia type: F Bone marrow failure anemia type: B Hemolytic anemia type: H Other causes of anemia: O Plan to address problem: - multifactorial - suspect ABLA component - h/o sickle cell - prn PRBC transfusions - hematology following - s/p exchange blood transfusion (6) CARLYN (acute kidney injury) Current Visit: Yes Status: Acute Plan to address problem: - non oliguric - per nephrology recommendations - will stop diuretics today (7) Discharge planning issues Current Visit: Yes Status: Acute Plan to address problem: - hopefully continues to improve and can transfer to LTAC once Peep </= 10 and FiO2 < 60% .....she remains critically ill on life sustaining interventions including MVS and remains at risk for further deterioration including 38' CCT Subjective Date of service: 10/15/16 Principal diagnosis: Acute Hypoxemic Respiratory Failure; ARDS Interval history: Seen and examined at bedside; 24 hour events reviewed; nursing and respiratory care staff consulted; no adverse overnight events reported to me; remains on MVS ; switched to AC but FiO2 at 60% and Peep of 16; just s/p bronchoscopy with BAL Objective Vital Signs - 12hr 10/14/16 10/14/16 10/14/16 22:40 22:50 23:00 Temperature Pulse Rate 91 H 94 H 103 H Pulse Rate [ Anterior Bilateral Throughout] Pulse Rate [ From Monitor] Respiratory Rate Respiratory Rate [Anterior Bilateral Throughout] Blood Pressure 102/42 102/42 124/57 O2 Sat by Pulse 94 90 100 Oximetry 10/14/16 10/14/16 10/14/16 23:10 23:20 23:30 Temperature Pulse Rate 106 H 102 H 102 H Pulse Rate [ Anterior Bilateral Throughout] Pulse Rate [ From Monitor] Respiratory Rate Respiratory Rate [Anterior Bilateral Throughout] Blood Pressure 124/57 124/57 107/63 O2 Sat by Pulse 100 100 Oximetry 10/14/16 10/14/16 10/15/16 23:40 23:50 00:00 Temperature 99.1 F Pulse Rate 99 H 99 H 98 H Pulse Rate [ Anterior Bilateral Throughout] Pulse Rate [ From Monitor] Respiratory 26 H Rate Respiratory Rate [Anterior Bilateral Throughout] Blood Pressure 107/63 107/63 91/50 O2 Sat by Pulse 100 99 95 Oximetry 10/15/16 10/15/16 10/15/16 00:10 00:20 00:30 Temperature Pulse Rate 97 H 97 H 94 H Pulse Rate [ Anterior Bilateral Throughout] Pulse Rate [ From Monitor] Respiratory Rate Respiratory Rate [Anterior Bilateral Throughout] Blood Pressure 91/50 91/50 95/46 O2 Sat by Pulse 100 100 100 Oximetry 10/15/16 10/15/16 10/15/16 00:40 00:50 01:00 Temperature Pulse Rate 92 H 92 H 89 Pulse Rate [ Anterior Bilateral Throughout] Pulse Rate [ From Monitor] Respiratory Rate Respiratory Rate [Anterior Bilateral Throughout] Blood Pressure 95/46 95/46 110/59 O2 Sat by Pulse 100 100 95 Oximetry 10/15/16 10/15/16 10/15/16 01:10 01:20 01:30 Temperature Pulse Rate 91 H 95 H 95 H Pulse Rate [ Anterior Bilateral Throughout] Pulse Rate [ From Monitor] Respiratory Rate Respiratory Rate [Anterior Bilateral Throughout] Blood Pressure 110/59 110/59 114/64 O2 Sat by Pulse 99 99 97 Oximetry 10/15/16 10/15/16 10/15/16 01:40 01:50 02:00 Temperature Pulse Rate 96 H 95 H 93 H Pulse Rate [ Anterior Bilateral Throughout] Pulse Rate [ From Monitor] Respiratory Rate Respiratory Rate [Anterior Bilateral Throughout] Blood Pressure 114/64 114/64 121/63 O2 Sat by Pulse 99 99 Oximetry 10/15/16 10/15/16 10/15/16 02:10 02:20 02:30 Temperature Pulse Rate 94 H 95 H 97 H Pulse Rate [ Anterior Bilateral Throughout] Pulse Rate [ From Monitor] Respiratory Rate Respiratory Rate [Anterior Bilateral Throughout] Blood Pressure 121/63 121/63 112/57 O2 Sat by Pulse 93 94 Oximetry 10/15/16 10/15/16 10/15/16 02:34 02:40 02:44 Temperature Pulse Rate 96 H Pulse Rate [ 96 H 92 H Anterior Bilateral Throughout] Pulse Rate [ From Monitor] Respiratory Rate Respiratory 25 H 28 H Rate [Anterior Bilateral Throughout] Blood Pressure 112/57 O2 Sat by Pulse 94 Oximetry 10/15/16 10/15/16 10/15/16 02:50 03:00 03:10 Temperature Pulse Rate 98 H 94 H 96 H Pulse Rate [ Anterior Bilateral Throughout] Pulse Rate [ From Monitor] Respiratory Rate Respiratory Rate [Anterior Bilateral Throughout] Blood Pressure 112/57 117/57 117/57 O2 Sat by Pulse 97 96 Oximetry 10/15/16 10/15/16 10/15/16 03:20 03:30 03:40 Temperature Pulse Rate 95 H 97 H 95 H Pulse Rate [ Anterior Bilateral Throughout] Pulse Rate [ From Monitor] Respiratory Rate Respiratory Rate [Anterior Bilateral Throughout] Blood Pressure 117/57 101/56 101/56 O2 Sat by Pulse 96 97 Oximetry 10/15/16 10/15/16 10/15/16 03:50 04:00 04:10 Temperature 99.0 F Pulse Rate 93 H 91 H 92 H Pulse Rate [ Anterior Bilateral Throughout] Pulse Rate [ 95 H From Monitor] Respiratory 26 H Rate Respiratory Rate [Anterior Bilateral Throughout] Blood Pressure 101/56 91/46 91/46 O2 Sat by Pulse 97 98 98 Oximetry 10/15/16 10/15/16 10/15/16 04:20 04:30 04:40 Temperature Pulse Rate 89 93 H 86 Pulse Rate [ Anterior Bilateral Throughout] Pulse Rate [ From Monitor] Respiratory 17 Rate Respiratory Rate [Anterior Bilateral Throughout] Blood Pressure 91/46 91/46 91/46 O2 Sat by Pulse 97 99 91 Oximetry 10/15/16 10/15/16 10/15/16 04:50 05:00 05:10 Temperature Pulse Rate 90 93 H 95 H Pulse Rate [ Anterior Bilateral Throughout] Pulse Rate [ From Monitor] Respiratory 14 18 20 Rate Respiratory Rate [Anterior Bilateral Throughout] Blood Pressure 91/46 91/46 91/46 O2 Sat by Pulse 96 96 96 Oximetry 10/15/16 10/15/16 10/15/16 05:20 05:30 05:40 Temperature Pulse Rate 97 H 96 H 97 H Pulse Rate [ Anterior Bilateral Throughout] Pulse Rate [ From Monitor] Respiratory 22 14 17 Rate Respiratory Rate [Anterior Bilateral Throughout] Blood Pressure 91/46 91/46 91/46 O2 Sat by Pulse 96 98 97 Oximetry 10/15/16 10/15/16 10/15/16 05:50 06:00 06:10 Temperature Pulse Rate 96 H 93 H 95 H Pulse Rate [ Anterior Bilateral Throughout] Pulse Rate [ From Monitor] Respiratory 23 20 16 Rate Respiratory Rate [Anterior Bilateral Throughout] Blood Pressure 114/69 125/72 125/72 O2 Sat by Pulse 98 98 Oximetry 10/15/16 10/15/16 10/15/16 06:20 06:30 06:40 Temperature Pulse Rate 96 H 95 H 93 H Pulse Rate [ Anterior Bilateral Throughout] Pulse Rate [ From Monitor] Respiratory 16 13 18 Rate Respiratory Rate [Anterior Bilateral Throughout] Blood Pressure 125/72 120/66 120/66 O2 Sat by Pulse 97 97 Oximetry 10/15/16 10/15/16 10/15/16 06:50 07:00 07:10 Temperature Pulse Rate 96 H 92 H 95 H Pulse Rate [ Anterior Bilateral Throughout] Pulse Rate [ From Monitor] Respiratory 20 20 17 Rate Respiratory Rate [Anterior Bilateral Throughout] Blood Pressure 120/66 119/67 120/66 O2 Sat by Pulse 98 98 Oximetry 10/15/16 10/15/16 10/15/16 07:20 07:30 07:40 Temperature Pulse Rate 95 H 96 H 95 H Pulse Rate [ Anterior Bilateral Throughout] Pulse Rate [ From Monitor] Respiratory 21 17 16 Rate Respiratory Rate [Anterior Bilateral Throughout] Blood Pressure 120/66 130/70 130/70 O2 Sat by Pulse 97 98 Oximetry 10/15/16 10/15/16 10/15/16 07:50 08:00 08:10 Temperature 99.6 F Pulse Rate 96 H 101 H 99 H Pulse Rate [ 98 H Anterior Bilateral Throughout] Pulse Rate [ From Monitor] Respiratory 16 12 20 Rate Respiratory 31 H Rate [Anterior Bilateral Throughout] Blood Pressure 130/70 110/67 130/70 O2 Sat by Pulse 96 97 99 Oximetry 10/15/16 08:35 Temperature Pulse Rate Pulse Rate [ 94 H Anterior Bilateral Throughout] Pulse Rate [ From Monitor] Respiratory Rate Respiratory 32 H Rate [Anterior Bilateral Throughout] Blood Pressure O2 Sat by Pulse Oximetry Constitutional: no acute distress, other (sedated) Eyes: non-icteric ENT: oropharynx moist Neck: supple, no lymphadenopathy Effort: mildly labored Ascultation: Bilateral: diminished breath sounds, rales Cardiovascular: regular rate and rhythm Gastrointestinal: normoactive bowel sounds, soft, non-tender, non-distended Integumentary: normal Extremities: no cyanosis, no edema, pulses normal, no ischemia or petechiae Neurologic: unable to assess, other (follows commands during sedation holidays) Psychiatric: other (sedated now) CBC and BMP: 10/15/16 05:10 10/15/16 05:10 ABG, PT/INR, D-dimer: ABG POC ABG pH 7.354 (7.35-7.45) 10/15/16 06:17 POC ABG pCO2 65.2 (35-45) H 10/15/16 06:17 POC ABG pO2 82 (80-105) 10/15/16 06:17 POC ABG HCO3 36.3 10/15/16 06:17 POC ABG Total CO2 38 10/15/16 06:17 POC ABG O2 Sat 95 10/15/16 06:17 PT/INR, D-dimer PT 17.6 Sec. (12.2-14.9) H 10/10/16 13:03 INR 1.45 (0.87-1.13) H 10/10/16 13:03 D-Dimer 4758.12 ng/mlDDU (0-234) H 09/27/16 22:47 Abnormal lab findings: Abnormal Labs 09/20/16 09/20/16 09/20/16 10:35 10:35 10:35 WBC 11.7 H RBC Hgb Hct MCV 75 L MCH 24 L RDW 16.6 H Plt Count [place] # Baso # Seg Neutrophils % Seg Neuts % (Manual) Lymphocytes % (Manual) Monocytes % (Manual) Eosinophils % (Manual) Nucleated RBC % Seg Neutrophils # Seg Neutrophils # Man Abs Lymphs (Manual) Lymphocytes # (Manual) Monocytes # (Manual) Eosinophils # (Manual) Percent Retic PT INR 1.14 H D-Dimer POC ABG pH POC ABG pCO2 POC ABG pO2 Sodium Potassium Chloride Carbon Dioxide BUN Creatinine 0.5 L Glucose 115 H POC Glucose Lactic Acid Calcium Phosphorus Magnesium Ferritin Total Bilirubin 2.0 H Lactate Dehydrogenase Total Creatine Kinase CK-MB (CK-2) C-Reactive Protein NT-Pro-B Natriuret Pep Total Protein Albumin Triglycerides Urine WBC (Auto) Urine Creatinine Urine Total Protein Vancomycin Trough Random Vancomycin Absolute CD4 Count Absolute CD19 Count Crossmatch 09/26/16 09/26/16 09/27/16 04:26 04:26 10:26 WBC RBC Hgb 8.9 L Hct 28.0 L MCV MCH RDW Plt Count [place] # Baso # Seg Neutrophils % Seg Neuts % (Manual) Lymphocytes % (Manual) Monocytes % (Manual) Eosinophils % (Manual) Nucleated RBC % Seg Neutrophils # Seg Neutrophils # Man Abs Lymphs (Manual) Lymphocytes # (Manual) Monocytes # (Manual) Eosinophils # (Manual) Percent Retic PT INR D-Dimer POC ABG pH 7.283 L POC ABG pCO2 45.3 H POC ABG pO2 79 L Sodium Potassium Chloride Carbon Dioxide 20 L BUN Creatinine Glucose 129 H POC Glucose Lactic Acid Calcium 7.6 L Phosphorus Magnesium Ferritin Total Bilirubin Lactate Dehydrogenase Total Creatine Kinase CK-MB (CK-2) C-Reactive Protein NT-Pro-B Natriuret Pep Total Protein Albumin Triglycerides Urine WBC (Auto) Urine Creatinine Urine Total Protein Vancomycin Trough Random Vancomycin Absolute CD4 Count Absolute CD19 Count Crossmatch 09/27/16 09/27/16 09/27/16 14:40 14:40 15:14 WBC 39.3 H RBC Hgb 9.3 L Hct 28.9 L MCV 75 L MCH 24 L RDW 18.7 H Plt Count [place] # Baso # Seg Neutrophils % Seg Neuts % (Manual) 93.5 H Lymphocytes % (Manual) 5.0 L Monocytes % (Manual) Eosinophils % (Manual) Nucleated RBC % Seg Neutrophils # Seg Neutrophils # Man 36.7 H Abs Lymphs (Manual) Lymphocytes # (Manual) Monocytes # (Manual) Eosinophils # (Manual) Percent Retic PT INR D-Dimer POC ABG pH POC ABG pCO2 POC ABG pO2 Sodium Potassium Chloride Carbon Dioxide BUN Creatinine Glucose POC Glucose Lactic Acid 2.9 H* Calcium Phosphorus Magnesium Ferritin Total Bilirubin Lactate Dehydrogenase Total Creatine Kinase 3575 H CK-MB (CK-2) 11.0 H C-Reactive Protein 16.10 H NT-Pro-B Natriuret Pep Total Protein Albumin Triglycerides Urine WBC (Auto) Urine Creatinine Urine Total Protein Vancomycin Trough Random Vancomycin Absolute CD4 Count Absolute CD19 Count Crossmatch 09/27/16 09/27/16 09/27/16 18:05 22:47 22:47 WBC RBC Hgb Hct MCV MCH RDW Plt Count [place] # Baso # Seg Neutrophils % Seg Neuts % (Manual) Lymphocytes % (Manual) Monocytes % (Manual) Eosinophils % (Manual) Nucleated RBC % Seg Neutrophils # Seg Neutrophils # Man Abs Lymphs (Manual) Lymphocytes # (Manual) Monocytes # (Manual) Eosinophils # (Manual) Percent Retic PT INR D-Dimer 4758.12 H POC ABG pH POC ABG pCO2 POC ABG pO2 70 L Sodium Potassium Chloride Carbon Dioxide BUN Creatinine Glucose POC Glucose Lactic Acid Calcium Phosphorus Magnesium Ferritin Total Bilirubin Lactate Dehydrogenase 829 H Total Creatine Kinase CK-MB (CK-2) C-Reactive Protein NT-Pro-B Natriuret Pep Total Protein Albumin Triglycerides Urine WBC (Auto) Urine Creatinine Urine Total Protein Vancomycin Trough Random Vancomycin Absolute CD4 Count Absolute CD19 Count Crossmatch 09/27/16 09/28/16 09/28/16 22:47 09:20 10:47 WBC RBC Hgb Hct MCV MCH RDW Plt Count [place] # Baso # Seg Neutrophils % Seg Neuts % (Manual) Lymphocytes % (Manual) Monocytes % (Manual) Eosinophils % (Manual) Nucleated RBC % Seg Neutrophils # Seg Neutrophils # Man Abs Lymphs (Manual) Lymphocytes # (Manual) Monocytes # (Manual) Eosinophils # (Manual) Percent Retic 8.11 H PT INR D-Dimer POC ABG pH POC ABG pCO2 47.2 H POC ABG pO2 70 L Sodium Potassium Chloride Carbon Dioxide BUN Creatinine 0.6 L Glucose 137 H POC Glucose Lactic Acid Calcium Phosphorus Magnesium Ferritin Total Bilirubin Lactate Dehydrogenase Total Creatine Kinase CK-MB (CK-2) C-Reactive Protein NT-Pro-B Natriuret Pep Total Protein Albumin Triglycerides Urine WBC (Auto) Urine Creatinine Urine Total Protein Vancomycin Trough Random Vancomycin Absolute CD4 Count Absolute CD19 Count Crossmatch 09/28/16 09/30/16 09/30/16 10:47 11:01 14:05 WBC 30.3 H RBC 3.27 L Hgb 8.1 L Hct 24.4 L MCV 75 L MCH 25 L RDW 18.9 H Plt Count [place] # Baso # Seg Neutrophils % Seg Neuts % (Manual) Lymphocytes % (Manual) 12.0 L Monocytes % (Manual) Eosinophils % (Manual) Nucleated RBC % 5.0 H Seg Neutrophils # Seg Neutrophils # Man 21.2 H Abs Lymphs (Manual) Lymphocytes # (Manual) Monocytes # (Manual) 1.8 H Eosinophils # (Manual) Percent Retic PT INR D-Dimer POC ABG pH POC ABG pCO2 48.8 H POC ABG pO2 52 L Sodium Potassium Chloride Carbon Dioxide BUN Creatinine Glucose POC Glucose Lactic Acid Calcium Phosphorus Magnesium Ferritin Total Bilirubin Lactate Dehydrogenase Total Creatine Kinase CK-MB (CK-2) C-Reactive Protein NT-Pro-B Natriuret Pep 2018 H Total Protein Albumin Triglycerides Urine WBC (Auto) Urine Creatinine Urine Total Protein Vancomycin Trough Random Vancomycin Absolute CD4 Count Absolute CD19 Count Crossmatch 09/30/16 09/30/16 09/30/16 14:05 14:05 14:05 WBC 22.1 H RBC 2.76 L Hgb 6.9 L Hct 20.6 L MCV 75 L MCH 25 L RDW 18.7 H Plt Count [place] # Baso # Seg Neutrophils % Seg Neuts % (Manual) 74.0 H Lymphocytes % (Manual) 7.0 L Monocytes % (Manual) Eosinophils % (Manual) Nucleated RBC % 52.0 H Seg Neutrophils # Seg Neutrophils # Man 16.4 H Abs Lymphs (Manual) Lymphocytes # (Manual) Monocytes # (Manual) Eosinophils # (Manual) Percent Retic PT INR D-Dimer POC ABG pH POC ABG pCO2 POC ABG pO2 Sodium Potassium 3.1 L Chloride Carbon Dioxide BUN Creatinine 0.5 L Glucose 116 H POC Glucose Lactic Acid Calcium 8.2 L Phosphorus Magnesium Ferritin Total Bilirubin Lactate Dehydrogenase Total Creatine Kinase CK-MB (CK-2) C-Reactive Protein 30.80 H NT-Pro-B Natriuret Pep Total Protein Albumin Triglycerides Urine WBC (Auto) Urine Creatinine Urine Total Protein Vancomycin Trough Random Vancomycin Absolute CD4 Count Absolute CD19 Count Crossmatch 0510/01/16 10/01/16 14:33 00:55 00:55 WBC 26.1 H RBC 2.80 L Hgb 6.8 L Hct 20.8 L MCV 74 L MCH 24 L RDW 18.6 H Plt Count [place] # Baso # Seg Neutrophils % Seg Neuts % (Manual) 85.0 H Lymphocytes % (Manual) 11.0 L Monocytes % (Manual) Eosinophils % (Manual) Nucleated RBC % 21.0 H Seg Neutrophils # Seg Neutrophils # Man 22.2 H Abs Lymphs (Manual) Lymphocytes # (Manual) Monocytes # (Manual) 1.0 H Eosinophils # (Manual) Percent Retic PT INR D-Dimer POC ABG pH POC ABG pCO2 47.8 H POC ABG pO2 201 H Sodium Potassium Chloride Carbon Dioxide BUN Creatinine Glucose POC Glucose Lactic Acid Calcium Phosphorus Magnesium Ferritin Total Bilirubin Lactate Dehydrogenase Total Creatine Kinase CK-MB (CK-2) C-Reactive Protein NT-Pro-B Natriuret Pep Total Protein Albumin Triglycerides Urine WBC (Auto) Urine Creatinine Urine Total Protein Vancomycin Trough Random Vancomycin Absolute CD4 Count Absolute CD19 Count Crossmatch See Detail 10/01/16 10/01/16 10/01/16 04:57 05:00 13:01 WBC RBC Hgb Hct MCV MCH RDW Plt Count [place] # Baso # Seg Neutrophils % Seg Neuts % (Manual) Lymphocytes % (Manual) Monocytes % (Manual) Eosinophils % (Manual) Nucleated RBC % Seg Neutrophils # Seg Neutrophils # Man Abs Lymphs (Manual) Lymphocytes # (Manual) Monocytes # (Manual) Eosinophils # (Manual) Percent Retic PT INR D-Dimer POC ABG pH POC ABG pCO2 58.5 H POC ABG pO2 149 H Sodium 149 H Potassium 3.0 L Chloride Carbon Dioxide BUN Creatinine Glucose POC Glucose 120 H Lactic Acid Calcium 8.3 L Phosphorus Magnesium Ferritin Total Bilirubin Lactate Dehydrogenase Total Creatine Kinase CK-MB (CK-2) C-Reactive Protein NT-Pro-B Natriuret Pep Total Protein Albumin Triglycerides Urine WBC (Auto) Urine Creatinine Urine Total Protein Vancomycin Trough Random Vancomycin Absolute CD4 Count Absolute CD19 Count Crossmatch 10/01/16 10/01/16 10/01/16 15:43 17:44 23:37 WBC 27.6 H RBC 3.55 L Hgb 8.9 L Hct 27.6 L D MCV 78 L D MCH 25 L RDW 18.1 H Plt Count [place] # Baso # Seg Neutrophils % Seg Neuts % (Manual) 79.5 H Lymphocytes % (Manual) 8.0 L Monocytes % (Manual) Eosinophils % (Manual) Nucleated RBC % 65.0 H Seg Neutrophils # Seg Neutrophils # Man 21.9 H Abs Lymphs (Manual) Lymphocytes # (Manual) Monocytes # (Manual) 1.0 H Eosinophils # (Manual) Percent Retic PT INR D-Dimer POC ABG pH POC ABG pCO2 POC ABG pO2 Sodium Potassium Chloride Carbon Dioxide BUN Creatinine Glucose POC Glucose 121 H 129 H Lactic Acid Calcium Phosphorus Magnesium Ferritin Total Bilirubin Lactate Dehydrogenase Total Creatine Kinase CK-MB (CK-2) C-Reactive Protein NT-Pro-B Natriuret Pep Total Protein Albumin Triglycerides Urine WBC (Auto) Urine Creatinine Urine Total Protein Vancomycin Trough Random Vancomycin Absolute CD4 Count Absolute CD19 Count Crossmatch 10/02/16 10/02/16 10/02/16 05:05 05:40 06:00 WBC 23.0 H RBC 3.30 L Hgb 8.3 L Hct 25.8 L MCV 78 L MCH 25 L RDW 18.2 H Plt Count [place] # Baso # Seg Neutrophils % Seg Neuts % (Manual) 83.5 H Lymphocytes % (Manual) 4.0 L Monocytes % (Manual) Eosinophils % (Manual) Nucleated RBC % 14.5 H Seg Neutrophils # Seg Neutrophils # Man 25.1 H Abs Lymphs (Manual) Lymphocytes # (Manual) Monocytes # (Manual) 1.7 H Eosinophils # (Manual) Percent Retic PT INR D-Dimer POC ABG pH POC ABG pCO2 50.5 H POC ABG pO2 Sodium Potassium Chloride Carbon Dioxide BUN Creatinine Glucose POC Glucose 123 H Lactic Acid Calcium Phosphorus Magnesium Ferritin Total Bilirubin Lactate Dehydrogenase Total Creatine Kinase CK-MB (CK-2) C-Reactive Protein NT-Pro-B Natriuret Pep Total Protein Albumin Triglycerides Urine WBC (Auto) Urine Creatinine Urine Total Protein Vancomycin Trough Random Vancomycin Absolute CD4 Count Absolute CD19 Count Crossmatch 10/02/16 10/02/16 10/02/16 06:00 11:42 21:52 WBC RBC Hgb Hct MCV MCH RDW Plt Count [place] # Baso # Seg Neutrophils % Seg Neuts % (Manual) Lymphocytes % (Manual) Monocytes % (Manual) Eosinophils % (Manual) Nucleated RBC % Seg Neutrophils # Seg Neutrophils # Man Abs Lymphs (Manual) Lymphocytes # (Manual) Monocytes # (Manual) Eosinophils # (Manual) Percent Retic PT INR D-Dimer POC ABG pH 7.324 L POC ABG pCO2 60.5 H POC ABG pO2 74 L Sodium 150 H Potassium Chloride 108.3 H Carbon Dioxide BUN 20 H Creatinine 1.4 H D Glucose 117 H POC Glucose 135 H Lactic Acid Calcium Phosphorus Magnesium Ferritin Total Bilirubin Lactate Dehydrogenase Total Creatine Kinase CK-MB (CK-2) C-Reactive Protein NT-Pro-B Natriuret Pep Total Protein Albumin Triglycerides Urine WBC (Auto) Urine Creatinine Urine Total Protein Vancomycin Trough Random Vancomycin Absolute CD4 Count Absolute CD19 Count Crossmatch 10/02/16 10/03/16 10/03/16 23:26 05:55 08:17 WBC 32.0 H RBC 3.13 L Hgb 7.9 L Hct 24.6 L MCV MCH 25 L RDW 18.9 H Plt Count 132 L [place] # Baso # Seg Neutrophils % Seg Neuts % (Manual) 75.0 H Lymphocytes % (Manual) 5.0 L Monocytes % (Manual) Eosinophils % (Manual) Nucleated RBC % 26.0 H Seg Neutrophils # Seg Neutrophils # Man 24.0 H Abs Lymphs (Manual) Lymphocytes # (Manual) Monocytes # (Manual) 1.0 H Eosinophils # (Manual) 1.0 H Percent Retic PT INR D-Dimer POC ABG pH POC ABG pCO2 POC ABG pO2 Sodium Potassium Chloride Carbon Dioxide BUN Creatinine Glucose POC Glucose 121 H 145 H Lactic Acid Calcium Phosphorus Magnesium Ferritin Total Bilirubin Lactate Dehydrogenase Total Creatine Kinase CK-MB (CK-2) C-Reactive Protein NT-Pro-B Natriuret Pep Total Protein Albumin Triglycerides Urine WBC (Auto) Urine Creatinine Urine Total Protein Vancomycin Trough Random Vancomycin Absolute CD4 Count Absolute CD19 Count Crossmatch 10/03/16 10/03/16 10/03/16 08:17 09:26 11:34 WBC RBC Hgb Hct MCV MCH RDW Plt Count [place] # Baso # Seg Neutrophils % Seg Neuts % (Manual) Lymphocytes % (Manual) Monocytes % (Manual) Eosinophils % (Manual) Nucleated RBC % Seg Neutrophils # Seg Neutrophils # Man Abs Lymphs (Manual) Lymphocytes # (Manual) Monocytes # (Manual) Eosinophils # (Manual) Percent Retic PT INR D-Dimer POC ABG pH 7.274 L POC ABG pCO2 59.7 H POC ABG pO2 58 L Sodium 147 H Potassium Chloride 107.6 H Carbon Dioxide BUN 31 H Creatinine 1.7 H Glucose 118 H POC Glucose 142 H Lactic Acid Calcium Phosphorus Magnesium Ferritin Total Bilirubin Lactate Dehydrogenase Total Creatine Kinase CK-MB (CK-2) C-Reactive Protein NT-Pro-B Natriuret Pep Total Protein Albumin Triglycerides Urine WBC (Auto) Urine Creatinine Urine Total Protein Vancomycin Trough Random Vancomycin Absolute CD4 Count Absolute CD19 Count Crossmatch 10/03/16 10/03/16 10/03/16 15:54 15:54 16:58 WBC RBC Hgb Hct MCV MCH RDW Plt Count [place] # Baso # Seg Neutrophils % Seg Neuts % (Manual) Lymphocytes % (Manual) Monocytes % (Manual) Eosinophils % (Manual) Nucleated RBC % Seg Neutrophils # Seg Neutrophils # Man Abs Lymphs (Manual) Lymphocytes # (Manual) Monocytes # (Manual) Eosinophils # (Manual) Percent Retic PT INR D-Dimer POC ABG pH POC ABG pCO2 POC ABG pO2 Sodium Potassium Chloride Carbon Dioxide BUN Creatinine Glucose POC Glucose 138 H Lactic Acid Calcium Phosphorus Magnesium Ferritin Total Bilirubin Lactate Dehydrogenase Total Creatine Kinase CK-MB (CK-2) C-Reactive Protein NT-Pro-B Natriuret Pep Total Protein Albumin Triglycerides Urine WBC (Auto) 21.0 H Urine Creatinine 63.2 H Urine Total Protein 67 H Vancomycin Trough Random Vancomycin Absolute CD4 Count Absolute CD19 Count Crossmatch 10/03/16 10/03/16 10/04/16 21:37 23:44 04:00 WBC 30.3 H RBC 2.86 L Hgb 7.3 L Hct 22.6 L MCV MCH 25 L RDW 19.6 H Plt Count 125 L [place] # Baso # Seg Neutrophils % Seg Neuts % (Manual) Lymphocytes % (Manual) 12.0 L Monocytes % (Manual) Eosinophils % (Manual) 5.0 H Nucleated RBC % 30.0 H Seg Neutrophils # Seg Neutrophils # Man 12.7 H Abs Lymphs (Manual) Lymphocytes # (Manual) Monocytes # (Manual) 1.2 H Eosinophils # (Manual) 1.5 H Percent Retic PT INR D-Dimer POC ABG pH 7.271 L POC ABG pCO2 61.7 H POC ABG pO2 77 L Sodium Potassium Chloride Carbon Dioxide BUN Creatinine Glucose POC Glucose 130 H Lactic Acid Calcium Phosphorus Magnesium Ferritin Total Bilirubin Lactate Dehydrogenase Total Creatine Kinase CK-MB (CK-2) C-Reactive Protein NT-Pro-B Natriuret Pep Total Protein Albumin Triglycerides Urine WBC (Auto) Urine Creatinine Urine Total Protein Vancomycin Trough Random Vancomycin Absolute CD4 Count Absolute CD19 Count Crossmatch 10/04/16 10/04/16 10/04/16 04:03 06:02 12:29 WBC RBC Hgb Hct MCV MCH RDW Plt Count [place] # Baso # Seg Neutrophils % Seg Neuts % (Manual) Lymphocytes % (Manual) Monocytes % (Manual) Eosinophils % (Manual) Nucleated RBC % Seg Neutrophils # Seg Neutrophils # Man Abs Lymphs (Manual) Lymphocytes # (Manual) Monocytes # (Manual) Eosinophils # (Manual) Percent Retic PT INR D-Dimer POC ABG pH 7.248 L POC ABG pCO2 62.3 H POC ABG pO2 59 L Sodium Potassium Chloride Carbon Dioxide BUN 40 H Creatinine 1.7 H Glucose 110 H POC Glucose 123 H Lactic Acid Calcium Phosphorus Magnesium Ferritin Total Bilirubin Lactate Dehydrogenase Total Creatine Kinase CK-MB (CK-2) C-Reactive Protein NT-Pro-B Natriuret Pep Total Protein 5.6 L Albumin 2.1 L Triglycerides Urine WBC (Auto) Urine Creatinine Urine Total Protein Vancomycin Trough Random Vancomycin Absolute CD4 Count Absolute CD19 Count Crossmatch 10/04/16 10/04/16 10/04/16 12:39 15:14 17:45 WBC RBC Hgb Hct MCV MCH RDW Plt Count [place] # Baso # Seg Neutrophils % Seg Neuts % (Manual) Lymphocytes % (Manual) Monocytes % (Manual) Eosinophils % (Manual) Nucleated RBC % Seg Neutrophils # Seg Neutrophils # Man Abs Lymphs (Manual) Lymphocytes # (Manual) Monocytes # (Manual) Eosinophils # (Manual) Percent Retic PT INR D-Dimer POC ABG pH POC ABG pCO2 POC ABG pO2 109 H Sodium Potassium Chloride Carbon Dioxide BUN Creatinine Glucose POC Glucose 124 H Lactic Acid Calcium Phosphorus Magnesium Ferritin Total Bilirubin Lactate Dehydrogenase Total Creatine Kinase CK-MB (CK-2) C-Reactive Protein NT-Pro-B Natriuret Pep Total Protein Albumin Triglycerides Urine WBC (Auto) Urine Creatinine Urine Total Protein Vancomycin Trough 45.5 H Random Vancomycin Absolute CD4 Count Absolute CD19 Count Crossmatch 10/04/16 10/04/16 10/05/16 20:13 23:05 01:27 WBC 36.1 H RBC 2.99 L Hgb 7.3 L Hct 23.5 L MCV MCH 25 L RDW 19.6 H Plt Count [place] # Baso # Seg Neutrophils % Seg Neuts % (Manual) Lymphocytes % (Manual) Monocytes % (Manual) Eosinophils % (Manual) Nucleated RBC % Seg Neutrophils # Seg Neutrophils # Man Abs Lymphs (Manual) Lymphocytes # (Manual) Monocytes # (Manual) Eosinophils # (Manual) Percent Retic PT INR D-Dimer POC ABG pH 7.341 L POC ABG pCO2 POC ABG pO2 47 L Sodium Potassium Chloride Carbon Dioxide BUN Creatinine Glucose POC Glucose 127 H Lactic Acid Calcium Phosphorus Magnesium Ferritin Total Bilirubin Lactate Dehydrogenase Total Creatine Kinase CK-MB (CK-2) C-Reactive Protein NT-Pro-B Natriuret Pep Total Protein Albumin Triglycerides Urine WBC (Auto) Urine Creatinine Urine Total Protein Vancomycin Trough Random Vancomycin Absolute CD4 Count Absolute CD19 Count Crossmatch 10/05/16 10/05/16 10/05/16 01:27 03:50 05:00 WBC RBC Hgb Hct MCV MCH RDW Plt Count [place] # Baso # Seg Neutrophils % Seg Neuts % (Manual) Lymphocytes % (Manual) Monocytes % (Manual) Eosinophils % (Manual) Nucleated RBC % Seg Neutrophils # Seg Neutrophils # Man Abs Lymphs (Manual) Lymphocytes # (Manual) Monocytes # (Manual) Eosinophils # (Manual) Percent Retic PT INR D-Dimer POC ABG pH 7.330 L POC ABG pCO2 45.3 H POC ABG pO2 53 L Sodium Potassium Chloride Carbon Dioxide BUN 49 H Creatinine 1.6 H Glucose 112 H POC Glucose Lactic Acid Calcium Phosphorus Magnesium Ferritin Total Bilirubin Lactate Dehydrogenase Total Creatine Kinase CK-MB (CK-2) C-Reactive Protein NT-Pro-B Natriuret Pep Total Protein Albumin Triglycerides Urine WBC (Auto) Urine Creatinine Urine Total Protein Vancomycin Trough Random Vancomycin 43.6 H Absolute CD4 Count Absolute CD19 Count Crossmatch 10/05/16 10/05/16 10/05/16 05:30 12:08 14:00 WBC RBC Hgb Hct MCV MCH RDW Plt Count [place] # Baso # Seg Neutrophils % Seg Neuts % (Manual) Lymphocytes % (Manual) Monocytes % (Manual) Eosinophils % (Manual) Nucleated RBC % Seg Neutrophils # Seg Neutrophils # Man Abs Lymphs (Manual) Lymphocytes # (Manual) Monocytes # (Manual) Eosinophils # (Manual) Percent Retic PT INR D-Dimer POC ABG pH POC ABG pCO2 POC ABG pO2 Sodium Potassium Chloride Carbon Dioxide BUN Creatinine Glucose POC Glucose 141 H 149 H Lactic Acid Calcium Phosphorus Magnesium Ferritin Total Bilirubin Lactate Dehydrogenase Total Creatine Kinase CK-MB (CK-2) C-Reactive Protein 28.40 H NT-Pro-B Natriuret Pep Total Protein Albumin Triglycerides Urine WBC (Auto) Urine Creatinine Urine Total Protein Vancomycin Trough Random Vancomycin Absolute CD4 Count Absolute CD19 Count Crossmatch 10/05/16 10/05/16 10/05/16 15:37 16:41 17:15 WBC RBC Hgb Hct MCV MCH RDW Plt Count [place] # Baso # Seg Neutrophils % Seg Neuts % (Manual) Lymphocytes % (Manual) Monocytes % (Manual) Eosinophils % (Manual) Nucleated RBC % Seg Neutrophils # Seg Neutrophils # Man Abs Lymphs (Manual) Lymphocytes # (Manual) Monocytes # (Manual) Eosinophils # (Manual) Percent Retic PT INR D-Dimer POC ABG pH 7.157 L 7.133 L POC ABG pCO2 75.0 H 80.5 H POC ABG pO2 76 L Sodium Potassium Chloride Carbon Dioxide BUN Creatinine Glucose POC Glucose 151 H Lactic Acid Calcium Phosphorus Magnesium Ferritin Total Bilirubin Lactate Dehydrogenase Total Creatine Kinase CK-MB (CK-2) C-Reactive Protein NT-Pro-B Natriuret Pep Total Protein Albumin Triglycerides Urine WBC (Auto) Urine Creatinine Urine Total Protein Vancomycin Trough Random Vancomycin Absolute CD4 Count Absolute CD19 Count Crossmatch 10/05/16 10/05/16 10/06/16 19:58 23:50 03:57 WBC 45.3 H* RBC 3.08 L Hgb 7.5 L Hct 24.5 L MCV MCH 25 L RDW 20.1 H Plt Count [place] # Baso # Seg Neutrophils % Seg Neuts % (Manual) 24.0 L Lymphocytes % (Manual) 10.0 L Monocytes % (Manual) Eosinophils % (Manual) Nucleated RBC % 36.0 H Seg Neutrophils # Seg Neutrophils # Man 10.9 H Abs Lymphs (Manual) Lymphocytes # (Manual) Monocytes # (Manual) 3.2 H Eosinophils # (Manual) 0.5 H Percent Retic PT INR D-Dimer POC ABG pH 7.198 L POC ABG pCO2 69.5 H POC ABG pO2 Sodium Potassium Chloride Carbon Dioxide BUN Creatinine Glucose POC Glucose 160 H Lactic Acid Calcium Phosphorus Magnesium Ferritin Total Bilirubin Lactate Dehydrogenase Total Creatine Kinase CK-MB (CK-2) C-Reactive Protein NT-Pro-B Natriuret Pep Total Protein Albumin Triglycerides Urine WBC (Auto) Urine Creatinine Urine Total Protein Vancomycin Trough Random Vancomycin Absolute CD4 Count Absolute CD19 Count Crossmatch 10/06/16 10/06/16 10/06/16 03:57 05:38 06:08 WBC RBC Hgb Hct MCV MCH RDW Plt Count [place] # Baso # Seg Neutrophils % Seg Neuts % (Manual) Lymphocytes % (Manual) Monocytes % (Manual) Eosinophils % (Manual) Nucleated RBC % Seg Neutrophils # Seg Neutrophils # Man Abs Lymphs (Manual) Lymphocytes # (Manual) Monocytes # (Manual) Eosinophils # (Manual) Percent Retic PT INR D-Dimer POC ABG pH 7.226 L POC ABG pCO2 63.3 H POC ABG pO2 Sodium 152 H D Potassium Chloride 114.1 H Carbon Dioxide BUN 58 H Creatinine 1.6 H Glucose 123 H POC Glucose 129 H Lactic Acid Calcium Phosphorus Magnesium Ferritin Total Bilirubin Lactate Dehydrogenase Total Creatine Kinase CK-MB (CK-2) C-Reactive Protein NT-Pro-B Natriuret Pep Total Protein Albumin Triglycerides Urine WBC (Auto) Urine Creatinine Urine Total Protein Vancomycin Trough Random Vancomycin Absolute CD4 Count Absolute CD19 Count Crossmatch 10/06/16 10/06/16 10/06/16 11:38 14:31 18:10 WBC RBC Hgb Hct MCV MCH RDW Plt Count [place] # Baso # Seg Neutrophils % Seg Neuts % (Manual) Lymphocytes % (Manual) Monocytes % (Manual) Eosinophils % (Manual) Nucleated RBC % Seg Neutrophils # Seg Neutrophils # Man Abs Lymphs (Manual) Lymphocytes # (Manual) Monocytes # (Manual) Eosinophils # (Manual) Percent Retic PT INR D-Dimer POC ABG pH 7.345 L POC ABG pCO2 49.5 H POC ABG pO2 60 L Sodium Potassium Chloride Carbon Dioxide BUN Creatinine Glucose POC Glucose 126 H 196 H Lactic Acid Calcium Phosphorus Magnesium Ferritin Total Bilirubin Lactate Dehydrogenase Total Creatine Kinase CK-MB (CK-2) C-Reactive Protein NT-Pro-B Natriuret Pep Total Protein Albumin Triglycerides Urine WBC (Auto) Urine Creatinine Urine Total Protein Vancomycin Trough Random Vancomycin Absolute CD4 Count Absolute CD19 Count Crossmatch 10/06/16 10/07/16 10/07/16 21:07 00:55 00:55 WBC 55.1 H* RBC 3.06 L Hgb 7.5 L Hct 24.4 L MCV MCH 24 L RDW 20.7 H Plt Count [place] # Baso # Seg Neutrophils % Seg Neuts % (Manual) Lymphocytes % (Manual) 8.0 L Monocytes % (Manual) 9.0 H Eosinophils % (Manual) Nucleated RBC % 30.0 H Seg Neutrophils # Seg Neutrophils # Man 27.0 H Abs Lymphs (Manual) Lymphocytes # (Manual) Monocytes # (Manual) 5.0 H Eosinophils # (Manual) 0.6 H Percent Retic PT INR D-Dimer POC ABG pH 7.317 L POC ABG pCO2 55.2 H POC ABG pO2 59 L Sodium 148 H Potassium Chloride 110.2 H Carbon Dioxide BUN 56 H Creatinine 1.7 H Glucose 211 H POC Glucose Lactic Acid Calcium Phosphorus Magnesium Ferritin Total Bilirubin Lactate Dehydrogenase Total Creatine Kinase CK-MB (CK-2) C-Reactive Protein NT-Pro-B Natriuret Pep Total Protein Albumin Triglycerides Urine WBC (Auto) Urine Creatinine Urine Total Protein Vancomycin Trough Random Vancomycin Absolute CD4 Count Absolute CD19 Count Crossmatch 10/07/16 10/07/16 10/07/16 01:01 05:20 06:31 WBC RBC Hgb Hct MCV MCH RDW Plt Count [place] # Baso # Seg Neutrophils % Seg Neuts % (Manual) Lymphocytes % (Manual) Monocytes % (Manual) Eosinophils % (Manual) Nucleated RBC % Seg Neutrophils # Seg Neutrophils # Man Abs Lymphs (Manual) Lymphocytes # (Manual) Monocytes # (Manual) Eosinophils # (Manual) Percent Retic PT INR D-Dimer POC ABG pH 7.310 L POC ABG pCO2 55.6 H POC ABG pO2 65 L Sodium Potassium Chloride Carbon Dioxide BUN Creatinine Glucose POC Glucose 249 H 235 H Lactic Acid Calcium Phosphorus Magnesium Ferritin Total Bilirubin Lactate Dehydrogenase Total Creatine Kinase CK-MB (CK-2) C-Reactive Protein NT-Pro-B Natriuret Pep Total Protein Albumin Triglycerides Urine WBC (Auto) Urine Creatinine Urine Total Protein Vancomycin Trough Random Vancomycin Absolute CD4 Count Absolute CD19 Count Crossmatch 10/07/16 10/07/16 10/07/16 12:00 18:04 23:48 WBC RBC Hgb Hct MCV MCH RDW Plt Count [place] # Baso # Seg Neutrophils % Seg Neuts % (Manual) Lymphocytes % (Manual) Monocytes % (Manual) Eosinophils % (Manual) Nucleated RBC % Seg Neutrophils # Seg Neutrophils # Man Abs Lymphs (Manual) Lymphocytes # (Manual) Monocytes # (Manual) Eosinophils # (Manual) Percent Retic PT INR D-Dimer POC ABG pH POC ABG pCO2 POC ABG pO2 Sodium Potassium Chloride Carbon Dioxide BUN Creatinine Glucose POC Glucose 210 H 201 H 163 H Lactic Acid Calcium Phosphorus Magnesium Ferritin Total Bilirubin Lactate Dehydrogenase Total Creatine Kinase CK-MB (CK-2) C-Reactive Protein NT-Pro-B Natriuret Pep Total Protein Albumin Triglycerides Urine WBC (Auto) Urine Creatinine Urine Total Protein Vancomycin Trough Random Vancomycin Absolute CD4 Count Absolute CD19 Count Crossmatch 10/08/16 10/08/16 10/08/16 04:00 04:00 04:10 WBC 58.0 H* RBC 2.95 L Hgb 7.3 L Hct 23.4 L MCV MCH 25 L RDW 20.8 H Plt Count [place] # Baso # Seg Neutrophils % Seg Neuts % (Manual) 75.0 H Lymphocytes % (Manual) 11.0 L Monocytes % (Manual) 8.0 H Eosinophils % (Manual) Nucleated RBC % 30.0 H Seg Neutrophils # Seg Neutrophils # Man 43.5 H Abs Lymphs (Manual) Lymphocytes # (Manual) 6.4 H Monocytes # (Manual) 4.6 H Eosinophils # (Manual) 0.6 H Percent Retic PT INR D-Dimer POC ABG pH POC ABG pCO2 POC ABG pO2 Sodium 152 H Potassium Chloride 111.4 H Carbon Dioxide BUN 59 H Creatinine 1.6 H Glucose 190 H POC Glucose 214 H Lactic Acid Calcium Phosphorus Magnesium Ferritin Total Bilirubin Lactate Dehydrogenase Total Creatine Kinase CK-MB (CK-2) C-Reactive Protein NT-Pro-B Natriuret Pep Total Protein Albumin Triglycerides Urine WBC (Auto) Urine Creatinine Urine Total Protein Vancomycin Trough Random Vancomycin Absolute CD4 Count Absolute CD19 Count Crossmatch 10/08/16 10/08/16 10/08/16 04:46 12:11 18:35 WBC RBC Hgb Hct MCV MCH RDW Plt Count [place] # Baso # Seg Neutrophils % Seg Neuts % (Manual) Lymphocytes % (Manual) Monocytes % (Manual) Eosinophils % (Manual) Nucleated RBC % Seg Neutrophils # Seg Neutrophils # Man Abs Lymphs (Manual) Lymphocytes # (Manual) Monocytes # (Manual) Eosinophils # (Manual) Percent Retic PT INR D-Dimer POC ABG pH POC ABG pCO2 POC ABG pO2 65 L Sodium Potassium Chloride Carbon Dioxide BUN Creatinine Glucose POC Glucose 199 H 187 H Lactic Acid Calcium Phosphorus Magnesium Ferritin Total Bilirubin Lactate Dehydrogenase Total Creatine Kinase CK-MB (CK-2) C-Reactive Protein NT-Pro-B Natriuret Pep Total Protein Albumin Triglycerides Urine WBC (Auto) Urine Creatinine Urine Total Protein Vancomycin Trough Random Vancomycin Absolute CD4 Count Absolute CD19 Count Crossmatch 10/08/16 10/09/16 10/09/16 23:38 04:43 05:38 WBC RBC Hgb Hct MCV MCH RDW Plt Count [place] # Baso # Seg Neutrophils % Seg Neuts % (Manual) Lymphocytes % (Manual) Monocytes % (Manual) Eosinophils % (Manual) Nucleated RBC % Seg Neutrophils # Seg Neutrophils # Man Abs Lymphs (Manual) Lymphocytes # (Manual) Monocytes # (Manual) Eosinophils # (Manual) Percent Retic PT INR D-Dimer POC ABG pH POC ABG pCO2 45.4 H POC ABG pO2 52 L Sodium Potassium Chloride Carbon Dioxide BUN Creatinine Glucose POC Glucose 202 H 182 H Lactic Acid Calcium Phosphorus Magnesium Ferritin Total Bilirubin Lactate Dehydrogenase Total Creatine Kinase CK-MB (CK-2) C-Reactive Protein NT-Pro-B Natriuret Pep Total Protein Albumin Triglycerides Urine WBC (Auto) Urine Creatinine Urine Total Protein Vancomycin Trough Random Vancomycin Absolute CD4 Count Absolute CD19 Count Crossmatch 10/09/16 10/09/16 10/09/16 07:40 07:40 10:00 WBC 37.3 H RBC 2.55 L Hgb 6.4 L Hct 20.7 L MCV MCH 25 L RDW 20.6 H Plt Count [place] # Baso # Seg Neutrophils % Seg Neuts % (Manual) Lymphocytes % (Manual) Monocytes % (Manual) Eosinophils % (Manual) Nucleated RBC % Seg Neutrophils # Seg Neutrophils # Man Abs Lymphs (Manual) Lymphocytes # (Manual) Monocytes # (Manual) Eosinophils # (Manual) Percent Retic PT INR D-Dimer POC ABG pH POC ABG pCO2 POC ABG pO2 Sodium 153 H Potassium 3.3 L Chloride 112.7 H Carbon Dioxide BUN 62 H Creatinine 1.7 H Glucose 146 H POC Glucose Lactic Acid Calcium Phosphorus Magnesium Ferritin Total Bilirubin Lactate Dehydrogenase Total Creatine Kinase CK-MB (CK-2) C-Reactive Protein NT-Pro-B Natriuret Pep Total Protein Albumin Triglycerides Urine WBC (Auto) Urine Creatinine Urine Total Protein Vancomycin Trough Random Vancomycin Absolute CD4 Count Absolute CD19 Count Crossmatch See Detail 10/09/16 10/09/16 10/10/16 12:06 17:08 00:01 WBC RBC Hgb Hct MCV MCH RDW Plt Count [place] # Baso # Seg Neutrophils % Seg Neuts % (Manual) Lymphocytes % (Manual) Monocytes % (Manual) Eosinophils % (Manual) Nucleated RBC % Seg Neutrophils # Seg Neutrophils # Man Abs Lymphs (Manual) Lymphocytes # (Manual) Monocytes # (Manual) Eosinophils # (Manual) Percent Retic PT INR D-Dimer POC ABG pH POC ABG pCO2 POC ABG pO2 Sodium Potassium Chloride Carbon Dioxide BUN Creatinine Glucose POC Glucose 214 H 152 H 189 H Lactic Acid Calcium Phosphorus Magnesium Ferritin Total Bilirubin Lactate Dehydrogenase Total Creatine Kinase CK-MB (CK-2) C-Reactive Protein NT-Pro-B Natriuret Pep Total Protein Albumin Triglycerides Urine WBC (Auto) Urine Creatinine Urine Total Protein Vancomycin Trough Random Vancomycin Absolute CD4 Count Absolute CD19 Count Crossmatch 10/10/16 10/10/16 10/10/16 04:25 05:28 06:00 WBC RBC Hgb Hct MCV MCH RDW Plt Count [place] # Baso # Seg Neutrophils % Seg Neuts % (Manual) Lymphocytes % (Manual) Monocytes % (Manual) Eosinophils % (Manual) Nucleated RBC % Seg Neutrophils # Seg Neutrophils # Man Abs Lymphs (Manual) Lymphocytes # (Manual) Monocytes # (Manual) Eosinophils # (Manual) Percent Retic PT INR D-Dimer POC ABG pH POC ABG pCO2 58.3 H POC ABG pO2 68 L Sodium Potassium Chloride Carbon Dioxide BUN Creatinine Glucose POC Glucose 155 H Lactic Acid Calcium Phosphorus Magnesium Ferritin Total Bilirubin Lactate Dehydrogenase Total Creatine Kinase CK-MB (CK-2) C-Reactive Protein NT-Pro-B Natriuret Pep Total Protein Albumin Triglycerides 407 H Urine WBC (Auto) Urine Creatinine Urine Total Protein Vancomycin Trough Random Vancomycin Absolute CD4 Count Absolute CD19 Count Crossmatch 10/10/16 10/10/16 10/10/16 06:00 06:00 06:00 WBC 38.5 H RBC 3.57 L Hgb 9.3 L Hct 30.1 L D MCV MCH 26 L RDW 22.0 H Plt Count 464 H [place] # Baso # Seg Neutrophils % Seg Neuts % (Manual) 81.0 H Lymphocytes % (Manual) 9.0 L Monocytes % (Manual) Eosinophils % (Manual) Nucleated RBC % 84.0 H Seg Neutrophils # Seg Neutrophils # Man 31.2 H Abs Lymphs (Manual) Lymphocytes # (Manual) Monocytes # (Manual) Eosinophils # (Manual) 1.2 H Percent Retic PT INR D-Dimer POC ABG pH POC ABG pCO2 POC ABG pO2 Sodium 153 H Potassium Chloride 108.3 H Carbon Dioxide 31 H BUN 62 H Creatinine 1.5 H Glucose 160 H POC Glucose Lactic Acid Calcium Phosphorus Magnesium Ferritin 782.0 H Total Bilirubin Lactate Dehydrogenase Total Creatine Kinase CK-MB (CK-2) C-Reactive Protein NT-Pro-B Natriuret Pep Total Protein Albumin Triglycerides Urine WBC (Auto) Urine Creatinine Urine Total Protein Vancomycin Trough Random Vancomycin Absolute CD4 Count Absolute CD19 Count Crossmatch 10/10/16 10/10/16 10/10/16 11:29 13:03 13:03 WBC RBC Hgb Hct MCV MCH RDW Plt Count [place] # Baso # Seg Neutrophils % Seg Neuts % (Manual) Lymphocytes % (Manual) Monocytes % (Manual) Eosinophils % (Manual) Nucleated RBC % Seg Neutrophils # Seg Neutrophils # Man Abs Lymphs (Manual) 3936 H Lymphocytes # (Manual) Monocytes # (Manual) Eosinophils # (Manual) Percent Retic PT 17.6 H INR 1.45 H D-Dimer POC ABG pH POC ABG pCO2 POC ABG pO2 Sodium Potassium Chloride Carbon Dioxide BUN Creatinine Glucose POC Glucose 177 H Lactic Acid Calcium Phosphorus Magnesium Ferritin Total Bilirubin Lactate Dehydrogenase Total Creatine Kinase CK-MB (CK-2) C-Reactive Protein NT-Pro-B Natriuret Pep Total Protein Albumin Triglycerides Urine WBC (Auto) Urine Creatinine Urine Total Protein Vancomycin Trough Random Vancomycin Absolute CD4 Count 2178 H Absolute CD19 Count 824 H Crossmatch 10/10/16 10/11/16 10/11/16 17:38 00:04 05:35 WBC RBC Hgb Hct MCV MCH RDW Plt Count [place] # Baso # Seg Neutrophils % Seg Neuts % (Manual) Lymphocytes % (Manual) Monocytes % (Manual) Eosinophils % (Manual) Nucleated RBC % Seg Neutrophils # Seg Neutrophils # Man Abs Lymphs (Manual) Lymphocytes # (Manual) Monocytes # (Manual) Eosinophils # (Manual) Percent Retic PT INR D-Dimer POC ABG pH POC ABG pCO2 56.6 H POC ABG pO2 63 L Sodium Potassium Chloride Carbon Dioxide BUN Creatinine Glucose POC Glucose 173 H 155 H Lactic Acid Calcium Phosphorus Magnesium Ferritin Total Bilirubin Lactate Dehydrogenase Total Creatine Kinase CK-MB (CK-2) C-Reactive Protein NT-Pro-B Natriuret Pep Total Protein Albumin Triglycerides Urine WBC (Auto) Urine Creatinine Urine Total Protein Vancomycin Trough Random Vancomycin Absolute CD4 Count Absolute CD19 Count Crossmatch 10/11/16 10/11/16 10/11/16 06:01 11:43 12:54 WBC 31.8 H RBC Hgb Hct MCV MCH RDW 17.8 H Plt Count [place] # Baso # Seg Neutrophils % Seg Neuts % (Manual) 84.0 H Lymphocytes % (Manual) 9.0 L Monocytes % (Manual) Eosinophils % (Manual) Nucleated RBC % 28.0 H Seg Neutrophils # Seg Neutrophils # Man 27.1 H Abs Lymphs (Manual) Lymphocytes # (Manual) Monocytes # (Manual) 1.6 H Eosinophils # (Manual) Percent Retic PT INR D-Dimer POC ABG pH POC ABG pCO2 POC ABG pO2 Sodium Potassium Chloride Carbon Dioxide BUN Creatinine Glucose POC Glucose 231 H 185 H Lactic Acid Calcium Phosphorus Magnesium Ferritin Total Bilirubin Lactate Dehydrogenase Total Creatine Kinase CK-MB (CK-2) C-Reactive Protein NT-Pro-B Natriuret Pep Total Protein Albumin Triglycerides Urine WBC (Auto) Urine Creatinine Urine Total Protein Vancomycin Trough Random Vancomycin Absolute CD4 Count Absolute CD19 Count Crossmatch 10/11/16 10/11/16 10/11/16 12:54 14:10 18:02 WBC RBC Hgb Hct MCV MCH RDW Plt Count [place] # [place] # Seg Neutrophils % Seg Neuts % (Manual) Lymphocytes % (Manual) Monocytes % (Manual) Eosinophils % (Manual) Nucleated RBC % Seg Neutrophils # Seg Neutrophils # Man Abs Lymphs (Manual) Lymphocytes # (Manual) Monocytes # (Manual) Eosinophils # (Manual) Percent Retic PT INR D-Dimer POC ABG pH 7.311 L POC ABG pCO2 71.4 H POC ABG pO2 59 L Sodium Potassium Chloride 97.1 L Carbon Dioxide BUN 57 H Creatinine 1.6 H Glucose 369 H POC Glucose 206 H Lactic Acid Calcium 8.2 L Phosphorus Magnesium Ferritin Total Bilirubin Lactate Dehydrogenase Total Creatine Kinase CK-MB (CK-2) C-Reactive Protein NT-Pro-B Natriuret Pep Total Protein Albumin Triglycerides Urine WBC (Auto) Urine Creatinine Urine Total Protein Vancomycin Trough Random Vancomycin Absolute CD4 Count Absolute CD19 Count Crossmatch 10/11/16 10/11/16 10/12/16 20:57 21:23 00:43 WBC RBC Hgb Hct MCV MCH RDW Plt Count [place] # Baso # Seg Neutrophils % Seg Neuts % (Manual) Lymphocytes % (Manual) Monocytes % (Manual) Eosinophils % (Manual) Nucleated RBC % Seg Neutrophils # Seg Neutrophils # Man Abs Lymphs (Manual) Lymphocytes # (Manual) Monocytes # (Manual) Eosinophils # (Manual) Percent Retic PT INR D-Dimer POC ABG pH 7.242 L POC ABG pCO2 88.4 H POC ABG pO2 57 L Sodium Potassium Chloride Carbon Dioxide BUN Creatinine Glucose POC Glucose 212 H Lactic Acid Calcium Phosphorus Magnesium Ferritin Total Bilirubin Lactate Dehydrogenase Total Creatine Kinase CK-MB (CK-2) C-Reactive Protein 3.00 H NT-Pro-B Natriuret Pep Total Protein Albumin Triglycerides Urine WBC (Auto) Urine Creatinine Urine Total Protein Vancomycin Trough Random Vancomycin Absolute CD4 Count Absolute CD19 Count Crossmatch 10/12/16 10/12/16 10/12/16 05:49 06:03 06:57 WBC 37.0 H RBC Hgb Hct MCV MCH RDW 18.0 H Plt Count [place] # 2.0 H Baso # 0.2 H Seg Neutrophils % 86.7 H Seg Neuts % (Manual) 91.5 H Lymphocytes % (Manual) 6.0 L Monocytes % (Manual) Eosinophils % (Manual) Nucleated RBC % 15.5 H Seg Neutrophils # 30.6 H Seg Neutrophils # Man 33.9 H Abs Lymphs (Manual) Lymphocytes # (Manual) Monocytes # (Manual) Eosinophils # (Manual) Percent Retic PT INR D-Dimer POC ABG pH 7.289 L POC ABG pCO2 82.4 H POC ABG pO2 65 L Sodium Potassium Chloride Carbon Dioxide BUN Creatinine Glucose POC Glucose 230 H Lactic Acid Calcium Phosphorus Magnesium Ferritin Total Bilirubin Lactate Dehydrogenase Total Creatine Kinase CK-MB (CK-2) C-Reactive Protein NT-Pro-B Natriuret Pep Total Protein Albumin Triglycerides Urine WBC (Auto) Urine Creatinine Urine Total Protein Vancomycin Trough Random Vancomycin Absolute CD4 Count Absolute CD19 Count Crossmatch 10/12/16 10/12/16 10/12/16 06:57 11:59 17:00 WBC RBC Hgb Hct MCV MCH RDW Plt Count [place] # Baso # Seg Neutrophils % Seg Neuts % (Manual) Lymphocytes % (Manual) Monocytes % (Manual) Eosinophils % (Manual) Nucleated RBC % Seg Neutrophils # Seg Neutrophils # Man Abs Lymphs (Manual) Lymphocytes # (Manual) Monocytes # (Manual) Eosinophils # (Manual) Percent Retic PT INR D-Dimer POC ABG pH POC ABG pCO2 POC ABG pO2 Sodium 151 H D 130 L D Potassium Chloride Carbon Dioxide 32 H BUN 62 H Creatinine 1.6 H Glucose 231 H POC Glucose 222 H Lactic Acid Calcium Phosphorus 4.90 H Magnesium Ferritin Total Bilirubin Lactate Dehydrogenase Total Creatine Kinase CK-MB (CK-2) C-Reactive Protein NT-Pro-B Natriuret Pep Total Protein Albumin Triglycerides Urine WBC (Auto) Urine Creatinine Urine Total Protein Vancomycin Trough Random Vancomycin Absolute CD4 Count Absolute CD19 Count Crossmatch 10/12/16 10/12/16 10/12/16 17:41 22:04 23:25 WBC RBC Hgb Hct MCV MCH RDW Plt Count [place] # Baso # Seg Neutrophils % Seg Neuts % (Manual) Lymphocytes % (Manual) Monocytes % (Manual) Eosinophils % (Manual) Nucleated RBC % Seg Neutrophils # Seg Neutrophils # Man Abs Lymphs (Manual) Lymphocytes # (Manual) Monocytes # (Manual) Eosinophils # (Manual) Percent Retic PT INR D-Dimer POC ABG pH 7.264 L POC ABG pCO2 89.1 H POC ABG pO2 62 L Sodium Potassium Chloride Carbon Dioxide BUN Creatinine Glucose POC Glucose 223 H 160 H Lactic Acid Calcium Phosphorus Magnesium Ferritin Total Bilirubin Lactate Dehydrogenase Total Creatine Kinase CK-MB (CK-2) C-Reactive Protein NT-Pro-B Natriuret Pep Total Protein Albumin Triglycerides Urine WBC (Auto) Urine Creatinine Urine Total Protein Vancomycin Trough Random Vancomycin Absolute CD4 Count Absolute CD19 Count Crossmatch 10/13/16 10/13/16 10/13/16 05:30 06:00 06:00 WBC 25.9 H RBC Hgb Hct MCV MCH RDW 18.1 H Plt Count Dickinson # Baso # Seg Neutrophils % Seg Neuts % (Manual) 85.0 H Lymphocytes % (Manual) 9.0 L Monocytes % (Manual) Eosinophils % (Manual) Nucleated RBC % 6.0 H Seg Neutrophils # Seg Neutrophils # Man 22.0 H Abs Lymphs (Manual) Lymphocytes # (Manual) Monocytes # (Manual) 1.4 H Eosinophils # (Manual) Percent Retic PT INR D-Dimer POC ABG pH 7.281 L POC ABG pCO2 89.6 H POC ABG pO2 63 L Sodium 148 H D Potassium Chloride Carbon Dioxide 36 H BUN 58 H Creatinine 1.3 H Glucose 189 H POC Glucose Lactic Acid Calcium Phosphorus Magnesium Ferritin Total Bilirubin Lactate Dehydrogenase Total Creatine Kinase CK-MB (CK-2) C-Reactive Protein NT-Pro-B Natriuret Pep Total Protein Albumin Triglycerides Urine WBC (Auto) Urine Creatinine Urine Total Protein Vancomycin Trough Random Vancomycin Absolute CD4 Count Absolute CD19 Count Crossmatch 10/13/16 10/13/16 10/13/16 06:20 11:10 17:26 WBC RBC Hgb Hct MCV MCH RDW Plt Count Dickinson # Baso # Seg Neutrophils % Seg Neuts % (Manual) Lymphocytes % (Manual) Monocytes % (Manual) Eosinophils % (Manual) Nucleated RBC % Seg Neutrophils # Seg Neutrophils # Man Abs Lymphs (Manual) Lymphocytes # (Manual) Monocytes # (Manual) Eosinophils # (Manual) Percent Retic PT INR D-Dimer POC ABG pH POC ABG pCO2 POC ABG pO2 Sodium Potassium Chloride Carbon Dioxide BUN Creatinine Glucose POC Glucose 192 H 198 H 162 H Lactic Acid Calcium Phosphorus Magnesium Ferritin Total Bilirubin Lactate Dehydrogenase Total Creatine Kinase CK-MB (CK-2) C-Reactive Protein NT-Pro-B Natriuret Pep Total Protein Albumin Triglycerides Urine WBC (Auto) Urine Creatinine Urine Total Protein Vancomycin Trough Random Vancomycin Absolute CD4 Count Absolute CD19 Count Crossmatch 10/13/16 10/13/16 10/13/16 20:40 20:57 23:33 WBC RBC Hgb Hct MCV MCH RDW Plt Count Dickinson # Baso # Seg Neutrophils % Seg Neuts % (Manual) Lymphocytes % (Manual) Monocytes % (Manual) Eosinophils % (Manual) Nucleated RBC % Seg Neutrophils # Seg Neutrophils # Man Abs Lymphs (Manual) Lymphocytes # (Manual) Monocytes # (Manual) Eosinophils # (Manual) Percent Retic PT INR D-Dimer POC ABG pH 7.201 L 7.455 H POC ABG pCO2 111.2 H 54.2 H POC ABG pO2 45 L 57 L Sodium 148 H Potassium Chloride Carbon Dioxide BUN Creatinine Glucose POC Glucose Lactic Acid Calcium Phosphorus Magnesium Ferritin Total Bilirubin Lactate Dehydrogenase Total Creatine Kinase CK-MB (CK-2) C-Reactive Protein NT-Pro-B Natriuret Pep Total Protein Albumin Triglycerides Urine WBC (Auto) Urine Creatinine Urine Total Protein Vancomycin Trough Random Vancomycin Absolute CD4 Count Absolute CD19 Count Crossmatch 10/14/16 10/14/16 10/14/16 00:48 04:12 05:30 WBC 23.1 H RBC 3.49 L Hgb 9.9 L Hct MCV MCH RDW 16.9 H Plt Count Dickinson # Baso # Seg Neutrophils % Seg Neuts % (Manual) 82.0 H Lymphocytes % (Manual) 9.0 L Monocytes % (Manual) Eosinophils % (Manual) Nucleated RBC % 2.0 H Seg Neutrophils # Seg Neutrophils # Man 18.9 H Abs Lymphs (Manual) Lymphocytes # (Manual) Monocytes # (Manual) 1.4 H Eosinophils # (Manual) Percent Retic PT INR D-Dimer POC ABG pH 7.497 H POC ABG pCO2 49.4 H POC ABG pO2 60 L Sodium Potassium Chloride Carbon Dioxide BUN Creatinine Glucose POC Glucose 147 H Lactic Acid Calcium Phosphorus Magnesium Ferritin Total Bilirubin Lactate Dehydrogenase Total Creatine Kinase CK-MB (CK-2) C-Reactive Protein NT-Pro-B Natriuret Pep Total Protein Albumin Triglycerides Urine WBC (Auto) Urine Creatinine Urine Total Protein Vancomycin Trough Random Vancomycin Absolute CD4 Count Absolute CD19 Count Crossmatch 10/14/16 10/14/16 10/14/16 05:30 05:30 05:53 WBC RBC Hgb Hct MCV MCH RDW Plt Count Dickinson # Baso # Seg Neutrophils % Seg Neuts % (Manual) Lymphocytes % (Manual) Monocytes % (Manual) Eosinophils % (Manual) Nucleated RBC % Seg Neutrophils # Seg Neutrophils # Man Abs Lymphs (Manual) Lymphocytes # (Manual) Monocytes # (Manual) Eosinophils # (Manual) Percent Retic PT INR D-Dimer POC ABG pH POC ABG pCO2 POC ABG pO2 Sodium 146 H Potassium Chloride Carbon Dioxide 35 H BUN 56 H Creatinine 1.3 H Glucose 155 H POC Glucose 156 H Lactic Acid Calcium Phosphorus 1.90 L D Magnesium 2.90 H Ferritin Total Bilirubin Lactate Dehydrogenase Total Creatine Kinase CK-MB (CK-2) C-Reactive Protein NT-Pro-B Natriuret Pep Total Protein Albumin Triglycerides Urine WBC (Auto) Urine Creatinine Urine Total Protein Vancomycin Trough Random Vancomycin Absolute CD4 Count Absolute CD19 Count Crossmatch 10/14/16 10/14/16 10/14/16 12:05 14:34 17:33 WBC RBC Hgb Hct MCV MCH RDW Plt Count Dickinson # Baso # Seg Neutrophils % Seg Neuts % (Manual) Lymphocytes % (Manual) Monocytes % (Manual) Eosinophils % (Manual) Nucleated RBC % Seg Neutrophils # Seg Neutrophils # Man Abs Lymphs (Manual) Lymphocytes # (Manual) Monocytes # (Manual) Eosinophils # (Manual) Percent Retic PT INR D-Dimer POC ABG pH POC ABG pCO2 57.4 H POC ABG pO2 177 H Sodium Potassium Chloride Carbon Dioxide BUN Creatinine Glucose POC Glucose 145 H 172 H Lactic Acid Calcium Phosphorus Magnesium Ferritin Total Bilirubin Lactate Dehydrogenase Total Creatine Kinase CK-MB (CK-2) C-Reactive Protein NT-Pro-B Natriuret Pep Total Protein Albumin Triglycerides Urine WBC (Auto) Urine Creatinine Urine Total Protein Vancomycin Trough Random Vancomycin Absolute CD4 Count Absolute CD19 Count Crossmatch 10/14/16 10/14/16 10/15/16 21:57 23:31 05:10 WBC 23.9 H RBC 3.33 L Hgb 9.5 L Hct 29.7 L MCV MCH RDW 16.8 H Plt Count Dickinson # Baso # Seg Neutrophils % Seg Neuts % (Manual) Lymphocytes % (Manual) Monocytes % (Manual) Eosinophils % (Manual) Nucleated RBC % 4.0 H Seg Neutrophils # Seg Neutrophils # Man 15.3 H Abs Lymphs (Manual) Lymphocytes # (Manual) Monocytes # (Manual) 1.7 H Eosinophils # (Manual) 0.5 H Percent Retic PT INR D-Dimer POC ABG pH POC ABG pCO2 53.6 H POC ABG pO2 60 L Sodium Potassium Chloride Carbon Dioxide BUN Creatinine Glucose POC Glucose 201 H Lactic Acid Calcium Phosphorus Magnesium Ferritin Total Bilirubin Lactate Dehydrogenase Total Creatine Kinase CK-MB (CK-2) C-Reactive Protein NT-Pro-B Natriuret Pep Total Protein Albumin Triglycerides Urine WBC (Auto) Urine Creatinine Urine Total Protein Vancomycin Trough Random Vancomycin Absolute CD4 Count Absolute CD19 Count Crossmatch 10/15/16 10/15/16 10/15/16 05:10 05:10 05:40 WBC RBC Hgb Hct MCV MCH RDW Plt Count Dickinson # Baso # Seg Neutrophils % Seg Neuts % (Manual) Lymphocytes % (Manual) Monocytes % (Manual) Eosinophils % (Manual) Nucleated RBC % Seg Neutrophils # Seg Neutrophils # Man Abs Lymphs (Manual) Lymphocytes # (Manual) Monocytes # (Manual) Eosinophils # (Manual) Percent Retic PT INR D-Dimer POC ABG pH POC ABG pCO2 POC ABG pO2 Sodium Potassium 3.5 L Chloride Carbon Dioxide 33 H BUN 61 H Creatinine Glucose 127 H POC Glucose 145 H Lactic Acid Calcium 8.2 L Phosphorus 4.90 H D Magnesium 2.90 H Ferritin Total Bilirubin Lactate Dehydrogenase Total Creatine Kinase CK-MB (CK-2) C-Reactive Protein NT-Pro-B Natriuret Pep Total Protein Albumin Triglycerides Urine WBC (Auto) Urine Creatinine Urine Total Protein Vancomycin Trough Random Vancomycin Absolute CD4 Count Absolute CD19 Count Crossmatch 10/15/16 06:17 WBC RBC Hgb Hct MCV MCH RDW Plt Count Dickinson # Baso # Seg Neutrophils % Seg Neuts % (Manual) Lymphocytes % (Manual) Monocytes % (Manual) Eosinophils % (Manual) Nucleated RBC % Seg Neutrophils # Seg Neutrophils # Man Abs Lymphs (Manual) Lymphocytes # (Manual) Monocytes # (Manual) Eosinophils # (Manual) Percent Retic PT INR D-Dimer POC ABG pH POC ABG pCO2 65.2 H POC ABG pO2 Sodium Potassium Chloride Carbon Dioxide BUN Creatinine Glucose POC Glucose Lactic Acid Calcium Phosphorus Magnesium Ferritin Total Bilirubin Lactate Dehydrogenase Total Creatine Kinase CK-MB (CK-2) C-Reactive Protein NT-Pro-B Natriuret Pep Total Protein Albumin Triglycerides Urine WBC (Auto) Urine Creatinine Urine Total Protein Vancomycin Trough Random Vancomycin Absolute CD4 Count Absolute CD19 Count Crossmatch Allied health notes reviewed: RT
[2016-10-15] MEDS ORDERED: NACL 0.9% 1,000 ML IR ONE ×2 (11:02→12:00)
[2016-10-15] MEDS ORDERED: XYLOCAINE 2% INFILTRATI ONE ×2 (11:02→12:00)
[2016-10-15] MEDS: FOLVITE PO SCH (11:27)
[2016-10-15] MEDS: VALTREX PO SCH (11:27)
[2016-10-15] MEDS: ASPIRIN PO SCH (11:27)
[2016-10-15] MEDS: SENOKOT PO SCH (11:28)
[2016-10-15] MEDS: PEPCID PO SCH ×2 (11:28→22:29)
[2016-10-15] MEDS: THERAGRAN Tab PO SCH (11:28)
[2016-10-15] MEDS: LASIX IV SCH (11:28)
[2016-10-15] MEDS: LOVENOX SUB-Q SCH (11:28)
--- NOTE | 2016-10-15 11:54 | Procedure Note ---
Date of procedure: 10/15/16 Pre-op diagnosis: ARDS: Bilateral Pulmonary Infiltrates Post-op diagnosis: same Procedure: FIBEROPTIC BRONCHOSCOPY with BAL (Full dictation # [id number]) Please see dictated notes for full details
[2016-10-15] MEDS ORDERED: NACL 0.9% IR SCH (12:00)
--- NOTE | 2016-10-15 12:46 | XRay Report ---
AP CHEST: HISTORY: Followup respiratory failure Lines and tubes remain in good position. No significant change in the bilateral infiltrates or pulmonary edema is demonstrated since earlier today at 0224 hours. No pneumothorax. Heart size is stable. IMPRESSION: No change.
--- NOTE | 2016-10-15 14:48 | Progress Note ---
Assessment and Plan - Patient Problems (1) Acute respiratory failure with hypoxia Current Visit: Yes Status: Acute Plan to address problem: 1. While receiving high-dose steroids, Linezolid started given presence in sputum of MRSA with high Vancomycin SHEILA=2. (2) Leukemoid reaction Current Visit: Yes Status: Acute Plan to address problem: Unchanged WBC count. Follow clinically. Subjective Date of service: 10/15/16 Principal diagnosis: Acute Hypoxemic Respiratory Failure; ARDS Interval history: Patient remains in ICU. Bronchoscopy earlier revealed findings concerning for alveolar hemorrhage. Patient to be started on high-dose steroids. MRSA recently isolated from sputum. Objective - Constitutional Vitals: Vital Signs Temp Pulse Resp BP Pulse Ox 99.4 F 107 H 37 H 105/52 98 10/15/16 12:00 10/15/16 14:40 10/15/16 14:40 10/15/16 11:46 10/15/16 11:46 Temperature -Last 24 Hours Temperature 99.4 F Temperature 99.6 F Temperature 99.0 F Temperature 99.1 F Temperature 99.1 F Temperature 98.8 F Temperature 98.8 F Temperature 99.0 F General appearance: Present: obese, other (intubated) - EENT Eyes: exopthalmos ENT: other (Dobhoff tube in place) - Respiratory Respiratory: bilateral: CTA, negative: rales - Cardiovascular Rhythm: regular Heart Sounds: Present: S1 & S2 Extremities: No edema - Gastrointestinal General gastrointestinal: Present: soft, non-distended, hypoactive bowel sounds - Genitourinary Female genitourinary: other (Montes with yellow urine) - Integumentary Integumentary: no rash - Labs CBC & Chem 7: 10/15/16 05:10 10/15/16 05:10 Labs: Abnormal lab results 10/14/16 10/14/16 10/14/16 Range/Units 17:33 21:57 23:31 WBC (4.5-11.0) K/mm3 RBC (3.65-5.03) M/mm3 Hgb (10.1-14.3) gm/dl Hct (30.3-42.9) % RDW (13.2-15.2) % Nucleated RBC % (0.0-0.9) % Seg Neutrophils # Man (1.8-7.7) K/mm3 Monocytes # (Manual) (0.0-0.8) K/mm3 Eosinophils # (Manual) (0.0-0.4) K/mm3 POC ABG pCO2 53.6 H (35-45) POC ABG pO2 60 L (80-105) Potassium (3.6-5.0) mmol/L Carbon Dioxide (22-30) mmol/L BUN (7-17) mg/dL Glucose (65-100) mg/dL POC Glucose 172 H 201 H (70-105) Calcium (8.4-10.2) mg/dL Phosphorus (2.5-4.5) mg/dL Magnesium (1.7-2.3) mg/dL 10/15/16 10/15/16 10/15/16 Range/Units 05:10 05:10 05:10 WBC 23.9 H (4.5-11.0) K/mm3 RBC 3.33 L (3.65-5.03) M/mm3 Hgb 9.5 L (10.1-14.3) gm/dl Hct 29.7 L (30.3-42.9) % RDW 16.8 H (13.2-15.2) % Nucleated RBC % 4.0 H (0.0-0.9) % Seg Neutrophils # Man 15.3 H (1.8-7.7) K/mm3 Monocytes # (Manual) 1.7 H (0.0-0.8) K/mm3 Eosinophils # (Manual) 0.5 H (0.0-0.4) K/mm3 POC ABG pCO2 (35-45) POC ABG pO2 (80-105) Potassium 3.5 L (3.6-5.0) mmol/L Carbon Dioxide 33 H (22-30) mmol/L BUN 61 H (7-17) mg/dL Glucose 127 H (65-100) mg/dL POC Glucose (70-105) Calcium 8.2 L (8.4-10.2) mg/dL Phosphorus 4.90 H D (2.5-4.5) mg/dL Magnesium 2.90 H (1.7-2.3) mg/dL 10/15/16 10/15/16 Range/Units 05:40 06:17 WBC (4.5-11.0) K/mm3 RBC (3.65-5.03) M/mm3 Hgb (10.1-14.3) gm/dl Hct (30.3-42.9) % RDW (13.2-15.2) % Nucleated RBC % (0.0-0.9) % Seg Neutrophils # Man (1.8-7.7) K/mm3 Monocytes # (Manual) (0.0-0.8) K/mm3 Eosinophils # (Manual) (0.0-0.4) K/mm3 POC ABG pCO2 65.2 H (35-45) POC ABG pO2 (80-105) Potassium (3.6-5.0) mmol/L Carbon Dioxide (22-30) mmol/L BUN (7-17) mg/dL Glucose (65-100) mg/dL POC Glucose 145 H (70-105) Calcium (8.4-10.2) mg/dL Phosphorus (2.5-4.5) mg/dL Magnesium (1.7-2.3) mg/dL Microbiology 10/12/16 13:28 Tracheal Aspirate Sputum Culture - Final Methicillin Resist S. Aureus 10/04/16 04:05 Tracheal Aspirate Herpes Simplex Virus Culture - Final 10/03/16 09:20 Peripheral/Venous Blood Culture - Final NO GROWTH AFTER 5 DAYS 10/03/16 09:30 Picc Blood Culture - Final NO GROWTH AFTER 5 DAYS 10/03/16 09:06 Urine,Catheterized - Indwelling Catheter Urine Culture - Final 09/27/16 22:47 Peripheral/Venous Blood Culture - Final NO GROWTH AFTER 5 DAYS 09/27/16 22:47 Peripheral/Venous Blood Culture - Final NO GROWTH AFTER 5 DAYS 09/27/16 15:06 Peripheral/Venous Blood Culture - Final NO GROWTH AFTER 5 DAYS 09/27/16 14:40 Peripheral/Venous Blood Culture - Final NO GROWTH AFTER 5 DAYS 09/30/16 Unknown Tracheal Aspirate Sputum Culture - Final Active Medications Acetaminophen (Tylenol) 650 mg PO Q4H PRN PRN Reason: Pain MILD(1-3)/Fever >100.5/PALACIOS Last Admin: 10/07/16 18:13 Dose: 650 mg Albuterol/Ipratropium (Duoneb 0.5 Mg-3 Mg/3 Ml Soln) 1 ampul IH Q6HRT [facility] Last Admin: 10/15/16 14:40 Dose: 1 ampul Lipase/Protease/Amylase (Pancreaze Dr 10,500 Unit) 1 each FEEDTUBE PRN PRN PRN Reason: For Clogged Feeding Tube Arformoterol Tartrate (Brovana Nebu) 15 mcg IH Q12HRT [facility] Last Admin: 10/15/16 08:06 Dose: Not Given Aspirin (Aspirin) 325 mg PO QDAY [facility] Last Admin: 10/15/16 11:27 Dose: 325 mg Budesonide (Pulmicort) 0.5 mg IH Q12HRT [facility] Last Admin: 10/15/16 08:06 Dose: 0.5 mg Diphenhydramine HCl (Benadryl) 12.5 mg IV Q4H PRN PRN Reason: Itching Last Admin: 09/30/16 07:02 Dose: 12.5 mg Enoxaparin Sodium (Lovenox) 40 mg SUB-Q QDAY [facility] Last Admin: 10/15/16 11:28 Dose: 40 mg Famotidine (Pepcid) 20 mg PO BID [facility] Last Admin: 10/15/16 11:28 Dose: 20 mg Folic Acid (Folvite) 1 mg PO QDAY [facility] Last Admin: 10/15/16 11:27 Dose: 1 mg Furosemide (Lasix) 20 mg IV DAILY [facility] Last Admin: 10/15/16 11:28 Dose: 20 mg Hydrophilic Ointment (Vaseline Lip Therapy) 1 applic TP Q2HR PRN PRN Reason: Dry Lips Fentanyl Citrate (Fentanyl Drip Premix) 2,000 mcg in 100 mls @ 4.649 mls/hr IV TITR [facility]; 1 MCG/KG/HR PRN Reason: Protocol Last Admin: 10/15/16 02:33 Dose: 2 mcg/kg/hr, 9.299 mls/hr Midazolam HCl 100 mg/ Sodium (Chloride) 100 mls @ 2 mls/hr IV TITR SADAF; 2 MG/HR PRN Reason: Protocol Last Admin: 10/04/16 12:54 Dose: 2 mg/hr, 2 mls/hr Dextrose (D5w) 1,000 mls @ 50 mls/hr IV DIRECT [facility] Last Admin: 10/15/16 09:00 Dose: 50 mls/hr Propofol (Diprivan 10 Mg/Ml) 1,000 mg in 100 mls @ 3.045 mls/hr IV TITR [facility]; 5 MCG/KG/MIN PRN Reason: Protocol Last Admin: 10/15/16 06:00 Dose: 10 mcg/kg/min, 6.09 mls/hr Insulin Human Regular (Novolin R) 0 units SUB-Q Q6HR [facility] PRN Reason: Protocol Last Admin: 10/15/16 12:12 Dose: 1 units Linezolid (Zyvox) 600 mg PO Q12HR [facility] PRN Reason: Protocol Methylprednisolone Sodium Succinate (Solu-Medrol) 125 mg IV Q6H [facility] Multi-Ingred Cream/Lotion/Oil/Oint (Artificial Tears Ophth Oint) 1 applic OU Q4HR PRN PRN Reason: Dry Eye(s) Multivitamins (Theragran Tab) 1 each PO QDAY [facility] Last Admin: 10/15/16 11:28 Dose: 1 each Ondansetron HCl (Zofran) 4 mg IV Q8H PRN PRN Reason: Nausea And Vomiting Last Admin: 09/29/16 23:07 Dose: 4 mg Potassium Phos/Sodium Phos (Phos-Nak) 1 each FEEDTUBE Q8HR [facility] Last Admin: 10/15/16 06:02 Dose: 1 each Promethazine HCl (Phenergan) 25 mg CA Q6H PRN PRN Reason: Nausea And Vomiting Last Admin: 09/25/16 22:05 Dose: 25 mg Senna (Senokot) 17.2 mg PO DAILY [facility] Last Admin: 10/15/16 11:28 Dose: 17.2 mg Simple Syrup (Simple Syrup) 15 ml FEEDTUBE PRN PRN PRN Reason: Hypoglycemia Simple Syrup (Simple Syrup) 30 ml FEEDTUBE PRN PRN PRN Reason: Hypoglycemia Sodium Bicarbonate (Sodium Bicarbonate) 325 mg FEEDTUBE PRN PRN PRN Reason: For Clogged Feeding Tube Sodium Chloride (Sodium Chloride Flush Syringe 10 Ml) 10 ml IV PRN PRN PRN Reason: LINE FLUSH Tramadol HCl (Ultram) 50 mg PO Q4H PRN PRN Reason: Pain, Moderate (4-6) Last Admin: 10/06/16 21:54 Dose: 50 mg Valacyclovir HCl (Valtrex) 500 mg PO DAILY [facility] Last Admin: 10/15/16 11:27 Dose: 500 mg Zolpidem Tartrate (Ambien) 5 mg PO QHS PRN PRN Reason: Sleep - Imaging and cardiology Chest x-ray: report reviewed (no significant change in bilateral pulmonary infiltrates or edema)
[2016-10-15] MEDS: ZYVOX PO SCH ×2 (15:55→22:37)
--- NOTE | 2016-10-15 17:54 | Progress Note ---
Assessment and Plan Assessment and plan: The patient is a 41-year-old female with a history of sickle cell disease who was admitted for total hip arthroplasty for avascular necrosis of the left hip. She had left total hip arthroplasty on 09/25/2016 and developed acute hypoxemic respiratory failure following the POD 2 likely from ARDS and ultimately required intubation on 09/27/2016. Her hemoglobin level dropped from 8.1-6.9 on 09/30/2016, also noted to have hypokalemia with potassium level 3.1. Hospitalist service consulted for medical management. Patient remained in a I intubated with mechanical ventilation. Her white count continued to trend up. Maintained on sepsis protocol, CT scan of abdomen and pelvis and thorax done without contrast to identify the source for infection. CT scan of the chest was suggestive for possible pneumonia. She is currently on broad- spectrum antibiotics, critically ill with poor prognosis. 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 weaning when patient is more stable - pulmonary following, cont nebulizer, vent support, has completed antibiotics - wean off as tolerated -Pulmonary input appreciated, Sepsis syndrome - Likely from pneumonia - Spiking temp intermittently, wbc count continue to increased Patient has completed a 7 day course of antibiotics for treatment of sepsis/ pneumonia, ID input appreciated, on flagyl VRSA, MRSA PNA -trachial aspirate growing MRSA, VRSA- MDR organism Diffuse alveolar hemorhage high dose steroid initiated Severe anemia - History of thalassemia major - has received multiple prbc transfusion, and received exchange transfusion on 10/10/16 Transfuse to keep Hg above 7.5 - hematology following - Avscular necrosis of the left hip - s/p total left hip arthoplasty on 09/25/16 Hypokalemia -Status post replacement, continue to replete as needed Hypernatremia -Continue free water via gastric tube, improving Hypophosphatemia replace IV and via G tube and recheck CARLYN - likely from sepsis syndrome and ATN - monitor renal function - nephrology following, diuretic doses have been reduced, renal function improving Leukocytosis Most likely leukemoid reaction, improving, hematology input appreciated, flow cytometry has been ordered by the infection control manager Prognosis remains guarded; Critical care time 32 minutes NOK Son: Jordan Love [phone] Son: Gino kodi: [phone] Daughter: Varun Love [phone] Dispo: LTACH History Interval history: patient remains intubated, sedated, failed weaning trials Hospitalist Physical - Physical exam Narrative exam: General: Intubated sedated HEENT: MMM, EOMI cardiac: S1-S2 heard lungs: Rhonchorous ventilated breath sounds abdomen: soft, nontender, nondistended bowel sounds positive extremities: no edema clubbing or cyanosis Skin: no rash or lesion Neuro: Intubated, sedated, but is not obeying any commands - Constitutional Vitals: Temp Pulse Resp BP Pulse Ox 99.4 F 106 H 37 H 103/56 97 10/15/16 12:00 10/15/16 14:53 10/15/16 14:52 10/15/16 14:53 10/15/16 14:53 General appearance: Present: obese, other (intubated) Results - Labs CBC & Chem 7: 10/15/16 05:10 10/15/16 05:10 Labs: Laboratory Last Values WBC 23.9 K/mm3 (4.5-11.0) H 10/15/16 05:10 RBC 3.33 M/mm3 (3.65-5.03) L 10/15/16 05:10 Hgb 9.5 gm/dl (10.1-14.3) L 10/15/16 05:10 Hct 29.7 % (30.3-42.9) L 10/15/16 05:10 MCV 89 fl (79-97) 10/15/16 05:10 MCH 29 pg (28-32) 10/15/16 05:10 MCHC 32 % (30-34) 10/15/16 05:10 RDW 16.8 % (13.2-15.2) H 10/15/16 05:10 Plt Count 218 K/mm3 (140-440) 10/15/16 05:10 Lymph % (Auto) 33.3 % (13.4-35.0) 09/20/16 10:35 Holt % (Auto) 5.8 % (0.0-7.3) 05/13/17 06:57 Eos % (Auto) 0.3 % (0.0-4.3) 10/12/16 06:57 Baso % (Auto) 0.7 % (0.0-1.8) 09/20/16 10:35 Lymph # Manufacturing Scheduler 10/11/16 12:54 Holt # 2.0 K/mm3 (0.0-0.8) H 10/12/16 06:57 Eos # 0.1 K/mm3 (0.0-0.4) 10/12/16 06:57 Baso # 0.2 K/mm3 (0.0-0.1) H 10/12/16 06:57 Add Manual Diff Complete 10/15/16 05:10 Total Counted 100 10/15/16 05:10 Seg Neutrophils % 86.7 % (40.0-70.0) H 10/12/16 06:57 Seg Neuts % (Manual) 64.0 % (40.0-70.0) 10/15/16 05:10 Band Neutrophils % 9.0 % 10/15/16 05:10 Lymphocytes % (Manual) 18.0 % (13.4-35.0) 10/15/16 05:10 Reactive Lymphs % (Man) 0 % 10/15/16 05:10 Monocytes % (Manual) 7.0 % (0.0-7.3) 10/15/16 05:10 Eosinophils % (Manual) 2.0 % (0.0-4.3) 10/15/16 05:10 Basophils % (Manual) 0 % (0.0-1.8) 10/15/16 05:10 Metamyelocytes % 0 % 10/15/16 05:10 Myelocytes % 0 % 10/15/16 05:10 Promyelocytes % 0 % 10/15/16 05:10 Blast Cells % 0 % 10/15/16 05:10 Nucleated RBC % 4.0 % (0.0-0.9) H 10/15/16 05:10 Seg Neutrophils # 30.6 K/mm3 (1.8-7.7) H 10/12/16 06:57 Seg Neutrophils # Man 15.3 K/mm3 (1.8-7.7) H 10/15/16 05:10 Band Neutrophils # 2.2 K/mm3 10/15/16 05:10 Abs Lymphs (Manual) 3936 cells/uL (850-3900) H 10/10/16 13:03 Lymphocytes # (Manual) 4.3 K/mm3 (1.2-5.4) 10/15/16 05:10 Abs React Lymphs (Man) 0.0 K/mm3 10/15/16 05:10 Monocytes # (Manual) 1.7 K/mm3 (0.0-0.8) H 10/15/16 05:10 Eosinophils # (Manual) 0.5 K/mm3 (0.0-0.4) H 10/15/16 05:10 Basophils # (Manual) 0.0 K/mm3 (0.0-0.1) 10/15/16 05:10 Metamyelocytes # 0.0 K/mm3 10/15/16 05:10 Myelocytes # 0.0 K/mm3 10/15/16 05:10 Promyelocytes # 0.0 K/mm3 10/15/16 05:10 Blast Cells # 0.0 K/mm3 10/15/16 05:10 Pathologist Review 10/10/16 06:00 WBC Morphology Not Reportable 10/15/16 05:10 Hypersegmented Neuts Not Reportable 10/15/16 05:10 Hyposegmented Neuts Not Reportable 10/15/16 05:10 Hypogranular Neuts Not Reportable 10/15/16 05:10 Smudge Cells Few 10/15/16 05:10 Toxic Granulation Not Reportable 10/15/16 05:10 Toxic Vacuolation Not Reportable 10/15/16 05:10 Dohle Bodies Not Reportable 10/15/16 05:10 Pelger-Huet Anomaly Not Reportable 10/15/16 05:10 Jaspreet Rods Not Reportable 10/15/16 05:10 Platelet Estimate Appears normal 10/15/16 05:10 Clumped Platelets Not Reportable 10/15/16 05:10 Plt Clumps, EDTA Not Reportable 10/15/16 05:10 Large Platelets Not Reportable 10/15/16 05:10 Giant Platelets Not Reportable 10/15/16 05:10 Platelet Satelliting Not Reportable 10/15/16 05:10 Plt Morphology Comment Not Reportable 10/15/16 05:10 RBC Morphology Not Reportable 10/15/16 05:10 Dimorphic RBCs Not Reportable 10/15/16 05:10 Polychromasia Few 10/15/16 05:10 Hypochromasia 1+ 10/15/16 05:10 Poikilocytosis Not Reportable 10/15/16 05:10 Basophilic Stippling Few 10/10/16 06:00 Anisocytosis 1+ 10/15/16 05:10 Microcytosis Not Reportable 10/15/16 05:10 Macrocytosis Few 10/15/16 05:10 Spherocytes Not Reportable 10/15/16 05:10 Pappenheimer Bodies Not Reportable 10/15/16 05:10 Sickle Cells Not Reportable 10/15/16 05:10 Target Cells Not Reportable 10/15/16 05:10 Tear Drop Cells Not Reportable 10/15/16 05:10 Ovalocytes Not Reportable 10/15/16 05:10 Stomatocytes 1+ 10/14/16 05:30 Helmet Cells Not Reportable 10/15/16 05:10 Villatoro-Estherwood Bodies Not Reportable 10/15/16 05:10 Lamar Rings Not Reportable 10/15/16 05:10 [place] Cells Not Reportable 10/15/16 05:10 Bite Cells Not Reportable 10/15/16 05:10 Crenated Cell Not Reportable 10/15/16 05:10 Elliptocytes Not Reportable 10/15/16 05:10 Acanthocytes (Spur) Not Reportable 10/15/16 05:10 Rouleaux Not Reportable 10/15/16 05:10 Hemoglobin C Crystals Not Reportable 10/15/16 05:10 Schistocytes Not Reportable 10/15/16 05:10 Malaria parasites Not Reportable 10/15/16 05:10 Percent Retic 8.11 % (0.78-2.58) H 09/27/16 22:47 Jeffrey Bodies Not Reportable 10/15/16 05:10 Hem Pathologist Commnt No 10/15/16 05:10 PT 17.6 Sec. (12.2-14.9) H 10/10/16 13:03 INR 1.45 (0.87-1.13) H 10/10/16 13:03 APTT 31.1 Sec. (24.2-36.6) 09/20/16 10:35 D-Dimer 4758.12 ng/mlDDU (0-234) H 09/27/16 22:47 POC ABG pH 7.354 (7.35-7.45) 10/15/16 06:17 POC ABG pCO2 65.2 (35-45) H 10/15/16 06:17 POC ABG pO2 82 (80-105) 10/15/16 06:17 POC ABG HCO3 36.3 10/15/16 06:17 POC ABG Total CO2 38 10/15/16 06:17 POC ABG O2 Sat 95 10/15/16 06:17 POC ABG Base Excess 11 10/15/16 06:17 FiO2 60 % 10/15/16 06:17 Sodium 144 mmol/L (137-145) 10/15/16 05:10 Potassium 3.5 mmol/L (3.6-5.0) L 10/15/16 05:10 Chloride 98.0 mmol/L (98-107) 10/15/16 05:10 Carbon Dioxide 33 mmol/L (22-30) H 10/15/16 05:10 Anion Gap 17 mmol/L 10/15/16 05:10 BUN 61 mg/dL (7-17) H 10/15/16 05:10 Creatinine 1.1 mg/dL (0.7-1.2) 10/15/16 05:10 Estimated GFR > 60 ml/min 10/15/16 05:10 BUN/Creatinine Ratio 55.45 % 10/15/16 05:10 Glucose 127 mg/dL (65-100) H 10/15/16 05:10 POC Glucose 169 (70-105) H 10/15/16 11:09 Osmolality 311 Mosm/kg 10/04/16 04:03 Lactic Acid 1.00 mmol/L (0.7-2.0) 10/14/16 00:30 Calcium 8.2 mg/dL (8.4-10.2) L 10/15/16 05:10 Phosphorus 4.90 mg/dL (2.5-4.5) H D 10/15/16 05:10 Magnesium 2.90 mg/dL (1.7-2.3) H 10/15/16 05:10 Ferritin 782.0 ng/mL (13.0-400.0) H 10/10/16 06:00 Total Bilirubin 1.20 mg/dL (0.1-1.2) 10/04/16 04:03 AST 31 units/L (5-40) 10/04/16 04:03 ALT 33 units/L (7-56) 10/04/16 04:03 Alkaline Phosphatase 100 units/L (35-129) 10/04/16 04:03 Lactate Dehydrogenase 829 units/L (91-180) H 09/27/16 22:47 Total Creatine Kinase 3575 units/L (30-135) H 09/27/16 14:40 CK-MB (CK-2) 11.0 ng/mL (0.0-4.0) H 09/27/16 14:40 CK-MB (CK-2) Rel Index 0.3 (0-4) 09/27/16 14:40 Troponin T < 0.010 ng/mL (0.00-0.029) 09/27/16 14:40 C-Reactive Protein 1.00 mg/dL (0.00-1.30) 10/14/16 00:30 NT-Pro-B Natriuret Pep 2018 pg/mL (0-450) H 09/30/16 14:05 Total Protein 5.6 g/dL (6.3-8.2) L 10/04/16 04:03 Albumin 2.1 g/dL (3.9-5) L 10/04/16 04:03 Albumin/Globulin Ratio 0.6 % 10/04/16 04:03 Triglycerides 407 mg/dL (2-149) H 10/10/16 06:00 Urine Color Yellow (Yellow) 10/03/16 15:54 Urine Turbidity Cloudy (Clear) 10/03/16 15:54 Urine pH 5.0 (5.0-7.0) 10/03/16 15:54 Ur Specific [place] 1.013 (1.003-1.030) 10/03/16 15:54 Urine Protein 30 mg/dl mg/dL (Negative) 10/03/16 15:54 Urine Glucose (UA) Neg mg/dL (Negative) 10/03/16 15:54 Urine Ketones Neg mg/dL (Negative) 10/03/16 15:54 Urine Blood Lg (Negative) 10/03/16 15:54 Urine Nitrite Neg (Negative) 10/03/16 15:54 Urine Bilirubin Neg (Negative) 10/03/16 15:54 Urine Urobilinogen < 2.0 mg/dL (<2.0) 10/03/16 15:54 Ur Leukocyte Esterase Tr (Negative) 10/03/16 15:54 Urine WBC (Auto) 21.0 /HPF (0.0-6.0) H 10/03/16 15:54 Urine RBC (Auto) 65.0 /HPF (0.0-6.0) 10/03/16 15:54 U Epithel Cells (Auto) 2.0 /HPF (0-13.0) 10/03/16 15:54 Urine Bacteria (Auto) 3+ /HPF (Negative) 10/03/16 15:54 Amorphous Crystals 1+ 10/03/16 15:54 Urine Mucus Few /HPF 10/03/16 15:54 Urine Creatinine 63.2 mg/dL (0.1-20.0) H 10/03/16 15:54 Urine Sodium 20 mEq/L 10/03/16 15:54 Urine Total Protein 67 mg/dL (5-11.8) H 10/03/16 15:54 Vancomycin Trough 45.5 ug/mL (5.0-20.0) H 10/04/16 12:39 Random Vancomycin 14.9 ug/mL (0-40.0) 10/07/16 05:25 Lymph Enumerat CD4/CD8 2.87 (0.86-5.00) 10/10/16 13:03 % CD3 Cells 73 % (57-85) 10/10/16 13:03 Absolute CD3 Count 2879 cells/uL (840-3060) 10/10/16 13:03 % CD4 Cells 55 % (30-61) 10/10/16 13:03 Absolute CD4 Count 2178 cells/uL (490-1740) H 10/10/16 13:03 % CD8 Cells 19 % (12-42) 10/10/16 13:03 Absolute CD8 Count 759 cells/uL (180-1170) 10/10/16 13:03 % CD19 Cells 21 % (6-29) 10/10/16 13:03 Absolute CD19 Count 824 cells/uL (110-660) H 10/10/16 13:03 Flow Intrp 16+ Markers Scanned into med rec 10/08/16 04:00 Flow Cytometry Interp Scanned into med rec 10/08/16 04:00 Blood Type O POSITIVE 10/09/16 10:00 Antibody Screen TNR 10/01/16 00:55 DEACON Antibody Screen Negative 10/09/16 10:00 Crossmatch See Detail 10/09/16 10:00
--- NOTE | 2016-10-15 19:06 | Operative Report ---
PROCEDURE: Fiberoptic bronchoscopy with bronchioalveolar lavage. INDICATIONS: Adult respiratory distress syndrome, etiology unknown. CONSENT: Informed and witnessed obtained from the patient's brother, whom she had directed us to obtain consent from prior to intubation. COMPLICATIONS: No immediate procedural complications. DESCRIPTION OF PROCEDURE: As follows: After informed and witnessed consent as well as premedication, the patient was on a propofol drip and a fentanyl drip on the ventilator. The fiberoptic bronchoscope was passed through the Bodai valve, advanced into the distal trachea. The xavier was clean. Topical lidocaine about 6 mL of 2% lidocaine was applied at the xavier and then the right bronchial tree was entered. All the endobronchial tree that I could see was clean and clear for devoid of any erythema or infiltrates. I wedged the bronchoscope in the basilar segment of the right side and sequential aliquots of bronchoalveolar lavage samples were taken. A total of about 50-60 mL was put in with about 30 mL returned. ____ got sequentially more bloody with continued BAL. The fiberoptic bronchoscope was then withdrawn to the right upper lobe, and bronchoalveolar lavage samples were taken from there. We also got a bloody sample and return, but not as bloody as it was at the bases. The left lower bronchial tree was then evaluated at the left upper lobe, lingular divisions, basilar segments were all free of endobronchial tumor. All lesions then really very clean in the left lower lobe sequential aliquots of bronchoalveolar lavage samples were taken from the basilar segments without as much of the bloody resolved as obtained in the right lower lobe. Fiberoptic bronchoscope was then withdrawn again through the Bodai valve. The patient tolerated the procedure well. No immediate procedural complications. RECOMMENDATIONS: 1. Sent fluid for cytology. 2. Sent for cultures. 3. Treat tentative diagnosis of diffuse alveolar hemorrhage. JOB# [id number] LORRIE/GOMEZ
--- NOTE | 2016-10-15 23:09 | Consultation ---
History of Present Illness - Reason for Consult Consult date: 10/15/16 - History of Present Illness patient seen/examined, , still on the vent, but responding more strongly to her name calling.I have spoken to DR Burns, who thinks that patient may indeed have alveolar hemorrhage. Past History Past Medical History: anemia (sickle cell anemia) Social history: no significant social history Family history: no significant family history Medications and Allergies Allergies Allergy/AdvReac Type Severity Reaction Status Date / Time No Known Allergies Allergy Unverified 10/13/13 13:21 Home Medications Medication Instructions Recorded Confirmed Last Taken Type Folic Acid [Folvite] 1 mg PO QDAY 10/13/13 09/18/16 09/18/16 History oxyCODONE /ACETAMINOPHEN [Percocet 1 tab PO Q6HR PRN #10 tablet 10/13/1309/18/16 Rx 5/325 mg] Promethazine [Phenergan] 25 mg PO Q6H PRN 08/16/14 09/18/16 09/18/16 History valACYclovir [Valtrex] 500 mg PO DAILY 08/16/14 09/18/16 09/18/16 History Active Meds: Active Medications Acetaminophen (Tylenol) 650 mg PO Q4H PRN PRN Reason: Pain MILD(1-3)/Fever >100.5/PALACIOS Last Admin: 10/07/16 18:13 Dose: 650 mg Albuterol/Ipratropium (Duoneb 0.5 Mg-3 Mg/3 Ml Soln) 1 ampul IH Q6HRT [facility] Last Admin: 10/15/16 20:15 Dose: 1 ampul Lipase/Protease/Amylase (Fritz Mayers 10,500 Unit) 1 each FEEDTUBE PRN PRN PRN Reason: For Clogged Feeding Tube Arformoterol Tartrate (Brovana Nebu) 15 mcg IH Q12HRT [facility] Last Admin: 10/15/16 20:15 Dose: Not Given Aspirin (Aspirin) 325 mg PO QDAY [facility] Last Admin: 10/15/16 11:27 Dose: 325 mg Budesonide (Pulmicort) 0.5 mg IH Q12HRT [facility] Last Admin: 10/15/16 20:15 Dose: 0.5 mg Diphenhydramine HCl (Benadryl) 12.5 mg IV Q4H PRN PRN Reason: Itching Last Admin: 09/30/16 07:02 Dose: 12.5 mg Enoxaparin Sodium (Lovenox) 40 mg SUB-Q QDAY [facility] Last Admin: 10/15/16 11:28 Dose: 40 mg Famotidine (Pepcid) 20 mg PO BID [facility] Last Admin: 10/15/16 22:29 Dose: 20 mg Folic Acid (Folvite) 1 mg PO QDAY [facility] Last Admin: 10/15/16 11:27 Dose: 1 mg Furosemide (Lasix) 20 mg IV DAILY [facility] Last Admin: 10/15/16 11:28 Dose: 20 mg Hydrophilic Ointment (Vaseline Lip Therapy) 1 applic TP Q2HR PRN PRN Reason: Dry Lips Fentanyl Citrate (Fentanyl Drip Premix) 2,000 mcg in 100 mls @ 4.649 mls/hr IV TITR SADAF; 1 MCG/KG/HR PRN Reason: Protocol Last Admin: 10/15/16 21:50 Dose: 2 mcg/kg/hr, 9.299 mls/hr Midazolam HCl 100 mg/ Sodium (Chloride) 100 mls @ 2 mls/hr IV TITR SADAF; 2 MG/HR PRN Reason: Protocol Last Admin: 10/04/16 12:54 Dose: 2 mg/hr, 2 mls/hr Dextrose (D5w) 1,000 mls @ 50 mls/hr IV DIRECT SADAF Last Admin: 10/15/16 09:00 Dose: 50 mls/hr Propofol (Diprivan 10 Mg/Ml) 1,000 mg in 100 mls @ 3.045 mls/hr IV TITR SADAF; 5 MCG/KG/MIN PRN Reason: Protocol Last Admin: 10/15/16 06:00 Dose: 10 mcg/kg/min, 6.09 mls/hr Insulin Human Regular (Novolin R) 0 units SUB-Q Q6HR [facility] PRN Reason: Protocol Last Admin: 10/15/16 18:52 Dose: 2 units Linezolid (Zyvox) 600 mg PO Q12HR SADAF PRN Reason: Protocol Last Admin: 10/15/16 22:37 Dose: 600 mg Methylprednisolone Sodium Succinate (Solu-Medrol) 125 mg IV Q6H [facility] Last Admin: 10/15/16 22:35 Dose: 125 mg Multi-Ingred Cream/Lotion/Oil/Oint (Artificial Tears Ophth Oint) 1 applic OU Q4HR PRN PRN Reason: Dry Eye(s) Multivitamins (Theragran Tab) 1 each PO QDAY [facility] Last Admin: 10/15/16 11:28 Dose: 1 each Ondansetron HCl (Zofran) 4 mg IV Q8H PRN PRN Reason: Nausea And Vomiting Last Admin: 09/29/16 23:07 Dose: 4 mg Potassium Phos/Sodium Phos (Phos-Nak) 1 each FEEDTUBE Q8HR [facility] Last Admin: 10/15/16 22:29 Dose: 1 each Promethazine HCl (Phenergan) 25 mg SC Q6H PRN PRN Reason: Nausea And Vomiting Last Admin: 09/25/16 22:05 Dose: 25 mg Senna (Senokot) 17.2 mg PO DAILY [facility] Last Admin: 10/15/16 11:28 Dose: 17.2 mg Simple Syrup (Simple Syrup) 15 ml FEEDTUBE PRN PRN PRN Reason: Hypoglycemia Simple Syrup (Simple Syrup) 30 ml FEEDTUBE PRN PRN PRN Reason: Hypoglycemia Sodium Bicarbonate (Sodium Bicarbonate) 325 mg FEEDTUBE PRN PRN PRN Reason: For Clogged Feeding Tube Sodium Chloride (Sodium Chloride Flush Syringe 10 Ml) 10 ml IV PRN PRN PRN Reason: LINE FLUSH Tramadol HCl (Ultram) 50 mg PO Q4H PRN PRN Reason: Pain, Moderate (4-6) Last Admin: 10/06/16 21:54 Dose: 50 mg Valacyclovir HCl (Valtrex) 500 mg PO DAILY [facility] Last Admin: 10/15/16 11:27 Dose: 500 mg Zolpidem Tartrate (Ambien) 5 mg PO QHS PRN PRN Reason: Sleep Review of Systems Constitutional: other (on the vent.) Exam - Constitutional Vitals: Temp Pulse Resp BP Pulse Ox 100.1 F H 105 H 22 111/57 87 10/15/16 20:00 10/15/16 20:00 10/15/16 18:30 10/15/16 20:00 10/15/16 20:00 General appearance: Present: severe distress - EENT Eyes: Present: PERRL ENT: hearing intact - Neck Neck: Present: supple, normal ROM - Respiratory Respiratory: bilateral: other (on the vent.) - Cardiovascular Heart Sounds: Present: S1 & S2. Absent: rub, click - Extremities Extremities: pulses symmetrical, No edema Peripheral Pulses: within normal limits - Abdominal General gastrointestinal: Present: soft, non-tender, non-distended, normal bowel sounds Female genitourinary: Present: deferred - Rectal Rectal Exam: deferred - Integumentary Integumentary: Present: clear, warm, dry Results - Labs CBC & Chem 7: 10/15/16 05:10 10/15/16 05:10 Labs: Abnormal lab results 10/14/16 10/15/16 10/15/16 Range/Units 23:31 05:10 05:10 WBC 23.9 H (4.5-11.0) K/mm3 RBC 3.33 L (3.65-5.03) M/mm3 Hgb 9.5 L (10.1-14.3) gm/dl Hct 29.7 L (30.3-42.9) % RDW 16.8 H (13.2-15.2) % Nucleated RBC % 4.0 H (0.0-0.9) % Seg Neutrophils # Man 15.3 H (1.8-7.7) K/mm3 Monocytes # (Manual) 1.7 H (0.0-0.8) K/mm3 Eosinophils # (Manual) 0.5 H (0.0-0.4) K/mm3 POC ABG pCO2 (35-45) Potassium 3.5 L (3.6-5.0) mmol/L Carbon Dioxide 33 H (22-30) mmol/L BUN 61 H (7-17) mg/dL Glucose 127 H (65-100) mg/dL POC Glucose 201 H (70-105) Calcium 8.2 L (8.4-10.2) mg/dL Phosphorus 4.90 H D (2.5-4.5) mg/dL Magnesium (1.7-2.3) mg/dL 10/15/16 10/15/16 10/15/16 Range/Units 05:10 05:40 06:17 WBC (4.5-11.0) K/mm3 RBC (3.65-5.03) M/mm3 Hgb (10.1-14.3) gm/dl Hct (30.3-42.9) % RDW (13.2-15.2) % Nucleated RBC % (0.0-0.9) % Seg Neutrophils # Man (1.8-7.7) K/mm3 Monocytes # (Manual) (0.0-0.8) K/mm3 Eosinophils # (Manual) (0.0-0.4) K/mm3 POC ABG pCO2 65.2 H (35-45) Potassium (3.6-5.0) mmol/L Carbon Dioxide (22-30) mmol/L BUN (7-17) mg/dL Glucose (65-100) mg/dL POC Glucose 145 H (70-105) Calcium (8.4-10.2) mg/dL Phosphorus (2.5-4.5) mg/dL Magnesium 2.90 H (1.7-2.3) mg/dL 10/15/16 10/15/16 Range/Units 11:09 17:50 WBC (4.5-11.0) K/mm3 RBC (3.65-5.03) M/mm3 Hgb (10.1-14.3) gm/dl Hct (30.3-42.9) % RDW (13.2-15.2) % Nucleated RBC % (0.0-0.9) % Seg Neutrophils # Man (1.8-7.7) K/mm3 Monocytes # (Manual) (0.0-0.8) K/mm3 Eosinophils # (Manual) (0.0-0.4) K/mm3 POC ABG pCO2 (35-45) Potassium (3.6-5.0) mmol/L Carbon Dioxide (22-30) mmol/L BUN (7-17) mg/dL Glucose (65-100) mg/dL POC Glucose 169 H 210 H (70-105) Calcium (8.4-10.2) mg/dL Phosphorus (2.5-4.5) mg/dL Magnesium (1.7-2.3) mg/dL Assessment and Plan - Patient Problems (1) Sepsis Current Visit: Yes Status: Acute Qualifiers: Sepsis type: sepsis due to unspecified organism Qualified Code(s): A41.9 - Sepsis, unspecified organism Plan to address problem: SEE w/up in the notes. No improvement so far. worsening sepsis. Slight improvement (2) Sleep apnea syndrome Current Visit: Yes Status: Acute Qualifiers: Sleep apnea type: S Plan to address problem: oxygen/BIPAP management. Patient now in full resp failure, and on the vent. (3) UTI (urinary tract infection) Current Visit: Yes Status: Acute Qualifiers: Urinary tract infection type: U Hematuria presence: H Indwelling urinary catheter type: I Encounter type: E Plan to address problem: patient already on abx iv. may need culture sent. culture no growth. (4) Anemia Current Visit: Yes Status: Acute Qualifiers: Anemia type: A Iron deficiency anemia type: I Vitamin B12 deficiency anemia type: V Folate deficiency anemia type: F Bone marrow failure anemia type: B Hemolytic anemia type: H Other causes of anemia: O Plan to address problem: will transfuse if hgb 7.5 or less. no new issues at this time. May transfuse if further drop. (5) Leukocytosis Current Visit: Yes Status: Acute Qualifiers: Leukocytosis type: L Plan to address problem: will order flow, and try leukophoresis. instead, exchange transfusion is done today. improving.
[2016-10-16] MEDS: DUONEB 0.5 MG-3 MG/3 ML SOLN IH SCH ×4 (03:33→19:51)
[2016-10-16] MEDS: PHOS-NAK FEEDTUBE SCH (05:30)
[2016-10-16] MEDS: D5W 1,000 ML IV SCH (05:30)
[2016-10-16] MEDS: BROVANA NEBU IH SCH ×2 (08:40→19:51)
[2016-10-16] MEDS: PULMICORT IH SCH ×2 (08:40→19:51)
[2016-10-16 09:28] LABS: ISTAT Base Excess 13; ISTAT HCO3 37.3; ISTAT PCO2 56.8 (35-45); ISTAT PH 7.426 (7.35-7.45); ISTAT PO2 50 (80-105); ISTAT SO2 84; ISTAT TCO2 39
--- NOTE | 2016-10-16 09:51 | Progress Note ---
Assessment and Plan - Patient Problems (1) Acute respiratory failure with hypoxia Current Visit: Yes Status: Acute Plan to address problem: - changed back to AC mode - continue lung protective strategies (reduced TV to 400mls) - allow permissive hypercapnia - continue bronchodilators and pulmonary toilet - continue aspiration precautions / VAP bundles - continue to wean oxygen for sats > 90-92% at this point - prn ABG's - keep well sedated at this point with daily sedation vacations - will stop diuretics - s/p exchange blood transfusion - bronchoscopy consistent with Diffuse alveolar hemorhage - continue high dose steroids - continue to cover for MRSA with zyvox re: high SHEILA on vancomycin sensitivities (Discussed with ID) (2) ARDS (adult respiratory distress syndrome) Current Visit: Yes Status: Acute Plan to address problem: - 2D ECHO reports normal EF without impaired relaxation - non cardiogenic pulmonary edema - etiology unclear - treating empirically as HCAP - as above otherwise - follow CHELY level (3) Obesity Current Visit: Yes Status: Acute Qualifiers: Obesity type: O Obesity severity: O Plan to address problem: - weight loss counselled earlier - outpatient sleep clinic evaluation at discharge (4) Sepsis syndrome Current Visit: Yes Status: Acute Plan to address problem: - continue anti-infectives per ID recs - trend CRP / lactate prn (5) Anemia Current Visit: Yes Status: Acute Qualifiers: Anemia type: A Iron deficiency anemia type: I Vitamin B12 deficiency anemia type: V Folate deficiency anemia type: F Bone marrow failure anemia type: B Hemolytic anemia type: H Other causes of anemia: O Plan to address problem: - multifactorial - suspect ABLA component - h/o sickle cell - prn PRBC transfusions - hematology following - s/p exchange blood transfusion (6) CARLYN (acute kidney injury) Current Visit: Yes Status: Acute Plan to address problem: - non oliguric - per nephrology recommendations - stopped diuretics today (7) Discharge planning issues Current Visit: Yes Status: Acute Plan to address problem: - hopefully continues to improve and can transfer to LTAC once Peep </= 10 and FiO2 < 60% .....she remains critically ill on life sustaining interventions including MVS and remains at risk for further deterioration including 32' CCT Subjective Date of service: 10/16/16 Principal diagnosis: Acute Hypoxemic Respiratory Failure; ARDS Interval history: Seen and examined at bedside; 24 hour events reviewed; nursing and respiratory care staff consulted; no adverse overnight events reported to me; remains on MVS ; remains hypoxemic and we have had to increase FiO2 to 60%; she denies any acute uncontrolled pain; continues to tolerate tube feeds Objective Vital Signs - 12hr 10/15/16 10/15/16 10/15/16 22:00 22:15 22:30 Temperature Pulse Rate 104 H 104 H 101 H Pulse Rate [ Anterior Bilateral Throughout] Respiratory 26 H 26 H 22 Rate Respiratory Rate [Anterior Bilateral Throughout] Blood Pressure 102/57 106/56 112/65 O2 Sat by Pulse 88 88 94 Oximetry 10/15/16 10/15/16 10/15/16 22:45 23:00 23:15 Temperature Pulse Rate 101 H 98 H 100 H Pulse Rate [ Anterior Bilateral Throughout] Respiratory 24 24 22 Rate Respiratory Rate [Anterior Bilateral Throughout] Blood Pressure 117/63 99/56 95/48 O2 Sat by Pulse 97 96 Oximetry 10/15/16 10/15/16 10/16/16 23:30 23:45 00:00 Temperature 99.8 F H Pulse Rate 94 H 97 H 96 H Pulse Rate [ Anterior Bilateral Throughout] Respiratory 28 H 15 17 Rate Respiratory Rate [Anterior Bilateral Throughout] Blood Pressure 99/45 116/66 111/62 O2 Sat by Pulse 98 97 95 Oximetry 10/16/16 10/16/16 10/16/16 00:15 00:30 00:35 Temperature Pulse Rate 95 H 94 H 95 H Pulse Rate [ Anterior Bilateral Throughout] Respiratory 17 14 Rate Respiratory Rate [Anterior Bilateral Throughout] Blood Pressure 107/62 109/59 91/45 O2 Sat by Pulse 95 94 95 Oximetry 10/16/16 10/16/16 10/16/16 00:45 01:00 01:15 Temperature Pulse Rate 97 H 98 H 95 H Pulse Rate [ Anterior Bilateral Throughout] Respiratory 26 H 16 13 Rate Respiratory Rate [Anterior Bilateral Throughout] Blood Pressure 116/55 122/64 111/59 O2 Sat by Pulse 94 95 96 Oximetry 10/16/16 10/16/16 10/16/16 01:30 01:45 02:00 Temperature Pulse Rate 96 H 93 H 91 H Pulse Rate [ Anterior Bilateral Throughout] Respiratory 17 17 14 Rate Respiratory Rate [Anterior Bilateral Throughout] Blood Pressure 108/53 91/45 117/59 O2 Sat by Pulse 92 95 88 Oximetry 10/16/16 10/16/16 10/16/16 02:15 02:30 02:45 Temperature Pulse Rate 92 H 95 H 95 H Pulse Rate [ Anterior Bilateral Throughout] Respiratory 25 H 29 H 26 H Rate Respiratory Rate [Anterior Bilateral Throughout] Blood Pressure 128/71 126/76 127/78 O2 Sat by Pulse 91 90 89 Oximetry 10/16/16 10/16/16 10/16/16 03:00 03:20 03:31 Temperature Pulse Rate 96 H Pulse Rate [ 111 H 98 H Anterior Bilateral Throughout] Respiratory 30 H Rate Respiratory 28 H 31 H Rate [Anterior Bilateral Throughout] Blood Pressure 130/71 O2 Sat by Pulse 91 Oximetry 10/16/16 10/16/16 10/16/16 04:52 08:00 08:11 Temperature 98.9 F Pulse Rate 101 H 107 H Pulse Rate [ Anterior Bilateral Throughout] Respiratory Rate Respiratory Rate [Anterior Bilateral Throughout] Blood Pressure 116/63 120/62 O2 Sat by Pulse 91 93 Oximetry 10/16/16 08:44 Temperature Pulse Rate Pulse Rate [ 102 H Anterior Bilateral Throughout] Respiratory Rate Respiratory 36 H Rate [Anterior Bilateral Throughout] Blood Pressure O2 Sat by Pulse Oximetry Constitutional: no acute distress, other (sedated) Eyes: non-icteric ENT: oropharynx moist Neck: supple, no lymphadenopathy Effort: mildly labored Ascultation: Bilateral: diminished breath sounds, rales Cardiovascular: regular rate and rhythm Gastrointestinal: normoactive bowel sounds, soft, non-tender, non-distended Integumentary: normal Extremities: no cyanosis, no edema, pulses normal, no ischemia or petechiae Neurologic: normal mental status, non-focal exam, pupils equal and round, other (follows commands during sedation holidays) Psychiatric: other (sedated now) CBC and BMP: 10/18/16 05:11 10/18/16 05:11 ABG, PT/INR, D-dimer: ABG POC ABG pH 7.426 (7.35-7.45) 10/16/16 06:07 POC ABG pCO2 56.8 (35-45) H 10/16/16 06:07 POC ABG pO2 50 (80-105) L 10/16/16 06:07 POC ABG HCO3 37.3 10/16/16 06:07 POC ABG Total CO2 39 10/16/16 06:07 POC ABG O2 Sat 84 10/16/16 06:07 PT/INR, D-dimer PT 17.6 Sec. (12.2-14.9) H 10/10/16 13:03 INR 1.45 (0.87-1.13) H 10/10/16 13:03 D-Dimer 4758.12 ng/mlDDU (0-234) H 09/27/16 22:47 Abnormal lab findings: Abnormal Labs 09/20/16 09/20/16 09/20/16 10:35 10:35 10:35 WBC 11.7 H RBC Hgb Hct MCV 75 L MCH 24 L RDW 16.6 H Plt Count [place] # Baso # Seg Neutrophils % Seg Neuts % (Manual) Lymphocytes % (Manual) Monocytes % (Manual) Eosinophils % (Manual) Nucleated RBC % Seg Neutrophils # Seg Neutrophils # Man Abs Lymphs (Manual) Lymphocytes # (Manual) Monocytes # (Manual) Eosinophils # (Manual) Percent Retic PT INR 1.14 H D-Dimer POC ABG pH POC ABG pCO2 POC ABG pO2 Sodium Potassium Chloride Carbon Dioxide BUN Creatinine 0.5 L Glucose 115 H POC Glucose Lactic Acid Calcium Phosphorus Magnesium Ferritin Total Bilirubin 2.0 H Lactate Dehydrogenase Total Creatine Kinase CK-MB (CK-2) C-Reactive Protein NT-Pro-B Natriuret Pep Total Protein Albumin Triglycerides Urine WBC (Auto) Urine Creatinine Urine Total Protein Vancomycin Trough Random Vancomycin Absolute CD4 Count Absolute CD19 Count Crossmatch 09/26/16 09/26/16 09/27/16 04:26 04:26 10:26 WBC RBC Hgb 8.9 L Hct 28.0 L MCV MCH RDW Plt Count [place] # Baso # Seg Neutrophils % Seg Neuts % (Manual) Lymphocytes % (Manual) Monocytes % (Manual) Eosinophils % (Manual) Nucleated RBC % Seg Neutrophils # Seg Neutrophils # Man Abs Lymphs (Manual) Lymphocytes # (Manual) Monocytes # (Manual) Eosinophils # (Manual) Percent Retic PT INR D-Dimer POC ABG pH 7.283 L POC ABG pCO2 45.3 H POC ABG pO2 79 L Sodium Potassium Chloride Carbon Dioxide 20 L BUN Creatinine Glucose 129 H POC Glucose Lactic Acid Calcium 7.6 L Phosphorus Magnesium Ferritin Total Bilirubin Lactate Dehydrogenase Total Creatine Kinase CK-MB (CK-2) C-Reactive Protein NT-Pro-B Natriuret Pep Total Protein Albumin Triglycerides Urine WBC (Auto) Urine Creatinine Urine Total Protein Vancomycin Trough Random Vancomycin Absolute CD4 Count Absolute CD19 Count Crossmatch 09/27/16 09/27/16 09/27/16 14:40 14:40 15:14 WBC 39.3 H RBC Hgb 9.3 L Hct 28.9 L MCV 75 L MCH 24 L RDW 18.7 H Plt Count [place] # Baso # Seg Neutrophils % Seg Neuts % (Manual) 93.5 H Lymphocytes % (Manual) 5.0 L Monocytes % (Manual) Eosinophils % (Manual) Nucleated RBC % Seg Neutrophils # Seg Neutrophils # Man 36.7 H Abs Lymphs (Manual) Lymphocytes # (Manual) Monocytes # (Manual) Eosinophils # (Manual) Percent Retic PT INR D-Dimer POC ABG pH POC ABG pCO2 POC ABG pO2 Sodium Potassium Chloride Carbon Dioxide BUN Creatinine Glucose POC Glucose Lactic Acid 2.9 H* Calcium Phosphorus Magnesium Ferritin Total Bilirubin Lactate Dehydrogenase Total Creatine Kinase 3575 H CK-MB (CK-2) 11.0 H C-Reactive Protein 16.10 H NT-Pro-B Natriuret Pep Total Protein Albumin Triglycerides Urine WBC (Auto) Urine Creatinine Urine Total Protein Vancomycin Trough Random Vancomycin Absolute CD4 Count Absolute CD19 Count Crossmatch 09/27/16 09/27/16 09/27/16 18:05 22:47 22:47 WBC RBC Hgb Hct MCV MCH RDW Plt Count [place] # Baso # Seg Neutrophils % Seg Neuts % (Manual) Lymphocytes % (Manual) Monocytes % (Manual) Eosinophils % (Manual) Nucleated RBC % Seg Neutrophils # Seg Neutrophils # Man Abs Lymphs (Manual) Lymphocytes # (Manual) Monocytes # (Manual) Eosinophils # (Manual) Percent Retic PT INR D-Dimer 4758.12 H POC ABG pH POC ABG pCO2 POC ABG pO2 70 L Sodium Potassium Chloride Carbon Dioxide BUN Creatinine Glucose POC Glucose Lactic Acid Calcium Phosphorus Magnesium Ferritin Total Bilirubin Lactate Dehydrogenase 829 H Total Creatine Kinase CK-MB (CK-2) C-Reactive Protein NT-Pro-B Natriuret Pep Total Protein Albumin Triglycerides Urine WBC (Auto) Urine Creatinine Urine Total Protein Vancomycin Trough Random Vancomycin Absolute CD4 Count Absolute CD19 Count Crossmatch 09/27/16 09/28/16 09/28/16 22:47 09:20 10:47 WBC RBC Hgb Hct MCV MCH RDW Plt Count [place] # Baso # Seg Neutrophils % Seg Neuts % (Manual) Lymphocytes % (Manual) Monocytes % (Manual) Eosinophils % (Manual) Nucleated RBC % Seg Neutrophils # Seg Neutrophils # Man Abs Lymphs (Manual) Lymphocytes # (Manual) Monocytes # (Manual) Eosinophils # (Manual) Percent Retic 8.11 H PT INR D-Dimer POC ABG pH POC ABG pCO2 47.2 H POC ABG pO2 70 L Sodium Potassium Chloride Carbon Dioxide BUN Creatinine 0.6 L Glucose 137 H POC Glucose Lactic Acid Calcium Phosphorus Magnesium Ferritin Total Bilirubin Lactate Dehydrogenase Total Creatine Kinase CK-MB (CK-2) C-Reactive Protein NT-Pro-B Natriuret Pep Total Protein Albumin Triglycerides Urine WBC (Auto) Urine Creatinine Urine Total Protein Vancomycin Trough Random Vancomycin Absolute CD4 Count Absolute CD19 Count Crossmatch 09/28/16 09/30/16 09/30/16 10:47 11:01 14:05 WBC 30.3 H RBC 3.27 L Hgb 8.1 L Hct 24.4 L MCV 75 L MCH 25 L RDW 18.9 H Plt Count [place] # Baso # Seg Neutrophils % Seg Neuts % (Manual) Lymphocytes % (Manual) 12.0 L Monocytes % (Manual) Eosinophils % (Manual) Nucleated RBC % 5.0 H Seg Neutrophils # Seg Neutrophils # Man 21.2 H Abs Lymphs (Manual) Lymphocytes # (Manual) Monocytes # (Manual) 1.8 H Eosinophils # (Manual) Percent Retic PT INR D-Dimer POC ABG pH POC ABG pCO2 48.8 H POC ABG pO2 52 L Sodium Potassium Chloride Carbon Dioxide BUN Creatinine Glucose POC Glucose Lactic Acid Calcium Phosphorus Magnesium Ferritin Total Bilirubin Lactate Dehydrogenase Total Creatine Kinase CK-MB (CK-2) C-Reactive Protein NT-Pro-B Natriuret Pep 2018 H Total Protein Albumin Triglycerides Urine WBC (Auto) Urine Creatinine Urine Total Protein Vancomycin Trough Random Vancomycin Absolute CD4 Count Absolute CD19 Count Crossmatch 09/30/16 09/30/16 09/30/16 14:05 14:05 14:05 WBC 22.1 H RBC 2.76 L Hgb 6.9 L Hct 20.6 L MCV 75 L MCH 25 L RDW 18.7 H Plt Count [place] # Baso # Seg Neutrophils % Seg Neuts % (Manual) 74.0 H Lymphocytes % (Manual) 7.0 L Monocytes % (Manual) Eosinophils % (Manual) Nucleated RBC % 52.0 H Seg Neutrophils # Seg Neutrophils # Man 16.4 H Abs Lymphs (Manual) Lymphocytes # (Manual) Monocytes # (Manual) Eosinophils # (Manual) Percent Retic PT INR D-Dimer POC ABG pH POC ABG pCO2 POC ABG pO2 Sodium Potassium 3.1 L Chloride Carbon Dioxide BUN Creatinine 0.5 L Glucose 116 H POC Glucose Lactic Acid Calcium 8.2 L Phosphorus Magnesium Ferritin Total Bilirubin Lactate Dehydrogenase Total Creatine Kinase CK-MB (CK-2) C-Reactive Protein 30.80 H NT-Pro-B Natriuret Pep Total Protein Albumin Triglycerides Urine WBC (Auto) Urine Creatinine Urine Total Protein Vancomycin Trough Random Vancomycin Absolute CD4 Count Absolute CD19 Count Crossmatch 09/30/16 10/01/16 10/01/16 14:33 00:55 00:55 WBC 26.1 H RBC 2.80 L Hgb 6.8 L Hct 20.8 L MCV 74 L MCH 24 L RDW 18.6 H Plt Count [place] # Baso # Seg Neutrophils % Seg Neuts % (Manual) 85.0 H Lymphocytes % (Manual) 11.0 L Monocytes % (Manual) Eosinophils % (Manual) Nucleated RBC % 21.0 H Seg Neutrophils # Seg Neutrophils # Man 22.2 H Abs Lymphs (Manual) Lymphocytes # (Manual) Monocytes # (Manual) 1.0 H Eosinophils # (Manual) Percent Retic PT INR D-Dimer POC ABG pH POC ABG pCO2 47.8 H POC ABG pO2 201 H Sodium Potassium Chloride Carbon Dioxide BUN Creatinine Glucose POC Glucose Lactic Acid Calcium Phosphorus Magnesium Ferritin Total Bilirubin Lactate Dehydrogenase Total Creatine Kinase CK-MB (CK-2) C-Reactive Protein NT-Pro-B Natriuret Pep Total Protein Albumin Triglycerides Urine WBC (Auto) Urine Creatinine Urine Total Protein Vancomycin Trough Random Vancomycin Absolute CD4 Count Absolute CD19 Count Crossmatch See Detail 10/01/16 10/01/16 10/01/16 04:57 05:00 13:01 WBC RBC Hgb Hct MCV MCH RDW Plt Count [place] # Baso # Seg Neutrophils % Seg Neuts % (Manual) Lymphocytes % (Manual) Monocytes % (Manual) Eosinophils % (Manual) Nucleated RBC % Seg Neutrophils # Seg Neutrophils # Man Abs Lymphs (Manual) Lymphocytes # (Manual) Monocytes # (Manual) Eosinophils # (Manual) Percent Retic PT INR D-Dimer POC ABG pH POC ABG pCO2 58.5 H POC ABG pO2 149 H Sodium 149 H Potassium 3.0 L Chloride Carbon Dioxide BUN Creatinine Glucose POC Glucose 120 H Lactic Acid Calcium 8.3 L Phosphorus Magnesium Ferritin Total Bilirubin Lactate Dehydrogenase Total Creatine Kinase CK-MB (CK-2) C-Reactive Protein NT-Pro-B Natriuret Pep Total Protein Albumin Triglycerides Urine WBC (Auto) Urine Creatinine Urine Total Protein Vancomycin Trough Random Vancomycin Absolute CD4 Count Absolute CD19 Count Crossmatch 10/01/16 10/01/16 10/01/16 15:43 17:44 23:37 WBC 27.6 H RBC 3.55 L Hgb 8.9 L Hct 27.6 L D MCV 78 L D MCH 25 L RDW 18.1 H Plt Count [place] # Baso # Seg Neutrophils % Seg Neuts % (Manual) 79.5 H Lymphocytes % (Manual) 8.0 L Monocytes % (Manual) Eosinophils % (Manual) Nucleated RBC % 65.0 H Seg Neutrophils # Seg Neutrophils # Man 21.9 H Abs Lymphs (Manual) Lymphocytes # (Manual) Monocytes # (Manual) 1.0 H Eosinophils # (Manual) Percent Retic PT INR D-Dimer POC ABG pH POC ABG pCO2 POC ABG pO2 Sodium Potassium Chloride Carbon Dioxide BUN Creatinine Glucose POC Glucose 121 H 129 H Lactic Acid Calcium Phosphorus Magnesium Ferritin Total Bilirubin Lactate Dehydrogenase Total Creatine Kinase CK-MB (CK-2) C-Reactive Protein NT-Pro-B Natriuret Pep Total Protein Albumin Triglycerides Urine WBC (Auto) Urine Creatinine Urine Total Protein Vancomycin Trough Random Vancomycin Absolute CD4 Count Absolute CD19 Count Crossmatch 10/02/16 10/02/16 10/02/16 05:05 05:40 06:00 WBC 23.0 H RBC 3.30 L Hgb 8.3 L Hct 25.8 L MCV 78 L MCH 25 L RDW 18.2 H Plt Count [place] # Baso # Seg Neutrophils % Seg Neuts % (Manual) 83.5 H Lymphocytes % (Manual) 4.0 L Monocytes % (Manual) Eosinophils % (Manual) Nucleated RBC % 14.5 H Seg Neutrophils # Seg Neutrophils # Man 25.1 H Abs Lymphs (Manual) Lymphocytes # (Manual) Monocytes # (Manual) 1.7 H Eosinophils # (Manual) Percent Retic PT INR D-Dimer POC ABG pH POC ABG pCO2 50.5 H POC ABG pO2 Sodium Potassium Chloride Carbon Dioxide BUN Creatinine Glucose POC Glucose 123 H Lactic Acid Calcium Phosphorus Magnesium Ferritin Total Bilirubin Lactate Dehydrogenase Total Creatine Kinase CK-MB (CK-2) C-Reactive Protein NT-Pro-B Natriuret Pep Total Protein Albumin Triglycerides Urine WBC (Auto) Urine Creatinine Urine Total Protein Vancomycin Trough Random Vancomycin Absolute CD4 Count Absolute CD19 Count Crossmatch 10/02/16 10/02/16 10/02/16 06:00 11:42 21:52 WBC RBC Hgb Hct MCV MCH RDW Plt Count [place] # Baso # Seg Neutrophils % Seg Neuts % (Manual) Lymphocytes % (Manual) Monocytes % (Manual) Eosinophils % (Manual) Nucleated RBC % Seg Neutrophils # Seg Neutrophils # Man Abs Lymphs (Manual) Lymphocytes # (Manual) Monocytes # (Manual) Eosinophils # (Manual) Percent Retic PT INR D-Dimer POC ABG pH 7.324 L POC ABG pCO2 60.5 H POC ABG pO2 74 L Sodium 150 H Potassium Chloride 108.3 H Carbon Dioxide BUN 20 H Creatinine 1.4 H D Glucose 117 H POC Glucose 135 H Lactic Acid Calcium Phosphorus Magnesium Ferritin Total Bilirubin Lactate Dehydrogenase Total Creatine Kinase CK-MB (CK-2) C-Reactive Protein NT-Pro-B Natriuret Pep Total Protein Albumin Triglycerides Urine WBC (Auto) Urine Creatinine Urine Total Protein Vancomycin Trough Random Vancomycin Absolute CD4 Count Absolute CD19 Count Crossmatch 10/02/16 10/03/16 10/03/16 23:26 05:55 08:17 WBC 32.0 H RBC 3.13 L Hgb 7.9 L Hct 24.6 L MCV MCH 25 L RDW 18.9 H Plt Count 132 L [place] # Baso # Seg Neutrophils % Seg Neuts % (Manual) 75.0 H Lymphocytes % (Manual) 5.0 L Monocytes % (Manual) Eosinophils % (Manual) Nucleated RBC % 26.0 H Seg Neutrophils # Seg Neutrophils # Man 24.0 H Abs Lymphs (Manual) Lymphocytes # (Manual) Monocytes # (Manual) 1.0 H Eosinophils # (Manual) 1.0 H Percent Retic PT INR D-Dimer POC ABG pH POC ABG pCO2 POC ABG pO2 Sodium Potassium Chloride Carbon Dioxide BUN Creatinine Glucose POC Glucose 121 H 145 H Lactic Acid Calcium Phosphorus Magnesium Ferritin Total Bilirubin Lactate Dehydrogenase Total Creatine Kinase CK-MB (CK-2) C-Reactive Protein NT-Pro-B Natriuret Pep Total Protein Albumin Triglycerides Urine WBC (Auto) Urine Creatinine Urine Total Protein Vancomycin Trough Random Vancomycin Absolute CD4 Count Absolute CD19 Count Crossmatch 10/03/16 10/03/16 10/03/16 08:17 09:26 11:34 WBC RBC Hgb Hct MCV MCH RDW Plt Count [place] # Baso # Seg Neutrophils % Seg Neuts % (Manual) Lymphocytes % (Manual) Monocytes % (Manual) Eosinophils % (Manual) Nucleated RBC % Seg Neutrophils # Seg Neutrophils # Man Abs Lymphs (Manual) Lymphocytes # (Manual) Monocytes # (Manual) Eosinophils # (Manual) Percent Retic PT INR D-Dimer POC ABG pH 7.274 L POC ABG pCO2 59.7 H POC ABG pO2 58 L Sodium 147 H Potassium Chloride 107.6 H Carbon Dioxide BUN 31 H Creatinine 1.7 H Glucose 118 H POC Glucose 142 H Lactic Acid Calcium Phosphorus Magnesium Ferritin Total Bilirubin Lactate Dehydrogenase Total Creatine Kinase CK-MB (CK-2) C-Reactive Protein NT-Pro-B Natriuret Pep Total Protein Albumin Triglycerides Urine WBC (Auto) Urine Creatinine Urine Total Protein Vancomycin Trough Random Vancomycin Absolute CD4 Count Absolute CD19 Count Crossmatch 10/03/16 10/03/16 10/03/16 15:54 15:54 16:58 WBC RBC Hgb Hct MCV MCH RDW Plt Count [place] # Baso # Seg Neutrophils % Seg Neuts % (Manual) Lymphocytes % (Manual) Monocytes % (Manual) Eosinophils % (Manual) Nucleated RBC % Seg Neutrophils # Seg Neutrophils # Man Abs Lymphs (Manual) Lymphocytes # (Manual) Monocytes # (Manual) Eosinophils # (Manual) Percent Retic PT INR D-Dimer POC ABG pH POC ABG pCO2 POC ABG pO2 Sodium Potassium Chloride Carbon Dioxide BUN Creatinine Glucose POC Glucose 138 H Lactic Acid Calcium Phosphorus Magnesium Ferritin Total Bilirubin Lactate Dehydrogenase Total Creatine Kinase CK-MB (CK-2) C-Reactive Protein NT-Pro-B Natriuret Pep Total Protein Albumin Triglycerides Urine WBC (Auto) 21.0 H Urine Creatinine 63.2 H Urine Total Protein 67 H Vancomycin Trough Random Vancomycin Absolute CD4 Count Absolute CD19 Count Crossmatch 10/03/16 10/03/16 10/04/16 21:37 23:44 04:00 WBC 30.3 H RBC 2.86 L Hgb 7.3 L Hct 22.6 L MCV MCH 25 L RDW 19.6 H Plt Count 125 L [place] # Baso # Seg Neutrophils % Seg Neuts % (Manual) Lymphocytes % (Manual) 12.0 L Monocytes % (Manual) Eosinophils % (Manual) 5.0 H Nucleated RBC % 30.0 H Seg Neutrophils # Seg Neutrophils # Man 12.7 H Abs Lymphs (Manual) Lymphocytes # (Manual) Monocytes # (Manual) 1.2 H Eosinophils # (Manual) 1.5 H Percent Retic PT INR D-Dimer POC ABG pH 7.271 L POC ABG pCO2 61.7 H POC ABG pO2 77 L Sodium Potassium Chloride Carbon Dioxide BUN Creatinine Glucose POC Glucose 130 H Lactic Acid Calcium Phosphorus Magnesium Ferritin Total Bilirubin Lactate Dehydrogenase Total Creatine Kinase CK-MB (CK-2) C-Reactive Protein NT-Pro-B Natriuret Pep Total Protein Albumin Triglycerides Urine WBC (Auto) Urine Creatinine Urine Total Protein Vancomycin Trough Random Vancomycin Absolute CD4 Count Absolute CD19 Count Crossmatch 10/04/16 10/04/16 10/04/16 04:03 06:02 12:29 WBC RBC Hgb Hct MCV MCH RDW Plt Count [place] # Baso # Seg Neutrophils % Seg Neuts % (Manual) Lymphocytes % (Manual) Monocytes % (Manual) Eosinophils % (Manual) Nucleated RBC % Seg Neutrophils # Seg Neutrophils # Man Abs Lymphs (Manual) Lymphocytes # (Manual) Monocytes # (Manual) Eosinophils # (Manual) Percent Retic PT INR D-Dimer POC ABG pH 7.248 L POC ABG pCO2 62.3 H POC ABG pO2 59 L Sodium Potassium Chloride Carbon Dioxide BUN 40 H Creatinine 1.7 H Glucose 110 H POC Glucose 123 H Lactic Acid Calcium Phosphorus Magnesium Ferritin Total Bilirubin Lactate Dehydrogenase Total Creatine Kinase CK-MB (CK-2) C-Reactive Protein NT-Pro-B Natriuret Pep Total Protein 5.6 L Albumin 2.1 L Triglycerides Urine WBC (Auto) Urine Creatinine Urine Total Protein Vancomycin Trough Random Vancomycin Absolute CD4 Count Absolute CD19 Count Crossmatch 10/04/16 10/04/16 10/04/16 12:39 15:14 17:45 WBC RBC Hgb Hct MCV MCH RDW Plt Count [place] # Baso # Seg Neutrophils % Seg Neuts % (Manual) Lymphocytes % (Manual) Monocytes % (Manual) Eosinophils % (Manual) Nucleated RBC % Seg Neutrophils # Seg Neutrophils # Man Abs Lymphs (Manual) Lymphocytes # (Manual) Monocytes # (Manual) Eosinophils # (Manual) Percent Retic PT INR D-Dimer POC ABG pH POC ABG pCO2 POC ABG pO2 109 H Sodium Potassium Chloride Carbon Dioxide BUN Creatinine Glucose POC Glucose 124 H Lactic Acid Calcium Phosphorus Magnesium Ferritin Total Bilirubin Lactate Dehydrogenase Total Creatine Kinase CK-MB (CK-2) C-Reactive Protein NT-Pro-B Natriuret Pep Total Protein Albumin Triglycerides Urine WBC (Auto) Urine Creatinine Urine Total Protein Vancomycin Trough 45.5 H Random Vancomycin Absolute CD4 Count Absolute CD19 Count Crossmatch 10/04/16 10/04/16 10/05/16 20:13 23:05 01:27 WBC 36.1 H RBC 2.99 L Hgb 7.3 L Hct 23.5 L MCV MCH 25 L RDW 19.6 H Plt Count [place] # Baso # Seg Neutrophils % Seg Neuts % (Manual) Lymphocytes % (Manual) Monocytes % (Manual) Eosinophils % (Manual) Nucleated RBC % Seg Neutrophils # Seg Neutrophils # Man Abs Lymphs (Manual) Lymphocytes # (Manual) Monocytes # (Manual) Eosinophils # (Manual) Percent Retic PT INR D-Dimer POC ABG pH 7.341 L POC ABG pCO2 POC ABG pO2 47 L Sodium Potassium Chloride Carbon Dioxide BUN Creatinine Glucose POC Glucose 127 H Lactic Acid Calcium Phosphorus Magnesium Ferritin Total Bilirubin Lactate Dehydrogenase Total Creatine Kinase CK-MB (CK-2) C-Reactive Protein NT-Pro-B Natriuret Pep Total Protein Albumin Triglycerides Urine WBC (Auto) Urine Creatinine Urine Total Protein Vancomycin Trough Random Vancomycin Absolute CD4 Count Absolute CD19 Count Crossmatch 10/05/16 10/05/16 10/05/16 01:27 03:50 05:00 WBC RBC Hgb Hct MCV MCH RDW Plt Count [place] # Baso # Seg Neutrophils % Seg Neuts % (Manual) Lymphocytes % (Manual) Monocytes % (Manual) Eosinophils % (Manual) Nucleated RBC % Seg Neutrophils # Seg Neutrophils # Man Abs Lymphs (Manual) Lymphocytes # (Manual) Monocytes # (Manual) Eosinophils # (Manual) Percent Retic PT INR D-Dimer POC ABG pH 7.330 L POC ABG pCO2 45.3 H POC ABG pO2 53 L Sodium Potassium Chloride Carbon Dioxide BUN 49 H Creatinine 1.6 H Glucose 112 H POC Glucose Lactic Acid Calcium Phosphorus Magnesium Ferritin Total Bilirubin Lactate Dehydrogenase Total Creatine Kinase CK-MB (CK-2) C-Reactive Protein NT-Pro-B Natriuret Pep Total Protein Albumin Triglycerides Urine WBC (Auto) Urine Creatinine Urine Total Protein Vancomycin Trough Random Vancomycin 43.6 H Absolute CD4 Count Absolute CD19 Count Crossmatch 10/05/16 10/05/16 10/05/16 05:30 12:08 14:00 WBC RBC Hgb Hct MCV MCH RDW Plt Count [place] # Baso # Seg Neutrophils % Seg Neuts % (Manual) Lymphocytes % (Manual) Monocytes % (Manual) Eosinophils % (Manual) Nucleated RBC % Seg Neutrophils # Seg Neutrophils # Man Abs Lymphs (Manual) Lymphocytes # (Manual) Monocytes # (Manual) Eosinophils # (Manual) Percent Retic PT INR D-Dimer POC ABG pH POC ABG pCO2 POC ABG pO2 Sodium Potassium Chloride Carbon Dioxide BUN Creatinine Glucose POC Glucose 141 H 149 H Lactic Acid Calcium Phosphorus Magnesium Ferritin Total Bilirubin Lactate Dehydrogenase Total Creatine Kinase CK-MB (CK-2) C-Reactive Protein 28.40 H NT-Pro-B Natriuret Pep Total Protein Albumin Triglycerides Urine WBC (Auto) Urine Creatinine Urine Total Protein Vancomycin Trough Random Vancomycin Absolute CD4 Count Absolute CD19 Count Crossmatch 10/05/16 10/05/16 10/05/16 15:37 16:41 17:15 WBC RBC Hgb Hct MCV MCH RDW Plt Count [place] # Baso # Seg Neutrophils % Seg Neuts % (Manual) Lymphocytes % (Manual) Monocytes % (Manual) Eosinophils % (Manual) Nucleated RBC % Seg Neutrophils # Seg Neutrophils # Man Abs Lymphs (Manual) Lymphocytes # (Manual) Monocytes # (Manual) Eosinophils # (Manual) Percent Retic PT INR D-Dimer POC ABG pH 7.157 L 7.133 L POC ABG pCO2 75.0 H 80.5 H POC ABG pO2 76 L Sodium Potassium Chloride Carbon Dioxide BUN Creatinine Glucose POC Glucose 151 H Lactic Acid Calcium Phosphorus Magnesium Ferritin Total Bilirubin Lactate Dehydrogenase Total Creatine Kinase CK-MB (CK-2) C-Reactive Protein NT-Pro-B Natriuret Pep Total Protein Albumin Triglycerides Urine WBC (Auto) Urine Creatinine Urine Total Protein Vancomycin Trough Random Vancomycin Absolute CD4 Count Absolute CD19 Count Crossmatch 10/05/16 10/05/16 10/06/16 19:58 23:50 03:57 WBC 45.3 H* RBC 3.08 L Hgb 7.5 L Hct 24.5 L MCV MCH 25 L RDW 20.1 H Plt Count [place] # Baso # Seg Neutrophils % Seg Neuts % (Manual) 24.0 L Lymphocytes % (Manual) 10.0 L Monocytes % (Manual) Eosinophils % (Manual) Nucleated RBC % 36.0 H Seg Neutrophils # Seg Neutrophils # Man 10.9 H Abs Lymphs (Manual) Lymphocytes # (Manual) Monocytes # (Manual) 3.2 H Eosinophils # (Manual) 0.5 H Percent Retic PT INR D-Dimer POC ABG pH 7.198 L POC ABG pCO2 69.5 H POC ABG pO2 Sodium Potassium Chloride Carbon Dioxide BUN Creatinine Glucose POC Glucose 160 H Lactic Acid Calcium Phosphorus Magnesium Ferritin Total Bilirubin Lactate Dehydrogenase Total Creatine Kinase CK-MB (CK-2) C-Reactive Protein NT-Pro-B Natriuret Pep Total Protein Albumin Triglycerides Urine WBC (Auto) Urine Creatinine Urine Total Protein Vancomycin Trough Random Vancomycin Absolute CD4 Count Absolute CD19 Count Crossmatch 10/06/16 10/06/16 10/06/16 03:57 05:38 06:08 WBC RBC Hgb Hct MCV MCH RDW Plt Count [place] # Baso # Seg Neutrophils % Seg Neuts % (Manual) Lymphocytes % (Manual) Monocytes % (Manual) Eosinophils % (Manual) Nucleated RBC % Seg Neutrophils # Seg Neutrophils # Man Abs Lymphs (Manual) Lymphocytes # (Manual) Monocytes # (Manual) Eosinophils # (Manual) Percent Retic PT INR D-Dimer POC ABG pH 7.226 L POC ABG pCO2 63.3 H POC ABG pO2 Sodium 152 H D Potassium Chloride 114.1 H Carbon Dioxide BUN 58 H Creatinine 1.6 H Glucose 123 H POC Glucose 129 H Lactic Acid Calcium Phosphorus Magnesium Ferritin Total Bilirubin Lactate Dehydrogenase Total Creatine Kinase CK-MB (CK-2) C-Reactive Protein NT-Pro-B Natriuret Pep Total Protein Albumin Triglycerides Urine WBC (Auto) Urine Creatinine Urine Total Protein Vancomycin Trough Random Vancomycin Absolute CD4 Count Absolute CD19 Count Crossmatch 10/06/16 10/06/16 10/06/16 11:38 14:31 18:10 WBC RBC Hgb Hct MCV MCH RDW Plt Count [place] # Baso # Seg Neutrophils % Seg Neuts % (Manual) Lymphocytes % (Manual) Monocytes % (Manual) Eosinophils % (Manual) Nucleated RBC % Seg Neutrophils # Seg Neutrophils # Man Abs Lymphs (Manual) Lymphocytes # (Manual) Monocytes # (Manual) Eosinophils # (Manual) Percent Retic PT INR D-Dimer POC ABG pH 7.345 L POC ABG pCO2 49.5 H POC ABG pO2 60 L Sodium Potassium Chloride Carbon Dioxide BUN Creatinine Glucose POC Glucose 126 H 196 H Lactic Acid Calcium Phosphorus Magnesium Ferritin Total Bilirubin Lactate Dehydrogenase Total Creatine Kinase CK-MB (CK-2) C-Reactive Protein NT-Pro-B Natriuret Pep Total Protein Albumin Triglycerides Urine WBC (Auto) Urine Creatinine Urine Total Protein Vancomycin Trough Random Vancomycin Absolute CD4 Count Absolute CD19 Count Crossmatch 10/06/16 10/07/16 10/07/16 21:07 00:55 00:55 WBC 55.1 H* RBC 3.06 L Hgb 7.5 L Hct 24.4 L MCV MCH 24 L RDW 20.7 H Plt Count [place] # Baso # Seg Neutrophils % Seg Neuts % (Manual) Lymphocytes % (Manual) 8.0 L Monocytes % (Manual) 9.0 H Eosinophils % (Manual) Nucleated RBC % 30.0 H Seg Neutrophils # Seg Neutrophils # Man 27.0 H Abs Lymphs (Manual) Lymphocytes # (Manual) Monocytes # (Manual) 5.0 H Eosinophils # (Manual) 0.6 H Percent Retic PT INR D-Dimer POC ABG pH 7.317 L POC ABG pCO2 55.2 H POC ABG pO2 59 L Sodium 148 H Potassium Chloride 110.2 H Carbon Dioxide BUN 56 H Creatinine 1.7 H Glucose 211 H POC Glucose Lactic Acid Calcium Phosphorus Magnesium Ferritin Total Bilirubin Lactate Dehydrogenase Total Creatine Kinase CK-MB (CK-2) C-Reactive Protein NT-Pro-B Natriuret Pep Total Protein Albumin Triglycerides Urine WBC (Auto) Urine Creatinine Urine Total Protein Vancomycin Trough Random Vancomycin Absolute CD4 Count Absolute CD19 Count Crossmatch 10/07/16 10/07/16 10/07/16 01:01 05:20 06:31 WBC RBC Hgb Hct MCV MCH RDW Plt Count [place] # Baso # Seg Neutrophils % Seg Neuts % (Manual) Lymphocytes % (Manual) Monocytes % (Manual) Eosinophils % (Manual) Nucleated RBC % Seg Neutrophils # Seg Neutrophils # Man Abs Lymphs (Manual) Lymphocytes # (Manual) Monocytes # (Manual) Eosinophils # (Manual) Percent Retic PT INR D-Dimer POC ABG pH 7.310 L POC ABG pCO2 55.6 H POC ABG pO2 65 L Sodium Potassium Chloride Carbon Dioxide BUN Creatinine Glucose POC Glucose 249 H 235 H Lactic Acid Calcium Phosphorus Magnesium Ferritin Total Bilirubin Lactate Dehydrogenase Total Creatine Kinase CK-MB (CK-2) C-Reactive Protein NT-Pro-B Natriuret Pep Total Protein Albumin Triglycerides Urine WBC (Auto) Urine Creatinine Urine Total Protein Vancomycin Trough Random Vancomycin Absolute CD4 Count Absolute CD19 Count Crossmatch 10/07/16 10/07/16 10/07/16 12:00 18:04 23:48 WBC RBC Hgb Hct MCV MCH RDW Plt Count [place] # Baso # Seg Neutrophils % Seg Neuts % (Manual) Lymphocytes % (Manual) Monocytes % (Manual) Eosinophils % (Manual) Nucleated RBC % Seg Neutrophils # Seg Neutrophils # Man Abs Lymphs (Manual) Lymphocytes # (Manual) Monocytes # (Manual) Eosinophils # (Manual) Percent Retic PT INR D-Dimer POC ABG pH POC ABG pCO2 POC ABG pO2 Sodium Potassium Chloride Carbon Dioxide BUN Creatinine Glucose POC Glucose 210 H 201 H 163 H Lactic Acid Calcium Phosphorus Magnesium Ferritin Total Bilirubin Lactate Dehydrogenase Total Creatine Kinase CK-MB (CK-2) C-Reactive Protein NT-Pro-B Natriuret Pep Total Protein Albumin Triglycerides Urine WBC (Auto) Urine Creatinine Urine Total Protein Vancomycin Trough Random Vancomycin Absolute CD4 Count Absolute CD19 Count Crossmatch 10/08/16 10/08/16 10/08/16 04:00 04:00 04:10 WBC 58.0 H* RBC 2.95 L Hgb 7.3 L Hct 23.4 L MCV MCH 25 L RDW 20.8 H Plt Count [place] # Baso # Seg Neutrophils % Seg Neuts % (Manual) 75.0 H Lymphocytes % (Manual) 11.0 L Monocytes % (Manual) 8.0 H Eosinophils % (Manual) Nucleated RBC % 30.0 H Seg Neutrophils # Seg Neutrophils # Man 43.5 H Abs Lymphs (Manual) Lymphocytes # (Manual) 6.4 H Monocytes # (Manual) 4.6 H Eosinophils # (Manual) 0.6 H Percent Retic PT INR D-Dimer POC ABG pH POC ABG pCO2 POC ABG pO2 Sodium 152 H Potassium Chloride 111.4 H Carbon Dioxide BUN 59 H Creatinine 1.6 H Glucose 190 H POC Glucose 214 H Lactic Acid Calcium Phosphorus Magnesium Ferritin Total Bilirubin Lactate Dehydrogenase Total Creatine Kinase CK-MB (CK-2) C-Reactive Protein NT-Pro-B Natriuret Pep Total Protein Albumin Triglycerides Urine WBC (Auto) Urine Creatinine Urine Total Protein Vancomycin Trough Random Vancomycin Absolute CD4 Count Absolute CD19 Count Crossmatch 10/08/16 10/08/16 10/08/16 04:46 12:11 18:35 WBC RBC Hgb Hct MCV MCH RDW Plt Count [place] # Baso # Seg Neutrophils % Seg Neuts % (Manual) Lymphocytes % (Manual) Monocytes % (Manual) Eosinophils % (Manual) Nucleated RBC % Seg Neutrophils # Seg Neutrophils # Man Abs Lymphs (Manual) Lymphocytes # (Manual) Monocytes # (Manual) Eosinophils # (Manual) Percent Retic PT INR D-Dimer POC ABG pH POC ABG pCO2 POC ABG pO2 65 L Sodium Potassium Chloride Carbon Dioxide BUN Creatinine Glucose POC Glucose 199 H 187 H Lactic Acid Calcium Phosphorus Magnesium Ferritin Total Bilirubin Lactate Dehydrogenase Total Creatine Kinase CK-MB (CK-2) C-Reactive Protein NT-Pro-B Natriuret Pep Total Protein Albumin Triglycerides Urine WBC (Auto) Urine Creatinine Urine Total Protein Vancomycin Trough Random Vancomycin Absolute CD4 Count Absolute CD19 Count Crossmatch 10/08/16 10/09/16 10/09/16 23:38 04:43 05:38 WBC RBC Hgb Hct MCV MCH RDW Plt Count [place] # Baso # Seg Neutrophils % Seg Neuts % (Manual) Lymphocytes % (Manual) Monocytes % (Manual) Eosinophils % (Manual) Nucleated RBC % Seg Neutrophils # Seg Neutrophils # Man Abs Lymphs (Manual) Lymphocytes # (Manual) Monocytes # (Manual) Eosinophils # (Manual) Percent Retic PT INR D-Dimer POC ABG pH POC ABG pCO2 45.4 H POC ABG pO2 52 L Sodium Potassium Chloride Carbon Dioxide BUN Creatinine Glucose POC Glucose 202 H 182 H Lactic Acid Calcium Phosphorus Magnesium Ferritin Total Bilirubin Lactate Dehydrogenase Total Creatine Kinase CK-MB (CK-2) C-Reactive Protein NT-Pro-B Natriuret Pep Total Protein Albumin Triglycerides Urine WBC (Auto) Urine Creatinine Urine Total Protein Vancomycin Trough Random Vancomycin Absolute CD4 Count Absolute CD19 Count Crossmatch 10/09/16 10/09/16 10/09/16 07:40 07:40 10:00 WBC 37.3 H RBC 2.55 L Hgb 6.4 L Hct 20.7 L MCV MCH 25 L RDW 20.6 H Plt Count [place] # Baso # Seg Neutrophils % Seg Neuts % (Manual) Lymphocytes % (Manual) Monocytes % (Manual) Eosinophils % (Manual) Nucleated RBC % Seg Neutrophils # Seg Neutrophils # Man Abs Lymphs (Manual) Lymphocytes # (Manual) Monocytes # (Manual) Eosinophils # (Manual) Percent Retic PT INR D-Dimer POC ABG pH POC ABG pCO2 POC ABG pO2 Sodium 153 H Potassium 3.3 L Chloride 112.7 H Carbon Dioxide BUN 62 H Creatinine 1.7 H Glucose 146 H POC Glucose Lactic Acid Calcium Phosphorus Magnesium Ferritin Total Bilirubin Lactate Dehydrogenase Total Creatine Kinase CK-MB (CK-2) C-Reactive Protein NT-Pro-B Natriuret Pep Total Protein Albumin Triglycerides Urine WBC (Auto) Urine Creatinine Urine Total Protein Vancomycin Trough Random Vancomycin Absolute CD4 Count Absolute CD19 Count Crossmatch See Detail 10/09/16 10/09/16 10/10/16 12:06 17:08 00:01 WBC RBC Hgb Hct MCV MCH RDW Plt Count [place] # Baso # Seg Neutrophils % Seg Neuts % (Manual) Lymphocytes % (Manual) Monocytes % (Manual) Eosinophils % (Manual) Nucleated RBC % Seg Neutrophils # Seg Neutrophils # Man Abs Lymphs (Manual) Lymphocytes # (Manual) Monocytes # (Manual) Eosinophils # (Manual) Percent Retic PT INR D-Dimer POC ABG pH POC ABG pCO2 POC ABG pO2 Sodium Potassium Chloride Carbon Dioxide BUN Creatinine Glucose POC Glucose 214 H 152 H 189 H Lactic Acid Calcium Phosphorus Magnesium Ferritin Total Bilirubin Lactate Dehydrogenase Total Creatine Kinase CK-MB (CK-2) C-Reactive Protein NT-Pro-B Natriuret Pep Total Protein Albumin Triglycerides Urine WBC (Auto) Urine Creatinine Urine Total Protein Vancomycin Trough Random Vancomycin Absolute CD4 Count Absolute CD19 Count Crossmatch 10/10/16 10/10/16 10/10/16 04:25 05:28 06:00 WBC RBC Hgb Hct MCV MCH RDW Plt Count [place] # Baso # Seg Neutrophils % Seg Neuts % (Manual) Lymphocytes % (Manual) Monocytes % (Manual) Eosinophils % (Manual) Nucleated RBC % Seg Neutrophils # Seg Neutrophils # Man Abs Lymphs (Manual) Lymphocytes # (Manual) Monocytes # (Manual) Eosinophils # (Manual) Percent Retic PT INR D-Dimer POC ABG pH POC ABG pCO2 58.3 H POC ABG pO2 68 L Sodium Potassium Chloride Carbon Dioxide BUN Creatinine Glucose POC Glucose 155 H Lactic Acid Calcium Phosphorus Magnesium Ferritin Total Bilirubin Lactate Dehydrogenase Total Creatine Kinase CK-MB (CK-2) C-Reactive Protein NT-Pro-B Natriuret Pep Total Protein Albumin Triglycerides 407 H Urine WBC (Auto) Urine Creatinine Urine Total Protein Vancomycin Trough Random Vancomycin Absolute CD4 Count Absolute CD19 Count Crossmatch 10/10/16 10/10/16 10/10/16 06:00 06:00 06:00 WBC 38.5 H RBC 3.57 L Hgb 9.3 L Hct 30.1 L D MCV MCH 26 L RDW 22.0 H Plt Count 464 H [place] # Baso # Seg Neutrophils % Seg Neuts % (Manual) 81.0 H Lymphocytes % (Manual) 9.0 L Monocytes % (Manual) Eosinophils % (Manual) Nucleated RBC % 84.0 H Seg Neutrophils # Seg Neutrophils # Man 31.2 H Abs Lymphs (Manual) Lymphocytes # (Manual) Monocytes # (Manual) Eosinophils # (Manual) 1.2 H Percent Retic PT INR D-Dimer POC ABG pH POC ABG pCO2 POC ABG pO2 Sodium 153 H Potassium Chloride 108.3 H Carbon Dioxide 31 H BUN 62 H Creatinine 1.5 H Glucose 160 H POC Glucose Lactic Acid Calcium Phosphorus Magnesium Ferritin 782.0 H Total Bilirubin Lactate Dehydrogenase Total Creatine Kinase CK-MB (CK-2) C-Reactive Protein NT-Pro-B Natriuret Pep Total Protein Albumin Triglycerides Urine WBC (Auto) Urine Creatinine Urine Total Protein Vancomycin Trough Random Vancomycin Absolute CD4 Count Absolute CD19 Count Crossmatch 10/10/16 10/10/16 10/10/16 11:29 13:03 13:03 WBC RBC Hgb Hct MCV MCH RDW Plt Count [place] # Baso # Seg Neutrophils % Seg Neuts % (Manual) Lymphocytes % (Manual) Monocytes % (Manual) Eosinophils % (Manual) Nucleated RBC % Seg Neutrophils # Seg Neutrophils # Man Abs Lymphs (Manual) 3936 H Lymphocytes # (Manual) Monocytes # (Manual) Eosinophils # (Manual) Percent Retic PT 17.6 H INR 1.45 H D-Dimer POC ABG pH POC ABG pCO2 POC ABG pO2 Sodium Potassium Chloride Carbon Dioxide BUN Creatinine Glucose POC Glucose 177 H Lactic Acid Calcium Phosphorus Magnesium Ferritin Total Bilirubin Lactate Dehydrogenase Total Creatine Kinase CK-MB (CK-2) C-Reactive Protein NT-Pro-B Natriuret Pep Total Protein Albumin Triglycerides Urine WBC (Auto) Urine Creatinine Urine Total Protein Vancomycin Trough Random Vancomycin Absolute CD4 Count 2178 H Absolute CD19 Count 824 H Crossmatch 10/10/16 10/11/16 10/11/16 17:38 00:04 05:35 WBC RBC Hgb Hct MCV MCH RDW Plt Count [place] # Baso # Seg Neutrophils % Seg Neuts % (Manual) Lymphocytes % (Manual) Monocytes % (Manual) Eosinophils % (Manual) Nucleated RBC % Seg Neutrophils # Seg Neutrophils # Man Abs Lymphs (Manual) Lymphocytes # (Manual) Monocytes # (Manual) Eosinophils # (Manual) Percent Retic PT INR D-Dimer POC ABG pH POC ABG pCO2 56.6 H POC ABG pO2 63 L Sodium Potassium Chloride Carbon Dioxide BUN Creatinine Glucose POC Glucose 173 H 155 H Lactic Acid Calcium Phosphorus Magnesium Ferritin Total Bilirubin Lactate Dehydrogenase Total Creatine Kinase CK-MB (CK-2) C-Reactive Protein NT-Pro-B Natriuret Pep Total Protein Albumin Triglycerides Urine WBC (Auto) Urine Creatinine Urine Total Protein Vancomycin Trough Random Vancomycin Absolute CD4 Count Absolute CD19 Count Crossmatch 10/11/16 10/11/16 10/11/16 06:01 11:43 12:54 WBC 31.8 H RBC Hgb Hct MCV MCH RDW 17.8 H Plt Count [place] # Baso # Seg Neutrophils % Seg Neuts % (Manual) 84.0 H Lymphocytes % (Manual) 9.0 L Monocytes % (Manual) Eosinophils % (Manual) Nucleated RBC % 28.0 H Seg Neutrophils # Seg Neutrophils # Man 27.1 H Abs Lymphs (Manual) Lymphocytes # (Manual) Monocytes # (Manual) 1.6 H Eosinophils # (Manual) Percent Retic PT INR D-Dimer POC ABG pH POC ABG pCO2 POC ABG pO2 Sodium Potassium Chloride Carbon Dioxide BUN Creatinine Glucose POC Glucose 231 H 185 H Lactic Acid Calcium Phosphorus Magnesium Ferritin Total Bilirubin Lactate Dehydrogenase Total Creatine Kinase CK-MB (CK-2) C-Reactive Protein NT-Pro-B Natriuret Pep Total Protein Albumin Triglycerides Urine WBC (Auto) Urine Creatinine Urine Total Protein Vancomycin Trough Random Vancomycin Absolute CD4 Count Absolute CD19 Count Crossmatch 10/11/16 10/11/16 10/11/16 12:54 14:10 18:02 WBC RBC Hgb Hct MCV MCH RDW Plt Count [place] # Baso # Seg Neutrophils % Seg Neuts % (Manual) Lymphocytes % (Manual) Monocytes % (Manual) Eosinophils % (Manual) Nucleated RBC % Seg Neutrophils # Seg Neutrophils # Man Abs Lymphs (Manual) Lymphocytes # (Manual) Monocytes # (Manual) Eosinophils # (Manual) Percent Retic PT INR D-Dimer POC ABG pH 7.311 L POC ABG pCO2 71.4 H POC ABG pO2 59 L Sodium Potassium Chloride 97.1 L Carbon Dioxide BUN 57 H Creatinine 1.6 H Glucose 369 H POC Glucose 206 H Lactic Acid Calcium 8.2 L Phosphorus Magnesium Ferritin Total Bilirubin Lactate Dehydrogenase Total Creatine Kinase CK-MB (CK-2) C-Reactive Protein NT-Pro-B Natriuret Pep Total Protein Albumin Triglycerides Urine WBC (Auto) Urine Creatinine Urine Total Protein Vancomycin Trough Random Vancomycin Absolute CD4 Count Absolute CD19 Count Crossmatch 10/11/16 10/11/16 10/12/16 20:57 21:23 00:43 WBC RBC Hgb Hct MCV MCH RDW Plt Count [place] # Baso # Seg Neutrophils % Seg Neuts % (Manual) Lymphocytes % (Manual) Monocytes % (Manual) Eosinophils % (Manual) Nucleated RBC % Seg Neutrophils # Seg Neutrophils # Man Abs Lymphs (Manual) Lymphocytes # (Manual) Monocytes # (Manual) Eosinophils # (Manual) Percent Retic PT INR D-Dimer POC ABG pH 7.242 L POC ABG pCO2 88.4 H POC ABG pO2 57 L Sodium Potassium Chloride Carbon Dioxide BUN Creatinine Glucose POC Glucose 212 H Lactic Acid Calcium Phosphorus Magnesium Ferritin Total Bilirubin Lactate Dehydrogenase Total Creatine Kinase CK-MB (CK-2) C-Reactive Protein 3.00 H NT-Pro-B Natriuret Pep Total Protein Albumin Triglycerides Urine WBC (Auto) Urine Creatinine Urine Total Protein Vancomycin Trough Random Vancomycin Absolute CD4 Count Absolute CD19 Count Crossmatch 10/12/16 10/12/16 10/12/16 05:49 06:03 06:57 WBC 37.0 H RBC Hgb Hct MCV MCH RDW 18.0 H Plt Count [place] # 2.0 H Baso # 0.2 H Seg Neutrophils % 86.7 H Seg Neuts % (Manual) 91.5 H Lymphocytes % (Manual) 6.0 L Monocytes % (Manual) Eosinophils % (Manual) Nucleated RBC % 15.5 H Seg Neutrophils # 30.6 H Seg Neutrophils # Man 33.9 H Abs Lymphs (Manual) Lymphocytes # (Manual) Monocytes # (Manual) Eosinophils # (Manual) Percent Retic PT INR D-Dimer POC ABG pH 7.289 L POC ABG pCO2 82.4 H POC ABG pO2 65 L Sodium Potassium Chloride Carbon Dioxide BUN Creatinine Glucose POC Glucose 230 H Lactic Acid Calcium Phosphorus Magnesium Ferritin Total Bilirubin Lactate Dehydrogenase Total Creatine Kinase CK-MB (CK-2) C-Reactive Protein NT-Pro-B Natriuret Pep Total Protein Albumin Triglycerides Urine WBC (Auto) Urine Creatinine Urine Total Protein Vancomycin Trough Random Vancomycin Absolute CD4 Count Absolute CD19 Count Crossmatch 10/12/16 10/12/16 10/12/16 06:57 11:59 17:00 WBC RBC Hgb Hct MCV MCH RDW Plt Count [place] # Baso # Seg Neutrophils % Seg Neuts % (Manual) Lymphocytes % (Manual) Monocytes % (Manual) Eosinophils % (Manual) Nucleated RBC % Seg Neutrophils # Seg Neutrophils # Man Abs Lymphs (Manual) Lymphocytes # (Manual) Monocytes # (Manual) Eosinophils # (Manual) Percent Retic PT INR D-Dimer POC ABG pH POC ABG pCO2 POC ABG pO2 Sodium 151 H D 130 L D Potassium Chloride Carbon Dioxide 32 H BUN 62 H Creatinine 1.6 H Glucose 231 H POC Glucose 222 H Lactic Acid Calcium Phosphorus 4.90 H Magnesium Ferritin Total Bilirubin Lactate Dehydrogenase Total Creatine Kinase CK-MB (CK-2) C-Reactive Protein NT-Pro-B Natriuret Pep Total Protein Albumin Triglycerides Urine WBC (Auto) Urine Creatinine Urine Total Protein Vancomycin Trough Random Vancomycin Absolute CD4 Count Absolute CD19 Count Crossmatch 10/12/16 10/12/16 10/12/16 17:41 22:04 23:25 WBC RBC Hgb Hct MCV MCH RDW Plt Count [place] # Baso # Seg Neutrophils % Seg Neuts % (Manual) Lymphocytes % (Manual) Monocytes % (Manual) Eosinophils % (Manual) Nucleated RBC % Seg Neutrophils # Seg Neutrophils # Man Abs Lymphs (Manual) Lymphocytes # (Manual) Monocytes # (Manual) Eosinophils # (Manual) Percent Retic PT INR D-Dimer POC ABG pH 7.264 L POC ABG pCO2 89.1 H POC ABG pO2 62 L Sodium Potassium Chloride Carbon Dioxide BUN Creatinine Glucose POC Glucose 223 H 160 H Lactic Acid Calcium Phosphorus Magnesium Ferritin Total Bilirubin Lactate Dehydrogenase Total Creatine Kinase CK-MB (CK-2) C-Reactive Protein NT-Pro-B Natriuret Pep Total Protein Albumin Triglycerides Urine WBC (Auto) Urine Creatinine Urine Total Protein Vancomycin Trough Random Vancomycin Absolute CD4 Count Absolute CD19 Count Crossmatch 10/13/16 10/13/16 10/13/16 05:30 06:00 06:00 WBC 25.9 H RBC Hgb Hct MCV MCH RDW 18.1 H Plt Count [place] # Baso # Seg Neutrophils % Seg Neuts % (Manual) 85.0 H Lymphocytes % (Manual) 9.0 L Monocytes % (Manual) Eosinophils % (Manual) Nucleated RBC % 6.0 H Seg Neutrophils # Seg Neutrophils # Man 22.0 H Abs Lymphs (Manual) Lymphocytes # (Manual) Monocytes # (Manual) 1.4 H Eosinophils # (Manual) Percent Retic PT INR D-Dimer POC ABG pH 7.281 L POC ABG pCO2 89.6 H POC ABG pO2 63 L Sodium 148 H D Potassium Chloride Carbon Dioxide 36 H BUN 58 H Creatinine 1.3 H Glucose 189 H POC Glucose Lactic Acid Calcium Phosphorus Magnesium Ferritin Total Bilirubin Lactate Dehydrogenase Total Creatine Kinase CK-MB (CK-2) C-Reactive Protein NT-Pro-B Natriuret Pep Total Protein Albumin Triglycerides Urine WBC (Auto) Urine Creatinine Urine Total Protein Vancomycin Trough Random Vancomycin Absolute CD4 Count Absolute CD19 Count Crossmatch 10/13/16 10/13/16 10/13/16 06:20 11:10 17:26 WBC RBC Hgb Hct MCV MCH RDW Plt Count [place] # Baso # Seg Neutrophils % Seg Neuts % (Manual) Lymphocytes % (Manual) Monocytes % (Manual) Eosinophils % (Manual) Nucleated RBC % Seg Neutrophils # Seg Neutrophils # Man Abs Lymphs (Manual) Lymphocytes # (Manual) Monocytes # (Manual) Eosinophils # (Manual) Percent Retic PT INR D-Dimer POC ABG pH POC ABG pCO2 POC ABG pO2 Sodium Potassium Chloride Carbon Dioxide BUN Creatinine Glucose POC Glucose 192 H 198 H 162 H Lactic Acid Calcium Phosphorus Magnesium Ferritin Total Bilirubin Lactate Dehydrogenase Total Creatine Kinase CK-MB (CK-2) C-Reactive Protein NT-Pro-B Natriuret Pep Total Protein Albumin Triglycerides Urine WBC (Auto) Urine Creatinine Urine Total Protein Vancomycin Trough Random Vancomycin Absolute CD4 Count Absolute CD19 Count Crossmatch 10/13/16 10/13/16 10/13/16 20:40 20:57 23:33 WBC RBC Hgb Hct MCV MCH RDW Plt Count [place] # Baso # Seg Neutrophils % Seg Neuts % (Manual) Lymphocytes % (Manual) Monocytes % (Manual) Eosinophils % (Manual) Nucleated RBC % Seg Neutrophils # Seg Neutrophils # Man Abs Lymphs (Manual) Lymphocytes # (Manual) Monocytes # (Manual) Eosinophils # (Manual) Percent Retic PT INR D-Dimer POC ABG pH 7.201 L 7.455 H POC ABG pCO2 111.2 H 54.2 H POC ABG pO2 45 L 57 L Sodium 148 H Potassium Chloride Carbon Dioxide BUN Creatinine Glucose POC Glucose Lactic Acid Calcium Phosphorus Magnesium Ferritin Total Bilirubin Lactate Dehydrogenase Total Creatine Kinase CK-MB (CK-2) C-Reactive Protein NT-Pro-B Natriuret Pep Total Protein Albumin Triglycerides Urine WBC (Auto) Urine Creatinine Urine Total Protein Vancomycin Trough Random Vancomycin Absolute CD4 Count Absolute CD19 Count Crossmatch 10/14/16 10/14/16 10/14/16 00:48 04:12 05:30 WBC 23.1 H RBC 3.49 L Hgb 9.9 L Hct MCV MCH RDW 16.9 H Plt Count [place] # Baso # Seg Neutrophils % Seg Neuts % (Manual) 82.0 H Lymphocytes % (Manual) 9.0 L Monocytes % (Manual) Eosinophils % (Manual) Nucleated RBC % 2.0 H Seg Neutrophils # Seg Neutrophils # Man 18.9 H Abs Lymphs (Manual) Lymphocytes # (Manual) Monocytes # (Manual) 1.4 H Eosinophils # (Manual) Percent Retic PT INR D-Dimer POC ABG pH 7.497 H POC ABG pCO2 49.4 H POC ABG pO2 60 L Sodium Potassium Chloride Carbon Dioxide BUN Creatinine Glucose POC Glucose 147 H Lactic Acid Calcium Phosphorus Magnesium Ferritin Total Bilirubin Lactate Dehydrogenase Total Creatine Kinase CK-MB (CK-2) C-Reactive Protein NT-Pro-B Natriuret Pep Total Protein Albumin Triglycerides Urine WBC (Auto) Urine Creatinine Urine Total Protein Vancomycin Trough Random Vancomycin Absolute CD4 Count Absolute CD19 Count Crossmatch 10/14/16 10/14/16 10/14/16 05:30 05:30 05:53 WBC RBC Hgb Hct MCV MCH RDW Plt Count [place] # Baso # Seg Neutrophils % Seg Neuts % (Manual) Lymphocytes % (Manual) Monocytes % (Manual) Eosinophils % (Manual) Nucleated RBC % Seg Neutrophils # Seg Neutrophils # Man Abs Lymphs (Manual) Lymphocytes # (Manual) Monocytes # (Manual) Eosinophils # (Manual) Percent Retic PT INR D-Dimer POC ABG pH POC ABG pCO2 POC ABG pO2 Sodium 146 H Potassium Chloride Carbon Dioxide 35 H BUN 56 H Creatinine 1.3 H Glucose 155 H POC Glucose 156 H Lactic Acid Calcium Phosphorus 1.90 L D Magnesium 2.90 H Ferritin Total Bilirubin Lactate Dehydrogenase Total Creatine Kinase CK-MB (CK-2) C-Reactive Protein NT-Pro-B Natriuret Pep Total Protein Albumin Triglycerides Urine WBC (Auto) Urine Creatinine Urine Total Protein Vancomycin Trough Random Vancomycin Absolute CD4 Count Absolute CD19 Count Crossmatch 10/14/16 10/14/16 10/14/16 12:05 14:34 17:33 WBC RBC Hgb Hct MCV MCH RDW Plt Count [place] # Baso # Seg Neutrophils % Seg Neuts % (Manual) Lymphocytes % (Manual) Monocytes % (Manual) Eosinophils % (Manual) Nucleated RBC % Seg Neutrophils # Seg Neutrophils # Man Abs Lymphs (Manual) Lymphocytes # (Manual) Monocytes # (Manual) Eosinophils # (Manual) Percent Retic PT INR D-Dimer POC ABG pH POC ABG pCO2 57.4 H POC ABG pO2 177 H Sodium Potassium Chloride Carbon Dioxide BUN Creatinine Glucose POC Glucose 145 H 172 H Lactic Acid Calcium Phosphorus Magnesium Ferritin Total Bilirubin Lactate Dehydrogenase Total Creatine Kinase CK-MB (CK-2) C-Reactive Protein NT-Pro-B Natriuret Pep Total Protein Albumin Triglycerides Urine WBC (Auto) Urine Creatinine Urine Total Protein Vancomycin Trough Random Vancomycin Absolute CD4 Count Absolute CD19 Count Crossmatch 10/14/16 10/14/16 10/15/16 21:57 23:31 05:10 WBC 23.9 H RBC 3.33 L Hgb 9.5 L Hct 29.7 L MCV MCH RDW 16.8 H Plt Count [place] # Baso # Seg Neutrophils % Seg Neuts % (Manual) Lymphocytes % (Manual) Monocytes % (Manual) Eosinophils % (Manual) Nucleated RBC % 4.0 H Seg Neutrophils # Seg Neutrophils # Man 15.3 H Abs Lymphs (Manual) Lymphocytes # (Manual) Monocytes # (Manual) 1.7 H Eosinophils # (Manual) 0.5 H Percent Retic PT INR D-Dimer POC ABG pH POC ABG pCO2 53.6 H POC ABG pO2 60 L Sodium Potassium Chloride Carbon Dioxide BUN Creatinine Glucose POC Glucose 201 H Lactic Acid Calcium Phosphorus Magnesium Ferritin Total Bilirubin Lactate Dehydrogenase Total Creatine Kinase CK-MB (CK-2) C-Reactive Protein NT-Pro-B Natriuret Pep Total Protein Albumin Triglycerides Urine WBC (Auto) Urine Creatinine Urine Total Protein Vancomycin Trough Random Vancomycin Absolute CD4 Count Absolute CD19 Count Crossmatch 10/15/16 10/15/16 10/15/16 05:10 05:10 05:40 WBC RBC Hgb Hct MCV MCH RDW Plt Count [place] # Baso # Seg Neutrophils % Seg Neuts % (Manual) Lymphocytes % (Manual) Monocytes % (Manual) Eosinophils % (Manual) Nucleated RBC % Seg Neutrophils # Seg Neutrophils # Man Abs Lymphs (Manual) Lymphocytes # (Manual) Monocytes # (Manual) Eosinophils # (Manual) Percent Retic PT INR D-Dimer POC ABG pH POC ABG pCO2 POC ABG pO2 Sodium Potassium 3.5 L Chloride Carbon Dioxide 33 H BUN 61 H Creatinine Glucose 127 H POC Glucose 145 H Lactic Acid Calcium 8.2 L Phosphorus 4.90 H D Magnesium 2.90 H Ferritin Total Bilirubin Lactate Dehydrogenase Total Creatine Kinase CK-MB (CK-2) C-Reactive Protein NT-Pro-B Natriuret Pep Total Protein Albumin Triglycerides Urine WBC (Auto) Urine Creatinine Urine Total Protein Vancomycin Trough Random Vancomycin Absolute CD4 Count Absolute CD19 Count Crossmatch 10/15/16 10/15/16 10/15/16 06:17 11:09 17:50 WBC RBC Hgb Hct MCV MCH RDW Plt Count [place] # Baso # Seg Neutrophils % Seg Neuts % (Manual) Lymphocytes % (Manual) Monocytes % (Manual) Eosinophils % (Manual) Nucleated RBC % Seg Neutrophils # Seg Neutrophils # Man Abs Lymphs (Manual) Lymphocytes # (Manual) Monocytes # (Manual) Eosinophils # (Manual) Percent Retic PT INR D-Dimer POC ABG pH POC ABG pCO2 65.2 H POC ABG pO2 Sodium Potassium Chloride Carbon Dioxide BUN Creatinine Glucose POC Glucose 169 H 210 H Lactic Acid Calcium Phosphorus Magnesium Ferritin Total Bilirubin Lactate Dehydrogenase Total Creatine Kinase CK-MB (CK-2) C-Reactive Protein NT-Pro-B Natriuret Pep Total Protein Albumin Triglycerides Urine WBC (Auto) Urine Creatinine Urine Total Protein Vancomycin Trough Random Vancomycin Absolute CD4 Count Absolute CD19 Count Crossmatch 10/15/16 10/16/16 10/16/16 23:39 05:51 06:07 WBC RBC Hgb Hct MCV MCH RDW Plt Count [place] # Baso # Seg Neutrophils % Seg Neuts % (Manual) Lymphocytes % (Manual) Monocytes % (Manual) Eosinophils % (Manual) Nucleated RBC % Seg Neutrophils # Seg Neutrophils # Man Abs Lymphs (Manual) Lymphocytes # (Manual) Monocytes # (Manual) Eosinophils # (Manual) Percent Retic PT INR D-Dimer POC ABG pH POC ABG pCO2 56.8 H POC ABG pO2 50 L Sodium Potassium Chloride Carbon Dioxide BUN Creatinine Glucose POC Glucose 291 H 216 H Lactic Acid Calcium Phosphorus Magnesium Ferritin Total Bilirubin Lactate Dehydrogenase Total Creatine Kinase CK-MB (CK-2) C-Reactive Protein NT-Pro-B Natriuret Pep Total Protein Albumin Triglycerides Urine WBC (Auto) Urine Creatinine Urine Total Protein Vancomycin Trough Random Vancomycin Absolute CD4 Count Absolute CD19 Count Crossmatch Chest x-ray: image reviewed Allied health notes reviewed: RT
--- NOTE | 2016-10-16 10:01 | XRay Report ---
AP CHEST :10/16/16 CLINICAL: Intubated.Follow up respiratory failure. COMPARISON:The previous day. FINDINGS: Tubes and lines are satisfactory and unchanged. Continued extensive multilobar bilateral airspace disease with air bronchograms. Considering differences in technique, no change. No pneumothorax. IMPRESSION: No change.Since the bilateral multilobar airspace disease consistent with either pulmonary edema or pneumonia.
[2016-10-16] MEDS: LASIX IV SCH (10:29)
[2016-10-16] MEDS: FOLVITE PO SCH (10:29)
[2016-10-16] MEDS: ZYVOX PO SCH ×2 (10:29→22:02)
[2016-10-16] MEDS: PEPCID PO SCH ×2 (10:29→22:02)
[2016-10-16] MEDS: ASPIRIN PO SCH (10:29)
[2016-10-16] MEDS: VALTREX PO SCH (10:29)
[2016-10-16] MEDS: THERAGRAN Tab PO SCH (10:29)
[2016-10-16] MEDS: LOVENOX SUB-Q SCH (10:30)
[2016-10-16] MEDS: SENOKOT PO SCH (10:45)
--- NOTE | 2016-10-16 11:33 | Progress Note ---
Assessment and Plan - Patient Problems (1) Acute respiratory failure with hypoxia Current Visit: Yes Status: Acute Plan to address problem: 1. Continue Linezolid. MRSA isolated from sputum. 2. Diuresis, etc. per assistant counsel. (2) Leukemoid reaction Current Visit: Yes Status: Acute Plan to address problem: 1. Stable WBC count hovering around 20K. 2. Anticipate some increase with steroids, but will monitor clinically for new issues concerning for infection. Subjective Date of service: 10/16/16 Principal diagnosis: Acute Hypoxemic Respiratory Failure; ARDS Interval history: Remains in ICU. Low-grade temperature to 100.1 deg F. No new clinical issues. Objective - Exam Narrative Exam: intubated; opens eyes to voice - Constitutional Vitals: Vital Signs Temp Pulse Resp BP Pulse Ox 98.9 F 102 H 36 H 120/62 93 10/16/16 08:00 10/16/16 08:44 10/16/16 08:44 10/16/16 08:11 10/16/16 08:11 Temperature -Last 24 Hours Temperature 98.9 F Temperature 99.8 F Temperature 100.1 F Temperature 99.4 F Temperature 99.4 F General appearance: Present: obese - EENT Eyes: exopthalmos - Respiratory Respiratory effort: normal Respiratory: bilateral: CTA, negative: rhonchi, wheezing - Cardiovascular Rhythm: regular (tachycardia, 100-100s) Heart Sounds: Present: S1 & S2 Extremities: No edema - Gastrointestinal General gastrointestinal: Present: soft, non-distended, normal bowel sounds - Genitourinary Female genitourinary: other (slightly turbid urine per Montes) - Integumentary Integumentary: no rash (mild diaphoresis) - Psychiatric Psychiatric: other (sedated mildly) - Labs CBC & Chem 7: 10/15/16 05:10 10/15/16 05:10 Labs: Abnormal lab results 10/15/16 10/15/16 10/15/16 Range/Units 11:09 17:50 23:39 POC ABG pCO2 (35-45) POC ABG pO2 (80-105) POC Glucose 169 H 210 H 291 H (70-105) 10/16/16 10/16/16 Range/Units 05:51 06:07 POC ABG pCO2 56.8 H (35-45) POC ABG pO2 50 L (80-105) POC Glucose 216 H (70-105) Microbiology 10/12/16 13:28 Tracheal Aspirate Sputum Culture - Final Methicillin Resist S. Aureus 10/15/16 Unknown Bronchoalveolar Lavage - Left Lower Lobe Respiratory Culture - Preliminary 10/04/16 04:05 Tracheal Aspirate Herpes Simplex Virus Culture - Final 10/03/16 09:20 Peripheral/Venous Blood Culture - Final NO GROWTH AFTER 5 DAYS 10/03/16 09:30 Picc Blood Culture - Final NO GROWTH AFTER 5 DAYS 10/03/16 09:06 Urine,Catheterized - Indwelling Catheter Urine Culture - Final 09/27/16 22:47 Peripheral/Venous Blood Culture - Final NO GROWTH AFTER 5 DAYS 09/27/16 22:47 Peripheral/Venous Blood Culture - Final NO GROWTH AFTER 5 DAYS 09/27/16 15:06 Peripheral/Venous Blood Culture - Final NO GROWTH AFTER 5 DAYS 09/27/16 14:40 Peripheral/Venous Blood Culture - Final NO GROWTH AFTER 5 DAYS 09/30/16 Unknown Tracheal Aspirate Sputum Culture - Final Active Medications Acetaminophen (Tylenol) 650 mg PO Q4H PRN PRN Reason: Pain MILD(1-3)/Fever >100.5/PALACIOS Last Admin: 10/07/16 18:13 Dose: 650 mg Albuterol/Ipratropium (Duoneb 0.5 Mg-3 Mg/3 Ml Soln) 1 ampul IH Q6HRT [facility] Last Admin: 10/16/16 08:41 Dose: 1 ampul Lipase/Protease/Amylase (Pancreaze Dr 10,500 Unit) 1 each FEEDTUBE PRN PRN PRN Reason: For Clogged Feeding Tube Arformoterol Tartrate (Brovana Nebu) 15 mcg IH Q12HRT [facility] Last Admin: 10/16/16 08:40 Dose: 15 mcg Aspirin (Aspirin) 325 mg PO QDAY [facility] Last Admin: 10/16/16 10:29 Dose: 325 mg Budesonide (Pulmicort) 0.5 mg IH Q12HRT [facility] Last Admin: 10/16/16 08:40 Dose: 0.5 mg Diphenhydramine HCl (Benadryl) 12.5 mg IV Q4H PRN PRN Reason: Itching Last Admin: 09/30/16 07:02 Dose: 12.5 mg Enoxaparin Sodium (Lovenox) 40 mg SUB-Q QDAY [facility] Last Admin: 10/16/16 10:30 Dose: 40 mg Famotidine (Pepcid) 20 mg PO BID [facility] Last Admin: 10/16/16 10:29 Dose: 20 mg Folic Acid (Folvite) 1 mg PO QDAY [facility] Last Admin: 10/16/16 10:29 Dose: 1 mg Furosemide (Lasix) 20 mg IV DAILY [facility] Last Admin: 10/16/16 10:29 Dose: 20 mg Hydrophilic Ointment (Vaseline Lip Therapy) 1 applic TP Q2HR PRN PRN Reason: Dry Lips Fentanyl Citrate (Fentanyl Drip Premix) 2,000 mcg in 100 mls @ 4.649 mls/hr IV TITR SADAF; 1 MCG/KG/HR PRN Reason: Protocol Last Admin: 10/15/16 21:50 Dose: 2 mcg/kg/hr, 9.299 mls/hr Midazolam HCl 100 mg/ Sodium (Chloride) 100 mls @ 2 mls/hr IV TITR SADAF; 2 MG/HR PRN Reason: Protocol Last Admin: 10/04/16 12:54 Dose: 2 mg/hr, 2 mls/hr Dextrose (D5w) 1,000 mls @ 50 mls/hr IV DIRECT [facility] Last Admin: 10/15/16 09:00 Dose: 50 mls/hr Propofol (Diprivan 10 Mg/Ml) 1,000 mg in 100 mls @ 3.045 mls/hr IV TITR SADAF; 5 MCG/KG/MIN PRN Reason: Protocol Last Admin: 10/15/16 23:41 Dose: 8 mcg/kg/min, 4.872 mls/hr Insulin Human Regular (Novolin R) 0 units SUB-Q Q6HR [facility] PRN Reason: Protocol Last Admin: 10/16/16 00:24 Dose: 3 units Linezolid (Zyvox) 600 mg PO Q12HR [facility] PRN Reason: Protocol Last Admin: 10/16/16 10:29 Dose: 600 mg Methylprednisolone Sodium Succinate (Solu-Medrol) 125 mg IV Q6H [facility] Last Admin: 10/16/16 10:29 Dose: 125 mg Multi-Ingred Cream/Lotion/Oil/Oint (Artificial Tears Ophth Oint) 1 applic OU Q4HR PRN PRN Reason: Dry Eye(s) Multivitamins (Theragran Tab) 1 each PO QDAY [facility] Last Admin: 10/16/16 10:29 Dose: 1 each Ondansetron HCl (Zofran) 4 mg IV Q8H PRN PRN Reason: Nausea And Vomiting Last Admin: 09/29/16 23:07 Dose: 4 mg Potassium Phos/Sodium Phos (Phos-Nak) 1 each FEEDTUBE Q8HR [facility] Last Admin: 10/15/16 22:29 Dose: 1 each Promethazine HCl (Phenergan) 25 mg AK Q6H PRN PRN Reason: Nausea And Vomiting Last Admin: 09/25/16 22:05 Dose: 25 mg Senna (Senokot) 17.2 mg PO DAILY [facility] Last Admin: 10/16/16 10:45 Dose: Not Given Simple Syrup (Simple Syrup) 15 ml FEEDTUBE PRN PRN PRN Reason: Hypoglycemia Simple Syrup (Simple Syrup) 30 ml FEEDTUBE PRN PRN PRN Reason: Hypoglycemia Sodium Bicarbonate (Sodium Bicarbonate) 325 mg FEEDTUBE PRN PRN PRN Reason: For Clogged Feeding Tube Sodium Chloride (Sodium Chloride Flush Syringe 10 Ml) 10 ml IV PRN PRN PRN Reason: LINE FLUSH Tramadol HCl (Ultram) 50 mg PO Q4H PRN PRN Reason: Pain, Moderate (4-6) Last Admin: 10/06/16 21:54 Dose: 50 mg Valacyclovir HCl (Valtrex) 500 mg PO DAILY [facility] Last Admin: 10/16/16 10:29 Dose: 500 mg Zolpidem Tartrate (Ambien) 5 mg PO QHS PRN PRN Reason: Sleep - Imaging and cardiology Chest x-ray: report reviewed (unchanged bilateral airspace disease consistent with pulmonary infiltrates or edema)
[2016-10-16] MEDS: LEVEMIR SUB-Q SCH (12:14)
[2016-10-16 15:38] LABS: Hematocrit 28.1 % (30.3-42.9); Mean Corpuscular HGB Conc 32 % (30-34); Mean Corpuscular Hemoglobin 29 pg (28-32); Mean Corpuscular Volume 90 fl (79-97); Platelet Count 266 K/mm3 (140-440); Red Blood Count 3.13 M/mm3 (3.65-5.03); Red Cell Distribution Width 15.9 % (13.2-15.2)
[2016-10-16 15:39] LABS: White Blood Count 22.2 K/mm3 (4.5-11.0)
[2016-10-16] MEDS ORDERED: NACL 0.9% 500 ML 500 ML IV ONE (16:00)
[2016-10-16 16:23] LABS: Basophils % (Manual) 0 % (0.0-1.8); Blastocytes % (Manual) 0 %; Eosinophils % (Manual) 0 % (0.0-4.3)
[2016-10-16 16:24] LABS: Anisocytosis 1+
[2016-10-16 16:25] LABS: Large Platelets 1+
[2016-10-16 16:26] LABS: Diff Status Complete; Platelet Estimate Consistent w Auto; Poikilocytosis 1+
[2016-10-16 16:45] LABS: Anion Gap 17 mmol/L; Blood Urea Nitrogen 55 mg/dL (7-17); Calcium 8.6 mg/dL (8.4-10.2); Carbon Dioxide 32 mmol/L (22-30); Glucose 234 mg/dL (65-100); Potassium 4.4 mmol/L (3.6-5.0); Sodium 146 mmol/L (137-145)
--- NOTE | 2016-10-16 17:26 | Progress Note ---
Assessment and Plan Assessment and plan: The patient is a 41-year-old female with a history of sickle cell disease who was admitted for total hip arthroplasty for avascular necrosis of the left hip. She had left total hip arthroplasty on 09/25/2016 and developed acute hypoxemic respiratory failure following the POD 2 likely from ARDS and ultimately required intubation on 09/27/2016. Her hemoglobin level dropped from 8.1-6.9 on 09/30/2016, also noted to have hypokalemia with potassium level 3.1. Hospitalist service consulted for medical management. Patient remained in a I intubated with mechanical ventilation. Her white count continued to trend up. Maintained on sepsis protocol, CT scan of abdomen and pelvis and thorax done without contrast to identify the source for infection. CT scan of the chest was suggestive for possible pneumonia. She is currently on broad- spectrum antibiotics, critically ill with poor prognosis. 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 weaning when patient is more stable - pulmonary following, cont nebulizer, vent support, has completed antibiotics - wean off as tolerated -Pulmonary input appreciated, Sepsis syndrome - Likely from pneumonia - Spiking temp intermittently, wbc count continue to increased continue abx, ID on board VRSA, MRSA PNA -trachial aspirate growing MRSA, VRSA- MDR organism Diffuse alveolar hemorhage high dose steroid initiated Severe anemia - History of thalassemia major - has received multiple prbc transfusion, and received exchange transfusion on 10/10/16 Transfuse to keep Hg above 7.5 - hematology following - Avscular necrosis of the left hip - s/p total left hip arthoplasty on 09/25/16 Hypokalemia -Status post replacement, continue to replete as needed Hypernatremia -Continue free water via gastric tube, improving Hypophosphatemia replace IV and via G tube and recheck CARLYN - likely from sepsis syndrome and ATN - monitor renal function - nephrology following, diuretic doses have been reduced, renal function improving Leukocytosis Most likely leukemoid reaction, improving, hematology input appreciated, flow cytometry has been ordered by the shellfish shucker Prognosis remains guarded; Critical care time 32 minutes Plan discussed with Daughter SILVANA Son: Jordan Love [phone] Son: Gino kodi: [phone] Daughter: Varun Love [phone] Dispo: LTACH History Interval history: patient remains intubated, sedated, Hospitalist Physical - Physical exam Narrative exam: General: Intubated sedated HEENT: MMM, EOMI cardiac: S1-S2 heard lungs: Rhonchorous ventilated breath sounds abdomen: soft, nontender, nondistended bowel sounds positive extremities: no edema clubbing or cyanosis Skin: no rash or lesion Neuro: Intubated, sedated, but is not obeying any commands - Constitutional Vitals: Temp Pulse Resp BP Pulse Ox 98.9 F 92 H 19 107/55 96 10/16/16 12:00 10/16/16 16:23 10/16/16 15:00 10/16/16 16:23 10/16/16 16:23 General appearance: Present: obese Results - Labs CBC & Chem 7: 10/16/16 15:00 10/16/16 15:00 Labs: Laboratory Last Values WBC 22.2 K/mm3 (4.5-11.0) H 10/16/16 15:00 RBC 3.13 M/mm3 (3.65-5.03) L 10/16/16 15:00 Hgb 9.0 gm/dl (10.1-14.3) L 10/16/16 15:00 Hct 28.1 % (30.3-42.9) L 10/16/16 15:00 MCV 90 fl (79-97) 10/16/16 15:00 MCH 29 pg (28-32) 10/16/16 15:00 MCHC 32 % (30-34) 10/16/16 15:00 RDW 15.9 % (13.2-15.2) H 10/16/16 15:00 Plt Count 266 K/mm3 (140-440) 10/16/16 15:00 Lymph % (Auto) 33.3 % (13.4-35.0) 09/20/16 10:35 [place] % (Auto) 5.8 % (0.0-7.3) 10/12/16 06:57 Eos % (Auto) 0.3 % (0.0-4.3) 10/12/16 06:57 Baso % (Auto) 0.7 % (0.0-1.8) 09/20/16 10:35 Lymph # Final Cleaner 10/11/16 12:54 [place] # 2.0 K/mm3 (0.0-0.8) H 10/12/16 06:57 Eos # 0.1 K/mm3 (0.0-0.4) 10/12/16 06:57 Baso # 0.2 K/mm3 (0.0-0.1) H 10/12/16 06:57 Add Manual Diff Complete 10/16/16 15:00 Total Counted 100 10/16/16 15:00 Seg Neutrophils % Final Cleaner 10/16/16 15:00 Seg Neuts % (Manual) 96.0 % (40.0-70.0) H 10/16/16 15:00 Band Neutrophils % 0 % 10/16/16 15:00 Lymphocytes % (Manual) 3.0 % (13.4-35.0) L 10/16/16 15:00 Reactive Lymphs % (Man) 0 % 10/16/16 15:00 Monocytes % (Manual) 1.0 % (0.0-7.3) 10/16/16 15:00 Eosinophils % (Manual) 0 % (0.0-4.3) 10/16/16 15:00 Basophils % (Manual) 0 % (0.0-1.8) 10/16/16 15:00 Metamyelocytes % 0 % 10/16/16 15:00 Myelocytes % 0 % 10/16/16 15:00 Promyelocytes % 0 % 10/16/16 15:00 Blast Cells % 0 % 10/16/16 15:00 Nucleated RBC % 1.0 % (0.0-0.9) H 10/16/16 15:00 Seg Neutrophils # 30.6 K/mm3 (1.8-7.7) H 10/12/16 06:57 Seg Neutrophils # Man 21.3 K/mm3 (1.8-7.7) H 10/16/16 15:00 Band Neutrophils # 0.0 K/mm3 10/16/16 15:00 Abs Lymphs (Manual) 3936 cells/uL (850-3900) H 10/10/16 13:03 Lymphocytes # (Manual) 0.7 K/mm3 (1.2-5.4) L 10/16/16 15:00 Abs React Lymphs (Man) 0.0 K/mm3 10/16/16 15:00 Monocytes # (Manual) 0.2 K/mm3 (0.0-0.8) 10/16/16 15:00 Eosinophils # (Manual) 0.0 K/mm3 (0.0-0.4) 10/16/16 15:00 Basophils # (Manual) 0.0 K/mm3 (0.0-0.1) 10/16/16 15:00 Metamyelocytes # 0.0 K/mm3 10/16/16 15:00 Myelocytes # 0.0 K/mm3 10/16/16 15:00 Promyelocytes # 0.0 K/mm3 10/16/16 15:00 Blast Cells # 0.0 K/mm3 10/16/16 15:00 Pathologist Review 10/10/16 06:00 WBC Morphology Not Reportable 10/16/16 15:00 Hypersegmented Neuts Not Reportable 10/16/16 15:00 Hyposegmented Neuts Not Reportable 10/16/16 15:00 Hypogranular Neuts Not Reportable 10/16/16 15:00 Smudge Cells Not Reportable 10/16/16 15:00 Toxic Granulation Not Reportable 10/16/16 15:00 Toxic Vacuolation Not Reportable 10/16/16 15:00 Dohle Bodies Not Reportable 10/16/16 15:00 Pelger-Huet Anomaly Not Reportable 10/16/16 15:00 Jaspreet Rods Not Reportable 10/16/16 15:00 Platelet Estimate Consistent w auto 10/16/16 15:00 Clumped Platelets Not Reportable 10/16/16 15:00 Plt Clumps, EDTA Not Reportable 10/16/16 15:00 Large Platelets 1+ 10/16/16 15:00 Giant Platelets Not Reportable 10/16/16 15:00 Platelet Satelliting Not Reportable 10/16/16 15:00 Plt Morphology Comment Not Reportable 10/16/16 15:00 RBC Morphology Not Reportable 10/16/16 15:00 Dimorphic RBCs Not Reportable 10/16/16 15:00 Polychromasia Not Reportable 10/16/16 15:00 Hypochromasia Not Reportable 10/16/16 15:00 Poikilocytosis 1+ 10/16/16 15:00 Basophilic Stippling Few 10/10/16 06:00 Anisocytosis 1+ 10/16/16 15:00 Microcytosis Not Reportable 10/16/16 15:00 Macrocytosis Not Reportable 10/16/16 15:00 Spherocytes Not Reportable 10/16/16 15:00 Pappenheimer Bodies Not Reportable 10/16/16 15:00 Sickle Cells Not Reportable 10/16/16 15:00 Target Cells Not Reportable 10/16/16 15:00 Tear Drop Cells Not Reportable 10/16/16 15:00 Ovalocytes Not Reportable 10/16/16 15:00 Stomatocytes 1+ 10/14/16 05:30 Helmet Cells Not Reportable 10/16/16 15:00 Villatoro-Pinon Bodies Not Reportable 10/16/16 15:00 [place] Rings Not Reportable 10/16/16 15:00 Onemo Cells Not Reportable 10/16/16 15:00 Bite Cells Not Reportable 10/16/16 15:00 Crenated Cell Not Reportable 10/16/16 15:00 Elliptocytes Not Reportable 10/16/16 15:00 Acanthocytes (Spur) Not Reportable 10/16/16 15:00 Rouleaux Not Reportable 10/16/16 15:00 Hemoglobin C Crystals Not Reportable 10/16/16 15:00 Schistocytes Not Reportable 10/16/16 15:00 Malaria parasites Not Reportable 10/16/16 15:00 Percent Retic 8.11 % (0.78-2.58) H 09/27/16 22:47 Jeffrey Bodies Not Reportable 10/16/16 15:00 Hem Pathologist Commnt No 10/16/16 15:00 PT 17.6 Sec. (12.2-14.9) H 10/10/16 13:03 INR 1.45 (0.87-1.13) H 10/10/16 13:03 APTT 31.1 Sec. (24.2-36.6) 09/20/16 10:35 D-Dimer 4758.12 ng/mlDDU (0-234) H 09/27/16 22:47 POC ABG pH 7.426 (7.35-7.45) 10/16/16 06:07 POC ABG pCO2 56.8 (35-45) H 10/16/16 06:07 POC ABG pO2 50 (80-105) L 10/16/16 06:07 POC ABG HCO3 37.3 10/16/16 06:07 POC ABG Total CO2 39 10/16/16 06:07 POC ABG O2 Sat 84 10/16/16 06:07 POC ABG Base Excess 13 10/16/16 06:07 FiO2 50 % 10/16/16 06:07 Sodium 146 mmol/L (137-145) H 10/16/16 15:00 Potassium 4.4 mmol/L (3.6-5.0) D 10/16/16 15:00 Chloride 101.0 mmol/L (98-107) 10/16/16 15:00 Carbon Dioxide 32 mmol/L (22-30) H 10/16/16 15:00 Anion Gap 17 mmol/L 10/16/16 15:00 BUN 55 mg/dL (7-17) H 10/16/16 15:00 Creatinine 1.1 mg/dL (0.7-1.2) 10/16/16 15:00 Estimated GFR > 60 ml/min 10/16/16 15:00 BUN/Creatinine Ratio 50.00 % 10/16/16 15:00 Glucose 234 mg/dL (65-100) H 10/16/16 15:00 POC Glucose 237 (70-105) H 10/16/16 11:52 Osmolality 311 Mosm/kg 10/04/16 04:03 Lactic Acid 1.00 mmol/L (0.7-2.0) 10/14/16 00:30 Calcium 8.6 mg/dL (8.4-10.2) 10/16/16 15:00 Phosphorus 3.10 mg/dL (2.5-4.5) D 10/16/16 15:00 Magnesium 2.90 mg/dL (1.7-2.3) H 10/15/16 05:10 Ferritin 782.0 ng/mL (13.0-400.0) H 10/10/16 06:00 Total Bilirubin 1.20 mg/dL (0.1-1.2) 10/04/16 04:03 AST 31 units/L (5-40) 10/04/16 04:03 ALT 33 units/L (7-56) 10/04/16 04:03 Alkaline Phosphatase 100 units/L (35-129) 10/04/16 04:03 Lactate Dehydrogenase 829 units/L (91-180) H 09/27/16 22:47 Total Creatine Kinase 3575 units/L (30-135) H 09/27/16 14:40 CK-MB (CK-2) 11.0 ng/mL (0.0-4.0) H 09/27/16 14:40 CK-MB (CK-2) Rel Index 0.3 (0-4) 09/27/16 14:40 Troponin T < 0.010 ng/mL (0.00-0.029) 09/27/16 14:40 C-Reactive Protein 1.00 mg/dL (0.00-1.30) 10/14/16 00:30 NT-Pro-B Natriuret Pep 2018 pg/mL (0-450) H 09/30/16 14:05 Total Protein 5.6 g/dL (6.3-8.2) L 10/04/16 04:03 Albumin 2.1 g/dL (3.9-5) L 10/04/16 04:03 Albumin/Globulin Ratio 0.6 % 10/04/16 04:03 Triglycerides 407 mg/dL (2-149) H 10/10/16 06:00 Urine Color Yellow (Yellow) 10/03/16 15:54 Urine Turbidity Cloudy (Clear) 10/03/16 15:54 Urine pH 5.0 (5.0-7.0) 10/03/16 15:54 Ur Specific [place] 1.013 (1.003-1.030) 10/03/16 15:54 Urine Protein 30 mg/dl mg/dL (Negative) 10/03/16 15:54 Urine Glucose (UA) Neg mg/dL (Negative) 10/03/16 15:54 Urine Ketones Neg mg/dL (Negative) 10/03/16 15:54 Urine Blood Lg (Negative) 10/03/16 15:54 Urine Nitrite Neg (Negative) 10/03/16 15:54 Urine Bilirubin Neg (Negative) 10/03/16 15:54 Urine Urobilinogen < 2.0 mg/dL (<2.0) 10/03/16 15:54 Ur Leukocyte Esterase Tr (Negative) 10/03/16 15:54 Urine WBC (Auto) 21.0 /HPF (0.0-6.0) H 10/03/16 15:54 Urine RBC (Auto) 65.0 /HPF (0.0-6.0) 10/03/16 15:54 U Epithel Cells (Auto) 2.0 /HPF (0-13.0) 10/03/16 15:54 Urine Bacteria (Auto) 3+ /HPF (Negative) 10/03/16 15:54 Amorphous Crystals 1+ 10/03/16 15:54 Urine Mucus Few /HPF 10/03/16 15:54 Urine Creatinine 63.2 mg/dL (0.1-20.0) H 10/03/16 15:54 Urine Sodium 20 mEq/L 10/03/16 15:54 Urine Total Protein 67 mg/dL (5-11.8) H 10/03/16 15:54 Vancomycin Trough 45.5 ug/mL (5.0-20.0) H 10/04/16 12:39 Random Vancomycin 14.9 ug/mL (0-40.0) 10/07/16 05:25 Lymph Enumerat CD4/CD8 2.87 (0.86-5.00) 10/10/16 13:03 % CD3 Cells 73 % (57-85) 10/10/16 13:03 Absolute CD3 Count 2879 cells/uL (840-3060) 10/10/16 13:03 % CD4 Cells 55 % (30-61) 10/10/16 13:03 Absolute CD4 Count 2178 cells/uL (490-1740) H 10/10/16 13:03 % CD8 Cells 19 % (12-42) 10/10/16 13:03 Absolute CD8 Count 759 cells/uL (180-1170) 10/10/16 13:03 % CD19 Cells 21 % (6-29) 10/10/16 13:03 Absolute CD19 Count 824 cells/uL (110-660) H 10/10/16 13:03 Flow Intrp 16+ Markers Scanned into [facility] rec 10/08/16 04:00 Flow Cytometry Interp Scanned into med rec 10/08/16 04:00 Blood Type O POSITIVE 10/09/16 10:00 Antibody Screen TNR 10/01/16 00:55 DEACON Antibody Screen Negative 10/09/16 10:00 Crossmatch See Detail 10/09/16 10:00
[2016-10-16] MEDS: fentaNYL DRIP Premix 2,000 MCG/100 ML BAG IV SCH (18:23)
--- NOTE | 2016-10-16 22:12 | Consultation ---
History of Present Illness - Reason for Consult Consult date: 10/16/16 - History of Present Illness Patient see/examined, still responding to name calling ,even more. so today, and even, following simple comands. Past History Past Medical History: anemia (sickle cell anemia) Social history: no significant social history Family history: no significant family history Medications and Allergies Allergies Allergy/AdvReac Type Severity Reaction Status Date / Time No Known Allergies Allergy Unverified 10/13/13 13:21 Home Medications Medication Instructions Recorded Confirmed Last Taken Type Folic Acid [Folvite] 1 mg PO QDAY 10/13/13 09/18/16 09/18/16 History oxyCODONE /ACETAMINOPHEN [Percocet 1 tab PO Q6HR PRN #10 tablet 10/13/1309/18/16 Rx 5/325 mg] Promethazine [Phenergan] 25 mg PO Q6H PRN 08/16/14 09/18/16 09/18/16 History valACYclovir [Valtrex] 500 mg PO DAILY 08/16/14 09/18/16 09/18/16 History Active Meds: Active Medications Acetaminophen (Tylenol) 650 mg PO Q4H PRN PRN Reason: Pain MILD(1-3)/Fever >100.5/PALACIOS Last Admin: 10/07/16 18:13 Dose: 650 mg Albuterol/Ipratropium (Duoneb 0.5 Mg-3 Mg/3 Ml Soln) 1 ampul IH Q6HRT [facility] Last Admin: 10/16/16 19:51 Dose: 1 ampul Lipase/Protease/Amylase (Fritz Mayers 10,500 Unit) 1 each FEEDTUBE PRN PRN PRN Reason: For Clogged Feeding Tube Arformoterol Tartrate (Brovana Nebu) 15 mcg IH Q12HRT [facility] Last Admin: 10/16/16 19:51 Dose: 15 mcg Aspirin (Aspirin) 325 mg PO QDAY [facility] Last Admin: 10/16/16 10:29 Dose: 325 mg Budesonide (Pulmicort) 0.5 mg IH Q12HRT [facility] Last Admin: 10/16/16 19:51 Dose: 0.5 mg Diphenhydramine HCl (Benadryl) 12.5 mg IV Q4H PRN PRN Reason: Itching Last Admin: 09/30/16 07:02 Dose: 12.5 mg Enoxaparin Sodium (Lovenox) 40 mg SUB-Q QDAY [facility] Last Admin: 10/16/16 10:30 Dose: 40 mg Famotidine (Pepcid) 20 mg PO BID [facility] Last Admin: 10/16/16 22:02 Dose: 20 mg Folic Acid (Folvite) 1 mg PO QDAY [facility] Last Admin: 10/16/16 10:29 Dose: 1 mg Furosemide (Lasix) 20 mg IV DAILY [facility] Last Admin: 10/16/16 10:29 Dose: 20 mg Hydrophilic Ointment (Vaseline Lip Therapy) 1 applic TP Q2HR PRN PRN Reason: Dry Lips Fentanyl Citrate (Fentanyl Drip Premix) 2,000 mcg in 100 mls @ 4.649 mls/hr IV TITR [facility]; 1 MCG/KG/HR PRN Reason: Protocol Last Admin: 10/16/16 18:23 Dose: 2 mcg/kg/hr, 9.299 mls/hr Midazolam HCl 100 mg/ Sodium (Chloride) 100 mls @ 2 mls/hr IV TITR [facility]; 2 MG/HR PRN Reason: Protocol Last Admin: 10/04/16 12:54 Dose: 2 mg/hr, 2 mls/hr Dextrose (D5w) 1,000 mls @ 50 mls/hr IV DIRECT [facility] Last Admin: 10/16/16 05:30 Dose: 50 mls/hr Propofol (Diprivan 10 Mg/Ml) 1,000 mg in 100 mls @ 3.045 mls/hr IV TITR [facility]; 5 MCG/KG/MIN PRN Reason: Protocol Last Admin: 10/15/16 23:41 Dose: 8 mcg/kg/min, 4.872 mls/hr Insulin Detemir (Levemir) 10 units SUB-Q DAILY [facility] Last Admin: 10/16/16 12:14 Dose: 10 units Insulin Human Regular (Novolin R) 0 units SUB-Q Q6HR [facility] PRN Reason: Protocol Last Admin: 10/16/16 18:17 Dose: 3 units Linezolid (Zyvox) 600 mg PO Q12HR [facility] PRN Reason: Protocol Last Admin: 10/16/16 22:02 Dose: 600 mg Methylprednisolone Sodium Succinate (Solu-Medrol) 125 mg IV Q6H [facility] Last Admin: 10/16/16 22:01 Dose: 125 mg Multi-Ingred Cream/Lotion/Oil/Oint (Artificial Tears Ophth Oint) 1 applic OU Q4HR PRN PRN Reason: Dry Eye(s) Multivitamins (Theragran Tab) 1 each PO QDAY [facility] Last Admin: 10/16/16 10:29 Dose: 1 each Ondansetron HCl (Zofran) 4 mg IV Q8H PRN PRN Reason: Nausea And Vomiting Last Admin: 09/29/16 23:07 Dose: 4 mg Promethazine HCl (Phenergan) 25 mg SC Q6H PRN PRN Reason: Nausea And Vomiting Last Admin: 09/25/16 22:05 Dose: 25 mg Senna (Senokot) 17.2 mg PO DAILY [facility] Last Admin: 10/16/16 10:45 Dose: Not Given Simple Syrup (Simple Syrup) 15 ml FEEDTUBE PRN PRN PRN Reason: Hypoglycemia Simple Syrup (Simple Syrup) 30 ml FEEDTUBE PRN PRN PRN Reason: Hypoglycemia Sodium Bicarbonate (Sodium Bicarbonate) 325 mg FEEDTUBE PRN PRN PRN Reason: For Clogged Feeding Tube Sodium Chloride (Sodium Chloride Flush Syringe 10 Ml) 10 ml IV PRN PRN PRN Reason: LINE FLUSH Tramadol HCl (Ultram) 50 mg PO Q4H PRN PRN Reason: Pain, Moderate (4-6) Last Admin: 10/06/16 21:54 Dose: 50 mg Valacyclovir HCl (Valtrex) 500 mg PO DAILY [facility] Last Admin: 10/16/16 10:29 Dose: 500 mg Zolpidem Tartrate (Ambien) 5 mg PO QHS PRN PRN Reason: Sleep Review of Systems Constitutional: other (on the vent.) Breasts: deferred Exam - Constitutional Vitals: Temp Pulse Resp BP Pulse Ox 99.6 F 101 H 93 H 126/67 94 10/16/16 20:00 10/16/16 20:00 10/16/16 20:00 10/16/16 20:00 10/16/16 20:00 General appearance: Present: severe distress - EENT Eyes: Present: PERRL ENT: hearing intact, clear oral mucosa - Neck Neck: Present: supple, normal ROM - Respiratory Respiratory effort: other Respiratory: bilateral: other (on the vent.) - Cardiovascular Heart Sounds: Present: S1 & S2. Absent: rub, click - Extremities Extremities: pulses symmetrical, No edema Peripheral Pulses: within normal limits - Abdominal General gastrointestinal: Present: soft, non-tender, non-distended, normal bowel sounds Female genitourinary: Present: deferred - Rectal Rectal Exam: deferred - Integumentary Integumentary: Present: clear, warm, dry Results - Labs CBC & Chem 7: 10/16/16 15:00 10/16/16 15:00 Labs: Abnormal lab results 10/15/16 10/15/16 10/16/16 Range/Units 17:50 23:39 05:51 WBC (4.5-11.0) K/mm3 RBC (3.65-5.03) M/mm3 Hgb (10.1-14.3) gm/dl Hct (30.3-42.9) % RDW (13.2-15.2) % Seg Neuts % (Manual) (40.0-70.0) % Lymphocytes % (Manual) (13.4-35.0) % Nucleated RBC % (0.0-0.9) % Seg Neutrophils # Man (1.8-7.7) K/mm3 Lymphocytes # (Manual) (1.2-5.4) K/mm3 POC ABG pCO2 (35-45) POC ABG pO2 (80-105) Sodium (137-145) mmol/L Carbon Dioxide (22-30) mmol/L BUN (7-17) mg/dL Glucose (65-100) mg/dL POC Glucose 210 H 291 H 216 H (70-105) 10/16/16 10/16/16 10/16/16 Range/Units 06:07 11:52 15:00 WBC 22.2 H (4.5-11.0) K/mm3 RBC 3.13 L (3.65-5.03) M/mm3 Hgb 9.0 L (10.1-14.3) gm/dl Hct 28.1 L (30.3-42.9) % RDW 15.9 H (13.2-15.2) % Seg Neuts % (Manual) 96.0 H (40.0-70.0) % Lymphocytes % (Manual) 3.0 L (13.4-35.0) % Nucleated RBC % 1.0 H (0.0-0.9) % Seg Neutrophils # Man 21.3 H (1.8-7.7) K/mm3 Lymphocytes # (Manual) 0.7 L (1.2-5.4) K/mm3 POC ABG pCO2 56.8 H (35-45) POC ABG pO2 50 L (80-105) Sodium (137-145) mmol/L Carbon Dioxide (22-30) mmol/L BUN (7-17) mg/dL Glucose (65-100) mg/dL POC Glucose 237 H (70-105) 10/16/16 10/16/16 Range/Units 15:00 17:28 WBC (4.5-11.0) K/mm3 RBC (3.65-5.03) M/mm3 Hgb (10.1-14.3) gm/dl Hct (30.3-42.9) % RDW (13.2-15.2) % Seg Neuts % (Manual) (40.0-70.0) % Lymphocytes % (Manual) (13.4-35.0) % Nucleated RBC % (0.0-0.9) % Seg Neutrophils # Man (1.8-7.7) K/mm3 Lymphocytes # (Manual) (1.2-5.4) K/mm3 POC ABG pCO2 (35-45) POC ABG pO2 (80-105) Sodium 146 H (137-145) mmol/L Carbon Dioxide 32 H (22-30) mmol/L BUN 55 H (7-17) mg/dL Glucose 234 H (65-100) mg/dL POC Glucose 258 H (70-105) Assessment and Plan - Patient Problems (1) Sepsis Current Visit: Yes Status: Acute Qualifiers: Sepsis type: sepsis due to unspecified organism Qualified Code(s): A41.9 - Sepsis, unspecified organism Plan to address problem: SEE w/up in the notes. No improvement so far. worsening sepsis. Slight improvement (2) Sleep apnea syndrome Current Visit: Yes Status: Acute Qualifiers: Sleep apnea type: S Plan to address problem: oxygen/BIPAP management. Patient now in full resp failure, and on the vent. (3) UTI (urinary tract infection) Current Visit: Yes Status: Acute Qualifiers: Urinary tract infection type: U Hematuria presence: H Indwelling urinary catheter type: I Encounter type: E Plan to address problem: patient already on abx iv. may need culture sent. culture no growth. (4) Anemia Current Visit: Yes Status: Acute Qualifiers: Anemia type: A Iron deficiency anemia type: I Vitamin B12 deficiency anemia type: V Folate deficiency anemia type: F Bone marrow failure anemia type: B Hemolytic anemia type: H Other causes of anemia: O Plan to address problem: will transfuse if hgb 7.5 or less. no new issues at this time. May transfuse if further drop. (5) Leukocytosis Current Visit: Yes Status: Acute Qualifiers: Leukocytosis type: L Plan to address problem: will order flow, and try leukophoresis. instead, exchange transfusion is done today. improving.
[2016-10-17] MEDS: DIPRIVAN 10 MG/ML 1,000 MG/100 ML BOTTLE IV SCH (02:21)
[2016-10-17] MEDS: D5W 1,000 ML IV SCH ×2 (02:22→23:04)
[2016-10-17] MEDS: DUONEB 0.5 MG-3 MG/3 ML SOLN IH SCH ×3 (03:45→21:07)
[2016-10-17 05:18] LABS: Anion Gap 17 mmol/L; BUN/Creatinine Ratio 55.55; Blood Urea Nitrogen 50 mg/dL (7-17); Calcium 8.7 mg/dL (8.4-10.2); Carbon Dioxide 34 mmol/L (22-30); Chloride 103.1 mmol/L (98-107); Glucose 203 mg/dL (65-100); Potassium 4.7 mmol/L (3.6-5.0); Sodium 149 mmol/L (137-145)
[2016-10-17 05:50] LABS: Hemoglobin 8.9 gm/dl (10.1-14.3); Mean Corpuscular HGB Conc 32 % (30-34); Mean Corpuscular Hemoglobin 28 pg (28-32); Mean Corpuscular Volume 88 fl (79-97); Mean Platelet Volume 10.7 fl (6-12); Platelet Count 313 K/mm3 (140-440); Red Blood Count 3.18 M/mm3 (3.65-5.03); White Blood Count 21.4 K/mm3 (4.5-11.0)
[2016-10-17 07:06] LABS: ISTAT Base Excess 16; ISTAT HCO3 40.4; ISTAT PCO2 64.3 (35-45); ISTAT PH 7.406 (7.35-7.45); ISTAT PO2 72 (80-105); ISTAT SO2 94; ISTAT TCO2 42
[2016-10-17 08:04] LABS: Basophils % (Manual) 0 % (0.0-1.8); Blastocytes % (Manual) 0 %; Eosinophils % (Manual) 0 % (0.0-4.3); Total Cells Counted Percent 0
[2016-10-17 08:05] LABS: Anisocytosis 1+; Basophilic Stippling 1+; Hypochromasia 1+; Poikilocytosis 1+; Stomatocytes 3+
[2016-10-17 08:06] LABS: Diff Status Complete; Polychromasia 2+
--- NOTE | 2016-10-17 08:18 | XRay Report ---
AP CHEST :10/17/16 CLINICAL: Intubated.Follow up respiratory failure. COMPARISON:The previous day. FINDINGS: The endotracheal tube is in satisfactory position. The feeding tube is satisfactory. Right PICC line tip is in the SVC. Diffuse multilobar bilateral airspace disease without significant change compared to the prior exam. No pneumothorax. IMPRESSION: No change.Diffuse bilateral airspace disease.
[2016-10-17] MEDS: LASIX IV SCH ×2 (08:32→11:06)
[2016-10-17] MEDS: LOVENOX SUB-Q SCH ×2 (08:33→11:06)
[2016-10-17] MEDS: ZYVOX PO SCH ×3 (08:33→22:00)
[2016-10-17] MEDS: ASPIRIN PO SCH ×2 (08:33→11:06)
[2016-10-17] MEDS: THERAGRAN Tab PO SCH ×2 (08:34→11:07)
[2016-10-17] MEDS: fentaNYL DRIP Premix 2,000 MCG/100 ML BAG IV SCH ×2 (08:34→18:20)
[2016-10-17] MEDS: FOLVITE PO SCH ×2 (08:36→11:06)
[2016-10-17] MEDS: PEPCID PO SCH ×3 (08:36→23:05)
[2016-10-17] MEDS: VALTREX PO SCH ×2 (08:36→11:07)
[2016-10-17] MEDS: LEVEMIR SUB-Q SCH ×2 (08:40→11:06)
--- NOTE | 2016-10-17 09:43 | Progress Note ---
Assessment and Plan Assessment and plan: The patient is a 41-year-old female with a history of sickle cell disease who was admitted for total hip arthroplasty for avascular necrosis of the left hip. She had left total hip arthroplasty on 09/25/2016 and developed acute hypoxemic respiratory failure following the POD 2 likely from ARDS and ultimately required intubation on 09/27/2016. Her hemoglobin level dropped from 8.1-6.9 on 09/30/2016, also noted to have hypokalemia with potassium level 3.1. Hospitalist service consulted for medical management. Patient remained in a I intubated with mechanical ventilation. Her white count continued to trend up. Maintained on sepsis protocol, CT scan of abdomen and pelvis and thorax done without contrast to identify the source for infection. CT scan of the chest was suggestive for possible pneumonia. She is currently on broad- spectrum antibiotics, critically ill with poor prognosis. Acute hypoxic respiratory failure -has required mechanical vent for > 96 hours -, intubated on 09/27/16 -Bronch on 10/15/16 showed alveolar hemorrhage and trachial aspirate growing MRSA , VRSA- MDR organism, started on zyvox and high dose steroids - on mechanical ventilation, still hoping to wean off vent -consider tracheostomy for terminal clerk weaning when patient is more stable - pulmonary following, cont nebulizer, vent support, has completed antibiotics - wean off as tolerated -Pulmonary input appreciated, goal is to get PEEP below 10 and transfer to LTACH for weaning Sepsis syndrome - Likely from pneumonia - Spiking temp intermittently, wbc count continue to increased continue abx, ID on board VRSA, MRSA PNA -trachial aspirate growing MRSA, VRSA- MDR organism Diffuse alveolar hemorhage high dose steroid initiated Severe anemia - History of thalassemia major - has received multiple prbc transfusion, and received exchange transfusion on 10/10/16 Transfuse to keep Hg above 7.5 - hematology following - Avscular necrosis of the left hip - s/p total left hip arthoplasty on 09/25/16 Hypokalemia -Status post replacement, continue to replete as needed Hypernatremia -Continue free water via gastric tube, improving Hypophosphatemia replace IV and via G tube and recheck CARLYN - likely from sepsis syndrome and ATN - monitor renal function - nephrology following, diuretic doses have been reduced, renal function improving Leukocytosis Most likely leukemoid reaction, improving, hematology input appreciated, flow cytometry has been ordered by the muck boss Prognosis remains guarded; Critical care time 32 minutes Plan discussed with Daughter SILVANA Son: Jordan Love [phone] Son: Gino kodi: [phone] Daughter: Varun Love [phone] Dispo: LTACH History Interval history: patient remains intubated, sedated, Hospitalist Physical - Physical exam Narrative exam: General: Intubated sedated HEENT: MMM, EOMI cardiac: S1-S2 heard lungs: Rhonchorous ventilated breath sounds abdomen: soft, nontender, nondistended bowel sounds positive extremities: no edema clubbing or cyanosis Skin: no rash or lesion Neuro: Intubated, sedated, but is not obeying any commands - Constitutional Vitals: Temp Pulse Resp BP Pulse Ox 98.6 F 103 H 16 108/55 98 10/17/16 08:58 10/17/16 09:30 10/17/16 09:30 10/17/16 09:30 10/17/16 09:30 General appearance: Present: severe distress Results - Labs CBC & Chem 7: 10/17/16 03:56 10/17/16 05:00 Labs: Laboratory Last Values WBC 21.4 K/mm3 (4.5-11.0) H 10/17/16 03:56 RBC 3.18 M/mm3 (3.65-5.03) L 10/17/16 03:56 Hgb 8.9 gm/dl (10.1-14.3) L 10/17/16 03:56 Hct 28.0 % (30.3-42.9) L 10/17/16 03:56 MCV 88 fl (79-97) 10/17/16 03:56 MCH 28 pg (28-32) 10/17/16 03:56 MCHC 32 % (30-34) 10/17/16 03:56 RDW 16.0 % (13.2-15.2) H 10/17/16 03:56 Plt Count 313 K/mm3 (140-440) 10/17/16 03:56 Lymph % (Auto) 33.3 % (13.4-35.0) 09/20/16 10:35 [place] % (Auto) 1.5 % (0.0-7.3) 10/17/16 03:56 Eos % (Auto) 0.0 % (0.0-4.3) 10/17/16 03:56 Baso % (Auto) 0.7 % (0.0-1.8) 09/20/16 10:35 Lymph # Batch Mixer 10/11/16 12:54 [place] # 0.3 K/mm3 (0.0-0.8) 10/17/16 03:56 Eos # 0.0 K/mm3 (0.0-0.4) 10/17/16 03:56 Baso # 0.0 K/mm3 (0.0-0.1) 10/17/16 03:56 Add Manual Diff Complete 10/17/16 03:56 Total Counted 100 10/17/16 03:56 Seg Neutrophils % Batch Mixer 10/16/16 15:00 Seg Neuts % (Manual) 98.0 % (40.0-70.0) H 10/17/16 03:56 Band Neutrophils % 0 % 10/17/16 03:56 Lymphocytes % (Manual) 2.0 % (13.4-35.0) L 10/17/16 03:56 Reactive Lymphs % (Man) 0 % 10/17/16 03:56 Monocytes % (Manual) 0 % (0.0-7.3) 10/17/16 03:56 Eosinophils % (Manual) 0 % (0.0-4.3) 10/17/16 03:56 Basophils % (Manual) 0 % (0.0-1.8) 10/17/16 03:56 Metamyelocytes % 0 % 10/17/16 03:56 Myelocytes % 0 % 10/17/16 03:56 Promyelocytes % 0 % 10/17/16 03:56 Blast Cells % 0 % 10/17/16 03:56 Nucleated RBC % 1.0 % (0.0-0.9) H 10/17/16 03:56 Seg Neutrophils # 20.2 K/mm3 (1.8-7.7) H 10/17/16 03:56 Seg Neutrophils # Man 21.0 K/mm3 (1.8-7.7) H 10/17/16 03:56 Band Neutrophils # 0.0 K/mm3 10/17/16 03:56 Abs Lymphs (Manual) 3936 cells/uL (850-3900) H 10/10/16 13:03 Lymphocytes # (Manual) 0.4 K/mm3 (1.2-5.4) L 10/17/16 03:56 Abs React Lymphs (Man) 0.0 K/mm3 10/17/16 03:56 Monocytes # (Manual) 0.0 K/mm3 (0.0-0.8) 10/17/16 03:56 Eosinophils # (Manual) 0.0 K/mm3 (0.0-0.4) 10/17/16 03:56 Basophils # (Manual) 0.0 K/mm3 (0.0-0.1) 10/17/16 03:56 Metamyelocytes # 0.0 K/mm3 10/17/16 03:56 Myelocytes # 0.0 K/mm3 10/17/16 03:56 Promyelocytes # 0.0 K/mm3 10/17/16 03:56 Blast Cells # 0.0 K/mm3 10/17/16 03:56 Pathologist Review 10/10/16 06:00 WBC Morphology Not Reportable 10/17/16 03:56 Hypersegmented Neuts Not Reportable 10/17/16 03:56 Hyposegmented Neuts Not Reportable 10/17/16 03:56 Hypogranular Neuts Not Reportable 10/17/16 03:56 Smudge Cells Not Reportable 10/17/16 03:56 Toxic Granulation Not Reportable 10/17/16 03:56 Toxic Vacuolation Not Reportable 10/17/16 03:56 Dohle Bodies Not Reportable 10/17/16 03:56 Pelger-Huet Anomaly Not Reportable 10/17/16 03:56 Jaspreet Rods Not Reportable 10/17/16 03:56 Platelet Estimate Appears normal 10/17/16 03:56 Clumped Platelets Not Reportable 10/17/16 03:56 Plt Clumps, EDTA Not Reportable 10/17/16 03:56 Large Platelets Not Reportable 10/17/16 03:56 Giant Platelets Not Reportable 10/17/16 03:56 Platelet Satelliting Not Reportable 10/17/16 03:56 Plt Morphology Comment Not Reportable 10/17/16 03:56 RBC Morphology Not Reportable 10/17/16 03:56 Dimorphic RBCs Not Reportable 10/17/16 03:56 Polychromasia 2+ 10/17/16 03:56 Hypochromasia 1+ 10/17/16 03:56 Poikilocytosis 1+ 10/17/16 03:56 Basophilic Stippling 1+ 10/17/16 03:56 Anisocytosis 1+ 10/17/16 03:56 Microcytosis Not Reportable 10/17/16 03:56 Macrocytosis Not Reportable 10/17/16 03:56 Spherocytes Not Reportable 10/17/16 03:56 Pappenheimer Bodies Not Reportable 10/17/16 03:56 Sickle Cells Not Reportable 10/17/16 03:56 Target Cells Not Reportable 10/17/16 03:56 Tear Drop Cells Not Reportable 10/17/16 03:56 Ovalocytes Not Reportable 10/17/16 03:56 Stomatocytes 3+ 10/17/16 03:56 Helmet Cells Not Reportable 10/17/16 03:56 Villatoro-Renwick Bodies Not Reportable 10/17/16 03:56 [place] Rings Not Reportable 10/17/16 03:56 [place] Cells Not Reportable 10/17/16 03:56 Bite Cells Not Reportable 10/17/16 03:56 Crenated Cell Not Reportable 10/17/16 03:56 Elliptocytes Not Reportable 10/17/16 03:56 Acanthocytes (Spur) Not Reportable 10/17/16 03:56 Rouleaux Not Reportable 10/17/16 03:56 Hemoglobin C Crystals Not Reportable 10/17/16 03:56 Schistocytes Not Reportable 10/17/16 03:56 Malaria parasites Not Reportable 10/17/16 03:56 Percent Retic 8.11 % (0.78-2.58) H 09/27/16 22:47 Jeffrey Bodies Not Reportable 10/17/16 03:56 Hem Pathologist Commnt No 10/17/16 03:56 PT 17.6 Sec. (12.2-14.9) H 10/10/16 13:03 INR 1.45 (0.87-1.13) H 10/10/16 13:03 APTT 31.1 Sec. (24.2-36.6) 09/20/16 10:35 D-Dimer 4758.12 ng/mlDDU (0-234) H 09/27/16 22:47 POC ABG pH 7.406 (7.35-7.45) 10/17/16 06:56 POC ABG pCO2 64.3 (35-45) H 10/17/16 06:56 POC ABG pO2 72 (80-105) L 10/17/16 06:56 POC ABG HCO3 40.4 10/17/16 06:56 POC ABG Total CO2 42 10/17/16 06:56 POC ABG O2 Sat 94 10/17/16 06:56 POC ABG Base Excess 16 10/17/16 06:56 FiO2 60 % 10/17/16 06:56 Sodium 149 mmol/L (137-145) H 10/17/16 05:00 Potassium 4.7 mmol/L (3.6-5.0) 10/17/16 05:00 Chloride 103.1 mmol/L (98-107) 10/17/16 05:00 Carbon Dioxide 34 mmol/L (22-30) H 10/17/16 05:00 Anion Gap 17 mmol/L 10/17/16 05:00 BUN 50 mg/dL (7-17) H 10/17/16 05:00 Creatinine 0.9 mg/dL (0.7-1.2) 10/17/16 05:00 Estimated GFR > 60 ml/min 10/17/16 05:00 BUN/Creatinine Ratio 55.55 % 10/17/16 05:00 Glucose 203 mg/dL (65-100) H 10/17/16 05:00 POC Glucose 192 (70-105) H 10/17/16 00:03 Osmolality 311 Mosm/kg 10/04/16 04:03 Lactic Acid 1.00 mmol/L (0.7-2.0) 10/14/16 00:30 Calcium 8.7 mg/dL (8.4-10.2) 10/17/16 05:00 Phosphorus 3.20 mg/dL (2.5-4.5) 10/17/16 05:00 Magnesium 2.90 mg/dL (1.7-2.3) H 10/15/16 05:10 Ferritin 782.0 ng/mL (13.0-400.0) H 10/10/16 06:00 Total Bilirubin 1.20 mg/dL (0.1-1.2) 10/04/16 04:03 AST 31 units/L (5-40) 10/04/16 04:03 ALT 33 units/L (7-56) 10/04/16 04:03 Alkaline Phosphatase 100 units/L (35-129) 10/04/16 04:03 Lactate Dehydrogenase 829 units/L (91-180) H 09/27/16 22:47 Total Creatine Kinase 3575 units/L (30-135) H 09/27/16 14:40 CK-MB (CK-2) 11.0 ng/mL (0.0-4.0) H 09/27/16 14:40 CK-MB (CK-2) Rel Index 0.3 (0-4) 09/27/16 14:40 Troponin T < 0.010 ng/mL (0.00-0.029) 09/27/16 14:40 C-Reactive Protein 1.00 mg/dL (0.00-1.30) 10/14/16 00:30 NT-Pro-B Natriuret Pep 2018 pg/mL (0-450) H 09/30/16 14:05 Total Protein 5.6 g/dL (6.3-8.2) L 10/04/16 04:03 Albumin 2.1 g/dL (3.9-5) L 10/04/16 04:03 Albumin/Globulin Ratio 0.6 % 10/04/16 04:03 Triglycerides 407 mg/dL (2-149) H 10/10/16 06:00 Urine Color Yellow (Yellow) 10/03/16 15:54 Urine Turbidity Cloudy (Clear) 10/03/16 15:54 Urine pH 5.0 (5.0-7.0) 10/03/16 15:54 Ur Specific [place] 1.013 (1.003-1.030) 10/03/16 15:54 Urine Protein 30 mg/dl mg/dL (Negative) 10/03/16 15:54 Urine Glucose (UA) Neg mg/dL (Negative) 10/03/16 15:54 Urine Ketones Neg mg/dL (Negative) 10/03/16 15:54 Urine Blood Lg (Negative) 10/03/16 15:54 Urine Nitrite Neg (Negative) 10/03/16 15:54 Urine Bilirubin Neg (Negative) 10/03/16 15:54 Urine Urobilinogen < 2.0 mg/dL (<2.0) 10/03/16 15:54 Ur Leukocyte Esterase Tr (Negative) 10/03/16 15:54 Urine WBC (Auto) 21.0 /HPF (0.0-6.0) H 10/03/16 15:54 Urine RBC (Auto) 65.0 /HPF (0.0-6.0) 10/03/16 15:54 U Epithel Cells (Auto) 2.0 /HPF (0-13.0) 10/03/16 15:54 Urine Bacteria (Auto) 3+ /HPF (Negative) 10/03/16 15:54 Amorphous Crystals 1+ 10/03/16 15:54 Urine Mucus Few /HPF 10/03/16 15:54 Urine Creatinine 63.2 mg/dL (0.1-20.0) H 10/03/16 15:54 Urine Sodium 20 mEq/L 10/03/16 15:54 Urine Total Protein 67 mg/dL (5-11.8) H 10/03/16 15:54 Vancomycin Trough 45.5 ug/mL (5.0-20.0) H 10/04/16 12:39 Random Vancomycin 14.9 ug/mL (0-40.0) 10/07/16 05:25 Lymph Enumerat CD4/CD8 2.87 (0.86-5.00) 10/10/16 13:03 % CD3 Cells 73 % (57-85) 10/10/16 13:03 Absolute CD3 Count 2879 cells/uL (840-3060) 10/10/16 13:03 % CD4 Cells 55 % (30-61) 10/10/16 13:03 Absolute CD4 Count 2178 cells/uL (490-1740) H 10/10/16 13:03 % CD8 Cells 19 % (12-42) 10/10/16 13:03 Absolute CD8 Count 759 cells/uL (180-1170) 10/10/16 13:03 % CD19 Cells 21 % (6-29) 10/10/16 13:03 Absolute CD19 Count 824 cells/uL (110-660) H 10/10/16 13:03 Flow Intrp 16+ Markers Scanned into med rec 10/08/16 04:00 Flow Cytometry Interp Scanned into med rec 10/08/16 04:00 Blood Type O POSITIVE 10/09/16 10:00 Antibody Screen TNR 10/01/16 00:55 DEACON Antibody Screen Negative 10/09/16 10:00 Crossmatch See Detail 10/09/16 10:00
[2016-10-17] MEDS: BROVANA NEBU IH SCH ×2 (10:00→21:07)
[2016-10-17] MEDS: PULMICORT IH SCH ×2 (10:01→21:07)
[2016-10-17] MEDS: SENOKOT PO SCH (10:05)
--- NOTE | 2016-10-17 11:23 | Progress Note ---
Assessment and Plan - Patient Problems (1) Acute respiratory failure with hypoxia Current Visit: Yes Status: Acute Plan to address problem: - changed back to AC mode - continue lung protective strategies (reduced TV to 400mls) - allow permissive hypercapnia - continue bronchodilators and pulmonary toilet - continue aspiration precautions / VAP bundles - continue to wean oxygen for sats > 90-92% at this point - prn ABG's - keep well sedated at this point with daily sedation vacations - will stop diuretics - s/p exchange blood transfusion - bronchoscopy consistent with Diffuse alveolar hemorhage - continue high dose steroids X 5 days then taper - cover for MRSA with zyvox re: high SHEILA on vancomycin sensitivities (Discussed with ID) (2) ARDS (adult respiratory distress syndrome) Current Visit: Yes Status: Acute Plan to address problem: - 2D ECHO reports normal EF without impaired relaxation - non cardiogenic pulmonary edema - etiology unclear - treating empirically as HCAP - as above otherwise (3) Obesity Current Visit: Yes Status: Acute Qualifiers: Obesity type: O Obesity severity: O Plan to address problem: - weight loss counselled earlier - outpatient sleep clinic evaluation at discharge (4) Sepsis syndrome Current Visit: Yes Status: Acute Plan to address problem: - continue anti-infectives per ID recs - trend CRP / lactate prn - follow BAL studies (5) Anemia Current Visit: Yes Status: Acute Qualifiers: Anemia type: A Iron deficiency anemia type: I Vitamin B12 deficiency anemia type: V Folate deficiency anemia type: F Bone marrow failure anemia type: B Hemolytic anemia type: H Other causes of anemia: O Plan to address problem: - multifactorial - suspect ABLA component - h/o sickle cell - prn PRBC transfusions - hematology following - s/p exchange blood transfusion - likely element from [facility] (6) CARLYN (acute kidney injury) Current Visit: Yes Status: Acute Plan to address problem: - non oliguric - per nephrology recommendations - stopped diuretics today (7) Discharge planning issues Current Visit: Yes Status: Acute Plan to address problem: - hopefully continues to improve and can transfer to LTAC once Peep </= 10 and FiO2 < 60% .....she remains critically ill on life sustaining interventions including MVS and remains at risk for further deterioration including 30' CCT Subjective Date of service: 10/17/16 Principal diagnosis: Acute Hypoxemic Respiratory Failure; ARDS Interval history: Seen and examined at bedside; 24 hour events reviewed; nursing and respiratory care staff consulted; no adverse overnight events reported to me; remains a tenuous wean however able to drop FiO2 back down to 50%; denied any uncontrolled pain; NGTD on BAL Objective Vital Signs - 12hr 10/16/16 10/16/16 10/16/16 23:30 23:41 23:45 Temperature Pulse Rate 102 H 111 H 110 H Pulse Rate [ Anterior Bilateral Throughout] Respiratory 28 H 23 Rate Respiratory Rate [Anterior Bilateral Throughout] Blood Pressure 128/69 128/69 135/77 O2 Sat by Pulse 96 97 91 Oximetry 10/17/16 10/17/16 10/17/16 00:00 00:15 00:30 Temperature 99.9 F H Pulse Rate 107 H 106 H 108 H Pulse Rate [ Anterior Bilateral Throughout] Respiratory 15 16 13 Rate Respiratory Rate [Anterior Bilateral Throughout] Blood Pressure 118/68 128/70 128/69 O2 Sat by Pulse 95 94 96 Oximetry 10/17/16 10/17/16 10/17/16 00:45 01:00 01:15 Temperature Pulse Rate 108 H 107 H 107 H Pulse Rate [ Anterior Bilateral Throughout] Respiratory 14 13 13 Rate Respiratory Rate [Anterior Bilateral Throughout] Blood Pressure 124/66 119/67 115/67 O2 Sat by Pulse 96 97 96 Oximetry 10/17/16 10/17/16 10/17/16 01:30 01:45 02:00 Temperature Pulse Rate 107 H 106 H 106 H Pulse Rate [ 100 H Anterior Bilateral Throughout] Respiratory 13 13 13 Rate Respiratory 21 Rate [Anterior Bilateral Throughout] Blood Pressure 120/64 117/66 103/64 O2 Sat by Pulse 96 96 96 Oximetry 10/17/16 10/17/16 10/17/16 02:15 02:30 02:45 Temperature Pulse Rate 104 H 103 H 102 H Pulse Rate [ Anterior Bilateral Throughout] Respiratory 11 L 13 15 Rate Respiratory Rate [Anterior Bilateral Throughout] Blood Pressure 100/57 111/65 118/64 O2 Sat by Pulse 97 96 96 Oximetry 10/17/16 10/17/16 10/17/16 03:00 03:15 03:30 Temperature Pulse Rate 101 H 102 H 100 H Pulse Rate [ Anterior Bilateral Throughout] Respiratory 14 14 16 Rate Respiratory Rate [Anterior Bilateral Throughout] Blood Pressure 103/55 100/56 104/54 O2 Sat by Pulse 96 97 97 Oximetry 0510/17/16 10/17/16 03:45 03:47 04:00 Temperature 99.8 F H Pulse Rate 100 H 97 H 99 H Pulse Rate [ Anterior Bilateral Throughout] Respiratory 13 18 Rate Respiratory Rate [Anterior Bilateral Throughout] Blood Pressure 93/56 93/56 102/55 O2 Sat by Pulse 95 98 97 Oximetry 10/17/16 10/17/16 10/17/16 04:15 04:30 04:45 Temperature Pulse Rate 97 H 97 H 98 H Pulse Rate [ Anterior Bilateral Throughout] Respiratory 16 12 13 Rate Respiratory Rate [Anterior Bilateral Throughout] Blood Pressure 116/67 115/62 117/65 O2 Sat by Pulse 98 97 98 Oximetry 10/17/16 10/17/16 10/17/16 05:00 05:15 05:30 Temperature Pulse Rate 95 H 102 H 98 H Pulse Rate [ Anterior Bilateral Throughout] Respiratory 13 15 15 Rate Respiratory Rate [Anterior Bilateral Throughout] Blood Pressure 118/63 118/68 124/68 O2 Sat by Pulse 98 98 97 Oximetry 10/17/16 10/17/16 10/17/16 05:45 06:00 06:15 Temperature Pulse Rate 98 H 98 H 98 H Pulse Rate [ Anterior Bilateral Throughout] Respiratory 21 15 15 Rate Respiratory Rate [Anterior Bilateral Throughout] Blood Pressure 117/62 114/63 108/62 O2 Sat by Pulse 97 96 Oximetry 10/17/16 10/17/16 10/17/16 06:30 06:45 07:00 Temperature Pulse Rate 98 H 104 H 105 H Pulse Rate [ Anterior Bilateral Throughout] Respiratory 24 27 H 28 H Rate Respiratory Rate [Anterior Bilateral Throughout] Blood Pressure 113/66 113/65 120/65 O2 Sat by Pulse 96 97 96 Oximetry 10/17/16 10/17/16 10/17/16 07:10 07:20 07:30 Temperature Pulse Rate 110 H 110 H 106 H Pulse Rate [ Anterior Bilateral Throughout] Respiratory 12 22 19 Rate Respiratory Rate [Anterior Bilateral Throughout] Blood Pressure 120/65 122/64 113/55 O2 Sat by Pulse 97 97 97 Oximetry 10/17/16 10/17/16 10/17/16 07:40 07:50 08:00 Temperature 98.6 F Pulse Rate 105 H 104 H 103 H Pulse Rate [ Anterior Bilateral Throughout] Respiratory 18 10 L 15 Rate Respiratory Rate [Anterior Bilateral Throughout] Blood Pressure 113/55 113/60 106/58 O2 Sat by Pulse 97 98 99 Oximetry 10/17/16 10/17/16 10/17/16 08:10 08:20 08:30 Temperature Pulse Rate 99 H 100 H 98 H Pulse Rate [ Anterior Bilateral Throughout] Respiratory 26 H 26 H 26 H Rate Respiratory Rate [Anterior Bilateral Throughout] Blood Pressure 106/58 91/49 89/51 O2 Sat by Pulse 98 98 99 Oximetry 10/17/16 10/17/16 10/17/16 08:45 08:58 09:00 Temperature 98.6 F Pulse Rate 102 H 101 H Pulse Rate [ Anterior Bilateral Throughout] Respiratory 25 H 26 H Rate Respiratory Rate [Anterior Bilateral Throughout] Blood Pressure 116/66 119/65 O2 Sat by Pulse 97 97 Oximetry 10/17/16 10/17/16 10/17/16 09:15 09:30 09:45 Temperature Pulse Rate 102 H 103 H 102 H Pulse Rate [ Anterior Bilateral Throughout] Respiratory 23 16 20 Rate Respiratory Rate [Anterior Bilateral Throughout] Blood Pressure 108/62 108/55 110/50 O2 Sat by Pulse 98 98 98 Oximetry 10/17/16 10/17/16 10/17/16 10:00 10:01 10:15 Temperature Pulse Rate 98 H 98 H Pulse Rate [ 99 H Anterior Bilateral Throughout] Respiratory 30 H 26 H Rate Respiratory 20 Rate [Anterior Bilateral Throughout] Blood Pressure 94/65 86/39 O2 Sat by Pulse 98 100 Oximetry 10/17/16 10/17/16 10:30 10:45 Temperature Pulse Rate 94 H 94 H Pulse Rate [ Anterior Bilateral Throughout] Respiratory 26 H 26 H Rate Respiratory Rate [Anterior Bilateral Throughout] Blood Pressure 88/40 93/46 O2 Sat by Pulse 100 100 Oximetry Constitutional: no acute distress, other (sedated) Eyes: non-icteric ENT: oropharynx moist Neck: supple, no lymphadenopathy Effort: mildly labored Ascultation: Bilateral: diminished breath sounds, rales Cardiovascular: regular rate and rhythm Gastrointestinal: normoactive bowel sounds, soft, non-tender, non-distended Integumentary: normal Extremities: no cyanosis, no edema, pulses normal, no ischemia or petechiae Neurologic: normal mental status, non-focal exam, pupils equal and round, other (follows commands during sedation holidays) Psychiatric: other (sedated now) CBC and BMP: 10/17/16 03:56 10/17/16 05:00 ABG, PT/INR, D-dimer: ABG POC ABG pH 7.406 (7.35-7.45) 10/17/16 06:56 POC ABG pCO2 64.3 (35-45) H 10/17/16 06:56 POC ABG pO2 72 (80-105) L 10/17/16 06:56 POC ABG HCO3 40.4 10/17/16 06:56 POC ABG Total CO2 42 10/17/16 06:56 POC ABG O2 Sat 94 10/17/16 06:56 PT/INR, D-dimer PT 17.6 Sec. (12.2-14.9) H 10/10/16 13:03 INR 1.45 (0.87-1.13) H 10/10/16 13:03 D-Dimer 4758.12 ng/mlDDU (0-234) H 09/27/16 22:47 Abnormal lab findings: Abnormal Labs 09/20/16 09/20/16 09/20/16 10:35 10:35 10:35 WBC 11.7 H RBC Hgb Hct MCV 75 L MCH 24 L RDW 16.6 H Plt Count [place] # Baso # Seg Neutrophils % Seg Neuts % (Manual) Lymphocytes % (Manual) Monocytes % (Manual) Eosinophils % (Manual) Nucleated RBC % Seg Neutrophils # Seg Neutrophils # Man Abs Lymphs (Manual) Lymphocytes # (Manual) Monocytes # (Manual) Eosinophils # (Manual) Percent Retic PT INR 1.14 H D-Dimer POC ABG pH POC ABG pCO2 POC ABG pO2 Sodium Potassium Chloride Carbon Dioxide BUN Creatinine 0.5 L Glucose 115 H POC Glucose Lactic Acid Calcium Phosphorus Magnesium Ferritin Total Bilirubin 2.0 H Lactate Dehydrogenase Total Creatine Kinase CK-MB (CK-2) C-Reactive Protein NT-Pro-B Natriuret Pep Total Protein Albumin Triglycerides Urine WBC (Auto) Urine Creatinine Urine Total Protein Vancomycin Trough Random Vancomycin Absolute CD4 Count Absolute CD19 Count Crossmatch 09/26/16 09/26/16 09/27/16 04:26 04:26 10:26 WBC RBC Hgb 8.9 L Hct 28.0 L MCV MCH RDW Plt Count [place] # Baso # Seg Neutrophils % Seg Neuts % (Manual) Lymphocytes % (Manual) Monocytes % (Manual) Eosinophils % (Manual) Nucleated RBC % Seg Neutrophils # Seg Neutrophils # Man Abs Lymphs (Manual) Lymphocytes # (Manual) Monocytes # (Manual) Eosinophils # (Manual) Percent Retic PT INR D-Dimer POC ABG pH 7.283 L POC ABG pCO2 45.3 H POC ABG pO2 79 L Sodium Potassium Chloride Carbon Dioxide 20 L BUN Creatinine Glucose 129 H POC Glucose Lactic Acid Calcium 7.6 L Phosphorus Magnesium Ferritin Total Bilirubin Lactate Dehydrogenase Total Creatine Kinase CK-MB (CK-2) C-Reactive Protein NT-Pro-B Natriuret Pep Total Protein Albumin Triglycerides Urine WBC (Auto) Urine Creatinine Urine Total Protein Vancomycin Trough Random Vancomycin Absolute CD4 Count Absolute CD19 Count Crossmatch 09/27/16 09/27/16 09/27/16 14:40 14:40 15:14 WBC 39.3 H RBC Hgb 9.3 L Hct 28.9 L MCV 75 L MCH 24 L RDW 18.7 H Plt Count [place] # Baso # Seg Neutrophils % Seg Neuts % (Manual) 93.5 H Lymphocytes % (Manual) 5.0 L Monocytes % (Manual) Eosinophils % (Manual) Nucleated RBC % Seg Neutrophils # Seg Neutrophils # Man 36.7 H Abs Lymphs (Manual) Lymphocytes # (Manual) Monocytes # (Manual) Eosinophils # (Manual) Percent Retic PT INR D-Dimer POC ABG pH POC ABG pCO2 POC ABG pO2 Sodium Potassium Chloride Carbon Dioxide BUN Creatinine Glucose POC Glucose Lactic Acid 2.9 H* Calcium Phosphorus Magnesium Ferritin Total Bilirubin Lactate Dehydrogenase Total Creatine Kinase 3575 H CK-MB (CK-2) 11.0 H C-Reactive Protein 16.10 H NT-Pro-B Natriuret Pep Total Protein Albumin Triglycerides Urine WBC (Auto) Urine Creatinine Urine Total Protein Vancomycin Trough Random Vancomycin Absolute CD4 Count Absolute CD19 Count Crossmatch 09/27/16 09/27/16 09/27/16 18:05 22:47 22:47 WBC RBC Hgb Hct MCV MCH RDW Plt Count [place] # Baso # Seg Neutrophils % Seg Neuts % (Manual) Lymphocytes % (Manual) Monocytes % (Manual) Eosinophils % (Manual) Nucleated RBC % Seg Neutrophils # Seg Neutrophils # Man Abs Lymphs (Manual) Lymphocytes # (Manual) Monocytes # (Manual) Eosinophils # (Manual) Percent Retic PT INR D-Dimer 4758.12 H POC ABG pH POC ABG pCO2 POC ABG pO2 70 L Sodium Potassium Chloride Carbon Dioxide BUN Creatinine Glucose POC Glucose Lactic Acid Calcium Phosphorus Magnesium Ferritin Total Bilirubin Lactate Dehydrogenase 829 H Total Creatine Kinase CK-MB (CK-2) C-Reactive Protein NT-Pro-B Natriuret Pep Total Protein Albumin Triglycerides Urine WBC (Auto) Urine Creatinine Urine Total Protein Vancomycin Trough Random Vancomycin Absolute CD4 Count Absolute CD19 Count Crossmatch 09/27/16 09/28/16 09/28/16 22:47 09:20 10:47 WBC RBC Hgb Hct MCV MCH RDW Plt Count [place] # Baso # Seg Neutrophils % Seg Neuts % (Manual) Lymphocytes % (Manual) Monocytes % (Manual) Eosinophils % (Manual) Nucleated RBC % Seg Neutrophils # Seg Neutrophils # Man Abs Lymphs (Manual) Lymphocytes # (Manual) Monocytes # (Manual) Eosinophils # (Manual) Percent Retic 8.11 H PT INR D-Dimer POC ABG pH POC ABG pCO2 47.2 H POC ABG pO2 70 L Sodium Potassium Chloride Carbon Dioxide BUN Creatinine 0.6 L Glucose 137 H POC Glucose Lactic Acid Calcium Phosphorus Magnesium Ferritin Total Bilirubin Lactate Dehydrogenase Total Creatine Kinase CK-MB (CK-2) C-Reactive Protein NT-Pro-B Natriuret Pep Total Protein Albumin Triglycerides Urine WBC (Auto) Urine Creatinine Urine Total Protein Vancomycin Trough Random Vancomycin Absolute CD4 Count Absolute CD19 Count Crossmatch 09/28/16 09/30/16 09/30/16 10:47 11:01 14:05 WBC 30.3 H RBC 3.27 L Hgb 8.1 L Hct 24.4 L MCV 75 L MCH 25 L RDW 18.9 H Plt Count [place] # Baso # Seg Neutrophils % Seg Neuts % (Manual) Lymphocytes % (Manual) 12.0 L Monocytes % (Manual) Eosinophils % (Manual) Nucleated RBC % 5.0 H Seg Neutrophils # Seg Neutrophils # Man 21.2 H Abs Lymphs (Manual) Lymphocytes # (Manual) Monocytes # (Manual) 1.8 H Eosinophils # (Manual) Percent Retic PT INR D-Dimer POC ABG pH POC ABG pCO2 48.8 H POC ABG pO2 52 L Sodium Potassium Chloride Carbon Dioxide BUN Creatinine Glucose POC Glucose Lactic Acid Calcium Phosphorus Magnesium Ferritin Total Bilirubin Lactate Dehydrogenase Total Creatine Kinase CK-MB (CK-2) C-Reactive Protein NT-Pro-B Natriuret Pep 2018 H Total Protein Albumin Triglycerides Urine WBC (Auto) Urine Creatinine Urine Total Protein Vancomycin Trough Random Vancomycin Absolute CD4 Count Absolute CD19 Count Crossmatch 09/30/16 09/30/16 09/30/16 14:05 14:05 14:05 WBC 22.1 H RBC 2.76 L Hgb 6.9 L Hct 20.6 L MCV 75 L MCH 25 L RDW 18.7 H Plt Count [place] # Baso # Seg Neutrophils % Seg Neuts % (Manual) 74.0 H Lymphocytes % (Manual) 7.0 L Monocytes % (Manual) Eosinophils % (Manual) Nucleated RBC % 52.0 H Seg Neutrophils # Seg Neutrophils # Man 16.4 H Abs Lymphs (Manual) Lymphocytes # (Manual) Monocytes # (Manual) Eosinophils # (Manual) Percent Retic PT INR D-Dimer POC ABG pH POC ABG pCO2 POC ABG pO2 Sodium Potassium 3.1 L Chloride Carbon Dioxide BUN Creatinine 0.5 L Glucose 116 H POC Glucose Lactic Acid Calcium 8.2 L Phosphorus Magnesium Ferritin Total Bilirubin Lactate Dehydrogenase Total Creatine Kinase CK-MB (CK-2) C-Reactive Protein 30.80 H NT-Pro-B Natriuret Pep Total Protein Albumin Triglycerides Urine WBC (Auto) Urine Creatinine Urine Total Protein Vancomycin Trough Random Vancomycin Absolute CD4 Count Absolute CD19 Count Crossmatch 09/30/16 10/01/16 10/01/16 14:33 00:55 00:55 WBC 26.1 H RBC 2.80 L Hgb 6.8 L Hct 20.8 L MCV 74 L MCH 24 L RDW 18.6 H Plt Count [place] # Baso # Seg Neutrophils % Seg Neuts % (Manual) 85.0 H Lymphocytes % (Manual) 11.0 L Monocytes % (Manual) Eosinophils % (Manual) Nucleated RBC % 21.0 H Seg Neutrophils # Seg Neutrophils # Man 22.2 H Abs Lymphs (Manual) Lymphocytes # (Manual) Monocytes # (Manual) 1.0 H Eosinophils # (Manual) Percent Retic PT INR D-Dimer POC ABG pH POC ABG pCO2 47.8 H POC ABG pO2 201 H Sodium Potassium Chloride Carbon Dioxide BUN Creatinine Glucose POC Glucose Lactic Acid Calcium Phosphorus Magnesium Ferritin Total Bilirubin Lactate Dehydrogenase Total Creatine Kinase CK-MB (CK-2) C-Reactive Protein NT-Pro-B Natriuret Pep Total Protein Albumin Triglycerides Urine WBC (Auto) Urine Creatinine Urine Total Protein Vancomycin Trough Random Vancomycin Absolute CD4 Count Absolute CD19 Count Crossmatch See Detail 10/01/16 10/01/16 10/01/16 04:57 05:00 13:01 WBC RBC Hgb Hct MCV MCH RDW Plt Count [place] # Baso # Seg Neutrophils % Seg Neuts % (Manual) Lymphocytes % (Manual) Monocytes % (Manual) Eosinophils % (Manual) Nucleated RBC % Seg Neutrophils # Seg Neutrophils # Man Abs Lymphs (Manual) Lymphocytes # (Manual) Monocytes # (Manual) Eosinophils # (Manual) Percent Retic PT INR D-Dimer POC ABG pH POC ABG pCO2 58.5 H POC ABG pO2 149 H Sodium 149 H Potassium 3.0 L Chloride Carbon Dioxide BUN Creatinine Glucose POC Glucose 120 H Lactic Acid Calcium 8.3 L Phosphorus Magnesium Ferritin Total Bilirubin Lactate Dehydrogenase Total Creatine Kinase CK-MB (CK-2) C-Reactive Protein NT-Pro-B Natriuret Pep Total Protein Albumin Triglycerides Urine WBC (Auto) Urine Creatinine Urine Total Protein Vancomycin Trough Random Vancomycin Absolute CD4 Count Absolute CD19 Count Crossmatch 10/01/16 10/01/16 10/01/16 15:43 17:44 23:37 WBC 27.6 H RBC 3.55 L Hgb 8.9 L Hct 27.6 L D MCV 78 L D MCH 25 L RDW 18.1 H Plt Count [place] # Baso # Seg Neutrophils % Seg Neuts % (Manual) 79.5 H Lymphocytes % (Manual) 8.0 L Monocytes % (Manual) Eosinophils % (Manual) Nucleated RBC % 65.0 H Seg Neutrophils # Seg Neutrophils # Man 21.9 H Abs Lymphs (Manual) Lymphocytes # (Manual) Monocytes # (Manual) 1.0 H Eosinophils # (Manual) Percent Retic PT INR D-Dimer POC ABG pH POC ABG pCO2 POC ABG pO2 Sodium Potassium Chloride Carbon Dioxide BUN Creatinine Glucose POC Glucose 121 H 129 H Lactic Acid Calcium Phosphorus Magnesium Ferritin Total Bilirubin Lactate Dehydrogenase Total Creatine Kinase CK-MB (CK-2) C-Reactive Protein NT-Pro-B Natriuret Pep Total Protein Albumin Triglycerides Urine WBC (Auto) Urine Creatinine Urine Total Protein Vancomycin Trough Random Vancomycin Absolute CD4 Count Absolute CD19 Count Crossmatch 10/02/16 10/02/16 10/02/16 05:05 05:40 06:00 WBC 23.0 H RBC 3.30 L Hgb 8.3 L Hct 25.8 L MCV 78 L MCH 25 L RDW 18.2 H Plt Count [place] # Baso # Seg Neutrophils % Seg Neuts % (Manual) 83.5 H Lymphocytes % (Manual) 4.0 L Monocytes % (Manual) Eosinophils % (Manual) Nucleated RBC % 14.5 H Seg Neutrophils # Seg Neutrophils # Man 25.1 H Abs Lymphs (Manual) Lymphocytes # (Manual) Monocytes # (Manual) 1.7 H Eosinophils # (Manual) Percent Retic PT INR D-Dimer POC ABG pH POC ABG pCO2 50.5 H POC ABG pO2 Sodium Potassium Chloride Carbon Dioxide BUN Creatinine Glucose POC Glucose 123 H Lactic Acid Calcium Phosphorus Magnesium Ferritin Total Bilirubin Lactate Dehydrogenase Total Creatine Kinase CK-MB (CK-2) C-Reactive Protein NT-Pro-B Natriuret Pep Total Protein Albumin Triglycerides Urine WBC (Auto) Urine Creatinine Urine Total Protein Vancomycin Trough Random Vancomycin Absolute CD4 Count Absolute CD19 Count Crossmatch 10/02/16 10/02/16 10/02/16 06:00 11:42 21:52 WBC RBC Hgb Hct MCV MCH RDW Plt Count [place] # Baso # Seg Neutrophils % Seg Neuts % (Manual) Lymphocytes % (Manual) Monocytes % (Manual) Eosinophils % (Manual) Nucleated RBC % Seg Neutrophils # Seg Neutrophils # Man Abs Lymphs (Manual) Lymphocytes # (Manual) Monocytes # (Manual) Eosinophils # (Manual) Percent Retic PT INR D-Dimer POC ABG pH 7.324 L POC ABG pCO2 60.5 H POC ABG pO2 74 L Sodium 150 H Potassium Chloride 108.3 H Carbon Dioxide BUN 20 H Creatinine 1.4 H D Glucose 117 H POC Glucose 135 H Lactic Acid Calcium Phosphorus Magnesium Ferritin Total Bilirubin Lactate Dehydrogenase Total Creatine Kinase CK-MB (CK-2) C-Reactive Protein NT-Pro-B Natriuret Pep Total Protein Albumin Triglycerides Urine WBC (Auto) Urine Creatinine Urine Total Protein Vancomycin Trough Random Vancomycin Absolute CD4 Count Absolute CD19 Count Crossmatch 10/02/16 10/03/16 10/03/16 23:26 05:55 08:17 WBC 32.0 H RBC 3.13 L Hgb 7.9 L Hct 24.6 L MCV MCH 25 L RDW 18.9 H Plt Count 132 L [place] # Baso # Seg Neutrophils % Seg Neuts % (Manual) 75.0 H Lymphocytes % (Manual) 5.0 L Monocytes % (Manual) Eosinophils % (Manual) Nucleated RBC % 26.0 H Seg Neutrophils # Seg Neutrophils # Man 24.0 H Abs Lymphs (Manual) Lymphocytes # (Manual) Monocytes # (Manual) 1.0 H Eosinophils # (Manual) 1.0 H Percent Retic PT INR D-Dimer POC ABG pH POC ABG pCO2 POC ABG pO2 Sodium Potassium Chloride Carbon Dioxide BUN Creatinine Glucose POC Glucose 121 H 145 H Lactic Acid Calcium Phosphorus Magnesium Ferritin Total Bilirubin Lactate Dehydrogenase Total Creatine Kinase CK-MB (CK-2) C-Reactive Protein NT-Pro-B Natriuret Pep Total Protein Albumin Triglycerides Urine WBC (Auto) Urine Creatinine Urine Total Protein Vancomycin Trough Random Vancomycin Absolute CD4 Count Absolute CD19 Count Crossmatch 10/03/16 10/03/16 10/03/16 08:17 09:26 11:34 WBC RBC Hgb Hct MCV MCH RDW Plt Count [place] # Baso # Seg Neutrophils % Seg Neuts % (Manual) Lymphocytes % (Manual) Monocytes % (Manual) Eosinophils % (Manual) Nucleated RBC % Seg Neutrophils # Seg Neutrophils # Man Abs Lymphs (Manual) Lymphocytes # (Manual) Monocytes # (Manual) Eosinophils # (Manual) Percent Retic PT INR D-Dimer POC ABG pH 7.274 L POC ABG pCO2 59.7 H POC ABG pO2 58 L Sodium 147 H Potassium Chloride 107.6 H Carbon Dioxide BUN 31 H Creatinine 1.7 H Glucose 118 H POC Glucose 142 H Lactic Acid Calcium Phosphorus Magnesium Ferritin Total Bilirubin Lactate Dehydrogenase Total Creatine Kinase CK-MB (CK-2) C-Reactive Protein NT-Pro-B Natriuret Pep Total Protein Albumin Triglycerides Urine WBC (Auto) Urine Creatinine Urine Total Protein Vancomycin Trough Random Vancomycin Absolute CD4 Count Absolute CD19 Count Crossmatch 10/03/16 10/03/16 10/03/16 15:54 15:54 16:58 WBC RBC Hgb Hct MCV MCH RDW Plt Count [place] # Baso # Seg Neutrophils % Seg Neuts % (Manual) Lymphocytes % (Manual) Monocytes % (Manual) Eosinophils % (Manual) Nucleated RBC % Seg Neutrophils # Seg Neutrophils # Man Abs Lymphs (Manual) Lymphocytes # (Manual) Monocytes # (Manual) Eosinophils # (Manual) Percent Retic PT INR D-Dimer POC ABG pH POC ABG pCO2 POC ABG pO2 Sodium Potassium Chloride Carbon Dioxide BUN Creatinine Glucose POC Glucose 138 H Lactic Acid Calcium Phosphorus Magnesium Ferritin Total Bilirubin Lactate Dehydrogenase Total Creatine Kinase CK-MB (CK-2) C-Reactive Protein NT-Pro-B Natriuret Pep Total Protein Albumin Triglycerides Urine WBC (Auto) 21.0 H Urine Creatinine 63.2 H Urine Total Protein 67 H Vancomycin Trough Random Vancomycin Absolute CD4 Count Absolute CD19 Count Crossmatch 10/03/16 10/03/16 10/04/16 21:37 23:44 04:00 WBC 30.3 H RBC 2.86 L Hgb 7.3 L Hct 22.6 L MCV MCH 25 L RDW 19.6 H Plt Count 125 L [place] # Baso # Seg Neutrophils % Seg Neuts % (Manual) Lymphocytes % (Manual) 12.0 L Monocytes % (Manual) Eosinophils % (Manual) 5.0 H Nucleated RBC % 30.0 H Seg Neutrophils # Seg Neutrophils # Man 12.7 H Abs Lymphs (Manual) Lymphocytes # (Manual) Monocytes # (Manual) 1.2 H Eosinophils # (Manual) 1.5 H Percent Retic PT INR D-Dimer POC ABG pH 7.271 L POC ABG pCO2 61.7 H POC ABG pO2 77 L Sodium Potassium Chloride Carbon Dioxide BUN Creatinine Glucose POC Glucose 130 H Lactic Acid Calcium Phosphorus Magnesium Ferritin Total Bilirubin Lactate Dehydrogenase Total Creatine Kinase CK-MB (CK-2) C-Reactive Protein NT-Pro-B Natriuret Pep Total Protein Albumin Triglycerides Urine WBC (Auto) Urine Creatinine Urine Total Protein Vancomycin Trough Random Vancomycin Absolute CD4 Count Absolute CD19 Count Crossmatch 10/04/16 10/04/16 10/04/16 04:03 06:02 12:29 WBC RBC Hgb Hct MCV MCH RDW Plt Count [place] # Baso # Seg Neutrophils % Seg Neuts % (Manual) Lymphocytes % (Manual) Monocytes % (Manual) Eosinophils % (Manual) Nucleated RBC % Seg Neutrophils # Seg Neutrophils # Man Abs Lymphs (Manual) Lymphocytes # (Manual) Monocytes # (Manual) Eosinophils # (Manual) Percent Retic PT INR D-Dimer POC ABG pH 7.248 L POC ABG pCO2 62.3 H POC ABG pO2 59 L Sodium Potassium Chloride Carbon Dioxide BUN 40 H Creatinine 1.7 H Glucose 110 H POC Glucose 123 H Lactic Acid Calcium Phosphorus Magnesium Ferritin Total Bilirubin Lactate Dehydrogenase Total Creatine Kinase CK-MB (CK-2) C-Reactive Protein NT-Pro-B Natriuret Pep Total Protein 5.6 L Albumin 2.1 L Triglycerides Urine WBC (Auto) Urine Creatinine Urine Total Protein Vancomycin Trough Random Vancomycin Absolute CD4 Count Absolute CD19 Count Crossmatch 10/04/16 10/04/16 10/04/16 12:39 15:14 17:45 WBC RBC Hgb Hct MCV MCH RDW Plt Count [place] # Baso # Seg Neutrophils % Seg Neuts % (Manual) Lymphocytes % (Manual) Monocytes % (Manual) Eosinophils % (Manual) Nucleated RBC % Seg Neutrophils # Seg Neutrophils # Man Abs Lymphs (Manual) Lymphocytes # (Manual) Monocytes # (Manual) Eosinophils # (Manual) Percent Retic PT INR D-Dimer POC ABG pH POC ABG pCO2 POC ABG pO2 109 H Sodium Potassium Chloride Carbon Dioxide BUN Creatinine Glucose POC Glucose 124 H Lactic Acid Calcium Phosphorus Magnesium Ferritin Total Bilirubin Lactate Dehydrogenase Total Creatine Kinase CK-MB (CK-2) C-Reactive Protein NT-Pro-B Natriuret Pep Total Protein Albumin Triglycerides Urine WBC (Auto) Urine Creatinine Urine Total Protein Vancomycin Trough 45.5 H Random Vancomycin Absolute CD4 Count Absolute CD19 Count Crossmatch 10/04/16 10/04/16 10/05/16 20:13 23:05 01:27 WBC 36.1 H RBC 2.99 L Hgb 7.3 L Hct 23.5 L MCV MCH 25 L RDW 19.6 H Plt Count [place] # Baso # Seg Neutrophils % Seg Neuts % (Manual) Lymphocytes % (Manual) Monocytes % (Manual) Eosinophils % (Manual) Nucleated RBC % Seg Neutrophils # Seg Neutrophils # Man Abs Lymphs (Manual) Lymphocytes # (Manual) Monocytes # (Manual) Eosinophils # (Manual) Percent Retic PT INR D-Dimer POC ABG pH 7.341 L POC ABG pCO2 POC ABG pO2 47 L Sodium Potassium Chloride Carbon Dioxide BUN Creatinine Glucose POC Glucose 127 H Lactic Acid Calcium Phosphorus Magnesium Ferritin Total Bilirubin Lactate Dehydrogenase Total Creatine Kinase CK-MB (CK-2) C-Reactive Protein NT-Pro-B Natriuret Pep Total Protein Albumin Triglycerides Urine WBC (Auto) Urine Creatinine Urine Total Protein Vancomycin Trough Random Vancomycin Absolute CD4 Count Absolute CD19 Count Crossmatch 10/05/16 10/05/16 10/05/16 01:27 03:50 05:00 WBC RBC Hgb Hct MCV MCH RDW Plt Count [place] # Baso # Seg Neutrophils % Seg Neuts % (Manual) Lymphocytes % (Manual) Monocytes % (Manual) Eosinophils % (Manual) Nucleated RBC % Seg Neutrophils # Seg Neutrophils # Man Abs Lymphs (Manual) Lymphocytes # (Manual) Monocytes # (Manual) Eosinophils # (Manual) Percent Retic PT INR D-Dimer POC ABG pH 7.330 L POC ABG pCO2 45.3 H POC ABG pO2 53 L Sodium Potassium Chloride Carbon Dioxide BUN 49 H Creatinine 1.6 H Glucose 112 H POC Glucose Lactic Acid Calcium Phosphorus Magnesium Ferritin Total Bilirubin Lactate Dehydrogenase Total Creatine Kinase CK-MB (CK-2) C-Reactive Protein NT-Pro-B Natriuret Pep Total Protein Albumin Triglycerides Urine WBC (Auto) Urine Creatinine Urine Total Protein Vancomycin Trough Random Vancomycin 43.6 H Absolute CD4 Count Absolute CD19 Count Crossmatch 10/05/16 10/05/16 10/05/16 05:30 12:08 14:00 WBC RBC Hgb Hct MCV MCH RDW Plt Count [place] # Baso # Seg Neutrophils % Seg Neuts % (Manual) Lymphocytes % (Manual) Monocytes % (Manual) Eosinophils % (Manual) Nucleated RBC % Seg Neutrophils # Seg Neutrophils # Man Abs Lymphs (Manual) Lymphocytes # (Manual) Monocytes # (Manual) Eosinophils # (Manual) Percent Retic PT INR D-Dimer POC ABG pH POC ABG pCO2 POC ABG pO2 Sodium Potassium Chloride Carbon Dioxide BUN Creatinine Glucose POC Glucose 141 H 149 H Lactic Acid Calcium Phosphorus Magnesium Ferritin Total Bilirubin Lactate Dehydrogenase Total Creatine Kinase CK-MB (CK-2) C-Reactive Protein 28.40 H NT-Pro-B Natriuret Pep Total Protein Albumin Triglycerides Urine WBC (Auto) Urine Creatinine Urine Total Protein Vancomycin Trough Random Vancomycin Absolute CD4 Count Absolute CD19 Count Crossmatch 10/05/16 10/05/16 10/05/16 15:37 16:41 17:15 WBC RBC Hgb Hct MCV MCH RDW Plt Count [place] # Baso # Seg Neutrophils % Seg Neuts % (Manual) Lymphocytes % (Manual) Monocytes % (Manual) Eosinophils % (Manual) Nucleated RBC % Seg Neutrophils # Seg Neutrophils # Man Abs Lymphs (Manual) Lymphocytes # (Manual) Monocytes # (Manual) Eosinophils # (Manual) Percent Retic PT INR D-Dimer POC ABG pH 7.157 L 7.133 L POC ABG pCO2 75.0 H 80.5 H POC ABG pO2 76 L Sodium Potassium Chloride Carbon Dioxide BUN Creatinine Glucose POC Glucose 151 H Lactic Acid Calcium Phosphorus Magnesium Ferritin Total Bilirubin Lactate Dehydrogenase Total Creatine Kinase CK-MB (CK-2) C-Reactive Protein NT-Pro-B Natriuret Pep Total Protein Albumin Triglycerides Urine WBC (Auto) Urine Creatinine Urine Total Protein Vancomycin Trough Random Vancomycin Absolute CD4 Count Absolute CD19 Count Crossmatch 10/05/16 10/05/16 10/06/16 19:58 23:50 03:57 WBC 45.3 H* RBC 3.08 L Hgb 7.5 L Hct 24.5 L MCV MCH 25 L RDW 20.1 H Plt Count [place] # Baso # Seg Neutrophils % Seg Neuts % (Manual) 24.0 L Lymphocytes % (Manual) 10.0 L Monocytes % (Manual) Eosinophils % (Manual) Nucleated RBC % 36.0 H Seg Neutrophils # Seg Neutrophils # Man 10.9 H Abs Lymphs (Manual) Lymphocytes # (Manual) Monocytes # (Manual) 3.2 H Eosinophils # (Manual) 0.5 H Percent Retic PT INR D-Dimer POC ABG pH 7.198 L POC ABG pCO2 69.5 H POC ABG pO2 Sodium Potassium Chloride Carbon Dioxide BUN Creatinine Glucose POC Glucose 160 H Lactic Acid Calcium Phosphorus Magnesium Ferritin Total Bilirubin Lactate Dehydrogenase Total Creatine Kinase CK-MB (CK-2) C-Reactive Protein NT-Pro-B Natriuret Pep Total Protein Albumin Triglycerides Urine WBC (Auto) Urine Creatinine Urine Total Protein Vancomycin Trough Random Vancomycin Absolute CD4 Count Absolute CD19 Count Crossmatch 10/06/16 10/06/16 10/06/16 03:57 05:38 06:08 WBC RBC Hgb Hct MCV MCH RDW Plt Count [place] # Baso # Seg Neutrophils % Seg Neuts % (Manual) Lymphocytes % (Manual) Monocytes % (Manual) Eosinophils % (Manual) Nucleated RBC % Seg Neutrophils # Seg Neutrophils # Man Abs Lymphs (Manual) Lymphocytes # (Manual) Monocytes # (Manual) Eosinophils # (Manual) Percent Retic PT INR D-Dimer POC ABG pH 7.226 L POC ABG pCO2 63.3 H POC ABG pO2 Sodium 152 H D Potassium Chloride 114.1 H Carbon Dioxide BUN 58 H Creatinine 1.6 H Glucose 123 H POC Glucose 129 H Lactic Acid Calcium Phosphorus Magnesium Ferritin Total Bilirubin Lactate Dehydrogenase Total Creatine Kinase CK-MB (CK-2) C-Reactive Protein NT-Pro-B Natriuret Pep Total Protein Albumin Triglycerides Urine WBC (Auto) Urine Creatinine Urine Total Protein Vancomycin Trough Random Vancomycin Absolute CD4 Count Absolute CD19 Count Crossmatch 10/06/16 10/06/16 10/06/16 11:38 14:31 18:10 WBC RBC Hgb Hct MCV MCH RDW Plt Count [place] # Baso # Seg Neutrophils % Seg Neuts % (Manual) Lymphocytes % (Manual) Monocytes % (Manual) Eosinophils % (Manual) Nucleated RBC % Seg Neutrophils # Seg Neutrophils # Man Abs Lymphs (Manual) Lymphocytes # (Manual) Monocytes # (Manual) Eosinophils # (Manual) Percent Retic PT INR D-Dimer POC ABG pH 7.345 L POC ABG pCO2 49.5 H POC ABG pO2 60 L Sodium Potassium Chloride Carbon Dioxide BUN Creatinine Glucose POC Glucose 126 H 196 H Lactic Acid Calcium Phosphorus Magnesium Ferritin Total Bilirubin Lactate Dehydrogenase Total Creatine Kinase CK-MB (CK-2) C-Reactive Protein NT-Pro-B Natriuret Pep Total Protein Albumin Triglycerides Urine WBC (Auto) Urine Creatinine Urine Total Protein Vancomycin Trough Random Vancomycin Absolute CD4 Count Absolute CD19 Count Crossmatch 10/06/16 10/07/16 10/07/16 21:07 00:55 00:55 WBC 55.1 H* RBC 3.06 L Hgb 7.5 L Hct 24.4 L MCV MCH 24 L RDW 20.7 H Plt Count [place] # Baso # Seg Neutrophils % Seg Neuts % (Manual) Lymphocytes % (Manual) 8.0 L Monocytes % (Manual) 9.0 H Eosinophils % (Manual) Nucleated RBC % 30.0 H Seg Neutrophils # Seg Neutrophils # Man 27.0 H Abs Lymphs (Manual) Lymphocytes # (Manual) Monocytes # (Manual) 5.0 H Eosinophils # (Manual) 0.6 H Percent Retic PT INR D-Dimer POC ABG pH 7.317 L POC ABG pCO2 55.2 H POC ABG pO2 59 L Sodium 148 H Potassium Chloride 110.2 H Carbon Dioxide BUN 56 H Creatinine 1.7 H Glucose 211 H POC Glucose Lactic Acid Calcium Phosphorus Magnesium Ferritin Total Bilirubin Lactate Dehydrogenase Total Creatine Kinase CK-MB (CK-2) C-Reactive Protein NT-Pro-B Natriuret Pep Total Protein Albumin Triglycerides Urine WBC (Auto) Urine Creatinine Urine Total Protein Vancomycin Trough Random Vancomycin Absolute CD4 Count Absolute CD19 Count Crossmatch 10/07/16 10/07/16 10/07/16 01:01 05:20 06:31 WBC RBC Hgb Hct MCV MCH RDW Plt Count [place] # Baso # Seg Neutrophils % Seg Neuts % (Manual) Lymphocytes % (Manual) Monocytes % (Manual) Eosinophils % (Manual) Nucleated RBC % Seg Neutrophils # Seg Neutrophils # Man Abs Lymphs (Manual) Lymphocytes # (Manual) Monocytes # (Manual) Eosinophils # (Manual) Percent Retic PT INR D-Dimer POC ABG pH 7.310 L POC ABG pCO2 55.6 H POC ABG pO2 65 L Sodium Potassium Chloride Carbon Dioxide BUN Creatinine Glucose POC Glucose 249 H 235 H Lactic Acid Calcium Phosphorus Magnesium Ferritin Total Bilirubin Lactate Dehydrogenase Total Creatine Kinase CK-MB (CK-2) C-Reactive Protein NT-Pro-B Natriuret Pep Total Protein Albumin Triglycerides Urine WBC (Auto) Urine Creatinine Urine Total Protein Vancomycin Trough Random Vancomycin Absolute CD4 Count Absolute CD19 Count Crossmatch 10/07/16 10/07/16 10/07/16 12:00 18:04 23:48 WBC RBC Hgb Hct MCV MCH RDW Plt Count [place] # Baso # Seg Neutrophils % Seg Neuts % (Manual) Lymphocytes % (Manual) Monocytes % (Manual) Eosinophils % (Manual) Nucleated RBC % Seg Neutrophils # Seg Neutrophils # Man Abs Lymphs (Manual) Lymphocytes # (Manual) Monocytes # (Manual) Eosinophils # (Manual) Percent Retic PT INR D-Dimer POC ABG pH POC ABG pCO2 POC ABG pO2 Sodium Potassium Chloride Carbon Dioxide BUN Creatinine Glucose POC Glucose 210 H 201 H 163 H Lactic Acid Calcium Phosphorus Magnesium Ferritin Total Bilirubin Lactate Dehydrogenase Total Creatine Kinase CK-MB (CK-2) C-Reactive Protein NT-Pro-B Natriuret Pep Total Protein Albumin Triglycerides Urine WBC (Auto) Urine Creatinine Urine Total Protein Vancomycin Trough Random Vancomycin Absolute CD4 Count Absolute CD19 Count Crossmatch 10/08/16 10/08/16 10/08/16 04:00 04:00 04:10 WBC 58.0 H* RBC 2.95 L Hgb 7.3 L Hct 23.4 L MCV MCH 25 L RDW 20.8 H Plt Count [place] # Baso # Seg Neutrophils % Seg Neuts % (Manual) 75.0 H Lymphocytes % (Manual) 11.0 L Monocytes % (Manual) 8.0 H Eosinophils % (Manual) Nucleated RBC % 30.0 H Seg Neutrophils # Seg Neutrophils # Man 43.5 H Abs Lymphs (Manual) Lymphocytes # (Manual) 6.4 H Monocytes # (Manual) 4.6 H Eosinophils # (Manual) 0.6 H Percent Retic PT INR D-Dimer POC ABG pH POC ABG pCO2 POC ABG pO2 Sodium 152 H Potassium Chloride 111.4 H Carbon Dioxide BUN 59 H Creatinine 1.6 H Glucose 190 H POC Glucose 214 H Lactic Acid Calcium Phosphorus Magnesium Ferritin Total Bilirubin Lactate Dehydrogenase Total Creatine Kinase CK-MB (CK-2) C-Reactive Protein NT-Pro-B Natriuret Pep Total Protein Albumin Triglycerides Urine WBC (Auto) Urine Creatinine Urine Total Protein Vancomycin Trough Random Vancomycin Absolute CD4 Count Absolute CD19 Count Crossmatch 10/08/16 10/08/16 10/08/16 04:46 12:11 18:35 WBC RBC Hgb Hct MCV MCH RDW Plt Count [place] # Baso # Seg Neutrophils % Seg Neuts % (Manual) Lymphocytes % (Manual) Monocytes % (Manual) Eosinophils % (Manual) Nucleated RBC % Seg Neutrophils # Seg Neutrophils # Man Abs Lymphs (Manual) Lymphocytes # (Manual) Monocytes # (Manual) Eosinophils # (Manual) Percent Retic PT INR D-Dimer POC ABG pH POC ABG pCO2 POC ABG pO2 65 L Sodium Potassium Chloride Carbon Dioxide BUN Creatinine Glucose POC Glucose 199 H 187 H Lactic Acid Calcium Phosphorus Magnesium Ferritin Total Bilirubin Lactate Dehydrogenase Total Creatine Kinase CK-MB (CK-2) C-Reactive Protein NT-Pro-B Natriuret Pep Total Protein Albumin Triglycerides Urine WBC (Auto) Urine Creatinine Urine Total Protein Vancomycin Trough Random Vancomycin Absolute CD4 Count Absolute CD19 Count Crossmatch 10/08/16 10/09/16 10/09/16 23:38 04:43 05:38 WBC RBC Hgb Hct MCV MCH RDW Plt Count [place] # Baso # Seg Neutrophils % Seg Neuts % (Manual) Lymphocytes % (Manual) Monocytes % (Manual) Eosinophils % (Manual) Nucleated RBC % Seg Neutrophils # Seg Neutrophils # Man Abs Lymphs (Manual) Lymphocytes # (Manual) Monocytes # (Manual) Eosinophils # (Manual) Percent Retic PT INR D-Dimer POC ABG pH POC ABG pCO2 45.4 H POC ABG pO2 52 L Sodium Potassium Chloride Carbon Dioxide BUN Creatinine Glucose POC Glucose 202 H 182 H Lactic Acid Calcium Phosphorus Magnesium Ferritin Total Bilirubin Lactate Dehydrogenase Total Creatine Kinase CK-MB (CK-2) C-Reactive Protein NT-Pro-B Natriuret Pep Total Protein Albumin Triglycerides Urine WBC (Auto) Urine Creatinine Urine Total Protein Vancomycin Trough Random Vancomycin Absolute CD4 Count Absolute CD19 Count Crossmatch 10/09/16 10/09/16 10/09/16 07:40 07:40 10:00 WBC 37.3 H RBC 2.55 L Hgb 6.4 L Hct 20.7 L MCV MCH 25 L RDW 20.6 H Plt Count [place] # Baso # Seg Neutrophils % Seg Neuts % (Manual) Lymphocytes % (Manual) Monocytes % (Manual) Eosinophils % (Manual) Nucleated RBC % Seg Neutrophils # Seg Neutrophils # Man Abs Lymphs (Manual) Lymphocytes # (Manual) Monocytes # (Manual) Eosinophils # (Manual) Percent Retic PT INR D-Dimer POC ABG pH POC ABG pCO2 POC ABG pO2 Sodium 153 H Potassium 3.3 L Chloride 112.7 H Carbon Dioxide BUN 62 H Creatinine 1.7 H Glucose 146 H POC Glucose Lactic Acid Calcium Phosphorus Magnesium Ferritin Total Bilirubin Lactate Dehydrogenase Total Creatine Kinase CK-MB (CK-2) C-Reactive Protein NT-Pro-B Natriuret Pep Total Protein Albumin Triglycerides Urine WBC (Auto) Urine Creatinine Urine Total Protein Vancomycin Trough Random Vancomycin Absolute CD4 Count Absolute CD19 Count Crossmatch See Detail 10/09/16 10/09/16 10/10/16 12:06 17:08 00:01 WBC RBC Hgb Hct MCV MCH RDW Plt Count [place] # Baso # Seg Neutrophils % Seg Neuts % (Manual) Lymphocytes % (Manual) Monocytes % (Manual) Eosinophils % (Manual) Nucleated RBC % Seg Neutrophils # Seg Neutrophils # Man Abs Lymphs (Manual) Lymphocytes # (Manual) Monocytes # (Manual) Eosinophils # (Manual) Percent Retic PT INR D-Dimer POC ABG pH POC ABG pCO2 POC ABG pO2 Sodium Potassium Chloride Carbon Dioxide BUN Creatinine Glucose POC Glucose 214 H 152 H 189 H Lactic Acid Calcium Phosphorus Magnesium Ferritin Total Bilirubin Lactate Dehydrogenase Total Creatine Kinase CK-MB (CK-2) C-Reactive Protein NT-Pro-B Natriuret Pep Total Protein Albumin Triglycerides Urine WBC (Auto) Urine Creatinine Urine Total Protein Vancomycin Trough Random Vancomycin Absolute CD4 Count Absolute CD19 Count Crossmatch 10/10/16 10/10/16 10/10/16 04:25 05:28 06:00 WBC RBC Hgb Hct MCV MCH RDW Plt Count [place] # Baso # Seg Neutrophils % Seg Neuts % (Manual) Lymphocytes % (Manual) Monocytes % (Manual) Eosinophils % (Manual) Nucleated RBC % Seg Neutrophils # Seg Neutrophils # Man Abs Lymphs (Manual) Lymphocytes # (Manual) Monocytes # (Manual) Eosinophils # (Manual) Percent Retic PT INR D-Dimer POC ABG pH POC ABG pCO2 58.3 H POC ABG pO2 68 L Sodium Potassium Chloride Carbon Dioxide BUN Creatinine Glucose POC Glucose 155 H Lactic Acid Calcium Phosphorus Magnesium Ferritin Total Bilirubin Lactate Dehydrogenase Total Creatine Kinase CK-MB (CK-2) C-Reactive Protein NT-Pro-B Natriuret Pep Total Protein Albumin Triglycerides 407 H Urine WBC (Auto) Urine Creatinine Urine Total Protein Vancomycin Trough Random Vancomycin Absolute CD4 Count Absolute CD19 Count Crossmatch 10/10/16 10/10/16 10/10/16 06:00 06:00 06:00 WBC 38.5 H RBC 3.57 L Hgb 9.3 L Hct 30.1 L D MCV MCH 26 L RDW 22.0 H Plt Count 464 H [place] # Baso # Seg Neutrophils % Seg Neuts % (Manual) 81.0 H Lymphocytes % (Manual) 9.0 L Monocytes % (Manual) Eosinophils % (Manual) Nucleated RBC % 84.0 H Seg Neutrophils # Seg Neutrophils # Man 31.2 H Abs Lymphs (Manual) Lymphocytes # (Manual) Monocytes # (Manual) Eosinophils # (Manual) 1.2 H Percent Retic PT INR D-Dimer POC ABG pH POC ABG pCO2 POC ABG pO2 Sodium 153 H Potassium Chloride 108.3 H Carbon Dioxide 31 H BUN 62 H Creatinine 1.5 H Glucose 160 H POC Glucose Lactic Acid Calcium Phosphorus Magnesium Ferritin 782.0 H Total Bilirubin Lactate Dehydrogenase Total Creatine Kinase CK-MB (CK-2) C-Reactive Protein NT-Pro-B Natriuret Pep Total Protein Albumin Triglycerides Urine WBC (Auto) Urine Creatinine Urine Total Protein Vancomycin Trough Random Vancomycin Absolute CD4 Count Absolute CD19 Count Crossmatch 10/10/16 10/10/16 10/10/16 11:29 13:03 13:03 WBC RBC Hgb Hct MCV MCH RDW Plt Count [place] # Baso # Seg Neutrophils % Seg Neuts % (Manual) Lymphocytes % (Manual) Monocytes % (Manual) Eosinophils % (Manual) Nucleated RBC % Seg Neutrophils # Seg Neutrophils # Man Abs Lymphs (Manual) 3936 H Lymphocytes # (Manual) Monocytes # (Manual) Eosinophils # (Manual) Percent Retic PT 17.6 H INR 1.45 H D-Dimer POC ABG pH POC ABG pCO2 POC ABG pO2 Sodium Potassium Chloride Carbon Dioxide BUN Creatinine Glucose POC Glucose 177 H Lactic Acid Calcium Phosphorus Magnesium Ferritin Total Bilirubin Lactate Dehydrogenase Total Creatine Kinase CK-MB (CK-2) C-Reactive Protein NT-Pro-B Natriuret Pep Total Protein Albumin Triglycerides Urine WBC (Auto) Urine Creatinine Urine Total Protein Vancomycin Trough Random Vancomycin Absolute CD4 Count 2178 H Absolute CD19 Count 824 H Crossmatch 10/10/16 10/11/16 10/11/16 17:38 00:04 05:35 WBC RBC Hgb Hct MCV MCH RDW Plt Count [place] # Baso # Seg Neutrophils % Seg Neuts % (Manual) Lymphocytes % (Manual) Monocytes % (Manual) Eosinophils % (Manual) Nucleated RBC % Seg Neutrophils # Seg Neutrophils # Man Abs Lymphs (Manual) Lymphocytes # (Manual) Monocytes # (Manual) Eosinophils # (Manual) Percent Retic PT INR D-Dimer POC ABG pH POC ABG pCO2 56.6 H POC ABG pO2 63 L Sodium Potassium Chloride Carbon Dioxide BUN Creatinine Glucose POC Glucose 173 H 155 H Lactic Acid Calcium Phosphorus Magnesium Ferritin Total Bilirubin Lactate Dehydrogenase Total Creatine Kinase CK-MB (CK-2) C-Reactive Protein NT-Pro-B Natriuret Pep Total Protein Albumin Triglycerides Urine WBC (Auto) Urine Creatinine Urine Total Protein Vancomycin Trough Random Vancomycin Absolute CD4 Count Absolute CD19 Count Crossmatch 10/11/16 10/11/16 10/11/16 06:01 11:43 12:54 WBC 31.8 H RBC Hgb Hct MCV MCH RDW 17.8 H Plt Count [place] # Baso # Seg Neutrophils % Seg Neuts % (Manual) 84.0 H Lymphocytes % (Manual) 9.0 L Monocytes % (Manual) Eosinophils % (Manual) Nucleated RBC % 28.0 H Seg Neutrophils # Seg Neutrophils # Man 27.1 H Abs Lymphs (Manual) Lymphocytes # (Manual) Monocytes # (Manual) 1.6 H Eosinophils # (Manual) Percent Retic PT INR D-Dimer POC ABG pH POC ABG pCO2 POC ABG pO2 Sodium Potassium Chloride Carbon Dioxide BUN Creatinine Glucose POC Glucose 231 H 185 H Lactic Acid Calcium Phosphorus Magnesium Ferritin Total Bilirubin Lactate Dehydrogenase Total Creatine Kinase CK-MB (CK-2) C-Reactive Protein NT-Pro-B Natriuret Pep Total Protein Albumin Triglycerides Urine WBC (Auto) Urine Creatinine Urine Total Protein Vancomycin Trough Random Vancomycin Absolute CD4 Count Absolute CD19 Count Crossmatch 10/11/16 10/11/16 10/11/16 12:54 14:10 18:02 WBC RBC Hgb Hct MCV MCH RDW Plt Count [place] # Baso # Seg Neutrophils % Seg Neuts % (Manual) Lymphocytes % (Manual) Monocytes % (Manual) Eosinophils % (Manual) Nucleated RBC % Seg Neutrophils # Seg Neutrophils # Man Abs Lymphs (Manual) Lymphocytes # (Manual) Monocytes # (Manual) Eosinophils # (Manual) Percent Retic PT INR D-Dimer POC ABG pH 7.311 L POC ABG pCO2 71.4 H POC ABG pO2 59 L Sodium Potassium Chloride 97.1 L Carbon Dioxide BUN 57 H Creatinine 1.6 H Glucose 369 H POC Glucose 206 H Lactic Acid Calcium 8.2 L Phosphorus Magnesium Ferritin Total Bilirubin Lactate Dehydrogenase Total Creatine Kinase CK-MB (CK-2) C-Reactive Protein NT-Pro-B Natriuret Pep Total Protein Albumin Triglycerides Urine WBC (Auto) Urine Creatinine Urine Total Protein Vancomycin Trough Random Vancomycin Absolute CD4 Count Absolute CD19 Count Crossmatch 10/11/16 10/11/16 10/12/16 20:57 21:23 00:43 WBC RBC Hgb Hct MCV MCH RDW Plt Count [place] # Baso # Seg Neutrophils % Seg Neuts % (Manual) Lymphocytes % (Manual) Monocytes % (Manual) Eosinophils % (Manual) Nucleated RBC % Seg Neutrophils # Seg Neutrophils # Man Abs Lymphs (Manual) Lymphocytes # (Manual) Monocytes # (Manual) Eosinophils # (Manual) Percent Retic PT INR D-Dimer POC ABG pH 7.242 L POC ABG pCO2 88.4 H POC ABG pO2 57 L Sodium Potassium Chloride Carbon Dioxide BUN Creatinine Glucose POC Glucose 212 H Lactic Acid Calcium Phosphorus Magnesium Ferritin Total Bilirubin Lactate Dehydrogenase Total Creatine Kinase CK-MB (CK-2) C-Reactive Protein 3.00 H NT-Pro-B Natriuret Pep Total Protein Albumin Triglycerides Urine WBC (Auto) Urine Creatinine Urine Total Protein Vancomycin Trough Random Vancomycin Absolute CD4 Count Absolute CD19 Count Crossmatch 10/12/16 10/12/16 10/12/16 05:49 06:03 06:57 WBC 37.0 H RBC Hgb Hct MCV MCH RDW 18.0 H Plt Count [place] # 2.0 H Baso # 0.2 H Seg Neutrophils % 86.7 H Seg Neuts % (Manual) 91.5 H Lymphocytes % (Manual) 6.0 L Monocytes % (Manual) Eosinophils % (Manual) Nucleated RBC % 15.5 H Seg Neutrophils # 30.6 H Seg Neutrophils # Man 33.9 H Abs Lymphs (Manual) Lymphocytes # (Manual) Monocytes # (Manual) Eosinophils # (Manual) Percent Retic PT INR D-Dimer POC ABG pH 7.289 L POC ABG pCO2 82.4 H POC ABG pO2 65 L Sodium Potassium Chloride Carbon Dioxide BUN Creatinine Glucose POC Glucose 230 H Lactic Acid Calcium Phosphorus Magnesium Ferritin Total Bilirubin Lactate Dehydrogenase Total Creatine Kinase CK-MB (CK-2) C-Reactive Protein NT-Pro-B Natriuret Pep Total Protein Albumin Triglycerides Urine WBC (Auto) Urine Creatinine Urine Total Protein Vancomycin Trough Random Vancomycin Absolute CD4 Count Absolute CD19 Count Crossmatch 10/12/16 10/12/16 10/12/16 06:57 11:59 17:00 WBC RBC Hgb Hct MCV MCH RDW Plt Count [place] # Baso # Seg Neutrophils % Seg Neuts % (Manual) Lymphocytes % (Manual) Monocytes % (Manual) Eosinophils % (Manual) Nucleated RBC % Seg Neutrophils # Seg Neutrophils # Man Abs Lymphs (Manual) Lymphocytes # (Manual) Monocytes # (Manual) Eosinophils # (Manual) Percent Retic PT INR D-Dimer POC ABG pH POC ABG pCO2 POC ABG pO2 Sodium 151 H D 130 L D Potassium Chloride Carbon Dioxide 32 H BUN 62 H Creatinine 1.6 H Glucose 231 H POC Glucose 222 H Lactic Acid Calcium Phosphorus 4.90 H Magnesium Ferritin Total Bilirubin Lactate Dehydrogenase Total Creatine Kinase CK-MB (CK-2) C-Reactive Protein NT-Pro-B Natriuret Pep Total Protein Albumin Triglycerides Urine WBC (Auto) Urine Creatinine Urine Total Protein Vancomycin Trough Random Vancomycin Absolute CD4 Count Absolute CD19 Count Crossmatch 10/12/16 10/12/16 10/12/16 17:41 22:04 23:25 WBC RBC Hgb Hct MCV MCH RDW Plt Count [place] # Baso # Seg Neutrophils % Seg Neuts % (Manual) Lymphocytes % (Manual) Monocytes % (Manual) Eosinophils % (Manual) Nucleated RBC % Seg Neutrophils # Seg Neutrophils # Man Abs Lymphs (Manual) Lymphocytes # (Manual) Monocytes # (Manual) Eosinophils # (Manual) Percent Retic PT INR D-Dimer POC ABG pH 7.264 L POC ABG pCO2 89.1 H POC ABG pO2 62 L Sodium Potassium Chloride Carbon Dioxide BUN Creatinine Glucose POC Glucose 223 H 160 H Lactic Acid Calcium Phosphorus Magnesium Ferritin Total Bilirubin Lactate Dehydrogenase Total Creatine Kinase CK-MB (CK-2) C-Reactive Protein NT-Pro-B Natriuret Pep Total Protein Albumin Triglycerides Urine WBC (Auto) Urine Creatinine Urine Total Protein Vancomycin Trough Random Vancomycin Absolute CD4 Count Absolute CD19 Count Crossmatch 05/10/13/16 10/13/16 05:30 06:00 06:00 WBC 25.9 H RBC Hgb Hct MCV MCH RDW 18.1 H Plt Count [place] # Baso # Seg Neutrophils % Seg Neuts % (Manual) 85.0 H Lymphocytes % (Manual) 9.0 L Monocytes % (Manual) Eosinophils % (Manual) Nucleated RBC % 6.0 H Seg Neutrophils # Seg Neutrophils # Man 22.0 H Abs Lymphs (Manual) Lymphocytes # (Manual) Monocytes # (Manual) 1.4 H Eosinophils # (Manual) Percent Retic PT INR D-Dimer POC ABG pH 7.281 L POC ABG pCO2 89.6 H POC ABG pO2 63 L Sodium 148 H D Potassium Chloride Carbon Dioxide 36 H BUN 58 H Creatinine 1.3 H Glucose 189 H POC Glucose Lactic Acid Calcium Phosphorus Magnesium Ferritin Total Bilirubin Lactate Dehydrogenase Total Creatine Kinase CK-MB (CK-2) C-Reactive Protein NT-Pro-B Natriuret Pep Total Protein Albumin Triglycerides Urine WBC (Auto) Urine Creatinine Urine Total Protein Vancomycin Trough Random Vancomycin Absolute CD4 Count Absolute CD19 Count Crossmatch 10/13/16 10/13/16 10/13/16 06:20 11:10 17:26 WBC RBC Hgb Hct MCV MCH RDW Plt Count [place] # Baso # Seg Neutrophils % Seg Neuts % (Manual) Lymphocytes % (Manual) Monocytes % (Manual) Eosinophils % (Manual) Nucleated RBC % Seg Neutrophils # Seg Neutrophils # Man Abs Lymphs (Manual) Lymphocytes # (Manual) Monocytes # (Manual) Eosinophils # (Manual) Percent Retic PT INR D-Dimer POC ABG pH POC ABG pCO2 POC ABG pO2 Sodium Potassium Chloride Carbon Dioxide BUN Creatinine Glucose POC Glucose 192 H 198 H 162 H Lactic Acid Calcium Phosphorus Magnesium Ferritin Total Bilirubin Lactate Dehydrogenase Total Creatine Kinase CK-MB (CK-2) C-Reactive Protein NT-Pro-B Natriuret Pep Total Protein Albumin Triglycerides Urine WBC (Auto) Urine Creatinine Urine Total Protein Vancomycin Trough Random Vancomycin Absolute CD4 Count Absolute CD19 Count Crossmatch 10/13/16 10/13/16 10/13/16 20:40 20:57 23:33 WBC RBC Hgb Hct MCV MCH RDW Plt Count [place] # Baso # Seg Neutrophils % Seg Neuts % (Manual) Lymphocytes % (Manual) Monocytes % (Manual) Eosinophils % (Manual) Nucleated RBC % Seg Neutrophils # Seg Neutrophils # Man Abs Lymphs (Manual) Lymphocytes # (Manual) Monocytes # (Manual) Eosinophils # (Manual) Percent Retic PT INR D-Dimer POC ABG pH 7.201 L 7.455 H POC ABG pCO2 111.2 H 54.2 H POC ABG pO2 45 L 57 L Sodium 148 H Potassium Chloride Carbon Dioxide BUN Creatinine Glucose POC Glucose Lactic Acid Calcium Phosphorus Magnesium Ferritin Total Bilirubin Lactate Dehydrogenase Total Creatine Kinase CK-MB (CK-2) C-Reactive Protein NT-Pro-B Natriuret Pep Total Protein Albumin Triglycerides Urine WBC (Auto) Urine Creatinine Urine Total Protein Vancomycin Trough Random Vancomycin Absolute CD4 Count Absolute CD19 Count Crossmatch 10/14/16 10/14/16 10/14/16 00:48 04:12 05:30 WBC 23.1 H RBC 3.49 L Hgb 9.9 L Hct MCV MCH RDW 16.9 H Plt Count [place] # Baso # Seg Neutrophils % Seg Neuts % (Manual) 82.0 H Lymphocytes % (Manual) 9.0 L Monocytes % (Manual) Eosinophils % (Manual) Nucleated RBC % 2.0 H Seg Neutrophils # Seg Neutrophils # Man 18.9 H Abs Lymphs (Manual) Lymphocytes # (Manual) Monocytes # (Manual) 1.4 H Eosinophils # (Manual) Percent Retic PT INR D-Dimer POC ABG pH 7.497 H POC ABG pCO2 49.4 H POC ABG pO2 60 L Sodium Potassium Chloride Carbon Dioxide BUN Creatinine Glucose POC Glucose 147 H Lactic Acid Calcium Phosphorus Magnesium Ferritin Total Bilirubin Lactate Dehydrogenase Total Creatine Kinase CK-MB (CK-2) C-Reactive Protein NT-Pro-B Natriuret Pep Total Protein Albumin Triglycerides Urine WBC (Auto) Urine Creatinine Urine Total Protein Vancomycin Trough Random Vancomycin Absolute CD4 Count Absolute CD19 Count Crossmatch 10/14/16 10/14/16 10/14/16 05:30 05:30 05:53 WBC RBC Hgb Hct MCV MCH RDW Plt Count [place] # Baso # Seg Neutrophils % Seg Neuts % (Manual) Lymphocytes % (Manual) Monocytes % (Manual) Eosinophils % (Manual) Nucleated RBC % Seg Neutrophils # Seg Neutrophils # Man Abs Lymphs (Manual) Lymphocytes # (Manual) Monocytes # (Manual) Eosinophils # (Manual) Percent Retic PT INR D-Dimer POC ABG pH POC ABG pCO2 POC ABG pO2 Sodium 146 H Potassium Chloride Carbon Dioxide 35 H BUN 56 H Creatinine 1.3 H Glucose 155 H POC Glucose 156 H Lactic Acid Calcium Phosphorus 1.90 L D Magnesium 2.90 H Ferritin Total Bilirubin Lactate Dehydrogenase Total Creatine Kinase CK-MB (CK-2) C-Reactive Protein NT-Pro-B Natriuret Pep Total Protein Albumin Triglycerides Urine WBC (Auto) Urine Creatinine Urine Total Protein Vancomycin Trough Random Vancomycin Absolute CD4 Count Absolute CD19 Count Crossmatch 10/14/16 10/14/16 10/14/16 12:05 14:34 17:33 WBC RBC Hgb Hct MCV MCH RDW Plt Count [place] # Baso # Seg Neutrophils % Seg Neuts % (Manual) Lymphocytes % (Manual) Monocytes % (Manual) Eosinophils % (Manual) Nucleated RBC % Seg Neutrophils # Seg Neutrophils # Man Abs Lymphs (Manual) Lymphocytes # (Manual) Monocytes # (Manual) Eosinophils # (Manual) Percent Retic PT INR D-Dimer POC ABG pH POC ABG pCO2 57.4 H POC ABG pO2 177 H Sodium Potassium Chloride Carbon Dioxide BUN Creatinine Glucose POC Glucose 145 H 172 H Lactic Acid Calcium Phosphorus Magnesium Ferritin Total Bilirubin Lactate Dehydrogenase Total Creatine Kinase CK-MB (CK-2) C-Reactive Protein NT-Pro-B Natriuret Pep Total Protein Albumin Triglycerides Urine WBC (Auto) Urine Creatinine Urine Total Protein Vancomycin Trough Random Vancomycin Absolute CD4 Count Absolute CD19 Count Crossmatch 10/14/16 10/14/16 10/15/16 21:57 23:31 05:10 WBC 23.9 H RBC 3.33 L Hgb 9.5 L Hct 29.7 L MCV MCH RDW 16.8 H Plt Count [place] # Baso # Seg Neutrophils % Seg Neuts % (Manual) Lymphocytes % (Manual) Monocytes % (Manual) Eosinophils % (Manual) Nucleated RBC % 4.0 H Seg Neutrophils # Seg Neutrophils # Man 15.3 H Abs Lymphs (Manual) Lymphocytes # (Manual) Monocytes # (Manual) 1.7 H Eosinophils # (Manual) 0.5 H Percent Retic PT INR D-Dimer POC ABG pH POC ABG pCO2 53.6 H POC ABG pO2 60 L Sodium Potassium Chloride Carbon Dioxide BUN Creatinine Glucose POC Glucose 201 H Lactic Acid Calcium Phosphorus Magnesium Ferritin Total Bilirubin Lactate Dehydrogenase Total Creatine Kinase CK-MB (CK-2) C-Reactive Protein NT-Pro-B Natriuret Pep Total Protein Albumin Triglycerides Urine WBC (Auto) Urine Creatinine Urine Total Protein Vancomycin Trough Random Vancomycin Absolute CD4 Count Absolute CD19 Count Crossmatch 10/15/16 10/15/16 10/15/16 05:10 05:10 05:40 WBC RBC Hgb Hct MCV MCH RDW Plt Count [place] # Baso # Seg Neutrophils % Seg Neuts % (Manual) Lymphocytes % (Manual) Monocytes % (Manual) Eosinophils % (Manual) Nucleated RBC % Seg Neutrophils # Seg Neutrophils # Man Abs Lymphs (Manual) Lymphocytes # (Manual) Monocytes # (Manual) Eosinophils # (Manual) Percent Retic PT INR D-Dimer POC ABG pH POC ABG pCO2 POC ABG pO2 Sodium Potassium 3.5 L Chloride Carbon Dioxide 33 H BUN 61 H Creatinine Glucose 127 H POC Glucose 145 H Lactic Acid Calcium 8.2 L Phosphorus 4.90 H D Magnesium 2.90 H Ferritin Total Bilirubin Lactate Dehydrogenase Total Creatine Kinase CK-MB (CK-2) C-Reactive Protein NT-Pro-B Natriuret Pep Total Protein Albumin Triglycerides Urine WBC (Auto) Urine Creatinine Urine Total Protein Vancomycin Trough Random Vancomycin Absolute CD4 Count Absolute CD19 Count Crossmatch 10/15/16 10/15/16 10/15/16 06:17 11:09 17:50 WBC RBC Hgb Hct MCV MCH RDW Plt Count [place] # Baso # Seg Neutrophils % Seg Neuts % (Manual) Lymphocytes % (Manual) Monocytes % (Manual) Eosinophils % (Manual) Nucleated RBC % Seg Neutrophils # Seg Neutrophils # Man Abs Lymphs (Manual) Lymphocytes # (Manual) Monocytes # (Manual) Eosinophils # (Manual) Percent Retic PT INR D-Dimer POC ABG pH POC ABG pCO2 65.2 H POC ABG pO2 Sodium Potassium Chloride Carbon Dioxide BUN Creatinine Glucose POC Glucose 169 H 210 H Lactic Acid Calcium Phosphorus Magnesium Ferritin Total Bilirubin Lactate Dehydrogenase Total Creatine Kinase CK-MB (CK-2) C-Reactive Protein NT-Pro-B Natriuret Pep Total Protein Albumin Triglycerides Urine WBC (Auto) Urine Creatinine Urine Total Protein Vancomycin Trough Random Vancomycin Absolute CD4 Count Absolute CD19 Count Crossmatch 10/15/16 10/16/16 10/16/16 23:39 05:51 06:07 WBC RBC Hgb Hct MCV MCH RDW Plt Count [place] # Baso # Seg Neutrophils % Seg Neuts % (Manual) Lymphocytes % (Manual) Monocytes % (Manual) Eosinophils % (Manual) Nucleated RBC % Seg Neutrophils # Seg Neutrophils # Man Abs Lymphs (Manual) Lymphocytes # (Manual) Monocytes # (Manual) Eosinophils # (Manual) Percent Retic PT INR D-Dimer POC ABG pH POC ABG pCO2 56.8 H POC ABG pO2 50 L Sodium Potassium Chloride Carbon Dioxide BUN Creatinine Glucose POC Glucose 291 H 216 H Lactic Acid Calcium Phosphorus Magnesium Ferritin Total Bilirubin Lactate Dehydrogenase Total Creatine Kinase CK-MB (CK-2) C-Reactive Protein NT-Pro-B Natriuret Pep Total Protein Albumin Triglycerides Urine WBC (Auto) Urine Creatinine Urine Total Protein Vancomycin Trough Random Vancomycin Absolute CD4 Count Absolute CD19 Count Crossmatch 10/16/16 10/16/16 10/16/16 11:52 15:00 15:00 WBC 22.2 H RBC 3.13 L Hgb 9.0 L Hct 28.1 L MCV MCH RDW 15.9 H Plt Count [place] # Baso # Seg Neutrophils % Seg Neuts % (Manual) 96.0 H Lymphocytes % (Manual) 3.0 L Monocytes % (Manual) Eosinophils % (Manual) Nucleated RBC % 1.0 H Seg Neutrophils # Seg Neutrophils # Man 21.3 H Abs Lymphs (Manual) Lymphocytes # (Manual) 0.7 L Monocytes # (Manual) Eosinophils # (Manual) Percent Retic PT INR D-Dimer POC ABG pH POC ABG pCO2 POC ABG pO2 Sodium 146 H Potassium Chloride Carbon Dioxide 32 H BUN 55 H Creatinine Glucose 234 H POC Glucose 237 H Lactic Acid Calcium Phosphorus Magnesium Ferritin Total Bilirubin Lactate Dehydrogenase Total Creatine Kinase CK-MB (CK-2) C-Reactive Protein NT-Pro-B Natriuret Pep Total Protein Albumin Triglycerides Urine WBC (Auto) Urine Creatinine Urine Total Protein Vancomycin Trough Random Vancomycin Absolute CD4 Count Absolute CD19 Count Crossmatch 10/16/16 10/17/16 10/17/16 17:28 00:03 03:56 WBC 21.4 H RBC 3.18 L Hgb 8.9 L Hct 28.0 L MCV MCH RDW 16.0 H Plt Count [place] # Baso # Seg Neutrophils % Seg Neuts % (Manual) 98.0 H Lymphocytes % (Manual) 2.0 L Monocytes % (Manual) Eosinophils % (Manual) Nucleated RBC % 1.0 H Seg Neutrophils # 20.2 H Seg Neutrophils # Man 21.0 H Abs Lymphs (Manual) Lymphocytes # (Manual) 0.4 L Monocytes # (Manual) Eosinophils # (Manual) Percent Retic PT INR D-Dimer POC ABG pH POC ABG pCO2 POC ABG pO2 Sodium Potassium Chloride Carbon Dioxide BUN Creatinine Glucose POC Glucose 258 H 192 H Lactic Acid Calcium Phosphorus Magnesium Ferritin Total Bilirubin Lactate Dehydrogenase Total Creatine Kinase CK-MB (CK-2) C-Reactive Protein NT-Pro-B Natriuret Pep Total Protein Albumin Triglycerides Urine WBC (Auto) Urine Creatinine Urine Total Protein Vancomycin Trough Random Vancomycin Absolute CD4 Count Absolute CD19 Count Crossmatch 10/17/16 10/17/16 05:00 06:56 WBC RBC Hgb Hct MCV MCH RDW Plt Count [place] # Baso # Seg Neutrophils % Seg Neuts % (Manual) Lymphocytes % (Manual) Monocytes % (Manual) Eosinophils % (Manual) Nucleated RBC % Seg Neutrophils # Seg Neutrophils # Man Abs Lymphs (Manual) Lymphocytes # (Manual) Monocytes # (Manual) Eosinophils # (Manual) Percent Retic PT INR D-Dimer POC ABG pH POC ABG pCO2 64.3 H POC ABG pO2 72 L Sodium 149 H Potassium Chloride Carbon Dioxide 34 H BUN 50 H Creatinine Glucose 203 H POC Glucose Lactic Acid Calcium Phosphorus Magnesium Ferritin Total Bilirubin Lactate Dehydrogenase Total Creatine Kinase CK-MB (CK-2) C-Reactive Protein NT-Pro-B Natriuret Pep Total Protein Albumin Triglycerides Urine WBC (Auto) Urine Creatinine Urine Total Protein Vancomycin Trough Random Vancomycin Absolute CD4 Count Absolute CD19 Count Crossmatch Allied health notes reviewed: RT
--- NOTE | 2016-10-17 18:16 | Progress Note ---
Assessment and Plan - Patient Problems (1) Acute respiratory failure with hypoxia Current Visit: Yes Status: Acute Plan to address problem: 1. Continuing Zyvox, especially while on steroids. 2. Slow resolution of leukocytosis. 3. Afebrile. (2) Leukemoid reaction Current Visit: Yes Status: Acute Plan to address problem: Per above. Subjective Date of service: 10/17/16 Principal diagnosis: Acute Hypoxemic Respiratory Failure; ARDS Interval history: Ms. Love remains in the ICU. No new events or clinical changes. Objective - Exam Narrative Exam: intubated - Constitutional Vitals: Vital Signs Temp Pulse Resp BP Pulse Ox 100.1 F H 111 H 18 118/70 89 10/17/16 17:31 10/17/16 17:45 10/17/16 17:45 10/17/16 17:45 10/17/16 17:45 Temperature -Last 24 Hours Temperature 100.1 F Temperature 100.1 F Temperature 99.1 F Temperature 99.1 F Temperature 98.6 F Temperature 98.6 F Temperature 99.8 F Temperature 99.9 F Temperature 99.6 F General appearance: Present: obese - EENT Eyes: no conjunctival injection, exopthalmos ENT: other (D[place]obb and ET tubes in place) - Respiratory Respiratory: bilateral: CTA, negative: rales, rhonchi - Cardiovascular Rhythm: regular (intermittent tahycardia to 100s) Heart Sounds: Present: S1 & S2 Extremities: No edema, normal color - Gastrointestinal General gastrointestinal: Present: soft, non-distended, normal bowel sounds - Genitourinary Female genitourinary: normal (Montes with normal-appearing urine; no apparent vaginal discharge) - Integumentary Integumentary: warm, dry, no rash - Additional findings Additional findings: PICC left arm without inflammation - Labs CBC & Chem 7: 10/17/16 03:56 10/17/16 05:00 Labs: Abnormal lab results 10/16/16 10/17/16 10/17/16 Range/Units 17:28 00:03 03:56 WBC 21.4 H (4.5-11.0) K/mm3 RBC 3.18 L (3.65-5.03) M/mm3 Hgb 8.9 L (10.1-14.3) gm/dl Hct 28.0 L (30.3-42.9) % RDW 16.0 H (13.2-15.2) % Seg Neuts % (Manual) 98.0 H (40.0-70.0) % Lymphocytes % (Manual) 2.0 L (13.4-35.0) % Nucleated RBC % 1.0 H (0.0-0.9) % Seg Neutrophils # 20.2 H (1.8-7.7) K/mm3 Seg Neutrophils # Man 21.0 H (1.8-7.7) K/mm3 Lymphocytes # (Manual) 0.4 L (1.2-5.4) K/mm3 POC ABG pCO2 (35-45) POC ABG pO2 (80-105) Sodium (137-145) mmol/L Carbon Dioxide (22-30) mmol/L BUN (7-17) mg/dL Glucose (65-100) mg/dL POC Glucose 258 H 192 H (70-105) 10/17/16 10/17/16 10/17/16 Range/Units 05:00 06:56 12:27 WBC (4.5-11.0) K/mm3 RBC (3.65-5.03) M/mm3 Hgb (10.1-14.3) gm/dl Hct (30.3-42.9) % RDW (13.2-15.2) % Seg Neuts % (Manual) (40.0-70.0) % Lymphocytes % (Manual) (13.4-35.0) % Nucleated RBC % (0.0-0.9) % Seg Neutrophils # (1.8-7.7) K/mm3 Seg Neutrophils # Man (1.8-7.7) K/mm3 Lymphocytes # (Manual) (1.2-5.4) K/mm3 POC ABG pCO2 64.3 H (35-45) POC ABG pO2 72 L (80-105) Sodium 149 H (137-145) mmol/L Carbon Dioxide 34 H (22-30) mmol/L BUN 50 H (7-17) mg/dL Glucose 203 H (65-100) mg/dL POC Glucose 252 H (70-105)
--- NOTE | 2016-10-17 22:38 | Consultation ---
History of Present Illness - Reason for Consult Consult date: 10/17/16 - History of Present Illness Patient seen/examined, labs reviewed, she continues to improve gradually. Past History Past Medical History: anemia (sickle cell anemia) Social history: no significant social history Family history: no significant family history Medications and Allergies Allergies Allergy/AdvReac Type Severity Reaction Status Date / Time No Known Allergies Allergy Unverified 10/13/13 13:21 Home Medications Medication Instructions Recorded Confirmed Last Taken Type Folic Acid [Folvite] 1 mg PO QDAY 10/13/13 09/18/16 09/18/16 History oxyCODONE /ACETAMINOPHEN [Percocet 1 tab PO Q6HR PRN #10 tablet 10/13/1309/18/16 Rx 5/325 mg] Promethazine [Phenergan] 25 mg PO Q6H PRN 08/16/14 09/18/16 09/18/16 History valACYclovir [Valtrex] 500 mg PO DAILY 08/16/14 09/18/16 09/18/16 History Active Meds: Active Medications Acetaminophen (Tylenol) 650 mg PO Q4H PRN PRN Reason: Pain MILD(1-3)/Fever >100.5/PALACIOS Last Admin: 10/07/16 18:13 Dose: 650 mg Albuterol/Ipratropium (Duoneb 0.5 Mg-3 Mg/3 Ml Soln) 1 ampul IH Q6HRT [facility] Last Admin: 10/17/16 21:07 Dose: 1 ampul Lipase/Protease/Amylase (Pancreaze Dr 10,500 Unit) 1 each FEEDTUBE PRN PRN PRN Reason: For Clogged Feeding Tube Arformoterol Tartrate (Brovana Nebu) 15 mcg IH Q12HRT [facility] Last Admin: 10/17/16 21:07 Dose: 15 mcg Aspirin (Aspirin) 325 mg PO QDAY [facility] Last Admin: 10/17/16 11:06 Dose: Not Given Budesonide (Pulmicort) 0.5 mg IH Q12HRT [facility] Last Admin: 10/17/16 21:07 Dose: 0.5 mg Diphenhydramine HCl (Benadryl) 12.5 mg IV Q4H PRN PRN Reason: Itching Last Admin: 09/30/16 07:02 Dose: 12.5 mg Enoxaparin Sodium (Lovenox) 40 mg SUB-Q QDAY [facility] Last Admin: 10/17/16 11:06 Dose: Not Given Famotidine (Pepcid) 20 mg PO BID [facility] Last Admin: 10/17/16 11:07 Dose: Not Given Folic Acid (Folvite) 1 mg PO QDAY [facility] Last Admin: 10/17/16 11:06 Dose: Not Given Hydrophilic Ointment (Vaseline Lip Therapy) 1 applic TP Q2HR PRN PRN Reason: Dry Lips Fentanyl Citrate (Fentanyl Drip Premix) 2,000 mcg in 100 mls @ 4.649 mls/hr IV TITR SADAF; 1 MCG/KG/HR PRN Reason: Protocol Last Admin: 10/17/16 18:20 Dose: 2 mcg/kg/hr, 9.299 mls/hr Midazolam HCl 100 mg/ Sodium (Chloride) 100 mls @ 2 mls/hr IV TITR SADAF; 2 MG/HR PRN Reason: Protocol Last Admin: 10/04/16 12:54 Dose: 2 mg/hr, 2 mls/hr Dextrose (D5w) 1,000 mls @ 50 mls/hr IV DIRECT [facility] Last Admin: 10/17/16 02:22 Dose: 50 mls/hr Propofol (Diprivan 10 Mg/Ml) 1,000 mg in 100 mls @ 3.045 mls/hr IV TITR SADAF; 5 MCG/KG/MIN PRN Reason: Protocol Last Admin: 10/17/16 02:21 Dose: 5 mcg/kg/min, 3.045 mls/hr Insulin Detemir (Levemir) 10 units SUB-Q DAILY [facility] Last Admin: 10/17/16 11:06 Dose: Not Given Insulin Human Regular (Novolin R) 0 units SUB-Q Q6HR [facility] PRN Reason: Protocol Last Admin: 10/17/16 18:19 Dose: 3 units Linezolid (Zyvox) 600 mg PO Q12HR SADAF PRN Reason: Protocol Last Admin: 10/17/16 11:07 Dose: Not Given Methylprednisolone Sodium Succinate (Solu-Medrol) 125 mg IV Q6H [facility] Last Admin: 10/17/16 13:18 Dose: 125 mg Multi-Ingred Cream/Lotion/Oil/Oint (Artificial Tears Ophth Oint) 1 applic OU Q4HR PRN PRN Reason: Dry Eye(s) Multivitamins (Theragran Tab) 1 each PO QDAY [facility] Last Admin: 10/17/16 11:07 Dose: Not Given Ondansetron HCl (Zofran) 4 mg IV Q8H PRN PRN Reason: Nausea And Vomiting Last Admin: 09/29/16 23:07 Dose: 4 mg Promethazine HCl (Phenergan) 25 mg MA Q6H PRN PRN Reason: Nausea And Vomiting Last Admin: 09/25/16 22:05 Dose: 25 mg Senna (Senokot) 17.2 mg PO DAILY [facility] Last Admin: 10/17/16 10:05 Dose: Not Given Simple Syrup (Simple Syrup) 15 ml FEEDTUBE PRN PRN PRN Reason: Hypoglycemia Simple Syrup (Simple Syrup) 30 ml FEEDTUBE PRN PRN PRN Reason: Hypoglycemia Sodium Bicarbonate (Sodium Bicarbonate) 325 mg FEEDTUBE PRN PRN PRN Reason: For Clogged Feeding Tube Sodium Chloride (Sodium Chloride Flush Syringe 10 Ml) 10 ml IV PRN PRN PRN Reason: LINE FLUSH Tramadol HCl (Ultram) 50 mg PO Q4H PRN PRN Reason: Pain, Moderate (4-6) Last Admin: 10/06/16 21:54 Dose: 50 mg Valacyclovir HCl (Valtrex) 500 mg PO DAILY [facility] Last Admin: 10/17/16 11:07 Dose: Not Given Zolpidem Tartrate (Ambien) 5 mg PO QHS PRN PRN Reason: Sleep Review of Systems Breasts: deferred Respiratory: other (on the vent) Exam - Constitutional Vitals: Temp Pulse Resp BP Pulse Ox 99.1 F 95 H 28 H 119/62 96 10/17/16 19:59 10/17/16 21:29 10/17/16 21:29 10/17/16 20:58 10/17/16 20:58 General appearance: Present: no acute distress, well-nourished - EENT Eyes: Present: PERRL ENT: hearing intact, clear oral mucosa - Neck Neck: Present: supple, normal ROM - Respiratory Respiratory: bilateral: other (on the vent) - Cardiovascular Heart Sounds: Present: S1 & S2. Absent: rub, click - Extremities Extremities: pulses symmetrical, No edema Peripheral Pulses: within normal limits - Abdominal General gastrointestinal: Present: soft, non-tender, non-distended, normal bowel sounds Female genitourinary: Present: deferred - Rectal Rectal Exam: deferred - Integumentary Integumentary: Present: clear, warm, dry Results - Labs CBC & Chem 7: 10/17/16 03:56 10/17/16 05:00 Labs: Abnormal lab results 10/17/16 10/17/16 10/17/16 Range/Units 00:03 03:56 05:00 WBC 21.4 H (4.5-11.0) K/mm3 RBC 3.18 L (3.65-5.03) M/mm3 Hgb 8.9 L (10.1-14.3) gm/dl Hct 28.0 L (30.3-42.9) % RDW 16.0 H (13.2-15.2) % Seg Neuts % (Manual) 98.0 H (40.0-70.0) % Lymphocytes % (Manual) 2.0 L (13.4-35.0) % Nucleated RBC % 1.0 H (0.0-0.9) % Seg Neutrophils # 20.2 H (1.8-7.7) K/mm3 Seg Neutrophils # Man 21.0 H (1.8-7.7) K/mm3 Lymphocytes # (Manual) 0.4 L (1.2-5.4) K/mm3 POC ABG pCO2 (35-45) POC ABG pO2 (80-105) Sodium 149 H (137-145) mmol/L Carbon Dioxide 34 H (22-30) mmol/L BUN 50 H (7-17) mg/dL Glucose 203 H (65-100) mg/dL POC Glucose 192 H (70-105) 10/17/16 10/17/16 10/17/16 Range/Units 06:56 12:27 18:09 WBC (4.5-11.0) K/mm3 RBC (3.65-5.03) M/mm3 Hgb (10.1-14.3) gm/dl Hct (30.3-42.9) % RDW (13.2-15.2) % Seg Neuts % (Manual) (40.0-70.0) % Lymphocytes % (Manual) (13.4-35.0) % Nucleated RBC % (0.0-0.9) % Seg Neutrophils # (1.8-7.7) K/mm3 Seg Neutrophils # Man (1.8-7.7) K/mm3 Lymphocytes # (Manual) (1.2-5.4) K/mm3 POC ABG pCO2 64.3 H (35-45) POC ABG pO2 72 L (80-105) Sodium (137-145) mmol/L Carbon Dioxide (22-30) mmol/L BUN (7-17) mg/dL Glucose (65-100) mg/dL POC Glucose 252 H 275 H (70-105) Assessment and Plan - Patient Problems (1) Sepsis Current Visit: Yes Status: Acute Qualifiers: Sepsis type: sepsis due to unspecified organism Qualified Code(s): A41.9 - Sepsis, unspecified organism Plan to address problem: SEE w/up in the notes. No improvement so far. worsening sepsis. Slight improvement (2) Sleep apnea syndrome Current Visit: Yes Status: Acute Qualifiers: Sleep apnea type: S Plan to address problem: oxygen/BIPAP management. Patient now in full resp failure, and on the vent. (3) UTI (urinary tract infection) Current Visit: Yes Status: Acute Qualifiers: Urinary tract infection type: U Hematuria presence: H Indwelling urinary catheter type: I Encounter type: E Plan to address problem: patient already on abx iv. may need culture sent. culture no growth. (4) Anemia Current Visit: Yes Status: Acute Qualifiers: Anemia type: A Iron deficiency anemia type: I Vitamin B12 deficiency anemia type: V Folate deficiency anemia type: F Bone marrow failure anemia type: B Hemolytic anemia type: H Other causes of anemia: O Plan to address problem: will transfuse if hgb 7.5 or less. no new issues at this time. May transfuse if further drop. (5) Leukocytosis Current Visit: Yes Status: Acute Qualifiers: Leukocytosis type: L Plan to address problem: will order flow, and try leukophoresis. instead, exchange transfusion is done today. improving.
[2016-10-18] MEDS: DUONEB 0.5 MG-3 MG/3 ML SOLN IH SCH ×4 (02:05→20:18)
[2016-10-18] MEDS: ZYVOX PO SCH ×3 (03:50→21:24)
[2016-10-18 05:26] LABS: ISTAT Base Excess 18; ISTAT HCO3 42.7; ISTAT PCO2 66.8 (35-45); ISTAT PH 7.413 (7.35-7.45); ISTAT PO2 59 (80-105); ISTAT SO2 89; ISTAT TCO2 45
[2016-10-18 05:42] LABS: Anion Gap 13 mmol/L; BUN/Creatinine Ratio 75.71; Blood Urea Nitrogen 53 mg/dL (7-17); Calcium 8.7 mg/dL (8.4-10.2); Carbon Dioxide 35 mmol/L (22-30); Chloride 101.5 mmol/L (98-107); Glucose 236 mg/dL (65-100); Potassium 4.9 mmol/L (3.6-5.0); Sodium 145 mmol/L (137-145)
[2016-10-18] MEDS: fentaNYL DRIP Premix 2,000 MCG/100 ML BAG IV SCH ×2 (05:50→15:24)
[2016-10-18 05:54] LABS: Hematocrit 31.5 % (30.3-42.9); Hemoglobin 9.7 gm/dl (10.1-14.3); Mean Corpuscular HGB Conc 31 % (30-34); Mean Corpuscular Hemoglobin 27 pg (28-32); Mean Corpuscular Volume 89 fl (79-97); Platelet Count 405 K/mm3 (140-440); Red Blood Count 3.54 M/mm3 (3.65-5.03); Red Cell Distribution Width 15.8 % (13.2-15.2)
--- NOTE | 2016-10-18 07:26 | XRay Report ---
Single view chest: Compared to 10/17/16. History: Followup of respiratory failure. Findings: Normal cardiomediastinal silhouette. Stable support system. Bilateral diffuse airspace opacities without significant interval change. Impression: No significant interval change.
--- NOTE | 2016-10-18 08:44 | Progress Note ---
Assessment and Plan Assessment and plan: The patient is a 41-year-old female with a history of sickle cell disease who was admitted for total hip arthroplasty for avascular necrosis of the left hip. She had left total hip arthroplasty on 09/25/2016 and developed acute hypoxemic respiratory failure following the POD 2 likely from ARDS and ultimately required intubation on 09/27/2016. Her hemoglobin level dropped from 8.1-6.9 on 09/30/2016, also noted to have hypokalemia with potassium level 3.1. Hospitalist service consulted for medical management. Patient remained in a I intubated with mechanical ventilation. Her white count continued to trend up. Maintained on sepsis protocol, CT scan of abdomen and pelvis and thorax done without contrast to identify the source for infection. CT scan of the chest was suggestive for possible pneumonia. She is currently on broad- spectrum antibiotics, critically ill with poor prognosis. Acute hypoxic respiratory failure -has required mechanical vent for > 96 hours -, intubated on 09/27/16 -Bronch on 10/15/16 showed alveolar hemorrhage and trachial aspirate growing MRSA , VRSA- MDR organism, started on zyvox and high dose steroids - on mechanical ventilation, still hoping to wean off vent -consider tracheostomy for [employer] weaning when patient is more stable - pulmonary following, cont nebulizer, vent support, has completed antibiotics - wean off as tolerated -Pulmonary input appreciated, goal is to get PEEP below 10 and transfer to LTACH for weaning Gram positive Sepsis - Likely from pneumonia - Spiking temp intermittently, wbc count continue to increased continue abx, ID on board VRSA, MRSA PNA, Gram positive sepsis -trachial aspirate growing MRSA, VRSA- MDR organism Diffuse alveolar hemorhage high dose steroid initiated Severe anemia - History of thalassemia major - has received multiple prbc transfusion, and received exchange transfusion on 10/10/16 Transfuse to keep Hg above 7.5 - hematology following - Avscular necrosis of the left hip - s/p total left hip arthoplasty on 09/25/16 Hypokalemia -Status post replacement, continue to replete as needed Hypernatremia -Continue free water via gastric tube, resolved Hypophosphatemia replace IV and via G tube and recheck CARLYN - likely from sepsis syndrome and ATN, now resolving - monitor renal function - nephrology following, diuretic doses have been reduced, renal function improving Leukocytosis Most likely leukemoid reaction, improving, hematology input appreciated, flow cytometry has been ordered by the director of technology Prognosis remains guarded; Critical care time 32 minutes Plan discussed with Daughter SILVANA Son: Jordan Love [phone] Son: Gino kodi: [phone] Daughter: Varun Love [phone] Dispo: LTACH History Interval history: patient remains intubated, sedated, Hospitalist Physical - Physical exam Narrative exam: General: Intubated sedated HEENT: MMM, EOMI cardiac: S1-S2 heard lungs: Rhonchorous ventilated breath sounds abdomen: soft, nontender, nondistended bowel sounds positive extremities: no edema clubbing or cyanosis Skin: no rash or lesion Neuro: Intubated, sedated, but is not obeying any commands - Constitutional Vitals: Temp Pulse Resp BP Pulse Ox 99.4 F 104 H 21 110/63 94 10/18/16 03:49 10/18/16 06:15 10/18/16 06:15 10/18/16 06:15 10/18/16 06:15 General appearance: Present: no acute distress, well-nourished Results - Labs CBC & Chem 7: 10/18/16 05:11 10/18/16 05:11 Labs: Laboratory Last Values WBC 24.0 K/mm3 (4.5-11.0) H 10/18/16 05:11 RBC 3.54 M/mm3 (3.65-5.03) L 10/18/16 05:11 Hgb 9.7 gm/dl (10.1-14.3) L 10/18/16 05:11 Hct 31.5 % (30.3-42.9) 10/18/16 05:11 MCV 89 fl (79-97) 10/18/16 05:11 MCH 27 pg (28-32) L 10/18/16 05:11 MCHC 31 % (30-34) 10/18/16 05:11 RDW 15.8 % (13.2-15.2) H 10/18/16 05:11 Plt Count 405 K/mm3 (140-440) 10/18/16 05:11 Lymph % (Auto) 33.3 % (13.4-35.0) 09/20/16 10:35 [place] % (Auto) 1.5 % (0.0-7.3) 10/17/16 03:56 Eos % (Auto) 0.0 % (0.0-4.3) 10/17/16 03:56 Baso % (Auto) 0.7 % (0.0-1.8) 09/20/16 10:35 Lymph # [employer] 10/11/16 12:54 [place] # 0.3 K/mm3 (0.0-0.8) 10/17/16 03:56 Eos # 0.0 K/mm3 (0.0-0.4) 10/17/16 03:56 Baso # 0.0 K/mm3 (0.0-0.1) 10/17/16 03:56 Add Manual Diff Complete 10/17/16 03:56 Total Counted 100 10/17/16 03:56 Seg Neutrophils % [employer] 10/18/16 05:11 Seg Neuts % (Manual) 98.0 % (40.0-70.0) H 10/17/16 03:56 Band Neutrophils % 0 % 10/17/16 03:56 Lymphocytes % (Manual) 2.0 % (13.4-35.0) L 10/17/16 03:56 Reactive Lymphs % (Man) 0 % 10/17/16 03:56 Monocytes % (Manual) 0 % (0.0-7.3) 10/17/16 03:56 Eosinophils % (Manual) 0 % (0.0-4.3) 10/17/16 03:56 Basophils % (Manual) 0 % (0.0-1.8) 10/17/16 03:56 Metamyelocytes % 0 % 10/17/16 03:56 Myelocytes % 0 % 10/17/16 03:56 Promyelocytes % 0 % 10/17/16 03:56 Blast Cells % 0 % 10/17/16 03:56 Nucleated RBC % 1.0 % (0.0-0.9) H 10/17/16 03:56 Seg Neutrophils # 20.2 K/mm3 (1.8-7.7) H 10/17/16 03:56 Seg Neutrophils # Man 21.0 K/mm3 (1.8-7.7) H 10/17/16 03:56 Band Neutrophils # 0.0 K/mm3 10/17/16 03:56 Abs Lymphs (Manual) 3936 cells/uL (850-3900) H 10/10/16 13:03 Lymphocytes # (Manual) 0.4 K/mm3 (1.2-5.4) L 10/17/16 03:56 Abs React Lymphs (Man) 0.0 K/mm3 10/17/16 03:56 Monocytes # (Manual) 0.0 K/mm3 (0.0-0.8) 10/17/16 03:56 Eosinophils # (Manual) 0.0 K/mm3 (0.0-0.4) 10/17/16 03:56 Basophils # (Manual) 0.0 K/mm3 (0.0-0.1) 10/17/16 03:56 Metamyelocytes # 0.0 K/mm3 10/17/16 03:56 Myelocytes # 0.0 K/mm3 10/17/16 03:56 Promyelocytes # 0.0 K/mm3 10/17/16 03:56 Blast Cells # 0.0 K/mm3 10/17/16 03:56 Pathologist Review 10/10/16 06:00 WBC Morphology Not Reportable 10/17/16 03:56 Hypersegmented Neuts Not Reportable 10/17/16 03:56 Hyposegmented Neuts Not Reportable 10/17/16 03:56 Hypogranular Neuts Not Reportable 10/17/16 03:56 Smudge Cells Not Reportable 10/17/16 03:56 Toxic Granulation Not Reportable 10/17/16 03:56 Toxic Vacuolation Not Reportable 10/17/16 03:56 Dohle Bodies Not Reportable 10/17/16 03:56 Pelger-Huet Anomaly Not Reportable 10/17/16 03:56 Jaspreet Rods Not Reportable 10/17/16 03:56 Platelet Estimate Appears normal 10/17/16 03:56 Clumped Platelets Not Reportable 10/17/16 03:56 Plt Clumps, EDTA Not Reportable 10/17/16 03:56 Large Platelets Not Reportable 10/17/16 03:56 Giant Platelets Not Reportable 10/17/16 03:56 Platelet Satelliting Not Reportable 10/17/16 03:56 Plt Morphology Comment Not Reportable 10/17/16 03:56 RBC Morphology Not Reportable 10/17/16 03:56 Dimorphic RBCs Not Reportable 10/17/16 03:56 Polychromasia 2+ 10/17/16 03:56 Hypochromasia 1+ 10/17/16 03:56 Poikilocytosis 1+ 10/17/16 03:56 Basophilic Stippling 1+ 10/17/16 03:56 Anisocytosis 1+ 10/17/16 03:56 Microcytosis Not Reportable 10/17/16 03:56 Macrocytosis Not Reportable 10/17/16 03:56 Spherocytes Not Reportable 10/17/16 03:56 Pappenheimer Bodies Not Reportable 10/17/16 03:56 Sickle Cells Not Reportable 10/17/16 03:56 Target Cells Not Reportable 10/17/16 03:56 Tear Drop Cells Not Reportable 10/17/16 03:56 Ovalocytes Not Reportable 10/17/16 03:56 Stomatocytes 3+ 10/17/16 03:56 Helmet Cells Not Reportable 10/17/16 03:56 [place] Bodies Not Reportable 10/17/16 03:56 Dana Rings Not Reportable 10/17/16 03:56 Mike Cells Not Reportable 10/17/16 03:56 Bite Cells Not Reportable 10/17/16 03:56 Crenated Cell Not Reportable 10/17/16 03:56 Elliptocytes Not Reportable 10/17/16 03:56 Acanthocytes (Spur) Not Reportable 10/17/16 03:56 Rouleaux Not Reportable 10/17/16 03:56 Hemoglobin C Crystals Not Reportable 10/17/16 03:56 Schistocytes Not Reportable 10/17/16 03:56 Malaria parasites Not Reportable 10/17/16 03:56 Percent Retic 8.11 % (0.78-2.58) H 09/27/16 22:47 Jeffrey Bodies Not Reportable 10/17/16 03:56 Hem Pathologist Commnt No 10/17/16 03:56 PT 17.6 Sec. (12.2-14.9) H 10/10/16 13:03 INR 1.45 (0.87-1.13) H 10/10/16 13:03 APTT 31.1 Sec. (24.2-36.6) 09/20/16 10:35 D-Dimer 4758.12 ng/mlDDU (0-234) H 09/27/16 22:47 POC ABG pH 7.413 (7.35-7.45) 10/18/16 04:45 POC ABG pCO2 66.8 (35-45) H 10/18/16 04:45 POC ABG pO2 59 (80-105) L 10/18/16 04:45 POC ABG HCO3 42.7 10/18/16 04:45 POC ABG Total CO2 45 10/18/16 04:45 POC ABG O2 Sat 89 10/18/16 04:45 POC ABG Base Excess 18 10/18/16 04:45 FiO2 45 % 10/18/16 04:45 Sodium 145 mmol/L (137-145) 10/18/16 05:11 Potassium 4.9 mmol/L (3.6-5.0) 10/18/16 05:11 Chloride 101.5 mmol/L (98-107) 10/18/16 05:11 Carbon Dioxide 35 mmol/L (22-30) H 10/18/16 05:11 Anion Gap 13 mmol/L 10/18/16 05:11 BUN 53 mg/dL (7-17) H 10/18/16 05:11 Creatinine 0.7 mg/dL (0.7-1.2) 10/18/16 05:11 Estimated GFR > 60 ml/min 10/18/16 05:11 BUN/Creatinine Ratio 75.71 % 10/18/16 05:11 Glucose 236 mg/dL (65-100) H 10/18/16 05:11 POC Glucose 232 (70-105) H 10/18/16 05:33 Osmolality 311 Mosm/kg 10/04/16 04:03 Lactic Acid 1.00 mmol/L (0.7-2.0) 10/14/16 00:30 Calcium 8.7 mg/dL (8.4-10.2) 10/18/16 05:11 Phosphorus 3.20 mg/dL (2.5-4.5) 10/17/16 05:00 Magnesium 2.90 mg/dL (1.7-2.3) H 10/15/16 05:10 Ferritin 782.0 ng/mL (13.0-400.0) H 10/10/16 06:00 Total Bilirubin 1.20 mg/dL (0.1-1.2) 10/04/16 04:03 AST 31 units/L (5-40) 10/04/16 04:03 ALT 33 units/L (7-56) 10/04/16 04:03 Alkaline Phosphatase 100 units/L (35-129) 10/04/16 04:03 Lactate Dehydrogenase 829 units/L (91-180) H 09/27/16 22:47 Total Creatine Kinase 3575 units/L (30-135) H 09/27/16 14:40 CK-MB (CK-2) 11.0 ng/mL (0.0-4.0) H 09/27/16 14:40 CK-MB (CK-2) Rel Index 0.3 (0-4) 09/27/16 14:40 Troponin T < 0.010 ng/mL (0.00-0.029) 09/27/16 14:40 C-Reactive Protein 1.00 mg/dL (0.00-1.30) 10/14/16 00:30 NT-Pro-B Natriuret Pep 2018 pg/mL (0-450) H 09/30/16 14:05 Total Protein 5.6 g/dL (6.3-8.2) L 10/04/16 04:03 Albumin 2.1 g/dL (3.9-5) L 10/04/16 04:03 Albumin/Globulin Ratio 0.6 % 10/04/16 04:03 Triglycerides 407 mg/dL (2-149) H 10/10/16 06:00 Urine Color Yellow (Yellow) 10/03/16 15:54 Urine Turbidity Cloudy (Clear) 10/03/16 15:54 Urine pH 5.0 (5.0-7.0) 10/03/16 15:54 Ur Specific [place] 1.013 (1.003-1.030) 10/03/16 15:54 Urine Protein 30 mg/dl mg/dL (Negative) 10/03/16 15:54 Urine Glucose (UA) Neg mg/dL (Negative) 10/03/16 15:54 Urine Ketones Neg mg/dL (Negative) 10/03/16 15:54 Urine Blood Lg (Negative) 10/03/16 15:54 Urine Nitrite Neg (Negative) 10/03/16 15:54 Urine Bilirubin Neg (Negative) 10/03/16 15:54 Urine Urobilinogen < 2.0 mg/dL (<2.0) 10/03/16 15:54 Ur Leukocyte Esterase Tr (Negative) 10/03/16 15:54 Urine WBC (Auto) 21.0 /HPF (0.0-6.0) H 10/03/16 15:54 Urine RBC (Auto) 65.0 /HPF (0.0-6.0) 10/03/16 15:54 U Epithel Cells (Auto) 2.0 /HPF (0-13.0) 10/03/16 15:54 Urine Bacteria (Auto) 3+ /HPF (Negative) 10/03/16 15:54 Amorphous Crystals 1+ 10/03/16 15:54 Urine Mucus Few /HPF 10/03/16 15:54 Urine Creatinine 63.2 mg/dL (0.1-20.0) H 10/03/16 15:54 Urine Sodium 20 mEq/L 10/03/16 15:54 Urine Total Protein 67 mg/dL (5-11.8) H 10/03/16 15:54 Vancomycin Trough 45.5 ug/mL (5.0-20.0) H 10/04/16 12:39 Random Vancomycin 14.9 ug/mL (0-40.0) 10/07/16 05:25 Lymph Enumerat CD4/CD8 2.87 (0.86-5.00) 10/10/16 13:03 % CD3 Cells 73 % (57-85) 10/10/16 13:03 Absolute CD3 Count 2879 cells/uL (840-3060) 10/10/16 13:03 % CD4 Cells 55 % (30-61) 10/10/16 13:03 Absolute CD4 Count 2178 cells/uL (490-1740) H 10/10/16 13:03 % CD8 Cells 19 % (12-42) 10/10/16 13:03 Absolute CD8 Count 759 cells/uL (180-1170) 10/10/16 13:03 % CD19 Cells 21 % (6-29) 10/10/16 13:03 Absolute CD19 Count 824 cells/uL (110-660) H 10/10/16 13:03 Flow Intrp 16+ Markers Scanned into med rec 10/08/16 04:00 Flow Cytometry Interp Scanned into [facility] rec 10/08/16 04:00 Blood Type O POSITIVE 10/09/16 10:00 Antibody Screen TNR 10/01/16 00:55 DEACON Antibody Screen Negative 10/09/16 10:00 Crossmatch See Detail 10/09/16 10:00
[2016-10-18 08:54] LABS: Blastocytes % (Manual) 0 %
[2016-10-18 08:55] LABS: Basophils % (Manual) 0 % (0.0-1.8); Eosinophils % (Manual) 0 % (0.0-4.3); Polychromasia 1+; Target Cells Few
[2016-10-18 08:56] LABS: Diff Status Complete; Hypochromasia 1+; Platelet Estimate Consistent w Auto; Stomatocytes Few
[2016-10-18] MEDS: DIPRIVAN 10 MG/ML 1,000 MG/100 ML BOTTLE IV SCH (09:18)
[2016-10-18] MEDS: LEVEMIR SUB-Q SCH (09:19)
[2016-10-18] MEDS: LOVENOX SUB-Q SCH (09:20)
[2016-10-18] MEDS: SENOKOT PO SCH (09:21)
[2016-10-18] MEDS: PEPCID PO SCH ×2 (09:21→21:24)
[2016-10-18] MEDS: VALTREX PO SCH (09:22)
[2016-10-18] MEDS: THERAGRAN Tab PO SCH (09:22)
[2016-10-18] MEDS: FOLVITE PO SCH (09:22)
[2016-10-18] MEDS: ASPIRIN PO SCH (09:22)
[2016-10-18] MEDS: PULMICORT IH SCH ×2 (10:49→20:18)
--- NOTE | 2016-10-18 10:49 | Progress Note ---
Assessment and Plan - Patient Problems (1) Acute respiratory failure with hypoxia Current Visit: Yes Status: Acute Plan to address problem: - changed back to AC mode - continue lung protective strategies (reduced TV to 400mls) - allow permissive hypercapnia - continue bronchodilators and pulmonary toilet - continue aspiration precautions / VAP bundles - continue to wean oxygen for sats > 90-92% at this point - prn ABG's - keep well sedated at this point with daily sedation vacations - will stop diuretics - s/p exchange blood transfusion - bronchoscopy consistent with Diffuse alveolar hemorhage - continue high dose steroids X 5 days then taper - cover for MRSA with zyvox re: high SHEILA on vancomycin sensitivities (Discussed with ID) - now at 40% FiO2 and hopefully can begin weaning Peep (2) ARDS (adult respiratory distress syndrome) Current Visit: Yes Status: Acute Plan to address problem: - 2D ECHO reports normal EF without impaired relaxation - non cardiogenic pulmonary edema - etiology unclear - treating empirically as HCAP - as above otherwise (3) Obesity Current Visit: Yes Status: Acute Qualifiers: Obesity type: O Obesity severity: O Plan to address problem: - weight loss counselled earlier - outpatient sleep clinic evaluation at discharge (4) Sepsis syndrome Current Visit: Yes Status: Acute Plan to address problem: - continue anti-infectives per ID recs - trend CRP / lactate prn - follow BAL studies (5) Anemia Current Visit: Yes Status: Acute Qualifiers: Anemia type: A Iron deficiency anemia type: I Vitamin B12 deficiency anemia type: V Folate deficiency anemia type: F Bone marrow failure anemia type: B Hemolytic anemia type: H Other causes of anemia: O Plan to address problem: - multifactorial - suspect ABLA component - h/o sickle cell - prn PRBC transfusions - hematology following - s/p exchange blood transfusion - likely element from [facility] (6) CARLYN (acute kidney injury) Current Visit: Yes Status: Acute Plan to address problem: - non oliguric - per nephrology recommendations - stopped diuretics today (7) Discharge planning issues Current Visit: Yes Status: Acute Plan to address problem: - hopefully continues to improve and can transfer to LTAC once Peep </= 10 and FiO2 < 60% .....she remains critically ill on life sustaining interventions including MVS and remains at risk for further deterioration including 34' CCT Subjective Date of service: 10/18/16 Principal diagnosis: Acute Hypoxemic Respiratory Failure; ARDS Interval history: Seen and examined at bedside; 24 hour events reviewed; nursing and respiratory care staff consulted; no adverse overnight events reported to me; oxygenation showing improvement and FiO2 now at 40% with sats at 95%; still on Peep of 16; no new issues otherwise Objective Vital Signs - 12hr 10/17/16 10/17/16 10/17/16 22:53 23:00 23:15 Temperature Pulse Rate 106 H 104 H Pulse Rate [ Anterior Bilateral Throughout] Respiratory 26 H 15 16 Rate Respiratory Rate [Anterior Bilateral Throughout] Respiratory 26 H Rate [Left Hip] Blood Pressure 126/72 128/64 O2 Sat by Pulse 92 92 93 Oximetry 10/17/16 10/17/16 10/17/16 23:30 23:45 23:58 Temperature 99.6 F Pulse Rate 102 H 100 H Pulse Rate [ Anterior Bilateral Throughout] Respiratory 19 20 Rate Respiratory Rate [Anterior Bilateral Throughout] Respiratory Rate [Left Hip] Blood Pressure 96/55 98/55 O2 Sat by Pulse 93 95 Oximetry 10/18/16 10/18/16 10/18/16 00:00 00:15 00:30 Temperature Pulse Rate 101 H 98 H 88 Pulse Rate [ Anterior Bilateral Throughout] Respiratory 21 24 24 Rate Respiratory Rate [Anterior Bilateral Throughout] Respiratory Rate [Left Hip] Blood Pressure 94/50 101/55 106/49 O2 Sat by Pulse 91 95 92 Oximetry 10/18/16 10/18/16 10/18/16 00:33 00:45 01:00 Temperature Pulse Rate 89 88 119 H Pulse Rate [ Anterior Bilateral Throughout] Respiratory 15 25 H Rate Respiratory Rate [Anterior Bilateral Throughout] Respiratory Rate [Left Hip] Blood Pressure 101/55 105/53 132/76 O2 Sat by Pulse 93 92 Oximetry 10/18/16 10/18/16 10/18/16 01:15 01:30 01:45 Temperature Pulse Rate 103 H 107 H 105 H Pulse Rate [ Anterior Bilateral Throughout] Respiratory 14 13 14 Rate Respiratory Rate [Anterior Bilateral Throughout] Respiratory Rate [Left Hip] Blood Pressure 123/69 128/70 128/70 O2 Sat by Pulse 92 93 93 Oximetry 10/18/16 10/18/16 10/18/16 02:00 02:06 02:15 Temperature Pulse Rate 102 H 105 H Pulse Rate [ 109 H Anterior Bilateral Throughout] Respiratory 19 18 Rate Respiratory 32 H Rate [Anterior Bilateral Throughout] Respiratory Rate [Left Hip] Blood Pressure 128/75 133/72 O2 Sat by Pulse 94 88 Oximetry 10/18/16 10/18/16 10/18/16 02:16 02:30 02:45 Temperature Pulse Rate 112 H 108 H Pulse Rate [ 98 H Anterior Bilateral Throughout] Respiratory 22 21 Rate Respiratory 35 H Rate [Anterior Bilateral Throughout] Respiratory Rate [Left Hip] Blood Pressure 139/80 127/76 O2 Sat by Pulse 88 88 Oximetry 10/18/16 10/18/16 10/18/16 03:00 03:15 03:30 Temperature Pulse Rate 107 H 110 H 108 H Pulse Rate [ Anterior Bilateral Throughout] Respiratory 25 H 26 H 26 H Rate Respiratory Rate [Anterior Bilateral Throughout] Respiratory Rate [Left Hip] Blood Pressure 135/70 125/74 136/75 O2 Sat by Pulse 89 88 89 Oximetry 10/18/16 10/18/16 10/18/16 03:45 03:49 04:00 Temperature 99.4 F Pulse Rate 108 H 109 H Pulse Rate [ Anterior Bilateral Throughout] Respiratory 23 26 H Rate Respiratory Rate [Anterior Bilateral Throughout] Respiratory Rate [Left Hip] Blood Pressure 129/74 127/79 O2 Sat by Pulse 89 91 Oximetry 10/18/16 10/18/16 10/18/16 04:15 04:30 04:45 Temperature Pulse Rate 106 H 108 H 108 H Pulse Rate [ Anterior Bilateral Throughout] Respiratory 21 22 25 H Rate Respiratory Rate [Anterior Bilateral Throughout] Respiratory Rate [Left Hip] Blood Pressure 131/78 129/77 122/70 O2 Sat by Pulse 91 88 91 Oximetry 10/18/16 10/18/16 10/18/16 05:00 05:15 05:30 Temperature Pulse Rate 104 H 108 H 108 H Pulse Rate [ Anterior Bilateral Throughout] Respiratory 24 25 H 18 Rate Respiratory Rate [Anterior Bilateral Throughout] Respiratory Rate [Left Hip] Blood Pressure 134/69 132/70 122/69 O2 Sat by Pulse 91 91 90 Oximetry 10/18/16 10/18/16 10/18/16 05:45 06:00 06:15 Temperature Pulse Rate 102 H 103 H 104 H Pulse Rate [ Anterior Bilateral Throughout] Respiratory 22 21 21 Rate Respiratory Rate [Anterior Bilateral Throughout] Respiratory Rate [Left Hip] Blood Pressure 122/75 124/70 110/63 O2 Sat by Pulse 91 93 94 Oximetry 10/18/16 10/18/16 10/18/16 06:30 06:45 07:00 Temperature Pulse Rate 103 H 100 H 97 H Pulse Rate [ Anterior Bilateral Throughout] Respiratory 26 H 24 22 Rate Respiratory Rate [Anterior Bilateral Throughout] Respiratory Rate [Left Hip] Blood Pressure 104/59 98/54 95/53 O2 Sat by Pulse 94 95 94 Oximetry 10/18/16 10/18/16 10/18/16 07:15 07:30 07:45 Temperature Pulse Rate 97 H 101 H 102 H Pulse Rate [ Anterior Bilateral Throughout] Respiratory 20 22 21 Rate Respiratory Rate [Anterior Bilateral Throughout] Respiratory Rate [Left Hip] Blood Pressure 111/65 118/70 124/68 O2 Sat by Pulse 92 92 89 Oximetry 10/18/16 10/18/16 10/18/16 08:00 08:15 08:30 Temperature 99 F Pulse Rate 105 H 106 H 109 H Pulse Rate [ Anterior Bilateral Throughout] Respiratory 15 22 27 H Rate Respiratory Rate [Anterior Bilateral Throughout] Respiratory Rate [Left Hip] Blood Pressure 124/68 130/72 124/69 O2 Sat by Pulse 89 90 88 Oximetry 10/18/16 10/18/16 10/18/16 08:45 09:00 09:15 Temperature Pulse Rate 106 H 106 H 107 H Pulse Rate [ Anterior Bilateral Throughout] Respiratory 29 H 24 21 Rate Respiratory Rate [Anterior Bilateral Throughout] Respiratory Rate [Left Hip] Blood Pressure 132/71 122/73 127/76 O2 Sat by Pulse 92 91 91 Oximetry 10/18/16 10/18/16 09:30 09:45 Temperature Pulse Rate 111 H 107 H Pulse Rate [ Anterior Bilateral Throughout] Respiratory 21 20 Rate Respiratory Rate [Anterior Bilateral Throughout] Respiratory Rate [Left Hip] Blood Pressure 124/72 132/71 O2 Sat by Pulse 92 93 Oximetry Constitutional: no acute distress, other (sedated) Eyes: non-icteric ENT: oropharynx moist Neck: supple, no lymphadenopathy Effort: mildly labored Ascultation: Bilateral: diminished breath sounds, rales Cardiovascular: regular rate and rhythm Gastrointestinal: normoactive bowel sounds, soft, non-tender, non-distended Integumentary: normal Extremities: no cyanosis, no edema, pulses normal, no ischemia or petechiae Neurologic: normal mental status, non-focal exam, pupils equal and round, other (follows commands during sedation holidays) Psychiatric: other (sedated now) CBC and BMP: 10/18/16 05:11 10/19/16 10:18 ABG, PT/INR, D-dimer: ABG POC ABG pH 7.413 (7.35-7.45) 10/18/16 04:45 POC ABG pCO2 66.8 (35-45) H 10/18/16 04:45 POC ABG pO2 59 (80-105) L 10/18/16 04:45 POC ABG HCO3 42.7 10/18/16 04:45 POC ABG Total CO2 45 10/18/16 04:45 POC ABG O2 Sat 89 10/18/16 04:45 PT/INR, D-dimer PT 17.6 Sec. (12.2-14.9) H 10/10/16 13:03 INR 1.45 (0.87-1.13) H 10/10/16 13:03 D-Dimer 4758.12 ng/mlDDU (0-234) H 09/27/16 22:47 Abnormal lab findings: Abnormal Labs 09/20/16 09/20/16 09/20/16 10:35 10:35 10:35 WBC 11.7 H RBC Hgb Hct MCV 75 L MCH 24 L RDW 16.6 H Plt Count [place] # Baso # Seg Neutrophils % Seg Neuts % (Manual) Lymphocytes % (Manual) Monocytes % (Manual) Eosinophils % (Manual) Nucleated RBC % Seg Neutrophils # Seg Neutrophils # Man Abs Lymphs (Manual) Lymphocytes # (Manual) Monocytes # (Manual) Eosinophils # (Manual) Percent Retic PT INR 1.14 H D-Dimer POC ABG pH POC ABG pCO2 POC ABG pO2 Sodium Potassium Chloride Carbon Dioxide BUN Creatinine 0.5 L Glucose 115 H POC Glucose Lactic Acid Calcium Phosphorus Magnesium Ferritin Total Bilirubin 2.0 H Lactate Dehydrogenase Total Creatine Kinase CK-MB (CK-2) C-Reactive Protein NT-Pro-B Natriuret Pep Total Protein Albumin Triglycerides Urine WBC (Auto) Urine Creatinine Urine Total Protein Vancomycin Trough Random Vancomycin Absolute CD4 Count Absolute CD19 Count Crossmatch 09/26/16 09/26/16 09/27/16 04:26 04:26 10:26 WBC RBC Hgb 8.9 L Hct 28.0 L MCV MCH RDW Plt Count [place] # Baso # Seg Neutrophils % Seg Neuts % (Manual) Lymphocytes % (Manual) Monocytes % (Manual) Eosinophils % (Manual) Nucleated RBC % Seg Neutrophils # Seg Neutrophils # Man Abs Lymphs (Manual) Lymphocytes # (Manual) Monocytes # (Manual) Eosinophils # (Manual) Percent Retic PT INR D-Dimer POC ABG pH 7.283 L POC ABG pCO2 45.3 H POC ABG pO2 79 L Sodium Potassium Chloride Carbon Dioxide 20 L BUN Creatinine Glucose 129 H POC Glucose Lactic Acid Calcium 7.6 L Phosphorus Magnesium Ferritin Total Bilirubin Lactate Dehydrogenase Total Creatine Kinase CK-MB (CK-2) C-Reactive Protein NT-Pro-B Natriuret Pep Total Protein Albumin Triglycerides Urine WBC (Auto) Urine Creatinine Urine Total Protein Vancomycin Trough Random Vancomycin Absolute CD4 Count Absolute CD19 Count Crossmatch 09/27/16 09/27/16 09/27/16 14:40 14:40 15:14 WBC 39.3 H RBC Hgb 9.3 L Hct 28.9 L MCV 75 L MCH 24 L RDW 18.7 H Plt Count [place] # Baso # Seg Neutrophils % Seg Neuts % (Manual) 93.5 H Lymphocytes % (Manual) 5.0 L Monocytes % (Manual) Eosinophils % (Manual) Nucleated RBC % Seg Neutrophils # Seg Neutrophils # Man 36.7 H Abs Lymphs (Manual) Lymphocytes # (Manual) Monocytes # (Manual) Eosinophils # (Manual) Percent Retic PT INR D-Dimer POC ABG pH POC ABG pCO2 POC ABG pO2 Sodium Potassium Chloride Carbon Dioxide BUN Creatinine Glucose POC Glucose Lactic Acid 2.9 H* Calcium Phosphorus Magnesium Ferritin Total Bilirubin Lactate Dehydrogenase Total Creatine Kinase 3575 H CK-MB (CK-2) 11.0 H C-Reactive Protein 16.10 H NT-Pro-B Natriuret Pep Total Protein Albumin Triglycerides Urine WBC (Auto) Urine Creatinine Urine Total Protein Vancomycin Trough Random Vancomycin Absolute CD4 Count Absolute CD19 Count Crossmatch 09/27/16 09/27/16 09/27/16 18:05 22:47 22:47 WBC RBC Hgb Hct MCV MCH RDW Plt Count [place] # Baso # Seg Neutrophils % Seg Neuts % (Manual) Lymphocytes % (Manual) Monocytes % (Manual) Eosinophils % (Manual) Nucleated RBC % Seg Neutrophils # Seg Neutrophils # Man Abs Lymphs (Manual) Lymphocytes # (Manual) Monocytes # (Manual) Eosinophils # (Manual) Percent Retic PT INR D-Dimer 4758.12 H POC ABG pH POC ABG pCO2 POC ABG pO2 70 L Sodium Potassium Chloride Carbon Dioxide BUN Creatinine Glucose POC Glucose Lactic Acid Calcium Phosphorus Magnesium Ferritin Total Bilirubin Lactate Dehydrogenase 829 H Total Creatine Kinase CK-MB (CK-2) C-Reactive Protein NT-Pro-B Natriuret Pep Total Protein Albumin Triglycerides Urine WBC (Auto) Urine Creatinine Urine Total Protein Vancomycin Trough Random Vancomycin Absolute CD4 Count Absolute CD19 Count Crossmatch 09/27/16 09/28/16 09/28/16 22:47 09:20 10:47 WBC RBC Hgb Hct MCV MCH RDW Plt Count [place] # Baso # Seg Neutrophils % Seg Neuts % (Manual) Lymphocytes % (Manual) Monocytes % (Manual) Eosinophils % (Manual) Nucleated RBC % Seg Neutrophils # Seg Neutrophils # Man Abs Lymphs (Manual) Lymphocytes # (Manual) Monocytes # (Manual) Eosinophils # (Manual) Percent Retic 8.11 H PT INR D-Dimer POC ABG pH POC ABG pCO2 47.2 H POC ABG pO2 70 L Sodium Potassium Chloride Carbon Dioxide BUN Creatinine 0.6 L Glucose 137 H POC Glucose Lactic Acid Calcium Phosphorus Magnesium Ferritin Total Bilirubin Lactate Dehydrogenase Total Creatine Kinase CK-MB (CK-2) C-Reactive Protein NT-Pro-B Natriuret Pep Total Protein Albumin Triglycerides Urine WBC (Auto) Urine Creatinine Urine Total Protein Vancomycin Trough Random Vancomycin Absolute CD4 Count Absolute CD19 Count Crossmatch 09/28/16 09/30/16 09/30/16 10:47 11:01 14:05 WBC 30.3 H RBC 3.27 L Hgb 8.1 L Hct 24.4 L MCV 75 L MCH 25 L RDW 18.9 H Plt Count [place] # Baso # Seg Neutrophils % Seg Neuts % (Manual) Lymphocytes % (Manual) 12.0 L Monocytes % (Manual) Eosinophils % (Manual) Nucleated RBC % 5.0 H Seg Neutrophils # Seg Neutrophils # Man 21.2 H Abs Lymphs (Manual) Lymphocytes # (Manual) Monocytes # (Manual) 1.8 H Eosinophils # (Manual) Percent Retic PT INR D-Dimer POC ABG pH POC ABG pCO2 48.8 H POC ABG pO2 52 L Sodium Potassium Chloride Carbon Dioxide BUN Creatinine Glucose POC Glucose Lactic Acid Calcium Phosphorus Magnesium Ferritin Total Bilirubin Lactate Dehydrogenase Total Creatine Kinase CK-MB (CK-2) C-Reactive Protein NT-Pro-B Natriuret Pep 2018 H Total Protein Albumin Triglycerides Urine WBC (Auto) Urine Creatinine Urine Total Protein Vancomycin Trough Random Vancomycin Absolute CD4 Count Absolute CD19 Count Crossmatch 09/30/16 09/30/16 09/30/16 14:05 14:05 14:05 WBC 22.1 H RBC 2.76 L Hgb 6.9 L Hct 20.6 L MCV 75 L MCH 25 L RDW 18.7 H Plt Count [place] # Baso # Seg Neutrophils % Seg Neuts % (Manual) 74.0 H Lymphocytes % (Manual) 7.0 L Monocytes % (Manual) Eosinophils % (Manual) Nucleated RBC % 52.0 H Seg Neutrophils # Seg Neutrophils # Man 16.4 H Abs Lymphs (Manual) Lymphocytes # (Manual) Monocytes # (Manual) Eosinophils # (Manual) Percent Retic PT INR D-Dimer POC ABG pH POC ABG pCO2 POC ABG pO2 Sodium Potassium 3.1 L Chloride Carbon Dioxide BUN Creatinine 0.5 L Glucose 116 H POC Glucose Lactic Acid Calcium 8.2 L Phosphorus Magnesium Ferritin Total Bilirubin Lactate Dehydrogenase Total Creatine Kinase CK-MB (CK-2) C-Reactive Protein 30.80 H NT-Pro-B Natriuret Pep Total Protein Albumin Triglycerides Urine WBC (Auto) Urine Creatinine Urine Total Protein Vancomycin Trough Random Vancomycin Absolute CD4 Count Absolute CD19 Count Crossmatch 09/30/16 10/01/16 10/01/16 14:33 00:55 00:55 WBC 26.1 H RBC 2.80 L Hgb 6.8 L Hct 20.8 L MCV 74 L MCH 24 L RDW 18.6 H Plt Count [place] # Baso # Seg Neutrophils % Seg Neuts % (Manual) 85.0 H Lymphocytes % (Manual) 11.0 L Monocytes % (Manual) Eosinophils % (Manual) Nucleated RBC % 21.0 H Seg Neutrophils # Seg Neutrophils # Man 22.2 H Abs Lymphs (Manual) Lymphocytes # (Manual) Monocytes # (Manual) 1.0 H Eosinophils # (Manual) Percent Retic PT INR D-Dimer POC ABG pH POC ABG pCO2 47.8 H POC ABG pO2 201 H Sodium Potassium Chloride Carbon Dioxide BUN Creatinine Glucose POC Glucose Lactic Acid Calcium Phosphorus Magnesium Ferritin Total Bilirubin Lactate Dehydrogenase Total Creatine Kinase CK-MB (CK-2) C-Reactive Protein NT-Pro-B Natriuret Pep Total Protein Albumin Triglycerides Urine WBC (Auto) Urine Creatinine Urine Total Protein Vancomycin Trough Random Vancomycin Absolute CD4 Count Absolute CD19 Count Crossmatch See Detail 10/01/16 10/01/16 10/01/16 04:57 05:00 13:01 WBC RBC Hgb Hct MCV MCH RDW Plt Count [place] # Baso # Seg Neutrophils % Seg Neuts % (Manual) Lymphocytes % (Manual) Monocytes % (Manual) Eosinophils % (Manual) Nucleated RBC % Seg Neutrophils # Seg Neutrophils # Man Abs Lymphs (Manual) Lymphocytes # (Manual) Monocytes # (Manual) Eosinophils # (Manual) Percent Retic PT INR D-Dimer POC ABG pH POC ABG pCO2 58.5 H POC ABG pO2 149 H Sodium 149 H Potassium 3.0 L Chloride Carbon Dioxide BUN Creatinine Glucose POC Glucose 120 H Lactic Acid Calcium 8.3 L Phosphorus Magnesium Ferritin Total Bilirubin Lactate Dehydrogenase Total Creatine Kinase CK-MB (CK-2) C-Reactive Protein NT-Pro-B Natriuret Pep Total Protein Albumin Triglycerides Urine WBC (Auto) Urine Creatinine Urine Total Protein Vancomycin Trough Random Vancomycin Absolute CD4 Count Absolute CD19 Count Crossmatch 10/01/16 10/01/16 10/01/16 15:43 17:44 23:37 WBC 27.6 H RBC 3.55 L Hgb 8.9 L Hct 27.6 L D MCV 78 L D MCH 25 L RDW 18.1 H Plt Count [place] # Baso # Seg Neutrophils % Seg Neuts % (Manual) 79.5 H Lymphocytes % (Manual) 8.0 L Monocytes % (Manual) Eosinophils % (Manual) Nucleated RBC % 65.0 H Seg Neutrophils # Seg Neutrophils # Man 21.9 H Abs Lymphs (Manual) Lymphocytes # (Manual) Monocytes # (Manual) 1.0 H Eosinophils # (Manual) Percent Retic PT INR D-Dimer POC ABG pH POC ABG pCO2 POC ABG pO2 Sodium Potassium Chloride Carbon Dioxide BUN Creatinine Glucose POC Glucose 121 H 129 H Lactic Acid Calcium Phosphorus Magnesium Ferritin Total Bilirubin Lactate Dehydrogenase Total Creatine Kinase CK-MB (CK-2) C-Reactive Protein NT-Pro-B Natriuret Pep Total Protein Albumin Triglycerides Urine WBC (Auto) Urine Creatinine Urine Total Protein Vancomycin Trough Random Vancomycin Absolute CD4 Count Absolute CD19 Count Crossmatch 10/02/16 10/02/16 10/02/16 05:05 05:40 06:00 WBC 23.0 H RBC 3.30 L Hgb 8.3 L Hct 25.8 L MCV 78 L MCH 25 L RDW 18.2 H Plt Count [place] # Baso # Seg Neutrophils % Seg Neuts % (Manual) 83.5 H Lymphocytes % (Manual) 4.0 L Monocytes % (Manual) Eosinophils % (Manual) Nucleated RBC % 14.5 H Seg Neutrophils # Seg Neutrophils # Man 25.1 H Abs Lymphs (Manual) Lymphocytes # (Manual) Monocytes # (Manual) 1.7 H Eosinophils # (Manual) Percent Retic PT INR D-Dimer POC ABG pH POC ABG pCO2 50.5 H POC ABG pO2 Sodium Potassium Chloride Carbon Dioxide BUN Creatinine Glucose POC Glucose 123 H Lactic Acid Calcium Phosphorus Magnesium Ferritin Total Bilirubin Lactate Dehydrogenase Total Creatine Kinase CK-MB (CK-2) C-Reactive Protein NT-Pro-B Natriuret Pep Total Protein Albumin Triglycerides Urine WBC (Auto) Urine Creatinine Urine Total Protein Vancomycin Trough Random Vancomycin Absolute CD4 Count Absolute CD19 Count Crossmatch 10/02/16 10/02/16 10/02/16 06:00 11:42 21:52 WBC RBC Hgb Hct MCV MCH RDW Plt Count [place] # Baso # Seg Neutrophils % Seg Neuts % (Manual) Lymphocytes % (Manual) Monocytes % (Manual) Eosinophils % (Manual) Nucleated RBC % Seg Neutrophils # Seg Neutrophils # Man Abs Lymphs (Manual) Lymphocytes # (Manual) Monocytes # (Manual) Eosinophils # (Manual) Percent Retic PT INR D-Dimer POC ABG pH 7.324 L POC ABG pCO2 60.5 H POC ABG pO2 74 L Sodium 150 H Potassium Chloride 108.3 H Carbon Dioxide BUN 20 H Creatinine 1.4 H D Glucose 117 H POC Glucose 135 H Lactic Acid Calcium Phosphorus Magnesium Ferritin Total Bilirubin Lactate Dehydrogenase Total Creatine Kinase CK-MB (CK-2) C-Reactive Protein NT-Pro-B Natriuret Pep Total Protein Albumin Triglycerides Urine WBC (Auto) Urine Creatinine Urine Total Protein Vancomycin Trough Random Vancomycin Absolute CD4 Count Absolute CD19 Count Crossmatch 10/02/16 10/03/16 10/03/16 23:26 05:55 08:17 WBC 32.0 H RBC 3.13 L Hgb 7.9 L Hct 24.6 L MCV MCH 25 L RDW 18.9 H Plt Count 132 L [place] # Baso # Seg Neutrophils % Seg Neuts % (Manual) 75.0 H Lymphocytes % (Manual) 5.0 L Monocytes % (Manual) Eosinophils % (Manual) Nucleated RBC % 26.0 H Seg Neutrophils # Seg Neutrophils # Man 24.0 H Abs Lymphs (Manual) Lymphocytes # (Manual) Monocytes # (Manual) 1.0 H Eosinophils # (Manual) 1.0 H Percent Retic PT INR D-Dimer POC ABG pH POC ABG pCO2 POC ABG pO2 Sodium Potassium Chloride Carbon Dioxide BUN Creatinine Glucose POC Glucose 121 H 145 H Lactic Acid Calcium Phosphorus Magnesium Ferritin Total Bilirubin Lactate Dehydrogenase Total Creatine Kinase CK-MB (CK-2) C-Reactive Protein NT-Pro-B Natriuret Pep Total Protein Albumin Triglycerides Urine WBC (Auto) Urine Creatinine Urine Total Protein Vancomycin Trough Random Vancomycin Absolute CD4 Count Absolute CD19 Count Crossmatch 10/03/16 10/03/16 10/03/16 08:17 09:26 11:34 WBC RBC Hgb Hct MCV MCH RDW Plt Count [place] # Baso # Seg Neutrophils % Seg Neuts % (Manual) Lymphocytes % (Manual) Monocytes % (Manual) Eosinophils % (Manual) Nucleated RBC % Seg Neutrophils # Seg Neutrophils # Man Abs Lymphs (Manual) Lymphocytes # (Manual) Monocytes # (Manual) Eosinophils # (Manual) Percent Retic PT INR D-Dimer POC ABG pH 7.274 L POC ABG pCO2 59.7 H POC ABG pO2 58 L Sodium 147 H Potassium Chloride 107.6 H Carbon Dioxide BUN 31 H Creatinine 1.7 H Glucose 118 H POC Glucose 142 H Lactic Acid Calcium Phosphorus Magnesium Ferritin Total Bilirubin Lactate Dehydrogenase Total Creatine Kinase CK-MB (CK-2) C-Reactive Protein NT-Pro-B Natriuret Pep Total Protein Albumin Triglycerides Urine WBC (Auto) Urine Creatinine Urine Total Protein Vancomycin Trough Random Vancomycin Absolute CD4 Count Absolute CD19 Count Crossmatch 10/03/16 10/03/16 10/03/16 15:54 15:54 16:58 WBC RBC Hgb Hct MCV MCH RDW Plt Count [place] # Baso # Seg Neutrophils % Seg Neuts % (Manual) Lymphocytes % (Manual) Monocytes % (Manual) Eosinophils % (Manual) Nucleated RBC % Seg Neutrophils # Seg Neutrophils # Man Abs Lymphs (Manual) Lymphocytes # (Manual) Monocytes # (Manual) Eosinophils # (Manual) Percent Retic PT INR D-Dimer POC ABG pH POC ABG pCO2 POC ABG pO2 Sodium Potassium Chloride Carbon Dioxide BUN Creatinine Glucose POC Glucose 138 H Lactic Acid Calcium Phosphorus Magnesium Ferritin Total Bilirubin Lactate Dehydrogenase Total Creatine Kinase CK-MB (CK-2) C-Reactive Protein NT-Pro-B Natriuret Pep Total Protein Albumin Triglycerides Urine WBC (Auto) 21.0 H Urine Creatinine 63.2 H Urine Total Protein 67 H Vancomycin Trough Random Vancomycin Absolute CD4 Count Absolute CD19 Count Crossmatch 10/03/16 10/03/16 10/04/16 21:37 23:44 04:00 WBC 30.3 H RBC 2.86 L Hgb 7.3 L Hct 22.6 L MCV MCH 25 L RDW 19.6 H Plt Count 125 L [place] # Baso # Seg Neutrophils % Seg Neuts % (Manual) Lymphocytes % (Manual) 12.0 L Monocytes % (Manual) Eosinophils % (Manual) 5.0 H Nucleated RBC % 30.0 H Seg Neutrophils # Seg Neutrophils # Man 12.7 H Abs Lymphs (Manual) Lymphocytes # (Manual) Monocytes # (Manual) 1.2 H Eosinophils # (Manual) 1.5 H Percent Retic PT INR D-Dimer POC ABG pH 7.271 L POC ABG pCO2 61.7 H POC ABG pO2 77 L Sodium Potassium Chloride Carbon Dioxide BUN Creatinine Glucose POC Glucose 130 H Lactic Acid Calcium Phosphorus Magnesium Ferritin Total Bilirubin Lactate Dehydrogenase Total Creatine Kinase CK-MB (CK-2) C-Reactive Protein NT-Pro-B Natriuret Pep Total Protein Albumin Triglycerides Urine WBC (Auto) Urine Creatinine Urine Total Protein Vancomycin Trough Random Vancomycin Absolute CD4 Count Absolute CD19 Count Crossmatch 10/04/16 10/04/16 10/04/16 04:03 06:02 12:29 WBC RBC Hgb Hct MCV MCH RDW Plt Count [place] # Baso # Seg Neutrophils % Seg Neuts % (Manual) Lymphocytes % (Manual) Monocytes % (Manual) Eosinophils % (Manual) Nucleated RBC % Seg Neutrophils # Seg Neutrophils # Man Abs Lymphs (Manual) Lymphocytes # (Manual) Monocytes # (Manual) Eosinophils # (Manual) Percent Retic PT INR D-Dimer POC ABG pH 7.248 L POC ABG pCO2 62.3 H POC ABG pO2 59 L Sodium Potassium Chloride Carbon Dioxide BUN 40 H Creatinine 1.7 H Glucose 110 H POC Glucose 123 H Lactic Acid Calcium Phosphorus Magnesium Ferritin Total Bilirubin Lactate Dehydrogenase Total Creatine Kinase CK-MB (CK-2) C-Reactive Protein NT-Pro-B Natriuret Pep Total Protein 5.6 L Albumin 2.1 L Triglycerides Urine WBC (Auto) Urine Creatinine Urine Total Protein Vancomycin Trough Random Vancomycin Absolute CD4 Count Absolute CD19 Count Crossmatch 10/04/16 10/04/1610/04/17 12:39 15:14 17:45 WBC RBC Hgb Hct MCV MCH RDW Plt Count [place] # Baso # Seg Neutrophils % Seg Neuts % (Manual) Lymphocytes % (Manual) Monocytes % (Manual) Eosinophils % (Manual) Nucleated RBC % Seg Neutrophils # Seg Neutrophils # Man Abs Lymphs (Manual) Lymphocytes # (Manual) Monocytes # (Manual) Eosinophils # (Manual) Percent Retic PT INR D-Dimer POC ABG pH POC ABG pCO2 POC ABG pO2 109 H Sodium Potassium Chloride Carbon Dioxide BUN Creatinine Glucose POC Glucose 124 H Lactic Acid Calcium Phosphorus Magnesium Ferritin Total Bilirubin Lactate Dehydrogenase Total Creatine Kinase CK-MB (CK-2) C-Reactive Protein NT-Pro-B Natriuret Pep Total Protein Albumin Triglycerides Urine WBC (Auto) Urine Creatinine Urine Total Protein Vancomycin Trough 45.5 H Random Vancomycin Absolute CD4 Count Absolute CD19 Count Crossmatch 10/04/16 10/04/16 10/05/16 20:13 23:05 01:27 WBC 36.1 H RBC 2.99 L Hgb 7.3 L Hct 23.5 L MCV MCH 25 L RDW 19.6 H Plt Count [place] # Baso # Seg Neutrophils % Seg Neuts % (Manual) Lymphocytes % (Manual) Monocytes % (Manual) Eosinophils % (Manual) Nucleated RBC % Seg Neutrophils # Seg Neutrophils # Man Abs Lymphs (Manual) Lymphocytes # (Manual) Monocytes # (Manual) Eosinophils # (Manual) Percent Retic PT INR D-Dimer POC ABG pH 7.341 L POC ABG pCO2 POC ABG pO2 47 L Sodium Potassium Chloride Carbon Dioxide BUN Creatinine Glucose POC Glucose 127 H Lactic Acid Calcium Phosphorus Magnesium Ferritin Total Bilirubin Lactate Dehydrogenase Total Creatine Kinase CK-MB (CK-2) C-Reactive Protein NT-Pro-B Natriuret Pep Total Protein Albumin Triglycerides Urine WBC (Auto) Urine Creatinine Urine Total Protein Vancomycin Trough Random Vancomycin Absolute CD4 Count Absolute CD19 Count Crossmatch 10/05/16 10/05/16 10/05/16 01:27 03:50 05:00 WBC RBC Hgb Hct MCV MCH RDW Plt Count [place] # Baso # Seg Neutrophils % Seg Neuts % (Manual) Lymphocytes % (Manual) Monocytes % (Manual) Eosinophils % (Manual) Nucleated RBC % Seg Neutrophils # Seg Neutrophils # Man Abs Lymphs (Manual) Lymphocytes # (Manual) Monocytes # (Manual) Eosinophils # (Manual) Percent Retic PT INR D-Dimer POC ABG pH 7.330 L POC ABG pCO2 45.3 H POC ABG pO2 53 L Sodium Potassium Chloride Carbon Dioxide BUN 49 H Creatinine 1.6 H Glucose 112 H POC Glucose Lactic Acid Calcium Phosphorus Magnesium Ferritin Total Bilirubin Lactate Dehydrogenase Total Creatine Kinase CK-MB (CK-2) C-Reactive Protein NT-Pro-B Natriuret Pep Total Protein Albumin Triglycerides Urine WBC (Auto) Urine Creatinine Urine Total Protein Vancomycin Trough Random Vancomycin 43.6 H Absolute CD4 Count Absolute CD19 Count Crossmatch 10/05/16 10/05/16 10/05/16 05:30 12:08 14:00 WBC RBC Hgb Hct MCV MCH RDW Plt Count [place] # Baso # Seg Neutrophils % Seg Neuts % (Manual) Lymphocytes % (Manual) Monocytes % (Manual) Eosinophils % (Manual) Nucleated RBC % Seg Neutrophils # Seg Neutrophils # Man Abs Lymphs (Manual) Lymphocytes # (Manual) Monocytes # (Manual) Eosinophils # (Manual) Percent Retic PT INR D-Dimer POC ABG pH POC ABG pCO2 POC ABG pO2 Sodium Potassium Chloride Carbon Dioxide BUN Creatinine Glucose POC Glucose 141 H 149 H Lactic Acid Calcium Phosphorus Magnesium Ferritin Total Bilirubin Lactate Dehydrogenase Total Creatine Kinase CK-MB (CK-2) C-Reactive Protein 28.40 H NT-Pro-B Natriuret Pep Total Protein Albumin Triglycerides Urine WBC (Auto) Urine Creatinine Urine Total Protein Vancomycin Trough Random Vancomycin Absolute CD4 Count Absolute CD19 Count Crossmatch 10/05/16 10/05/16 10/05/16 15:37 16:41 17:15 WBC RBC Hgb Hct MCV MCH RDW Plt Count [place] # Baso # Seg Neutrophils % Seg Neuts % (Manual) Lymphocytes % (Manual) Monocytes % (Manual) Eosinophils % (Manual) Nucleated RBC % Seg Neutrophils # Seg Neutrophils # Man Abs Lymphs (Manual) Lymphocytes # (Manual) Monocytes # (Manual) Eosinophils # (Manual) Percent Retic PT INR D-Dimer POC ABG pH 7.157 L 7.133 L POC ABG pCO2 75.0 H 80.5 H POC ABG pO2 76 L Sodium Potassium Chloride Carbon Dioxide BUN Creatinine Glucose POC Glucose 151 H Lactic Acid Calcium Phosphorus Magnesium Ferritin Total Bilirubin Lactate Dehydrogenase Total Creatine Kinase CK-MB (CK-2) C-Reactive Protein NT-Pro-B Natriuret Pep Total Protein Albumin Triglycerides Urine WBC (Auto) Urine Creatinine Urine Total Protein Vancomycin Trough Random Vancomycin Absolute CD4 Count Absolute CD19 Count Crossmatch 10/05/16 10/05/16 10/06/16 19:58 23:50 03:57 WBC 45.3 H* RBC 3.08 L Hgb 7.5 L Hct 24.5 L MCV MCH 25 L RDW 20.1 H Plt Count [place] # Baso # Seg Neutrophils % Seg Neuts % (Manual) 24.0 L Lymphocytes % (Manual) 10.0 L Monocytes % (Manual) Eosinophils % (Manual) Nucleated RBC % 36.0 H Seg Neutrophils # Seg Neutrophils # Man 10.9 H Abs Lymphs (Manual) Lymphocytes # (Manual) Monocytes # (Manual) 3.2 H Eosinophils # (Manual) 0.5 H Percent Retic PT INR D-Dimer POC ABG pH 7.198 L POC ABG pCO2 69.5 H POC ABG pO2 Sodium Potassium Chloride Carbon Dioxide BUN Creatinine Glucose POC Glucose 160 H Lactic Acid Calcium Phosphorus Magnesium Ferritin Total Bilirubin Lactate Dehydrogenase Total Creatine Kinase CK-MB (CK-2) C-Reactive Protein NT-Pro-B Natriuret Pep Total Protein Albumin Triglycerides Urine WBC (Auto) Urine Creatinine Urine Total Protein Vancomycin Trough Random Vancomycin Absolute CD4 Count Absolute CD19 Count Crossmatch 10/06/16 10/06/16 10/06/16 03:57 05:38 06:08 WBC RBC Hgb Hct MCV MCH RDW Plt Count [place] # [place] # Seg Neutrophils % Seg Neuts % (Manual) Lymphocytes % (Manual) Monocytes % (Manual) Eosinophils % (Manual) Nucleated RBC % Seg Neutrophils # Seg Neutrophils # Man Abs Lymphs (Manual) Lymphocytes # (Manual) Monocytes # (Manual) Eosinophils # (Manual) Percent Retic PT INR D-Dimer POC ABG pH 7.226 L POC ABG pCO2 63.3 H POC ABG pO2 Sodium 152 H D Potassium Chloride 114.1 H Carbon Dioxide BUN 58 H Creatinine 1.6 H Glucose 123 H POC Glucose 129 H Lactic Acid Calcium Phosphorus Magnesium Ferritin Total Bilirubin Lactate Dehydrogenase Total Creatine Kinase CK-MB (CK-2) C-Reactive Protein NT-Pro-B Natriuret Pep Total Protein Albumin Triglycerides Urine WBC (Auto) Urine Creatinine Urine Total Protein Vancomycin Trough Random Vancomycin Absolute CD4 Count Absolute CD19 Count Crossmatch 10/06/16 10/06/16 10/06/16 11:38 14:31 18:10 WBC RBC Hgb Hct MCV MCH RDW Plt Count [place] # Baso # Seg Neutrophils % Seg Neuts % (Manual) Lymphocytes % (Manual) Monocytes % (Manual) Eosinophils % (Manual) Nucleated RBC % Seg Neutrophils # Seg Neutrophils # Man Abs Lymphs (Manual) Lymphocytes # (Manual) Monocytes # (Manual) Eosinophils # (Manual) Percent Retic PT INR D-Dimer POC ABG pH 7.345 L POC ABG pCO2 49.5 H POC ABG pO2 60 L Sodium Potassium Chloride Carbon Dioxide BUN Creatinine Glucose POC Glucose 126 H 196 H Lactic Acid Calcium Phosphorus Magnesium Ferritin Total Bilirubin Lactate Dehydrogenase Total Creatine Kinase CK-MB (CK-2) C-Reactive Protein NT-Pro-B Natriuret Pep Total Protein Albumin Triglycerides Urine WBC (Auto) Urine Creatinine Urine Total Protein Vancomycin Trough Random Vancomycin Absolute CD4 Count Absolute CD19 Count Crossmatch 10/06/16 10/07/16 10/07/16 21:07 00:55 00:55 WBC 55.1 H* RBC 3.06 L Hgb 7.5 L Hct 24.4 L MCV MCH 24 L RDW 20.7 H Plt Count [place] # Baso # Seg Neutrophils % Seg Neuts % (Manual) Lymphocytes % (Manual) 8.0 L Monocytes % (Manual) 9.0 H Eosinophils % (Manual) Nucleated RBC % 30.0 H Seg Neutrophils # Seg Neutrophils # Man 27.0 H Abs Lymphs (Manual) Lymphocytes # (Manual) Monocytes # (Manual) 5.0 H Eosinophils # (Manual) 0.6 H Percent Retic PT INR D-Dimer POC ABG pH 7.317 L POC ABG pCO2 55.2 H POC ABG pO2 59 L Sodium 148 H Potassium Chloride 110.2 H Carbon Dioxide BUN 56 H Creatinine 1.7 H Glucose 211 H POC Glucose Lactic Acid Calcium Phosphorus Magnesium Ferritin Total Bilirubin Lactate Dehydrogenase Total Creatine Kinase CK-MB (CK-2) C-Reactive Protein NT-Pro-B Natriuret Pep Total Protein Albumin Triglycerides Urine WBC (Auto) Urine Creatinine Urine Total Protein Vancomycin Trough Random Vancomycin Absolute CD4 Count Absolute CD19 Count Crossmatch 10/07/16 10/07/16 10/07/16 01:01 05:20 06:31 WBC RBC Hgb Hct MCV MCH RDW Plt Count [place] # Baso # Seg Neutrophils % Seg Neuts % (Manual) Lymphocytes % (Manual) Monocytes % (Manual) Eosinophils % (Manual) Nucleated RBC % Seg Neutrophils # Seg Neutrophils # Man Abs Lymphs (Manual) Lymphocytes # (Manual) Monocytes # (Manual) Eosinophils # (Manual) Percent Retic PT INR D-Dimer POC ABG pH 7.310 L POC ABG pCO2 55.6 H POC ABG pO2 65 L Sodium Potassium Chloride Carbon Dioxide BUN Creatinine Glucose POC Glucose 249 H 235 H Lactic Acid Calcium Phosphorus Magnesium Ferritin Total Bilirubin Lactate Dehydrogenase Total Creatine Kinase CK-MB (CK-2) C-Reactive Protein NT-Pro-B Natriuret Pep Total Protein Albumin Triglycerides Urine WBC (Auto) Urine Creatinine Urine Total Protein Vancomycin Trough Random Vancomycin Absolute CD4 Count Absolute CD19 Count Crossmatch 10/07/16 10/07/16 10/07/16 12:00 18:04 23:48 WBC RBC Hgb Hct MCV MCH RDW Plt Count [place] # Baso # Seg Neutrophils % Seg Neuts % (Manual) Lymphocytes % (Manual) Monocytes % (Manual) Eosinophils % (Manual) Nucleated RBC % Seg Neutrophils # Seg Neutrophils # Man Abs Lymphs (Manual) Lymphocytes # (Manual) Monocytes # (Manual) Eosinophils # (Manual) Percent Retic PT INR D-Dimer POC ABG pH POC ABG pCO2 POC ABG pO2 Sodium Potassium Chloride Carbon Dioxide BUN Creatinine Glucose POC Glucose 210 H 201 H 163 H Lactic Acid Calcium Phosphorus Magnesium Ferritin Total Bilirubin Lactate Dehydrogenase Total Creatine Kinase CK-MB (CK-2) C-Reactive Protein NT-Pro-B Natriuret Pep Total Protein Albumin Triglycerides Urine WBC (Auto) Urine Creatinine Urine Total Protein Vancomycin Trough Random Vancomycin Absolute CD4 Count Absolute CD19 Count Crossmatch 10/08/16 10/08/16 10/08/16 04:00 04:00 04:10 WBC 58.0 H* RBC 2.95 L Hgb 7.3 L Hct 23.4 L MCV MCH 25 L RDW 20.8 H Plt Count [place] # Baso # Seg Neutrophils % Seg Neuts % (Manual) 75.0 H Lymphocytes % (Manual) 11.0 L Monocytes % (Manual) 8.0 H Eosinophils % (Manual) Nucleated RBC % 30.0 H Seg Neutrophils # Seg Neutrophils # Man 43.5 H Abs Lymphs (Manual) Lymphocytes # (Manual) 6.4 H Monocytes # (Manual) 4.6 H Eosinophils # (Manual) 0.6 H Percent Retic PT INR D-Dimer POC ABG pH POC ABG pCO2 POC ABG pO2 Sodium 152 H Potassium Chloride 111.4 H Carbon Dioxide BUN 59 H Creatinine 1.6 H Glucose 190 H POC Glucose 214 H Lactic Acid Calcium Phosphorus Magnesium Ferritin Total Bilirubin Lactate Dehydrogenase Total Creatine Kinase CK-MB (CK-2) C-Reactive Protein NT-Pro-B Natriuret Pep Total Protein Albumin Triglycerides Urine WBC (Auto) Urine Creatinine Urine Total Protein Vancomycin Trough Random Vancomycin Absolute CD4 Count Absolute CD19 Count Crossmatch 10/08/16 10/08/16 10/08/16 04:46 12:11 18:35 WBC RBC Hgb Hct MCV MCH RDW Plt Count [place] # Baso # Seg Neutrophils % Seg Neuts % (Manual) Lymphocytes % (Manual) Monocytes % (Manual) Eosinophils % (Manual) Nucleated RBC % Seg Neutrophils # Seg Neutrophils # Man Abs Lymphs (Manual) Lymphocytes # (Manual) Monocytes # (Manual) Eosinophils # (Manual) Percent Retic PT INR D-Dimer POC ABG pH POC ABG pCO2 POC ABG pO2 65 L Sodium Potassium Chloride Carbon Dioxide BUN Creatinine Glucose POC Glucose 199 H 187 H Lactic Acid Calcium Phosphorus Magnesium Ferritin Total Bilirubin Lactate Dehydrogenase Total Creatine Kinase CK-MB (CK-2) C-Reactive Protein NT-Pro-B Natriuret Pep Total Protein Albumin Triglycerides Urine WBC (Auto) Urine Creatinine Urine Total Protein Vancomycin Trough Random Vancomycin Absolute CD4 Count Absolute CD19 Count Crossmatch 10/08/16 10/09/16 10/09/16 23:38 04:43 05:38 WBC RBC Hgb Hct MCV MCH RDW Plt Count [place] # Baso # Seg Neutrophils % Seg Neuts % (Manual) Lymphocytes % (Manual) Monocytes % (Manual) Eosinophils % (Manual) Nucleated RBC % Seg Neutrophils # Seg Neutrophils # Man Abs Lymphs (Manual) Lymphocytes # (Manual) Monocytes # (Manual) Eosinophils # (Manual) Percent Retic PT INR D-Dimer POC ABG pH POC ABG pCO2 45.4 H POC ABG pO2 52 L Sodium Potassium Chloride Carbon Dioxide BUN Creatinine Glucose POC Glucose 202 H 182 H Lactic Acid Calcium Phosphorus Magnesium Ferritin Total Bilirubin Lactate Dehydrogenase Total Creatine Kinase CK-MB (CK-2) C-Reactive Protein NT-Pro-B Natriuret Pep Total Protein Albumin Triglycerides Urine WBC (Auto) Urine Creatinine Urine Total Protein Vancomycin Trough Random Vancomycin Absolute CD4 Count Absolute CD19 Count Crossmatch 10/09/16 10/09/16 10/09/16 07:40 07:40 10:00 WBC 37.3 H RBC 2.55 L Hgb 6.4 L Hct 20.7 L MCV MCH 25 L RDW 20.6 H Plt Count [place] # Baso # Seg Neutrophils % Seg Neuts % (Manual) Lymphocytes % (Manual) Monocytes % (Manual) Eosinophils % (Manual) Nucleated RBC % Seg Neutrophils # Seg Neutrophils # Man Abs Lymphs (Manual) Lymphocytes # (Manual) Monocytes # (Manual) Eosinophils # (Manual) Percent Retic PT INR D-Dimer POC ABG pH POC ABG pCO2 POC ABG pO2 Sodium 153 H Potassium 3.3 L Chloride 112.7 H Carbon Dioxide BUN 62 H Creatinine 1.7 H Glucose 146 H POC Glucose Lactic Acid Calcium Phosphorus Magnesium Ferritin Total Bilirubin Lactate Dehydrogenase Total Creatine Kinase CK-MB (CK-2) C-Reactive Protein NT-Pro-B Natriuret Pep Total Protein Albumin Triglycerides Urine WBC (Auto) Urine Creatinine Urine Total Protein Vancomycin Trough Random Vancomycin Absolute CD4 Count Absolute CD19 Count Crossmatch See Detail 10/09/16 10/09/16 10/10/16 12:06 17:08 00:01 WBC RBC Hgb Hct MCV MCH RDW Plt Count [place] # Baso # Seg Neutrophils % Seg Neuts % (Manual) Lymphocytes % (Manual) Monocytes % (Manual) Eosinophils % (Manual) Nucleated RBC % Seg Neutrophils # Seg Neutrophils # Man Abs Lymphs (Manual) Lymphocytes # (Manual) Monocytes # (Manual) Eosinophils # (Manual) Percent Retic PT INR D-Dimer POC ABG pH POC ABG pCO2 POC ABG pO2 Sodium Potassium Chloride Carbon Dioxide BUN Creatinine Glucose POC Glucose 214 H 152 H 189 H Lactic Acid Calcium Phosphorus Magnesium Ferritin Total Bilirubin Lactate Dehydrogenase Total Creatine Kinase CK-MB (CK-2) C-Reactive Protein NT-Pro-B Natriuret Pep Total Protein Albumin Triglycerides Urine WBC (Auto) Urine Creatinine Urine Total Protein Vancomycin Trough Random Vancomycin Absolute CD4 Count Absolute CD19 Count Crossmatch 10/10/16 10/10/16 10/10/16 04:25 05:28 06:00 WBC RBC Hgb Hct MCV MCH RDW Plt Count [place] # Baso # Seg Neutrophils % Seg Neuts % (Manual) Lymphocytes % (Manual) Monocytes % (Manual) Eosinophils % (Manual) Nucleated RBC % Seg Neutrophils # Seg Neutrophils # Man Abs Lymphs (Manual) Lymphocytes # (Manual) Monocytes # (Manual) Eosinophils # (Manual) Percent Retic PT INR D-Dimer POC ABG pH POC ABG pCO2 58.3 H POC ABG pO2 68 L Sodium Potassium Chloride Carbon Dioxide BUN Creatinine Glucose POC Glucose 155 H Lactic Acid Calcium Phosphorus Magnesium Ferritin Total Bilirubin Lactate Dehydrogenase Total Creatine Kinase CK-MB (CK-2) C-Reactive Protein NT-Pro-B Natriuret Pep Total Protein Albumin Triglycerides 407 H Urine WBC (Auto) Urine Creatinine Urine Total Protein Vancomycin Trough Random Vancomycin Absolute CD4 Count Absolute CD19 Count Crossmatch 10/10/16 10/10/16 10/10/16 06:00 06:00 06:00 WBC 38.5 H RBC 3.57 L Hgb 9.3 L Hct 30.1 L D MCV MCH 26 L RDW 22.0 H Plt Count 464 H [place] # Baso # Seg Neutrophils % Seg Neuts % (Manual) 81.0 H Lymphocytes % (Manual) 9.0 L Monocytes % (Manual) Eosinophils % (Manual) Nucleated RBC % 84.0 H Seg Neutrophils # Seg Neutrophils # Man 31.2 H Abs Lymphs (Manual) Lymphocytes # (Manual) Monocytes # (Manual) Eosinophils # (Manual) 1.2 H Percent Retic PT INR D-Dimer POC ABG pH POC ABG pCO2 POC ABG pO2 Sodium 153 H Potassium Chloride 108.3 H Carbon Dioxide 31 H BUN 62 H Creatinine 1.5 H Glucose 160 H POC Glucose Lactic Acid Calcium Phosphorus Magnesium Ferritin 782.0 H Total Bilirubin Lactate Dehydrogenase Total Creatine Kinase CK-MB (CK-2) C-Reactive Protein NT-Pro-B Natriuret Pep Total Protein Albumin Triglycerides Urine WBC (Auto) Urine Creatinine Urine Total Protein Vancomycin Trough Random Vancomycin Absolute CD4 Count Absolute CD19 Count Crossmatch 10/10/16 10/10/16 10/10/16 11:29 13:03 13:03 WBC RBC Hgb Hct MCV MCH RDW Plt Count [place] # Baso # Seg Neutrophils % Seg Neuts % (Manual) Lymphocytes % (Manual) Monocytes % (Manual) Eosinophils % (Manual) Nucleated RBC % Seg Neutrophils # Seg Neutrophils # Man Abs Lymphs (Manual) 3936 H Lymphocytes # (Manual) Monocytes # (Manual) Eosinophils # (Manual) Percent Retic PT 17.6 H INR 1.45 H D-Dimer POC ABG pH POC ABG pCO2 POC ABG pO2 Sodium Potassium Chloride Carbon Dioxide BUN Creatinine Glucose POC Glucose 177 H Lactic Acid Calcium Phosphorus Magnesium Ferritin Total Bilirubin Lactate Dehydrogenase Total Creatine Kinase CK-MB (CK-2) C-Reactive Protein NT-Pro-B Natriuret Pep Total Protein Albumin Triglycerides Urine WBC (Auto) Urine Creatinine Urine Total Protein Vancomycin Trough Random Vancomycin Absolute CD4 Count 2178 H Absolute CD19 Count 824 H Crossmatch 10/10/16 10/11/16 10/11/16 17:38 00:04 05:35 WBC RBC Hgb Hct MCV MCH RDW Plt Count [place] # Baso # Seg Neutrophils % Seg Neuts % (Manual) Lymphocytes % (Manual) Monocytes % (Manual) Eosinophils % (Manual) Nucleated RBC % Seg Neutrophils # Seg Neutrophils # Man Abs Lymphs (Manual) Lymphocytes # (Manual) Monocytes # (Manual) Eosinophils # (Manual) Percent Retic PT INR D-Dimer POC ABG pH POC ABG pCO2 56.6 H POC ABG pO2 63 L Sodium Potassium Chloride Carbon Dioxide BUN Creatinine Glucose POC Glucose 173 H 155 H Lactic Acid Calcium Phosphorus Magnesium Ferritin Total Bilirubin Lactate Dehydrogenase Total Creatine Kinase CK-MB (CK-2) C-Reactive Protein NT-Pro-B Natriuret Pep Total Protein Albumin Triglycerides Urine WBC (Auto) Urine Creatinine Urine Total Protein Vancomycin Trough Random Vancomycin Absolute CD4 Count Absolute CD19 Count Crossmatch 10/11/16 10/11/16 10/11/16 06:01 11:43 12:54 WBC 31.8 H RBC Hgb Hct MCV MCH RDW 17.8 H Plt Count [place] # Baso # Seg Neutrophils % Seg Neuts % (Manual) 84.0 H Lymphocytes % (Manual) 9.0 L Monocytes % (Manual) Eosinophils % (Manual) Nucleated RBC % 28.0 H Seg Neutrophils # Seg Neutrophils # Man 27.1 H Abs Lymphs (Manual) Lymphocytes # (Manual) Monocytes # (Manual) 1.6 H Eosinophils # (Manual) Percent Retic PT INR D-Dimer POC ABG pH POC ABG pCO2 POC ABG pO2 Sodium Potassium Chloride Carbon Dioxide BUN Creatinine Glucose POC Glucose 231 H 185 H Lactic Acid Calcium Phosphorus Magnesium Ferritin Total Bilirubin Lactate Dehydrogenase Total Creatine Kinase CK-MB (CK-2) C-Reactive Protein NT-Pro-B Natriuret Pep Total Protein Albumin Triglycerides Urine WBC (Auto) Urine Creatinine Urine Total Protein Vancomycin Trough Random Vancomycin Absolute CD4 Count Absolute CD19 Count Crossmatch 10/11/16 10/11/16 10/11/16 12:54 14:10 18:02 WBC RBC Hgb Hct MCV MCH RDW Plt Count [place] # Baso # Seg Neutrophils % Seg Neuts % (Manual) Lymphocytes % (Manual) Monocytes % (Manual) Eosinophils % (Manual) Nucleated RBC % Seg Neutrophils # Seg Neutrophils # Man Abs Lymphs (Manual) Lymphocytes # (Manual) Monocytes # (Manual) Eosinophils # (Manual) Percent Retic PT INR D-Dimer POC ABG pH 7.311 L POC ABG pCO2 71.4 H POC ABG pO2 59 L Sodium Potassium Chloride 97.1 L Carbon Dioxide BUN 57 H Creatinine 1.6 H Glucose 369 H POC Glucose 206 H Lactic Acid Calcium 8.2 L Phosphorus Magnesium Ferritin Total Bilirubin Lactate Dehydrogenase Total Creatine Kinase CK-MB (CK-2) C-Reactive Protein NT-Pro-B Natriuret Pep Total Protein Albumin Triglycerides Urine WBC (Auto) Urine Creatinine Urine Total Protein Vancomycin Trough Random Vancomycin Absolute CD4 Count Absolute CD19 Count Crossmatch 10/11/16 10/11/16 10/12/16 20:57 21:23 00:43 WBC RBC Hgb Hct MCV MCH RDW Plt Count [place] # Baso # Seg Neutrophils % Seg Neuts % (Manual) Lymphocytes % (Manual) Monocytes % (Manual) Eosinophils % (Manual) Nucleated RBC % Seg Neutrophils # Seg Neutrophils # Man Abs Lymphs (Manual) Lymphocytes # (Manual) Monocytes # (Manual) Eosinophils # (Manual) Percent Retic PT INR D-Dimer POC ABG pH 7.242 L POC ABG pCO2 88.4 H POC ABG pO2 57 L Sodium Potassium Chloride Carbon Dioxide BUN Creatinine Glucose POC Glucose 212 H Lactic Acid Calcium Phosphorus Magnesium Ferritin Total Bilirubin Lactate Dehydrogenase Total Creatine Kinase CK-MB (CK-2) C-Reactive Protein 3.00 H NT-Pro-B Natriuret Pep Total Protein Albumin Triglycerides Urine WBC (Auto) Urine Creatinine Urine Total Protein Vancomycin Trough Random Vancomycin Absolute CD4 Count Absolute CD19 Count Crossmatch 10/12/16 10/12/16 10/12/16 05:49 06:03 06:57 WBC 37.0 H RBC Hgb Hct MCV MCH RDW 18.0 H Plt Count [place] # 2.0 H Baso # 0.2 H Seg Neutrophils % 86.7 H Seg Neuts % (Manual) 91.5 H Lymphocytes % (Manual) 6.0 L Monocytes % (Manual) Eosinophils % (Manual) Nucleated RBC % 15.5 H Seg Neutrophils # 30.6 H Seg Neutrophils # Man 33.9 H Abs Lymphs (Manual) Lymphocytes # (Manual) Monocytes # (Manual) Eosinophils # (Manual) Percent Retic PT INR D-Dimer POC ABG pH 7.289 L POC ABG pCO2 82.4 H POC ABG pO2 65 L Sodium Potassium Chloride Carbon Dioxide BUN Creatinine Glucose POC Glucose 230 H Lactic Acid Calcium Phosphorus Magnesium Ferritin Total Bilirubin Lactate Dehydrogenase Total Creatine Kinase CK-MB (CK-2) C-Reactive Protein NT-Pro-B Natriuret Pep Total Protein Albumin Triglycerides Urine WBC (Auto) Urine Creatinine Urine Total Protein Vancomycin Trough Random Vancomycin Absolute CD4 Count Absolute CD19 Count Crossmatch 10/12/16 10/12/16 10/12/16 06:57 11:59 17:00 WBC RBC Hgb Hct MCV MCH RDW Plt Count [place] # Baso # Seg Neutrophils % Seg Neuts % (Manual) Lymphocytes % (Manual) Monocytes % (Manual) Eosinophils % (Manual) Nucleated RBC % Seg Neutrophils # Seg Neutrophils # Man Abs Lymphs (Manual) Lymphocytes # (Manual) Monocytes # (Manual) Eosinophils # (Manual) Percent Retic PT INR D-Dimer POC ABG pH POC ABG pCO2 POC ABG pO2 Sodium 151 H D 130 L D Potassium Chloride Carbon Dioxide 32 H BUN 62 H Creatinine 1.6 H Glucose 231 H POC Glucose 222 H Lactic Acid Calcium Phosphorus 4.90 H Magnesium Ferritin Total Bilirubin Lactate Dehydrogenase Total Creatine Kinase CK-MB (CK-2) C-Reactive Protein NT-Pro-B Natriuret Pep Total Protein Albumin Triglycerides Urine WBC (Auto) Urine Creatinine Urine Total Protein Vancomycin Trough Random Vancomycin Absolute CD4 Count Absolute CD19 Count Crossmatch 10/12/16 10/12/16 10/12/16 17:41 22:04 23:25 WBC RBC Hgb Hct MCV MCH RDW Plt Count [place] # Baso # Seg Neutrophils % Seg Neuts % (Manual) Lymphocytes % (Manual) Monocytes % (Manual) Eosinophils % (Manual) Nucleated RBC % Seg Neutrophils # Seg Neutrophils # Man Abs Lymphs (Manual) Lymphocytes # (Manual) Monocytes # (Manual) Eosinophils # (Manual) Percent Retic PT INR D-Dimer POC ABG pH 7.264 L POC ABG pCO2 89.1 H POC ABG pO2 62 L Sodium Potassium Chloride Carbon Dioxide BUN Creatinine Glucose POC Glucose 223 H 160 H Lactic Acid Calcium Phosphorus Magnesium Ferritin Total Bilirubin Lactate Dehydrogenase Total Creatine Kinase CK-MB (CK-2) C-Reactive Protein NT-Pro-B Natriuret Pep Total Protein Albumin Triglycerides Urine WBC (Auto) Urine Creatinine Urine Total Protein Vancomycin Trough Random Vancomycin Absolute CD4 Count Absolute CD19 Count Crossmatch 10/13/16 10/13/16 10/13/16 05:30 06:00 06:00 WBC 25.9 H RBC Hgb Hct MCV MCH RDW 18.1 H Plt Count [place] # Baso # Seg Neutrophils % Seg Neuts % (Manual) 85.0 H Lymphocytes % (Manual) 9.0 L Monocytes % (Manual) Eosinophils % (Manual) Nucleated RBC % 6.0 H Seg Neutrophils # Seg Neutrophils # Man 22.0 H Abs Lymphs (Manual) Lymphocytes # (Manual) Monocytes # (Manual) 1.4 H Eosinophils # (Manual) Percent Retic PT INR D-Dimer POC ABG pH 7.281 L POC ABG pCO2 89.6 H POC ABG pO2 63 L Sodium 148 H D Potassium Chloride Carbon Dioxide 36 H BUN 58 H Creatinine 1.3 H Glucose 189 H POC Glucose Lactic Acid Calcium Phosphorus Magnesium Ferritin Total Bilirubin Lactate Dehydrogenase Total Creatine Kinase CK-MB (CK-2) C-Reactive Protein NT-Pro-B Natriuret Pep Total Protein Albumin Triglycerides Urine WBC (Auto) Urine Creatinine Urine Total Protein Vancomycin Trough Random Vancomycin Absolute CD4 Count Absolute CD19 Count Crossmatch 10/13/16 10/13/16 10/13/16 06:20 11:10 17:26 WBC RBC Hgb Hct MCV MCH RDW Plt Count [place] # Baso # Seg Neutrophils % Seg Neuts % (Manual) Lymphocytes % (Manual) Monocytes % (Manual) Eosinophils % (Manual) Nucleated RBC % Seg Neutrophils # Seg Neutrophils # Man Abs Lymphs (Manual) Lymphocytes # (Manual) Monocytes # (Manual) Eosinophils # (Manual) Percent Retic PT INR D-Dimer POC ABG pH POC ABG pCO2 POC ABG pO2 Sodium Potassium Chloride Carbon Dioxide BUN Creatinine Glucose POC Glucose 192 H 198 H 162 H Lactic Acid Calcium Phosphorus Magnesium Ferritin Total Bilirubin Lactate Dehydrogenase Total Creatine Kinase CK-MB (CK-2) C-Reactive Protein NT-Pro-B Natriuret Pep Total Protein Albumin Triglycerides Urine WBC (Auto) Urine Creatinine Urine Total Protein Vancomycin Trough Random Vancomycin Absolute CD4 Count Absolute CD19 Count Crossmatch 10/13/16 10/13/16 10/13/16 20:40 20:57 23:33 WBC RBC Hgb Hct MCV MCH RDW Plt Count [place] # Baso # Seg Neutrophils % Seg Neuts % (Manual) Lymphocytes % (Manual) Monocytes % (Manual) Eosinophils % (Manual) Nucleated RBC % Seg Neutrophils # Seg Neutrophils # Man Abs Lymphs (Manual) Lymphocytes # (Manual) Monocytes # (Manual) Eosinophils # (Manual) Percent Retic PT INR D-Dimer POC ABG pH 7.201 L 7.455 H POC ABG pCO2 111.2 H 54.2 H POC ABG pO2 45 L 57 L Sodium 148 H Potassium Chloride Carbon Dioxide BUN Creatinine Glucose POC Glucose Lactic Acid Calcium Phosphorus Magnesium Ferritin Total Bilirubin Lactate Dehydrogenase Total Creatine Kinase CK-MB (CK-2) C-Reactive Protein NT-Pro-B Natriuret Pep Total Protein Albumin Triglycerides Urine WBC (Auto) Urine Creatinine Urine Total Protein Vancomycin Trough Random Vancomycin Absolute CD4 Count Absolute CD19 Count Crossmatch 10/14/16 10/14/16 10/14/16 00:48 04:12 05:30 WBC 23.1 H RBC 3.49 L Hgb 9.9 L Hct MCV MCH RDW 16.9 H Plt Count [place] # Baso # Seg Neutrophils % Seg Neuts % (Manual) 82.0 H Lymphocytes % (Manual) 9.0 L Monocytes % (Manual) Eosinophils % (Manual) Nucleated RBC % 2.0 H Seg Neutrophils # Seg Neutrophils # Man 18.9 H Abs Lymphs (Manual) Lymphocytes # (Manual) Monocytes # (Manual) 1.4 H Eosinophils # (Manual) Percent Retic PT INR D-Dimer POC ABG pH 7.497 H POC ABG pCO2 49.4 H POC ABG pO2 60 L Sodium Potassium Chloride Carbon Dioxide BUN Creatinine Glucose POC Glucose 147 H Lactic Acid Calcium Phosphorus Magnesium Ferritin Total Bilirubin Lactate Dehydrogenase Total Creatine Kinase CK-MB (CK-2) C-Reactive Protein NT-Pro-B Natriuret Pep Total Protein Albumin Triglycerides Urine WBC (Auto) Urine Creatinine Urine Total Protein Vancomycin Trough Random Vancomycin Absolute CD4 Count Absolute CD19 Count Crossmatch 10/14/16 10/14/16 10/14/16 05:30 05:30 05:53 WBC RBC Hgb Hct MCV MCH RDW Plt Count [place] # Baso # Seg Neutrophils % Seg Neuts % (Manual) Lymphocytes % (Manual) Monocytes % (Manual) Eosinophils % (Manual) Nucleated RBC % Seg Neutrophils # Seg Neutrophils # Man Abs Lymphs (Manual) Lymphocytes # (Manual) Monocytes # (Manual) Eosinophils # (Manual) Percent Retic PT INR D-Dimer POC ABG pH POC ABG pCO2 POC ABG pO2 Sodium 146 H Potassium Chloride Carbon Dioxide 35 H BUN 56 H Creatinine 1.3 H Glucose 155 H POC Glucose 156 H Lactic Acid Calcium Phosphorus 1.90 L D Magnesium 2.90 H Ferritin Total Bilirubin Lactate Dehydrogenase Total Creatine Kinase CK-MB (CK-2) C-Reactive Protein NT-Pro-B Natriuret Pep Total Protein Albumin Triglycerides Urine WBC (Auto) Urine Creatinine Urine Total Protein Vancomycin Trough Random Vancomycin Absolute CD4 Count Absolute CD19 Count Crossmatch 10/14/16 10/14/16 10/14/16 12:05 14:34 17:33 WBC RBC Hgb Hct MCV MCH RDW Plt Count [place] # Baso # Seg Neutrophils % Seg Neuts % (Manual) Lymphocytes % (Manual) Monocytes % (Manual) Eosinophils % (Manual) Nucleated RBC % Seg Neutrophils # Seg Neutrophils # Man Abs Lymphs (Manual) Lymphocytes # (Manual) Monocytes # (Manual) Eosinophils # (Manual) Percent Retic PT INR D-Dimer POC ABG pH POC ABG pCO2 57.4 H POC ABG pO2 177 H Sodium Potassium Chloride Carbon Dioxide BUN Creatinine Glucose POC Glucose 145 H 172 H Lactic Acid Calcium Phosphorus Magnesium Ferritin Total Bilirubin Lactate Dehydrogenase Total Creatine Kinase CK-MB (CK-2) C-Reactive Protein NT-Pro-B Natriuret Pep Total Protein Albumin Triglycerides Urine WBC (Auto) Urine Creatinine Urine Total Protein Vancomycin Trough Random Vancomycin Absolute CD4 Count Absolute CD19 Count Crossmatch 10/14/16 10/14/16 10/15/16 21:57 23:31 05:10 WBC 23.9 H RBC 3.33 L Hgb 9.5 L Hct 29.7 L MCV MCH RDW 16.8 H Plt Count [place] # Baso # Seg Neutrophils % Seg Neuts % (Manual) Lymphocytes % (Manual) Monocytes % (Manual) Eosinophils % (Manual) Nucleated RBC % 4.0 H Seg Neutrophils # Seg Neutrophils # Man 15.3 H Abs Lymphs (Manual) Lymphocytes # (Manual) Monocytes # (Manual) 1.7 H Eosinophils # (Manual) 0.5 H Percent Retic PT INR D-Dimer POC ABG pH POC ABG pCO2 53.6 H POC ABG pO2 60 L Sodium Potassium Chloride Carbon Dioxide BUN Creatinine Glucose POC Glucose 201 H Lactic Acid Calcium Phosphorus Magnesium Ferritin Total Bilirubin Lactate Dehydrogenase Total Creatine Kinase CK-MB (CK-2) C-Reactive Protein NT-Pro-B Natriuret Pep Total Protein Albumin Triglycerides Urine WBC (Auto) Urine Creatinine Urine Total Protein Vancomycin Trough Random Vancomycin Absolute CD4 Count Absolute CD19 Count Crossmatch 10/15/16 10/15/16 10/15/16 05:10 05:10 05:40 WBC RBC Hgb Hct MCV MCH RDW Plt Count [place] # Baso # Seg Neutrophils % Seg Neuts % (Manual) Lymphocytes % (Manual) Monocytes % (Manual) Eosinophils % (Manual) Nucleated RBC % Seg Neutrophils # Seg Neutrophils # Man Abs Lymphs (Manual) Lymphocytes # (Manual) Monocytes # (Manual) Eosinophils # (Manual) Percent Retic PT INR D-Dimer POC ABG pH POC ABG pCO2 POC ABG pO2 Sodium Potassium 3.5 L Chloride Carbon Dioxide 33 H BUN 61 H Creatinine Glucose 127 H POC Glucose 145 H Lactic Acid Calcium 8.2 L Phosphorus 4.90 H D Magnesium 2.90 H Ferritin Total Bilirubin Lactate Dehydrogenase Total Creatine Kinase CK-MB (CK-2) C-Reactive Protein NT-Pro-B Natriuret Pep Total Protein Albumin Triglycerides Urine WBC (Auto) Urine Creatinine Urine Total Protein Vancomycin Trough Random Vancomycin Absolute CD4 Count Absolute CD19 Count Crossmatch 10/15/16 10/15/16 10/15/16 06:17 11:09 17:50 WBC RBC Hgb Hct MCV MCH RDW Plt Count [place] # Baso # Seg Neutrophils % Seg Neuts % (Manual) Lymphocytes % (Manual) Monocytes % (Manual) Eosinophils % (Manual) Nucleated RBC % Seg Neutrophils # Seg Neutrophils # Man Abs Lymphs (Manual) Lymphocytes # (Manual) Monocytes # (Manual) Eosinophils # (Manual) Percent Retic PT INR D-Dimer POC ABG pH POC ABG pCO2 65.2 H POC ABG pO2 Sodium Potassium Chloride Carbon Dioxide BUN Creatinine Glucose POC Glucose 169 H 210 H Lactic Acid Calcium Phosphorus Magnesium Ferritin Total Bilirubin Lactate Dehydrogenase Total Creatine Kinase CK-MB (CK-2) C-Reactive Protein NT-Pro-B Natriuret Pep Total Protein Albumin Triglycerides Urine WBC (Auto) Urine Creatinine Urine Total Protein Vancomycin Trough Random Vancomycin Absolute CD4 Count Absolute CD19 Count Crossmatch 10/15/16 10/16/16 10/16/16 23:39 05:51 06:07 WBC RBC Hgb Hct MCV MCH RDW Plt Count [place] # Baso # Seg Neutrophils % Seg Neuts % (Manual) Lymphocytes % (Manual) Monocytes % (Manual) Eosinophils % (Manual) Nucleated RBC % Seg Neutrophils # Seg Neutrophils # Man Abs Lymphs (Manual) Lymphocytes # (Manual) Monocytes # (Manual) Eosinophils # (Manual) Percent Retic PT INR D-Dimer POC ABG pH POC ABG pCO2 56.8 H POC ABG pO2 50 L Sodium Potassium Chloride Carbon Dioxide BUN Creatinine Glucose POC Glucose 291 H 216 H Lactic Acid Calcium Phosphorus Magnesium Ferritin Total Bilirubin Lactate Dehydrogenase Total Creatine Kinase CK-MB (CK-2) C-Reactive Protein NT-Pro-B Natriuret Pep Total Protein Albumin Triglycerides Urine WBC (Auto) Urine Creatinine Urine Total Protein Vancomycin Trough Random Vancomycin Absolute CD4 Count Absolute CD19 Count Crossmatch 10/16/16 10/16/16 10/16/16 11:52 15:00 15:00 WBC 22.2 H RBC 3.13 L Hgb 9.0 L Hct 28.1 L MCV MCH RDW 15.9 H Plt Count [place] # Baso # Seg Neutrophils % Seg Neuts % (Manual) 96.0 H Lymphocytes % (Manual) 3.0 L Monocytes % (Manual) Eosinophils % (Manual) Nucleated RBC % 1.0 H Seg Neutrophils # Seg Neutrophils # Man 21.3 H Abs Lymphs (Manual) Lymphocytes # (Manual) 0.7 L Monocytes # (Manual) Eosinophils # (Manual) Percent Retic PT INR D-Dimer POC ABG pH POC ABG pCO2 POC ABG pO2 Sodium 146 H Potassium Chloride Carbon Dioxide 32 H BUN 55 H Creatinine Glucose 234 H POC Glucose 237 H Lactic Acid Calcium Phosphorus Magnesium Ferritin Total Bilirubin Lactate Dehydrogenase Total Creatine Kinase CK-MB (CK-2) C-Reactive Protein NT-Pro-B Natriuret Pep Total Protein Albumin Triglycerides Urine WBC (Auto) Urine Creatinine Urine Total Protein Vancomycin Trough Random Vancomycin Absolute CD4 Count Absolute CD19 Count Crossmatch 10/16/16 10/17/16 10/17/16 17:28 00:03 03:56 WBC 21.4 H RBC 3.18 L Hgb 8.9 L Hct 28.0 L MCV MCH RDW 16.0 H Plt Count [place] # Baso # Seg Neutrophils % Seg Neuts % (Manual) 98.0 H Lymphocytes % (Manual) 2.0 L Monocytes % (Manual) Eosinophils % (Manual) Nucleated RBC % 1.0 H Seg Neutrophils # 20.2 H Seg Neutrophils # Man 21.0 H Abs Lymphs (Manual) Lymphocytes # (Manual) 0.4 L Monocytes # (Manual) Eosinophils # (Manual) Percent Retic PT INR D-Dimer POC ABG pH POC ABG pCO2 POC ABG pO2 Sodium Potassium Chloride Carbon Dioxide BUN Creatinine Glucose POC Glucose 258 H 192 H Lactic Acid Calcium Phosphorus Magnesium Ferritin Total Bilirubin Lactate Dehydrogenase Total Creatine Kinase CK-MB (CK-2) C-Reactive Protein NT-Pro-B Natriuret Pep Total Protein Albumin Triglycerides Urine WBC (Auto) Urine Creatinine Urine Total Protein Vancomycin Trough Random Vancomycin Absolute CD4 Count Absolute CD19 Count Crossmatch 10/17/16 10/17/16 10/17/16 05:00 06:56 12:27 WBC RBC Hgb Hct MCV MCH RDW Plt Count [place] # Baso # Seg Neutrophils % Seg Neuts % (Manual) Lymphocytes % (Manual) Monocytes % (Manual) Eosinophils % (Manual) Nucleated RBC % Seg Neutrophils # Seg Neutrophils # Man Abs Lymphs (Manual) Lymphocytes # (Manual) Monocytes # (Manual) Eosinophils # (Manual) Percent Retic PT INR D-Dimer POC ABG pH POC ABG pCO2 64.3 H POC ABG pO2 72 L Sodium 149 H Potassium Chloride Carbon Dioxide 34 H BUN 50 H Creatinine Glucose 203 H POC Glucose 252 H Lactic Acid Calcium Phosphorus Magnesium Ferritin Total Bilirubin Lactate Dehydrogenase Total Creatine Kinase CK-MB (CK-2) C-Reactive Protein NT-Pro-B Natriuret Pep Total Protein Albumin Triglycerides Urine WBC (Auto) Urine Creatinine Urine Total Protein Vancomycin Trough Random Vancomycin Absolute CD4 Count Absolute CD19 Count Crossmatch 10/17/16 10/17/16 10/18/16 18:09 23:35 04:45 WBC RBC Hgb Hct MCV MCH RDW Plt Count [place] # Baso # Seg Neutrophils % Seg Neuts % (Manual) Lymphocytes % (Manual) Monocytes % (Manual) Eosinophils % (Manual) Nucleated RBC % Seg Neutrophils # Seg Neutrophils # Man Abs Lymphs (Manual) Lymphocytes # (Manual) Monocytes # (Manual) Eosinophils # (Manual) Percent Retic PT INR D-Dimer POC ABG pH POC ABG pCO2 66.8 H POC ABG pO2 59 L Sodium Potassium Chloride Carbon Dioxide BUN Creatinine Glucose POC Glucose 275 H 201 H Lactic Acid Calcium Phosphorus Magnesium Ferritin Total Bilirubin Lactate Dehydrogenase Total Creatine Kinase CK-MB (CK-2) C-Reactive Protein NT-Pro-B Natriuret Pep Total Protein Albumin Triglycerides Urine WBC (Auto) Urine Creatinine Urine Total Protein Vancomycin Trough Random Vancomycin Absolute CD4 Count Absolute CD19 Count Crossmatch 10/18/16 10/18/16 10/18/16 05:11 05:11 05:33 WBC 24.0 H RBC 3.54 L Hgb 9.7 L Hct MCV MCH 27 L RDW 15.8 H Plt Count [place] # Baso # Seg Neutrophils % Seg Neuts % (Manual) 94.0 H Lymphocytes % (Manual) 5.0 L Monocytes % (Manual) Eosinophils % (Manual) Nucleated RBC % 2.0 H Seg Neutrophils # Seg Neutrophils # Man 22.6 H Abs Lymphs (Manual) Lymphocytes # (Manual) Monocytes # (Manual) Eosinophils # (Manual) Percent Retic PT INR D-Dimer POC ABG pH POC ABG pCO2 POC ABG pO2 Sodium Potassium Chloride Carbon Dioxide 35 H BUN 53 H Creatinine Glucose 236 H POC Glucose 232 H Lactic Acid Calcium Phosphorus Magnesium Ferritin Total Bilirubin Lactate Dehydrogenase Total Creatine Kinase CK-MB (CK-2) C-Reactive Protein NT-Pro-B Natriuret Pep Total Protein Albumin Triglycerides Urine WBC (Auto) Urine Creatinine Urine Total Protein Vancomycin Trough Random Vancomycin Absolute CD4 Count Absolute CD19 Count Crossmatch Allied health notes reviewed: RT
[2016-10-18] MEDS: BROVANA NEBU IH SCH ×2 (10:50→20:18)
[2016-10-18] MEDS ORDERED: LEVEMIR SUB-Q ONE (13:00)
--- NOTE | 2016-10-18 14:28 | Progress Note ---
Assessment and Plan - Patient Problems (1) Acute respiratory failure with hypoxia Current Visit: Yes Status: Acute Plan to address problem: 1. Patient is day #3 of Zyvox. Will continue. Patient remains on steroids. 2. No new clinical changes. (2) Leukemoid reaction Current Visit: Yes Status: Acute Plan to address problem: Plateau at [id number]. No new localizing issues. Subjective Date of service: 10/18/16 Principal diagnosis: Acute Hypoxemic Respiratory Failure; ARDS Interval history: Remains in ICU. Still hypoxemic. Afebrile. Objective - Constitutional Vitals: Vital Signs Temp Pulse Resp BP Pulse Ox 99.3 F 102 H 18 137/68 88 10/18/16 12:00 10/18/16 13:45 10/18/16 13:45 10/18/16 13:45 10/18/16 13:45 Temperature -Last 24 Hours Temperature 99.3 F Temperature 99 F Temperature 99.4 F Temperature 99.6 F Temperature 99.1 F Temperature 100.1 F Temperature 100.1 F General appearance: Present: obese - EENT Eyes: no conjunctival injection ENT: other (white oral secretions noted; ET and Dobhoff tubes in place) - Respiratory Respiratory: bilateral: CTA, negative: rales, rhonchi - Cardiovascular Rhythm: regular (mild tachycardia) Heart Sounds: Present: S1 & S2 Extremities: No edema - Gastrointestinal General gastrointestinal: Present: soft, non-distended - Genitourinary Female genitourinary: other (Montes with yellow urine) - Labs CBC & Chem 7: 10/18/16 05:11 10/18/16 05:11 Labs: Abnormal lab results 10/17/16 10/17/16 10/18/16 Range/Units 18:09 23:35 04:45 WBC (4.5-11.0) K/mm3 RBC (3.65-5.03) M/mm3 Hgb (10.1-14.3) gm/dl MCH (28-32) pg RDW (13.2-15.2) % Seg Neuts % (Manual) (40.0-70.0) % Lymphocytes % (Manual) (13.4-35.0) % Nucleated RBC % (0.0-0.9) % Seg Neutrophils # Man (1.8-7.7) K/mm3 POC ABG pCO2 66.8 H (35-45) POC ABG pO2 59 L (80-105) Carbon Dioxide (22-30) mmol/L BUN (7-17) mg/dL Glucose (65-100) mg/dL POC Glucose 275 H 201 H (70-105) 10/18/16 10/18/16 10/18/16 Range/Units 05:11 05:11 05:33 WBC 24.0 H (4.5-11.0) K/mm3 RBC 3.54 L (3.65-5.03) M/mm3 Hgb 9.7 L (10.1-14.3) gm/dl MCH 27 L (28-32) pg RDW 15.8 H (13.2-15.2) % Seg Neuts % (Manual) 94.0 H (40.0-70.0) % Lymphocytes % (Manual) 5.0 L (13.4-35.0) % Nucleated RBC % 2.0 H (0.0-0.9) % Seg Neutrophils # Man 22.6 H (1.8-7.7) K/mm3 POC ABG pCO2 (35-45) POC ABG pO2 (80-105) Carbon Dioxide 35 H (22-30) mmol/L BUN 53 H (7-17) mg/dL Glucose 236 H (65-100) mg/dL POC Glucose 232 H (70-105) 10/18/16 Range/Units 12:22 WBC (4.5-11.0) K/mm3 RBC (3.65-5.03) M/mm3 Hgb (10.1-14.3) gm/dl MCH (28-32) pg RDW (13.2-15.2) % Seg Neuts % (Manual) (40.0-70.0) % Lymphocytes % (Manual) (13.4-35.0) % Nucleated RBC % (0.0-0.9) % Seg Neutrophils # Man (1.8-7.7) K/mm3 POC ABG pCO2 (35-45) POC ABG pO2 (80-105) Carbon Dioxide (22-30) mmol/L BUN (7-17) mg/dL Glucose (65-100) mg/dL POC Glucose 237 H (70-105) Microbiology 10/15/16 Unknown Bronchoalveolar Lavage - Left Lower Lobe Respiratory Culture - Final 10/12/16 13:28 Tracheal Aspirate Sputum Culture - Final Methicillin Resist S. Aureus 10/04/16 04:05 Tracheal Aspirate Herpes Simplex Virus Culture - Final 10/03/16 09:20 Peripheral/Venous Blood Culture - Final NO GROWTH AFTER 5 DAYS 10/03/16 09:30 Picc Blood Culture - Final NO GROWTH AFTER 5 DAYS 10/03/16 09:06 Urine,Catheterized - Indwelling Catheter Urine Culture - Final 09/27/16 22:47 Peripheral/Venous Blood Culture - Final NO GROWTH AFTER 5 DAYS 09/27/16 22:47 Peripheral/Venous Blood Culture - Final NO GROWTH AFTER 5 DAYS 09/27/16 15:06 Peripheral/Venous Blood Culture - Final NO GROWTH AFTER 5 DAYS 09/27/16 14:40 Peripheral/Venous Blood Culture - Final NO GROWTH AFTER 5 DAYS 09/30/16 Unknown Tracheal Aspirate Sputum Culture - Final Active Medications Acetaminophen (Tylenol) 650 mg PO Q4H PRN PRN Reason: Pain MILD(1-3)/Fever >100.5/PALACIOS Last Admin: 10/07/16 18:13 Dose: 650 mg Albuterol/Ipratropium (Duoneb 0.5 Mg-3 Mg/3 Ml Soln) 1 ampul IH Q6HRT [facility] Last Admin: 10/18/16 10:49 Dose: 1 ampul Lipase/Protease/Amylase (Pancreaze Dr 10,500 Unit) 1 each FEEDTUBE PRN PRN PRN Reason: For Clogged Feeding Tube Arformoterol Tartrate (Brovana Nebu) 15 mcg IH Q12HRT [facility] Last Admin: 10/18/16 10:50 Dose: 15 mcg Aspirin (Aspirin) 325 mg PO QDAY [facility] Last Admin: 10/18/16 09:22 Dose: 325 mg Budesonide (Pulmicort) 0.5 mg IH Q12HRT [facility] Last Admin: 10/18/16 10:49 Dose: 0.5 mg Diphenhydramine HCl (Benadryl) 12.5 mg IV Q4H PRN PRN Reason: Itching Last Admin: 09/30/16 07:02 Dose: 12.5 mg Enoxaparin Sodium (Lovenox) 40 mg SUB-Q QDAY [facility] Last Admin: 10/18/16 09:20 Dose: 40 mg Famotidine (Pepcid) 20 mg PO BID [facility] Last Admin: 10/18/16 09:21 Dose: 20 mg Folic Acid (Folvite) 1 mg PO QDAY [facility] Last Admin: 10/18/16 09:22 Dose: 1 mg Hydrophilic Ointment (Vaseline Lip Therapy) 1 applic TP Q2HR PRN PRN Reason: Dry Lips Fentanyl Citrate (Fentanyl Drip Premix) 2,000 mcg in 100 mls @ 4.649 mls/hr IV TITR SADAF; 1 MCG/KG/HR PRN Reason: Protocol Last Admin: 10/18/16 05:50 Dose: 2 mcg/kg/hr, 9.299 mls/hr Midazolam HCl 100 mg/ Sodium (Chloride) 100 mls @ 2 mls/hr IV TITR SADAF; 2 MG/HR PRN Reason: Protocol Last Admin: 10/04/16 12:54 Dose: 2 mg/hr, 2 mls/hr Dextrose (D5w) 1,000 mls @ 50 mls/hr IV DIRECT SADAF Last Admin: 10/17/16 23:04 Dose: 50 mls/hr Propofol (Diprivan 10 Mg/Ml) 1,000 mg in 100 mls @ 3.045 mls/hr IV TITR SADAF; 5 MCG/KG/MIN PRN Reason: Protocol Last Admin: 10/18/16 09:18 Dose: 5 mcg/kg/min, 3.045 mls/hr Insulin Detemir (Levemir) 20 units SUB-Q DAILY SADAF Insulin Human Regular (Novolin R) 0 units SUB-Q Q6HR SADAF PRN Reason: Protocol Last Admin: 10/18/16 13:31 Dose: 2 units Linezolid (Zyvox) 600 mg PO Q12HR SADAF PRN Reason: Protocol Last Admin: 10/18/16 09:21 Dose: 600 mg Methylprednisolone Sodium Succinate (Solu-Medrol) 125 mg IV Q6H [facility] Last Admin: 10/18/16 09:37 Dose: 125 mg Multi-Ingred Cream/Lotion/Oil/Oint (Artificial Tears Ophth Oint) 1 applic OU Q4HR PRN PRN Reason: Dry Eye(s) Multivitamins (Theragran Tab) 1 each PO QDAY [facility] Last Admin: 10/18/16 09:22 Dose: 1 each Ondansetron HCl (Zofran) 4 mg IV Q8H PRN PRN Reason: Nausea And Vomiting Last Admin: 09/29/16 23:07 Dose: 4 mg Promethazine HCl (Phenergan) 25 mg SC Q6H PRN PRN Reason: Nausea And Vomiting Last Admin: 09/25/16 22:05 Dose: 25 mg Senna (Senokot) 17.2 mg PO DAILY [facility] Last Admin: 10/18/16 09:21 Dose: 17.2 mg Simple Syrup (Simple Syrup) 15 ml FEEDTUBE PRN PRN PRN Reason: Hypoglycemia Simple Syrup (Simple Syrup) 30 ml FEEDTUBE PRN PRN PRN Reason: Hypoglycemia Sodium Bicarbonate (Sodium Bicarbonate) 325 mg FEEDTUBE PRN PRN PRN Reason: For Clogged Feeding Tube Sodium Chloride (Sodium Chloride Flush Syringe 10 Ml) 10 ml IV PRN PRN PRN Reason: LINE FLUSH Tramadol HCl (Ultram) 50 mg PO Q4H PRN PRN Reason: Pain, Moderate (4-6) Last Admin: 10/06/16 21:54 Dose: 50 mg Valacyclovir HCl (Valtrex) 500 mg PO DAILY [facility] Last Admin: 10/18/16 09:22 Dose: 500 mg Zolpidem Tartrate (Ambien) 5 mg PO QHS PRN PRN Reason: Sleep - Imaging and cardiology Chest x-ray: report reviewed (no significant interval change)
[2016-10-18] MEDS: D5W 1,000 ML IV SCH (17:36)
--- NOTE | 2016-10-18 23:07 | Consultation ---
History of Present Illness - Reason for Consult Consult date: 10/18/16 - History of Present Illness Patient seen/examined, resting in bed, still follows comands. Past History Past Medical History: anemia (sickle cell anemia) Social history: no significant social history Family history: no significant family history Medications and Allergies Allergies Allergy/AdvReac Type Severity Reaction Status Date / Time No Known Allergies Allergy Unverified 10/13/13 13:21 Home Medications Medication Instructions Recorded Confirmed Last Taken Type Folic Acid [Folvite] 1 mg PO QDAY 10/13/13 09/18/16 09/18/16 History oxyCODONE /ACETAMINOPHEN [Percocet 1 tab PO Q6HR PRN #10 tablet 10/13/1309/18/16 Rx 5/325 mg] Promethazine [Phenergan] 25 mg PO Q6H PRN 08/16/14 09/18/16 09/18/16 History valACYclovir [Valtrex] 500 mg PO DAILY 08/16/14 09/18/16 09/18/16 History Active Meds: Active Medications Acetaminophen (Tylenol) 650 mg PO Q4H PRN PRN Reason: Pain MILD(1-3)/Fever >100.5/PALACIOS Last Admin: 10/07/16 18:13 Dose: 650 mg Albuterol/Ipratropium (Duoneb 0.5 Mg-3 Mg/3 Ml Soln) 1 ampul IH Q6HRT [facility] Last Admin: 10/18/16 20:18 Dose: 1 ampul Lipase/Protease/Amylase (Pancreaze Dr 10,500 Unit) 1 each FEEDTUBE PRN PRN PRN Reason: For Clogged Feeding Tube Arformoterol Tartrate (Brovana Nebu) 15 mcg IH Q12HRT [facility] Last Admin: 10/18/16 20:18 Dose: 15 mcg Aspirin (Aspirin) 325 mg PO QDAY [facility] Last Admin: 10/18/16 09:22 Dose: 325 mg Budesonide (Pulmicort) 0.5 mg IH Q12HRT [facility] Last Admin: 10/18/16 20:18 Dose: 0.5 mg Diphenhydramine HCl (Benadryl) 12.5 mg IV Q4H PRN PRN Reason: Itching Last Admin: 09/30/16 07:02 Dose: 12.5 mg Enoxaparin Sodium (Lovenox) 40 mg SUB-Q QDAY [facility] Last Admin: 10/18/16 09:20 Dose: 40 mg Famotidine (Pepcid) 20 mg PO BID [facility] Last Admin: 10/18/16 21:24 Dose: 20 mg Folic Acid (Folvite) 1 mg PO QDAY [facility] Last Admin: 10/18/16 09:22 Dose: 1 mg Hydrophilic Ointment (Vaseline Lip Therapy) 1 applic TP Q2HR PRN PRN Reason: Dry Lips Fentanyl Citrate (Fentanyl Drip Premix) 2,000 mcg in 100 mls @ 4.649 mls/hr IV TITR [facility]; 1 MCG/KG/HR PRN Reason: Protocol Last Admin: 10/18/16 15:24 Dose: 2 mcg/kg/hr, 9.299 mls/hr Midazolam HCl 100 mg/ Sodium (Chloride) 100 mls @ 2 mls/hr IV TITR [facility]; 2 MG/HR PRN Reason: Protocol Last Admin: 10/04/16 12:54 Dose: 2 mg/hr, 2 mls/hr Dextrose (D5w) 1,000 mls @ 50 mls/hr IV DIRECT [facility] Last Admin: 10/18/16 17:36 Dose: 50 mls/hr Propofol (Diprivan 10 Mg/Ml) 1,000 mg in 100 mls @ 3.045 mls/hr IV TITR [facility]; 5 MCG/KG/MIN PRN Reason: Protocol Last Admin: 10/18/16 09:18 Dose: 5 mcg/kg/min, 3.045 mls/hr Insulin Detemir (Levemir) 20 units SUB-Q DAILY [facility] Insulin Human Regular (Novolin R) 0 units SUB-Q Q6HR [facility] PRN Reason: Protocol Last Admin: 10/18/16 17:35 Dose: 4 units Linezolid (Zyvox) 600 mg PO Q12HR [facility] PRN Reason: Protocol Last Admin: 10/18/16 21:24 Dose: 600 mg Methylprednisolone Sodium Succinate (Solu-Medrol) 125 mg IV Q6H [facility] Last Admin: 10/18/16 20:57 Dose: 125 mg Multi-Ingred Cream/Lotion/Oil/Oint (Artificial Tears Ophth Oint) 1 applic OU Q4HR PRN PRN Reason: Dry Eye(s) Multivitamins (Theragran Tab) 1 each PO QDAY [facility] Last Admin: 10/18/16 09:22 Dose: 1 each Ondansetron HCl (Zofran) 4 mg IV Q8H PRN PRN Reason: Nausea And Vomiting Last Admin: 09/29/16 23:07 Dose: 4 mg Promethazine HCl (Phenergan) 25 mg [place] Q6H PRN PRN Reason: Nausea And Vomiting Last Admin: 09/25/16 22:05 Dose: 25 mg Senna (Senokot) 17.2 mg PO DAILY [facility] Last Admin: 10/18/16 09:21 Dose: 17.2 mg Simple Syrup (Simple Syrup) 15 ml FEEDTUBE PRN PRN PRN Reason: Hypoglycemia Simple Syrup (Simple Syrup) 30 ml FEEDTUBE PRN PRN PRN Reason: Hypoglycemia Sodium Bicarbonate (Sodium Bicarbonate) 325 mg FEEDTUBE PRN PRN PRN Reason: For Clogged Feeding Tube Sodium Chloride (Sodium Chloride Flush Syringe 10 Ml) 10 ml IV PRN PRN PRN Reason: LINE FLUSH Tramadol HCl (Ultram) 50 mg PO Q4H PRN PRN Reason: Pain, Moderate (4-6) Last Admin: 10/06/16 21:54 Dose: 50 mg Valacyclovir HCl (Valtrex) 500 mg PO DAILY [facility] Last Admin: 10/18/16 09:22 Dose: 500 mg Zolpidem Tartrate (Ambien) 5 mg PO QHS PRN PRN Reason: Sleep Review of Systems Breasts: deferred Respiratory: other (remains on the vent.) Exam - Constitutional Vitals: Temp Pulse Resp BP Pulse Ox 99.2 F 91 H 29 H 130/77 97 10/18/16 20:00 10/18/16 20:50 10/18/16 20:50 10/18/16 20:18 10/18/16 20:50 General appearance: Present: severe distress, well-nourished - EENT Eyes: Present: PERRL ENT: hearing intact, clear oral mucosa - Neck Neck: Present: supple, normal ROM - Respiratory Respiratory: bilateral: other (on the vent) - Cardiovascular Heart Sounds: Present: S1 & S2. Absent: rub, click - Extremities Extremities: pulses symmetrical, No edema Peripheral Pulses: within normal limits - Abdominal General gastrointestinal: Present: soft, non-tender, non-distended, normal bowel sounds Female genitourinary: Present: deferred - Rectal Rectal Exam: deferred - Integumentary Integumentary: Present: clear, warm, dry Results - Labs CBC & Chem 7: 10/18/16 05:11 10/18/16 05:11 Labs: Abnormal lab results 10/17/16 10/18/16 10/18/16 Range/Units 23:35 04:45 05:11 WBC 24.0 H (4.5-11.0) K/mm3 RBC 3.54 L (3.65-5.03) M/mm3 Hgb 9.7 L (10.1-14.3) gm/dl MCH 27 L (28-32) pg RDW 15.8 H (13.2-15.2) % Seg Neuts % (Manual) 94.0 H (40.0-70.0) % Lymphocytes % (Manual) 5.0 L (13.4-35.0) % Nucleated RBC % 2.0 H (0.0-0.9) % Seg Neutrophils # Man 22.6 H (1.8-7.7) K/mm3 POC ABG pCO2 66.8 H (35-45) POC ABG pO2 59 L (80-105) Carbon Dioxide (22-30) mmol/L BUN (7-17) mg/dL Glucose (65-100) mg/dL POC Glucose 201 H (70-105) 10/18/16 10/18/16 10/18/16 Range/Units 05:11 05:33 12:22 WBC (4.5-11.0) K/mm3 RBC (3.65-5.03) M/mm3 Hgb (10.1-14.3) gm/dl MCH (28-32) pg RDW (13.2-15.2) % Seg Neuts % (Manual) (40.0-70.0) % Lymphocytes % (Manual) (13.4-35.0) % Nucleated RBC % (0.0-0.9) % Seg Neutrophils # Man (1.8-7.7) K/mm3 POC ABG pCO2 (35-45) POC ABG pO2 (80-105) Carbon Dioxide 35 H (22-30) mmol/L BUN 53 H (7-17) mg/dL Glucose 236 H (65-100) mg/dL POC Glucose 232 H 237 H (70-105) / Range/Units 17:18 WBC (4.5-11.0) K/mm3 RBC (3.65-5.03) M/mm3 Hgb (10.1-14.3) gm/dl MCH (28-32) pg RDW (13.2-15.2) % Seg Neuts % (Manual) (40.0-70.0) % Lymphocytes % (Manual) (13.4-35.0) % Nucleated RBC % (0.0-0.9) % Seg Neutrophils # Man (1.8-7.7) K/mm3 POC ABG pCO2 (35-45) POC ABG pO2 (80-105) Carbon Dioxide (22-30) mmol/L BUN (7-17) mg/dL Glucose (65-100) mg/dL POC Glucose 300 H (70-105) Assessment and Plan - Patient Problems (1) Sepsis Current Visit: Yes Status: Acute Qualifiers: Sepsis type: sepsis due to unspecified organism Qualified Code(s): A41.9 - Sepsis, unspecified organism Plan to address problem: SEE w/up in the notes. No improvement so far. worsening sepsis. Slight improvement (2) Sleep apnea syndrome Current Visit: Yes Status: Acute Qualifiers: Sleep apnea type: S Plan to address problem: oxygen/BIPAP management. Patient now in full resp failure, and on the vent. (3) UTI (urinary tract infection) Current Visit: Yes Status: Acute Qualifiers: Urinary tract infection type: U Hematuria presence: H Indwelling urinary catheter type: I Encounter type: E Plan to address problem: patient already on abx iv. may need culture sent. culture no growth. (4) Anemia Current Visit: Yes Status: Acute Qualifiers: Anemia type: A Iron deficiency anemia type: I Vitamin B12 deficiency anemia type: V Folate deficiency anemia type: F Bone marrow failure anemia type: B Hemolytic anemia type: H Other causes of anemia: O Plan to address problem: will transfuse if hgb 7.5 or less. no new issues at this time. May transfuse if further drop. (5) Leukocytosis Current Visit: Yes Status: Acute Qualifiers: Leukocytosis type: L Plan to address problem: will order flow, and try leukophoresis. instead, exchange transfusion is done today. improving.
[2016-10-19] MEDS: fentaNYL DRIP Premix 2,000 MCG/100 ML BAG IV SCH ×3 (00:16→23:05)
[2016-10-19] MEDS: DUONEB 0.5 MG-3 MG/3 ML SOLN IH SCH ×4 (01:46→19:34)
[2016-10-19 04:58] LABS: ISTAT Base Excess 15; ISTAT HCO3 39.9; ISTAT PCO2 66.7 (35-45); ISTAT PH 7.385 (7.35-7.45); ISTAT PO2 55 (80-105); ISTAT SO2 86; ISTAT TCO2 42
--- NOTE | 2016-10-19 05:52 | Progress Note ---
Assessment and Plan - Patient Problems (1) Acute respiratory failure with hypoxia Current Visit: Yes Status: Acute Plan to address problem: Continuing steroids per wool classer. (2) Healthcare-associated pneumonia Current Visit: Yes Status: Acute Plan to address problem: Continuing Linezolid. Currently day #4. No growth seen on recent BAL culture, also no evidence of active viral syndrome. Subjective Date of service: 10/19/16 Principal diagnosis: Acute Hypoxemic Respiratory Failure; ARDS Interval history: Remains in ICU. Afebrile. Still hypoxemic. On steroids. Objective - Exam Narrative Exam: intubated, FiO2 40%, more alert and responsive to voice - Constitutional Vitals: Vital Signs Temp Pulse Resp BP Pulse Ox 99.2 F 113 H 30 H 105/53 91 10/19/16 03:45 10/19/16 04:28 10/19/16 04:15 10/19/16 04:28 10/19/16 04:28 Temperature -Last 24 Hours Temperature 99.2 F Temperature 99.2 F Temperature 99.2 F Temperature 99 F Temperature 99.3 F Temperature 99 F General appearance: Present: no acute distress, obese - EENT Eyes: exopthalmos - Respiratory Respiratory: bilateral: CTA, negative: rales - Cardiovascular Rhythm: regular (tachycardic to 110a) Heart Sounds: Present: S1 & S2 Extremities: No edema - Gastrointestinal General gastrointestinal: Present: soft, non-distended - Genitourinary Female genitourinary: other (Montes with grossly normal urine) - Integumentary Integumentary: no rash - Neurologic Neurologic: moves all extremities - Labs CBC & Chem 7: 10/18/16 05:11 10/18/16 05:11 Labs: Abnormal lab results 10/18/16 10/18/16 10/18/16 Range/Units 05:11 12:22 17:18 WBC 24.0 H (4.5-11.0) K/mm3 RBC 3.54 L (3.65-5.03) M/mm3 Hgb 9.7 L (10.1-14.3) gm/dl MCH 27 L (28-32) pg RDW 15.8 H (13.2-15.2) % Seg Neuts % (Manual) 94.0 H (40.0-70.0) % Lymphocytes % (Manual) 5.0 L (13.4-35.0) % Nucleated RBC % 2.0 H (0.0-0.9) % Seg Neutrophils # Man 22.6 H (1.8-7.7) K/mm3 POC ABG pCO2 (35-45) POC ABG pO2 (80-105) POC Glucose 237 H 300 H (70-105) 10/18/16 10/19/16 Range/Units 23:41 04:32 WBC (4.5-11.0) K/mm3 RBC (3.65-5.03) M/mm3 Hgb (10.1-14.3) gm/dl MCH (28-32) pg RDW (13.2-15.2) % Seg Neuts % (Manual) (40.0-70.0) % Lymphocytes % (Manual) (13.4-35.0) % Nucleated RBC % (0.0-0.9) % Seg Neutrophils # Man (1.8-7.7) K/mm3 POC ABG pCO2 66.7 H (35-45) POC ABG pO2 55 L (80-105) POC Glucose 254 H (70-105) Microbiology 10/15/16 Unknown Bronchoalveolar Lavage - Left Lower Lobe Respiratory Culture - Final 10/12/16 13:28 Tracheal Aspirate Sputum Culture - Final Methicillin Resist S. Aureus 10/04/16 04:05 Tracheal Aspirate Herpes Simplex Virus Culture - Final 10/03/16 09:20 Peripheral/Venous Blood Culture - Final NO GROWTH AFTER 5 DAYS 10/03/16 09:30 Picc Blood Culture - Final NO GROWTH AFTER 5 DAYS 10/03/16 09:06 Urine,Catheterized - Indwelling Catheter Urine Culture - Final 09/27/16 22:47 Peripheral/Venous Blood Culture - Final NO GROWTH AFTER 5 DAYS 09/27/16 22:47 Peripheral/Venous Blood Culture - Final NO GROWTH AFTER 5 DAYS 09/27/16 15:06 Peripheral/Venous Blood Culture - Final NO GROWTH AFTER 5 DAYS 09/27/16 14:40 Peripheral/Venous Blood Culture - Final NO GROWTH AFTER 5 DAYS 09/30/16 Unknown Tracheal Aspirate Sputum Culture - Final Active Medications Acetaminophen (Tylenol) 650 mg PO Q4H PRN PRN Reason: Pain MILD(1-3)/Fever >100.5/PALACIOS Last Admin: 10/07/16 18:13 Dose: 650 mg Albuterol/Ipratropium (Duoneb 0.5 Mg-3 Mg/3 Ml Soln) 1 ampul IH Q6HRT [facility] Last Admin: 10/19/16 01:46 Dose: 1 ampul Lipase/Protease/Amylase (Pancreaze Dr 10,500 Unit) 1 each FEEDTUBE PRN PRN PRN Reason: For Clogged Feeding Tube Arformoterol Tartrate (Brovana Nebu) 15 mcg IH Q12HRT [facility] Last Admin: 10/18/16 20:18 Dose: 15 mcg Aspirin (Aspirin) 325 mg PO QDAY [facility] Last Admin: 10/18/16 09:22 Dose: 325 mg Budesonide (Pulmicort) 0.5 mg IH Q12HRT [facility] Last Admin: 10/18/16 20:18 Dose: 0.5 mg Diphenhydramine HCl (Benadryl) 12.5 mg IV Q4H PRN PRN Reason: Itching Last Admin: 09/30/16 07:02 Dose: 12.5 mg Enoxaparin Sodium (Lovenox) 40 mg SUB-Q QDAY [facility] Last Admin: 10/18/16 09:20 Dose: 40 mg Famotidine (Pepcid) 20 mg PO BID [facility] Last Admin: 10/18/16 21:24 Dose: 20 mg Folic Acid (Folvite) 1 mg PO QDAY [facility] Last Admin: 10/18/16 09:22 Dose: 1 mg Hydrophilic Ointment (Vaseline Lip Therapy) 1 applic TP Q2HR PRN PRN Reason: Dry Lips Fentanyl Citrate (Fentanyl Drip Premix) 2,000 mcg in 100 mls @ 4.649 mls/hr IV TITR [facility]; 1 MCG/KG/HR PRN Reason: Protocol Last Admin: 10/19/16 00:16 Dose: 2 mcg/kg/hr, 9.299 mls/hr Midazolam HCl 100 mg/ Sodium (Chloride) 100 mls @ 2 mls/hr IV TITR [facility]; 2 MG/HR PRN Reason: Protocol Last Admin: 10/04/16 12:54 Dose: 2 mg/hr, 2 mls/hr Dextrose (D5w) 1,000 mls @ 50 mls/hr IV DIRECT [facility] Last Admin: 10/18/16 17:36 Dose: 50 mls/hr Propofol (Diprivan 10 Mg/Ml) 1,000 mg in 100 mls @ 3.045 mls/hr IV TITR [facility]; 5 MCG/KG/MIN PRN Reason: Protocol Last Admin: 10/18/16 09:18 Dose: 5 mcg/kg/min, 3.045 mls/hr Insulin Detemir (Levemir) 20 units SUB-Q DAILY [facility] Insulin Human Regular (Novolin R) 0 units SUB-Q Q6HR [facility] PRN Reason: Protocol Last Admin: 10/19/16 00:17 Dose: 3 units Linezolid (Zyvox) 600 mg PO Q12HR [facility] PRN Reason: Protocol Last Admin: 10/18/16 21:24 Dose: 600 mg Methylprednisolone Sodium Succinate (Solu-Medrol) 125 mg IV Q6H [facility] Last Admin: 10/19/16 02:30 Dose: 125 mg Multi-Ingred Cream/Lotion/Oil/Oint (Artificial Tears Ophth Oint) 1 applic OU Q4HR PRN PRN Reason: Dry Eye(s) Multivitamins (Theragran Tab) 1 each PO QDAY [facility] Last Admin: 10/18/16 09:22 Dose: 1 each Ondansetron HCl (Zofran) 4 mg IV Q8H PRN PRN Reason: Nausea And Vomiting Last Admin: 09/29/16 23:07 Dose: 4 mg Promethazine HCl (Phenergan) 25 mg [place] Q6H PRN PRN Reason: Nausea And Vomiting Last Admin: 09/25/16 22:05 Dose: 25 mg Senna (Senokot) 17.2 mg PO DAILY [facility] Last Admin: 10/18/16 09:21 Dose: 17.2 mg Simple Syrup (Simple Syrup) 15 ml FEEDTUBE PRN PRN PRN Reason: Hypoglycemia Simple Syrup (Simple Syrup) 30 ml FEEDTUBE PRN PRN PRN Reason: Hypoglycemia Sodium Bicarbonate (Sodium Bicarbonate) 325 mg FEEDTUBE PRN PRN PRN Reason: For Clogged Feeding Tube Sodium Chloride (Sodium Chloride Flush Syringe 10 Ml) 10 ml IV PRN PRN PRN Reason: LINE FLUSH Tramadol HCl (Ultram) 50 mg PO Q4H PRN PRN Reason: Pain, Moderate (4-6) Last Admin: 10/06/16 21:54 Dose: 50 mg Valacyclovir HCl (Valtrex) 500 mg PO DAILY [facility] Last Admin: 10/18/16 09:22 Dose: 500 mg Zolpidem Tartrate (Ambien) 5 mg PO QHS PRN PRN Reason: Sleep - Imaging and cardiology Chest x-ray: report reviewed (diffuse airspace opacities)
--- NOTE | 2016-10-19 08:32 | Progress Note ---
Assessment and Plan Assessment and plan: The patient is a 41-year-old female with a history of sickle cell disease who was admitted for total hip arthroplasty for avascular necrosis of the left hip. She had left total hip arthroplasty on 09/25/2016 and developed acute hypoxemic respiratory failure following the POD 2 likely from ARDS and ultimately required intubation on 09/27/2016. Her hemoglobin level dropped from 8.1-6.9 on 09/30/2016, also noted to have hypokalemia with potassium level 3.1. Hospitalist service consulted for medical management. Patient remained intubated with mechanical ventilation. Her white count continued to trend up. Maintained on sepsis protocol, CT scan of abdomen and pelvis and thorax done without contrast to identify the source for infection. CT scan of the chest was suggestive for possible pneumonia. She is currently on broad-spectrum antibiotics, critically ill with poor prognosis. Acute respiratory failure with hypoxia. -has required mechanical ventilation for more than 96hrs -, intubated on 09/27/16 -Bronch on 10/15/16 showed alveolar hemorrhage and trachial aspirate growing MRSA , VRSA- MDR organism, started on zyvox and high dose steroids - on mechanical ventilation, still hoping to wean off vent -consider tracheostomy for mcc weaning when patient is more stable - pulmonary following, cont nebulizer, vent support, has completed antibiotics - wean off as tolerated -Pulmonary input appreciated, goal is to get PEEP below 10 and transfer to LTACH for weaning Gram Positive sepsis - Due to pneumonia - Spiking temp intermittently. Have temperature of 100.1 two ago. Wbc count still elevated. - continue Zyvox - ID Physician following MRSA pneumonia-trachial aspirate growing MRSA, VRSA- MDR organism Diffuse alveolar hemorrhage: high dose steroid initiated Severe anemia - History of thalassemia major - has received multiple prbc transfusion, and received exchange transfusion on 10/10/16 Transfuse to keep Hg above 7.5 - hematology following - Hemoglobin 9.4 today Avascular necrosis of the left hip - s/p total left hip arthoplasty on 09/25/16 Hypokalemia -resolved, after replacement. Hypernatremia -Continue free water via gastric tube, resolved, Snd 37 today Hypophosphatemia, now resolved Acute kidney injury - likely from sepsis syndrome and ATN, now resolving, Creatinine 0.7 - monitor renal function - nephrology following, renal function impro Leukocytosis WBC still elevated, improving, hematology input appreciated, flow cytometry has been ordered by the engineering and development director DVT prophylaxis with Lovenox FULL CODE STATUS Disposition: Plan is for LTAC placement NOK: Son: Jordan Love [phone] Son: Gino love: [phone] Daughter: Varun Love [phone] History Interval history: Still intubated Hospitalist Physical - Physical exam Narrative exam: Appearance:Morbidly obese HEENT: Normocephalic, atraumatic, orally intubated Neck : intubated, no JVD Lungs: Clear to auscultation bilaterally, no crackles or wheeze Heart : S1 and S2 regular, no murmurs, rubs or gallop Abdomen: soft, nontender, nondistended, normal bowel sounds Extremities:No edema, no clubbing or cyanosis Neuro: Awake,alert, follows commands, moves all ext - Constitutional Vitals: Temp Pulse Resp BP Pulse Ox 98.9 F 109 H 15 142/74 90 10/19/16 08:00 10/19/16 06:30 10/19/16 06:30 10/19/16 06:30 10/19/16 06:30 General appearance: Present: no acute distress, obese Results - Labs CBC & Chem 7: 10/19/16 10:18 10/19/16 10:18 Labs: Laboratory Last Values WBC 24.0 K/mm3 (4.5-11.0) H 10/18/16 05:11 RBC 3.54 M/mm3 (3.65-5.03) L 10/18/16 05:11 Hgb 9.7 gm/dl (10.1-14.3) L 10/18/16 05:11 Hct 31.5 % (30.3-42.9) 10/18/16 05:11 MCV 89 fl (79-97) 10/18/16 05:11 MCH 27 pg (28-32) L 10/18/16 05:11 MCHC 31 % (30-34) 10/18/16 05:11 RDW 15.8 % (13.2-15.2) H 10/18/16 05:11 Plt Count 405 K/mm3 (140-440) 10/18/16 05:11 Lymph % (Auto) 33.3 % (13.4-35.0) 09/20/16 10:35 [place] % (Auto) 1.5 % (0.0-7.3) 10/17/16 03:56 Eos % (Auto) 0.0 % (0.0-4.3) 10/17/16 03:56 Baso % (Auto) 0.7 % (0.0-1.8) 09/20/16 10:35 Lymph # Cake Winder 10/11/16 12:54 [place] # 0.3 K/mm3 (0.0-0.8) 10/17/16 03:56 Eos # 0.0 K/mm3 (0.0-0.4) 10/17/16 03:56 Baso # 0.0 K/mm3 (0.0-0.1) 10/17/16 03:56 Add Manual Diff Complete 10/18/16 05:11 Total Counted 100 10/18/16 05:11 Seg Neutrophils % Cake [place]inder 10/18/16 05:11 Seg Neuts % (Manual) 94.0 % (40.0-70.0) H 10/18/16 05:11 Band Neutrophils % 0 % 10/18/16 05:11 Lymphocytes % (Manual) 5.0 % (13.4-35.0) L 10/18/16 05:11 Reactive Lymphs % (Man) 0 % 10/18/16 05:11 Monocytes % (Manual) 1.0 % (0.0-7.3) 10/18/16 05:11 Eosinophils % (Manual) 0 % (0.0-4.3) 10/18/16 05:11 Basophils % (Manual) 0 % (0.0-1.8) 10/18/16 05:11 Metamyelocytes % 0 % 10/18/16 05:11 Myelocytes % 0 % 10/18/16 05:11 Promyelocytes % 0 % 10/18/16 05:11 Blast Cells % 0 % 10/18/16 05:11 Nucleated RBC % 2.0 % (0.0-0.9) H 10/18/16 05:11 Seg Neutrophils # 20.2 K/mm3 (1.8-7.7) H 10/17/16 03:56 Seg Neutrophils # Man 22.6 K/mm3 (1.8-7.7) H 10/18/16 05:11 Band Neutrophils # 0.0 K/mm3 10/18/16 05:11 Abs Lymphs (Manual) 3936 cells/uL (850-3900) H 10/10/16 13:03 Lymphocytes # (Manual) 1.2 K/mm3 (1.2-5.4) 10/18/16 05:11 Abs React Lymphs (Man) 0.0 K/mm3 10/18/16 05:11 Monocytes # (Manual) 0.2 K/mm3 (0.0-0.8) 10/18/16 05:11 Eosinophils # (Manual) 0.0 K/mm3 (0.0-0.4) 10/18/16 05:11 Basophils # (Manual) 0.0 K/mm3 (0.0-0.1) 10/18/16 05:11 Metamyelocytes # 0.0 K/mm3 10/18/16 05:11 Myelocytes # 0.0 K/mm3 10/18/16 05:11 Promyelocytes # 0.0 K/mm3 10/18/16 05:11 Blast Cells # 0.0 K/mm3 10/18/16 05:11 Pathologist Review 10/10/16 06:00 WBC Morphology Not Reportable 10/18/16 05:11 Hypersegmented Neuts Not Reportable 10/18/16 05:11 Hyposegmented Neuts Not Reportable 10/18/16 05:11 Hypogranular Neuts Not Reportable 10/18/16 05:11 Smudge Cells Not Reportable 10/18/16 05:11 Toxic Granulation Not Reportable 10/18/16 05:11 Toxic Vacuolation Not Reportable 10/18/16 05:11 Dohle Bodies Not Reportable 10/18/16 05:11 Pelger-Huet Anomaly Not Reportable 10/18/16 05:11 Jaspreet Rods Not Reportable 10/18/16 05:11 Platelet Estimate Consistent w auto 10/18/16 05:11 Clumped Platelets Not Reportable 10/18/16 05:11 Plt Clumps, EDTA Not Reportable 10/18/16 05:11 Large Platelets Not Reportable 10/18/16 05:11 Giant Platelets Not Reportable 10/18/16 05:11 Platelet Satelliting Not Reportable 10/18/16 05:11 Plt Morphology Comment Not Reportable 10/18/16 05:11 RBC Morphology Not Reportable 10/18/16 05:11 Dimorphic RBCs Not Reportable 10/18/16 05:11 Polychromasia 1+ 10/18/16 05:11 Hypochromasia 1+ 10/18/16 05:11 Poikilocytosis Not Reportable 10/18/16 05:11 Basophilic Stippling 1+ 10/17/16 03:56 Anisocytosis Not Reportable 10/18/16 05:11 Microcytosis Not Reportable 10/18/16 05:11 Macrocytosis Not Reportable 10/18/16 05:11 Spherocytes Not Reportable 10/18/16 05:11 Pappenheimer Bodies Not Reportable 10/18/16 05:11 Sickle Cells Not Reportable 10/18/16 05:11 Target Cells Few 10/18/16 05:11 Tear Drop Cells Not Reportable 10/18/16 05:11 Ovalocytes Not Reportable 10/18/16 05:11 Stomatocytes Few 10/18/16 05:11 Helmet Cells Not Reportable 10/18/16 05:11 [place] Bodies Not Reportable 10/18/16 05:11 [place] Rings Not Reportable 10/18/16 05:11 Mike Cells Not Reportable 10/18/16 05:11 Bite Cells Not Reportable 10/18/16 05:11 Crenated Cell Not Reportable 10/18/16 05:11 Elliptocytes Not Reportable 10/18/16 05:11 Acanthocytes (Spur) Not Reportable 10/18/16 05:11 Rouleaux Not Reportable 10/18/16 05:11 Hemoglobin C Crystals Not Reportable 10/18/16 05:11 Schistocytes Not Reportable 10/18/16 05:11 Malaria parasites Not Reportable 10/18/16 05:11 Percent Retic 8.11 % (0.78-2.58) H 09/27/16 22:47 [place] Bodies Not Reportable 10/18/16 05:11 Hem Pathologist Commnt No 10/18/16 05:11 PT 17.6 Sec. (12.2-14.9) H 10/10/16 13:03 INR 1.45 (0.87-1.13) H 10/10/16 13:03 APTT 31.1 Sec. (24.2-36.6) 09/20/16 10:35 D-Dimer 4758.12 ng/mlDDU (0-234) H 09/27/16 22:47 POC ABG pH 7.385 (7.35-7.45) 10/19/16 04:32 POC ABG pCO2 66.7 (35-45) H 10/19/16 04:32 POC ABG pO2 55 (80-105) L 10/19/16 04:32 POC ABG HCO3 39.9 10/19/16 04:32 POC ABG Total CO2 42 10/19/16 04:32 POC ABG O2 Sat 86 10/19/16 04:32 POC ABG Base Excess 15 10/19/16 04:32 FiO2 40 % 10/19/16 04:32 Sodium 145 mmol/L (137-145) 10/18/16 05:11 Potassium 4.9 mmol/L (3.6-5.0) 10/18/16 05:11 Chloride 101.5 mmol/L (98-107) 10/18/16 05:11 Carbon Dioxide 35 mmol/L (22-30) H 10/18/16 05:11 Anion Gap 13 mmol/L 10/18/16 05:11 BUN 53 mg/dL (7-17) H 10/18/16 05:11 Creatinine 0.7 mg/dL (0.7-1.2) 10/18/16 05:11 Estimated GFR > 60 ml/min 10/18/16 05:11 BUN/Creatinine Ratio 75.71 % 10/18/16 05:11 Glucose 236 mg/dL (65-100) H 10/18/16 05:11 POC Glucose 273 (70-105) H 10/19/16 05:46 Osmolality 311 Mosm/kg 10/04/16 04:03 Lactic Acid 1.00 mmol/L (0.7-2.0) 10/14/16 00:30 Calcium 8.7 mg/dL (8.4-10.2) 10/18/16 05:11 Phosphorus 3.20 mg/dL (2.5-4.5) 10/17/16 05:00 Magnesium 2.90 mg/dL (1.7-2.3) H 10/15/16 05:10 Ferritin 782.0 ng/mL (13.0-400.0) H 10/10/16 06:00 Total Bilirubin 1.20 mg/dL (0.1-1.2) 10/04/16 04:03 AST 31 units/L (5-40) 10/04/16 04:03 ALT 33 units/L (7-56) 10/04/16 04:03 Alkaline Phosphatase 100 units/L (35-129) 10/04/16 04:03 Lactate Dehydrogenase 829 units/L (91-180) H 09/27/16 22:47 Total Creatine Kinase 3575 units/L (30-135) H 09/27/16 14:40 CK-MB (CK-2) 11.0 ng/mL (0.0-4.0) H 09/27/16 14:40 CK-MB (CK-2) Rel Index 0.3 (0-4) 09/27/16 14:40 Troponin T < 0.010 ng/mL (0.00-0.029) 09/27/16 14:40 C-Reactive Protein 1.00 mg/dL (0.00-1.30) 10/14/16 00:30 NT-Pro-B Natriuret Pep 2018 pg/mL (0-450) H 09/30/16 14:05 Total Protein 5.6 g/dL (6.3-8.2) L 10/04/16 04:03 Albumin 2.1 g/dL (3.9-5) L 10/04/16 04:03 Albumin/Globulin Ratio 0.6 % 10/04/16 04:03 Triglycerides 287 mg/dL (2-149) H 10/19/16 03:45 Urine Color Yellow (Yellow) 10/03/16 15:54 Urine Turbidity Cloudy (Clear) 10/03/16 15:54 Urine pH 5.0 (5.0-7.0) 10/03/16 15:54 Ur Specific [place] 1.013 (1.003-1.030) 10/03/16 15:54 Urine Protein 30 mg/dl mg/dL (Negative) 10/03/16 15:54 Urine Glucose (UA) Neg mg/dL (Negative) 10/03/16 15:54 Urine Ketones Neg mg/dL (Negative) 10/03/16 15:54 Urine Blood Lg (Negative) 10/03/16 15:54 Urine Nitrite Neg (Negative) 10/03/16 15:54 Urine Bilirubin Neg (Negative) 10/03/16 15:54 Urine Urobilinogen < 2.0 mg/dL (<2.0) 10/03/16 15:54 Ur Leukocyte Esterase Tr (Negative) 10/03/16 15:54 Urine WBC (Auto) 21.0 /HPF (0.0-6.0) H 10/03/16 15:54 Urine RBC (Auto) 65.0 /HPF (0.0-6.0) 10/03/16 15:54 U Epithel Cells (Auto) 2.0 /HPF (0-13.0) 10/03/16 15:54 Urine Bacteria (Auto) 3+ /HPF (Negative) 10/03/16 15:54 Amorphous Crystals 1+ 10/03/16 15:54 Urine Mucus Few /HPF 10/03/16 15:54 Urine Creatinine 63.2 mg/dL (0.1-20.0) H 10/03/16 15:54 Urine Sodium 20 mEq/L 10/03/16 15:54 Urine Total Protein 67 mg/dL (5-11.8) H 10/03/16 15:54 Vancomycin Trough 45.5 ug/mL (5.0-20.0) H 10/04/16 12:39 Random Vancomycin 14.9 ug/mL (0-40.0) 10/07/16 05:25 Lymph Enumerat CD4/CD8 2.87 (0.86-5.00) 10/10/16 13:03 % CD3 Cells 73 % (57-85) 10/10/16 13:03 Absolute CD3 Count 2879 cells/uL (840-3060) 10/10/16 13:03 % CD4 Cells 55 % (30-61) 10/10/16 13:03 Absolute CD4 Count 2178 cells/uL (490-1740) H 10/10/16 13:03 % CD8 Cells 19 % (12-42) 10/10/16 13:03 Absolute CD8 Count 759 cells/uL (180-1170) 10/10/16 13:03 % CD19 Cells 21 % (6-29) 10/10/16 13:03 Absolute CD19 Count 824 cells/uL (110-660) H 10/10/16 13:03 Flow Intrp 16+ Markers Scanned into [facility] rec 10/08/16 04:00 Flow Cytometry Interp Scanned into [facility] rec 10/08/16 04:00 Blood Type O POSITIVE 10/09/16 10:00 Antibody Screen TNR 10/01/16 00:55 DEACON Antibody Screen Negative 10/09/16 10:00 Crossmatch See Detail 10/09/16 10:00
[2016-10-19] MEDS: DIPRIVAN 10 MG/ML 1,000 MG/100 ML BOTTLE IV SCH (08:51)
[2016-10-19] MEDS: BROVANA NEBU IH SCH ×2 (09:21→19:34)
[2016-10-19] MEDS: PULMICORT IH SCH ×2 (09:21→19:34)
[2016-10-19] MEDS: ASPIRIN PO SCH (09:22)
[2016-10-19] MEDS: PEPCID PO SCH ×2 (09:23→21:03)
[2016-10-19] MEDS: SENOKOT PO SCH (09:23)
[2016-10-19] MEDS: ZYVOX PO SCH ×2 (09:23→21:03)
[2016-10-19] MEDS: THERAGRAN Tab PO SCH (09:24)
[2016-10-19] MEDS: VALTREX PO SCH (09:24)
[2016-10-19] MEDS: FOLVITE PO SCH (09:24)
[2016-10-19] MEDS: LEVEMIR SUB-Q SCH (09:24)
[2016-10-19] MEDS: LOVENOX SUB-Q SCH (09:26)
--- NOTE | 2016-10-19 09:34 | XRay Report ---
AP CHEST :10/19/16 CLINICAL: Intubated.Follow up respiratory failure. COMPARISON:10/18/16 FINDINGS: The endotracheal tube is in satisfactory position. The feeding tube is satisfactory. Right Ewciup-y-Hioc tip is in the distal SVC. The left PICC line tip is in the right atrium at the cavoatrial junction. Continued diffuse bilateral multilobar airspace disease without significant change. No pneumothorax. IMPRESSION: No change.
--- NOTE | 2016-10-19 09:34 | Progress Note ---
Assessment and Plan - Patient Problems (1) Acute respiratory failure with hypoxia Current Visit: Yes Status: Acute (2) ARDS (adult respiratory distress syndrome) Current Visit: Yes Status: Acute (3) Obesity Current Visit: Yes Status: Acute Qualifiers: Obesity type: O Obesity severity: O (4) Sepsis syndrome Current Visit: Yes Status: Acute (5) Anemia Current Visit: Yes Status: Acute Qualifiers: Anemia type: A Iron deficiency anemia type: I Vitamin B12 deficiency anemia type: V Folate deficiency anemia type: F Bone marrow failure anemia type: B Hemolytic anemia type: H Other causes of anemia: O (6) CARLYN (acute kidney injury) Current Visit: Yes Status: Acute (7) Discharge planning issues Current Visit: Yes Status: Acute Subjective Date of service: 10/19/16 Principal diagnosis: Acute Hypoxemic Respiratory Failure; ARDS Interval history: Seen and examined at bedside; 24 hour events reviewed; nursing and respiratory care staff consulted; no adverse overnight events reported to me; Objective Vital Signs - 12hr 10/18/16 10/18/16 10/18/16 21:45 22:00 22:15 Temperature Pulse Rate 109 H 111 H 109 H Pulse Rate [ Anterior Bilateral Throughout] Pulse Rate [ Left Radial] Respiratory 14 14 14 Rate Respiratory Rate [Anterior Bilateral Throughout] Blood Pressure 129/64 128/63 124/61 O2 Sat by Pulse 87 85 86 Oximetry 10/18/16 10/18/16 10/18/16 22:30 22:45 23:00 Temperature Pulse Rate 112 H 112 H 113 H Pulse Rate [ Anterior Bilateral Throughout] Pulse Rate [ Left Radial] Respiratory 14 16 13 Rate Respiratory Rate [Anterior Bilateral Throughout] Blood Pressure 132/61 122/67 124/64 O2 Sat by Pulse 84 85 Oximetry 10/18/16 10/18/16 10/18/16 23:04 23:15 23:17 Temperature Pulse Rate 112 H 112 H 112 H Pulse Rate [ Anterior Bilateral Throughout] Pulse Rate [ Left Radial] Respiratory 22 12 26 H Rate Respiratory Rate [Anterior Bilateral Throughout] Blood Pressure 124/64 99/48 99/48 O2 Sat by Pulse 90 89 91 Oximetry 10/18/16 10/18/16 10/18/16 23:30 23:31 23:45 Temperature Pulse Rate 107 H 108 H 112 H Pulse Rate [ Anterior Bilateral Throughout] Pulse Rate [ Left Radial] Respiratory 14 27 H 16 Rate Respiratory Rate [Anterior Bilateral Throughout] Blood Pressure 96/43 96/43 136/68 O2 Sat by Pulse 90 93 86 Oximetry 10/19/16 10/19/16 10/19/16 00:00 00:08 00:15 Temperature 99.2 F Pulse Rate 116 H 124 H 117 H Pulse Rate [ Anterior Bilateral Throughout] Pulse Rate [ 89 Left Radial] Respiratory 28 H 26 H Rate Respiratory Rate [Anterior Bilateral Throughout] Blood Pressure 129/69 129/69 132/78 O2 Sat by Pulse 86 98 97 Oximetry 10/19/16 10/19/16 10/19/16 00:30 00:45 01:00 Temperature Pulse Rate 115 H 114 H 114 H Pulse Rate [ Anterior Bilateral Throughout] Pulse Rate [ Left Radial] Respiratory 18 22 22 Rate Respiratory Rate [Anterior Bilateral Throughout] Blood Pressure 118/71 121/72 126/74 O2 Sat by Pulse 83 L 84 79 L Oximetry 10/19/16 10/19/16 10/19/16 01:15 01:30 01:45 Temperature Pulse Rate 112 H 113 H 114 H Pulse Rate [ Anterior Bilateral Throughout] Pulse Rate [ Left Radial] Respiratory 19 15 26 H Rate Respiratory Rate [Anterior Bilateral Throughout] Blood Pressure 129/76 115/67 126/68 O2 Sat by Pulse 83 L 98 Oximetry 10/19/16 10/19/16 10/19/16 01:46 02:00 02:05 Temperature Pulse Rate 113 H Pulse Rate [ 118 H 116 H Anterior Bilateral Throughout] Pulse Rate [ Left Radial] Respiratory 20 Rate Respiratory 30 H 30 H Rate [Anterior Bilateral Throughout] Blood Pressure 120/71 O2 Sat by Pulse 99 Oximetry 10/19/16 10/19/16 10/19/16 02:15 02:30 02:45 Temperature Pulse Rate 111 H 115 H 117 H Pulse Rate [ Anterior Bilateral Throughout] Pulse Rate [ Left Radial] Respiratory 15 30 H 26 H Rate Respiratory Rate [Anterior Bilateral Throughout] Blood Pressure 123/75 121/70 136/69 O2 Sat by Pulse 85 86 83 L Oximetry 10/19/16 10/19/16 10/19/16 03:00 03:15 03:30 Temperature Pulse Rate 119 H 116 H 118 H Pulse Rate [ Anterior Bilateral Throughout] Pulse Rate [ Left Radial] Respiratory 22 24 19 Rate Respiratory Rate [Anterior Bilateral Throughout] Blood Pressure 129/70 127/76 126/76 O2 Sat by Pulse 83 L 83 L 81 L Oximetry 10/19/16 10/19/16 10/19/16 03:45 04:00 04:15 Temperature 99.2 F Pulse Rate 116 H 113 H 111 H Pulse Rate [ Anterior Bilateral Throughout] Pulse Rate [ 89 Left Radial] Respiratory 18 21 30 H Rate Respiratory Rate [Anterior Bilateral Throughout] Blood Pressure 123/70 122/70 105/53 O2 Sat by Pulse 82 L 90 Oximetry 10/19/16 10/19/16 10/19/16 04:28 04:30 04:45 Temperature Pulse Rate 113 H 112 H 110 H Pulse Rate [ Anterior Bilateral Throughout] Pulse Rate [ Left Radial] Respiratory 26 H 22 Rate Respiratory Rate [Anterior Bilateral Throughout] Blood Pressure 105/53 122/76 99/48 O2 Sat by Pulse 91 92 94 Oximetry 10/19/16 10/19/16 10/19/16 05:00 05:15 05:30 Temperature Pulse Rate 108 H 102 H 110 H Pulse Rate [ Anterior Bilateral Throughout] Pulse Rate [ Left Radial] Respiratory 13 14 15 Rate Respiratory Rate [Anterior Bilateral Throughout] Blood Pressure 91/45 125/71 142/71 O2 Sat by Pulse 92 89 Oximetry 10/19/16 10/19/16 10/19/16 05:45 05:55 06:00 Temperature Pulse Rate 110 H 110 H 112 H Pulse Rate [ Anterior Bilateral Throughout] Pulse Rate [ Left Radial] Respiratory 14 16 Rate Respiratory Rate [Anterior Bilateral Throughout] Blood Pressure 139/74 130/71 O2 Sat by Pulse 90 88 Oximetry 10/19/16 10/19/16 10/19/16 06:15 06:30 06:45 Temperature Pulse Rate 112 H 109 H 113 H Pulse Rate [ Anterior Bilateral Throughout] Pulse Rate [ Left Radial] Respiratory 15 15 19 Rate Respiratory Rate [Anterior Bilateral Throughout] Blood Pressure 132/70 142/74 134/70 O2 Sat by Pulse 88 90 87 Oximetry 10/19/16 10/19/16 10/19/16 07:00 07:15 07:30 Temperature Pulse Rate 111 H 110 H 115 H Pulse Rate [ Anterior Bilateral Throughout] Pulse Rate [ Left Radial] Respiratory 16 14 14 Rate Respiratory Rate [Anterior Bilateral Throughout] Blood Pressure 133/73 131/71 126/75 O2 Sat by Pulse 88 88 Oximetry 10/19/16 10/19/16 10/19/16 07:45 08:00 08:15 Temperature 98.9 F Pulse Rate 111 H 112 H 109 H Pulse Rate [ Anterior Bilateral Throughout] Pulse Rate [ Left Radial] Respiratory 15 14 16 Rate Respiratory Rate [Anterior Bilateral Throughout] Blood Pressure 128/68 130/69 126/68 O2 Sat by Pulse 90 90 91 Oximetry 10/19/16 10/19/16 10/19/16 09:17 09:22 09:31 Temperature Pulse Rate 111 H Pulse Rate [ 107 H 111 H Anterior Bilateral Throughout] Pulse Rate [ Left Radial] Respiratory Rate Respiratory 31 H 27 H Rate [Anterior Bilateral Throughout] Blood Pressure 126/78 O2 Sat by Pulse 99 Oximetry Constitutional: no acute distress, other (sedated) Eyes: non-icteric ENT: oropharynx moist Neck: supple, no lymphadenopathy Effort: mildly labored Ascultation: Bilateral: diminished breath sounds, rales, rhonchi Cardiovascular: regular rate and rhythm Gastrointestinal: normoactive bowel sounds, soft, non-tender, non-distended Integumentary: normal Extremities: no cyanosis, no edema, pulses normal, no ischemia or petechiae Neurologic: normal mental status, non-focal exam, pupils equal and round, other (follows commands during sedation holidays) Psychiatric: other (sedated now) CBC and BMP: 10/18/16 05:11 10/18/16 05:11 ABG, PT/INR, D-dimer: ABG POC ABG pH 7.385 (7.35-7.45) 10/19/16 04:32 POC ABG pCO2 66.7 (35-45) H 10/19/16 04:32 POC ABG pO2 55 (80-105) L 10/19/16 04:32 POC ABG HCO3 39.9 10/19/16 04:32 POC ABG Total CO2 42 10/19/16 04:32 POC ABG O2 Sat 86 10/19/16 04:32 PT/INR, D-dimer PT 17.6 Sec. (12.2-14.9) H 10/10/16 13:03 INR 1.45 (0.87-1.13) H 10/10/16 13:03 D-Dimer 4758.12 ng/mlDDU (0-234) H 09/27/16 22:47 Abnormal lab findings: Abnormal Labs 09/20/16 09/20/16 09/20/16 10:35 10:35 10:35 WBC 11.7 H RBC Hgb Hct MCV 75 L MCH 24 L RDW 16.6 H Plt Count [place] # Baso # Seg Neutrophils % Seg Neuts % (Manual) Lymphocytes % (Manual) Monocytes % (Manual) Eosinophils % (Manual) Nucleated RBC % Seg Neutrophils # Seg Neutrophils # Man Abs Lymphs (Manual) Lymphocytes # (Manual) Monocytes # (Manual) Eosinophils # (Manual) Percent Retic PT INR 1.14 H D-Dimer POC ABG pH POC ABG pCO2 POC ABG pO2 Sodium Potassium Chloride Carbon Dioxide BUN Creatinine 0.5 L Glucose 115 H POC Glucose Lactic Acid Calcium Phosphorus Magnesium Ferritin Total Bilirubin 2.0 H Lactate Dehydrogenase Total Creatine Kinase CK-MB (CK-2) C-Reactive Protein NT-Pro-B Natriuret Pep Total Protein Albumin Triglycerides Urine WBC (Auto) Urine Creatinine Urine Total Protein Vancomycin Trough Random Vancomycin Absolute CD4 Count Absolute CD19 Count Crossmatch 09/26/16 09/26/16 09/27/16 04:26 04:26 10:26 WBC RBC Hgb 8.9 L Hct 28.0 L MCV MCH RDW Plt Count [place] # Baso # Seg Neutrophils % Seg Neuts % (Manual) Lymphocytes % (Manual) Monocytes % (Manual) Eosinophils % (Manual) Nucleated RBC % Seg Neutrophils # Seg Neutrophils # Man Abs Lymphs (Manual) Lymphocytes # (Manual) Monocytes # (Manual) Eosinophils # (Manual) Percent Retic PT INR D-Dimer POC ABG pH 7.283 L POC ABG pCO2 45.3 H POC ABG pO2 79 L Sodium Potassium Chloride Carbon Dioxide 20 L BUN Creatinine Glucose 129 H POC Glucose Lactic Acid Calcium 7.6 L Phosphorus Magnesium Ferritin Total Bilirubin Lactate Dehydrogenase Total Creatine Kinase CK-MB (CK-2) C-Reactive Protein NT-Pro-B Natriuret Pep Total Protein Albumin Triglycerides Urine WBC (Auto) Urine Creatinine Urine Total Protein Vancomycin Trough Random Vancomycin Absolute CD4 Count Absolute CD19 Count Crossmatch 09/27/16 09/27/16 09/27/16 14:40 14:40 15:14 WBC 39.3 H RBC Hgb 9.3 L Hct 28.9 L MCV 75 L MCH 24 L RDW 18.7 H Plt Count [place] # Baso # Seg Neutrophils % Seg Neuts % (Manual) 93.5 H Lymphocytes % (Manual) 5.0 L Monocytes % (Manual) Eosinophils % (Manual) Nucleated RBC % Seg Neutrophils # Seg Neutrophils # Man 36.7 H Abs Lymphs (Manual) Lymphocytes # (Manual) Monocytes # (Manual) Eosinophils # (Manual) Percent Retic PT INR D-Dimer POC ABG pH POC ABG pCO2 POC ABG pO2 Sodium Potassium Chloride Carbon Dioxide BUN Creatinine Glucose POC Glucose Lactic Acid 2.9 H* Calcium Phosphorus Magnesium Ferritin Total Bilirubin Lactate Dehydrogenase Total Creatine Kinase 3575 H CK-MB (CK-2) 11.0 H C-Reactive Protein 16.10 H NT-Pro-B Natriuret Pep Total Protein Albumin Triglycerides Urine WBC (Auto) Urine Creatinine Urine Total Protein Vancomycin Trough Random Vancomycin Absolute CD4 Count Absolute CD19 Count Crossmatch 09/27/16 09/27/16 09/27/16 18:05 22:47 22:47 WBC RBC Hgb Hct MCV MCH RDW Plt Count [place] # Baso # Seg Neutrophils % Seg Neuts % (Manual) Lymphocytes % (Manual) Monocytes % (Manual) Eosinophils % (Manual) Nucleated RBC % Seg Neutrophils # Seg Neutrophils # Man Abs Lymphs (Manual) Lymphocytes # (Manual) Monocytes # (Manual) Eosinophils # (Manual) Percent Retic PT INR D-Dimer 4758.12 H POC ABG pH POC ABG pCO2 POC ABG pO2 70 L Sodium Potassium Chloride Carbon Dioxide BUN Creatinine Glucose POC Glucose Lactic Acid Calcium Phosphorus Magnesium Ferritin Total Bilirubin Lactate Dehydrogenase 829 H Total Creatine Kinase CK-MB (CK-2) C-Reactive Protein NT-Pro-B Natriuret Pep Total Protein Albumin Triglycerides Urine WBC (Auto) Urine Creatinine Urine Total Protein Vancomycin Trough Random Vancomycin Absolute CD4 Count Absolute CD19 Count Crossmatch 09/27/16 09/28/16 09/28/16 22:47 09:20 10:47 WBC RBC Hgb Hct MCV MCH RDW Plt Count [place] # [place] # Seg Neutrophils % Seg Neuts % (Manual) Lymphocytes % (Manual) Monocytes % (Manual) Eosinophils % (Manual) Nucleated RBC % Seg Neutrophils # Seg Neutrophils # Man Abs Lymphs (Manual) Lymphocytes # (Manual) Monocytes # (Manual) Eosinophils # (Manual) Percent Retic 8.11 H PT INR D-Dimer POC ABG pH POC ABG pCO2 47.2 H POC ABG pO2 70 L Sodium Potassium Chloride Carbon Dioxide BUN Creatinine 0.6 L Glucose 137 H POC Glucose Lactic Acid Calcium Phosphorus Magnesium Ferritin Total Bilirubin Lactate Dehydrogenase Total Creatine Kinase CK-MB (CK-2) C-Reactive Protein NT-Pro-B Natriuret Pep Total Protein Albumin Triglycerides Urine WBC (Auto) Urine Creatinine Urine Total Protein Vancomycin Trough Random Vancomycin Absolute CD4 Count Absolute CD19 Count Crossmatch 09/28/16 09/30/16 09/30/16 10:47 11:01 14:05 WBC 30.3 H RBC 3.27 L Hgb 8.1 L Hct 24.4 L MCV 75 L MCH 25 L RDW 18.9 H Plt Count [place] # Baso # Seg Neutrophils % Seg Neuts % (Manual) Lymphocytes % (Manual) 12.0 L Monocytes % (Manual) Eosinophils % (Manual) Nucleated RBC % 5.0 H Seg Neutrophils # Seg Neutrophils # Man 21.2 H Abs Lymphs (Manual) Lymphocytes # (Manual) Monocytes # (Manual) 1.8 H Eosinophils # (Manual) Percent Retic PT INR D-Dimer POC ABG pH POC ABG pCO2 48.8 H POC ABG pO2 52 L Sodium Potassium Chloride Carbon Dioxide BUN Creatinine Glucose POC Glucose Lactic Acid Calcium Phosphorus Magnesium Ferritin Total Bilirubin Lactate Dehydrogenase Total Creatine Kinase CK-MB (CK-2) C-Reactive Protein NT-Pro-B Natriuret Pep 2018 H Total Protein Albumin Triglycerides Urine WBC (Auto) Urine Creatinine Urine Total Protein Vancomycin Trough Random Vancomycin Absolute CD4 Count Absolute CD19 Count Crossmatch 09/30/16 09/30/16 09/30/16 14:05 14:05 14:05 WBC 22.1 H RBC 2.76 L Hgb 6.9 L Hct 20.6 L MCV 75 L MCH 25 L RDW 18.7 H Plt Count [place] # Baso # Seg Neutrophils % Seg Neuts % (Manual) 74.0 H Lymphocytes % (Manual) 7.0 L Monocytes % (Manual) Eosinophils % (Manual) Nucleated RBC % 52.0 H Seg Neutrophils # Seg Neutrophils # Man 16.4 H Abs Lymphs (Manual) Lymphocytes # (Manual) Monocytes # (Manual) Eosinophils # (Manual) Percent Retic PT INR D-Dimer POC ABG pH POC ABG pCO2 POC ABG pO2 Sodium Potassium 3.1 L Chloride Carbon Dioxide BUN Creatinine 0.5 L Glucose 116 H POC Glucose Lactic Acid Calcium 8.2 L Phosphorus Magnesium Ferritin Total Bilirubin Lactate Dehydrogenase Total Creatine Kinase CK-MB (CK-2) C-Reactive Protein 30.80 H NT-Pro-B Natriuret Pep Total Protein Albumin Triglycerides Urine WBC (Auto) Urine Creatinine Urine Total Protein Vancomycin Trough Random Vancomycin Absolute CD4 Count Absolute CD19 Count Crossmatch 09/30/16 10/01/16 10/01/16 14:33 00:55 00:55 WBC 26.1 H RBC 2.80 L Hgb 6.8 L Hct 20.8 L MCV 74 L MCH 24 L RDW 18.6 H Plt Count [place] # Baso # Seg Neutrophils % Seg Neuts % (Manual) 85.0 H Lymphocytes % (Manual) 11.0 L Monocytes % (Manual) Eosinophils % (Manual) Nucleated RBC % 21.0 H Seg Neutrophils # Seg Neutrophils # Man 22.2 H Abs Lymphs (Manual) Lymphocytes # (Manual) Monocytes # (Manual) 1.0 H Eosinophils # (Manual) Percent Retic PT INR D-Dimer POC ABG pH POC ABG pCO2 47.8 H POC ABG pO2 201 H Sodium Potassium Chloride Carbon Dioxide BUN Creatinine Glucose POC Glucose Lactic Acid Calcium Phosphorus Magnesium Ferritin Total Bilirubin Lactate Dehydrogenase Total Creatine Kinase CK-MB (CK-2) C-Reactive Protein NT-Pro-B Natriuret Pep Total Protein Albumin Triglycerides Urine WBC (Auto) Urine Creatinine Urine Total Protein Vancomycin Trough Random Vancomycin Absolute CD4 Count Absolute CD19 Count Crossmatch See Detail 10/01/16 10/01/16 10/01/16 04:57 05:00 13:01 WBC RBC Hgb Hct MCV MCH RDW Plt Count [place] # [place] # Seg Neutrophils % Seg Neuts % (Manual) Lymphocytes % (Manual) Monocytes % (Manual) Eosinophils % (Manual) Nucleated RBC % Seg Neutrophils # Seg Neutrophils # Man Abs Lymphs (Manual) Lymphocytes # (Manual) Monocytes # (Manual) Eosinophils # (Manual) Percent Retic PT INR D-Dimer POC ABG pH POC ABG pCO2 58.5 H POC ABG pO2 149 H Sodium 149 H Potassium 3.0 L Chloride Carbon Dioxide BUN Creatinine Glucose POC Glucose 120 H Lactic Acid Calcium 8.3 L Phosphorus Magnesium Ferritin Total Bilirubin Lactate Dehydrogenase Total Creatine Kinase CK-MB (CK-2) C-Reactive Protein NT-Pro-B Natriuret Pep Total Protein Albumin Triglycerides Urine WBC (Auto) Urine Creatinine Urine Total Protein Vancomycin Trough Random Vancomycin Absolute CD4 Count Absolute CD19 Count Crossmatch 10/01/16 10/01/16 10/01/16 15:43 17:44 23:37 WBC 27.6 H RBC 3.55 L Hgb 8.9 L Hct 27.6 L D MCV 78 L D MCH 25 L RDW 18.1 H Plt Count [place] # Baso # Seg Neutrophils % Seg Neuts % (Manual) 79.5 H Lymphocytes % (Manual) 8.0 L Monocytes % (Manual) Eosinophils % (Manual) Nucleated RBC % 65.0 H Seg Neutrophils # Seg Neutrophils # Man 21.9 H Abs Lymphs (Manual) Lymphocytes # (Manual) Monocytes # (Manual) 1.0 H Eosinophils # (Manual) Percent Retic PT INR D-Dimer POC ABG pH POC ABG pCO2 POC ABG pO2 Sodium Potassium Chloride Carbon Dioxide BUN Creatinine Glucose POC Glucose 121 H 129 H Lactic Acid Calcium Phosphorus Magnesium Ferritin Total Bilirubin Lactate Dehydrogenase Total Creatine Kinase CK-MB (CK-2) C-Reactive Protein NT-Pro-B Natriuret Pep Total Protein Albumin Triglycerides Urine WBC (Auto) Urine Creatinine Urine Total Protein Vancomycin Trough Random Vancomycin Absolute CD4 Count Absolute CD19 Count Crossmatch 10/02/16 10/02/16 10/02/16 05:05 05:40 06:00 WBC 23.0 H RBC 3.30 L Hgb 8.3 L Hct 25.8 L MCV 78 L MCH 25 L RDW 18.2 H Plt Count [place] # Baso # Seg Neutrophils % Seg Neuts % (Manual) 83.5 H Lymphocytes % (Manual) 4.0 L Monocytes % (Manual) Eosinophils % (Manual) Nucleated RBC % 14.5 H Seg Neutrophils # Seg Neutrophils # Man 25.1 H Abs Lymphs (Manual) Lymphocytes # (Manual) Monocytes # (Manual) 1.7 H Eosinophils # (Manual) Percent Retic PT INR D-Dimer POC ABG pH POC ABG pCO2 50.5 H POC ABG pO2 Sodium Potassium Chloride Carbon Dioxide BUN Creatinine Glucose POC Glucose 123 H Lactic Acid Calcium Phosphorus Magnesium Ferritin Total Bilirubin Lactate Dehydrogenase Total Creatine Kinase CK-MB (CK-2) C-Reactive Protein NT-Pro-B Natriuret Pep Total Protein Albumin Triglycerides Urine WBC (Auto) Urine Creatinine Urine Total Protein Vancomycin Trough Random Vancomycin Absolute CD4 Count Absolute CD19 Count Crossmatch 10/02/16 10/02/16 10/02/16 06:00 11:42 21:52 WBC RBC Hgb Hct MCV MCH RDW Plt Count [place] # Baso # Seg Neutrophils % Seg Neuts % (Manual) Lymphocytes % (Manual) Monocytes % (Manual) Eosinophils % (Manual) Nucleated RBC % Seg Neutrophils # Seg Neutrophils # Man Abs Lymphs (Manual) Lymphocytes # (Manual) Monocytes # (Manual) Eosinophils # (Manual) Percent Retic PT INR D-Dimer POC ABG pH 7.324 L POC ABG pCO2 60.5 H POC ABG pO2 74 L Sodium 150 H Potassium Chloride 108.3 H Carbon Dioxide BUN 20 H Creatinine 1.4 H D Glucose 117 H POC Glucose 135 H Lactic Acid Calcium Phosphorus Magnesium Ferritin Total Bilirubin Lactate Dehydrogenase Total Creatine Kinase CK-MB (CK-2) C-Reactive Protein NT-Pro-B Natriuret Pep Total Protein Albumin Triglycerides Urine WBC (Auto) Urine Creatinine Urine Total Protein Vancomycin Trough Random Vancomycin Absolute CD4 Count Absolute CD19 Count Crossmatch 10/02/16 10/03/16 10/03/16 23:26 05:55 08:17 WBC 32.0 H RBC 3.13 L Hgb 7.9 L Hct 24.6 L MCV MCH 25 L RDW 18.9 H Plt Count 132 L [place] # Baso # Seg Neutrophils % Seg Neuts % (Manual) 75.0 H Lymphocytes % (Manual) 5.0 L Monocytes % (Manual) Eosinophils % (Manual) Nucleated RBC % 26.0 H Seg Neutrophils # Seg Neutrophils # Man 24.0 H Abs Lymphs (Manual) Lymphocytes # (Manual) Monocytes # (Manual) 1.0 H Eosinophils # (Manual) 1.0 H Percent Retic PT INR D-Dimer POC ABG pH POC ABG pCO2 POC ABG pO2 Sodium Potassium Chloride Carbon Dioxide BUN Creatinine Glucose POC Glucose 121 H 145 H Lactic Acid Calcium Phosphorus Magnesium Ferritin Total Bilirubin Lactate Dehydrogenase Total Creatine Kinase CK-MB (CK-2) C-Reactive Protein NT-Pro-B Natriuret Pep Total Protein Albumin Triglycerides Urine WBC (Auto) Urine Creatinine Urine Total Protein Vancomycin Trough Random Vancomycin Absolute CD4 Count Absolute CD19 Count Crossmatch 10/03/16 10/03/16 10/03/16 08:17 09:26 11:34 WBC RBC Hgb Hct MCV MCH RDW Plt Count [place] # Baso # Seg Neutrophils % Seg Neuts % (Manual) Lymphocytes % (Manual) Monocytes % (Manual) Eosinophils % (Manual) Nucleated RBC % Seg Neutrophils # Seg Neutrophils # Man Abs Lymphs (Manual) Lymphocytes # (Manual) Monocytes # (Manual) Eosinophils # (Manual) Percent Retic PT INR D-Dimer POC ABG pH 7.274 L POC ABG pCO2 59.7 H POC ABG pO2 58 L Sodium 147 H Potassium Chloride 107.6 H Carbon Dioxide BUN 31 H Creatinine 1.7 H Glucose 118 H POC Glucose 142 H Lactic Acid Calcium Phosphorus Magnesium Ferritin Total Bilirubin Lactate Dehydrogenase Total Creatine Kinase CK-MB (CK-2) C-Reactive Protein NT-Pro-B Natriuret Pep Total Protein Albumin Triglycerides Urine WBC (Auto) Urine Creatinine Urine Total Protein Vancomycin Trough Random Vancomycin Absolute CD4 Count Absolute CD19 Count Crossmatch 10/03/16 10/03/16 10/03/16 15:54 15:54 16:58 WBC RBC Hgb Hct MCV MCH RDW Plt Count [place] # Baso # Seg Neutrophils % Seg Neuts % (Manual) Lymphocytes % (Manual) Monocytes % (Manual) Eosinophils % (Manual) Nucleated RBC % Seg Neutrophils # Seg Neutrophils # Man Abs Lymphs (Manual) Lymphocytes # (Manual) Monocytes # (Manual) Eosinophils # (Manual) Percent Retic PT INR D-Dimer POC ABG pH POC ABG pCO2 POC ABG pO2 Sodium Potassium Chloride Carbon Dioxide BUN Creatinine Glucose POC Glucose 138 H Lactic Acid Calcium Phosphorus Magnesium Ferritin Total Bilirubin Lactate Dehydrogenase Total Creatine Kinase CK-MB (CK-2) C-Reactive Protein NT-Pro-B Natriuret Pep Total Protein Albumin Triglycerides Urine WBC (Auto) 21.0 H Urine Creatinine 63.2 H Urine Total Protein 67 H Vancomycin Trough Random Vancomycin Absolute CD4 Count Absolute CD19 Count Crossmatch 10/03/16 10/03/16 10/04/16 21:37 23:44 04:00 WBC 30.3 H RBC 2.86 L Hgb 7.3 L Hct 22.6 L MCV MCH 25 L RDW 19.6 H Plt Count 125 L [place] # Baso # Seg Neutrophils % Seg Neuts % (Manual) Lymphocytes % (Manual) 12.0 L Monocytes % (Manual) Eosinophils % (Manual) 5.0 H Nucleated RBC % 30.0 H Seg Neutrophils # Seg Neutrophils # Man 12.7 H Abs Lymphs (Manual) Lymphocytes # (Manual) Monocytes # (Manual) 1.2 H Eosinophils # (Manual) 1.5 H Percent Retic PT INR D-Dimer POC ABG pH 7.271 L POC ABG pCO2 61.7 H POC ABG pO2 77 L Sodium Potassium Chloride Carbon Dioxide BUN Creatinine Glucose POC Glucose 130 H Lactic Acid Calcium Phosphorus Magnesium Ferritin Total Bilirubin Lactate Dehydrogenase Total Creatine Kinase CK-MB (CK-2) C-Reactive Protein NT-Pro-B Natriuret Pep Total Protein Albumin Triglycerides Urine WBC (Auto) Urine Creatinine Urine Total Protein Vancomycin Trough Random Vancomycin Absolute CD4 Count Absolute CD19 Count Crossmatch 10/04/16 10/04/16 10/04/16 04:03 06:02 12:29 WBC RBC Hgb Hct MCV MCH RDW Plt Count [place] # Baso # Seg Neutrophils % Seg Neuts % (Manual) Lymphocytes % (Manual) Monocytes % (Manual) Eosinophils % (Manual) Nucleated RBC % Seg Neutrophils # Seg Neutrophils # Man Abs Lymphs (Manual) Lymphocytes # (Manual) Monocytes # (Manual) Eosinophils # (Manual) Percent Retic PT INR D-Dimer POC ABG pH 7.248 L POC ABG pCO2 62.3 H POC ABG pO2 59 L Sodium Potassium Chloride Carbon Dioxide BUN 40 H Creatinine 1.7 H Glucose 110 H POC Glucose 123 H Lactic Acid Calcium Phosphorus Magnesium Ferritin Total Bilirubin Lactate Dehydrogenase Total Creatine Kinase CK-MB (CK-2) C-Reactive Protein NT-Pro-B Natriuret Pep Total Protein 5.6 L Albumin 2.1 L Triglycerides Urine WBC (Auto) Urine Creatinine Urine Total Protein Vancomycin Trough Random Vancomycin Absolute CD4 Count Absolute CD19 Count Crossmatch 10/04/16 10/04/16 10/04/16 12:39 15:14 17:45 WBC RBC Hgb Hct MCV MCH RDW Plt Count [place] # Baso # Seg Neutrophils % Seg Neuts % (Manual) Lymphocytes % (Manual) Monocytes % (Manual) Eosinophils % (Manual) Nucleated RBC % Seg Neutrophils # Seg Neutrophils # Man Abs Lymphs (Manual) Lymphocytes # (Manual) Monocytes # (Manual) Eosinophils # (Manual) Percent Retic PT INR D-Dimer POC ABG pH POC ABG pCO2 POC ABG pO2 109 H Sodium Potassium Chloride Carbon Dioxide BUN Creatinine Glucose POC Glucose 124 H Lactic Acid Calcium Phosphorus Magnesium Ferritin Total Bilirubin Lactate Dehydrogenase Total Creatine Kinase CK-MB (CK-2) C-Reactive Protein NT-Pro-B Natriuret Pep Total Protein Albumin Triglycerides Urine WBC (Auto) Urine Creatinine Urine Total Protein Vancomycin Trough 45.5 H Random Vancomycin Absolute CD4 Count Absolute CD19 Count Crossmatch 10/04/16 10/04/16 10/05/16 20:13 23:05 01:27 WBC 36.1 H RBC 2.99 L Hgb 7.3 L Hct 23.5 L MCV MCH 25 L RDW 19.6 H Plt Count [place] # Baso # Seg Neutrophils % Seg Neuts % (Manual) Lymphocytes % (Manual) Monocytes % (Manual) Eosinophils % (Manual) Nucleated RBC % Seg Neutrophils # Seg Neutrophils # Man Abs Lymphs (Manual) Lymphocytes # (Manual) Monocytes # (Manual) Eosinophils # (Manual) Percent Retic PT INR D-Dimer POC ABG pH 7.341 L POC ABG pCO2 POC ABG pO2 47 L Sodium Potassium Chloride Carbon Dioxide BUN Creatinine Glucose POC Glucose 127 H Lactic Acid Calcium Phosphorus Magnesium Ferritin Total Bilirubin Lactate Dehydrogenase Total Creatine Kinase CK-MB (CK-2) C-Reactive Protein NT-Pro-B Natriuret Pep Total Protein Albumin Triglycerides Urine WBC (Auto) Urine Creatinine Urine Total Protein Vancomycin Trough Random Vancomycin Absolute CD4 Count Absolute CD19 Count Crossmatch 10/05/16 10/05/16 10/05/16 01:27 03:50 05:00 WBC RBC Hgb Hct MCV MCH RDW Plt Count [place] # Baso # Seg Neutrophils % Seg Neuts % (Manual) Lymphocytes % (Manual) Monocytes % (Manual) Eosinophils % (Manual) Nucleated RBC % Seg Neutrophils # Seg Neutrophils # Man Abs Lymphs (Manual) Lymphocytes # (Manual) Monocytes # (Manual) Eosinophils # (Manual) Percent Retic PT INR D-Dimer POC ABG pH 7.330 L POC ABG pCO2 45.3 H POC ABG pO2 53 L Sodium Potassium Chloride Carbon Dioxide BUN 49 H Creatinine 1.6 H Glucose 112 H POC Glucose Lactic Acid Calcium Phosphorus Magnesium Ferritin Total Bilirubin Lactate Dehydrogenase Total Creatine Kinase CK-MB (CK-2) C-Reactive Protein NT-Pro-B Natriuret Pep Total Protein Albumin Triglycerides Urine WBC (Auto) Urine Creatinine Urine Total Protein Vancomycin Trough Random Vancomycin 43.6 H Absolute CD4 Count Absolute CD19 Count Crossmatch 10/05/16 10/05/16 10/05/16 05:30 12:08 14:00 WBC RBC Hgb Hct MCV MCH RDW Plt Count [place] # Baso # Seg Neutrophils % Seg Neuts % (Manual) Lymphocytes % (Manual) Monocytes % (Manual) Eosinophils % (Manual) Nucleated RBC % Seg Neutrophils # Seg Neutrophils # Man Abs Lymphs (Manual) Lymphocytes # (Manual) Monocytes # (Manual) Eosinophils # (Manual) Percent Retic PT INR D-Dimer POC ABG pH POC ABG pCO2 POC ABG pO2 Sodium Potassium Chloride Carbon Dioxide BUN Creatinine Glucose POC Glucose 141 H 149 H Lactic Acid Calcium Phosphorus Magnesium Ferritin Total Bilirubin Lactate Dehydrogenase Total Creatine Kinase CK-MB (CK-2) C-Reactive Protein 28.40 H NT-Pro-B Natriuret Pep Total Protein Albumin Triglycerides Urine WBC (Auto) Urine Creatinine Urine Total Protein Vancomycin Trough Random Vancomycin Absolute CD4 Count Absolute CD19 Count Crossmatch 10/05/16 10/05/16 10/05/16 15:37 16:41 17:15 WBC RBC Hgb Hct MCV MCH RDW Plt Count [place] # Baso # Seg Neutrophils % Seg Neuts % (Manual) Lymphocytes % (Manual) Monocytes % (Manual) Eosinophils % (Manual) Nucleated RBC % Seg Neutrophils # Seg Neutrophils # Man Abs Lymphs (Manual) Lymphocytes # (Manual) Monocytes # (Manual) Eosinophils # (Manual) Percent Retic PT INR D-Dimer POC ABG pH 7.157 L 7.133 L POC ABG pCO2 75.0 H 80.5 H POC ABG pO2 76 L Sodium Potassium Chloride Carbon Dioxide BUN Creatinine Glucose POC Glucose 151 H Lactic Acid Calcium Phosphorus Magnesium Ferritin Total Bilirubin Lactate Dehydrogenase Total Creatine Kinase CK-MB (CK-2) C-Reactive Protein NT-Pro-B Natriuret Pep Total Protein Albumin Triglycerides Urine WBC (Auto) Urine Creatinine Urine Total Protein Vancomycin Trough Random Vancomycin Absolute CD4 Count Absolute CD19 Count Crossmatch 10/05/16 10/05/16 10/06/16 19:58 23:50 03:57 WBC 45.3 H* RBC 3.08 L Hgb 7.5 L Hct 24.5 L MCV MCH 25 L RDW 20.1 H Plt Count [place] # Baso # Seg Neutrophils % Seg Neuts % (Manual) 24.0 L Lymphocytes % (Manual) 10.0 L Monocytes % (Manual) Eosinophils % (Manual) Nucleated RBC % 36.0 H Seg Neutrophils # Seg Neutrophils # Man 10.9 H Abs Lymphs (Manual) Lymphocytes # (Manual) Monocytes # (Manual) 3.2 H Eosinophils # (Manual) 0.5 H Percent Retic PT INR D-Dimer POC ABG pH 7.198 L POC ABG pCO2 69.5 H POC ABG pO2 Sodium Potassium Chloride Carbon Dioxide BUN Creatinine Glucose POC Glucose 160 H Lactic Acid Calcium Phosphorus Magnesium Ferritin Total Bilirubin Lactate Dehydrogenase Total Creatine Kinase CK-MB (CK-2) C-Reactive Protein NT-Pro-B Natriuret Pep Total Protein Albumin Triglycerides Urine WBC (Auto) Urine Creatinine Urine Total Protein Vancomycin Trough Random Vancomycin Absolute CD4 Count Absolute CD19 Count Crossmatch 10/06/16 10/06/16 10/06/16 03:57 05:38 06:08 WBC RBC Hgb Hct MCV MCH RDW Plt Count [place] # Baso # Seg Neutrophils % Seg Neuts % (Manual) Lymphocytes % (Manual) Monocytes % (Manual) Eosinophils % (Manual) Nucleated RBC % Seg Neutrophils # Seg Neutrophils # Man Abs Lymphs (Manual) Lymphocytes # (Manual) Monocytes # (Manual) Eosinophils # (Manual) Percent Retic PT INR D-Dimer POC ABG pH 7.226 L POC ABG pCO2 63.3 H POC ABG pO2 Sodium 152 H D Potassium Chloride 114.1 H Carbon Dioxide BUN 58 H Creatinine 1.6 H Glucose 123 H POC Glucose 129 H Lactic Acid Calcium Phosphorus Magnesium Ferritin Total Bilirubin Lactate Dehydrogenase Total Creatine Kinase CK-MB (CK-2) C-Reactive Protein NT-Pro-B Natriuret Pep Total Protein Albumin Triglycerides Urine WBC (Auto) Urine Creatinine Urine Total Protein Vancomycin Trough Random Vancomycin Absolute CD4 Count Absolute CD19 Count Crossmatch 10/06/16 10/06/16 10/06/16 11:38 14:31 18:10 WBC RBC Hgb Hct MCV MCH RDW Plt Count [place] # Baso # Seg Neutrophils % Seg Neuts % (Manual) Lymphocytes % (Manual) Monocytes % (Manual) Eosinophils % (Manual) Nucleated RBC % Seg Neutrophils # Seg Neutrophils # Man Abs Lymphs (Manual) Lymphocytes # (Manual) Monocytes # (Manual) Eosinophils # (Manual) Percent Retic PT INR D-Dimer POC ABG pH 7.345 L POC ABG pCO2 49.5 H POC ABG pO2 60 L Sodium Potassium Chloride Carbon Dioxide BUN Creatinine Glucose POC Glucose 126 H 196 H Lactic Acid Calcium Phosphorus Magnesium Ferritin Total Bilirubin Lactate Dehydrogenase Total Creatine Kinase CK-MB (CK-2) C-Reactive Protein NT-Pro-B Natriuret Pep Total Protein Albumin Triglycerides Urine WBC (Auto) Urine Creatinine Urine Total Protein Vancomycin Trough Random Vancomycin Absolute CD4 Count Absolute CD19 Count Crossmatch 10/06/16 10/07/16 10/07/16 21:07 00:55 00:55 WBC 55.1 H* RBC 3.06 L Hgb 7.5 L Hct 24.4 L MCV MCH 24 L RDW 20.7 H Plt Count [place] # Baso # Seg Neutrophils % Seg Neuts % (Manual) Lymphocytes % (Manual) 8.0 L Monocytes % (Manual) 9.0 H Eosinophils % (Manual) Nucleated RBC % 30.0 H Seg Neutrophils # Seg Neutrophils # Man 27.0 H Abs Lymphs (Manual) Lymphocytes # (Manual) Monocytes # (Manual) 5.0 H Eosinophils # (Manual) 0.6 H Percent Retic PT INR D-Dimer POC ABG pH 7.317 L POC ABG pCO2 55.2 H POC ABG pO2 59 L Sodium 148 H Potassium Chloride 110.2 H Carbon Dioxide BUN 56 H Creatinine 1.7 H Glucose 211 H POC Glucose Lactic Acid Calcium Phosphorus Magnesium Ferritin Total Bilirubin Lactate Dehydrogenase Total Creatine Kinase CK-MB (CK-2) C-Reactive Protein NT-Pro-B Natriuret Pep Total Protein Albumin Triglycerides Urine WBC (Auto) Urine Creatinine Urine Total Protein Vancomycin Trough Random Vancomycin Absolute CD4 Count Absolute CD19 Count Crossmatch 10/07/16 10/07/16 10/07/16 01:01 05:20 06:31 WBC RBC Hgb Hct MCV MCH RDW Plt Count [place] # Baso # Seg Neutrophils % Seg Neuts % (Manual) Lymphocytes % (Manual) Monocytes % (Manual) Eosinophils % (Manual) Nucleated RBC % Seg Neutrophils # Seg Neutrophils # Man Abs Lymphs (Manual) Lymphocytes # (Manual) Monocytes # (Manual) Eosinophils # (Manual) Percent Retic PT INR D-Dimer POC ABG pH 7.310 L POC ABG pCO2 55.6 H POC ABG pO2 65 L Sodium Potassium Chloride Carbon Dioxide BUN Creatinine Glucose POC Glucose 249 H 235 H Lactic Acid Calcium Phosphorus Magnesium Ferritin Total Bilirubin Lactate Dehydrogenase Total Creatine Kinase CK-MB (CK-2) C-Reactive Protein NT-Pro-B Natriuret Pep Total Protein Albumin Triglycerides Urine WBC (Auto) Urine Creatinine Urine Total Protein Vancomycin Trough Random Vancomycin Absolute CD4 Count Absolute CD19 Count Crossmatch 10/07/16 10/07/16 10/07/16 12:00 18:04 23:48 WBC RBC Hgb Hct MCV MCH RDW Plt Count [place] # Baso # Seg Neutrophils % Seg Neuts % (Manual) Lymphocytes % (Manual) Monocytes % (Manual) Eosinophils % (Manual) Nucleated RBC % Seg Neutrophils # Seg Neutrophils # Man Abs Lymphs (Manual) Lymphocytes # (Manual) Monocytes # (Manual) Eosinophils # (Manual) Percent Retic PT INR D-Dimer POC ABG pH POC ABG pCO2 POC ABG pO2 Sodium Potassium Chloride Carbon Dioxide BUN Creatinine Glucose POC Glucose 210 H 201 H 163 H Lactic Acid Calcium Phosphorus Magnesium Ferritin Total Bilirubin Lactate Dehydrogenase Total Creatine Kinase CK-MB (CK-2) C-Reactive Protein NT-Pro-B Natriuret Pep Total Protein Albumin Triglycerides Urine WBC (Auto) Urine Creatinine Urine Total Protein Vancomycin Trough Random Vancomycin Absolute CD4 Count Absolute CD19 Count Crossmatch 10/08/16 10/08/16 10/08/16 04:00 04:00 04:10 WBC 58.0 H* RBC 2.95 L Hgb 7.3 L Hct 23.4 L MCV MCH 25 L RDW 20.8 H Plt Count [place] # Baso # Seg Neutrophils % Seg Neuts % (Manual) 75.0 H Lymphocytes % (Manual) 11.0 L Monocytes % (Manual) 8.0 H Eosinophils % (Manual) Nucleated RBC % 30.0 H Seg Neutrophils # Seg Neutrophils # Man 43.5 H Abs Lymphs (Manual) Lymphocytes # (Manual) 6.4 H Monocytes # (Manual) 4.6 H Eosinophils # (Manual) 0.6 H Percent Retic PT INR D-Dimer POC ABG pH POC ABG pCO2 POC ABG pO2 Sodium 152 H Potassium Chloride 111.4 H Carbon Dioxide BUN 59 H Creatinine 1.6 H Glucose 190 H POC Glucose 214 H Lactic Acid Calcium Phosphorus Magnesium Ferritin Total Bilirubin Lactate Dehydrogenase Total Creatine Kinase CK-MB (CK-2) C-Reactive Protein NT-Pro-B Natriuret Pep Total Protein Albumin Triglycerides Urine WBC (Auto) Urine Creatinine Urine Total Protein Vancomycin Trough Random Vancomycin Absolute CD4 Count Absolute CD19 Count Crossmatch 10/08/16 10/08/16 10/08/16 04:46 12:11 18:35 WBC RBC Hgb Hct MCV MCH RDW Plt Count [place] # Baso # Seg Neutrophils % Seg Neuts % (Manual) Lymphocytes % (Manual) Monocytes % (Manual) Eosinophils % (Manual) Nucleated RBC % Seg Neutrophils # Seg Neutrophils # Man Abs Lymphs (Manual) Lymphocytes # (Manual) Monocytes # (Manual) Eosinophils # (Manual) Percent Retic PT INR D-Dimer POC ABG pH POC ABG pCO2 POC ABG pO2 65 L Sodium Potassium Chloride Carbon Dioxide BUN Creatinine Glucose POC Glucose 199 H 187 H Lactic Acid Calcium Phosphorus Magnesium Ferritin Total Bilirubin Lactate Dehydrogenase Total Creatine Kinase CK-MB (CK-2) C-Reactive Protein NT-Pro-B Natriuret Pep Total Protein Albumin Triglycerides Urine WBC (Auto) Urine Creatinine Urine Total Protein Vancomycin Trough Random Vancomycin Absolute CD4 Count Absolute CD19 Count Crossmatch 10/08/16 10/09/16 10/09/16 23:38 04:43 05:38 WBC RBC Hgb Hct MCV MCH RDW Plt Count [place] # Baso # Seg Neutrophils % Seg Neuts % (Manual) Lymphocytes % (Manual) Monocytes % (Manual) Eosinophils % (Manual) Nucleated RBC % Seg Neutrophils # Seg Neutrophils # Man Abs Lymphs (Manual) Lymphocytes # (Manual) Monocytes # (Manual) Eosinophils # (Manual) Percent Retic PT INR D-Dimer POC ABG pH POC ABG pCO2 45.4 H POC ABG pO2 52 L Sodium Potassium Chloride Carbon Dioxide BUN Creatinine Glucose POC Glucose 202 H 182 H Lactic Acid Calcium Phosphorus Magnesium Ferritin Total Bilirubin Lactate Dehydrogenase Total Creatine Kinase CK-MB (CK-2) C-Reactive Protein NT-Pro-B Natriuret Pep Total Protein Albumin Triglycerides Urine WBC (Auto) Urine Creatinine Urine Total Protein Vancomycin Trough Random Vancomycin Absolute CD4 Count Absolute CD19 Count Crossmatch 10/09/16 10/09/16 10/09/16 07:40 07:40 10:00 WBC 37.3 H RBC 2.55 L Hgb 6.4 L Hct 20.7 L MCV MCH 25 L RDW 20.6 H Plt Count [place] # Baso # Seg Neutrophils % Seg Neuts % (Manual) Lymphocytes % (Manual) Monocytes % (Manual) Eosinophils % (Manual) Nucleated RBC % Seg Neutrophils # Seg Neutrophils # Man Abs Lymphs (Manual) Lymphocytes # (Manual) Monocytes # (Manual) Eosinophils # (Manual) Percent Retic PT INR D-Dimer POC ABG pH POC ABG pCO2 POC ABG pO2 Sodium 153 H Potassium 3.3 L Chloride 112.7 H Carbon Dioxide BUN 62 H Creatinine 1.7 H Glucose 146 H POC Glucose Lactic Acid Calcium Phosphorus Magnesium Ferritin Total Bilirubin Lactate Dehydrogenase Total Creatine Kinase CK-MB (CK-2) C-Reactive Protein NT-Pro-B Natriuret Pep Total Protein Albumin Triglycerides Urine WBC (Auto) Urine Creatinine Urine Total Protein Vancomycin Trough Random Vancomycin Absolute CD4 Count Absolute CD19 Count Crossmatch See Detail 10/09/16 10/09/16 10/10/16 12:06 17:08 00:01 WBC RBC Hgb Hct MCV MCH RDW Plt Count [place] # Baso # Seg Neutrophils % Seg Neuts % (Manual) Lymphocytes % (Manual) Monocytes % (Manual) Eosinophils % (Manual) Nucleated RBC % Seg Neutrophils # Seg Neutrophils # Man Abs Lymphs (Manual) Lymphocytes # (Manual) Monocytes # (Manual) Eosinophils # (Manual) Percent Retic PT INR D-Dimer POC ABG pH POC ABG pCO2 POC ABG pO2 Sodium Potassium Chloride Carbon Dioxide BUN Creatinine Glucose POC Glucose 214 H 152 H 189 H Lactic Acid Calcium Phosphorus Magnesium Ferritin Total Bilirubin Lactate Dehydrogenase Total Creatine Kinase CK-MB (CK-2) C-Reactive Protein NT-Pro-B Natriuret Pep Total Protein Albumin Triglycerides Urine WBC (Auto) Urine Creatinine Urine Total Protein Vancomycin Trough Random Vancomycin Absolute CD4 Count Absolute CD19 Count Crossmatch 10/10/16 10/10/16 10/10/16 04:25 05:28 06:00 WBC RBC Hgb Hct MCV MCH RDW Plt Count [place] # Baso # Seg Neutrophils % Seg Neuts % (Manual) Lymphocytes % (Manual) Monocytes % (Manual) Eosinophils % (Manual) Nucleated RBC % Seg Neutrophils # Seg Neutrophils # Man Abs Lymphs (Manual) Lymphocytes # (Manual) Monocytes # (Manual) Eosinophils # (Manual) Percent Retic PT INR D-Dimer POC ABG pH POC ABG pCO2 58.3 H POC ABG pO2 68 L Sodium Potassium Chloride Carbon Dioxide BUN Creatinine Glucose POC Glucose 155 H Lactic Acid Calcium Phosphorus Magnesium Ferritin Total Bilirubin Lactate Dehydrogenase Total Creatine Kinase CK-MB (CK-2) C-Reactive Protein NT-Pro-B Natriuret Pep Total Protein Albumin Triglycerides 407 H Urine WBC (Auto) Urine Creatinine Urine Total Protein Vancomycin Trough Random Vancomycin Absolute CD4 Count Absolute CD19 Count Crossmatch 10/10/16 10/10/16 10/10/16 06:00 06:00 06:00 WBC 38.5 H RBC 3.57 L Hgb 9.3 L Hct 30.1 L D MCV MCH 26 L RDW 22.0 H Plt Count 464 H [place] # Baso # Seg Neutrophils % Seg Neuts % (Manual) 81.0 H Lymphocytes % (Manual) 9.0 L Monocytes % (Manual) Eosinophils % (Manual) Nucleated RBC % 84.0 H Seg Neutrophils # Seg Neutrophils # Man 31.2 H Abs Lymphs (Manual) Lymphocytes # (Manual) Monocytes # (Manual) Eosinophils # (Manual) 1.2 H Percent Retic PT INR D-Dimer POC ABG pH POC ABG pCO2 POC ABG pO2 Sodium 153 H Potassium Chloride 108.3 H Carbon Dioxide 31 H BUN 62 H Creatinine 1.5 H Glucose 160 H POC Glucose Lactic Acid Calcium Phosphorus Magnesium Ferritin 782.0 H Total Bilirubin Lactate Dehydrogenase Total Creatine Kinase CK-MB (CK-2) C-Reactive Protein NT-Pro-B Natriuret Pep Total Protein Albumin Triglycerides Urine WBC (Auto) Urine Creatinine Urine Total Protein Vancomycin Trough Random Vancomycin Absolute CD4 Count Absolute CD19 Count Crossmatch 10/10/16 10/10/16 10/10/16 11:29 13:03 13:03 WBC RBC Hgb Hct MCV MCH RDW Plt Count [place] # Baso # Seg Neutrophils % Seg Neuts % (Manual) Lymphocytes % (Manual) Monocytes % (Manual) Eosinophils % (Manual) Nucleated RBC % Seg Neutrophils # Seg Neutrophils # Man Abs Lymphs (Manual) 3936 H Lymphocytes # (Manual) Monocytes # (Manual) Eosinophils # (Manual) Percent Retic PT 17.6 H INR 1.45 H D-Dimer POC ABG pH POC ABG pCO2 POC ABG pO2 Sodium Potassium Chloride Carbon Dioxide BUN Creatinine Glucose POC Glucose 177 H Lactic Acid Calcium Phosphorus Magnesium Ferritin Total Bilirubin Lactate Dehydrogenase Total Creatine Kinase CK-MB (CK-2) C-Reactive Protein NT-Pro-B Natriuret Pep Total Protein Albumin Triglycerides Urine WBC (Auto) Urine Creatinine Urine Total Protein Vancomycin Trough Random Vancomycin Absolute CD4 Count 2178 H Absolute CD19 Count 824 H Crossmatch 10/10/16 10/11/16 10/11/16 17:38 00:04 05:35 WBC RBC Hgb Hct MCV MCH RDW Plt Count [place] # Baso # Seg Neutrophils % Seg Neuts % (Manual) Lymphocytes % (Manual) Monocytes % (Manual) Eosinophils % (Manual) Nucleated RBC % Seg Neutrophils # Seg Neutrophils # Man Abs Lymphs (Manual) Lymphocytes # (Manual) Monocytes # (Manual) Eosinophils # (Manual) Percent Retic PT INR D-Dimer POC ABG pH POC ABG pCO2 56.6 H POC ABG pO2 63 L Sodium Potassium Chloride Carbon Dioxide BUN Creatinine Glucose POC Glucose 173 H 155 H Lactic Acid Calcium Phosphorus Magnesium Ferritin Total Bilirubin Lactate Dehydrogenase Total Creatine Kinase CK-MB (CK-2) C-Reactive Protein NT-Pro-B Natriuret Pep Total Protein Albumin Triglycerides Urine WBC (Auto) Urine Creatinine Urine Total Protein Vancomycin Trough Random Vancomycin Absolute CD4 Count Absolute CD19 Count Crossmatch 10/11/16 10/11/16 10/11/16 06:01 11:43 12:54 WBC 31.8 H RBC Hgb Hct MCV MCH RDW 17.8 H Plt Count [place] # Baso # Seg Neutrophils % Seg Neuts % (Manual) 84.0 H Lymphocytes % (Manual) 9.0 L Monocytes % (Manual) Eosinophils % (Manual) Nucleated RBC % 28.0 H Seg Neutrophils # Seg Neutrophils # Man 27.1 H Abs Lymphs (Manual) Lymphocytes # (Manual) Monocytes # (Manual) 1.6 H Eosinophils # (Manual) Percent Retic PT INR D-Dimer POC ABG pH POC ABG pCO2 POC ABG pO2 Sodium Potassium Chloride Carbon Dioxide BUN Creatinine Glucose POC Glucose 231 H 185 H Lactic Acid Calcium Phosphorus Magnesium Ferritin Total Bilirubin Lactate Dehydrogenase Total Creatine Kinase CK-MB (CK-2) C-Reactive Protein NT-Pro-B Natriuret Pep Total Protein Albumin Triglycerides Urine WBC (Auto) Urine Creatinine Urine Total Protein Vancomycin Trough Random Vancomycin Absolute CD4 Count Absolute CD19 Count Crossmatch 10/11/16 10/11/16 10/11/16 12:54 14:10 18:02 WBC RBC Hgb Hct MCV MCH RDW Plt Count [place] # Baso # Seg Neutrophils % Seg Neuts % (Manual) Lymphocytes % (Manual) Monocytes % (Manual) Eosinophils % (Manual) Nucleated RBC % Seg Neutrophils # Seg Neutrophils # Man Abs Lymphs (Manual) Lymphocytes # (Manual) Monocytes # (Manual) Eosinophils # (Manual) Percent Retic PT INR D-Dimer POC ABG pH 7.311 L POC ABG pCO2 71.4 H POC ABG pO2 59 L Sodium Potassium Chloride 97.1 L Carbon Dioxide BUN 57 H Creatinine 1.6 H Glucose 369 H POC Glucose 206 H Lactic Acid Calcium 8.2 L Phosphorus Magnesium Ferritin Total Bilirubin Lactate Dehydrogenase Total Creatine Kinase CK-MB (CK-2) C-Reactive Protein NT-Pro-B Natriuret Pep Total Protein Albumin Triglycerides Urine WBC (Auto) Urine Creatinine Urine Total Protein Vancomycin Trough Random Vancomycin Absolute CD4 Count Absolute CD19 Count Crossmatch 10/11/16 10/11/16 10/12/16 20:57 21:23 00:43 WBC RBC Hgb Hct MCV MCH RDW Plt Count [place] # Baso # Seg Neutrophils % Seg Neuts % (Manual) Lymphocytes % (Manual) Monocytes % (Manual) Eosinophils % (Manual) Nucleated RBC % Seg Neutrophils # Seg Neutrophils # Man Abs Lymphs (Manual) Lymphocytes # (Manual) Monocytes # (Manual) Eosinophils # (Manual) Percent Retic PT INR D-Dimer POC ABG pH 7.242 L POC ABG pCO2 88.4 H POC ABG pO2 57 L Sodium Potassium Chloride Carbon Dioxide BUN Creatinine Glucose POC Glucose 212 H Lactic Acid Calcium Phosphorus Magnesium Ferritin Total Bilirubin Lactate Dehydrogenase Total Creatine Kinase CK-MB (CK-2) C-Reactive Protein 3.00 H NT-Pro-B Natriuret Pep Total Protein Albumin Triglycerides Urine WBC (Auto) Urine Creatinine Urine Total Protein Vancomycin Trough Random Vancomycin Absolute CD4 Count Absolute CD19 Count Crossmatch 10/12/16 10/12/16 10/12/16 05:49 06:03 06:57 WBC 37.0 H RBC Hgb Hct MCV MCH RDW 18.0 H Plt Count [place] # 2.0 H Baso # 0.2 H Seg Neutrophils % 86.7 H Seg Neuts % (Manual) 91.5 H Lymphocytes % (Manual) 6.0 L Monocytes % (Manual) Eosinophils % (Manual) Nucleated RBC % 15.5 H Seg Neutrophils # 30.6 H Seg Neutrophils # Man 33.9 H Abs Lymphs (Manual) Lymphocytes # (Manual) Monocytes # (Manual) Eosinophils # (Manual) Percent Retic PT INR D-Dimer POC ABG pH 7.289 L POC ABG pCO2 82.4 H POC ABG pO2 65 L Sodium Potassium Chloride Carbon Dioxide BUN Creatinine Glucose POC Glucose 230 H Lactic Acid Calcium Phosphorus Magnesium Ferritin Total Bilirubin Lactate Dehydrogenase Total Creatine Kinase CK-MB (CK-2) C-Reactive Protein NT-Pro-B Natriuret Pep Total Protein Albumin Triglycerides Urine WBC (Auto) Urine Creatinine Urine Total Protein Vancomycin Trough Random Vancomycin Absolute CD4 Count Absolute CD19 Count Crossmatch 10/12/16 10/12/16 10/12/16 06:57 11:59 17:00 WBC RBC Hgb Hct MCV MCH RDW Plt Count [place] # Baso # Seg Neutrophils % Seg Neuts % (Manual) Lymphocytes % (Manual) Monocytes % (Manual) Eosinophils % (Manual) Nucleated RBC % Seg Neutrophils # Seg Neutrophils # Man Abs Lymphs (Manual) Lymphocytes # (Manual) Monocytes # (Manual) Eosinophils # (Manual) Percent Retic PT INR D-Dimer POC ABG pH POC ABG pCO2 POC ABG pO2 Sodium 151 H D 130 L D Potassium Chloride Carbon Dioxide 32 H BUN 62 H Creatinine 1.6 H Glucose 231 H POC Glucose 222 H Lactic Acid Calcium Phosphorus 4.90 H Magnesium Ferritin Total Bilirubin Lactate Dehydrogenase Total Creatine Kinase CK-MB (CK-2) C-Reactive Protein NT-Pro-B Natriuret Pep Total Protein Albumin Triglycerides Urine WBC (Auto) Urine Creatinine Urine Total Protein Vancomycin Trough Random Vancomycin Absolute CD4 Count Absolute CD19 Count Crossmatch 10/12/16 10/12/16 10/12/16 17:41 22:04 23:25 WBC RBC Hgb Hct MCV MCH RDW Plt Count [place] # Baso # Seg Neutrophils % Seg Neuts % (Manual) Lymphocytes % (Manual) Monocytes % (Manual) Eosinophils % (Manual) Nucleated RBC % Seg Neutrophils # Seg Neutrophils # Man Abs Lymphs (Manual) Lymphocytes # (Manual) Monocytes # (Manual) Eosinophils # (Manual) Percent Retic PT INR D-Dimer POC ABG pH 7.264 L POC ABG pCO2 89.1 H POC ABG pO2 62 L Sodium Potassium Chloride Carbon Dioxide BUN Creatinine Glucose POC Glucose 223 H 160 H Lactic Acid Calcium Phosphorus Magnesium Ferritin Total Bilirubin Lactate Dehydrogenase Total Creatine Kinase CK-MB (CK-2) C-Reactive Protein NT-Pro-B Natriuret Pep Total Protein Albumin Triglycerides Urine WBC (Auto) Urine Creatinine Urine Total Protein Vancomycin Trough Random Vancomycin Absolute CD4 Count Absolute CD19 Count Crossmatch 10/13/16 10/13/16 10/13/16 05:30 06:00 06:00 WBC 25.9 H RBC Hgb Hct MCV MCH RDW 18.1 H Plt Count [place] # Baso # Seg Neutrophils % Seg Neuts % (Manual) 85.0 H Lymphocytes % (Manual) 9.0 L Monocytes % (Manual) Eosinophils % (Manual) Nucleated RBC % 6.0 H Seg Neutrophils # Seg Neutrophils # Man 22.0 H Abs Lymphs (Manual) Lymphocytes # (Manual) Monocytes # (Manual) 1.4 H Eosinophils # (Manual) Percent Retic PT INR D-Dimer POC ABG pH 7.281 L POC ABG pCO2 89.6 H POC ABG pO2 63 L Sodium 148 H D Potassium Chloride Carbon Dioxide 36 H BUN 58 H Creatinine 1.3 H Glucose 189 H POC Glucose Lactic Acid Calcium Phosphorus Magnesium Ferritin Total Bilirubin Lactate Dehydrogenase Total Creatine Kinase CK-MB (CK-2) C-Reactive Protein NT-Pro-B Natriuret Pep Total Protein Albumin Triglycerides Urine WBC (Auto) Urine Creatinine Urine Total Protein Vancomycin Trough Random Vancomycin Absolute CD4 Count Absolute CD19 Count Crossmatch 10/13/16 10/13/16 10/13/16 06:20 11:10 17:26 WBC RBC Hgb Hct MCV MCH RDW Plt Count [place] # Baso # Seg Neutrophils % Seg Neuts % (Manual) Lymphocytes % (Manual) Monocytes % (Manual) Eosinophils % (Manual) Nucleated RBC % Seg Neutrophils # Seg Neutrophils # Man Abs Lymphs (Manual) Lymphocytes # (Manual) Monocytes # (Manual) Eosinophils # (Manual) Percent Retic PT INR D-Dimer POC ABG pH POC ABG pCO2 POC ABG pO2 Sodium Potassium Chloride Carbon Dioxide BUN Creatinine Glucose POC Glucose 192 H 198 H 162 H Lactic Acid Calcium Phosphorus Magnesium Ferritin Total Bilirubin Lactate Dehydrogenase Total Creatine Kinase CK-MB (CK-2) C-Reactive Protein NT-Pro-B Natriuret Pep Total Protein Albumin Triglycerides Urine WBC (Auto) Urine Creatinine Urine Total Protein Vancomycin Trough Random Vancomycin Absolute CD4 Count Absolute CD19 Count Crossmatch 10/13/16 10/13/16 10/13/16 20:40 20:57 23:33 WBC RBC Hgb Hct MCV MCH RDW Plt Count [place] # Baso # Seg Neutrophils % Seg Neuts % (Manual) Lymphocytes % (Manual) Monocytes % (Manual) Eosinophils % (Manual) Nucleated RBC % Seg Neutrophils # Seg Neutrophils # Man Abs Lymphs (Manual) Lymphocytes # (Manual) Monocytes # (Manual) Eosinophils # (Manual) Percent Retic PT INR D-Dimer POC ABG pH 7.201 L 7.455 H POC ABG pCO2 111.2 H 54.2 H POC ABG pO2 45 L 57 L Sodium 148 H Potassium Chloride Carbon Dioxide BUN Creatinine Glucose POC Glucose Lactic Acid Calcium Phosphorus Magnesium Ferritin Total Bilirubin Lactate Dehydrogenase Total Creatine Kinase CK-MB (CK-2) C-Reactive Protein NT-Pro-B Natriuret Pep Total Protein Albumin Triglycerides Urine WBC (Auto) Urine Creatinine Urine Total Protein Vancomycin Trough Random Vancomycin Absolute CD4 Count Absolute CD19 Count Crossmatch 10/14/16 10/14/16 10/14/16 00:48 04:12 05:30 WBC 23.1 H RBC 3.49 L Hgb 9.9 L Hct MCV MCH RDW 16.9 H Plt Count [place] # Baso # Seg Neutrophils % Seg Neuts % (Manual) 82.0 H Lymphocytes % (Manual) 9.0 L Monocytes % (Manual) Eosinophils % (Manual) Nucleated RBC % 2.0 H Seg Neutrophils # Seg Neutrophils # Man 18.9 H Abs Lymphs (Manual) Lymphocytes # (Manual) Monocytes # (Manual) 1.4 H Eosinophils # (Manual) Percent Retic PT INR D-Dimer POC ABG pH 7.497 H POC ABG pCO2 49.4 H POC ABG pO2 60 L Sodium Potassium Chloride Carbon Dioxide BUN Creatinine Glucose POC Glucose 147 H Lactic Acid Calcium Phosphorus Magnesium Ferritin Total Bilirubin Lactate Dehydrogenase Total Creatine Kinase CK-MB (CK-2) C-Reactive Protein NT-Pro-B Natriuret Pep Total Protein Albumin Triglycerides Urine WBC (Auto) Urine Creatinine Urine Total Protein Vancomycin Trough Random Vancomycin Absolute CD4 Count Absolute CD19 Count Crossmatch 10/14/16 10/14/16 10/14/16 05:30 05:30 05:53 WBC RBC Hgb Hct MCV MCH RDW Plt Count [place] # Baso # Seg Neutrophils % Seg Neuts % (Manual) Lymphocytes % (Manual) Monocytes % (Manual) Eosinophils % (Manual) Nucleated RBC % Seg Neutrophils # Seg Neutrophils # Man Abs Lymphs (Manual) Lymphocytes # (Manual) Monocytes # (Manual) Eosinophils # (Manual) Percent Retic PT INR D-Dimer POC ABG pH POC ABG pCO2 POC ABG pO2 Sodium 146 H Potassium Chloride Carbon Dioxide 35 H BUN 56 H Creatinine 1.3 H Glucose 155 H POC Glucose 156 H Lactic Acid Calcium Phosphorus 1.90 L D Magnesium 2.90 H Ferritin Total Bilirubin Lactate Dehydrogenase Total Creatine Kinase CK-MB (CK-2) C-Reactive Protein NT-Pro-B Natriuret Pep Total Protein Albumin Triglycerides Urine WBC (Auto) Urine Creatinine Urine Total Protein Vancomycin Trough Random Vancomycin Absolute CD4 Count Absolute CD19 Count Crossmatch 10/14/16 10/14/16 10/14/16 12:05 14:34 17:33 WBC RBC Hgb Hct MCV MCH RDW Plt Count [place] # Baso # Seg Neutrophils % Seg Neuts % (Manual) Lymphocytes % (Manual) Monocytes % (Manual) Eosinophils % (Manual) Nucleated RBC % Seg Neutrophils # Seg Neutrophils # Man Abs Lymphs (Manual) Lymphocytes # (Manual) Monocytes # (Manual) Eosinophils # (Manual) Percent Retic PT INR D-Dimer POC ABG pH POC ABG pCO2 57.4 H POC ABG pO2 177 H Sodium Potassium Chloride Carbon Dioxide BUN Creatinine Glucose POC Glucose 145 H 172 H Lactic Acid Calcium Phosphorus Magnesium Ferritin Total Bilirubin Lactate Dehydrogenase Total Creatine Kinase CK-MB (CK-2) C-Reactive Protein NT-Pro-B Natriuret Pep Total Protein Albumin Triglycerides Urine WBC (Auto) Urine Creatinine Urine Total Protein Vancomycin Trough Random Vancomycin Absolute CD4 Count Absolute CD19 Count Crossmatch 10/14/16 10/14/16 10/15/16 21:57 23:31 05:10 WBC 23.9 H RBC 3.33 L Hgb 9.5 L Hct 29.7 L MCV MCH RDW 16.8 H Plt Count [place] # Baso # Seg Neutrophils % Seg Neuts % (Manual) Lymphocytes % (Manual) Monocytes % (Manual) Eosinophils % (Manual) Nucleated RBC % 4.0 H Seg Neutrophils # Seg Neutrophils # Man 15.3 H Abs Lymphs (Manual) Lymphocytes # (Manual) Monocytes # (Manual) 1.7 H Eosinophils # (Manual) 0.5 H Percent Retic PT INR D-Dimer POC ABG pH POC ABG pCO2 53.6 H POC ABG pO2 60 L Sodium Potassium Chloride Carbon Dioxide BUN Creatinine Glucose POC Glucose 201 H Lactic Acid Calcium Phosphorus Magnesium Ferritin Total Bilirubin Lactate Dehydrogenase Total Creatine Kinase CK-MB (CK-2) C-Reactive Protein NT-Pro-B Natriuret Pep Total Protein Albumin Triglycerides Urine WBC (Auto) Urine Creatinine Urine Total Protein Vancomycin Trough Random Vancomycin Absolute CD4 Count Absolute CD19 Count Crossmatch 10/15/16 10/15/16 10/15/16 05:10 05:10 05:40 WBC RBC Hgb Hct MCV MCH RDW Plt Count [place] # Baso # Seg Neutrophils % Seg Neuts % (Manual) Lymphocytes % (Manual) Monocytes % (Manual) Eosinophils % (Manual) Nucleated RBC % Seg Neutrophils # Seg Neutrophils # Man Abs Lymphs (Manual) Lymphocytes # (Manual) Monocytes # (Manual) Eosinophils # (Manual) Percent Retic PT INR D-Dimer POC ABG pH POC ABG pCO2 POC ABG pO2 Sodium Potassium 3.5 L Chloride Carbon Dioxide 33 H BUN 61 H Creatinine Glucose 127 H POC Glucose 145 H Lactic Acid Calcium 8.2 L Phosphorus 4.90 H D Magnesium 2.90 H Ferritin Total Bilirubin Lactate Dehydrogenase Total Creatine Kinase CK-MB (CK-2) C-Reactive Protein NT-Pro-B Natriuret Pep Total Protein Albumin Triglycerides Urine WBC (Auto) Urine Creatinine Urine Total Protein Vancomycin Trough Random Vancomycin Absolute CD4 Count Absolute CD19 Count Crossmatch 10/15/16 10/15/16 10/15/16 06:17 11:09 17:50 WBC RBC Hgb Hct MCV MCH RDW Plt Count [place] # Baso # Seg Neutrophils % Seg Neuts % (Manual) Lymphocytes % (Manual) Monocytes % (Manual) Eosinophils % (Manual) Nucleated RBC % Seg Neutrophils # Seg Neutrophils # Man Abs Lymphs (Manual) Lymphocytes # (Manual) Monocytes # (Manual) Eosinophils # (Manual) Percent Retic PT INR D-Dimer POC ABG pH POC ABG pCO2 65.2 H POC ABG pO2 Sodium Potassium Chloride Carbon Dioxide BUN Creatinine Glucose POC Glucose 169 H 210 H Lactic Acid Calcium Phosphorus Magnesium Ferritin Total Bilirubin Lactate Dehydrogenase Total Creatine Kinase CK-MB (CK-2) C-Reactive Protein NT-Pro-B Natriuret Pep Total Protein Albumin Triglycerides Urine WBC (Auto) Urine Creatinine Urine Total Protein Vancomycin Trough Random Vancomycin Absolute CD4 Count Absolute CD19 Count Crossmatch 10/15/16 10/16/16 10/16/16 23:39 05:51 06:07 WBC RBC Hgb Hct MCV MCH RDW Plt Count [place] # Baso # Seg Neutrophils % Seg Neuts % (Manual) Lymphocytes % (Manual) Monocytes % (Manual) Eosinophils % (Manual) Nucleated RBC % Seg Neutrophils # Seg Neutrophils # Man Abs Lymphs (Manual) Lymphocytes # (Manual) Monocytes # (Manual) Eosinophils # (Manual) Percent Retic PT INR D-Dimer POC ABG pH POC ABG pCO2 56.8 H POC ABG pO2 50 L Sodium Potassium Chloride Carbon Dioxide BUN Creatinine Glucose POC Glucose 291 H 216 H Lactic Acid Calcium Phosphorus Magnesium Ferritin Total Bilirubin Lactate Dehydrogenase Total Creatine Kinase CK-MB (CK-2) C-Reactive Protein NT-Pro-B Natriuret Pep Total Protein Albumin Triglycerides Urine WBC (Auto) Urine Creatinine Urine Total Protein Vancomycin Trough Random Vancomycin Absolute CD4 Count Absolute CD19 Count Crossmatch 10/16/16 10/16/16 10/16/16 11:52 15:00 15:00 WBC 22.2 H RBC 3.13 L Hgb 9.0 L Hct 28.1 L MCV MCH RDW 15.9 H Plt Count [place] # Baso # Seg Neutrophils % Seg Neuts % (Manual) 96.0 H Lymphocytes % (Manual) 3.0 L Monocytes % (Manual) Eosinophils % (Manual) Nucleated RBC % 1.0 H Seg Neutrophils # Seg Neutrophils # Man 21.3 H Abs Lymphs (Manual) Lymphocytes # (Manual) 0.7 L Monocytes # (Manual) Eosinophils # (Manual) Percent Retic PT INR D-Dimer POC ABG pH POC ABG pCO2 POC ABG pO2 Sodium 146 H Potassium Chloride Carbon Dioxide 32 H BUN 55 H Creatinine Glucose 234 H POC Glucose 237 H Lactic Acid Calcium Phosphorus Magnesium Ferritin Total Bilirubin Lactate Dehydrogenase Total Creatine Kinase CK-MB (CK-2) C-Reactive Protein NT-Pro-B Natriuret Pep Total Protein Albumin Triglycerides Urine WBC (Auto) Urine Creatinine Urine Total Protein Vancomycin Trough Random Vancomycin Absolute CD4 Count Absolute CD19 Count Crossmatch 10/16/16 10/17/16 10/17/16 17:28 00:03 03:56 WBC 21.4 H RBC 3.18 L Hgb 8.9 L Hct 28.0 L MCV MCH RDW 16.0 H Plt Count [place] # Baso # Seg Neutrophils % Seg Neuts % (Manual) 98.0 H Lymphocytes % (Manual) 2.0 L Monocytes % (Manual) Eosinophils % (Manual) Nucleated RBC % 1.0 H Seg Neutrophils # 20.2 H Seg Neutrophils # Man 21.0 H Abs Lymphs (Manual) Lymphocytes # (Manual) 0.4 L Monocytes # (Manual) Eosinophils # (Manual) Percent Retic PT INR D-Dimer POC ABG pH POC ABG pCO2 POC ABG pO2 Sodium Potassium Chloride Carbon Dioxide BUN Creatinine Glucose POC Glucose 258 H 192 H Lactic Acid Calcium Phosphorus Magnesium Ferritin Total Bilirubin Lactate Dehydrogenase Total Creatine Kinase CK-MB (CK-2) C-Reactive Protein NT-Pro-B Natriuret Pep Total Protein Albumin Triglycerides Urine WBC (Auto) Urine Creatinine Urine Total Protein Vancomycin Trough Random Vancomycin Absolute CD4 Count Absolute CD19 Count Crossmatch 10/17/16 10/17/16 10/17/16 05:00 06:56 12:27 WBC RBC Hgb Hct MCV MCH RDW Plt Count [place] # Baso # Seg Neutrophils % Seg Neuts % (Manual) Lymphocytes % (Manual) Monocytes % (Manual) Eosinophils % (Manual) Nucleated RBC % Seg Neutrophils # Seg Neutrophils # Man Abs Lymphs (Manual) Lymphocytes # (Manual) Monocytes # (Manual) Eosinophils # (Manual) Percent Retic PT INR D-Dimer POC ABG pH POC ABG pCO2 64.3 H POC ABG pO2 72 L Sodium 149 H Potassium Chloride Carbon Dioxide 34 H BUN 50 H Creatinine Glucose 203 H POC Glucose 252 H Lactic Acid Calcium Phosphorus Magnesium Ferritin Total Bilirubin Lactate Dehydrogenase Total Creatine Kinase CK-MB (CK-2) C-Reactive Protein NT-Pro-B Natriuret Pep Total Protein Albumin Triglycerides Urine WBC (Auto) Urine Creatinine Urine Total Protein Vancomycin Trough Random Vancomycin Absolute CD4 Count Absolute CD19 Count Crossmatch 10/17/16 10/17/16 10/18/16 18:09 23:35 04:45 WBC RBC Hgb Hct MCV MCH RDW Plt Count [place] # Baso # Seg Neutrophils % Seg Neuts % (Manual) Lymphocytes % (Manual) Monocytes % (Manual) Eosinophils % (Manual) Nucleated RBC % Seg Neutrophils # Seg Neutrophils # Man Abs Lymphs (Manual) Lymphocytes # (Manual) Monocytes # (Manual) Eosinophils # (Manual) Percent Retic PT INR D-Dimer POC ABG pH POC ABG pCO2 66.8 H POC ABG pO2 59 L Sodium Potassium Chloride Carbon Dioxide BUN Creatinine Glucose POC Glucose 275 H 201 H Lactic Acid Calcium Phosphorus Magnesium Ferritin Total Bilirubin Lactate Dehydrogenase Total Creatine Kinase CK-MB (CK-2) C-Reactive Protein NT-Pro-B Natriuret Pep Total Protein Albumin Triglycerides Urine WBC (Auto) Urine Creatinine Urine Total Protein Vancomycin Trough Random Vancomycin Absolute CD4 Count Absolute CD19 Count Crossmatch 10/18/16 10/18/16 10/18/16 05:11 05:11 05:33 WBC 24.0 H RBC 3.54 L Hgb 9.7 L Hct MCV MCH 27 L RDW 15.8 H Plt Count [place] # Baso # Seg Neutrophils % Seg Neuts % (Manual) 94.0 H Lymphocytes % (Manual) 5.0 L Monocytes % (Manual) Eosinophils % (Manual) Nucleated RBC % 2.0 H Seg Neutrophils # Seg Neutrophils # Man 22.6 H Abs Lymphs (Manual) Lymphocytes # (Manual) Monocytes # (Manual) Eosinophils # (Manual) Percent Retic PT INR D-Dimer POC ABG pH POC ABG pCO2 POC ABG pO2 Sodium Potassium Chloride Carbon Dioxide 35 H BUN 53 H Creatinine Glucose 236 H POC Glucose 232 H Lactic Acid Calcium Phosphorus Magnesium Ferritin Total Bilirubin Lactate Dehydrogenase Total Creatine Kinase CK-MB (CK-2) C-Reactive Protein NT-Pro-B Natriuret Pep Total Protein Albumin Triglycerides Urine WBC (Auto) Urine Creatinine Urine Total Protein Vancomycin Trough Random Vancomycin Absolute CD4 Count Absolute CD19 Count Crossmatch 10/18/16 10/18/16 10/18/16 12:22 17:18 23:41 WBC RBC Hgb Hct MCV MCH RDW Plt Count [place] # Baso # Seg Neutrophils % Seg Neuts % (Manual) Lymphocytes % (Manual) Monocytes % (Manual) Eosinophils % (Manual) Nucleated RBC % Seg Neutrophils # Seg Neutrophils # Man Abs Lymphs (Manual) Lymphocytes # (Manual) Monocytes # (Manual) Eosinophils # (Manual) Percent Retic PT INR D-Dimer POC ABG pH POC ABG pCO2 POC ABG pO2 Sodium Potassium Chloride Carbon Dioxide BUN Creatinine Glucose POC Glucose 237 H 300 H 254 H Lactic Acid Calcium Phosphorus Magnesium Ferritin Total Bilirubin Lactate Dehydrogenase Total Creatine Kinase CK-MB (CK-2) C-Reactive Protein NT-Pro-B Natriuret Pep Total Protein Albumin Triglycerides Urine WBC (Auto) Urine Creatinine Urine Total Protein Vancomycin Trough Random Vancomycin Absolute CD4 Count Absolute CD19 Count Crossmatch 10/19/16 10/19/16 10/19/16 03:45 04:32 05:46 WBC RBC Hgb Hct MCV MCH RDW Plt Count [place] # Baso # Seg Neutrophils % Seg Neuts % (Manual) Lymphocytes % (Manual) Monocytes % (Manual) Eosinophils % (Manual) Nucleated RBC % Seg Neutrophils # Seg Neutrophils # Man Abs Lymphs (Manual) Lymphocytes # (Manual) Monocytes # (Manual) Eosinophils # (Manual) Percent Retic PT INR D-Dimer POC ABG pH POC ABG pCO2 66.7 H POC ABG pO2 55 L Sodium Potassium Chloride Carbon Dioxide BUN Creatinine Glucose POC Glucose 273 H Lactic Acid Calcium Phosphorus Magnesium Ferritin Total Bilirubin Lactate Dehydrogenase Total Creatine Kinase CK-MB (CK-2) C-Reactive Protein NT-Pro-B Natriuret Pep Total Protein Albumin Triglycerides 287 H Urine WBC (Auto) Urine Creatinine Urine Total Protein Vancomycin Trough Random Vancomycin Absolute CD4 Count Absolute CD19 Count Crossmatch Allied health notes reviewed: RT
--- NOTE | 2016-10-19 10:26 | Consultation ---
History of Present Illness - Reason for Consult Consult date: 10/19/16 - History of Present Illness Patient seen, resting in bed, labs reviewed. Continues to respond to name. Past History Past Medical History: anemia (sickle cell anemia) Social history: no significant social history Family history: no significant family history Medications and Allergies Allergies Allergy/AdvReac Type Severity Reaction Status Date / Time No Known Allergies Allergy Unverified 10/13/13 13:21 Home Medications Medication Instructions Recorded Confirmed Last Taken Type Folic Acid [Folvite] 1 mg PO QDAY 10/13/13 09/18/16 09/18/16 History oxyCODONE /ACETAMINOPHEN [Percocet 1 tab PO Q6HR PRN #10 tablet 10/13/1309/18/16 Rx 5/325 mg] Promethazine [Phenergan] 25 mg PO Q6H PRN 08/16/14 09/18/16 09/18/16 History valACYclovir [Valtrex] 500 mg PO DAILY 08/16/14 09/18/16 09/18/16 History Active Meds: Active Medications Acetaminophen (Tylenol) 650 mg PO Q4H PRN PRN Reason: Pain MILD(1-3)/Fever >100.5/PALACIOS Last Admin: 10/07/16 18:13 Dose: 650 mg Albuterol/Ipratropium (Duoneb 0.5 Mg-3 Mg/3 Ml Soln) 1 ampul IH Q6HRT [facility] Last Admin: 10/19/16 09:21 Dose: 1 ampul Lipase/Protease/Amylase (Pancreaze Dr 10,500 Unit) 1 each FEEDTUBE PRN PRN PRN Reason: For Clogged Feeding Tube Arformoterol Tartrate (Brovana Nebu) 15 mcg IH Q12HRT [facility] Last Admin: 10/19/16 09:21 Dose: Not Given Aspirin (Aspirin) 325 mg PO QDAY [facility] Last Admin: 10/19/16 09:22 Dose: 325 mg Budesonide (Pulmicort) 0.5 mg IH Q12HRT [facility] Last Admin: 10/19/16 09:21 Dose: 0.5 mg Diphenhydramine HCl (Benadryl) 12.5 mg IV Q4H PRN PRN Reason: Itching Last Admin: 09/30/16 07:02 Dose: 12.5 mg Enoxaparin Sodium (Lovenox) 40 mg SUB-Q QDAY [facility] Last Admin: 10/19/16 09:26 Dose: 40 mg Famotidine (Pepcid) 20 mg PO BID [facility] Last Admin: 10/19/16 09:23 Dose: 20 mg Folic Acid (Folvite) 1 mg PO QDAY [facility] Last Admin: 10/19/16 09:24 Dose: 1 mg Hydrophilic Ointment (Vaseline Lip Therapy) 1 applic TP Q2HR PRN PRN Reason: Dry Lips Fentanyl Citrate (Fentanyl Drip Premix) 2,000 mcg in 100 mls @ 4.649 mls/hr IV TITR SADAF; 1 MCG/KG/HR PRN Reason: Protocol Last Admin: 10/19/16 00:16 Dose: 2 mcg/kg/hr, 9.299 mls/hr Midazolam HCl 100 mg/ Sodium (Chloride) 100 mls @ 2 mls/hr IV TITR SADAF; 2 MG/HR PRN Reason: Protocol Last Admin: 10/04/16 12:54 Dose: 2 mg/hr, 2 mls/hr Dextrose (D5w) 1,000 mls @ 50 mls/hr IV DIRECT [facility]AD[facility] Last Admin: 10/18/16 17:36 Dose: 50 mls/hr Propofol (Diprivan 10 Mg/Ml) 1,000 mg in 100 mls @ 3.045 mls/hr IV TITR SADAF; 5 MCG/KG/MIN PRN Reason: Protocol Last Admin: 10/19/16 08:51 Dose: 5 mcg/kg/min, 3.045 mls/hr Insulin Detemir (Levemir) 20 units SUB-Q DAILY [facility] Last Admin: 10/19/16 09:24 Dose: 20 units Insulin Human Regular (Novolin R) 0 units SUB-Q Q6HR [facility] PRN Reason: Protocol Last Admin: 10/19/16 05:53 Dose: 3 units Linezolid (Zyvox) 600 mg PO Q12HR [facility] PRN Reason: Protocol Last Admin: 10/19/16 09:23 Dose: 600 mg Methylprednisolone Sodium Succinate (Solu-Medrol) 125 mg IV Q6H [facility] Last Admin: 10/19/16 08:51 Dose: 125 mg Multi-Ingred Cream/Lotion/Oil/Oint (Artificial Tears Ophth Oint) 1 applic OU Q4HR PRN PRN Reason: Dry Eye(s) Multivitamins (Theragran Tab) 1 each PO QDAY [facility] Last Admin: 10/19/16 09:24 Dose: 1 each Ondansetron HCl (Zofran) 4 mg IV Q8H PRN PRN Reason: Nausea And Vomiting Last Admin: 09/29/16 23:07 Dose: 4 mg Promethazine HCl (Phenergan) 25 mg UT Q6H PRN PRN Reason: Nausea And Vomiting Last Admin: 09/25/16 22:05 Dose: 25 mg Senna (Senokot) 17.2 mg PO DAILY [facility] Last Admin: 10/19/16 09:23 Dose: 17.2 mg Simple Syrup (Simple Syrup) 15 ml FEEDTUBE PRN PRN PRN Reason: Hypoglycemia Simple Syrup (Simple Syrup) 30 ml FEEDTUBE PRN PRN PRN Reason: Hypoglycemia Sodium Bicarbonate (Sodium Bicarbonate) 325 mg FEEDTUBE PRN PRN PRN Reason: For Clogged Feeding Tube Sodium Chloride (Sodium Chloride Flush Syringe 10 Ml) 10 ml IV PRN PRN PRN Reason: LINE FLUSH Tramadol HCl (Ultram) 50 mg PO Q4H PRN PRN Reason: Pain, Moderate (4-6) Last Admin: 10/06/16 21:54 Dose: 50 mg Valacyclovir HCl (Valtrex) 500 mg PO DAILY [facility] Last Admin: 10/19/16 09:24 Dose: 500 mg Zolpidem Tartrate (Ambien) 5 mg PO QHS PRN PRN Reason: Sleep Review of Systems Breasts: deferred Respiratory: other (on vent) Exam - Constitutional Vitals: Temp Pulse Resp BP Pulse Ox 98.9 F 111 H 27 H 126/78 99 10/19/16 08:00 10/19/16 09:31 10/19/16 09:31 10/19/16 09:17 10/19/16 09:17 General appearance: Present: severe distress, well-nourished - EENT ENT: hearing intact, clear oral mucosa - Neck Neck: Present: supple, normal ROM - Respiratory Respiratory: bilateral: other (on vent) - Cardiovascular Heart Sounds: Present: S1 & S2. Absent: rub, click - Extremities Extremities: pulses symmetrical, No edema Peripheral Pulses: within normal limits - Abdominal General gastrointestinal: Present: soft, non-tender, non-distended, normal bowel sounds Female genitourinary: Present: deferred - Rectal Rectal Exam: deferred - Integumentary Integumentary: Present: clear, warm, dry Results - Labs CBC & Chem 7: 10/18/16 05:11 10/18/16 05:11 Labs: Abnormal lab results 10/18/16 10/18/16 10/18/16 Range/Units 12:22 17:18 23:41 POC ABG pCO2 (35-45) POC ABG pO2 (80-105) POC Glucose 237 H 300 H 254 H (70-105) Triglycerides (2-149) mg/dL 10/19/16 10/19/16 10/19/16 Range/Units 03:45 04:32 05:46 POC ABG pCO2 66.7 H (35-45) POC ABG pO2 55 L (80-105) POC Glucose 273 H (70-105) Triglycerides 287 H (2-149) mg/dL Assessment and Plan - Patient Problems (1) Sepsis Current Visit: Yes Status: Acute Qualifiers: Qualified Code(s): A41.9 - Sepsis, unspecified organism Plan to address problem: SEE w/up in the notes. No improvement so far. worsening sepsis. Slight improvement (2) Sleep apnea syndrome Current Visit: Yes Status: Acute Plan to address problem: oxygen/BIPAP management. Patient now in full resp failure, and on the vent. (3) UTI (urinary tract infection) Current Visit: Yes Status: Acute Plan to address problem: patient already on abx iv. may need culture sent. culture no growth. (4) Anemia Current Visit: Yes Status: Acute Plan to address problem: will transfuse if hgb 7.5 or less. no new issues at this time. May transfuse if further drop. (5) Leukocytosis Current Visit: Yes Status: Acute Plan to address problem: will order flow, and try leukophoresis. instead, exchange transfusion is done today. improving.
[2016-10-19 10:55] LABS: Hematocrit 29.7 % (30.3-42.9); Hemoglobin 9.4 gm/dl (10.1-14.3); Mean Corpuscular HGB Conc 32 % (30-34); Mean Corpuscular Hemoglobin 28 pg (28-32); Mean Corpuscular Volume 89 fl (79-97); Platelet Count 409 K/mm3 (140-440); Red Blood Count 3.36 M/mm3 (3.65-5.03); Red Cell Distribution Width 15.5 % (13.2-15.2)
[2016-10-19 11:07] LABS: Anion Gap 13 mmol/L; BUN/Creatinine Ratio 68.57; Blood Urea Nitrogen 48 mg/dL (7-17); Calcium 8.5 mg/dL (8.4-10.2); Carbon Dioxide 35 mmol/L (22-30); Chloride 93.9 mmol/L (98-107); Glucose 385 mg/dL (65-100); Potassium 4.4 mmol/L (3.6-5.0); Sodium 137 mmol/L (137-145)
[2016-10-20] MEDS: DUONEB 0.5 MG-3 MG/3 ML SOLN IH SCH ×4 (02:06→20:26)
[2016-10-20 04:56] LABS: Hematocrit 31.4 % (30.3-42.9); Hemoglobin 10.1 gm/dl (10.1-14.3); Mean Corpuscular HGB Conc 32 % (30-34); Mean Corpuscular Hemoglobin 28 pg (28-32); Mean Corpuscular Volume 87 fl (79-97); Platelet Count 402 K/mm3 (140-440); Red Blood Count 3.62 M/mm3 (3.65-5.03); Red Cell Distribution Width 15.3 % (13.2-15.2)
[2016-10-20 05:11] LABS: White Blood Count 21.1 K/mm3 (4.5-11.0)
[2016-10-20 05:17] LABS: Anion Gap 16 mmol/L; BUN/Creatinine Ratio 83.33; Blood Urea Nitrogen 50 mg/dL (7-17); Calcium 9.1 mg/dL (8.4-10.2); Carbon Dioxide 34 mmol/L (22-30); Chloride 98.2 mmol/L (98-107); Glucose 254 mg/dL (65-100); Potassium 4.9 mmol/L (3.6-5.0); Sodium 143 mmol/L (137-145)
[2016-10-20 05:37] LABS: ISTAT Base Excess 15; ISTAT PH 7.466 (7.35-7.45); ISTAT PO2 78 (80-105); ISTAT SO2 96; ISTAT TCO2 41
[2016-10-20] MEDS: fentaNYL DRIP Premix 2,000 MCG/100 ML BAG IV SCH (06:45)
--- NOTE | 2016-10-20 07:59 | Progress Note ---
Assessment and Plan Assessment and plan: The patient is a 41-year-old female with a history of sickle cell disease who was admitted for total hip arthroplasty for avascular necrosis of the left hip. She had left total hip arthroplasty on 09/25/2016 and developed acute hypoxemic respiratory failure following the POD 2 likely from ARDS and ultimately required intubation on 09/27/2016. Her hemoglobin level dropped from 8.1-6.9 on 09/30/2016, also noted to have hypokalemia with potassium level 3.1. Hospitalist service consulted for medical management. Patient remained intubated with mechanical ventilation. Her white count continued to trend up. Maintained on sepsis protocol, CT scan of abdomen and pelvis and thorax done without contrast to identify the source for infection. CT scan of the chest was suggestive for possible pneumonia. She is currently on broad-spectrum antibiotics, critically ill with poor prognosis. Acute respiratory failure with hypoxia. -has required mechanical ventilation for more than 96hrs -, intubated on 09/27/16 -Bronch on 10/15/16 showed alveolar hemorrhage and trachial aspirate growing MRSA , VRSA- MDR organism, started on zyvox and high dose steroids - on mechanical ventilation, still hoping to wean off vent -consider tracheostomy for [facility] weaning when patient is more stable - pulmonary following, cont nebulizer, vent support, has completed antibiotics - wean off as tolerated -Pulmonary input appreciated, goal is to get PEEP below 10 and transfer to LTACH for weaning Gram Positive sepsis - Due to pneumonia - Spiking temp intermittently. Have temperature of 100.1 two ago. Wbc count still elevated. - continue Zyvox - ID Physician following MRSA pneumonia-trachial aspirate growing MRSA, VRSA- MDR organism Diffuse alveolar hemorrhage: high dose steroid initiated Severe anemia - History of thalassemia major - has received multiple prbc transfusion, and received exchange transfusion on 10/10/16 Transfuse to keep Hg above 7.5 - hematology following - Hemoglobin 10.1 today Avascular necrosis of the left hip - s/p total left hip arthoplasty on 09/25/16 Hypokalemia -resolved, after replacement. Hypernatremia -Continue free water via gastric tube, resolved, Hypophosphatemia, now resolved Acute kidney injury - likely from sepsis syndrome and ATN, now resolving, Creatinine 0.6 - monitor renal function - nephrology following, renal function impro Leukocytosis WBC still elevated, improving, hematology input appreciated, flow cytometry has been ordered by the passenger relations representative DVT prophylaxis with Lovenox FULL CODE STATUS Disposition: Plan is for LTAC placement NOK: Son: Jordan Love [phone] Son: Gino love: [phone] Daughter: Varun Love [phone] History Interval history: Still intubated, more responsive Hospitalist Physical - Physical exam Narrative exam: Appearance:Morbidly obese HEENT: Normocephalic, atraumatic, orally intubated Neck : intubated, no JVD Lungs: Clear to auscultation bilaterally, no crackles or wheeze Heart : S1 and S2 regular, no murmurs, rubs or gallop Abdomen: soft, nontender, nondistended, normal bowel sounds Extremities:No edema, no clubbing or cyanosis Neuro: Awake,alert, follows commands, moves all ext - Constitutional Vitals: Temp Pulse Resp BP Pulse Ox 98.4 F 111 H 18 139/81 97 10/20/16 07:38 10/20/16 07:39 10/20/16 07:39 10/20/16 07:15 10/20/16 07:00 General appearance: Present: no acute distress, obese Results - Labs CBC & Chem 7: 10/20/16 Unknown 10/20/16 Unknown Labs: Laboratory Last Values WBC 21.1 K/mm3 (4.5-11.0) H 10/20/16 Unknown RBC 3.62 M/mm3 (3.65-5.03) L 10/20/16 Unknown Hgb 10.1 gm/dl (10.1-14.3) 10/20/16 Unknown Hct 31.4 % (30.3-42.9) 10/20/16 Unknown MCV 87 fl (79-97) 10/20/16 Unknown MCH 28 pg (28-32) 10/20/16 Unknown MCHC 32 % (30-34) 10/20/16 Unknown RDW 15.3 % (13.2-15.2) H 10/20/16 Unknown Plt Count 402 K/mm3 (140-440) 10/20/16 Unknown Lymph % (Auto) 33.3 % (13.4-35.0) 09/20/16 10:35 [place] % (Auto) 1.5 % (0.0-7.3) 10/17/16 03:56 Eos % (Auto) 0.0 % (0.0-4.3) 10/17/16 03:56 Baso % (Auto) 0.7 % (0.0-1.8) 09/20/16 10:35 Lymph # Rougher Operator 10/11/16 12:54 [place] # 0.3 K/mm3 (0.0-0.8) 10/17/16 03:56 Eos # 0.0 K/mm3 (0.0-0.4) 10/17/16 03:56 Baso # 0.0 K/mm3 (0.0-0.1) 10/17/16 03:56 Add Manual Diff Complete 10/18/16 05:11 Total Counted 100 10/18/16 05:11 Seg Neutrophils % Rougher Operator 10/18/16 05:11 Seg Neuts % (Manual) 94.0 % (40.0-70.0) H 10/18/16 05:11 Band Neutrophils % 0 % 10/18/16 05:11 Lymphocytes % (Manual) 5.0 % (13.4-35.0) L 10/18/16 05:11 Reactive Lymphs % (Man) 0 % 10/18/16 05:11 Monocytes % (Manual) 1.0 % (0.0-7.3) 10/18/16 05:11 Eosinophils % (Manual) 0 % (0.0-4.3) 10/18/16 05:11 Basophils % (Manual) 0 % (0.0-1.8) 10/18/16 05:11 Metamyelocytes % 0 % 10/18/16 05:11 Myelocytes % 0 % 10/18/16 05:11 Promyelocytes % 0 % 10/18/16 05:11 Blast Cells % 0 % 10/18/16 05:11 Nucleated RBC % 2.0 % (0.0-0.9) H 10/18/16 05:11 Seg Neutrophils # 20.2 K/mm3 (1.8-7.7) H 10/17/16 03:56 Seg Neutrophils # Man 22.6 K/mm3 (1.8-7.7) H 10/18/16 05:11 Band Neutrophils # 0.0 K/mm3 10/18/16 05:11 Abs Lymphs (Manual) 3936 cells/uL (850-3900) H 10/10/16 13:03 Lymphocytes # (Manual) 1.2 K/mm3 (1.2-5.4) 10/18/16 05:11 Abs React Lymphs (Man) 0.0 K/mm3 10/18/16 05:11 Monocytes # (Manual) 0.2 K/mm3 (0.0-0.8) 10/18/16 05:11 Eosinophils # (Manual) 0.0 K/mm3 (0.0-0.4) 10/18/16 05:11 Basophils # (Manual) 0.0 K/mm3 (0.0-0.1) 10/18/16 05:11 Metamyelocytes # 0.0 K/mm3 10/18/16 05:11 Myelocytes # 0.0 K/mm3 10/18/16 05:11 Promyelocytes # 0.0 K/mm3 10/18/16 05:11 Blast Cells # 0.0 K/mm3 10/18/16 05:11 Pathologist Review 10/10/16 06:00 WBC Morphology Not Reportable 10/18/16 05:11 Hypersegmented Neuts Not Reportable 10/18/16 05:11 Hyposegmented Neuts Not Reportable 10/18/16 05:11 Hypogranular Neuts Not Reportable 10/18/16 05:11 Smudge Cells Not Reportable 10/18/16 05:11 Toxic Granulation Not Reportable 10/18/16 05:11 Toxic Vacuolation Not Reportable 10/18/16 05:11 Dohle Bodies Not Reportable 10/18/16 05:11 Pelger-Huet Anomaly Not Reportable 10/18/16 05:11 Jaspreet Rods Not Reportable 10/18/16 05:11 Platelet Estimate Consistent w auto 10/18/16 05:11 Clumped Platelets Not Reportable 10/18/16 05:11 Plt Clumps, EDTA Not Reportable 10/18/16 05:11 Large Platelets Not Reportable 10/18/16 05:11 Giant Platelets Not Reportable 10/18/16 05:11 Platelet Satelliting Not Reportable 10/18/16 05:11 Plt Morphology Comment Not Reportable 10/18/16 05:11 RBC Morphology Not Reportable 10/18/16 05:11 Dimorphic RBCs Not Reportable 10/18/16 05:11 Polychromasia 1+ 10/18/16 05:11 Hypochromasia 1+ 10/18/16 05:11 Poikilocytosis Not Reportable 10/18/16 05:11 Basophilic Stippling 1+ 10/17/16 03:56 Anisocytosis Not Reportable 10/18/16 05:11 Microcytosis Not Reportable 10/18/16 05:11 Macrocytosis Not Reportable 10/18/16 05:11 Spherocytes Not Reportable 10/18/16 05:11 Pappenheimer Bodies Not Reportable 10/18/16 05:11 Sickle Cells Not Reportable 10/18/16 05:11 Target Cells Few 10/18/16 05:11 Tear Drop Cells Not Reportable 10/18/16 05:11 Ovalocytes Not Reportable 10/18/16 05:11 Stomatocytes Few 10/18/16 05:11 Helmet Cells Not Reportable 10/18/16 05:11 [place] Bodies Not Reportable 10/18/16 05:11 [place] Rings Not Reportable 10/18/16 05:11 [place] Cells Not Reportable 10/18/16 05:11 Bite Cells Not Reportable 10/18/16 05:11 Crenated Cell Not Reportable 10/18/16 05:11 Elliptocytes Not Reportable 10/18/16 05:11 Acanthocytes (Spur) Not Reportable 10/18/16 05:11 Rouleaux Not Reportable 10/18/16 05:11 Hemoglobin C Crystals Not Reportable 10/18/16 05:11 Schistocytes Not Reportable 10/18/16 05:11 Malaria parasites Not Reportable 10/18/16 05:11 Percent Retic 8.11 % (0.78-2.58) H 09/27/16 22:47 [place] Bodies Not Reportable 10/18/16 05:11 Hem Pathologist Commnt No 10/18/16 05:11 PT 17.6 Sec. (12.2-14.9) H 10/10/16 13:03 INR 1.45 (0.87-1.13) H 10/10/16 13:03 APTT 31.1 Sec. (24.2-36.6) 09/20/16 10:35 D-Dimer 4758.12 ng/mlDDU (0-234) H 09/27/16 22:47 POC ABG pH 7.466 (7.35-7.45) H 10/20/16 04:40 POC ABG pCO2 54.0 (35-45) H 10/20/16 04:40 POC ABG pO2 78 (80-105) L 10/20/16 04:40 POC ABG HCO3 39.0 10/20/16 04:40 POC ABG Total CO2 41 10/20/16 04:40 POC ABG O2 Sat 96 10/20/16 04:40 POC ABG Base Excess 15 10/20/16 04:40 FiO2 45 % 10/20/16 04:40 Sodium 143 mmol/L (137-145) 10/20/16 Unknown Potassium 4.9 mmol/L (3.6-5.0) 10/20/16 Unknown Chloride 98.2 mmol/L (98-107) 10/20/16 Unknown Carbon Dioxide 34 mmol/L (22-30) H 10/20/16 Unknown Anion Gap 16 mmol/L 10/20/16 Unknown BUN 50 mg/dL (7-17) H 10/20/16 Unknown Creatinine 0.6 mg/dL (0.7-1.2) L 10/20/16 Unknown Estimated GFR > 60 ml/min 10/20/16 Unknown BUN/Creatinine Ratio 83.33 % 10/20/16 Unknown Glucose 254 mg/dL (65-100) H 10/20/16 Unknown POC Glucose 257 (70-105) H 10/20/16 05:34 Osmolality 311 Mosm/kg 10/04/16 04:03 Lactic Acid 1.00 mmol/L (0.7-2.0) 10/14/16 00:30 Calcium 9.1 mg/dL (8.4-10.2) 10/20/16 Unknown Phosphorus 3.20 mg/dL (2.5-4.5) 10/17/16 05:00 Magnesium 2.90 mg/dL (1.7-2.3) H 10/15/16 05:10 Ferritin 782.0 ng/mL (13.0-400.0) H 10/10/16 06:00 Total Bilirubin 1.20 mg/dL (0.1-1.2) 10/04/16 04:03 AST 31 units/L (5-40) 10/04/16 04:03 ALT 33 units/L (7-56) 10/04/16 04:03 Alkaline Phosphatase 100 units/L (35-129) 10/04/16 04:03 Lactate Dehydrogenase 829 units/L (91-180) H 09/27/16 22:47 Total Creatine Kinase 3575 units/L (30-135) H 09/27/16 14:40 CK-MB (CK-2) 11.0 ng/mL (0.0-4.0) H 09/27/16 14:40 CK-MB (CK-2) Rel Index 0.3 (0-4) 09/27/16 14:40 Troponin T < 0.010 ng/mL (0.00-0.029) 09/27/16 14:40 C-Reactive Protein 1.00 mg/dL (0.00-1.30) 10/14/16 00:30 NT-Pro-B Natriuret Pep 2018 pg/mL (0-450) H 09/30/16 14:05 Total Protein 5.6 g/dL (6.3-8.2) L 10/04/16 04:03 Albumin 2.1 g/dL (3.9-5) L 10/04/16 04:03 Albumin/Globulin Ratio 0.6 % 10/04/16 04:03 Triglycerides 287 mg/dL (2-149) H 10/19/16 03:45 Urine Color Yellow (Yellow) 10/03/16 15:54 Urine Turbidity Cloudy (Clear) 10/03/16 15:54 Urine pH 5.0 (5.0-7.0) 10/03/16 15:54 Ur Specific [place] 1.013 (1.003-1.030) 10/03/16 15:54 Urine Protein 30 mg/dl mg/dL (Negative) 10/03/16 15:54 Urine Glucose (UA) Neg mg/dL (Negative) 10/03/16 15:54 Urine Ketones Neg mg/dL (Negative) 10/03/16 15:54 Urine Blood Lg (Negative) 10/03/16 15:54 Urine Nitrite Neg (Negative) 10/03/16 15:54 Urine Bilirubin Neg (Negative) 10/03/16 15:54 Urine Urobilinogen < 2.0 mg/dL (<2.0) 10/03/16 15:54 Ur Leukocyte Esterase Tr (Negative) 10/03/16 15:54 Urine WBC (Auto) 21.0 /HPF (0.0-6.0) H 10/03/16 15:54 Urine RBC (Auto) 65.0 /HPF (0.0-6.0) 10/03/16 15:54 U Epithel Cells (Auto) 2.0 /HPF (0-13.0) 10/03/16 15:54 Urine Bacteria (Auto) 3+ /HPF (Negative) 10/03/16 15:54 Amorphous Crystals 1+ 10/03/16 15:54 Urine Mucus Few /HPF 10/03/16 15:54 Urine Creatinine 63.2 mg/dL (0.1-20.0) H 10/03/16 15:54 Urine Sodium 20 mEq/L 10/03/16 15:54 Urine Total Protein 67 mg/dL (5-11.8) H 10/03/16 15:54 Vancomycin Trough 45.5 ug/mL (5.0-20.0) H 10/04/16 12:39 Random Vancomycin 14.9 ug/mL (0-40.0) 10/07/16 05:25 Lymph Enumerat CD4/CD8 2.87 (0.86-5.00) 10/10/16 13:03 % CD3 Cells 73 % (57-85) 10/10/16 13:03 Absolute CD3 Count 2879 cells/uL (840-3060) 10/10/16 13:03 % CD4 Cells 55 % (30-61) 10/10/16 13:03 Absolute CD4 Count 2178 cells/uL (490-1740) H 10/10/16 13:03 % CD8 Cells 19 % (12-42) 10/10/16 13:03 Absolute CD8 Count 759 cells/uL (180-1170) 10/10/16 13:03 % CD19 Cells 21 % (6-29) 10/10/16 13:03 Absolute CD19 Count 824 cells/uL (110-660) H 10/10/16 13:03 Flow Intrp 16+ Markers Scanned into med rec 10/08/16 04:00 Flow Cytometry Interp Scanned into [facility] rec 10/08/16 04:00 Blood Type O POSITIVE 10/09/16 10:00 Antibody Screen TNR 10/01/16 00:55 DEACON Antibody Screen Negative 10/09/16 10:00 Crossmatch See Detail 10/09/16 10:00
[2016-10-20] MEDS: PULMICORT IH SCH ×2 (09:03→20:25)
[2016-10-20] MEDS: BROVANA NEBU IH SCH ×2 (09:03→20:25)
[2016-10-20] MEDS: SENOKOT PO SCH (09:30)
[2016-10-20] MEDS: VALTREX PO SCH (09:30)
[2016-10-20] MEDS: LOVENOX SUB-Q SCH (09:30)
[2016-10-20] MEDS: PEPCID PO SCH ×2 (09:30→21:06)
[2016-10-20] MEDS: ZYVOX PO SCH ×2 (09:30→21:06)
[2016-10-20] MEDS: FOLVITE PO SCH (09:30)
[2016-10-20] MEDS: LEVEMIR SUB-Q SCH (09:30)
[2016-10-20] MEDS: ASPIRIN PO SCH (09:30)
[2016-10-20] MEDS: THERAGRAN Tab PO SCH (09:30)
--- NOTE | 2016-10-20 09:55 | XRay Report ---
AP CHEST :10/20/16 02:00 CLINICAL: Intubated.Follow up respiratory failure. COMPARISON:The previous day. FINDINGS: Tubes and lines are satisfactory and unchanged. Subcutaneous emphysema of the neck more prominent than on yesterday's exam and there appears to be a pneumomediastinum. No pneumothorax. The heart and lungs are unchanged. Continued diffuse multilobar airspace disease with air bronchograms. No pneumothorax. IMPRESSION: Pneumomediastinum and subcutaneous emphysema in the neck.No apparent pneumothorax.
--- NOTE | 2016-10-20 10:20 | Progress Note ---
Assessment and Plan - Patient Problems (1) Acute respiratory failure with hypoxia Current Visit: Yes Status: Acute Plan to address problem: Ventilator settings per gear cutting machine set up operator. Continue Linezolid. (2) Healthcare-associated pneumonia Current Visit: Yes Status: Acute Plan to address problem: Continue Linezolid. Subjective Date of service: 10/20/16 Principal diagnosis: Acute Hypoxemic Respiratory Failure; ARDS Interval history: Remains in ICU. Pnuemomediastinum with PEEP decreased. Objective - Exam Narrative Exam: awake, alert, in o apparent distress - Constitutional Vitals: Vital Signs Temp Pulse Resp BP Pulse Ox 98.4 F 102 H 37 H 130/79 97 10/20/16 08:09 10/20/16 10:00 10/20/16 09:16 10/20/16 10:00 10/20/16 09:45 Temperature -Last 24 Hours Temperature 98.4 F Temperature 98.4 F Temperature 99.0 F Temperature 99.4 F Temperature 99.0 F Temperature 99.2 F Temperature 98.8 F General appearance: Present: obese - EENT Eyes: exopthalmos - Respiratory Respiratory: bilateral: CTA, negative: rales, rhonchi - Cardiovascular Rhythm: regular (tachycardic to 100s) Heart Sounds: Present: S1 & S2 Extremities: No edema - Gastrointestinal General gastrointestinal: Present: soft, non-distended - Genitourinary Female genitourinary: other ([place] with yellow urine) - Integumentary Integumentary: no rash - Additional findings Additional findings: PICC left arm without inflammation - Labs CBC & Chem 7: 10/20/16 Unknown 10/20/16 Unknown Labs: Abnormal lab results 10/19/16 10/19/16 10/19/16 Range/Units 10:18 10:18 12:07 WBC 23.0 H (4.5-11.0) K/mm3 RBC 3.36 L (3.65-5.03) M/mm3 Hgb 9.4 L (10.1-14.3) gm/dl Hct 29.7 L (30.3-42.9) % RDW 15.5 H (13.2-15.2) % POC ABG pH (7.35-7.45) POC ABG pCO2 (35-45) POC ABG pO2 (80-105) Chloride 93.9 L (98-107) mmol/L Carbon Dioxide 35 H (22-30) mmol/L BUN 48 H (7-17) mg/dL Creatinine (0.7-1.2) mg/dL Glucose 385 H (65-100) mg/dL POC Glucose 226 H (70-105) 10/19/16 10/19/16 10/20/16 Range/Units 17:44 23:42 04:40 WBC (4.5-11.0) K/mm3 RBC (3.65-5.03) M/mm3 Hgb (10.1-14.3) gm/dl Hct (30.3-42.9) % RDW (13.2-15.2) % POC ABG pH 7.466 H (7.35-7.45) POC ABG pCO2 54.0 H (35-45) POC ABG pO2 78 L (80-105) Chloride (98-107) mmol/L Carbon Dioxide (22-30) mmol/L BUN (7-17) mg/dL Creatinine (0.7-1.2) mg/dL Glucose (65-100) mg/dL POC Glucose 268 H 283 H (70-105) 10/20/16 10/20/16 10/20/16 Range/Units 05:34 Unknown Unknown WBC 21.1 H (4.5-11.0) K/mm3 RBC 3.62 L (3.65-5.03) M/mm3 Hgb (10.1-14.3) gm/dl Hct (30.3-42.9) % RDW 15.3 H (13.2-15.2) % POC ABG pH (7.35-7.45) POC ABG pCO2 (35-45) POC ABG pO2 (80-105) Chloride (98-107) mmol/L Carbon Dioxide 34 H (22-30) mmol/L BUN 50 H (7-17) mg/dL Creatinine 0.6 L (0.7-1.2) mg/dL Glucose 254 H (65-100) mg/dL POC Glucose 257 H (70-105) Microbiology 10/15/16 Unknown Bronchoalveolar Lavage - Left Lower Lobe Respiratory Culture - Final 10/12/16 13:28 Tracheal Aspirate Sputum Culture - Final Methicillin Resist S. Aureus 10/04/16 04:05 Tracheal Aspirate Herpes Simplex Virus Culture - Final 10/03/16 09:20 Peripheral/Venous Blood Culture - Final NO GROWTH AFTER 5 DAYS 10/03/16 09:30 Picc Blood Culture - Final NO GROWTH AFTER 5 DAYS 10/03/16 09:06 Urine,Catheterized - Indwelling Catheter Urine Culture - Final 09/27/16 22:47 Peripheral/Venous Blood Culture - Final NO GROWTH AFTER 5 DAYS 09/27/16 22:47 Peripheral/Venous Blood Culture - Final NO GROWTH AFTER 5 DAYS 09/27/16 15:06 Peripheral/Venous Blood Culture - Final NO GROWTH AFTER 5 DAYS 09/27/16 14:40 Peripheral/Venous Blood Culture - Final NO GROWTH AFTER 5 DAYS 09/30/16 Unknown Tracheal Aspirate Sputum Culture - Final Active Medications Acetaminophen (Tylenol) 650 mg PO Q4H PRN PRN Reason: Pain MILD(1-3)/Fever >100.5/PALACIOS Last Admin: 10/07/16 18:13 Dose: 650 mg Albuterol/Ipratropium (Duoneb 0.5 Mg-3 Mg/3 Ml Soln) 1 ampul IH Q6HRT [facility] Last Admin: 10/20/16 09:15 Dose: Not Given Lipase/Protease/Amylase (Pancreaze Dr 10,500 Unit) 1 each FEEDTUBE PRN PRN PRN Reason: For Clogged Feeding Tube Arformoterol Tartrate (Brovana Nebu) 15 mcg IH Q12HRT [facility] Last Admin: 10/20/16 09:03 Dose: 15 mcg Aspirin (Aspirin) 325 mg PO QDAY [facility] Last Admin: 10/19/16 09:22 Dose: 325 mg Budesonide (Pulmicort) 0.5 mg IH Q12HRT [facility] Last Admin: 10/20/16 09:03 Dose: 0.5 mg Diphenhydramine HCl (Benadryl) 12.5 mg IV Q4H PRN PRN Reason: Itching Last Admin: 09/30/16 07:02 Dose: 12.5 mg Enoxaparin Sodium (Lovenox) 40 mg SUB-Q QDAY [facility] Last Admin: 10/19/16 09:26 Dose: 40 mg Famotidine (Pepcid) 20 mg PO BID [facility] Last Admin: 10/19/16 21:03 Dose: 20 mg Folic Acid (Folvite) 1 mg PO QDAY [facility] Last Admin: 10/19/16 09:24 Dose: 1 mg Hydrophilic Ointment (Vaseline Lip Therapy) 1 applic TP Q2HR PRN PRN Reason: Dry Lips Fentanyl Citrate (Fentanyl Drip Premix) 2,000 mcg in 100 mls @ 4.649 mls/hr IV TITR SADAF; 1 MCG/KG/HR PRN Reason: Protocol Last Admin: 10/20/16 06:45 Dose: 2 mcg/kg/hr, 9.299 mls/hr Midazolam HCl 100 mg/ Sodium (Chloride) 100 mls @ 2 mls/hr IV TITR SADAF; 2 MG/HR PRN Reason: Protocol Last Admin: 10/04/16 12:54 Dose: 2 mg/hr, 2 mls/hr Dextrose (D5w) 1,000 mls @ 50 mls/hr IV DIRECT [facility]ADAF Last Admin: 10/18/16 17:36 Dose: 50 mls/hr Propofol (Diprivan 10 Mg/Ml) 1,000 mg in 100 mls @ 3.045 mls/hr IV TITR SADAF; 5 MCG/KG/MIN PRN Reason: Protocol Last Admin: 10/19/16 08:51 Dose: 5 mcg/kg/min, 3.045 mls/hr Sodium Chloride (Nacl 0.45% 1000 Ml) 1,000 mls @ 75 mls/hr IV DIRECT SADAF Insulin Detemir (Levemir) 20 units SUB-Q DAILY [facility] Last Admin: 10/19/16 09:24 Dose: 20 units Insulin Human Regular (Novolin R) 0 units SUB-Q Q6HR [facility] PRN Reason: Protocol Last Admin: 10/20/16 06:26 Dose: 3 units Linezolid (Zyvox) 600 mg PO Q12HR [facility] PRN Reason: Protocol Last Admin: 10/19/16 21:03 Dose: 600 mg Methylprednisolone Sodium Succinate (Solu-Medrol) 125 mg IV Q6H [facility] Last Admin: 10/20/16 08:46 Dose: 125 mg Multi-Ingred Cream/Lotion/Oil/Oint (Artificial Tears Ophth Oint) 1 applic OU Q4HR PRN PRN Reason: Dry Eye(s) Multivitamins (Theragran Tab) 1 each PO QDAY [facility] Last Admin: 05/20/17 09:24 Dose: 1 each Ondansetron HCl (Zofran) 4 mg IV Q8H PRN PRN Reason: Nausea And Vomiting Last Admin: 09/29/16 23:07 Dose: 4 mg Promethazine HCl (Phenergan) 25 mg MS Q6H PRN PRN Reason: Nausea And Vomiting Last Admin: 09/25/16 22:05 Dose: 25 mg Senna (Senokot) 17.2 mg PO DAILY [facility] Last Admin: 10/19/16 09:23 Dose: 17.2 mg Simple Syrup (Simple Syrup) 15 ml FEEDTUBE PRN PRN PRN Reason: Hypoglycemia Simple Syrup (Simple Syrup) 30 ml FEEDTUBE PRN PRN PRN Reason: Hypoglycemia Sodium Bicarbonate (Sodium Bicarbonate) 325 mg FEEDTUBE PRN PRN PRN Reason: For Clogged Feeding Tube Sodium Chloride (Sodium Chloride Flush Syringe 10 Ml) 10 ml IV PRN PRN PRN Reason: LINE FLUSH Tramadol HCl (Ultram) 50 mg PO Q4H PRN PRN Reason: Pain, Moderate (4-6) Last Admin: 10/06/16 21:54 Dose: 50 mg Valacyclovir HCl (Valtrex) 500 mg PO DAILY [facility] Last Admin: 10/19/16 09:24 Dose: 500 mg Zolpidem Tartrate (Ambien) 5 mg PO QHS PRN PRN Reason: Sleep - Imaging and cardiology Chest x-ray: report reviewed (pneumomediastinum and subcutaneous emphysema noted )
[2016-10-20] MEDS: NACL 0.45% 1000 ML 1,000 ML IV SCH (13:00)
--- NOTE | 2016-10-20 14:03 | Progress Note ---
Assessment and Plan - Patient Problems (1) Acute respiratory failure with hypoxia Current Visit: Yes Status: Acute Plan to address problem: - changed back to AC mode - continue lung protective strategies (reduced TV to 400mls) - allow permissive hypercapnia - continue bronchodilators and pulmonary toilet - continue aspiration precautions / VAP bundles - continue to wean oxygen for sats > 90-92% at this point - prn ABG's - keep well sedated at this point with daily sedation vacations - will stop diuretics - s/p exchange blood transfusion - bronchoscopy consistent with Diffuse alveolar hemorhage - continue high dose steroids X 5 days then taper - cover for MRSA with zyvox re: high SHEILA on vancomycin sensitivities (Discussed with ID) - began weaning Peep aggressively re: barotrauma - will compensate for hypoxemia by increasing FiO2 (2) ARDS (adult respiratory distress syndrome) Current Visit: Yes Status: Acute Plan to address problem: - 2D ECHO reports normal EF without impaired relaxation - non cardiogenic pulmonary edema - etiology unclear - treating empirically as HCAP - as above otherwise (3) Obesity Current Visit: Yes Status: Acute Qualifiers: Obesity type: O Obesity severity: O Plan to address problem: - weight loss counselled earlier - outpatient sleep clinic evaluation at discharge (4) Sepsis syndrome Current Visit: Yes Status: Acute Plan to address problem: - continue anti-infectives per ID recs - trend CRP / lactate prn - follow BAL studies (5) Anemia Current Visit: Yes Status: Acute Qualifiers: Anemia type: A Iron deficiency anemia type: I Vitamin B12 deficiency anemia type: V Folate deficiency anemia type: F Bone marrow failure anemia type: B Hemolytic anemia type: H Other causes of anemia: O Plan to address problem: - multifactorial - suspect ABLA component - h/o sickle cell - prn PRBC transfusions - hematology following - s/p exchange blood transfusion - likely element from [facility] (6) CARLYN (acute kidney injury) Current Visit: Yes Status: Acute Plan to address problem: - non oliguric - per nephrology recommendations - stopped diuretics (7) Discharge planning issues Current Visit: Yes Status: Acute Plan to address problem: - tentatively will transfer to LTAC in am if no extension of barotrauma .....she remains critically ill on life sustaining interventions including MVS and remains at risk for further deterioration including 30' CCT Subjective Date of service: 05/21/17 Principal diagnosis: Acute Hypoxemic Respiratory Failure; ARDS Interval history: Seen and examined at bedside; 24 hour events reviewed; nursing and respiratory care staff consulted; no adverse overnight events reported to me; begining to tolerate weaning Peep better; CXR suggests SQ emphysema around neck; she remains alert and appropriate during sedation holidays; no emesis or overt aspiration; no pneumothorax on CXR Objective Vital Signs - 12hr 10/20/16 10/20/16 10/20/16 02:07 02:14 02:30 Temperature Pulse Rate 90 Pulse Rate [ 99 H 86 Anterior Bilateral Throughout] Pulse Rate [ From Monitor] Respiratory 28 H Rate Respiratory 21 26 H Rate [Anterior Bilateral Throughout] Blood Pressure 130/79 O2 Sat by Pulse 94 Oximetry 10/20/16 10/20/16 10/20/16 02:46 03:00 03:15 Temperature Pulse Rate 94 H 100 H 85 Pulse Rate [ Anterior Bilateral Throughout] Pulse Rate [ From Monitor] Respiratory 23 13 Rate Respiratory Rate [Anterior Bilateral Throughout] Blood Pressure 101/54 133/74 O2 Sat by Pulse 93 91 Oximetry 10/20/16 10/20/16 10/20/16 03:30 03:45 04:00 Temperature 99.0 F Pulse Rate 89 95 H Pulse Rate [ Anterior Bilateral Throughout] Pulse Rate [ 82 From Monitor] Respiratory 26 H 24 Rate Respiratory Rate [Anterior Bilateral Throughout] Blood Pressure 151/83 163/91 145/84 O2 Sat by Pulse 93 92 Oximetry 10/20/16 10/20/16 10/20/16 04:15 04:30 04:45 Temperature Pulse Rate 92 H 90 82 Pulse Rate [ Anterior Bilateral Throughout] Pulse Rate [ From Monitor] Respiratory Rate Respiratory Rate [Anterior Bilateral Throughout] Blood Pressure 138/82 99/70 142/86 O2 Sat by Pulse 96 97 Oximetry 10/20/16 10/20/16 10/20/16 05:00 05:15 05:30 Temperature Pulse Rate 90 96 H 87 Pulse Rate [ Anterior Bilateral Throughout] Pulse Rate [ From Monitor] Respiratory Rate Respiratory Rate [Anterior Bilateral Throughout] Blood Pressure 134/80 111/62 103/62 O2 Sat by Pulse Oximetry 10/20/16 10/20/16 10/20/16 05:45 06:00 06:15 Temperature Pulse Rate 84 85 75 Pulse Rate [ Anterior Bilateral Throughout] Pulse Rate [ From Monitor] Respiratory Rate Respiratory Rate [Anterior Bilateral Throughout] Blood Pressure 99/54 100/60 139/76 O2 Sat by Pulse 97 Oximetry 10/20/16 10/20/16 10/20/16 06:30 06:45 07:00 Temperature Pulse Rate 87 88 96 H Pulse Rate [ Anterior Bilateral Throughout] Pulse Rate [ From Monitor] Respiratory Rate Respiratory Rate [Anterior Bilateral Throughout] Blood Pressure 135/71 141/81 146/85 O2 Sat by Pulse 97 Oximetry 10/20/16 10/20/16 10/20/16 07:15 07:30 07:38 Temperature 98.4 F Pulse Rate 96 H 101 H Pulse Rate [ Anterior Bilateral Throughout] Pulse Rate [ From Monitor] Respiratory Rate Respiratory Rate [Anterior Bilateral Throughout] Blood Pressure 139/81 148/87 O2 Sat by Pulse Oximetry 10/20/16 10/20/16 10/20/16 07:39 07:45 08:00 Temperature Pulse Rate 106 H 102 H Pulse Rate [ Anterior Bilateral Throughout] Pulse Rate [ 111 H From Monitor] Respiratory 18 Rate Respiratory Rate [Anterior Bilateral Throughout] Blood Pressure 145/86 132/84 O2 Sat by Pulse Oximetry 10/20/16 10/20/16 10/20/16 08:09 08:15 08:30 Temperature 98.4 F Pulse Rate 107 H 102 H Pulse Rate [ Anterior Bilateral Throughout] Pulse Rate [ From Monitor] Respiratory Rate Respiratory Rate [Anterior Bilateral Throughout] Blood Pressure 122/86 141/82 O2 Sat by Pulse 95 95 Oximetry 10/20/16 10/20/16 10/20/16 08:45 09:00 09:03 Temperature Pulse Rate 99 H 100 H 99 H Pulse Rate [ Anterior Bilateral Throughout] Pulse Rate [ From Monitor] Respiratory Rate Respiratory Rate [Anterior Bilateral Throughout] Blood Pressure 129/79 145/86 145/86 O2 Sat by Pulse 95 96 Oximetry 10/20/16 10/20/16 10/20/16 09:15 09:16 09:30 Temperature Pulse Rate 101 H 97 H Pulse Rate [ 99 H 93 H Anterior Bilateral Throughout] Pulse Rate [ From Monitor] Respiratory Rate Respiratory 34 H 37 H Rate [Anterior Bilateral Throughout] Blood Pressure 152/85 134/85 O2 Sat by Pulse 97 Oximetry 10/20/16 10/20/16 10/20/16 09:45 10:00 10:13 Temperature Pulse Rate 101 H 102 H 93 H Pulse Rate [ Anterior Bilateral Throughout] Pulse Rate [ From Monitor] Respiratory Rate Respiratory Rate [Anterior Bilateral Throughout] Blood Pressure 140/85 130/79 130/79 O2 Sat by Pulse 97 96 Oximetry 10/20/16 10/20/16 10/20/16 10:27 11:14 12:00 Temperature 98.1 F Pulse Rate 100 H Pulse Rate [ Anterior Bilateral Throughout] Pulse Rate [ From Monitor] Respiratory Rate Respiratory Rate [Anterior Bilateral Throughout] Blood Pressure 130/79 138/81 O2 Sat by Pulse 95 94 Oximetry Constitutional: no acute distress, other (sedated) Eyes: non-icteric ENT: oropharynx moist Neck: supple, no lymphadenopathy Effort: mildly labored Ascultation: Bilateral: diminished breath sounds, other (coarse BS no wheezing) Cardiovascular: regular rate and rhythm Gastrointestinal: normoactive bowel sounds, soft, non-tender, non-distended Integumentary: normal Extremities: no cyanosis, no edema, pulses normal, no ischemia or petechiae Neurologic: normal mental status, non-focal exam, pupils equal and round, other (follows commands during sedation holidays) Psychiatric: other (sedated now) CBC and BMP: 10/20/16 Unknown 10/20/16 Unknown ABG, PT/INR, D-dimer: ABG POC ABG pH 7.466 (7.35-7.45) H 10/20/16 04:40 POC ABG pCO2 54.0 (35-45) H 10/20/16 04:40 POC ABG pO2 78 (80-105) L 10/20/16 04:40 POC ABG HCO3 39.0 10/20/16 04:40 POC ABG Total CO2 41 10/20/16 04:40 POC ABG O2 Sat 96 10/20/16 04:40 PT/INR, D-dimer PT 17.6 Sec. (12.2-14.9) H 10/10/16 13:03 INR 1.45 (0.87-1.13) H 10/10/16 13:03 D-Dimer 4758.12 ng/mlDDU (0-234) H 09/27/16 22:47 Abnormal lab findings: Abnormal Labs 09/20/16 09/20/16 09/20/16 10:35 10:35 10:35 WBC 11.7 H RBC Hgb Hct MCV 75 L MCH 24 L RDW 16.6 H Plt Count Richardson # Baso # Seg Neutrophils % Seg Neuts % (Manual) Lymphocytes % (Manual) Monocytes % (Manual) Eosinophils % (Manual) Nucleated RBC % Seg Neutrophils # Seg Neutrophils # Man Abs Lymphs (Manual) Lymphocytes # (Manual) Monocytes # (Manual) Eosinophils # (Manual) Percent Retic PT INR 1.14 H D-Dimer POC ABG pH POC ABG pCO2 POC ABG pO2 Sodium Potassium Chloride Carbon Dioxide BUN Creatinine 0.5 L Glucose 115 H POC Glucose Lactic Acid Calcium Phosphorus Magnesium Ferritin Total Bilirubin 2.0 H Lactate Dehydrogenase Total Creatine Kinase CK-MB (CK-2) C-Reactive Protein NT-Pro-B Natriuret Pep Total Protein Albumin Triglycerides Urine WBC (Auto) Urine Creatinine Urine Total Protein Vancomycin Trough Random Vancomycin Absolute CD4 Count Absolute CD19 Count Crossmatch 09/26/16 09/26/16 09/27/16 04:26 04:26 10:26 WBC RBC Hgb 8.9 L Hct 28.0 L MCV MCH RDW Plt Count [place] # Baso # Seg Neutrophils % Seg Neuts % (Manual) Lymphocytes % (Manual) Monocytes % (Manual) Eosinophils % (Manual) Nucleated RBC % Seg Neutrophils # Seg Neutrophils # Man Abs Lymphs (Manual) Lymphocytes # (Manual) Monocytes # (Manual) Eosinophils # (Manual) Percent Retic PT INR D-Dimer POC ABG pH 7.283 L POC ABG pCO2 45.3 H POC ABG pO2 79 L Sodium Potassium Chloride Carbon Dioxide 20 L BUN Creatinine Glucose 129 H POC Glucose Lactic Acid Calcium 7.6 L Phosphorus Magnesium Ferritin Total Bilirubin Lactate Dehydrogenase Total Creatine Kinase CK-MB (CK-2) C-Reactive Protein NT-Pro-B Natriuret Pep Total Protein Albumin Triglycerides Urine WBC (Auto) Urine Creatinine Urine Total Protein Vancomycin Trough Random Vancomycin Absolute CD4 Count Absolute CD19 Count Crossmatch 09/27/16 09/27/16 09/27/16 14:40 14:40 15:14 WBC 39.3 H RBC Hgb 9.3 L Hct 28.9 L MCV 75 L MCH 24 L RDW 18.7 H Plt Count [place] # Baso # Seg Neutrophils % Seg Neuts % (Manual) 93.5 H Lymphocytes % (Manual) 5.0 L Monocytes % (Manual) Eosinophils % (Manual) Nucleated RBC % Seg Neutrophils # Seg Neutrophils # Man 36.7 H Abs Lymphs (Manual) Lymphocytes # (Manual) Monocytes # (Manual) Eosinophils # (Manual) Percent Retic PT INR D-Dimer POC ABG pH POC ABG pCO2 POC ABG pO2 Sodium Potassium Chloride Carbon Dioxide BUN Creatinine Glucose POC Glucose Lactic Acid 2.9 H* Calcium Phosphorus Magnesium Ferritin Total Bilirubin Lactate Dehydrogenase Total Creatine Kinase 3575 H CK-MB (CK-2) 11.0 H C-Reactive Protein 16.10 H NT-Pro-B Natriuret Pep Total Protein Albumin Triglycerides Urine WBC (Auto) Urine Creatinine Urine Total Protein Vancomycin Trough Random Vancomycin Absolute CD4 Count Absolute CD19 Count Crossmatch 09/27/16 09/27/16 09/27/16 18:05 22:47 22:47 WBC RBC Hgb Hct MCV MCH RDW Plt Count [place] # Baso # Seg Neutrophils % Seg Neuts % (Manual) Lymphocytes % (Manual) Monocytes % (Manual) Eosinophils % (Manual) Nucleated RBC % Seg Neutrophils # Seg Neutrophils # Man Abs Lymphs (Manual) Lymphocytes # (Manual) Monocytes # (Manual) Eosinophils # (Manual) Percent Retic PT INR D-Dimer 4758.12 H POC ABG pH POC ABG pCO2 POC ABG pO2 70 L Sodium Potassium Chloride Carbon Dioxide BUN Creatinine Glucose POC Glucose Lactic Acid Calcium Phosphorus Magnesium Ferritin Total Bilirubin Lactate Dehydrogenase 829 H Total Creatine Kinase CK-MB (CK-2) C-Reactive Protein NT-Pro-B Natriuret Pep Total Protein Albumin Triglycerides Urine WBC (Auto) Urine Creatinine Urine Total Protein Vancomycin Trough Random Vancomycin Absolute CD4 Count Absolute CD19 Count Crossmatch 09/27/16 09/28/16 09/28/16 22:47 09:20 10:47 WBC RBC Hgb Hct MCV MCH RDW Plt Count [place] # Baso # Seg Neutrophils % Seg Neuts % (Manual) Lymphocytes % (Manual) Monocytes % (Manual) Eosinophils % (Manual) Nucleated RBC % Seg Neutrophils # Seg Neutrophils # Man Abs Lymphs (Manual) Lymphocytes # (Manual) Monocytes # (Manual) Eosinophils # (Manual) Percent Retic 8.11 H PT INR D-Dimer POC ABG pH POC ABG pCO2 47.2 H POC ABG pO2 70 L Sodium Potassium Chloride Carbon Dioxide BUN Creatinine 0.6 L Glucose 137 H POC Glucose Lactic Acid Calcium Phosphorus Magnesium Ferritin Total Bilirubin Lactate Dehydrogenase Total Creatine Kinase CK-MB (CK-2) C-Reactive Protein NT-Pro-B Natriuret Pep Total Protein Albumin Triglycerides Urine WBC (Auto) Urine Creatinine Urine Total Protein Vancomycin Trough Random Vancomycin Absolute CD4 Count Absolute CD19 Count Crossmatch 09/28/16 09/30/16 09/30/16 10:47 11:01 14:05 WBC 30.3 H RBC 3.27 L Hgb 8.1 L Hct 24.4 L MCV 75 L MCH 25 L RDW 18.9 H Plt Count [place] # Baso # Seg Neutrophils % Seg Neuts % (Manual) Lymphocytes % (Manual) 12.0 L Monocytes % (Manual) Eosinophils % (Manual) Nucleated RBC % 5.0 H Seg Neutrophils # Seg Neutrophils # Man 21.2 H Abs Lymphs (Manual) Lymphocytes # (Manual) Monocytes # (Manual) 1.8 H Eosinophils # (Manual) Percent Retic PT INR D-Dimer POC ABG pH POC ABG pCO2 48.8 H POC ABG pO2 52 L Sodium Potassium Chloride Carbon Dioxide BUN Creatinine Glucose POC Glucose Lactic Acid Calcium Phosphorus Magnesium Ferritin Total Bilirubin Lactate Dehydrogenase Total Creatine Kinase CK-MB (CK-2) C-Reactive Protein NT-Pro-B Natriuret Pep 2018 H Total Protein Albumin Triglycerides Urine WBC (Auto) Urine Creatinine Urine Total Protein Vancomycin Trough Random Vancomycin Absolute CD4 Count Absolute CD19 Count Crossmatch 09/30/16 09/30/16 09/30/16 14:05 14:05 14:05 WBC 22.1 H RBC 2.76 L Hgb 6.9 L Hct 20.6 L MCV 75 L MCH 25 L RDW 18.7 H Plt Count [place] # Jessicao # Seg Neutrophils % Seg Neuts % (Manual) 74.0 H Lymphocytes % (Manual) 7.0 L Monocytes % (Manual) Eosinophils % (Manual) Nucleated RBC % 52.0 H Seg Neutrophils # Seg Neutrophils # Man 16.4 H Abs Lymphs (Manual) Lymphocytes # (Manual) Monocytes # (Manual) Eosinophils # (Manual) Percent Retic PT INR D-Dimer POC ABG pH POC ABG pCO2 POC ABG pO2 Sodium Potassium 3.1 L Chloride Carbon Dioxide BUN Creatinine 0.5 L Glucose 116 H POC Glucose Lactic Acid Calcium 8.2 L Phosphorus Magnesium Ferritin Total Bilirubin Lactate Dehydrogenase Total Creatine Kinase CK-MB (CK-2) C-Reactive Protein 30.80 H NT-Pro-B Natriuret Pep Total Protein Albumin Triglycerides Urine WBC (Auto) Urine Creatinine Urine Total Protein Vancomycin Trough Random Vancomycin Absolute CD4 Count Absolute CD19 Count Crossmatch 09/30/16 10/01/16 10/01/16 14:33 00:55 00:55 WBC 26.1 H RBC 2.80 L Hgb 6.8 L Hct 20.8 L MCV 74 L MCH 24 L RDW 18.6 H Plt Count [place] # Baso # Seg Neutrophils % Seg Neuts % (Manual) 85.0 H Lymphocytes % (Manual) 11.0 L Monocytes % (Manual) Eosinophils % (Manual) Nucleated RBC % 21.0 H Seg Neutrophils # Seg Neutrophils # Man 22.2 H Abs Lymphs (Manual) Lymphocytes # (Manual) Monocytes # (Manual) 1.0 H Eosinophils # (Manual) Percent Retic PT INR D-Dimer POC ABG pH POC ABG pCO2 47.8 H POC ABG pO2 201 H Sodium Potassium Chloride Carbon Dioxide BUN Creatinine Glucose POC Glucose Lactic Acid Calcium Phosphorus Magnesium Ferritin Total Bilirubin Lactate Dehydrogenase Total Creatine Kinase CK-MB (CK-2) C-Reactive Protein NT-Pro-B Natriuret Pep Total Protein Albumin Triglycerides Urine WBC (Auto) Urine Creatinine Urine Total Protein Vancomycin Trough Random Vancomycin Absolute CD4 Count Absolute CD19 Count Crossmatch See Detail 10/01/16 10/01/16 10/01/16 04:57 05:00 13:01 WBC RBC Hgb Hct MCV MCH RDW Plt Count [place] # Baso # Seg Neutrophils % Seg Neuts % (Manual) Lymphocytes % (Manual) Monocytes % (Manual) Eosinophils % (Manual) Nucleated RBC % Seg Neutrophils # Seg Neutrophils # Man Abs Lymphs (Manual) Lymphocytes # (Manual) Monocytes # (Manual) Eosinophils # (Manual) Percent Retic PT INR D-Dimer POC ABG pH POC ABG pCO2 58.5 H POC ABG pO2 149 H Sodium 149 H Potassium 3.0 L Chloride Carbon Dioxide BUN Creatinine Glucose POC Glucose 120 H Lactic Acid Calcium 8.3 L Phosphorus Magnesium Ferritin Total Bilirubin Lactate Dehydrogenase Total Creatine Kinase CK-MB (CK-2) C-Reactive Protein NT-Pro-B Natriuret Pep Total Protein Albumin Triglycerides Urine WBC (Auto) Urine Creatinine Urine Total Protein Vancomycin Trough Random Vancomycin Absolute CD4 Count Absolute CD19 Count Crossmatch 10/01/16 10/01/16 10/01/16 15:43 17:44 23:37 WBC 27.6 H RBC 3.55 L Hgb 8.9 L Hct 27.6 L D MCV 78 L D MCH 25 L RDW 18.1 H Plt Count [place] # Baso # Seg Neutrophils % Seg Neuts % (Manual) 79.5 H Lymphocytes % (Manual) 8.0 L Monocytes % (Manual) Eosinophils % (Manual) Nucleated RBC % 65.0 H Seg Neutrophils # Seg Neutrophils # Man 21.9 H Abs Lymphs (Manual) Lymphocytes # (Manual) Monocytes # (Manual) 1.0 H Eosinophils # (Manual) Percent Retic PT INR D-Dimer POC ABG pH POC ABG pCO2 POC ABG pO2 Sodium Potassium Chloride Carbon Dioxide BUN Creatinine Glucose POC Glucose 121 H 129 H Lactic Acid Calcium Phosphorus Magnesium Ferritin Total Bilirubin Lactate Dehydrogenase Total Creatine Kinase CK-MB (CK-2) C-Reactive Protein NT-Pro-B Natriuret Pep Total Protein Albumin Triglycerides Urine WBC (Auto) Urine Creatinine Urine Total Protein Vancomycin Trough Random Vancomycin Absolute CD4 Count Absolute CD19 Count Crossmatch 10/02/16 10/02/16 10/02/16 05:05 05:40 06:00 WBC 23.0 H RBC 3.30 L Hgb 8.3 L Hct 25.8 L MCV 78 L MCH 25 L RDW 18.2 H Plt Count [place] # Baso # Seg Neutrophils % Seg Neuts % (Manual) 83.5 H Lymphocytes % (Manual) 4.0 L Monocytes % (Manual) Eosinophils % (Manual) Nucleated RBC % 14.5 H Seg Neutrophils # Seg Neutrophils # Man 25.1 H Abs Lymphs (Manual) Lymphocytes # (Manual) Monocytes # (Manual) 1.7 H Eosinophils # (Manual) Percent Retic PT INR D-Dimer POC ABG pH POC ABG pCO2 50.5 H POC ABG pO2 Sodium Potassium Chloride Carbon Dioxide BUN Creatinine Glucose POC Glucose 123 H Lactic Acid Calcium Phosphorus Magnesium Ferritin Total Bilirubin Lactate Dehydrogenase Total Creatine Kinase CK-MB (CK-2) C-Reactive Protein NT-Pro-B Natriuret Pep Total Protein Albumin Triglycerides Urine WBC (Auto) Urine Creatinine Urine Total Protein Vancomycin Trough Random Vancomycin Absolute CD4 Count Absolute CD19 Count Crossmatch 10/02/16 10/02/16 10/02/16 06:00 11:42 21:52 WBC RBC Hgb Hct MCV MCH RDW Plt Count [place] # Baso # Seg Neutrophils % Seg Neuts % (Manual) Lymphocytes % (Manual) Monocytes % (Manual) Eosinophils % (Manual) Nucleated RBC % Seg Neutrophils # Seg Neutrophils # Man Abs Lymphs (Manual) Lymphocytes # (Manual) Monocytes # (Manual) Eosinophils # (Manual) Percent Retic PT INR D-Dimer POC ABG pH 7.324 L POC ABG pCO2 60.5 H POC ABG pO2 74 L Sodium 150 H Potassium Chloride 108.3 H Carbon Dioxide BUN 20 H Creatinine 1.4 H D Glucose 117 H POC Glucose 135 H Lactic Acid Calcium Phosphorus Magnesium Ferritin Total Bilirubin Lactate Dehydrogenase Total Creatine Kinase CK-MB (CK-2) C-Reactive Protein NT-Pro-B Natriuret Pep Total Protein Albumin Triglycerides Urine WBC (Auto) Urine Creatinine Urine Total Protein Vancomycin Trough Random Vancomycin Absolute CD4 Count Absolute CD19 Count Crossmatch 10/02/16 10/03/16 10/03/16 23:26 05:55 08:17 WBC 32.0 H RBC 3.13 L Hgb 7.9 L Hct 24.6 L MCV MCH 25 L RDW 18.9 H Plt Count 132 L Richardson # Baso # Seg Neutrophils % Seg Neuts % (Manual) 75.0 H Lymphocytes % (Manual) 5.0 L Monocytes % (Manual) Eosinophils % (Manual) Nucleated RBC % 26.0 H Seg Neutrophils # Seg Neutrophils # Man 24.0 H Abs Lymphs (Manual) Lymphocytes # (Manual) Monocytes # (Manual) 1.0 H Eosinophils # (Manual) 1.0 H Percent Retic PT INR D-Dimer POC ABG pH POC ABG pCO2 POC ABG pO2 Sodium Potassium Chloride Carbon Dioxide BUN Creatinine Glucose POC Glucose 121 H 145 H Lactic Acid Calcium Phosphorus Magnesium Ferritin Total Bilirubin Lactate Dehydrogenase Total Creatine Kinase CK-MB (CK-2) C-Reactive Protein NT-Pro-B Natriuret Pep Total Protein Albumin Triglycerides Urine WBC (Auto) Urine Creatinine Urine Total Protein Vancomycin Trough Random Vancomycin Absolute CD4 Count Absolute CD19 Count Crossmatch 10/03/16 10/03/16 10/03/16 08:17 09:26 11:34 WBC RBC Hgb Hct MCV MCH RDW Plt Count [place] # Baso # Seg Neutrophils % Seg Neuts % (Manual) Lymphocytes % (Manual) Monocytes % (Manual) Eosinophils % (Manual) Nucleated RBC % Seg Neutrophils # Seg Neutrophils # Man Abs Lymphs (Manual) Lymphocytes # (Manual) Monocytes # (Manual) Eosinophils # (Manual) Percent Retic PT INR D-Dimer POC ABG pH 7.274 L POC ABG pCO2 59.7 H POC ABG pO2 58 L Sodium 147 H Potassium Chloride 107.6 H Carbon Dioxide BUN 31 H Creatinine 1.7 H Glucose 118 H POC Glucose 142 H Lactic Acid Calcium Phosphorus Magnesium Ferritin Total Bilirubin Lactate Dehydrogenase Total Creatine Kinase CK-MB (CK-2) C-Reactive Protein NT-Pro-B Natriuret Pep Total Protein Albumin Triglycerides Urine WBC (Auto) Urine Creatinine Urine Total Protein Vancomycin Trough Random Vancomycin Absolute CD4 Count Absolute CD19 Count Crossmatch 10/03/16 10/03/16 10/03/16 15:54 15:54 16:58 WBC RBC Hgb Hct MCV MCH RDW Plt Count [place] # Baso # Seg Neutrophils % Seg Neuts % (Manual) Lymphocytes % (Manual) Monocytes % (Manual) Eosinophils % (Manual) Nucleated RBC % Seg Neutrophils # Seg Neutrophils # Man Abs Lymphs (Manual) Lymphocytes # (Manual) Monocytes # (Manual) Eosinophils # (Manual) Percent Retic PT INR D-Dimer POC ABG pH POC ABG pCO2 POC ABG pO2 Sodium Potassium Chloride Carbon Dioxide BUN Creatinine Glucose POC Glucose 138 H Lactic Acid Calcium Phosphorus Magnesium Ferritin Total Bilirubin Lactate Dehydrogenase Total Creatine Kinase CK-MB (CK-2) C-Reactive Protein NT-Pro-B Natriuret Pep Total Protein Albumin Triglycerides Urine WBC (Auto) 21.0 H Urine Creatinine 63.2 H Urine Total Protein 67 H Vancomycin Trough Random Vancomycin Absolute CD4 Count Absolute CD19 Count Crossmatch 10/03/16 10/03/16 10/04/16 21:37 23:44 04:00 WBC 30.3 H RBC 2.86 L Hgb 7.3 L Hct 22.6 L MCV MCH 25 L RDW 19.6 H Plt Count 125 L [place] # Baso # Seg Neutrophils % Seg Neuts % (Manual) Lymphocytes % (Manual) 12.0 L Monocytes % (Manual) Eosinophils % (Manual) 5.0 H Nucleated RBC % 30.0 H Seg Neutrophils # Seg Neutrophils # Man 12.7 H Abs Lymphs (Manual) Lymphocytes # (Manual) Monocytes # (Manual) 1.2 H Eosinophils # (Manual) 1.5 H Percent Retic PT INR D-Dimer POC ABG pH 7.271 L POC ABG pCO2 61.7 H POC ABG pO2 77 L Sodium Potassium Chloride Carbon Dioxide BUN Creatinine Glucose POC Glucose 130 H Lactic Acid Calcium Phosphorus Magnesium Ferritin Total Bilirubin Lactate Dehydrogenase Total Creatine Kinase CK-MB (CK-2) C-Reactive Protein NT-Pro-B Natriuret Pep Total Protein Albumin Triglycerides Urine WBC (Auto) Urine Creatinine Urine Total Protein Vancomycin Trough Random Vancomycin Absolute CD4 Count Absolute CD19 Count Crossmatch 10/04/16 10/04/16 10/04/16 04:03 06:02 12:29 WBC RBC Hgb Hct MCV MCH RDW Plt Count [place] # Baso # Seg Neutrophils % Seg Neuts % (Manual) Lymphocytes % (Manual) Monocytes % (Manual) Eosinophils % (Manual) Nucleated RBC % Seg Neutrophils # Seg Neutrophils # Man Abs Lymphs (Manual) Lymphocytes # (Manual) Monocytes # (Manual) Eosinophils # (Manual) Percent Retic PT INR D-Dimer POC ABG pH 7.248 L POC ABG pCO2 62.3 H POC ABG pO2 59 L Sodium Potassium Chloride Carbon Dioxide BUN 40 H Creatinine 1.7 H Glucose 110 H POC Glucose 123 H Lactic Acid Calcium Phosphorus Magnesium Ferritin Total Bilirubin Lactate Dehydrogenase Total Creatine Kinase CK-MB (CK-2) C-Reactive Protein NT-Pro-B Natriuret Pep Total Protein 5.6 L Albumin 2.1 L Triglycerides Urine WBC (Auto) Urine Creatinine Urine Total Protein Vancomycin Trough Random Vancomycin Absolute CD4 Count Absolute CD19 Count Crossmatch 10/04/16 10/04/16 10/04/16 12:39 15:14 17:45 WBC RBC Hgb Hct MCV MCH RDW Plt Count [place] # Baso # Seg Neutrophils % Seg Neuts % (Manual) Lymphocytes % (Manual) Monocytes % (Manual) Eosinophils % (Manual) Nucleated RBC % Seg Neutrophils # Seg Neutrophils # Man Abs Lymphs (Manual) Lymphocytes # (Manual) Monocytes # (Manual) Eosinophils # (Manual) Percent Retic PT INR D-Dimer POC ABG pH POC ABG pCO2 POC ABG pO2 109 H Sodium Potassium Chloride Carbon Dioxide BUN Creatinine Glucose POC Glucose 124 H Lactic Acid Calcium Phosphorus Magnesium Ferritin Total Bilirubin Lactate Dehydrogenase Total Creatine Kinase CK-MB (CK-2) C-Reactive Protein NT-Pro-B Natriuret Pep Total Protein Albumin Triglycerides Urine WBC (Auto) Urine Creatinine Urine Total Protein Vancomycin Trough 45.5 H Random Vancomycin Absolute CD4 Count Absolute CD19 Count Crossmatch 10/04/16 10/04/16 10/05/16 20:13 23:05 01:27 WBC 36.1 H RBC 2.99 L Hgb 7.3 L Hct 23.5 L MCV MCH 25 L RDW 19.6 H Plt Count [place] # Baso # Seg Neutrophils % Seg Neuts % (Manual) Lymphocytes % (Manual) Monocytes % (Manual) Eosinophils % (Manual) Nucleated RBC % Seg Neutrophils # Seg Neutrophils # Man Abs Lymphs (Manual) Lymphocytes # (Manual) Monocytes # (Manual) Eosinophils # (Manual) Percent Retic PT INR D-Dimer POC ABG pH 7.341 L POC ABG pCO2 POC ABG pO2 47 L Sodium Potassium Chloride Carbon Dioxide BUN Creatinine Glucose POC Glucose 127 H Lactic Acid Calcium Phosphorus Magnesium Ferritin Total Bilirubin Lactate Dehydrogenase Total Creatine Kinase CK-MB (CK-2) C-Reactive Protein NT-Pro-B Natriuret Pep Total Protein Albumin Triglycerides Urine WBC (Auto) Urine Creatinine Urine Total Protein Vancomycin Trough Random Vancomycin Absolute CD4 Count Absolute CD19 Count Crossmatch 10/05/16 10/05/16 10/05/16 01:27 03:50 05:00 WBC RBC Hgb Hct MCV MCH RDW Plt Count [place] # Baso # Seg Neutrophils % Seg Neuts % (Manual) Lymphocytes % (Manual) Monocytes % (Manual) Eosinophils % (Manual) Nucleated RBC % Seg Neutrophils # Seg Neutrophils # Man Abs Lymphs (Manual) Lymphocytes # (Manual) Monocytes # (Manual) Eosinophils # (Manual) Percent Retic PT INR D-Dimer POC ABG pH 7.330 L POC ABG pCO2 45.3 H POC ABG pO2 53 L Sodium Potassium Chloride Carbon Dioxide BUN 49 H Creatinine 1.6 H Glucose 112 H POC Glucose Lactic Acid Calcium Phosphorus Magnesium Ferritin Total Bilirubin Lactate Dehydrogenase Total Creatine Kinase CK-MB (CK-2) C-Reactive Protein NT-Pro-B Natriuret Pep Total Protein Albumin Triglycerides Urine WBC (Auto) Urine Creatinine Urine Total Protein Vancomycin Trough Random Vancomycin 43.6 H Absolute CD4 Count Absolute CD19 Count Crossmatch 10/05/16 10/05/16 10/05/16 05:30 12:08 14:00 WBC RBC Hgb Hct MCV MCH RDW Plt Count [place] # Baso # Seg Neutrophils % Seg Neuts % (Manual) Lymphocytes % (Manual) Monocytes % (Manual) Eosinophils % (Manual) Nucleated RBC % Seg Neutrophils # Seg Neutrophils # Man Abs Lymphs (Manual) Lymphocytes # (Manual) Monocytes # (Manual) Eosinophils # (Manual) Percent Retic PT INR D-Dimer POC ABG pH POC ABG pCO2 POC ABG pO2 Sodium Potassium Chloride Carbon Dioxide BUN Creatinine Glucose POC Glucose 141 H 149 H Lactic Acid Calcium Phosphorus Magnesium Ferritin Total Bilirubin Lactate Dehydrogenase Total Creatine Kinase CK-MB (CK-2) C-Reactive Protein 28.40 H NT-Pro-B Natriuret Pep Total Protein Albumin Triglycerides Urine WBC (Auto) Urine Creatinine Urine Total Protein Vancomycin Trough Random Vancomycin Absolute CD4 Count Absolute CD19 Count Crossmatch 10/05/16 10/05/16 10/05/16 15:37 16:41 17:15 WBC RBC Hgb Hct MCV MCH RDW Plt Count [place] # Baso # Seg Neutrophils % Seg Neuts % (Manual) Lymphocytes % (Manual) Monocytes % (Manual) Eosinophils % (Manual) Nucleated RBC % Seg Neutrophils # Seg Neutrophils # Man Abs Lymphs (Manual) Lymphocytes # (Manual) Monocytes # (Manual) Eosinophils # (Manual) Percent Retic PT INR D-Dimer POC ABG pH 7.157 L 7.133 L POC ABG pCO2 75.0 H 80.5 H POC ABG pO2 76 L Sodium Potassium Chloride Carbon Dioxide BUN Creatinine Glucose POC Glucose 151 H Lactic Acid Calcium Phosphorus Magnesium Ferritin Total Bilirubin Lactate Dehydrogenase Total Creatine Kinase CK-MB (CK-2) C-Reactive Protein NT-Pro-B Natriuret Pep Total Protein Albumin Triglycerides Urine WBC (Auto) Urine Creatinine Urine Total Protein Vancomycin Trough Random Vancomycin Absolute CD4 Count Absolute CD19 Count Crossmatch 10/05/16 10/05/16 10/06/16 19:58 23:50 03:57 WBC 45.3 H* RBC 3.08 L Hgb 7.5 L Hct 24.5 L MCV MCH 25 L RDW 20.1 H Plt Count [place] # Jessica[place] # Seg Neutrophils % Seg Neuts % (Manual) 24.0 L Lymphocytes % (Manual) 10.0 L Monocytes % (Manual) Eosinophils % (Manual) Nucleated RBC % 36.0 H Seg Neutrophils # Seg Neutrophils # Man 10.9 H Abs Lymphs (Manual) Lymphocytes # (Manual) Monocytes # (Manual) 3.2 H Eosinophils # (Manual) 0.5 H Percent Retic PT INR D-Dimer POC ABG pH 7.198 L POC ABG pCO2 69.5 H POC ABG pO2 Sodium Potassium Chloride Carbon Dioxide BUN Creatinine Glucose POC Glucose 160 H Lactic Acid Calcium Phosphorus Magnesium Ferritin Total Bilirubin Lactate Dehydrogenase Total Creatine Kinase CK-MB (CK-2) C-Reactive Protein NT-Pro-B Natriuret Pep Total Protein Albumin Triglycerides Urine WBC (Auto) Urine Creatinine Urine Total Protein Vancomycin Trough Random Vancomycin Absolute CD4 Count Absolute CD19 Count Crossmatch 10/06/16 10/06/16 10/06/16 03:57 05:38 06:08 WBC RBC Hgb Hct MCV MCH RDW Plt Count [place] # Baso # Seg Neutrophils % Seg Neuts % (Manual) Lymphocytes % (Manual) Monocytes % (Manual) Eosinophils % (Manual) Nucleated RBC % Seg Neutrophils # Seg Neutrophils # Man Abs Lymphs (Manual) Lymphocytes # (Manual) Monocytes # (Manual) Eosinophils # (Manual) Percent Retic PT INR D-Dimer POC ABG pH 7.226 L POC ABG pCO2 63.3 H POC ABG pO2 Sodium 152 H D Potassium Chloride 114.1 H Carbon Dioxide BUN 58 H Creatinine 1.6 H Glucose 123 H POC Glucose 129 H Lactic Acid Calcium Phosphorus Magnesium Ferritin Total Bilirubin Lactate Dehydrogenase Total Creatine Kinase CK-MB (CK-2) C-Reactive Protein NT-Pro-B Natriuret Pep Total Protein Albumin Triglycerides Urine WBC (Auto) Urine Creatinine Urine Total Protein Vancomycin Trough Random Vancomycin Absolute CD4 Count Absolute CD19 Count Crossmatch 10/06/16 10/06/16 10/06/16 11:38 14:31 18:10 WBC RBC Hgb Hct MCV MCH RDW Plt Count [place] # Baso # Seg Neutrophils % Seg Neuts % (Manual) Lymphocytes % (Manual) Monocytes % (Manual) Eosinophils % (Manual) Nucleated RBC % Seg Neutrophils # Seg Neutrophils # Man Abs Lymphs (Manual) Lymphocytes # (Manual) Monocytes # (Manual) Eosinophils # (Manual) Percent Retic PT INR D-Dimer POC ABG pH 7.345 L POC ABG pCO2 49.5 H POC ABG pO2 60 L Sodium Potassium Chloride Carbon Dioxide BUN Creatinine Glucose POC Glucose 126 H 196 H Lactic Acid Calcium Phosphorus Magnesium Ferritin Total Bilirubin Lactate Dehydrogenase Total Creatine Kinase CK-MB (CK-2) C-Reactive Protein NT-Pro-B Natriuret Pep Total Protein Albumin Triglycerides Urine WBC (Auto) Urine Creatinine Urine Total Protein Vancomycin Trough Random Vancomycin Absolute CD4 Count Absolute CD19 Count Crossmatch 10/06/16 10/07/16 10/07/16 21:07 00:55 00:55 WBC 55.1 H* RBC 3.06 L Hgb 7.5 L Hct 24.4 L MCV MCH 24 L RDW 20.7 H Plt Count [place] # Baso # Seg Neutrophils % Seg Neuts % (Manual) Lymphocytes % (Manual) 8.0 L Monocytes % (Manual) 9.0 H Eosinophils % (Manual) Nucleated RBC % 30.0 H Seg Neutrophils # Seg Neutrophils # Man 27.0 H Abs Lymphs (Manual) Lymphocytes # (Manual) Monocytes # (Manual) 5.0 H Eosinophils # (Manual) 0.6 H Percent Retic PT INR D-Dimer POC ABG pH 7.317 L POC ABG pCO2 55.2 H POC ABG pO2 59 L Sodium 148 H Potassium Chloride 110.2 H Carbon Dioxide BUN 56 H Creatinine 1.7 H Glucose 211 H POC Glucose Lactic Acid Calcium Phosphorus Magnesium Ferritin Total Bilirubin Lactate Dehydrogenase Total Creatine Kinase CK-MB (CK-2) C-Reactive Protein NT-Pro-B Natriuret Pep Total Protein Albumin Triglycerides Urine WBC (Auto) Urine Creatinine Urine Total Protein Vancomycin Trough Random Vancomycin Absolute CD4 Count Absolute CD19 Count Crossmatch 10/07/16 10/07/16 10/07/16 01:01 05:20 06:31 WBC RBC Hgb Hct MCV MCH RDW Plt Count [place] # Baso # Seg Neutrophils % Seg Neuts % (Manual) Lymphocytes % (Manual) Monocytes % (Manual) Eosinophils % (Manual) Nucleated RBC % Seg Neutrophils # Seg Neutrophils # Man Abs Lymphs (Manual) Lymphocytes # (Manual) Monocytes # (Manual) Eosinophils # (Manual) Percent Retic PT INR D-Dimer POC ABG pH 7.310 L POC ABG pCO2 55.6 H POC ABG pO2 65 L Sodium Potassium Chloride Carbon Dioxide BUN Creatinine Glucose POC Glucose 249 H 235 H Lactic Acid Calcium Phosphorus Magnesium Ferritin Total Bilirubin Lactate Dehydrogenase Total Creatine Kinase CK-MB (CK-2) C-Reactive Protein NT-Pro-B Natriuret Pep Total Protein Albumin Triglycerides Urine WBC (Auto) Urine Creatinine Urine Total Protein Vancomycin Trough Random Vancomycin Absolute CD4 Count Absolute CD19 Count Crossmatch 10/07/16 10/07/16 10/07/16 12:00 18:04 23:48 WBC RBC Hgb Hct MCV MCH RDW Plt Count [place] # Baso # Seg Neutrophils % Seg Neuts % (Manual) Lymphocytes % (Manual) Monocytes % (Manual) Eosinophils % (Manual) Nucleated RBC % Seg Neutrophils # Seg Neutrophils # Man Abs Lymphs (Manual) Lymphocytes # (Manual) Monocytes # (Manual) Eosinophils # (Manual) Percent Retic PT INR D-Dimer POC ABG pH POC ABG pCO2 POC ABG pO2 Sodium Potassium Chloride Carbon Dioxide BUN Creatinine Glucose POC Glucose 210 H 201 H 163 H Lactic Acid Calcium Phosphorus Magnesium Ferritin Total Bilirubin Lactate Dehydrogenase Total Creatine Kinase CK-MB (CK-2) C-Reactive Protein NT-Pro-B Natriuret Pep Total Protein Albumin Triglycerides Urine WBC (Auto) Urine Creatinine Urine Total Protein Vancomycin Trough Random Vancomycin Absolute CD4 Count Absolute CD19 Count Crossmatch 10/08/16 10/08/16 10/08/16 04:00 04:00 04:10 WBC 58.0 H* RBC 2.95 L Hgb 7.3 L Hct 23.4 L MCV MCH 25 L RDW 20.8 H Plt Count [place] # Baso # Seg Neutrophils % Seg Neuts % (Manual) 75.0 H Lymphocytes % (Manual) 11.0 L Monocytes % (Manual) 8.0 H Eosinophils % (Manual) Nucleated RBC % 30.0 H Seg Neutrophils # Seg Neutrophils # Man 43.5 H Abs Lymphs (Manual) Lymphocytes # (Manual) 6.4 H Monocytes # (Manual) 4.6 H Eosinophils # (Manual) 0.6 H Percent Retic PT INR D-Dimer POC ABG pH POC ABG pCO2 POC ABG pO2 Sodium 152 H Potassium Chloride 111.4 H Carbon Dioxide BUN 59 H Creatinine 1.6 H Glucose 190 H POC Glucose 214 H Lactic Acid Calcium Phosphorus Magnesium Ferritin Total Bilirubin Lactate Dehydrogenase Total Creatine Kinase CK-MB (CK-2) C-Reactive Protein NT-Pro-B Natriuret Pep Total Protein Albumin Triglycerides Urine WBC (Auto) Urine Creatinine Urine Total Protein Vancomycin Trough Random Vancomycin Absolute CD4 Count Absolute CD19 Count Crossmatch 10/08/16 10/08/16 10/08/16 04:46 12:11 18:35 WBC RBC Hgb Hct MCV MCH RDW Plt Count [place] # Baso # Seg Neutrophils % Seg Neuts % (Manual) Lymphocytes % (Manual) Monocytes % (Manual) Eosinophils % (Manual) Nucleated RBC % Seg Neutrophils # Seg Neutrophils # Man Abs Lymphs (Manual) Lymphocytes # (Manual) Monocytes # (Manual) Eosinophils # (Manual) Percent Retic PT INR D-Dimer POC ABG pH POC ABG pCO2 POC ABG pO2 65 L Sodium Potassium Chloride Carbon Dioxide BUN Creatinine Glucose POC Glucose 199 H 187 H Lactic Acid Calcium Phosphorus Magnesium Ferritin Total Bilirubin Lactate Dehydrogenase Total Creatine Kinase CK-MB (CK-2) C-Reactive Protein NT-Pro-B Natriuret Pep Total Protein Albumin Triglycerides Urine WBC (Auto) Urine Creatinine Urine Total Protein Vancomycin Trough Random Vancomycin Absolute CD4 Count Absolute CD19 Count Crossmatch 10/08/16 10/09/16 10/09/16 23:38 04:43 05:38 WBC RBC Hgb Hct MCV MCH RDW Plt Count [place] # Baso # Seg Neutrophils % Seg Neuts % (Manual) Lymphocytes % (Manual) Monocytes % (Manual) Eosinophils % (Manual) Nucleated RBC % Seg Neutrophils # Seg Neutrophils # Man Abs Lymphs (Manual) Lymphocytes # (Manual) Monocytes # (Manual) Eosinophils # (Manual) Percent Retic PT INR D-Dimer POC ABG pH POC ABG pCO2 45.4 H POC ABG pO2 52 L Sodium Potassium Chloride Carbon Dioxide BUN Creatinine Glucose POC Glucose 202 H 182 H Lactic Acid Calcium Phosphorus Magnesium Ferritin Total Bilirubin Lactate Dehydrogenase Total Creatine Kinase CK-MB (CK-2) C-Reactive Protein NT-Pro-B Natriuret Pep Total Protein Albumin Triglycerides Urine WBC (Auto) Urine Creatinine Urine Total Protein Vancomycin Trough Random Vancomycin Absolute CD4 Count Absolute CD19 Count Crossmatch 10/09/16 10/09/16 10/09/16 07:40 07:40 10:00 WBC 37.3 H RBC 2.55 L Hgb 6.4 L Hct 20.7 L MCV MCH 25 L RDW 20.6 H Plt Count [place] # Baso # Seg Neutrophils % Seg Neuts % (Manual) Lymphocytes % (Manual) Monocytes % (Manual) Eosinophils % (Manual) Nucleated RBC % Seg Neutrophils # Seg Neutrophils # Man Abs Lymphs (Manual) Lymphocytes # (Manual) Monocytes # (Manual) Eosinophils # (Manual) Percent Retic PT INR D-Dimer POC ABG pH POC ABG pCO2 POC ABG pO2 Sodium 153 H Potassium 3.3 L Chloride 112.7 H Carbon Dioxide BUN 62 H Creatinine 1.7 H Glucose 146 H POC Glucose Lactic Acid Calcium Phosphorus Magnesium Ferritin Total Bilirubin Lactate Dehydrogenase Total Creatine Kinase CK-MB (CK-2) C-Reactive Protein NT-Pro-B Natriuret Pep Total Protein Albumin Triglycerides Urine WBC (Auto) Urine Creatinine Urine Total Protein Vancomycin Trough Random Vancomycin Absolute CD4 Count Absolute CD19 Count Crossmatch See Detail 10/09/16 10/09/16 10/10/16 12:06 17:08 00:01 WBC RBC Hgb Hct MCV MCH RDW Plt Count [place] # Baso # Seg Neutrophils % Seg Neuts % (Manual) Lymphocytes % (Manual) Monocytes % (Manual) Eosinophils % (Manual) Nucleated RBC % Seg Neutrophils # Seg Neutrophils # Man Abs Lymphs (Manual) Lymphocytes # (Manual) Monocytes # (Manual) Eosinophils # (Manual) Percent Retic PT INR D-Dimer POC ABG pH POC ABG pCO2 POC ABG pO2 Sodium Potassium Chloride Carbon Dioxide BUN Creatinine Glucose POC Glucose 214 H 152 H 189 H Lactic Acid Calcium Phosphorus Magnesium Ferritin Total Bilirubin Lactate Dehydrogenase Total Creatine Kinase CK-MB (CK-2) C-Reactive Protein NT-Pro-B Natriuret Pep Total Protein Albumin Triglycerides Urine WBC (Auto) Urine Creatinine Urine Total Protein Vancomycin Trough Random Vancomycin Absolute CD4 Count Absolute CD19 Count Crossmatch 10/10/16 10/10/16 10/10/16 04:25 05:28 06:00 WBC RBC Hgb Hct MCV MCH RDW Plt Count [place] # Baso # Seg Neutrophils % Seg Neuts % (Manual) Lymphocytes % (Manual) Monocytes % (Manual) Eosinophils % (Manual) Nucleated RBC % Seg Neutrophils # Seg Neutrophils # Man Abs Lymphs (Manual) Lymphocytes # (Manual) Monocytes # (Manual) Eosinophils # (Manual) Percent Retic PT INR D-Dimer POC ABG pH POC ABG pCO2 58.3 H POC ABG pO2 68 L Sodium Potassium Chloride Carbon Dioxide BUN Creatinine Glucose POC Glucose 155 H Lactic Acid Calcium Phosphorus Magnesium Ferritin Total Bilirubin Lactate Dehydrogenase Total Creatine Kinase CK-MB (CK-2) C-Reactive Protein NT-Pro-B Natriuret Pep Total Protein Albumin Triglycerides 407 H Urine WBC (Auto) Urine Creatinine Urine Total Protein Vancomycin Trough Random Vancomycin Absolute CD4 Count Absolute CD19 Count Crossmatch 10/10/16 10/10/16 10/10/16 06:00 06:00 06:00 WBC 38.5 H RBC 3.57 L Hgb 9.3 L Hct 30.1 L D MCV MCH 26 L RDW 22.0 H Plt Count 464 H Richardson # Baso # Seg Neutrophils % Seg Neuts % (Manual) 81.0 H Lymphocytes % (Manual) 9.0 L Monocytes % (Manual) Eosinophils % (Manual) Nucleated RBC % 84.0 H Seg Neutrophils # Seg Neutrophils # Man 31.2 H Abs Lymphs (Manual) Lymphocytes # (Manual) Monocytes # (Manual) Eosinophils # (Manual) 1.2 H Percent Retic PT INR D-Dimer POC ABG pH POC ABG pCO2 POC ABG pO2 Sodium 153 H Potassium Chloride 108.3 H Carbon Dioxide 31 H BUN 62 H Creatinine 1.5 H Glucose 160 H POC Glucose Lactic Acid Calcium Phosphorus Magnesium Ferritin 782.0 H Total Bilirubin Lactate Dehydrogenase Total Creatine Kinase CK-MB (CK-2) C-Reactive Protein NT-Pro-B Natriuret Pep Total Protein Albumin Triglycerides Urine WBC (Auto) Urine Creatinine Urine Total Protein Vancomycin Trough Random Vancomycin Absolute CD4 Count Absolute CD19 Count Crossmatch 10/10/16 10/10/16 10/10/16 11:29 13:03 13:03 WBC RBC Hgb Hct MCV MCH RDW Plt Count [place] # Baso # Seg Neutrophils % Seg Neuts % (Manual) Lymphocytes % (Manual) Monocytes % (Manual) Eosinophils % (Manual) Nucleated RBC % Seg Neutrophils # Seg Neutrophils # Man Abs Lymphs (Manual) 3936 H Lymphocytes # (Manual) Monocytes # (Manual) Eosinophils # (Manual) Percent Retic PT 17.6 H INR 1.45 H D-Dimer POC ABG pH POC ABG pCO2 POC ABG pO2 Sodium Potassium Chloride Carbon Dioxide BUN Creatinine Glucose POC Glucose 177 H Lactic Acid Calcium Phosphorus Magnesium Ferritin Total Bilirubin Lactate Dehydrogenase Total Creatine Kinase CK-MB (CK-2) C-Reactive Protein NT-Pro-B Natriuret Pep Total Protein Albumin Triglycerides Urine WBC (Auto) Urine Creatinine Urine Total Protein Vancomycin Trough Random Vancomycin Absolute CD4 Count 2178 H Absolute CD19 Count 824 H Crossmatch 10/10/16 10/11/16 10/11/16 17:38 00:04 05:35 WBC RBC Hgb Hct MCV MCH RDW Plt Count [place] # Baso # Seg Neutrophils % Seg Neuts % (Manual) Lymphocytes % (Manual) Monocytes % (Manual) Eosinophils % (Manual) Nucleated RBC % Seg Neutrophils # Seg Neutrophils # Man Abs Lymphs (Manual) Lymphocytes # (Manual) Monocytes # (Manual) Eosinophils # (Manual) Percent Retic PT INR D-Dimer POC ABG pH POC ABG pCO2 56.6 H POC ABG pO2 63 L Sodium Potassium Chloride Carbon Dioxide BUN Creatinine Glucose POC Glucose 173 H 155 H Lactic Acid Calcium Phosphorus Magnesium Ferritin Total Bilirubin Lactate Dehydrogenase Total Creatine Kinase CK-MB (CK-2) C-Reactive Protein NT-Pro-B Natriuret Pep Total Protein Albumin Triglycerides Urine WBC (Auto) Urine Creatinine Urine Total Protein Vancomycin Trough Random Vancomycin Absolute CD4 Count Absolute CD19 Count Crossmatch 10/11/16 10/11/16 10/11/16 06:01 11:43 12:54 WBC 31.8 H RBC Hgb Hct MCV MCH RDW 17.8 H Plt Count [place] # Baso # Seg Neutrophils % Seg Neuts % (Manual) 84.0 H Lymphocytes % (Manual) 9.0 L Monocytes % (Manual) Eosinophils % (Manual) Nucleated RBC % 28.0 H Seg Neutrophils # Seg Neutrophils # Man 27.1 H Abs Lymphs (Manual) Lymphocytes # (Manual) Monocytes # (Manual) 1.6 H Eosinophils # (Manual) Percent Retic PT INR D-Dimer POC ABG pH POC ABG pCO2 POC ABG pO2 Sodium Potassium Chloride Carbon Dioxide BUN Creatinine Glucose POC Glucose 231 H 185 H Lactic Acid Calcium Phosphorus Magnesium Ferritin Total Bilirubin Lactate Dehydrogenase Total Creatine Kinase CK-MB (CK-2) C-Reactive Protein NT-Pro-B Natriuret Pep Total Protein Albumin Triglycerides Urine WBC (Auto) Urine Creatinine Urine Total Protein Vancomycin Trough Random Vancomycin Absolute CD4 Count Absolute CD19 Count Crossmatch 10/11/16 10/11/16 10/11/16 12:54 14:10 18:02 WBC RBC Hgb Hct MCV MCH RDW Plt Count [place] # Baso # Seg Neutrophils % Seg Neuts % (Manual) Lymphocytes % (Manual) Monocytes % (Manual) Eosinophils % (Manual) Nucleated RBC % Seg Neutrophils # Seg Neutrophils # Man Abs Lymphs (Manual) Lymphocytes # (Manual) Monocytes # (Manual) Eosinophils # (Manual) Percent Retic PT INR D-Dimer POC ABG pH 7.311 L POC ABG pCO2 71.4 H POC ABG pO2 59 L Sodium Potassium Chloride 97.1 L Carbon Dioxide BUN 57 H Creatinine 1.6 H Glucose 369 H POC Glucose 206 H Lactic Acid Calcium 8.2 L Phosphorus Magnesium Ferritin Total Bilirubin Lactate Dehydrogenase Total Creatine Kinase CK-MB (CK-2) C-Reactive Protein NT-Pro-B Natriuret Pep Total Protein Albumin Triglycerides Urine WBC (Auto) Urine Creatinine Urine Total Protein Vancomycin Trough Random Vancomycin Absolute CD4 Count Absolute CD19 Count Crossmatch 10/11/16 10/11/16 10/12/16 20:57 21:23 00:43 WBC RBC Hgb Hct MCV MCH RDW Plt Count [place] # Baso # Seg Neutrophils % Seg Neuts % (Manual) Lymphocytes % (Manual) Monocytes % (Manual) Eosinophils % (Manual) Nucleated RBC % Seg Neutrophils # Seg Neutrophils # Man Abs Lymphs (Manual) Lymphocytes # (Manual) Monocytes # (Manual) Eosinophils # (Manual) Percent Retic PT INR D-Dimer POC ABG pH 7.242 L POC ABG pCO2 88.4 H POC ABG pO2 57 L Sodium Potassium Chloride Carbon Dioxide BUN Creatinine Glucose POC Glucose 212 H Lactic Acid Calcium Phosphorus Magnesium Ferritin Total Bilirubin Lactate Dehydrogenase Total Creatine Kinase CK-MB (CK-2) C-Reactive Protein 3.00 H NT-Pro-B Natriuret Pep Total Protein Albumin Triglycerides Urine WBC (Auto) Urine Creatinine Urine Total Protein Vancomycin Trough Random Vancomycin Absolute CD4 Count Absolute CD19 Count Crossmatch 10/12/16 10/12/16 10/12/16 05:49 06:03 06:57 WBC 37.0 H RBC Hgb Hct MCV MCH RDW 18.0 H Plt Count [place] # 2.0 H Baso # 0.2 H Seg Neutrophils % 86.7 H Seg Neuts % (Manual) 91.5 H Lymphocytes % (Manual) 6.0 L Monocytes % (Manual) Eosinophils % (Manual) Nucleated RBC % 15.5 H Seg Neutrophils # 30.6 H Seg Neutrophils # Man 33.9 H Abs Lymphs (Manual) Lymphocytes # (Manual) Monocytes # (Manual) Eosinophils # (Manual) Percent Retic PT INR D-Dimer POC ABG pH 7.289 L POC ABG pCO2 82.4 H POC ABG pO2 65 L Sodium Potassium Chloride Carbon Dioxide BUN Creatinine Glucose POC Glucose 230 H Lactic Acid Calcium Phosphorus Magnesium Ferritin Total Bilirubin Lactate Dehydrogenase Total Creatine Kinase CK-MB (CK-2) C-Reactive Protein NT-Pro-B Natriuret Pep Total Protein Albumin Triglycerides Urine WBC (Auto) Urine Creatinine Urine Total Protein Vancomycin Trough Random Vancomycin Absolute CD4 Count Absolute CD19 Count Crossmatch 10/12/16 10/12/16 10/12/16 06:57 11:59 17:00 WBC RBC Hgb Hct MCV MCH RDW Plt Count [place] # Baso # Seg Neutrophils % Seg Neuts % (Manual) Lymphocytes % (Manual) Monocytes % (Manual) Eosinophils % (Manual) Nucleated RBC % Seg Neutrophils # Seg Neutrophils # Man Abs Lymphs (Manual) Lymphocytes # (Manual) Monocytes # (Manual) Eosinophils # (Manual) Percent Retic PT INR D-Dimer POC ABG pH POC ABG pCO2 POC ABG pO2 Sodium 151 H D 130 L D Potassium Chloride Carbon Dioxide 32 H BUN 62 H Creatinine 1.6 H Glucose 231 H POC Glucose 222 H Lactic Acid Calcium Phosphorus 4.90 H Magnesium Ferritin Total Bilirubin Lactate Dehydrogenase Total Creatine Kinase CK-MB (CK-2) C-Reactive Protein NT-Pro-B Natriuret Pep Total Protein Albumin Triglycerides Urine WBC (Auto) Urine Creatinine Urine Total Protein Vancomycin Trough Random Vancomycin Absolute CD4 Count Absolute CD19 Count Crossmatch 10/12/16 10/12/16 10/12/16 17:41 22:04 23:25 WBC RBC Hgb Hct MCV MCH RDW Plt Count [place] # Baso # Seg Neutrophils % Seg Neuts % (Manual) Lymphocytes % (Manual) Monocytes % (Manual) Eosinophils % (Manual) Nucleated RBC % Seg Neutrophils # Seg Neutrophils # Man Abs Lymphs (Manual) Lymphocytes # (Manual) Monocytes # (Manual) Eosinophils # (Manual) Percent Retic PT INR D-Dimer POC ABG pH 7.264 L POC ABG pCO2 89.1 H POC ABG pO2 62 L Sodium Potassium Chloride Carbon Dioxide BUN Creatinine Glucose POC Glucose 223 H 160 H Lactic Acid Calcium Phosphorus Magnesium Ferritin Total Bilirubin Lactate Dehydrogenase Total Creatine Kinase CK-MB (CK-2) C-Reactive Protein NT-Pro-B Natriuret Pep Total Protein Albumin Triglycerides Urine WBC (Auto) Urine Creatinine Urine Total Protein Vancomycin Trough Random Vancomycin Absolute CD4 Count Absolute CD19 Count Crossmatch 10/13/16 10/13/16 10/13/16 05:30 06:00 06:00 WBC 25.9 H RBC Hgb Hct MCV MCH RDW 18.1 H Plt Count [place] # Baso # Seg Neutrophils % Seg Neuts % (Manual) 85.0 H Lymphocytes % (Manual) 9.0 L Monocytes % (Manual) Eosinophils % (Manual) Nucleated RBC % 6.0 H Seg Neutrophils # Seg Neutrophils # Man 22.0 H Abs Lymphs (Manual) Lymphocytes # (Manual) Monocytes # (Manual) 1.4 H Eosinophils # (Manual) Percent Retic PT INR D-Dimer POC ABG pH 7.281 L POC ABG pCO2 89.6 H POC ABG pO2 63 L Sodium 148 H D Potassium Chloride Carbon Dioxide 36 H BUN 58 H Creatinine 1.3 H Glucose 189 H POC Glucose Lactic Acid Calcium Phosphorus Magnesium Ferritin Total Bilirubin Lactate Dehydrogenase Total Creatine Kinase CK-MB (CK-2) C-Reactive Protein NT-Pro-B Natriuret Pep Total Protein Albumin Triglycerides Urine WBC (Auto) Urine Creatinine Urine Total Protein Vancomycin Trough Random Vancomycin Absolute CD4 Count Absolute CD19 Count Crossmatch 10/13/16 10/13/16 10/13/16 06:20 11:10 17:26 WBC RBC Hgb Hct MCV MCH RDW Plt Count [place] # Baso # Seg Neutrophils % Seg Neuts % (Manual) Lymphocytes % (Manual) Monocytes % (Manual) Eosinophils % (Manual) Nucleated RBC % Seg Neutrophils # Seg Neutrophils # Man Abs Lymphs (Manual) Lymphocytes # (Manual) Monocytes # (Manual) Eosinophils # (Manual) Percent Retic PT INR D-Dimer POC ABG pH POC ABG pCO2 POC ABG pO2 Sodium Potassium Chloride Carbon Dioxide BUN Creatinine Glucose POC Glucose 192 H 198 H 162 H Lactic Acid Calcium Phosphorus Magnesium Ferritin Total Bilirubin Lactate Dehydrogenase Total Creatine Kinase CK-MB (CK-2) C-Reactive Protein NT-Pro-B Natriuret Pep Total Protein Albumin Triglycerides Urine WBC (Auto) Urine Creatinine Urine Total Protein Vancomycin Trough Random Vancomycin Absolute CD4 Count Absolute CD19 Count Crossmatch 10/13/16 10/13/16 10/13/16 20:40 20:57 23:33 WBC RBC Hgb Hct MCV MCH RDW Plt Count [place] # Baso # Seg Neutrophils % Seg Neuts % (Manual) Lymphocytes % (Manual) Monocytes % (Manual) Eosinophils % (Manual) Nucleated RBC % Seg Neutrophils # Seg Neutrophils # Man Abs Lymphs (Manual) Lymphocytes # (Manual) Monocytes # (Manual) Eosinophils # (Manual) Percent Retic PT INR D-Dimer POC ABG pH 7.201 L 7.455 H POC ABG pCO2 111.2 H 54.2 H POC ABG pO2 45 L 57 L Sodium 148 H Potassium Chloride Carbon Dioxide BUN Creatinine Glucose POC Glucose Lactic Acid Calcium Phosphorus Magnesium Ferritin Total Bilirubin Lactate Dehydrogenase Total Creatine Kinase CK-MB (CK-2) C-Reactive Protein NT-Pro-B Natriuret Pep Total Protein Albumin Triglycerides Urine WBC (Auto) Urine Creatinine Urine Total Protein Vancomycin Trough Random Vancomycin Absolute CD4 Count Absolute CD19 Count Crossmatch 10/14/16 10/14/16 10/14/16 00:48 04:12 05:30 WBC 23.1 H RBC 3.49 L Hgb 9.9 L Hct MCV MCH RDW 16.9 H Plt Count [place] # Baso # Seg Neutrophils % Seg Neuts % (Manual) 82.0 H Lymphocytes % (Manual) 9.0 L Monocytes % (Manual) Eosinophils % (Manual) Nucleated RBC % 2.0 H Seg Neutrophils # Seg Neutrophils # Man 18.9 H Abs Lymphs (Manual) Lymphocytes # (Manual) Monocytes # (Manual) 1.4 H Eosinophils # (Manual) Percent Retic PT INR D-Dimer POC ABG pH 7.497 H POC ABG pCO2 49.4 H POC ABG pO2 60 L Sodium Potassium Chloride Carbon Dioxide BUN Creatinine Glucose POC Glucose 147 H Lactic Acid Calcium Phosphorus Magnesium Ferritin Total Bilirubin Lactate Dehydrogenase Total Creatine Kinase CK-MB (CK-2) C-Reactive Protein NT-Pro-B Natriuret Pep Total Protein Albumin Triglycerides Urine WBC (Auto) Urine Creatinine Urine Total Protein Vancomycin Trough Random Vancomycin Absolute CD4 Count Absolute CD19 Count Crossmatch 10/14/16 10/14/16 10/14/16 05:30 05:30 05:53 WBC RBC Hgb Hct MCV MCH RDW Plt Count [place] # Baso # Seg Neutrophils % Seg Neuts % (Manual) Lymphocytes % (Manual) Monocytes % (Manual) Eosinophils % (Manual) Nucleated RBC % Seg Neutrophils # Seg Neutrophils # Man Abs Lymphs (Manual) Lymphocytes # (Manual) Monocytes # (Manual) Eosinophils # (Manual) Percent Retic PT INR D-Dimer POC ABG pH POC ABG pCO2 POC ABG pO2 Sodium 146 H Potassium Chloride Carbon Dioxide 35 H BUN 56 H Creatinine 1.3 H Glucose 155 H POC Glucose 156 H Lactic Acid Calcium Phosphorus 1.90 L D Magnesium 2.90 H Ferritin Total Bilirubin Lactate Dehydrogenase Total Creatine Kinase CK-MB (CK-2) C-Reactive Protein NT-Pro-B Natriuret Pep Total Protein Albumin Triglycerides Urine WBC (Auto) Urine Creatinine Urine Total Protein Vancomycin Trough Random Vancomycin Absolute CD4 Count Absolute CD19 Count Crossmatch 10/14/16 10/14/16 10/14/16 12:05 14:34 17:33 WBC RBC Hgb Hct MCV MCH RDW Plt Count [place] # Baso # Seg Neutrophils % Seg Neuts % (Manual) Lymphocytes % (Manual) Monocytes % (Manual) Eosinophils % (Manual) Nucleated RBC % Seg Neutrophils # Seg Neutrophils # Man Abs Lymphs (Manual) Lymphocytes # (Manual) Monocytes # (Manual) Eosinophils # (Manual) Percent Retic PT INR D-Dimer POC ABG pH POC ABG pCO2 57.4 H POC ABG pO2 177 H Sodium Potassium Chloride Carbon Dioxide BUN Creatinine Glucose POC Glucose 145 H 172 H Lactic Acid Calcium Phosphorus Magnesium Ferritin Total Bilirubin Lactate Dehydrogenase Total Creatine Kinase CK-MB (CK-2) C-Reactive Protein NT-Pro-B Natriuret Pep Total Protein Albumin Triglycerides Urine WBC (Auto) Urine Creatinine Urine Total Protein Vancomycin Trough Random Vancomycin Absolute CD4 Count Absolute CD19 Count Crossmatch 10/14/16 10/14/16 10/15/16 21:57 23:31 05:10 WBC 23.9 H RBC 3.33 L Hgb 9.5 L Hct 29.7 L MCV MCH RDW 16.8 H Plt Count [place] # Baso # Seg Neutrophils % Seg Neuts % (Manual) Lymphocytes % (Manual) Monocytes % (Manual) Eosinophils % (Manual) Nucleated RBC % 4.0 H Seg Neutrophils # Seg Neutrophils # Man 15.3 H Abs Lymphs (Manual) Lymphocytes # (Manual) Monocytes # (Manual) 1.7 H Eosinophils # (Manual) 0.5 H Percent Retic PT INR D-Dimer POC ABG pH POC ABG pCO2 53.6 H POC ABG pO2 60 L Sodium Potassium Chloride Carbon Dioxide BUN Creatinine Glucose POC Glucose 201 H Lactic Acid Calcium Phosphorus Magnesium Ferritin Total Bilirubin Lactate Dehydrogenase Total Creatine Kinase CK-MB (CK-2) C-Reactive Protein NT-Pro-B Natriuret Pep Total Protein Albumin Triglycerides Urine WBC (Auto) Urine Creatinine Urine Total Protein Vancomycin Trough Random Vancomycin Absolute CD4 Count Absolute CD19 Count Crossmatch 10/15/16 10/15/16 10/15/16 05:10 05:10 05:40 WBC RBC Hgb Hct MCV MCH RDW Plt Count [place] # Baso # Seg Neutrophils % Seg Neuts % (Manual) Lymphocytes % (Manual) Monocytes % (Manual) Eosinophils % (Manual) Nucleated RBC % Seg Neutrophils # Seg Neutrophils # Man Abs Lymphs (Manual) Lymphocytes # (Manual) Monocytes # (Manual) Eosinophils # (Manual) Percent Retic PT INR D-Dimer POC ABG pH POC ABG pCO2 POC ABG pO2 Sodium Potassium 3.5 L Chloride Carbon Dioxide 33 H BUN 61 H Creatinine Glucose 127 H POC Glucose 145 H Lactic Acid Calcium 8.2 L Phosphorus 4.90 H D Magnesium 2.90 H Ferritin Total Bilirubin Lactate Dehydrogenase Total Creatine Kinase CK-MB (CK-2) C-Reactive Protein NT-Pro-B Natriuret Pep Total Protein Albumin Triglycerides Urine WBC (Auto) Urine Creatinine Urine Total Protein Vancomycin Trough Random Vancomycin Absolute CD4 Count Absolute CD19 Count Crossmatch 10/15/16 10/15/16 10/15/16 06:17 11:09 17:50 WBC RBC Hgb Hct MCV MCH RDW Plt Count [place] # Baso # Seg Neutrophils % Seg Neuts % (Manual) Lymphocytes % (Manual) Monocytes % (Manual) Eosinophils % (Manual) Nucleated RBC % Seg Neutrophils # Seg Neutrophils # Man Abs Lymphs (Manual) Lymphocytes # (Manual) Monocytes # (Manual) Eosinophils # (Manual) Percent Retic PT INR D-Dimer POC ABG pH POC ABG pCO2 65.2 H POC ABG pO2 Sodium Potassium Chloride Carbon Dioxide BUN Creatinine Glucose POC Glucose 169 H 210 H Lactic Acid Calcium Phosphorus Magnesium Ferritin Total Bilirubin Lactate Dehydrogenase Total Creatine Kinase CK-MB (CK-2) C-Reactive Protein NT-Pro-B Natriuret Pep Total Protein Albumin Triglycerides Urine WBC (Auto) Urine Creatinine Urine Total Protein Vancomycin Trough Random Vancomycin Absolute CD4 Count Absolute CD19 Count Crossmatch 10/15/16 10/16/16 10/16/16 23:39 05:51 06:07 WBC RBC Hgb Hct MCV MCH RDW Plt Count [place] # Baso # Seg Neutrophils % Seg Neuts % (Manual) Lymphocytes % (Manual) Monocytes % (Manual) Eosinophils % (Manual) Nucleated RBC % Seg Neutrophils # Seg Neutrophils # Man Abs Lymphs (Manual) Lymphocytes # (Manual) Monocytes # (Manual) Eosinophils # (Manual) Percent Retic PT INR D-Dimer POC ABG pH POC ABG pCO2 56.8 H POC ABG pO2 50 L Sodium Potassium Chloride Carbon Dioxide BUN Creatinine Glucose POC Glucose 291 H 216 H Lactic Acid Calcium Phosphorus Magnesium Ferritin Total Bilirubin Lactate Dehydrogenase Total Creatine Kinase CK-MB (CK-2) C-Reactive Protein NT-Pro-B Natriuret Pep Total Protein Albumin Triglycerides Urine WBC (Auto) Urine Creatinine Urine Total Protein Vancomycin Trough Random Vancomycin Absolute CD4 Count Absolute CD19 Count Crossmatch 10/16/16 10/16/16 10/16/16 11:52 15:00 15:00 WBC 22.2 H RBC 3.13 L Hgb 9.0 L Hct 28.1 L MCV MCH RDW 15.9 H Plt Count [place] # Baso # Seg Neutrophils % Seg Neuts % (Manual) 96.0 H Lymphocytes % (Manual) 3.0 L Monocytes % (Manual) Eosinophils % (Manual) Nucleated RBC % 1.0 H Seg Neutrophils # Seg Neutrophils # Man 21.3 H Abs Lymphs (Manual) Lymphocytes # (Manual) 0.7 L Monocytes # (Manual) Eosinophils # (Manual) Percent Retic PT INR D-Dimer POC ABG pH POC ABG pCO2 POC ABG pO2 Sodium 146 H Potassium Chloride Carbon Dioxide 32 H BUN 55 H Creatinine Glucose 234 H POC Glucose 237 H Lactic Acid Calcium Phosphorus Magnesium Ferritin Total Bilirubin Lactate Dehydrogenase Total Creatine Kinase CK-MB (CK-2) C-Reactive Protein NT-Pro-B Natriuret Pep Total Protein Albumin Triglycerides Urine WBC (Auto) Urine Creatinine Urine Total Protein Vancomycin Trough Random Vancomycin Absolute CD4 Count Absolute CD19 Count Crossmatch 10/16/16 10/17/16 10/17/16 17:28 00:03 03:56 WBC 21.4 H RBC 3.18 L Hgb 8.9 L Hct 28.0 L MCV MCH RDW 16.0 H Plt Count [place] # Baso # Seg Neutrophils % Seg Neuts % (Manual) 98.0 H Lymphocytes % (Manual) 2.0 L Monocytes % (Manual) Eosinophils % (Manual) Nucleated RBC % 1.0 H Seg Neutrophils # 20.2 H Seg Neutrophils # Man 21.0 H Abs Lymphs (Manual) Lymphocytes # (Manual) 0.4 L Monocytes # (Manual) Eosinophils # (Manual) Percent Retic PT INR D-Dimer POC ABG pH POC ABG pCO2 POC ABG pO2 Sodium Potassium Chloride Carbon Dioxide BUN Creatinine Glucose POC Glucose 258 H 192 H Lactic Acid Calcium Phosphorus Magnesium Ferritin Total Bilirubin Lactate Dehydrogenase Total Creatine Kinase CK-MB (CK-2) C-Reactive Protein NT-Pro-B Natriuret Pep Total Protein Albumin Triglycerides Urine WBC (Auto) Urine Creatinine Urine Total Protein Vancomycin Trough Random Vancomycin Absolute CD4 Count Absolute CD19 Count Crossmatch 10/17/16 10/17/16 10/17/16 05:00 06:56 12:27 WBC RBC Hgb Hct MCV MCH RDW Plt Count [place] # Baso # Seg Neutrophils % Seg Neuts % (Manual) Lymphocytes % (Manual) Monocytes % (Manual) Eosinophils % (Manual) Nucleated RBC % Seg Neutrophils # Seg Neutrophils # Man Abs Lymphs (Manual) Lymphocytes # (Manual) Monocytes # (Manual) Eosinophils # (Manual) Percent Retic PT INR D-Dimer POC ABG pH POC ABG pCO2 64.3 H POC ABG pO2 72 L Sodium 149 H Potassium Chloride Carbon Dioxide 34 H BUN 50 H Creatinine Glucose 203 H POC Glucose 252 H Lactic Acid Calcium Phosphorus Magnesium Ferritin Total Bilirubin Lactate Dehydrogenase Total Creatine Kinase CK-MB (CK-2) C-Reactive Protein NT-Pro-B Natriuret Pep Total Protein Albumin Triglycerides Urine WBC (Auto) Urine Creatinine Urine Total Protein Vancomycin Trough Random Vancomycin Absolute CD4 Count Absolute CD19 Count Crossmatch 10/17/16 10/17/16 10/18/16 18:09 23:35 04:45 WBC RBC Hgb Hct MCV MCH RDW Plt Count [place] # Baso # Seg Neutrophils % Seg Neuts % (Manual) Lymphocytes % (Manual) Monocytes % (Manual) Eosinophils % (Manual) Nucleated RBC % Seg Neutrophils # Seg Neutrophils # Man Abs Lymphs (Manual) Lymphocytes # (Manual) Monocytes # (Manual) Eosinophils # (Manual) Percent Retic PT INR D-Dimer POC ABG pH POC ABG pCO2 66.8 H POC ABG pO2 59 L Sodium Potassium Chloride Carbon Dioxide BUN Creatinine Glucose POC Glucose 275 H 201 H Lactic Acid Calcium Phosphorus Magnesium Ferritin Total Bilirubin Lactate Dehydrogenase Total Creatine Kinase CK-MB (CK-2) C-Reactive Protein NT-Pro-B Natriuret Pep Total Protein Albumin Triglycerides Urine WBC (Auto) Urine Creatinine Urine Total Protein Vancomycin Trough Random Vancomycin Absolute CD4 Count Absolute CD19 Count Crossmatch 10/18/16 10/18/16 10/18/16 05:11 05:11 05:33 WBC 24.0 H RBC 3.54 L Hgb 9.7 L Hct MCV MCH 27 L RDW 15.8 H Plt Count [place] # Baso # Seg Neutrophils % Seg Neuts % (Manual) 94.0 H Lymphocytes % (Manual) 5.0 L Monocytes % (Manual) Eosinophils % (Manual) Nucleated RBC % 2.0 H Seg Neutrophils # Seg Neutrophils # Man 22.6 H Abs Lymphs (Manual) Lymphocytes # (Manual) Monocytes # (Manual) Eosinophils # (Manual) Percent Retic PT INR D-Dimer POC ABG pH POC ABG pCO2 POC ABG pO2 Sodium Potassium Chloride Carbon Dioxide 35 H BUN 53 H Creatinine Glucose 236 H POC Glucose 232 H Lactic Acid Calcium Phosphorus Magnesium Ferritin Total Bilirubin Lactate Dehydrogenase Total Creatine Kinase CK-MB (CK-2) C-Reactive Protein NT-Pro-B Natriuret Pep Total Protein Albumin Triglycerides Urine WBC (Auto) Urine Creatinine Urine Total Protein Vancomycin Trough Random Vancomycin Absolute CD4 Count Absolute CD19 Count Crossmatch 10/18/16 10/18/16 10/18/16 12:22 17:18 23:41 WBC RBC Hgb Hct MCV MCH RDW Plt Count [place] # Baso # Seg Neutrophils % Seg Neuts % (Manual) Lymphocytes % (Manual) Monocytes % (Manual) Eosinophils % (Manual) Nucleated RBC % Seg Neutrophils # Seg Neutrophils # Man Abs Lymphs (Manual) Lymphocytes # (Manual) Monocytes # (Manual) Eosinophils # (Manual) Percent Retic PT INR D-Dimer POC ABG pH POC ABG pCO2 POC ABG pO2 Sodium Potassium Chloride Carbon Dioxide BUN Creatinine Glucose POC Glucose 237 H 300 H 254 H Lactic Acid Calcium Phosphorus Magnesium Ferritin Total Bilirubin Lactate Dehydrogenase Total Creatine Kinase CK-MB (CK-2) C-Reactive Protein NT-Pro-B Natriuret Pep Total Protein Albumin Triglycerides Urine WBC (Auto) Urine Creatinine Urine Total Protein Vancomycin Trough Random Vancomycin Absolute CD4 Count Absolute CD19 Count Crossmatch 10/19/16 10/19/16 10/19/16 03:45 04:32 05:46 WBC RBC Hgb Hct MCV MCH RDW Plt Count [place] # Baso # Seg Neutrophils % Seg Neuts % (Manual) Lymphocytes % (Manual) Monocytes % (Manual) Eosinophils % (Manual) Nucleated RBC % Seg Neutrophils # Seg Neutrophils # Man Abs Lymphs (Manual) Lymphocytes # (Manual) Monocytes # (Manual) Eosinophils # (Manual) Percent Retic PT INR D-Dimer POC ABG pH POC ABG pCO2 66.7 H POC ABG pO2 55 L Sodium Potassium Chloride Carbon Dioxide BUN Creatinine Glucose POC Glucose 273 H Lactic Acid Calcium Phosphorus Magnesium Ferritin Total Bilirubin Lactate Dehydrogenase Total Creatine Kinase CK-MB (CK-2) C-Reactive Protein NT-Pro-B Natriuret Pep Total Protein Albumin Triglycerides 287 H Urine WBC (Auto) Urine Creatinine Urine Total Protein Vancomycin Trough Random Vancomycin Absolute CD4 Count Absolute CD19 Count Crossmatch 10/19/16 10/19/16 10/19/16 10:18 10:18 12:07 WBC 23.0 H RBC 3.36 L Hgb 9.4 L Hct 29.7 L MCV MCH RDW 15.5 H Plt Count [place] # Baso # Seg Neutrophils % Seg Neuts % (Manual) Lymphocytes % (Manual) Monocytes % (Manual) Eosinophils % (Manual) Nucleated RBC % Seg Neutrophils # Seg Neutrophils # Man Abs Lymphs (Manual) Lymphocytes # (Manual) Monocytes # (Manual) Eosinophils # (Manual) Percent Retic PT INR D-Dimer POC ABG pH POC ABG pCO2 POC ABG pO2 Sodium Potassium Chloride 93.9 L Carbon Dioxide 35 H BUN 48 H Creatinine Glucose 385 H POC Glucose 226 H Lactic Acid Calcium Phosphorus Magnesium Ferritin Total Bilirubin Lactate Dehydrogenase Total Creatine Kinase CK-MB (CK-2) C-Reactive Protein NT-Pro-B Natriuret Pep Total Protein Albumin Triglycerides Urine WBC (Auto) Urine Creatinine Urine Total Protein Vancomycin Trough Random Vancomycin Absolute CD4 Count Absolute CD19 Count Crossmatch 10/19/16 10/19/16 10/20/16 17:44 23:42 04:40 WBC RBC Hgb Hct MCV MCH RDW Plt Count [place] # Baso # Seg Neutrophils % Seg Neuts % (Manual) Lymphocytes % (Manual) Monocytes % (Manual) Eosinophils % (Manual) Nucleated RBC % Seg Neutrophils # Seg Neutrophils # Man Abs Lymphs (Manual) Lymphocytes # (Manual) Monocytes # (Manual) Eosinophils # (Manual) Percent Retic PT INR D-Dimer POC ABG pH 7.466 H POC ABG pCO2 54.0 H POC ABG pO2 78 L Sodium Potassium Chloride Carbon Dioxide BUN Creatinine Glucose POC Glucose 268 H 283 H Lactic Acid Calcium Phosphorus Magnesium Ferritin Total Bilirubin Lactate Dehydrogenase Total Creatine Kinase CK-MB (CK-2) C-Reactive Protein NT-Pro-B Natriuret Pep Total Protein Albumin Triglycerides Urine WBC (Auto) Urine Creatinine Urine Total Protein Vancomycin Trough Random Vancomycin Absolute CD4 Count Absolute CD19 Count Crossmatch 10/20/16 10/20/16 10/20/16 05:34 12:04 Unknown WBC 21.1 H RBC 3.62 L Hgb Hct MCV MCH RDW 15.3 H Plt Count [place] # Baso # Seg Neutrophils % Seg Neuts % (Manual) Lymphocytes % (Manual) Monocytes % (Manual) Eosinophils % (Manual) Nucleated RBC % Seg Neutrophils # Seg Neutrophils # Man Abs Lymphs (Manual) Lymphocytes # (Manual) Monocytes # (Manual) Eosinophils # (Manual) Percent Retic PT INR D-Dimer POC ABG pH POC ABG pCO2 POC ABG pO2 Sodium Potassium Chloride Carbon Dioxide BUN Creatinine Glucose POC Glucose 257 H 247 H Lactic Acid Calcium Phosphorus Magnesium Ferritin Total Bilirubin Lactate Dehydrogenase Total Creatine Kinase CK-MB (CK-2) C-Reactive Protein NT-Pro-B Natriuret Pep Total Protein Albumin Triglycerides Urine WBC (Auto) Urine Creatinine Urine Total Protein Vancomycin Trough Random Vancomycin Absolute CD4 Count Absolute CD19 Count Crossmatch 10/20/16 Unknown WBC RBC Hgb Hct MCV MCH RDW Plt Count [place] # Baso # Seg Neutrophils % Seg Neuts % (Manual) Lymphocytes % (Manual) Monocytes % (Manual) Eosinophils % (Manual) Nucleated RBC % Seg Neutrophils # Seg Neutrophils # Man Abs Lymphs (Manual) Lymphocytes # (Manual) Monocytes # (Manual) Eosinophils # (Manual) Percent Retic PT INR D-Dimer POC ABG pH POC ABG pCO2 POC ABG pO2 Sodium Potassium Chloride Carbon Dioxide 34 H BUN 50 H Creatinine 0.6 L Glucose 254 H POC Glucose Lactic Acid Calcium Phosphorus Magnesium Ferritin Total Bilirubin Lactate Dehydrogenase Total Creatine Kinase CK-MB (CK-2) C-Reactive Protein NT-Pro-B Natriuret Pep Total Protein Albumin Triglycerides Urine WBC (Auto) Urine Creatinine Urine Total Protein Vancomycin Trough Random Vancomycin Absolute CD4 Count Absolute CD19 Count Crossmatch Chest x-ray: image reviewed Allied health notes reviewed: RT
[2016-10-20] MEDS: DIPRIVAN 10 MG/ML 1,000 MG/100 ML BOTTLE IV SCH (20:56)
[2016-10-20 21:39] LABS: ISTAT Base Excess 15; ISTAT HCO3 39.3; ISTAT PCO2 59.2 (35-45); ISTAT PO2 57 (80-105); ISTAT SO2 89; ISTAT TCO2 41
--- NOTE | 2016-10-20 22:19 | Consultation ---
History of Present Illness - Reason for Consult Consult date: 10/20/16 - History of Present Illness Patient seen/examined, labs reviewed. Family have not been coming lately.She continues to improve each day.Dr COLE will cover me for the week. Past History Past Medical History: anemia (sickle cell anemia) Social history: no significant social history Family history: no significant family history Medications and Allergies Allergies Allergy/AdvReac Type Severity Reaction Status Date / Time No Known Allergies Allergy Unverified 10/13/13 13:21 Home Medications Medication Instructions Recorded Confirmed Last Taken Type Folic Acid [Folvite] 1 mg PO QDAY 10/13/13 09/18/16 09/18/16 History oxyCODONE /ACETAMINOPHEN [Percocet 1 tab PO Q6HR PRN #10 tablet 10/13/1309/18/16 Rx 5/325 mg] Promethazine [Phenergan] 25 mg PO Q6H PRN 08/16/14 09/18/16 09/18/16 History valACYclovir [Valtrex] 500 mg PO DAILY 08/16/14 09/18/16 09/18/16 History Active Meds: Active Medications Acetaminophen (Tylenol) 650 mg PO Q4H PRN PRN Reason: Pain MILD(1-3)/Fever >100.5/PALACIOS Last Admin: 10/07/16 18:13 Dose: 650 mg Albuterol/Ipratropium (Duoneb 0.5 Mg-3 Mg/3 Ml Soln) 1 ampul IH Q6HRT [facility] Last Admin: 10/20/16 20:26 Dose: Not Given Lipase/Protease/Amylase (Pancrejacinto Mayers 10,500 Unit) 1 each FEEDTUBE PRN PRN PRN Reason: For Clogged Feeding Tube Arformoterol Tartrate (Brovana Nebu) 15 mcg IH Q12HRT [facility] Last Admin: 10/20/16 20:25 Dose: 15 mcg Aspirin (Aspirin) 325 mg PO QDAY [facility] Last Admin: 10/20/16 09:30 Dose: 325 mg Budesonide (Pulmicort) 0.5 mg IH Q12HRT [facility] Last Admin: 10/20/16 20:25 Dose: 0.5 mg Diphenhydramine HCl (Benadryl) 12.5 mg IV Q4H PRN PRN Reason: Itching Last Admin: 09/30/16 07:02 Dose: 12.5 mg Enoxaparin Sodium (Lovenox) 40 mg SUB-Q QDAY [facility] Last Admin: 10/20/16 09:30 Dose: 40 mg Famotidine (Pepcid) 20 mg PO BID [facility] Last Admin: 10/20/16 21:06 Dose: 20 mg Folic Acid (Folvite) 1 mg PO QDAY [facility] Last Admin: 10/20/16 09:30 Dose: 1 mg Hydrophilic Ointment (Vaseline Lip Therapy) 1 applic TP Q2HR PRN PRN Reason: Dry Lips Fentanyl Citrate (Fentanyl Drip Premix) 2,000 mcg in 100 mls @ 4.649 mls/hr IV TITR [facility]; 1 MCG/KG/HR PRN Reason: Protocol Last Admin: 10/20/16 06:45 Dose: 2 mcg/kg/hr, 9.299 mls/hr Midazolam HCl 100 mg/ Sodium (Chloride) 100 mls @ 2 mls/hr IV TITR [facility]; 2 MG/HR PRN Reason: Protocol Last Admin: 10/04/16 12:54 Dose: 2 mg/hr, 2 mls/hr Dextrose (D5w) 1,000 mls @ 50 mls/hr IV DIRECT [facility] Last Admin: 10/18/16 17:36 Dose: 50 mls/hr Propofol (Diprivan 10 Mg/Ml) 1,000 mg in 100 mls @ 3.045 mls/hr IV TITR [facility]; 5 MCG/KG/MIN PRN Reason: Protocol Last Admin: 10/20/16 20:56 Dose: 5 mcg/kg/min, 3.045 mls/hr Sodium Chloride (Nacl 0.45% 1000 Ml) 1,000 mls @ 75 mls/hr IV DIRECT [facility] Last Admin: 10/20/16 13:00 Dose: 75 mls/hr Insulin Detemir (Levemir) 20 units SUB-Q DAILY [facility] Last Admin: 10/20/16 09:30 Dose: 20 units Insulin Human Regular (Novolin R) 0 units SUB-Q Q6HR [facility] PRN Reason: Protocol Last Admin: 10/20/16 18:55 Dose: 2 units Linezolid (Zyvox) 600 mg PO Q12HR [facility] PRN Reason: Protocol Last Admin: 10/20/16 21:06 Dose: 600 mg Methylprednisolone Sodium Succinate (Solu-Medrol) 125 mg IV Q6H [facility] Last Admin: 10/20/16 20:57 Dose: 125 mg Multi-Ingred Cream/Lotion/Oil/Oint (Artificial Tears Ophth Oint) 1 applic OU Q4HR PRN PRN Reason: Dry Eye(s) Multivitamins (Theragran Tab) 1 each PO QDAY [facility] Last Admin: 10/20/16 09:30 Dose: 1 each Ondansetron HCl (Zofran) 4 mg IV Q8H PRN PRN Reason: Nausea And Vomiting Last Admin: 09/29/16 23:07 Dose: 4 mg Promethazine HCl (Phenergan) 25 mg NE Q6H PRN PRN Reason: Nausea And Vomiting Last Admin: 09/25/16 22:05 Dose: 25 mg Senna (Senokot) 17.2 mg PO DAILY [facility] Last Admin: 10/20/16 09:30 Dose: 17.2 mg Simple Syrup (Simple Syrup) 15 ml FEEDTUBE PRN PRN PRN Reason: Hypoglycemia Simple Syrup (Simple Syrup) 30 ml FEEDTUBE PRN PRN PRN Reason: Hypoglycemia Sodium Bicarbonate (Sodium Bicarbonate) 325 mg FEEDTUBE PRN PRN PRN Reason: For Clogged Feeding Tube Sodium Chloride (Sodium Chloride Flush Syringe 10 Ml) 10 ml IV PRN PRN PRN Reason: LINE FLUSH Tramadol HCl (Ultram) 50 mg PO Q4H PRN PRN Reason: Pain, Moderate (4-6) Last Admin: 10/06/16 21:54 Dose: 50 mg Valacyclovir HCl (Valtrex) 500 mg PO DAILY [facility] Last Admin: 10/20/16 09:30 Dose: 500 mg Zolpidem Tartrate (Ambien) 5 mg PO QHS PRN PRN Reason: Sleep Review of Systems Breasts: deferred Exam - Constitutional Vitals: Temp Pulse Resp BP Pulse Ox 98.5 F 101 H 26 H 125/83 91 10/20/16 16:00 10/20/16 21:30 10/20/16 20:39 10/20/16 21:30 10/20/16 21:30 General appearance: Present: mild distress, well-nourished - EENT Eyes: Present: PERRL ENT: hearing intact, clear oral mucosa - Neck Neck: Present: supple, normal ROM - Respiratory Respiratory: bilateral: other (still on the vent.) - Cardiovascular Heart Sounds: Present: S1 & S2. Absent: rub, click - Extremities Extremities: pulses symmetrical, No edema Peripheral Pulses: within normal limits - Abdominal General gastrointestinal: Present: deferred, soft, non-tender, normal bowel sounds Female genitourinary: Present: deferred - Rectal Rectal Exam: deferred - Integumentary Integumentary: Present: clear, warm, dry - Psychiatric Psychiatric: appropriate mood/affect - Neurologic Neurologic: moves all extremities Results - Labs CBC & Chem 7: 10/20/16 Unknown 10/20/16 Unknown Labs: Abnormal lab results 10/19/16 10/20/16 10/20/16 Range/Units 23:42 04:40 05:34 WBC (4.5-11.0) K/mm3 RBC (3.65-5.03) M/mm3 RDW (13.2-15.2) % POC ABG pH 7.466 H (7.35-7.45) POC ABG pCO2 54.0 H (35-45) POC ABG pO2 78 L (80-105) Carbon Dioxide (22-30) mmol/L BUN (7-17) mg/dL Creatinine (0.7-1.2) mg/dL Glucose (65-100) mg/dL POC Glucose 283 H 257 H (70-105) 10/20/16 10/20/16 10/20/16 Range/Units 12:04 18:31 21:30 WBC (4.5-11.0) K/mm3 RBC (3.65-5.03) M/mm3 RDW (13.2-15.2) % POC ABG pH (7.35-7.45) POC ABG pCO2 59.2 H (35-45) POC ABG pO2 57 L (80-105) Carbon Dioxide (22-30) mmol/L BUN (7-17) mg/dL Creatinine (0.7-1.2) mg/dL Glucose (65-100) mg/dL POC Glucose 247 H 240 H (70-105) 10/20/16 10/20/16 Range/Units Unknown Unknown WBC 21.1 H (4.5-11.0) K/mm3 RBC 3.62 L (3.65-5.03) M/mm3 RDW 15.3 H (13.2-15.2) % POC ABG pH (7.35-7.45) POC ABG pCO2 (35-45) POC ABG pO2 (80-105) Carbon Dioxide 34 H (22-30) mmol/L BUN 50 H (7-17) mg/dL Creatinine 0.6 L (0.7-1.2) mg/dL Glucose 254 H (65-100) mg/dL POC Glucose (70-105) Assessment and Plan - Patient Problems (1) Sepsis Current Visit: Yes Status: Acute Qualifiers: Sepsis type: sepsis due to unspecified organism Qualified Code(s): A41.9 - Sepsis, unspecified organism Plan to address problem: SEE w/up in the notes. No improvement so far. worsening sepsis. Slight improvement (2) Sleep apnea syndrome Current Visit: Yes Status: Acute Qualifiers: Sleep apnea type: S Plan to address problem: oxygen/BIPAP management. Patient now in full resp failure, and on the vent. (3) UTI (urinary tract infection) Current Visit: Yes Status: Acute Qualifiers: Urinary tract infection type: U Hematuria presence: H Indwelling urinary catheter type: I Encounter type: E Plan to address problem: patient already on abx iv. may need culture sent. culture no growth. (4) Anemia Current Visit: Yes Status: Acute Qualifiers: Anemia type: A Iron deficiency anemia type: I Vitamin B12 deficiency anemia type: V Folate deficiency anemia type: F Bone marrow failure anemia type: B Hemolytic anemia type: H Other causes of anemia: O Plan to address problem: will transfuse if hgb 7.5 or less. no new issues at this time. May transfuse if further drop. (5) Leukocytosis Current Visit: Yes Status: Acute Qualifiers: Leukocytosis type: L Plan to address problem: will order flow, and try leukophoresis. instead, exchange transfusion is done today. improving. improving.
[2016-10-21] MEDS: DUONEB 0.5 MG-3 MG/3 ML SOLN IH SCH ×4 (02:29→20:27)
[2016-10-21] MEDS: fentaNYL DRIP Premix 2,000 MCG/100 ML BAG IV SCH ×3 (03:30→22:36)
[2016-10-21 05:06] LABS: ISTAT Base Excess 14; ISTAT HCO3 38.3; ISTAT PCO2 57.7 (35-45); ISTAT PH 7.431 (7.35-7.45); ISTAT PO2 70 (80-105); ISTAT SO2 94; ISTAT TCO2 40
[2016-10-21] MEDS: NACL 0.45% 1000 ML 1,000 ML IV SCH (06:36)
--- NOTE | 2016-10-21 07:34 | Progress Note ---
Assessment and Plan Assessment and plan: The patient is a 41-year-old female with a history of sickle cell disease who was admitted for total hip arthroplasty for avascular necrosis of the left hip. She had left total hip arthroplasty on 09/25/2016 and developed acute hypoxemic respiratory failure following the POD 2 likely from ARDS and ultimately required intubation on 09/27/2016. Her hemoglobin level dropped from 8.1-6.9 on 09/30/2016, also noted to have hypokalemia with potassium level 3.1. Hospitalist service consulted for medical management. Patient remained intubated with mechanical ventilation. Her white count continued to trend up. Maintained on sepsis protocol, CT scan of abdomen and pelvis and thorax done without contrast to identify the source for infection. CT scan of the chest was suggestive for possible pneumonia. She is currently on broad-spectrum antibiotics, critically ill with poor prognosis. Acute respiratory failure with hypoxia. -has required mechanical ventilation for more than 96hrs -, intubated on 09/27/16 -Bronch on 10/15/16 showed alveolar hemorrhage and trachial aspirate growing MRSA , VRSA- MDR organism, started on zyvox and high dose steroids - on mechanical ventilation, still hoping to wean off vent -consider tracheostomy for long-term weaning when patient is more stable - pulmonary following, cont nebulizer, vent support, has completed antibiotics - wean off as tolerated -Pulmonary input appreciated, goal is to get PEEP below 10 and transfer to LTACH for weaning Gram Positive sepsis - Due to pneumonia - Spiking temp intermittently. Last fever 4 days ago. Wbc count still elevated. - continue Zyvox - ID Physician following Pneumomediastinum and subcutaneous emphysema in the neck seen on chest x-ray yesterday. Pulmonology following. MRSA pneumonia-trachial aspirate growing MRSA, VRSA- MDR organism Diffuse alveolar hemorrhage: On high dose steroids Severe anemia - History of thalassemia major - has received multiple prbc transfusion, and received exchange transfusion on 10/10/16 Transfuse to keep Hg above 7.5 - hematology following - Hemoglobin 10.1 Avascular necrosis of the left hip - s/p total left hip arthroplasty on 09/25/16 Hypokalemia -resolved, after replacement. Hypernatremia -Continue free water via gastric tube, resolved, Hypophosphatemia, now resolved Acute kidney injury - likely from sepsis syndrome and ATN, now resolving, Creatinine 0.6 - monitor renal function - nephrology following, renal function impro Leukocytosis WBC still elevated, improving, hematology input appreciated, flow cytometry has been ordered by the tractor distributor DVT prophylaxis with Lovenox FULL CODE STATUS Disposition: Plan is for LTAC placement. Not ready for LTAC transfer yet. She had pneumomediastinum and subcutanous emphesema of neck yesterday. Discussed with chief diversity officer NOK: Son: Jordan Love [phone] Son: Gino love: [phone] Daughter: Varun Love [phone] History Interval history: Still intubated, more responsive, had pneumomediastinum yesterday Hospitalist Physical - Physical exam Narrative exam: Appearance:Morbidly obese, not in distress HEENT: Normocephalic, atraumatic, orally intubated Neck : intubated, no JVD Lungs: Clear to auscultation bilaterally, no crackles or wheeze Heart : S1 and S2 regular, no murmurs, rubs or gallop Abdomen: soft, nontender, nondistended, normal bowel sounds Extremities:No edema, no clubbing or cyanosis Neuro: Awake,alert, follows commands, moves all ext - Constitutional Vitals: Temp Pulse Resp BP Pulse Ox 98.7 F 91 H 25 H 132/89 97 10/21/16 04:00 10/21/16 06:30 10/21/16 06:30 10/21/16 06:30 10/21/16 06:30 General appearance: Present: mild distress, well-nourished Results - Labs CBC & Chem 7: 10/20/16 Unknown 10/20/16 Unknown Labs: Laboratory Last Values WBC 21.1 K/mm3 (4.5-11.0) H 10/20/16 Unknown RBC 3.62 M/mm3 (3.65-5.03) L 10/20/16 Unknown Hgb 10.1 gm/dl (10.1-14.3) 10/20/16 Unknown Hct 31.4 % (30.3-42.9) 10/20/16 Unknown MCV 87 fl (79-97) 10/20/16 Unknown MCH 28 pg (28-32) 10/20/16 Unknown MCHC 32 % (30-34) 10/20/16 Unknown RDW 15.3 % (13.2-15.2) H 10/20/16 Unknown Plt Count 402 K/mm3 (140-440) 10/20/16 Unknown Lymph % (Auto) 33.3 % (13.4-35.0) 09/20/16 10:35 [place] % (Auto) 1.5 % (0.0-7.3) 10/17/16 03:56 Eos % (Auto) 0.0 % (0.0-4.3) 10/17/16 03:56 Baso % (Auto) 0.7 % (0.0-1.8) 09/20/16 10:35 Lymph # Senior [employer]er 10/11/16 12:54 [place] # 0.3 K/mm3 (0.0-0.8) 10/17/16 03:56 Eos # 0.0 K/mm3 (0.0-0.4) 10/17/16 03:56 Baso # 0.0 K/mm3 (0.0-0.1) 10/17/16 03:56 Add Manual Diff Complete 10/18/16 05:11 Total Counted 100 10/18/16 05:11 Seg Neutrophils % Senior [employer] Buyer 10/18/16 05:11 Seg Neuts % (Manual) 94.0 % (40.0-70.0) H 10/18/16 05:11 Band Neutrophils % 0 % 10/18/16 05:11 Lymphocytes % (Manual) 5.0 % (13.4-35.0) L 10/18/16 05:11 Reactive Lymphs % (Man) 0 % 10/18/16 05:11 Monocytes % (Manual) 1.0 % (0.0-7.3) 10/18/16 05:11 Eosinophils % (Manual) 0 % (0.0-4.3) 10/18/16 05:11 Basophils % (Manual) 0 % (0.0-1.8) 10/18/16 05:11 Metamyelocytes % 0 % 10/18/16 05:11 Myelocytes % 0 % 10/18/16 05:11 Promyelocytes % 0 % 10/18/16 05:11 Blast Cells % 0 % 10/18/16 05:11 Nucleated RBC % 2.0 % (0.0-0.9) H 10/18/16 05:11 Seg Neutrophils # 20.2 K/mm3 (1.8-7.7) H 10/17/16 03:56 Seg Neutrophils # Man 22.6 K/mm3 (1.8-7.7) H 10/18/16 05:11 Band Neutrophils # 0.0 K/mm3 10/18/16 05:11 Abs Lymphs (Manual) 3936 cells/uL (850-3900) H 10/10/16 13:03 Lymphocytes # (Manual) 1.2 K/mm3 (1.2-5.4) 10/18/16 05:11 Abs React Lymphs (Man) 0.0 K/mm3 10/18/16 05:11 Monocytes # (Manual) 0.2 K/mm3 (0.0-0.8) 10/18/16 05:11 Eosinophils # (Manual) 0.0 K/mm3 (0.0-0.4) 10/18/16 05:11 Basophils # (Manual) 0.0 K/mm3 (0.0-0.1) 10/18/16 05:11 Metamyelocytes # 0.0 K/mm3 10/18/16 05:11 Myelocytes # 0.0 K/mm3 10/18/16 05:11 Promyelocytes # 0.0 K/mm3 10/18/16 05:11 Blast Cells # 0.0 K/mm3 10/18/16 05:11 Pathologist Review 10/10/16 06:00 WBC Morphology Not Reportable 10/18/16 05:11 Hypersegmented Neuts Not Reportable 10/18/16 05:11 Hyposegmented Neuts Not Reportable 10/18/16 05:11 Hypogranular Neuts Not Reportable 10/18/16 05:11 Smudge Cells Not Reportable 10/18/16 05:11 Toxic Granulation Not Reportable 10/18/16 05:11 Toxic Vacuolation Not Reportable 10/18/16 05:11 Dohle Bodies Not Reportable 10/18/16 05:11 Pelger-Huet Anomaly Not Reportable 10/18/16 05:11 Jaspreet Rods Not Reportable 10/18/16 05:11 Platelet Estimate Consistent w auto 10/18/16 05:11 Clumped Platelets Not Reportable 10/18/16 05:11 Plt Clumps, EDTA Not Reportable 10/18/16 05:11 Large Platelets Not Reportable 10/18/16 05:11 Giant Platelets Not Reportable 10/18/16 05:11 Platelet Satelliting Not Reportable 10/18/16 05:11 Plt Morphology Comment Not Reportable 10/18/16 05:11 RBC Morphology Not Reportable 10/18/16 05:11 Dimorphic RBCs Not Reportable 10/18/16 05:11 Polychromasia 1+ 10/18/16 05:11 Hypochromasia 1+ 10/18/16 05:11 Poikilocytosis Not Reportable 10/18/16 05:11 Basophilic Stippling 1+ 10/17/16 03:56 Anisocytosis Not Reportable 10/18/16 05:11 Microcytosis Not Reportable 10/18/16 05:11 Macrocytosis Not Reportable 10/18/16 05:11 Spherocytes Not Reportable 10/18/16 05:11 Pappenheimer Bodies Not Reportable 10/18/16 05:11 Sickle Cells Not Reportable 10/18/16 05:11 Target Cells Few 10/18/16 05:11 Tear Drop Cells Not Reportable 10/18/16 05:11 Ovalocytes Not Reportable 10/18/16 05:11 Stomatocytes Few 10/18/16 05:11 Helmet Cells Not Reportable 10/18/16 05:11 [place] Bodies Not Reportable 10/18/16 05:11 [place] Rings Not Reportable 10/18/16 05:11 [place] Cells Not Reportable 10/18/16 05:11 Bite Cells Not Reportable 10/18/16 05:11 Crenated Cell Not Reportable 10/18/16 05:11 Elliptocytes Not Reportable 10/18/16 05:11 Acanthocytes (Spur) Not Reportable 10/18/16 05:11 Rouleaux Not Reportable 10/18/16 05:11 Hemoglobin C Crystals Not Reportable 10/18/16 05:11 Schistocytes Not Reportable 10/18/16 05:11 Malaria parasites Not Reportable 10/18/16 05:11 Percent Retic 8.11 % (0.78-2.58) H 09/27/16 22:47 [place] Bodies Not Reportable 10/18/16 05:11 Hem Pathologist Commnt No 10/18/16 05:11 PT 17.6 Sec. (12.2-14.9) H 10/10/16 13:03 INR 1.45 (0.87-1.13) H 10/10/16 13:03 APTT 31.1 Sec. (24.2-36.6) 09/20/16 10:35 D-Dimer 4758.12 ng/mlDDU (0-234) H 09/27/16 22:47 POC ABG pH 7.431 (7.35-7.45) 10/21/16 04:57 POC ABG pCO2 57.7 (35-45) H 10/21/16 04:57 POC ABG pO2 70 (80-105) L 10/21/16 04:57 POC ABG HCO3 38.3 10/21/16 04:57 POC ABG Total CO2 40 10/21/16 04:57 POC ABG O2 Sat 94 10/21/16 04:57 POC ABG Base Excess 14 10/21/16 04:57 FiO2 50 % 10/21/16 04:57 Sodium 143 mmol/L (137-145) 10/20/16 Unknown Potassium 4.9 mmol/L (3.6-5.0) 10/20/16 Unknown Chloride 98.2 mmol/L (98-107) 10/20/16 Unknown Carbon Dioxide 34 mmol/L (22-30) H 10/20/16 Unknown Anion Gap 16 mmol/L 10/20/16 Unknown BUN 50 mg/dL (7-17) H 10/20/16 Unknown Creatinine 0.6 mg/dL (0.7-1.2) L 10/20/16 Unknown Estimated GFR > 60 ml/min 10/20/16 Unknown BUN/Creatinine Ratio 83.33 % 10/20/16 Unknown Glucose 254 mg/dL (65-100) H 10/20/16 Unknown POC Glucose 246 (70-105) H 10/21/16 05:35 Osmolality 311 Mosm/kg 10/04/16 04:03 Lactic Acid 1.00 mmol/L (0.7-2.0) 10/14/16 00:30 Calcium 9.1 mg/dL (8.4-10.2) 10/20/16 Unknown Phosphorus 3.20 mg/dL (2.5-4.5) 10/17/16 05:00 Magnesium 2.90 mg/dL (1.7-2.3) H 10/15/16 05:10 Ferritin 782.0 ng/mL (13.0-400.0) H 10/10/16 06:00 Total Bilirubin 1.20 mg/dL (0.1-1.2) 10/04/16 04:03 AST 31 units/L (5-40) 10/04/16 04:03 ALT 33 units/L (7-56) 10/04/16 04:03 Alkaline Phosphatase 100 units/L (35-129) 10/04/16 04:03 Lactate Dehydrogenase 829 units/L (91-180) H 09/27/16 22:47 Total Creatine Kinase 3575 units/L (30-135) H 09/27/16 14:40 CK-MB (CK-2) 11.0 ng/mL (0.0-4.0) H 09/27/16 14:40 CK-MB (CK-2) Rel Index 0.3 (0-4) 09/27/16 14:40 Troponin T < 0.010 ng/mL (0.00-0.029) 09/27/16 14:40 C-Reactive Protein 1.00 mg/dL (0.00-1.30) 10/14/16 00:30 NT-Pro-B Natriuret Pep 2018 pg/mL (0-450) H 09/30/16 14:05 Total Protein 5.6 g/dL (6.3-8.2) L 10/04/16 04:03 Albumin 2.1 g/dL (3.9-5) L 10/04/16 04:03 Albumin/Globulin Ratio 0.6 % 10/04/16 04:03 Triglycerides 287 mg/dL (2-149) H 10/19/16 03:45 Urine Color Yellow (Yellow) 10/03/16 15:54 Urine Turbidity Cloudy (Clear) 10/03/16 15:54 Urine pH 5.0 (5.0-7.0) 10/03/16 15:54 Ur Specific [place] 1.013 (1.003-1.030) 10/03/16 15:54 Urine Protein 30 mg/dl mg/dL (Negative) 10/03/16 15:54 Urine Glucose (UA) Neg mg/dL (Negative) 10/03/16 15:54 Urine Ketones Neg mg/dL (Negative) 10/03/16 15:54 Urine Blood Lg (Negative) 10/03/16 15:54 Urine Nitrite Neg (Negative) 10/03/16 15:54 Urine Bilirubin Neg (Negative) 10/03/16 15:54 Urine Urobilinogen < 2.0 mg/dL (<2.0) 10/03/16 15:54 Ur Leukocyte Esterase Tr (Negative) 10/03/16 15:54 Urine WBC (Auto) 21.0 /HPF (0.0-6.0) H 10/03/16 15:54 Urine RBC (Auto) 65.0 /HPF (0.0-6.0) 10/03/16 15:54 U Epithel Cells (Auto) 2.0 /HPF (0-13.0) 10/03/16 15:54 Urine Bacteria (Auto) 3+ /HPF (Negative) 10/03/16 15:54 Amorphous Crystals 1+ 10/03/16 15:54 Urine Mucus Few /HPF 10/03/16 15:54 Urine Creatinine 63.2 mg/dL (0.1-20.0) H 10/03/16 15:54 Urine Sodium 20 mEq/L 10/03/16 15:54 Urine Total Protein 67 mg/dL (5-11.8) H 10/03/16 15:54 Vancomycin Trough 45.5 ug/mL (5.0-20.0) H 10/04/16 12:39 Random Vancomycin 14.9 ug/mL (0-40.0) 10/07/16 05:25 CHELY Screen Negative (Negative) 10/15/16 16:00 Lymph Enumerat CD4/CD8 2.87 (0.86-5.00) 10/10/16 13:03 % CD3 Cells 73 % (57-85) 10/10/16 13:03 Absolute CD3 Count 2879 cells/uL (840-3060) 10/10/16 13:03 % CD4 Cells 55 % (30-61) 10/10/16 13:03 Absolute CD4 Count 2178 cells/uL (490-1740) H 10/10/16 13:03 % CD8 Cells 19 % (12-42) 10/10/16 13:03 Absolute CD8 Count 759 cells/uL (180-1170) 10/10/16 13:03 % CD19 Cells 21 % (6-29) 10/10/16 13:03 Absolute CD19 Count 824 cells/uL (110-660) H 10/10/16 13:03 Flow Intrp 16+ Markers Scanned into [facility] 10/08/16 04:00 Flow Cytometry Interp Scanned into [facility] 10/08/16 04:00 Blood Type O POSITIVE 10/09/16 10:00 Antibody Screen TNR 10/01/16 00:55 DEACON Antibody Screen Negative 10/09/16 10:00 Crossmatch See Detail 10/09/16 10:00
--- NOTE | 2016-10-21 08:48 | XRay Report ---
Single view chest: Compared to 10/20/16. History: Followup of respiratory failure. Findings: Bilateral airspace opacities without significant interval change. Stable support system. Impression: No significant interval change.
--- NOTE | 2016-10-21 08:58 | Discharge Summary ---
Providers - Providers Date of Admission: 09/25/16 10:13 Date of discharge: 10/21/16 Attending physician: ALY FRANKLIN 09/25/16 00:01 Consult to Case Management [CONS] Routine Services Needed at Discharge: Home Health Services Physical Therapy Notified:: DIVERSIONAL THERAPIST Consult to Physician [CONS] Routine Consulting Provider: TINY PEÑA Reason For Exam: for post op medical management Place consult to:: DR. PEÑA Notified:: DR. PEÑA Was contact made?: Yes If yes, spoke with:: DR. 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 Therapy Evaluation and Treat [CONS] Routine Comment: avoid flexion, add, int rotation of operative hip Reason For Exam: post op Weight bearing status?: Full wt bearing 09/27/16 07:01 Consult to Physician [CONS] Routine Consulting Provider: ROGER KNOTT Reason For Exam: DESATTING, DYSPNEA, COUGH Place consult to:: ANSWERING SERVICE Notified:: YES Phone number called:: [phone] Was contact made?: Yes If yes, spoke with:: rishabh Dasilva called:: 07:10 Comment:: SPOKE WITH MCKENNA @ OFFICE @ 0722 09/30/16 11:09 Consult to Dietitian/Nutrition [CONS] Routine Physician Instructions: Reason For Exam: Reason for Consult: Evaluate nutritional intake 09/30/16 11:55 PICC Line Insertion [Consult to PICC Line RN] [CONS] Urgent Reason For Exam: need central venous access Type Line:: PICC 10/02/16 09:45 Consult to Physician [CONS] Routine Consulting Provider: DALJIT ALEJANDRA Reason For Exam: sepsis Place consult to:: application administrator ID Notified:: dr yusra rodriguez Phone number called:: [phone] Was contact made?: Yes If yes, spoke with:: dr michael Dasilva called:: 10:20 10/03/16 13:33 Consult to Physician [CONS] Routine Consulting Provider: JODIE QUINTERO Reason For Exam: CARLYN; Equicvocal volume status Place consult to:: Notified:: yes Was contact made?: Yes Comment:: left message at [phone] 10/10/16 02:04 Consult to Physician [CONS] Stat Consulting Provider: JOSE DANIEL AZEVEDO Reason For Exam: Double lumen like dialysis access for exchange tra Place consult to:: bee vascular. Notified:: will be done this am. Comment:: need amarjit. 10/14/16 00:00 Consult to Dietitian/Nutrition [CONS] Routine Physician Instructions: Reason For Exam: Reason for Consult: Evaluate nutritional intake Primary care physician: TINY PEÑA Hospitalization Condition: Poor Disposition: DC/TX ANOTHER TYPE HEALTHCARE - Discharge Diagnoses (1) Acute respiratory failure with hypoxia Status: Acute (2) Sepsis Status: Acute Qualifiers: Sepsis type: sepsis due to unspecified organism Qualified Code(s): A41.9 - Sepsis, unspecified organism (3) CARLYN (acute kidney injury) Status: Acute (4) ARDS (adult respiratory distress syndrome) Status: Acute (5) Acute renal failure due to tubular necrosis Status: Acute (6) Avascular necrosis of bone of left hip Status: Acute (7) H/O total hip arthroplasty Status: Acute Qualifiers: Laterality: left Qualified Code(s): Z96.642 - Presence of left artificial hip joint (8) UTI (urinary tract infection) Status: Acute Qualifiers: Urinary tract infection type: U Hematuria presence: H Indwelling urinary catheter type: I Encounter type: E Core Measure Documentation - Palliative Care Palliative Care/ Comfort Measures: Not Applicable Exam - Constitutional Vitals: Temp Pulse Resp BP Pulse Ox 98.6 F 83 24 129/78 98 10/21/16 08:00 10/21/16 08:30 10/21/16 08:30 10/21/16 08:30 10/21/16 08:30 Plan Activity: advance as tolerated Diet: other (Tube feeding) Additional Instructions: 1.Transfer to LTAC. 2.Please consult Dr. Irby, Dr. Peña and DR. Whitmore Follow up with: TINY PEÑA DO [Primary Care Provider] - 7 Days KENDALL LARSON MD [Staff Physician] - 7 Days
[2016-10-21] MEDS: BROVANA NEBU IH SCH ×2 (09:37→20:27)
[2016-10-21] MEDS: PULMICORT IH SCH ×2 (09:38→20:27)
--- NOTE | 2016-10-21 09:51 | Progress Note ---
Assessment and Plan - Patient Problems (1) Acute respiratory failure with hypoxia Current Visit: Yes Status: Acute Plan to address problem: 1. Patient remains on Solu-Medrol with plan to taper steroids this week. (2) Healthcare-associated pneumonia Current Visit: Yes Status: Acute Plan to address problem: 1. Patient is day #6 of Zyvox for coverage of MRSA. 2. Will extend course over period of tapered steroids to complete 7-10 days of Zyvox. Subjective Date of service: 10/21/16 Principal diagnosis: Acute Hypoxemic Respiratory Failure; ARDS Interval history: Remains intubated in ICU. Afebrile. No new clinical issues. Objective - Exam Narrative Exam: awake, alert, tracks to voice - Constitutional Vitals: Vital Signs Temp Pulse Resp BP Pulse Ox 98.6 F 81 30 H 108/69 98 10/21/16 08:00 10/21/16 09:45 10/21/16 09:45 10/21/16 09:33 10/21/16 09:33 Temperature -Last 24 Hours Temperature 98.6 F Temperature 98.7 F Temperature 98.5 F Temperature 98.5 F Temperature 98.5 F Temperature 98.1 F General appearance: Present: obese - EENT Eyes: exopthalmos ENT: other (ET and Dobhoff tubes in place) - Respiratory Respiratory: bilateral: diminished, negative: rales, rhonchi - Cardiovascular Rhythm: regular (normal rate) Heart Sounds: Present: S1 & S2 Extremities: No edema - Gastrointestinal General gastrointestinal: Present: soft, non-distended - Genitourinary Female genitourinary: normal (Montes with normal-appearing urine) - Integumentary Integumentary: warm, no rash - Neurologic Neurologic: moves all extremities - Additional findings Additional findings: PICC left arm without surrounding inflammation - Labs CBC & Chem 7: 10/20/16 Unknown 10/20/16 Unknown Labs: Abnormal lab results 10/20/16 10/20/16 10/20/16 Range/Units 12:04 18:31 21:30 POC ABG pCO2 59.2 H (35-45) POC ABG pO2 57 L (80-105) POC Glucose 247 H 240 H (70-105) 10/21/16 10/21/16 10/21/16 Range/Units 00:24 04:57 05:35 POC ABG pCO2 57.7 H (35-45) POC ABG pO2 70 L (80-105) POC Glucose 250 H 246 H (70-105) Microbiology 10/15/16 Unknown Bronchoalveolar Lavage - Left Lower Lobe Respiratory Culture - Final 10/12/16 13:28 Tracheal Aspirate Sputum Culture - Final Methicillin Resist S. Aureus 10/04/16 04:05 Tracheal Aspirate Herpes Simplex Virus Culture - Final 10/03/16 09:20 Peripheral/Venous Blood Culture - Final NO GROWTH AFTER 5 DAYS 10/03/16 09:30 Picc Blood Culture - Final NO GROWTH AFTER 5 DAYS 10/03/16 09:06 Urine,Catheterized - Indwelling Catheter Urine Culture - Final 09/27/16 22:47 Peripheral/Venous Blood Culture - Final NO GROWTH AFTER 5 DAYS 09/27/16 22:47 Peripheral/Venous Blood Culture - Final NO GROWTH AFTER 5 DAYS 09/27/16 15:06 Peripheral/Venous Blood Culture - Final NO GROWTH AFTER 5 DAYS 09/27/16 14:40 Peripheral/Venous Blood Culture - Final NO GROWTH AFTER 5 DAYS 09/30/16 Unknown Tracheal Aspirate Sputum Culture - Final Active Medications Acetaminophen (Tylenol) 650 mg PO Q4H PRN PRN Reason: Pain MILD(1-3)/Fever >100.5/PALACIOS Last Admin: 10/07/16 18:13 Dose: 650 mg Albuterol/Ipratropium (Duoneb 0.5 Mg-3 Mg/3 Ml Soln) 1 ampul IH Q6HRT [facility] Last Admin: 10/21/16 09:38 Dose: Not Given Lipase/Protease/Amylase (Pancreaze Dr 10,500 Unit) 1 each FEEDTUBE PRN PRN PRN Reason: For Clogged Feeding Tube Arformoterol Tartrate (Brovana Nebu) 15 mcg IH Q12HRT [facility] Last Admin: 10/21/16 09:37 Dose: 15 mcg Aspirin (Aspirin) 325 mg PO QDAY [facility] Last Admin: 10/20/16 09:30 Dose: 325 mg Budesonide (Pulmicort) 0.5 mg IH Q12HRT [facility] Last Admin: 10/21/16 09:38 Dose: 0.5 mg Diphenhydramine HCl (Benadryl) 12.5 mg IV Q4H PRN PRN Reason: Itching Last Admin: 09/30/16 07:02 Dose: 12.5 mg Enoxaparin Sodium (Lovenox) 40 mg SUB-Q QDAY [facility] Last Admin: 10/20/16 09:30 Dose: 40 mg Famotidine (Pepcid) 20 mg PO BID [facility] Last Admin: 10/20/16 21:06 Dose: 20 mg Folic Acid (Folvite) 1 mg PO QDAY [facility] Last Admin: 10/20/16 09:30 Dose: 1 mg Hydrophilic Ointment (Vaseline Lip Therapy) 1 applic TP Q2HR PRN PRN Reason: Dry Lips Fentanyl Citrate (Fentanyl Drip Premix) 2,000 mcg in 100 mls @ 4.649 mls/hr IV TITR [facility]; 1 MCG/KG/HR PRN Reason: Protocol Last Admin: 10/21/16 03:30 Dose: 2 mcg/kg/hr, 9.299 mls/hr Midazolam HCl 100 mg/ Sodium (Chloride) 100 mls @ 2 mls/hr IV TITR SAD[facility]; 2 MG/HR PRN Reason: Protocol Last Admin: 10/04/16 12:54 Dose: 2 mg/hr, 2 mls/hr Propofol (Diprivan 10 Mg/Ml) 1,000 mg in 100 mls @ 3.045 mls/hr IV TITR [facility]AD[facility]; 5 MCG/KG/MIN PRN Reason: Protocol Last Admin: 10/20/16 20:56 Dose: 5 mcg/kg/min, 3.045 mls/hr Sodium Chloride (Nacl 0.45% 1000 Ml) 1,000 mls @ 75 mls/hr IV DIRECT [facility] Last Admin: 10/21/16 06:36 Dose: 75 mls/hr Insulin Detemir (Levemir) 26 units SUB-Q DAILY [facility] Insulin Detemir (Levemir) 6 units SUB-Q ONCE ONE Stop: 10/21/16 10:01 Insulin Human Regular (Novolin R) 0 units SUB-Q Q6HR [facility] PRN Reason: Protocol Last Admin: 10/21/16 06:47 Dose: 2 units Linezolid (Zyvox) 600 mg PO Q12HR [facility] PRN Reason: Protocol Last Admin: 10/20/16 21:06 Dose: 600 mg Methylprednisolone Sodium Succinate (Solu-Medrol) 125 mg IV Q6H [facility] Last Admin: 10/21/16 08:34 Dose: 125 mg Multi-Ingred Cream/Lotion/Oil/Oint (Artificial Tears Ophth Oint) 1 applic OU Q4HR PRN PRN Reason: Dry Eye(s) Multivitamins (Theragran Tab) 1 each PO QDAY [facility] Last Admin: 10/20/16 09:30 Dose: 1 each Ondansetron HCl (Zofran) 4 mg IV Q8H PRN PRN Reason: Nausea And Vomiting Last Admin: 09/29/16 23:07 Dose: 4 mg Promethazine HCl (Phenergan) 25 mg MA Q6H PRN PRN Reason: Nausea And Vomiting Last Admin: 09/25/16 22:05 Dose: 25 mg Senna (Senokot) 17.2 mg PO DAILY [facility] Last Admin: 10/20/16 09:30 Dose: 17.2 mg Simple Syrup (Simple Syrup) 15 ml FEEDTUBE PRN PRN PRN Reason: Hypoglycemia Simple Syrup (Simple Syrup) 30 ml FEEDTUBE PRN PRN PRN Reason: Hypoglycemia Sodium Bicarbonate (Sodium Bicarbonate) 325 mg FEEDTUBE PRN PRN PRN Reason: For Clogged Feeding Tube Sodium Chloride (Sodium Chloride Flush Syringe 10 Ml) 10 ml IV PRN PRN PRN Reason: LINE FLUSH Tramadol HCl (Ultram) 50 mg PO Q4H PRN PRN Reason: Pain, Moderate (4-6) Last Admin: 10/06/16 21:54 Dose: 50 mg Valacyclovir HCl (Valtrex) 500 mg PO DAILY [facility] Last Admin: 10/20/16 09:30 Dose: 500 mg Zolpidem Tartrate (Ambien) 5 mg PO QHS PRN PRN Reason: Sleep - Imaging and cardiology Chest x-ray: report reviewed (bilateral airspace opacities without significant interval change)
--- NOTE | 2016-10-21 09:57 | Progress Note ---
Assessment and Plan - Patient Problems (1) ARDS (adult respiratory distress syndrome) Current Visit: Yes Status: Acute Plan to address problem: ARDS net protocol with lung protective strategies Continue diuretics as tolerated by renal function and electrolyte profile VTE and stress ulcer prophylaxis Adequate analgesia/agitation management Nutrition- continue Glycemic control Continue weaning ventilatory support as tolerated s/p Bronchoscopy and on high dose steroids- start steroid taper ABG on current settings 7.43/57/70/38.3 (2) Acute respiratory failure with hypoxia Current Visit: Yes Status: Acute Plan to address problem: Continue current therapies. Gentle diuresis as tolerated by BP and renal function Weaning as tolerated VAP bundle addressed HOB >40, aspiration precautions Lung protective strategies Sedation and analgesia Enteric feedings/nutritional support Will need to discuss timing of tracheostomy placement (3) Leukemoid reaction Current Visit: Yes Status: Acute Plan to address problem: Antibiotics as per ID service. Continue to monitor and trend counts (4) Acute renal failure due to tubular necrosis Current Visit: Yes Status: Acute Plan to address problem: Resolved (5) Acute hypernatremia Current Visit: Yes Status: Acute Plan to address problem: Much improved (6) H/O total hip arthroplasty Current Visit: Yes Status: Acute Qualifiers: Laterality: left Qualified Code(s): Z96.642 - Presence of left artificial hip joint Plan to address problem: As per Orthopedic service (7) Pulmonary infiltrates on CXR Current Visit: Yes Status: Acute Plan to address problem: Start tapering steroids. Had clinical features suggestive of diffuse alveolar hemorrhage on bronchoscopy. Currently on Linezolid for MRSA HCAP/ tracheobronchitis. Discussed with ID service- plan to complete 10 days of therapy (8) Pneumomediastinum Current Visit: Yes Status: Acute Plan to address problem: Lung protective strategies- low PEEP without compromising oxygenation. PaO2 of 60 is acceptable (9) Diabetes Current Visit: Yes Status: Acute Qualifiers: Diabetes mellitus type: type 2 Diabetes mellitus complication status: D Diabetes mellitus complication detail: D Diabetic retinopathy severity: D Proliferative retinopathy type: P Diabetes mellitus macular edema: D Diabetes mellitus residential insulin use: D Laterality: L Chronic kidney disease stage: C Plan to address problem: Continue with dietary restrictions Accucheck with insulin therapy With steroid taper, anticipate that there will be better glycemic control (10) Discharge planning issues Current Visit: Yes Status: Acute Plan to address problem: If she continues to tolerate weaning, plan to discharge to LTACH for weaning from the ventilator and low level rehab Subjective Date of service: 10/21/16 Principal diagnosis: Acute Hypoxemic Respiratory Failure; ARDS Interval history: Remains critically ill on mechanical ventilatory support. Awake and alert No Patient-ventilator dysynchrony Orally intubated Currently on fentanyl and propofol for sedation/analgesia On AC-VC 26/400/PEEP 8/FIO2 50% Had developed pneumomediastinum Patient seen and examined. Vitals, labs, medications, chart reviewed. Discussed with RN ,RT and multidisciplinary team Objective - Exam Narrative Exam: awake, alert, tracks to voice Vital Signs - 12hr 10/20/16 10/20/16 10/20/16 22:00 22:15 22:30 Temperature Pulse Rate 97 H 102 H 112 H Pulse Rate [ Anterior Bilateral Throughout] Pulse Rate [ From Monitor] Respiratory Rate Respiratory Rate [Anterior Bilateral Throughout] Respiratory Rate [Left Hip] Blood Pressure 132/77 139/79 157/85 O2 Sat by Pulse 93 92 Oximetry 10/20/16 10/20/16 10/20/16 22:45 23:00 23:15 Temperature Pulse Rate 106 H 101 H 100 H Pulse Rate [ Anterior Bilateral Throughout] Pulse Rate [ From Monitor] Respiratory Rate Respiratory Rate [Anterior Bilateral Throughout] Respiratory Rate [Left Hip] Blood Pressure 141/85 128/77 134/79 O2 Sat by Pulse 90 93 93 Oximetry 10/20/16 10/20/16 10/21/16 23:30 23:45 00:00 Temperature 98.5 F Pulse Rate 101 H 95 H 99 H Pulse Rate [ Anterior Bilateral Throughout] Pulse Rate [ 99 H From Monitor] Respiratory 20 Rate Respiratory Rate [Anterior Bilateral Throughout] Respiratory Rate [Left Hip] Blood Pressure 117/69 123/72 131/69 O2 Sat by Pulse 93 96 95 Oximetry 10/21/16 10/21/16 10/21/16 00:15 00:30 00:42 Temperature Pulse Rate 101 H 100 H 101 H Pulse Rate [ Anterior Bilateral Throughout] Pulse Rate [ From Monitor] Respiratory Rate Respiratory Rate [Anterior Bilateral Throughout] Respiratory Rate [Left Hip] Blood Pressure 135/79 123/72 139/77 O2 Sat by Pulse 95 94 96 Oximetry 10/21/16 10/21/16 10/21/16 00:45 01:00 01:15 Temperature Pulse Rate 100 H 103 H 103 H Pulse Rate [ Anterior Bilateral Throughout] Pulse Rate [ From Monitor] Respiratory Rate Respiratory Rate [Anterior Bilateral Throughout] Respiratory Rate [Left Hip] Blood Pressure 124/77 131/76 139/77 O2 Sat by Pulse 91 91 92 Oximetry 10/21/16 10/21/16 10/21/16 01:30 01:45 01:58 Temperature Pulse Rate 103 H 98 H Pulse Rate [ Anterior Bilateral Throughout] Pulse Rate [ From Monitor] Respiratory Rate Respiratory Rate [Anterior Bilateral Throughout] Respiratory 20 Rate [Left Hip] Blood Pressure 129/77 121/78 O2 Sat by Pulse 91 94 Oximetry 10/21/16 10/21/16 10/21/16 02:00 02:15 02:29 Temperature Pulse Rate 106 H 99 H Pulse Rate [ 97 H Anterior Bilateral Throughout] Pulse Rate [ From Monitor] Respiratory Rate Respiratory 30 H Rate [Anterior Bilateral Throughout] Respiratory Rate [Left Hip] Blood Pressure 119/83 138/83 O2 Sat by Pulse 94 91 Oximetry 10/21/16 10/21/16 10/21/16 02:30 02:39 02:45 Temperature Pulse Rate 105 H 91 H Pulse Rate [ 94 H Anterior Bilateral Throughout] Pulse Rate [ From Monitor] Respiratory Rate Respiratory 27 H Rate [Anterior Bilateral Throughout] Respiratory Rate [Left Hip] Blood Pressure 116/73 140/86 O2 Sat by Pulse 99 92 Oximetry 10/21/16 10/21/16 10/21/16 03:00 03:15 03:30 Temperature Pulse Rate 96 H 102 H 104 H Pulse Rate [ Anterior Bilateral Throughout] Pulse Rate [ From Monitor] Respiratory Rate Respiratory Rate [Anterior Bilateral Throughout] Respiratory Rate [Left Hip] Blood Pressure 133/79 140/73 155/87 O2 Sat by Pulse 94 92 94 Oximetry 10/21/16 10/21/16 10/21/16 03:45 04:00 04:15 Temperature 98.7 F Pulse Rate 94 H 99 H 97 H Pulse Rate [ Anterior Bilateral Throughout] Pulse Rate [ 94 H From Monitor] Respiratory 20 Rate Respiratory Rate [Anterior Bilateral Throughout] Respiratory Rate [Left Hip] Blood Pressure 138/75 138/82 144/87 O2 Sat by Pulse 92 94 95 Oximetry 10/21/16 10/21/16 10/21/16 04:30 04:45 04:57 Temperature Pulse Rate 100 H 97 H 92 H Pulse Rate [ Anterior Bilateral Throughout] Pulse Rate [ From Monitor] Respiratory Rate Respiratory Rate [Anterior Bilateral Throughout] Respiratory Rate [Left Hip] Blood Pressure 124/70 137/85 139/80 O2 Sat by Pulse 94 96 98 Oximetry 10/21/16 10/21/16 10/21/16 05:00 05:15 05:30 Temperature Pulse Rate 96 H 101 H Pulse Rate [ Anterior Bilateral Throughout] Pulse Rate [ From Monitor] Respiratory Rate Respiratory Rate [Anterior Bilateral Throughout] Respiratory Rate [Left Hip] Blood Pressure 139/80 144/87 158/99 O2 Sat by Pulse 97 97 94 Oximetry 10/21/16 10/21/16 10/21/16 05:45 06:01 06:15 Temperature Pulse Rate 94 H 92 H Pulse Rate [ Anterior Bilateral Throughout] Pulse Rate [ From Monitor] Respiratory 19 26 H Rate Respiratory Rate [Anterior Bilateral Throughout] Respiratory Rate [Left Hip] Blood Pressure 158/99 158/99 136/87 O2 Sat by Pulse 100 94 93 Oximetry 10/21/16 10/21/16 10/21/16 06:30 06:45 07:00 Temperature Pulse Rate 91 H 86 85 Pulse Rate [ Anterior Bilateral Throughout] Pulse Rate [ From Monitor] Respiratory 25 H 27 H 10 L Rate Respiratory Rate [Anterior Bilateral Throughout] Respiratory Rate [Left Hip] Blood Pressure 132/89 145/91 129/81 O2 Sat by Pulse 97 98 98 Oximetry 10/21/16 10/21/16 10/21/16 07:15 07:30 07:45 Temperature Pulse Rate 84 86 88 Pulse Rate [ Anterior Bilateral Throughout] Pulse Rate [ From Monitor] Respiratory 26 H 25 H 26 H Rate Respiratory Rate [Anterior Bilateral Throughout] Respiratory Rate [Left Hip] Blood Pressure 135/86 138/78 140/84 O2 Sat by Pulse 97 97 98 Oximetry 10/21/16 10/21/16 10/21/16 08:00 08:15 08:30 Temperature 98.6 F Pulse Rate 85 84 83 Pulse Rate [ Anterior Bilateral Throughout] Pulse Rate [ 86 From Monitor] Respiratory 27 H 26 H 17 Rate Respiratory Rate [Anterior Bilateral Throughout] Respiratory Rate [Left Hip] Blood Pressure 112/61 123/71 129/78 O2 Sat by Pulse 96 98 97 Oximetry 10/21/16 10/21/16 10/21/16 08:40 08:45 09:00 Temperature Pulse Rate 86 86 89 Pulse Rate [ Anterior Bilateral Throughout] Pulse Rate [ From Monitor] Respiratory 27 H 28 H Rate Respiratory Rate [Anterior Bilateral Throughout] Respiratory Rate [Left Hip] Blood Pressure 127/69 126/78 O2 Sat by Pulse 96 94 Oximetry 10/21/16 10/21/16 10/21/16 09:33 09:38 09:45 Temperature Pulse Rate 80 Pulse Rate [ 81 81 Anterior Bilateral Throughout] Pulse Rate [ From Monitor] Respiratory Rate Respiratory 27 H 30 H Rate [Anterior Bilateral Throughout] Respiratory Rate [Left Hip] Blood Pressure 108/69 O2 Sat by Pulse 98 Oximetry Constitutional: no acute distress, alert, other Eyes: non-icteric, other (exopthalmus) ENT: oropharynx moist Neck: supple, no lymphadenopathy Effort: mildly labored Ascultation: Bilateral: diminished breath sounds, rales, rhonchi, other (coarse BS no wheezing) Cardiovascular: regular rate and rhythm, other (no murmurs, gallops or rubs) Gastrointestinal: normoactive bowel sounds, soft, non-tender, non-distended Integumentary: normal Extremities: no cyanosis, no edema, pulses normal, no ischemia or petechiae, other (Abductor pillow in between legs) Neurologic: normal mental status, non-focal exam, pupils equal and round, other (follows commands ) Psychiatric: affect normal, other (sedated now) CBC and BMP: 10/20/16 Unknown 10/20/16 Unknown ABG, PT/INR, D-dimer: ABG POC ABG pH 7.431 (7.35-7.45) 10/21/16 04:57 POC ABG pCO2 57.7 (35-45) H 10/21/16 04:57 POC ABG pO2 70 (80-105) L 10/21/16 04:57 POC ABG HCO3 38.3 10/21/16 04:57 POC ABG Total CO2 40 10/21/16 04:57 POC ABG O2 Sat 94 10/21/16 04:57 PT/INR, D-dimer PT 17.6 Sec. (12.2-14.9) H 10/10/16 13:03 INR 1.45 (0.87-1.13) H 10/10/16 13:03 D-Dimer 4758.12 ng/mlDDU (0-234) H 09/27/16 22:47 Abnormal lab findings: Abnormal Labs 09/20/16 09/20/16 09/20/16 10:35 10:35 10:35 WBC 11.7 H RBC Hgb Hct MCV 75 L MCH 24 L RDW 16.6 H Plt Count [place] # Baso # Seg Neutrophils % Seg Neuts % (Manual) Lymphocytes % (Manual) Monocytes % (Manual) Eosinophils % (Manual) Nucleated RBC % Seg Neutrophils # Seg Neutrophils # Man Abs Lymphs (Manual) Lymphocytes # (Manual) Monocytes # (Manual) Eosinophils # (Manual) Percent Retic PT INR 1.14 H D-Dimer POC ABG pH POC ABG pCO2 POC ABG pO2 Sodium Potassium Chloride Carbon Dioxide BUN Creatinine 0.5 L Glucose 115 H POC Glucose Lactic Acid Calcium Phosphorus Magnesium Ferritin Total Bilirubin 2.0 H Lactate Dehydrogenase Total Creatine Kinase CK-MB (CK-2) C-Reactive Protein NT-Pro-B Natriuret Pep Total Protein Albumin Triglycerides Urine WBC (Auto) Urine Creatinine Urine Total Protein Vancomycin Trough Random Vancomycin Absolute CD4 Count Absolute CD19 Count Crossmatch 09/26/16 09/26/16 09/27/16 04:26 04:26 10:26 WBC RBC Hgb 8.9 L Hct 28.0 L MCV MCH RDW Plt Count [place] # Baso # Seg Neutrophils % Seg Neuts % (Manual) Lymphocytes % (Manual) Monocytes % (Manual) Eosinophils % (Manual) Nucleated RBC % Seg Neutrophils # Seg Neutrophils # Man Abs Lymphs (Manual) Lymphocytes # (Manual) Monocytes # (Manual) Eosinophils # (Manual) Percent Retic PT INR D-Dimer POC ABG pH 7.283 L POC ABG pCO2 45.3 H POC ABG pO2 79 L Sodium Potassium Chloride Carbon Dioxide 20 L BUN Creatinine Glucose 129 H POC Glucose Lactic Acid Calcium 7.6 L Phosphorus Magnesium Ferritin Total Bilirubin Lactate Dehydrogenase Total Creatine Kinase CK-MB (CK-2) C-Reactive Protein NT-Pro-B Natriuret Pep Total Protein Albumin Triglycerides Urine WBC (Auto) Urine Creatinine Urine Total Protein Vancomycin Trough Random Vancomycin Absolute CD4 Count Absolute CD19 Count Crossmatch 09/27/16 09/27/16 09/27/16 14:40 14:40 15:14 WBC 39.3 H RBC Hgb 9.3 L Hct 28.9 L MCV 75 L MCH 24 L RDW 18.7 H Plt Count [place] # Baso # Seg Neutrophils % Seg Neuts % (Manual) 93.5 H Lymphocytes % (Manual) 5.0 L Monocytes % (Manual) Eosinophils % (Manual) Nucleated RBC % Seg Neutrophils # Seg Neutrophils # Man 36.7 H Abs Lymphs (Manual) Lymphocytes # (Manual) Monocytes # (Manual) Eosinophils # (Manual) Percent Retic PT INR D-Dimer POC ABG pH POC ABG pCO2 POC ABG pO2 Sodium Potassium Chloride Carbon Dioxide BUN Creatinine Glucose POC Glucose Lactic Acid 2.9 H* Calcium Phosphorus Magnesium Ferritin Total Bilirubin Lactate Dehydrogenase Total Creatine Kinase 3575 H CK-MB (CK-2) 11.0 H C-Reactive Protein 16.10 H NT-Pro-B Natriuret Pep Total Protein Albumin Triglycerides Urine WBC (Auto) Urine Creatinine Urine Total Protein Vancomycin Trough Random Vancomycin Absolute CD4 Count Absolute CD19 Count Crossmatch 09/27/16 09/27/16 09/27/16 18:05 22:47 22:47 WBC RBC Hgb Hct MCV MCH RDW Plt Count [place] # Baso # Seg Neutrophils % Seg Neuts % (Manual) Lymphocytes % (Manual) Monocytes % (Manual) Eosinophils % (Manual) Nucleated RBC % Seg Neutrophils # Seg Neutrophils # Man Abs Lymphs (Manual) Lymphocytes # (Manual) Monocytes # (Manual) Eosinophils # (Manual) Percent Retic PT INR D-Dimer 4758.12 H POC ABG pH POC ABG pCO2 POC ABG pO2 70 L Sodium Potassium Chloride Carbon Dioxide BUN Creatinine Glucose POC Glucose Lactic Acid Calcium Phosphorus Magnesium Ferritin Total Bilirubin Lactate Dehydrogenase 829 H Total Creatine Kinase CK-MB (CK-2) C-Reactive Protein NT-Pro-B Natriuret Pep Total Protein Albumin Triglycerides Urine WBC (Auto) Urine Creatinine Urine Total Protein Vancomycin Trough Random Vancomycin Absolute CD4 Count Absolute CD19 Count Crossmatch 09/27/16 09/28/16 09/28/16 22:47 09:20 10:47 WBC RBC Hgb Hct MCV MCH RDW Plt Count [place] # Baso # Seg Neutrophils % Seg Neuts % (Manual) Lymphocytes % (Manual) Monocytes % (Manual) Eosinophils % (Manual) Nucleated RBC % Seg Neutrophils # Seg Neutrophils # Man Abs Lymphs (Manual) Lymphocytes # (Manual) Monocytes # (Manual) Eosinophils # (Manual) Percent Retic 8.11 H PT INR D-Dimer POC ABG pH POC ABG pCO2 47.2 H POC ABG pO2 70 L Sodium Potassium Chloride Carbon Dioxide BUN Creatinine 0.6 L Glucose 137 H POC Glucose Lactic Acid Calcium Phosphorus Magnesium Ferritin Total Bilirubin Lactate Dehydrogenase Total Creatine Kinase CK-MB (CK-2) C-Reactive Protein NT-Pro-B Natriuret Pep Total Protein Albumin Triglycerides Urine WBC (Auto) Urine Creatinine Urine Total Protein Vancomycin Trough Random Vancomycin Absolute CD4 Count Absolute CD19 Count Crossmatch 09/28/16 09/30/16 09/30/16 10:47 11:01 14:05 WBC 30.3 H RBC 3.27 L Hgb 8.1 L Hct 24.4 L MCV 75 L MCH 25 L RDW 18.9 H Plt Count [place] # Baso # Seg Neutrophils % Seg Neuts % (Manual) Lymphocytes % (Manual) 12.0 L Monocytes % (Manual) Eosinophils % (Manual) Nucleated RBC % 5.0 H Seg Neutrophils # Seg Neutrophils # Man 21.2 H Abs Lymphs (Manual) Lymphocytes # (Manual) Monocytes # (Manual) 1.8 H Eosinophils # (Manual) Percent Retic PT INR D-Dimer POC ABG pH POC ABG pCO2 48.8 H POC ABG pO2 52 L Sodium Potassium Chloride Carbon Dioxide BUN Creatinine Glucose POC Glucose Lactic Acid Calcium Phosphorus Magnesium Ferritin Total Bilirubin Lactate Dehydrogenase Total Creatine Kinase CK-MB (CK-2) C-Reactive Protein NT-Pro-B Natriuret Pep 2018 H Total Protein Albumin Triglycerides Urine WBC (Auto) Urine Creatinine Urine Total Protein Vancomycin Trough Random Vancomycin Absolute CD4 Count Absolute CD19 Count Crossmatch 09/30/16 09/30/16 09/30/16 14:05 14:05 14:05 WBC 22.1 H RBC 2.76 L Hgb 6.9 L Hct 20.6 L MCV 75 L MCH 25 L RDW 18.7 H Plt Count [place] # Baso # Seg Neutrophils % Seg Neuts % (Manual) 74.0 H Lymphocytes % (Manual) 7.0 L Monocytes % (Manual) Eosinophils % (Manual) Nucleated RBC % 52.0 H Seg Neutrophils # Seg Neutrophils # Man 16.4 H Abs Lymphs (Manual) Lymphocytes # (Manual) Monocytes # (Manual) Eosinophils # (Manual) Percent Retic PT INR D-Dimer POC ABG pH POC ABG pCO2 POC ABG pO2 Sodium Potassium 3.1 L Chloride Carbon Dioxide BUN Creatinine 0.5 L Glucose 116 H POC Glucose Lactic Acid Calcium 8.2 L Phosphorus Magnesium Ferritin Total Bilirubin Lactate Dehydrogenase Total Creatine Kinase CK-MB (CK-2) C-Reactive Protein 30.80 H NT-Pro-B Natriuret Pep Total Protein Albumin Triglycerides Urine WBC (Auto) Urine Creatinine Urine Total Protein Vancomycin Trough Random Vancomycin Absolute CD4 Count Absolute CD19 Count Crossmatch 09/30/16 10/01/16 10/01/16 14:33 00:55 00:55 WBC 26.1 H RBC 2.80 L Hgb 6.8 L Hct 20.8 L MCV 74 L MCH 24 L RDW 18.6 H Plt Count [place] # Baso # Seg Neutrophils % Seg Neuts % (Manual) 85.0 H Lymphocytes % (Manual) 11.0 L Monocytes % (Manual) Eosinophils % (Manual) Nucleated RBC % 21.0 H Seg Neutrophils # Seg Neutrophils # Man 22.2 H Abs Lymphs (Manual) Lymphocytes # (Manual) Monocytes # (Manual) 1.0 H Eosinophils # (Manual) Percent Retic PT INR D-Dimer POC ABG pH POC ABG pCO2 47.8 H POC ABG pO2 201 H Sodium Potassium Chloride Carbon Dioxide BUN Creatinine Glucose POC Glucose Lactic Acid Calcium Phosphorus Magnesium Ferritin Total Bilirubin Lactate Dehydrogenase Total Creatine Kinase CK-MB (CK-2) C-Reactive Protein NT-Pro-B Natriuret Pep Total Protein Albumin Triglycerides Urine WBC (Auto) Urine Creatinine Urine Total Protein Vancomycin Trough Random Vancomycin Absolute CD4 Count Absolute CD19 Count Crossmatch See Detail 10/01/16 10/01/16 10/01/16 04:57 05:00 13:01 WBC RBC Hgb Hct MCV MCH RDW Plt Count [place] # Baso # Seg Neutrophils % Seg Neuts % (Manual) Lymphocytes % (Manual) Monocytes % (Manual) Eosinophils % (Manual) Nucleated RBC % Seg Neutrophils # Seg Neutrophils # Man Abs Lymphs (Manual) Lymphocytes # (Manual) Monocytes # (Manual) Eosinophils # (Manual) Percent Retic PT INR D-Dimer POC ABG pH POC ABG pCO2 58.5 H POC ABG pO2 149 H Sodium 149 H Potassium 3.0 L Chloride Carbon Dioxide BUN Creatinine Glucose POC Glucose 120 H Lactic Acid Calcium 8.3 L Phosphorus Magnesium Ferritin Total Bilirubin Lactate Dehydrogenase Total Creatine Kinase CK-MB (CK-2) C-Reactive Protein NT-Pro-B Natriuret Pep Total Protein Albumin Triglycerides Urine WBC (Auto) Urine Creatinine Urine Total Protein Vancomycin Trough Random Vancomycin Absolute CD4 Count Absolute CD19 Count Crossmatch 10/01/16 10/01/16 10/01/16 15:43 17:44 23:37 WBC 27.6 H RBC 3.55 L Hgb 8.9 L Hct 27.6 L D MCV 78 L D MCH 25 L RDW 18.1 H Plt Count [place] # Baso # Seg Neutrophils % Seg Neuts % (Manual) 79.5 H Lymphocytes % (Manual) 8.0 L Monocytes % (Manual) Eosinophils % (Manual) Nucleated RBC % 65.0 H Seg Neutrophils # Seg Neutrophils # Man 21.9 H Abs Lymphs (Manual) Lymphocytes # (Manual) Monocytes # (Manual) 1.0 H Eosinophils # (Manual) Percent Retic PT INR D-Dimer POC ABG pH POC ABG pCO2 POC ABG pO2 Sodium Potassium Chloride Carbon Dioxide BUN Creatinine Glucose POC Glucose 121 H 129 H Lactic Acid Calcium Phosphorus Magnesium Ferritin Total Bilirubin Lactate Dehydrogenase Total Creatine Kinase CK-MB (CK-2) C-Reactive Protein NT-Pro-B Natriuret Pep Total Protein Albumin Triglycerides Urine WBC (Auto) Urine Creatinine Urine Total Protein Vancomycin Trough Random Vancomycin Absolute CD4 Count Absolute CD19 Count Crossmatch 10/02/16 10/02/16 10/02/16 05:05 05:40 06:00 WBC 23.0 H RBC 3.30 L Hgb 8.3 L Hct 25.8 L MCV 78 L MCH 25 L RDW 18.2 H Plt Count [place] # Baso # Seg Neutrophils % Seg Neuts % (Manual) 83.5 H Lymphocytes % (Manual) 4.0 L Monocytes % (Manual) Eosinophils % (Manual) Nucleated RBC % 14.5 H Seg Neutrophils # Seg Neutrophils # Man 25.1 H Abs Lymphs (Manual) Lymphocytes # (Manual) Monocytes # (Manual) 1.7 H Eosinophils # (Manual) Percent Retic PT INR D-Dimer POC ABG pH POC ABG pCO2 50.5 H POC ABG pO2 Sodium Potassium Chloride Carbon Dioxide BUN Creatinine Glucose POC Glucose 123 H Lactic Acid Calcium Phosphorus Magnesium Ferritin Total Bilirubin Lactate Dehydrogenase Total Creatine Kinase CK-MB (CK-2) C-Reactive Protein NT-Pro-B Natriuret Pep Total Protein Albumin Triglycerides Urine WBC (Auto) Urine Creatinine Urine Total Protein Vancomycin Trough Random Vancomycin Absolute CD4 Count Absolute CD19 Count Crossmatch 10/02/16 10/02/16 10/02/16 06:00 11:42 21:52 WBC RBC Hgb Hct MCV MCH RDW Plt Count [place] # Baso # Seg Neutrophils % Seg Neuts % (Manual) Lymphocytes % (Manual) Monocytes % (Manual) Eosinophils % (Manual) Nucleated RBC % Seg Neutrophils # Seg Neutrophils # Man Abs Lymphs (Manual) Lymphocytes # (Manual) Monocytes # (Manual) Eosinophils # (Manual) Percent Retic PT INR D-Dimer POC ABG pH 7.324 L POC ABG pCO2 60.5 H POC ABG pO2 74 L Sodium 150 H Potassium Chloride 108.3 H Carbon Dioxide BUN 20 H Creatinine 1.4 H D Glucose 117 H POC Glucose 135 H Lactic Acid Calcium Phosphorus Magnesium Ferritin Total Bilirubin Lactate Dehydrogenase Total Creatine Kinase CK-MB (CK-2) C-Reactive Protein NT-Pro-B Natriuret Pep Total Protein Albumin Triglycerides Urine WBC (Auto) Urine Creatinine Urine Total Protein Vancomycin Trough Random Vancomycin Absolute CD4 Count Absolute CD19 Count Crossmatch 10/02/16 10/03/16 10/03/16 23:26 05:55 08:17 WBC 32.0 H RBC 3.13 L Hgb 7.9 L Hct 24.6 L MCV MCH 25 L RDW 18.9 H Plt Count 132 L [place] # Baso # Seg Neutrophils % Seg Neuts % (Manual) 75.0 H Lymphocytes % (Manual) 5.0 L Monocytes % (Manual) Eosinophils % (Manual) Nucleated RBC % 26.0 H Seg Neutrophils # Seg Neutrophils # Man 24.0 H Abs Lymphs (Manual) Lymphocytes # (Manual) Monocytes # (Manual) 1.0 H Eosinophils # (Manual) 1.0 H Percent Retic PT INR D-Dimer POC ABG pH POC ABG pCO2 POC ABG pO2 Sodium Potassium Chloride Carbon Dioxide BUN Creatinine Glucose POC Glucose 121 H 145 H Lactic Acid Calcium Phosphorus Magnesium Ferritin Total Bilirubin Lactate Dehydrogenase Total Creatine Kinase CK-MB (CK-2) C-Reactive Protein NT-Pro-B Natriuret Pep Total Protein Albumin Triglycerides Urine WBC (Auto) Urine Creatinine Urine Total Protein Vancomycin Trough Random Vancomycin Absolute CD4 Count Absolute CD19 Count Crossmatch 10/03/16 10/03/16 10/03/16 08:17 09:26 11:34 WBC RBC Hgb Hct MCV MCH RDW Plt Count [place] # Baso # Seg Neutrophils % Seg Neuts % (Manual) Lymphocytes % (Manual) Monocytes % (Manual) Eosinophils % (Manual) Nucleated RBC % Seg Neutrophils # Seg Neutrophils # Man Abs Lymphs (Manual) Lymphocytes # (Manual) Monocytes # (Manual) Eosinophils # (Manual) Percent Retic PT INR D-Dimer POC ABG pH 7.274 L POC ABG pCO2 59.7 H POC ABG pO2 58 L Sodium 147 H Potassium Chloride 107.6 H Carbon Dioxide BUN 31 H Creatinine 1.7 H Glucose 118 H POC Glucose 142 H Lactic Acid Calcium Phosphorus Magnesium Ferritin Total Bilirubin Lactate Dehydrogenase Total Creatine Kinase CK-MB (CK-2) C-Reactive Protein NT-Pro-B Natriuret Pep Total Protein Albumin Triglycerides Urine WBC (Auto) Urine Creatinine Urine Total Protein Vancomycin Trough Random Vancomycin Absolute CD4 Count Absolute CD19 Count Crossmatch 10/03/16 10/03/16 10/03/16 15:54 15:54 16:58 WBC RBC Hgb Hct MCV MCH RDW Plt Count [place] # Baso # Seg Neutrophils % Seg Neuts % (Manual) Lymphocytes % (Manual) Monocytes % (Manual) Eosinophils % (Manual) Nucleated RBC % Seg Neutrophils # Seg Neutrophils # Man Abs Lymphs (Manual) Lymphocytes # (Manual) Monocytes # (Manual) Eosinophils # (Manual) Percent Retic PT INR D-Dimer POC ABG pH POC ABG pCO2 POC ABG pO2 Sodium Potassium Chloride Carbon Dioxide BUN Creatinine Glucose POC Glucose 138 H Lactic Acid Calcium Phosphorus Magnesium Ferritin Total Bilirubin Lactate Dehydrogenase Total Creatine Kinase CK-MB (CK-2) C-Reactive Protein NT-Pro-B Natriuret Pep Total Protein Albumin Triglycerides Urine WBC (Auto) 21.0 H Urine Creatinine 63.2 H Urine Total Protein 67 H Vancomycin Trough Random Vancomycin Absolute CD4 Count Absolute CD19 Count Crossmatch 10/03/16 10/03/16 10/04/16 21:37 23:44 04:00 WBC 30.3 H RBC 2.86 L Hgb 7.3 L Hct 22.6 L MCV MCH 25 L RDW 19.6 H Plt Count 125 L [place] # Baso # Seg Neutrophils % Seg Neuts % (Manual) Lymphocytes % (Manual) 12.0 L Monocytes % (Manual) Eosinophils % (Manual) 5.0 H Nucleated RBC % 30.0 H Seg Neutrophils # Seg Neutrophils # Man 12.7 H Abs Lymphs (Manual) Lymphocytes # (Manual) Monocytes # (Manual) 1.2 H Eosinophils # (Manual) 1.5 H Percent Retic PT INR D-Dimer POC ABG pH 7.271 L POC ABG pCO2 61.7 H POC ABG pO2 77 L Sodium Potassium Chloride Carbon Dioxide BUN Creatinine Glucose POC Glucose 130 H Lactic Acid Calcium Phosphorus Magnesium Ferritin Total Bilirubin Lactate Dehydrogenase Total Creatine Kinase CK-MB (CK-2) C-Reactive Protein NT-Pro-B Natriuret Pep Total Protein Albumin Triglycerides Urine WBC (Auto) Urine Creatinine Urine Total Protein Vancomycin Trough Random Vancomycin Absolute CD4 Count Absolute CD19 Count Crossmatch 10/04/16 10/04/16 10/04/16 04:03 06:02 12:29 WBC RBC Hgb Hct MCV MCH RDW Plt Count [place] # Baso # Seg Neutrophils % Seg Neuts % (Manual) Lymphocytes % (Manual) Monocytes % (Manual) Eosinophils % (Manual) Nucleated RBC % Seg Neutrophils # Seg Neutrophils # Man Abs Lymphs (Manual) Lymphocytes # (Manual) Monocytes # (Manual) Eosinophils # (Manual) Percent Retic PT INR D-Dimer POC ABG pH 7.248 L POC ABG pCO2 62.3 H POC ABG pO2 59 L Sodium Potassium Chloride Carbon Dioxide BUN 40 H Creatinine 1.7 H Glucose 110 H POC Glucose 123 H Lactic Acid Calcium Phosphorus Magnesium Ferritin Total Bilirubin Lactate Dehydrogenase Total Creatine Kinase CK-MB (CK-2) C-Reactive Protein NT-Pro-B Natriuret Pep Total Protein 5.6 L Albumin 2.1 L Triglycerides Urine WBC (Auto) Urine Creatinine Urine Total Protein Vancomycin Trough Random Vancomycin Absolute CD4 Count Absolute CD19 Count Crossmatch 10/04/16 10/04/16 10/04/16 12:39 15:14 17:45 WBC RBC Hgb Hct MCV MCH RDW Plt Count [place] # Baso # Seg Neutrophils % Seg Neuts % (Manual) Lymphocytes % (Manual) Monocytes % (Manual) Eosinophils % (Manual) Nucleated RBC % Seg Neutrophils # Seg Neutrophils # Man Abs Lymphs (Manual) Lymphocytes # (Manual) Monocytes # (Manual) Eosinophils # (Manual) Percent Retic PT INR D-Dimer POC ABG pH POC ABG pCO2 POC ABG pO2 109 H Sodium Potassium Chloride Carbon Dioxide BUN Creatinine Glucose POC Glucose 124 H Lactic Acid Calcium Phosphorus Magnesium Ferritin Total Bilirubin Lactate Dehydrogenase Total Creatine Kinase CK-MB (CK-2) C-Reactive Protein NT-Pro-B Natriuret Pep Total Protein Albumin Triglycerides Urine WBC (Auto) Urine Creatinine Urine Total Protein Vancomycin Trough 45.5 H Random Vancomycin Absolute CD4 Count Absolute CD19 Count Crossmatch 10/04/16 10/04/16 10/05/16 20:13 23:05 01:27 WBC 36.1 H RBC 2.99 L Hgb 7.3 L Hct 23.5 L MCV MCH 25 L RDW 19.6 H Plt Count [place] # Baso # Seg Neutrophils % Seg Neuts % (Manual) Lymphocytes % (Manual) Monocytes % (Manual) Eosinophils % (Manual) Nucleated RBC % Seg Neutrophils # Seg Neutrophils # Man Abs Lymphs (Manual) Lymphocytes # (Manual) Monocytes # (Manual) Eosinophils # (Manual) Percent Retic PT INR D-Dimer POC ABG pH 7.341 L POC ABG pCO2 POC ABG pO2 47 L Sodium Potassium Chloride Carbon Dioxide BUN Creatinine Glucose POC Glucose 127 H Lactic Acid Calcium Phosphorus Magnesium Ferritin Total Bilirubin Lactate Dehydrogenase Total Creatine Kinase CK-MB (CK-2) C-Reactive Protein NT-Pro-B Natriuret Pep Total Protein Albumin Triglycerides Urine WBC (Auto) Urine Creatinine Urine Total Protein Vancomycin Trough Random Vancomycin Absolute CD4 Count Absolute CD19 Count Crossmatch 10/05/16 10/05/16 10/05/16 01:27 03:50 05:00 WBC RBC Hgb Hct MCV MCH RDW Plt Count [place] # Baso # Seg Neutrophils % Seg Neuts % (Manual) Lymphocytes % (Manual) Monocytes % (Manual) Eosinophils % (Manual) Nucleated RBC % Seg Neutrophils # Seg Neutrophils # Man Abs Lymphs (Manual) Lymphocytes # (Manual) Monocytes # (Manual) Eosinophils # (Manual) Percent Retic PT INR D-Dimer POC ABG pH 7.330 L POC ABG pCO2 45.3 H POC ABG pO2 53 L Sodium Potassium Chloride Carbon Dioxide BUN 49 H Creatinine 1.6 H Glucose 112 H POC Glucose Lactic Acid Calcium Phosphorus Magnesium Ferritin Total Bilirubin Lactate Dehydrogenase Total Creatine Kinase CK-MB (CK-2) C-Reactive Protein NT-Pro-B Natriuret Pep Total Protein Albumin Triglycerides Urine WBC (Auto) Urine Creatinine Urine Total Protein Vancomycin Trough Random Vancomycin 43.6 H Absolute CD4 Count Absolute CD19 Count Crossmatch 10/05/16 10/05/16 10/05/16 05:30 12:08 14:00 WBC RBC Hgb Hct MCV MCH RDW Plt Count [place] # Baso # Seg Neutrophils % Seg Neuts % (Manual) Lymphocytes % (Manual) Monocytes % (Manual) Eosinophils % (Manual) Nucleated RBC % Seg Neutrophils # Seg Neutrophils # Man Abs Lymphs (Manual) Lymphocytes # (Manual) Monocytes # (Manual) Eosinophils # (Manual) Percent Retic PT INR D-Dimer POC ABG pH POC ABG pCO2 POC ABG pO2 Sodium Potassium Chloride Carbon Dioxide BUN Creatinine Glucose POC Glucose 141 H 149 H Lactic Acid Calcium Phosphorus Magnesium Ferritin Total Bilirubin Lactate Dehydrogenase Total Creatine Kinase CK-MB (CK-2) C-Reactive Protein 28.40 H NT-Pro-B Natriuret Pep Total Protein Albumin Triglycerides Urine WBC (Auto) Urine Creatinine Urine Total Protein Vancomycin Trough Random Vancomycin Absolute CD4 Count Absolute CD19 Count Crossmatch 10/05/16 10/05/16 10/05/16 15:37 16:41 17:15 WBC RBC Hgb Hct MCV MCH RDW Plt Count [place] # Baso # Seg Neutrophils % Seg Neuts % (Manual) Lymphocytes % (Manual) Monocytes % (Manual) Eosinophils % (Manual) Nucleated RBC % Seg Neutrophils # Seg Neutrophils # Man Abs Lymphs (Manual) Lymphocytes # (Manual) Monocytes # (Manual) Eosinophils # (Manual) Percent Retic PT INR D-Dimer POC ABG pH 7.157 L 7.133 L POC ABG pCO2 75.0 H 80.5 H POC ABG pO2 76 L Sodium Potassium Chloride Carbon Dioxide BUN Creatinine Glucose POC Glucose 151 H Lactic Acid Calcium Phosphorus Magnesium Ferritin Total Bilirubin Lactate Dehydrogenase Total Creatine Kinase CK-MB (CK-2) C-Reactive Protein NT-Pro-B Natriuret Pep Total Protein Albumin Triglycerides Urine WBC (Auto) Urine Creatinine Urine Total Protein Vancomycin Trough Random Vancomycin Absolute CD4 Count Absolute CD19 Count Crossmatch 10/05/16 10/05/16 10/06/16 19:58 23:50 03:57 WBC 45.3 H* RBC 3.08 L Hgb 7.5 L Hct 24.5 L MCV MCH 25 L RDW 20.1 H Plt Count [place] # Baso # Seg Neutrophils % Seg Neuts % (Manual) 24.0 L Lymphocytes % (Manual) 10.0 L Monocytes % (Manual) Eosinophils % (Manual) Nucleated RBC % 36.0 H Seg Neutrophils # Seg Neutrophils # Man 10.9 H Abs Lymphs (Manual) Lymphocytes # (Manual) Monocytes # (Manual) 3.2 H Eosinophils # (Manual) 0.5 H Percent Retic PT INR D-Dimer POC ABG pH 7.198 L POC ABG pCO2 69.5 H POC ABG pO2 Sodium Potassium Chloride Carbon Dioxide BUN Creatinine Glucose POC Glucose 160 H Lactic Acid Calcium Phosphorus Magnesium Ferritin Total Bilirubin Lactate Dehydrogenase Total Creatine Kinase CK-MB (CK-2) C-Reactive Protein NT-Pro-B Natriuret Pep Total Protein Albumin Triglycerides Urine WBC (Auto) Urine Creatinine Urine Total Protein Vancomycin Trough Random Vancomycin Absolute CD4 Count Absolute CD19 Count Crossmatch 10/06/16 10/06/16 10/06/16 03:57 05:38 06:08 WBC RBC Hgb Hct MCV MCH RDW Plt Count [place] # Baso # Seg Neutrophils % Seg Neuts % (Manual) Lymphocytes % (Manual) Monocytes % (Manual) Eosinophils % (Manual) Nucleated RBC % Seg Neutrophils # Seg Neutrophils # Man Abs Lymphs (Manual) Lymphocytes # (Manual) Monocytes # (Manual) Eosinophils # (Manual) Percent Retic PT INR D-Dimer POC ABG pH 7.226 L POC ABG pCO2 63.3 H POC ABG pO2 Sodium 152 H D Potassium Chloride 114.1 H Carbon Dioxide BUN 58 H Creatinine 1.6 H Glucose 123 H POC Glucose 129 H Lactic Acid Calcium Phosphorus Magnesium Ferritin Total Bilirubin Lactate Dehydrogenase Total Creatine Kinase CK-MB (CK-2) C-Reactive Protein NT-Pro-B Natriuret Pep Total Protein Albumin Triglycerides Urine WBC (Auto) Urine Creatinine Urine Total Protein Vancomycin Trough Random Vancomycin Absolute CD4 Count Absolute CD19 Count Crossmatch 10/06/16 10/06/16 10/06/16 11:38 14:31 18:10 WBC RBC Hgb Hct MCV MCH RDW Plt Count [place] # Baso # Seg Neutrophils % Seg Neuts % (Manual) Lymphocytes % (Manual) Monocytes % (Manual) Eosinophils % (Manual) Nucleated RBC % Seg Neutrophils # Seg Neutrophils # Man Abs Lymphs (Manual) Lymphocytes # (Manual) Monocytes # (Manual) Eosinophils # (Manual) Percent Retic PT INR D-Dimer POC ABG pH 7.345 L POC ABG pCO2 49.5 H POC ABG pO2 60 L Sodium Potassium Chloride Carbon Dioxide BUN Creatinine Glucose POC Glucose 126 H 196 H Lactic Acid Calcium Phosphorus Magnesium Ferritin Total Bilirubin Lactate Dehydrogenase Total Creatine Kinase CK-MB (CK-2) C-Reactive Protein NT-Pro-B Natriuret Pep Total Protein Albumin Triglycerides Urine WBC (Auto) Urine Creatinine Urine Total Protein Vancomycin Trough Random Vancomycin Absolute CD4 Count Absolute CD19 Count Crossmatch 10/06/16 10/07/16 10/07/16 21:07 00:55 00:55 WBC 55.1 H* RBC 3.06 L Hgb 7.5 L Hct 24.4 L MCV MCH 24 L RDW 20.7 H Plt Count [place] # Baso # Seg Neutrophils % Seg Neuts % (Manual) Lymphocytes % (Manual) 8.0 L Monocytes % (Manual) 9.0 H Eosinophils % (Manual) Nucleated RBC % 30.0 H Seg Neutrophils # Seg Neutrophils # Man 27.0 H Abs Lymphs (Manual) Lymphocytes # (Manual) Monocytes # (Manual) 5.0 H Eosinophils # (Manual) 0.6 H Percent Retic PT INR D-Dimer POC ABG pH 7.317 L POC ABG pCO2 55.2 H POC ABG pO2 59 L Sodium 148 H Potassium Chloride 110.2 H Carbon Dioxide BUN 56 H Creatinine 1.7 H Glucose 211 H POC Glucose Lactic Acid Calcium Phosphorus Magnesium Ferritin Total Bilirubin Lactate Dehydrogenase Total Creatine Kinase CK-MB (CK-2) C-Reactive Protein NT-Pro-B Natriuret Pep Total Protein Albumin Triglycerides Urine WBC (Auto) Urine Creatinine Urine Total Protein Vancomycin Trough Random Vancomycin Absolute CD4 Count Absolute CD19 Count Crossmatch 10/07/16 10/07/16 10/07/16 01:01 05:20 06:31 WBC RBC Hgb Hct MCV MCH RDW Plt Count [place] # Baso # Seg Neutrophils % Seg Neuts % (Manual) Lymphocytes % (Manual) Monocytes % (Manual) Eosinophils % (Manual) Nucleated RBC % Seg Neutrophils # Seg Neutrophils # Man Abs Lymphs (Manual) Lymphocytes # (Manual) Monocytes # (Manual) Eosinophils # (Manual) Percent Retic PT INR D-Dimer POC ABG pH 7.310 L POC ABG pCO2 55.6 H POC ABG pO2 65 L Sodium Potassium Chloride Carbon Dioxide BUN Creatinine Glucose POC Glucose 249 H 235 H Lactic Acid Calcium Phosphorus Magnesium Ferritin Total Bilirubin Lactate Dehydrogenase Total Creatine Kinase CK-MB (CK-2) C-Reactive Protein NT-Pro-B Natriuret Pep Total Protein Albumin Triglycerides Urine WBC (Auto) Urine Creatinine Urine Total Protein Vancomycin Trough Random Vancomycin Absolute CD4 Count Absolute CD19 Count Crossmatch 10/07/16 10/07/16 10/07/16 12:00 18:04 23:48 WBC RBC Hgb Hct MCV MCH RDW Plt Count [place] # Baso # Seg Neutrophils % Seg Neuts % (Manual) Lymphocytes % (Manual) Monocytes % (Manual) Eosinophils % (Manual) Nucleated RBC % Seg Neutrophils # Seg Neutrophils # Man Abs Lymphs (Manual) Lymphocytes # (Manual) Monocytes # (Manual) Eosinophils # (Manual) Percent Retic PT INR D-Dimer POC ABG pH POC ABG pCO2 POC ABG pO2 Sodium Potassium Chloride Carbon Dioxide BUN Creatinine Glucose POC Glucose 210 H 201 H 163 H Lactic Acid Calcium Phosphorus Magnesium Ferritin Total Bilirubin Lactate Dehydrogenase Total Creatine Kinase CK-MB (CK-2) C-Reactive Protein NT-Pro-B Natriuret Pep Total Protein Albumin Triglycerides Urine WBC (Auto) Urine Creatinine Urine Total Protein Vancomycin Trough Random Vancomycin Absolute CD4 Count Absolute CD19 Count Crossmatch 10/08/16 10/08/16 10/08/16 04:00 04:00 04:10 WBC 58.0 H* RBC 2.95 L Hgb 7.3 L Hct 23.4 L MCV MCH 25 L RDW 20.8 H Plt Count [place] # Baso # Seg Neutrophils % Seg Neuts % (Manual) 75.0 H Lymphocytes % (Manual) 11.0 L Monocytes % (Manual) 8.0 H Eosinophils % (Manual) Nucleated RBC % 30.0 H Seg Neutrophils # Seg Neutrophils # Man 43.5 H Abs Lymphs (Manual) Lymphocytes # (Manual) 6.4 H Monocytes # (Manual) 4.6 H Eosinophils # (Manual) 0.6 H Percent Retic PT INR D-Dimer POC ABG pH POC ABG pCO2 POC ABG pO2 Sodium 152 H Potassium Chloride 111.4 H Carbon Dioxide BUN 59 H Creatinine 1.6 H Glucose 190 H POC Glucose 214 H Lactic Acid Calcium Phosphorus Magnesium Ferritin Total Bilirubin Lactate Dehydrogenase Total Creatine Kinase CK-MB (CK-2) C-Reactive Protein NT-Pro-B Natriuret Pep Total Protein Albumin Triglycerides Urine WBC (Auto) Urine Creatinine Urine Total Protein Vancomycin Trough Random Vancomycin Absolute CD4 Count Absolute CD19 Count Crossmatch 10/08/16 10/08/16 10/08/16 04:46 12:11 18:35 WBC RBC Hgb Hct MCV MCH RDW Plt Count [place] # Baso # Seg Neutrophils % Seg Neuts % (Manual) Lymphocytes % (Manual) Monocytes % (Manual) Eosinophils % (Manual) Nucleated RBC % Seg Neutrophils # Seg Neutrophils # Man Abs Lymphs (Manual) Lymphocytes # (Manual) Monocytes # (Manual) Eosinophils # (Manual) Percent Retic PT INR D-Dimer POC ABG pH POC ABG pCO2 POC ABG pO2 65 L Sodium Potassium Chloride Carbon Dioxide BUN Creatinine Glucose POC Glucose 199 H 187 H Lactic Acid Calcium Phosphorus Magnesium Ferritin Total Bilirubin Lactate Dehydrogenase Total Creatine Kinase CK-MB (CK-2) C-Reactive Protein NT-Pro-B Natriuret Pep Total Protein Albumin Triglycerides Urine WBC (Auto) Urine Creatinine Urine Total Protein Vancomycin Trough Random Vancomycin Absolute CD4 Count Absolute CD19 Count Crossmatch 10/08/16 10/09/16 10/09/16 23:38 04:43 05:38 WBC RBC Hgb Hct MCV MCH RDW Plt Count [place] # Baso # Seg Neutrophils % Seg Neuts % (Manual) Lymphocytes % (Manual) Monocytes % (Manual) Eosinophils % (Manual) Nucleated RBC % Seg Neutrophils # Seg Neutrophils # Man Abs Lymphs (Manual) Lymphocytes # (Manual) Monocytes # (Manual) Eosinophils # (Manual) Percent Retic PT INR D-Dimer POC ABG pH POC ABG pCO2 45.4 H POC ABG pO2 52 L Sodium Potassium Chloride Carbon Dioxide BUN Creatinine Glucose POC Glucose 202 H 182 H Lactic Acid Calcium Phosphorus Magnesium Ferritin Total Bilirubin Lactate Dehydrogenase Total Creatine Kinase CK-MB (CK-2) C-Reactive Protein NT-Pro-B Natriuret Pep Total Protein Albumin Triglycerides Urine WBC (Auto) Urine Creatinine Urine Total Protein Vancomycin Trough Random Vancomycin Absolute CD4 Count Absolute CD19 Count Crossmatch 10/09/16 10/09/16 10/09/16 07:40 07:40 10:00 WBC 37.3 H RBC 2.55 L Hgb 6.4 L Hct 20.7 L MCV MCH 25 L RDW 20.6 H Plt Count [place] # Baso # Seg Neutrophils % Seg Neuts % (Manual) Lymphocytes % (Manual) Monocytes % (Manual) Eosinophils % (Manual) Nucleated RBC % Seg Neutrophils # Seg Neutrophils # Man Abs Lymphs (Manual) Lymphocytes # (Manual) Monocytes # (Manual) Eosinophils # (Manual) Percent Retic PT INR D-Dimer POC ABG pH POC ABG pCO2 POC ABG pO2 Sodium 153 H Potassium 3.3 L Chloride 112.7 H Carbon Dioxide BUN 62 H Creatinine 1.7 H Glucose 146 H POC Glucose Lactic Acid Calcium Phosphorus Magnesium Ferritin Total Bilirubin Lactate Dehydrogenase Total Creatine Kinase CK-MB (CK-2) C-Reactive Protein NT-Pro-B Natriuret Pep Total Protein Albumin Triglycerides Urine WBC (Auto) Urine Creatinine Urine Total Protein Vancomycin Trough Random Vancomycin Absolute CD4 Count Absolute CD19 Count Crossmatch See Detail 10/09/16 10/09/16 10/10/16 12:06 17:08 00:01 WBC RBC Hgb Hct MCV MCH RDW Plt Count [place] # Baso # Seg Neutrophils % Seg Neuts % (Manual) Lymphocytes % (Manual) Monocytes % (Manual) Eosinophils % (Manual) Nucleated RBC % Seg Neutrophils # Seg Neutrophils # Man Abs Lymphs (Manual) Lymphocytes # (Manual) Monocytes # (Manual) Eosinophils # (Manual) Percent Retic PT INR D-Dimer POC ABG pH POC ABG pCO2 POC ABG pO2 Sodium Potassium Chloride Carbon Dioxide BUN Creatinine Glucose POC Glucose 214 H 152 H 189 H Lactic Acid Calcium Phosphorus Magnesium Ferritin Total Bilirubin Lactate Dehydrogenase Total Creatine Kinase CK-MB (CK-2) C-Reactive Protein NT-Pro-B Natriuret Pep Total Protein Albumin Triglycerides Urine WBC (Auto) Urine Creatinine Urine Total Protein Vancomycin Trough Random Vancomycin Absolute CD4 Count Absolute CD19 Count Crossmatch 10/10/16 10/10/16 10/10/16 04:25 05:28 06:00 WBC RBC Hgb Hct MCV MCH RDW Plt Count [place] # Baso # Seg Neutrophils % Seg Neuts % (Manual) Lymphocytes % (Manual) Monocytes % (Manual) Eosinophils % (Manual) Nucleated RBC % Seg Neutrophils # Seg Neutrophils # Man Abs Lymphs (Manual) Lymphocytes # (Manual) Monocytes # (Manual) Eosinophils # (Manual) Percent Retic PT INR D-Dimer POC ABG pH POC ABG pCO2 58.3 H POC ABG pO2 68 L Sodium Potassium Chloride Carbon Dioxide BUN Creatinine Glucose POC Glucose 155 H Lactic Acid Calcium Phosphorus Magnesium Ferritin Total Bilirubin Lactate Dehydrogenase Total Creatine Kinase CK-MB (CK-2) C-Reactive Protein NT-Pro-B Natriuret Pep Total Protein Albumin Triglycerides 407 H Urine WBC (Auto) Urine Creatinine Urine Total Protein Vancomycin Trough Random Vancomycin Absolute CD4 Count Absolute CD19 Count Crossmatch 10/10/16 10/10/16 10/10/16 06:00 06:00 06:00 WBC 38.5 H RBC 3.57 L Hgb 9.3 L Hct 30.1 L D MCV MCH 26 L RDW 22.0 H Plt Count 464 H [place] # Baso # Seg Neutrophils % Seg Neuts % (Manual) 81.0 H Lymphocytes % (Manual) 9.0 L Monocytes % (Manual) Eosinophils % (Manual) Nucleated RBC % 84.0 H Seg Neutrophils # Seg Neutrophils # Man 31.2 H Abs Lymphs (Manual) Lymphocytes # (Manual) Monocytes # (Manual) Eosinophils # (Manual) 1.2 H Percent Retic PT INR D-Dimer POC ABG pH POC ABG pCO2 POC ABG pO2 Sodium 153 H Potassium Chloride 108.3 H Carbon Dioxide 31 H BUN 62 H Creatinine 1.5 H Glucose 160 H POC Glucose Lactic Acid Calcium Phosphorus Magnesium Ferritin 782.0 H Total Bilirubin Lactate Dehydrogenase Total Creatine Kinase CK-MB (CK-2) C-Reactive Protein NT-Pro-B Natriuret Pep Total Protein Albumin Triglycerides Urine WBC (Auto) Urine Creatinine Urine Total Protein Vancomycin Trough Random Vancomycin Absolute CD4 Count Absolute CD19 Count Crossmatch 10/10/16 10/10/16 10/10/16 11:29 13:03 13:03 WBC RBC Hgb Hct MCV MCH RDW Plt Count [place] # Baso # Seg Neutrophils % Seg Neuts % (Manual) Lymphocytes % (Manual) Monocytes % (Manual) Eosinophils % (Manual) Nucleated RBC % Seg Neutrophils # Seg Neutrophils # Man Abs Lymphs (Manual) 3936 H Lymphocytes # (Manual) Monocytes # (Manual) Eosinophils # (Manual) Percent Retic PT 17.6 H INR 1.45 H D-Dimer POC ABG pH POC ABG pCO2 POC ABG pO2 Sodium Potassium Chloride Carbon Dioxide BUN Creatinine Glucose POC Glucose 177 H Lactic Acid Calcium Phosphorus Magnesium Ferritin Total Bilirubin Lactate Dehydrogenase Total Creatine Kinase CK-MB (CK-2) C-Reactive Protein NT-Pro-B Natriuret Pep Total Protein Albumin Triglycerides Urine WBC (Auto) Urine Creatinine Urine Total Protein Vancomycin Trough Random Vancomycin Absolute CD4 Count 2178 H Absolute CD19 Count 824 H Crossmatch 10/10/16 10/11/16 10/11/16 17:38 00:04 05:35 WBC RBC Hgb Hct MCV MCH RDW Plt Count [place] # Baso # Seg Neutrophils % Seg Neuts % (Manual) Lymphocytes % (Manual) Monocytes % (Manual) Eosinophils % (Manual) Nucleated RBC % Seg Neutrophils # Seg Neutrophils # Man Abs Lymphs (Manual) Lymphocytes # (Manual) Monocytes # (Manual) Eosinophils # (Manual) Percent Retic PT INR D-Dimer POC ABG pH POC ABG pCO2 56.6 H POC ABG pO2 63 L Sodium Potassium Chloride Carbon Dioxide BUN Creatinine Glucose POC Glucose 173 H 155 H Lactic Acid Calcium Phosphorus Magnesium Ferritin Total Bilirubin Lactate Dehydrogenase Total Creatine Kinase CK-MB (CK-2) C-Reactive Protein NT-Pro-B Natriuret Pep Total Protein Albumin Triglycerides Urine WBC (Auto) Urine Creatinine Urine Total Protein Vancomycin Trough Random Vancomycin Absolute CD4 Count Absolute CD19 Count Crossmatch 10/11/16 10/11/1617 06:01 11:43 12:54 WBC 31.8 H RBC Hgb Hct MCV MCH RDW 17.8 H Plt Count [place] # Baso # Seg Neutrophils % Seg Neuts % (Manual) 84.0 H Lymphocytes % (Manual) 9.0 L Monocytes % (Manual) Eosinophils % (Manual) Nucleated RBC % 28.0 H Seg Neutrophils # Seg Neutrophils # Man 27.1 H Abs Lymphs (Manual) Lymphocytes # (Manual) Monocytes # (Manual) 1.6 H Eosinophils # (Manual) Percent Retic PT INR D-Dimer POC ABG pH POC ABG pCO2 POC ABG pO2 Sodium Potassium Chloride Carbon Dioxide BUN Creatinine Glucose POC Glucose 231 H 185 H Lactic Acid Calcium Phosphorus Magnesium Ferritin Total Bilirubin Lactate Dehydrogenase Total Creatine Kinase CK-MB (CK-2) C-Reactive Protein NT-Pro-B Natriuret Pep Total Protein Albumin Triglycerides Urine WBC (Auto) Urine Creatinine Urine Total Protein Vancomycin Trough Random Vancomycin Absolute CD4 Count Absolute CD19 Count Crossmatch 10/11/16 10/11/16 10/11/16 12:54 14:10 18:02 WBC RBC Hgb Hct MCV MCH RDW Plt Count [place] # Baso # Seg Neutrophils % Seg Neuts % (Manual) Lymphocytes % (Manual) Monocytes % (Manual) Eosinophils % (Manual) Nucleated RBC % Seg Neutrophils # Seg Neutrophils # Man Abs Lymphs (Manual) Lymphocytes # (Manual) Monocytes # (Manual) Eosinophils # (Manual) Percent Retic PT INR D-Dimer POC ABG pH 7.311 L POC ABG pCO2 71.4 H POC ABG pO2 59 L Sodium Potassium Chloride 97.1 L Carbon Dioxide BUN 57 H Creatinine 1.6 H Glucose 369 H POC Glucose 206 H Lactic Acid Calcium 8.2 L Phosphorus Magnesium Ferritin Total Bilirubin Lactate Dehydrogenase Total Creatine Kinase CK-MB (CK-2) C-Reactive Protein NT-Pro-B Natriuret Pep Total Protein Albumin Triglycerides Urine WBC (Auto) Urine Creatinine Urine Total Protein Vancomycin Trough Random Vancomycin Absolute CD4 Count Absolute CD19 Count Crossmatch 10/11/16 10/11/16 10/12/16 20:57 21:23 00:43 WBC RBC Hgb Hct MCV MCH RDW Plt Count [place] # Baso # Seg Neutrophils % Seg Neuts % (Manual) Lymphocytes % (Manual) Monocytes % (Manual) Eosinophils % (Manual) Nucleated RBC % Seg Neutrophils # Seg Neutrophils # Man Abs Lymphs (Manual) Lymphocytes # (Manual) Monocytes # (Manual) Eosinophils # (Manual) Percent Retic PT INR D-Dimer POC ABG pH 7.242 L POC ABG pCO2 88.4 H POC ABG pO2 57 L Sodium Potassium Chloride Carbon Dioxide BUN Creatinine Glucose POC Glucose 212 H Lactic Acid Calcium Phosphorus Magnesium Ferritin Total Bilirubin Lactate Dehydrogenase Total Creatine Kinase CK-MB (CK-2) C-Reactive Protein 3.00 H NT-Pro-B Natriuret Pep Total Protein Albumin Triglycerides Urine WBC (Auto) Urine Creatinine Urine Total Protein Vancomycin Trough Random Vancomycin Absolute CD4 Count Absolute CD19 Count Crossmatch 10/12/16 10/12/16 10/12/16 05:49 06:03 06:57 WBC 37.0 H RBC Hgb Hct MCV MCH RDW 18.0 H Plt Count [place] # 2.0 H Baso # 0.2 H Seg Neutrophils % 86.7 H Seg Neuts % (Manual) 91.5 H Lymphocytes % (Manual) 6.0 L Monocytes % (Manual) Eosinophils % (Manual) Nucleated RBC % 15.5 H Seg Neutrophils # 30.6 H Seg Neutrophils # Man 33.9 H Abs Lymphs (Manual) Lymphocytes # (Manual) Monocytes # (Manual) Eosinophils # (Manual) Percent Retic PT INR D-Dimer POC ABG pH 7.289 L POC ABG pCO2 82.4 H POC ABG pO2 65 L Sodium Potassium Chloride Carbon Dioxide BUN Creatinine Glucose POC Glucose 230 H Lactic Acid Calcium Phosphorus Magnesium Ferritin Total Bilirubin Lactate Dehydrogenase Total Creatine Kinase CK-MB (CK-2) C-Reactive Protein NT-Pro-B Natriuret Pep Total Protein Albumin Triglycerides Urine WBC (Auto) Urine Creatinine Urine Total Protein Vancomycin Trough Random Vancomycin Absolute CD4 Count Absolute CD19 Count Crossmatch 10/12/16 10/12/16 10/12/16 06:57 11:59 17:00 WBC RBC Hgb Hct MCV MCH RDW Plt Count [place] # Baso # Seg Neutrophils % Seg Neuts % (Manual) Lymphocytes % (Manual) Monocytes % (Manual) Eosinophils % (Manual) Nucleated RBC % Seg Neutrophils # Seg Neutrophils # Man Abs Lymphs (Manual) Lymphocytes # (Manual) Monocytes # (Manual) Eosinophils # (Manual) Percent Retic PT INR D-Dimer POC ABG pH POC ABG pCO2 POC ABG pO2 Sodium 151 H D 130 L D Potassium Chloride Carbon Dioxide 32 H BUN 62 H Creatinine 1.6 H Glucose 231 H POC Glucose 222 H Lactic Acid Calcium Phosphorus 4.90 H Magnesium Ferritin Total Bilirubin Lactate Dehydrogenase Total Creatine Kinase CK-MB (CK-2) C-Reactive Protein NT-Pro-B Natriuret Pep Total Protein Albumin Triglycerides Urine WBC (Auto) Urine Creatinine Urine Total Protein Vancomycin Trough Random Vancomycin Absolute CD4 Count Absolute CD19 Count Crossmatch 10/12/16 10/12/16 10/12/16 17:41 22:04 23:25 WBC RBC Hgb Hct MCV MCH RDW Plt Count [place] # Baso # Seg Neutrophils % Seg Neuts % (Manual) Lymphocytes % (Manual) Monocytes % (Manual) Eosinophils % (Manual) Nucleated RBC % Seg Neutrophils # Seg Neutrophils # Man Abs Lymphs (Manual) Lymphocytes # (Manual) Monocytes # (Manual) Eosinophils # (Manual) Percent Retic PT INR D-Dimer POC ABG pH 7.264 L POC ABG pCO2 89.1 H POC ABG pO2 62 L Sodium Potassium Chloride Carbon Dioxide BUN Creatinine Glucose POC Glucose 223 H 160 H Lactic Acid Calcium Phosphorus Magnesium Ferritin Total Bilirubin Lactate Dehydrogenase Total Creatine Kinase CK-MB (CK-2) C-Reactive Protein NT-Pro-B Natriuret Pep Total Protein Albumin Triglycerides Urine WBC (Auto) Urine Creatinine Urine Total Protein Vancomycin Trough Random Vancomycin Absolute CD4 Count Absolute CD19 Count Crossmatch 10/13/16 10/13/16 10/13/16 05:30 06:00 06:00 WBC 25.9 H RBC Hgb Hct MCV MCH RDW 18.1 H Plt Count [place] # Baso # Seg Neutrophils % Seg Neuts % (Manual) 85.0 H Lymphocytes % (Manual) 9.0 L Monocytes % (Manual) Eosinophils % (Manual) Nucleated RBC % 6.0 H Seg Neutrophils # Seg Neutrophils # Man 22.0 H Abs Lymphs (Manual) Lymphocytes # (Manual) Monocytes # (Manual) 1.4 H Eosinophils # (Manual) Percent Retic PT INR D-Dimer POC ABG pH 7.281 L POC ABG pCO2 89.6 H POC ABG pO2 63 L Sodium 148 H D Potassium Chloride Carbon Dioxide 36 H BUN 58 H Creatinine 1.3 H Glucose 189 H POC Glucose Lactic Acid Calcium Phosphorus Magnesium Ferritin Total Bilirubin Lactate Dehydrogenase Total Creatine Kinase CK-MB (CK-2) C-Reactive Protein NT-Pro-B Natriuret Pep Total Protein Albumin Triglycerides Urine WBC (Auto) Urine Creatinine Urine Total Protein Vancomycin Trough Random Vancomycin Absolute CD4 Count Absolute CD19 Count Crossmatch 10/13/16 10/13/16 10/13/16 06:20 11:10 17:26 WBC RBC Hgb Hct MCV MCH RDW Plt Count [place] # Baso # Seg Neutrophils % Seg Neuts % (Manual) Lymphocytes % (Manual) Monocytes % (Manual) Eosinophils % (Manual) Nucleated RBC % Seg Neutrophils # Seg Neutrophils # Man Abs Lymphs (Manual) Lymphocytes # (Manual) Monocytes # (Manual) Eosinophils # (Manual) Percent Retic PT INR D-Dimer POC ABG pH POC ABG pCO2 POC ABG pO2 Sodium Potassium Chloride Carbon Dioxide BUN Creatinine Glucose POC Glucose 192 H 198 H 162 H Lactic Acid Calcium Phosphorus Magnesium Ferritin Total Bilirubin Lactate Dehydrogenase Total Creatine Kinase CK-MB (CK-2) C-Reactive Protein NT-Pro-B Natriuret Pep Total Protein Albumin Triglycerides Urine WBC (Auto) Urine Creatinine Urine Total Protein Vancomycin Trough Random Vancomycin Absolute CD4 Count Absolute CD19 Count Crossmatch 10/13/16 10/13/16 10/13/16 20:40 20:57 23:33 WBC RBC Hgb Hct MCV MCH RDW Plt Count [place] # Baso # Seg Neutrophils % Seg Neuts % (Manual) Lymphocytes % (Manual) Monocytes % (Manual) Eosinophils % (Manual) Nucleated RBC % Seg Neutrophils # Seg Neutrophils # Man Abs Lymphs (Manual) Lymphocytes # (Manual) Monocytes # (Manual) Eosinophils # (Manual) Percent Retic PT INR D-Dimer POC ABG pH 7.201 L 7.455 H POC ABG pCO2 111.2 H 54.2 H POC ABG pO2 45 L 57 L Sodium 148 H Potassium Chloride Carbon Dioxide BUN Creatinine Glucose POC Glucose Lactic Acid Calcium Phosphorus Magnesium Ferritin Total Bilirubin Lactate Dehydrogenase Total Creatine Kinase CK-MB (CK-2) C-Reactive Protein NT-Pro-B Natriuret Pep Total Protein Albumin Triglycerides Urine WBC (Auto) Urine Creatinine Urine Total Protein Vancomycin Trough Random Vancomycin Absolute CD4 Count Absolute CD19 Count Crossmatch 10/14/16 10/14/16 10/14/16 00:48 04:12 05:30 WBC 23.1 H RBC 3.49 L Hgb 9.9 L Hct MCV MCH RDW 16.9 H Plt Count [place] # Baso # Seg Neutrophils % Seg Neuts % (Manual) 82.0 H Lymphocytes % (Manual) 9.0 L Monocytes % (Manual) Eosinophils % (Manual) Nucleated RBC % 2.0 H Seg Neutrophils # Seg Neutrophils # Man 18.9 H Abs Lymphs (Manual) Lymphocytes # (Manual) Monocytes # (Manual) 1.4 H Eosinophils # (Manual) Percent Retic PT INR D-Dimer POC ABG pH 7.497 H POC ABG pCO2 49.4 H POC ABG pO2 60 L Sodium Potassium Chloride Carbon Dioxide BUN Creatinine Glucose POC Glucose 147 H Lactic Acid Calcium Phosphorus Magnesium Ferritin Total Bilirubin Lactate Dehydrogenase Total Creatine Kinase CK-MB (CK-2) C-Reactive Protein NT-Pro-B Natriuret Pep Total Protein Albumin Triglycerides Urine WBC (Auto) Urine Creatinine Urine Total Protein Vancomycin Trough Random Vancomycin Absolute CD4 Count Absolute CD19 Count Crossmatch 10/14/16 10/14/16 10/14/16 05:30 05:30 05:53 WBC RBC Hgb Hct MCV MCH RDW Plt Count [place] # Baso # Seg Neutrophils % Seg Neuts % (Manual) Lymphocytes % (Manual) Monocytes % (Manual) Eosinophils % (Manual) Nucleated RBC % Seg Neutrophils # Seg Neutrophils # Man Abs Lymphs (Manual) Lymphocytes # (Manual) Monocytes # (Manual) Eosinophils # (Manual) Percent Retic PT INR D-Dimer POC ABG pH POC ABG pCO2 POC ABG pO2 Sodium 146 H Potassium Chloride Carbon Dioxide 35 H BUN 56 H Creatinine 1.3 H Glucose 155 H POC Glucose 156 H Lactic Acid Calcium Phosphorus 1.90 L D Magnesium 2.90 H Ferritin Total Bilirubin Lactate Dehydrogenase Total Creatine Kinase CK-MB (CK-2) C-Reactive Protein NT-Pro-B Natriuret Pep Total Protein Albumin Triglycerides Urine WBC (Auto) Urine Creatinine Urine Total Protein Vancomycin Trough Random Vancomycin Absolute CD4 Count Absolute CD19 Count Crossmatch 10/14/16 10/14/16 10/14/16 12:05 14:34 17:33 WBC RBC Hgb Hct MCV MCH RDW Plt Count [place] # Baso # Seg Neutrophils % Seg Neuts % (Manual) Lymphocytes % (Manual) Monocytes % (Manual) Eosinophils % (Manual) Nucleated RBC % Seg Neutrophils # Seg Neutrophils # Man Abs Lymphs (Manual) Lymphocytes # (Manual) Monocytes # (Manual) Eosinophils # (Manual) Percent Retic PT INR D-Dimer POC ABG pH POC ABG pCO2 57.4 H POC ABG pO2 177 H Sodium Potassium Chloride Carbon Dioxide BUN Creatinine Glucose POC Glucose 145 H 172 H Lactic Acid Calcium Phosphorus Magnesium Ferritin Total Bilirubin Lactate Dehydrogenase Total Creatine Kinase CK-MB (CK-2) C-Reactive Protein NT-Pro-B Natriuret Pep Total Protein Albumin Triglycerides Urine WBC (Auto) Urine Creatinine Urine Total Protein Vancomycin Trough Random Vancomycin Absolute CD4 Count Absolute CD19 Count Crossmatch 10/14/16 10/14/16 10/15/16 21:57 23:31 05:10 WBC 23.9 H RBC 3.33 L Hgb 9.5 L Hct 29.7 L MCV MCH RDW 16.8 H Plt Count [place] # Baso # Seg Neutrophils % Seg Neuts % (Manual) Lymphocytes % (Manual) Monocytes % (Manual) Eosinophils % (Manual) Nucleated RBC % 4.0 H Seg Neutrophils # Seg Neutrophils # Man 15.3 H Abs Lymphs (Manual) Lymphocytes # (Manual) Monocytes # (Manual) 1.7 H Eosinophils # (Manual) 0.5 H Percent Retic PT INR D-Dimer POC ABG pH POC ABG pCO2 53.6 H POC ABG pO2 60 L Sodium Potassium Chloride Carbon Dioxide BUN Creatinine Glucose POC Glucose 201 H Lactic Acid Calcium Phosphorus Magnesium Ferritin Total Bilirubin Lactate Dehydrogenase Total Creatine Kinase CK-MB (CK-2) C-Reactive Protein NT-Pro-B Natriuret Pep Total Protein Albumin Triglycerides Urine WBC (Auto) Urine Creatinine Urine Total Protein Vancomycin Trough Random Vancomycin Absolute CD4 Count Absolute CD19 Count Crossmatch 10/15/16 10/15/16 10/15/16 05:10 05:10 05:40 WBC RBC Hgb Hct MCV MCH RDW Plt Count [place] # Baso # Seg Neutrophils % Seg Neuts % (Manual) Lymphocytes % (Manual) Monocytes % (Manual) Eosinophils % (Manual) Nucleated RBC % Seg Neutrophils # Seg Neutrophils # Man Abs Lymphs (Manual) Lymphocytes # (Manual) Monocytes # (Manual) Eosinophils # (Manual) Percent Retic PT INR D-Dimer POC ABG pH POC ABG pCO2 POC ABG pO2 Sodium Potassium 3.5 L Chloride Carbon Dioxide 33 H BUN 61 H Creatinine Glucose 127 H POC Glucose 145 H Lactic Acid Calcium 8.2 L Phosphorus 4.90 H D Magnesium 2.90 H Ferritin Total Bilirubin Lactate Dehydrogenase Total Creatine Kinase CK-MB (CK-2) C-Reactive Protein NT-Pro-B Natriuret Pep Total Protein Albumin Triglycerides Urine WBC (Auto) Urine Creatinine Urine Total Protein Vancomycin Trough Random Vancomycin Absolute CD4 Count Absolute CD19 Count Crossmatch 10/15/16 10/15/16 10/15/16 06:17 11:09 17:50 WBC RBC Hgb Hct MCV MCH RDW Plt Count [place] # Baso # Seg Neutrophils % Seg Neuts % (Manual) Lymphocytes % (Manual) Monocytes % (Manual) Eosinophils % (Manual) Nucleated RBC % Seg Neutrophils # Seg Neutrophils # Man Abs Lymphs (Manual) Lymphocytes # (Manual) Monocytes # (Manual) Eosinophils # (Manual) Percent Retic PT INR D-Dimer POC ABG pH POC ABG pCO2 65.2 H POC ABG pO2 Sodium Potassium Chloride Carbon Dioxide BUN Creatinine Glucose POC Glucose 169 H 210 H Lactic Acid Calcium Phosphorus Magnesium Ferritin Total Bilirubin Lactate Dehydrogenase Total Creatine Kinase CK-MB (CK-2) C-Reactive Protein NT-Pro-B Natriuret Pep Total Protein Albumin Triglycerides Urine WBC (Auto) Urine Creatinine Urine Total Protein Vancomycin Trough Random Vancomycin Absolute CD4 Count Absolute CD19 Count Crossmatch 10/15/16 10/16/16 10/16/16 23:39 05:51 06:07 WBC RBC Hgb Hct MCV MCH RDW Plt Count [place] # Baso # Seg Neutrophils % Seg Neuts % (Manual) Lymphocytes % (Manual) Monocytes % (Manual) Eosinophils % (Manual) Nucleated RBC % Seg Neutrophils # Seg Neutrophils # Man Abs Lymphs (Manual) Lymphocytes # (Manual) Monocytes # (Manual) Eosinophils # (Manual) Percent Retic PT INR D-Dimer POC ABG pH POC ABG pCO2 56.8 H POC ABG pO2 50 L Sodium Potassium Chloride Carbon Dioxide BUN Creatinine Glucose POC Glucose 291 H 216 H Lactic Acid Calcium Phosphorus Magnesium Ferritin Total Bilirubin Lactate Dehydrogenase Total Creatine Kinase CK-MB (CK-2) C-Reactive Protein NT-Pro-B Natriuret Pep Total Protein Albumin Triglycerides Urine WBC (Auto) Urine Creatinine Urine Total Protein Vancomycin Trough Random Vancomycin Absolute CD4 Count Absolute CD19 Count Crossmatch 10/16/16 10/16/16 10/16/16 11:52 15:00 15:00 WBC 22.2 H RBC 3.13 L Hgb 9.0 L Hct 28.1 L MCV MCH RDW 15.9 H Plt Count [place] # Baso # Seg Neutrophils % Seg Neuts % (Manual) 96.0 H Lymphocytes % (Manual) 3.0 L Monocytes % (Manual) Eosinophils % (Manual) Nucleated RBC % 1.0 H Seg Neutrophils # Seg Neutrophils # Man 21.3 H Abs Lymphs (Manual) Lymphocytes # (Manual) 0.7 L Monocytes # (Manual) Eosinophils # (Manual) Percent Retic PT INR D-Dimer POC ABG pH POC ABG pCO2 POC ABG pO2 Sodium 146 H Potassium Chloride Carbon Dioxide 32 H BUN 55 H Creatinine Glucose 234 H POC Glucose 237 H Lactic Acid Calcium Phosphorus Magnesium Ferritin Total Bilirubin Lactate Dehydrogenase Total Creatine Kinase CK-MB (CK-2) C-Reactive Protein NT-Pro-B Natriuret Pep Total Protein Albumin Triglycerides Urine WBC (Auto) Urine Creatinine Urine Total Protein Vancomycin Trough Random Vancomycin Absolute CD4 Count Absolute CD19 Count Crossmatch 10/16/16 10/17/16 10/17/16 17:28 00:03 03:56 WBC 21.4 H RBC 3.18 L Hgb 8.9 L Hct 28.0 L MCV MCH RDW 16.0 H Plt Count [place] # Baso # Seg Neutrophils % Seg Neuts % (Manual) 98.0 H Lymphocytes % (Manual) 2.0 L Monocytes % (Manual) Eosinophils % (Manual) Nucleated RBC % 1.0 H Seg Neutrophils # 20.2 H Seg Neutrophils # Man 21.0 H Abs Lymphs (Manual) Lymphocytes # (Manual) 0.4 L Monocytes # (Manual) Eosinophils # (Manual) Percent Retic PT INR D-Dimer POC ABG pH POC ABG pCO2 POC ABG pO2 Sodium Potassium Chloride Carbon Dioxide BUN Creatinine Glucose POC Glucose 258 H 192 H Lactic Acid Calcium Phosphorus Magnesium Ferritin Total Bilirubin Lactate Dehydrogenase Total Creatine Kinase CK-MB (CK-2) C-Reactive Protein NT-Pro-B Natriuret Pep Total Protein Albumin Triglycerides Urine WBC (Auto) Urine Creatinine Urine Total Protein Vancomycin Trough Random Vancomycin Absolute CD4 Count Absolute CD19 Count Crossmatch 10/17/16 10/17/16 10/17/16 05:00 06:56 12:27 WBC RBC Hgb Hct MCV MCH RDW Plt Count [place] # Baso # Seg Neutrophils % Seg Neuts % (Manual) Lymphocytes % (Manual) Monocytes % (Manual) Eosinophils % (Manual) Nucleated RBC % Seg Neutrophils # Seg Neutrophils # Man Abs Lymphs (Manual) Lymphocytes # (Manual) Monocytes # (Manual) Eosinophils # (Manual) Percent Retic PT INR D-Dimer POC ABG pH POC ABG pCO2 64.3 H POC ABG pO2 72 L Sodium 149 H Potassium Chloride Carbon Dioxide 34 H BUN 50 H Creatinine Glucose 203 H POC Glucose 252 H Lactic Acid Calcium Phosphorus Magnesium Ferritin Total Bilirubin Lactate Dehydrogenase Total Creatine Kinase CK-MB (CK-2) C-Reactive Protein NT-Pro-B Natriuret Pep Total Protein Albumin Triglycerides Urine WBC (Auto) Urine Creatinine Urine Total Protein Vancomycin Trough Random Vancomycin Absolute CD4 Count Absolute CD19 Count Crossmatch 10/17/16 10/17/16 10/18/16 18:09 23:35 04:45 WBC RBC Hgb Hct MCV MCH RDW Plt Count [place] # Baso # Seg Neutrophils % Seg Neuts % (Manual) Lymphocytes % (Manual) Monocytes % (Manual) Eosinophils % (Manual) Nucleated RBC % Seg Neutrophils # Seg Neutrophils # Man Abs Lymphs (Manual) Lymphocytes # (Manual) Monocytes # (Manual) Eosinophils # (Manual) Percent Retic PT INR D-Dimer POC ABG pH POC ABG pCO2 66.8 H POC ABG pO2 59 L Sodium Potassium Chloride Carbon Dioxide BUN Creatinine Glucose POC Glucose 275 H 201 H Lactic Acid Calcium Phosphorus Magnesium Ferritin Total Bilirubin Lactate Dehydrogenase Total Creatine Kinase CK-MB (CK-2) C-Reactive Protein NT-Pro-B Natriuret Pep Total Protein Albumin Triglycerides Urine WBC (Auto) Urine Creatinine Urine Total Protein Vancomycin Trough Random Vancomycin Absolute CD4 Count Absolute CD19 Count Crossmatch 10/18/16 10/18/16 10/18/16 05:11 05:11 05:33 WBC 24.0 H RBC 3.54 L Hgb 9.7 L Hct MCV MCH 27 L RDW 15.8 H Plt Count [place] # Baso # Seg Neutrophils % Seg Neuts % (Manual) 94.0 H Lymphocytes % (Manual) 5.0 L Monocytes % (Manual) Eosinophils % (Manual) Nucleated RBC % 2.0 H Seg Neutrophils # Seg Neutrophils # Man 22.6 H Abs Lymphs (Manual) Lymphocytes # (Manual) Monocytes # (Manual) Eosinophils # (Manual) Percent Retic PT INR D-Dimer POC ABG pH POC ABG pCO2 POC ABG pO2 Sodium Potassium Chloride Carbon Dioxide 35 H BUN 53 H Creatinine Glucose 236 H POC Glucose 232 H Lactic Acid Calcium Phosphorus Magnesium Ferritin Total Bilirubin Lactate Dehydrogenase Total Creatine Kinase CK-MB (CK-2) C-Reactive Protein NT-Pro-B Natriuret Pep Total Protein Albumin Triglycerides Urine WBC (Auto) Urine Creatinine Urine Total Protein Vancomycin Trough Random Vancomycin Absolute CD4 Count Absolute CD19 Count Crossmatch 10/18/16 10/18/16 10/18/16 12:22 17:18 23:41 WBC RBC Hgb Hct MCV MCH RDW Plt Count [place] # Baso # Seg Neutrophils % Seg Neuts % (Manual) Lymphocytes % (Manual) Monocytes % (Manual) Eosinophils % (Manual) Nucleated RBC % Seg Neutrophils # Seg Neutrophils # Man Abs Lymphs (Manual) Lymphocytes # (Manual) Monocytes # (Manual) Eosinophils # (Manual) Percent Retic PT INR D-Dimer POC ABG pH POC ABG pCO2 POC ABG pO2 Sodium Potassium Chloride Carbon Dioxide BUN Creatinine Glucose POC Glucose 237 H 300 H 254 H Lactic Acid Calcium Phosphorus Magnesium Ferritin Total Bilirubin Lactate Dehydrogenase Total Creatine Kinase CK-MB (CK-2) C-Reactive Protein NT-Pro-B Natriuret Pep Total Protein Albumin Triglycerides Urine WBC (Auto) Urine Creatinine Urine Total Protein Vancomycin Trough Random Vancomycin Absolute CD4 Count Absolute CD19 Count Crossmatch 10/19/16 10/19/16 10/19/16 03:45 04:32 05:46 WBC RBC Hgb Hct MCV MCH RDW Plt Count [place] # Baso # Seg Neutrophils % Seg Neuts % (Manual) Lymphocytes % (Manual) Monocytes % (Manual) Eosinophils % (Manual) Nucleated RBC % Seg Neutrophils # Seg Neutrophils # Man Abs Lymphs (Manual) Lymphocytes # (Manual) Monocytes # (Manual) Eosinophils # (Manual) Percent Retic PT INR D-Dimer POC ABG pH POC ABG pCO2 66.7 H POC ABG pO2 55 L Sodium Potassium Chloride Carbon Dioxide BUN Creatinine Glucose POC Glucose 273 H Lactic Acid Calcium Phosphorus Magnesium Ferritin Total Bilirubin Lactate Dehydrogenase Total Creatine Kinase CK-MB (CK-2) C-Reactive Protein NT-Pro-B Natriuret Pep Total Protein Albumin Triglycerides 287 H Urine WBC (Auto) Urine Creatinine Urine Total Protein Vancomycin Trough Random Vancomycin Absolute CD4 Count Absolute CD19 Count Crossmatch 10/19/16 10/19/16 10/19/16 10:18 10:18 12:07 WBC 23.0 H RBC 3.36 L Hgb 9.4 L Hct 29.7 L MCV MCH RDW 15.5 H Plt Count [place] # Baso # Seg Neutrophils % Seg Neuts % (Manual) Lymphocytes % (Manual) Monocytes % (Manual) Eosinophils % (Manual) Nucleated RBC % Seg Neutrophils # Seg Neutrophils # Man Abs Lymphs (Manual) Lymphocytes # (Manual) Monocytes # (Manual) Eosinophils # (Manual) Percent Retic PT INR D-Dimer POC ABG pH POC ABG pCO2 POC ABG pO2 Sodium Potassium Chloride 93.9 L Carbon Dioxide 35 H BUN 48 H Creatinine Glucose 385 H POC Glucose 226 H Lactic Acid Calcium Phosphorus Magnesium Ferritin Total Bilirubin Lactate Dehydrogenase Total Creatine Kinase CK-MB (CK-2) C-Reactive Protein NT-Pro-B Natriuret Pep Total Protein Albumin Triglycerides Urine WBC (Auto) Urine Creatinine Urine Total Protein Vancomycin Trough Random Vancomycin Absolute CD4 Count Absolute CD19 Count Crossmatch 10/19/16 10/19/16 10/20/16 17:44 23:42 04:40 WBC RBC Hgb Hct MCV MCH RDW Plt Count [place] # Baso # Seg Neutrophils % Seg Neuts % (Manual) Lymphocytes % (Manual) Monocytes % (Manual) Eosinophils % (Manual) Nucleated RBC % Seg Neutrophils # Seg Neutrophils # Man Abs Lymphs (Manual) Lymphocytes # (Manual) Monocytes # (Manual) Eosinophils # (Manual) Percent Retic PT INR D-Dimer POC ABG pH 7.466 H POC ABG pCO2 54.0 H POC ABG pO2 78 L Sodium Potassium Chloride Carbon Dioxide BUN Creatinine Glucose POC Glucose 268 H 283 H Lactic Acid Calcium Phosphorus Magnesium Ferritin Total Bilirubin Lactate Dehydrogenase Total Creatine Kinase CK-MB (CK-2) C-Reactive Protein NT-Pro-B Natriuret Pep Total Protein Albumin Triglycerides Urine WBC (Auto) Urine Creatinine Urine Total Protein Vancomycin Trough Random Vancomycin Absolute CD4 Count Absolute CD19 Count Crossmatch 10/20/16 10/20/16 10/20/16 05:34 12:04 18:31 WBC RBC Hgb Hct MCV MCH RDW Plt Count [place] # Baso # Seg Neutrophils % Seg Neuts % (Manual) Lymphocytes % (Manual) Monocytes % (Manual) Eosinophils % (Manual) Nucleated RBC % Seg Neutrophils # Seg Neutrophils # Man Abs Lymphs (Manual) Lymphocytes # (Manual) Monocytes # (Manual) Eosinophils # (Manual) Percent Retic PT INR D-Dimer POC ABG pH POC ABG pCO2 POC ABG pO2 Sodium Potassium Chloride Carbon Dioxide BUN Creatinine Glucose POC Glucose 257 H 247 H 240 H Lactic Acid Calcium Phosphorus Magnesium Ferritin Total Bilirubin Lactate Dehydrogenase Total Creatine Kinase CK-MB (CK-2) C-Reactive Protein NT-Pro-B Natriuret Pep Total Protein Albumin Triglycerides Urine WBC (Auto) Urine Creatinine Urine Total Protein Vancomycin Trough Random Vancomycin Absolute CD4 Count Absolute CD19 Count Crossmatch 10/20/16 10/20/16 10/20/16 21:30 Unknown Unknown WBC 21.1 H RBC 3.62 L Hgb Hct MCV MCH RDW 15.3 H Plt Count [place] # Baso # Seg Neutrophils % Seg Neuts % (Manual) Lymphocytes % (Manual) Monocytes % (Manual) Eosinophils % (Manual) Nucleated RBC % Seg Neutrophils # Seg Neutrophils # Man Abs Lymphs (Manual) Lymphocytes # (Manual) Monocytes # (Manual) Eosinophils # (Manual) Percent Retic PT INR D-Dimer POC ABG pH POC ABG pCO2 59.2 H POC ABG pO2 57 L Sodium Potassium Chloride Carbon Dioxide 34 H BUN 50 H Creatinine 0.6 L Glucose 254 H POC Glucose Lactic Acid Calcium Phosphorus Magnesium Ferritin Total Bilirubin Lactate Dehydrogenase Total Creatine Kinase CK-MB (CK-2) C-Reactive Protein NT-Pro-B Natriuret Pep Total Protein Albumin Triglycerides Urine WBC (Auto) Urine Creatinine Urine Total Protein Vancomycin Trough Random Vancomycin Absolute CD4 Count Absolute CD19 Count Crossmatch 10/21/16 10/21/16 10/21/16 00:24 04:57 05:35 WBC RBC Hgb Hct MCV MCH RDW Plt Count [place] # Baso # Seg Neutrophils % Seg Neuts % (Manual) Lymphocytes % (Manual) Monocytes % (Manual) Eosinophils % (Manual) Nucleated RBC % Seg Neutrophils # Seg Neutrophils # Man Abs Lymphs (Manual) Lymphocytes # (Manual) Monocytes # (Manual) Eosinophils # (Manual) Percent Retic PT INR D-Dimer POC ABG pH POC ABG pCO2 57.7 H POC ABG pO2 70 L Sodium Potassium Chloride Carbon Dioxide BUN Creatinine Glucose POC Glucose 250 H 246 H Lactic Acid Calcium Phosphorus Magnesium Ferritin Total Bilirubin Lactate Dehydrogenase Total Creatine Kinase CK-MB (CK-2) C-Reactive Protein NT-Pro-B Natriuret Pep Total Protein Albumin Triglycerides Urine WBC (Auto) Urine Creatinine Urine Total Protein Vancomycin Trough Random Vancomycin Absolute CD4 Count Absolute CD19 Count Crossmatch Chest x-ray: report reviewed Allied health notes reviewed: RT ED Critical Care Note - Critical Care Note Total Time (mins): 31 Critical care time in (mins) excluding proc time.: 31 Critical care attestation.: If time is entered above; I have spent that time in minutes in the direct care of this critically ill patient, excluding procedure time.
[2016-10-21] MEDS ORDERED: LEVEMIR SUB-Q ONE (10:00)
[2016-10-21] MEDS: LEVEMIR SUB-Q SCH (10:20)
[2016-10-21] MEDS: FOLVITE PO SCH (10:20)
[2016-10-21] MEDS: PEPCID PO SCH ×2 (10:20→21:36)
[2016-10-21] MEDS: ASPIRIN PO SCH (10:20)
[2016-10-21] MEDS: VALTREX PO SCH (10:20)
[2016-10-21] MEDS: LOVENOX SUB-Q SCH (10:20)
[2016-10-21] MEDS: ZYVOX PO SCH ×2 (10:20→21:36)
[2016-10-21] MEDS: SENOKOT PO SCH (10:20)
[2016-10-21] MEDS: Centrum Liq PO SCH (12:45)
[2016-10-22] MEDS: DIPRIVAN 10 MG/ML 1,000 MG/100 ML BOTTLE IV SCH (04:09)
[2016-10-22] MEDS: DUONEB 0.5 MG-3 MG/3 ML SOLN IH SCH ×2 (04:15→07:58)
[2016-10-22 05:30] LABS: ISTAT Base Excess 17; ISTAT HCO3 40.3; ISTAT PCO2 54.6 (35-45); ISTAT PH 7.476 (7.35-7.45); ISTAT PO2 75 (80-105); ISTAT SO2 95; ISTAT TCO2 42
[2016-10-22] MEDS: fentaNYL DRIP Premix 2,000 MCG/100 ML BAG IV SCH (07:39)
[2016-10-22] MEDS: BROVANA NEBU IH SCH (07:58)
[2016-10-22] MEDS: PULMICORT IH SCH (07:58)
[2016-10-22] MEDS: SENOKOT PO SCH (09:18)
[2016-10-22] MEDS: FOLVITE PO SCH (09:19)
[2016-10-22] MEDS: PEPCID PO SCH (09:19)
[2016-10-22] MEDS: VALTREX PO SCH (09:19)
[2016-10-22] MEDS: Centrum Liq PO SCH (09:19)
[2016-10-22] MEDS: LOVENOX SUB-Q SCH (09:20)
[2016-10-22] MEDS: ZYVOX PO SCH (09:20)
--- NOTE | 2016-10-22 09:38 | Progress Note ---
Assessment and Plan Assessment and plan: The patient is a 41-year-old female with a history of sickle cell disease who was admitted for total hip arthroplasty for avascular necrosis of the left hip. She had left total hip arthroplasty on 09/25/2016 and developed acute hypoxemic respiratory failure following the POD 2 likely from ARDS and ultimately required intubation on 09/27/2016. Her hemoglobin level dropped from 8.1-6.9 on 09/30/2016, also noted to have hypokalemia with potassium level 3.1. Hospitalist service consulted for medical management. Patient remained intubated with mechanical ventilation. Her white count continued to trend up. Maintained on sepsis protocol, CT scan of abdomen and pelvis and thorax done without contrast to identify the source for infection. CT scan of the chest was suggestive for possible pneumonia. She is currently on broad-spectrum antibiotics, critically ill with poor prognosis. Acute respiratory failure with hypoxia. -has required mechanical ventilation for more than 96hrs -, intubated on 09/27/16 -Bronch on 10/15/16 showed alveolar hemorrhage and trachial aspirate growing MRSA , VRSA- MDR organism, started on zyvox and high dose steroids - on mechanical ventilation, still hoping to wean off vent -consider tracheostomy for senior living weaning when patient is more stable - pulmonary following, cont nebulizer, vent support, has completed antibiotics - wean off as tolerated -Pulmonary input appreciated, goal is to transfer to LTACH for weaning Gram Positive sepsis - Due to pneumonia - Spiking temp intermittently. Last fever 4 days ago. Wbc count still elevated. - continue Zyvox - ID Physician following Pneumomediastinum and subcutaneous emphysema in the neck seen on chest x-ray yesterday. Pulmonology following. MRSA pneumonia-trachial aspirate growing MRSA, VRSA- MDR organism Diffuse alveolar hemorrhage: On high dose steroids Severe anemia - History of thalassemia major - has received multiple prbc transfusion, and received exchange transfusion on 10/10/16 Transfuse to keep Hg above 7.5 - hematology following - Hemoglobin 10.1 Avascular necrosis of the left hip - s/p total left hip arthroplasty on 09/25/16 Hypokalemia -resolved, after replacement. Hypernatremia -Continue free water via gastric tube, resolved, Hypophosphatemia, now resolved Acute kidney injury - likely from sepsis syndrome and ATN, now resolving, Creatinine 0.6 - monitor renal function - nephrology following, renal function impro Leukocytosis WBC still elevated, improving, hematology input appreciated, flow cytometry has been ordered by the psychology teacher DVT prophylaxis with Lovenox FULL CODE STATUS Disposition: Plan is for LTAC placement when stable. Not ready for LTAC transfer yet. She had pneumomediastinum and subcutanous emphesema of neck on . NOK: Son: Jordan Love [phone] Son: Gino love: [phone] Daughter: Varun Love [phone] History Interval history: Still intubated, Hospitalist Physical - Physical exam Narrative exam: Appearance:Morbidly obese, not in distress HEENT: Normocephalic, atraumatic, orally intubated Neck : intubated, no JVD Lungs: Clear to auscultation bilaterally, no crackles or wheeze Heart : S1 and S2 regular, no murmurs, rubs or gallop Abdomen: soft, nontender, nondistended, normal bowel sounds Extremities:No edema, no clubbing or cyanosis Neuro: Awake,alert, follows commands, moves all ext - Constitutional Vitals: Temp Pulse Resp BP Pulse Ox 99.2 F 109 H 20 130/73 95 10/22/16 08:00 10/22/16 08:15 10/22/16 08:15 10/22/16 08:15 10/22/16 08:15 General appearance: Present: obese Results - Labs CBC & Chem 7: 10/20/16 Unknown 10/20/16 Unknown Labs: Laboratory Last Values WBC 21.1 K/mm3 (4.5-11.0) H 10/20/16 Unknown RBC 3.62 M/mm3 (3.65-5.03) L 10/20/16 Unknown Hgb 10.1 gm/dl (10.1-14.3) 10/20/16 Unknown Hct 31.4 % (30.3-42.9) 10/20/16 Unknown MCV 87 fl (79-97) 10/20/16 Unknown MCH 28 pg (28-32) 10/20/16 Unknown MCHC 32 % (30-34) 10/20/16 Unknown RDW 15.3 % (13.2-15.2) H 10/20/16 Unknown Plt Count 402 K/mm3 (140-440) 10/20/16 Unknown Lymph % (Auto) 33.3 % (13.4-35.0) 09/20/16 10:35 [place] % (Auto) 1.5 % (0.0-7.3) 10/17/16 03:56 Eos % (Auto) 0.0 % (0.0-4.3) 10/17/16 03:56 Baso % (Auto) 0.7 % (0.0-1.8) 09/20/16 10:35 Lymph # [place] 10/11/16 12:54 [place] # 0.3 K/mm3 (0.0-0.8) 10/17/16 03:56 Eos # 0.0 K/mm3 (0.0-0.4) 10/17/16 03:56 Baso # 0.0 K/mm3 (0.0-0.1) 10/17/16 03:56 Add Manual Diff Complete 10/18/16 05:11 Total Counted 100 10/18/16 05:11 Seg Neutrophils % [place] 10/18/16 05:11 Seg Neuts % (Manual) 94.0 % (40.0-70.0) H 10/18/16 05:11 Band Neutrophils % 0 % 10/18/16 05:11 Lymphocytes % (Manual) 5.0 % (13.4-35.0) L 10/18/16 05:11 Reactive Lymphs % (Man) 0 % 10/18/16 05:11 Monocytes % (Manual) 1.0 % (0.0-7.3) 10/18/16 05:11 Eosinophils % (Manual) 0 % (0.0-4.3) 10/18/16 05:11 Basophils % (Manual) 0 % (0.0-1.8) 10/18/16 05:11 Metamyelocytes % 0 % 10/18/16 05:11 Myelocytes % 0 % 10/18/16 05:11 Promyelocytes % 0 % 10/18/16 05:11 Blast Cells % 0 % 10/18/16 05:11 Nucleated RBC % 2.0 % (0.0-0.9) H 10/18/16 05:11 Seg Neutrophils # 20.2 K/mm3 (1.8-7.7) H 10/17/16 03:56 Seg Neutrophils # Man 22.6 K/mm3 (1.8-7.7) H 10/18/16 05:11 Band Neutrophils # 0.0 K/mm3 10/18/16 05:11 Abs Lymphs (Manual) 3936 cells/uL (850-3900) H 10/10/16 13:03 Lymphocytes # (Manual) 1.2 K/mm3 (1.2-5.4) 10/18/16 05:11 Abs React Lymphs (Man) 0.0 K/mm3 10/18/16 05:11 Monocytes # (Manual) 0.2 K/mm3 (0.0-0.8) 10/18/16 05:11 Eosinophils # (Manual) 0.0 K/mm3 (0.0-0.4) 10/18/16 05:11 Basophils # (Manual) 0.0 K/mm3 (0.0-0.1) 10/18/16 05:11 Metamyelocytes # 0.0 K/mm3 10/18/16 05:11 Myelocytes # 0.0 K/mm3 10/18/16 05:11 Promyelocytes # 0.0 K/mm3 10/18/16 05:11 Blast Cells # 0.0 K/mm3 10/18/16 05:11 Pathologist Review 10/10/16 06:00 WBC Morphology Not Reportable 10/18/16 05:11 Hypersegmented Neuts Not Reportable 10/18/16 05:11 Hyposegmented Neuts Not Reportable 10/18/16 05:11 Hypogranular Neuts Not Reportable 10/18/16 05:11 Smudge Cells Not Reportable 10/18/16 05:11 Toxic Granulation Not Reportable 10/18/16 05:11 Toxic Vacuolation Not Reportable 10/18/16 05:11 Dohle Bodies Not Reportable 10/18/16 05:11 Pelger-Huet Anomaly Not Reportable 10/18/16 05:11 Jaspreet Rods Not Reportable 10/18/16 05:11 Platelet Estimate Consistent w auto 10/18/16 05:11 Clumped Platelets Not Reportable 10/18/16 05:11 Plt Clumps, EDTA Not Reportable 10/18/16 05:11 Large Platelets Not Reportable 10/18/16 05:11 Giant Platelets Not Reportable 10/18/16 05:11 Platelet Satelliting Not Reportable 10/18/16 05:11 Plt Morphology Comment Not Reportable 10/18/16 05:11 RBC Morphology Not Reportable 10/18/16 05:11 Dimorphic RBCs Not Reportable 10/18/16 05:11 Polychromasia 1+ 10/18/16 05:11 Hypochromasia 1+ 10/18/16 05:11 Poikilocytosis Not Reportable 10/18/16 05:11 Basophilic Stippling 1+ 10/17/16 03:56 Anisocytosis Not Reportable 10/18/16 05:11 Microcytosis Not Reportable 10/18/16 05:11 Macrocytosis Not Reportable 10/18/16 05:11 Spherocytes Not Reportable 10/18/16 05:11 Pappenheimer Bodies Not Reportable 10/18/16 05:11 Sickle Cells Not Reportable 10/18/16 05:11 Target Cells Few 10/18/16 05:11 Tear Drop Cells Not Reportable 10/18/16 05:11 Ovalocytes Not Reportable 10/18/16 05:11 Stomatocytes Few 10/18/16 05:11 Helmet Cells Not Reportable 10/18/16 05:11 [place] Bodies Not Reportable 10/18/16 05:11 [place] Rings Not Reportable 10/18/16 05:11 [place] Cells Not Reportable 10/18/16 05:11 Bite Cells Not Reportable 10/18/16 05:11 Crenated Cell Not Reportable 10/18/16 05:11 Elliptocytes Not Reportable 10/18/16 05:11 Acanthocytes (Spur) Not Reportable 10/18/16 05:11 Rouleaux Not Reportable 10/18/16 05:11 Hemoglobin C Crystals Not Reportable 10/18/16 05:11 Schistocytes Not Reportable 10/18/16 05:11 Malaria parasites Not Reportable 10/18/16 05:11 Percent Retic 8.11 % (0.78-2.58) H 09/27/16 22:47 [place] Bodies Not Reportable 10/18/16 05:11 Hem Pathologist Commnt No 10/18/16 05:11 PT 17.6 Sec. (12.2-14.9) H 10/10/16 13:03 INR 1.45 (0.87-1.13) H 10/10/16 13:03 APTT 31.1 Sec. (24.2-36.6) 09/20/16 10:35 D-Dimer 4758.12 ng/mlDDU (0-234) H 09/27/16 22:47 POC ABG pH 7.476 (7.35-7.45) H 10/22/16 04:52 POC ABG pCO2 54.6 (35-45) H 10/22/16 04:52 POC ABG pO2 75 (80-105) L 10/22/16 04:52 POC ABG HCO3 40.3 10/22/16 04:52 POC ABG Total CO2 42 10/22/16 04:52 POC ABG O2 Sat 95 10/22/16 04:52 POC ABG Base Excess 17 10/22/16 04:52 FiO2 50 % 10/22/16 04:52 Sodium 143 mmol/L (137-145) 10/20/16 Unknown Potassium 4.9 mmol/L (3.6-5.0) 10/20/16 Unknown Chloride 98.2 mmol/L (98-107) 10/20/16 Unknown Carbon Dioxide 34 mmol/L (22-30) H 10/20/16 Unknown Anion Gap 16 mmol/L 10/20/16 Unknown BUN 50 mg/dL (7-17) H 10/20/16 Unknown Creatinine 0.6 mg/dL (0.7-1.2) L 10/20/16 Unknown Estimated GFR > 60 ml/min 10/20/16 Unknown BUN/Creatinine Ratio 83.33 % 10/20/16 Unknown Glucose 254 mg/dL (65-100) H 10/20/16 Unknown POC Glucose 126 (70-105) H 10/22/16 05:43 Osmolality 311 Mosm/kg 10/04/16 04:03 Lactic Acid 1.00 mmol/L (0.7-2.0) 10/14/16 00:30 Calcium 9.1 mg/dL (8.4-10.2) 10/20/16 Unknown Phosphorus 3.20 mg/dL (2.5-4.5) 10/17/16 05:00 Magnesium 2.90 mg/dL (1.7-2.3) H 10/15/16 05:10 Ferritin 782.0 ng/mL (13.0-400.0) H 10/10/16 06:00 Total Bilirubin 1.20 mg/dL (0.1-1.2) 10/04/16 04:03 AST 31 units/L (5-40) 10/04/16 04:03 ALT 33 units/L (7-56) 10/04/16 04:03 Alkaline Phosphatase 100 units/L (35-129) 10/04/16 04:03 Lactate Dehydrogenase 829 units/L (91-180) H 09/27/16 22:47 Total Creatine Kinase 3575 units/L (30-135) H 09/27/16 14:40 CK-MB (CK-2) 11.0 ng/mL (0.0-4.0) H 09/27/16 14:40 CK-MB (CK-2) Rel Index 0.3 (0-4) 09/27/16 14:40 Troponin T < 0.010 ng/mL (0.00-0.029) 09/27/16 14:40 C-Reactive Protein 1.00 mg/dL (0.00-1.30) 10/14/16 00:30 NT-Pro-B Natriuret Pep 2018 pg/mL (0-450) H 09/30/16 14:05 Total Protein 5.6 g/dL (6.3-8.2) L 10/04/16 04:03 Albumin 2.1 g/dL (3.9-5) L 10/04/16 04:03 Albumin/Globulin Ratio 0.6 % 10/04/16 04:03 Triglycerides 287 mg/dL (2-149) H 10/19/16 03:45 Urine Color Yellow (Yellow) 10/03/16 15:54 Urine Turbidity Cloudy (Clear) 10/03/16 15:54 Urine pH 5.0 (5.0-7.0) 10/03/16 15:54 Ur Specific [place] 1.013 (1.003-1.030) 10/03/16 15:54 Urine Protein 30 mg/dl mg/dL (Negative) 10/03/16 15:54 Urine Glucose (UA) Neg mg/dL (Negative) 10/03/16 15:54 Urine Ketones Neg mg/dL (Negative) 10/03/16 15:54 Urine Blood Lg (Negative) 10/03/16 15:54 Urine Nitrite Neg (Negative) 10/03/16 15:54 Urine Bilirubin Neg (Negative) 10/03/16 15:54 Urine Urobilinogen < 2.0 mg/dL (<2.0) 10/03/16 15:54 Ur Leukocyte Esterase Tr (Negative) 10/03/16 15:54 Urine WBC (Auto) 21.0 /HPF (0.0-6.0) H 10/03/16 15:54 Urine RBC (Auto) 65.0 /HPF (0.0-6.0) 10/03/16 15:54 U Epithel Cells (Auto) 2.0 /HPF (0-13.0) 10/03/16 15:54 Urine Bacteria (Auto) 3+ /HPF (Negative) 10/03/16 15:54 Amorphous Crystals 1+ 10/03/16 15:54 Urine Mucus Few /HPF 10/03/16 15:54 Urine Creatinine 63.2 mg/dL (0.1-20.0) H 10/03/16 15:54 Urine Sodium 20 mEq/L 10/03/16 15:54 Urine Total Protein 67 mg/dL (5-11.8) H 10/03/16 15:54 Vancomycin Trough 45.5 ug/mL (5.0-20.0) H 10/04/16 12:39 Random Vancomycin 14.9 ug/mL (0-40.0) 10/07/16 05:25 CHELY Screen Negative (Negative) 10/15/16 16:00 Lymph Enumerat CD4/CD8 2.87 (0.86-5.00) 10/10/16 13:03 % CD3 Cells 73 % (57-85) 10/10/16 13:03 Absolute CD3 Count 2879 cells/uL (840-3060) 10/10/16 13:03 % CD4 Cells 55 % (30-61) 10/10/16 13:03 Absolute CD4 Count 2178 cells/uL (490-1740) H 10/10/16 13:03 % CD8 Cells 19 % (12-42) 10/10/16 13:03 Absolute CD8 Count 759 cells/uL (180-1170) 10/10/16 13:03 % CD19 Cells 21 % (6-29) 10/10/16 13:03 Absolute CD19 Count 824 cells/uL (110-660) H 10/10/16 13:03 Flow Intrp 16+ Markers Scanned into [facility] rec 10/08/16 04:00 Flow Cytometry Interp Scanned into [facility] rec 10/08/16 04:00 Blood Type O POSITIVE 10/09/16 10:00 Antibody Screen TNR 10/01/16 00:55 DEACON Antibody Screen Negative 10/09/16 10:00 Crossmatch See Detail 10/09/16 10:00
[2016-10-22] MEDS: ASPIRIN PO SCH (09:48)
--- NOTE | 2016-10-22 09:58 | Progress Note ---
Assessment and Plan - Patient Problems (1) ARDS (adult respiratory distress syndrome) Status: Acute Plan to address problem: ARDS net protocol with lung protective strategies Continue diuretics as tolerated by renal function and electrolyte profile VTE and stress ulcer prophylaxis Adequate analgesia/agitation management Nutrition- continue Glycemic control Continue weaning ventilatory support as tolerated s/p Bronchoscopy and on high dose steroids- on steroid taper ABG on current settings 7.43/57/70/38.3 (2) Acute respiratory failure with hypoxia Status: Acute Plan to address problem: Continue current therapies. Gentle diuresis as tolerated by BP and renal function Weaning as tolerated VAP bundle addressed HOB >40, aspiration precautions Lung protective strategies Sedation and analgesia- discontinue fentanyl infusion and start the patch Enteric feedings/nutritional support Will need to discuss timing of tracheostomy placement (3) Leukemoid reaction Status: Acute (4) Acute renal failure due to tubular necrosis Status: Acute Plan to address problem: Resolved (5) Acute hypernatremia Status: Acute Plan to address problem: Much improved Get renal panel in the morning (6) H/O total hip arthroplasty Status: Acute Qualifiers: Laterality: left Qualified Code(s): Z96.642 - Presence of left artificial hip joint Plan to address problem: As per Orthopedic service (7) Pulmonary infiltrates on CXR Status: Acute Plan to address problem: Start tapering steroids. Had clinical features suggestive of diffuse alveolar hemorrhage on bronchoscopy. Currently on Linezolid for MRSA HCAP/ tracheobronchitis. Discussed with ID service- plan to complete 10 days of therapy (8) Pneumomediastinum Status: Acute Plan to address problem: Lung protective strategies- low PEEP without compromising oxygenation. PaO2 of 60 is acceptable (9) Diabetes Status: Acute Qualifiers: Diabetes mellitus type: type 2 Diabetes mellitus complication status: D Diabetes mellitus complication detail: D Diabetic retinopathy severity: D Proliferative retinopathy type: P Diabetes mellitus macular edema: D Diabetes mellitus alf insulin use: D Laterality: L Chronic kidney disease stage: C Plan to address problem: Continue with dietary restrictions Accucheck with insulin therapy With steroid taper, there has been better glycemic control, though suboptimal (10) Discharge planning issues Status: Acute Plan to address problem: If she continues to tolerate weaning, plan to discharge to LTACH for weaning from the ventilator and low level rehab today. Discussed with case management and hospitalist service Subjective Date of service: 10/22/16 Principal diagnosis: Acute Hypoxemic Respiratory Failure; ARDS Interval history: Remains critically ill on mechanical ventilatory support. Awake and alert No Patient-ventilator dysynchrony Orally intubated Currently on fentanyl and propofol for sedation/analgesia On AC-VC 26/400/PEEP 8/FIO2 50% Had developed pneumomediastinum-stable Patient seen and examined. Vitals, labs, medications, chart reviewed. No acute overnight events reported or documented Discussed with RN ,RT and multidisciplinary team Objective - Exam Narrative Exam: intubated, awake; nods head to communicate Vital Signs - 12hr 10/21/16 10/21/16 10/21/16 22:00 22:15 22:30 Temperature Pulse Rate 78 77 78 Pulse Rate [ Anterior Bilateral Throughout] Pulse Rate [ From Monitor] Respiratory 26 H 26 H 26 H Rate Respiratory Rate [Anterior Bilateral Throughout] Blood Pressure 100/58 104/67 108/63 O2 Sat by Pulse 97 99 Oximetry 10/21/16 10/21/16 10/21/16 22:45 23:00 23:03 Temperature Pulse Rate 73 71 75 Pulse Rate [ Anterior Bilateral Throughout] Pulse Rate [ From Monitor] Respiratory 26 H 26 H 26 H Rate Respiratory Rate [Anterior Bilateral Throughout] Blood Pressure 103/64 103/59 103/59 O2 Sat by Pulse 98 Oximetry 10/21/16 10/21/16 10/21/16 23:15 23:30 23:41 Temperature Pulse Rate 80 75 Pulse Rate [ Anterior Bilateral Throughout] Pulse Rate [ 74 From Monitor] Respiratory 23 26 H 18 Rate Respiratory Rate [Anterior Bilateral Throughout] Blood Pressure 96/51 96/52 O2 Sat by Pulse 97 96 98 Oximetry 10/21/16 10/22/16 10/22/16 23:45 00:00 00:15 Temperature 98 F Pulse Rate 75 77 72 Pulse Rate [ Anterior Bilateral Throughout] Pulse Rate [ From Monitor] Respiratory 25 H 24 25 H Rate Respiratory Rate [Anterior Bilateral Throughout] Blood Pressure 105/58 99/51 98/53 O2 Sat by Pulse 96 94 Oximetry 10/22/16 10/22/16 10/22/16 00:30 00:45 01:00 Temperature Pulse Rate 73 77 80 Pulse Rate [ Anterior Bilateral Throughout] Pulse Rate [ From Monitor] Respiratory 25 H 25 H 25 H Rate Respiratory Rate [Anterior Bilateral Throughout] Blood Pressure 112/68 115/66 113/69 O2 Sat by Pulse 97 98 97 Oximetry 0510/22/16 10/22/16 01:01 01:15 01:30 Temperature Pulse Rate 80 79 85 Pulse Rate [ Anterior Bilateral Throughout] Pulse Rate [ From Monitor] Respiratory 23 21 Rate Respiratory Rate [Anterior Bilateral Throughout] Blood Pressure 115/66 119/70 122/72 O2 Sat by Pulse 97 97 95 Oximetry 10/22/16 10/22/16 10/22/16 01:45 02:00 02:15 Temperature Pulse Rate 92 H 94 H 97 H Pulse Rate [ Anterior Bilateral Throughout] Pulse Rate [ From Monitor] Respiratory 23 17 14 Rate Respiratory Rate [Anterior Bilateral Throughout] Blood Pressure 122/80 126/76 130/73 O2 Sat by Pulse 96 95 94 Oximetry 10/22/16 10/22/16 10/22/16 02:30 02:45 03:00 Temperature Pulse Rate 97 H 100 H 102 H Pulse Rate [ Anterior Bilateral Throughout] Pulse Rate [ From Monitor] Respiratory 20 16 19 Rate Respiratory Rate [Anterior Bilateral Throughout] Blood Pressure 130/72 126/79 124/77 O2 Sat by Pulse 95 95 90 Oximetry 10/22/16 10/22/16 10/22/16 03:15 03:30 03:45 Temperature Pulse Rate 102 H 101 H 102 H Pulse Rate [ Anterior Bilateral Throughout] Pulse Rate [ From Monitor] Respiratory 16 18 16 Rate Respiratory Rate [Anterior Bilateral Throughout] Blood Pressure 128/78 127/73 128/76 O2 Sat by Pulse 94 94 94 Oximetry 10/22/16 10/22/16 10/22/16 04:00 04:15 04:16 Temperature 98 F Pulse Rate 98 H 97 H Pulse Rate [ 98 H Anterior Bilateral Throughout] Pulse Rate [ 78 From Monitor] Respiratory 15 26 H Rate Respiratory 20 Rate [Anterior Bilateral Throughout] Blood Pressure 126/74 116/73 O2 Sat by Pulse 95 97 Oximetry 10/22/16 10/22/16 10/22/16 04:30 04:45 04:55 Temperature Pulse Rate 100 H 99 H 97 H Pulse Rate [ Anterior Bilateral Throughout] Pulse Rate [ From Monitor] Respiratory 26 H 26 H Rate Respiratory Rate [Anterior Bilateral Throughout] Blood Pressure 124/76 116/76 116/76 O2 Sat by Pulse 98 98 94 Oximetry 10/22/16 10/22/16 10/22/16 05:00 05:15 05:30 Temperature Pulse Rate 94 H 91 H 99 H Pulse Rate [ Anterior Bilateral Throughout] Pulse Rate [ From Monitor] Respiratory 14 14 15 Rate Respiratory Rate [Anterior Bilateral Throughout] Blood Pressure 121/72 122/68 127/69 O2 Sat by Pulse 94 93 94 Oximetry 10/22/16 10/22/16 10/22/16 05:45 06:00 06:15 Temperature Pulse Rate 102 H 102 H 103 H Pulse Rate [ Anterior Bilateral Throughout] Pulse Rate [ From Monitor] Respiratory 18 15 18 Rate Respiratory Rate [Anterior Bilateral Throughout] Blood Pressure 123/70 128/69 124/73 O2 Sat by Pulse 95 94 95 Oximetry 10/22/16 10/22/16 10/22/16 06:30 06:45 07:00 Temperature Pulse Rate 107 H 103 H 105 H Pulse Rate [ Anterior Bilateral Throughout] Pulse Rate [ From Monitor] Respiratory 17 16 16 Rate Respiratory Rate [Anterior Bilateral Throughout] Blood Pressure 131/72 122/69 131/70 O2 Sat by Pulse 95 95 95 Oximetry 10/22/16 10/22/16 10/22/16 07:15 07:30 07:45 Temperature Pulse Rate 103 H 103 H 103 H Pulse Rate [ Anterior Bilateral Throughout] Pulse Rate [ From Monitor] Respiratory 19 15 15 Rate Respiratory Rate [Anterior Bilateral Throughout] Blood Pressure 130/67 122/67 126/67 O2 Sat by Pulse 96 96 96 Oximetry 10/22/16 10/22/16 10/22/16 07:48 07:51 08:00 Temperature 99.2 F Pulse Rate 95 H 107 H Pulse Rate [ 108 H Anterior Bilateral Throughout] Pulse Rate [ From Monitor] Respiratory 16 Rate Respiratory 28 H Rate [Anterior Bilateral Throughout] Blood Pressure 126/67 121/71 O2 Sat by Pulse 96 99 Oximetry 10/22/16 08:15 Temperature Pulse Rate 109 H Pulse Rate [ Anterior Bilateral Throughout] Pulse Rate [ From Monitor] Respiratory 20 Rate Respiratory Rate [Anterior Bilateral Throughout] Blood Pressure 130/73 O2 Sat by Pulse 95 Oximetry Constitutional: no acute distress, alert, other Eyes: non-icteric, other (exopthalmus) ENT: oropharynx moist Neck: supple, no lymphadenopathy Effort: normal, mildly labored Ascultation: Bilateral: diminished breath sounds, rales, rhonchi, other (coarse BS no wheezing) Cardiovascular: regular rate and rhythm, other (no murmurs, gallops or rubs) Gastrointestinal: normoactive bowel sounds, soft, non-tender, non-distended Integumentary: normal Extremities: no cyanosis, no edema, pulses normal, no ischemia or petechiae, other (Abductor pillow in between legs) Neurologic: normal mental status, non-focal exam, pupils equal and round, other (follows commands ) Psychiatric: mood appropriate, affect normal, other CBC and BMP: 10/20/16 Unknown 10/20/16 Unknown ABG, PT/INR, D-dimer: ABG POC ABG pH 7.476 (7.35-7.45) H 10/22/16 04:52 POC ABG pCO2 54.6 (35-45) H 10/22/16 04:52 POC ABG pO2 75 (80-105) L 10/22/16 04:52 POC ABG HCO3 40.3 10/22/16 04:52 POC ABG Total CO2 42 10/22/16 04:52 POC ABG O2 Sat 95 10/22/16 04:52 PT/INR, D-dimer PT 17.6 Sec. (12.2-14.9) H 10/10/16 13:03 INR 1.45 (0.87-1.13) H 10/10/16 13:03 D-Dimer 4758.12 ng/mlDDU (0-234) H 09/27/16 22:47 Abnormal lab findings: Abnormal Labs 09/20/16 09/20/16 09/20/16 10:35 10:35 10:35 WBC 11.7 H RBC Hgb Hct MCV 75 L MCH 24 L RDW 16.6 H Plt Count [place] # Baso # Seg Neutrophils % Seg Neuts % (Manual) Lymphocytes % (Manual) Monocytes % (Manual) Eosinophils % (Manual) Nucleated RBC % Seg Neutrophils # Seg Neutrophils # Man Abs Lymphs (Manual) Lymphocytes # (Manual) Monocytes # (Manual) Eosinophils # (Manual) Percent Retic PT INR 1.14 H D-Dimer POC ABG pH POC ABG pCO2 POC ABG pO2 Sodium Potassium Chloride Carbon Dioxide BUN Creatinine 0.5 L Glucose 115 H POC Glucose Lactic Acid Calcium Phosphorus Magnesium Ferritin Total Bilirubin 2.0 H Lactate Dehydrogenase Total Creatine Kinase CK-MB (CK-2) C-Reactive Protein NT-Pro-B Natriuret Pep Total Protein Albumin Triglycerides Urine WBC (Auto) Urine Creatinine Urine Total Protein Vancomycin Trough Random Vancomycin Absolute CD4 Count Absolute CD19 Count Crossmatch 09/26/16 09/26/16 09/27/16 04:26 04:26 10:26 WBC RBC Hgb 8.9 L Hct 28.0 L MCV MCH RDW Plt Count [place] # Baso # Seg Neutrophils % Seg Neuts % (Manual) Lymphocytes % (Manual) Monocytes % (Manual) Eosinophils % (Manual) Nucleated RBC % Seg Neutrophils # Seg Neutrophils # Man Abs Lymphs (Manual) Lymphocytes # (Manual) Monocytes # (Manual) Eosinophils # (Manual) Percent Retic PT INR D-Dimer POC ABG pH 7.283 L POC ABG pCO2 45.3 H POC ABG pO2 79 L Sodium Potassium Chloride Carbon Dioxide 20 L BUN Creatinine Glucose 129 H POC Glucose Lactic Acid Calcium 7.6 L Phosphorus Magnesium Ferritin Total Bilirubin Lactate Dehydrogenase Total Creatine Kinase CK-MB (CK-2) C-Reactive Protein NT-Pro-B Natriuret Pep Total Protein Albumin Triglycerides Urine WBC (Auto) Urine Creatinine Urine Total Protein Vancomycin Trough Random Vancomycin Absolute CD4 Count Absolute CD19 Count Crossmatch 09/27/16 09/27/16 09/27/16 14:40 14:40 15:14 WBC 39.3 H RBC Hgb 9.3 L Hct 28.9 L MCV 75 L MCH 24 L RDW 18.7 H Plt Count [place] # Baso # Seg Neutrophils % Seg Neuts % (Manual) 93.5 H Lymphocytes % (Manual) 5.0 L Monocytes % (Manual) Eosinophils % (Manual) Nucleated RBC % Seg Neutrophils # Seg Neutrophils # Man 36.7 H Abs Lymphs (Manual) Lymphocytes # (Manual) Monocytes # (Manual) Eosinophils # (Manual) Percent Retic PT INR D-Dimer POC ABG pH POC ABG pCO2 POC ABG pO2 Sodium Potassium Chloride Carbon Dioxide BUN Creatinine Glucose POC Glucose Lactic Acid 2.9 H* Calcium Phosphorus Magnesium Ferritin Total Bilirubin Lactate Dehydrogenase Total Creatine Kinase 3575 H CK-MB (CK-2) 11.0 H C-Reactive Protein 16.10 H NT-Pro-B Natriuret Pep Total Protein Albumin Triglycerides Urine WBC (Auto) Urine Creatinine Urine Total Protein Vancomycin Trough Random Vancomycin Absolute CD4 Count Absolute CD19 Count Crossmatch 09/27/16 09/27/16 09/27/16 18:05 22:47 22:47 WBC RBC Hgb Hct MCV MCH RDW Plt Count [place] # Baso # Seg Neutrophils % Seg Neuts % (Manual) Lymphocytes % (Manual) Monocytes % (Manual) Eosinophils % (Manual) Nucleated RBC % Seg Neutrophils # Seg Neutrophils # Man Abs Lymphs (Manual) Lymphocytes # (Manual) Monocytes # (Manual) Eosinophils # (Manual) Percent Retic PT INR D-Dimer 4758.12 H POC ABG pH POC ABG pCO2 POC ABG pO2 70 L Sodium Potassium Chloride Carbon Dioxide BUN Creatinine Glucose POC Glucose Lactic Acid Calcium Phosphorus Magnesium Ferritin Total Bilirubin Lactate Dehydrogenase 829 H Total Creatine Kinase CK-MB (CK-2) C-Reactive Protein NT-Pro-B Natriuret Pep Total Protein Albumin Triglycerides Urine WBC (Auto) Urine Creatinine Urine Total Protein Vancomycin Trough Random Vancomycin Absolute CD4 Count Absolute CD19 Count Crossmatch 09/27/16 09/28/16 09/28/16 22:47 09:20 10:47 WBC RBC Hgb Hct MCV MCH RDW Plt Count [place] # Baso # Seg Neutrophils % Seg Neuts % (Manual) Lymphocytes % (Manual) Monocytes % (Manual) Eosinophils % (Manual) Nucleated RBC % Seg Neutrophils # Seg Neutrophils # Man Abs Lymphs (Manual) Lymphocytes # (Manual) Monocytes # (Manual) Eosinophils # (Manual) Percent Retic 8.11 H PT INR D-Dimer POC ABG pH POC ABG pCO2 47.2 H POC ABG pO2 70 L Sodium Potassium Chloride Carbon Dioxide BUN Creatinine 0.6 L Glucose 137 H POC Glucose Lactic Acid Calcium Phosphorus Magnesium Ferritin Total Bilirubin Lactate Dehydrogenase Total Creatine Kinase CK-MB (CK-2) C-Reactive Protein NT-Pro-B Natriuret Pep Total Protein Albumin Triglycerides Urine WBC (Auto) Urine Creatinine Urine Total Protein Vancomycin Trough Random Vancomycin Absolute CD4 Count Absolute CD19 Count Crossmatch 09/28/16 09/30/16 09/30/16 10:47 11:01 14:05 WBC 30.3 H RBC 3.27 L Hgb 8.1 L Hct 24.4 L MCV 75 L MCH 25 L RDW 18.9 H Plt Count [place] # Baso # Seg Neutrophils % Seg Neuts % (Manual) Lymphocytes % (Manual) 12.0 L Monocytes % (Manual) Eosinophils % (Manual) Nucleated RBC % 5.0 H Seg Neutrophils # Seg Neutrophils # Man 21.2 H Abs Lymphs (Manual) Lymphocytes # (Manual) Monocytes # (Manual) 1.8 H Eosinophils # (Manual) Percent Retic PT INR D-Dimer POC ABG pH POC ABG pCO2 48.8 H POC ABG pO2 52 L Sodium Potassium Chloride Carbon Dioxide BUN Creatinine Glucose POC Glucose Lactic Acid Calcium Phosphorus Magnesium Ferritin Total Bilirubin Lactate Dehydrogenase Total Creatine Kinase CK-MB (CK-2) C-Reactive Protein NT-Pro-B Natriuret Pep 2018 H Total Protein Albumin Triglycerides Urine WBC (Auto) Urine Creatinine Urine Total Protein Vancomycin Trough Random Vancomycin Absolute CD4 Count Absolute CD19 Count Crossmatch 09/30/16 09/30/16 09/30/16 14:05 14:05 14:05 WBC 22.1 H RBC 2.76 L Hgb 6.9 L Hct 20.6 L MCV 75 L MCH 25 L RDW 18.7 H Plt Count [place] # Baso # Seg Neutrophils % Seg Neuts % (Manual) 74.0 H Lymphocytes % (Manual) 7.0 L Monocytes % (Manual) Eosinophils % (Manual) Nucleated RBC % 52.0 H Seg Neutrophils # Seg Neutrophils # Man 16.4 H Abs Lymphs (Manual) Lymphocytes # (Manual) Monocytes # (Manual) Eosinophils # (Manual) Percent Retic PT INR D-Dimer POC ABG pH POC ABG pCO2 POC ABG pO2 Sodium Potassium 3.1 L Chloride Carbon Dioxide BUN Creatinine 0.5 L Glucose 116 H POC Glucose Lactic Acid Calcium 8.2 L Phosphorus Magnesium Ferritin Total Bilirubin Lactate Dehydrogenase Total Creatine Kinase CK-MB (CK-2) C-Reactive Protein 30.80 H NT-Pro-B Natriuret Pep Total Protein Albumin Triglycerides Urine WBC (Auto) Urine Creatinine Urine Total Protein Vancomycin Trough Random Vancomycin Absolute CD4 Count Absolute CD19 Count Crossmatch 09/30/16 10/01/16 10/01/16 14:33 00:55 00:55 WBC 26.1 H RBC 2.80 L Hgb 6.8 L Hct 20.8 L MCV 74 L MCH 24 L RDW 18.6 H Plt Count [place] # Baso # Seg Neutrophils % Seg Neuts % (Manual) 85.0 H Lymphocytes % (Manual) 11.0 L Monocytes % (Manual) Eosinophils % (Manual) Nucleated RBC % 21.0 H Seg Neutrophils # Seg Neutrophils # Man 22.2 H Abs Lymphs (Manual) Lymphocytes # (Manual) Monocytes # (Manual) 1.0 H Eosinophils # (Manual) Percent Retic PT INR D-Dimer POC ABG pH POC ABG pCO2 47.8 H POC ABG pO2 201 H Sodium Potassium Chloride Carbon Dioxide BUN Creatinine Glucose POC Glucose Lactic Acid Calcium Phosphorus Magnesium Ferritin Total Bilirubin Lactate Dehydrogenase Total Creatine Kinase CK-MB (CK-2) C-Reactive Protein NT-Pro-B Natriuret Pep Total Protein Albumin Triglycerides Urine WBC (Auto) Urine Creatinine Urine Total Protein Vancomycin Trough Random Vancomycin Absolute CD4 Count Absolute CD19 Count Crossmatch See Detail 10/01/16 10/01/16 10/01/16 04:57 05:00 13:01 WBC RBC Hgb Hct MCV MCH RDW Plt Count [place] # Baso # Seg Neutrophils % Seg Neuts % (Manual) Lymphocytes % (Manual) Monocytes % (Manual) Eosinophils % (Manual) Nucleated RBC % Seg Neutrophils # Seg Neutrophils # Man Abs Lymphs (Manual) Lymphocytes # (Manual) Monocytes # (Manual) Eosinophils # (Manual) Percent Retic PT INR D-Dimer POC ABG pH POC ABG pCO2 58.5 H POC ABG pO2 149 H Sodium 149 H Potassium 3.0 L Chloride Carbon Dioxide BUN Creatinine Glucose POC Glucose 120 H Lactic Acid Calcium 8.3 L Phosphorus Magnesium Ferritin Total Bilirubin Lactate Dehydrogenase Total Creatine Kinase CK-MB (CK-2) C-Reactive Protein NT-Pro-B Natriuret Pep Total Protein Albumin Triglycerides Urine WBC (Auto) Urine Creatinine Urine Total Protein Vancomycin Trough Random Vancomycin Absolute CD4 Count Absolute CD19 Count Crossmatch 10/01/16 10/01/16 10/01/16 15:43 17:44 23:37 WBC 27.6 H RBC 3.55 L Hgb 8.9 L Hct 27.6 L D MCV 78 L D MCH 25 L RDW 18.1 H Plt Count [place] # Baso # Seg Neutrophils % Seg Neuts % (Manual) 79.5 H Lymphocytes % (Manual) 8.0 L Monocytes % (Manual) Eosinophils % (Manual) Nucleated RBC % 65.0 H Seg Neutrophils # Seg Neutrophils # Man 21.9 H Abs Lymphs (Manual) Lymphocytes # (Manual) Monocytes # (Manual) 1.0 H Eosinophils # (Manual) Percent Retic PT INR D-Dimer POC ABG pH POC ABG pCO2 POC ABG pO2 Sodium Potassium Chloride Carbon Dioxide BUN Creatinine Glucose POC Glucose 121 H 129 H Lactic Acid Calcium Phosphorus Magnesium Ferritin Total Bilirubin Lactate Dehydrogenase Total Creatine Kinase CK-MB (CK-2) C-Reactive Protein NT-Pro-B Natriuret Pep Total Protein Albumin Triglycerides Urine WBC (Auto) Urine Creatinine Urine Total Protein Vancomycin Trough Random Vancomycin Absolute CD4 Count Absolute CD19 Count Crossmatch 10/02/16 10/02/16 10/02/16 05:05 05:40 06:00 WBC 23.0 H RBC 3.30 L Hgb 8.3 L Hct 25.8 L MCV 78 L MCH 25 L RDW 18.2 H Plt Count [place] # Baso # Seg Neutrophils % Seg Neuts % (Manual) 83.5 H Lymphocytes % (Manual) 4.0 L Monocytes % (Manual) Eosinophils % (Manual) Nucleated RBC % 14.5 H Seg Neutrophils # Seg Neutrophils # Man 25.1 H Abs Lymphs (Manual) Lymphocytes # (Manual) Monocytes # (Manual) 1.7 H Eosinophils # (Manual) Percent Retic PT INR D-Dimer POC ABG pH POC ABG pCO2 50.5 H POC ABG pO2 Sodium Potassium Chloride Carbon Dioxide BUN Creatinine Glucose POC Glucose 123 H Lactic Acid Calcium Phosphorus Magnesium Ferritin Total Bilirubin Lactate Dehydrogenase Total Creatine Kinase CK-MB (CK-2) C-Reactive Protein NT-Pro-B Natriuret Pep Total Protein Albumin Triglycerides Urine WBC (Auto) Urine Creatinine Urine Total Protein Vancomycin Trough Random Vancomycin Absolute CD4 Count Absolute CD19 Count Crossmatch 10/02/16 10/02/16 10/02/16 06:00 11:42 21:52 WBC RBC Hgb Hct MCV MCH RDW Plt Count [place] # Baso # Seg Neutrophils % Seg Neuts % (Manual) Lymphocytes % (Manual) Monocytes % (Manual) Eosinophils % (Manual) Nucleated RBC % Seg Neutrophils # Seg Neutrophils # Man Abs Lymphs (Manual) Lymphocytes # (Manual) Monocytes # (Manual) Eosinophils # (Manual) Percent Retic PT INR D-Dimer POC ABG pH 7.324 L POC ABG pCO2 60.5 H POC ABG pO2 74 L Sodium 150 H Potassium Chloride 108.3 H Carbon Dioxide BUN 20 H Creatinine 1.4 H D Glucose 117 H POC Glucose 135 H Lactic Acid Calcium Phosphorus Magnesium Ferritin Total Bilirubin Lactate Dehydrogenase Total Creatine Kinase CK-MB (CK-2) C-Reactive Protein NT-Pro-B Natriuret Pep Total Protein Albumin Triglycerides Urine WBC (Auto) Urine Creatinine Urine Total Protein Vancomycin Trough Random Vancomycin Absolute CD4 Count Absolute CD19 Count Crossmatch 10/02/16 10/03/16 10/03/16 23:26 05:55 08:17 WBC 32.0 H RBC 3.13 L Hgb 7.9 L Hct 24.6 L MCV MCH 25 L RDW 18.9 H Plt Count 132 L [place] # Baso # Seg Neutrophils % Seg Neuts % (Manual) 75.0 H Lymphocytes % (Manual) 5.0 L Monocytes % (Manual) Eosinophils % (Manual) Nucleated RBC % 26.0 H Seg Neutrophils # Seg Neutrophils # Man 24.0 H Abs Lymphs (Manual) Lymphocytes # (Manual) Monocytes # (Manual) 1.0 H Eosinophils # (Manual) 1.0 H Percent Retic PT INR D-Dimer POC ABG pH POC ABG pCO2 POC ABG pO2 Sodium Potassium Chloride Carbon Dioxide BUN Creatinine Glucose POC Glucose 121 H 145 H Lactic Acid Calcium Phosphorus Magnesium Ferritin Total Bilirubin Lactate Dehydrogenase Total Creatine Kinase CK-MB (CK-2) C-Reactive Protein NT-Pro-B Natriuret Pep Total Protein Albumin Triglycerides Urine WBC (Auto) Urine Creatinine Urine Total Protein Vancomycin Trough Random Vancomycin Absolute CD4 Count Absolute CD19 Count Crossmatch 10/03/16 10/03/16 10/03/16 08:17 09:26 11:34 WBC RBC Hgb Hct MCV MCH RDW Plt Count [place] # Baso # Seg Neutrophils % Seg Neuts % (Manual) Lymphocytes % (Manual) Monocytes % (Manual) Eosinophils % (Manual) Nucleated RBC % Seg Neutrophils # Seg Neutrophils # Man Abs Lymphs (Manual) Lymphocytes # (Manual) Monocytes # (Manual) Eosinophils # (Manual) Percent Retic PT INR D-Dimer POC ABG pH 7.274 L POC ABG pCO2 59.7 H POC ABG pO2 58 L Sodium 147 H Potassium Chloride 107.6 H Carbon Dioxide BUN 31 H Creatinine 1.7 H Glucose 118 H POC Glucose 142 H Lactic Acid Calcium Phosphorus Magnesium Ferritin Total Bilirubin Lactate Dehydrogenase Total Creatine Kinase CK-MB (CK-2) C-Reactive Protein NT-Pro-B Natriuret Pep Total Protein Albumin Triglycerides Urine WBC (Auto) Urine Creatinine Urine Total Protein Vancomycin Trough Random Vancomycin Absolute CD4 Count Absolute CD19 Count Crossmatch 10/03/16 10/03/16 10/03/16 15:54 15:54 16:58 WBC RBC Hgb Hct MCV MCH RDW Plt Count [place] # Baso # Seg Neutrophils % Seg Neuts % (Manual) Lymphocytes % (Manual) Monocytes % (Manual) Eosinophils % (Manual) Nucleated RBC % Seg Neutrophils # Seg Neutrophils # Man Abs Lymphs (Manual) Lymphocytes # (Manual) Monocytes # (Manual) Eosinophils # (Manual) Percent Retic PT INR D-Dimer POC ABG pH POC ABG pCO2 POC ABG pO2 Sodium Potassium Chloride Carbon Dioxide BUN Creatinine Glucose POC Glucose 138 H Lactic Acid Calcium Phosphorus Magnesium Ferritin Total Bilirubin Lactate Dehydrogenase Total Creatine Kinase CK-MB (CK-2) C-Reactive Protein NT-Pro-B Natriuret Pep Total Protein Albumin Triglycerides Urine WBC (Auto) 21.0 H Urine Creatinine 63.2 H Urine Total Protein 67 H Vancomycin Trough Random Vancomycin Absolute CD4 Count Absolute CD19 Count Crossmatch 10/03/16 10/03/16 10/04/16 21:37 23:44 04:00 WBC 30.3 H RBC 2.86 L Hgb 7.3 L Hct 22.6 L MCV MCH 25 L RDW 19.6 H Plt Count 125 L [place] # Baso # Seg Neutrophils % Seg Neuts % (Manual) Lymphocytes % (Manual) 12.0 L Monocytes % (Manual) Eosinophils % (Manual) 5.0 H Nucleated RBC % 30.0 H Seg Neutrophils # Seg Neutrophils # Man 12.7 H Abs Lymphs (Manual) Lymphocytes # (Manual) Monocytes # (Manual) 1.2 H Eosinophils # (Manual) 1.5 H Percent Retic PT INR D-Dimer POC ABG pH 7.271 L POC ABG pCO2 61.7 H POC ABG pO2 77 L Sodium Potassium Chloride Carbon Dioxide BUN Creatinine Glucose POC Glucose 130 H Lactic Acid Calcium Phosphorus Magnesium Ferritin Total Bilirubin Lactate Dehydrogenase Total Creatine Kinase CK-MB (CK-2) C-Reactive Protein NT-Pro-B Natriuret Pep Total Protein Albumin Triglycerides Urine WBC (Auto) Urine Creatinine Urine Total Protein Vancomycin Trough Random Vancomycin Absolute CD4 Count Absolute CD19 Count Crossmatch 10/04/16 10/04/16 10/04/16 04:03 06:02 12:29 WBC RBC Hgb Hct MCV MCH RDW Plt Count [place] # Baso # Seg Neutrophils % Seg Neuts % (Manual) Lymphocytes % (Manual) Monocytes % (Manual) Eosinophils % (Manual) Nucleated RBC % Seg Neutrophils # Seg Neutrophils # Man Abs Lymphs (Manual) Lymphocytes # (Manual) Monocytes # (Manual) Eosinophils # (Manual) Percent Retic PT INR D-Dimer POC ABG pH 7.248 L POC ABG pCO2 62.3 H POC ABG pO2 59 L Sodium Potassium Chloride Carbon Dioxide BUN 40 H Creatinine 1.7 H Glucose 110 H POC Glucose 123 H Lactic Acid Calcium Phosphorus Magnesium Ferritin Total Bilirubin Lactate Dehydrogenase Total Creatine Kinase CK-MB (CK-2) C-Reactive Protein NT-Pro-B Natriuret Pep Total Protein 5.6 L Albumin 2.1 L Triglycerides Urine WBC (Auto) Urine Creatinine Urine Total Protein Vancomycin Trough Random Vancomycin Absolute CD4 Count Absolute CD19 Count Crossmatch 10/04/16 10/04/16 10/04/16 12:39 15:14 17:45 WBC RBC Hgb Hct MCV MCH RDW Plt Count [place] # Baso # Seg Neutrophils % Seg Neuts % (Manual) Lymphocytes % (Manual) Monocytes % (Manual) Eosinophils % (Manual) Nucleated RBC % Seg Neutrophils # Seg Neutrophils # Man Abs Lymphs (Manual) Lymphocytes # (Manual) Monocytes # (Manual) Eosinophils # (Manual) Percent Retic PT INR D-Dimer POC ABG pH POC ABG pCO2 POC ABG pO2 109 H Sodium Potassium Chloride Carbon Dioxide BUN Creatinine Glucose POC Glucose 124 H Lactic Acid Calcium Phosphorus Magnesium Ferritin Total Bilirubin Lactate Dehydrogenase Total Creatine Kinase CK-MB (CK-2) C-Reactive Protein NT-Pro-B Natriuret Pep Total Protein Albumin Triglycerides Urine WBC (Auto) Urine Creatinine Urine Total Protein Vancomycin Trough 45.5 H Random Vancomycin Absolute CD4 Count Absolute CD19 Count Crossmatch 10/04/16 10/04/16 10/05/16 20:13 23:05 01:27 WBC 36.1 H RBC 2.99 L Hgb 7.3 L Hct 23.5 L MCV MCH 25 L RDW 19.6 H Plt Count [place] # Baso # Seg Neutrophils % Seg Neuts % (Manual) Lymphocytes % (Manual) Monocytes % (Manual) Eosinophils % (Manual) Nucleated RBC % Seg Neutrophils # Seg Neutrophils # Man Abs Lymphs (Manual) Lymphocytes # (Manual) Monocytes # (Manual) Eosinophils # (Manual) Percent Retic PT INR D-Dimer POC ABG pH 7.341 L POC ABG pCO2 POC ABG pO2 47 L Sodium Potassium Chloride Carbon Dioxide BUN Creatinine Glucose POC Glucose 127 H Lactic Acid Calcium Phosphorus Magnesium Ferritin Total Bilirubin Lactate Dehydrogenase Total Creatine Kinase CK-MB (CK-2) C-Reactive Protein NT-Pro-B Natriuret Pep Total Protein Albumin Triglycerides Urine WBC (Auto) Urine Creatinine Urine Total Protein Vancomycin Trough Random Vancomycin Absolute CD4 Count Absolute CD19 Count Crossmatch 10/05/16 10/05/16 10/05/16 01:27 03:50 05:00 WBC RBC Hgb Hct MCV MCH RDW Plt Count [place] # Baso # Seg Neutrophils % Seg Neuts % (Manual) Lymphocytes % (Manual) Monocytes % (Manual) Eosinophils % (Manual) Nucleated RBC % Seg Neutrophils # Seg Neutrophils # Man Abs Lymphs (Manual) Lymphocytes # (Manual) Monocytes # (Manual) Eosinophils # (Manual) Percent Retic PT INR D-Dimer POC ABG pH 7.330 L POC ABG pCO2 45.3 H POC ABG pO2 53 L Sodium Potassium Chloride Carbon Dioxide BUN 49 H Creatinine 1.6 H Glucose 112 H POC Glucose Lactic Acid Calcium Phosphorus Magnesium Ferritin Total Bilirubin Lactate Dehydrogenase Total Creatine Kinase CK-MB (CK-2) C-Reactive Protein NT-Pro-B Natriuret Pep Total Protein Albumin Triglycerides Urine WBC (Auto) Urine Creatinine Urine Total Protein Vancomycin Trough Random Vancomycin 43.6 H Absolute CD4 Count Absolute CD19 Count Crossmatch 10/05/16 10/05/16 10/05/16 05:30 12:08 14:00 WBC RBC Hgb Hct MCV MCH RDW Plt Count [place] # Baso # Seg Neutrophils % Seg Neuts % (Manual) Lymphocytes % (Manual) Monocytes % (Manual) Eosinophils % (Manual) Nucleated RBC % Seg Neutrophils # Seg Neutrophils # Man Abs Lymphs (Manual) Lymphocytes # (Manual) Monocytes # (Manual) Eosinophils # (Manual) Percent Retic PT INR D-Dimer POC ABG pH POC ABG pCO2 POC ABG pO2 Sodium Potassium Chloride Carbon Dioxide BUN Creatinine Glucose POC Glucose 141 H 149 H Lactic Acid Calcium Phosphorus Magnesium Ferritin Total Bilirubin Lactate Dehydrogenase Total Creatine Kinase CK-MB (CK-2) C-Reactive Protein 28.40 H NT-Pro-B Natriuret Pep Total Protein Albumin Triglycerides Urine WBC (Auto) Urine Creatinine Urine Total Protein Vancomycin Trough Random Vancomycin Absolute CD4 Count Absolute CD19 Count Crossmatch 10/05/16 10/05/16 10/05/16 15:37 16:41 17:15 WBC RBC Hgb Hct MCV MCH RDW Plt Count [place] # Baso # Seg Neutrophils % Seg Neuts % (Manual) Lymphocytes % (Manual) Monocytes % (Manual) Eosinophils % (Manual) Nucleated RBC % Seg Neutrophils # Seg Neutrophils # Man Abs Lymphs (Manual) Lymphocytes # (Manual) Monocytes # (Manual) Eosinophils # (Manual) Percent Retic PT INR D-Dimer POC ABG pH 7.157 L 7.133 L POC ABG pCO2 75.0 H 80.5 H POC ABG pO2 76 L Sodium Potassium Chloride Carbon Dioxide BUN Creatinine Glucose POC Glucose 151 H Lactic Acid Calcium Phosphorus Magnesium Ferritin Total Bilirubin Lactate Dehydrogenase Total Creatine Kinase CK-MB (CK-2) C-Reactive Protein NT-Pro-B Natriuret Pep Total Protein Albumin Triglycerides Urine WBC (Auto) Urine Creatinine Urine Total Protein Vancomycin Trough Random Vancomycin Absolute CD4 Count Absolute CD19 Count Crossmatch 10/05/16 10/05/16 10/06/16 19:58 23:50 03:57 WBC 45.3 H* RBC 3.08 L Hgb 7.5 L Hct 24.5 L MCV MCH 25 L RDW 20.1 H Plt Count [place] # Baso # Seg Neutrophils % Seg Neuts % (Manual) 24.0 L Lymphocytes % (Manual) 10.0 L Monocytes % (Manual) Eosinophils % (Manual) Nucleated RBC % 36.0 H Seg Neutrophils # Seg Neutrophils # Man 10.9 H Abs Lymphs (Manual) Lymphocytes # (Manual) Monocytes # (Manual) 3.2 H Eosinophils # (Manual) 0.5 H Percent Retic PT INR D-Dimer POC ABG pH 7.198 L POC ABG pCO2 69.5 H POC ABG pO2 Sodium Potassium Chloride Carbon Dioxide BUN Creatinine Glucose POC Glucose 160 H Lactic Acid Calcium Phosphorus Magnesium Ferritin Total Bilirubin Lactate Dehydrogenase Total Creatine Kinase CK-MB (CK-2) C-Reactive Protein NT-Pro-B Natriuret Pep Total Protein Albumin Triglycerides Urine WBC (Auto) Urine Creatinine Urine Total Protein Vancomycin Trough Random Vancomycin Absolute CD4 Count Absolute CD19 Count Crossmatch 10/06/16 10/06/16 10/06/16 03:57 05:38 06:08 WBC RBC Hgb Hct MCV MCH RDW Plt Count [place] # Baso # Seg Neutrophils % Seg Neuts % (Manual) Lymphocytes % (Manual) Monocytes % (Manual) Eosinophils % (Manual) Nucleated RBC % Seg Neutrophils # Seg Neutrophils # Man Abs Lymphs (Manual) Lymphocytes # (Manual) Monocytes # (Manual) Eosinophils # (Manual) Percent Retic PT INR D-Dimer POC ABG pH 7.226 L POC ABG pCO2 63.3 H POC ABG pO2 Sodium 152 H D Potassium Chloride 114.1 H Carbon Dioxide BUN 58 H Creatinine 1.6 H Glucose 123 H POC Glucose 129 H Lactic Acid Calcium Phosphorus Magnesium Ferritin Total Bilirubin Lactate Dehydrogenase Total Creatine Kinase CK-MB (CK-2) C-Reactive Protein NT-Pro-B Natriuret Pep Total Protein Albumin Triglycerides Urine WBC (Auto) Urine Creatinine Urine Total Protein Vancomycin Trough Random Vancomycin Absolute CD4 Count Absolute CD19 Count Crossmatch 10/06/16 10/06/16 10/06/16 11:38 14:31 18:10 WBC RBC Hgb Hct MCV MCH RDW Plt Count [place] # [place] # Seg Neutrophils % Seg Neuts % (Manual) Lymphocytes % (Manual) Monocytes % (Manual) Eosinophils % (Manual) Nucleated RBC % Seg Neutrophils # Seg Neutrophils # Man Abs Lymphs (Manual) Lymphocytes # (Manual) Monocytes # (Manual) Eosinophils # (Manual) Percent Retic PT INR D-Dimer POC ABG pH 7.345 L POC ABG pCO2 49.5 H POC ABG pO2 60 L Sodium Potassium Chloride Carbon Dioxide BUN Creatinine Glucose POC Glucose 126 H 196 H Lactic Acid Calcium Phosphorus Magnesium Ferritin Total Bilirubin Lactate Dehydrogenase Total Creatine Kinase CK-MB (CK-2) C-Reactive Protein NT-Pro-B Natriuret Pep Total Protein Albumin Triglycerides Urine WBC (Auto) Urine Creatinine Urine Total Protein Vancomycin Trough Random Vancomycin Absolute CD4 Count Absolute CD19 Count Crossmatch 10/06/16 10/07/16 10/07/16 21:07 00:55 00:55 WBC 55.1 H* RBC 3.06 L Hgb 7.5 L Hct 24.4 L MCV MCH 24 L RDW 20.7 H Plt Count [place] # [place] # Seg Neutrophils % Seg Neuts % (Manual) Lymphocytes % (Manual) 8.0 L Monocytes % (Manual) 9.0 H Eosinophils % (Manual) Nucleated RBC % 30.0 H Seg Neutrophils # Seg Neutrophils # Man 27.0 H Abs Lymphs (Manual) Lymphocytes # (Manual) Monocytes # (Manual) 5.0 H Eosinophils # (Manual) 0.6 H Percent Retic PT INR D-Dimer POC ABG pH 7.317 L POC ABG pCO2 55.2 H POC ABG pO2 59 L Sodium 148 H Potassium Chloride 110.2 H Carbon Dioxide BUN 56 H Creatinine 1.7 H Glucose 211 H POC Glucose Lactic Acid Calcium Phosphorus Magnesium Ferritin Total Bilirubin Lactate Dehydrogenase Total Creatine Kinase CK-MB (CK-2) C-Reactive Protein NT-Pro-B Natriuret Pep Total Protein Albumin Triglycerides Urine WBC (Auto) Urine Creatinine Urine Total Protein Vancomycin Trough Random Vancomycin Absolute CD4 Count Absolute CD19 Count Crossmatch 10/07/16 10/07/16 10/07/16 01:01 05:20 06:31 WBC RBC Hgb Hct MCV MCH RDW Plt Count [place] # Baso # Seg Neutrophils % Seg Neuts % (Manual) Lymphocytes % (Manual) Monocytes % (Manual) Eosinophils % (Manual) Nucleated RBC % Seg Neutrophils # Seg Neutrophils # Man Abs Lymphs (Manual) Lymphocytes # (Manual) Monocytes # (Manual) Eosinophils # (Manual) Percent Retic PT INR D-Dimer POC ABG pH 7.310 L POC ABG pCO2 55.6 H POC ABG pO2 65 L Sodium Potassium Chloride Carbon Dioxide BUN Creatinine Glucose POC Glucose 249 H 235 H Lactic Acid Calcium Phosphorus Magnesium Ferritin Total Bilirubin Lactate Dehydrogenase Total Creatine Kinase CK-MB (CK-2) C-Reactive Protein NT-Pro-B Natriuret Pep Total Protein Albumin Triglycerides Urine WBC (Auto) Urine Creatinine Urine Total Protein Vancomycin Trough Random Vancomycin Absolute CD4 Count Absolute CD19 Count Crossmatch 10/07/16 10/07/16 10/07/16 12:00 18:04 23:48 WBC RBC Hgb Hct MCV MCH RDW Plt Count [place] # Baso # Seg Neutrophils % Seg Neuts % (Manual) Lymphocytes % (Manual) Monocytes % (Manual) Eosinophils % (Manual) Nucleated RBC % Seg Neutrophils # Seg Neutrophils # Man Abs Lymphs (Manual) Lymphocytes # (Manual) Monocytes # (Manual) Eosinophils # (Manual) Percent Retic PT INR D-Dimer POC ABG pH POC ABG pCO2 POC ABG pO2 Sodium Potassium Chloride Carbon Dioxide BUN Creatinine Glucose POC Glucose 210 H 201 H 163 H Lactic Acid Calcium Phosphorus Magnesium Ferritin Total Bilirubin Lactate Dehydrogenase Total Creatine Kinase CK-MB (CK-2) C-Reactive Protein NT-Pro-B Natriuret Pep Total Protein Albumin Triglycerides Urine WBC (Auto) Urine Creatinine Urine Total Protein Vancomycin Trough Random Vancomycin Absolute CD4 Count Absolute CD19 Count Crossmatch 10/08/16 10/08/16 10/08/16 04:00 04:00 04:10 WBC 58.0 H* RBC 2.95 L Hgb 7.3 L Hct 23.4 L MCV MCH 25 L RDW 20.8 H Plt Count [place] # Baso # Seg Neutrophils % Seg Neuts % (Manual) 75.0 H Lymphocytes % (Manual) 11.0 L Monocytes % (Manual) 8.0 H Eosinophils % (Manual) Nucleated RBC % 30.0 H Seg Neutrophils # Seg Neutrophils # Man 43.5 H Abs Lymphs (Manual) Lymphocytes # (Manual) 6.4 H Monocytes # (Manual) 4.6 H Eosinophils # (Manual) 0.6 H Percent Retic PT INR D-Dimer POC ABG pH POC ABG pCO2 POC ABG pO2 Sodium 152 H Potassium Chloride 111.4 H Carbon Dioxide BUN 59 H Creatinine 1.6 H Glucose 190 H POC Glucose 214 H Lactic Acid Calcium Phosphorus Magnesium Ferritin Total Bilirubin Lactate Dehydrogenase Total Creatine Kinase CK-MB (CK-2) C-Reactive Protein NT-Pro-B Natriuret Pep Total Protein Albumin Triglycerides Urine WBC (Auto) Urine Creatinine Urine Total Protein Vancomycin Trough Random Vancomycin Absolute CD4 Count Absolute CD19 Count Crossmatch 10/08/16 10/08/16 10/08/16 04:46 12:11 18:35 WBC RBC Hgb Hct MCV MCH RDW Plt Count [place] # Baso # Seg Neutrophils % Seg Neuts % (Manual) Lymphocytes % (Manual) Monocytes % (Manual) Eosinophils % (Manual) Nucleated RBC % Seg Neutrophils # Seg Neutrophils # Man Abs Lymphs (Manual) Lymphocytes # (Manual) Monocytes # (Manual) Eosinophils # (Manual) Percent Retic PT INR D-Dimer POC ABG pH POC ABG pCO2 POC ABG pO2 65 L Sodium Potassium Chloride Carbon Dioxide BUN Creatinine Glucose POC Glucose 199 H 187 H Lactic Acid Calcium Phosphorus Magnesium Ferritin Total Bilirubin Lactate Dehydrogenase Total Creatine Kinase CK-MB (CK-2) C-Reactive Protein NT-Pro-B Natriuret Pep Total Protein Albumin Triglycerides Urine WBC (Auto) Urine Creatinine Urine Total Protein Vancomycin Trough Random Vancomycin Absolute CD4 Count Absolute CD19 Count Crossmatch 10/08/16 10/09/16 10/09/16 23:38 04:43 05:38 WBC RBC Hgb Hct MCV MCH RDW Plt Count [place] # Baso # Seg Neutrophils % Seg Neuts % (Manual) Lymphocytes % (Manual) Monocytes % (Manual) Eosinophils % (Manual) Nucleated RBC % Seg Neutrophils # Seg Neutrophils # Man Abs Lymphs (Manual) Lymphocytes # (Manual) Monocytes # (Manual) Eosinophils # (Manual) Percent Retic PT INR D-Dimer POC ABG pH POC ABG pCO2 45.4 H POC ABG pO2 52 L Sodium Potassium Chloride Carbon Dioxide BUN Creatinine Glucose POC Glucose 202 H 182 H Lactic Acid Calcium Phosphorus Magnesium Ferritin Total Bilirubin Lactate Dehydrogenase Total Creatine Kinase CK-MB (CK-2) C-Reactive Protein NT-Pro-B Natriuret Pep Total Protein Albumin Triglycerides Urine WBC (Auto) Urine Creatinine Urine Total Protein Vancomycin Trough Random Vancomycin Absolute CD4 Count Absolute CD19 Count Crossmatch 10/09/16 10/09/16 10/09/16 07:40 07:40 10:00 WBC 37.3 H RBC 2.55 L Hgb 6.4 L Hct 20.7 L MCV MCH 25 L RDW 20.6 H Plt Count [place] # Baso # Seg Neutrophils % Seg Neuts % (Manual) Lymphocytes % (Manual) Monocytes % (Manual) Eosinophils % (Manual) Nucleated RBC % Seg Neutrophils # Seg Neutrophils # Man Abs Lymphs (Manual) Lymphocytes # (Manual) Monocytes # (Manual) Eosinophils # (Manual) Percent Retic PT INR D-Dimer POC ABG pH POC ABG pCO2 POC ABG pO2 Sodium 153 H Potassium 3.3 L Chloride 112.7 H Carbon Dioxide BUN 62 H Creatinine 1.7 H Glucose 146 H POC Glucose Lactic Acid Calcium Phosphorus Magnesium Ferritin Total Bilirubin Lactate Dehydrogenase Total Creatine Kinase CK-MB (CK-2) C-Reactive Protein NT-Pro-B Natriuret Pep Total Protein Albumin Triglycerides Urine WBC (Auto) Urine Creatinine Urine Total Protein Vancomycin Trough Random Vancomycin Absolute CD4 Count Absolute CD19 Count Crossmatch See Detail 10/09/16 10/09/16 10/10/16 12:06 17:08 00:01 WBC RBC Hgb Hct MCV MCH RDW Plt Count [place] # Baso # Seg Neutrophils % Seg Neuts % (Manual) Lymphocytes % (Manual) Monocytes % (Manual) Eosinophils % (Manual) Nucleated RBC % Seg Neutrophils # Seg Neutrophils # Man Abs Lymphs (Manual) Lymphocytes # (Manual) Monocytes # (Manual) Eosinophils # (Manual) Percent Retic PT INR D-Dimer POC ABG pH POC ABG pCO2 POC ABG pO2 Sodium Potassium Chloride Carbon Dioxide BUN Creatinine Glucose POC Glucose 214 H 152 H 189 H Lactic Acid Calcium Phosphorus Magnesium Ferritin Total Bilirubin Lactate Dehydrogenase Total Creatine Kinase CK-MB (CK-2) C-Reactive Protein NT-Pro-B Natriuret Pep Total Protein Albumin Triglycerides Urine WBC (Auto) Urine Creatinine Urine Total Protein Vancomycin Trough Random Vancomycin Absolute CD4 Count Absolute CD19 Count Crossmatch 10/10/16 10/10/16 10/10/16 04:25 05:28 06:00 WBC RBC Hgb Hct MCV MCH RDW Plt Count [place] # Baso # Seg Neutrophils % Seg Neuts % (Manual) Lymphocytes % (Manual) Monocytes % (Manual) Eosinophils % (Manual) Nucleated RBC % Seg Neutrophils # Seg Neutrophils # Man Abs Lymphs (Manual) Lymphocytes # (Manual) Monocytes # (Manual) Eosinophils # (Manual) Percent Retic PT INR D-Dimer POC ABG pH POC ABG pCO2 58.3 H POC ABG pO2 68 L Sodium Potassium Chloride Carbon Dioxide BUN Creatinine Glucose POC Glucose 155 H Lactic Acid Calcium Phosphorus Magnesium Ferritin Total Bilirubin Lactate Dehydrogenase Total Creatine Kinase CK-MB (CK-2) C-Reactive Protein NT-Pro-B Natriuret Pep Total Protein Albumin Triglycerides 407 H Urine WBC (Auto) Urine Creatinine Urine Total Protein Vancomycin Trough Random Vancomycin Absolute CD4 Count Absolute CD19 Count Crossmatch 10/10/16 10/10/16 10/10/16 06:00 06:00 06:00 WBC 38.5 H RBC 3.57 L Hgb 9.3 L Hct 30.1 L D MCV MCH 26 L RDW 22.0 H Plt Count 464 H [place] # Baso # Seg Neutrophils % Seg Neuts % (Manual) 81.0 H Lymphocytes % (Manual) 9.0 L Monocytes % (Manual) Eosinophils % (Manual) Nucleated RBC % 84.0 H Seg Neutrophils # Seg Neutrophils # Man 31.2 H Abs Lymphs (Manual) Lymphocytes # (Manual) Monocytes # (Manual) Eosinophils # (Manual) 1.2 H Percent Retic PT INR D-Dimer POC ABG pH POC ABG pCO2 POC ABG pO2 Sodium 153 H Potassium Chloride 108.3 H Carbon Dioxide 31 H BUN 62 H Creatinine 1.5 H Glucose 160 H POC Glucose Lactic Acid Calcium Phosphorus Magnesium Ferritin 782.0 H Total Bilirubin Lactate Dehydrogenase Total Creatine Kinase CK-MB (CK-2) C-Reactive Protein NT-Pro-B Natriuret Pep Total Protein Albumin Triglycerides Urine WBC (Auto) Urine Creatinine Urine Total Protein Vancomycin Trough Random Vancomycin Absolute CD4 Count Absolute CD19 Count Crossmatch 10/10/16 10/10/16 10/10/16 11:29 13:03 13:03 WBC RBC Hgb Hct MCV MCH RDW Plt Count [place] # Baso # Seg Neutrophils % Seg Neuts % (Manual) Lymphocytes % (Manual) Monocytes % (Manual) Eosinophils % (Manual) Nucleated RBC % Seg Neutrophils # Seg Neutrophils # Man Abs Lymphs (Manual) 3936 H Lymphocytes # (Manual) Monocytes # (Manual) Eosinophils # (Manual) Percent Retic PT 17.6 H INR 1.45 H D-Dimer POC ABG pH POC ABG pCO2 POC ABG pO2 Sodium Potassium Chloride Carbon Dioxide BUN Creatinine Glucose POC Glucose 177 H Lactic Acid Calcium Phosphorus Magnesium Ferritin Total Bilirubin Lactate Dehydrogenase Total Creatine Kinase CK-MB (CK-2) C-Reactive Protein NT-Pro-B Natriuret Pep Total Protein Albumin Triglycerides Urine WBC (Auto) Urine Creatinine Urine Total Protein Vancomycin Trough Random Vancomycin Absolute CD4 Count 2178 H Absolute CD19 Count 824 H Crossmatch 10/10/16 10/11/16 10/11/16 17:38 00:04 05:35 WBC RBC Hgb Hct MCV MCH RDW Plt Count [place] # Baso # Seg Neutrophils % Seg Neuts % (Manual) Lymphocytes % (Manual) Monocytes % (Manual) Eosinophils % (Manual) Nucleated RBC % Seg Neutrophils # Seg Neutrophils # Man Abs Lymphs (Manual) Lymphocytes # (Manual) Monocytes # (Manual) Eosinophils # (Manual) Percent Retic PT INR D-Dimer POC ABG pH POC ABG pCO2 56.6 H POC ABG pO2 63 L Sodium Potassium Chloride Carbon Dioxide BUN Creatinine Glucose POC Glucose 173 H 155 H Lactic Acid Calcium Phosphorus Magnesium Ferritin Total Bilirubin Lactate Dehydrogenase Total Creatine Kinase CK-MB (CK-2) C-Reactive Protein NT-Pro-B Natriuret Pep Total Protein Albumin Triglycerides Urine WBC (Auto) Urine Creatinine Urine Total Protein Vancomycin Trough Random Vancomycin Absolute CD4 Count Absolute CD19 Count Crossmatch 10/11/16 10/11/16 10/11/16 06:01 11:43 12:54 WBC 31.8 H RBC Hgb Hct MCV MCH RDW 17.8 H Plt Count [place] # Baso # Seg Neutrophils % Seg Neuts % (Manual) 84.0 H Lymphocytes % (Manual) 9.0 L Monocytes % (Manual) Eosinophils % (Manual) Nucleated RBC % 28.0 H Seg Neutrophils # Seg Neutrophils # Man 27.1 H Abs Lymphs (Manual) Lymphocytes # (Manual) Monocytes # (Manual) 1.6 H Eosinophils # (Manual) Percent Retic PT INR D-Dimer POC ABG pH POC ABG pCO2 POC ABG pO2 Sodium Potassium Chloride Carbon Dioxide BUN Creatinine Glucose POC Glucose 231 H 185 H Lactic Acid Calcium Phosphorus Magnesium Ferritin Total Bilirubin Lactate Dehydrogenase Total Creatine Kinase CK-MB (CK-2) C-Reactive Protein NT-Pro-B Natriuret Pep Total Protein Albumin Triglycerides Urine WBC (Auto) Urine Creatinine Urine Total Protein Vancomycin Trough Random Vancomycin Absolute CD4 Count Absolute CD19 Count Crossmatch 10/11/16 10/11/16 10/11/16 12:54 14:10 18:02 WBC RBC Hgb Hct MCV MCH RDW Plt Count [place] # Baso # Seg Neutrophils % Seg Neuts % (Manual) Lymphocytes % (Manual) Monocytes % (Manual) Eosinophils % (Manual) Nucleated RBC % Seg Neutrophils # Seg Neutrophils # Man Abs Lymphs (Manual) Lymphocytes # (Manual) Monocytes # (Manual) Eosinophils # (Manual) Percent Retic PT INR D-Dimer POC ABG pH 7.311 L POC ABG pCO2 71.4 H POC ABG pO2 59 L Sodium Potassium Chloride 97.1 L Carbon Dioxide BUN 57 H Creatinine 1.6 H Glucose 369 H POC Glucose 206 H Lactic Acid Calcium 8.2 L Phosphorus Magnesium Ferritin Total Bilirubin Lactate Dehydrogenase Total Creatine Kinase CK-MB (CK-2) C-Reactive Protein NT-Pro-B Natriuret Pep Total Protein Albumin Triglycerides Urine WBC (Auto) Urine Creatinine Urine Total Protein Vancomycin Trough Random Vancomycin Absolute CD4 Count Absolute CD19 Count Crossmatch 10/11/16 10/11/16 10/12/16 20:57 21:23 00:43 WBC RBC Hgb Hct MCV MCH RDW Plt Count [place] # Baso # Seg Neutrophils % Seg Neuts % (Manual) Lymphocytes % (Manual) Monocytes % (Manual) Eosinophils % (Manual) Nucleated RBC % Seg Neutrophils # Seg Neutrophils # Man Abs Lymphs (Manual) Lymphocytes # (Manual) Monocytes # (Manual) Eosinophils # (Manual) Percent Retic PT INR D-Dimer POC ABG pH 7.242 L POC ABG pCO2 88.4 H POC ABG pO2 57 L Sodium Potassium Chloride Carbon Dioxide BUN Creatinine Glucose POC Glucose 212 H Lactic Acid Calcium Phosphorus Magnesium Ferritin Total Bilirubin Lactate Dehydrogenase Total Creatine Kinase CK-MB (CK-2) C-Reactive Protein 3.00 H NT-Pro-B Natriuret Pep Total Protein Albumin Triglycerides Urine WBC (Auto) Urine Creatinine Urine Total Protein Vancomycin Trough Random Vancomycin Absolute CD4 Count Absolute CD19 Count Crossmatch 10/12/16 10/12/16 10/12/16 05:49 06:03 06:57 WBC 37.0 H RBC Hgb Hct MCV MCH RDW 18.0 H Plt Count [place] # 2.0 H Baso # 0.2 H Seg Neutrophils % 86.7 H Seg Neuts % (Manual) 91.5 H Lymphocytes % (Manual) 6.0 L Monocytes % (Manual) Eosinophils % (Manual) Nucleated RBC % 15.5 H Seg Neutrophils # 30.6 H Seg Neutrophils # Man 33.9 H Abs Lymphs (Manual) Lymphocytes # (Manual) Monocytes # (Manual) Eosinophils # (Manual) Percent Retic PT INR D-Dimer POC ABG pH 7.289 L POC ABG pCO2 82.4 H POC ABG pO2 65 L Sodium Potassium Chloride Carbon Dioxide BUN Creatinine Glucose POC Glucose 230 H Lactic Acid Calcium Phosphorus Magnesium Ferritin Total Bilirubin Lactate Dehydrogenase Total Creatine Kinase CK-MB (CK-2) C-Reactive Protein NT-Pro-B Natriuret Pep Total Protein Albumin Triglycerides Urine WBC (Auto) Urine Creatinine Urine Total Protein Vancomycin Trough Random Vancomycin Absolute CD4 Count Absolute CD19 Count Crossmatch 10/12/16 10/12/16 10/12/16 06:57 11:59 17:00 WBC RBC Hgb Hct MCV MCH RDW Plt Count [place] # Baso # Seg Neutrophils % Seg Neuts % (Manual) Lymphocytes % (Manual) Monocytes % (Manual) Eosinophils % (Manual) Nucleated RBC % Seg Neutrophils # Seg Neutrophils # Man Abs Lymphs (Manual) Lymphocytes # (Manual) Monocytes # (Manual) Eosinophils # (Manual) Percent Retic PT INR D-Dimer POC ABG pH POC ABG pCO2 POC ABG pO2 Sodium 151 H D 130 L D Potassium Chloride Carbon Dioxide 32 H BUN 62 H Creatinine 1.6 H Glucose 231 H POC Glucose 222 H Lactic Acid Calcium Phosphorus 4.90 H Magnesium Ferritin Total Bilirubin Lactate Dehydrogenase Total Creatine Kinase CK-MB (CK-2) C-Reactive Protein NT-Pro-B Natriuret Pep Total Protein Albumin Triglycerides Urine WBC (Auto) Urine Creatinine Urine Total Protein Vancomycin Trough Random Vancomycin Absolute CD4 Count Absolute CD19 Count Crossmatch 10/12/16 10/12/16 10/12/16 17:41 22:04 23:25 WBC RBC Hgb Hct MCV MCH RDW Plt Count [place] # Baso # Seg Neutrophils % Seg Neuts % (Manual) Lymphocytes % (Manual) Monocytes % (Manual) Eosinophils % (Manual) Nucleated RBC % Seg Neutrophils # Seg Neutrophils # Man Abs Lymphs (Manual) Lymphocytes # (Manual) Monocytes # (Manual) Eosinophils # (Manual) Percent Retic PT INR D-Dimer POC ABG pH 7.264 L POC ABG pCO2 89.1 H POC ABG pO2 62 L Sodium Potassium Chloride Carbon Dioxide BUN Creatinine Glucose POC Glucose 223 H 160 H Lactic Acid Calcium Phosphorus Magnesium Ferritin Total Bilirubin Lactate Dehydrogenase Total Creatine Kinase CK-MB (CK-2) C-Reactive Protein NT-Pro-B Natriuret Pep Total Protein Albumin Triglycerides Urine WBC (Auto) Urine Creatinine Urine Total Protein Vancomycin Trough Random Vancomycin Absolute CD4 Count Absolute CD19 Count Crossmatch 10/13/16 10/13/16 10/13/16 05:30 06:00 06:00 WBC 25.9 H RBC Hgb Hct MCV MCH RDW 18.1 H Plt Count [place] # Baso # Seg Neutrophils % Seg Neuts % (Manual) 85.0 H Lymphocytes % (Manual) 9.0 L Monocytes % (Manual) Eosinophils % (Manual) Nucleated RBC % 6.0 H Seg Neutrophils # Seg Neutrophils # Man 22.0 H Abs Lymphs (Manual) Lymphocytes # (Manual) Monocytes # (Manual) 1.4 H Eosinophils # (Manual) Percent Retic PT INR D-Dimer POC ABG pH 7.281 L POC ABG pCO2 89.6 H POC ABG pO2 63 L Sodium 148 H D Potassium Chloride Carbon Dioxide 36 H BUN 58 H Creatinine 1.3 H Glucose 189 H POC Glucose Lactic Acid Calcium Phosphorus Magnesium Ferritin Total Bilirubin Lactate Dehydrogenase Total Creatine Kinase CK-MB (CK-2) C-Reactive Protein NT-Pro-B Natriuret Pep Total Protein Albumin Triglycerides Urine WBC (Auto) Urine Creatinine Urine Total Protein Vancomycin Trough Random Vancomycin Absolute CD4 Count Absolute CD19 Count Crossmatch 10/13/16 10/13/16 10/13/16 06:20 11:10 17:26 WBC RBC Hgb Hct MCV MCH RDW Plt Count [place] # Baso # Seg Neutrophils % Seg Neuts % (Manual) Lymphocytes % (Manual) Monocytes % (Manual) Eosinophils % (Manual) Nucleated RBC % Seg Neutrophils # Seg Neutrophils # Man Abs Lymphs (Manual) Lymphocytes # (Manual) Monocytes # (Manual) Eosinophils # (Manual) Percent Retic PT INR D-Dimer POC ABG pH POC ABG pCO2 POC ABG pO2 Sodium Potassium Chloride Carbon Dioxide BUN Creatinine Glucose POC Glucose 192 H 198 H 162 H Lactic Acid Calcium Phosphorus Magnesium Ferritin Total Bilirubin Lactate Dehydrogenase Total Creatine Kinase CK-MB (CK-2) C-Reactive Protein NT-Pro-B Natriuret Pep Total Protein Albumin Triglycerides Urine WBC (Auto) Urine Creatinine Urine Total Protein Vancomycin Trough Random Vancomycin Absolute CD4 Count Absolute CD19 Count Crossmatch 10/13/16 10/13/16 10/13/16 20:40 20:57 23:33 WBC RBC Hgb Hct MCV MCH RDW Plt Count [place] # Baso # Seg Neutrophils % Seg Neuts % (Manual) Lymphocytes % (Manual) Monocytes % (Manual) Eosinophils % (Manual) Nucleated RBC % Seg Neutrophils # Seg Neutrophils # Man Abs Lymphs (Manual) Lymphocytes # (Manual) Monocytes # (Manual) Eosinophils # (Manual) Percent Retic PT INR D-Dimer POC ABG pH 7.201 L 7.455 H POC ABG pCO2 111.2 H 54.2 H POC ABG pO2 45 L 57 L Sodium 148 H Potassium Chloride Carbon Dioxide BUN Creatinine Glucose POC Glucose Lactic Acid Calcium Phosphorus Magnesium Ferritin Total Bilirubin Lactate Dehydrogenase Total Creatine Kinase CK-MB (CK-2) C-Reactive Protein NT-Pro-B Natriuret Pep Total Protein Albumin Triglycerides Urine WBC (Auto) Urine Creatinine Urine Total Protein Vancomycin Trough Random Vancomycin Absolute CD4 Count Absolute CD19 Count Crossmatch 10/14/16 10/14/16 10/14/16 00:48 04:12 05:30 WBC 23.1 H RBC 3.49 L Hgb 9.9 L Hct MCV MCH RDW 16.9 H Plt Count [place] # Baso # Seg Neutrophils % Seg Neuts % (Manual) 82.0 H Lymphocytes % (Manual) 9.0 L Monocytes % (Manual) Eosinophils % (Manual) Nucleated RBC % 2.0 H Seg Neutrophils # Seg Neutrophils # Man 18.9 H Abs Lymphs (Manual) Lymphocytes # (Manual) Monocytes # (Manual) 1.4 H Eosinophils # (Manual) Percent Retic PT INR D-Dimer POC ABG pH 7.497 H POC ABG pCO2 49.4 H POC ABG pO2 60 L Sodium Potassium Chloride Carbon Dioxide BUN Creatinine Glucose POC Glucose 147 H Lactic Acid Calcium Phosphorus Magnesium Ferritin Total Bilirubin Lactate Dehydrogenase Total Creatine Kinase CK-MB (CK-2) C-Reactive Protein NT-Pro-B Natriuret Pep Total Protein Albumin Triglycerides Urine WBC (Auto) Urine Creatinine Urine Total Protein Vancomycin Trough Random Vancomycin Absolute CD4 Count Absolute CD19 Count Crossmatch 10/14/16 10/14/16 10/14/16 05:30 05:30 05:53 WBC RBC Hgb Hct MCV MCH RDW Plt Count [place] # Baso # Seg Neutrophils % Seg Neuts % (Manual) Lymphocytes % (Manual) Monocytes % (Manual) Eosinophils % (Manual) Nucleated RBC % Seg Neutrophils # Seg Neutrophils # Man Abs Lymphs (Manual) Lymphocytes # (Manual) Monocytes # (Manual) Eosinophils # (Manual) Percent Retic PT INR D-Dimer POC ABG pH POC ABG pCO2 POC ABG pO2 Sodium 146 H Potassium Chloride Carbon Dioxide 35 H BUN 56 H Creatinine 1.3 H Glucose 155 H POC Glucose 156 H Lactic Acid Calcium Phosphorus 1.90 L D Magnesium 2.90 H Ferritin Total Bilirubin Lactate Dehydrogenase Total Creatine Kinase CK-MB (CK-2) C-Reactive Protein NT-Pro-B Natriuret Pep Total Protein Albumin Triglycerides Urine WBC (Auto) Urine Creatinine Urine Total Protein Vancomycin Trough Random Vancomycin Absolute CD4 Count Absolute CD19 Count Crossmatch 10/14/16 10/14/16 10/14/16 12:05 14:34 17:33 WBC RBC Hgb Hct MCV MCH RDW Plt Count [place] # Baso # Seg Neutrophils % Seg Neuts % (Manual) Lymphocytes % (Manual) Monocytes % (Manual) Eosinophils % (Manual) Nucleated RBC % Seg Neutrophils # Seg Neutrophils # Man Abs Lymphs (Manual) Lymphocytes # (Manual) Monocytes # (Manual) Eosinophils # (Manual) Percent Retic PT INR D-Dimer POC ABG pH POC ABG pCO2 57.4 H POC ABG pO2 177 H Sodium Potassium Chloride Carbon Dioxide BUN Creatinine Glucose POC Glucose 145 H 172 H Lactic Acid Calcium Phosphorus Magnesium Ferritin Total Bilirubin Lactate Dehydrogenase Total Creatine Kinase CK-MB (CK-2) C-Reactive Protein NT-Pro-B Natriuret Pep Total Protein Albumin Triglycerides Urine WBC (Auto) Urine Creatinine Urine Total Protein Vancomycin Trough Random Vancomycin Absolute CD4 Count Absolute CD19 Count Crossmatch 10/14/16 10/14/16 10/15/16 21:57 23:31 05:10 WBC 23.9 H RBC 3.33 L Hgb 9.5 L Hct 29.7 L MCV MCH RDW 16.8 H Plt Count [place] # Baso # Seg Neutrophils % Seg Neuts % (Manual) Lymphocytes % (Manual) Monocytes % (Manual) Eosinophils % (Manual) Nucleated RBC % 4.0 H Seg Neutrophils # Seg Neutrophils # Man 15.3 H Abs Lymphs (Manual) Lymphocytes # (Manual) Monocytes # (Manual) 1.7 H Eosinophils # (Manual) 0.5 H Percent Retic PT INR D-Dimer POC ABG pH POC ABG pCO2 53.6 H POC ABG pO2 60 L Sodium Potassium Chloride Carbon Dioxide BUN Creatinine Glucose POC Glucose 201 H Lactic Acid Calcium Phosphorus Magnesium Ferritin Total Bilirubin Lactate Dehydrogenase Total Creatine Kinase CK-MB (CK-2) C-Reactive Protein NT-Pro-B Natriuret Pep Total Protein Albumin Triglycerides Urine WBC (Auto) Urine Creatinine Urine Total Protein Vancomycin Trough Random Vancomycin Absolute CD4 Count Absolute CD19 Count Crossmatch 10/15/16 10/15/16 10/15/16 05:10 05:10 05:40 WBC RBC Hgb Hct MCV MCH RDW Plt Count [place] # Baso # Seg Neutrophils % Seg Neuts % (Manual) Lymphocytes % (Manual) Monocytes % (Manual) Eosinophils % (Manual) Nucleated RBC % Seg Neutrophils # Seg Neutrophils # Man Abs Lymphs (Manual) Lymphocytes # (Manual) Monocytes # (Manual) Eosinophils # (Manual) Percent Retic PT INR D-Dimer POC ABG pH POC ABG pCO2 POC ABG pO2 Sodium Potassium 3.5 L Chloride Carbon Dioxide 33 H BUN 61 H Creatinine Glucose 127 H POC Glucose 145 H Lactic Acid Calcium 8.2 L Phosphorus 4.90 H D Magnesium 2.90 H Ferritin Total Bilirubin Lactate Dehydrogenase Total Creatine Kinase CK-MB (CK-2) C-Reactive Protein NT-Pro-B Natriuret Pep Total Protein Albumin Triglycerides Urine WBC (Auto) Urine Creatinine Urine Total Protein Vancomycin Trough Random Vancomycin Absolute CD4 Count Absolute CD19 Count Crossmatch 10/15/16 10/15/16 10/15/16 06:17 11:09 17:50 WBC RBC Hgb Hct MCV MCH RDW Plt Count [place] # Baso # Seg Neutrophils % Seg Neuts % (Manual) Lymphocytes % (Manual) Monocytes % (Manual) Eosinophils % (Manual) Nucleated RBC % Seg Neutrophils # Seg Neutrophils # Man Abs Lymphs (Manual) Lymphocytes # (Manual) Monocytes # (Manual) Eosinophils # (Manual) Percent Retic PT INR D-Dimer POC ABG pH POC ABG pCO2 65.2 H POC ABG pO2 Sodium Potassium Chloride Carbon Dioxide BUN Creatinine Glucose POC Glucose 169 H 210 H Lactic Acid Calcium Phosphorus Magnesium Ferritin Total Bilirubin Lactate Dehydrogenase Total Creatine Kinase CK-MB (CK-2) C-Reactive Protein NT-Pro-B Natriuret Pep Total Protein Albumin Triglycerides Urine WBC (Auto) Urine Creatinine Urine Total Protein Vancomycin Trough Random Vancomycin Absolute CD4 Count Absolute CD19 Count Crossmatch 10/15/16 10/16/16 10/16/16 23:39 05:51 06:07 WBC RBC Hgb Hct MCV MCH RDW Plt Count [place] # Baso # Seg Neutrophils % Seg Neuts % (Manual) Lymphocytes % (Manual) Monocytes % (Manual) Eosinophils % (Manual) Nucleated RBC % Seg Neutrophils # Seg Neutrophils # Man Abs Lymphs (Manual) Lymphocytes # (Manual) Monocytes # (Manual) Eosinophils # (Manual) Percent Retic PT INR D-Dimer POC ABG pH POC ABG pCO2 56.8 H POC ABG pO2 50 L Sodium Potassium Chloride Carbon Dioxide BUN Creatinine Glucose POC Glucose 291 H 216 H Lactic Acid Calcium Phosphorus Magnesium Ferritin Total Bilirubin Lactate Dehydrogenase Total Creatine Kinase CK-MB (CK-2) C-Reactive Protein NT-Pro-B Natriuret Pep Total Protein Albumin Triglycerides Urine WBC (Auto) Urine Creatinine Urine Total Protein Vancomycin Trough Random Vancomycin Absolute CD4 Count Absolute CD19 Count Crossmatch 10/16/16 10/16/16 10/16/16 11:52 15:00 15:00 WBC 22.2 H RBC 3.13 L Hgb 9.0 L Hct 28.1 L MCV MCH RDW 15.9 H Plt Count [place] # Baso # Seg Neutrophils % Seg Neuts % (Manual) 96.0 H Lymphocytes % (Manual) 3.0 L Monocytes % (Manual) Eosinophils % (Manual) Nucleated RBC % 1.0 H Seg Neutrophils # Seg Neutrophils # Man 21.3 H Abs Lymphs (Manual) Lymphocytes # (Manual) 0.7 L Monocytes # (Manual) Eosinophils # (Manual) Percent Retic PT INR D-Dimer POC ABG pH POC ABG pCO2 POC ABG pO2 Sodium 146 H Potassium Chloride Carbon Dioxide 32 H BUN 55 H Creatinine Glucose 234 H POC Glucose 237 H Lactic Acid Calcium Phosphorus Magnesium Ferritin Total Bilirubin Lactate Dehydrogenase Total Creatine Kinase CK-MB (CK-2) C-Reactive Protein NT-Pro-B Natriuret Pep Total Protein Albumin Triglycerides Urine WBC (Auto) Urine Creatinine Urine Total Protein Vancomycin Trough Random Vancomycin Absolute CD4 Count Absolute CD19 Count Crossmatch 10/16/16 10/17/16 10/17/16 17:28 00:03 03:56 WBC 21.4 H RBC 3.18 L Hgb 8.9 L Hct 28.0 L MCV MCH RDW 16.0 H Plt Count [place] # Baso # Seg Neutrophils % Seg Neuts % (Manual) 98.0 H Lymphocytes % (Manual) 2.0 L Monocytes % (Manual) Eosinophils % (Manual) Nucleated RBC % 1.0 H Seg Neutrophils # 20.2 H Seg Neutrophils # Man 21.0 H Abs Lymphs (Manual) Lymphocytes # (Manual) 0.4 L Monocytes # (Manual) Eosinophils # (Manual) Percent Retic PT INR D-Dimer POC ABG pH POC ABG pCO2 POC ABG pO2 Sodium Potassium Chloride Carbon Dioxide BUN Creatinine Glucose POC Glucose 258 H 192 H Lactic Acid Calcium Phosphorus Magnesium Ferritin Total Bilirubin Lactate Dehydrogenase Total Creatine Kinase CK-MB (CK-2) C-Reactive Protein NT-Pro-B Natriuret Pep Total Protein Albumin Triglycerides Urine WBC (Auto) Urine Creatinine Urine Total Protein Vancomycin Trough Random Vancomycin Absolute CD4 Count Absolute CD19 Count Crossmatch 10/17/16 10/17/16 10/17/16 05:00 06:56 12:27 WBC RBC Hgb Hct MCV MCH RDW Plt Count [place] # Baso # Seg Neutrophils % Seg Neuts % (Manual) Lymphocytes % (Manual) Monocytes % (Manual) Eosinophils % (Manual) Nucleated RBC % Seg Neutrophils # Seg Neutrophils # Man Abs Lymphs (Manual) Lymphocytes # (Manual) Monocytes # (Manual) Eosinophils # (Manual) Percent Retic PT INR D-Dimer POC ABG pH POC ABG pCO2 64.3 H POC ABG pO2 72 L Sodium 149 H Potassium Chloride Carbon Dioxide 34 H BUN 50 H Creatinine Glucose 203 H POC Glucose 252 H Lactic Acid Calcium Phosphorus Magnesium Ferritin Total Bilirubin Lactate Dehydrogenase Total Creatine Kinase CK-MB (CK-2) C-Reactive Protein NT-Pro-B Natriuret Pep Total Protein Albumin Triglycerides Urine WBC (Auto) Urine Creatinine Urine Total Protein Vancomycin Trough Random Vancomycin Absolute CD4 Count Absolute CD19 Count Crossmatch 10/17/16 10/17/16 10/18/16 18:09 23:35 04:45 WBC RBC Hgb Hct MCV MCH RDW Plt Count [place] # Baso # Seg Neutrophils % Seg Neuts % (Manual) Lymphocytes % (Manual) Monocytes % (Manual) Eosinophils % (Manual) Nucleated RBC % Seg Neutrophils # Seg Neutrophils # Man Abs Lymphs (Manual) Lymphocytes # (Manual) Monocytes # (Manual) Eosinophils # (Manual) Percent Retic PT INR D-Dimer POC ABG pH POC ABG pCO2 66.8 H POC ABG pO2 59 L Sodium Potassium Chloride Carbon Dioxide BUN Creatinine Glucose POC Glucose 275 H 201 H Lactic Acid Calcium Phosphorus Magnesium Ferritin Total Bilirubin Lactate Dehydrogenase Total Creatine Kinase CK-MB (CK-2) C-Reactive Protein NT-Pro-B Natriuret Pep Total Protein Albumin Triglycerides Urine WBC (Auto) Urine Creatinine Urine Total Protein Vancomycin Trough Random Vancomycin Absolute CD4 Count Absolute CD19 Count Crossmatch 10/18/16 10/18/16 10/18/16 05:11 05:11 05:33 WBC 24.0 H RBC 3.54 L Hgb 9.7 L Hct MCV MCH 27 L RDW 15.8 H Plt Count [place] # Baso # Seg Neutrophils % Seg Neuts % (Manual) 94.0 H Lymphocytes % (Manual) 5.0 L Monocytes % (Manual) Eosinophils % (Manual) Nucleated RBC % 2.0 H Seg Neutrophils # Seg Neutrophils # Man 22.6 H Abs Lymphs (Manual) Lymphocytes # (Manual) Monocytes # (Manual) Eosinophils # (Manual) Percent Retic PT INR D-Dimer POC ABG pH POC ABG pCO2 POC ABG pO2 Sodium Potassium Chloride Carbon Dioxide 35 H BUN 53 H Creatinine Glucose 236 H POC Glucose 232 H Lactic Acid Calcium Phosphorus Magnesium Ferritin Total Bilirubin Lactate Dehydrogenase Total Creatine Kinase CK-MB (CK-2) C-Reactive Protein NT-Pro-B Natriuret Pep Total Protein Albumin Triglycerides Urine WBC (Auto) Urine Creatinine Urine Total Protein Vancomycin Trough Random Vancomycin Absolute CD4 Count Absolute CD19 Count Crossmatch 10/18/16 10/18/16 10/18/16 12:22 17:18 23:41 WBC RBC Hgb Hct MCV MCH RDW Plt Count [place] # Baso # Seg Neutrophils % Seg Neuts % (Manual) Lymphocytes % (Manual) Monocytes % (Manual) Eosinophils % (Manual) Nucleated RBC % Seg Neutrophils # Seg Neutrophils # Man Abs Lymphs (Manual) Lymphocytes # (Manual) Monocytes # (Manual) Eosinophils # (Manual) Percent Retic PT INR D-Dimer POC ABG pH POC ABG pCO2 POC ABG pO2 Sodium Potassium Chloride Carbon Dioxide BUN Creatinine Glucose POC Glucose 237 H 300 H 254 H Lactic Acid Calcium Phosphorus Magnesium Ferritin Total Bilirubin Lactate Dehydrogenase Total Creatine Kinase CK-MB (CK-2) C-Reactive Protein NT-Pro-B Natriuret Pep Total Protein Albumin Triglycerides Urine WBC (Auto) Urine Creatinine Urine Total Protein Vancomycin Trough Random Vancomycin Absolute CD4 Count Absolute CD19 Count Crossmatch 10/19/16 10/19/16 10/19/16 03:45 04:32 05:46 WBC RBC Hgb Hct MCV MCH RDW Plt Count [place] # Baso # Seg Neutrophils % Seg Neuts % (Manual) Lymphocytes % (Manual) Monocytes % (Manual) Eosinophils % (Manual) Nucleated RBC % Seg Neutrophils # Seg Neutrophils # Man Abs Lymphs (Manual) Lymphocytes # (Manual) Monocytes # (Manual) Eosinophils # (Manual) Percent Retic PT INR D-Dimer POC ABG pH POC ABG pCO2 66.7 H POC ABG pO2 55 L Sodium Potassium Chloride Carbon Dioxide BUN Creatinine Glucose POC Glucose 273 H Lactic Acid Calcium Phosphorus Magnesium Ferritin Total Bilirubin Lactate Dehydrogenase Total Creatine Kinase CK-MB (CK-2) C-Reactive Protein NT-Pro-B Natriuret Pep Total Protein Albumin Triglycerides 287 H Urine WBC (Auto) Urine Creatinine Urine Total Protein Vancomycin Trough Random Vancomycin Absolute CD4 Count Absolute CD19 Count Crossmatch 10/19/16 10/19/16 10/19/16 10:18 10:18 12:07 WBC 23.0 H RBC 3.36 L Hgb 9.4 L Hct 29.7 L MCV MCH RDW 15.5 H Plt Count [place] # Baso # Seg Neutrophils % Seg Neuts % (Manual) Lymphocytes % (Manual) Monocytes % (Manual) Eosinophils % (Manual) Nucleated RBC % Seg Neutrophils # Seg Neutrophils # Man Abs Lymphs (Manual) Lymphocytes # (Manual) Monocytes # (Manual) Eosinophils # (Manual) Percent Retic PT INR D-Dimer POC ABG pH POC ABG pCO2 POC ABG pO2 Sodium Potassium Chloride 93.9 L Carbon Dioxide 35 H BUN 48 H Creatinine Glucose 385 H POC Glucose 226 H Lactic Acid Calcium Phosphorus Magnesium Ferritin Total Bilirubin Lactate Dehydrogenase Total Creatine Kinase CK-MB (CK-2) C-Reactive Protein NT-Pro-B Natriuret Pep Total Protein Albumin Triglycerides Urine WBC (Auto) Urine Creatinine Urine Total Protein Vancomycin Trough Random Vancomycin Absolute CD4 Count Absolute CD19 Count Crossmatch 10/19/16 10/19/16 10/20/16 17:44 23:42 04:40 WBC RBC Hgb Hct MCV MCH RDW Plt Count [place] # Baso # Seg Neutrophils % Seg Neuts % (Manual) Lymphocytes % (Manual) Monocytes % (Manual) Eosinophils % (Manual) Nucleated RBC % Seg Neutrophils # Seg Neutrophils # Man Abs Lymphs (Manual) Lymphocytes # (Manual) Monocytes # (Manual) Eosinophils # (Manual) Percent Retic PT INR D-Dimer POC ABG pH 7.466 H POC ABG pCO2 54.0 H POC ABG pO2 78 L Sodium Potassium Chloride Carbon Dioxide BUN Creatinine Glucose POC Glucose 268 H 283 H Lactic Acid Calcium Phosphorus Magnesium Ferritin Total Bilirubin Lactate Dehydrogenase Total Creatine Kinase CK-MB (CK-2) C-Reactive Protein NT-Pro-B Natriuret Pep Total Protein Albumin Triglycerides Urine WBC (Auto) Urine Creatinine Urine Total Protein Vancomycin Trough Random Vancomycin Absolute CD4 Count Absolute CD19 Count Crossmatch 10/20/16 10/20/16 10/20/16 05:34 12:04 18:31 WBC RBC Hgb Hct MCV MCH RDW Plt Count [place] # Baso # Seg Neutrophils % Seg Neuts % (Manual) Lymphocytes % (Manual) Monocytes % (Manual) Eosinophils % (Manual) Nucleated RBC % Seg Neutrophils # Seg Neutrophils # Man Abs Lymphs (Manual) Lymphocytes # (Manual) Monocytes # (Manual) Eosinophils # (Manual) Percent Retic PT INR D-Dimer POC ABG pH POC ABG pCO2 POC ABG pO2 Sodium Potassium Chloride Carbon Dioxide BUN Creatinine Glucose POC Glucose 257 H 247 H 240 H Lactic Acid Calcium Phosphorus Magnesium Ferritin Total Bilirubin Lactate Dehydrogenase Total Creatine Kinase CK-MB (CK-2) C-Reactive Protein NT-Pro-B Natriuret Pep Total Protein Albumin Triglycerides Urine WBC (Auto) Urine Creatinine Urine Total Protein Vancomycin Trough Random Vancomycin Absolute CD4 Count Absolute CD19 Count Crossmatch 10/20/16 10/20/16 10/20/16 21:30 Unknown Unknown WBC 21.1 H RBC 3.62 L Hgb Hct MCV MCH RDW 15.3 H Plt Count [place] # Baso # Seg Neutrophils % Seg Neuts % (Manual) Lymphocytes % (Manual) Monocytes % (Manual) Eosinophils % (Manual) Nucleated RBC % Seg Neutrophils # Seg Neutrophils # Man Abs Lymphs (Manual) Lymphocytes # (Manual) Monocytes # (Manual) Eosinophils # (Manual) Percent Retic PT INR D-Dimer POC ABG pH POC ABG pCO2 59.2 H POC ABG pO2 57 L Sodium Potassium Chloride Carbon Dioxide 34 H BUN 50 H Creatinine 0.6 L Glucose 254 H POC Glucose Lactic Acid Calcium Phosphorus Magnesium Ferritin Total Bilirubin Lactate Dehydrogenase Total Creatine Kinase CK-MB (CK-2) C-Reactive Protein NT-Pro-B Natriuret Pep Total Protein Albumin Triglycerides Urine WBC (Auto) Urine Creatinine Urine Total Protein Vancomycin Trough Random Vancomycin Absolute CD4 Count Absolute CD19 Count Crossmatch 10/21/16 10/21/16 10/21/16 00:24 04:57 05:35 WBC RBC Hgb Hct MCV MCH RDW Plt Count [place] # Baso # Seg Neutrophils % Seg Neuts % (Manual) Lymphocytes % (Manual) Monocytes % (Manual) Eosinophils % (Manual) Nucleated RBC % Seg Neutrophils # Seg Neutrophils # Man Abs Lymphs (Manual) Lymphocytes # (Manual) Monocytes # (Manual) Eosinophils # (Manual) Percent Retic PT INR D-Dimer POC ABG pH POC ABG pCO2 57.7 H POC ABG pO2 70 L Sodium Potassium Chloride Carbon Dioxide BUN Creatinine Glucose POC Glucose 250 H 246 H Lactic Acid Calcium Phosphorus Magnesium Ferritin Total Bilirubin Lactate Dehydrogenase Total Creatine Kinase CK-MB (CK-2) C-Reactive Protein NT-Pro-B Natriuret Pep Total Protein Albumin Triglycerides Urine WBC (Auto) Urine Creatinine Urine Total Protein Vancomycin Trough Random Vancomycin Absolute CD4 Count Absolute CD19 Count Crossmatch 10/21/16 10/21/16 10/22/16 11:40 16:58 00:31 WBC RBC Hgb Hct MCV MCH RDW Plt Count [place] # Baso # Seg Neutrophils % Seg Neuts % (Manual) Lymphocytes % (Manual) Monocytes % (Manual) Eosinophils % (Manual) Nucleated RBC % Seg Neutrophils # Seg Neutrophils # Man Abs Lymphs (Manual) Lymphocytes # (Manual) Monocytes # (Manual) Eosinophils # (Manual) Percent Retic PT INR D-Dimer POC ABG pH POC ABG pCO2 POC ABG pO2 Sodium Potassium Chloride Carbon Dioxide BUN Creatinine Glucose POC Glucose 271 H 232 H 185 H Lactic Acid Calcium Phosphorus Magnesium Ferritin Total Bilirubin Lactate Dehydrogenase Total Creatine Kinase CK-MB (CK-2) C-Reactive Protein NT-Pro-B Natriuret Pep Total Protein Albumin Triglycerides Urine WBC (Auto) Urine Creatinine Urine Total Protein Vancomycin Trough Random Vancomycin Absolute CD4 Count Absolute CD19 Count Crossmatch 10/22/16 10/22/16 04:52 05:43 WBC RBC Hgb Hct MCV MCH RDW Plt Count [place] # Baso # Seg Neutrophils % Seg Neuts % (Manual) Lymphocytes % (Manual) Monocytes % (Manual) Eosinophils % (Manual) Nucleated RBC % Seg Neutrophils # Seg Neutrophils # Man Abs Lymphs (Manual) Lymphocytes # (Manual) Monocytes # (Manual) Eosinophils # (Manual) Percent Retic PT INR D-Dimer POC ABG pH 7.476 H POC ABG pCO2 54.6 H POC ABG pO2 75 L Sodium Potassium Chloride Carbon Dioxide BUN Creatinine Glucose POC Glucose 126 H Lactic Acid Calcium Phosphorus Magnesium Ferritin Total Bilirubin Lactate Dehydrogenase Total Creatine Kinase CK-MB (CK-2) C-Reactive Protein NT-Pro-B Natriuret Pep Total Protein Albumin Triglycerides Urine WBC (Auto) Urine Creatinine Urine Total Protein Vancomycin Trough Random Vancomycin Absolute CD4 Count Absolute CD19 Count Crossmatch Allied health notes reviewed: RT
[2016-10-22] MEDS ORDERED: DELTASONE PO SCH (10:00)
[2016-10-22] MEDS ORDERED: LEVEMIR SUB-Q SCH (10:00)
[2016-10-22] MEDS ORDERED: DURAGESIC TD SCH (12:00)
--- NOTE | 2016-10-22 12:31 | Progress Note ---
Assessment and Plan - Patient Problems (1) Healthcare-associated pneumonia Current Visit: Yes Status: Acute Plan to address problem: 1. Continue Zyvox for now while still on steroids. Now being tapered. 2. If patient remains stable, can discontinue Zyvox on 10/24/16. Sooner if steroids are stopped. Subjective Date of service: 10/22/16 Principal diagnosis: Acute Hypoxemic Respiratory Failure; ARDS Interval history: Remains in ICU. Continues on Zyvox coverage. Improving with planned transfer to LTAC today. Objective - Exam Narrative Exam: intubated, awake; nods head to communicate - Constitutional Vitals: Vital Signs Temp Pulse Resp BP Pulse Ox 99.2 F 126 H 27 H 121/64 94 10/22/16 08:00 10/22/16 11:36 10/22/16 11:30 10/22/16 11:36 10/22/16 11:36 Temperature -Last 24 Hours Temperature 99.2 F Temperature 98 F Temperature 98 F Temperature 98 F Temperature 98.6 F General appearance: Present: obese - EENT Eyes: exopthalmos - Neck Neck: supple - Respiratory Respiratory: bilateral: CTA, negative: rales, wheezing Extremities: No edema - Gastrointestinal General gastrointestinal: Present: soft, non-distended - Genitourinary Female genitourinary: other (Montes with normal-appearing urine) - Integumentary Integumentary: clear, warm, no rash - Neurologic Neurologic: moves all extremities - Additional findings Additional findings: PICC left arm and right femoral vascath - Labs CBC & Chem 7: 10/20/16 Unknown 10/20/16 Unknown Labs: Abnormal lab results 10/21/16 10/21/16 10/22/16 Range/Units 11:40 16:58 00:31 POC ABG pH (7.35-7.45) POC ABG pCO2 (35-45) POC ABG pO2 (80-105) POC Glucose 271 H 232 H 185 H (70-105) 10/22/16 10/22/16 Range/Units 04:52 05:43 POC ABG pH 7.476 H (7.35-7.45) POC ABG pCO2 54.6 H (35-45) POC ABG pO2 75 L (80-105) POC Glucose 126 H (70-105) Microbiology 10/15/16 Unknown Bronchoalveolar Lavage - Left Lower Lobe Respiratory Culture - Final 10/12/16 13:28 Tracheal Aspirate Sputum Culture - Final Methicillin Resist S. Aureus 10/04/16 04:05 Tracheal Aspirate Herpes Simplex Virus Culture - Final 10/03/16 09:20 Peripheral/Venous Blood Culture - Final NO GROWTH AFTER 5 DAYS 10/03/16 09:30 Picc Blood Culture - Final NO GROWTH AFTER 5 DAYS 10/03/16 09:06 Urine,Catheterized - Indwelling Catheter Urine Culture - Final 09/27/16 22:47 Peripheral/Venous Blood Culture - Final NO GROWTH AFTER 5 DAYS 09/27/16 22:47 Peripheral/Venous Blood Culture - Final NO GROWTH AFTER 5 DAYS 09/27/16 15:06 Peripheral/Venous Blood Culture - Final NO GROWTH AFTER 5 DAYS 09/27/16 14:40 Peripheral/Venous Blood Culture - Final NO GROWTH AFTER 5 DAYS 09/30/16 Unknown Tracheal Aspirate Sputum Culture - Final Active Medications Acetaminophen (Tylenol) 650 mg PO Q4H PRN PRN Reason: Pain MILD(1-3)/Fever >100.5/PALACIOS Last Admin: 10/07/16 18:13 Dose: 650 mg Albuterol/Ipratropium (Duoneb 0.5 Mg-3 Mg/3 Ml Soln) 1 ampul IH Q6HRT [facility] Last Admin: 10/22/16 07:58 Dose: 1 ampul Lipase/Protease/Amylase (Pancreaze Dr 10,500 Unit) 1 each FEEDTUBE PRN PRN PRN Reason: For Clogged Feeding Tube Arformoterol Tartrate (Brovana Nebu) 15 mcg IH Q12HRT [facility] Last Admin: 10/22/16 07:58 Dose: Not Given Aspirin (Aspirin) 325 mg PO QDAY [facility] Last Admin: 10/22/16 09:48 Dose: 325 mg Budesonide (Pulmicort) 0.5 mg IH Q12HRT [facility] Last Admin: 10/22/16 07:58 Dose: 0.5 mg Diphenhydramine HCl (Benadryl) 12.5 mg IV Q4H PRN PRN Reason: Itching Last Admin: 09/30/16 07:02 Dose: 12.5 mg Enoxaparin Sodium (Lovenox) 40 mg SUB-Q QDAY [facility] Last Admin: 10/22/16 09:20 Dose: 40 mg Famotidine (Pepcid) 20 mg PO BID [facility] Last Admin: 10/22/16 09:19 Dose: 20 mg Fentanyl (Duragesic) 50 mcg TD Q3D [facility] Folic Acid (Folvite) 1 mg PO QDAY [facility] Last Admin: 10/22/16 09:19 Dose: 1 mg Hydrophilic Ointment (Vaseline Lip Therapy) 1 applic TP Q2HR PRN PRN Reason: Dry Lips Propofol (Diprivan 10 Mg/Ml) 1,000 mg in 100 mls @ 3.045 mls/hr IV TITR SADAF; 5 MCG/KG/MIN PRN Reason: Protocol Last Admin: 10/22/16 04:09 Dose: 5 mcg/kg/min, 3.045 mls/hr Insulin Detemir (Levemir) 26 units SUB-Q DAILY [facility] Last Admin: 10/22/16 09:20 Dose: 26 units Insulin Human Regular (Novolin R) 0 units SUB-Q Q6HR [facility] PRN Reason: Protocol Last Admin: 10/22/16 11:41 Dose: 1 units Linezolid (Zyvox) 600 mg PO Q12HR [facility] PRN Reason: Protocol Last Admin: 10/22/16 09:20 Dose: 600 mg Multi-Ingred Cream/Lotion/Oil/Oint (Artificial Tears Ophth Oint) 1 applic OU Q4HR PRN PRN Reason: Dry Eye(s) Multivitamins (Centrum Liq) 1 ml PO QDAY [facility] Last Admin: 10/22/16 09:19 Dose: 1 ml Ondansetron HCl (Zofran) 4 mg IV Q8H PRN PRN Reason: Nausea And Vomiting Last Admin: 09/29/16 23:07 Dose: 4 mg Prednisone (Deltasone) 20 mg PO QDAY [facility] Stop: 10/23/16 10:01 Prednisone (Deltasone) 10 mg PO QDAY [facility] Stop: 10/24/16 10:01 Prednisone (Deltasone) 5 mg PO QDAY [facility] Stop: 10/25/16 10:01 Prednisone (Deltasone) 2.5 mg PO QDAY [facility] Stop: 10/26/16 10:01 Promethazine HCl (Phenergan) 25 mg VA Q6H PRN PRN Reason: Nausea And Vomiting Last Admin: 09/25/16 22:05 Dose: 25 mg Senna (Senokot) 17.2 mg PO DAILY [facility] Last Admin: 10/22/16 09:18 Dose: 17.2 mg Simple Syrup (Simple Syrup) 15 ml FEEDTUBE PRN PRN PRN Reason: Hypoglycemia Simple Syrup (Simple Syrup) 30 ml FEEDTUBE PRN PRN PRN Reason: Hypoglycemia Sodium Bicarbonate (Sodium Bicarbonate) 325 mg FEEDTUBE PRN PRN PRN Reason: For Clogged Feeding Tube Sodium Chloride (Sodium Chloride Flush Syringe 10 Ml) 10 ml IV PRN PRN PRN Reason: LINE FLUSH Tramadol HCl (Ultram) 50 mg PO Q4H PRN PRN Reason: Pain, Moderate (4-6) Last Admin: 10/06/16 21:54 Dose: 50 mg Valacyclovir HCl (Valtrex) 500 mg PO DAILY [facility] Last Admin: 10/22/16 09:19 Dose: 500 mg Zolpidem Tartrate (Ambien) 5 mg PO QHS PRN PRN Reason: Sleep
[2016-10-22 15:09] VITALS: BP 129/85
[2016-10-23] MEDS ORDERED: DELTASONE PO SCH (10:00)
[2016-10-24] MEDS ORDERED: DELTASONE PO SCH (10:00)
[2016-10-25] MEDS ORDERED: DELTASONE PO SCH (10:00)
[2016-10-26] MEDS ORDERED: DELTASONE PO SCH (10:00)
== END 2016-10-22 15:40 | DRG 469 ==
LOC: 3A 10:13 → 2B-SURG 15:22 → CC1 09-27 18:54
PROVIDERS: ADMIT Orthopaedic Surgery; ATTEND Internal Medicine
PROC: 0SRB0JA Replacement of Left Hip Joint with Synthetic Substitute, Uncemented, Open Approach (ICD-10-PCS; principal; 2016-09-25)
PROC: 4A033R1 Measurement of Arterial Saturation, Peripheral, Percutaneous Approach (ICD-10-PCS; 2016-09-27)
PROC: 30233N1 Transfusion of Nonautologous Red Blood Cells into Peripheral Vein, Percutaneous Approach (ICD-10-PCS; 2016-10-01)
PROC: 06HM33Z Insertion of Infusion Device into Right Femoral Vein, Percutaneous Approach (ICD-10-PCS; 2016-10-10)
PROC: 5A1955Z Respiratory Ventilation, Greater than 96 Consecutive Hours (ICD-10-PCS; 2016-10-15)
PROC: 0BH17EZ Insertion of Endotracheal Airway into Trachea, Via Natural or Artificial Opening (ICD-10-PCS; 2016-10-15)
PROC: 0B9F8ZX Drainage of Right Lower Lung Lobe, Via Natural or Artificial Opening Endoscopic, Diagnostic (ICD-10-PCS; 2016-10-15)
DX: M16.12 Unilateral primary osteoarthritis, left hip (principal); J96.01 Acute respiratory failure with hypoxia; N17.0 Acute kidney failure with tubular necrosis; J18.9 Pneumonia, unspecified organism; A41.89 Other specified sepsis; M87.052 Idiopathic aseptic necrosis of left femur; Z68.42 Body mass index [BMI] 45.0-49.9, adult; E87.0 Hyperosmolality and hypernatremia; N39.0 Urinary tract infection, site not specified; Y95 Nosocomial condition; D56.1 Beta thalassemia; E66.01 Morbid (severe) obesity due to excess calories; F17.210 Nicotine dependence, cigarettes, uncomplicated; J44.9 Chronic obstructive pulmonary disease, unspecified; D57.1 Sickle-cell disease without crisis; E87.6 Hypokalemia; Z71.3 Dietary counseling and surveillance
CPT/HCPCS: 36415; 36514; 36600; 62324; 64450; 71010; 71250; 74000; 74176; 76770; 80048; 80053; 80202; 81001; 81025; 82024; 82140; 82550; 82553; 82570; 82728; 82803; 82962; 83615; 83735; 83880; 83930; 84100; 84156; 84295; 84300; 84478; 84484; 85007; 85014; 85018; 85025; 85027; 85045; 85379; 85610; 85730; 86038; 86140; 86403; 86850; 86900; 86901; 86920; 87040; 87070; 87086; 87102; 87116; 87186; 87205; 87220; 88112; 88184; 88185; 88304; 88311; 89051; 93306; 94002; 94003; 94640; 94660; 94760; 99406; A4217; C1776; G8978-GP; G8979-GP; J0610; J0690; J0692; J0735; J1100; J1170; J1200; J1644; J1650; J1815; J1818; J1885; J1940; J1956; J2250; J2270; J2405; J2543; J2704; J2930; J2997; J3010; J3370; J3480; J7030; J7040; J7050; J7070; J7512; P9016

== ENCOUNTER 2018-01-27 10:12 | Outpatient (CLI) | payer MEDICARE ==
--- NOTE | 2018-01-27 13:28 | Fluoroscopy Report ---
FLUOROSCOPY PORTAGRAM RIGHT History: Malfunctioning right [id number]. Sickle cell disease. Findings: Informed consent was obtained. The right IJ [id number] was accessed by the [facility] nurse. Sterile technique was utilized. 24 fluoroscopic images were obtained of the right side of the chest during injection of Omnipaque contrast agent through the right [id number]. The images demonstrate extravasation of contrast from the [id number] tubing approximately 5 cm from its terminus. Extravasation is present in the right supraclavicular fossa. No occlusion. Impression: The right [id number] is fractured with extravasation of contrast agent as outlined above.
== END 2018-01-27 10:13 | disposition home or self-care (01) ==
LOC: FLUORO 10:12
PROVIDERS: ATTEND Internal Medicine Hematology & Oncology
DX: D57.1 Sickle-cell disease without crisis (principal); R68.89 Other general symptoms and signs; E66.9 Obesity, unspecified; E11.9 Type 2 diabetes mellitus without complications; J44.9 Chronic obstructive pulmonary disease, unspecified; Z87.891 Personal history of nicotine dependence; Z90.49 Acquired absence of other specified parts of digestive tract
CPT/HCPCS: 36598; Q9967